=== PATIENT | male | born 1935 | race Caucasian/White ===

== ENCOUNTER 2016-04-18 15:12 | Inpatient (IN) | payer MEDICARE ==
[~2016-04-18] VITALS: Ht 162.6 cm; Wt 84.2 kg
[~2016-04-18 15:12] MED LIST: /ISOS5TA OR; ACET-654 PO; ACET65TA OR; ADV500INH INH; ALBU17IN INH; ALLO300T PO; AMBI10TA OR; AMBI10TA PO; AMLO10TAB OR; ASPI81TA83 OR; ASPI81TA85 PO; ATIV0.5T OR; CALC600T3 PO; CALCITRIOL PO; CAND16TA OR; CLON0.3T OR; CLOP75TA2 PO; COMBAER6 INH; COZA100T OR; COZA50TA18 OR; DOCU10CA PO; DULCOLAX SUPPOSITORY PR; FEBU40TA PO; FLUC10TA PO; GABA-279 PO; GLIP5TAB2 OR; HEPA50VL SQ; INSUDET SC; ISOS1TAB13 PO; LASI40TA OR; LASI40TA PO; LATA5OPD OU; LEVE1INJ5 SC; LIPI20TA OR; LIPI20TA PO; LOPR1TAB6 PO; LOPR50TA OR; LOSA50TA20 PO; MAALSUS OR; MECL12.5 OR; METO25TAB PO; METO50TA2 PO; MILKSUS OR; NORC5TAB PO; NORV5TAB PO; OMEP20CA3 PO; OMEP20TA7 OR; OMEP40CA2 PO; PEG1POW PO; PLAV75TA2 OR; PRED5PAK PO; PROT1TAB2 PO; SPIR1CAP INH; STARLIX PO; TIMO5OPD OU; TIMOLOL MALEATE OU; TOPR50TA OR; TYLE325T5 PO; ULORIC PO; VITA50003 PO; VITAMIN D50000 UNT OR; VITMTA PO; VYTO10TA5 PO; [UNRECOGNIZED DRUG - CODE] OR; sodium bicarbonate PO; xalatan OU
[2016-04-18] MEDS ORDERED: MORPHINE 2 MG/ML 1ML SYRINGE As Ordered ONE (16:13)
[2016-04-18] MEDS ORDERED: IPRATROPIUM 0.5MG/ALBUTEROL 2.5MG INH SOL UD 3ML (DUONEB)(J7620) As Ordered ONE ×2 (16:26→18:06)
[2016-04-18 16:27] LABS: BASO % 0.1 % (0.0-1.0); EOS # 0.2 K/mm3 (0.0-0.50); EOS % 1.6 % (0.0-3.0); LARGE UNSTAINED CELL # 0.2 K/mm3 (0.0-0.4); LARGE UNSTAINED CELL % 1.5 % (0.0-4.0); LYMPH # 0.7 K/mm3 (1.5-4.5); LYMPH % 5.7 % (24.0-44.0); MEAN CORPUSCULAR HEMOGLOBIN 32.2 pg (27.0-33.0); MEAN CORPUSCULAR HGB CONC 30.6 g/dl (32.0-36.5); MEAN CORPUSCULAR VOLUME 105.3 fl (80.0-96.0); MONO # 0.7 K/mm3 (0.0-0.8); MONO % 5.4 % (0.0-5.0); NEUTROPHILS % 85.7 % (36.0-66.0); PLATELET COUNT, AUTOMATED 178 k/mm3 (150-450); RED CELL DISTRIBUTION WIDTH 15.4 % (11.5-14.5); WHITE BLOOD COUNT 12.8 K/mm3 (4.0-10.0)
--- NOTE | 2016-04-18 16:56 | REP ---
CT CHEST: HISTORY: Dyspnea. No contrast was utilized which decreases the sensitivity of the exam. Comparison chest CT 11/13/2004 from [facility]. The lack of intravenous contrast decreases the sensitivity of the examination. There is no gross mediastinal or hilar adenopathy or significant change from the prior exam. There are no pleural or pericardial effusions. The imaged upper abdomen shows cholelithiasis. Calcific atherosclerotic changes are seen in the thoracic aorta and aortic arch vessels. Bone window technique throughout the examination shows the osseous structures to be within normal limits for the patient's age of 80 years. Evaluation of the lung scott show respiratory motion artifact throughout the exam obscuring the fine detail. There is evidence of biapical pleural blebs, right greater than left, status quo. Asymmetric basilar densities are seen bilaterally and rather heavily and in conjunction with motion artifact; a significant nodule or abnormality opacity could be obscured. There is no evidence of a spiculated lesion. A small amount of soft tissue density is seen in the dependent portion of the trachea consistent with mucoid debris. IMPRESSION: 1. Chronic lung field findings and limitations as described above. 2. Cholelithiasis. 3. Other findings as described above. Signed by Fidel Pedroza DO 04/22/2016 10:19 A
--- NOTE | 2016-04-18 17:13 | REP ---
CT THORACIC SPINE WITHOUT CONTRAST: HISTORY: Trauma. There is no acute fracture or subluxation. There is no definite disc bulge or herniation. The spinal canal and the neural foramina are patent. Anterior osteophytes are present throughout the thoracic spine. IMPRESSION: There is no acute fracture or subluxation. Signed by Alin Luke MD 04/21/2016 08:13 A
[2016-04-18 17:25] LABS: CREATININE FOR GFR 3.99 MG/DL (0.70-1.30); GLOMERULAR FILTRATION RATE 15.5 (>35); POTASSIUM SERUM 4.2 MEQ/L (3.5-5.1)
--- NOTE | 2016-04-18 17:58 | REP ---
CT lumbosacral spine without contrast, 04/18/2016: Indication: Trauma. Comparison: CT abdomen and pelvis, 03/31/2016. Technique : 4 mm reconstructed contiguous spiral axial sections performed through the lumbosacral spine from mid body T12 through proximal to mid sacrum. Sagittal and coronal reconstructed images were also created. Findings: There is no fracture in the lumbosacral spine. Moderate to advanced degenerative disc changes noted at L4-5 with moderate disc space narrowing, vacuum disc phenomena, anterior and right lateral bridging marginal osteophytes. 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 There is a 3 mm anterolisthesis L4 on L5. There is no spondylolysis at this level. There is a fusiform distal abdominal aortic aneurysm, which measures 3.9 cm AP by 3.5 cm transverse dimension at the L4 level with tapering to the iliac bifurcation. Moderate diffuse atherosclerotic changes are noted in the aorta and in the mesenteric arteries, especially superior mesenteric artery, which may have a stent, and in the iliac arteries. There is no visualized retroperitoneal hematoma. There is a 3 cm cyst off the medial lower pole right kidney. Multiple layering calculi are present within the gallbladder lumen. Impression: 3.9 x 3.5 cm distal fusiform abdominal aortic aneurysm, with tapering to the iliac bifurcation. There is no retroperitoneal hematoma. No acute fracture in lumbosacral spine. Moderate to advanced degenerative disc changes at L4-5. There is 3 mm anterolisthesis L4 on L5. Cholelithiasis. Signed by Clementine Puente MD 04/19/2016 03:43 P
[2016-04-18] MEDS ORDERED: methylPREDNISolone INJ 125 MG/2 ML VIAL (J2930) As Ordered ONE (18:01)
[2016-04-18] MEDS ORDERED: FLUC200T2 PO (19:48)
[2016-04-18] MEDS ORDERED: CLOP75TA2 PO (19:48)
[2016-04-18] MEDS ORDERED: METO50TA2 PO (19:50)
[2016-04-18] MEDS ORDERED: GABA-279 PO (19:50)
[2016-04-18] MEDS ORDERED: VITMTA PO (19:50)
[2016-04-18] MEDS ORDERED: MIRA3350 PO (19:50)
[2016-04-18] MEDS ORDERED: PRED5TA PO (19:50)
[2016-04-18] MEDS ORDERED: METO5TAB2 PO (19:54)
[2016-04-18] MEDS ORDERED: zolPIDEM TARTRATE 10MG TAB PO PRN (20:30)
[2016-04-18] MEDS ORDERED: ACETAMINOPHEN TAB 650MG DOSE (2X325MG) PO PRN (20:30)
[2016-04-18] MEDS ORDERED: GLUCOSE 4 GM CHEW TABLET PO PRN (21:00)
[2016-04-18] MEDS: HumaLOG INSULIN (NovoLOG) PER UNIT SC SCH (21:00)
[2016-04-18] MEDS ORDERED: DEXTROSE 50% 50 ML SYRINGE IV PRN (21:00)
[2016-04-18] MEDS ORDERED: GLUCAGON FOR INJ 1 MG VIAL (J1610) SC PRN (21:00)
--- NOTE | 2016-04-18 21:28 | EDDOCDS ---
Nurse's Notes [facility] Name: Nnamdi Rodriguez Age: 80 yrs Sex: Male : 1935 Arrival Date: 04/18/2016 Time: 15:12 Bed 17 Private MD: Daisha Bass P Diagnosis: Chronic obstructive pulmonary disease with (acute) exacerbation;Contusion of back wall of thorax;Abdominal aortic aneurysm, without rupture Presentation: 04/18 15:14 Presenting complaint: Patient states: states hemodialysis patient and developed SOB jmk during treatment today. Adult Sepsis Screening: The patient does not have new or worsening altered mentation. Patient's respiratory rate is less than 22. Systolic blood pressure is greater than 100. Patient has a qSOFA score of 0- Negative Sepsis Screen. Suicide/Homicide risk assessment- the patient denies having any suicidal and/or homicidal ideations and does not present with any other emotional, behavioral or mental health complaints. Status: Patient is not a creative services specialist or dependent. Transition of care: patient was not received from another setting of care. 15:14 Acuity: SUJEY Level 3 [facility] 15:14 Method Of Arrival: Ambulance [facility] Triage Assessment: 15:22 General:. [facility] Historical: - Allergies: no known allergies; - Home Meds: 1. atorvastatin 20 mg oral tab 1 tab once daily (Last dose: 04/17/2016) 2. polyethylene glycol 3350 17 gram oral pwpk 1 packet once daily 3. prednisone 10 mg Oral tab once daily 4. fluconazole 100 mg Oral tab 1 tab once daily 5. gabapentin 100 mg Oral tab twice a day 6. clopidogrel 75 mg oral tab 7. hydrocodone-acetaminophen 5-325 mg Oral tab every 6 hours 8. zolpidem 10 mg Oral tab 1 tab once daily 9. atorvastatin 20 mg oral tab 1 tab once daily 10. Augmentin 875-125 mg Oral tab 1 tab every 12 hours 11. Uloric 40 mg oral tab 1 tab once daily 12. pantoprazole 40 mg oral TbEC 1 tab 2 times per day 13. metoprolol tartrate 50 mg Oral tab 1 tab 2 times per day 14. Doc-Q-Lace 100 mg oral cap 1 cap 2 times per day 15. doxycycline hyclate 100 mg Oral cap 1 cap every 12 hours 16. LEVEMIR twice a day 17. Spiriva with HandiHaler 18 mcg Inhl CpDv 1 cap once daily - PMHx: Chronic Renal Failure with dialysis; COPD; Diabetes - IDDM: uncontrolled; GERD; Hypercholesterolemia; Hypertension; [place]; - PSHx: cardiac stents.; Dialysis Graft Construction, Arm; - Social history: Smoking status: Patient states former smoker of tobacco. No barriers to communication noted, The patient speaks fluent Pashto. - Family history: Not pertinent. - : The pt / caregiver states he / she is not on anticoagulants. Home medication list is obtained from patients' pharmacy. - Exposure Risk Screening:: None identified. Screenin:26 Screening information is obtained from the patient. Fall risk: At risk due to age. jmk Assistance ADL's: Requires assistance with housework, assistance is provided by. Abuse/DV Screen: The patient / caregiver reports he/she is:. Nutritional screening: No deficits noted. Advance Directives: Currently, there is a health care proxy, marcos rodriguez, daughter. There is an active DNR order There is no living will. There is no Power of Field Education Coordinator. home support is adequate. Assessment: 15:26 General: Appears in no apparent distress, appears unkempt. responses gruffly spoken. jmk Did receive neb en route. reports sputum as dark batista in color. Speech is uninterrupted by resp effort. Decreased breath sounds bilaterally. No peripheral edema noted. Obese abdomen that is non distended with bowel sounds present x 4.Monitor is SR without ectopy.. Cardiovascular: Capillary refill < 3 seconds Clubbing of nail beds Heart tones S1 S2 present Edema is 1+ to left ankle and right ankle Chest pain is denied. Respiratory: Airway is patent Respiratory effort is even, unlabored, Respiratory pattern is regular, Breath sounds are diminished in left posterior lower lobe and right posterior lower lobe. 15:32 General: Appears Harsh congested cough noted that is presently non productive. dialysis jmk graft with + thrill to left upper arm. dressing intact over recent access.. 16:52 General: Appears Overall presentation unchanged. without work of breathing.. decreased jmk breath sounds bilaterally persist. Monitor is sr. Presently with sao2 95% 2lnc. denies pain. 18:07 General: Appears diet provided and is receptive. resistant to potential discharge.. jmk 18:55 General: Appears diet provided and taken fair. ambulated short distance. gait unsteady jmk with walker and fatigues with activity. Repeats that he does not feel comfortable with potential discharge. Maintained sat of 91% with 2 l nc during physical activity. provider aware.. 19:23 General: Appears in no apparent distress, comfortable, Behavior is appropriate for age, kmg1 Sitting in chair in room. Respiratory: Airway is patent Respiratory effort is even, unlabored, Respiratory pattern is regular, symmetrical. 19:36 General: Assisted patient back to stretcher per his request. kmg1 20:58 General: Appears in no apparent distress, unkempt, Behavior is appropriate for age, jo3 cooperative. General: Awaiting admission to [address] [place] [address] at this time. Aware of plan of care . Neurological: Level of Consciousness is awake, alert, Oriented to person, place, time. Cardiovascular: Chest pain is denied. Respiratory: Airway is patent Respiratory effort is even, unlabored, Respiratory pattern is regular, symmetrical. 21:21 Reassessment: Patient appears in no apparent distress at this time. Resting quietly on kmg1 stretcher. Ready for move to floor. Vital Signs: 15:23 BP 129 / 59 RA Sitting (auto/reg); Pulse 92; Resp 16; Temp 99.3(TE); Pulse Ox 99% on jrd R/A; Weight 86.18 kg (R); Height 5 ft. 4 in. (162.56 cm) (R); Pain 2/10; 15:36 Pulse 64 MON; jo3 18:50 BP 107 / 45 (auto/); jo3 18:50 Pulse 90 MON; Pulse Ox 79% ; jo3 19:56 Pulse Ox 95% ; jo3 20:47 Pulse 90 MON; jo3 20:57 BP 133 / 60; Pulse 88; Resp 18; Temp 99.2(TE); Pulse Ox 95% ; jo3 21:21 BP 115 / 64; Pulse 86; Resp 18; Pulse Ox 96% on 2 lpm NC; kmg1 15:23 Body Mass Index 32.61 (86.18 kg, 162.56 cm) jrd 15:23 Pain in the feet jrd Vitals: 21:01 Log In Time N/A - ambulance arrival. jo3 ED Course: 15:13 Patient visited by Angela Quintanilla, Animal Caregiver. lbd 15:13 Daisha Bass is Private Physician. lbd 15:13 Patient moved to Waiting lbd 15:14 Patient moved to 17 lbd 15:15 Triage Initiated jmk 15:21 Nando Rogers MD is Attending Physician. br1 15:24 Patient visited by Jonathan Murphy PCA. jrd 15:26 The patient / caregiver is instructed regarding the plan of care and ED course. Cardiac jmk monitor on. 15:49 Patient visited by Nando Rogers MD. br1 16:03 B-Type Natiuretic Peptide Sent. jmk 16:03 Basic Metabolic Profile Sent. jmk 16:03 CBC with Diff Sent. jmk 16:03 Cardiac Injury Profile Sent. jmk 16:03 Troponin Sent. jmk 16:44 -Influenza A&B Rapid Antigen - Nose Sent. jmk 16:54 Patient visited by Grady Tao,PARRIS. jmk 17:02 CT Chest Without Contrast Returned. EDMS 17:45 Patient visited by Nando Rogers MD. br1 17:50 CT Spine,Thoracic W/o Contrast Returned. EDMS 18:04 [facility] Payment Agreement was scanned into [employer] and attached to record. zo 18:20 Patient visited by Grady Tao,PARRIS. jmk 18:38 CT Spine, Lumbar W/o Contrast Returned. EDMS 19:07 Patient visited by Jaspal Floyd PCA. kb5 19:08 Carin Maradiaga, RN is Primary Nurse. kmg1 19:25 Patient visited by Carin Maradiaga, PARRIS. kmg1 19:33 Dottie Suggs is Hospitalizing Provider. br1 20:06 Patient visited by Jaspal Floyd PCA. kb5 20:58 Patient visited by Paola Hood RN. jo3 20:59 Inserted saline lock: 20 gauge in right antecubital area Inserted prior to this PARRIS reyes giving care. No procedures done that require assistance. 21:01 Patient visited by Paola Hood RN. jo3 21:02 Patient visited by Jaspal Floyd PCA. kb5 Administered Medications: 16:40 Drug: Albuterol-Ipratropium 3 ml [ipratropium-albuterol 0.5 mg-3 mg(2.5 mg base)/3 mL rs5 nebulization soln (3 mL)] Route: Inhalation; 16:44 Not Given (denies pain presently): morphine 2 mg IVP once; prn pain k 18:06 Drug: Solu-MEDROL 125 mg [Solu-Medrol 500 mg intravenous solution (125 mg)] Route: IVP; [facility] Site: right antecubital; 18:12 Drug: Albuterol-Ipratropium 3 ml [ipratropium-albuterol 0.5 mg-3 mg(2.5 mg base)/3 mL cs15 nebulization soln (3 mL)] Route: Inhalation; RT: 16:40 Initial Med Neb Given as ordered Patient was instructed and evaluated on procedure rs5 Patient tolerated procedure well without adverse effect. Respiratory: Respiratory effort is even, unlabored, Respiratory pattern is regular symmetrical, Breath sounds are diminished bilaterally. 18:12 Subsequent Med Neb Given as ordered. Respiratory: Breath sounds with rhonchi in left cs15 upper lobe and left lower lobe Breath sounds are diminished bilaterally. Order Results: Lab Order: B-Type Natiuretic Peptide; SPEC'M 04/18/16 16:01 Test: BRAIN NATRIURETIC PEPTIDE; Value: 398; Range: <100; Abnormal: Above high normal; Units: PG/ML; Status: F Lab Order: Basic Metabolic Profile; SPEC'M 04/18/16 16:42 Test: GLUCOSE, FASTING; Value: 147; Range: 83-110; Abnormal: Above high normal; Units: MG/DL; Status: F Test: BLOOD UREA NITROGEN; Value: 22; Range: 7-18; Abnormal: Above high normal; Units: MG/DL; Status: F Test: CREATININE FOR GFR; Value: 3.99; Range: 0.70-1.30; Abnormal: Above high normal; Units: MG/DL; Status: F Test: GLOMERULAR FILTRATION RATE; Value: 15.5; Range: >35; Abnormal: Below low normal; Status: F Test: SODIUM LEVEL; Value: 136; Range: 136-145; Units: MEQ/L; Status: F Test: POTASSIUM SERUM; Value: 4.2; Range: 3.5-5.1; Units: MEQ/L; Status: F Test: CHLORIDE LEVEL; Value: 100; Range: 98-107; Units: MEQ/L; Status: F Test: CARBON DIOXIDE LEVEL; Value: 22; Range: 21-32; Units: MEQ/L; Status: F Test: ANION GAP; Value: 14; Range: 8-16; Units: MEQ/L; Status: F Test: CALCIUM LEVEL; Value: 9.0; Range: 8.8-10.2; Units: MG/DL; Status: F Test Note: ; Units are mL/min/1.73 m2 Chronic Kidney Disease Staging per NKF: Stage I & II GFR >=60 Normal to Mildly Decreased Stage III GFR 30-59 Moderately Decreased Stage IV GFR 15-29 Severely Decreased Stage V GFR <15 Very Little GFR Left ESRD GFR <15 on CYBER SYSTEMS ENGINEER Lab Order: CBC with Diff; SPEC'M 04/18/16 16:01 Test: WHITE BLOOD COUNT; Value: 12.8; Range: 4.0-10.0; Abnormal: Above high normal; Units: K/mm3; Status: F Test: RED BLOOD COUNT; Value: 3.65; Range: 4.30-6.10; Abnormal: Below low normal; Units: M/mm3; Status: F Test: HEMOGLOBIN; Value: 11.8; Range: 14.0-18.0; Abnormal: Below low normal; Units: g/dl; Status: F Test: HEMATOCRIT; Value: 38.4; Range: 42.0-52.0; Abnormal: Below low normal; Units: %; Status: F Test: MEAN CORPUSCULAR VOLUME; Value: 105.3; Range: 80.0-96.0; Abnormal: Above high normal; Units: fl; Status: F Test: MEAN CORPUSCULAR HEMOGLOBIN; Value: 32.2; Range: 27.0-33.0; Units: pg; Status: F Test: MEAN CORPUSCULAR HGB CONC; Value: 30.6; Range: 32.0-36.5; Abnormal: Below low normal; Units: g/dl; Status: F Test: RED CELL DISTRIBUTION WIDTH; Value: 15.4; Range: 11.5-14.5; Abnormal: Above high normal; Units: %; Status: F Test: PLATELET COUNT, AUTOMATED; Value: 178; Range: 150-450; Units: k/mm3; Status: F Test: NEUTROPHILS %; Value: 85.7; Range: 36.0-66.0; Abnormal: Above high normal; Units: %; Status: F Test: LYMPH %; Value: 5.7; Range: 24.0-44.0; Abnormal: Below low normal; Units: %; Status: F Test: MONO %; Value: 5.4; Range: 0.0-5.0; Abnormal: Above high normal; Units: %; Status: F Test: EOS %; Value: 1.6; Range: 0.0-3.0; Units: %; Status: F Test: BASO %; Value: 0.1; Range: 0.0-1.0; Units: %; Status: F Test: LARGE UNSTAINED CELL %; Value: 1.5; Range: 0.0-4.0; Units: %; Status: F Test: NEUTROPHILS #; Value: 11.0; Range: 1.8-7.7; Abnormal: Above high normal; Units: K/mm3; Status: F Test: LYMPH #; Value: 0.7; Range: 1.5-4.5; Abnormal: Below low normal; Units: K/mm3; Status: F Test: MONO #; Value: 0.7; Range: 0.0-0.8; Units: K/mm3; Status: F Test: EOS #; Value: 0.2; Range: 0.0-0.50; Units: K/mm3; Status: F Test: BASO #; Value: 0.0; Range: 0.0-0.2; Units: K/mm3; Status: F Test: LARGE UNSTAINED CELL #; Value: 0.2; Range: 0.0-0.4; Units: K/mm3; Status: F Lab Order: Cardiac Injury Profile; SPEC'M 04/18/16 16:42 Test: CPK CREATINE PHOSPHOKINASE; Value: 45; Range: 39-308; Units: U/L; Status: F Test: CK-MB VALUE MASS; Value: 1.0; Range: 0.0-3.6; Units: NG/ML; Status: F Test: MB/CK RELATIVE INDEX; Value: 2.22; Range: < OR =4; Status: F Test Note: ; DIAGNOSIS CRITERIA MMB ng/ml Relative Index (RI) NON-AMI < or = 5 N/A WORKMAN ZONE > 5 < or = 4 AMI > 5 > 4 Lab Order: Troponin; SPEC'M 04/18/16 16:42 Test: TROPONIN I; Value: 0.02; Range: < 0.10; Units: NG/ML; Status: F Test Note: ; Troponin I Reference Interval for [employer] [place] LOCI: 99th Percentile= 0.00-0.045 ng/ml Risk Stratification: <= 0.10 ng/ml Decreased Risk for Adverse Clinical Events. 0.10-1.50 ng/ml Increased Risk for Adverse Clinical Events. Evaluation of additional criterion and/or repeat testing in 2-6 hours is suggested to rule out myocardial damage. >= 1.50 ng/ml Indicative of Myocardial Injury. Lab Order: -Influenza A&B Rapid Antigen - Nose; SPEC'M 04/18/16 16:40 Test: INFLUENZA A RAPID SCR by ICA; Value: INFLUENZA A RESULTS NEGATIVE; Status: F Test: INFLUENZA A RAPID SCR by ICA; Value: Comments:; Status: F Test: INFLUENZA B RAPID SCR by ICA; Value: INFLUENZA B RESULTS NEGATIVE; Status: F Test Note: ; The Influenza test is a direct rapid immunoassay for the qualitative detection of Influenza viral antigen. Cell culture (Viral Culture) testing should be considered to confirm NEGATIVE results and to assist in detecting other viruses that can provide similar clinical symptoms. Please contact the lab within 24 hours ([phone]) if confirmatory testing is desired. Radiology Order: CT Chest Without Contrast Test: CT Chest Without Contrast REASON FOR EXAMINATION: Shortness of Breath; ; CT CHEST:; ; HISTORY: Dyspnea.; ; No contrast was utilized which decreases the sensitivity of the exam.; ; Comparison chest CT 11/13/2004 from [facility].; ; The lack of intravenous contrast decreases the sensitivity of the examination.; There is no gross mediastinal or hilar adenopathy or significant change from the; prior exam. There are no pleural or pericardial effusions. The imaged upper; abdomen shows cholelithiasis. Calcific atherosclerotic changes are seen in the; thoracic aorta and aortic arch vessels. Bone window technique throughout the; examination shows the osseous structures to be within normal limits for the; patient's age of 80 years.; ; Evaluation of the lung scott show respiratory motion artifact throughout the; exam obscuring the fine detail. There is evidence of biapical pleural blebs,; right greater than left, status quo. Asymmetric basilar densities are seen; bilaterally and rather heavily and in conjunction with motion artifact; a; significant nodule or abnormality opacity could be obscured. There is no evidence; of a spiculated lesion. A small amount of soft tissue density is seen in the; dependent portion of the trachea consistent with mucoid debris.; ; IMPRESSION:; 1. Chronic lung field findings and limitations as described above.; 2. Cholelithiasis.; 3. Other findings as described above.; ; Unreviewed; Radiology Order: CT Spine,Thoracic W/o Contrast Test: CT Spine,Thoracic W/o Contrast REASON FOR EXAMINATION: Trauma; ; CT THORACIC SPINE WITHOUT CONTRAST:; ; HISTORY: Trauma.; ; There is no acute fracture or subluxation. There is no definite disc bulge or; herniation. The spinal canal and the neural foramina are patent. Anterior; osteophytes are present throughout the thoracic spine.; ; IMPRESSION:; There is no acute fracture or subluxation.; ; Unreviewed; Radiology Order: CT Spine, Lumbar W/o Contrast Test: CT Spine, Lumbar W/o Contrast REASON FOR EXAMINATION: Trauma; CT lumbosacral spine without contrast, 04/18/2016:; ; Indication: Trauma.; ; Comparison: CT abdomen and pelvis, 03/31/2016.; ; Technique : STIR reconstructed contiguous spiral axial sections performed; through the lumbosacral spine from mid body T12 through proximal to mid sacrum.; Sagittal and coronal reconstructed images were also created.; ; Findings: There is a fracture in the lumbosacral spine. Moderate to advanced; degenerative disc changes noted L4-5 with moderate disc space narrowing, vacuum; disc phenomena, anterior and right lateral bridging marginal osteophytes. There; is moderate to advanced bilateral facet osteoarthritis at this level. There is a; 3 mm anterolisthesis L4 on L5. There is no spondylolysis at this level.; ; There is a fusiform distal abdominal aortic aneurysm, which measures 3.9 cm AP by; 3.5 cm transverse dimension at the L4 level with tapering to the iliac; bifurcation. Moderate diffuse atherosclerotic changes are noted in the aorta and; in the mesenteric arteries, especially superior mesenteric artery and in the; iliac arteries. There is no visualized retroperitoneal hematoma.; ; There is a 3 cm cyst off the medial lower pole right kidney. Multiple layering; calculi are present within the gallbladder lumen.; ; Impression:; 3.9 x 3.5 cm distal fusiform abdominal aortic aneurysm, tapering to the iliac; bifurcation. There is no retroperitoneal hematoma. No acute fracture.; ; Moderate to advanced degenerative disc changes at L4-5. There is 3 mm; anterolisthesis L4 on L5.; ; Cholelithiasis.; ; ; ; ; Unreviewed; Outcome: 19:33 Decision to Hospitalize by Provider. br1 20:59 Discharge Assessment: Patient awake, alert and oriented x 3. No cognitive and/or jo3 functional deficits noted. Patient verbalized understanding of disposition instructions. patient administered narcotics - no. The following High Risk Discharge criteria are identified: None. Admitted to Med/Surg accompanied by tech, via stretcher, with chart. Condition: stable. 21:01 CT Study completed. Property :Personal belongings accompany Pt. jo3 21:27 Patient left the ED. kmg1 Signatures: Dispatcher [employer] EDMS Angela Quintanilla, Animal Caregiver Unit lbd Carin Maradiaga, RN RN km Grady Tao,PARRIS RN Paola Painting RN RN jo3 Chuy Saavedra Kristopher, CHILD CARE TEAM LEAD CHILD CARE TEAM LEAD kb5 Nando Rogers MD MD br1 Kory Lloyd,RT RT rs5 Jonathan Murphy, CHILD CARE TEAM LEAD CHILD CARE TEAM LEAD d Kei Jordan,RT RT cs15 Corrections: (The following items were deleted from the chart) 20:58 18:50 BP 133 / 60; Pulse 88bpm; Resp 18bpm; Pulse Ox 95%; Temp 99.2F Temporal; jo3 jo3 MTDD
--- NOTE | 2016-04-18 21:28 | EDDOCDS ---
Physician Documentation [facility] Name: Nnamdi Rodriguez Age: 80 yrs Sex: Male : 1935 Arrival Date: 04/18/2016 Time: 15:12 Bed 17 Private MD: Daisha Bass P Disposition: 04/18/16 19:33 Hospitalization ordered by Dottie Suggs for Inpatient Admission. Preliminary diagnosis are Chronic obstructive pulmonary disease with (acute) exacerbation, Contusion of back wall of thorax, Abdominal aortic aneurysm, without rupture. - Bed requested for 5 [place]. - Status is Inpatient Admission. kmg1 - Condition is Stable. - Problem is new. - Symptoms are unchanged. Historical: - Allergies: no known allergies; - Home Meds: 1. atorvastatin 20 mg oral tab 1 tab once daily (Last dose: 04/17/2016) 2. polyethylene glycol 3350 17 gram oral pwpk 1 packet once daily 3. prednisone 10 mg Oral tab once daily 4. fluconazole 100 mg Oral tab 1 tab once daily 5. gabapentin 100 mg Oral tab twice a day 6. clopidogrel 75 mg oral tab 7. hydrocodone-acetaminophen 5-325 mg Oral tab every 6 hours 8. zolpidem 10 mg Oral tab 1 tab once daily 9. atorvastatin 20 mg oral tab 1 tab once daily 10. Augmentin 875-125 mg Oral tab 1 tab every 12 hours 11. Uloric 40 mg oral tab 1 tab once daily 12. pantoprazole 40 mg oral TbEC 1 tab 2 times per day 13. metoprolol tartrate 50 mg Oral tab 1 tab 2 times per day 14. Doc-Q-Lace 100 mg oral cap 1 cap 2 times per day 15. doxycycline hyclate 100 mg Oral cap 1 cap every 12 hours 16. LEVEMIR twice a day 17. Spiriva with HandiHaler 18 mcg Inhl CpDv 1 cap once daily - PMHx: Chronic Renal Failure with dialysis; COPD; Diabetes - IDDM: uncontrolled; GERD; Hypercholesterolemia; Hypertension; RI; - PSHx: cardiac stents.; Dialysis Graft Construction, Arm; - Social history: Smoking status: Patient states former smoker of tobacco. No barriers to communication noted, The patient speaks fluent Andorran. - Family history: Not pertinent. - : The pt / caregiver states he / she is not on anticoagulants. Home medication list is obtained from patients' pharmacy. - Exposure Risk Screening:: None identified. Vital Signs: 04/18 15:23 BP 129 / 59 RA Sitting (auto/reg); Pulse 92; Resp 16; Temp 99.3(TE); Pulse Ox 99% on jrd R/A; Weight 86.18 kg / 189.99 lbs (R); Height 5 ft. 4 in. (162.56 cm) (R); Pain 2/10; 15:36 Pulse 64 MON; jo3 18:50 BP 107 / 45 (auto/); jo3 18:50 Pulse 90 MON; Pulse Ox 79% ; jo3 19:56 Pulse Ox 95% ; jo3 20:47 Pulse 90 MON; jo3 20:57 BP 133 / 60; Pulse 88; Resp 18; Temp 99.2(TE); Pulse Ox 95% ; jo3 21:21 BP 115 / 64; Pulse 86; Resp 18; Pulse Ox 96% on 2 lpm NC; kmg1 15:23 Body Mass Index 32.61 (86.18 kg, 162.56 cm) jrd 15:23 Pain in the feet jrd MDM: 15:50 Analytical Sciences Director/Pulse Ox/q 30 min VS ordered. br1 15:50 IV Saline Lock ordered. br1 15:50 Rhythm Strip to chart ordered. br1 15:50 Undress patient appropriately for examination ordered. br1 15:51 Albuterol-Ipratropium 3 ml Inhalation once ordered. br1 15:51 Call Respiratory ordered. br1 15:51 ECG WITH READING ER PHYS+CARDIAG ordered. EDMS 15:52 B-Type Natiuretic Peptide Ordered. EDMS 15:52 Basic Metabolic Profile Ordered. EDMS 15:52 CBC with Diff Ordered. EDMS 15:52 Cardiac Injury Profile Ordered. EDMS 15:52 Troponin Ordered. EDMS 15:52 morphine 2 mg IVP once; prn pain ordered. br1 15:52 CT Chest Without Contrast Ordered. EDMS 15:52 CT Spine,Thoracic W/o Contrast Ordered. EDMS 15:52 CT Spine, Lumbar W/o Contrast Ordered. EDMS 16:07 Call Respiratory complete. lbd 16:38 CBC with Diff Reviewed. br1 16:38 -Influenza A&B Rapid Antigen - Nose Ordered. EDMS 17:12 REGULAR+DIET ordered. EDMS 17:21 Financial registration complete. zo 17:36 B-Type Natiuretic Peptide Reviewed. br1 17:36 Basic Metabolic Profile Reviewed. br1 17:36 Cardiac Injury Profile Reviewed. br1 17:36 Troponin Reviewed. br1 17:36 -Influenza A&B Rapid Antigen - Nose Reviewed. br1 17:36 CT Chest Without Contrast Reviewed. br1 17:45 [facility] Pulse Oximetry ordered. br1 17:57 Albuterol-Ipratropium 3 ml Inhalation once ordered. br1 17:57 Solu-MEDROL 125 mg IVP once ordered. br1 18:04 [facility] Payment Agreement was scanned into [employer] and attached to record. zo 18:54 BED REQUEST+ADM ordered. EDMS 20:24 COMPLETE BLOOD COUNT Ordered. EDMS 20:24 BASIC METABOLIC PROFILE Ordered. EDMS 20:25 PHYSICAL THERAPY EVAL & TREAT ordered. EDMS 20:26 Admission / Observation Status ordered. EDMS 20:26 CONSISTENT CARBOHYDRATES ordered. EDMS 20:41 LACTIC ACID LEVEL, LACTATE Ordered. EDMS 20:41 C REACTIVE PROTEIN QUANTITATIV Ordered. EDMS 20:42 URINALYSIS Ordered. EDMS 20:42 BLOOD CULTURES Ordered. EDMS 20:42 BLOOD CULTURES Ordered. EDMS 20:42 SPUTUM CULTURE AND GRAM STAIN Ordered. EDMS 20:47 C REACTIVE PROTEIN QUANTITATIV Ordered. EDMS 20:47 FOLATE Ordered. EDMS Administered Medications: 16:40 Drug: Albuterol-Ipratropium 3 ml [ipratropium-albuterol 0.5 mg-3 mg(2.5 mg base)/3 mL rs5 nebulization soln (3 mL)] Route: Inhalation; 16:44 Not Given (denies pain presently): morphine 2 mg IVP once; prn pain jmk 18:06 Drug: Solu-MEDROL 125 mg [Solu-Medrol 500 mg intravenous solution (125 mg)] Route: IVP; k Site: right antecubital; 18:12 Drug: Albuterol-Ipratropium 3 ml [ipratropium-albuterol 0.5 mg-3 mg(2.5 mg base)/3 mL cs15 nebulization soln (3 mL)] Route: Inhalation; Signatures: Dispatcher [employer] EDMS Angela Quintanilla, Director And Professor Unit steward health care system Carin Maradiaga RN RN aurelia Grady Tao RN Lydia Elizabeth, RN Chuy eBnitez Brian, MD MD br1 Kory Lloyd RT rs5 Kei Jordan RT cs15 The chart was reviewed and I authenticate all verbal orders and agree with the evaluation and treatment provided.Corrections: (The following items were deleted from the chart) 20:44 20:42 FOLATE ordered. EDMS EDMS 20:45 20:45 C REACTIVE PROTEIN QUANTITATIV ordered. EDMS EDMS 20:45 20:45 C REACTIVE PROTEIN QUANTITATIV ordered. EDMS EDMS 20:45 20:45 FOLATE ordered. EDMS EDMS 20:45 20:45 FOLATE ordered. EDMS EDMS Attachments: 18:04 [facility] Payment Agreement zo MTDD
[2016-04-18 22:00] VITALS: BP 121/85
[2016-04-18] MEDS ORDERED: AZITHROMYCIN INJ 500 MG, VIAL MATE ADAPTER 1 EACH in D5W 250 ML IV SCH (22:00)
[2016-04-18] MEDS ORDERED: cefTRIAXone SOD 2 GM in D5W MINI-BAG PLUS 50 ML IV SCH (23:00)
--- NOTE | 2016-04-18 23:05 | HPE ---
DATE OF ADMISSION: 04/18/2016 PRIMARY CARE PROVIDER: Dr. Daisha Bass OUTPATIENT RADIO INSTALLER AUTOMOBILE: Dr. Bass CHIEF COMPLAINT: Worsening generalized weakness. HISTORY OF THE PRESENT ILLNESS: The patient is an 80-year-old male with a past medical history significant for end-stage renal disease, on hemodialysis, congestive heart failure with an ejection fraction (EF) 55%, chronic obstructive pulmonary disease (COPD), history of coronary artery disease, status post stent, chronic anemia, hypertension, insulin-dependent diabetes, gastroesophageal reflux disease (GERD), hyperlipidemia, gout, presented to [facility] after dialysis due to worsening of generalized weakness. The patient was recently hospitalized from 03/31/2016 to 04/11/2016 for acute respiratory distress, and the patient has been on antibiotic and antifungal for his respiratory symptoms. He stated his respiratory symptoms showed improvement throughout whole hospitalization. However, his physical activity level has not returned to his baseline due to generalized weakness. After the discharge, the patient stated his physical condition started to deteriorate, and he became less and less active. He also noted to have increased chest congestion. His dialysis was scheduled on Thursday, and Thursday. Due to the weather, he missed dialysis on ; therefore, he had to catch up dialysis on Thursday, which is today. During dialysis, he barely tolerated the session, and even fell on the ground when he tried to get out of the car and he could not get out by himself. Therefore, the patient was sent from dialysis center to the [facility] for further evaluation. Per patient, the patient stated after discharge, he denies increased cough severity or frequency, still having intermittent cough with yellowish sputum. However, the amount of sputum production is much less than before. He has an appointment with a vascular surgeon for his right gangrenous toe, and he had an appointment on 05/05/2016 in [place]. ALLERGIES: No known allergies. HOME MEDICATIONS: - Tylenol 325 mg by mouth every 4 hours as needed - [place] 5/325 one tablet by mouth every 6 hours as needed - Combivent one puff inhalation four times a day - aspirin 81 mg by mouth daily - Lipitor 20 mg by mouth daily - calcium carbonate 600 mg by mouth three times a day - Plavix 75 mg by mouth daily - vitamin D 50,000 units by mouth every month - Uloric 40 mg by mouth daily - fluconazole 200 mg by mouth daily for a 10-day supply starting on 04/11/2016. - insulin Levemir 20 units subcu twice a day - metoclopramide 5 mg by mouth three times a day as needed for nausea or vomiting - metoprolol tartrate 50 mg by mouth twice a day - multivitamin one tablet by mouth daily - Protonix 40 mg by mouth twice a day - MiraLAX 17 grams by mouth daily - prednisone on a tapering dose - Ambien 10 mg by mouth nightly as needed for insomnia PAST MEDICAL HISTORY: History of end-stage renal disease, on hemodialysis on Thursday, and Thursday. Systolic congestive heart failure. COPD on chronic 2 liters. History of coronary artery disease, status post stent. Recent history of non-ST elevation myocardial infarction (non-STEMI) and ventricular tachycardia. Chronic anemia. Hypertension. Type 2 insulin dependent diabetes. Gastroesophageal reflux disease. Hyperlipidemia. Gout. Glaucoma. Insomnia. PAST SURGICAL HISTORY: Cardiac stents times six near the end 2015. Dialysis graft placement construction. SOCIAL HISTORY: The patient quit smoking 15 years ago. He used to smoke for 60 years. Quit drinking 26 years ago, drank half a dozen per day previously. Denies any recreational drug use. The patient lives by himself. REVIEW OF SYSTEMS: GENERAL: Denies any fever or chills. Has recent hospitalization, just discharged on 04/11/2016. The patient complains about persistent and worsening generalized weakness. HEENT: No vision change. No auditory changes. CARDIOVASCULAR: No chest pain. No palpitations. History of coronary artery disease, status post stent near the end of 2015. History of ventricular tachycardia and non-STEMI. RESPIRATORY: Still has intermittent cough with yellowish sputum. The patient has been treated with IV antibiotics and antifungal during the last hospitalization. Currently still feels significant chest congestion. GASTROINTESTINAL: No nausea, no vomiting, no abdominal pain, no diarrhea. MUSCULOSKELETAL: Continues to have color changes of the tip of the toe. The patient has a vascular surgeon, 05/05/2016, in [place]. NEUROLOGICAL: No new neurological changes. PHYSICAL EXAMINATION: VITAL SIGNS: Blood pressure 129/59, pulse is 92, respirations 16, temperature is 99.3, pulse is 99, weight is 86 kg, body height is 162.56 cm. GENERAL: Fatigued, pale. Alert and oriented times three. HEENT: Normocephalic, atraumatic. Extraocular motor grossly intact. CARDIOVASCULAR: Distant heart sounds. Positive S1, S2, regular rate. LUNGS: Decreased breath sounds bilaterally. No significant crackles or wheezes could be appreciated. ABDOMEN: Multiple ecchymosis from the previous anticoagulation injection site. Abdomen is soft, nontender, nondistended. Bowel sounds present. LOWER EXTREMITIES: Positive edema bilaterally. Positive chronic venous stasis changes. Also gangrenous change of the bilateral toes. NEUROLOGICAL: Sensation to fine touch grossly intact. Muscle strength 5/5. LABORATORY DATA: WBC is 12.8, hemoglobin 11.8, hematocrit 38.4, platelet count is 178. Sodium 136, potassium 4.2, chloride is 100, carbon dioxide 22, BUN 22, creatinine is 3.9 and GFR is 15.5. Fasting glucose 147. Calcium is 9. Total CK is 45. Troponin I is 0.02. BNP is 398. Influenza is negative. IMAGING STUDIES: Chest x-ray without contrast showed chronic lung field findings. CT of the lumbar spine without contrast shows a 3.9 x 3.5 cm distal abdominal aortic aneurysm. No acute fractures. No retroperitoneal hematoma. Moderate advanced degenerative disc changes at L4-5. CT of the thoracic spine without contrast showed no acute fracture or subluxation. ASSESSMENT AND PLAN: 1. Generalized weakness. The patient will be admitted to medical-surgical floor under inpatient status. The patient was just recently discharged from the hospital on 04/11/2016, and the patient has worsening in his physical condition and today the patient actually had mildly elevated white blood cells (WBC) and mild elevated of his temperature. The patient has continued to have colored sputum. The patient was on prednisone in the past; however, his white count is within normal range with a combination of change in lab and the vital signs, we will culture the patient to rule out infectious causes. The patient does have chronic obstructive pulmonary disease (COPD), and there is a possibility the patient may have COPD exacerbation, and the patient also experienced physical deconditioning after discharge due to suboptimal care at home. We will consult physical therapy to evaluate and to treat the patient tomorrow. Last time sputum culture was obtained during the last hospitalization, the patient showed yeast-like organism and Serratia. We will continue to follow the repeated sputum cultures. 2. End-stage renal disease, on hemodialysis. The patient's original schedule is on Thursday, and Thursday; however, the patient missed hemodialysis on , therefore, he had to catch up dialysis today, which is Thursday. Will consult Dr. Bonilla, the field enumerator, for his dialysis management. 3. History of chronic systolic congestive heart failure. The patient has been managed by hemodialysis. Currently, the patient still shows no sign of fluid overload. There is elevated BNP. We appreciate nephrology's assistance. 4. Insulin dependent diabetes. On Levemir and sliding scale. Continue consistent carbohydrate diet. 5. Gastroesophageal reflux disease. Continue Protonix. 6. History of myocardial infarction (PR). The patient is status post cardiac stent in the end of 2015. The patient is on aspirin and Plavix. 7. Insomnia. On Ambien. 8. Peripheral arterial disease. Pt has appointment with vascular surgeon in [facility] on 05/05/16. 9. Bilateral dry gangrene of toes. Stable. Consider wound care consult 8. Deep vein thrombosis (DVT) prophylaxis. On heparin. MTDD
[2016-04-18] MEDS: PANTOPRAZOLE 40MG TAB (PROTONIX) PO SCH (23:15)
[2016-04-18] MEDS: GABAPENTIN 100 MG CAP PO SCH (23:15)
[2016-04-18] MEDS: HEPARIN SOD (PORCINE) 5000 UNITS/ML VIAL SC SCH (23:15)
[2016-04-18] MEDS: METOPROLOL TART 50 MG TAB PO SCH (23:17)
[2016-04-19 06:00] VITALS: BP 125/72
[2016-04-19] MEDS: HEPARIN SOD (PORCINE) 5000 UNITS/ML VIAL SC SCH ×3 (06:05→21:20)
[2016-04-19 06:59] LABS: MEAN CORPUSCULAR HEMOGLOBIN 32.2 pg (27.0-33.0); MEAN CORPUSCULAR HGB CONC 30.7 g/dl (32.0-36.5); MEAN CORPUSCULAR VOLUME 104.9 fl (80.0-96.0); RED CELL DISTRIBUTION WIDTH 15.4 % (11.5-14.5); WHITE BLOOD COUNT 12.2 K/mm3 (4.0-10.0)
[2016-04-19 07:14] LABS: CALCIUM LEVEL 8.8 MG/DL (8.8-10.2); CREATININE FOR GFR 5.61 MG/DL (0.70-1.30); GLOMERULAR FILTRATION RATE 10.5 (>35); POTASSIUM SERUM 4.7 MEQ/L (3.5-5.1)
[2016-04-19] MEDS: HumaLOG INSULIN (NovoLOG) PER UNIT SC SCH ×4 (07:30→21:00)
--- NOTE | 2016-04-19 08:36 | ECGEPIP ---
Stationary ECG Study [facility] - ED Test Date: 2016-04-18 Pat Name: EVE GANN Department: Room: - Gender: M Comber Operator: mathew : 1935 Requested By: EDI Olmedo Order Number: [id number] Reading MD: Lauren Vernon Measurements Intervals [place] Rate: 94 P: 16 OR: 198 QRS: 15 QRSD: 86 T: 35 QT: 317 QTc: 398 Interpretive Statements SINUS RHYTHM NONSPECIFIC ST & T-WAVE ABNORMALITY SIMILAR 04/01/16 Electronically Signed On 04-19-2016 8:36:30 EST by Lauren Vernon
[2016-04-19] MEDS ORDERED: VANCOMYCIN HCL 1,000 MG, VIAL MATE ADAPTER 1 EACH in D5W 250 ML IV ONE (09:00)
[2016-04-19] MEDS: METOPROLOL TART 50 MG TAB PO SCH ×2 (09:00→21:21)
[2016-04-19 09:36] LABS: ABG HCO3 25.3 MEQ/L (22.0-26.0); ABG PARTIAL PRESSURE CO2 43.8 mmHg (35.0-45.0); ABG PARTIAL PRESSURE O2 77.8 mmHg (75.0-100.0); ABG STANDARD HCO3 24.4 MEQ/L (22.0-26.0); ABG TOTAL CO2 26.6 MEQ/L (23.0-31.0); ABG pH (ARTERIAL) 7.379 UNITS (7.350-7.450)
[2016-04-19] MEDS: FLUCONAZOLE 100 MG TAB PO SCH (10:22)
[2016-04-19] MEDS: ATORVASTATIN 20 MG TAB PO SCH (10:23)
[2016-04-19] MEDS: ASPIRIN 81 MG ENTERIC TAB PO SCH (10:23)
[2016-04-19] MEDS: MULTIVITAMINS/MINERALS THERAP 1 TAB PO SCH (10:23)
[2016-04-19] MEDS: CLOPIDOGREL 75 MG TAB PO SCH (10:23)
[2016-04-19] MEDS: FEBUXOSTAT 40 MG TABLET (ULORIC) PO SCH (10:23)
[2016-04-19] MEDS: PANTOPRAZOLE 40MG TAB (PROTONIX) PO SCH ×2 (10:24→21:21)
[2016-04-19] MEDS: GABAPENTIN 100 MG CAP PO SCH ×2 (10:24→21:21)
[2016-04-19] MEDS ORDERED: LIDOCAINE 1% SDV 5 ML VIAL SC ONE (12:00)
[2016-04-19] MEDS ORDERED: HEPARIN 1,000 UNITS/ML 10ML VIAL (FOR RADIOLOGY& DIALYSIS ONLY) IV ONE (12:00)
[2016-04-19] MEDS ORDERED: DARBEPOETIN 100 MCG/0.5 ML *DIALYSIS* SYRINGE (J0882) IV SCH (12:15)
--- NOTE | 2016-04-19 13:37 | CR ---
DATE OF CONSULTATION: 04/19/2016 REQUESTING PHYSICIAN: Dr. Suzie Gardner CONSULTING PHYSICIAN: Dr. Bonilla REASON FOR CONSULTATION: Management of end stage renal disease and hemodialysis. CHIEF COMPLAINT: Patient presented to the emergency room yesterday after falling in the parking lot right after hemodialysis and he complained of generalized weakness. HISTORY OF PRESENT ILLNESS: Mr. Nnamdi Rodriguez is an 80-year-old male with past medical history of end stage renal disease on hemodialysis. His regular schedule is Thursday, and Thursday, but he missed 's dialysis so he was being dialyzed yesterday. After his dialysis session, the patient was walking to his car. While he was trying to get into his car, he felt very weak and he fell backwards. The patient was brought to the emergency room. Images were done. There was no evidence of fracture. The patient reported generalized worsening weakness so the patient was admitted yesterday for deterioration of physical condition. The patient was also complaining of intermittent cough with yellowish phlegm so pneumonia is being ruled out. Of note, the patient was recently discharged from the hospital one week ago and during that admission he was treated for respiratory distress, fluid overload and pneumonia. The patient was seen by me today in the morning at the bedside. He was eating his breakfast. He otherwise does not have any complaints at this time, but he reports that he is very weak and it is very difficult for him to walk. PAST MEDICAL HISTORY: 1. History of end stage of renal disease on hemodialysis every Thursday, and Thursday. 2. History of chronic obstructive pulmonary disease (COPD), on home oxygen at 2 liters. 3. Chronic systolic congestive heart failure. 4. History of coronary artery disease, status post stent. 5. 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 6. Hypertension. 7. Diabetes mellitus type 2. 8. History of gout secondary to end stage renal disease. 9. Gastroesophageal reflux disease. 10. Gangrene of the bilateral lower extremities toes after a recent cardiac catheterization. PAST SURGICAL HISTORY: 1. Status post cardiac stents times six, the latest one done in 2015. 2. Status post AV graft placement for dialysis. ALLERGIES: No known drug allergies. CURRENT INPATIENT MEDICATIONS: - Cefepime - vancomycin - Tylenol as needed - aspirin 81 mg - atorvastatin 20 mg - Plavix 75 mg - Uloric 40 mg - fluconazole 200 mg - gabapentin 100 mg twice a day - heparin subcutaneous - metoprolol 50 mg twice a day - Zofran as needed - Protonix 40 mg twice a day - MiraLAX as needed - Ambien as needed for insomnia HOME MEDICATIONS: Are all reviewed and apart from the above mentioned medications they also include: - Combivent inhaler - calcium carbonate 600 mg three times a day - vitamin D FAMILY HISTORY: No significant family history of end stage renal disease requiring hemodialysis. SOCIAL HISTORY: The patient is a former smoker. He is a former drinker as well , he quit about 26 years ago. He denies any recreational drug use. The patient lives alone. REVIEW OF SYSTEMS: CONSTITUTIONAL: Patient reports feeling very weak and fatigued with inability to walk. EYES: He denies any recent blurry vision or change in the vision recently. ENT: He denies any ear discharge, dysphagia, odynophagia, sore throat. CARDIOVASCULAR: He denies any chest pain, palpitations. He does have history of coronary artery disease. RESPIRATORY: Patient reports cough and yellowish phlegm. Recently treated with IV antibiotics and antifungal during admission two weeks ago. GASTROINTESTINAL (GI): He denies any nausea, vomiting, pain, or constipation. MUSCULOSKELETAL: He continues to have weakness of the lower extremities and inability to walk. He also has gangrene of the bilateral toes after a recent cardiac catheterization procedure. CENTRAL NERVOUS SYSTEM (TRAFFIC COURT MAGISTRATE): He denies any history of strokes or seizures, but he does report weakness. HEMATOLOGIC/ONCOLOGIC: He reports history of anemia secondary to end stage renal disease. ENDOCRINE: He reports history of diabetes type 2. SKIN: The patient has dry gangrene of the bilateral toes. PSYCHIATRIC: He denies history of anxiety or depression. All other review of systems was found to be negative. PHYSICAL EXAM: GENERAL: Patient is awake, alert, oriented times three, sitting in the bed having his breakfast. VITAL SIGNS: Temperature 98.3 degrees Fahrenheit, blood pressure 126/72, pulse 70, respiratory rate 18, saturating 95% on room air. INTAKE AND OUTPUT: Urine output is not recorded. Weight on the bed scale is 91 kg today. HEAD AND NECK EXAM: Extraocular muscles intact. Pupils equally round and reactive to light. Neck is supple. There is no jugular venous distention. CARDIOVASCULAR: S1, S2. Regular rate. No murmur, rub or gallop. RESPIRATORY: Decreased breath sounds at the bases. No rales or rhonchi. ABDOMEN: Soft. Positive bowel sounds. Multiple bruises on the abdomen because of previous heparin injections. No organomegaly. EXTREMITIES: Patient has dry gangrene of the multiple toes and bilateral lower extremities and he also has 1+ edema of the bilateral lower extremities. CENTRAL NERVOUS SYSTEM: Patient has resting tremor of the right hand, otherwise his strength is 5/5. No focal neurological deficit was found at this time. SKIN: No ulcerations, but he does have dry skin and chronic venous stasis changes at the bilateral lower extremities and gangrene of the tip of the toes as mentioned above. PSYCHIATRIC: Normal mood and affect. LYMPH NODES: No significant cervical, axillary or inguinal lymphadenopathy. LAB REVIEW: CBC showed a WBC of 12.2, hemoglobin 10.8, and platelets of 174. ABG showed pH 7.37, PCO2 43, pO2 77.8, bicarbonate 25.3, oxygen saturation 95.6. BMP showed sodium 135, potassium 4.7, chloride 99, bicarbonate 22, BUN 41, creatinine 5.6, glucose 322, calcium 8.8. C-reactive protein was 9.8. MICROBIOLOGY: Blood cultures are pending. Influenza is negative. IMAGING: CAT scan of the chest was done today which showed chronic lung field findings, cholelithiasis. CAT scan of the lumbosacral spine showed fusiform abdominal aortic aneurysm which measured 3.9 x 3.5 cm. There was no acute fracture. CAT scan of the thoracic spine showed no acute fracture or subluxation. ASSESSMENT: 80-year-old male with past medical history of end stage renal disease on hemodialysis every Thursday, and Thursday, COPD, coronary artery disease, hypertension, diabetes mellitus type 2, gangrene of the bilateral lower extremity toes after recent cardiac catheterization. He was recently discharged from the hospital one week ago and now he is readmitted after a fall and weakness and inability to walk. PLAN: 1. Generalized weakness and recent fall. The patient has gangrene of the toes and he has been deconditioned. He was getting physical therapy inpatient and he was cleared by physical therapy and discharged, but now he fell again. He needs extensive physical therapy. Unfortunately, because of the gangrene of his toes, he does not maintain good balance and he needs a walker to walk around. The rest of the management is as per primary team and physical therapy. 2. Cough and phlegm. Patient was already treated with IV antibiotics and antifungal during recent hospitalization. His CAT scan is negative. He is being empirically treated at this time. If his cultures come back negative, I would recommend to stop the IV antibiotics. 3. End stage renal disease on hemodialysis. Patient's regular days are Thursday , , and Thursday. I would switch him back to his regular days and he will be dialyzed today. I will try to do ultrafiltration of about 2 liters as tolerated. 4. History of chronic systolic congestive heart failure. His volume status will be managed with hemodialysis, 2 liters of ultrafiltration with hemodialysis today. 5. Bilateral dry gangrene of the toes, stable at this time. He was already seen by podiatry and surgery before. No intervention is needed at this time. 6. Anemia and end stage renal disease. His hemoglobin is 10.8 today. I would give him a dose of Aranesp with hemodialysis today. 7. Hypertension. Continue current dose of metoprolol 50 mg by mouth twice a day. 8. Chronic gout secondary to end stage renal disease. Continue current dose of Uloric 40 mg by mouth daily. Thank you for involving us in the care of this patient. We shall be happy to follow the patient along with you tomorrow morning. LINDYD
[2016-04-19] MEDS: CHECK TO SEE IF PATIENT IS RECEIVING DIALYSIS TODAY AND REFER TO THE VANCOMYCIN ORDER XX SCH (16:00)
[2016-04-19] MEDS: NORCO, ANEXSIA 5/325MG TABLET (HYDROcodone/ACETAMINOPHEN) PO PRN (18:04)
[2016-04-19] MEDS: CEFEPIME HCL 1 GM in D5W MINI-BAG PLUS 50 ML IV SCH (19:15)
[2016-04-19 22:00] VITALS: BP 129/61
[2016-04-20] MEDS: HEPARIN SOD (PORCINE) 5000 UNITS/ML VIAL SC SCH ×3 (05:37→20:33)
[2016-04-20 06:00] VITALS: BP 154/74
[2016-04-20 06:53] LABS: MEAN CORPUSCULAR HEMOGLOBIN 31.9 pg (27.0-33.0); MEAN CORPUSCULAR HGB CONC 30.7 g/dl (32.0-36.5); RED CELL DISTRIBUTION WIDTH 15.7 % (11.5-14.5); WHITE BLOOD COUNT 15.6 K/mm3 (4.0-10.0)
[2016-04-20 07:12] LABS: CALCIUM LEVEL 8.6 MG/DL (8.8-10.2); CREATININE FOR GFR 4.42 MG/DL (0.70-1.30); GLOMERULAR FILTRATION RATE 13.8 (>35)
[2016-04-20] MEDS: ATORVASTATIN 20 MG TAB PO SCH (08:42)
[2016-04-20] MEDS: FLUCONAZOLE 100 MG TAB PO SCH (08:42)
[2016-04-20] MEDS: METOPROLOL TART 50 MG TAB PO SCH ×2 (08:42→20:32)
[2016-04-20] MEDS: PANTOPRAZOLE 40MG TAB (PROTONIX) PO SCH ×2 (08:42→20:33)
[2016-04-20] MEDS: ASPIRIN 81 MG ENTERIC TAB PO SCH (08:42)
[2016-04-20] MEDS: GABAPENTIN 100 MG CAP PO SCH ×2 (08:42→20:32)
[2016-04-20] MEDS: CLOPIDOGREL 75 MG TAB PO SCH (08:42)
[2016-04-20] MEDS: MULTIVITAMINS/MINERALS THERAP 1 TAB PO SCH (08:42)
[2016-04-20] MEDS: FEBUXOSTAT 40 MG TABLET (ULORIC) PO SCH (08:42)
[2016-04-20] MEDS: NORCO, ANEXSIA 5/325MG TABLET (HYDROcodone/ACETAMINOPHEN) PO PRN (08:43)
[2016-04-20] MEDS: HumaLOG INSULIN (NovoLOG) PER UNIT SC SCH ×4 (08:44→21:00)
[2016-04-20] MEDS ORDERED: VANCOMYCIN HCL 1,000 MG, VIAL MATE ADAPTER 1 EACH in D5W 250 ML IV SCH (09:15)
--- NOTE | 2016-04-20 11:15 | IPN ---
DATE: 04/19/2016 Time patient was seen was at 10:30. The patient seen and examined at the bedside. No acute events overnight. The patient looked somewhat drowsy this morning. However, he was easily arousable and the patient had a good meal in the morning. He ate everything for breakfast. However, he said he is very weak and drowsy and denies any fever or chills, any chest pain, trouble breathing, abdominal pain, nausea, vomiting, diarrhea or constipation. PHYSICAL EXAM: VITAL SIGNS: Temperature 98.3, pulse 70, respirations 20, blood pressure 175/72 , and oxygen was satting at 95% on room air. GENERAL: The patient is an obese, elderly male who was alert, awake, oriented times three and does not appear to be in distress, resting comfortably in bed with the head elevated at 30 degrees. HEENT: Normocephalic, atraumatic. Extraocular motor intact. Mucosa moist. Neck supple. No neck lymphadenopathy. CARDIOVASCULAR: Regular rate and rhythm. S1, S2. No murmurs, rubs or gallops. LUNGS: Clear to auscultate bilaterally. No rales, wheezes or rhonchi. ABDOMEN: Positive bowel sounds. Soft. Nontender. Nondistended. No peritoneal signs. No ecchymosis. EXTREMITIES: Shows healing eschar on bilateral toes. SKIN: Warm and dry. NEUROLOGIC: Cranial nerves II-XII intact. No focal neurological deficit. LABS: Labs were drawn on 04/19/2016 and showed WBC of 12.2, hemoglobin 10.8, hematocrit 35.1, with platelet count of 174, MCV 104.9. Sodium 135, potassium 4.7, chloride 99, bicarbonate 22, BUN 41, creatinine 5.61, GFR was 10.5, glucose 322. The patient had an ABG done that shows a pH of 7.37, pCO2 43, pO2 77, oxygen saturation 95% on room air. Accu-Chek glucose shows 211, 279. Blood culture times two shows no growth after two days. No new imaging. ASSESSMENT AND PLAN: 80-year-old male with past medical history of end stage renal disease on hemodialysis Thursday, , and Thursday, systolic heart failure, chronic obstructive pulmonary disease (COPD) on 2 liters of oxygen at home, coronary artery disease status post stents, non- ST elevation myocardial infarction and tachycardia recently, ventricular tachycardia, chronic anemia, hypertension, insulin dependent type 2 diabetes, gastroesophageal reflux disease (GERD), hyperlipidemia, gout, glaucoma, and insomnia who presented with: 1. Generalized weakness. The patient could not tolerate physical therapy. The patient did still have coughing and sputum production. Considering possibility for COPD exacerbation and will continue to monitor patient and continue physical therapy (PT). 2. End stage renal disease on hemodialysis on Thursday, and Thursday. Nephrology has been consulted. Will follow his recommendation. 3. Chronic systolic heart failure. Continue hemodialysis. 4. Insulin dependent type 2 diabetes. Continue Levemir sliding scale and carbohydrate consistent diet and finger sticks. 5. GERD. Continue Protonix. 6. History of myocardial infarction, non-STEMI, and ventricular tachycardia. Continue aspirin and Plavix. 7. Eschars of bilateral toes. Continue to monitor. Currently stable. 8. Insomnia. Continue Ambien. 9. Peripheral artery disease with eschars. Patient does have an appointment with vascular surgery in [place] on 05/05/2016. 10. Deep vein thrombosis prophylaxis, on subcutaneous heparin. DISPOSITION: Patient does have weakness and will continue physical therapy while patient is in the hospital and continue to monitor him. He did appear to be weaker today; however, he had a really good meal in the morning. The patient has been discussed with attending doctor, Dr. Gardner. My preceptor for this patient encounter was Dr. Suzie Gardner. The preceptor was physically present in the building during the encounter and was fully available. As needed, all aspects of the patient interview, examination, medical decision making process, and medical care plan development were reviewed and approved by the preceptor. The preceptor is aware and concurs with the plan as stated in the body of this note and will attest to such by his/her cosignature. I have both independently examined this patient as well as reviewed the note. I have discussed in detail with the resident the findings and plan of treatment as documented in the residents note. I will continue to follow the patient and offer further guidance to the patients care as necessary during this hospital stay. Suzie MONGE
[2016-04-20 14:00] VITALS: BP 135/64
[2016-04-20] MEDS: IPRATROPIUM 0.5MG/ALBUTEROL 2.5MG INH SOL UD 3ML (DUONEB)(J7620) NEB SCH ×2 (14:00→19:29)
[2016-04-20] MEDS ORDERED: ALBUTEROL SULFATE 2.5 MG/0.5 ML INH NEB SOLN NEB PRN (14:30)
[2016-04-20] MEDS: guaiFENesin ER 600 MG TAB PO SCH ×2 (15:26→20:32)
[2016-04-20] MEDS: PERCOCET 5MG/325MG TAB PO PRN ×2 (15:27→20:34)
[2016-04-20] MEDS: CHECK TO SEE IF PATIENT IS RECEIVING DIALYSIS TODAY AND REFER TO THE VANCOMYCIN ORDER XX SCH (15:27)
[2016-04-20] MEDS: CEFEPIME HCL 1 GM in D5W MINI-BAG PLUS 50 ML IV SCH (18:03)
[2016-04-20 19:30] VITALS: O2SAT 96
[2016-04-20 22:00] VITALS: BP 143/67
[2016-04-21] MEDS: IPRATROPIUM 0.5MG/ALBUTEROL 2.5MG INH SOL UD 3ML (DUONEB)(J7620) NEB SCH ×4 (02:00→20:32)
[2016-04-21] MEDS: HEPARIN SOD (PORCINE) 5000 UNITS/ML VIAL SC SCH ×3 (05:06→21:12)
[2016-04-21 06:00] VITALS: BP 156/62
[2016-04-21 07:23] LABS: MEAN CORPUSCULAR HEMOGLOBIN 32.8 pg (27.0-33.0); RED CELL DISTRIBUTION WIDTH 15.2 % (11.5-14.5); WHITE BLOOD COUNT 12.1 K/mm3 (4.0-10.0)
[2016-04-21 07:48] LABS: CALCIUM LEVEL 8.3 MG/DL (8.8-10.2); CREATININE FOR GFR 6.46 MG/DL (0.70-1.30); GLOMERULAR FILTRATION RATE 8.9 (>35); POTASSIUM SERUM 4.5 MEQ/L (3.5-5.1)
[2016-04-21] MEDS: GABAPENTIN 100 MG CAP PO SCH ×2 (09:05→21:14)
[2016-04-21] MEDS: FEBUXOSTAT 40 MG TABLET (ULORIC) PO SCH (09:05)
[2016-04-21] MEDS: guaiFENesin ER 600 MG TAB PO SCH ×2 (09:05→21:15)
[2016-04-21] MEDS: CLOPIDOGREL 75 MG TAB PO SCH (09:06)
[2016-04-21] MEDS: METOPROLOL TART 50 MG TAB PO SCH ×2 (09:06→21:14)
[2016-04-21] MEDS: MULTIVITAMINS/MINERALS THERAP 1 TAB PO SCH (09:06)
[2016-04-21] MEDS: ATORVASTATIN 20 MG TAB PO SCH (09:07)
[2016-04-21] MEDS: ASPIRIN 81 MG ENTERIC TAB PO SCH (09:07)
[2016-04-21] MEDS: PANTOPRAZOLE 40MG TAB (PROTONIX) PO SCH ×2 (09:07→21:14)
[2016-04-21] MEDS: HumaLOG INSULIN (NovoLOG) PER UNIT SC SCH ×4 (09:08→21:00)
[2016-04-21] MEDS: PERCOCET 5MG/325MG TAB PO PRN ×2 (09:14→21:13)
--- NOTE | 2016-04-21 10:08 | IPN ---
DATE: 04/20/2016 SUBJECTIVE: Patient complains of bilateral leg pain, later reports foot pain on the left worse than right. Complains of chronic cough; however, is unable to bring out any phlegm. Still feels extremely weak and tired. Denies any fever or chills. Denies any nausea, vomiting, diarrhea. Denies any abdominal pain, any chest pain. PHYSICAL EXAMINATION: VITAL SIGNS: Temperature 97.6, pulse 78, respiratory rate 18, blood pressure 154/74, pulse oximetry 96% on 2 liters nasal cannula. GENERAL: Patient is awake, alert, oriented times three. Sitting up in bed in no acute distress. HEENT: Normocephalic, atraumatic. Moist mucous membranes. Anicteric eyes. CHEST: Bilateral basilar crackles. Good air entry. No wheezes. CARDIOVASCULAR: S1, S2. Irregular. No rub, murmur, or gallop. ABDOMEN: Obese, soft, nontender. Bowel sounds present. EXTREMITIES: Bilateral necrotic toes with dry gangrene. Also, there is chronic venous stasis changes on both the legs with left greater than right. LABORATORY DATA: WBC 15.6, hemoglobin 11.3, platelets 193. Sodium 140, potassium 4.0, chloride 101, bicarbonate 27, BUN 25, creatinine 4.4, glucose 215, calcium 8.6, C-reactive protein 13.2. Blood cultures are negative after 24 hours. Influenza is negative. ASSESSMENT AND PLAN: This is an 80-year-old male admitted for extreme generalized weakness and fall in the background of end-stage renal disease and recent hospitalization for pneumonia. 1. Extreme generalized weakness, most probably due to physical deconditioning. The patient is being evaluated and followed by physical therapy (PT). Unlikely any source of infection to be the cause of weakness. 2. End stage renal disease on hemodialysis Thursday, and Thursday. We will continue as per routine dialysis schedule. 3. Chronic systolic congestive heart failure (CHF). Fluid status is being adjusted in dialysis. At present does not seem to be in any exacerbation. 4. Infectious disease, no source of infection found yet. At this time, the patient is empirically on cefepime and vancomycin in view of his elevated white count and elevated C-reactive protein. The patient is being empirically treated for possible cellulitis versus pneumonia. We are awaiting blood cultures. If blood cultures come back negative, we will discontinue antibiotics. CT scan did not show any new features of pneumonia. The patient does have some atelectatic and chronic obstructive pulmonary disease (COPD) changes from before. Elevated C-reactive protein and white count could also be explained by the dry gangrene present on the toes. 4. Peripheral vascular disease with dry gangrene of the toes. The patient has been seen by vascular surgery in [place]. No intervention at this point. 5. Coronary artery disease, status post stenting 1-1/2 months ago. No acute issues at this point. 6. Diabetes. We will continue with insulin. 7. Bilateral dry gangrene of the toes. Does not need intervention at this point. Was discussed with podiatry. 8. Gastroesophageal reflux disease (GERD). We will continue with Protonix. 9. Deep vein thrombosis (DVT) prophylaxis has been ordered. 10. Hypertension. We will continue with metoprolol. 11. Gout. We will continue with Uloric. 12. 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 Stable at this point. 13. COPD. We will continue with home oxygen. The patient is at baseline oxygen requirement. 14. Chronic respiratory failure with hypoxia. We will continue with home oxygen. MTDD
[2016-04-21 10:43] LABS: FOLATE 6.9 NG/ML (>5.4)
--- NOTE | 2016-04-21 11:36 | IPN ---
DATE: 04/20/2016 SUBJECTIVE: The patient was seen and examined at the bedside today in the morning. He tolerated the hemodialysis procedure well yesterday. He feels much better. He was sitting in the sofa when I examined the patient today morning. REVIEW OF SYSTEMS: The patient denies any fever, chills, rigors, headache, nausea, vomiting, chest pain, shortness of breath, pain in the abdomen, constipation, or diarrhea. He still reports some weakness and difficulty with ambulation. The rest of the review of systems is negative. OBJECTIVE: VITAL SIGNS: Temperature is 96.6 degrees Fahrenheit, blood pressure 135/64, pulse is 67, respiratory rate of 18, saturating 95% on nasal cannula. INTAKE AND OUTPUT: The patient got hemodialysis done yesterday. Ultrafiltration was 2.3 liters. Weight on the bed scale is 92.2 kg. GENERAL: The patient is awake, alert, oriented times three, sitting on the sofa. No apparent distress. HEAD AND NECK EXAM: Extraocular muscles intact. Pupils equally round and reactive to light. Neck is supple. There is no jugular venous distention. CARDIOVASCULAR: S1, S2. Regular rate. No murmur, rub or gallop. RESPIRATORY: Decreased breath sounds at the bases, otherwise no rales or rhonchi. ABDOMEN: Soft. Positive bowel sounds. No ascites. No organomegaly. EXTREMITIES: Patient has dry gangrene of multiple toes and bilateral lower extremities and he also has 1+ pitting edema of the bilateral extremities as well. CENTRAL NERVOUS SYSTEM: No focal neurological deficit. The patient has resting tremor of the right hand. Otherwise, power is 5/5 in all extremities. SKIN: The patient has dry skin and chronic venous stasis changes at the bilateral lower extremities and dry gangrene of the bilateral toes as well. LAB REVIEW: CBC showed a WBC of 15.6, hemoglobin 11.3, platelets of 193. BMP showed sodium 140, potassium 4, chloride 101, bicarbonate 27, BUN 25, creatinine 4.4, calcium 8.6. MICROBIOLOGY: Blood cultures are negative. IMAGING: CAT scan of the chest was done yesterday, which showed chronic lung field findings, and there was no acute pathology. CURRENT MEDICATIONS: The patient's medications were all reviewed by me and he is currently on cefepime and vancomycin. There is no other change in the medications at this time. ASSESSMENT: 80-year-old male with past medical history of end stage renal disease on hemodialysis every Thursday, and Thursday, chronic obstructive pulmonary disease (COPD), hypertension, diabetes mellitus type 2, dry gangrene of the bilateral toes after recent cardiac catheterization. The patient was admitted after a fall and weakness causing inability to walk. PLAN: 1. Generalized weakness and recent fall. The patient is physically deconditioned and he has gangrene of multiple toes as well, causing inability to walk. He continues to get physical therapy (PT), but he reports weakness. The rest of the management is as per physical therapy (PT) service and primary team. 2. Cough and phlegm. He continues to be on intravenous antibiotics. Cultures are still pending. CAT scan did not show any acute pathology. 3. End stage renal disease on hemodialysis. Patient got his hemodialysis yesterday according to his schedule. Next hemodialysis session will be on Thursday. 4. History of chronic systolic congestive heart failure. Volume status is optimized. Next hemodialysis session will be done on Thursday, and we shall try to remove about 2.5 to 3 liters of fluid as tolerated by his blood pressure. 5. Anemia and end stage renal disease. His hemoglobin is in acceptable limits at this time.
[2016-04-21 14:00] VITALS: BP 161/79
--- NOTE | 2016-04-21 14:02 | IPN ---
DATE: 04/21/2016 SUBJECTIVE: Patient was seen this morning at bedside. No acute overnight issues. The patient states that he is feeling well and was currently working with physical therapy in the room. He denied any acute complaints. Afebrile. No chest pain or shortness of breath. No gastrointestinal (GI) complaints. Has generalized weakness and difficulty with ambulation, thus receiving physical therapy. OBJECTIVE: VITAL SIGNS: Temperature 96.0, pulse 61, respiratory rate 16, blood pressure 153/68, pulse oximetry 98% on 2 liters nasal cannula. GENERAL: Patient is alert and oriented, in no acute distress. HEENT: Normocephalic, atraumatic. Extraocular muscles are intact. Moist mucosa. NECK: Supple. Jugular venous pulsations are not significantly elevated. HEART: Positive S1 and S2, irregular. No murmurs appreciated. LUNGS: Clear to auscultation bilaterally. No rales, rhonchi or wheezing. ABDOMEN: Soft, nontender, nondistended. EXTREMITIES: She has minimal lower extremity edema. No cyanosis. He does have left lower extremity with vascular changes as well as gangrene of his toes. BACK: Has ecchymoses of the left back area status post fall. NEUROLOGIC: No focal deficits. LABORATORY DATA: WBC 12.1, hemoglobin 12.2, hematocrit 39.4, platelet count 182 , sodium 141, potassium 4.5, chloride 101, carbon dioxide 27, anion gap 13, BUN 45 , creatinine 6.46, GFR 8.9, fasting glucose 213, calcium 8.3, C-reactive protein 7.58. Microbiology: Blood cultures have shown no growth thus far. ASSESSMENT/PLAN Mr. Rodriguez is an 80-year-old male with past medical history significant for end-stage renal disease on hemodialysis every Thursday, , Thursday, coronary artery disease, hypertension, diabetes, gangrene of bilateral lower extremity toes after recent cardiac catheterization, COPD who was recently discharged from the hospital about one week ago and now has been readmitted after a fall with weakness and inability to ambulate. 1. End-stage renal disease on hemodialysis. Continue with regular schedule of Tuesdays, and Saturdays. Electrolytes are stable. 2. Generalized weakness and recent fall. The patient has gangrene of his toes, which affects as ambulation. He is currently receiving physical therapy. Social service is involved for possible discussion of assisted placement. 3. History of chronic systolic congestive heart failure. Volume status is currently stable at this time. Continue with regularly scheduled hemodialysis. 4. Leukocytosis and elevated CRP. Source of infection is not clear. However, the patient's numbers are improving on cefepime and vancomycin. 5. Bilateral dry gangrene of the toes. The patient was previously assessed and no intervention is being done at this time. 6. Hypertension. Continue to monitor blood pressure. Continue metoprolol 50 mg twice daily. 7. Anemia and renal disease. Hemoglobin is currently stable. He received a dose of Aranesp on April 19. 8. Chronic gout. The patient continues to be on Uloric daily. Thank you for allowing us to participate in the care of Mr. Rodriguez. My preceptor for this patient encounter was Dr. Daisha Bass. The preceptor was physically present in the building during the encounter and was fully available. As needed, all aspects of the patient interview, examination, medical decision making process, and medical care plan development were reviewed and approved by the preceptor. The preceptor is aware and concurs with the plan as stated in the body of this note and will attest to such by his/her cosignature. MARIPOSA
[2016-04-21] MEDS: CHECK TO SEE IF PATIENT IS RECEIVING DIALYSIS TODAY AND REFER TO THE VANCOMYCIN ORDER XX SCH (16:00)
[2016-04-21] MEDS: ONDANSETRON 4MG/2ML VIAL (J2405) IV PRN (17:23)
[2016-04-21] MEDS: CEFEPIME HCL 1 GM in D5W MINI-BAG PLUS 50 ML IV SCH (17:23)
--- NOTE | 2016-04-21 20:01 | IPNPDOC ---
Assessment/Plan Date Seen The patient was seen on 04/21/16. Problems Problems: (1) Leucocytosis Status: Acute Problem Text: with elevated crp, no source of infection identified could be due to secondary infection of the dry gangrenous toes vs incompletely treated pneumonia from the prior admission . He did have have some persistent yellowish sputum production on admission. pateint completed a course of fluconazole for fungus in sputum from prior admission improving with cefepime and vanco so will continue. (2) Generalized weakness Status: Acute Problem Text: due to recent hospitalization and severe muscle deconditioning. needs PT reccomendation (3) ESRD (end stage renal disease) Status: Chronic Problem Text: on HD tues , thurs sat (4) Peripheral vascular disease Status: Chronic Problem Text: not intervension planned at resent has dry gagrene of the toes (5) Gangrene Status: Chronic Problem Text: dry gangrene of the toes. (6) COPD (chronic obstructive pulmonary disease) Status: Chronic Problem Text: continue nebulizations (7) CAD (coronary artery disease) Status: Chronic Problem Text: status post stenting about 1 month ago continue asa , plavix, betablocker , statin (8) Gout Status: Chronic (9) Diastolic CHF Status: Chronic Response to Treatment: Stable (10) Hyperlipidemia Status: Chronic (11) Chronic respiratory failure with hypoxia Status: Chronic Problem Text: continue oxyzen by nasal canula (12) Pulmonary hypertension Status: Chronic (13) Hypertension Status: Chronic (14) Diabetes Status: Chronic Problem Text: with neuropathy continue insulin , gabapentin. percocet Plan / VTE VTE Prophylaxis Ordered?: Yes Subjective Review of Systems CC/HPI The patient is a 80-year-old male admitted with a reason for visit of Esrd; Generalized Weakness. Events since last encounter no complaints this morning , pain better controlled no fever or chills, no chest pain or sob , no cough or phlegm, no abdominal pain nausea or vomiting. Objective Physical Examination General Exam: Positive: Alert, Cooperative, No Acute Distress Eye Exam: Positive: Conjunctiva & lids normal, EOMI, PERRLA, Negative: Sclera icteric ENT Exam: Positive: Atraumatic, Mucous membr. moist/pink, Pharynx Normal Neck Exam: Positive: Supple, Negative: JVD, thyromegaly Chest Exam: Positive: Clear to auscultation, Normal air movement Heart Exam: Positive: Normal S1, Normal S2, Rate Normal Abdomen Exam: Positive: Normal bowel sounds, Soft Extremity Exam: Positive: Other (dry gangrene on bilateral toes.), Tenderness Vital Signs/I&O Vital Signs Date Time Temp Pulse Resp B/P Pulse Ox O2 Delivery O2 Flow Rate FiO2 04/21/16 14:00 97.2 63 20 161/79 97 Nasal Cannula 2.0 I&O- Last 24 Hours up to 6 AM 04/21/16 06:00 Intake Total 1620 ml Output Total 0 ml Balance 1620 ml Laboratory Data Labs 24H Laboratory Tests 2 04/20/16 20:23: Bedside Glucose (Misc Panel) 231H 04/21/16 07:00: Anion Gap 13, C-Reactive Protein, Quantitative 7.58H, Blood Urea Nitrogen 45#H, Creatinine 6.46H, Sodium Level 141, Potassium Level 4.5, Chloride Level 101, Carbon Dioxide Level 27, Calcium Level 8.3L, Glomerular Filtration Rate 8.9L 04/21/16 11:52: Bedside Glucose (Misc Panel) 175H 04/21/16 16:41: Bedside Glucose (Misc Panel) 169H CBC/BMP Laboratory Tests 04/21/16 07:00 Calcium Level 8.3 L 04/21/16 07:04 Red Blood Count 3.71 L, Mean Corpuscular Volume 106.0 H, Mean Corpuscular Hemoglobin 32.8, Mean Corpuscular Hemoglobin Concent 31.0 L, Red Cell Distribution Width 15.2 H FSBS Laboratory Tests Test 04/20/16 20:23 04/21/16 11:52 04/21/16 16:41 Range/Units Bedside Glucose (Misc Panel) 231 175 169 83-110 MG/DL Microbiology Microbiology 04/18/16 Blood Culture - Preliminary, Resulted No Growth after 48 hours. All Specime... 04/18/16 Blood Culture - Preliminary, Resulted No Growth after 48 hours. All Specime... 04/18/16 Influenza Virus Type A Antigen - Final, Complete 04/18/16 Influenza Virus Type B Antigen - Final, Complete KIMMY FIGUEREDO MD Apr 21, 2016 20:01
[2016-04-21 22:00] VITALS: BP 181/79
[2016-04-22] MEDS: IPRATROPIUM 0.5MG/ALBUTEROL 2.5MG INH SOL UD 3ML (DUONEB)(J7620) NEB SCH ×4 (01:39→20:24)
[2016-04-22] MEDS: HEPARIN SOD (PORCINE) 5000 UNITS/ML VIAL SC SCH ×3 (05:11→20:51)
[2016-04-22 06:00] VITALS: BP 148/65
[2016-04-22] MEDS: MIRALAX *UNIT DOSE* 17GM PACKET PO PRN (06:33)
[2016-04-22] MEDS: ATORVASTATIN 20 MG TAB PO SCH (06:34)
[2016-04-22] MEDS: PANTOPRAZOLE 40MG TAB (PROTONIX) PO SCH ×2 (06:34→20:51)
[2016-04-22] MEDS: CLOPIDOGREL 75 MG TAB PO SCH (06:34)
[2016-04-22] MEDS: PERCOCET 5MG/325MG TAB PO PRN ×2 (06:34→14:21)
[2016-04-22] MEDS: FEBUXOSTAT 40 MG TABLET (ULORIC) PO SCH (06:35)
[2016-04-22] MEDS: ASPIRIN 81 MG ENTERIC TAB PO SCH (06:35)
[2016-04-22] MEDS: METOPROLOL TART 50 MG TAB PO SCH ×2 (06:35→20:54)
[2016-04-22] MEDS: guaiFENesin ER 600 MG TAB PO SCH ×2 (06:36→20:50)
[2016-04-22] MEDS: MULTIVITAMINS/MINERALS THERAP 1 TAB PO SCH (06:36)
[2016-04-22] MEDS: GABAPENTIN 100 MG CAP PO SCH ×2 (06:36→20:50)
[2016-04-22] MEDS: HumaLOG INSULIN (NovoLOG) PER UNIT SC SCH ×4 (08:23→20:52)
--- NOTE | 2016-04-22 08:55 | ECGEPIP ---
Stationary ECG Study [facility] Test Date: 2016-04-20 Pat Name: EVE GANN Department: Room: [place] [address] Gender: M Administrative Director: ROBBI : 1935 Requested By: KIMMY FIGUEREDO Order Number: [id number] Reading MD: Nils Daniel Measurements Intervals [place] Rate: 73 P: 34 LA: 154 QRS: 7 QRSD: 89 T: 45 QT: 374 QTc: 413 Interpretive Statements SINUS RHYTHM WITH ventricular trigeminy Electronically Signed On 04-22-2016 8:54:50 EST by Nils Daniel
--- NOTE | 2016-04-22 09:00 | ECGEPIP ---
Stationary ECG Study [facility] Test Date: 2016-04-20 Pat Name: EVE GANN Department: Room: [place] [address] Gender: M Medical Secretary: ROBBI : 1935 Requested By: KIMMY FIGUEREDO Order Number: [id number] Reading MD: Nils Daniel Measurements Intervals [place] Rate: 62 P: 17 VT: 155 QRS: -3 QRSD: 93 T: 29 QT: 416 QTc: 425 Interpretive Statements SINUS RHYTHM no ventricular ectopy as previously seen on tracing earlier on same day Electronically Signed On 04-22-2016 8:59:51 EST by Nils Daniel
--- NOTE | 2016-04-22 09:59 | EDDOCDS ---
Physician Documentation [facility] Name: Nnamdi Rodriguez Age: 80 yrs Sex: Male : 1935 Arrival Date: 04/18/2016 Time: 15:12 Bed 17 Private MD: Dasiha Bass P Disposition: 04/18/16 19:33 Hospitalization ordered by Dottie Suggs for Inpatient Admission. Preliminary diagnosis are Chronic obstructive pulmonary disease with (acute) exacerbation, Contusion of back wall of thorax, Abdominal aortic aneurysm, without rupture. - Bed requested for 5 [place]. - Status is Inpatient Admission. kmg1 - Condition is Stable. - Problem is new. - Symptoms are unchanged. Historical: - Allergies: no known allergies; - Home Meds: 1. atorvastatin 20 mg oral tab 1 tab once daily (Last dose: 04/17/2016) 2. polyethylene glycol 3350 17 gram oral pwpk 1 packet once daily 3. prednisone 10 mg Oral tab once daily 4. fluconazole 100 mg Oral tab 1 tab once daily 5. gabapentin 100 mg Oral tab twice a day 6. clopidogrel 75 mg oral tab 7. hydrocodone-acetaminophen 5-325 mg Oral tab every 6 hours 8. zolpidem 10 mg Oral tab 1 tab once daily 9. atorvastatin 20 mg oral tab 1 tab once daily 10. Augmentin 875-125 mg Oral tab 1 tab every 12 hours 11. Uloric 40 mg oral tab 1 tab once daily 12. pantoprazole 40 mg oral TbEC 1 tab 2 times per day 13. metoprolol tartrate 50 mg Oral tab 1 tab 2 times per day 14. Doc-Q-Lace 100 mg oral cap 1 cap 2 times per day 15. doxycycline hyclate 100 mg Oral cap 1 cap every 12 hours 16. LEVEMIR twice a day 17. Spiriva with HandiHaler 18 mcg Inhl CpDv 1 cap once daily - PMHx: Chronic Renal Failure with dialysis; COPD; Diabetes - IDDM: uncontrolled; GERD; Hypercholesterolemia; Hypertension; AR; - PSHx: cardiac stents.; Dialysis Graft Construction, Arm; - Social history: Smoking status: Patient states former smoker of tobacco. No barriers to communication noted, The patient speaks fluent Ghanaian. - Family history: Not pertinent. - : The pt / caregiver states he / she is not on anticoagulants. Home medication list is obtained from patients' pharmacy. - Exposure Risk Screening:: None identified. Vital Signs: 04/18 15:23 BP 129 / 59 RA Sitting (auto/reg); Pulse 92; Resp 16; Temp 99.3(TE); Pulse Ox 99% on jrd R/A; Weight 86.18 kg / 189.99 lbs (R); Height 5 ft. 4 in. 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 br1 15:50 IV Saline Lock ordered. br1 15:50 Rhythm Strip to chart ordered. br1 15:50 Undress patient appropriately for examination ordered. br1 15:51 Albuterol-Ipratropium 3 ml Inhalation once ordered. br1 15:51 Call Respiratory ordered. br1 15:51 ECG WITH READING ER PHYS+CARDIAG ordered. EDMS 15:52 B-Type Natiuretic Peptide Ordered. EDMS 15:52 Basic Metabolic Profile Ordered. EDMS 15:52 CBC with Diff Ordered. EDMS 15:52 Cardiac Injury Profile Ordered. EDMS 15:52 Troponin Ordered. EDMS 15:52 morphine 2 mg IVP once; prn pain ordered. br1 15:52 CT Chest Without Contrast Ordered. EDMS 15:52 CT Spine,Thoracic W/o Contrast Ordered. EDMS 15:52 CT Spine, Lumbar W/o Contrast Ordered. EDMS 16:07 Call Respiratory complete. lbd 16:38 CBC with Diff Reviewed. br1 16:38 -Influenza A&B Rapid Antigen - Nose Ordered. EDMS 17:12 REGULAR+DIET ordered. EDMS 17:21 Financial registration complete. zo 17:36 B-Type Natiuretic Peptide Reviewed. br1 17:36 Basic Metabolic Profile Reviewed. br1 17:36 Cardiac Injury Profile Reviewed. br1 17:36 Troponin Reviewed. br1 17:36 -Influenza A&B Rapid Antigen - Nose Reviewed. br1 17:36 CT Chest Without Contrast Reviewed. br1 17:45 Ambulate Patient [facility] Pulse Oximetry ordered. br1 17:57 Albuterol-Ipratropium 3 ml Inhalation once ordered. br1 17:57 Solu-MEDROL 125 mg IVP once ordered. br1 18:04 [facility] Payment Agreement was scanned into [employer] and attached to record. zo 18:54 BED REQUEST+ADM ordered. EDMS 20:24 COMPLETE BLOOD COUNT Ordered. EDMS 20:24 BASIC METABOLIC PROFILE Ordered. EDMS 20:25 PHYSICAL THERAPY EVAL & TREAT ordered. EDMS 20:26 Admission / Observation Status ordered. EDMS 20:26 CONSISTENT CARBOHYDRATES ordered. EDMS 20:41 LACTIC ACID LEVEL, LACTATE Ordered. EDMS 20:41 C REACTIVE PROTEIN QUANTITATIV Ordered. EDMS 20:42 URINALYSIS Ordered. EDMS 20:42 BLOOD CULTURES Ordered. EDMS 20:42 BLOOD CULTURES Ordered. EDMS 20:42 SPUTUM CULTURE AND GRAM STAIN Ordered. EDMS 20:47 C REACTIVE PROTEIN QUANTITATIV Ordered. EDMS 20:47 FOLATE Ordered. EDMS 04/19 09:07 T-Sheet-- Draft Copy was scanned into [employer] and attached to record. gb Administered Medications: 04/18 16:40 Drug: Albuterol-Ipratropium 3 ml [ipratropium-albuterol 0.5 mg-3 mg(2.5 mg base)/3 mL rs5 nebulization soln (3 mL)] Route: Inhalation; 16:44 Not Given (denies pain presently): morphine 2 mg IVP once; prn pain jmk 18:06 Drug: Solu-MEDROL 125 mg [Solu-Medrol 500 mg intravenous solution (125 mg)] Route: IVP; k Site: right antecubital; 18:12 Drug: Albuterol-Ipratropium 3 ml [ipratropium-albuterol 0.5 mg-3 mg(2.5 mg base)/3 mL cs15 nebulization soln (3 mL)] Route: Inhalation; Signatures: Dispatcher [employer] EDMS Quintanilla, Angela, Business Integration Manager Unit lbd Carin Maradiaga, RN RN kmg1 Grady Tao,RN PARRIS Tim, Lydia Escobar, RN Yokasta Jones, Saji Reg Chuy Herrera Brian, MD MD br1 Kory Lloyd RT rs5 Kei Jordan RT cs15 The chart was reviewed and I authenticate all verbal orders and agree with the evaluation and treatment provided.Corrections: (The following items were deleted from the chart) 20:44 20:42 FOLATE ordered. EDMS EDMS 20:45 20:45 C REACTIVE PROTEIN QUANTITATIV ordered. EDMS EDMS 20:45 20:45 C REACTIVE PROTEIN QUANTITATIV ordered. EDMS EDMS 20:45 20:45 FOLATE ordered. EDMS EDMS 20:45 20:45 FOLATE ordered. EDMS EDMS Attachments: 18:04 [facility] Payment Agreement zo 04/19 09:07 T-Sheet-- Draft Copy gb Chart Complete MTDD
--- NOTE | 2016-04-22 09:59 | EDDOCDS ---
Physician Documentation [facility] Name: Nnamdi Rodriguez Age: 80 yrs Sex: Male : 1935 Arrival Date: 04/18/2016 Time: 15:12 Bed 17 Private MD: Daisha Bass P Disposition: 04/18/16 19:33 Hospitalization ordered by Dottie Suggs for Inpatient Admission. Preliminary diagnosis are Chronic obstructive pulmonary disease with (acute) exacerbation, Contusion of back wall of thorax, Abdominal aortic aneurysm, without rupture. - Bed requested for 5 [place]. - Status is Inpatient Admission. kmg1 - Condition is Stable. - Problem is new. - Symptoms are unchanged. Historical: - Allergies: no known allergies; - Home Meds: 1. atorvastatin 20 mg oral tab 1 tab once daily (Last dose: 04/17/2016) 2. polyethylene glycol 3350 17 gram oral pwpk 1 packet once daily 3. prednisone 10 mg Oral tab once daily 4. fluconazole 100 mg Oral tab 1 tab once daily 5. gabapentin 100 mg Oral tab twice a day 6. clopidogrel 75 mg oral tab 7. hydrocodone-acetaminophen 5-325 mg Oral tab every 6 hours 8. zolpidem 10 mg Oral tab 1 tab once daily 9. atorvastatin 20 mg oral tab 1 tab once daily 10. Augmentin 875-125 mg Oral tab 1 tab every 12 hours 11. Uloric 40 mg oral tab 1 tab once daily 12. pantoprazole 40 mg oral TbEC 1 tab 2 times per day 13. metoprolol tartrate 50 mg Oral tab 1 tab 2 times per day 14. Doc-Q-Lace 100 mg oral cap 1 cap 2 times per day 15. doxycycline hyclate 100 mg Oral cap 1 cap every 12 hours 16. LEVEMIR twice a day 17. Spiriva with HandiHaler 18 mcg Inhl CpDv 1 cap once daily - PMHx: Chronic Renal Failure with dialysis; COPD; Diabetes - IDDM: uncontrolled; GERD; Hypercholesterolemia; Hypertension; [place]; - PSHx: cardiac stents.; Dialysis Graft Construction, Arm; - Social history: Smoking status: Patient states former smoker of tobacco. No barriers to communication noted, The patient speaks fluent Rwandan. - Family history: Not pertinent. - : The pt / caregiver states he / she is not on anticoagulants. Home medication list is obtained from patients' pharmacy. - Exposure Risk Screening:: None identified. Vital Signs: 04/18 15:23 BP 129 / 59 RA Sitting (auto/reg); Pulse 92; Resp 16; Temp 99.3(TE); Pulse Ox 99% on jrd R/A; Weight 86.18 kg / 189.99 lbs (R); Height 5 ft. 4 in. 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 br1 15:50 IV Saline Lock ordered. br1 15:50 Rhythm Strip to chart ordered. br1 15:50 Undress patient appropriately for examination ordered. br1 15:51 Albuterol-Ipratropium 3 ml Inhalation once ordered. br1 15:51 Call Respiratory ordered. br1 15:51 ECG WITH READING ER PHYS+CARDIAG ordered. EDMS 15:52 B-Type Natiuretic Peptide Ordered. EDMS 15:52 Basic Metabolic Profile Ordered. EDMS 15:52 CBC with Diff Ordered. EDMS 15:52 Cardiac Injury Profile Ordered. EDMS 15:52 Troponin Ordered. EDMS 15:52 morphine 2 mg IVP once; prn pain ordered. br1 15:52 CT Chest Without Contrast Ordered. EDMS 15:52 CT Spine,Thoracic W/o Contrast Ordered. EDMS 15:52 CT Spine, Lumbar W/o Contrast Ordered. EDMS 16:07 Call Respiratory complete. lbd 16:38 CBC with Diff Reviewed. br1 16:38 -Influenza A&B Rapid Antigen - Nose Ordered. EDMS 17:12 REGULAR+DIET ordered. EDMS 17:21 Financial registration complete. zo 17:36 B-Type Natiuretic Peptide Reviewed. br1 17:36 Basic Metabolic Profile Reviewed. br1 17:36 Cardiac Injury Profile Reviewed. br1 17:36 Troponin Reviewed. br1 17:36 -Influenza A&B Rapid Antigen - Nose Reviewed. br1 17:36 CT Chest Without Contrast Reviewed. br1 17:45 Ambulate Patient [facility] Pulse Oximetry ordered. br1 17:57 Albuterol-Ipratropium 3 ml Inhalation once ordered. br1 17:57 Solu-MEDROL 125 mg IVP once ordered. br1 18:04 [facility] Payment Agreement was scanned into [employer] and attached to record. zo 18:54 BED REQUEST+ADM ordered. EDMS 20:24 COMPLETE BLOOD COUNT Ordered. EDMS 20:24 BASIC METABOLIC PROFILE Ordered. EDMS 20:25 PHYSICAL THERAPY EVAL & TREAT ordered. EDMS 20:26 Admission / Observation Status ordered. EDMS 20:26 CONSISTENT CARBOHYDRATES ordered. EDMS 20:41 LACTIC ACID LEVEL, LACTATE Ordered. EDMS 20:41 C REACTIVE PROTEIN QUANTITATIV Ordered. EDMS 20:42 URINALYSIS Ordered. EDMS 20:42 BLOOD CULTURES Ordered. EDMS 20:42 BLOOD CULTURES Ordered. EDMS 20:42 SPUTUM CULTURE AND GRAM STAIN Ordered. EDMS 20:47 C REACTIVE PROTEIN QUANTITATIV Ordered. EDMS 20:47 FOLATE Ordered. EDMS 04/19 09:07 T-Sheet-- Draft Copy was scanned into [employer] and attached to record. gb Administered Medications: 04/18 16:40 Drug: Albuterol-Ipratropium 3 ml [ipratropium-albuterol 0.5 mg-3 mg(2.5 mg base)/3 mL rs5 nebulization soln (3 mL)] Route: Inhalation; 16:44 Not Given (denies pain presently): morphine 2 mg IVP once; prn pain jmk 18:06 Drug: Solu-MEDROL 125 mg [Solu-Medrol 500 mg intravenous solution (125 mg)] Route: IVP; k Site: right antecubital; 18:12 Drug: Albuterol-Ipratropium 3 ml [ipratropium-albuterol 0.5 mg-3 mg(2.5 mg base)/3 mL cs15 nebulization soln (3 mL)] Route: Inhalation; Signatures: Dispatcher [employer] EDMS Quintanilla, Angela, Citizenship Instructor Unit lbd Carin Maradiaga, RN RN kmg1 Grady Tao,RN PARRIS Tim, Lydia Escobar, RN Yokasta Jones, Saji Reg Chuy Herrera Brian, MD MD br1 Kory Lloyd RT rs5 Kei Jordan RT cs15 The chart was reviewed and I authenticate all verbal orders and agree with the evaluation and treatment provided.Corrections: (The following items were deleted from the chart) 20:44 20:42 FOLATE ordered. EDMS EDMS 20:45 20:45 C REACTIVE PROTEIN QUANTITATIV ordered. EDMS EDMS 20:45 20:45 C REACTIVE PROTEIN QUANTITATIV ordered. EDMS EDMS 20:45 20:45 FOLATE ordered. EDMS EDMS 20:45 20:45 FOLATE ordered. EDMS EDMS Attachments: 18:04 [facility] Payment Agreement zo 04/19 09:07 T-Sheet-- Draft Copy gb Chart Complete MTDD
--- NOTE | 2016-04-22 10:00 | EDDOCDS ---
Nurse's Notes [facility] Name: Nnamdi Rodriguez Age: 80 yrs Sex: Male : 1935 Arrival Date: 04/18/2016 Time: 15:12 Bed 17 Private MD: Daisha Bass P Diagnosis: Chronic obstructive pulmonary disease with (acute) exacerbation;Contusion of back wall of thorax;Abdominal aortic aneurysm, without rupture Presentation: 04/18 15:14 Presenting complaint: Patient states: states hemodialysis patient and developed SOB jmk during treatment today. Adult Sepsis Screening: The patient does not have new or worsening altered mentation. Patient's respiratory rate is less than 22. Systolic blood pressure is greater than 100. Patient has a qSOFA score of 0- Negative Sepsis Screen. Suicide/Homicide risk assessment- the patient denies having any suicidal and/or homicidal ideations and does not present with any other emotional, behavioral or mental health complaints. Status: Patient is not a employee service officer or dependent. Transition of care: patient was not received from another setting of care. 15:14 Acuity: SUJEY Level 3 [facility] 15:14 Method Of Arrival: Ambulance [facility] Triage Assessment: 15:22 General:. [facility] Historical: - Allergies: no known allergies; - Home Meds: 1. atorvastatin 20 mg oral tab 1 tab once daily (Last dose: 04/17/2016) 2. polyethylene glycol 3350 17 gram oral pwpk 1 packet once daily 3. prednisone 10 mg Oral tab once daily 4. fluconazole 100 mg Oral tab 1 tab once daily 5. gabapentin 100 mg Oral tab twice a day 6. clopidogrel 75 mg oral tab 7. hydrocodone-acetaminophen 5-325 mg Oral tab every 6 hours 8. zolpidem 10 mg Oral tab 1 tab once daily 9. atorvastatin 20 mg oral tab 1 tab once daily 10. Augmentin 875-125 mg Oral tab 1 tab every 12 hours 11. Uloric 40 mg oral tab 1 tab once daily 12. pantoprazole 40 mg oral TbEC 1 tab 2 times per day 13. metoprolol tartrate 50 mg Oral tab 1 tab 2 times per day 14. Doc-Q-Lace 100 mg oral cap 1 cap 2 times per day 15. doxycycline hyclate 100 mg Oral cap 1 cap every 12 hours 16. LEVEMIR twice a day 17. Spiriva with HandiHaler 18 mcg Inhl CpDv 1 cap once daily - PMHx: Chronic Renal Failure with dialysis; COPD; Diabetes - IDDM: uncontrolled; GERD; Hypercholesterolemia; Hypertension; ND; - PSHx: cardiac stents.; Dialysis Graft Construction, Arm; - Social history: Smoking status: Patient states former smoker of tobacco. No barriers to communication noted, The patient speaks fluent Latvian. - Family history: Not pertinent. - : The pt / caregiver states he / she is not on anticoagulants. Home medication list is obtained from patients' pharmacy. - Exposure Risk Screening:: None identified. Screenin:26 Screening information is obtained from the patient. Fall risk: At risk due to age. jmk Assistance ADL's: Requires assistance with housework, assistance is provided by. Abuse/DV Screen: The patient / caregiver reports he/she is:. Nutritional screening: No deficits noted. Advance Directives: Currently, there is a health care proxy, marcos rodriguez, daughter. There is an active DNR order There is no living will. There is no Power of Drug Abuse Program Coordinator. home support is adequate. Assessment: 15:26 General: Appears in no apparent distress, appears unkempt. responses gruffly spoken. jmk Did receive neb en route. reports sputum as dark batista in color. Speech is uninterrupted by resp effort. Decreased breath sounds bilaterally. No peripheral edema noted. Obese abdomen that is non distended with bowel sounds present x 4.Monitor is SR without ectopy.. Cardiovascular: Capillary refill < 3 seconds Clubbing of nail beds Heart tones S1 S2 present Edema is 1+ to left ankle and right ankle Chest pain is denied. Respiratory: Airway is patent Respiratory effort is even, unlabored, Respiratory pattern is regular, Breath sounds are diminished in left posterior lower lobe and right posterior lower lobe. 15:32 General: Appears Harsh congested cough noted that is presently non productive. dialysis jmk graft with + thrill to left upper arm. dressing intact over recent access.. 16:52 General: Appears Overall presentation unchanged. without work of breathing.. decreased jmk breath sounds bilaterally persist. Monitor is sr. Presently with sao2 95% 2lnc. denies pain. 18:07 General: Appears diet provided and is receptive. resistant to potential discharge.. jmk 18:55 General: Appears diet provided and taken fair. ambulated short distance. gait unsteady jmk with walker and fatigues with activity. Repeats that he does not feel comfortable with potential discharge. Maintained sat of 91% with 2 l nc during physical activity. provider aware.. 19:23 General: Appears in no apparent distress, comfortable, Behavior is appropriate for age, kmg1 Sitting in chair in room. Respiratory: Airway is patent Respiratory effort is even, unlabored, Respiratory pattern is regular, symmetrical. 19:36 General: Assisted patient back to stretcher per his request. kmg1 20:58 General: Appears in no apparent distress, unkempt, Behavior is appropriate for age, jo3 cooperative. General: Awaiting admission to [address] [place] [address] at this time. Aware of plan of care . Neurological: Level of Consciousness is awake, alert, Oriented to person, place, time. Cardiovascular: Chest pain is denied. Respiratory: Airway is patent Respiratory effort is even, unlabored, Respiratory pattern is regular, symmetrical. 21:21 Reassessment: Patient appears in no apparent distress at this time. Resting quietly on kmg1 stretcher. Ready for move to floor. Vital Signs: 15:23 BP 129 / 59 RA Sitting (auto/reg); Pulse 92; Resp 16; Temp 99.3(TE); Pulse Ox 99% on jrd R/A; Weight 86.18 kg (R); Height 5 ft. 4 in. (162.56 cm) (R); Pain 2/10; 15:36 Pulse 64 MON; jo3 18:50 BP 107 / 45 (auto/); jo3 18:50 Pulse 90 MON; Pulse Ox 79% ; jo3 19:56 Pulse Ox 95% ; jo3 20:47 Pulse 90 MON; jo3 20:57 BP 133 / 60; Pulse 88; Resp 18; Temp 99.2(TE); Pulse Ox 95% ; jo3 21:21 BP 115 / 64; Pulse 86; Resp 18; Pulse Ox 96% on 2 lpm NC; kmg1 15:23 Body Mass Index 32.61 (86.18 kg, 162.56 cm) jrd 15:23 Pain in the feet jrd Vitals: 21:01 Log In Time N/A - ambulance arrival. jo3 ED Course: 15:13 Patient visited by Angela Quintanilla, Chainstitch Hemmer. lbd 15:13 Daisha Bass is Private Physician. lbd 15:13 Patient moved to Waiting lbd 15:14 Patient moved to 17 lbd 15:15 Triage Initiated jmk 15:21 Nando Rogers MD is Attending Physician. br1 15:24 Patient visited by Jonathan Murphy PCA. jrd 15:26 The patient / caregiver is instructed regarding the plan of care and ED course. Cardiac jmk monitor on. 15:49 Patient visited by Nando Rogers MD. br1 16:03 B-Type Natiuretic Peptide Sent. jmk 16:03 Basic Metabolic Profile Sent. jmk 16:03 CBC with Diff Sent. jmk 16:03 Cardiac Injury Profile Sent. jmk 16:03 Troponin Sent. jmk 16:44 -Influenza A&B Rapid Antigen - Nose Sent. jmk 16:54 Patient visited by Grady Tao,PARRIS. jmk 17:02 CT Chest Without Contrast Returned. EDMS 17:45 Patient visited by Nando Rogers MD. br1 17:50 CT Spine,Thoracic W/o Contrast Returned. EDMS 18:04 [facility] Payment Agreement was scanned into [employer] and attached to record. zo 18:20 Patient visited by Grady Tao,PARRIS. jmk 18:38 CT Spine, Lumbar W/o Contrast Returned. EDMS 19:07 Patient visited by Jaspal Floyd PCA. kb5 19:08 Carin Maradiaga, RN is Primary Nurse. kmg1 19:25 Patient visited by Carin Maradiaga, PARRIS. kmg1 19:33 RavenaristeoDottie is Hospitalizing Provider. br1 20:06 Patient visited by Jaspal Floyd PCA. kb5 20:58 Patient visited by Paola Hood RN. jo3 20:59 Inserted saline lock: 20 gauge in right antecubital area Inserted prior to this PARRIS reyes giving care. No procedures done that require assistance. 21:01 Patient visited by Paola Hood RN. jo3 21:02 Patient visited by Jaspal Floyd PCA. kb5 04/19 09:07 T-Sheet-- Draft Copy was scanned into [employer] and attached to record. gb Administered Medications: 04/18 16:40 Drug: Albuterol-Ipratropium 3 ml [ipratropium-albuterol 0.5 mg-3 mg(2.5 mg base)/3 mL rs5 nebulization soln (3 mL)] Route: Inhalation; 16:44 Not Given (denies pain presently): morphine 2 mg IVP once; prn pain jmk 18:06 Drug: Solu-MEDROL 125 mg [Solu-Medrol 500 mg intravenous solution (125 mg)] Route: IVP; k Site: right antecubital; 18:12 Drug: Albuterol-Ipratropium 3 ml [ipratropium-albuterol 0.5 mg-3 mg(2.5 mg base)/3 mL cs15 nebulization soln (3 mL)] Route: Inhalation; RT: 16:40 Initial Med Neb Given as ordered Patient was instructed and evaluated on procedure rs5 Patient tolerated procedure well without adverse effect. Respiratory: Respiratory effort is even, unlabored, Respiratory pattern is regular symmetrical, Breath sounds are diminished bilaterally. 18:12 Subsequent Med Neb Given as ordered. Respiratory: Breath sounds with rhonchi in left cs15 upper lobe and left lower lobe Breath sounds are diminished bilaterally. Order Results: Lab Order: B-Type Natiuretic Peptide; SPEC'M 04/18/16 16:01 Test: BRAIN NATRIURETIC PEPTIDE; Value: 398; Range: <100; Abnormal: Above high normal; Units: PG/ML; Status: F Lab Order: Basic Metabolic Profile; SPEC'M 04/18/16 16:42 Test: GLUCOSE, FASTING; Value: 147; Range: 83-110; Abnormal: Above high normal; Units: MG/DL; Status: F Test: BLOOD UREA NITROGEN; Value: 22; Range: 7-18; Abnormal: Above high normal; Units: MG/DL; Status: F Test: CREATININE FOR GFR; Value: 3.99; Range: 0.70-1.30; Abnormal: Above high normal; Units: MG/DL; Status: F Test: GLOMERULAR FILTRATION RATE; Value: 15.5; Range: >35; Abnormal: Below low normal; Status: F Test: SODIUM LEVEL; Value: 136; Range: 136-145; Units: MEQ/L; Status: F Test: POTASSIUM SERUM; Value: 4.2; Range: 3.5-5.1; Units: MEQ/L; Status: F Test: CHLORIDE LEVEL; Value: 100; Range: 98-107; Units: MEQ/L; Status: F Test: CARBON DIOXIDE LEVEL; Value: 22; Range: 21-32; Units: MEQ/L; Status: F Test: ANION GAP; Value: 14; Range: 8-16; Units: MEQ/L; Status: F Test: CALCIUM LEVEL; Value: 9.0; Range: 8.8-10.2; Units: MG/DL; Status: F Test Note: ; Units are mL/min/1.73 m2 Chronic Kidney Disease Staging per NKF: Stage I & II GFR >=60 Normal to Mildly Decreased Stage III GFR 30-59 Moderately Decreased Stage IV GFR 15-29 Severely Decreased Stage V GFR <15 Very Little GFR Left ESRD GFR <15 on SUPPORT TECHNICIAN Lab Order: CBC with Diff; SPEC'M 04/18/16 16:01 Test: WHITE BLOOD COUNT; Value: 12.8; Range: 4.0-10.0; Abnormal: Above high normal; Units: K/mm3; Status: F Test: RED BLOOD COUNT; Value: 3.65; Range: 4.30-6.10; Abnormal: Below low normal; Units: M/mm3; Status: F Test: HEMOGLOBIN; Value: 11.8; Range: 14.0-18.0; Abnormal: Below low normal; Units: g/dl; Status: F Test: HEMATOCRIT; Value: 38.4; Range: 42.0-52.0; Abnormal: Below low normal; Units: %; Status: F Test: MEAN CORPUSCULAR VOLUME; Value: 105.3; Range: 80.0-96.0; Abnormal: Above high normal; Units: fl; Status: F Test: MEAN CORPUSCULAR HEMOGLOBIN; Value: 32.2; Range: 27.0-33.0; Units: pg; Status: F Test: MEAN CORPUSCULAR HGB CONC; Value: 30.6; Range: 32.0-36.5; Abnormal: Below low normal; Units: g/dl; Status: F Test: RED CELL DISTRIBUTION WIDTH; Value: 15.4; Range: 11.5-14.5; Abnormal: Above high normal; Units: %; Status: F Test: PLATELET COUNT, AUTOMATED; Value: 178; Range: 150-450; Units: k/mm3; Status: F Test: NEUTROPHILS %; Value: 85.7; Range: 36.0-66.0; Abnormal: Above high normal; Units: %; Status: F Test: LYMPH %; Value: 5.7; Range: 24.0-44.0; Abnormal: Below low normal; Units: %; Status: F Test: MONO %; Value: 5.4; Range: 0.0-5.0; Abnormal: Above high normal; Units: %; Status: F Test: EOS %; Value: 1.6; Range: 0.0-3.0; Units: %; Status: F Test: BASO %; Value: 0.1; Range: 0.0-1.0; Units: %; Status: F Test: LARGE UNSTAINED CELL %; Value: 1.5; Range: 0.0-4.0; Units: %; Status: F Test: NEUTROPHILS #; Value: 11.0; Range: 1.8-7.7; Abnormal: Above high normal; Units: K/mm3; Status: F Test: LYMPH #; Value: 0.7; Range: 1.5-4.5; Abnormal: Below low normal; Units: K/mm3; Status: F Test: MONO #; Value: 0.7; Range: 0.0-0.8; Units: K/mm3; Status: F Test: EOS #; Value: 0.2; Range: 0.0-0.50; Units: K/mm3; Status: F Test: BASO #; Value: 0.0; Range: 0.0-0.2; Units: K/mm3; Status: F Test: LARGE UNSTAINED CELL #; Value: 0.2; Range: 0.0-0.4; Units: K/mm3; Status: F Lab Order: Cardiac Injury Profile; SPEC'M 04/18/16 16:42 Test: CPK CREATINE PHOSPHOKINASE; Value: 45; Range: 39-308; Units: U/L; Status: F Test: CK-MB VALUE MASS; Value: 1.0; Range: 0.0-3.6; Units: NG/ML; Status: F Test: MB/CK RELATIVE INDEX; Value: 2.22; Range: < OR =4; Status: F Test Note: ; DIAGNOSIS CRITERIA MMB ng/ml Relative Index (RI) NON-AMI < or = 5 N/A WORKMAN ZONE > 5 < or = 4 AMI > 5 > 4 Lab Order: Troponin; SPEC'M 04/18/16 16:42 Test: TROPONIN I; Value: 0.02; Range: < 0.10; Units: NG/ML; Status: F Test Note: ; Troponin I Reference Interval for Siemens Stout LOCI: 99th Percentile= 0.00-0.045 ng/ml Risk Stratification: <= 0.10 ng/ml Decreased Risk for Adverse Clinical Events. 0.10-1.50 ng/ml Increased Risk for Adverse Clinical Events. Evaluation of additional criterion and/or repeat testing in 2-6 hours is suggested to rule out myocardial damage. >= 1.50 ng/ml Indicative of Myocardial Injury. Lab Order: -Influenza A&B Rapid Antigen - Nose; SPEC'M 04/18/16 16:40 Test: INFLUENZA A RAPID SCR by ICA; Value: INFLUENZA A RESULTS NEGATIVE; Status: F Test: INFLUENZA A RAPID SCR by ICA; Value: Comments:; Status: F Test: INFLUENZA B RAPID SCR by ICA; Value: INFLUENZA B RESULTS NEGATIVE; Status: F Test Note: ; The Influenza test is a direct rapid immunoassay for the qualitative detection of Influenza viral antigen. Cell culture (Viral Culture) testing should be considered to confirm NEGATIVE results and to assist in detecting other viruses that can provide similar clinical symptoms. Please contact the lab within 24 hours [phone]) if confirmatory testing is desired. Radiology Order: CT Chest Without Contrast Test: CT Chest Without Contrast REASON FOR EXAMINATION: Shortness of Breath; ; CT CHEST:; ; HISTORY: Dyspnea.; ; No contrast was utilized which decreases the sensitivity of the exam.; ; Comparison chest CT 11/13/2004 from [facility].; ; The lack of intravenous contrast decreases the sensitivity of the examination.; There is no gross mediastinal or hilar adenopathy or significant change from the; prior exam. There are no pleural or pericardial effusions. The imaged upper; abdomen shows cholelithiasis. Calcific atherosclerotic changes are seen in the; thoracic aorta and aortic arch vessels. Bone window technique throughout the; examination shows the osseous structures to be within normal limits for the; patient's age of 80 years.; ; Evaluation of the lung scott show respiratory motion artifact throughout the; exam obscuring the fine detail. There is evidence of biapical pleural blebs,; right greater than left, status quo. Asymmetric basilar densities are seen; bilaterally and rather heavily and in conjunction with motion artifact; a; significant nodule or abnormality opacity could be obscured. There is no evidence; of a spiculated lesion. A small amount of soft tissue density is seen in the; dependent portion of the trachea consistent with mucoid debris.; ; IMPRESSION:; 1. Chronic lung field findings and limitations as described above.; 2. Cholelithiasis.; 3. Other findings as described above.; ; Unreviewed; Radiology Order: CT Spine,Thoracic W/o Contrast Test: CT Spine,Thoracic W/o Contrast REASON FOR EXAMINATION: Trauma; ; CT THORACIC SPINE WITHOUT CONTRAST:; ; HISTORY: Trauma.; ; There is no acute fracture or subluxation. There is no definite disc bulge or; herniation. The spinal canal and the neural foramina are patent. Anterior; osteophytes are present throughout the thoracic spine.; ; IMPRESSION:; There is no acute fracture or subluxation.; ; Unreviewed; Radiology Order: CT Spine, Lumbar W/o Contrast Test: CT Spine, Lumbar W/o Contrast REASON FOR EXAMINATION: Trauma; CT lumbosacral spine without contrast, 04/18/2016:; ; Indication: Trauma.; ; Comparison: CT abdomen and pelvis, 03/31/2016.; ; Technique : STIR reconstructed contiguous spiral axial sections performed; through the lumbosacral spine from mid body T12 through proximal to mid sacrum.; Sagittal and coronal reconstructed images were also created.; ; Findings: There is a fracture in the lumbosacral spine. Moderate to advanced; degenerative disc changes noted L4-5 with moderate disc space narrowing, vacuum; disc phenomena, anterior and right lateral bridging marginal osteophytes. There; is moderate to advanced bilateral facet osteoarthritis at this level. There is a; 3 mm anterolisthesis L4 on L5. There is no spondylolysis at this level.; ; There is a fusiform distal abdominal aortic aneurysm, which measures 3.9 cm AP by; 3.5 cm transverse dimension at the L4 level with tapering to the iliac; bifurcation. Moderate diffuse atherosclerotic changes are noted in the aorta and; in the mesenteric arteries, especially superior mesenteric artery and in the; iliac arteries. There is no visualized retroperitoneal hematoma.; ; There is a 3 cm cyst off the medial lower pole right kidney. Multiple layering; calculi are present within the gallbladder lumen.; ; Impression:; 3.9 x 3.5 cm distal fusiform abdominal aortic aneurysm, tapering to the iliac; bifurcation. There is no retroperitoneal hematoma. No acute fracture.; ; Moderate to advanced degenerative disc changes at L4-5. There is 3 mm; anterolisthesis L4 on L5.; ; Cholelithiasis.; ; ; ; ; Unreviewed; Outcome: 19:33 Decision to Hospitalize by Provider. br1 20:59 Discharge Assessment: Patient awake, alert and oriented x 3. No cognitive and/or jo3 functional deficits noted. Patient verbalized understanding of disposition instructions. patient administered narcotics - no. The following High Risk Discharge criteria are identified: None. Admitted to Med/Surg accompanied by tech, via stretcher, with chart. Condition: stable. 21:01 CT Study completed. Property :Personal belongings accompany Pt. jo3 21:27 Patient left the ED. [facility] Signatures: Dispatcher [employer] EDMS Angela Quintanilla, Chainstitch Hemmer Unit lbd Carin Maradiaga, RN RN kmg1 Grady Tao,RN RN jmk Yokasta Elias, Reg Reg Paola Muñoz,RN RN jo3 Chuy Saavedra Kristopher, ENERGY OPERATIONS VICE PRESIDENT ENERGY OPERATIONS VICE PRESIDENT kb5 Nando Rogers MD MD br1 Kory Lloyd,RT RT rs5 Jonathan Murphy, ENERGY OPERATIONS VICE PRESIDENT ENERGY OPERATIONS VICE PRESIDENT jrd Kei Jordan,RT RT cs15 Corrections: (The following items were deleted from the chart) 20:58 18:50 BP 133 / 60; Pulse 88bpm; Resp 18bpm; Pulse Ox 95%; Temp 99.2F Temporal; jo3 jo3 Chart Complete MTDD
[2016-04-22 10:16] LABS: MEAN CORPUSCULAR HEMOGLOBIN 31.7 pg (27.0-33.0); MEAN CORPUSCULAR HGB CONC 31.1 g/dl (32.0-36.5); MEAN CORPUSCULAR VOLUME 101.8 fl (80.0-96.0); RED CELL DISTRIBUTION WIDTH 16.6 % (11.5-14.5)
[2016-04-22 10:45] LABS: POTASSIUM SERUM 3.4 MEQ/L (3.5-5.1)
[2016-04-22 10:59] LABS: CALCIUM LEVEL 7.9 MG/DL (8.8-10.2); CREATININE FOR GFR 4.89 MG/DL (0.70-1.30); GLOMERULAR FILTRATION RATE 12.3 (>35)
--- NOTE | 2016-04-22 12:01 | IPN ---
DATE: 04/22/2016 Mr. Rodriguez is seen this morning during dialysis. He is feeling well and denies any dyspnea, chest pain, nausea or vomiting. On physical exam, temperature is 95.8 degrees Fahrenheit, heart rate 73 per minute and respiratory rate 16 per minute. Blood pressure is 148/65 mmHg and oxygen saturation 95% on 2 liters oxygen. His head is atraumatic. Ears, nose and throat are unremarkable. Neck veins are not abnormally distended. His neck is supple and without any thyroid enlargement. Pupils are equal and reactive to light and sclera is anicteric. Heart sounds are regular with a systolic murmur grade 2/6. Lungs are clear to auscultation. Abdomen is soft, nontender and nondistended. Bowel sounds are normal and there is no palpable organomegaly. Extremities have chronic stasis with minimal leg edema. He has no cyanosis or clubbing. AV fistula in his left arm is working well. Today's labs show WBC count 10.0, hemoglobin 11.9 and hematocrit 38.1. Sodium is 139 and potassium 3.4. BUN 30 and creatinine 4.89. This chemistry was drawn during his hemodialysis. Yesterday, his potassium level was 4.5. PROBLEMS: 1. End-stage renal disease. The patient is currently being dialyzed. We are removing about 2 liters of fluid which he is tolerating very well. His potassium level is slightly low which is due to the labs being drawn during hemodialysis session. 2. Anemia. His anemia is stable and no intervention is indicated. 3. History of congestive heart failure. His volume status is reasonably well-compensated and we will continue to monitor him and try to keep his volume corrected with hemodialysis. 4. Generalized weakness. The patient is getting physical therapy. The patient and his family have decided for mcc placement, which is appropriate. 5. Peripheral vascular disease. The patient is not felt to be in need for any surgical intervention at this point. He has been seen by vascular surgery and podiatry.
[2016-04-22] MEDS ORDERED: LIDOCAINE 1% SDV 5 ML VIAL SQ ONE (12:15)
[2016-04-22] MEDS ORDERED: HEPARIN 1,000 UNITS/ML 10ML VIAL (FOR RADIOLOGY& DIALYSIS ONLY) IV ONE (12:15)
[2016-04-22] MEDS: CHECK TO SEE IF PATIENT IS RECEIVING DIALYSIS TODAY AND REFER TO THE VANCOMYCIN ORDER XX SCH (16:00)
--- NOTE | 2016-04-22 16:32 | IPNPDOC ---
Date of Service/Time 04/22/16 Progress Note SUBJECTIVE: The patient tells me that he feels about the same as though he did yesterday he denies any deterioration denies chest pain shortness of breath fevers chills lightheadedness or dizziness nausea or vomiting he has no complaints OBJECTIVE: PHYSICAL EXAMINATION: VITAL SIGNS: Please see below. GENERAL: Frail elderly man sitting up in bed he is in no acute distress HEENT: Pupils are equally round and reactive to light he has moist mucous membranes there is mild elevation in the central venous pressure CARDIOVASCULAR: Is 1 S2 regular. RESPIRATORY: Diminished breath sounds at the bases and scattered rales otherwise good movement air. ABDOMINAL: Bowel sounds present abdomen soft and nontender EXTREMITIES: 1+ edema bilaterally dry gangrene of numerous toes bilaterally distally LABORATORY DATA: Resolved leukocytosis mild hypokalemia labs drawn and hemodialysis Please see below. MICROBIOLOGY: Flu swab from the sixth is negative blood cultures from the sixth are also negative after 72 hours Please see below. IMAGING: CT of the chest revealed chronic lung findings cholelithiasis Lumbar spine CT revealed 3.9 x 3.5 she is former abdominal aortic aneurysm Thoracic spine CT revealed no acute fracture or subluxation DVT prophylaxis ordered?: Heparin every 8 ASSESSMENT AND PLAN: This is a 80-year-old man with possible pneumonia versus cellulitis in the setting of deconditioning from recent hospitalization. Problem #1 pneumonia versus cellulitis: The patient was admitted with potential diagnosis healthcare associated pneumonia however his cultures were negative at this time I will narrow his antibiotic spectrum Levaquin to continue for 4 additional days to complete 10 day course of antibiotics that should cover him quite well for healthcare associated pneumonia in addition to cellulitis associated with gangrene of his lower extremity. He does not appear to be septic at this time he is had no significant fevers and his leukocytosis has resolved Problem #2 end-stage renal disease on hemodialysis: Dr. Bass his help is greatly appreciated the patient continued on his regular Thursday hemodialysis with fluid removal for volume optimization Problem #3 Coronary artery disease: The patient is on aspirin Plavix statin and beta sacha Problem #4 insomnia: The patient is on Ambien Problem #5 gout: The patient on caloric Problem #6 diabetes: The patient is on insulin sliding scale as well as Neurontin and Percocet for neuropathic pain Problem #7 gastroesophageal reflux disease patient is on Protonix Problem #8 COPD: Chronic hypoxic respiratory failure the patient on chronic home O2 he is on nebulizer treatments he appears to be at his baseline respiratory status 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 The patient has abdominal aortic aneurysm that require follow-up with his outpatient vascular surgeon as well. The patient's deconditioned status and poor ability with mobility I think is related to pain associated with his peripheral vascular disease and dry gangrene he continues to work with physical therapy and will likely require some placement DISPOSITION: Pending PT. VS, I&O, 24H, Fishbone VS, I&O, 24H, Fishbone Vital Signs Date Time Temp Pulse Resp B/P Pulse Ox O2 Delivery O2 Flow Rate FiO2 04/22/16 14:21 16 04/22/16 07:30 Nasal Cannula 2.0 04/22/16 06:00 95.8 73 148/65 95 I&O- Last 24 Hours up to 6 AM 04/22/16 06:00 Intake Total 1400 ml Output Total 0 ml Balance 1400 ml Laboratory Tests 2 04/21/16 16:41: Bedside Glucose (Misc Panel) 169H 04/21/16 20:11: Bedside Glucose (Misc Panel) 229H 04/22/16 08:17: Bedside Glucose (Misc Panel) 183H 04/22/16 09:55: Anion Gap 12, Blood Urea Nitrogen 30H, Creatinine 4.89H, Sodium Level 139, Potassium Level 3.4#L, Chloride Level 100, Carbon Dioxide Level 27, Calcium Level 7.9L, Glomerular Filtration Rate 12.3L 04/22/16 14:04: Bedside Glucose (Misc Panel) 116H Laboratory Tests 04/22/16 09:55 Calcium Level 7.9 L, Red Blood Count 3.74 L, Mean Corpuscular Volume 101.8 H, Mean Corpuscular Hemoglobin 31.7, Mean Corpuscular Hemoglobin Concent 31.1 L, Red Cell Distribution Width 16.6 H Microbiology 04/18/16 Blood Culture - Preliminary, Resulted No Growth after 72 hours. All specime... 04/18/16 Blood Culture - Preliminary, Resulted No Growth after 72 hours. All specime... 04/18/16 Influenza Virus Type A Antigen - Final, Complete 04/18/16 Influenza Virus Type B Antigen - Final, Complete SHARRON MONIQUE MD Apr 22, 2016 16:32
[2016-04-22] MEDS ORDERED: LevoFLOXacin 500 MG TABLET PO SCH (18:00)
[2016-04-22] MEDS: ONDANSETRON 4MG/2ML VIAL (J2405) IV PRN (20:51)
[2016-04-22 22:00] VITALS: BP 133/57
[2016-04-23] MEDS: IPRATROPIUM 0.5MG/ALBUTEROL 2.5MG INH SOL UD 3ML (DUONEB)(J7620) NEB SCH ×4 (02:20→20:43)
[2016-04-23 06:00] VITALS: BP 123/58
[2016-04-23] MEDS: HEPARIN SOD (PORCINE) 5000 UNITS/ML VIAL SC SCH ×3 (06:51→21:23)
[2016-04-23 07:01] LABS: MEAN CORPUSCULAR HEMOGLOBIN 31.5 pg (27.0-33.0); MEAN CORPUSCULAR HGB CONC 29.9 g/dl (32.0-36.5); MEAN CORPUSCULAR VOLUME 105.4 fl (80.0-96.0); RED CELL DISTRIBUTION WIDTH 16.6 % (11.5-14.5); WHITE BLOOD COUNT 11.4 K/mm3 (4.0-10.0)
[2016-04-23 07:22] LABS: CALCIUM LEVEL 8.3 MG/DL (8.8-10.2); CREATININE FOR GFR 5.39 MG/DL (0.70-1.30); POTASSIUM SERUM 4.2 MEQ/L (3.5-5.1)
[2016-04-23] MEDS: PANTOPRAZOLE 40MG TAB (PROTONIX) PO SCH ×2 (09:06→21:23)
[2016-04-23] MEDS: METOPROLOL TART 50 MG TAB PO SCH ×2 (09:06→21:30)
[2016-04-23] MEDS: HumaLOG INSULIN (NovoLOG) PER UNIT SC SCH ×4 (09:06→21:00)
[2016-04-23] MEDS: ATORVASTATIN 20 MG TAB PO SCH (09:07)
[2016-04-23] MEDS: ASPIRIN 81 MG ENTERIC TAB PO SCH (09:07)
[2016-04-23] MEDS: GABAPENTIN 100 MG CAP PO SCH ×2 (09:07→21:23)
[2016-04-23] MEDS: CLOPIDOGREL 75 MG TAB PO SCH (09:07)
[2016-04-23] MEDS: guaiFENesin ER 600 MG TAB PO SCH ×2 (09:07→21:23)
[2016-04-23] MEDS: FEBUXOSTAT 40 MG TABLET (ULORIC) PO SCH (09:07)
[2016-04-23] MEDS: MULTIVITAMINS/MINERALS THERAP 1 TAB PO SCH (09:07)
--- NOTE | 2016-04-23 12:20 | IPNPDOC ---
Date of Service/Time Apr 18, 2016 at 15:12 Progress Note DATE OF ENCOUNTER: 04/23/2016 SUBJECTIVE: Patient was seen this morning at bedside. No acute overnight issues. He denies any acute complaints. He continues to work with physical therapy. No chest pain or shortness of breath. No nausea, vomiting, abdominal pain or diarrhea. No fevers or chills. He denies any pain. OBJECTIVE: Vital Signs Date Time Temp Pulse Resp B/P Pulse Ox O2 Delivery O2 Flow Rate FiO2 04/23/16 09:06 75 123/58 04/23/16 06:00 98.3 18 97 Room Air 04/22/16 21:00 2.0 I&O- Last 24 Hours up to 6 AM 04/23/16 06:00 Intake Total 300 ml Output Total 2000 ml Balance -1700 ml GENERAL: Patient is alert and oriented, in no acute distress. HEENT: Normocephalic, atraumatic. Extraocular muscles are intact. Moist mucosa. NECK: Supple. Jugular venous pulsations are not significantly elevated. HEART: Regular rate and rhythm. No murmur appreciated. LUNGS: Clear to auscultation bilaterally. No rales, rhonchi or wheezing. ABDOMEN: Soft, nontender, nondistended. Bowel sounds are present EXTREMITIES: No cyanosis or lower extremity edema. He does have left lower extremity with vascular changes as well as gangrene of his toes. NEUROLOGIC: No focal deficits. LABORATORY DATA: 04/23/16 06:44 Calcium Level 8.3 L, Red Blood Count 3.86 L, Mean Corpuscular Volume 105.4 H, Mean Corpuscular Hemoglobin 31.5, Mean Corpuscular Hemoglobin Concent 29.9 L, Red Cell Distribution Width 16.6 H, Anion Gap 11 Microbiology: Blood cultures have shown no growth thus far. ASSESSMENT/PLAN Mr. Rodriguez is an 80-year-old male with past medical history significant for end- stage renal disease on hemodialysis every Thursday, , Thursday, coronary artery disease, hypertension, diabetes, gangrene of bilateral lower extremity toes after recent cardiac catheterization, COPD who was recently discharged from the hospital about one week ago and now has been readmitted after a fall with weakness and inability to ambulate. 1. End-stage renal disease on hemodialysis. Patient had hemodialysis yesterday which she tolerated. Total of 2000 mL of fluid was removed. Continue with regular schedule of Tuesdays, and Saturdays. Electrolytes are stable. 2. Generalized weakness and recent fall. The patient has gangrene of his toes and peripheral vascular disease, which affects his ambulation. He is currently receiving physical therapy. instructor ground services is involved in discharge planning, either rehabilitation versus home with services is being discussed at this time. 3. History of chronic systolic congestive heart failure. Volume status is stable at this time. Continue to correct volume status with hemodialysis. 4. Leukocytosis and elevated CRP. Source of infection is not clear. Per primary team, pneumonia versus cellulitis. He is currently receiving Levaquin. 5. Bilateral dry gangrene of the toes and peripheral vascular disease. She was evaluated by vascular surgery and podiatry and no intervention is being done at this time. 6. Hypertension. Blood pressure stable. Continue metoprolol 50 mg twice daily. 7. Anemia in end-stage renal disease. Hemoglobin is currently stable. He received a dose of Aranesp on April 19. 8. Chronic gout. The patient continues to be on Uloric daily. VS, I&O, 24H, Fishbone VS, I&O, 24H, Fishbone GME ATTESTATION GME ATTESTATION My preceptor for this patient encounter was physically present in the building during the encounter and was fully available. As needed, all aspects of the patient interview, examination, medical decision making process, and medical care plan development were reviewed and approved by the preceptor. Preceptor is aware and concurs with the plan as stated in the body of this note and will attest to such by his/her cosignature. ADIN OATES, Apr 23, 2016 12:20
[2016-04-23 14:00] VITALS: BP 131/64
--- NOTE | 2016-04-23 14:06 | IPNPDOC ---
Date of Service/Time 04/23/16 Progress Note SUBJECTIVE: The patient tells me that he feels tired and weak, he does not report any confusion to me he is oriented to person year month situation at this time as per nursing staff he was more disoriented early this a.m. OBJECTIVE: PHYSICAL EXAMINATION: VITAL SIGNS: Please see below. GENERAL: Frail elderly man sitting up in bed he is in no acute distress he does appear tired HEENT: Pupils are equally round and reactive to light he has moist mucous membranes there is mild elevation in the central venous pressure CARDIOVASCULAR: s1 S2 regular. RESPIRATORY: Diminished breath sounds at the bases and scattered rales otherwise good movement air. ABDOMINAL: Bowel sounds present abdomen soft and nontender EXTREMITIES: 1+ edema bilaterally dry gangrene of numerous toes bilaterally distally LABORATORY DATA: Resolved leukocytosis Please see below. MICROBIOLOGY: Flu swab from the sixth is negative, blood cultures from the sixth are also negative after 72 hours Please see below. IMAGING: CT of the chest revealed chronic lung findings cholelithiasis Lumbar spine CT revealed 3.9 x 3.5 she is former abdominal aortic aneurysm Thoracic spine CT revealed no acute fracture or subluxation DVT prophylaxis ordered?: Heparin every 8 ASSESSMENT AND PLAN: This is a 80-year-old man with possible likely cellulitis in the setting of deconditioning from recent hospitalization. Problem #1 pneumonia versus cellulitis: The patient was admitted with potential diagnosis healthcare associated pneumonia however his cultures were negative at this time CT chest has also been unrevealing as such I feel pneumonia is much less likely. Yesterday he was narrowed his antibiotic spectrum Levaquin for 1 dose however he is more lethargic today and I'm concerned he may have had an adverse reaction of this given he is rales patient that one dose and cover him with complete a seven-day course of antibiotics for cellulitis. At this time I' ll discontinue antibiotics. He does not appear to be septic at this time he is had no significant fevers and his leukocytosis has resolved Problem #2 end-stage renal disease on hemodialysis: Dr. Bass his help is greatly appreciated the patient continued on his regular Thursday hemodialysis with fluid removal for volume optimization he did at 2 L removed yesterday Problem #3 Coronary artery disease: The patient is on aspirin Plavix statin and beta sacha Problem #4 insomnia: The patient is on Ambien Problem #5 gout: The patient on uloric Problem #6 diabetes: The patient is on insulin sliding scale as well as Neurontin and Percocet for neuropathic pain Problem #7 gastroesophageal reflux disease patient is on Protonix Problem #8 COPD: Chronic hypoxic respiratory failure the patient on chronic home O2 he is on nebulizer treatments he appears to be at his baseline respiratory status 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 The patient has abdominal aortic aneurysm that require follow-up with his outpatient vascular surgeon as well. The patient's deconditioned status and poor ability with mobility I think is related to pain associated with his peripheral vascular disease and dry gangrene he continues to work with physical therapy and will likely require some placement DISPOSITION: Pending PT. VS, I&O, 24H, Fishbone VS, I&O, 24H, Fishbone Vital Signs Date Time Temp Pulse Resp B/P Pulse Ox O2 Delivery O2 Flow Rate FiO2 04/23/16 09:06 75 123/58 04/23/16 06:00 98.3 18 97 Room Air 04/22/16 21:00 2.0 I&O- Last 24 Hours up to 6 AM 04/23/16 05:59 Intake Total 300 ml Output Total 2000 ml Balance -1700 ml Laboratory Tests 2 04/22/16 14:04: Bedside Glucose (Misc Panel) 116H 04/22/16 16:45: Bedside Glucose (Misc Panel) 140H 04/22/16 20:52: Bedside Glucose (Misc Panel) 119H 04/23/16 06:44: Anion Gap 11, Blood Urea Nitrogen 24H, Creatinine 5.39H, Sodium Level 142, Potassium Level 4.2#, Chloride Level 102, Carbon Dioxide Level 29, Calcium Level 8.3L, Glomerular Filtration Rate 11.0L 04/23/16 11:46: Bedside Glucose (Misc Panel) 152H Laboratory Tests 04/23/16 06:44 Calcium Level 8.3 L, Red Blood Count 3.86 L, Mean Corpuscular Volume 105.4 H, Mean Corpuscular Hemoglobin 31.5, Mean Corpuscular Hemoglobin Concent 29.9 L, Red Cell Distribution Width 16.6 H Microbiology 04/18/16 Blood Culture - Preliminary, Resulted No Growth after 72 hours. All specime... 04/18/16 Blood Culture - Preliminary, Resulted No Growth after 72 hours. All specime... 04/18/16 Influenza Virus Type A Antigen - Final, Complete 04/18/16 Influenza Virus Type B Antigen - Final, Complete SHARRON MONIQUE MD Apr 23, 2016 14:06
[2016-04-23 14:28] LABS: ABG PARTIAL PRESSURE CO2 43.9 mmHg (35.0-45.0); ABG PARTIAL PRESSURE O2 88.1 mmHg (75.0-100.0); ABG TOTAL CO2 24.2 MEQ/L (23.0-31.0); ABG pH (ARTERIAL) 7.334 UNITS (7.350-7.450)
[2016-04-23 14:29] LABS: ABG HCO3 22.8 MEQ/L (22.0-26.0)
--- NOTE | 2016-04-23 15:57 | REP ---
CT brain without contrast: History: Lethargy, question acute intracranial pathology. Comparison study: June 14, 2010. Findings: Digital lateral roving department supervisor view of the calvarium is unremarkable. Bone window settings show no bony destructive lesion or skull fracture. Vascular calcification is visible in the distal vertebral and distal carotid arteries. On soft tissue window settings, there is diffuse mild to moderate cerebral atrophy and concordant ventricular enlargement, unchanged. There is no evidence of intracranial hemorrhage. No acute infarction is seen. No mass, extra-axial fluid collection or midline shift is seen. Impression: Vascular calcification and diffuse atrophy. No acute intracranial abnormality. Signed by Brad Posada MD 04/23/2016 04:50 P
[2016-04-23 22:00] VITALS: BP 139/64
[2016-04-24] MEDS: IPRATROPIUM 0.5MG/ALBUTEROL 2.5MG INH SOL UD 3ML (DUONEB)(J7620) NEB SCH ×4 (01:28→20:52)
[2016-04-24 06:00] VITALS: BP 146/68
[2016-04-24] MEDS: HEPARIN SOD (PORCINE) 5000 UNITS/ML VIAL SC SCH ×3 (06:50→21:25)
[2016-04-24] MEDS: ASPIRIN 81 MG ENTERIC TAB PO SCH (06:50)
[2016-04-24] MEDS: FEBUXOSTAT 40 MG TABLET (ULORIC) PO SCH (06:50)
[2016-04-24] MEDS: MULTIVITAMINS/MINERALS THERAP 1 TAB PO SCH (06:50)
[2016-04-24] MEDS: GABAPENTIN 100 MG CAP PO SCH ×2 (06:50→21:26)
[2016-04-24] MEDS: guaiFENesin ER 600 MG TAB PO SCH ×2 (06:51→21:26)
[2016-04-24] MEDS: ATORVASTATIN 20 MG TAB PO SCH (06:51)
[2016-04-24] MEDS: PANTOPRAZOLE 40MG TAB (PROTONIX) PO SCH ×2 (06:51→21:26)
[2016-04-24] MEDS: CLOPIDOGREL 75 MG TAB PO SCH (06:51)
[2016-04-24 07:08] LABS: CALCIUM LEVEL 8.2 MG/DL (8.8-10.2); CREATININE FOR GFR 7.24 MG/DL (0.70-1.30); GLOMERULAR FILTRATION RATE 7.8 (>35); POTASSIUM SERUM 4.8 MEQ/L (3.5-5.1)
[2016-04-24] MEDS: HumaLOG INSULIN (NovoLOG) PER UNIT SC SCH ×4 (08:07→21:00)
[2016-04-24] MEDS: METOPROLOL TART 50 MG TAB PO SCH ×2 (08:08→21:26)
[2016-04-24] MEDS ORDERED: LIDOCAINE 1% SDV 5 ML VIAL SQ ONE (10:45)
[2016-04-24] MEDS ORDERED: HEPARIN 1,000 UNITS/ML 10ML VIAL (FOR RADIOLOGY& DIALYSIS ONLY) IV ONE (10:45)
--- NOTE | 2016-04-24 10:53 | IPN ---
DATE: 04/24/2016 Mr. Rodriguez is seen this morning during dialysis on his bedside. He has complained of difficulty breathing and worsening cough. He was on Levaquin and vancomycin which had been stopped just recently. The patient denies any hemoptysis or pleuritic type of chest pain. He denies any nausea or vomiting. PHYSICAL EXAMINATION: Temperature 97.8 degrees Fahrenheit, heart rate 75 per minute and respiratory rate 18 per minute. Blood pressure 146/68 mmHg and oxygen saturation 98% on 2 liters oxygen. His head is atraumatic. Ears, nose and throat are unremarkable. Neck is supple and neck veins are mildly distended. There is no thyroid enlargement and trachea is midline. Heart sounds are regular and lungs have bilateral scattered rhonchi. Abdomen soft, nontender and without any palpable organomegaly. Bowel sounds are normal. Extremities have no cyanosis or clubbing. His left arm AV fistula is functioning and currently being used for dialysis. Bilateral toe gangrenous changes are unchanged and without any signs of infection. The patient did not have any labs today. Yesterday his white cell count was 11.4, hemoglobin 12.2 and hematocrit 40.7. Sodium was 141 today and potassium was 4.8. BUN 35 and creatinine 7.24. PROBLEMS: 1. End-stage renal disease. The patient is currently being dialyzed. He is tolerating his dialysis treatment very well. His electrolytes are all within normal range. 2. Cough and difficulty breathing. The patient initially had pneumonia and has been treated with Levaquin and intravenous vancomycin. I am concerned about possibility of aspiration or a combination of fluid overload and pneumonia. We will repeat a chest x-ray after dialysis today. We are trying to remove 3 liters of fluid with dialysis today. Depending upon his chest x-ray results, further plans will be made. I will defer any antibiotic plans to hospitalist service. 3. Anemia. This has not been an issue. His CBC will be checked again tomorrow. 4. Peripheral vascular disease. The patient has no change in his toes and there is no active infection in the toes. His gangrene is dry and does not need any acute intervention, DISPOSITION: The patient is not stable for discharge at this point. I feel that he will require subacute rehabilitation.
[2016-04-24 14:00] VITALS: BP 137/62
--- NOTE | 2016-04-24 16:57 | IPNPDOC ---
Date of Service/Time 04/24/16 Progress Note SUBJECTIVE: The patient tells me that he feels tired and weak OBJECTIVE: PHYSICAL EXAMINATION: VITAL SIGNS: Please see below. GENERAL: Frail elderly man sitting up in bed he is in no acute distress he does appear tired he does cough during exam HEENT: Pupils are equally round and reactive to light he has moist mucous membranes there is mild elevation in the central venous pressure CARDIOVASCULAR: s1 S2 regular. RESPIRATORY: Diminished breath sounds at the bases and scattered rales otherwise good movement air. ABDOMINAL: Bowel sounds present abdomen soft and nontender EXTREMITIES: 1+ edema bilaterally dry gangrene of numerous toes bilaterally distally, significantly improved volume status on exam LABORATORY DATA: Resolved leukocytosis Please see below. MICROBIOLOGY: Flu swab from the sixth is negative, blood cultures from the sixth are also negative after 72 hours Please see below. IMAGING: CT of the chest revealed chronic lung findings cholelithiasis Lumbar spine CT revealed 3.9 x 3.5 she is former abdominal aortic aneurysm Thoracic spine CT revealed no acute fracture or subluxation DVT prophylaxis ordered?: Heparin every 8 ASSESSMENT AND PLAN: This is a 80-year-old man with possible likely cellulitis in the setting of deconditioning from recent hospitalization. Problem #1 pneumonia versus cellulitis: The patient was admitted with potential diagnosis healthcare associated pneumonia however his cultures were negative at this time CT chest has also been unrevealing as such I feel pneumonia is much less likely over the last 24 hours is developed a worsening cough and appears more lethargic and gives consent for possible aspiration and will place a swallow eval Dr. Bass was ordered the patient for chest x-ray. After 7 days of fairly broad-spectrum antibiotics he's been discontinued from all antibiotics this time. Problem #2 end-stage renal disease on hemodialysis: Dr. Bass his help is greatly appreciated the patient continued on his regular Thursday hemodialysis with fluid removal for volume optimization he did at 2 L removed yesterday Problem #3 Coronary artery disease: The patient is on aspirin Plavix statin and beta sacha Problem #4 insomnia: The patient is on Ambien Problem #5 gout: The patient on uloric Problem #6 diabetes: The patient is on insulin sliding scale as well as Neurontin and Percocet for neuropathic pain Problem #7 gastroesophageal reflux disease patient is on Protonix Problem #8 COPD: Chronic hypoxic respiratory failure the patient on chronic home O2 he is on nebulizer treatments he appears to be at his baseline respiratory status 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 The patient has abdominal aortic aneurysm that require follow-up with his outpatient vascular surgeon as well. The patient's deconditioned status and poor ability with mobility I think is related to pain associated with his peripheral vascular disease and dry gangrene he continues to work with physical therapy and will likely require some placement Problem #11 abdominal pain: This did occur during hemodialysis of resolved with returning blood to him due to concern for intestinal angina Dr. Bass inform me that the patient recently went angioplasty of his SMA we will recheck CT angiogram of the abdomen to assess for any obstruction or clot tomorrow and continue with regular dialysis on Thursday DISPOSITION: Ultimately he will likely require placement VS, I&O, 24H, Fishbone VS, I&O, 24H, Fishbone Vital Signs Date Time Temp Pulse Resp B/P Pulse Ox O2 Delivery O2 Flow Rate FiO2 04/24/16 09:00 Nasal Cannula 2.0 04/24/16 08:08 75 146/68 04/24/16 06:00 97.8 18 98 I&O- Last 24 Hours up to 6 AM 04/24/16 06:00 Intake Total 600 ml Output Total 0 ml Balance 600 ml Laboratory Tests 2 04/23/16 17:14: Bedside Glucose (Misc Panel) 51L 04/23/16 18:20: Bedside Glucose (Misc Panel) 92 04/23/16 20:00: Bedside Glucose (Misc Panel) 116H 04/24/16 06:27: Anion Gap 11, Blood Urea Nitrogen 35H, Creatinine 7.24H, Sodium Level 141, Potassium Level 4.8, Chloride Level 102, Carbon Dioxide Level 28, Calcium Level 8.2L, Glomerular Filtration Rate 7.8L 04/24/16 07:14: Bedside Glucose (Misc Panel) 145H 04/24/16 13:39: Bedside Glucose (Misc Panel) 132H Laboratory Tests 04/24/16 06:27 Calcium Level 8.2 L Microbiology 04/18/16 Blood Culture - Final, Complete NO GROWTH AFTER 5 DAYS 04/18/16 Blood Culture - Final, Complete NO GROWTH AFTER 5 DAYS 04/18/16 Influenza Virus Type A Antigen - Final, Complete 04/18/16 Influenza Virus Type B Antigen - Final, Complete SHARRON MONIQUE MD Apr 24, 2016 16:57
--- NOTE | 2016-04-24 17:29 | REP ---
CHEST, TWO VIEWS: HISTORY: Cough. COMPARISON: 04/01/2016 Increased density is present in the lower lobes consistent with bibasilar atelectasis or infiltrates. The cardiac silhouette is enlarged. The pulmonary vasculature is normal in appearance. The bony structure is intact. IMPRESSION: 1. Bibasilar atelectasis or infiltrates. 2. Cardiomegaly. Signed by Alin Luke MD 04/25/2016 08:20 A
[2016-04-24 22:00] VITALS: BP 127/61
[2016-04-25] MEDS: IPRATROPIUM 0.5MG/ALBUTEROL 2.5MG INH SOL UD 3ML (DUONEB)(J7620) NEB SCH ×4 (02:00→20:07)
[2016-04-25] MEDS: HEPARIN SOD (PORCINE) 5000 UNITS/ML VIAL SC SCH ×3 (05:30→20:23)
[2016-04-25 06:00] VITALS: BP 142/70
[2016-04-25 06:47] LABS: MEAN CORPUSCULAR HEMOGLOBIN 32.1 pg (27.0-33.0); MEAN CORPUSCULAR HGB CONC 30.6 g/dl (32.0-36.5); MEAN CORPUSCULAR VOLUME 104.7 fl (80.0-96.0); RED CELL DISTRIBUTION WIDTH 17.4 % (11.5-14.5); WHITE BLOOD COUNT 13.4 K/mm3 (4.0-10.0)
[2016-04-25 07:00] LABS: CALCIUM LEVEL 9.1 MG/DL (8.8-10.2); CREATININE FOR GFR 5.71 MG/DL (0.70-1.30); GLOMERULAR FILTRATION RATE 10.3 (>35); POTASSIUM SERUM 4.9 MEQ/L (3.5-5.1)
[2016-04-25] MEDS: HumaLOG INSULIN (NovoLOG) PER UNIT SC SCH ×4 (07:30→20:12)
[2016-04-25] MEDS ORDERED: ISOVUE-370 76% 100ML VIAL (Q9967) As Ordered ONE (10:01)
[2016-04-25] MEDS: FEBUXOSTAT 40 MG TABLET (ULORIC) PO SCH (11:18)
[2016-04-25] MEDS: ASPIRIN 81 MG ENTERIC TAB PO SCH (11:19)
[2016-04-25] MEDS: MULTIVITAMINS/MINERALS THERAP 1 TAB PO SCH (11:19)
[2016-04-25] MEDS: GABAPENTIN 100 MG CAP PO SCH ×3 (11:19→20:22)
[2016-04-25] MEDS: guaiFENesin ER 600 MG TAB PO SCH ×2 (11:19→20:23)
[2016-04-25] MEDS: CLOPIDOGREL 75 MG TAB PO SCH (11:20)
[2016-04-25] MEDS: PANTOPRAZOLE 40MG TAB (PROTONIX) PO SCH ×2 (11:20→20:22)
[2016-04-25] MEDS: ATORVASTATIN 20 MG TAB PO SCH (11:20)
--- NOTE | 2016-04-25 11:25 | IPNPDOC ---
Date of Service/Time Apr 18, 2016 at 15:12 Progress Note DATE OF ENCOUNTER: 04/25/2016 SUBJECTIVE: Patient was seen this morning at bedside. Patient reports that he was having some abdominal pain yesterday. This morning he also reports some abdominal pain mainly on the left side. He has history of intestinal angina and a CT angiogram was ordered for this morning. He reports that he had some nausea after hemodialysis yesterday. No emesis. He denies any nausea this morning. No diarrhea. No fevers or chills. No chest pain or shortness of breath. He remains on 2 L of nasal cannula. OBJECTIVE: Vital Signs Date Time Temp Pulse Resp B/P Pulse Ox O2 Delivery O2 Flow Rate FiO2 04/25/16 06:00 96.9 69 18 142/70 97 Nasal Cannula 2.0 I&O- Last 24 Hours up to 6 AM 04/25/16 06:00 Intake Total 460 ml Output Total 2500 ml Balance -2040 ml GENERAL: Patient is alert and oriented, in no acute distress. HEENT: Normocephalic, atraumatic. Extraocular muscles are intact. Moist mucosa. NECK: Supple. Jugular venous pulsations are not significantly elevated. HEART: Regular rate and rhythm. No murmur appreciated. LUNGS: Clear to auscultation bilaterally. No rales, rhonchi or wheezing. ABDOMEN: Soft, nondistended. Although patient reports abdominal pain, he denies any tenderness to palpation. Bowel sounds are present. No rebound, guarding or rigidity. BACK: He has ecchymoses on the left side secondary to fall. EXTREMITIES: No cyanosis or lower extremity edema. He does have left lower extremity with vascular changes as well as dry gangrene of his toes. NEUROLOGIC: No focal deficits. LABORATORY DATA: 04/25/16 06:28 Red Blood Count 3.87 L, Mean Corpuscular Volume 104.7 H, Mean Corpuscular Hemoglobin 32.1, Mean Corpuscular Hemoglobin Concentration 30.6 L, Red Cell Distribution Width 17.4 H, Anion Gap 7L, Calcium Level 9.1, Glomerular Filtration Rate 10.3L ASSESSMENT/PLAN Mr. Rodriguez is an 80-year-old male with past medical history significant for end- stage renal disease on hemodialysis every Thursday, , Thursday, coronary artery disease, hypertension, diabetes, gangrene of bilateral lower extremity toes after recent cardiac catheterization, COPD who was recently discharged from the hospital and now has been readmitted after a fall with weakness and inability to ambulate. 1. End-stage renal disease on hemodialysis. Patient had hemodialysis yesterday where 2500ml of fluid was removed. Continue with regular schedule of Tuesdays, and Saturdays. Electrolytes are stable. 2. Abdominal pain. 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 He had an episode of this yesterday during hemodialysis. He has history of previous angioplasty of his mesenteric artery. 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 Interventional radiology consult has been placed for angiogram which patient will likely have done next week. 3. Generalized weakness and recent fall. The patient has gangrene of his toes and peripheral vascular disease, which affects his ambulation. Patient will require physical therapy and possibly rehabilitation. 3. History of chronic systolic congestive heart failure. Volume status is stable at this time. Continue to correct volume status with hemodialysis. 4. Leukocytosis in the setting of possibly pneumonia versus cellulitis. He has received a week of antibiotics. Repeat chest x-ray done yesterday shows cardiomegaly, atelectasis or infiltrate. We'll defer to primary team for any further management. 5. Bilateral dry gangrene of the toes and peripheral vascular disease. He was evaluated by vascular surgery and podiatry and no intervention is being done at this time. 6. Hypertension. Blood pressure stable on metoprolol 50 mg twice daily. 7. Anemia in end-stage renal disease. Hemoglobin is currently stable. He receives Aranesp as needed during hemodialysis. 8. Chronic gout. The patient continues to be on Uloric daily. GME ATTESTATION GME ATTESTATION My preceptor for this patient encounter was physically present in the building during the encounter and was fully available. As needed, all aspects of the patient interview, examination, medical decision making process, and medical care plan development were reviewed and approved by the preceptor. Preceptor is aware and concurs with the plan as stated in the body of this note and will attest to such by his/her cosignature. ADIN OATES DO Apr 25, 2016 11:24
[2016-04-25] MEDS: METOPROLOL TART 50 MG TAB PO SCH ×2 (11:28→20:22)
[2016-04-25] MEDS: PERCOCET 5MG/325MG TAB PO PRN (12:16)
--- NOTE | 2016-04-25 12:21 | IPNPDOC ---
Date of Service/Time 04/25/16 Progress Note SUBJECTIVE: The patient tells me that he feels tired he does have some persistent abdominal pain but is not as bad as during hemodialysis yesterday OBJECTIVE: PHYSICAL EXAMINATION: VITAL SIGNS: Please see below. GENERAL: Frail elderly man sitting up in bed he is in no acute distress HEENT: Pupils are equally round and reactive to light he has moist mucous membranes there is mild elevation in the central venous pressure CARDIOVASCULAR: s1 S2 regular. RESPIRATORY: Diminished breath sounds at the bases and scattered rales otherwise good movement air. ABDOMINAL: Bowel sounds present abdomen soft and nontender EXTREMITIES: no edema bilaterally dry gangrene of numerous toes bilaterally distally, significantly improved volume status on exam LABORATORY DATA: leukocytosis Please see below. MICROBIOLOGY: Flu swab from the sixth is negative, blood cultures from the sixth are also negative after 72 hours Please see below. IMAGING: CT of the chest revealed chronic lung findings cholelithiasis, CT angiogram the abdomen is currently pending Lumbar spine CT revealed 3.9 x 3.5 she is former abdominal aortic aneurysm Thoracic spine CT revealed no acute fracture or subluxation DVT prophylaxis ordered?: Heparin every 8 ASSESSMENT AND PLAN: This is a 80-year-old man with possible likely cellulitis in the setting of deconditioning from recent hospitalization. Problem #1 pneumonia versus cellulitis: The patient was admitted with potential diagnosis healthcare associated pneumonia however his cultures were negative at this time CT chest has also been unrevealing as such I feel pneumonia is much less likely. Swallow evaluation was checked this morning and he did pass so that I have less concern for aspiration pneumonia. The patient has completed 7 days of fairly broad-spectrum antibiotics Problem #2 end-stage renal disease on hemodialysis: Dr. Bass his help is greatly appreciated the patient continued on his regular Thursday hemodialysis with fluid removal for volume optimization he did at 2 L removed yesterday Problem #3 Coronary artery disease: The patient is on aspirin Plavix statin and beta sacha Problem #4 insomnia: The patient is on Ambien Problem #5 gout: The patient on uloric Problem #6 diabetes: The patient is on insulin sliding scale as well as Neurontin and Percocet for neuropathic pain Problem #7 gastroesophageal reflux disease patient is on Protonix Problem #8 COPD: Chronic hypoxic respiratory failure the patient on chronic home O2 he is on nebulizer treatments he appears to be at his baseline respiratory status Problem #9 anemia: Secondary to renal disease, [facility] Problem #10 peripheral vascular disease: The patient does have dry gangrene of both lower extremities and reportedly is not a candidate for aggressive surgical intervention as per documentation we'll continue to provide supportive care. The patient has abdominal aortic aneurysm that require follow-up with his outpatient vascular surgeon as well. The patient's deconditioned status and poor ability with mobility I think is related to pain associated with his peripheral vascular disease and dry gangrene he continues to work with physical therapy and will likely require some placement Problem #11 abdominal pain: This did occur during hemodialysis of resolved with returning blood to him due to concern for intestinal angina Dr. Bass did inform me that the patient recently went for angioplasty of his SMA we will recheck CT angiogram of the abdomen today and undergo hemodialysis tomorrow to assess for any obstruction or clot tomorrow DISPOSITION: Ultimately he will likely require placement pending results of CT abdomen VS, I&O, 24H, Fishbone VS, I&O, 24H, Fishbone Vital Signs Date Time Temp Pulse Resp B/P Pulse Ox O2 Delivery O2 Flow Rate FiO2 04/25/16 12:16 20 04/25/16 11:28 126/60 04/25/16 08:15 Nasal Cannula 2.0 04/25/16 06:00 96.9 69 97 I&O- Last 24 Hours up to 6 AM 04/25/16 06:00 Intake Total 460 ml Output Total 2500 ml Balance -2040 ml Laboratory Tests 2 04/24/16 13:39: Bedside Glucose (Misc Panel) 132H 04/24/16 17:19: Bedside Glucose (Misc Panel) 199H 04/24/16 20:49: Bedside Glucose (Misc Panel) 163H 04/25/16 06:28: Anion Gap 7L, Blood Urea Nitrogen 25H, Creatinine 5.71H, Sodium Level 140, Potassium Level 4.9, Chloride Level 100, Carbon Dioxide Level 33H, Calcium Level 9.1, Glomerular Filtration Rate 10.3L Laboratory Tests 04/25/16 06:28 Calcium Level 9.1, Red Blood Count 3.87 L, Mean Corpuscular Volume 104.7 H, Mean Corpuscular Hemoglobin 32.1, Mean Corpuscular Hemoglobin Concent 30.6 L, Red Cell Distribution Width 17.4 H Microbiology 04/18/16 Blood Culture - Final, Complete NO GROWTH AFTER 5 DAYS 04/18/16 Blood Culture - Final, Complete NO GROWTH AFTER 5 DAYS 04/18/16 Influenza Virus Type A Antigen - Final, Complete 04/18/16 Influenza Virus Type B Antigen - Final, Complete SHARRON MONIQUE MD Apr 25, 2016 12:21
[2016-04-25 14:00] VITALS: BP 125/58
[2016-04-25 22:00] VITALS: BP 108/53
[2016-04-26] MEDS: IPRATROPIUM 0.5MG/ALBUTEROL 2.5MG INH SOL UD 3ML (DUONEB)(J7620) NEB SCH ×4 (02:00→19:29)
[2016-04-26] MEDS: ATORVASTATIN 20 MG TAB PO SCH (05:30)
[2016-04-26] MEDS: ASPIRIN 81 MG ENTERIC TAB PO SCH (05:30)
[2016-04-26] MEDS: guaiFENesin ER 600 MG TAB PO SCH ×2 (05:31→20:33)
[2016-04-26] MEDS: CLOPIDOGREL 75 MG TAB PO SCH (05:31)
[2016-04-26] MEDS: FEBUXOSTAT 40 MG TABLET (ULORIC) PO SCH (05:31)
[2016-04-26] MEDS: GABAPENTIN 100 MG CAP PO SCH ×2 (05:31→20:50)
[2016-04-26] MEDS: HEPARIN SOD (PORCINE) 5000 UNITS/ML VIAL SC SCH ×3 (05:32→20:33)
[2016-04-26] MEDS: METOPROLOL TART 50 MG TAB PO SCH ×2 (05:40→20:39)
[2016-04-26] MEDS: PANTOPRAZOLE 40MG TAB (PROTONIX) PO SCH ×2 (05:43→20:34)
[2016-04-26] MEDS: MIRALAX *UNIT DOSE* 17GM PACKET PO PRN (05:43)
[2016-04-26] MEDS: MULTIVITAMINS/MINERALS THERAP 1 TAB PO SCH (05:49)
[2016-04-26 06:00] VITALS: BP 143/65
[2016-04-26 06:21] LABS: MEAN CORPUSCULAR HEMOGLOBIN 33.2 pg (27.0-33.0); MEAN CORPUSCULAR HGB CONC 31.5 g/dl (32.0-36.5); MEAN CORPUSCULAR VOLUME 105.5 fl (80.0-96.0); WHITE BLOOD COUNT 10.2 K/mm3 (4.0-10.0)
[2016-04-26 06:39] LABS: CALCIUM LEVEL 8.7 MG/DL (8.8-10.2); CREATININE FOR GFR 7.46 MG/DL (0.70-1.30); GLOMERULAR FILTRATION RATE 7.5 (>35); POTASSIUM SERUM 4.7 MEQ/L (3.5-5.1)
[2016-04-26] MEDS: PERCOCET 5MG/325MG TAB PO PRN ×2 (06:54→16:30)
[2016-04-26] MEDS: HumaLOG INSULIN (NovoLOG) PER UNIT SC SCH ×4 (07:30→20:24)
[2016-04-26 14:00] VITALS: BP 116/56
--- NOTE | 2016-04-26 14:17 | IPNPDOC ---
Date/Time Seen The patient was seen on 04/26/16 at 14:13. Progress Note SUBJECTIVE: The patient tells me that he feels well today and has no complaints. He tells me that his abdominal pain is better today OBJECTIVE: PHYSICAL EXAMINATION: VITAL SIGNS: Please see below. GENERAL: Frail elderly man sitting up in bed he is examined during hemodialysis he is in no acute distress HEENT: Pupils are equally round and reactive to light he has moist mucous membranes there is mild elevation in the central venous pressure CARDIOVASCULAR: s1 S2 regular. RESPIRATORY: Diminished breath sounds at the bases and scattered rales otherwise good movement air. ABDOMINAL: Bowel sounds present abdomen soft and nontender EXTREMITIES: no edema bilaterally dry gangrene of numerous toes bilaterally distally, significantly improved volume status on exam LABORATORY DATA: leukocytosis downtrending otherwise Please see below. MICROBIOLOGY: Flu swab from the sixth is negative, blood cultures from the sixth are also negative after 72 hours Please see below. IMAGING: CT of the chest revealed chronic lung findings cholelithiasis, CT angiogram the abdomen is currently pending Lumbar spine CT revealed 3.9 x 3.5 she is former abdominal aortic aneurysm Thoracic spine CT revealed no acute fracture or subluxation CT angiogram of the abdomen: I am unable to locate the report at this time however abdomen: Dr. Bass that did reveal quite severe celiac artery stenosis DVT prophylaxis ordered?: Heparin every 8 ASSESSMENT AND PLAN: This is a 80-year-old man with possible likely cellulitis in the setting of deconditioning from recent hospitalization. Problem #1 pneumonia versus cellulitis: The patient was admitted with potential diagnosis healthcare associated pneumonia however his cultures were negative at this time CT chest has also been unrevealing as such I feel pneumonia is much less likely. Swallow evaluation was checked this morning and he did pass so that I have less concern for aspiration pneumonia. The patient has completed 7 days of fairly broad-spectrum antibiotics essentially resolved at this point Problem #2 end-stage renal disease on hemodialysis: Dr. Bass his help is greatly appreciated the patient continued on his regular Thursday hemodialysis with fluid removal for volume optimization Problem #3 Coronary artery disease: The patient is on aspirin Plavix statin and beta sacha Problem #4 insomnia: The patient is on Ambien Problem #5 gout: The patient on uloric Problem #6 diabetes: The patient is on insulin sliding scale as well as Neurontin and Percocet for neuropathic pain Problem #7 gastroesophageal reflux disease patient is on Protonix Problem #8 COPD: Chronic hypoxic respiratory failure the patient on chronic home O2 he is on nebulizer treatments he appears to be at his baseline respiratory status 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 The patient has abdominal aortic aneurysm that require follow-up with his outpatient vascular surgeon as well. The patient's deconditioned status and poor ability with mobility I think is related to pain associated with his peripheral vascular disease and dry gangrene he continues to work with physical therapy and will likely require some placement Problem #11 abdominal pain: I suspect the patient has an element of intestinal angina secondary to vascular disease he is quite vasculopath Dr. Bass spoke with Dr. Heredia will attempt potential stenting to alleviate the patient's symptoms in the coming days DISPOSITION: Ultimately he will likely require placement VS, I&O, 24H, Fishbone VS, I&O, 24H, Fishbone Vital Signs Date Time Temp Pulse Resp B/P Pulse Ox O2 Delivery O2 Flow Rate FiO2 04/26/16 11:38 Nasal Cannula 2.0 04/26/16 07:24 18 04/26/16 06:00 97.0 70 143/65 94 I&O- Last 24 Hours up to 6 AM 04/26/16 06:00 Intake Total 372 ml Output Total 0 ml Balance 372 ml Laboratory Tests 2 04/25/16 17:21: Bedside Glucose (Misc Panel) 185H 04/25/16 20:11: Bedside Glucose (Misc Panel) 167H 04/26/16 06:07: Anion Gap 11, Blood Urea Nitrogen 35H, Creatinine 7.46H, Sodium Level 138, Potassium Level 4.7, Chloride Level 98, Carbon Dioxide Level 29, Calcium Level 8.7L, Glomerular Filtration Rate 7.5L 04/26/16 13:23: Bedside Glucose (Misc Panel) 186H Laboratory Tests 04/26/16 06:07 Calcium Level 8.7 L, Red Blood Count 3.87 L, Mean Corpuscular Volume 105.5 H, Mean Corpuscular Hemoglobin 33.2 H, Mean Corpuscular Hemoglobin Concent 31.5 L, Red Cell Distribution Width 16.0 H Microbiology 04/18/16 Blood Culture - Final, Complete NO GROWTH AFTER 5 DAYS 04/18/16 Blood Culture - Final, Complete NO GROWTH AFTER 5 DAYS 04/18/16 Influenza Virus Type A Antigen - Final, Complete 04/18/16 Influenza Virus Type B Antigen - Final, Complete SHARRON MONIQUE MD Apr 26, 2016 14:16
--- NOTE | 2016-04-26 14:18 | IPN ---
DATE: 04/26/2016 Mr. Rodriguez is seen this morning during hemodialysis. He has recurrent hypotension and abdominal pain. He also has loose stools and has asked for a bed lund twice. The patient does not have any dyspnea or chest pain. He underwent CT angiogram of abdominal aorta and branches yesterday and was found to have significant blockage in his celiac artery. He has been afebrile. PHYSICAL EXAMINATION: Temperature 97 degrees Fahrenheit, heart rate 76 per minute and respiratory rate 18 per minute. Blood pressure at the start was 143/65 mmHg; however, it has been as low as 43/34 mmHg during dialysis. Most recent one is 106/54 mmHg. His head is atraumatic. Ears, nose and throat are unremarkable. Neck veins are not abnormally distended. His neck is supple and without any thyroid enlargement. Trachea is midline. Heart sounds are regular and lungs clear to auscultation. Abdomen is soft and bowel sounds are hypoactive. There is no palpable organomegaly. Extremities have no cyanosis or clubbing. His left arm AV fistula is functioning. Neurologically, he is awake and alert and at his baseline mentation. Today's labs show WBC count 10.2, hemoglobin 12.9 and hematocrit 40.8. Sodium 138 and potassium 4.7. BUN 35 and creatinine 7.46. Calcium level is 8.7. PROBLEMS: 1. End-stage renal disease. The patient is currently being dialyzed. We will plan to dialyze him for 3-1/2 hours which is his usual time. His volume status is reasonable and electrolytes are within normal range. We will try to remove only as much fluid as he could tolerate. We had to back off on the goal due to recurrent hypotension. 2. Recurrent hypotension and abdominal pain. Most likely this is related to mesenteric ischemia. Patient is going to have an attempted angioplasty next week. I discussed with interventional radiology yesterday and consult has been requested. 3. Cough and difficulty breathing. His volume status is well compensated and cough has improved. Most recent chest x-ray done on 04/24/2016 was consistent with bibasilar atelectasis and cardiomegaly. 4. Disposition: At present, the patient is not stable and remains quite weak. He is not ready for discharge to home. He is likely to require subacute rehabilitation or possibly long-term intermediate placement.
[2016-04-26 22:00] VITALS: BP 102/55
[2016-04-27] MEDS: IPRATROPIUM 0.5MG/ALBUTEROL 2.5MG INH SOL UD 3ML (DUONEB)(J7620) NEB SCH ×4 (02:00→19:54)
[2016-04-27] MEDS: HEPARIN SOD (PORCINE) 5000 UNITS/ML VIAL SC SCH ×3 (05:56→21:58)
[2016-04-27 06:00] VITALS: BP 133/60
[2016-04-27 06:27] LABS: MEAN CORPUSCULAR HEMOGLOBIN 33.5 pg (27.0-33.0); MEAN CORPUSCULAR VOLUME 104.8 fl (80.0-96.0); RED CELL DISTRIBUTION WIDTH 16.1 % (11.5-14.5); WHITE BLOOD COUNT 7.8 K/mm3 (4.0-10.0)
[2016-04-27 06:38] LABS: CALCIUM LEVEL 8.4 MG/DL (8.8-10.2); CREATININE FOR GFR 6.55 MG/DL (0.70-1.30); GLOMERULAR FILTRATION RATE 8.7 (>35); POTASSIUM SERUM 4.7 MEQ/L (3.5-5.1)
[2016-04-27] MEDS: PERCOCET 5MG/325MG TAB PO PRN ×3 (08:23→22:18)
[2016-04-27] MEDS: MULTIVITAMINS/MINERALS THERAP 1 TAB PO SCH (09:02)
[2016-04-27] MEDS: ATORVASTATIN 20 MG TAB PO SCH (09:02)
[2016-04-27] MEDS: METOPROLOL TART 50 MG TAB PO SCH ×2 (09:02→21:59)
[2016-04-27] MEDS: PANTOPRAZOLE 40MG TAB (PROTONIX) PO SCH ×2 (09:02→21:58)
[2016-04-27] MEDS: guaiFENesin ER 600 MG TAB PO SCH ×2 (09:02→21:58)
[2016-04-27] MEDS: HumaLOG INSULIN (NovoLOG) PER UNIT SC SCH ×4 (09:02→21:00)
[2016-04-27] MEDS: CLOPIDOGREL 75 MG TAB PO SCH (09:02)
[2016-04-27] MEDS: ASPIRIN 81 MG ENTERIC TAB PO SCH (09:03)
[2016-04-27] MEDS: GABAPENTIN 100 MG CAP PO SCH ×2 (09:03→21:58)
[2016-04-27] MEDS: FEBUXOSTAT 40 MG TABLET (ULORIC) PO SCH (09:03)
--- NOTE | 2016-04-27 10:08 | IPNPDOC ---
Date/Time Seen The patient was seen on 04/27/16 at 10:00. Progress Note SUBJECTIVE: The patient tells me that he feels well today and has no complaints. He tells me his constipation is resolved OBJECTIVE: PHYSICAL EXAMINATION: VITAL SIGNS: Please see below. GENERAL: Frail elderly man sitting up in bed he is in no acute distress HEENT: Pupils are equally round and reactive to light he has moist mucous membranes there is mild elevation in the central venous pressure CARDIOVASCULAR: s1 S2 regular. RESPIRATORY: Diminished breath sounds at the bases and scattered rales otherwise good movement air. ABDOMINAL: Bowel sounds present abdomen soft and nontender EXTREMITIES: no edema bilaterally dry gangrene of numerous toes bilaterally distally, significantly improved volume status on exam LABORATORY DATA: Please see below. MICROBIOLOGY: Flu swab from the sixth is negative, blood cultures from the sixth are also negative after 72 hours Please see below. IMAGING: CT of the chest revealed chronic lung findings cholelithiasis, CT angiogram the abdomen is currently pending Lumbar spine CT revealed 3.9 x 3.5 she is former abdominal aortic aneurysm Thoracic spine CT revealed no acute fracture or subluxation CT angiogram of the abdomen: I am unable to locate the report at this time however abdomen: Dr. Bass that did reveal quite severe celiac artery stenosis DVT prophylaxis ordered?: Heparin every 8 ASSESSMENT AND PLAN: This is a 80-year-old man with possible likely cellulitis in the setting of deconditioning from recent hospitalization. Problem #1 pneumonia versus cellulitis: Patient completed 7 days of broad- spectrum antibiotics resolved Problem #2 end-stage renal disease on hemodialysis: Dr. Bass his help is greatly appreciated the patient continued on his regular Thursday hemodialysis with fluid removal for volume optimization Problem #3 Coronary artery disease: The patient is on aspirin Plavix statin and beta sacha Problem #4 insomnia: The patient is on Ambien at home but he is not requiring it here and as such it is been discontinued Problem #5 gout: The patient on uloric Problem #6 diabetes: The patient is on insulin sliding scale as well as Neurontin and Percocet for neuropathic pain Problem #7 gastroesophageal reflux disease patient is on Protonix Problem #8 COPD: Chronic hypoxic respiratory failure the patient on chronic home O2 he is on nebulizer treatments he appears to be at his baseline respiratory status 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 The patient has abdominal aortic aneurysm that require follow-up with his outpatient vascular surgeon as well. 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 Bass spoke with Dr. Heredia who will attempt potential stenting to alleviate the patient's symptoms in the coming days DISPOSITION: Ultimately he will likely require placement VS, I&O, 24H, Fishbone VS, I&O, 24H, Fishbone Vital Signs Date Time Temp Pulse Resp B/P Pulse Ox O2 Delivery O2 Flow Rate FiO2 04/27/16 09:02 70 133/60 04/27/16 08:53 20 04/27/16 06:00 97.1 95 Nasal Cannula 2.0 I&O- Last 24 Hours up to 6 AM 04/27/16 06:00 Intake Total 1680 ml Output Total 145 ml Balance 1535 ml Laboratory Tests 2 04/26/16 13:23: Bedside Glucose (Misc Panel) 186H 04/26/16 16:56: Bedside Glucose (Misc Panel) 274H 04/26/16 19:52: Bedside Glucose (Misc Panel) 166H 04/27/16 05:57: Anion Gap 11, Blood Urea Nitrogen 24H, Creatinine 6.55H, Sodium Level 139, Potassium Level 4.7, Chloride Level 99, Carbon Dioxide Level 29, Calcium Level 8.4L, Glomerular Filtration Rate 8.7L Laboratory Tests 04/27/16 05:57 Calcium Level 8.4 L, Red Blood Count 3.54 L, Mean Corpuscular Volume 104.8 H, Mean Corpuscular Hemoglobin 33.5 H, Mean Corpuscular Hemoglobin Concent 32.0, Red Cell Distribution Width 16.1 H Microbiology 04/18/16 Blood Culture - Final, Complete NO GROWTH AFTER 5 DAYS 04/18/16 Blood Culture - Final, Complete NO GROWTH AFTER 5 DAYS 04/18/16 Influenza Virus Type A Antigen - Final, Complete 1/6/17 Influenza Virus Type B Antigen - Final, Complete SHARRON MONIQUE MD Apr 27, 2016 10:08
--- NOTE | 2016-04-27 12:30 | IPN ---
DATE: 04/27/2016 Mr. Rodriguez is seen this morning on his bedside. He had multiple loose stools during dialysis yesterday and also had abdominal pain due to recurrent hypotension due to which his dialysis was terminated prematurely. Today, he is feeling better and denies any abdominal pain or diarrhea. His dyspnea is chronic and unchanged. There is no chest pain. The patient denies any nausea or vomiting. PHYSICAL EXAMINATION: VITAL SIGNS: On physical examination, temperature 97.1 degrees Fahrenheit, heart rate 70 per minute and respiratory rate 20 per minute. Blood pressure 133/60 mmHg and oxygen saturation 95% on two liters oxygen. HEENT: Head is atraumatic. Ears, nose and throat are unremarkable. Pupils are equal and reactive to light and sclera is anicteric. NECK: Supple and without any jugular venous distention (JVD) or thyroid enlargement. Trachea is midline. HEART: Sounds are regular. LUNGS: Sound clear to auscultation. ABDOMEN: Soft and nontender without any palpable organomegaly. Bowel sounds are normal. EXTREMITIES: No cyanosis or clubbing. SKIN: No rash or ulcers. NEUROLOGICALLY: He is awake, alert and oriented times three. He has no focal neurological deficit. LABORATORY DATA: Today's laboratories show WBC count 7.8, hemoglobin 11.9 and hematocrit 37.2. Platelets 161. Sodium 139 and potassium 4.7. BUN 24 and creatinine 6.55. Glucose 205 and calcium 8.4. PROBLEMS: 1. End-stage renal disease. The patient had partial hemodialysis yesterday. At present, his volume status is well-compensated and electrolytes are normal. We will schedule his next hemodialysis for 04/29/2016, at his regular scheduled day. 2. Recurrent abdominal pain and hypotension. The patient is known to have mesenteric ischemia. 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 The patient is likely to have angioplasty by interventional radiology next week. 3. Congestive heart failure and chronic obstructive pulmonary disease (COPD). The patient is stable at about baseline. He is likely to require long-term oxygen supplementation. At present, his volume status is well-compensated with hemodialysis. The patient will continue with bronchodilator therapy as usual. 4. Anemia. His anemia is stable and he does not need any transfusion. He will continue with Aranesp and we will adjust the dose as needed. At present, his hemoglobin is about 12 and we will hold his Aranesp until his hemoglobin is below 11.0. 5. Coronary artery disease. The patient is currently asymptomatic since his angioplasty. 6. Generalized weakness and difficulty with ambulation. The patient is quite weak and has problems with balance. He is receiving physical therapy and is likely to require at least short-term rehabilitation.
[2016-04-27 14:00] VITALS: BP 117/56
[2016-04-27] MEDS: MIRALAX *UNIT DOSE* 17GM PACKET PO PRN (14:59)
[2016-04-27 22:00] VITALS: BP 127/62
[2016-04-28] MEDS: IPRATROPIUM 0.5MG/ALBUTEROL 2.5MG INH SOL UD 3ML (DUONEB)(J7620) NEB SCH ×4 (01:20→19:34)
[2016-04-28 06:00] VITALS: BP 138/61
[2016-04-28 06:36] LABS: MEAN CORPUSCULAR HGB CONC 31.3 g/dl (32.0-36.5); MEAN CORPUSCULAR VOLUME 105.2 fl (80.0-96.0); RED CELL DISTRIBUTION WIDTH 15.9 % (11.5-14.5)
[2016-04-28] MEDS: HEPARIN SOD (PORCINE) 5000 UNITS/ML VIAL SC SCH ×3 (06:40→21:11)
[2016-04-28] MEDS: PERCOCET 5MG/325MG TAB PO PRN ×2 (06:45→19:21)
[2016-04-28 06:50] LABS: CALCIUM LEVEL 8.1 MG/DL (8.8-10.2); CREATININE FOR GFR 8.2 MG/DL (0.70-1.30); GLOMERULAR FILTRATION RATE 6.8 (>35); POTASSIUM SERUM 4.3 MEQ/L (3.5-5.1)
[2016-04-28] MEDS: ATORVASTATIN 20 MG TAB PO SCH (08:50)
[2016-04-28] MEDS: GABAPENTIN 100 MG CAP PO SCH ×2 (08:50→21:11)
[2016-04-28] MEDS: HumaLOG INSULIN (NovoLOG) PER UNIT SC SCH ×4 (08:50→21:00)
[2016-04-28] MEDS: MULTIVITAMINS/MINERALS THERAP 1 TAB PO SCH (08:50)
[2016-04-28] MEDS: ASPIRIN 81 MG ENTERIC TAB PO SCH (08:50)
[2016-04-28] MEDS: PANTOPRAZOLE 40MG TAB (PROTONIX) PO SCH ×2 (08:51→21:11)
[2016-04-28] MEDS: guaiFENesin ER 600 MG TAB PO SCH ×2 (08:51→21:11)
[2016-04-28] MEDS: CLOPIDOGREL 75 MG TAB PO SCH (08:52)
[2016-04-28] MEDS: METOPROLOL TART 50 MG TAB PO SCH ×2 (08:52→21:11)
[2016-04-28] MEDS: FEBUXOSTAT 40 MG TABLET (ULORIC) PO SCH (10:24)
[2016-04-28 14:00] VITALS: BP 145/65
--- NOTE | 2016-04-28 16:02 | IPNPDOC ---
Date/Time Seen The patient was seen on 04/28/16 at 16:00. Progress Note SUBJECTIVE: The patient tells me that he feels well today and has no complaints. OBJECTIVE: PHYSICAL EXAMINATION: VITAL SIGNS: Please see below. GENERAL: Frail elderly man sitting up in bed he is in no acute distress HEENT: Pupils are equally round and reactive to light he has moist mucous membranes there is mild elevation in the central venous pressure CARDIOVASCULAR: s1 S2 regular. RESPIRATORY: Diminished breath sounds at the bases and scattered rales otherwise good movement air. ABDOMINAL: Bowel sounds present abdomen soft and nontender EXTREMITIES: no edema bilaterally dry gangrene of numerous toes bilaterally distally, significantly improved volume status on exam LABORATORY DATA: Please see below. MICROBIOLOGY: Flu swab from the sixth is negative, blood cultures from the sixth are also negative after 72 hours Please see below. IMAGING: CT of the chest revealed chronic lung findings cholelithiasis, CT angiogram the abdomen reportedly showed severe stenosis of the celiac artery Lumbar spine CT revealed 3.9 x 3.5 she is former abdominal aortic aneurysm Thoracic spine CT revealed no acute fracture or subluxation DVT prophylaxis ordered?: Heparin every 8 ASSESSMENT AND PLAN: This is a 80-year-old man with possible likely cellulitis in the setting of deconditioning from recent hospitalization. Problem #1 pneumonia versus cellulitis: Patient completed 7 days of broad- spectrum antibiotics resolved Problem #2 end-stage renal disease on hemodialysis: Dr. Bass his help is greatly appreciated the patient continued on his regular Thursday hemodialysis with fluid removal for volume optimization Problem #3 Coronary artery disease: The patient is on aspirin Plavix statin and beta sacha Problem #4 insomnia: The patient is on Ambien at home but he is not requiring it here and as such it is been discontinued Problem #5 gout: The patient on uloric Problem #6 diabetes: The patient is on insulin sliding scale as well as Neurontin and Percocet for neuropathic pain Problem #7 gastroesophageal reflux disease patient is on Protonix Problem #8 COPD: Chronic hypoxic respiratory failure the patient on chronic home O2 he is on nebulizer treatments he appears to be at his baseline respiratory status 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 The patient has abdominal aortic aneurysm that require follow-up with his outpatient vascular surgeon as well. 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 Bass spoke with Dr. Heredia who will attempt potential stenting to alleviate the patient's symptoms in the coming days DISPOSITION: Ultimately he will likely require placement VS, I&O, 24H, Fishbone VS, I&O, 24H, Fishbone Vital Signs Date Time Temp Pulse Resp B/P Pulse Ox O2 Delivery O2 Flow Rate FiO2 04/28/16 14:00 96.8 69 20 145/65 97 Nasal Cannula 2.0 I&O- Last 24 Hours up to 6 AM 04/28/16 06:00 Intake Total 1320 ml Output Total 3 ml Balance 1317 ml Laboratory Tests 2 04/27/16 16:49: Bedside Glucose (Misc Panel) 162H 04/27/16 19:57: Bedside Glucose (Misc Panel) 160H 04/28/16 06:22: Anion Gap 13, Blood Urea Nitrogen 32H, Creatinine 8.20H, Sodium Level 139, Potassium Level 4.3, Chloride Level 98, Carbon Dioxide Level 28, Calcium Level 8.1L, Glomerular Filtration Rate 6.8L, Lactic Acid Level 1.4 04/28/16 08:07: Bedside Glucose (Misc Panel) 197H 04/28/16 11:42: Bedside Glucose (Misc Panel) 175H Laboratory Tests 04/28/16 06:22 Calcium Level 8.1 L, Red Blood Count 3.58 L, Mean Corpuscular Volume 105.2 H, Mean Corpuscular Hemoglobin 33.0, Mean Corpuscular Hemoglobin Concent 31.3 L, Red Cell Distribution Width 15.9 H Microbiology 04/18/16 Blood Culture - Final, Complete NO GROWTH AFTER 5 DAYS 04/18/16 Blood Culture - Final, Complete NO GROWTH AFTER 5 DAYS 04/18/16 Influenza Virus Type A Antigen - Final, Complete 04/18/16 Influenza Virus Type B Antigen - Final, Complete SHARRON MONIQUE MD Apr 28, 2016 16:02
[2016-04-28 19:35] VITALS: O2SAT 95
--- NOTE | 2016-04-28 21:26 | IPN ---
DATE: 04/28/2016 SUBJECTIVE: Patient was seen and examined at the bedside today in the morning. He was sitting on the sofa. Patient does not have any active complaints today. Last time when patient was being dialyzed he had severe pain in the abdomen, so his dialysis had to be cut short. Patient is still complaining of pain in the abdomen at this time. REVIEW OF SYSTEMS: Patient denies any fevers, chills, rigors, headache, nausea, vomiting, chest pain, shortness of breath. He does report pain in the abdomen, but he denies any nausea, vomiting, constipation, or diarrhea, and he does report persistent lower extremity dry gangrene of the bilateral toes. Rest of the review of systems is negative. OBJECTIVE: Vital signs: Temperature is 96.8 degrees Fahrenheit, blood pressure is 144/65, pulse is 69, respiratory rate of 18, saturating 97% on nasal cannula at 2 liters. Intake and output: There is no urine output recorded. Last hemodialysis was on 04/26/2016. Weight in the bed scale is 91.2 kg. PHYSICAL EXAMINATION: GENERAL: Patient is awake, alert, oriented times three, sitting in the sofa. No apparent distress. HEAD AND NECK: Extraocular muscles intact. Pupils equally round and reactive to light. Neck is supple. There is no jugular venous distention (JVD). CARDIOVASCULAR: S1, S2, regular rate. No murmur, rub, or gallop. RESPIRATORY: Chest is clear to auscultation bilaterally. Bilateral equal air entry. No rales or rhonchi. ABDOMEN: Soft. Positive bowel sounds. Nontender. No ascites. No organomegaly. EXTREMITIES: Patient has dry gangrene of multiple toes in the bilateral lower extremities. SKIN: Dry and warm. CENTRAL NERVOUS SYSTEM; No focal neurological deficit. Power is 5/5 in all extremities. LABORATORY REVIEW: CBC showed a WBC of 10, hemoglobin 11.8, platelets of 156. BMP showed sodium 139, potassium 4.3, chloride 98, bicarbonate 28, BUN 32, creatinine 8.2, calcium 8.1 . IMAGING: CT angiogram of the abdomen was done on 04/25/2016. Official report is still pending. CURRENT MEDICATIONS: Patient's current medications were all reviewed by me. There is no change in the medications at this time as compared with yesterday. ASSESSMENT: An 80-year-old male with past medical history of end-stage renal disease, on hemodialysis, admitted this time with weakness, inability to walk. Nephrology service following the patient for management of end-stage renal disease. PROBLEMS: 1. End-stage renal disease. Patient gets hemodialysis every Thursday, , Thursday. Next hemodialysis session will be tomorrow. No urgent need for hemodialysis today. 2. Recurrent abdominal pain and hypotension. Patient has history of mesenteric ischemia. He has critical stenosis of the celiac artery. Patient needs angioplasty done by interventional radiology. 3. Anemia and end-stage renal disease. Patient's hemoglobin is acceptable at this time. His Aranesp is on hold. If patient's hemoglobin drops below 11, then Aranesp will be restarted. 4. Congestive heart failure. Patient's volume status is compensated at this time. Next hemodialysis session is tomorrow. We shall try to do further ultrafiltration with hemodialysis tomorrow as tolerated by his blood pressure. 5. Generalized weakness and inability to walk. Patient did not get physical therapy over the weekend. Continue the physical therapy. Patient would likely need rehabilitation placement.
[2016-04-28 22:00] VITALS: BP 144/66
[2016-04-29] MEDS: IPRATROPIUM 0.5MG/ALBUTEROL 2.5MG INH SOL UD 3ML (DUONEB)(J7620) NEB SCH ×4 (01:14→19:25)
[2016-04-29 06:00] VITALS: BP 140/65
[2016-04-29] MEDS: FEBUXOSTAT 40 MG TABLET (ULORIC) PO SCH (06:12)
[2016-04-29] MEDS: guaiFENesin ER 600 MG TAB PO SCH ×2 (06:13→21:21)
[2016-04-29] MEDS: HEPARIN SOD (PORCINE) 5000 UNITS/ML VIAL SC SCH ×3 (06:13→21:21)
[2016-04-29] MEDS: GABAPENTIN 100 MG CAP PO SCH ×2 (06:13→21:21)
[2016-04-29] MEDS: MULTIVITAMINS/MINERALS THERAP 1 TAB PO SCH (06:13)
[2016-04-29] MEDS: PANTOPRAZOLE 40MG TAB (PROTONIX) PO SCH ×2 (06:13→21:21)
[2016-04-29] MEDS: ATORVASTATIN 20 MG TAB PO SCH (06:13)
[2016-04-29] MEDS: ASPIRIN 81 MG ENTERIC TAB PO SCH (06:13)
[2016-04-29] MEDS: CLOPIDOGREL 75 MG TAB PO SCH (06:13)
[2016-04-29 06:56] LABS: MEAN CORPUSCULAR HEMOGLOBIN 32.5 pg (27.0-33.0); MEAN CORPUSCULAR HGB CONC 30.5 g/dl (32.0-36.5); MEAN CORPUSCULAR VOLUME 106.7 fl (80.0-96.0); RED CELL DISTRIBUTION WIDTH 16.4 % (11.5-14.5); WHITE BLOOD COUNT 13.2 K/mm3 (4.0-10.0)
[2016-04-29 07:11] LABS: CALCIUM LEVEL 8.5 MG/DL (8.8-10.2); CREATININE FOR GFR 9.66 MG/DL (0.70-1.30); GLOMERULAR FILTRATION RATE 5.6 (>35); POTASSIUM SERUM 4.9 MEQ/L (3.5-5.1)
[2016-04-29] MEDS: HumaLOG INSULIN (NovoLOG) PER UNIT SC SCH ×4 (08:14→21:00)
[2016-04-29] MEDS: PERCOCET 5MG/325MG TAB PO PRN ×3 (08:14→21:22)
[2016-04-29] MEDS: METOPROLOL TART 50 MG TAB PO SCH ×2 (08:15→21:22)
--- NOTE | 2016-04-29 09:23 | REP ---
REPEAT DICTATION: CT ANGIOGRAPHY OF THE ABDOMEN WITH IV CONTRAST: HISTORY: Evaluate SMA and vessels for obstruction. Abdominal pain. CT contrast dose: 100 mL of Isovue 370 is administered intravenously by auto injector. Patient on dialysis. CT TECHNIQUE: Helical scanning is acquired and axial 3 mm images are reformatted. In addition, 3D work station is deployed to generate maximum intensity projection images and curved oblique MPR vascular images. Surface rendered 3D color images are generated reviewed rotationally. Coronal and sagittal multiplanar reformation images are generated. NONVASCULAR CT FINDINGS: Preliminary digital quality process auditor radiograph demonstrates an unremarkable bowel gas pattern. There is extensive vascular calcification. Some interstitial fibrosis is seen in the lung bases bilaterally. Opaque gallstones are visible in the gallbladder. Diffuse cortical atrophy is seen in both kidneys. There is a right renal cyst measuring 3.1 cm. Several areas of soft tissue edema are seen in the subcutaneous fat of the anterior abdominal wall consistent with results of subcutaneous injections. There are degenerative changes in the lumbar spine. VASCULAR FINDINGS: There is diffuse ectasia and irregular atherosclerotic vascular calcification and plaquing in the suprarenal abdominal aorta. The abdominal aorta measures 2.8 cm in AP dimension at the diaphragmatic hiatus. There is a previously placed and patent stent at the origin of the superior mesenteric artery. Mild calcific plaquing is seen in the mid superior mesenteric artery. There is considerable plaquing and stenosis at the origin of the celiac axis, 80 to 85% with post stenotic dilation. Vascular calcification is seen in the branches of the celiac axis. There is high-grade origin stenoses of both renal arteries, 85 to 90% bilaterally. Renal arteries do appear patent with some vascular calcification extending into each renal sinus. There is an infrarenal abdominal aortic aneurysm of the distal aorta measuring 4.1 cm in AP dimension x 3.7 cm right to left. There is no significant mural thrombus associated with this aneurysm. Indeed, the inferior mesenteric artery takeoff is from the aneurysmal segment and is preserved. The PAUL is patent. The common iliac arteries are ectatic bilaterally and symmetrically measuring 1.4 cm on the right and 1.5 cm in AP dimension on the left. Vascular calcification is seen. There is heavy vascular calcification at the bifurcation of the common iliac arteries right more so than left. There is a high-grade 89% stenosis at the origin of the external iliac artery on the right. The proximal internal iliac arteries appear patent bilaterally. This is at the bottom of the imaging field of view. IMPRESSION: 1. Infrarenal abdominal aortic aneurysm. 2. High-grade stenoses at the origin of the celiac axis and at the origin of both the right and the left main renal arteries. High-grade origin stenosis also seen in the right external iliac artery. 3. There appears to be a patent stent in the proximal superior mesenteric artery. The inferior mesenteric artery origin is patent with its takeoff from the infrarenal abdominal aortic aneurysm. 4. Gallstones, right renal cyst, and diffuse renal cortical atrophy are seen. Signed by Brad Posada MD 04/29/2016 09:28 A
--- NOTE | 2016-04-29 10:16 | IPN ---
DATE: 04/29/2016 This is an 80-year-old gentleman seen at bedside. No overnight issues reported. Denies any chest pain, shortness breath, productive sputum, cough or hemoptysis. He does continue to have some leg pain when he tries to ambulate. OBJECTIVE: Temperature is 96.3, pulse 72, respiratory rate is 14, blood pressure (BP) is 140/65, and SPO2 is 95% on 2 liters. General: The patient appears to be in no acute distress. He is alert and oriented, pleasant talk to. HEENT: Unremarkable. Lungs: Clear to auscultation. Heart: Regular rate and rhythm. Abdomen is obese, protuberant, soft, nontender, nondistended. Bowel sounds are normoactive. Extremities: No edema. No calf tenderness. However, he does have some areas of petechiae and some discoloration of the toes distally. LABORATORY DATA: White count is 13.2, hemoglobin is 11.9 and platelets are 169,000. Sodium is 139, potassium 4.9, chloride 99, bicarb 27, anion gap 13, BUN 44, creatinine is 9.66, glucose 157, lactic acid 1.4, and calcium is 8.5. Blood cultures were negative for 5 days times two. Influenza A and B were negative. ASSESSMENT/PLAN: 1. Pneumonia versus cellulitis. He did complete 7 days of broad-spectrum antibiotics. No signs of infection. No fevers or chills at this time. Will continue to follow. 2. End-stage renal disease requiring hemodialysis. Appreciate nephrology's input. 3. Coronary artery disease. Continue aspirin, Plavix, statin and beta sacha. 4. Peripheral vascular disease with dry gangrene involving the lower extremities. Reportedly not a candidate for aggressive surgical intervention per documentation. Will continue to provide supportive care. He does have history of abdominal aortic aneurysm and will need to followup outpatient with his vascular surgeon. The CT angio of the abdomen did demonstrate some stenosis of celiac artery. Dr. Heerdia has been gracious enough to see the patient for interventional radiology. 5. Chronic anemia secondary to renal disease. He receives periodic Aranesp. 6. Gastroesophageal reflux disease (GERD). Stable on Protonix. 7. Diabetes. Continue with fingersticks and sliding scale insulin. Continue p.r.n. Percocet and scheduled Neurontin for neuropathic pain. 8. Gout. Continue Uloric. 9. Insomnia. Continue on Ambien. DISPOSITION: I did have a discussion during PCT rounds this morning. The patient most likely will need to be placed rather than able to return home.
[2016-04-29] MEDS ORDERED: LIDOCAINE 1% SDV 5 ML VIAL SQ ONE (12:00)
[2016-04-29] MEDS ORDERED: HEPARIN 1,000 UNITS/ML 10ML VIAL (FOR RADIOLOGY& DIALYSIS ONLY) IV ONE (12:00)
[2016-04-29 14:00] VITALS: BP 112/53
--- NOTE | 2016-04-29 14:55 | IPNPDOC ---
Date/Time Seen The patient was seen on 04/29/16 at 14:41. Progress Note DATE OF ENCOUNTER: 04/29/2016 SUBJECTIVE: Patient was seen this morning in the dialysis unit while he was receiving hemodialysis. No acute overnight issues. Patient reports that he feels shaky. He states that the shaking is not new, however it appears to be slightly worse this morning. No fevers or chills. He denies any abdominal pain and tolerating dialysis thus far. He does have history of abdominal pain when he becomes hypotensive. Review of systems is negative for nausea, vomiting, abdominal pain, diarrhea, fever, chills, chest pain, chest pressure, shortness of breath, headache, lightheadedness, dizziness, bleeding. He denies any abdominal pain with eating. White count appears elevated. Afebrile. OBJECTIVE: Vital Signs Date Time Temp Pulse Resp B/P Pulse Ox O2 Delivery O2 Flow Rate FiO2 04/29/16 14:04 16 Nasal Cannula 04/29/16 08:16 2.0 04/29/16 08:15 72 140/65 04/29/16 06:00 96.3 94 I&O- Last 24 Hours up to 6 AM 04/29/16 06:00 Intake Total 1260 ml Output Total 0 ml Balance 1260 ml GENERAL: Patient is alert and oriented, resting comfortably in bed, no acute distress. HEENT: Normocephalic, atraumatic. Extraocular muscles are intact. Moist mucosa. NECK: Supple. Jugular venous pulsations are not elevated. HEART: Regular rate and rhythm. No murmur appreciated. LUNGS: Clear to auscultation bilaterally. No rales, rhonchi or wheezing. ABDOMEN: Soft, nontender, nondistended. Bowel sounds are present. No rebound, guarding or rigidity. BACK: He has ecchymoses on the left side secondary to fall. EXTREMITIES: No cyanosis or lower extremity edema. He does have left lower extremity with vascular changes as well as dry gangrene of his toes. SKIN: Warm and dry. Good skin turgor. NEUROLOGIC: No focal deficits. LABORATORY DATA: 04/29/16 06:43 Calcium Level 8.5 L, Red Blood Count 3.67 L, Mean Corpuscular Volume 106.7 H, Mean Corpuscular Hemoglobin 32.5, Mean Corpuscular Hemoglobin Concent 30.5 L, Red Cell Distribution Width 16.4 H , Anion Gap 13, Calcium Level 8.5L, Glomerular Filtration Rate 5.6L ASSESSMENT/PLAN Mr. Rodriguez is an 80-year-old male with past medical history significant for end- stage renal disease on hemodialysis every Thursday, , Thursday, coronary artery disease, hypertension, diabetes, gangrene of bilateral lower extremity toes after recent cardiac catheterization, COPD who was recently discharged from the hospital and now has been readmitted after a fall with weakness and inability to ambulate. 1. End-stage renal disease on hemodialysis. Patient receives dialysis on Tuesdays, and Saturdays. He is being dialyzed today. Electrolytes are stable. 2. Recurrent abdominal pain. 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 He will taken to interventional radiology for angioplasty tomorrow. 3. History of chronic systolic congestive heart failure. Volume status is stable at this time. Continue to correct volume status with hemodialysis. 4. Leukocytosis. He has previously completed a week of antibiotics for possible pneumonia versus cellulitis. White count needs to be monitored. He is afebrile at this time. Defer to primary team for management. 5. Hypertension. Blood pressure stable on metoprolol 50 mg twice daily. 6. Anemia in end-stage renal disease. Hemoglobin is currently stable. He receives Aranesp as needed during hemodialysis. 7. Chronic gout. The patient continues to be on Uloric daily. 8. Generalized weakness and recent fall. The patient has gangrene of his toes and peripheral vascular disease, which affects his ambulation. Patient will benefit from short-term rehabilitation. Continue aspirin, Plavix, beta sacha and statin therapy for peripheral vascular disease. GME ATTESTATION GME ATTESTATION My preceptor for this patient encounter was physically present in the building during the encounter and was fully available. As needed, all aspects of the patient interview, examination, medical decision making process, and medical care plan development were reviewed and approved by the preceptor. Preceptor is aware and concurs with the plan as stated in the body of this note and will attest to such by his/her cosignature. ATTENDING NOTE Pt was seen and examined during Hemodialysis this AM. He tolerated the procedure well. Rest of assessment and recommendations as per resident's note. ADIN OATES DO Apr 29, 2016 14:55 NICOLA CHAPMAN MD Apr 29, 2016 21:21
[2016-04-29 22:00] VITALS: BP 143/60
[2016-04-30] MEDS: IPRATROPIUM 0.5MG/ALBUTEROL 2.5MG INH SOL UD 3ML (DUONEB)(J7620) NEB SCH ×5 (01:13→23:01)
[2016-04-30 06:00] VITALS: BP 174/80
[2016-04-30 06:54] LABS: MEAN CORPUSCULAR HEMOGLOBIN 32.3 pg (27.0-33.0); MEAN CORPUSCULAR HGB CONC 29.5 g/dl (32.0-36.5); MEAN CORPUSCULAR VOLUME 109.6 fl (80.0-96.0); RED CELL DISTRIBUTION WIDTH 18.1 % (11.5-14.5)
[2016-04-30 07:00] LABS: CALCIUM LEVEL 8.6 MG/DL (8.8-10.2); CREATININE FOR GFR 6.23 MG/DL (0.70-1.30); GLOMERULAR FILTRATION RATE 9.3 (>35); POTASSIUM SERUM 4.2 MEQ/L (3.5-5.1)
[2016-04-30] MEDS ORDERED: CEPACOL LOZENGE PO PRN (07:15)
[2016-04-30] MEDS: HumaLOG INSULIN (NovoLOG) PER UNIT SC SCH ×4 (07:30→21:00)
[2016-04-30] MEDS: guaiFENesin ER 600 MG TAB PO SCH ×2 (08:06→21:07)
[2016-04-30] MEDS: FEBUXOSTAT 40 MG TABLET (ULORIC) PO SCH (08:06)
[2016-04-30] MEDS: ATORVASTATIN 20 MG TAB PO SCH (08:06)
[2016-04-30] MEDS: PANTOPRAZOLE 40MG TAB (PROTONIX) PO SCH ×2 (08:06→21:07)
[2016-04-30] MEDS: METOPROLOL TART 50 MG TAB PO SCH ×2 (08:07→21:08)
[2016-04-30] MEDS: PERCOCET 5MG/325MG TAB PO PRN ×2 (08:07→19:41)
[2016-04-30] MEDS: MULTIVITAMINS/MINERALS THERAP 1 TAB PO SCH (08:07)
[2016-04-30] MEDS: GABAPENTIN 100 MG CAP PO SCH ×2 (08:07→21:07)
--- NOTE | 2016-04-30 08:20 | IPN ---
DATE: 04/30/2016 80-year-old gentleman seen at bedside. No overnight issues reported. He is resting comfortably. Denies chest pain, shortness breath, productive sputum, cough or hemoptysis. He is anticipating going to the interventional radiology suite today for angioplasty with Dr. Heredia later today. OBJECTIVE: Temperature is 97.3, pulse 72, respiratory rate 16, blood pressure 174/80, SpO2 is 94% on 3 liters. GENERAL: The patient appears to be in no acute distress. He is alert and oriented, pleasant talk to. HEENT: Unremarkable. LUNGS: Clear. HEART: Regular rhythm. ABDOMEN: Soft. EXTREMITIES: No edema. No calf tenderness. LABORATORY DATA: White count is 10.0, hemoglobin is 12.4, platelets 183,000. Sodium 138, potassium 4.2, chloride 96, bicarb 33, anion gap 9, BUN is 23, creatinine is 6.23, glucose is 143. ASSESSMENT/PLAN: 1. Pneumonia versus cellulitis. Continue monitoring him. He did complete seven days of broad-spectrum antibiotics. He seems to be doing well at this time with no signs infection. No fevers, chills and normal white count. 2. Peripheral vascular disease with dry gangrene involving the lower extremities. CT angio of the abdomen did demonstrate some stenosis of the celiac artery and is planning interventional radiology procedure later today. Reportedly, he is not a candidate for aggressive surgical intervention per his documentation. He does have a history of aortic abdominal aneurysm and will need to followup outpatient for this. 3. End-stage renal disease requiring hemodialysis. Appreciate nephrology's input and I believe is hemodialysis day is tomorrow. 4. Chronic anemia secondary to renal disease. He receives periodic Aranesp. 5. Gastroesophageal reflux disease (GERD). Stable on Protonix. 6. Diabetes. Continue fingersticks, sliding scale for coverage and a consistent carbohydrate diet. 7. Peripheral neuropathy with neuropathic pain. Continue on Neurontin. 8. Gout. Continue Uloric. 9. Insomnia. Continue on the Ambien. DISPOSITION: He will undergo interventional radiology procedure today and likely will need hemodialysis tomorrow. Long-term planning and disposition has been discussed at the patient care coordinating rounds this morning, most likely he will need placement.
[2016-04-30] MEDS: CLOPIDOGREL 75 MG TAB PO SCH (09:10)
[2016-04-30] MEDS: ASPIRIN 81 MG ENTERIC TAB PO SCH (09:11)
[2016-04-30] MEDS ORDERED: ISOVUE-300 61% 50ML VIAL (Q9967) As Ordered ONE ×4 (12:01→13:44)
[2016-04-30] MEDS ORDERED: SODIUM BICARBONATE 8.4% INJ 50MEQ 50 ML VIAL As Ordered ONE (12:04)
[2016-04-30] MEDS ORDERED: HEPARIN 1,000 UNITS/ML 10ML VIAL (FOR RADIOLOGY& DIALYSIS ONLY) As Ordered ONE (12:04)
[2016-04-30] MEDS: HEPARIN SOD (PORCINE) 5000 UNITS/ML VIAL SC SCH ×2 (14:00→21:08)
[2016-04-30 15:45] VITALS: BP 134/71
--- NOTE | 2016-04-30 16:04 | REPKIM ---
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 The patient was referred for mesenteric arteriogram possible intervention including PVD. PROCEDURE PERFORMED: 1. Right Iliac Arteriogram and Stent Placement 2. Lateral Abdominal Aortogram 3. Selective Celiac and Superior Mesenteric Arteriograms 4. Celiac Artery Stent Placement 5. Completion Arteriogram INTERVENTIONALIST: Katelyn Heredia MD CONSENT: The risks, benefits and alternatives to the procedure were explained to the patient and informed written consent was obtained. MEDICATIONS: Local Lidocaine, Heparin 5000 units IV CONTRAST: 209 mL Isovue 300 EBL: 20 mL FLUORO TIME: 18.7 minutes DEVICES USED: 7 mm x 19 mm Balloon mounted Express Stent Lot#[id number], Luminexx Vasclar Stent 10 mm x 4 cm Lot#[id number], [place] 10 mm x 4 cm Lot#[id number] PROCEDURE/FINDINGS: ABDOMINAL AORTOGRAM, RIGHT ILIAC ARTERIOGRAM AND RIGHT EXTERNAL ILIAC ARTERY STENT PLACEMENT: The patient was brought to the interventional radiology suite and placed in the supine position. Time out procedure was performed. The right groin was prepped and draped in the usual sterile fashion. The right common femoral artery was accessed using a 25-gague micropuncture needle under ultrasound guidance, after infiltration of the skin and deep tissues with local anesthetic. A 5-Fijian vascular sheath was then introduced into the right common femoral artery using the Seldinger technique. Over a guidewire, a 5 -Fijian selective catheter was advanced and under fluoroscopy positioned in the abdominal aorta at the level of the bifurcation. Contrast was injected and a selective right iliac arteriogram was performed in the frontal and oblique projections. This showed severe stenosis involving the external iliac artery at the distal margin of the pre-exisitng iliac stent. Sheath exchange was performed and a 6-Fijian vascular sheath was introduced over a guidewire. A total of 5000 units of heparin was intravenously administered. A 10 mm x 4 cm Luminexx stent was then threaded over the wire into external iliac artery and deployed. Roadmapping/arteriogram was used to position the stent positioning. The stent was brought to the desired profile using 10 mm angioplasty balloon. Post stent arteriogram showed excellent common iliac/external iliac artery antegrade flow with no significant residual iliac artery stenosis, flow limiting intimal flap or extravasation of contrast. Following this, a 5-Fijian Omniflush catheter was advanced and under fluoroscopy positioned in the abdominal aorta above the level of the celiac artery. Contrast was injected and abdominal aortogram was performed in the lateral projection. SELECTIVE SUPERIOR MESENTERIC ANGIOGRAM: A 5-Fijian selective catheter was introduced. Selective catheterization of the superior mesenteric artery was performed. Contrast was injected and mesenteric angiogram was performed. SELECTIVE CELIAC ARTERIOGRAM AND CELIAC ARTERY STENT PLACEMENT: Selective catheterization of the celiac artery was performed. Contrast was injected and selective celiac angiogram was performed. This showed severe stenosis greater than 90% involving the celiac artery at its origin. A guidewire was then advanced into the celiac artery. A 7 mm x 19 mm Express stent was then threaded over the wire into celiac artery at its origin and deployed. Roadmapping/arteriogram was used to position the stent positioning. The stent was brought to the desired profile using 7mm angioplasty balloon. Post stent arteriogram showed excellent celiac artery antegrade flow with no significant residual celiac artery stenosis, flow limiting intimal flap or extravasation of contrast. The catheter and vascular sheath were removed. Hemostasis was achieved by manual compression and hemostatic pad over the puncture site. The patient tolerated the procedure well with no immediate complications. This procedure was performed with ultrasound and fluoroscopic guidance. Dr. Heredia was present. IMPRESSION: 1. There is diffuse ectasia and atherosclerotic disease, vascular calcification and plaguing. There is an infrarenal abdominal aortic aneurysm of the distal aorta measuring approximately 4 cm. 2. 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 Both common iliac arteries are diseased but patent. Successful right external iliac artery stenting using a 10 mm x 4 cm stent as discussed above. 3. 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 Successful celiac artery stenting using a 7 mm x 19 mm Express stent as discussed above. 4. There is a previously placed and patent stent at the origin of the superior mesenteric artery. PLAN: Continue ASA and Plavix 75 mg daily. Please see the report above for all other findings and details. cc: DO Disha eRal DO Khalid P Sindhu, MD MTDD
[2016-04-30 16:15] VITALS: BP 133/60
[2016-04-30 17:15] VITALS: BP 141/65
[2016-04-30 18:15] VITALS: BP 144/64
--- NOTE | 2016-04-30 18:19 | IPNPDOC ---
Date/Time Seen The patient was seen on 04/30/16 at 18:11. Progress Note DATE OF ENCOUNTER: 04/30/2016 SUBJECTIVE: Patient was seen this morning at bedside. He received hemodialysis yesterday where 2000ml of fluid was removed. He tolerated it well and did not need to come off early due to abdominal pain. He denies any abdominal pain this morning. Review of systems is negative for nausea, vomiting, abdominal pain, diarrhea, fever, chills, chest pain, chest pressure, shortness of breath, headache, lightheadedness, dizziness, bleeding. He denies any abdominal pain after eating. He does have an intention tremor. Afebrile. White count has normalized. OBJECTIVE: Vital Signs Date Time Temp Pulse Resp B/P Pulse Ox O2 Delivery O2 Flow Rate FiO2 04/30/16 17:15 96.9 68 18 141/65 94 Nasal Cannula 2.0 I&O- Last 24 Hours up to 6 AM 04/30/16 06:00 Intake Total 720 ml Output Total 2000 ml Balance -1280 ml GENERAL: Patient is alert and oriented, resting comfortably in bed, no acute distress. HEENT: Normocephalic, atraumatic. Extraocular muscles are intact. Moist mucosa. NECK: Supple. Jugular venous pulsations are not elevated. HEART: Regular rate and rhythm. No murmur appreciated. LUNGS: Clear to auscultation bilaterally. No rales, rhonchi or wheezing. ABDOMEN: Soft, nontender, nondistended. Bowel sounds are present. No rebound, guarding or rigidity. EXTREMITIES: No cyanosis or lower extremity edema. He does have left lower extremity with vascular changes as well as dry gangrene of his toes. SKIN: Warm and dry. No rashes noted. NEUROLOGIC: No focal deficits. Moving all extremities. LABORATORY DATA: 04/30/16 06:34 Calcium Level 8.6 L, Red Blood Count 3.83 L, Mean Corpuscular Volume 109.6 H, Mean Corpuscular Hemoglobin 32.3, Mean Corpuscular Hemoglobin Concent 29.5 L, Red Cell Distribution Width 18.1H, Anion Gap 9, Calcium Level 8.6L, Glomerular Filtration Rate 9.3L ASSESSMENT/PLAN Mr. Rodriguez is an 80-year-old male with past medical history significant for end- stage renal disease on hemodialysis every Thursday, , Thursday, coronary artery disease, hypertension, diabetes, gangrene of bilateral lower extremity toes after recent cardiac catheterization, COPD who was recently discharged from the hospital and now has been readmitted after a fall with weakness and inability to ambulate. 1. End-stage renal disease on hemodialysis. Patient receives dialysis on Tuesdays, and Saturdays. Electrolytes are stable. Analysis session is tomorrow 05/01. 2. Recurrent abdominal pain. 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 He was taken to interventional radiology today for angioplasty, report pending. 3. History of chronic systolic congestive heart failure. Volume status is stable at this time. Continue to correct volume status with hemodialysis. 4. Leukocytosis, resolved. He has completed a week of antibiotics for possible pneumonia versus cellulitis. He is afebrile at this time. Defer to primary team for management. 5. Hypertension. Blood pressure stable on metoprolol 50 mg twice daily. 6. Anemia in end-stage renal disease. Hemoglobin is currently stable. He receives Aranesp as needed during hemodialysis. 7. Chronic gout. The patient continues to be on Uloric daily. 8. Generalized weakness and recent fall. The patient has gangrene of his toes and peripheral vascular disease, which affects his ambulation. Patient will benefit from short-term rehabilitation. Continue aspirin, Plavix, beta sacha and statin therapy for peripheral vascular disease. GME ATTESTATION GME ATTESTATION My preceptor for this patient encounter was physically present in the building during the encounter and was fully available. As needed, all aspects of the patient interview, examination, medical decision making process, and medical care plan development were reviewed and approved by the preceptor. Preceptor is aware and concurs with the plan as stated in the body of this note and will attest to such by his/her cosignature. ATTENDING NOTE Nephrology: Pt examined today AM. Abdominal angiogram pending today. No urgent need for HD after the procedure. Next HD tomorrow. ADIN OATES DO Apr 30, 2016 18:19 NICOLA CHAPMAN MD Apr 30, 2016 18:26
[2016-04-30 22:00] VITALS: BP 144/75
[2016-05-01] MEDS: MULTIVITAMINS/MINERALS THERAP 1 TAB PO SCH (05:45)
[2016-05-01] MEDS: CLOPIDOGREL 75 MG TAB PO SCH (05:45)
[2016-05-01] MEDS: FEBUXOSTAT 40 MG TABLET (ULORIC) PO SCH (05:45)
[2016-05-01] MEDS: HEPARIN SOD (PORCINE) 5000 UNITS/ML VIAL SC SCH ×3 (05:45→21:28)
[2016-05-01] MEDS: GABAPENTIN 100 MG CAP PO SCH ×2 (05:45→21:28)
[2016-05-01] MEDS: guaiFENesin ER 600 MG TAB PO SCH ×2 (05:45→21:28)
[2016-05-01] MEDS: ASPIRIN 81 MG ENTERIC TAB PO SCH (05:46)
[2016-05-01] MEDS: PANTOPRAZOLE 40MG TAB (PROTONIX) PO SCH ×2 (05:46→21:29)
[2016-05-01] MEDS: ATORVASTATIN 20 MG TAB PO SCH (05:46)
[2016-05-01] MEDS: METOPROLOL TART 50 MG TAB PO SCH ×2 (05:48→21:29)
[2016-05-01 06:00] VITALS: BP 143/67
[2016-05-01 06:50] LABS: MEAN CORPUSCULAR HEMOGLOBIN 32.9 pg (27.0-33.0); MEAN CORPUSCULAR HGB CONC 30.9 g/dl (32.0-36.5); MEAN CORPUSCULAR VOLUME 106.5 fl (80.0-96.0); RED CELL DISTRIBUTION WIDTH 16.4 % (11.5-14.5); WHITE BLOOD COUNT 9.2 K/mm3 (4.0-10.0)
[2016-05-01 07:29] LABS: CALCIUM LEVEL 8.2 MG/DL (8.8-10.2); CREATININE FOR GFR 7.9 MG/DL (0.70-1.30); POTASSIUM SERUM 5.1 MEQ/L (3.5-5.1)
[2016-05-01] MEDS: IPRATROPIUM 0.5MG/ALBUTEROL 2.5MG INH SOL UD 3ML (DUONEB)(J7620) NEB SCH ×3 (07:29→20:08)
[2016-05-01] MEDS: HumaLOG INSULIN (NovoLOG) PER UNIT SC SCH ×4 (07:45→20:52)
[2016-05-01] MEDS: PERCOCET 5MG/325MG TAB PO PRN ×2 (10:30→16:28)
[2016-05-01] MEDS ORDERED: HEPARIN 1,000 UNITS/ML 10ML VIAL (FOR RADIOLOGY& DIALYSIS ONLY) IV ONE (10:45)
--- NOTE | 2016-05-01 11:12 | IPN ---
DATE: 05/01/2016 SUBJECTIVE: The patient was seen and examined today in the morning during hemodialysis procedure. He was tolerating the hemodialysis procedure well. He is status post angiogram of the mesenteric vessels and stent placement. He does not have any active complaints at this time. Right groin angiogram site is dressed at this time. REVIEW OF SYSTEMS: The patient denies any fevers, chills, rigors, headache, nausea, vomiting, chest pain, shortness of breath, pain in abdomen, constipation or diarrhea. Rest of the review of systems is negative. OBJECTIVE: VITAL SIGNS: Temperature is 98.1 degrees Fahrenheit, blood pressure is 143/67, pulse is 80, respiratory rate of 18, saturating 98% on nasal cannula. INTAKE AND OUTPUT: There is no urine output recorded. Weight in the bed scale is 91 kg. PHYSICAL EXAMINATION: GENERAL: Patient is awake, alert, oriented times three, laying in bed getting hemodialysis down. No apparent distress. HEAD AND NECK: Extraocular muscles intact. Pupils equally round and reactive to light. Neck is supple. There is no jugular venous distention (JVD). CARDIOVASCULAR: S1, S2, regular rate. No murmur, rub, or gallop. RESPIRATORY: Chest is clear to auscultation bilaterally. Bilateral equal air entry. No rales or rhonchi. ABDOMEN: Soft. Positive bowel sounds. Nontender. No ascites. No organomegaly. EXTREMITIES: Patient has a dressing in the right groin at the angiogram site. No bleeding or hematoma observed. The patient has dry gangrene of multiple toes in the bilateral lower extremities. He has a trace edema of the bilateral lower extremities as well. CENTRAL NERVOUS SYSTEM: No focal neurological deficit. Power is 5/5 in all extremities. SKIN: No rashes or ulcers, except the dry gangrene noted in the bilateral lower extremities. PSYCHIATRIC: Normal mood and affect. LABORATORY REVIEW: CBC showed a WBC of 9.2, hemoglobin 11.6, platelets of 210. BMP showed sodium 137, potassium 5.1, chloride 97, bicarbonate 31, BUN 31, creatinine 7.9, calcium 8.2. IMAGING: The patient is status post fluoroscopic stent placement in the celiac trunk. The official report is still pending. CURRENT MEDICATIONS: The patient's medications were all reviewed by me. There is no change in the medications today as compared with yesterday. ASSESSMENT: 80-year-old male with past medical history of end-stage renal disease, on hemodialysis every Thursday, and Thursday, coronary artery disease, hypertension, diabetes, dry gangrene of the bilateral lower extremity toes, after a recent left heart catheterization. Patient admitted at this time because of weakness, inability to walk and multiple falls. Nephrology service is following the patient for management of end stage renal disease. PLAN: 1. End-stage renal disease on hemodialysis. The patient is being dialyzed according to his regular schedule today. We shall try to dialyze him and remove about 2 to 2.5 liters of fluid as tolerated by his blood pressure. He is being dialyzed against a 2 K bath. 2. Mesenteric ischemia. The patient is status post abdominal angiogram and stent placement. He reports that he is no longer having any pain in the abdomen and his usual complaint of pain in the abdomen during hemodialysis is also improved at this time. 3. Hypertension. The patient's blood pressure is acceptable at this time. Continue current dose of metoprolol 50 mg twice a day. 4. Coronary artery disease and systolic congestive heart failure. Patient's volume status is optimized at this time. Ultrafiltration goal today is about 2 liters as tolerated by his blood pressure. 5. Generalized weakness and inability to walk. Patient has difficulty with ambulation because of gangrene of his toes. He is getting physical therapy. He will probably need rehabilitation placement because of his history of weakness and multiple falls.
--- NOTE | 2016-05-01 12:26 | IPN ---
DATE: 05/01/2016 This is an 80-year-old gentleman seen at bedside. No overnight issues reported. Resting comfortably. He did undergo procedure with interventional radiology in regards to the celiac artery stenosis. I did speak to Dr. Heredia yesterday who felt that he had tolerated the procedure well. He is also to undergo hemodialysis today for his end-stage renal disease. OBJECTIVE: Temperature is 98.1, pulse 80, respiratory rate 18, blood pressure 143/67, respiratory rate is 98% on 2 liters. GENERAL: The patient appears to be in no acute distress. He is alert, oriented, pleasant talk to. HEENT: Unremarkable. LUNGS: Clear. HEART: Regular rate and rhythm. ABDOMEN: Soft. EXTREMITIES: No edema or calf tenderness. LABORATORY DATA: White count 9.2, hemoglobin 11.6, platelets 210,000. Sodium 137, potassium 5.1, chloride 97, bicarbonate 31, anion gap 9, BUN 31, creatinine 7.90, glucose is 157. Blood cultures remain negative for 5 days. ASSESSMENT AND PLAN: 1. Previous pneumonia. He has completed broad-spectrum antibiotics with no signs of infection. He remains afebrile. No chills. No elevated white count. 2. Peripheral vascular disease with dry gangrene involving the lower extremities. He did have interventional procedure done with interventional radiology yesterday. Concerning the stenosis of the celiac artery, please refer to Dr. Heredia's procedure note. He seems to be doing well today. 3. End-stage renal disease requiring hemodialysis. Appreciate nephrology input and he goes for dialysis later this morning. 4. Chronic anemia secondary to renal disease. Receiving periodic Aranesp. I will defer this to nephrology. 5. Gastroesophageal reflux disease (GERD). Stable on Protonix. 6. Diabetes. Continue fingersticks with sliding scale coverage and consistent carbohydrate diet. 7. Peripheral neuropathy with neuropathic pain. Continue on Neurontin. 8. Gout, stable on Uloric. 9. Insomnia. Continue on Ambien. 10. Deep vein thrombosis (DVT) prophylaxis. Subcutaneous heparin. DISPOSITION: The patient tolerated the procedure done yesterday. He has not participated with physical therapy, which is concerning. I would like for him to have at least a home safety evaluation. Long-term disposition has been discussed at patient care coordination rounds to determine whether he is safe to return home or if we need to seek alternate placement.
[2016-05-01 14:00] VITALS: BP 127/70
[2016-05-01] MEDS ORDERED: MUCI600T34 PO (16:13)
[2016-05-01] MEDS ORDERED: GLUC1VL SC (16:13)
[2016-05-01] MEDS ORDERED: INSUHUMDS SC ×2 (16:13)
[2016-05-01] MEDS ORDERED: GLUC4CHW PO (16:13)
[2016-05-01] MEDS ORDERED: CEPA1LOZ2 PO (16:14)
[2016-05-01 22:00] VITALS: BP 130/60
[2016-05-02] MEDS: IPRATROPIUM 0.5MG/ALBUTEROL 2.5MG INH SOL UD 3ML (DUONEB)(J7620) NEB SCH ×5 (00:36→22:23)
[2016-05-02] MEDS: PERCOCET 5MG/325MG TAB PO PRN ×2 (01:40→09:53)
[2016-05-02] MEDS: HEPARIN SOD (PORCINE) 5000 UNITS/ML VIAL SC SCH (05:39)
[2016-05-02 07:00] LABS: MEAN CORPUSCULAR HEMOGLOBIN 32.7 pg (27.0-33.0); MEAN CORPUSCULAR HGB CONC 30.7 g/dl (32.0-36.5); MEAN CORPUSCULAR VOLUME 106.5 fl (80.0-96.0); RED CELL DISTRIBUTION WIDTH 16.7 % (11.5-14.5); WHITE BLOOD COUNT 7.8 K/mm3 (4.0-10.0)
[2016-05-02 07:08] LABS: CALCIUM LEVEL 8.6 MG/DL (8.8-10.2); CREATININE FOR GFR 5.1 MG/DL (0.70-1.30); GLOMERULAR FILTRATION RATE 11.7 (>35); POTASSIUM SERUM 3.9 MEQ/L (3.5-5.1)
[2016-05-02] MEDS: ASPIRIN 81 MG ENTERIC TAB PO SCH (08:18)
[2016-05-02] MEDS: CLOPIDOGREL 75 MG TAB PO SCH (08:18)
[2016-05-02] MEDS: FEBUXOSTAT 40 MG TABLET (ULORIC) PO SCH (08:18)
[2016-05-02] MEDS: PANTOPRAZOLE 40MG TAB (PROTONIX) PO SCH ×2 (08:19→20:41)
[2016-05-02] MEDS: GABAPENTIN 100 MG CAP PO SCH ×2 (08:19→20:41)
[2016-05-02] MEDS: MULTIVITAMINS/MINERALS THERAP 1 TAB PO SCH (08:19)
[2016-05-02] MEDS: guaiFENesin ER 600 MG TAB PO SCH ×2 (08:19→20:41)
[2016-05-02] MEDS: ATORVASTATIN 20 MG TAB PO SCH (08:19)
[2016-05-02] MEDS: METOPROLOL TART 50 MG TAB PO SCH ×2 (08:19→20:41)
[2016-05-02] MEDS: HumaLOG INSULIN (NovoLOG) PER UNIT SC SCH ×4 (08:20→20:46)
[2016-05-02 14:00] VITALS: BP 132/61
--- NOTE | 2016-05-02 15:05 | IPNPDOC ---
Date/Time Seen The patient was seen on 05/02/16 at 14:55. Progress Note DATE OF ENCOUNTER: 05/02/2016 SUBJECTIVE: Patient was seen this morning at bedside. He received hemodialysis yesterday where 2000ml of fluid was removed. Patient reports that during the very end of dialysis he got sick with abdominal cramping. He states that once he had a bowel movement, this discomfort resolved. He reports that this morning he is feeling well. No acute overnight issues. Review of systems is positive for mild nausea. Negative for vomiting, abdominal pain, diarrhea, fever, chills, chest pain, chest pressure, shortness of breath, headache, lightheadedness, dizziness. He had breakfast this morning and denies any abdominal pain after eating. OBJECTIVE: Vital Signs Date Time Temp Pulse Resp B/P Pulse Ox O2 Delivery O2 Flow Rate FiO2 05/02/16 14:00 97.6 67 16 132/61 95 Nasal Cannula 2.0 I&O- Last 24 Hours up to 6 AM 05/02/16 06:00 Intake Total 720 ml Output Total 2000 ml Balance -1280 ml GENERAL: Patient is alert and oriented, sitting up in the chair comfortably, in no acute distress. HEENT: Normocephalic, atraumatic. Extraocular muscles are intact. Moist mucosa. NECK: Supple. Jugular venous pulsations are not elevated. HEART: Regular rate and rhythm. No murmur appreciated. LUNGS: Clear to auscultation bilaterally. No rales, rhonchi or wheezing. ABDOMEN: Soft, nontender, nondistended. Bowel sounds are present. No rebound, guarding or rigidity. EXTREMITIES: No cyanosis. No significant lower extremity edema. His left lower extremity has vascular changes and he has dry gangrene of his toes. SKIN: Warm and dry. No rashes noted. NEUROLOGIC: No focal deficits. Moving all extremities. LABORATORY DATA: 05/02/16 06:39 Calcium Level 8.6 L, Red Blood Count 3.53 L, Mean Corpuscular Volume 106.5 H, Mean Corpuscular Hemoglobin 32.7, Mean Corpuscular Hemoglobin Concent 30.7 L, Red Cell Distribution Width 16.7, Glomerular Filtration Rate 11.7L ASSESSMENT/PLAN Mr. Rodriguez is an 80-year-old male with past medical history significant for end- stage renal disease on hemodialysis every Thursday, , Thursday, coronary artery disease, hypertension, diabetes, gangrene of bilateral lower extremity toes after recent cardiac catheterization, COPD who was recently discharged from the hospital and now has been readmitted after a fall with weakness and inability to ambulate. 1. End-stage renal disease on hemodialysis. Patient receives dialysis on Tuesdays, and Saturdays. Electrolytes are stable. Next dialysis session is tomorrow 05/03. 2. Recurrent abdominal pain. 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 He was seen by interventional radiology and underwent angioplasty on 04/30 where stenting was performed of his celiac artery. 3. History of chronic systolic congestive heart failure. Volume status is stable at this time. Continue to correct volume status with hemodialysis. 4. Hypertension. Blood pressure stable on metoprolol 50 mg twice daily. 5. Anemia in end-stage renal disease. Hemoglobin is currently stable. He receives Aranesp as needed during hemodialysis. 6. Chronic gout. The patient continues to be on Uloric daily. 7. Generalized weakness and recent fall. The patient has gangrene of his toes and peripheral vascular disease, which affects his ambulation. Patient will benefit from physical therapy and hopefully he could continue with this if he goes home. DISPOSITION: On a renal standpoint, patient is stable and we will continue with his regularly scheduled hemodialysis. GME ATTESTATION GME ATTESTATION My preceptor for this patient encounter was physically present in the building during the encounter and was fully available. As needed, all aspects of the patient interview, examination, medical decision making process, and medical care plan development were reviewed and approved by the preceptor. Preceptor is aware and concurs with the plan as stated in the body of this note and will attest to such by his/her cosignature. ATTENDING NOTE Nephrology: Pt was examined this AM during work rounds. I agree with above assessment and recommendations. OK to discharge from nephrology stand point. ADIN OATES DO May 02, 2016 15:05 NICOLA CHAPMAN MD May 02, 2016 20:15
--- NOTE | 2016-05-02 15:32 | IPN ---
DATE: 05/02/2016 80-year-old gentleman seen at bedside. No overnight issues reported. This morning, however, he is having some nausea, vomiting, will try some Zofran ODT. Denies chest pain. OBJECTIVE: Temperature is 97.3, pulse 70, respiratory rate is 18, blood pressure 130/60, SpO2 is 96% on 2 liters. GENERAL: The patient appears to be in no acute distress, he is alert. HEENT: Unremarkable. LUNGS: Diminished bibasilar breath sounds, otherwise clear. HEART: Regular rate and rhythm. ABDOMEN: Obese, soft, nontender. EXTREMITIES: No edema or calf tenderness. LABORATORY DATA: White count 7.8, hemoglobin 11.5, platelets 190,000. Sodium 140, potassium 3.9, chloride 99, bicarbonate 30, anion gap 11, BUN 17, creatinine 5.10, glucose 126. ASSESSMENT/PLAN: 1. Pneumonia. He has completed broad-spectrum antibiotics. He remains afebrile. Normal white count. Will continue to follow clinically. 2. Peripheral vascular disease with dry gangrene lower extremities. Appreciate Dr. Heredia's intervention with interventional radiology and catheterization of stenotic celiac artery. 3. End-stage renal disease requiring hemodialysis. Appreciate nephrology's input. 4. Chronic anemia secondary to renal disease. Receiving periodic Aranesp per nephrology. 5. Gastroesophageal reflux disease (GERD). Stable on Protonix. 6. Diabetes. Continue with sliding scale insulin, fingersticks and consistent carbohydrate diet. 7. Peripheral neuropathy with neuropathic pain. Continue on Neurontin. 8. Gout, stable on Uloric. 9. Insomnia. Continue with Ambien as needed. 10. Deep venous thrombosis (DVT) prophylaxis. Subcutaneous heparin. DISPOSITION: He did have some nausea this morning and we will go ahead and start him on some Zofran ODT as needed. Occupational and physical therapy felt that he did need a few more sessions and will see how he is doing over the next 24-48 hours, he may need to seek rehabilitative services versus alternative placement. I did discuss this with patient and family services (PFS) and patient adult live in caregiver.
[2016-05-02 20:49] VITALS: BP 152/91
[2016-05-03] MEDS: ATORVASTATIN 20 MG TAB PO SCH (05:02)
[2016-05-03] MEDS: ASPIRIN 81 MG ENTERIC TAB PO SCH (05:02)
[2016-05-03] MEDS: FEBUXOSTAT 40 MG TABLET (ULORIC) PO SCH (05:02)
[2016-05-03] MEDS: GABAPENTIN 100 MG CAP PO SCH ×2 (05:03→20:00)
[2016-05-03] MEDS: guaiFENesin ER 600 MG TAB PO SCH ×2 (05:03→20:00)
[2016-05-03] MEDS: CLOPIDOGREL 75 MG TAB PO SCH (05:03)
[2016-05-03] MEDS: MULTIVITAMINS/MINERALS THERAP 1 TAB PO SCH (05:07)
[2016-05-03] MEDS: PANTOPRAZOLE 40MG TAB (PROTONIX) PO SCH ×2 (05:07→20:00)
[2016-05-03] MEDS: METOPROLOL TART 50 MG TAB PO SCH ×2 (05:09→20:11)
[2016-05-03 06:00] VITALS: BP 128/68
[2016-05-03] MEDS: IPRATROPIUM 0.5MG/ALBUTEROL 2.5MG INH SOL UD 3ML (DUONEB)(J7620) NEB SCH ×3 (07:49→20:08)
[2016-05-03] MEDS: ONDANSETRON 4 MG ORAL DISINTEGRATING TAB (S0181) PO PRN (08:28)
[2016-05-03] MEDS: PERCOCET 5MG/325MG TAB PO PRN ×2 (08:28→17:56)
[2016-05-03] MEDS: HumaLOG INSULIN (NovoLOG) PER UNIT SC SCH ×4 (08:29→20:11)
[2016-05-03 09:35] LABS: MEAN CORPUSCULAR HEMOGLOBIN 32.1 pg (27.0-33.0); MEAN CORPUSCULAR HGB CONC 29.8 g/dl (32.0-36.5); MEAN CORPUSCULAR VOLUME 107.9 fl (80.0-96.0); WHITE BLOOD COUNT 10.6 K/mm3 (4.0-10.0)
[2016-05-03 09:44] LABS: CALCIUM LEVEL 8.6 MG/DL (8.8-10.2); CREATININE FOR GFR 7.36 MG/DL (0.70-1.30); GLOMERULAR FILTRATION RATE 7.6 (>35); POTASSIUM SERUM 4.6 MEQ/L (3.5-5.1)
[2016-05-03] MEDS ORDERED: LIDOCAINE 1% SDV 5 ML VIAL SQ ONE (10:45)
[2016-05-03] MEDS ORDERED: HEPARIN 1,000 UNITS/ML 10ML VIAL (FOR RADIOLOGY& DIALYSIS ONLY) IV ONE (10:45)
[2016-05-03 14:00] VITALS: BP 115/53
--- NOTE | 2016-05-03 14:09 | IPN ---
DATE: 05/03/2016 80-year-old gentleman seen at bedside. No overnight issues reported. He had dialysis this morning and he is nauseated afterwards, which appears to be a recurrent thing for him. He denies vomiting. OBJECTIVE: Temperature is 97.2, pulse 63, respiratory rate 18, blood pressure 128/68, SpO2 is 96% on 2 liters. INTAKE AND OUTPUT: There is no recorded amount taken off during dialysis; however, the patient believes that he did have close to 2 liters taken off during dialysis. HEENT: Unremarkable. LUNGS: Clear to auscultation. HEART: Regular rate and rhythm. ABDOMEN: Soft. EXTREMITIES: No edema. No calf tenderness. LABORATORIES: White count 10.6, hemoglobin 11.5, platelets 218,000, sodium 141, potassium 4.6, chloride 101, bicarb 25, anion gap 15, BUN is 28, creatinine 7.36 prior to hemodialysis, calcium 8.6. ASSESSMENT/PLAN: 1. Pneumonia. Completed broad spectrum antibiotics. Remains afebrile. Will keep an eye on his white count. Continue to follow clinically. 2. Peripheral vascular disease with dry gangrene lower extremities. Dr. Heredia did intervene with interventional radiology catheterization of the stenotic celiac artery. 3. End-stage renal disease requiring hemodialysis. Appreciate nephrology's input. Regarding the nausea, I will leave it to nephrology regarding his hemodialysis. He does have Zofran ODT in place. 4. Chronic anemia secondary to renal disease. Receives periodic Aranesp per nephrology. 5. Gastroesophageal reflux disease (GERD). On Protonix. 6. Diabetes. Continue sliding scale insulin based on fingersticks and continue consistent carbohydrate diet. 7. Peripheral neuropathy with neuropathic pain. Continue Neurontin. 8. Gout, stable on Uloric. 9. Insomnia. Continue Ambien as needed. 10. Deep vein thrombosis (DVT) prophylaxis with subcu heparin. DISPOSITION: The patient appears to be stable. Will continue with occupational and physical therapy who did feel that he needs a few more sessions. He may need to follow up with rehabilitative services versus [facility] and placement. Patient and family services (PFS) is aware. I will continue to follow and check with patient client care coordinator on Thursday.
--- NOTE | 2016-05-03 19:47 | IPN ---
DATE: 05/03/2016 SUBJECTIVE: Patient was seen and examined at the bedside today in the morning during hemodialysis. He is tolerating the hemodialysis procedure well. Patient is still complaining of persistent lower abdominal pain. Otherwise, he denies any nausea or vomiting. REVIEW OF SYSTEMS: Patient denies any fever, chills, rigors, headache, nausea, vomiting, chest pain, shortness of breath. He does report pain in lower abdomen but he denies any nausea, vomiting, constipation, or diarrhea. Rest of review of systems is negative. OBJECTIVE: VITAL SIGNS: Temperature 97.2 degrees Fahrenheit, blood pressure 128/68, pulse 62, respiratory rate 18, saturating 96% on nasal cannula. INTAKE/OUTPUT: Urine output is not recorded. Weight in the bed scale is 96 kg. PHYSICAL EXAMINATION: GENERAL: Patient is awake, alert, oriented times three, laying in bed, in no apparent distress. HEAD and NECK: Extraocular muscles intact. Pupils equally round and reactive to light. Neck is supple, there is no jugular venous distention (JVD). CARDIOVASCULAR: S1, S2, regular rate. No murmur, rub, or gallop. RESPIRATORY: Chest is clear to auscultation bilaterally. Bilateral equal air entry. No rales or rhonchi. ABDOMEN: Soft. Positive bowel sounds. Patient has multiple bruises and ecchymosis in the lower abdomen on bilateral sides, which is tender and these sites have bruises and ecchymosis secondary to the subcutaneous heparin injections that patient is receiving. EXTREMITIES: Patient has dry gangrene of multiple toes bilaterally in the lower extremities and there is trace bilateral lower extremity edema. 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 Power is 5/5 in all extremities. SKIN: Skin is dry, otherwise no rashes or ulcers. PSYCHIATRIC: Normal mood and affect. LABORATORY REVIEW: CBC showed WBC 10.6, hemoglobin 11.5, platelets 218. BMP showed sodium 141, potassium 4.6, chloride 101, bicarbonate 25, BUN 28, creatinine 7.3, calcium 8.6. CURRENT MEDICATIONS: Patient's current medications were all reviewed by me and his subcutaneous heparin has been stopped. ASSESSMENT: 80-year-old male with past medical history of end-stage renal disease on hemodialysis Thursday, , Thursday, multiple other comorbidities, admitted at this time because of weakness and inability to walk. Nephrology service following the patient for management of end-stage renal disease. PLAN: 1. End-stage renal disease. Patient is getting dialyzed according to his regular schedule. He is being dialyzed against a 3 potassium (K) bath. We shall try to do an ultrafiltration of around 2 kg as tolerated by his blood pressure. 2. Mesenteric ischemia. Patient is status post abdominal angiogram and stent placement. He has pain in abdomen during dialysis and after food is significantly better. 3. Abdominal pain secondary to abdominal hematomas. Patient has multiple small hematomas at the heparin injection sites. Subcutaneous heparin has been stopped. 4. Hypertension. Blood pressure is well controlled at this time. Continue current dose of metoprolol. 5. Discharge planning. It is okay to discharge the patient from nephrology standpoint whenever he is cleared by physical therapy, but looking at his weakness and inability to walk without help, he would most likely need to be placed in rehabilitation.
[2016-05-03 19:58] VITALS: BP 90/50
[2016-05-03 22:00] VITALS: BP 107/54
[2016-05-03 22:30] VITALS: BP 114/58
[2016-05-04] MEDS: IPRATROPIUM 0.5MG/ALBUTEROL 2.5MG INH SOL UD 3ML (DUONEB)(J7620) NEB SCH ×4 (01:40→19:45)
[2016-05-04 06:00] VITALS: BP 134/64
[2016-05-04 06:54] LABS: MEAN CORPUSCULAR HEMOGLOBIN 32.3 pg (27.0-33.0); MEAN CORPUSCULAR HGB CONC 28.6 g/dl (32.0-36.5); MEAN CORPUSCULAR VOLUME 112.8 fl (80.0-96.0); WHITE BLOOD COUNT 7.4 K/mm3 (4.0-10.0)
[2016-05-04 06:58] LABS: CALCIUM LEVEL 8.7 MG/DL (8.8-10.2); CREATININE FOR GFR 5.3 MG/DL (0.70-1.30); GLOMERULAR FILTRATION RATE 11.2 (>35); POTASSIUM SERUM 3.8 MEQ/L (3.5-5.1)
--- NOTE | 2016-05-04 08:40 | IPNPDOC ---
Assessment/Plan Date Seen The patient was seen on 05/04/16. Problems Problems: (1) Pneumonia Status: Resolved Problem Text: s/p treatment; now off antibiotics (2) Erythema of lower limb Status: Chronic Problem Text: has history of cellulitis in this left soliz; per nursing, the erythema is no worse than it has been; WBC WNL and patient is afebrile; continue to monitor (3) Hypertension Status: Chronic Problem Text: had some hypotension after dialysis yesterday; decrease metoprolol to 25mg BID (4) Generalized weakness Status: Acute Problem Text: due to recent hospitalization and severe muscle deconditioning; PT following; might need rehab (5) ESRD (end stage renal disease) Status: Chronic Problem Text: HD per nephro (6) Peripheral vascular disease Status: Chronic Problem Text: s/p right external iliac stent and celiac stent on 04/30/[address] Heredia; continue ASA and plavix, as well as statin (7) Gangrene Status: Chronic Problem Text: dry gangrene of the toes (8) COPD (chronic obstructive pulmonary disease) Status: Chronic Problem Text: continue home nebs (9) CAD (coronary artery disease) Status: Chronic Problem Text: status post stenting about 1 month ago; continue asa , plavix, betablocker, statin (10) Gout Status: Chronic Problem Text: continue home uloric (11) Diastolic CHF Status: Chronic Response to Treatment: Stable (12) Hyperlipidemia Status: Chronic Problem Text: continue home statin (13) Chronic respiratory failure with hypoxia Status: Chronic Problem Text: continue oxyzen by nasal canula (14) Diabetes Status: Chronic Problem Text: continue SSI; continue neurontin for neuropathy Plan / VTE VTE Prophylaxis Ordered?: Yes (heparin) Subjective Review of Systems CC/HPI The patient is a 80-year-old male admitted with a reason for visit of Esrd; Generalized Weakness. Pulmonary: Reports: Dyspnea, Denies: Cough Cardiovascular: Denies: Chest Pain Objective Physical Examination General Exam: Positive: Alert, Cooperative, No Acute Distress Eye Exam: Positive: EOMI, Negative: Sclera icteric ENT Exam: Positive: Atraumatic, Mucous membr. moist/pink Neck Exam: Positive: Supple Chest Exam: Positive: Normal air movement, Wheezing Heart Exam: Positive: Normal S1, Normal S2, Rate Normal, Regular Rhythm Abdomen Exam: Positive: Normal bowel sounds, Soft Extremity Exam: Positive: Other (erythema of left distal leg) Neuro Exam: Positive: Normal Speech Psych Exam: Positive: Mental status NL Vital Signs/I&O Vital Signs Date Time Temp Pulse Resp B/P Pulse Ox O2 Delivery O2 Flow Rate FiO2 05/04/16 07:25 Nasal Cannula 2.0 05/04/16 06:00 97.5 85 18 134/64 95 I&O- Last 24 Hours up to 6 AM 05/04/16 06:00 Intake Total 1200 ml Output Total 2000 ml Balance -800 ml Laboratory Data Labs 24H Laboratory Tests 2 05/03/16 08:45: Anion Gap 15, Blood Urea Nitrogen 28#H, Creatinine 7.36H, Sodium Level 141, Potassium Level 4.6, Chloride Level 101, Carbon Dioxide Level 25, Calcium Level 8.6L, Glomerular Filtration Rate 7.6L 05/03/16 13:41: Bedside Glucose (Misc Panel) 153H 05/03/16 17:16: Bedside Glucose (Misc Panel) 174H 05/03/16 19:19: Bedside Glucose (Misc Panel) 150H 05/04/16 06:30: Anion Gap 8, Blood Urea Nitrogen 18, Creatinine 5.30H, Sodium Level 138, Potassium Level 3.8, Chloride Level 98, Carbon Dioxide Level 32, Calcium Level 8.7L, Glomerular Filtration Rate 11.2L CBC/BMP Laboratory Tests 05/03/16 08:45 Calcium Level 8.6 L, Red Blood Count 3.58 L, Mean Corpuscular Volume 107.9 H, Mean Corpuscular Hemoglobin 32.1, Mean Corpuscular Hemoglobin Concent 29.8 L, Red Cell Distribution Width 18.0 H 05/04/16 06:30 Calcium Level 8.7 L, Red Blood Count 3.69 L, Mean Corpuscular Volume 112.8 H, Mean Corpuscular Hemoglobin 32.3, Mean Corpuscular Hemoglobin Concent 28.6 L, Red Cell Distribution Width 18.0 H FSBS Laboratory Tests Test 05/03/16 13:41 05/03/16 17:16 05/03/16 19:19 Range/Units Bedside Glucose (Misc Panel) 153 174 150 83-110 MG/DL KRISTA ANGEL May 04, 2016 08:40
[2016-05-04] MEDS ORDERED: HEPARIN SOD (PORCINE) 5000 UNITS/ML VIAL SQ SCH (09:00)
[2016-05-04] MEDS: GABAPENTIN 100 MG CAP PO SCH ×2 (09:06→20:27)
[2016-05-04] MEDS: METOPROLOL TART 25 MG TABLET PO SCH ×2 (09:06→20:27)
[2016-05-04] MEDS: guaiFENesin ER 600 MG TAB PO SCH ×2 (09:06→20:26)
[2016-05-04] MEDS: HumaLOG INSULIN (NovoLOG) PER UNIT SC SCH ×4 (09:06→21:00)
[2016-05-04] MEDS: ASPIRIN 81 MG ENTERIC TAB PO SCH (09:06)
[2016-05-04] MEDS: CLOPIDOGREL 75 MG TAB PO SCH (09:06)
[2016-05-04] MEDS: ATORVASTATIN 20 MG TAB PO SCH (09:06)
[2016-05-04] MEDS: MULTIVITAMINS/MINERALS THERAP 1 TAB PO SCH (09:06)
[2016-05-04] MEDS: PANTOPRAZOLE 40MG TAB (PROTONIX) PO SCH ×2 (09:06→20:27)
[2016-05-04] MEDS: FEBUXOSTAT 40 MG TABLET (ULORIC) PO SCH (09:06)
[2016-05-04] MEDS: PERCOCET 5MG/325MG TAB PO PRN ×2 (09:08→17:23)
--- NOTE | 2016-05-04 13:58 | IPN ---
DATE OF SERVICE: 05/04/2016 SUBJECTIVE: The patient was seen and examined at the bedside today in the morning. He tolerated the hemodialysis procedure well yesterday. He does report that he was also given a dose of heparin this morning, even though it was stopped yesterday by us, and he continues to report lower abdominal pain at this time. REVIEW OF SYSTEMS: The patient denies any fever, chills, rigors, headache, nausea, vomiting, chest pain, shortness of breath. He denies any constipation or diarrhea. He does report the lower abdominal pain at this time. Rest of review of systems is negative. OBJECTIVE: VITAL SIGNS: Temperature is 97.5 degrees Fahrenheit, blood pressure is 134/64, pulse is 85, respiratory rate of 18, saturating 95% on nasal cannula. INTAKE AND OUTPUT: He got hemodialysis done yesterday. Ultrafiltration was 2 liters. Bed scale weight is not available at this time. PHYSICAL EXAMINATION: GENERAL: The patient is awake, alert, oriented times three, lying in bed, in no apparent distress. HEAD AND NECK EXAMINATION: Extraocular muscles intact. Pupils equally round and reactive to light. Neck is supple. There is no jugular venous distention (JVD). CARDIOVASCULAR: S1, S2, regular rate. No murmur, rub, and gallop. RESPIRATORY: Chest is clear to auscultation bilaterally. Bilateral equal air entry. No rales or rhonchi. ABDOMEN: Soft. Positive bowel sounds. He has multiple bruises and ecchymosis in the lower abdomen at the bilateral injection sites. EXTREMITIES: The patient has dry gangrene of multiple toes in the bilateral lower extremities. 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 Power is 5/5 in all extremities. PSYCHIATRIC: Normal mood and affect. LABORATORY REVIEW: CBC showed WBC 7.8, hemoglobin 11.9, platelets of 192. BMP showed sodium 138, potassium 3.8, chloride 98, bicarbonate 32, BUN is 18, creatinine is 5.3. CURRENT MEDICATIONS: The patient's current medications were all reviewed by me. His subcutaneous heparin has been stopped again. His metoprolol dose has been changed to 25 mg by mouth twice a day. ASSESSMENT: An 80-year-old male with past medical history of end-stage renal disease on hemodialysis every Thursday, , Thursday. He was admitted this time because of weakness and inability to walk. 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 Nephrology service following the patient for management of end-stage renal disease. PLAN: 1. End-stage renal disease. The patient got hemodialysis yesterday according to his regular schedule. No need of dialysis at this time. The next hemodialysis session will be on Thursday. Volume status is well optimized at this time. 2. Mesenteric ischemia. The patient got the stenting done by interventional radiology. I do not believe his abdominal pain is coming from his mesenteric ischemia at this time, and beta sacha dose has been decreased. 3. Abdominal pain secondary to abdominal hematomas. I have stopped his subcutaneous heparin at this time. He has multiple ecchymoses and small hematomas in the abdominal wall. Primary team was also informed. 4. Hypertension. I see the primary team has decreased the metoprolol dose to 25 mg by mouth twice a day, which is okay for now. DISCHARGE PLANNING: It is okay to discharge the patient from nephrology standpoint whenever he is cleared by physical therapy.
[2016-05-04 14:00] VITALS: BP 118/56
[2016-05-04 22:00] VITALS: BP 150/70
[2016-05-05] MEDS: IPRATROPIUM 0.5MG/ALBUTEROL 2.5MG INH SOL UD 3ML (DUONEB)(J7620) NEB SCH ×4 (02:00→19:28)
[2016-05-05 06:00] VITALS: BP 145/62
[2016-05-05 06:45] LABS: BASO % 0.4 % (0.0-1.0); EOS # 0.6 K/mm3 (0.0-0.50); EOS % 8.4 % (0.0-3.0); LARGE UNSTAINED CELL # 0.3 K/mm3 (0.0-0.4); LARGE UNSTAINED CELL % 4.9 % (0.0-4.0); LYMPH # 1.3 K/mm3 (1.5-4.5); LYMPH % 19.6 % (24.0-44.0); MEAN CORPUSCULAR HEMOGLOBIN 32.4 pg (27.0-33.0); MEAN CORPUSCULAR HGB CONC 30.2 g/dl (32.0-36.5); MONO # 0.6 K/mm3 (0.0-0.8); NEUTROPHILS # 3.8 K/mm3 (1.8-7.7); NEUTROPHILS % 57.7 % (36.0-66.0); PLATELET COUNT, AUTOMATED 208 k/mm3 (150-450); RED CELL DISTRIBUTION WIDTH 16.3 % (11.5-14.5); WHITE BLOOD COUNT 6.7 K/mm3 (4.0-10.0)
[2016-05-05 07:01] LABS: MEAN CORPUSCULAR VOLUME 107.5 fl (80.0-96.0)
[2016-05-05 07:21] LABS: CALCIUM LEVEL 8.5 MG/DL (8.8-10.2); CREATININE FOR GFR 7.04 MG/DL (0.70-1.30); MAGNESIUM LEVEL 2.2 MG/DL (1.8-2.4); POTASSIUM SERUM 4.1 MEQ/L (3.5-5.1)
[2016-05-05] MEDS: HumaLOG INSULIN (NovoLOG) PER UNIT SC SCH ×4 (07:47→21:00)
[2016-05-05] MEDS: PANTOPRAZOLE 40MG TAB (PROTONIX) PO SCH ×2 (09:02→19:56)
[2016-05-05] MEDS: GABAPENTIN 100 MG CAP PO SCH ×2 (09:02→19:56)
[2016-05-05] MEDS: ASPIRIN 81 MG ENTERIC TAB PO SCH (09:02)
[2016-05-05] MEDS: FEBUXOSTAT 40 MG TABLET (ULORIC) PO SCH (09:02)
[2016-05-05] MEDS: ATORVASTATIN 20 MG TAB PO SCH (09:02)
[2016-05-05] MEDS: MULTIVITAMINS/MINERALS THERAP 1 TAB PO SCH (09:03)
[2016-05-05] MEDS: guaiFENesin ER 600 MG TAB PO SCH ×2 (09:03→19:56)
[2016-05-05] MEDS: CLOPIDOGREL 75 MG TAB PO SCH (09:03)
[2016-05-05] MEDS: METOPROLOL TART 25 MG TABLET PO SCH ×2 (09:03→19:55)
[2016-05-05] MEDS: PERCOCET 5MG/325MG TAB PO PRN (09:42)
--- NOTE | 2016-05-05 13:27 | IPNPDOC ---
Date/Time Seen The patient was seen on 05/05/16 at 13:18. Progress Note DATE OF ENCOUNTER: 05/05/2016 SUBJECTIVE: Patient was seen this morning at bedside. Patient reports that he is doing well this morning. No acute overnight events. Review of systems is negative for nausea, vomiting, abdominal pain, diarrhea, fever, chills, chest pain, chest pressure, shortness of breath, headache, dizziness. He had breakfast this morning and denies any abdominal pain with eating. OBJECTIVE: Vital Signs Date Time Temp Pulse Resp B/P Pulse Ox O2 Delivery O2 Flow Rate FiO2 05/05/16 12:28 Nasal Cannula 2.0 05/05/16 10:20 18 05/05/16 09:03 72 133/60 05/05/16 06:00 98.0 99 I&O- Last 24 Hours up to 6 AM 05/05/16 06:00 Intake Total 1020 ml Output Total 0 ml Balance 1020 ml GENERAL: Patient is alert and oriented, sitting up in the chair comfortably, in no acute distress. HEENT: Normocephalic, atraumatic. Extraocular muscles are intact. Moist mucosa. NECK: Supple. Jugular venous pulsations are not elevated. HEART: Regular rate and rhythm. No murmur appreciated. LUNGS: Good air movement bilaterally. No rhonchi or wheezing appreciated. ABDOMEN: Soft, nontender, nondistended. Bowel sounds are present. No rebound, guarding or rigidity. EXTREMITIES: No cyanosis. No significant lower extremity edema. His left lower extremity has vascular changes and he has chronic dry gangrene of his toes. SKIN: Warm and dry. No rashes noted. NEUROLOGIC: No focal deficits. Moving all extremities. LABORATORY DATA: 05/05/16 06:13 ASSESSMENT/PLAN Mr. Rodriguez is an 80-year-old male with past medical history significant for end- stage renal disease on hemodialysis every Thursday, , Thursday, coronary artery disease, hypertension, diabetes, gangrene of bilateral lower extremity toes after recent cardiac catheterization, COPD who was recently discharged from the hospital and now has been readmitted after a fall. 1. End-stage renal disease on hemodialysis. Patient receives dialysis on Tuesdays, and Saturdays. Electrolytes are stable. Next dialysis session is tomorrow 05/06. 2. Recurrent abdominal pain. Patient has history of mesenteric ischemia when he becomes hypotensive. 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 He was seen by interventional radiology and underwent angioplasty on 04/30 where stenting was performed. We will continue to monitor his abdominal pain during hemodialysis. Blood pressure will also be monitored to avoid these episodes, and less fluid may be taken off if necessary. 3. History of chronic systolic congestive heart failure. Volume status is stable at this time. Continue to correct volume status with hemodialysis. 4. Hypertension. Blood pressure stable on metoprolol 25mg twice daily. 5. Anemia in end-stage renal disease. Hemoglobin is currently stable. He receives Aranesp as needed during hemodialysis. 6. Chronic gout. The patient continues to be on Uloric daily. 7. Deconditioning. The patient also has gangrene of his toes and peripheral vascular disease, which affects his ambulation. Patient will benefit from physical therapy. Discharge planning per primary team. GME ATTESTATION GME ATTESTATION My preceptor for this patient encounter was physically present in the building during the encounter and was fully available. As needed, all aspects of the patient interview, examination, medical decision making process, and medical care plan development were reviewed and approved by the preceptor. Preceptor is aware and concurs with the plan as stated in the body of this note and will attest to such by his/her cosignature. ADNI OATES DO May 05, 2016 13:27
[2016-05-05 14:00] VITALS: BP 158/70
--- NOTE | 2016-05-05 15:37 | IPNPDOC ---
Assessment/Plan Date Seen The patient was seen on 05/05/16. Problems Problems: (1) Pneumonia Status: Resolved Problem Text: s/p treatment; now off antibiotics (2) Erythema of lower limb Status: Chronic Problem Text: has history of cellulitis in this left soliz; per nursing, the erythema is no worse than it has been; appears to be some chronic venous stasis ; WBC WNL and patient is afebrile; continue to monitor (3) Hypertension Status: Chronic Problem Text: had some hypotension after dialysis on Thursday so decreased metoprolol to 25mg BID; adequately controlled (4) Generalized weakness Status: Acute Problem Text: due to recent hospitalization and severe muscle deconditioning; PT and OT following; might need rehab but patient does not want rehab (5) ESRD (end stage renal disease) Status: Chronic Problem Text: HD per nephro (6) Peripheral vascular disease Status: Chronic Problem Text: s/p right external iliac stent and celiac stent on 04/30/[address] Heredia; continue ASA and plavix, as well as statin (7) Gangrene Status: Chronic Problem Text: dry gangrene of the toes (8) COPD (chronic obstructive pulmonary disease) Status: Chronic Problem Text: continue home nebs (9) CAD (coronary artery disease) Status: Chronic Problem Text: status post stenting about 1 month ago; continue asa , plavix, betablocker, statin (10) Gout Status: Chronic Problem Text: continue home uloric (11) Diastolic CHF Status: Chronic Response to Treatment: Stable (12) Hyperlipidemia Status: Chronic Problem Text: continue home statin (13) Chronic respiratory failure with hypoxia Status: Chronic Problem Text: continue oxygen by nasal canula (14) Diabetes Status: Chronic Problem Text: continue SSI; continue neurontin for neuropathy Plan / VTE VTE Prophylaxis Ordered?: Yes (TEDs and SCDs) Subjective Review of Systems CC/HPI The patient is a 80-year-old male admitted with a reason for visit of Esrd; Generalized Weakness. Events since last encounter states he feels a little "blah" but no distinct complaint Pulmonary: Denies: Cough Cardiovascular: Denies: Chest Pain Gastrointestinal: Denies: Vomiting Objective Physical Examination General Exam: Positive: Alert, Cooperative, No Acute Distress Eye Exam: Positive: EOMI, Negative: Sclera icteric ENT Exam: Positive: Atraumatic, Mucous membr. moist/pink Neck Exam: Positive: Supple Chest Exam: Positive: Normal air movement, Wheezing Heart Exam: Positive: Normal S1, Normal S2, Rate Normal, Regular Rhythm Abdomen Exam: Positive: Normal bowel sounds, Other (superficial brusing), Soft Extremity Exam: Positive: Other (erythema of left distal leg) Neuro Exam: Positive: Normal Speech Psych Exam: Positive: Mental status NL Vital Signs/I&O Vital Signs Date Time Temp Pulse Resp B/P Pulse Ox O2 Delivery O2 Flow Rate FiO2 05/05/16 12:28 Nasal Cannula 2.0 05/05/16 10:20 18 05/05/16 09:03 72 133/60 05/05/16 06:00 98.0 99 I&O- Last 24 Hours up to 6 AM 05/05/16 06:00 Intake Total 1020 ml Output Total 0 ml Balance 1020 ml Laboratory Data Labs 24H Laboratory Tests 2 05/04/16 16:52: Bedside Glucose (Misc Panel) 119H 05/04/16 21:02: Bedside Glucose (Misc Panel) 102 05/05/16 06:13: Anion Gap 13, White Blood Count 6.7, Red Blood Count 3.58L, Hemoglobin 11.6L, Hematocrit 38.5L, Mean Corpuscular Volume 107.5#H, Mean Corpuscular Hemoglobin 32.4, Mean Corpuscular Hemoglobin Concent 30.2L, Red Cell Distribution Width 16.3H, Platelet Count 208, Neutrophils (%) (Auto) 57.7, Lymphocytes (%) (Auto) 19.6L, Monocytes (%) (Auto) 9.0H, Eosinophils (%) (Auto) 8.4H, Basophils (%) ( Auto) 0.4, Neutrophils # (Auto) 3.8, Lymphocytes # (Auto) 1.3L, Monocytes # ( Auto) 0.6, Eosinophils # (Auto) 0.6H, Basophils # (Auto) 0.0, Blood Urea Nitrogen 27H, Creatinine 7.04H, Sodium Level 139, Potassium Level 4.1, Chloride Level 98, Carbon Dioxide Level 28, Calcium Level 8.5L, Glomerular Filtration Rate 8.0L, Large Unclassified Cells # 0.3, Large Unclassified Cells % 4.9H, Magnesium Level 2.2 05/05/16 11:30: Bedside Glucose (Misc Panel) 188H CBC/BMP Laboratory Tests 05/05/16 06:13 Calcium Level 8.5 L, Red Blood Count 3.58 L, Mean Corpuscular Volume 107.5 #H, Mean Corpuscular Hemoglobin 32.4, Mean Corpuscular Hemoglobin Concent 30.2 L, Red Cell Distribution Width 16.3 H, Neutrophils (%) (Auto) 57.7, Lymphocytes (% ) (Auto) 19.6 L, Monocytes (%) (Auto) 9.0 H, Eosinophils (%) (Auto) 8.4 H, Basophils (%) (Auto) 0.4, Neutrophils # (Auto) 3.8, Lymphocytes # (Auto) 1.3 L, Monocytes # (Auto) 0.6, Eosinophils # (Auto) 0.6 H, Basophils # (Auto) 0.0 FSBS Laboratory Tests Test 05/04/16 16:52 05/04/16 21:02 05/05/16 11:30 Range/Units Bedside Glucose (Misc Panel) 119 102 188 83-110 MG/DL KRISTA ANGEL May 05, 2016 15:37
[2016-05-05] MEDS: NORCO, ANEXSIA 5/325MG TABLET (HYDROcodone/ACETAMINOPHEN) PO PRN (19:55)
[2016-05-05 22:00] VITALS: BP 142/65
[2016-05-06] MEDS: IPRATROPIUM 0.5MG/ALBUTEROL 2.5MG INH SOL UD 3ML (DUONEB)(J7620) NEB SCH ×4 (01:13→19:49)
[2016-05-06 06:00] VITALS: BP 146/62
[2016-05-06] MEDS: PANTOPRAZOLE 40MG TAB (PROTONIX) PO SCH ×2 (06:46→20:49)
[2016-05-06] MEDS: ASPIRIN 81 MG ENTERIC TAB PO SCH (06:46)
[2016-05-06] MEDS: MIRALAX *UNIT DOSE* 17GM PACKET PO PRN (06:46)
[2016-05-06] MEDS: FEBUXOSTAT 40 MG TABLET (ULORIC) PO SCH (06:46)
[2016-05-06] MEDS: ATORVASTATIN 20 MG TAB PO SCH (06:46)
[2016-05-06] MEDS: METOPROLOL TART 25 MG TABLET PO SCH ×2 (06:46→20:50)
[2016-05-06] MEDS: GABAPENTIN 100 MG CAP PO SCH ×2 (06:46→20:49)
[2016-05-06] MEDS: CLOPIDOGREL 75 MG TAB PO SCH (06:47)
[2016-05-06] MEDS: MULTIVITAMINS/MINERALS THERAP 1 TAB PO SCH (06:47)
[2016-05-06] MEDS: guaiFENesin ER 600 MG TAB PO SCH ×2 (06:47→20:49)
[2016-05-06] MEDS: HumaLOG INSULIN (NovoLOG) PER UNIT SC SCH ×4 (07:40→20:52)
[2016-05-06 10:14] LABS: CALCIUM LEVEL 8.1 MG/DL (8.8-10.2); CREATININE FOR GFR 8.59 MG/DL (0.70-1.30); GLOMERULAR FILTRATION RATE 6.4 (>35); MAGNESIUM LEVEL 2.2 MG/DL (1.8-2.4)
[2016-05-06 10:22] LABS: BASO % 0.7 % (0.0-1.0); EOS # 0.5 K/mm3 (0.0-0.50); EOS % 7.9 % (0.0-3.0); LARGE UNSTAINED CELL # 0.3 K/mm3 (0.0-0.4); LARGE UNSTAINED CELL % 3.8 % (0.0-4.0); MEAN CORPUSCULAR HEMOGLOBIN 32.7 pg (27.0-33.0); MEAN CORPUSCULAR HGB CONC 30.9 g/dl (32.0-36.5); MEAN CORPUSCULAR VOLUME 105.9 fl (80.0-96.0); MONO # 0.6 K/mm3 (0.0-0.8); MONO % 8.5 % (0.0-5.0); NEUTROPHILS # 4.1 K/mm3 (1.8-7.7); NEUTROPHILS % 63.2 % (36.0-66.0); PLATELET COUNT, AUTOMATED 250 k/mm3 (150-450); WHITE BLOOD COUNT 6.5 K/mm3 (4.0-10.0)
--- NOTE | 2016-05-06 11:43 | IPNPDOC ---
Date/Time Seen The patient was seen on 05/06/16 at 11:27. Progress Note DATE OF ENCOUNTER: 05/06/2016 SUBJECTIVE: Mr. Rodriguez was seen this morning during hemodialysis. He feels well and tolerating dialysis. He is not currently experiencing any abdominal pain. Review of systems is negative for nausea, vomiting, diarrhea, fever, chills, chest pain, chest pressure, shortness of breath, headache, dizziness. OBJECTIVE: Vital Signs Date Time Temp Pulse Resp B/P Pulse Ox O2 Delivery O2 Flow Rate FiO2 05/06/16 09:45 Nasal Cannula 2.0 05/06/16 06:00 98.0 62 16 146/62 93 I&O- Last 24 Hours up to 6 AM 05/06/16 06:00 Intake Total 900 ml Output Total 0 ml Balance 900 ml GENERAL: Patient is alert and oriented, laying in bed comfortably, in no acute distress. HEENT: Normocephalic, atraumatic. Extraocular muscles are intact. Moist mucosa. NECK: Supple. Jugular venous pulsations are not elevated. HEART: Regular rate and rhythm. No murmur appreciated. LUNGS: Good air movement bilaterally. No rhonchi or wheezing appreciated. ABDOMEN: Soft, nontender, nondistended. Bowel sounds are present. No rebound, guarding or rigidity. EXTREMITIES: No cyanosis or significant lower extremity edema. 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 SKIN: Warm and dry. No rashes noted. NEUROLOGIC: No focal deficits. Moving all extremities. LABORATORY DATA: 05/06/16 09:36 Red Blood Count 3.46 L, Mean Corpuscular Volume 105.9 H, Mean Corpuscular Hemoglobin 32.7, Mean Corpuscular Hemoglobin Concentration 30.9 L, Red Cell Distribution Width 16.0 H, Anion Gap 14, Calcium Level 8.1L, Glomerular Filtration Rate 6.4L, Magnesium Level 2.2 ASSESSMENT/PLAN Mr. Rodriguez is an 80-year-old male with past medical history significant for end- stage renal disease on hemodialysis every Thursday, , Thursday, coronary artery disease, hypertension, diabetes, gangrene of bilateral lower extremity toes after recent cardiac catheterization, COPD who was recently discharged from the hospital and now has been readmitted after a fall. 1. End-stage renal disease on hemodialysis. He will be dialyzed today as per his normal schedule of Tuesdays, and Saturdays. He has requested that he be dialyzed for 3-1/2 hours instead of 4 hours as he has abdominal cramps during the last half hour of his session. We will try to remove 1.5 L. Potassium is on the high normal side and he will be dialyzed with a lower potassium bath. His hemoglobin is at target and Aranesp has been discontinued, will be given as needed. 2. Recurrent abdominal pain. Patient has history of mesenteric ischemia when he becomes hypotensive. 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 He underwent angioplasty on 04/30 where he had right external iliac artery and celiac artery stenting was performed. Hemodialysis time has been decreased by half an hour to prevent further episodes of abdominal cramping. 3. Chronic systolic congestive heart failure. Volume status will continue to be corrected with hemodialysis. 4. Hypertension. Blood pressure stable. He remains metoprolol 25mg twice daily. 5. Anemia in end-stage renal disease. Hemoglobin is at goal. No intervention needed at this time. 6. Chronic gout. The patient continues to be on Uloric daily. 7. Coronary artery disease and peripheral vascular disease. Patient does not have any cardiac symptoms. He was previously evaluated for peripheral vascular disease and no intervention was deemed necessary. Continue with current medications of aspirin, Plavix, beta sacha and statin. 8. Deconditioning and difficulty with ambulation. He would benefit from further physical therapy. GME ATTESTATION GME ATTESTATION My preceptor for this patient encounter was physically present in the building during the encounter and was fully available. As needed, all aspects of the patient interview, examination, medical decision making process, and medical care plan development were reviewed and approved by the preceptor. Preceptor is aware and concurs with the plan as stated in the body of this note and will attest to such by his/her cosignature. ADIN OATES DO May 06, 2016 11:43
[2016-05-06] MEDS ORDERED: LIDOCAINE 1% SDV 5 ML VIAL SC ONE (12:30)
[2016-05-06] MEDS ORDERED: HEPARIN 1,000 UNITS/ML 10ML VIAL (FOR RADIOLOGY& DIALYSIS ONLY) IV ONE (12:30)
[2016-05-06 14:00] VITALS: BP 95/55
[2016-05-06] MEDS: NORCO, ANEXSIA 5/325MG TABLET (HYDROcodone/ACETAMINOPHEN) PO PRN ×2 (15:24→20:52)
[2016-05-06 22:00] VITALS: BP 108/52
[2016-05-07] MEDS: IPRATROPIUM 0.5MG/ALBUTEROL 2.5MG INH SOL UD 3ML (DUONEB)(J7620) NEB SCH ×4 (02:00→21:26)
[2016-05-07] MEDS: NORCO, ANEXSIA 5/325MG TABLET (HYDROcodone/ACETAMINOPHEN) PO PRN ×2 (04:58→21:02)
[2016-05-07 06:00] VITALS: BP 137/64
[2016-05-07 07:22] LABS: BASO % 0.7 % (0.0-1.0); EOS # 0.7 K/mm3 (0.0-0.50); EOS % 10.1 % (0.0-3.0); LARGE UNSTAINED CELL # 0.3 K/mm3 (0.0-0.4); LARGE UNSTAINED CELL % 4.7 % (0.0-4.0); LYMPH # 1.4 K/mm3 (1.5-4.5); LYMPH % 20.9 % (24.0-44.0); MEAN CORPUSCULAR HEMOGLOBIN 32.3 pg (27.0-33.0); MEAN CORPUSCULAR HGB CONC 30.7 g/dl (32.0-36.5); MEAN CORPUSCULAR VOLUME 105.1 fl (80.0-96.0); MONO # 0.6 K/mm3 (0.0-0.8); NEUTROPHILS # 3.8 K/mm3 (1.8-7.7); NEUTROPHILS % 55.6 % (36.0-66.0); PLATELET COUNT, AUTOMATED 281 k/mm3 (150-450); RED CELL DISTRIBUTION WIDTH 15.8 % (11.5-14.5); WHITE BLOOD COUNT 6.9 K/mm3 (4.0-10.0)
[2016-05-07 07:55] LABS: CALCIUM LEVEL 8.7 MG/DL (8.8-10.2); CREATININE FOR GFR 5.59 MG/DL (0.70-1.30); GLOMERULAR FILTRATION RATE 10.5 (>35); MAGNESIUM LEVEL 2.1 MG/DL (1.8-2.4)
[2016-05-07] MEDS: HumaLOG INSULIN (NovoLOG) PER UNIT SC SCH ×4 (08:06→21:00)
--- NOTE | 2016-05-07 08:58 | IPNPDOC ---
Date/Time Seen The patient was seen on 05/07/16 at 08:51. Progress Note DATE OF ENCOUNTER: 05/07/2016 SUBJECTIVE: Mr. Rodriguez was seen this morning at bedside. He had dialysis for 3- 1/2 hours yesterday and he reports that it was much better tolerated as he did not have significant abdominal cramping. He states that he feels well this morning. No acute overnight events. Review of systems is negative for nausea, vomiting, diarrhea, fever, chills, chest pain, chest pressure, shortness of breath, headache, dizziness. OBJECTIVE: Vital Signs Date Time Temp Pulse Resp B/P Pulse Ox O2 Delivery O2 Flow Rate FiO2 05/07/16 06:00 98.2 68 16 137/64 94 Nasal Cannula 1.0 I&O- Last 24 Hours up to 6 AM 05/07/16 06:00 Intake Total 1320 ml Output Total 1500 ml Balance -180 ml GENERAL: Patient is alert and oriented, sitting in chair comfortably, in no acute distress. HEENT: Normocephalic, atraumatic. Extraocular muscles are intact. Moist mucosa. NECK: Supple. Jugular venous pulsations are not elevated. HEART: Regular rate and rhythm. No murmur appreciated. LUNGS: Good air movement bilaterally. No rhonchi or wheezing appreciated. ABDOMEN: Soft, nontender, nondistended. Bowel sounds are present. No rebound, guarding or rigidity. EXTREMITIES: No cyanosis or significant lower extremity edema. 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 SKIN: Warm and dry. No rashes noted. NEUROLOGIC: No focal deficits. Moving all extremities. LABORATORY DATA: 05/07/16 07:00 ASSESSMENT/PLAN Mr. Rodriguez is an 80-year-old male with past medical history significant for end- stage renal disease on hemodialysis every Thursday, , Thursday, coronary artery disease, hypertension, diabetes, gangrene of bilateral lower extremity toes after recent cardiac catheterization, COPD who was recently discharged from the hospital and now has been readmitted after a fall. 1. End-stage renal disease on hemodialysis. He had hemodialysis yesterday where 1500ml was removed, it was well tolerated at 3-1/2 hours. Continue with normal schedule of Tuesdays, and Saturdays. Electrolytes and hemoglobin are stable. Continue with 1500ml fluid restriction. 2. Recurrent abdominal pain. Patient has history of mesenteric ischemia when he becomes hypotensive. 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 He underwent angioplasty on 04/30 where he had right external iliac artery and celiac artery stenting performed. Hemodialysis was well tolerated yesterday with reducing the time to 3-1/2 hours. 3. Chronic systolic congestive heart failure. Volume status will continue to be corrected with hemodialysis. Appears compensated at this time. 4. Hypertension. Blood pressure stable. He is on metoprolol 25mg twice daily. 5. Anemia in end-stage renal disease. Hemoglobin is at goal. No intervention needed at this time. 6. Chronic gout. He remains on Uloric daily. 7. Coronary artery disease and peripheral vascular disease. Patient does not have any cardiac symptoms. He was previously evaluated for peripheral vascular disease and no intervention was deemed necessary. Continue with current medications of aspirin, Plavix, beta sacha and statin. 8. Deconditioning and difficulty with ambulation. Patient has been noncompliant with physical therapy in the hospital, but would certainly benefit from it. Hopefully, he can receive PT at home as well. DISPOSITION: Mr. Rodriguez will likely be discharged on Thursday. We have stressed the importance of following his 1500ml fluid restriction and he will continue with maintenance hemodialysis. GME ATTESTATION GME ATTESTATION My preceptor for this patient encounter was physically present in the building during the encounter and was fully available. As needed, all aspects of the patient interview, examination, medical decision making process, and medical care plan development were reviewed and approved by the preceptor. Preceptor is aware and concurs with the plan as stated in the body of this note and will attest to such by his/her cosignature. ADIN OATES DO May 07, 2016 08:58
[2016-05-07] MEDS: FEBUXOSTAT 40 MG TABLET (ULORIC) PO SCH (09:02)
[2016-05-07] MEDS: GABAPENTIN 100 MG CAP PO SCH ×2 (09:03→20:59)
[2016-05-07] MEDS: ATORVASTATIN 20 MG TAB PO SCH (09:03)
[2016-05-07] MEDS: guaiFENesin ER 600 MG TAB PO SCH ×2 (09:03→21:00)
[2016-05-07] MEDS: CLOPIDOGREL 75 MG TAB PO SCH (09:03)
[2016-05-07] MEDS: PANTOPRAZOLE 40MG TAB (PROTONIX) PO SCH ×2 (09:03→21:00)
[2016-05-07] MEDS: MULTIVITAMINS/MINERALS THERAP 1 TAB PO SCH (09:03)
[2016-05-07] MEDS: ASPIRIN 81 MG ENTERIC TAB PO SCH (09:03)
[2016-05-07] MEDS: METOPROLOL TART 25 MG TABLET PO SCH ×2 (09:05→21:01)
--- NOTE | 2016-05-07 11:06 | IPNPDOC ---
Assessment/Plan Date Seen The patient was seen on 05/06/16. Problems Problems: (1) Pneumonia Status: Resolved Problem Text: s/p treatment; now off antibiotics (2) Erythema of lower limb Status: Chronic Problem Text: has history of cellulitis in this left soliz; per nursing, the erythema is no worse than it has been; appears to be some chronic venous stasis ; WBC WNL and patient is afebrile; continue to monitor (3) Hypertension Status: Chronic Problem Text: had some hypotension after dialysis on Thursday so decreased metoprolol to 25mg BID; adequately controlled (4) Generalized weakness Status: Acute Problem Text: due to recent hospitalization and severe muscle deconditioning; PT and OT following; might need rehab but patient does not want rehab (5) ESRD (end stage renal disease) Status: Chronic Problem Text: HD per nephro (6) Peripheral vascular disease Status: Chronic Problem Text: s/p right external iliac stent and celiac stent on 04/30/[address] Heredia; continue ASA and plavix, as well as statin (7) Gangrene Status: Chronic Problem Text: dry gangrene of the toes (8) COPD (chronic obstructive pulmonary disease) Status: Chronic Problem Text: continue home nebs (9) CAD (coronary artery disease) Status: Chronic Problem Text: status post stenting about 1 month ago; continue asa , plavix, betablocker, statin (10) Gout Status: Chronic Problem Text: continue home uloric (11) Diastolic CHF Status: Chronic Response to Treatment: Stable (12) Hyperlipidemia Status: Chronic Problem Text: continue home statin (13) Chronic respiratory failure with hypoxia Status: Chronic Problem Text: continue oxygen by nasal canula (14) Diabetes Status: Chronic Problem Text: continue SSI; continue neurontin for neuropathy Plan / VTE VTE Prophylaxis Ordered?: Yes (TEDs and SCDs) Subjective Review of Systems CC/HPI The patient is a 80-year-old male admitted with a reason for visit of Esrd; Generalized Weakness. Events since last encounter no new issues overnight. worked with pt yesterday, has some chronic cough, denies any sob Objective Physical Examination General Exam: Positive: Alert, Cooperative, No Acute Distress Eye Exam: Positive: EOMI, Negative: Sclera icteric ENT Exam: Positive: Atraumatic, Mucous membr. moist/pink Neck Exam: Positive: Supple Chest Exam: Positive: Normal air movement, Wheezing Heart Exam: Positive: Normal S1, Normal S2, Rate Normal, Regular Rhythm Abdomen Exam: Positive: Normal bowel sounds, Other (superficial brusing), Soft Extremity Exam: Positive: Other (erythema of left distal leg) Neuro Exam: Positive: Normal Speech Psych Exam: Positive: Mental status NL Vital Signs/I&O Vital Signs Date Time Temp Pulse Resp B/P Pulse Ox O2 Delivery O2 Flow Rate FiO2 05/06/16 06:00 98.0 62 16 146/62 93 Nasal Cannula 1.0 I&O- Last 24 Hours up to 6 AM 05/06/16 06:00 Intake Total 900 ml Output Total 0 ml Balance 900 ml Laboratory Data Labs 24H Laboratory Tests 2 05/05/16 11:30: Bedside Glucose (Misc Panel) 188H 05/05/16 16:56: Bedside Glucose (Misc Panel) 128H 05/05/16 20:20: Bedside Glucose (Misc Panel) 138H FSBS Laboratory Tests Test 05/05/16 11:30 05/05/16 16:56 05/05/16 20:20 Range/Units Bedside Glucose (Misc Panel) 188 128 138 83-110 MG/DL KIMMY FIGUEREDO MD May 06, 2016 07:09
--- NOTE | 2016-05-07 11:18 | IPNPDOC ---
Assessment/Plan Date Seen The patient was seen on 05/07/16. Problems Problems: (1) Pneumonia Status: Resolved Problem Text: s/p treatment; now off antibiotics (2) Erythema of lower limb Status: Chronic Problem Text: has history of cellulitis in this left soliz; per nursing, the erythema is no worse than it has been; appears to be some chronic venous stasis ; WBC WNL and patient is afebrile; continue to monitor (3) Hypertension Status: Chronic Problem Text: had some hypotension after dialysis on Thursday so decreased metoprolol to 25mg BID; adequately controlled (4) Generalized weakness Status: Acute Problem Text: due to recent hospitalization and severe muscle deconditioning; PT and OT following; might need rehab but patient does not want rehab (5) ESRD (end stage renal disease) Status: Chronic Problem Text: HD per nephro (6) Peripheral vascular disease Status: Chronic Problem Text: s/p right external iliac stent and celiac stent on 04/30/[address] Herdeia; continue ASA and plavix, as well as statin (7) Gangrene Status: Chronic Problem Text: dry gangrene of the toes (8) COPD (chronic obstructive pulmonary disease) Status: Chronic Problem Text: continue home nebs (9) CAD (coronary artery disease) Status: Chronic Problem Text: status post stenting about 1 month ago; continue asa , plavix, betablocker, statin (10) Gout Status: Chronic Problem Text: continue home uloric (11) Diastolic CHF Status: Chronic Response to Treatment: Stable (12) Hyperlipidemia Status: Chronic Problem Text: continue home statin (13) Chronic respiratory failure with hypoxia Status: Chronic Problem Text: continue oxygen by nasal canula (14) Diabetes Status: Chronic Problem Text: continue SSI; continue neurontin for neuropathy (15) Dysphagia Status: Chronic Problem Text: had egd in [facility] about 3 months ago and may have had a dilatation procedure. tolerating soft diet difficulty with dry solid food . will try to get records from [facility] speech and swallow to see him tomorrow Plan / VTE VTE Prophylaxis Ordered?: Yes (TEDs and SCDs) Subjective Review of Systems CC/HPI The patient is a 80-year-old male admitted with a reason for visit of Esrd; Generalized Weakness. Events since last encounter patient complaining of difficulty swallowing and throat pain , no fever or chills, no pain during swallowing says chokes of toast and meat. no fever or chills, no chest pain or sob , no abdominal pain ansea or vomiting or diarrhea. Objective Physical Examination General Exam: Positive: Alert, Cooperative, No Acute Distress Eye Exam: Positive: EOMI, Negative: Sclera icteric ENT Exam: Positive: Atraumatic, Mucous membr. moist/pink Neck Exam: Positive: Supple Chest Exam: Positive: Normal air movement, Wheezing Heart Exam: Positive: Normal S1, Normal S2, Rate Normal, Regular Rhythm Abdomen Exam: Positive: Normal bowel sounds, Other (superficial brusing), Soft Extremity Exam: Positive: Other (erythema of left distal leg) Neuro Exam: Positive: Normal Speech Psych Exam: Positive: Mental status NL Vital Signs/I&O Vital Signs Date Time Temp Pulse Resp B/P Pulse Ox O2 Delivery O2 Flow Rate FiO2 05/07/16 09:45 Nasal Cannula 2.0 05/07/16 09:05 85 137/64 05/07/16 06:00 98.2 16 94 I&O- Last 24 Hours up to 6 AM 05/07/16 06:00 Intake Total 1320 ml Output Total 1500 ml Balance -180 ml Laboratory Data Labs 24H Laboratory Tests 2 05/06/16 13:39: Bedside Glucose (Misc Panel) 142H 05/06/16 16:53: Bedside Glucose (Misc Panel) 195H 05/06/16 20:09: Bedside Glucose (Misc Panel) 97 05/07/16 07:00: Anion Gap 9, White Blood Count 6.9, Red Blood Count 3.66L, Hemoglobin 11.8L, Hematocrit 38.5L, Mean Corpuscular Volume 105.1H, Mean Corpuscular Hemoglobin 32.3, Mean Corpuscular Hemoglobin Concent 30.7L, Red Cell Distribution Width 15.8H, Platelet Count 281, Neutrophils (%) (Auto) 55.6, Lymphocytes (%) (Auto) 20.9L, Monocytes (%) (Auto) 8.0H, Eosinophils (%) (Auto) 10.1H, Basophils (%) ( Auto) 0.7, Neutrophils # (Auto) 3.8, Lymphocytes # (Auto) 1.4L, Monocytes # ( Auto) 0.6, Eosinophils # (Auto) 0.7H, Basophils # (Auto) 0.0, Blood Urea Nitrogen 23H, Creatinine 5.59H, Sodium Level 137, Potassium Level 5.0, Chloride Level 100, Carbon Dioxide Level 28, Calcium Level 8.7L, Glomerular Filtration Rate 10.5L, Large Unclassified Cells # 0.3, Large Unclassified Cells % 4.7H, Magnesium Level 2.1 CBC/BMP Laboratory Tests 05/07/16 07:00 Calcium Level 8.7 L, Red Blood Count 3.66 L, Mean Corpuscular Volume 105.1 H, Mean Corpuscular Hemoglobin 32.3, Mean Corpuscular Hemoglobin Concent 30.7 L, Red Cell Distribution Width 15.8 H, Neutrophils (%) (Auto) 55.6, Lymphocytes (% ) (Auto) 20.9 L, Monocytes (%) (Auto) 8.0 H, Eosinophils (%) (Auto) 10.1 H, Basophils (%) (Auto) 0.7, Neutrophils # (Auto) 3.8, Lymphocytes # (Auto) 1.4 L, Monocytes # (Auto) 0.6, Eosinophils # (Auto) 0.7 H, Basophils # (Auto) 0.0 FSBS Laboratory Tests Test 05/06/16 13:39 05/06/16 16:53 05/06/16 20:09 Range/Units Bedside Glucose (Misc Panel) 142 195 97 83-110 MG/DL KIMMY FIGUEREDO MD May 07, 2016 11:18
[2016-05-07 14:00] VITALS: BP 138/68
[2016-05-07 22:00] VITALS: BP 130/60
[2016-05-08] MEDS: IPRATROPIUM 0.5MG/ALBUTEROL 2.5MG INH SOL UD 3ML (DUONEB)(J7620) NEB SCH ×5 (00:31→22:56)
[2016-05-08] MEDS: ATORVASTATIN 20 MG TAB PO SCH (05:43)
[2016-05-08] MEDS: MULTIVITAMINS/MINERALS THERAP 1 TAB PO SCH (05:43)
[2016-05-08] MEDS: PANTOPRAZOLE 40MG TAB (PROTONIX) PO SCH ×2 (05:44→20:15)
[2016-05-08] MEDS: CLOPIDOGREL 75 MG TAB PO SCH (05:44)
[2016-05-08] MEDS: guaiFENesin ER 600 MG TAB PO SCH ×2 (05:44→20:15)
[2016-05-08] MEDS: FEBUXOSTAT 40 MG TABLET (ULORIC) PO SCH (05:44)
[2016-05-08] MEDS: ASPIRIN 81 MG ENTERIC TAB PO SCH (05:45)
[2016-05-08] MEDS: GABAPENTIN 100 MG CAP PO SCH ×2 (05:45→20:14)
[2016-05-08 06:00] VITALS: BP 145/70
[2016-05-08] MEDS: METOPROLOL TART 25 MG TABLET PO SCH ×2 (07:29→20:15)
[2016-05-08] MEDS: HumaLOG INSULIN (NovoLOG) PER UNIT SC SCH ×5 (07:45→20:15)
[2016-05-08] MEDS ORDERED: VARIBAR PUDDING 40% w/v 230ML TUBE As Ordered ONE (08:37)
[2016-05-08] MEDS ORDERED: E-Z-PAQUE 96% w/w SUSP 176GM BTL As Ordered ONE (08:38)
[2016-05-08] MEDS ORDERED: VARIBAR NECTAR 40% w/v 240ML SUSP BTL As Ordered ONE (08:38)
--- NOTE | 2016-05-08 09:19 | REP ---
Chest x-ray: Sitting AP and lateral views. History: Increased cough. Comparison study April 24, 2016. Findings: Heart is mildly prominent. Vascular markings are somewhat congested. No focal infiltrate is appreciated however. Pleural angles are sharp. The aorta is calcific and tortuous as before. Oxygen tubing is seen. Impression: Mildly prominent heart and some pulmonary vascular congestion. No focal infiltrate. No pleural effusion or pulmonary edema seen. Signed by Brad Posada MD 05/08/2016 09:26 A
--- NOTE | 2016-05-08 09:21 | REP ---
Modified barium swallow: Video pharyngogram: Fluoroscopy time 45 seconds. Findings: Lateral video fluoroscopy is provided to the swallowing therapist. When the patient was observed to ingest a thin liquid barium, laryngeal reflux and tracheal aspiration productive of cough was observed. With thicker consistencies of barium ingestion, laryngeal penetration was observed but no further aspiration was seen. There is some discogenic spurring at C4-5 in the cervical spine. Impression: Aspiration observed with thin liquids. Signed by Brad Posada MD 05/08/2016 09:27 A
[2016-05-08 10:35] LABS: BASO # 0.1 K/mm3 (0.0-0.2); EOS # 0.8 K/mm3 (0.0-0.50); EOS % 8.5 % (0.0-3.0); LARGE UNSTAINED CELL # 0.3 K/mm3 (0.0-0.4); LARGE UNSTAINED CELL % 3.6 % (0.0-4.0); LYMPH # 1.5 K/mm3 (1.5-4.5); MEAN CORPUSCULAR HEMOGLOBIN 31.5 pg (27.0-33.0); MEAN CORPUSCULAR HGB CONC 29.7 g/dl (32.0-36.5); MEAN CORPUSCULAR VOLUME 106.1 fl (80.0-96.0); MONO # 0.9 K/mm3 (0.0-0.8); MONO % 9.3 % (0.0-5.0); NEUTROPHILS % 64.6 % (36.0-66.0); PLATELET COUNT, AUTOMATED 308 k/mm3 (150-450); RED CELL DISTRIBUTION WIDTH 16.9 % (11.5-14.5); WHITE BLOOD COUNT 9.2 K/mm3 (4.0-10.0)
[2016-05-08] MEDS ORDERED: LIDOCAINE 1% SDV 5 ML VIAL SC ONE (10:45)
[2016-05-08 10:54] LABS: CALCIUM LEVEL 8.4 MG/DL (8.8-10.2); CREATININE FOR GFR 7.69 MG/DL (0.70-1.30); GLOMERULAR FILTRATION RATE 7.3 (>35); MAGNESIUM LEVEL 2.2 MG/DL (1.8-2.4)
--- NOTE | 2016-05-08 10:59 | IPNPDOC ---
Assessment/Plan Date Seen The patient was seen on 05/08/16. Problems Problems: (1) Dysphagia Status: Chronic Problem Text: had egd in [facility] about 3 months ago and may have had a dilatation procedure. tolerating soft diet difficulty with dry solid food . will try to get records from [facility] swallow evaluation shows aspiration of thin liquids, diet modified to honey thick liquids . (2) Pneumonia Status: Resolved Problem Text: s/p treatment; now off antibiotics (3) Erythema of lower limb Status: Chronic Problem Text: has history of cellulitis in this left soliz; per nursing, the erythema is no worse than it has been; appears to be some chronic venous stasis ; WBC WNL and patient is afebrile; continue to monitor (4) Hypertension Status: Chronic Problem Text: had some hypotension after dialysis on Thursday so decreased metoprolol to 25mg BID; adequately controlled (5) Generalized weakness Status: Acute Problem Text: due to recent hospitalization and severe muscle deconditioning; PT and OT following; might need rehab but patient does not want rehab (6) ESRD (end stage renal disease) Status: Chronic Problem Text: HD per nephro (7) Peripheral vascular disease Status: Chronic Problem Text: s/p right external iliac stent and celiac stent on 04/30/[address] Heredia; continue ASA and plavix, as well as statin (8) Gangrene Status: Chronic Problem Text: dry gangrene of the toes (9) COPD (chronic obstructive pulmonary disease) Status: Chronic Problem Text: continue home nebs (10) CAD (coronary artery disease) Status: Chronic Problem Text: status post stenting about 1 month ago; continue asa , plavix, betablocker, statin (11) Gout Status: Chronic Problem Text: continue home uloric (12) Diastolic CHF Status: Chronic Response to Treatment: Stable (13) Hyperlipidemia Status: Chronic Problem Text: continue home statin (14) Chronic respiratory failure with hypoxia Status: Chronic Problem Text: continue oxygen by nasal canula (15) Diabetes Status: Chronic Problem Text: continue SSI; continue neurontin for neuropathy Plan / VTE VTE Prophylaxis Ordered?: Yes (TEDs and SCDs) Subjective Review of Systems CC/HPI The patient is a 80-year-old male admitted with a reason for visit of Esrd; Generalized Weakness. Events since last encounter no complaints this morning , has some static tremor and perioral tremor , no fever or chills, no chest pain or sob , no abdominal pain nausea or vomiting. Objective Physical Examination General Exam: Positive: Alert, Cooperative, No Acute Distress Eye Exam: Positive: EOMI, Negative: Sclera icteric ENT Exam: Positive: Atraumatic, Mucous membr. moist/pink Neck Exam: Positive: Supple Chest Exam: Positive: Normal air movement, Wheezing Heart Exam: Positive: Normal S1, Normal S2, Rate Normal, Regular Rhythm Abdomen Exam: Positive: Normal bowel sounds, Other (superficial brusing), Soft Extremity Exam: Positive: Other (erythema of left distal leg) Neuro Exam: Positive: Normal Speech Psych Exam: Positive: Mental status NL Vital Signs/I&O Vital Signs Date Time Temp Pulse Resp B/P Pulse Ox O2 Delivery O2 Flow Rate FiO2 05/08/16 07:51 Nasal Cannula 2.0 05/08/16 06:00 99.0 77 18 145/70 96 I&O- Last 24 Hours up to 6 AM 05/08/16 06:00 Intake Total 1680 ml Output Total 0 ml Balance 1680 ml Laboratory Data Labs 24H Laboratory Tests 2 05/07/16 11:39: Bedside Glucose (Misc Panel) 147H 05/07/16 20:54: Bedside Glucose (Misc Panel) 157H 05/08/16 07:36: Bedside Glucose (Misc Panel) 150H 05/08/16 09:45: White Blood Count 9.2, Red Blood Count 3.56L, Hemoglobin 11.2L, Hematocrit 37.8L , Mean Corpuscular Volume 106.1H, Mean Corpuscular Hemoglobin 31.5, Mean Corpuscular Hemoglobin Concent 29.7L, Red Cell Distribution Width 16.9H, Platelet Count 308, Neutrophils (%) (Auto) 64.6, Lymphocytes (%) (Auto) 13.0L, Monocytes (%) (Auto) 9.3H, Eosinophils (%) (Auto) 8.5H, Basophils (%) (Auto) 1.0 , Neutrophils # (Auto) 6.0, Lymphocytes # (Auto) 1.5, Monocytes # (Auto) 0.9H, Eosinophils # (Auto) 0.8H, Basophils # (Auto) 0.1, Large Unclassified Cells # 0.3, Large Unclassified Cells % 3.6 CBC/BMP Laboratory Tests 05/08/16 09:45 Red Blood Count 3.56 L, Mean Corpuscular Volume 106.1 H, Mean Corpuscular Hemoglobin 31.5, Mean Corpuscular Hemoglobin Concent 29.7 L, Red Cell Distribution Width 16.9 H, Neutrophils (%) (Auto) 64.6, Lymphocytes (%) (Auto) 13.0 L, Monocytes (%) (Auto) 9.3 H, Eosinophils (%) (Auto) 8.5 H, Basophils (%) (Auto) 1.0, Neutrophils # (Auto) 6.0, Lymphocytes # (Auto) 1.5, Monocytes # ( Auto) 0.9 H, Eosinophils # (Auto) 0.8 H, Basophils # (Auto) 0.1 FSBS Laboratory Tests Test 05/07/16 11:39 05/07/16 20:54 05/08/16 07:36 Range/Units Bedside Glucose (Misc Panel) 147 157 150 83-110 MG/DL KIMMY FIGUEREDO MD May 08, 2016 10:59
[2016-05-08] MEDS ORDERED: HEPARIN 1,000 UNITS/ML 10ML VIAL (FOR RADIOLOGY& DIALYSIS ONLY) IV ONE (11:00)
[2016-05-08 11:03] LABS: POTASSIUM SERUM 5.5 MEQ/L (3.5-5.1)
--- NOTE | 2016-05-08 11:52 | IPNPDOC ---
Date/Time Seen The patient was seen on 05/08/16 at 11:42. Progress Note DATE OF ENCOUNTER: 05/08/2016 SUBJECTIVE: Mr. Rodriguez was seen this morning during hemodialysis. He does report increased cough and sputum production. He was having difficulty swallowing and a swallow evaluation revealed aspiration with thin liquids. Chest x-ray done this morning did not show any acute findings. He denies any shortness of breath or chest pain. He is not requiring more oxygen. No nausea, vomiting, diarrhea, abdominal pain, headache, dizziness. OBJECTIVE: Vital Signs Date Time Temp Pulse Resp B/P Pulse Ox O2 Delivery O2 Flow Rate FiO2 05/08/16 07:51 Nasal Cannula 2.0 05/08/16 06:00 99.0 77 18 145/70 96 I&O- Last 24 Hours up to 6 AM 05/08/16 06:00 Intake Total 1680 ml Output Total 0 ml Balance 1680 ml GENERAL: Patient is alert and oriented, laying in bed comfortably, in no acute distress. HEENT: Normocephalic, atraumatic. Extraocular muscles are intact. Moist mucosa. NECK: Supple. Jugular venous pulsations are not elevated. HEART: Regular rate and rhythm. No murmur appreciated. LUNGS: Good air movement bilaterally. No rhonchi or wheezing appreciated. ABDOMEN: Soft, nontender, nondistended. Bowel sounds are present. No rebound, guarding or rigidity. EXTREMITIES: No cyanosis or significant lower extremity edema. 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 SKIN: Warm and dry. No rashes noted. NEUROLOGIC: No focal deficits. Moving all extremities. LABORATORY DATA: 05/08/16 09:45 ASSESSMENT/PLAN Mr. Rodriguez is an 80-year-old male with past medical history significant for end- stage renal disease on hemodialysis every Thursday, , Thursday, coronary artery disease, hypertension, diabetes, gangrene of bilateral lower extremity toes after recent cardiac catheterization, COPD who was recently discharged from the hospital and now has been readmitted after a fall. 1. End-stage renal disease on hemodialysis. He is being dialyzed today. We will dialyze him for 3-1/2 hours. We will obtain a pre-dialysis and postdialysis BUN to assess the effectiveness of dialysis with reduced time. Continue with normal schedule of Tuesdays, and Saturdays. Electrolytes and hemoglobin are stable. Continue with 1500ml fluid restriction. 2. Hyperkalemia. Patient is currently receiving hemodialysis which showed correct his potassium. 3. Dysphagia. He had a swallow evaluation which showed aspiration with thin liquids. His diet will likely be changed to thickened liquid. This is probably the cause of his increased cough with drinking. 4. Recurrent abdominal pain. Patient has history of mesenteric ischemia when he becomes hypotensive. 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 He underwent angioplasty on 04/30 where he had right external iliac artery and celiac artery stenting performed. Hemodialysis is better tolerated at 3-1/2 hours. 5. Chronic systolic congestive heart failure. Volume status will continue to be corrected with hemodialysis. Appears compensated at this time. 6. Hypertension. Blood pressure stable. He is on metoprolol 25mg twice daily. 7. Anemia in end-stage renal disease. Hemoglobin is at goal. No intervention needed at this time. 8. Chronic gout. He remains on Uloric daily. 9. Coronary artery disease and peripheral vascular disease. Patient does not have any cardiac symptoms. He was previously evaluated for peripheral vascular disease and no intervention was deemed necessary. Continue with current medications of aspirin, Plavix, beta sacha and statin. 10. Deconditioning. Encouraged increased physical activity and continue working with physical therapy. DISPOSITION: Mr. Rodriguez will likely be discharged tomorrow. We have stressed the importance of following his 1500ml fluid restriction and he will continue with maintenance hemodialysis. GME ATTESTATION GME ATTESTATION My preceptor for this patient encounter was physically present in the building during the encounter and was fully available. As needed, all aspects of the patient interview, examination, medical decision making process, and medical care plan development were reviewed and approved by the preceptor. Preceptor is aware and concurs with the plan as stated in the body of this note and will attest to such by his/her cosignature. ADIN OATES DO May 08, 2016 11:52
[2016-05-08] MEDS: NORCO, ANEXSIA 5/325MG TABLET (HYDROcodone/ACETAMINOPHEN) PO PRN (13:52)
[2016-05-08 14:30] VITALS: BP 111/55
[2016-05-08 22:00] VITALS: BP 132/63
[2016-05-09 06:00] VITALS: BP 139/64
[2016-05-09 07:16] LABS: MEAN CORPUSCULAR HEMOGLOBIN 31.4 pg (27.0-33.0); MEAN CORPUSCULAR HGB CONC 29.7 g/dl (32.0-36.5); MEAN CORPUSCULAR VOLUME 105.7 fl (80.0-96.0); PLATELET COUNT, AUTOMATED 342 k/mm3 (150-450); RED CELL DISTRIBUTION WIDTH 15.5 % (11.5-14.5); WHITE BLOOD COUNT 7.1 K/mm3 (4.0-10.0)
[2016-05-09] MEDS: IPRATROPIUM 0.5MG/ALBUTEROL 2.5MG INH SOL UD 3ML (DUONEB)(J7620) NEB SCH ×3 (07:25→20:11)
[2016-05-09 07:32] LABS: CALCIUM LEVEL 8.7 MG/DL (8.8-10.2); CREATININE FOR GFR 5.02 MG/DL (0.70-1.30); GLOMERULAR FILTRATION RATE 11.9 (>35); MAGNESIUM LEVEL 2.1 MG/DL (1.8-2.4); POTASSIUM SERUM 4.7 MEQ/L (3.5-5.1)
[2016-05-09] MEDS: CLOPIDOGREL 75 MG TAB PO SCH (08:48)
[2016-05-09] MEDS: PANTOPRAZOLE 40MG TAB (PROTONIX) PO SCH ×2 (08:48→20:32)
[2016-05-09] MEDS: MULTIVITAMINS/MINERALS THERAP 1 TAB PO SCH (08:48)
[2016-05-09] MEDS: HumaLOG INSULIN (NovoLOG) PER UNIT SC SCH ×4 (08:48→20:31)
[2016-05-09] MEDS: ATORVASTATIN 20 MG TAB PO SCH (08:48)
[2016-05-09 08:49] LABS: BASOPHILS 1 % (0-4); EOSINOPHILS 12 % (0-5)
[2016-05-09] MEDS: METOPROLOL TART 25 MG TABLET PO SCH ×2 (08:49→20:33)
[2016-05-09 08:50] LABS: ANISOCYTOSIS 1+; HYPOCHROMASIA 2+
[2016-05-09] MEDS: guaiFENesin ER 600 MG TAB PO SCH ×2 (08:50→20:31)
[2016-05-09] MEDS: FEBUXOSTAT 40 MG TABLET (ULORIC) PO SCH (08:50)
[2016-05-09] MEDS: NORCO, ANEXSIA 5/325MG TABLET (HYDROcodone/ACETAMINOPHEN) PO PRN ×3 (08:50→23:28)
[2016-05-09] MEDS: GABAPENTIN 100 MG CAP PO SCH ×2 (08:51→20:31)
[2016-05-09] MEDS: ASPIRIN 81 MG ENTERIC TAB PO SCH (08:51)
--- NOTE | 2016-05-09 09:12 | IPNPDOC ---
Date/Time Seen The patient was seen on 05/09/16 at 09:04. Progress Note DATE OF ENCOUNTER: 05/09/2016 SUBJECTIVE: Mr. Rodriguez was seen this morning at bedside. He had hemodialysis yesterday where 2000ml was removed. He reports that he had some abdominal pain towards the very end of HD. He states that he still has a little pain this morning and feels nauseous. No vomiting, diarrhea, headache, dizziness. No chest pain or shortness of breath. He has worked with occupational therapy this morning but now he is laying in bed. OBJECTIVE: Vital Signs Date Time Temp Pulse Resp B/P Pulse Ox O2 Delivery O2 Flow Rate FiO2 05/09/16 09:00 Nasal Cannula 2.0 05/09/16 08:50 18 05/09/16 08:49 86 139/64 05/09/16 06:00 99.1 94 I&O- Last 24 Hours up to 6 AM 05/09/16 06:00 Intake Total 390 ml Output Total 2000 ml Balance -1610 ml GENERAL: Patient is alert and oriented, sitting in chair comfortably, in no acute distress. HEENT: Normocephalic, atraumatic. Extraocular muscles are intact. Moist mucosa. NECK: Supple. Jugular venous pulsations are not elevated. HEART: Regular rate and rhythm. No murmur appreciated. LUNGS: Good air movement bilaterally. No rhonchi or wheezing appreciated. ABDOMEN: Soft, nontender, nondistended. Bowel sounds are present. No rebound, guarding or rigidity. EXTREMITIES: No cyanosis or significant lower extremity edema. 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 SKIN: Warm and dry. No rashes noted. NEUROLOGIC: No focal deficits. Moving all extremities. LABORATORY DATA: 05/09/16 06:27 ASSESSMENT/PLAN Mr. Rodriguez is an 80-year-old male with past medical history significant for end- stage renal disease on hemodialysis every Thursday, , Thursday, coronary artery disease, hypertension, diabetes, gangrene of bilateral lower extremity toes after recent cardiac catheterization, COPD who was recently discharged from the hospital and now has been readmitted after a fall. 1. End-stage renal disease on hemodialysis. He was dialyzed yesterday for 3-1/ 2 hours. His post-dialysis BUN shows adequate dialysis. Continue with normal schedule of Tuesdays, and Saturdays. Electrolytes and hemoglobin are stable. Continue with 1500ml fluid restriction. He is having some GI upset and may be a bit hypovolemic after receiving dialysis yesterday, therefore, we will give him a 500ml bolus of normal saline. 2. Hyperkalemia, resolved after hemodialysis. Electrolytes will continue to be monitored 3. Dysphagia. He had a swallow evaluation which showed aspiration with thin liquids. His diet has been changed to mechanical soft with thickened liquids, being managed by primary team. 4. Recurrent abdominal pain. Patient has history of mesenteric ischemia when he becomes hypotensive. 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 He underwent angioplasty on 04/30 where he had right external iliac artery and celiac artery stenting performed. 5. Chronic systolic congestive heart failure. Volume status will continue to be corrected with hemodialysis. Appears compensated at this time. 6. Hypertension. Blood pressure stable. He is on metoprolol 25mg twice daily. 7. Anemia in end-stage renal disease. Hemoglobin is at goal. No intervention needed at this time. 8. Chronic gout. He remains on Uloric daily. 9. Coronary artery disease and peripheral vascular disease. Patient does not have any cardiac symptoms. He was previously evaluated for peripheral vascular disease and no intervention was deemed necessary. Continue with current medications of aspirin, Plavix, beta sacha and statin. 10. Deconditioning. Encouraged increased physical activity and continue working with physical therapy. DISPOSITION: Mr. Rodriguez will continue to receive maintenance hemodialysis. Discharge is pending medical and occupational therapy clearance. He should remain on a 1500ml fluid restriction. GME ATTESTATION GME ATTESTATION My preceptor for this patient encounter was physically present in the building during the encounter and was fully available. As needed, all aspects of the patient interview, examination, medical decision making process, and medical care plan development were reviewed and approved by the preceptor. Preceptor is aware and concurs with the plan as stated in the body of this note and will attest to such by his/her cosignature. ADIN OATES DO May 09, 2016 09:12
[2016-05-09] MEDS ORDERED: SODIUM CHLORIDE 0.9% 1000 ML IV ONE (10:45)
--- NOTE | 2016-05-09 11:36 | IPNPDOC ---
Assessment/Plan Date Seen The patient was seen on 05/09/16. Problems Problems: (1) Dysphagia Status: Chronic Problem Text: had egd in [facility] about 3 months ago and may have had a dilatation procedure. tolerating soft diet difficulty with dry solid food . will try to get records from [facility] swallow evaluation shows aspiration of thin liquids, diet modified to honey thick liquids . (2) Pneumonia Status: Resolved Problem Text: s/p treatment; now off antibiotics (3) Erythema of lower limb Status: Chronic Problem Text: has history of cellulitis in this left soliz; per nursing, the erythema is no worse than it has been; appears to be some chronic venous stasis ; WBC WNL and patient is afebrile; continue to monitor (4) Hypertension Status: Chronic Problem Text: had some hypotension after dialysis on Thursday so decreased metoprolol to 25mg BID; adequately controlled (5) Generalized weakness Status: Acute Problem Text: due to recent hospitalization and severe muscle deconditioning; PT and OT following; might need rehab but patient does not want rehab (6) ESRD (end stage renal disease) Status: Chronic Problem Text: HD per nephro (7) Peripheral vascular disease Status: Chronic Problem Text: s/p right external iliac stent and celiac stent on 04/30/[address] Heredia; continue ASA and plavix, as well as statin (8) Gangrene Status: Chronic Problem Text: dry gangrene of the toes (9) COPD (chronic obstructive pulmonary disease) Status: Chronic Problem Text: continue home nebs (10) CAD (coronary artery disease) Status: Chronic Problem Text: status post stenting about 1 month ago; continue asa , plavix, betablocker, statin (11) Gout Status: Chronic Problem Text: continue home uloric (12) Diastolic CHF Status: Chronic Response to Treatment: Stable (13) Hyperlipidemia Status: Chronic Problem Text: continue home statin (14) Chronic respiratory failure with hypoxia Status: Chronic Problem Text: continue oxygen by nasal canula (15) Diabetes Status: Chronic Problem Text: continue SSI; continue neurontin for neuropathy Plan / VTE VTE Prophylaxis Ordered?: Yes (TEDs and SCDs) Subjective Review of Systems CC/HPI The patient is a 80-year-old male admitted with a reason for visit of Esrd; Generalized Weakness. Events since last encounter feeling extremely weak and tired today, unable to work with occupational therapy , no fever or chills, no chest pain or sob , no abdominal pain , nausea or vomiting or diarrhea. Objective Physical Examination General Exam: Positive: Alert, Cooperative, No Acute Distress Eye Exam: Positive: EOMI, Negative: Sclera icteric ENT Exam: Positive: Atraumatic, Mucous membr. moist/pink Neck Exam: Positive: Supple Chest Exam: Positive: Normal air movement, Wheezing Heart Exam: Positive: Normal S1, Normal S2, Rate Normal, Regular Rhythm Abdomen Exam: Positive: Normal bowel sounds, Other (superficial brusing), Soft Extremity Exam: Positive: Other (erythema of left distal leg) Neuro Exam: Positive: Normal Speech Psych Exam: Positive: Mental status NL Vital Signs/I&O Vital Signs Date Time Temp Pulse Resp B/P Pulse Ox O2 Delivery O2 Flow Rate FiO2 05/09/16 09:30 18 05/09/16 09:00 Nasal Cannula 2.0 05/09/16 08:49 86 139/64 05/09/16 06:00 99.1 94 I&O- Last 24 Hours up to 6 AM 05/09/16 06:00 Intake Total 390 ml Output Total 2000 ml Balance -1610 ml Laboratory Data Labs 24H Laboratory Tests 2 05/08/16 14:11: Bedside Glucose (Misc Panel) 128H 05/08/16 16:59: Bedside Glucose (Misc Panel) 158H 05/08/16 20:12: Bedside Glucose (Misc Panel) 117H 05/09/16 06:27: Anion Gap 11, Anisocytosis 1+, Atypical Lymphocytes 4, White Blood Count 7.1, Red Blood Count 3.80L, Hemoglobin 11.9L, Hematocrit 40.2L, Mean Corpuscular Volume 105.7H, Mean Corpuscular Hemoglobin 31.4, Mean Corpuscular Hemoglobin Concent 29.7L, Red Cell Distribution Width 15.5H, Platelet Count 342, Neutrophils (%) (Auto) , Lymphocytes (%) (Auto) , Monocytes (%) (Auto) , Eosinophils (%) (Auto) , Basophils (%) (Auto) , Neutrophils # (Auto) , Lymphocytes # (Auto) , Monocytes # (Auto) , Eosinophils # (Auto) , Basophils # ( Auto) , Basophils (Manual) 1, Blood Urea Nitrogen 23#H, Creatinine 5.02H, Sodium Level 138, Potassium Level 4.7, Chloride Level 97L, Carbon Dioxide Level 30, Calcium Level 8.7L, Eosinophils (Manual) 12H, Glomerular Filtration Rate 11.9L, Hypochromasia 2+, Large Unclassified Cells # , Large Unclassified Cells % , Lymphocytes (Manual) 8L, Macrocytosis 2+, Magnesium Level 2.1, Metamyelocytes 3H, Monocytes (Manual) 16H, Myelocytes 1H, Neutrophils 55, Platelet Estimate NORMAL CBC/BMP Laboratory Tests 05/08/16 13:13 05/09/16 06:27 Calcium Level 8.7 L, Red Blood Count 3.80 L, Mean Corpuscular Volume 105.7 H, Mean Corpuscular Hemoglobin 31.4, Mean Corpuscular Hemoglobin Concent 29.7 L, Red Cell Distribution Width 15.5 H, Neutrophils (%) (Auto) , Lymphocytes (%) ( Auto) , Monocytes (%) (Auto) , Eosinophils (%) (Auto) , Basophils (%) (Auto) , Neutrophils # (Auto) , Lymphocytes # (Auto) , Monocytes # (Auto) , Eosinophils # (Auto) , Basophils # (Auto) FSBS Laboratory Tests Test 05/08/16 14:11 05/08/16 16:59 05/08/16 20:12 Range/Units Bedside Glucose (Misc Panel) 128 158 117 83-110 MG/DL KIMMY FIGUEREDO MD May 09, 2016 11:36
[2016-05-09 22:00] VITALS: BP 139/63
[2016-05-10] MEDS: IPRATROPIUM 0.5MG/ALBUTEROL 2.5MG INH SOL UD 3ML (DUONEB)(J7620) NEB SCH ×4 (01:23→19:51)
[2016-05-10 05:33] LABS: BASO # 0.1 K/mm3 (0.0-0.2); BASO % 0.8 % (0.0-1.0); EOS # 0.7 K/mm3 (0.0-0.50); EOS % 8.9 % (0.0-3.0); LARGE UNSTAINED CELL # 0.5 K/mm3 (0.0-0.4); LARGE UNSTAINED CELL % 6.3 % (0.0-4.0); LYMPH # 1.5 K/mm3 (1.5-4.5); LYMPH % 19.6 % (24.0-44.0); MEAN CORPUSCULAR HEMOGLOBIN 31.4 pg (27.0-33.0); MEAN CORPUSCULAR HGB CONC 29.6 g/dl (32.0-36.5); MEAN CORPUSCULAR VOLUME 105.9 fl (80.0-96.0); MONO # 0.8 K/mm3 (0.0-0.8); MONO % 10.6 % (0.0-5.0); NEUTROPHILS % 53.7 % (36.0-66.0); PLATELET COUNT, AUTOMATED 342 k/mm3 (150-450); RED CELL DISTRIBUTION WIDTH 15.3 % (11.5-14.5); WHITE BLOOD COUNT 7.5 K/mm3 (4.0-10.0)
[2016-05-10 05:45] LABS: CALCIUM LEVEL 8.9 MG/DL (8.8-10.2); CREATININE FOR GFR 6.96 MG/DL (0.70-1.30); GLOMERULAR FILTRATION RATE 8.2 (>35); MAGNESIUM LEVEL 2.3 MG/DL (1.8-2.4); POTASSIUM SERUM 4.1 MEQ/L (3.5-5.1)
[2016-05-10 06:00] VITALS: BP 117/99
[2016-05-10] MEDS: ASPIRIN 81 MG ENTERIC TAB PO SCH (06:23)
[2016-05-10] MEDS: CLOPIDOGREL 75 MG TAB PO SCH (06:23)
[2016-05-10] MEDS: MIRALAX *UNIT DOSE* 17GM PACKET PO PRN (06:23)
[2016-05-10] MEDS: guaiFENesin ER 600 MG TAB PO SCH ×2 (06:23→21:11)
[2016-05-10] MEDS: ATORVASTATIN 20 MG TAB PO SCH (06:25)
[2016-05-10] MEDS: MULTIVITAMINS/MINERALS THERAP 1 TAB PO SCH (06:25)
[2016-05-10] MEDS: PANTOPRAZOLE 40MG TAB (PROTONIX) PO SCH ×2 (06:25→21:11)
[2016-05-10] MEDS: GABAPENTIN 100 MG CAP PO SCH ×2 (06:25→21:11)
[2016-05-10] MEDS: HumaLOG INSULIN (NovoLOG) PER UNIT SC SCH ×4 (06:26→20:59)
[2016-05-10] MEDS: FEBUXOSTAT 40 MG TABLET (ULORIC) PO SCH (06:27)
[2016-05-10] MEDS: NORCO, ANEXSIA 5/325MG TABLET (HYDROcodone/ACETAMINOPHEN) PO PRN ×2 (07:43→18:35)
[2016-05-10 07:54] VITALS: O2SAT 95
[2016-05-10] MEDS ORDERED: HEPARIN 1,000 UNITS/ML 10ML VIAL (FOR RADIOLOGY& DIALYSIS ONLY) XX ONE (09:00)
[2016-05-10] MEDS: METOPROLOL TART 25 MG TABLET PO SCH ×2 (09:12→21:11)
[2016-05-10 10:30] VITALS: BP 139/65
--- NOTE | 2016-05-10 11:39 | IPNPDOC ---
Date/Time Seen The patient was seen on 05/10/16 at 11:28. Progress Note DATE OF ENCOUNTER: 05/10/2016 SUBJECTIVE: Mr. Rodriguez was seen this morning at bedside. He is due for dialysis today. He reports that he feels better. No nausea, vomiting or abdominal pain. He does report that he didn't eat much this morning because his tremors cause his food to fly off of the spoon. He has chronic tremor and states that at home he usually gets assistance from the nurse to feed him. He also reports that he has a neighbor who sometimes helps feed him. He denies headache, dizziness, chest pain, shortness of breath and diarrhea. No fever or chills. OBJECTIVE: Vital Signs Date Time Temp Pulse Resp B/P Pulse Ox O2 Delivery O2 Flow Rate FiO2 05/10/16 09:12 80 116/55 05/10/16 08:13 18 Nasal Cannula 2.0 05/10/16 07:54 95 05/10/16 06:00 96.8 I&O- Last 24 Hours up to 6 AM 05/10/16 06:00 Intake Total 240 ml Output Total 0 ml Balance 240 ml GENERAL: Patient is alert and oriented, laying in bed comfortably, in no acute distress. HEENT: Normocephalic, atraumatic. Extraocular muscles are intact. Moist mucosa. NECK: Supple. Jugular venous pulsations are not elevated. HEART: Regular rate and rhythm. No murmur appreciated. LUNGS: Good air movement bilaterally. No rhonchi or wheezing appreciated. ABDOMEN: Soft, nontender, nondistended. Bowel sounds are present. No rebound, guarding or rigidity. EXTREMITIES: No cyanosis or significant lower extremity edema. 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 SKIN: Warm and dry. No rashes noted. NEUROLOGIC: No focal deficits. Moving all extremities. LABORATORY DATA: 05/10/16 05:18 ASSESSMENT/PLAN Mr. Rodriguez is an 80-year-old male with past medical history significant for end- stage renal disease on hemodialysis every Thursday, , Thursday, coronary artery disease, hypertension, diabetes, gangrene of bilateral lower extremity toes after recent cardiac catheterization, COPD who was recently discharged from the hospital and now has been readmitted after a fall. 1. End-stage renal disease on hemodialysis Tuesdays, and Saturdays. He will be dialyzed today with a goal of removing about 1.5-2 liters. Electrolytes and hemoglobin are stable. Continue with 1500ml fluid restriction. 2. Tremor. Patient is not able to eat because of his tremors. We will initiate primidone 25 mg at bedtime and see how this helps. This can be titrated up as needed. 3. Dysphagia. He had a swallow evaluation which showed aspiration with thin liquids. His diet has been changed to mechanical soft with thickened liquids, being managed by primary team. 4. Recurrent abdominal pain. Patient has history of mesenteric ischemia when he becomes hypotensive. 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 He underwent angioplasty on 04/30 where he had right external iliac artery and celiac artery stenting performed. Dialysis time has been reduced to 3-1/2 hours to avoid these episodes. 5. Chronic systolic congestive heart failure. Volume status will continue to be corrected with hemodialysis. Appears compensated at this time. 6. Hypertension. Blood pressure stable. He is on metoprolol 25mg twice daily. 7. Anemia in end-stage renal disease. Hemoglobin is at goal. No intervention needed at this time. 8. Chronic gout. He remains on Uloric daily. 9. Coronary artery disease and peripheral vascular disease. Patient does not have any cardiac symptoms. He was previously evaluated for peripheral vascular disease and no intervention was deemed necessary. Continue with current medications of aspirin, Plavix, beta sacha and statin. 10. Deconditioning. Encouraged increased physical activity and continue working with physical/occupational therapy. GME ATTESTATION GME ATTESTATION My preceptor for this patient encounter was physically present in the building during the encounter and was fully available. As needed, all aspects of the patient interview, examination, medical decision making process, and medical care plan development were reviewed and approved by the preceptor. Preceptor is aware and concurs with the plan as stated in the body of this note and will attest to such by his/her cosignature. ADIN OATES DO May 10, 2016 11:39
[2016-05-10] MEDS: ONDANSETRON 4 MG ORAL DISINTEGRATING TAB (S0181) PO PRN (18:34)
[2016-05-10 19:52] VITALS: O2SAT 92
[2016-05-10] MEDS: PRIMIDONE 25MG PER 1/2 TABLET PO SCH (21:10)
[2016-05-10 22:00] VITALS: BP 149/57
[2016-05-11] MEDS: IPRATROPIUM 0.5MG/ALBUTEROL 2.5MG INH SOL UD 3ML (DUONEB)(J7620) NEB SCH ×4 (02:35→19:21)
[2016-05-11 06:00] VITALS: BP 146/67
[2016-05-11] MEDS: NORCO, ANEXSIA 5/325MG TABLET (HYDROcodone/ACETAMINOPHEN) PO PRN ×2 (06:02→16:24)
[2016-05-11] MEDS: PANTOPRAZOLE 40MG TAB (PROTONIX) PO SCH ×2 (08:12→21:36)
[2016-05-11] MEDS: GABAPENTIN 100 MG CAP PO SCH ×2 (08:12→21:34)
[2016-05-11] MEDS: ASPIRIN 81 MG ENTERIC TAB PO SCH (08:12)
[2016-05-11] MEDS: ATORVASTATIN 20 MG TAB PO SCH (08:12)
[2016-05-11] MEDS: guaiFENesin ER 600 MG TAB PO SCH ×2 (08:12→21:34)
[2016-05-11] MEDS: MULTIVITAMINS/MINERALS THERAP 1 TAB PO SCH (08:12)
[2016-05-11] MEDS: CLOPIDOGREL 75 MG TAB PO SCH (08:12)
[2016-05-11] MEDS: METOPROLOL TART 25 MG TABLET PO SCH ×2 (08:12→21:35)
[2016-05-11] MEDS: FEBUXOSTAT 40 MG TABLET (ULORIC) PO SCH (08:12)
[2016-05-11] MEDS: HumaLOG INSULIN (NovoLOG) PER UNIT SC SCH ×4 (08:13→21:00)
[2016-05-11 14:00] VITALS: BP 117/56
[2016-05-11 19:21] VITALS: O2SAT 97
[2016-05-11] MEDS: PRIMIDONE 25MG PER 1/2 TABLET PO SCH (21:34)
[2016-05-12] MEDS: IPRATROPIUM 0.5MG/ALBUTEROL 2.5MG INH SOL UD 3ML (DUONEB)(J7620) NEB SCH ×4 (02:47→19:30)
[2016-05-12 06:00] VITALS: BP 140/78
[2016-05-12] MEDS: HumaLOG INSULIN (NovoLOG) PER UNIT SC SCH ×4 (08:05→21:00)
[2016-05-12] MEDS: ATORVASTATIN 20 MG TAB PO SCH (08:06)
[2016-05-12] MEDS: FEBUXOSTAT 40 MG TABLET (ULORIC) PO SCH (08:06)
[2016-05-12] MEDS: CLOPIDOGREL 75 MG TAB PO SCH (08:06)
[2016-05-12] MEDS: GABAPENTIN 100 MG CAP PO SCH ×2 (08:06→20:31)
[2016-05-12] MEDS: ASPIRIN 81 MG ENTERIC TAB PO SCH (08:06)
[2016-05-12] MEDS: MULTIVITAMINS/MINERALS THERAP 1 TAB PO SCH (08:06)
[2016-05-12] MEDS: PANTOPRAZOLE 40MG TAB (PROTONIX) PO SCH ×2 (08:06→21:16)
[2016-05-12] MEDS: guaiFENesin ER 600 MG TAB PO SCH ×2 (08:06→20:31)
[2016-05-12] MEDS: METOPROLOL TART 25 MG TABLET PO SCH ×2 (08:09→20:31)
[2016-05-12 10:16] LABS: MEAN CORPUSCULAR HEMOGLOBIN 31.4 pg (27.0-33.0); MEAN CORPUSCULAR HGB CONC 29.6 g/dl (32.0-36.5); MEAN CORPUSCULAR VOLUME 106.1 fl (80.0-96.0); RED CELL DISTRIBUTION WIDTH 16.5 % (11.5-14.5); WHITE BLOOD COUNT 9.3 K/mm3 (4.0-10.0)
[2016-05-12 10:34] LABS: CALCIUM LEVEL 8.7 MG/DL (8.8-10.2); CREATININE FOR GFR 7.02 MG/DL (0.70-1.30); GLOMERULAR FILTRATION RATE 8.1 (>35); POTASSIUM SERUM 5.1 MEQ/L (3.5-5.1)
[2016-05-12] MEDS: NORCO, ANEXSIA 5/325MG TABLET (HYDROcodone/ACETAMINOPHEN) PO PRN ×2 (10:35→20:32)
--- NOTE | 2016-05-12 11:03 | IPNPDOC ---
Date/Time Seen The patient was seen on 05/12/16 at 10:52. Progress Note DATE OF ENCOUNTER: 05/12/2016 SUBJECTIVE: Mr. Rodriguez was seen this morning at bedside. He was sitting up in the chair working with physical therapy. He reported that he was little dizzy from his therapy session. Otherwise, he reports feeling okay. He has increased erythema of the left lower extremity. No nausea, vomiting or abdominal pain. No chest pain, shortness of breath. No fever or chills. OBJECTIVE: Vital Signs Date Time Temp Pulse Resp B/P Pulse Ox O2 Delivery O2 Flow Rate FiO2 05/12/16 10:35 16 Nasal Cannula 2.0 05/12/16 08:09 93 155/72 05/12/16 06:00 96.8 99 I&O- Last 24 Hours up to 6 AM 05/12/16 06:00 Intake Total 720 ml Output Total 0 ml Balance 720 ml GENERAL: Patient is alert and oriented, sitting in chair comfortably, in no acute distress. HEENT: Normocephalic, atraumatic. Extraocular muscles are intact. Moist mucosa. NECK: Supple. Jugular venous pulsations are not elevated. HEART: Regular rate and rhythm. No murmur appreciated. LUNGS: Diminished breath sounds bilaterally. No rhonchi or wheezing appreciated. ABDOMEN: Soft, nontender, nondistended. Bowel sounds are present. No rebound, guarding or rigidity. EXTREMITIES: No significant lower extremity edema. His left lower extremity has vascular changes with increased erythema up the lateral leg. Medial thigh also has erythema. 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 SKIN: Warm and dry. Good skin turgor. NEUROLOGIC: No focal deficits. Moving all extremities. LABORATORY DATA: 05/12/16 10:04 ASSESSMENT/PLAN Mr. Rodriguez is an 80-year-old male with past medical history significant for end- stage renal disease on hemodialysis every Thursday, , Thursday, coronary artery disease, hypertension, diabetes, gangrene of bilateral lower extremity toes after recent cardiac catheterization, COPD who was recently discharged from the hospital and now has been readmitted after a fall. 1. End-stage renal disease on hemodialysis Tuesdays, and Saturdays. Next hemodialysis session will be tomorrow 05/13. Electrolytes and hemoglobin are stable. Continue with 1500ml fluid restriction. 2. Increased erythema of lower extremity. He also has some small scabs like he has been picking at his lateral leg. He is being initiated on Keflex. 3. Tremor. Patient is on primidone 25 mg at bedtime. This can be titrated up as needed. 4. Recurrent abdominal pain. Patient has history of mesenteric ischemia when he becomes hypotensive. 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 He underwent angioplasty on 04/30 where he had right external iliac artery and celiac artery stenting performed. Dialysis time has been reduced to 3-1/2 hours to avoid these episodes. 5. Chronic systolic congestive heart failure. Volume status will continue to be corrected with hemodialysis. Appears compensated at this time. 6. Hypertension. Blood pressure stable. He is on metoprolol 25mg twice daily. 7. Anemia in end-stage renal disease. Hemoglobin is at goal. No intervention needed at this time. 8. Chronic gout. He remains on Uloric daily. 9. Deconditioning. Encouraged increased physical activity and continue working with physical/occupational therapy. GME ATTESTATION GME ATTESTATION My preceptor for this patient encounter was physically present in the building during the encounter and was fully available. As needed, all aspects of the patient interview, examination, medical decision making process, and medical care plan development were reviewed and approved by the preceptor. Preceptor is aware and concurs with the plan as stated in the body of this note and will attest to such by his/her cosignature. ADIN OATES DO May 12, 2016 11:03
[2016-05-12] MEDS: CEPHALEXIN 500 MG CAP PO SCH ×2 (13:44→21:16)
[2016-05-12] MEDS: PRIMIDONE 25MG PER 1/2 TABLET PO SCH (21:16)
[2016-05-12 22:00] VITALS: BP 133/66
[2016-05-13] MEDS: IPRATROPIUM 0.5MG/ALBUTEROL 2.5MG INH SOL UD 3ML (DUONEB)(J7620) NEB SCH ×4 (02:00→19:50)
[2016-05-13 06:00] VITALS: BP 136/63
[2016-05-13] MEDS: MULTIVITAMINS/MINERALS THERAP 1 TAB PO SCH (06:14)
[2016-05-13] MEDS: MIRALAX *UNIT DOSE* 17GM PACKET PO PRN (06:14)
[2016-05-13] MEDS: FEBUXOSTAT 40 MG TABLET (ULORIC) PO SCH (06:14)
[2016-05-13] MEDS: ASPIRIN 81 MG ENTERIC TAB PO SCH (06:15)
[2016-05-13] MEDS: guaiFENesin ER 600 MG TAB PO SCH ×2 (06:15→21:30)
[2016-05-13] MEDS: CLOPIDOGREL 75 MG TAB PO SCH (06:15)
[2016-05-13] MEDS: ATORVASTATIN 20 MG TAB PO SCH (06:15)
[2016-05-13] MEDS: CEPHALEXIN 500 MG CAP PO SCH ×3 (06:15→21:30)
[2016-05-13] MEDS: GABAPENTIN 100 MG CAP PO SCH ×2 (06:15→21:31)
[2016-05-13] MEDS: METOPROLOL TART 25 MG TABLET PO SCH ×2 (06:16→21:29)
[2016-05-13] MEDS: PANTOPRAZOLE 40MG TAB (PROTONIX) PO SCH ×2 (06:16→21:30)
[2016-05-13] MEDS: HumaLOG INSULIN (NovoLOG) PER UNIT SC SCH ×4 (07:45→21:00)
[2016-05-13] MEDS ORDERED: LIDOCAINE 1% SDV 5 ML VIAL SQ ONE (12:45)
[2016-05-13] MEDS ORDERED: HEPARIN 1,000 UNITS/ML 10ML VIAL (FOR RADIOLOGY& DIALYSIS ONLY) IV ONE (12:45)
[2016-05-13 14:00] VITALS: BP 101/62
[2016-05-13 14:15] VITALS: BP 90/52
[2016-05-13 16:26] VITALS: BP 107/51
[2016-05-13] MEDS: NORCO, ANEXSIA 5/325MG TABLET (HYDROcodone/ACETAMINOPHEN) PO PRN (19:43)
--- NOTE | 2016-05-13 21:07 | IPNPDOC ---
Date/Time Seen The patient was seen on 05/13/16 at 20:59. Progress Note DATE OF ENCOUNTER: 05/13/2016 SUBJECTIVE: Mr. Rodriguez was seen this morning during hemodialysis. No overnight issues and no acute complaints. Breathing is stable. No chest pain, increased shortness of breath, nausea, vomiting, abdominal pain or diarrhea. No fever or chills. No increased leg pain. Still has erythema in left lower extremity. OBJECTIVE: Vital Signs Date Time Temp Pulse Resp B/P Pulse Ox O2 Delivery O2 Flow Rate FiO2 05/13/16 19:51 Nasal Cannula 2.0 05/13/16 19:43 18 05/13/16 16:26 94 107/51 93 05/13/16 14:15 98.5 I&O- Last 24 Hours up to 6 AM 05/13/16 06:00 Intake Total 360 ml Output Total 0 ml Balance 360 ml GENERAL: Patient is alert and oriented, in no acute distress. HEENT: Normocephalic, atraumatic. Extraocular muscles are intact. Moist mucosa. NECK: Supple. Jugular venous pulsations are not elevated. HEART: Regular rate and rhythm. No murmur appreciated. LUNGS: Diminished breath sounds bilaterally. No rhonchi or wheezing appreciated. ABDOMEN: Soft, nontender, nondistended. Bowel sounds are present. No rebound, guarding or rigidity. EXTREMITIES: No significant lower extremity edema. His left lower extremity has vascular changes with increased erythema up the lateral leg. Medial thigh also has erythema. 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 SKIN: Warm and dry. Good skin turgor. NEUROLOGIC: No focal deficits. Moving all extremities. LABORATORY DATA: 05/12/16 10:04 ASSESSMENT/PLAN Mr. Rodriguez is an 80-year-old male with past medical history significant for end- stage renal disease on hemodialysis every Thursday, , Thursday, coronary artery disease, hypertension, diabetes, gangrene of bilateral lower extremity toes after recent cardiac catheterization, COPD who was recently discharged from the hospital and now has been readmitted after a fall. 1. End-stage renal disease on hemodialysis Tuesdays, and Saturdays. He is being dialyzed, goal is to remove 1.5-2 liters. Electrolytes and hemoglobin are stable. Continue with 1500ml fluid restriction. 2. Increased erythema of lower extremity. Afebrile and white count normal. He is on Keflex. 3. Tremor. Patient is on primidone 25 mg at bedtime. This can be titrated up as needed. 4. Recurrent abdominal pain. Patient has history of mesenteric ischemia when he becomes hypotensive. 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 He underwent angioplasty on 04/30 where he had right external iliac artery and celiac artery stenting performed. Dialysis time has been reduced to 3-1/2 hours to avoid these episodes. 5. Chronic systolic congestive heart failure. Volume status will continue to be corrected with hemodialysis. Appears compensated at this time. 6. Hypertension. Blood pressure stable. He is on metoprolol 25mg twice daily. 7. Anemia in end-stage renal disease. Hemoglobin is at goal. No intervention needed at this time. 8. Chronic gout. He remains on Uloric daily. 9. Deconditioning. Encouraged increased physical activity and continue working with physical/occupational therapy. GME ATTESTATION GME ATTESTATION My preceptor for this patient encounter was physically present in the building during the encounter and was fully available. As needed, all aspects of the patient interview, examination, medical decision making process, and medical care plan development were reviewed and approved by the preceptor. Preceptor is aware and concurs with the plan as stated in the body of this note and will attest to such by his/her cosignature. ADIN OATES DO May 13, 2016 21:07
[2016-05-13] MEDS: PRIMIDONE 25MG PER 1/2 TABLET PO SCH (21:30)
[2016-05-14] VITALS (7 sets, daily range): BP systolic 123–178; BP diastolic 53–79
[2016-05-14] MEDS: IPRATROPIUM 0.5MG/ALBUTEROL 2.5MG INH SOL UD 3ML (DUONEB)(J7620) NEB SCH ×4 (01:50→19:55)
[2016-05-14] MEDS: CEPHALEXIN 500 MG CAP PO SCH ×3 (05:10→21:21)
[2016-05-14] MEDS: ASPIRIN 81 MG ENTERIC TAB PO SCH (08:26)
[2016-05-14] MEDS: CLOPIDOGREL 75 MG TAB PO SCH (08:26)
[2016-05-14] MEDS: GABAPENTIN 100 MG CAP PO SCH ×2 (08:26→21:21)
[2016-05-14] MEDS: MULTIVITAMINS/MINERALS THERAP 1 TAB PO SCH (08:26)
[2016-05-14] MEDS: ATORVASTATIN 20 MG TAB PO SCH (08:26)
[2016-05-14] MEDS: guaiFENesin ER 600 MG TAB PO SCH ×2 (08:26→21:20)
[2016-05-14] MEDS: HumaLOG INSULIN (NovoLOG) PER UNIT SC SCH ×4 (08:26→21:00)
[2016-05-14] MEDS: PANTOPRAZOLE 40MG TAB (PROTONIX) PO SCH ×2 (08:26→21:19)
[2016-05-14] MEDS: METOPROLOL TART 25 MG TABLET PO SCH ×2 (08:27→21:20)
[2016-05-14] MEDS: FEBUXOSTAT 40 MG TABLET (ULORIC) PO SCH (08:30)
[2016-05-14] MEDS: NORCO, ANEXSIA 5/325MG TABLET (HYDROcodone/ACETAMINOPHEN) PO PRN ×2 (11:30→21:20)
--- NOTE | 2016-05-14 12:25 | IPNPDOC ---
Date/Time Seen The patient was seen on 05/14/16 at 12:16. Progress Note DATE OF ENCOUNTER: 05/14/2016 SUBJECTIVE: Mr. Rodriguez was seen this morning at bedside. He had hemodialysis yesterday where 1500ml was removed. He reported feeling a little run down afterwards, but no lightheadedness or dizziness. His blood pressure was a little soft after dialysis, but it remained stable. He did not experience any abdominal pain during HD. He denies any chest pain, increased shortness of breath, nausea, vomiting, abdominal pain or diarrhea. No fever or chills. His left upper extremity is more swollen, but he denies pain. OBJECTIVE: Vital Signs Date Time Temp Pulse Resp B/P Pulse Ox O2 Delivery O2 Flow Rate FiO2 05/14/16 11:30 18 Nasal Cannula 2.0 05/14/16 08:27 76 05/14/16 06:00 97.1 123/53 97 I&O- Last 24 Hours up to 6 AM 05/14/16 06:00 Intake Total 1080 ml Output Total 1500 ml Balance -420 ml GENERAL: Patient is alert and oriented, in no acute distress. HEENT: Normocephalic, atraumatic. Extraocular muscles are intact. Moist mucosa. NECK: Supple. Jugular venous pulsations are not elevated. HEART: Regular rate and rhythm. No murmur appreciated. LUNGS: Diminished breath sounds bilaterally. No rhonchi or wheezing appreciated. ABDOMEN: Soft, nontender, nondistended. Bowel sounds are present. No rebound, guarding or rigidity. EXTREMITIES: No significant lower extremity edema. His left upper extremity is swollen. His left lower extremity has vascular changes with increased erythema up the lateral leg. He has chronic dry gangrene of his toes. SKIN: Warm and dry. Good skin turgor. NEUROLOGIC: No focal deficits. Moving all extremities. LABORATORY DATA: No new labs, he will have labs drawn tomorrow. ASSESSMENT/PLAN Mr. Rodriguez is an 80-year-old male with past medical history significant for end- stage renal disease on hemodialysis every Thursday, , Thursday, coronary artery disease, hypertension, diabetes, gangrene of bilateral lower extremity toes after recent cardiac catheterization, COPD who was recently discharged from the hospital and now has been readmitted after a fall. 1. End-stage renal disease on hemodialysis Tuesdays, and Saturdays. We will continue with his normal schedule, next dialysis will be tomorrow 2/2. Continue with 1500ml fluid restriction. 2. Left upper extremity swelling. He denies any pain. No erythema present. Patient has his IV fistula in the left arm. Interventional radiology has been consulted for left upper extremity fistulogram and angioplasty. 3. Increased erythema of lower extremity, possible cellulitis. He remains on Keflex. 4. Tremor. Patient is on primidone 25 mg at bedtime. This can be titrated up as needed. 5. Recurrent abdominal pain. Patient has history of mesenteric ischemia when he becomes hypotensive. 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 He underwent angioplasty on 04/30 where he had right external iliac artery and celiac artery stenting performed. Dialysis time has been reduced to 3-1/2 hours to avoid these episodes. He has been tolerating dialysis well thus far. 6. Chronic systolic congestive heart failure. Volume status will continue to be corrected with hemodialysis. Appears stable at this time. 7. Hypertension. Blood pressure stable. He is on metoprolol 25mg twice daily. 8. Anemia in end-stage renal disease. Hemoglobin has been stable. No intervention needed at this time. 9. Chronic gout. He remains on Uloric daily. 10. Deconditioning. Encouraged increased physical activity and continue working with physical/occupational therapy. GME ATTESTATION GME ATTESTATION My preceptor for this patient encounter was physically present in the building during the encounter and was fully available. As needed, all aspects of the patient interview, examination, medical decision making process, and medical care plan development were reviewed and approved by the preceptor. Preceptor is aware and concurs with the plan as stated in the body of this note and will attest to such by his/her cosignature. ADIN OATES DO May 14, 2016 12:24
[2016-05-14] MEDS ORDERED: LIDOCAINE 2% MDV 20 ML VIAL As Ordered ONE (14:26)
[2016-05-14] MEDS ORDERED: SODIUM BICARBONATE 8.4% INJ 50MEQ 50 ML VIAL As Ordered ONE (14:26)
[2016-05-14] MEDS ORDERED: ISOVUE-300 61% 50ML VIAL (Q9967) As Ordered ONE ×3 (14:27→15:37)
[2016-05-14] MEDS ORDERED: HEPARIN SOD (PORCINE) 5000 UNITS/ML VIAL As Ordered ONE (15:29)
[2016-05-14] MEDS ORDERED: HEPARIN 1,000 UNITS/ML 10ML VIAL (FOR RADIOLOGY& DIALYSIS ONLY) As Ordered ONE (15:34)
[2016-05-14] MEDS ORDERED: HEPARIN SOD (PORCINE) 5000 UNITS/ML VIAL IV ONE (16:15)
--- NOTE | 2016-05-14 17:43 | REPKIM ---
CLINICAL HISTORY: Patient with end stage renal disease on hemodialysis via left upper arm AV graft presents with severe left arm swelling. PROCEDURES PERFORMED: 1. Hemodialysis Fistulagram 2. Venous anastomosis stenosis stent placement and angioplasty 3. Completion Venogram INTERVENTIONALIST: Katelyn Heredia MD CONSENT: The risks, benefits and alternatives to the procedure were explained to the patient and informed written consent was obtained. MEDICATIONS: Local Lidocaine and Heparin 3000 units IV EBL: 10 mL FLUORO TIME: 5.8 minutes CONTRAST: 34 mL Isovue 300 DEVICES USED: Fluency Plus Stent Graft 8mm x 6cm Lot#[id number], Barton 8mm x 4cm [employer] balloon Lot #[id number] PROCEDURE/FINDINGS: HEMODIALYSIS FISTULOGRAM: The patient was brought to the interventional radiology suite and placed in supine position. Time out procedure was performed. The patient was confirmed to have severe left arm swelling. The left upper arm was prepped and draped in a usual sterile fashion. The arterial limb of the left upper arm AV graft was accessed with a micropuncture needle after local anesthetic. Using this access a 5-Gibraltarian catheter was introduced with its tip directed towards the venous outflow. Contrast was injected and fistulogram and central venogram were performed. This showed near occlusive severe stenosis involving the venous anastomosis associated with multiple retrograde venous collaterals. The axillary vein, subclavian vein, left brachiocephalic vein and superior vena cava are patent with no significant stenosis. ANGIOPLASTY AND STENT PLACEMENT: A total of 3000 units of Heparin was intravenously administered. The venous anastomosis stenosis was traversed with a hydrophilic guidewire. The 5 Gibraltarian catheter was exchanged over the guidewire for a 9-Gibraltarian vascular sheath. Wire exchange was performed. The venous anastomosis severe stenosis was pre-dilated with angioplasty balloon. A 6-cm length, 8-mm diameter Fluency stent graft was then deployed across the venous anastomosis stenosis. The stent was brought to the desired profile using an 8-mm diameter angioplasty balloon. Post stent venogram showed excellent results with no significant residual stenosis or flow limiting intimal flap. The vascular sheath, catheter and guidewire were removed and hemostasis achieved by manual compression, Chitogen patch and purse string suture. The patient tolerated the procedure well with no immediate complications. This procedure was performed using fluoroscopy. IMPRESSION: 1. Patent left upper arm AV graft. 2. Severe near occlusive stenosis involving the venous anastomosis associated with multiple venous collaterals. 3. The severe venous anastomosis stenosis successfully treated with 8 mm in diameter Fluency stent graft as discussed above. 4. The central veins are continuous and patent with no significant stenosis. Excellent thrill was palpable. Dr. Heredia was present for this procedure as documented in the progress notes. cc: MD Disha Lieberman, DO [facility]
[2016-05-14] MEDS: PRIMIDONE 25MG PER 1/2 TABLET PO SCH (21:20)
[2016-05-15 02:00] VITALS: BP 144/68
[2016-05-15] MEDS: IPRATROPIUM 0.5MG/ALBUTEROL 2.5MG INH SOL UD 3ML (DUONEB)(J7620) NEB SCH ×4 (02:00→20:01)
[2016-05-15] MEDS: GABAPENTIN 100 MG CAP PO SCH ×2 (05:36→21:30)
[2016-05-15] MEDS: PANTOPRAZOLE 40MG TAB (PROTONIX) PO SCH ×2 (05:36→21:30)
[2016-05-15] MEDS: MULTIVITAMINS/MINERALS THERAP 1 TAB PO SCH (05:36)
[2016-05-15] MEDS: CLOPIDOGREL 75 MG TAB PO SCH (05:36)
[2016-05-15] MEDS: CEPHALEXIN 500 MG CAP PO SCH ×3 (05:36→21:30)
[2016-05-15] MEDS: ASPIRIN 81 MG ENTERIC TAB PO SCH (05:36)
[2016-05-15] MEDS: METOPROLOL TART 25 MG TABLET PO SCH ×2 (05:36→21:30)
[2016-05-15] MEDS: FEBUXOSTAT 40 MG TABLET (ULORIC) PO SCH (05:36)
[2016-05-15] MEDS: ATORVASTATIN 20 MG TAB PO SCH (05:37)
[2016-05-15] MEDS: guaiFENesin ER 600 MG TAB PO SCH ×2 (05:37→21:30)
[2016-05-15 06:00] VITALS: BP 151/68
[2016-05-15] MEDS: HumaLOG INSULIN (NovoLOG) PER UNIT SC SCH ×4 (07:52→20:58)
[2016-05-15] MEDS: NORCO, ANEXSIA 5/325MG TABLET (HYDROcodone/ACETAMINOPHEN) PO PRN ×3 (10:43→23:12)
[2016-05-15 10:54] LABS: MEAN CORPUSCULAR HGB CONC 30.7 g/dl (32.0-36.5); MEAN CORPUSCULAR VOLUME 104.3 fl (80.0-96.0); WHITE BLOOD COUNT 8.4 K/mm3 (4.0-10.0)
[2016-05-15] MEDS ORDERED: HEPARIN 1,000 UNITS/ML 10ML VIAL (FOR RADIOLOGY& DIALYSIS ONLY) IV ONE (11:15)
[2016-05-15 11:24] LABS: CALCIUM LEVEL 8.4 MG/DL (8.8-10.2); CREATININE FOR GFR 7.2 MG/DL (0.70-1.30); GLOMERULAR FILTRATION RATE 7.8 (>35)
[2016-05-15 11:25] LABS: POTASSIUM SERUM 5.4 MEQ/L (3.5-5.1)
[2016-05-15] MEDS ORDERED: LIDOCAINE 1% SDV 5 ML VIAL SC ONE (12:00)
--- NOTE | 2016-05-15 17:03 | IPNPDOC ---
Date Seen The patient was seen on 05/15/16. Progress Note DATE OF ENCOUNTER: 05/15/2016 SUBJECTIVE: Mr. Rodriguez was seen this morning during hemodialysis. He reports feeling well. Left upper extremity swelling has improved, no pain. He denies any chest pain, increased shortness of breath, nausea, vomiting, abdominal pain or diarrhea. No fever or chills. No headache or dizziness. OBJECTIVE: Vital Signs Date Time Temp Pulse Resp B/P Pulse Ox O2 Delivery O2 Flow Rate FiO2 05/15/16 10:43 18 Nasal Cannula 2.0 05/15/16 06:00 97.6 77 151/68 100 I&O- Last 24 Hours up to 6 AM 05/15/16 06:00 Intake Total 530 ml Output Total 0 ml Balance 530 ml GENERAL: Patient is alert and oriented, in no acute distress. HEENT: Normocephalic, atraumatic. Extraocular muscles are intact. Moist mucosa. NECK: Supple. Jugular venous pulsations are not elevated. HEART: Regular rate and rhythm. No murmur appreciated. LUNGS: Diminished breath sounds bilaterally. No rhonchi or wheezing appreciated. ABDOMEN: Soft, nontender, nondistended. Bowel sounds are present. No rebound, guarding or rigidity. EXTREMITIES: No significant lower extremity edema. Swelling in left upper extremity is improved. His left lower extremity has vascular changes with improved erythema up the lateral leg. He has chronic dry gangrene of his toes, which are unchanged. SKIN: Warm and dry. Good skin turgor. NEUROLOGIC: No focal deficits. Moving all extremities. LABORATORY DATA: No new labs, he will have labs drawn tomorrow. 05/15/16 09:25 ASSESSMENT/PLAN Mr. Rodriguez is an 80-year-old male with past medical history significant for end- stage renal disease on hemodialysis every Thursday, , Thursday, coronary artery disease, hypertension, diabetes, gangrene of bilateral lower extremity toes after recent cardiac catheterization, COPD who was recently discharged from the hospital and now has been readmitted after a fall. 1. End-stage renal disease on hemodialysis Tuesdays, and Saturdays. He is being dialyzed today, goal of removing 1.5 liters. Volume status is stable. We will continue with his normal schedule. 2. Hyperkalemia. Potassium is 5.4. This should improve after dialysis. 3. Left upper extremity swelling. Patient has his fistula in that arm. He was taken to interventional radiology for fistulogram. He was found to have stenosis and angioplasty was done and a stent was placed. Swelling has already improved. 4. Increased erythema of lower extremity, possible cellulitis. He remains on Keflex, initiated on 05/12. 5. Recurrent abdominal pain. Patient has history of mesenteric ischemia when he becomes hypotensive. 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 He underwent angioplasty on 04/30 where he had right external iliac artery and celiac artery stenting performed. Dialysis time has been reduced to 3-1/2 hours to avoid these episodes. He has been tolerating dialysis well thus far. 6. Chronic systolic congestive heart failure. Volume status will continue to be corrected with hemodialysis. Appears stable at this time. 7. Hypertension. Blood pressure is stable. He is on metoprolol 25mg twice daily. 8. Anemia in end-stage renal disease. Hemoglobin has been stable. No intervention needed at this time. 9. Chronic gout. He remains on Uloric daily. 10. Deconditioning. Encouraged increased physical activity and continue working with physical/occupational therapy. GME ATTESTATION GME ATTESTATION My preceptor for this patient encounter was physically present in the building during the encounter and was fully available. As needed, all aspects of the patient interview, examination, medical decision making process, and medical care plan development were reviewed and approved by the preceptor. Preceptor is aware and concurs with the plan as stated in the body of this note and will attest to such by his/her cosignature. ATTENDING NOTE Nephrology: Pt seen and examined during HD today. tolerating the procedure well. Lt Upper arm AVF working well after angioplasty. Rest of plan as per resident's note. ADIN OATES DO May 15, 2016 17:03 NICOLA CHAPMAN MD May 15, 2016 22:10
[2016-05-15] MEDS: MIRALAX *UNIT DOSE* 17GM PACKET PO PRN (18:07)
[2016-05-15] MEDS: ONDANSETRON 4 MG ORAL DISINTEGRATING TAB (S0181) PO PRN (18:07)
[2016-05-15] MEDS: PRIMIDONE 25MG PER 1/2 TABLET PO SCH (21:30)
[2016-05-16] MEDS: IPRATROPIUM 0.5MG/ALBUTEROL 2.5MG INH SOL UD 3ML (DUONEB)(J7620) NEB SCH ×4 (02:00→19:58)
[2016-05-16] MEDS: CEPHALEXIN 500 MG CAP PO SCH ×3 (05:16→21:11)
[2016-05-16 06:00] VITALS: BP 122/58
[2016-05-16 06:24] LABS: ALBUMIN 2.7 GM/DL (3.2-5.2); CALCIUM LEVEL 8.3 MG/DL (8.8-10.2); CREATININE FOR GFR 4.87 MG/DL (0.70-1.30); GLOMERULAR FILTRATION RATE 12.3 (>35); PHOSPHORUS LEVEL 3.9 MG/DL (2.5-4.9); POTASSIUM SERUM 4.5 MEQ/L (3.5-5.1)
[2016-05-16] MEDS: HumaLOG INSULIN (NovoLOG) PER UNIT SC SCH ×4 (09:15→20:53)
[2016-05-16] MEDS: guaiFENesin ER 600 MG TAB PO SCH ×2 (09:15→21:10)
[2016-05-16] MEDS: GABAPENTIN 100 MG CAP PO SCH ×2 (09:16→21:10)
[2016-05-16] MEDS: PANTOPRAZOLE 40MG TAB (PROTONIX) PO SCH ×2 (09:16→21:10)
[2016-05-16] MEDS: MULTIVITAMINS/MINERALS THERAP 1 TAB PO SCH (09:16)
[2016-05-16] MEDS: CLOPIDOGREL 75 MG TAB PO SCH (09:16)
[2016-05-16] MEDS: ATORVASTATIN 20 MG TAB PO SCH (09:16)
[2016-05-16] MEDS: FEBUXOSTAT 40 MG TABLET (ULORIC) PO SCH (09:16)
[2016-05-16] MEDS: ASPIRIN 81 MG ENTERIC TAB PO SCH (09:16)
[2016-05-16] MEDS: METOPROLOL TART 25 MG TABLET PO SCH ×2 (09:16→21:11)
[2016-05-16] MEDS: MIRALAX *UNIT DOSE* 17GM PACKET PO PRN (10:01)
[2016-05-16] MEDS: NORCO, ANEXSIA 5/325MG TABLET (HYDROcodone/ACETAMINOPHEN) PO PRN ×2 (13:13→19:41)
[2016-05-16] MEDS: MOM 30ML SUSPENSION UDC PO SCH (14:36)
[2016-05-16] MEDS: PRIMIDONE 25MG PER 1/2 TABLET PO SCH (21:11)
[2016-05-17] MEDS: IPRATROPIUM 0.5MG/ALBUTEROL 2.5MG INH SOL UD 3ML (DUONEB)(J7620) NEB SCH ×4 (01:18→20:06)
[2016-05-17 06:00] VITALS: BP 143/64
[2016-05-17 06:02] LABS: MEAN CORPUSCULAR HEMOGLOBIN 31.6 pg (27.0-33.0); MEAN CORPUSCULAR HGB CONC 29.9 g/dl (32.0-36.5); MEAN CORPUSCULAR VOLUME 105.7 fl (80.0-96.0); WHITE BLOOD COUNT 9.9 K/mm3 (4.0-10.0)
[2016-05-17] MEDS: CEPHALEXIN 500 MG CAP PO SCH ×3 (06:13→21:25)
[2016-05-17] MEDS: GABAPENTIN 100 MG CAP PO SCH ×2 (06:13→21:25)
[2016-05-17] MEDS: ASPIRIN 81 MG ENTERIC TAB PO SCH (06:13)
[2016-05-17] MEDS: CLOPIDOGREL 75 MG TAB PO SCH (06:13)
[2016-05-17] MEDS: MOM 30ML SUSPENSION UDC PO SCH (06:13)
[2016-05-17] MEDS: ATORVASTATIN 20 MG TAB PO SCH (06:13)
[2016-05-17] MEDS: MULTIVITAMINS/MINERALS THERAP 1 TAB PO SCH (06:13)
[2016-05-17] MEDS: PANTOPRAZOLE 40MG TAB (PROTONIX) PO SCH ×2 (06:14→21:25)
[2016-05-17] MEDS: METOPROLOL TART 25 MG TABLET PO SCH ×2 (06:14→21:26)
[2016-05-17] MEDS: guaiFENesin ER 600 MG TAB PO SCH ×2 (06:14→21:26)
[2016-05-17] MEDS: MIRALAX *UNIT DOSE* 17GM PACKET PO PRN (06:14)
[2016-05-17] MEDS: FEBUXOSTAT 40 MG TABLET (ULORIC) PO SCH (06:15)
[2016-05-17 06:18] LABS: ALBUMIN 2.8 GM/DL (3.2-5.2); CALCIUM LEVEL 8.8 MG/DL (8.8-10.2); CREATININE FOR GFR 6.58 MG/DL (0.70-1.30); GLOMERULAR FILTRATION RATE 8.7 (>35)
[2016-05-17] MEDS: HumaLOG INSULIN (NovoLOG) PER UNIT SC SCH ×4 (08:15→21:00)
[2016-05-17] MEDS: NORCO, ANEXSIA 5/325MG TABLET (HYDROcodone/ACETAMINOPHEN) PO PRN ×2 (12:32→21:26)
[2016-05-17] MEDS ORDERED: LIDOCAINE 1% SDV 5 ML VIAL SC ONE (13:45)
[2016-05-17] MEDS ORDERED: HEPARIN 1,000 UNITS/ML 10ML VIAL (FOR RADIOLOGY& DIALYSIS ONLY) IV ONE (13:45)
--- NOTE | 2016-05-17 14:26 | IPNPDOC ---
Date Seen The patient was seen on 05/17/16. Progress Note DATE OF ENCOUNTER: 05/17/2016 SUBJECTIVE: Mr. Rodriguez was seen this afternoon during hemodialysis. He reports feeling well. He reports moving his bowels prior to HD. Appetite is good. No pain in his extremities. He denies any chest pain, increased shortness of breath , nausea, vomiting, abdominal pain or diarrhea. No fever or chills. No headache or dizziness. He is tolerating hemodialysis thus far. Blood pressure is stable. OBJECTIVE: Vital Signs Date Time Temp Pulse Resp B/P Pulse Ox O2 Delivery O2 Flow Rate FiO2 05/17/16 13:14 16 Nasal Cannula 2.0 05/17/16 06:14 89 143/64 05/17/16 06:00 97.4 90 I&O- Last 24 Hours up to 6 AM 05/17/16 06:00 Intake Total 700 ml Output Total 0 ml Balance 700 ml GENERAL: Patient is alert and oriented, in no acute distress. HEENT: Normocephalic, atraumatic. Extraocular muscles are intact. Dry mucosa. NECK: Supple. Jugular venous pulsations are not elevated. HEART: Regular rate and rhythm. No murmur appreciated. LUNGS: Diminished breath sounds bilaterally. No rhonchi or wheezing appreciated. ABDOMEN: Soft, nontender, nondistended. Bowel sounds are present. No rebound, guarding or rigidity. EXTREMITIES: No significant lower extremity edema. Swelling in left upper extremity is improved. His left lower extremity has vascular changes with erythema. He has chronic dry gangrene of his toes, which are unchanged. SKIN: Warm and dry. Good skin turgor. NEUROLOGIC: No focal deficits. Moving all extremities. LABORATORY DATA: 05/17/16 05:46 ASSESSMENT/PLAN: 1. End-stage renal disease on hemodialysis Tuesdays, and Saturdays. He is being dialyzed today, goal of removing 1.5 liters. Volume status is stable. We will continue with his normal schedule. 2. Left upper extremity swelling, now improved. This is the same arm where he has his fistula. He was taken to interventional radiology for fistulogram. He was found to have severe near occlusive stenosis involving the venous anastomosis associated with multiple venous collaterals and it was successfully treated with a stent on 05/14. 3. Increased erythema of left lower extremity, possible cellulitis. He remains on Keflex, initiated on 1/30. 4. History of mesenteric ischemia. 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 He underwent angioplasty on 04/30 where he had right external iliac artery and celiac artery stenting performed. He has been tolerating dialysis well thereafter. 5. Chronic systolic congestive heart failure. Volume status will continue to be corrected with hemodialysis. Appears stable at this time. 6. Hypertension. Blood pressure is stable. He is on metoprolol 25mg twice daily. 7. Anemia in end-stage renal disease. Hemoglobin has been stable. No intervention needed at this time. 8. Chronic gout. He remains on Uloric daily. 9. Deconditioning. He has been working with physical and occupational therapy and deemed safe for discharge with home services. GME ATTESTATION GME ATTESTATION My preceptor for this patient encounter was physically present in the building during the encounter and was fully available. As needed, all aspects of the patient interview, examination, medical decision making process, and medical care plan development were reviewed and approved by the preceptor. Preceptor is aware and concurs with the plan as stated in the body of this note and will attest to such by his/her cosignature. ADIN OATES DO May 17, 2016 14:26
[2016-05-17] MEDS: PRIMIDONE 25MG PER 1/2 TABLET PO SCH (21:25)
[2016-05-17 22:00] VITALS: BP 128/60
[2016-05-18] MEDS: IPRATROPIUM 0.5MG/ALBUTEROL 2.5MG INH SOL UD 3ML (DUONEB)(J7620) NEB SCH ×4 (02:32→19:47)
[2016-05-18] MEDS: CEPHALEXIN 500 MG CAP PO SCH (05:32)
[2016-05-18 06:00] VITALS: BP 127/59
[2016-05-18] MEDS: CLOPIDOGREL 75 MG TAB PO SCH (08:46)
[2016-05-18] MEDS: HumaLOG INSULIN (NovoLOG) PER UNIT SC SCH ×4 (08:46→20:41)
[2016-05-18] MEDS: METOPROLOL TART 25 MG TABLET PO SCH ×2 (08:46→21:55)
[2016-05-18] MEDS: GABAPENTIN 100 MG CAP PO SCH ×2 (08:46→21:55)
[2016-05-18] MEDS: ASPIRIN 81 MG ENTERIC TAB PO SCH (08:46)
[2016-05-18] MEDS: guaiFENesin ER 600 MG TAB PO SCH ×2 (08:46→21:55)
[2016-05-18] MEDS: ATORVASTATIN 20 MG TAB PO SCH (08:46)
[2016-05-18] MEDS: MOM 30ML SUSPENSION UDC PO SCH (08:46)
[2016-05-18] MEDS: MULTIVITAMINS/MINERALS THERAP 1 TAB PO SCH (08:46)
[2016-05-18] MEDS: PANTOPRAZOLE 40MG TAB (PROTONIX) PO SCH ×2 (08:46→21:55)
[2016-05-18] MEDS: FEBUXOSTAT 40 MG TABLET (ULORIC) PO SCH (08:52)
--- NOTE | 2016-05-18 12:46 | IPN ---
DATE: 05/18/2016 Mr. Rodriguez is seen this morning on his bedside. He is resting comfortably in his bed. He underwent hemodialysis yesterday, which he tolerated well. No nausea, vomiting, dyspnea or chest pain reported. Bilateral toe ischemic and gangrenous changes have been unchanged. PHYSICAL EXAMINATION: Temperature 96.9 degrees Fahrenheit, heart rate 80 per minute and respiratory rate 20 per minute. Blood pressure 122/60 mmHg and oxygen saturation 98% on 2 liters oxygen. Head is atraumatic. Ears, nose and throat are unremarkable. Pupils equal and reactive to light. Sclera is anicteric. Heart sounds regular and lungs with slightly diminished breath sounds at bases. Abdomen soft and nontender and without palpable organomegaly. Bowel sounds are normal. Extremities have no cyanosis or clubbing. Chronic gangrenous changes in his toes are unchanged. PROBLEMS: 1. End-stage renal disease. The patient was dialyzed yesterday and next dialysis will be scheduled for May 20. Volume status is well-compensated and electrolytes have been normal range. 2. Anemia. His anemia has been optimally corrected and no intervention is indicated at this point. 3. Generalized vascular disease. The patient has chronic issues and has had angioplasties done to his mesenteric arteries. He last week had angioplasty of his left arm AV fistula. Ischemic changes in his toes are unchanged and are related to cholesterol embolization. No intervention is indicated at this point. 4. Generalized deconditioning and weakness. This a chronic issue and the patient is likely to require subacute rehab. However, he has been refusing to go to [facility]. Discharge plans are being deferred to the hospitalist service.
[2016-05-18] MEDS: NORCO, ANEXSIA 5/325MG TABLET (HYDROcodone/ACETAMINOPHEN) PO PRN ×2 (16:10→22:05)
--- NOTE | 2016-05-18 20:38 | IPNPDOC ---
Assessment/Plan Date Seen The patient was seen on 05/18/16. Problems Problems: (1) Dysphagia Status: Chronic Problem Text: diet modified to honey thick liquids . (2) Pneumonia Status: Resolved Problem Text: s/p treatment; now off antibiotics (3) Erythema of lower limb Status: Chronic Problem Text: has history of cellulitis in this left soliz; per nursing, the erythema is no worse than it has been; appears to be some chronic venous stasis ; WBC WNL and patient is afebrile; continue to monitor (4) Hypertension Status: Chronic Problem Text: had some hypotension after dialysis on Thursday so decreased metoprolol to 25mg BID; adequately controlled (5) Generalized weakness Status: Acute Problem Text: due to recent hospitalization and severe muscle deconditioning; PT and OT following; might need rehab but patient does not want rehab (6) ESRD (end stage renal disease) Status: Chronic Problem Text: HD per nephro (7) Peripheral vascular disease Status: Chronic Problem Text: s/p right external iliac stent and celiac stent on 04/30/[address] Heredia; continue ASA and plavix, as well as statin (8) Gangrene Status: Chronic Problem Text: dry gangrene of the toes (9) COPD (chronic obstructive pulmonary disease) Status: Chronic Problem Text: continue home nebs (10) CAD (coronary artery disease) Status: Chronic Problem Text: status post stenting about 1 month ago; continue asa , plavix, betablocker, statin (11) Gout Status: Chronic Problem Text: continue home uloric (12) Diastolic CHF Status: Chronic Response to Treatment: Stable (13) Hyperlipidemia Status: Chronic Problem Text: continue home statin (14) Chronic respiratory failure with hypoxia Status: Chronic Problem Text: continue oxygen by nasal canula (15) Diabetes Status: Chronic Problem Text: continue SSI; continue neurontin for neuropathy Plan / VTE VTE Prophylaxis Ordered?: Yes (TEDs and SCDs) Subjective Review of Systems CC/HPI The patient is a 80-year-old male admitted with a reason for visit of Esrd; Generalized Weakness. General: Reports: ROS Unobtainable Objective Physical Examination General Exam: Positive: Alert, Cooperative, No Acute Distress Eye Exam: Positive: EOMI, Negative: Sclera icteric ENT Exam: Positive: Atraumatic, Mucous membr. moist/pink Neck Exam: Positive: Supple Chest Exam: Positive: Normal air movement, Wheezing Heart Exam: Positive: Normal S1, Normal S2, Rate Normal, Regular Rhythm Abdomen Exam: Positive: Normal bowel sounds, Other (superficial brusing), Soft Extremity Exam: Positive: Other (erythema of left distal leg) Neuro Exam: Positive: Normal Speech Psych Exam: Positive: Mental status NL Vital Signs/I&O Vital Signs Date Time Temp Pulse Resp B/P Pulse Ox O2 Delivery O2 Flow Rate FiO2 05/18/16 16:53 18 Nasal Cannula 2.0 05/18/16 08:46 94 123/59 05/18/16 06:00 96.9 98 I&O- Last 24 Hours up to 6 AM 05/18/16 06:00 Intake Total 170 ml Output Total 1500 ml Balance -1330 ml Laboratory Data Labs 24H Laboratory Tests 2 05/17/16 20:53: Bedside Glucose (Misc Panel) 213H 05/18/16 05:54: Bedside Glucose (Misc Panel) 119H 05/18/16 11:41: Bedside Glucose (Misc Panel) 156H 05/18/16 17:13: Bedside Glucose (Misc Panel) 178H FSBS Laboratory Tests Test 05/17/16 20:53 05/18/16 05:54 05/18/16 11:41 05/18/16 17:13 Range/Units Bedside Glucose (Misc Panel) 213 119 156 178 83-110 MG/DL RAAD CAPPS DO May 18, 2016 20:38
[2016-05-18 21:55] VITALS: BP 158/70
[2016-05-18] MEDS: PRIMIDONE 25MG PER 1/2 TABLET PO SCH (22:03)
[2016-05-19] MEDS: IPRATROPIUM 0.5MG/ALBUTEROL 2.5MG INH SOL UD 3ML (DUONEB)(J7620) NEB SCH ×3 (01:56→13:48)
[2016-05-19 06:00] VITALS: BP 163/70
[2016-05-19 07:58] LABS: MEAN CORPUSCULAR HEMOGLOBIN 31.3 pg (27.0-33.0); MEAN CORPUSCULAR HGB CONC 30.1 g/dl (32.0-36.5); MEAN CORPUSCULAR VOLUME 104.1 fl (80.0-96.0); RED CELL DISTRIBUTION WIDTH 15.4 % (11.5-14.5); WHITE BLOOD COUNT 9.5 K/mm3 (4.0-10.0)
[2016-05-19 08:23] LABS: CALCIUM LEVEL 9.1 MG/DL (8.8-10.2); CREATININE FOR GFR 6.76 MG/DL (0.70-1.30); GLOMERULAR FILTRATION RATE 8.4 (>35); POTASSIUM SERUM 4.4 MEQ/L (3.5-5.1)
[2016-05-19] MEDS: HumaLOG INSULIN (NovoLOG) PER UNIT SC SCH ×2 (08:52→12:37)
[2016-05-19] MEDS: ASPIRIN 81 MG ENTERIC TAB PO SCH (08:52)
[2016-05-19] MEDS: ATORVASTATIN 20 MG TAB PO SCH (08:52)
[2016-05-19] MEDS: PANTOPRAZOLE 40MG TAB (PROTONIX) PO SCH (08:52)
[2016-05-19] MEDS: guaiFENesin ER 600 MG TAB PO SCH (08:53)
[2016-05-19] MEDS: CLOPIDOGREL 75 MG TAB PO SCH (08:53)
[2016-05-19] MEDS: MOM 30ML SUSPENSION UDC PO SCH (08:53)
[2016-05-19] MEDS: MULTIVITAMINS/MINERALS THERAP 1 TAB PO SCH (08:53)
[2016-05-19] MEDS: FEBUXOSTAT 40 MG TABLET (ULORIC) PO SCH (08:53)
[2016-05-19] MEDS: GABAPENTIN 100 MG CAP PO SCH (08:53)
[2016-05-19] MEDS: METOPROLOL TART 25 MG TABLET PO SCH (08:53)
[2016-05-19] MEDS: NORCO, ANEXSIA 5/325MG TABLET (HYDROcodone/ACETAMINOPHEN) PO PRN (09:52)
--- NOTE | 2016-05-20 06:57 | DSES ---
DATE OF ADMISSION: 04/18/2016 DATE OF DISCHARGE: 05/19/2016 REASON FOR ADMISSION: Worsening generalized weakness. PRIMARY CARE PROVIDER: Dr. Bass CONSULTATION DURING ADMISSION: Dr. Bass REASON FOR CONSULTATION: Hemodialysis FINAL DIAGNOSES: 1. Acute dysphasia. 2. Pneumonia. 3. Erythema of the lower limb. 4. Hypertension. 5. Generalized weakness. 6. End-stage renal disease on hemodialysis. 7. Peripheral vascular disease status post external iliac stent and celiac stent. 8. Gangrene 9. Chronic obstructive pulmonary disease (COPD). 10. Coronary artery disease (CAD). 11. Gout. 12. Diastolic congestive heart failure. 13. Hyperlipidemia. 14. Chronic respiratory failure with hypoxia. 15. Diabetes. HISTORY OF PRESENT ILLNESS: Patient is an 80-year-old male with multiple comorbidities presented to the emergency room after dialysis due to worsening generalized weakness. Patient was recently hospitalized in March for 11 days for acute respiratory distress. He has been on antibiotics, antifungals for respiratory symptoms. He stated his respiratory symptoms showed improvement throughout the whole hospitalization. However, his physical activity has not returned to baseline due to generalized weakness. He stated his physical condition after discharge continued to deteriorate, became less and less active. He missed dialysis on , had dialysis on Thursday and afterwards he fell on the ground, was unable to get to the car. He was sent to the hospital for further evaluation. The patient was admitted. During the hospital course, patient was evaluated by physical therapy. Patient and family services (PFS) was involved. Initially, there was a discussion about [facility] placement, which the patient had adamantly refused, stating that he would like to go back home after he is cleared. Patient had a mild leukocytosis on admission, which resolved by the third day. Blood cultures were obtained. They were negative times five days. Flu screen was negative for influenza A and B. Patient started to developed dysphasia and he underwent a cookie swallow and they appreciated aspiration for some liquids. Patient was placed on a modified diet. During the hospitalization, also patient was noted to have low blood sugars. He is normally on Levemir 20 units twice a day. That was held and he was only started on sliding scale insulin, which he would be unable to continue at home. However, he only required anywhere from 2-4 units. Patient was also evaluated by Dr. Heredia for his peripheral vascular disease with dry gangrene involving the lower extremity. He was found to have diffuse arthrosclerotic disease and vascular calcification. He was also found to have abdominal aortic aneurysm measuring 4 cm. He had severe stenosis involving the external iliac artery just distal to the preexisting iliac stent on the right. Successful stents were placed. He had severe stenosis in this celiac artery at its origin. Successful stent was also placed there. He was continued on aspirin and Plavix and returned to the floor. Patient continued to work with physical therapy having good days and bad days. He remained in the hospital for about a month, most of which he was in alternate level of care (ALC) status trying to get him ready for placement. However, patient continued to refuse stating he would like to go home. Home health care was set up for patient and he was discharged once he was cleared by physical therapy and occupational therapy. DISCHARGE INSTRUCTIONS: Patient is to followup with Dr. Bass the following day for dialysis. He was instructed to not take any of his Levemir and he is unable to do a sliding scale. He was instructed to keep a blood sugar diary in the meantime, and he might benefit from oral diabetes medication in the future if his blood sugar continues to be high. In the hospitalization, his blood sugars were anywhere from 91-160 and he was not using any long-acting insulin while hospitalized. Once the patient was cleared, he was discharged home. Diet: Modified thickened liquid diet. Activities as tolerated. Discharge condition guarded. Discharge medications include: - Tylenol 650 by mouth every 4 hours as needed for pain - [place] one tablet every 6 hours as needed for pain - Combivent one puff inhaled four times a day - aspirin 81 mg by mouth daily - atorvastatin 20 mg by mouth daily - calcium carbonate 600 mg by mouth three times a day - Plavix 75 mg by mouth daily - vitamin D 50,000 units by mouth every month - Uloric 40 mg by mouth daily - gabapentin 1000 mg by mouth twice a day - metoclopramide 5 mg as needed, nausea and vomiting - metoprolol 50 mg by mouth twice a day - multivitamin one tablet by mouth daily - pantoprazole 40 mg by mouth twice a day - MiraLAX 17 grams by mouth daily - prednisone 10 mg as directed - zolpidem 10 mg at bedtime
== END 2016-05-19 16:14 | disposition home health service (06) | DRG 252 ==
LOC: M ED 15:12 → M ED INP 20:19 → M MS5PR 21:38 → M MSPAV 05-09 23:20
PROVIDERS: ADMIT Internal Medicine; ATTEND Internal Medicine
PROC: 5A1D60Z (ICD-10-PCS; 2016-04-22)
PROC: 04713DZ Dilation of Celiac Artery with Intraluminal Device, Percutaneous Approach (ICD-10-PCS; principal; 2016-04-30)
PROC: 047H3DZ Dilation of Right External Iliac Artery with Intraluminal Device, Percutaneous Approach (ICD-10-PCS; 2016-04-30)
PROC: 057Y3DZ Dilation of Upper Vein with Intraluminal Device, Percutaneous Approach (ICD-10-PCS; 2016-05-14)
DX: E11.52 Type 2 diabetes mellitus with diabetic peripheral angiopathy with gangrene (principal); N18.6 End stage renal disease; J18.9 Pneumonia, unspecified organism; K55.059 Acute (reversible) ischemia of intestine, part and extent unspecified; I13.2 Hypertensive heart and chronic kidney disease with heart failure and with stage 5 chronic kidney disease, or end stage renal disease; I50.32 Chronic diastolic (congestive) heart failure; J44.1 Chronic obstructive pulmonary disease with (acute) exacerbation; J96.11 Chronic respiratory failure with hypoxia; L03.115 Cellulitis of right lower limb; L03.116 Cellulitis of left lower limb; I77.4 Celiac artery compression syndrome; T82.49XA Other complication of vascular dialysis catheter, initial encounter; R53.1 Weakness; K21.9 Gastro-esophageal reflux disease without esophagitis; E78.5 Hyperlipidemia, unspecified; M10.30 Gout due to renal impairment, unspecified site; D63.1 Anemia in chronic kidney disease; I25.2 Old myocardial infarction; H40.9 Unspecified glaucoma; G47.00 Insomnia, unspecified; Z99.81 Dependence on supplemental oxygen; Z87.891 Personal history of nicotine dependence; Z79.4 Long term (current) use of insulin; Z79.82 Long term (current) use of aspirin; Z79.899 Other long term (current) drug therapy; Y83.1 Surgical operation with implant of artificial internal device as the cause of abnormal reaction of the patient, or of later complication, without mention of misadventure at the time of the procedure; I87.2 Venous insufficiency (chronic) (peripheral); E87.6 Hypokalemia; I71.4 Abdominal aortic aneurysm, without rupture; K59.00 Constipation, unspecified; R13.10 Dysphagia, unspecified; E87.5 Hyperkalemia; R25.1 Tremor, unspecified; Z99.2 Dependence on renal dialysis

== ENCOUNTER 2016-05-24 07:49 | Inpatient (IN) | payer MEDICARE ==
[~2016-05-24] VITALS: Ht 162.6 cm; Wt 98.1 kg
[~2016-05-24 07:49] MED LIST changes: +CEPA1LOZ2 PO; +FLUC200T2 PO; +GLUC1VL SC; +GLUC4CHW PO; +INSUHUMDS SC; +METO5TAB2 PO; +MIRA3350 PO; +MUCI600T34 PO; +PRED5TA PO
[2016-05-24 08:51] LABS: BASO # 0.1 K/mm3 (0.0-0.2); BASO % 0.7 % (0.0-1.0); EOS # 0.6 K/mm3 (0.0-0.50); LARGE UNSTAINED CELL # 0.2 K/mm3 (0.0-0.4); LYMPH # 1.5 K/mm3 (1.5-4.5); LYMPH % 11.1 % (24.0-44.0); MEAN CORPUSCULAR HEMOGLOBIN 30.5 pg (27.0-33.0); MEAN CORPUSCULAR HGB CONC 29.3 g/dl (32.0-36.5); MEAN CORPUSCULAR VOLUME 104.1 fl (80.0-96.0); MONO # 0.7 K/mm3 (0.0-0.8); MONO % 6.7 % (0.0-5.0); NEUTROPHILS # 8.3 K/mm3 (1.8-7.7); NEUTROPHILS % 74.5 % (36.0-66.0); PLATELET COUNT, AUTOMATED 219 k/mm3 (150-450); RED CELL DISTRIBUTION WIDTH 15.2 % (11.5-14.5); WHITE BLOOD COUNT 11.1 K/mm3 (4.0-10.0)
[2016-05-24] MEDS: GABAPENTIN 100 MG CAP PO SCH ×2 (09:00→21:31)
[2016-05-24] MEDS: METOPROLOL TART 50 MG TAB PO SCH ×2 (09:00→21:31)
[2016-05-24] MEDS ORDERED: FLUCONAZOLE 100 MG TAB PO SCH (09:00)
[2016-05-24] MEDS: DOCUSATE SODIUM 100 MG CAP PO SCH ×2 (09:00→21:31)
[2016-05-24 09:13] LABS: ALBUMIN 3.2 GM/DL (3.2-5.2); ALBUMIN/GLOBULIN RATIO 0.97 (1.00-1.93); ALKALINE PHOSPHATASE 78 U/L (45-117); ALT/SGPT 13 U/L (12-78); AMYLASE 86 U/L (25-115); ANION GAP 9 MEQ/L (8-16); AST/SGOT 15 U/L (15-37); BILIRUBIN,DIRECT < 0.1 MG/DL (0.0-0.2); BILIRUBIN,TOTAL 0.4 MG/DL (0.2-1.0); BLOOD UREA NITROGEN 63 MG/DL (7-18); CALCIUM LEVEL 8.8 MG/DL (8.8-10.2); CARBON DIOXIDE LEVEL 28 MEQ/L (21-32); CHLORIDE LEVEL 103 MEQ/L (98-107); CREATININE FOR GFR 9.77 MG/DL (0.70-1.30); GLOMERULAR FILTRATION RATE 5.5 (>35); GLUCOSE, FASTING 138 MG/DL (83-110); SODIUM LEVEL 140 MEQ/L (136-145); TOTAL PROTEIN 6.5 GM/DL (6.4-8.2)
[2016-05-24 09:24] LABS: POTASSIUM SERUM 6.6 MEQ/L (3.5-5.1)
--- NOTE | 2016-05-24 10:09 | REP ---
AP PORTABLE CHEST: 05/24/2016 at 08:22 AM. Comparison: Chest x-ray 05/08/2016, 04/24/2016. History: Weakness. Findings: Lungs are better inflated. There is some cardiomegaly with left atrial enlargement and ventricular enlargement. Less vascular congestion than on the previous study with only mild venous hypertension. Basilar fibrotic and/or atelectatic change without dense consolidation or definite effusion. The aorta is tortuous and calcified at the arch but unchanged. Airway midline. Pulmonary arteries are prominent centrally. Impression: 1. Cardiomegaly with some mild venous hypertension but much improved vascular congestion compared to the previous study. 2. Bibasilar fibroatelectatic change without dense consolidation. No gross effusion. Signed by Brandon Tomas MD 05/24/2016 07:29 P
[2016-05-24] MEDS ORDERED: DOCU100C PO (10:21)
[2016-05-24] MEDS ORDERED: DIFL200T PO (10:21)
[2016-05-24] MEDS ORDERED: HEPARIN 1,000 UNITS/ML 10ML VIAL (FOR RADIOLOGY& DIALYSIS ONLY) IV ONE (11:45)
--- NOTE | 2016-05-24 11:49 | HPEPDOC ---
General Date of Admission May 24, 2016 at 09:35 Primary Care Physician: Daisha Bass MD Chief Complaint The patient is a 80-year-old male admitted with a reason for visit of Generalized Weakness; Hyperkalemia. Source: Patient, Old records Exam Limitations: Mild cognitive slowing Severity: Moderate Associated Symptoms: Weakness History of Present Illness 80 year old gentleman with extensive medical history, recently discharged returns for generalized weakness for several days. Patient non-compliant, missed his last dialysis session. Found to be hyperkalemic, admitted for dialysis and likely will require placement. Home Medications Scheduled Albuterol/Ipratropium (Combivent Respimat 20-100 Mcg/Act) 1 Aer Aer 1 PUFF INH QID (Reported) Aspirin (Aspir-81) 81 Mg Tab 81 MG PO DAILY (Reported) Atorvastatin Calcium (Lipitor) 20 Mg Tab 20 MG PO DAILY (Reported) Calcium Carbonate (Calcium Carbonate) 600 Mg Tab 600 MG PO TID (Reported) Clopidogrel Bisulfate (Clopidogrel) 75 Mg Tab 75 MG PO DAILY (Reported) Docusate Sodium (Docusate Sodium) 100 Mg Cap 100 MG PO BID (Reported) Ergocalciferol (Vitamin D) 50,000 Unit Cap 50,000 UNIT PO QMONTH (Reported) 1ST OF EVERY MONTH Febuxostat (Uloric) 40 Mg Tab 40 MG PO DAILY (Reported) Gabapentin (Gabapentin) 100 Mg Cap 100 MG PO BID (Reported) Insulin Human Lispro (Humalog) 1 Units/0.01 Ml Inj 0 UNITS SC AC Insulin Human Lispro (Humalog) 1 Units/0.01 Ml Inj 0 UNITS SC QHS Metoprolol Tartrate (Metoprolol Tartrate) 50 Mg Tab 50 MG PO BID (Reported) Multivitamins *[facility] STOCKED* (Thera M Plus *[facility] STOCKED*) 1 Tab Tab 1 TAB PO DAILY (Reported) Pantoprazole Sodium Sesquihydr (Protonix) 40 Mg Tab 40 MG PO DAILY (Reported) Polyethylene Glycol (Miralax) 1 Pow Pow 17 GM PO DAILY (Reported) Prednisone (Prednisone) 5 Mg Tab 5 MG PO DAILY (Reported) Scheduled PRN Acetaminophen (Acetaminophen) 325 Mg Tab 325 MG PO Q4H PRN PRN PAIN (Reported) Acetaminophen/Hydrocodone ([place] 5-325 mg) 1 Tab Tab 1 TAB PO Q6H PRN PRN PAIN ( Reported) Metoclopramide HCl (Metoclopramide HCl) 5 Mg Tab 5 MG PO TID PRN PRN NAUSEA OR VOMITING (Reported) Zolpidem Tartrate (Ambien) 10 Mg Tab 10 MG PO QHS PRN PRN INSOMNIA (Reported) Allergies Coded Allergies: No Known Drug Allergy (Verified Allergy, Unknown, 07/19/12) Past Medical History Medical History 1. HTN 2. ESRD/HD 3. Non-compliance 4. PVD s/p external iliac stent and celiac stent 5. Dry gangrene multiple bilateral toes 6. COPD 7. CAD 8. Gout 9. CHF - Diastolic 10. Hyperlipidemia 11. Chronic hypoxic respiratory failure 12. Diabetes Social History * Smoker: non-smoker Review of Symptoms Constitutional: Reports: Weakness, Denies: Chills, Fatigue, Fever, Lethargy, Malaise, Night Sweats, Other, Weight Loss Eyes: Denies: Conjunctivae inflammation, Eyelid inflammation, Other, Pain, Redness, Vision change ENT: Denies: Dysphagia, Ear Pain, Epistaxis, Head Aches, Other Symptoms, Post Nasal Drip, Sinus Congestion, Sore Throat Skin: Denies: Breakdown, Bruising, Dry, Itching, Jaundice, Lesions, Nail Changes, Other, Rash Pulmonary: Denies: Cough, Dyspnea, Other Symptoms, Pleuritic Chest Pain Cardiovascular: Denies: Chest Pain, Edema, Lt Headedness, Orthopnea, Other Symptoms, Palpitations, Paroxysmal Noc. Dyspnea Gastrointestinal: Denies: Abdominal Pain, Constipation, Diarrhea, Hematochezia , Melena, Nausea, Other Symptoms, Vomiting Genitourinary: Denies: Dysuria, Frequency, Hematuria, Incontinence, Other Symptoms, Retention Physical Examination General Exam: Positive: Alert, Cooperative, No Acute Distress, Other ( dissheveled appearance) Eye Exam: Positive: Conjunctiva & lids normal, PERRLA ENT Exam: Positive: Atraumatic Neck Exam: Positive: Supple Chest Exam: Positive: Clear to auscultation, Normal air movement Heart Exam: Positive: Rate Normal, Regular Rhythm Telemetry: Positive: No significant arrhythmia Abdomen Exam: Positive: Normal bowel sounds, Soft, Negative: Tenderness Extremity Exam: Positive: Cyanosis, Other (Signfiicant bilateral LE circumferential erythema L>>R, multiple dry gangrenous toes B/L) Skin Exam: Positive: Breakdown Psych Exam: Positive: Oriented x 3 Vital Signs Refer to ER documentation Laboratory Data Labs 24H Laboratory Tests 2 05/24/16 08:23: Lactic Acid (Sepsis) 0.7 05/24/16 08:26: Aspartate Amino Transf (AST/SGOT) 15, Alanine Aminotransferase (ALT/SGPT) 13, Alkaline Phosphatase 78, Total Bilirubin 0.4, Direct Bilirubin < 0.1, Albumin 3.2, Albumin/Globulin Ratio 0.97L, Amylase Level 86, Anion Gap 9, White Blood Count 11.1H, Red Blood Count 3.61L, Hemoglobin 11.0L, Hematocrit 37.5L, Mean Corpuscular Volume 104.1H, Mean Corpuscular Hemoglobin 30.5, Mean Corpuscular Hemoglobin Concent 29.3L, Red Cell Distribution Width 15.2H, Platelet Count 219 , Neutrophils (%) (Auto) 74.5H, Lymphocytes (%) (Auto) 11.1L, Monocytes (%) ( Auto) 6.7H, Eosinophils (%) (Auto) 5.0H, Basophils (%) (Auto) 0.7, Neutrophils # (Auto) 8.3H, Lymphocytes # (Auto) 1.5, Monocytes # (Auto) 0.7, Eosinophils # ( Auto) 0.6H, Basophils # (Auto) 0.1, Calcium Level 8.8, Creatine Kinase MB 2.3, Creatine Kinase MB Relative Index 4.50H, Glomerular Filtration Rate 5.5L, Large Unclassified Cells # 0.2, Large Unclassified Cells % 2.0, Lipase 45L, Total Creatine Kinase 51, Total Protein 6.5, Troponin I < 0.02 CBC/BMP Laboratory Tests 05/24/16 08:26 Red Blood Count 3.61 L, Mean Corpuscular Volume 104.1 H, Mean Corpuscular Hemoglobin 30.5, Mean Corpuscular Hemoglobin Concent 29.3 L, Red Cell Distribution Width 15.2 H, Neutrophils (%) (Auto) 74.5 H, Lymphocytes (%) (Auto ) 11.1 L, Monocytes (%) (Auto) 6.7 H, Eosinophils (%) (Auto) 5.0 H, Basophils (% ) (Auto) 0.7, Neutrophils # (Auto) 8.3 H, Lymphocytes # (Auto) 1.5, Monocytes # (Auto) 0.7, Eosinophils # (Auto) 0.6 H, Basophils # (Auto) 0.1 Microbiology Microbiology 05/24/16 Blood Culture, Received Pending 05/24/16 Blood Culture, Received Pending 05/24/16 Influenza Virus Type A Antigen - Final, Complete 05/24/16 Influenza Virus Type B Antigen - Final, Complete Problems (1) Generalized weakness Status: Acute Response to Treatment: Progressing Discussed With: Patient Problem Specific Plan: Consult Specialist, Monitor Clinically, Repeat Labs, Repeat Tests Problem Text: Likely secondary to his uremia from non-compliance with hemodialysis. further complicated with extensive medical co-morbidities. Plan for dialysis today. Missed his session. (2) Hyperkalemia Status: Acute Discussed With: Patient Problem Specific Plan: Consult Specialist, Monitor Clinically, Repeat Labs Problem Text: Dialysis today. (3) Peripheral vascular disease Status: Chronic Problem Specific Plan: Monitor Clinically (4) Hypertension Status: Chronic Problem Specific Plan: Monitor Clinically (5) Hyperlipidemia Status: Chronic (6) Chronic respiratory failure with hypoxia Status: Chronic Problem Specific Plan: Monitor Clinically (7) Diabetes Status: Chronic Problem Specific Plan: Monitor Clinically, Repeat Labs (8) COPD (chronic obstructive pulmonary disease) Status: Chronic Problem Specific Plan: Monitor Clinically 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 Problem Specific Plan: Monitor Clinically (13) ESRD (end stage renal disease) Status: Chronic Problem Specific Plan: Consult Specialist, Monitor Clinically Plan / VTE VTE Prophylaxis Ordered?: Yes MARGA COCHRAN MD May 24, 2016 11:49
--- NOTE | 2016-05-24 12:30 | CR ---
DATE OF CONSULTATION: 05/24/2016 REQUESTING PHYSICIAN: Dr. Alin Hernandez CONSULTING PHYSICIAN: Dr. Bonilla REASON FOR CONSULTATION: Management of end-stage renal disease, missed hemodialysis, and hyperkalemia. CHIEF COMPLAINT: Patient presented to emergency room today after missing two sessions of hemodialysis, feeling very weak, tired and inability to walk at home. HISTORY OF PRESENT ILLNESS: Mr. Nnamdi Rodriguez is an 80-year-old male with past medical history of end-stage renal disease on hemodialysis Thursday, , Thursday, well know to nephrology service from outpatient dialysis center and from multiple previous admissions. He missed his hemodialysis session on and today. He was feeling very weak and tired. When he presented to the emergency room, on initial triage labs, he was also found to have a potassium of 6.6. Nephrology service was called for the management of missed hemodialysis session and hyperkalemia. Patient has been admitted to the hospital previously as well, because of weakness and inability to walk, but apparently patient doest not want to go to snf and he is not cleared for admission to rehabilitation. So it has been an ongoing social issue for the past 2-3 months. Patient denies any fevers, chills, rigors, chest pain, shortness of breath, constipation, or diarrhea. PAST MEDICAL HISTORY: 1. Patient has history of end-stage of renal disease on hemodialysis every Thursday, , and Thursday. 2. History of chronic obstructive pulmonary disease on home oxygen at 2 liters. 3. Chronic systolic congestive heart failure. 4. History of coronary artery disease, status post stents. 5. Anemia secondary to end-stage renal disease. 6. Hypertension. 7. Diabetes mellitus type 2. 8. History of gout secondary to end-stage renal disease. 9. Gastroesophageal reflux disease. 10. History of gangrene of the bilateral lower extremity toes after a recent cardiac catheterization and difficulty with ambulation. PAST SURGICAL HISTORY: Status post cardiac stents, almost six times in the past. Latest one was done in 2016. Status post left upper arm atriovenous (AV) graft placement. ALLERGIES: Patient has NO KNOWN DRUG ALLERGIES. FAMILY HISTORY: No significant family history of end-stage renal disease requiring hemodialysis. SOCIAL HISTORY: Patient is a former smoker. He is a former drinker, but he quit almost 27 years ago. He denies any recreational drug abuse. Patient lives alone at home and he is not able to perform activities of daily life at this time because of severe debilitation and weakness. REVIEW OF SYSTEMS: CONSTITUTIONAL: Patient reported feeling very tired and fatigued, and inability to walk and perform activities of daily life. EYES: He denies any change in vision, blurry vision ENT: Patient denies any dysphagia, odynophagia, sore throat, any ear discharge or any recent hearing problem. CARDIOVASCULAR: Patient reports history of coronary artery disease, but he denies any chest pain or palpitations at this time. RESPIRATORY: Patient denies any cough or phlegm at this time. He denies any shortness of breath at this time. GASTROINTESTINAL: Patient denies any nausea, vomiting, pain in abdomen, constipation, or diarrhea. MUSCULOSKELETAL: Patient reports muscle weakness, inability to walk, and gangrene of the multiple toes in the lower extremities. CENTRAL NERVOUS SYSTEM: Patient denies any history of strokes or seizures, but he does report weakness and gait instability. HEMATOLOGIC/ONCOLOGIC: Patient reports history of anemia secondary to end-stage renal disease. ENDOCRINE: Patient reports history of diabetes type 2 and secondary hyperparathyroidism. SKIN: Patient reports dry skin and gangrene of toes. PSYCHIATRIC: He denies any history of anxiety or depression. All other review of system is negative. PHYSICAL EXAMINATION: GENERAL: Patient is awake, alert, oriented times three, but he very weak and tired at this time. VITAL SIGNS: Temperature is 98 degrees Fahrenheit, blood pressure is 108/59, pulse is 69, respiratory rate of 14, saturating 98% on room air. HEAD AND NECK EXAM: Extraocular muscles intact. Pupils equally round and reactive to light. Mucous membranes are slightly dry. Neck is supple. There is no jugular venous distention (JVD). CARDIOVASCULAR: S1, S2. Regular rate. No murmur, rub, or gallop. RESPIRATORY: Positive crepitations on deep inspiration at the bases and decreased breath sounds at the bases. ABDOMEN: Soft. Mild tenderness to deep palpation in the abdomen. No ascites. No organomegaly at this time. EXTREMITIES: Patient has erythema of the left leg. He has dry skin and he has dry gangrene of multiple toes in both feet. CENTRAL NERVOUS SYSTEM: Patient has a resting tremor of the hands. Otherwise, he moves all four extremities and power is 5/5 in all extremities. ARTERIOVENOUS ACCESS: Patient has a left upper AV graft with positive thrill and bruit. PSYCHIATRIC: Normal mood and affect. LABORATORY REVIEW: CBC showed a WBC of 11.1. Hemoglobin is 11. Platelets are 219. BMP showed sodium 140, potassium is 6.6, which was slightly hemolyze. Chloride is 103, bicarbonate 28, BUN 63, creatinine is 9.7. Troponin is less than 0.02. Lipase is 45. MICROBIOLOGY: Influenza is negative. Blood cultures are pending. IMAGING: A chest x-ray done today showed cardiomegaly with mild venous hypertension. Bibasilar atelectasis without consolidations. There were no effusions. HOME MEDICATIONS: Patient's home medications include: - Tylenol as needed - [place] one tablet every 6 hours as needed for pain - Combivent one puff four times a day - aspirin 81 mg daily - Lipitor 20 mg by mouth nightly - calcium carbonate 600 mg by mouth three times a day - Plavix 75 mg daily - [place] 100 mg twice a day - vitamin D 50,000 units once a month - Uloric 40 mg by mouth daily - fluconazole 200 mg by mouth daily - gabapentin 100 mg by mouth twice a day - Reglan as needed for nausea - metoprolol 50 mg twice a day - Nephro-Raymundo one tablet daily - Protonix 40 mg by mouth daily - MiraLAX 17 grams by mouth daily - prednisone 5 mg daily - Ambien 10 mg by mouth nightly as needed, insomnia ASSESSMENT: 80-year-old male with past medical history of end-stage renal disease on hemodialysis every Thursday, and Thursday, multiple comorbidities as mentioned above, admitted this time because of weakness, inability to walk, missed hemodialysis, hyperkalemia. Nephrology service following the patient for management of end-stage renal disease and electrolyte abnormalities. PLAN: 1. End-stage renal disease, missed hemodialysis. Patient will be urgently hemodialyzed today. I have already called the on-call nurse. We shall dialyze him for 3-1/2 hours and removal for about 3 liters of fluid as tolerated by his blood pressure. 2. Hyperkalemia. Hyperkalemia is secondary to missed hemodialysis and basic metabolic panel (BMP) sample is slightly hemolyzed as well. However, patient is going to get urgent hemodialysis with 1 K dialysate for 1 hour and 2 K dialysate for rest of the time. Potassium will hopefully improve with hemodialysis. No need of Kayexalate,Insulin,D50 or calcium at this time because machine is ready for him at this time for hemodialysis. 3. Generalized weakness and inability to walk. Patient has been admitted almost twice in the past because of this problem. He has gangrene of the toes with difficulty with ambulation. Patient does not want to go to snf. Patient will probably need to go rehabilitation to get his strength back. Rest of the management is as per primary team and physical therapy. 4. Bilateral dry gangrene of the toes. It is stable at this time. No need of any antibiotics. He has been seen by podiatry and surgery during the previous admissions. 5. History of chronic systolic congestive heart failure and slight volume overload. Patient missed two sessions of dialysis. I am going to try to do an ultrafiltration of 3 liters during hemodialysis today. 6. Anemia in end-stage renal disease. Patient's hemoglobin is acceptable at this time. No need of Aranesp today. 7. Hypertension. Continue current antihypertensive medications at this time. 8. 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 Continue current dose of Uloric 40 mg by mouth daily. 9. Chronic kidney disease, mineral bone disease. Continue current dose of calcium 600 mg by mouth three times a day with meals for hyperphosphatemia. Thank you for involving us in the care of this patient. We shall be happy to follow the patient along with you tomorrow morning. Plan of care was discussed with the emergency room (ER) physician and with the primary medical team. Urgent hemodialysis was arranged and orders for dialysis were already written. LINDYD
--- NOTE | 2016-05-24 12:56 | ECGEPIP ---
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
--- NOTE | 2016-05-24 16:04 | EDDOCDS ---
Physician Documentation [facility] Name: Nnamdi Rodriguez Age: 80 yrs Sex: Male : 1935 Arrival Date: 05/24/2016 Time: 07:49 Bed 15 Private MD: Disposition: 05/24/16 09:39 Hospitalization ordered by Alin Hernandez for Inpatient Admission. Preliminary diagnosis are Weakness, Hyperkalemia, Gangrene, not elsewhere classified - left toes. - Bed requested for PCU. - Status is Inpatient Admission. kc3 - Condition is Stable. - Problem is new. - Symptoms are unchanged. Historical: - Allergies: no known allergies; - Home Meds: 1. hydrocodone-acetaminophen 5-325 mg Oral tab every 6 hours 2. Combivent Respimat 20-100 mcg/actuation inhalation mist 1 puff 4 times per day 3. aspirin 81 mg Oral tab 1 tab once daily 4. Lipitor 20 mg Oral tab 1 tab once daily 5. calcium carbonate 600 mg (1,500 mg) Oral tab 600 mg daily 6. clopidogrel 75 mg oral tab once daily 7. Vitamin D Oral 50,000 unit monthly 8. Uloric 40 mg oral tab 1 tab once daily 9. gabapentin 100 mg Oral tab twice a day 10. metoclopramide HCl 5 mg Oral tab three times a day as needed 11. metoprolol tartrate 50 mg Oral tab 1 tab 2 times per day 12. multivitamin Oral tab 1 tablet daily 13. pantoprazole 40 mg oral TbEC 1 tab 2 times per day 14. polyethylene glycol 3350 17 gram oral pwpk 1 packet once daily 15. prednisone 5 mg oral tab once daily 16. zolpidem 10 mg Oral tab 1 tab once daily 17. 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 No barriers to communication noted, The patient speaks fluent Ukrainian, Speaks appropriately for age. - Family history: Not pertinent. - : The pt / caregiver states he / she is on anticoagulants: Plavix. Home medication list is obtained from [employer] import data. - Exposure Risk Screening:: None identified. Vital Signs: 05/24 08:06 BP 156 / 65 RA Sitting (auto/reg); Pulse 73; Resp 18; Temp 99.0(TE); Pulse Ox 99% on 2 jrd lpm NC; Weight 94.8 kg / 209 lbs (M); Height 5 ft. 4 in. (162.56 cm) (R); Pain 0/10; 08:12 Pulse 74 MON; Pulse Ox 99% ; kc3 08:13 BP 181 / 74 (auto/); kc3 08:42 Pulse 70 MON; Pulse Ox 99% ; kc3 08:43 BP 110 / 53 (auto/); kc3 08:57 Pulse 68 MON; Pulse Ox 98% ; kc3 08:58 BP 125 / 57 (auto/); kc3 09:12 Pulse 68 MON; Pulse Ox 98% ; kc3 09:13 BP 108 / 54 (auto/); kc3 09:43 BP 117 / 55 (auto/); kc3 09:43 Pulse 68 MON; Pulse Ox 99% ; kc3 09:58 BP 111 / 54 (auto/); kc3 09:58 Pulse 68 MON; Pulse Ox 98% ; kc3 10:13 BP 120 / 55 (auto/); kc3 10:13 Pulse 68 MON; Pulse Ox 98% ; kc3 10:27 Pulse 68 MON; Pulse Ox 99% 2 lpm ; kc3 10:28 BP 113 / 53 (auto/); kc3 15:53 BP 107 / 53; Pulse 78; Resp 20; Temp 99.1; Pulse Ox 97% on 3 lpm NC; Pain 0/10; jrd 08:06 Body Mass Index 35.87 (94.80 kg, 162.56 cm) jr MDM: 08:12 IV Saline Lock ordered. ml 08:12 Bat Person/Pulse Ox/q 15 min VS ordered. ml 08:12 Rhythm Strip to chart ordered. ml 08:12 -Blood Culture (Adults Only), peripheral from different site, or from device/port/PICC ml etc. if present ordered. 08:12 CBC with Diff Ordered. EDMS 08:12 MED Profile Ordered. EDMS 08:12 CIP Ordered. EDMS 08:12 Troponin Ordered. EDMS 08:12 Liver Profile Ordered. EDMS 08:12 Lipase Ordered. EDMS 08:12 Amylase Ordered. EDMS 08:12 Lactic Acid (Stone tube on ice) Ordered. EDMS 08:12 -Blood Culture Ordered. EDMS 08:12 UA Ordered. EDMS 08:12 Urine Culture Ordered. EDMS 08:14 -Blood Culture (Adults Only), peripheral from different site, or from device/port/PICC deg etc. if present complete. 08:14 Misc. Nursing Order ordered. ml 08:14 Chest, 1 View Ordered. EDMS 08:15 Obtain sample by nasopharyngeal swab ordered. ml 08:15 ECG WITH READING ER PHYS+CARDIAG ordered. EDMS 08:15 BLOOD CULTURES Ordered. EDMS 08:15 -Influenza A&B Rapid Antigen - Nose Ordered. EDMS 09:09 Financial registration complete. mm15 09:09 [facility] [place] Payment Agreement was scanned into [employer] and attached to record. mm15 09:23 CBC with Diff Reviewed. ml 09:23 Lactic Acid (Stone tube on ice) Reviewed. ml 09:23 -Influenza A&B Rapid Antigen - Nose Reviewed. ml 09:30 MED Profile Reviewed. ml 09:30 CIP Reviewed. ml 09:30 Liver Profile Reviewed. ml 09:30 Lipase Reviewed. ml 09:30 Troponin Reviewed. ml 09:30 Amylase Reviewed. ml 09:32 BED REQUEST+ADM ordered. EDMS 09:37 Admission / Observation Status ordered. EDMS 09:58 PHYSICAL THERAPY EVAL & TREAT ordered. EDMS 10:00 CONSISTENT CARBOHYDRATES ordered. EDMS Signatures: Dispatcher [employer] EDMS Dawna Fernández MD MD ml Renetta Holden, Manager Nursing Home Unit deg Norbert Rogers RN RN mlb1 Fiordaliza Sam mm15 Naomi Suarez,PARRIS RN kc3 The chart was reviewed and I authenticate all verbal orders and agree with the evaluation and treatment provided.Attachments: 09:09 [facility] [place] Payment Agreement mm15 MTDD
--- NOTE | 2016-05-24 16:05 | EDDOCDS ---
Nurse's Notes [facility] Name: Nnamdi Gann Age: 80 yrs Sex: Male : 1935 Arrival Date: 05/24/2016 Time: 07:49 Bed 15 Private MD: Diagnosis: Weakness;Hyperkalemia;Gangrene, not elsewhere classified-left toes Presentation: 05/24 07:52 Presenting complaint: EMS states: Generalized weakness, missed dialysis on due mlb1 to weakness. The last date and time the patient was known to be well was was at an unknown time on an unknown date. No acute neurological deficit is noted. The patients blood glucose was checked before arriving to the hospital and was found to be normal. Adult Sepsis Screening: The patient does not have new or worsening altered mentation. Patient's respiratory rate is less than 22. Systolic blood pressure is greater than 100. Patient has a qSOFA score of 0- Negative Sepsis Screen. Suicide/Homicide risk assessment- the patient denies having any suicidal and/or homicidal ideations and does not present with any other emotional, behavioral or mental health complaints. Status: Patient is not a electrical sign servicer or dependent. Transition of care: patient was not received from another setting of care. Care prior to arrival: Glucose check. 145. 07:52 Acuity: SUJEY Level 3 mlb1 07:52 Method Of Arrival: Ambulance mlb1 Triage Assessment: 08:03 The onset of the patients symptoms was more than three hours ago. General: Appears mlb1 unkempt, Behavior is appropriate for age, cooperative. Pain: Denies pain. The patient is triaged at the bedside. See Assessment in Nurses Notes section of ED record. Neurological: Level of Consciousness is awake, alert, Oriented to person, place, time, Moves all extremities. Weakness Speech is normal, Facial symmetry appears normal. Cardiovascular: Edema pitting to left foot and right foot. Respiratory: Airway is patent Respiratory effort is even, unlabored. 11:22 Neurological: Reports weakness. kc3 Historical: - Allergies: no known allergies; - Home Meds: 1. hydrocodone-acetaminophen 5-325 mg Oral tab every 6 hours 2. Combivent Respimat 20-100 mcg/actuation inhalation mist 1 puff 4 times per day 3. aspirin 81 mg Oral tab 1 tab once daily 4. Lipitor 20 mg Oral tab 1 tab once daily 5. calcium carbonate 600 mg (1,500 mg) Oral tab 600 mg daily 6. clopidogrel 75 mg oral tab once daily 7. Vitamin D Oral 50,000 unit monthly 8. Uloric 40 mg oral tab 1 tab once daily 9. gabapentin 100 mg Oral tab twice a day 10. metoclopramide HCl 5 mg Oral tab three times a day as needed 11. metoprolol tartrate 50 mg Oral tab 1 tab 2 times per day 12. multivitamin Oral tab 1 tablet daily 13. pantoprazole 40 mg oral TbEC 1 tab 2 times per day 14. polyethylene glycol 3350 17 gram oral pwpk 1 packet once daily 15. prednisone 5 mg oral tab once daily 16. zolpidem 10 mg Oral tab 1 tab once daily 17. atorvastatin 20 mg oral tab 1 tab once daily - PMHx: Chronic Renal Failure with dialysis; COPD; Diabetes - IDDM: uncontrolled; GERD; Hypercholesterolemia; Hypertension; OR; AAA; - PSHx: cardiac stents.; Dialysis Graft Construction, Arm; - Social history: Smoking status: unknown if patient ever smoked tobacco. No barriers to communication noted, The patient speaks fluent Vietnamese, Speaks appropriately for age. - Family history: Not pertinent. - : The pt / caregiver states he / she is on anticoagulants: Plavix. Home medication list is obtained from [employer] import data. - Exposure Risk Screening:: None identified. Screenin:13 Fall risk: At risk due to age, weakness. The following interventions are performed due mlb1 to a positive Fall Risk Screen: Fall Risk is added to Special Handling on the patient Summary Screen. A Fall Risk Bracelet was applied to the patient. Side Rails are placed in the up position. A Call [place] is given with instruction to call for help when getting out of bed. Fall Alert bracelet is placed on the patient. Assistance ADL's: Requires assistance with. Abuse/DV Screen: The patient / caregiver reports he/she is: not in a situation that causes fear, pain or injury. Nutritional screening: On. Advance Directives: There is an active DNR order and the pt has a copy here at this time. home support is adequate. 09:17 Screening information is obtained from the patient. kc3 Assessment: 08:41 General: Appears in no apparent distress, Behavior is cooperative. Pain: Denies pain. mlb1 Neurological: Level of Consciousness is awake, alert, Oriented to person, place, time, Moves all extremities. Weakness Full function Facial symmetry appears normal. Cardiovascular: Edema pitting to left foot and right foot Pulses pedal pulses present with Doppler. Respiratory: Airway is patent Respiratory effort is even, unlabored, Breath sounds are clear bilaterally. Derm: Skin is intact, Skin is dry, Skin is normal, Skin temperature is warm. 09:11 General: Appears in no apparent distress, comfortable, Behavior is appropriate for age, kc3 cooperative. Pain: Denies pain. Neurological: Level of Consciousness is awake, alert, obeys commands, Oriented to person, place, time. Neurological: Moves all extremities. Weakness Full function Facial symmetry appears normal. Cardiovascular: Rhythm is irregular. Respiratory: Respiratory effort is even, unlabored. Derm: Edema pitting to left and right foot. Pedal pulses present with doppler. Skin is black to tips of 1st toe on left foot, 1st, 2nd, 3rd toes on right foot. Skin is dry. Pt reports has not made urine in "last 3-4 days.". 10:26 General: Appears in no apparent distress, comfortable, to be sleeping. Behavior is kc3 appropriate for age, cooperative. Pain: Denies pain. Neurological: No deficits noted. Cardiovascular: Rhythm is sinus rhythm. Respiratory: Respiratory effort is even, unlabored. Derm: see previous note for documentation. 11:00 General: Pt transported to dialysis. . kc3 12:00 General: Pt remains in dialysis at this time. . kc3 13:00 General: Pt remains in dialysis at this time. . kc3 14:12 General: Pt remains in dialysis at this time. . kc3 15:00 General: Pt remains in dialysis at this time. . kc3 15:58 General: Appears in no apparent distress, comfortable, Behavior is appropriate for age, kc3 cooperative. Pain: Denies pain. Neurological: Level of Consciousness is awake, alert, obeys commands, Oriented to person, place, time. Respiratory: Respiratory effort is even, unlabored. Derm: See previous note for documentation. 16:01 General: Ramesh in dialysis reports took 2.1 kilos off of pt. . kc3 Vital Signs: 08:06 BP 156 / 65 RA Sitting (auto/reg); Pulse 73; Resp 18; Temp 99.0(TE); Pulse Ox 99% on 2 jrd lpm NC; Weight 94.8 kg (M); Height 5 ft. 4 in. (162.56 cm) (R); Pain 0/10; 08:12 Pulse 74 MON; Pulse Ox 99% ; kc3 08:13 BP 181 / 74 (auto/); kc3 08:42 Pulse 70 MON; Pulse Ox 99% ; kc3 08:43 BP 110 / 53 (auto/); kc3 08:57 Pulse 68 MON; Pulse Ox 98% ; kc3 08:58 BP 125 / 57 (auto/); kc3 09:12 Pulse 68 MON; Pulse Ox 98% ; kc3 09:13 BP 108 / 54 (auto/); kc3 09:43 BP 117 / 55 (auto/); kc3 09:43 Pulse 68 MON; Pulse Ox 99% ; kc3 09:58 BP 111 / 54 (auto/); kc3 09:58 Pulse 68 MON; Pulse Ox 98% ; kc3 10:13 BP 120 / 55 (auto/); kc3 10:13 Pulse 68 MON; Pulse Ox 98% ; kc3 10:27 Pulse 68 MON; Pulse Ox 99% 2 lpm ; kc3 10:28 BP 113 / 53 (auto/); kc3 15:53 BP 107 / 53; Pulse 78; Resp 20; Temp 99.1; Pulse Ox 97% on 3 lpm NC; Pain 0/10; jrd 08:06 Body Mass Index 35.87 (94.80 kg, 162.56 cm) jrd Vitals: 08:13 Glucose Measurement D-stick done by EMS. Log In Time N/A - ambulance arrival. mlb1 ED Course: 07:49 Patient visited by Renetta Holden, Knot Tier. deg 07:49 Patient moved to Waiting deg 07:50 Patient moved to 15 deg 07:52 Patient visited by Norbert Rogers, PARRIS. mlb1 07:57 Triage Initiated mlb1 08:02 Dawna Fernández MD is Attending Physician. ml 08:02 Patient visited by Dawna Fernández MD. ml 08:06 Patient visited by Jonathan Murphy PCA. jrd 08:14 Patient visited by Norbert Rogers, RN. mlb1 08:17 Patient visited by Jonathan Murphy PCA. jrd 08:17 EKG done. (by ED staff). Reviewed by Dawna Fernández MD. jrd 08:39 BLOOD CULTURES Sent. mlb1 08:39 -Influenza A&B Rapid Antigen - Nose Sent. mlb1 08:39 -Blood Culture Sent. mlb1 08:39 Lactic Acid (Stone tube on ice) Sent. mlb1 08:39 Amylase Sent. mlb1 08:39 Lipase Sent. mlb1 08:39 Liver Profile Sent. mlb1 08:39 Troponin Sent. mlb1 08:39 CIP Sent. mlb1 08:39 MED Profile Sent. mlb1 08:39 CBC with Diff Sent. mlb1 08:39 Inserted saline lock: 20 gauge in right antecubital area and blood collected. The mlb1 patient tolerated the procedure well. Labs drawn. (by ED staff). Sent per order to lab. Labs/Blood culture drawn. 08:42 The patient / caregiver is instructed regarding the plan of care and ED course. Patient roberto has correct armband on for positive identification. Placed in gown. Bed in low position. Call light in reach. Side rails up X2. box storage worker on. Pulse ox on. NIBP on. 08:43 Patient visited by Norbert Rogers RN. mlb1 08:43 No procedures done that require assistance. mlb1 09:02 Naomi Suarez,RN is Primary Nurse. kc3 09:09 [facility] Payment Agreement was scanned into [employer] and attached to record. mm15 09:18 Patient visited by Naomi Suarez,PARRIS. kc3 09:39 Alin Hernandez is Hospitalizing Provider. ml 10:42 Chest, 1 View Returned. EDMS 13:27 EKG-ADULT Returned. EDMS 13:56 Patient moved to Admit Hold dy 15:30 Patient moved to 15 dy 15:55 Patient visited by Jonathan Murphy PCA. jrd Order Results: Lab Order: CBC with Diff; SPEC'M 05/24/16 08:26 Test: WHITE BLOOD COUNT; Value: 11.1; Range: 4.0-10.0; Abnormal: Above high normal; Units: K/mm3; Status: F Test: RED BLOOD COUNT; Value: 3.61; Range: 4.30-6.10; Abnormal: Below low normal; Units: M/mm3; Status: F Test: HEMOGLOBIN; Value: 11.0; Range: 14.0-18.0; Abnormal: Below low normal; Units: g/dl; Status: F Test: HEMATOCRIT; Value: 37.5; Range: 42.0-52.0; Abnormal: Below low normal; Units: %; Status: F Test: MEAN CORPUSCULAR VOLUME; Value: 104.1; Range: 80.0-96.0; Abnormal: Above high normal; Units: fl; Status: F Test: MEAN CORPUSCULAR HEMOGLOBIN; Value: 30.5; Range: 27.0-33.0; Units: pg; Status: F Test: MEAN CORPUSCULAR HGB CONC; Value: 29.3; Range: 32.0-36.5; Abnormal: Below low normal; Units: g/dl; Status: F Test: RED CELL DISTRIBUTION WIDTH; Value: 15.2; Range: 11.5-14.5; Abnormal: Above high normal; Units: %; Status: F Test: PLATELET COUNT, AUTOMATED; Value: 219; Range: 150-450; Units: k/mm3; Status: F Test: NEUTROPHILS %; Value: 74.5; Range: 36.0-66.0; Abnormal: Above high normal; Units: %; Status: F Test: LYMPH %; Value: 11.1; Range: 24.0-44.0; Abnormal: Below low normal; Units: %; Status: F Test: MONO %; Value: 6.7; Range: 0.0-5.0; Abnormal: Above high normal; Units: %; Status: F Test: EOS %; Value: 5.0; Range: 0.0-3.0; Abnormal: Above high normal; Units: %; Status: F Test: BASO %; Value: 0.7; Range: 0.0-1.0; Units: %; Status: F Test: LARGE UNSTAINED CELL %; Value: 2.0; Range: 0.0-4.0; Units: %; Status: F Test: NEUTROPHILS #; Value: 8.3; Range: 1.8-7.7; Abnormal: Above high normal; Units: K/mm3; Status: F Test: LYMPH #; Value: 1.5; Range: 1.5-4.5; Units: K/mm3; Status: F Test: MONO #; Value: 0.7; Range: 0.0-0.8; Units: K/mm3; Status: F Test: EOS #; Value: 0.6; Range: 0.0-0.50; Abnormal: Above high normal; Units: K/mm3; Status: F Test: BASO #; Value: 0.1; Range: 0.0-0.2; Units: K/mm3; Status: F Test: LARGE UNSTAINED CELL #; Value: 0.2; Range: 0.0-0.4; Units: K/mm3; Status: F Lab Order: MED Profile; SPEC'M 05/24/16 08:26 Test: GLUCOSE, FASTING; Value: 138; Range: 83-110; Abnormal: Above high normal; Units: MG/DL; Status: F Test: BLOOD UREA NITROGEN; Value: 63; Range: 7-18; Abnormal: Above high normal; Units: MG/DL; Status: F Test: CREATININE FOR GFR; Value: 9.77; Range: 0.70-1.30; Abnormal: Above high normal; Units: MG/DL; Status: F Test: GLOMERULAR FILTRATION RATE; Value: 5.5; Range: >35; Abnormal: Below low normal; Status: F Test: SODIUM LEVEL; Value: 140; Range: 136-145; Units: MEQ/L; Status: F Test: POTASSIUM SERUM; Value: 6.6; Range: 3.5-5.1; Abnormal: Above upper panic limits; Units: MEQ/L; Status: F Test: CHLORIDE LEVEL; Value: 103; Range: 98-107; Units: MEQ/L; Status: F Test: CARBON DIOXIDE LEVEL; Value: 28; Range: 21-32; Units: MEQ/L; Status: F Test: ANION GAP; Value: 9; Range: 8-16; Units: MEQ/L; Status: F Test: CALCIUM LEVEL; Value: 8.8; Range: 8.8-10.2; Units: MG/DL; Status: F Test Note: ; Units are mL/min/1.73 m2 Chronic Kidney Disease Staging per NKF: Stage I & II GFR >=60 Normal to Mildly Decreased Stage III GFR 30-59 Moderately Decreased Stage IV GFR 15-29 Severely Decreased Stage V GFR <15 Very Little GFR Left ESRD GFR <15 on MEDICAL ASSOCIATE Lab Order: CIP; SPEC'M 05/24/16 08:26 Test: CPK CREATINE PHOSPHOKINASE; Value: 51; Range: 39-308; Units: U/L; Status: F Test: CK-MB VALUE MASS; Value: 2.3; Range: 0.0-3.6; Units: NG/ML; Status: F Test: MB/CK RELATIVE INDEX; Value: 4.50; Range: < OR =4; Abnormal: Above high normal; Status: F Test Note: ; DIAGNOSIS CRITERIA MMB ng/ml Relative Index (RI) NON-AMI < or = 5 N/A STONE ZONE > 5 < or = 4 AMI > 5 > 4 Lab Order: Troponin; SPEC'M 05/24/16 08:26 Test: TROPONIN I; Value: < 0.02; Range: < 0.10; Units: NG/ML; Status: F Test Note: ; Troponin I Reference Interval for Deep Driver LOCI: 99th Percentile= 0.00-0.045 ng/ml Risk Stratification: <= 0.10 ng/ml Decreased Risk for Adverse Clinical Events. 0.10-1.50 ng/ml Increased Risk for Adverse Clinical Events. Evaluation of additional criterion and/or repeat testing in 2-6 hours is suggested to rule out myocardial damage. >= 1.50 ng/ml Indicative of Myocardial Injury. Lab Order: Liver Profile; SPEC'M 05/24/16 08:26 Test: AST/SGOT; Value: 15; Range: 15-37; Units: U/L; Status: F Test: ALT/SGPT; Value: 13; Range: 12-78; Units: U/L; Status: F Test: ALKALINE PHOSPHATASE; Value: 78; Range: 45-117; Units: U/L; Status: F Test: BILIRUBIN,TOTAL; Value: 0.4; Range: 0.2-1.0; Units: MG/DL; Status: F Test: BILIRUBIN,DIRECT; Value: < 0.1; Range: 0.0-0.2; Units: MG/DL; Status: F Test: TOTAL PROTEIN; Value: 6.5; Range: 6.4-8.2; Units: GM/DL; Status: F Test: ALBUMIN; Value: 3.2; Range: 3.2-5.2; Units: GM/DL; Status: F Test: ALBUMIN/GLOBULIN RATIO; Value: 0.97; Range: 1.00-1.93; Abnormal: Below low normal; Status: F Lab Order: Lipase; SPEC'M 05/24/16 08:26 Test: LIPASE; Value: 45; Range: 73-393; Abnormal: Below low normal; Units: U/L; Status: F Lab Order: Amylase; SPEC'M 05/24/16 08:26 Test: AMYLASE; Value: 86; Range: 25-115; Units: U/L; Status: F Lab Order: Lactic Acid (Stone tube on ice); SPEC'M 05/24/16 08:23 Test: LACTIC ACID SEPSIS PROTOCOL; Value: 0.7; Range: 0.4-2.0; Units: MMOL/L; Status: F Lab Order: -Influenza A&B Rapid Antigen - Nose; SPEC'M 05/24/16 08:26 Test: INFLUENZA A RAPID SCR by ICA; Value: INFLUENZA A RESULTS NEGATIVE; Status: F Test: INFLUENZA A RAPID SCR by ICA; Value: Comments:; Status: F Test: INFLUENZA B RAPID SCR by ICA; Value: INFLUENZA B RESULTS NEGATIVE; Status: F Test Note: ; The Influenza test is a direct rapid immunoassay for the qualitative detection of Influenza viral antigen. Cell culture (Viral Culture) testing should be considered to confirm NEGATIVE results and to assist in detecting other viruses that can provide similar clinical symptoms. Please contact the lab within 24 [phone] if confirmatory testing is desired. Radiology Order: Chest, 1 View Test: Chest, 1 View REASON FOR EXAMINATION: wkness; AP PORTABLE CHEST: 05/24/2016 at 08:22 AM.; ; Comparison: Chest x-ray 05/08/2016, 04/24/2016.; ; History: Weakness.; ; Findings: Lungs are better inflated. There is some cardiomegaly with left atrial; enlargement and ventricular enlargement. Less vascular congestion than on the; previous study with only mild venous hypertension. Basilar fibrotic and/or; atelectatic change without dense consolidation or definite effusion. The aorta; is tortuous and calcified at the arch but unchanged. Airway midline. Pulmonary; arteries are prominent centrally.; ; Impression:; 1. Cardiomegaly with some mild venous hypertension but much improved vascular; congestion compared to the previous study.; ; 2. Bibasilar fibroatelectatic change without dense consolidation. 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 14:45 Admission hand-off: Report Faxed. 3 15:59 Discharge Assessment: patient administered narcotics - no. The following High Risk kc3 Discharge criteria are identified: None. Admitted to PCU accompanied by nurse, with oxygen, on monitor, with chart. Condition: stable. No special radiology studies were completed. Property :Personal belongings accompany Pt. 16:02 Patient left the ED. kc3 Signatures: Dispatcher [employer] EDAL Dawna Fernández MD MD ml Murray, Denise, Knot Tier Unit deg Nils Lowery, RN RN Norbert Coker RN RN mlb1 Fiordaliza Sam mm15 Jonathan Murphy, ROBERT THREAD CHECKER d Naomi Suarez,RN RN kc3 [facility]
[2016-05-24 16:20] VITALS: BP 131/61
[2016-05-24] MEDS ORDERED: GLUCOSE 4 GM CHEW TABLET PO PRN (16:45)
[2016-05-24] MEDS ORDERED: GLUCAGON FOR INJ 1 MG VIAL (J1610) SC PRN (16:45)
[2016-05-24] MEDS ORDERED: DEXTROSE 50% 50 ML SYRINGE IV PRN (16:45)
[2016-05-24 17:18] LABS: MAGNESIUM LEVEL 3.6 MG/DL (1.8-2.4)
[2016-05-24] MEDS: HumaLOG INSULIN (NovoLOG) PER UNIT SC SCH ×2 (17:30→20:26)
[2016-05-24] MEDS: PANTOPRAZOLE 40MG TAB (PROTONIX) PO SCH (17:45)
[2016-05-24] MEDS: MULTIVITAMINS/MINERALS THERAP 1 TAB PO SCH (17:45)
[2016-05-24] MEDS: predniSONE 5 MG TAB PO SCH (17:45)
[2016-05-24] MEDS: CLOPIDOGREL 75 MG TAB PO SCH (17:46)
[2016-05-24] MEDS: ASPIRIN 81 MG ENTERIC TAB PO SCH (17:46)
[2016-05-24] MEDS: MIRALAX *UNIT DOSE* 17GM PACKET PO SCH (17:46)
[2016-05-24] MEDS: ATORVASTATIN 20 MG TAB PO SCH (17:46)
[2016-05-24] MEDS: FEBUXOSTAT 40 MG TABLET (ULORIC) PO SCH (17:46)
[2016-05-24] MEDS: FLUCONAZOLE 100 MG TAB PO SCH (17:46)
[2016-05-24 20:00] VITALS: BP 120/48
[2016-05-24 21:21] LABS: CALCIUM LEVEL 8.2 MG/DL (8.8-10.2); CREATININE FOR GFR 5.62 MG/DL (0.70-1.30); GLOMERULAR FILTRATION RATE 10.4 (>35); MAGNESIUM LEVEL 2.6 MG/DL (1.8-2.4)
[2016-05-24 21:32] LABS: POTASSIUM SERUM 4.9 MEQ/L (3.5-5.1)
[2016-05-24 23:59] VITALS: BP 138/63
[2016-05-25 04:00] VITALS: BP 144/67
[2016-05-25 05:30] LABS: BASO % 0.5 % (0.0-1.0); EOS # 0.1 K/mm3 (0.0-0.50); EOS % 1.6 % (0.0-3.0); LARGE UNSTAINED CELL # 0.3 K/mm3 (0.0-0.4); LYMPH # 1.3 K/mm3 (1.5-4.5); LYMPH % 16.1 % (24.0-44.0); MEAN CORPUSCULAR HEMOGLOBIN 31.7 pg (27.0-33.0); MEAN CORPUSCULAR HGB CONC 31.2 g/dl (32.0-36.5); MEAN CORPUSCULAR VOLUME 101.7 fl (80.0-96.0); MONO # 0.5 K/mm3 (0.0-0.8); MONO % 6.1 % (0.0-5.0); NEUTROPHILS # 5.8 K/mm3 (1.8-7.7); NEUTROPHILS % 71.7 % (36.0-66.0); PLATELET COUNT, AUTOMATED 195 k/mm3 (150-450); RED CELL DISTRIBUTION WIDTH 14.8 % (11.5-14.5); WHITE BLOOD COUNT 8.1 K/mm3 (4.0-10.0)
[2016-05-25 05:35] LABS: ALBUMIN 2.8 GM/DL (3.2-5.2); CALCIUM LEVEL 8.7 MG/DL (8.8-10.2); CREATININE FOR GFR 6.11 MG/DL (0.70-1.30); GLOMERULAR FILTRATION RATE 9.5 (>35); PHOSPHORUS LEVEL 3.1 MG/DL (2.5-4.9); POTASSIUM SERUM 5.1 MEQ/L (3.5-5.1)
[2016-05-25 07:40] VITALS: BP 162/68
[2016-05-25] MEDS: ATORVASTATIN 20 MG TAB PO SCH (08:43)
[2016-05-25] MEDS: ASPIRIN 81 MG ENTERIC TAB PO SCH (08:43)
[2016-05-25] MEDS: GABAPENTIN 100 MG CAP PO SCH ×2 (08:43→20:25)
[2016-05-25] MEDS: DOCUSATE SODIUM 100 MG CAP PO SCH ×2 (08:43→20:25)
[2016-05-25] MEDS: CLOPIDOGREL 75 MG TAB PO SCH (08:43)
[2016-05-25] MEDS: MULTIVITAMINS/MINERALS THERAP 1 TAB PO SCH (08:43)
[2016-05-25] MEDS: PANTOPRAZOLE 40MG TAB (PROTONIX) PO SCH (08:43)
[2016-05-25] MEDS: predniSONE 5 MG TAB PO SCH (08:44)
[2016-05-25] MEDS: FEBUXOSTAT 40 MG TABLET (ULORIC) PO SCH (08:44)
[2016-05-25] MEDS: HumaLOG INSULIN (NovoLOG) PER UNIT SC SCH ×4 (08:44→20:21)
[2016-05-25] MEDS: METOPROLOL TART 50 MG TAB PO SCH ×2 (08:45→20:27)
[2016-05-25] MEDS: MIRALAX *UNIT DOSE* 17GM PACKET PO SCH (09:00)
--- NOTE | 2016-05-25 09:13 | IPNPDOC ---
Subjective General Date Seen The patient was seen on 05/25/16. Subjective Chief Complaint/HPI The patient is a 80-year-old male admitted with a reason for visit of Generalized Weakness; Hyperkalemia. General: Denies: Chills, Fatigue, Malaise, Night Sweats, Normal Appetite, Other Symptoms, ROS Unobtainable Constitutional: Denies: Chills, Fatigue, Fever, Lethargy, Malaise, Night Sweats , Other, Weakness, Weight Loss Eyes: Denies: Conjunctivae inflammation, Eyelid inflammation, Other, Pain, Redness, Vision change ENT: Denies: Dysphagia, Ear Pain, Epistaxis, Head Aches, Other Symptoms, Post Nasal Drip, Sinus Congestion, Sore Throat Skin: Denies: Breakdown, Bruising, Dry, Itching, Jaundice, Lesions, Nail Changes, Other, Rash Pulmonary: Denies: Cough, Dyspnea, Other Symptoms, Pleuritic Chest Pain Cardiovascular: Denies: Chest Pain, Edema, Lt Headedness, Orthopnea, Other Symptoms, Palpitations, Paroxysmal Noc. Dyspnea Gastrointestinal: Denies: Abdominal Pain, Constipation, Diarrhea, Hematochezia , Melena, Nausea, Other Symptoms, Vomiting Objective Physical Examination General Exam: Positive: Alert, Cooperative, No Acute Distress, Other Eye Exam: Positive: Conjunctiva & lids normal, PERRLA ENT Exam: Positive: Atraumatic Neck Exam: Positive: Supple Chest Exam: Positive: Clear to auscultation, Normal air movement Heart Exam: Positive: Rate Normal, Regular Rhythm Telemetry: Positive: No significant arrhythmia Abdomen Exam: Positive: Normal bowel sounds, Soft Extremity Exam: Positive: Cyanosis, Other (bilateral dry gangrenous metatarsals ) Skin Exam: Positive: Breakdown Psych Exam: Positive: Oriented x 3 Assessment /Plan Problems Problems: (1) Hyperkalemia Status: Acute Discussed With: Patient Problem Specific Plan: Consult Specialist, Monitor Clinically, Repeat Labs Problem Text: Dialysis yesterday. (2) Generalized weakness Status: Acute Response to Treatment: Progressing Discussed With: Patient Problem Specific Plan: Consult Specialist, Monitor Clinically, Repeat Labs, Repeat Tests Problem Text: Likely secondary to his uremia from non-compliance with hemodialysis. further complicated with extensive medical co-morbidities. Dialysed yesterday. States he missed his session. (3) Peripheral vascular disease Status: Chronic Problem Specific Plan: Monitor Clinically (4) Hypertension Status: Chronic Problem Specific Plan: Monitor Clinically (5) Hyperlipidemia Status: Chronic (6) Chronic respiratory failure with hypoxia Status: Chronic Response to Treatment: Stable Problem Specific Plan: Monitor Clinically (7) Diabetes Status: Chronic Problem Specific Plan: Monitor Clinically, Repeat Labs (8) COPD (chronic obstructive pulmonary disease) Status: Chronic Response to Treatment: Stable Problem Specific Plan: Monitor Clinically Problem Text: Requires 2L supplemental O2 at baseline. 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 Problem Specific Plan: Monitor Clinically (13) ESRD (end stage renal disease) Status: Chronic Problem Specific Plan: Consult Specialist, Monitor Clinically Plan/VTE VTE Prophylaxis Ordered?: Yes Plan Diet: Continue Current Activity: Continue Current Therapy: PT, OT Pt and Family Services: Other PFS Diagnostics: Repeat Labs in AM Anticipated Discharge: Sub Acute Rehab, Long Term Advance Directives: DNR VS, I&O, 24H, Rosario Vital Signs/I&O Vital Signs Date Time Temp Pulse Resp B/P Pulse Ox O2 Delivery O2 Flow Rate FiO2 05/25/16 08:45 65 162/68 05/25/16 04:00 96.5 18 99 Nasal Cannula 2.0 I&O- Last 24 Hours up to 6 AM 05/25/16 05:59 Intake Total 480 ml Output Total 2200 ml Balance -1720 ml Laboratory Data 24H LABS Laboratory Tests 2 05/24/16 16:35: Bedside Glucose (Misc Panel) 97 05/24/16 20:20: Bedside Glucose (Misc Panel) 168H 05/24/16 20:53: Anion Gap 10, Blood Urea Nitrogen 28#H, Creatinine 5.62H, Sodium Level 139, Potassium Level 4.9#, Chloride Level 99, Carbon Dioxide Level 30, Calcium Level 8.2L, Glomerular Filtration Rate 10.4L, Magnesium Level 2.6H 05/25/16 04:56: Anion Gap 11, Blood Urea Nitrogen 35H, Creatinine 6.11H, Sodium Level 141, Potassium Level 5.1, Chloride Level 102, Carbon Dioxide Level 28, Calcium Level 8.7L, Glomerular Filtration Rate 9.5L, Albumin 2.8L, White Blood Count 8.1, Red Blood Count 3.26L, Hemoglobin 10.4L, Hematocrit 33.2L, Mean Corpuscular Volume 101.7H, Mean Corpuscular Hemoglobin 31.7, Mean Corpuscular Hemoglobin Concent 31.2L, Red Cell Distribution Width 14.8H, Platelet Count 195, Neutrophils (%) ( Auto) 71.7H, Lymphocytes (%) (Auto) 16.1L, Monocytes (%) (Auto) 6.1H, Eosinophils (%) (Auto) 1.6, Basophils (%) (Auto) 0.5, Neutrophils # (Auto) 5.8, Lymphocytes # (Auto) 1.3L, Monocytes # (Auto) 0.5, Eosinophils # (Auto) 0.1, Basophils # (Auto) 0.0, Large Unclassified Cells # 0.3, Large Unclassified Cells % 4.0, Phosphorus Level 3.1 CBC/BMP Laboratory Tests 05/24/16 20:53 Calcium Level 8.2 L 05/25/16 04:56 Anion Gap 11, Red Blood Count 3.26 L, Mean Corpuscular Volume 101.7 H, Mean Corpuscular Hemoglobin 31.7, Mean Corpuscular Hemoglobin Concent 31.2 L, Red Cell Distribution Width 14.8 H, Neutrophils (%) (Auto) 71.7 H, Lymphocytes (%) ( Auto) 16.1 L, Monocytes (%) (Auto) 6.1 H, Eosinophils (%) (Auto) 1.6, Basophils (%) (Auto) 0.5, Neutrophils # (Auto) 5.8, Lymphocytes # (Auto) 1.3 L, Monocytes # (Auto) 0.5, Eosinophils # (Auto) 0.1, Basophils # (Auto) 0.0 Microbiology Microbiology 05/24/16 Blood Culture - Preliminary, Resulted No growth after 24 hours . All specim... 05/24/16 Blood Culture - Preliminary, Resulted No growth after 24 hours . All specim... 05/24/16 Influenza Virus Type A Antigen - Final, Complete 05/24/16 Influenza Virus Type B Antigen - Final, Complete MARGA COCHRAN MD May 25, 2016 09:13
[2016-05-25 12:00] VITALS: BP 124/58
[2016-05-25 16:00] VITALS: BP 124/60
[2016-05-25] MEDS: FLUCONAZOLE 100 MG TAB PO SCH (17:03)
[2016-05-25 23:59] VITALS: BP 124/62
[2016-05-26] MEDS: HumaLOG INSULIN (NovoLOG) PER UNIT SC SCH ×4 (01:10→21:08)
--- NOTE | 2016-05-26 01:29 | IPN ---
DATE: 05/25/2016 SUBJECTIVE: The patient was seen and examined at the bedside today in the morning. He does not have any active complaints. He was dialyzed yesterday. He had to be taken off early because of hypotension, but ultrafiltration was 2.2 liters. REVIEW OF SYSTEMS: Patient denies any fevers, chills, rigors, headache, nausea, vomiting, chest pain, shortness of breath, pain in the abdomen, constipation, or diarrhea. Patient does report weakness and inability to walk. All other review of systems are negative. OBJECTIVE: VITAL SIGNS: Temperature is 95.7degrees Fahrenheit, blood pressure is 162/68, pulse is 65, respiratory rate of 20, saturating 98% on nasal cannula at two liters per minute. Intake and output: Patient's fluid removal on hemodialysis was 2.2 liters yesterday. Weight in the bed scale is 92 kg. GENERAL: Patient is awake, alert, and oriented times three, lying in the bed watching TV in no apparent distress. HEAD AND NECK EXAM: Extraocular muscles are intact. Pupils equally round and reactive to light. Mucous membranes are moist. Neck is supple. There is no jugular venous distention (JVD). CARDIOVASCULAR: S1, S2 regular rate. No murmur, rub, or gallop. RESPIRATORY: Mild crepitations on deep respiration at the bases otherwise no rales or rhonchi. Bilaterally equal air entry. ABDOMEN: Soft. Positive bowel sounds. Nontender. No ascites. No organomegaly. EXTREMITIES: Patient has erythema of the left leg. He has dry skin, and he has 2+ edema of the bilateral lower extremities. Patient has dry gangrene of multiple toes on both feet. CENTRAL NERVOUS SYSTEM: Patient has resting tremors, otherwise he has no asterixis. He moves all four extremities. Power is 5/5. AV ACCESS: Patient has left upper arm AV graft with positive thrill and bruit. LAB REVIEW: CBC showed WBC 8.1, hemoglobin 10.4, platelets are 195. BMP showed sodium of 141, potassium 5.1, chloride 102, bicarbonate 28, BUN 35, creatinine 6.1, calcium is 8.7, albumin is 2.8. IMAGING: Chest x-ray done yesterday showed cardiomegaly with mild venous hypertension, but improved vascular congestion. CURRENT MEDICATIONS: Patient's medications were all reviewed by me. There is no significant change in the medications today. ASSESSMENT: 80-year-old male with past medical history of end-stage renal disease on hemodialysis every Thursday, and Thursday, multiple other comorbidities. He was admitted this time because of weakness, inability to walk, he missed two sessions of hemodialysis. He was hyperkalemic on admission. Patient was emergently dialyzed yesterday. PLAN: 1. End-stage renal disease. Patient missed two sessions of hemodialysis. He was emergently hemodialyzed yesterday, but he had to be taken off early because of low blood pressures. Patient will be dialyzed again tomorrow for more ultrafiltration if needed. 2. Hyperkalemia. Patient's potassium improved to 5.1 today. Continue low-potassium diet. 3. Generalized weakness and inability to walk. Patient has been admitted multiple times because of generalized weakness. He refuses to go to alf. Patient will probably benefit from an admission at a rehabilitation facility. 4. History of congestive heart failure and volume overload. Patient got hemodialysis done yesterday, two liters of ultrafiltration was done. If needed, patient will get another session of hemodialysis with ultrafiltration tomorrow morning. 5. Anemia and end-stage renal disease. Hemoglobin is 10.4. Patient will get a dose of Aranesp tomorrow with hemodialysis.
[2016-05-26 04:45] VITALS: BP 128/52
[2016-05-26 05:37] LABS: BASO # 0.1 K/mm3 (0.0-0.2); BASO % 0.7 % (0.0-1.0); EOS # 0.4 K/mm3 (0.0-0.50); EOS % 5.2 % (0.0-3.0); LARGE UNSTAINED CELL # 0.3 K/mm3 (0.0-0.4); LARGE UNSTAINED CELL % 3.7 % (0.0-4.0); LYMPH # 2.2 K/mm3 (1.5-4.5); LYMPH % 25.9 % (24.0-44.0); MEAN CORPUSCULAR HEMOGLOBIN 30.1 pg (27.0-33.0); MEAN CORPUSCULAR HGB CONC 29.4 g/dl (32.0-36.5); MEAN CORPUSCULAR VOLUME 102.4 fl (80.0-96.0); MONO # 0.6 K/mm3 (0.0-0.8); MONO % 7.5 % (0.0-5.0); NEUTROPHILS # 4.9 K/mm3 (1.8-7.7); PLATELET COUNT, AUTOMATED 232 k/mm3 (150-450); RED CELL DISTRIBUTION WIDTH 14.8 % (11.5-14.5); WHITE BLOOD COUNT 8.6 K/mm3 (4.0-10.0)
[2016-05-26 05:54] LABS: ALBUMIN 2.8 GM/DL (3.2-5.2); CALCIUM LEVEL 8.5 MG/DL (8.8-10.2); CREATININE FOR GFR 8.08 MG/DL (0.70-1.30); GLOMERULAR FILTRATION RATE 6.9 (>35); PHOSPHORUS LEVEL 4.5 MG/DL (2.5-4.9)
[2016-05-26 06:11] LABS: POTASSIUM SERUM 5.4 MEQ/L (3.5-5.1)
[2016-05-26] MEDS: FEBUXOSTAT 40 MG TABLET (ULORIC) PO SCH (06:36)
[2016-05-26] MEDS: ASPIRIN 81 MG ENTERIC TAB PO SCH (06:36)
[2016-05-26] MEDS: DOCUSATE SODIUM 100 MG CAP PO SCH ×2 (06:36→21:23)
[2016-05-26] MEDS: CLOPIDOGREL 75 MG TAB PO SCH (06:37)
[2016-05-26] MEDS: GABAPENTIN 100 MG CAP PO SCH ×2 (06:37→21:23)
[2016-05-26] MEDS: ATORVASTATIN 20 MG TAB PO SCH (06:37)
[2016-05-26] MEDS: PANTOPRAZOLE 40MG TAB (PROTONIX) PO SCH (06:37)
[2016-05-26] MEDS: MULTIVITAMINS/MINERALS THERAP 1 TAB PO SCH (06:37)
[2016-05-26] MEDS: predniSONE 5 MG TAB PO SCH (06:37)
[2016-05-26] MEDS: METOPROLOL TART 50 MG TAB PO SCH ×2 (07:53→21:23)
[2016-05-26] MEDS: MIRALAX *UNIT DOSE* 17GM PACKET PO SCH (07:54)
[2016-05-26 08:00] VITALS: BP 140/63
[2016-05-26] MEDS ORDERED: DARBEPOETIN 100 MCG/0.5 ML *DIALYSIS* SYRINGE (J0882) IV SCH (08:00)
--- NOTE | 2016-05-26 08:08 | IPNPDOC ---
Subjective General Date Seen The patient was seen on 05/26/16. Subjective Chief Complaint/HPI The patient is a 80-year-old male admitted with a reason for visit of Generalized Weakness; Hyperkalemia. General: Denies: Chills, Fatigue, Malaise, Night Sweats, Normal Appetite, Other Symptoms, ROS Unobtainable Constitutional: Denies: Chills, Fatigue, Fever, Lethargy, Malaise, Night Sweats , Other, Weakness, Weight Loss Eyes: Denies: Conjunctivae inflammation, Eyelid inflammation, Other, Pain, Redness, Vision change ENT: Denies: Dysphagia, Ear Pain, Epistaxis, Head Aches, Other Symptoms, Post Nasal Drip, Sinus Congestion, Sore Throat Pulmonary: Denies: Cough, Dyspnea, Other Symptoms, Pleuritic Chest Pain Cardiovascular: Denies: Chest Pain, Edema, Lt Headedness, Orthopnea, Other Symptoms, Palpitations, Paroxysmal Noc. Dyspnea Gastrointestinal: Denies: Abdominal Pain, Constipation, Diarrhea, Hematochezia , Melena, Nausea, Other Symptoms, Vomiting Objective Physical Examination General Exam: Positive: Alert, Cooperative, No Acute Distress, Other ( dissheveled, chronically ill appearing) Eye Exam: Positive: Conjunctiva & lids normal, PERRLA ENT Exam: Positive: Atraumatic Neck Exam: Positive: Supple Chest Exam: Positive: Clear to auscultation, Diminished Heart Exam: Positive: Rate Normal, Regular Rhythm Telemetry: Positive: No significant arrhythmia Abdomen Exam: Positive: Normal bowel sounds, Soft, Negative: Tenderness Extremity Exam: Positive: Cyanosis, Other (bilateral dry gangrenous metatarsals ) Skin Exam: Positive: Breakdown (LLE erythema) Psych Exam: Positive: Oriented x 3 Assessment /Plan Problems Problems: (1) Hyperkalemia Status: Acute Response to Treatment: Improving Discussed With: Patient Problem Specific Plan: Consult Specialist, Monitor Clinically, Repeat Labs Problem Text: No ECG changes; secondary to missed dialysis sessions. Dialysis today. (2) Generalized weakness Status: Acute Response to Treatment: Progressing Discussed With: Patient Problem Specific Plan: Consult Specialist, Monitor Clinically, Repeat Labs, Repeat Tests Problem Text: Acute on chronic, likely exacerbated from missing dialysis. Chronic secondary to his extensive medical co-morbidities. PT and OT. Generalized deconditioning would benefit from intermediate placement. Patient adamantly refusing. (3) Peripheral vascular disease Status: Chronic Problem Specific Plan: Monitor Clinically Problem Text: Chronic issues, stable at this time. (4) Hypertension Status: Chronic Problem Specific Plan: Monitor Clinically Problem Text: Beta blockade (5) Hyperlipidemia Status: Chronic Problem Text: Lipitor (6) Chronic respiratory failure with hypoxia Status: Chronic Response to Treatment: Stable Problem Specific Plan: Monitor Clinically (7) Diabetes Status: Chronic Problem Specific Plan: Monitor Clinically, Repeat Labs Problem Text: Insulin sliding scale (8) COPD (chronic obstructive pulmonary disease) Status: Chronic Response to Treatment: Stable Problem Specific Plan: Monitor Clinically Problem Text: Requires 2L supplemental O2 at baseline. (9) Pulmonary hypertension Status: Chronic Problem Specific Plan: Monitor Clinically (10) Gout Status: Chronic Problem Specific Plan: Monitor Clinically Problem Text: Continue Uloric, prednisone. (11) CAD (coronary artery disease) Status: Chronic Problem Specific Plan: Monitor Clinically Problem Text: Continue statin, beta sacha, ASA/Plavix. 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 Regular schedule T/R/S. Follow as per nephrology, assistance appreciated. (14) Anemia Status: Chronic Discussed With: Patient Problem Specific Plan: Monitor Clinically, Repeat Labs Problem Text: Received aranesp with dialysis yesterday. Plan/VTE VTE Prophylaxis Ordered?: Yes Plan Diet: Continue Current Activity: Continue Current Therapy: PT, OT Pt and Family Services: Home Care, Other PFS Diagnostics: Repeat Labs in AM Anticipated Discharge: Sub Acute Rehab, Prison Advance Directives: DNR Disposition Continue with renal replacement therapy. Plan to resume regular T/R/S schedule. Patient would greatly benefit from placement, but is not interested. Follow up with nephrology, PFS, PT and OT. Could likely transfer to med surg in 24-48 hours. VS, I&O, 24H, Fishbone Vital Signs/I&O Vital Signs Date Time Temp Pulse Resp B/P Pulse Ox O2 Delivery O2 Flow Rate FiO2 05/26/16 07:53 82 100/58 05/26/16 04:45 95.5 18 97 Nasal Cannula 2.0 I&O- Last 24 Hours up to 6 AM 05/26/16 06:00 Intake Total 600 ml Output Total 0 ml Balance 600 ml Laboratory Data 24H LABS Laboratory Tests 2 05/25/16 11:15: Bedside Glucose (Misc Panel) 85 05/25/16 16:19: Bedside Glucose (Misc Panel) 142H 05/25/16 20:18: Bedside Glucose (Misc Panel) 114H 05/26/16 05:00: Albumin 2.8L, Blood Urea Nitrogen 47H, Creatinine 8.08H, Sodium Level 142, Potassium Level 5.4H, Chloride Level 102, Carbon Dioxide Level 31, Anion Gap 9, White Blood Count 8.6, Red Blood Count 3.55L, Hemoglobin 10.7L, Hematocrit 36.3L , Mean Corpuscular Volume 102.4H, Mean Corpuscular Hemoglobin 30.1, Mean Corpuscular Hemoglobin Concent 29.4L, Red Cell Distribution Width 14.8H, Platelet Count 232, Neutrophils (%) (Auto) 57.0, Lymphocytes (%) (Auto) 25.9, Monocytes (%) (Auto) 7.5H, Eosinophils (%) (Auto) 5.2H, Basophils (%) (Auto) 0.7 , Neutrophils # (Auto) 4.9, Lymphocytes # (Auto) 2.2, Monocytes # (Auto) 0.6, Eosinophils # (Auto) 0.4, Basophils # (Auto) 0.1, Calcium Level 8.5L, Glomerular Filtration Rate 6.9L, Large Unclassified Cells # 0.3, Large Unclassified Cells % 3.7, Phosphorus Level 4.5# CBC/BMP Laboratory Tests 05/26/16 05:00 Anion Gap 9, Red Blood Count 3.55 L, Mean Corpuscular Volume 102.4 H, Mean Corpuscular Hemoglobin 30.1, Mean Corpuscular Hemoglobin Concent 29.4 L, Red Cell Distribution Width 14.8 H, Neutrophils (%) (Auto) 57.0, Lymphocytes (%) ( Auto) 25.9, Monocytes (%) (Auto) 7.5 H, Eosinophils (%) (Auto) 5.2 H, Basophils (%) (Auto) 0.7, Neutrophils # (Auto) 4.9, Lymphocytes # (Auto) 2.2, Monocytes # (Auto) 0.6, Eosinophils # (Auto) 0.4, Basophils # (Auto) 0.1 Microbiology Microbiology 05/24/16 Blood Culture - Preliminary, Resulted No growth after 24 hours . All specim... 05/24/16 Blood Culture - Preliminary, Resulted No growth after 24 hours . All specim... 05/24/16 Influenza Virus Type A Antigen - Final, Complete 05/24/16 Influenza Virus Type B Antigen - Final, Complete MARGA COCHRAN MD May 26, 2016 08:07
[2016-05-26] MEDS ORDERED: HEPARIN 1,000 UNITS/ML 10ML VIAL (FOR RADIOLOGY& DIALYSIS ONLY) IV ONE (11:00)
[2016-05-26] MEDS ORDERED: LIDOCAINE 1% SDV 5 ML VIAL SQ ONE (11:00)
[2016-05-26 16:00] VITALS: BP 142/78
--- NOTE | 2016-05-26 17:03 | EDDOCDS ---
Nurse's Notes [facility] Name: Nnamdi Gann Age: 80 yrs Sex: Male : 1935 Arrival Date: 05/24/2016 Time: 07:49 Bed 15 Private MD: Diagnosis: Weakness;Hyperkalemia;Gangrene, not elsewhere classified-left toes Presentation: 05/24 07:52 Presenting complaint: EMS states: Generalized weakness, missed dialysis on due mlb1 to weakness. The last date and time the patient was known to be well was was at an unknown time on an unknown date. No acute neurological deficit is noted. The patients blood glucose was checked before arriving to the hospital and was found to be normal. Adult Sepsis Screening: The patient does not have new or worsening altered mentation. Patient's respiratory rate is less than 22. Systolic blood pressure is greater than 100. Patient has a qSOFA score of 0- Negative Sepsis Screen. Suicide/Homicide risk assessment- the patient denies having any suicidal and/or homicidal ideations and does not present with any other emotional, behavioral or mental health complaints. Status: Patient is not a member service representative or dependent. Transition of care: patient was not received from another setting of care. Care prior to arrival: Glucose check. 145. 07:52 Acuity: SUJEY Level 3 mlb1 07:52 Method Of Arrival: Ambulance mlb1 Triage Assessment: 08:03 The onset of the patients symptoms was more than three hours ago. General: Appears mlb1 unkempt, Behavior is appropriate for age, cooperative. Pain: Denies pain. The patient is triaged at the bedside. See Assessment in Nurses Notes section of ED record. Neurological: Level of Consciousness is awake, alert, Oriented to person, place, time, Moves all extremities. Weakness Speech is normal, Facial symmetry appears normal. Cardiovascular: Edema pitting to left foot and right foot. Respiratory: Airway is patent Respiratory effort is even, unlabored. 11:22 Neurological: Reports weakness. kc3 Historical: - Allergies: no known allergies; - Home Meds: 1. hydrocodone-acetaminophen 5-325 mg Oral tab every 6 hours 2. Combivent Respimat 20-100 mcg/actuation inhalation mist 1 puff 4 times per day 3. aspirin 81 mg Oral tab 1 tab once daily 4. Lipitor 20 mg Oral tab 1 tab once daily 5. calcium carbonate 600 mg (1,500 mg) Oral tab 600 mg daily 6. clopidogrel 75 mg oral tab once daily 7. Vitamin D Oral 50,000 unit monthly 8. Uloric 40 mg oral tab 1 tab once daily 9. gabapentin 100 mg Oral tab twice a day 10. metoclopramide HCl 5 mg Oral tab three times a day as needed 11. metoprolol tartrate 50 mg Oral tab 1 tab 2 times per day 12. multivitamin Oral tab 1 tablet daily 13. pantoprazole 40 mg oral TbEC 1 tab 2 times per day 14. polyethylene glycol 3350 17 gram oral pwpk 1 packet once daily 15. prednisone 5 mg oral tab once daily 16. zolpidem 10 mg Oral tab 1 tab once daily 17. 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 No barriers to communication noted, The patient speaks fluent Swedish, Speaks appropriately for age. - Family history: Not pertinent. - : The pt / caregiver states he / she is on anticoagulants: Plavix. Home medication list is obtained from [employer] import data. - Exposure Risk Screening:: None identified. Screenin:13 Fall risk: At risk due to age, weakness. The following interventions are performed due mlb1 to a positive Fall Risk Screen: Fall Risk is added to Special Handling on the patient Summary Screen. A Fall Risk Bracelet was applied to the patient. Side Rails are placed in the up position. A Call [place] is given with instruction to call for help when getting out of bed. Fall Alert bracelet is placed on the patient. Assistance ADL's: Requires assistance with. Abuse/DV Screen: The patient / caregiver reports he/she is: not in a situation that causes fear, pain or injury. Nutritional screening: On. Advance Directives: There is an active DNR order and the pt has a copy here at this time. home support is adequate. 09:17 Screening information is obtained from the patient. kc3 Assessment: 08:41 General: Appears in no apparent distress, Behavior is cooperative. Pain: Denies pain. mlb1 Neurological: Level of Consciousness is awake, alert, Oriented to person, place, time, Moves all extremities. Weakness Full function Facial symmetry appears normal. Cardiovascular: Edema pitting to left foot and right foot Pulses pedal pulses present with Doppler. Respiratory: Airway is patent Respiratory effort is even, unlabored, Breath sounds are clear bilaterally. Derm: Skin is intact, Skin is dry, Skin is normal, Skin temperature is warm. 09:11 General: Appears in no apparent distress, comfortable, Behavior is appropriate for age, kc3 cooperative. Pain: Denies pain. Neurological: Level of Consciousness is awake, alert, obeys commands, Oriented to person, place, time. Neurological: Moves all extremities. Weakness Full function Facial symmetry appears normal. Cardiovascular: Rhythm is irregular. Respiratory: Respiratory effort is even, unlabored. Derm: Edema pitting to left and right foot. Pedal pulses present with doppler. Skin is black to tips of 1st toe on left foot, 1st, 2nd, 3rd toes on right foot. Skin is dry. Pt reports has not made urine in "last 3-4 days.". 10:26 General: Appears in no apparent distress, comfortable, to be sleeping. Behavior is kc3 appropriate for age, cooperative. Pain: Denies pain. Neurological: No deficits noted. Cardiovascular: Rhythm is sinus rhythm. Respiratory: Respiratory effort is even, unlabored. Derm: see previous note for documentation. 11:00 General: Pt transported to dialysis. . kc3 12:00 General: Pt remains in dialysis at this time. . kc3 13:00 General: Pt remains in dialysis at this time. . kc3 14:12 General: Pt remains in dialysis at this time. . kc3 15:00 General: Pt remains in dialysis at this time. . kc3 15:58 General: Appears in no apparent distress, comfortable, Behavior is appropriate for age, kc3 cooperative. Pain: Denies pain. Neurological: Level of Consciousness is awake, alert, obeys commands, Oriented to person, place, time. Respiratory: Respiratory effort is even, unlabored. Derm: See previous note for documentation. 16:01 General: Ramesh in dialysis reports took 2.1 kilos off of pt. . kc3 Vital Signs: 08:06 BP 156 / 65 RA Sitting (auto/reg); Pulse 73; Resp 18; Temp 99.0(TE); Pulse Ox 99% on 2 jrd lpm NC; Weight 94.8 kg (M); Height 5 ft. 4 in. (162.56 cm) (R); Pain 0/10; 08:12 Pulse 74 MON; Pulse Ox 99% ; kc3 08:13 BP 181 / 74 (auto/); kc3 08:42 Pulse 70 MON; Pulse Ox 99% ; kc3 08:43 BP 110 / 53 (auto/); kc3 08:57 Pulse 68 MON; Pulse Ox 98% ; kc3 08:58 BP 125 / 57 (auto/); kc3 09:12 Pulse 68 MON; Pulse Ox 98% ; kc3 09:13 BP 108 / 54 (auto/); kc3 09:43 BP 117 / 55 (auto/); kc3 09:43 Pulse 68 MON; Pulse Ox 99% ; kc3 09:58 BP 111 / 54 (auto/); kc3 09:58 Pulse 68 MON; Pulse Ox 98% ; kc3 10:13 BP 120 / 55 (auto/); kc3 10:13 Pulse 68 MON; Pulse Ox 98% ; kc3 10:27 Pulse 68 MON; Pulse Ox 99% 2 lpm ; kc3 10:28 BP 113 / 53 (auto/); kc3 15:53 BP 107 / 53; Pulse 78; Resp 20; Temp 99.1; Pulse Ox 97% on 3 lpm NC; Pain 0/10; jrd 08:06 Body Mass Index 35.87 (94.80 kg, 162.56 cm) jrd Vitals: 08:13 Glucose Measurement D-stick done by EMS. Log In Time N/A - ambulance arrival. mlb1 ED Course: 07:49 Patient visited by Renetta Holden, Water/Wastewater Project Manager. deg 07:49 Patient moved to Waiting deg 07:50 Patient moved to 15 deg 07:52 Patient visited by Norbert Rogers, PARRIS. mlb1 07:57 Triage Initiated mlb1 08:02 Dawna Fernández MD is Attending Physician. ml 08:02 Patient visited by Dawna Fernández MD. ml 08:06 Patient visited by Jonathan Murphy PCA. jrd 08:14 Patient visited by Norbert Rogers, RN. mlb1 08:17 Patient visited by Jonathan Murphy PCA. jrd 08:17 EKG done. (by ED staff). Reviewed by Dawna Fernández MD. jrd 08:39 BLOOD CULTURES Sent. mlb1 08:39 -Influenza A&B Rapid Antigen - Nose Sent. mlb1 08:39 -Blood Culture Sent. mlb1 08:39 Lactic Acid (Stone tube on ice) Sent. mlb1 08:39 Amylase Sent. mlb1 08:39 Lipase Sent. mlb1 08:39 Liver Profile Sent. mlb1 08:39 Troponin Sent. mlb1 08:39 CIP Sent. mlb1 08:39 MED Profile Sent. mlb1 08:39 CBC with Diff Sent. mlb1 08:39 Inserted saline lock: 20 gauge in right antecubital area and blood collected. The mlb1 patient tolerated the procedure well. Labs drawn. (by ED staff). Sent per order to lab. Labs/Blood culture drawn. 08:42 The patient / caregiver is instructed regarding the plan of care and ED course. Patient roberto has correct armband on for positive identification. Placed in gown. Bed in low position. Call light in reach. Side rails up X2. surveillance monitor on. Pulse ox on. NIBP on. 08:43 Patient visited by Norbert Rogers RN. mlb1 08:43 No procedures done that require assistance. mlb1 09:02 Naomi Suarez,RN is Primary Nurse. kc3 09:09 [facility] Payment Agreement was scanned into [employer] and attached to record. mm15 09:18 Patient visited by Naomi Suarez,PARRIS. kc3 09:39 Alin Hernandez is Hospitalizing Provider. ml 10:42 Chest, 1 View Returned. EDMS 13:27 EKG-ADULT Returned. EDMS 13:56 Patient moved to Admit Hold dy 15:30 Patient moved to 15 dy 15:55 Patient visited by Jonathan Murphy PCA. jrd 16:58 T-Sheet-- Draft Copy was scanned into [employer] and attached to record. klr 02 18:07 ECG/EKG was scanned into [employer] and attached to record. kf3 Order Results: Lab Order: CBC with Diff; SPEC'M 05/24/16 08:26 Test: WHITE BLOOD COUNT; Value: 11.1; Range: 4.0-10.0; Abnormal: Above high normal; Units: K/mm3; Status: F Test: RED BLOOD COUNT; Value: 3.61; Range: 4.30-6.10; Abnormal: Below low normal; Units: M/mm3; Status: F Test: HEMOGLOBIN; Value: 11.0; Range: 14.0-18.0; Abnormal: Below low normal; Units: g/dl; Status: F Test: HEMATOCRIT; Value: 37.5; Range: 42.0-52.0; Abnormal: Below low normal; Units: %; Status: F Test: MEAN CORPUSCULAR VOLUME; Value: 104.1; Range: 80.0-96.0; Abnormal: Above high normal; Units: fl; Status: F Test: MEAN CORPUSCULAR HEMOGLOBIN; Value: 30.5; Range: 27.0-33.0; Units: pg; Status: F Test: MEAN CORPUSCULAR HGB CONC; Value: 29.3; Range: 32.0-36.5; Abnormal: Below low normal; Units: g/dl; Status: F Test: RED CELL DISTRIBUTION WIDTH; Value: 15.2; Range: 11.5-14.5; Abnormal: Above high normal; Units: %; Status: F Test: PLATELET COUNT, AUTOMATED; Value: 219; Range: 150-450; Units: k/mm3; Status: F Test: NEUTROPHILS %; Value: 74.5; Range: 36.0-66.0; Abnormal: Above high normal; Units: %; Status: F Test: LYMPH %; Value: 11.1; Range: 24.0-44.0; Abnormal: Below low normal; Units: %; Status: F Test: MONO %; Value: 6.7; Range: 0.0-5.0; Abnormal: Above high normal; Units: %; Status: F Test: EOS %; Value: 5.0; Range: 0.0-3.0; Abnormal: Above high normal; Units: %; Status: F Test: BASO %; Value: 0.7; Range: 0.0-1.0; Units: %; Status: F Test: LARGE UNSTAINED CELL %; Value: 2.0; Range: 0.0-4.0; Units: %; Status: F Test: NEUTROPHILS #; Value: 8.3; Range: 1.8-7.7; Abnormal: Above high normal; Units: K/mm3; Status: F Test: LYMPH #; Value: 1.5; Range: 1.5-4.5; Units: K/mm3; Status: F Test: MONO #; Value: 0.7; Range: 0.0-0.8; Units: K/mm3; Status: F Test: EOS #; Value: 0.6; Range: 0.0-0.50; Abnormal: Above high normal; Units: K/mm3; Status: F Test: BASO #; Value: 0.1; Range: 0.0-0.2; Units: K/mm3; Status: F Test: LARGE UNSTAINED CELL #; Value: 0.2; Range: 0.0-0.4; Units: K/mm3; Status: F Lab Order: MED Profile; SPEC'M 05/24/16 08:26 Test: GLUCOSE, FASTING; Value: 138; Range: 83-110; Abnormal: Above high normal; Units: MG/DL; Status: F Test: BLOOD UREA NITROGEN; Value: 63; Range: 7-18; Abnormal: Above high normal; Units: MG/DL; Status: F Test: CREATININE FOR GFR; Value: 9.77; Range: 0.70-1.30; Abnormal: Above high normal; Units: MG/DL; Status: F Test: GLOMERULAR FILTRATION RATE; Value: 5.5; Range: >35; Abnormal: Below low normal; Status: F Test: SODIUM LEVEL; Value: 140; Range: 136-145; Units: MEQ/L; Status: F Test: POTASSIUM SERUM; Value: 6.6; Range: 3.5-5.1; Abnormal: Above upper panic limits; Units: MEQ/L; Status: F Test: CHLORIDE LEVEL; Value: 103; Range: 98-107; Units: MEQ/L; Status: F Test: CARBON DIOXIDE LEVEL; Value: 28; Range: 21-32; Units: MEQ/L; Status: F Test: ANION GAP; Value: 9; Range: 8-16; Units: MEQ/L; Status: F Test: CALCIUM LEVEL; Value: 8.8; Range: 8.8-10.2; Units: MG/DL; Status: F Test Note: ; Units are mL/min/1.73 m2 Chronic Kidney Disease Staging per NKF: Stage I & II GFR >=60 Normal to Mildly Decreased Stage III GFR 30-59 Moderately Decreased Stage IV GFR 15-29 Severely Decreased Stage V GFR <15 Very Little GFR Left ESRD GFR <15 on GAMBLING CASHIER Lab Order: CIP; SPEC'05/24/16 08:26 Test: CPK CREATINE PHOSPHOKINASE; Value: 51; Range: 39-308; Units: U/L; Status: F Test: CK-MB VALUE MASS; Value: 2.3; Range: 0.0-3.6; Units: NG/ML; Status: F Test: MB/CK RELATIVE INDEX; Value: 4.50; Range: < OR =4; Abnormal: Above high normal; Status: F Test Note: ; DIAGNOSIS CRITERIA MMB ng/ml Relative Index (RI) NON-AMI < or = 5 N/A STONE ZONE > 5 < or = 4 AMI > 5 > 4 Lab Order: Troponin; SPEC05/24/16 08:26 Test: TROPONIN I; Value: < 0.02; Range: < 0.10; Units: NG/ML; Status: F Test Note: ; Troponin I Reference Interval for [employer] LOCI: 99th Percentile= 0.00-0.045 ng/ml Risk Stratification: <= 0.10 ng/ml Decreased Risk for Adverse Clinical Events. 0.10-1.50 ng/ml Increased Risk for Adverse Clinical Events. Evaluation of additional criterion and/or repeat testing in 2-6 hours is suggested to rule out myocardial damage. >= 1.50 ng/ml Indicative of Myocardial Injury. Lab Order: Liver Profile; SPEC'05/24/16 08:26 Test: AST/SGOT; Value: 15; Range: 15-37; Units: U/L; Status: F Test: ALT/SGPT; Value: 13; Range: 12-78; Units: U/L; Status: F Test: ALKALINE PHOSPHATASE; Value: 78; Range: 45-117; Units: U/L; Status: F Test: BILIRUBIN,TOTAL; Value: 0.4; Range: 0.2-1.0; Units: MG/DL; Status: F Test: BILIRUBIN,DIRECT; Value: < 0.1; Range: 0.0-0.2; Units: MG/DL; Status: F Test: TOTAL PROTEIN; Value: 6.5; Range: 6.4-8.2; Units: GM/DL; Status: F Test: ALBUMIN; Value: 3.2; Range: 3.2-5.2; Units: GM/DL; Status: F Test: ALBUMIN/GLOBULIN RATIO; Value: 0.97; Range: 1.00-1.93; Abnormal: Below low normal; Status: F Lab Order: Lipase; SPEC'M 05/24/16 08:26 Test: LIPASE; Value: 45; Range: 73-393; Abnormal: Below low normal; Units: U/L; Status: F Lab Order: Amylase; SPEC'M 05/24/16 08:26 Test: AMYLASE; Value: 86; Range: 25-115; Units: U/L; Status: F Lab Order: Lactic Acid (Stone tube on ice); SPEC'M 05/24/16 08:23 Test: LACTIC ACID SEPSIS PROTOCOL; Value: 0.7; Range: 0.4-2.0; Units: MMOL/L; Status: F Lab Order: -Influenza A&B Rapid Antigen - Nose; SPEC'M 05/24/16 08:26 Test: INFLUENZA A RAPID SCR by ICA; Value: INFLUENZA A RESULTS NEGATIVE; Status: F Test: INFLUENZA A RAPID SCR by ICA; Value: Comments:; Status: F Test: INFLUENZA B RAPID SCR by ICA; Value: INFLUENZA B RESULTS NEGATIVE; Status: F Test Note: ; The Influenza test is a direct rapid immunoassay for the qualitative detection of Influenza viral antigen. Cell culture (Viral Culture) testing should be considered to confirm NEGATIVE results and to assist in detecting other viruses that can provide similar clinical symptoms. Please contact the lab within 24 hours ([phone]) if confirmatory testing is desired. Radiology Order: Chest, 1 View Test: Chest, 1 View REASON FOR EXAMINATION: wkness; AP PORTABLE CHEST: 05/24/2016 at 08:22 AM.; ; Comparison: Chest x-ray 05/08/2016, 04/24/2016.; ; History: Weakness.; ; Findings: Lungs are better inflated. There is some cardiomegaly with left atrial; enlargement and ventricular enlargement. Less vascular congestion than on the; previous study with only mild venous hypertension. Basilar fibrotic and/or; atelectatic change without dense consolidation or definite effusion. The aorta; is tortuous and calcified at the arch but unchanged. Airway midline. Pulmonary; arteries are prominent centrally.; ; Impression:; 1. Cardiomegaly with some mild venous hypertension but much improved vascular; congestion compared to the previous study.; ; 2. Bibasilar fibroatelectatic change without dense consolidation. No gross; effusion.; ; Unreviewed; Radiology Order: EKG-ADULT Test: EKG-ADULT REASON FOR EXAMINATION: wkness; Stationary ECG Study; 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 14:45 Admission hand-off: Report Faxed. [facility] 15:59 Discharge Assessment: patient administered narcotics - no. The following High Risk [facility] Discharge criteria are identified: None. Admitted to PCU accompanied by nurse, with oxygen, on monitor, with chart. Condition: stable. No special radiology studies were completed. Property :Personal belongings accompany Pt. 16:02 Patient left the ED. [facility] Signatures: Dispatcher [employer] EDTX Dawna Fernández MD MD ml Murray, Denise, Water/Wastewater Project Manager Unit deg Nils Lowery RN RN dy Barney, Michael B, RN RN mlb1 Emil Wheat, Reg Reg kf3 Fiordaliza Sam mm15 Jonathan Murphy, ROTARY SWAGING MACHINE OPERATOR ROTARY SWAGING MACHINE OPERATOR jrd Naomi Suarez RN RN kc3 Indy Poe Chart Complete MTDD
--- NOTE | 2016-05-26 17:03 | EDDOCDS ---
Physician Documentation [facility] Name: Nnamdi Rodriguez Age: 80 yrs Sex: Male : 1935 Arrival Date: 05/24/2016 Time: 07:49 Bed 15 Private MD: Disposition: 05/24/16 09:39 Hospitalization ordered by Alin Hernandez for Inpatient Admission. Preliminary diagnosis are Weakness, Hyperkalemia, Gangrene, not elsewhere classified - left toes. - Bed requested for PCU. - Status is Inpatient Admission. kc3 - Condition is Stable. - Problem is new. - Symptoms are unchanged. Historical: - Allergies: no known allergies; - Home Meds: 1. hydrocodone-acetaminophen 5-325 mg Oral tab every 6 hours 2. Combivent Respimat 20-100 mcg/actuation inhalation mist 1 puff 4 times per day 3. aspirin 81 mg Oral tab 1 tab once daily 4. Lipitor 20 mg Oral tab 1 tab once daily 5. calcium carbonate 600 mg (1,500 mg) Oral tab 600 mg daily 6. clopidogrel 75 mg oral tab once daily 7. Vitamin D Oral 50,000 unit monthly 8. Uloric 40 mg oral tab 1 tab once daily 9. gabapentin 100 mg Oral tab twice a day 10. metoclopramide HCl 5 mg Oral tab three times a day as needed 11. metoprolol tartrate 50 mg Oral tab 1 tab 2 times per day 12. multivitamin Oral tab 1 tablet daily 13. pantoprazole 40 mg oral TbEC 1 tab 2 times per day 14. polyethylene glycol 3350 17 gram oral pwpk 1 packet once daily 15. prednisone 5 mg oral tab once daily 16. zolpidem 10 mg Oral tab 1 tab once daily 17. atorvastatin 20 mg oral tab 1 tab once daily - PMHx: Chronic Renal Failure with dialysis; COPD; Diabetes - IDDM: uncontrolled; GERD; Hypercholesterolemia; Hypertension; NV; AAA; - PSHx: cardiac stents.; Dialysis Graft Construction, Arm; - Social history: Smoking status: unknown if patient ever smoked tobacco. No barriers to communication noted, The patient speaks fluent Faroese, Speaks appropriately for age. - Family history: Not pertinent. - : The pt / caregiver states he / she is on anticoagulants: Plavix. Home medication list is obtained from [facility] import data. - Exposure Risk Screening:: None identified. Vital Signs: 05/24 08:06 BP 156 / 65 RA Sitting (auto/reg); Pulse 73; Resp 18; Temp 99.0(TE); Pulse Ox 99% on 2 jrd lpm NC; Weight 94.8 kg / 209 lbs (M); Height 5 ft. 4 in. (162.56 cm) (R); Pain 0/10; 08:12 Pulse 74 MON; Pulse Ox 99% ; kc3 08:13 BP 181 / 74 (auto/); kc3 08:42 Pulse 70 MON; Pulse Ox 99% ; kc3 08:43 BP 110 / 53 (auto/); kc3 08:57 Pulse 68 MON; Pulse Ox 98% ; kc3 08:58 BP 125 / 57 (auto/); kc3 09:12 Pulse 68 MON; Pulse Ox 98% ; kc3 09:13 BP 108 / 54 (auto/); kc3 09:43 BP 117 / 55 (auto/); kc3 09:43 Pulse 68 MON; Pulse Ox 99% ; kc3 09:58 BP 111 / 54 (auto/); kc3 09:58 Pulse 68 MON; Pulse Ox 98% ; kc3 10:13 BP 120 / 55 (auto/); kc3 10:13 Pulse 68 MON; Pulse Ox 98% ; kc3 10:27 Pulse 68 MON; Pulse Ox 99% 2 lpm ; kc3 10:28 BP 113 / 53 (auto/); kc3 15:53 BP 107 / 53; Pulse 78; Resp 20; Temp 99.1; Pulse Ox 97% on 3 lpm NC; Pain 0/10; jrd 08:06 Body Mass Index 35.87 (94.80 kg, 162.56 cm) jr MDM: 08:12 IV Saline Lock ordered. ml 08:12 Night Auditor/Pulse Ox/q 15 min VS ordered. ml 08:12 Rhythm Strip to chart ordered. ml 08:12 -Blood Culture (Adults Only), peripheral from different site, or from device/port/PICC ml etc. if present ordered. 08:12 CBC with Diff Ordered. EDMS 08:12 MED Profile Ordered. EDMS 08:12 CIP Ordered. EDMS 08:12 Troponin Ordered. EDMS 08:12 Liver Profile Ordered. EDMS 08:12 Lipase Ordered. EDMS 08:12 Amylase Ordered. EDMS 08:12 Lactic Acid (Stone tube on ice) Ordered. EDMS 08:12 -Blood Culture Ordered. EDMS 08:12 UA Ordered. EDMS 08:12 Urine Culture Ordered. EDMS 08:14 -Blood Culture (Adults Only), peripheral from different site, or from device/port/PICC deg etc. if present complete. 08:14 Misc. Nursing Order ordered. ml 08:14 Chest, 1 View Ordered. EDMS 08:15 Obtain sample by nasopharyngeal swab ordered. ml 08:15 ECG WITH READING ER PHYS+CARDIAG ordered. EDMS 08:15 BLOOD CULTURES Ordered. EDMS 08:15 -Influenza A&B Rapid Antigen - Nose Ordered. EDMS 09:09 Financial registration complete. mm15 09:09 [facility] Payment Agreement was scanned into [employer] and attached to record. mm15 09:23 CBC with Diff Reviewed. ml 09:23 Lactic Acid (Stone tube on ice) Reviewed. ml 09:23 -Influenza A&B Rapid Antigen - Nose Reviewed. ml 09:30 MED Profile Reviewed. ml 09:30 CIP Reviewed. ml 09:30 Liver Profile Reviewed. ml 09:30 Lipase Reviewed. ml 09:30 Troponin Reviewed. ml 09:30 Amylase Reviewed. ml 09:32 BED REQUEST+ADM ordered. EDMS 09:37 Admission / Observation Status ordered. EDMS 09:58 PHYSICAL THERAPY EVAL & TREAT ordered. EDMS 10:00 CONSISTENT CARBOHYDRATES ordered. EDMS 16:58 T-Sheet-- Draft Copy was scanned into [employer] and attached to record. r 02 18:07 ECG/EKG was scanned into [employer] and attached to record. kf3 Signatures: Dispatcher [employer] [facility] MD MD ml Murray, Denise, Kidney Puller Unit deg Norbert Rogers RN RN mlb1 Emil Wheat, Reg Reg kf3 Fiordaliza Sam mm15 Naomi Suarez,RN RN kc3 Indy Poe The chart was reviewed and I authenticate all verbal orders and agree with the evaluation and treatment provided.Attachments: 05/24 09:09 [facility] Payment Agreement mm15 16:58 T-Sheet-- Draft Copy r 05/25 18:07 ECG/EKG kf3 Chart Complete MTDD
--- NOTE | 2016-05-26 17:03 | EDDOCDS ---
Physician Documentation [facility] Name: Nnamdi Rodriguez Age: 80 yrs Sex: Male : 1935 Arrival Date: 05/24/2016 Time: 07:49 Bed 15 Private MD: Disposition: 05/24/16 09:39 Hospitalization ordered by Alin Hernandez for Inpatient Admission. Preliminary diagnosis are Weakness, Hyperkalemia, Gangrene, not elsewhere classified - left toes. - Bed requested for PCU. - Status is Inpatient Admission. kc3 - Condition is Stable. - Problem is new. - Symptoms are unchanged. Historical: - Allergies: no known allergies; - Home Meds: 1. hydrocodone-acetaminophen 5-325 mg Oral tab every 6 hours 2. Combivent Respimat 20-100 mcg/actuation inhalation mist 1 puff 4 times per day 3. aspirin 81 mg Oral tab 1 tab once daily 4. Lipitor 20 mg Oral tab 1 tab once daily 5. calcium carbonate 600 mg (1,500 mg) Oral tab 600 mg daily 6. clopidogrel 75 mg oral tab once daily 7. Vitamin D Oral 50,000 unit monthly 8. Uloric 40 mg oral tab 1 tab once daily 9. gabapentin 100 mg Oral tab twice a day 10. metoclopramide HCl 5 mg Oral tab three times a day as needed 11. metoprolol tartrate 50 mg Oral tab 1 tab 2 times per day 12. multivitamin Oral tab 1 tablet daily 13. pantoprazole 40 mg oral TbEC 1 tab 2 times per day 14. polyethylene glycol 3350 17 gram oral pwpk 1 packet once daily 15. prednisone 5 mg oral tab once daily 16. zolpidem 10 mg Oral tab 1 tab once daily 17. atorvastatin 20 mg oral tab 1 tab once daily - PMHx: Chronic Renal Failure with dialysis; COPD; Diabetes - IDDM: uncontrolled; GERD; Hypercholesterolemia; Hypertension; AK; AAA; - PSHx: cardiac stents.; Dialysis Graft Construction, Arm; - Social history: Smoking status: unknown if patient ever smoked tobacco. No barriers to communication noted, The patient speaks fluent Romansh, Speaks appropriately for age. - Family history: Not pertinent. - : The pt / caregiver states he / she is on anticoagulants: Plavix. Home medication list is obtained from [employer] import data. - Exposure Risk Screening:: None identified. Vital Signs: 05/24 08:06 BP 156 / 65 RA Sitting (auto/reg); Pulse 73; Resp 18; Temp 99.0(TE); Pulse Ox 99% on 2 jrd lpm NC; Weight 94.8 kg / 209 lbs (M); Height 5 ft. 4 in. (162.56 cm) (R); Pain 0/10; 08:12 Pulse 74 MON; Pulse Ox 99% ; kc3 08:13 BP 181 / 74 (auto/); kc3 08:42 Pulse 70 MON; Pulse Ox 99% ; kc3 08:43 BP 110 / 53 (auto/); kc3 08:57 Pulse 68 MON; Pulse Ox 98% ; kc3 08:58 BP 125 / 57 (auto/); kc3 09:12 Pulse 68 MON; Pulse Ox 98% ; kc3 09:13 BP 108 / 54 (auto/); kc3 09:43 BP 117 / 55 (auto/); kc3 09:43 Pulse 68 MON; Pulse Ox 99% ; kc3 09:58 BP 111 / 54 (auto/); kc3 09:58 Pulse 68 MON; Pulse Ox 98% ; kc3 10:13 BP 120 / 55 (auto/); kc3 10:13 Pulse 68 MON; Pulse Ox 98% ; kc3 10:27 Pulse 68 MON; Pulse Ox 99% 2 lpm ; kc3 10:28 BP 113 / 53 (auto/); kc3 15:53 BP 107 / 53; Pulse 78; Resp 20; Temp 99.1; Pulse Ox 97% on 3 lpm NC; Pain 0/10; jrd 08:06 Body Mass Index 35.87 (94.80 kg, 162.56 cm) jr MDM: 08:12 IV Saline Lock ordered. ml 08:12 Emblem Cutter/Pulse Ox/q 15 min VS ordered. ml 08:12 Rhythm Strip to chart ordered. ml 08:12 -Blood Culture (Adults Only), peripheral from different site, or from device/port/PICC ml etc. if present ordered. 08:12 CBC with Diff Ordered. EDMS 08:12 MED Profile Ordered. EDMS 08:12 CIP Ordered. EDMS 08:12 Troponin Ordered. EDMS 08:12 Liver Profile Ordered. EDMS 08:12 Lipase Ordered. EDMS 08:12 Amylase Ordered. EDMS 08:12 Lactic Acid (Stone tube on ice) Ordered. EDMS 08:12 -Blood Culture Ordered. EDMS 08:12 UA Ordered. EDMS 08:12 Urine Culture Ordered. EDMS 08:14 -Blood Culture (Adults Only), peripheral from different site, or from device/port/PICC deg etc. if present complete. 08:14 Misc. Nursing Order ordered. ml 08:14 Chest, 1 View Ordered. EDMS 08:15 Obtain sample by nasopharyngeal swab ordered. ml 08:15 ECG WITH READING ER PHYS+CARDIAG ordered. EDMS 08:15 BLOOD CULTURES Ordered. EDMS 08:15 -Influenza A&B Rapid Antigen - Nose Ordered. EDMS 09:09 Financial registration complete. mm15 09:09 [facility] Payment Agreement was scanned into [employer] and attached to record. mm15 09:23 CBC with Diff Reviewed. ml 09:23 Lactic Acid (Stone tube on ice) Reviewed. ml 09:23 -Influenza A&B Rapid Antigen - Nose Reviewed. ml 09:30 MED Profile Reviewed. ml 09:30 CIP Reviewed. ml 09:30 Liver Profile Reviewed. ml 09:30 Lipase Reviewed. ml 09:30 Troponin Reviewed. ml 09:30 Amylase Reviewed. ml 09:32 BED REQUEST+ADM ordered. EDMS 09:37 Admission / Observation Status ordered. EDMS 09:58 PHYSICAL THERAPY EVAL & TREAT ordered. EDMS 10:00 CONSISTENT CARBOHYDRATES ordered. EDMS 16:58 T-Sheet-- Draft Copy was scanned into [employer] and attached to record. r 02 18:07 ECG/EKG was scanned into [employer] and attached to record. kf3 Signatures: Dispatcher [employer] [facility] MD MD ml Murray, Denise, Abrasive Coating Machine Operator Unit deg Norbert Rogers RN RN mlb1 Emil Wheat, Reg Reg kf3 Fiordaliza Sam mm15 Naomi Suarez,RN RN kc3 Indy Poe The chart was reviewed and I authenticate all verbal orders and agree with the evaluation and treatment provided.Attachments: 05/24 09:09 [facility] Payment Agreement mm15 16:58 T-Sheet-- Draft Copy r 05/25 18:07 ECG/EKG kf3 Chart Complete MTDD
--- NOTE | 2016-05-26 17:13 | IPN ---
DATE: 05/26/2016 Mr. Rodriguez is seen this morning during hemodialysis. He was admitted with generalized weakness and missed dialysis treatment. He also had hyperkalemia. His last dialysis was performed on Thursday. At this time, the patient denies any dyspnea, chest pain, nausea or vomiting. He is still quite weak and unable to get up and ambulate on his own. PHYSICAL EXAMINATION: Temperature 95.4 degrees Fahrenheit, heart rate 64 per minute and respiratory rate 18 per minute. Blood pressure 140/63 mmHg and oxygen saturation 98% on 2 liters of oxygen. Head is atraumatic. Ears, nose and throat are unremarkable. Neck is supple and without any thyroid enlargement. His neck veins are mildly distended. Heart sounds are irregular in rhythm. Lungs have diminished breath sounds at bases and bibasilar crepitations are present. Abdomen is soft and nontender. Bowel sounds are normal. Extremities have no cyanosis or clubbing. Skin has chronic gangrenous changes on his toes and both feet. There is no evidence of cellulitis. Neurologically, he is awake, alert and oriented times three. Today's labs show hemoglobin 10.7, hematocrit 36.3. WBC count 8.6. Sodium 142 and potassium 5.4. Chloride is 102, CO2 31, BUN 47 and creatinine 8.08. Glucose 137, calcium 8.5 and phosphorus 4.5. PROBLEMS: 1. End-stage renal disease. The patient is being dialyzed again today due to his missed dialysis treatments last week. He had only a 2-hour treatment on Thursday. We will dialyze him for 3 hours today and then get him back on his regular schedule of Thursday, and Thursday. 2. Hyperkalemia. This is mild and related to end-stage renal disease and missed dialysis treatments. The patient is being dialyzed for 3 hours today with a low potassium bath. His hyperkalemia is likely to be completely corrected. 3. Anemia. His anemia is stable at this point and does not need any intervention. 4. Generalized weakness and deconditioning. I have discussed with the patient about need for subacute rehabilitation, and he seems to be accepting now, while previously he has been declining any conversation about the longterm. I do not feel that the patient will be safe to go home. 5. Generalized vascular disease. This is a chronic and stable issue. At this point, we will continue with all his chronic medications. He remains on aspirin and Plavix in addition to Lipitor which will be continued.
[2016-05-26] MEDS: FLUCONAZOLE 100 MG TAB PO SCH (17:18)
[2016-05-26] MEDS: NORCO, ANEXSIA 5/325MG TABLET (HYDROcodone/ACETAMINOPHEN) PO PRN (17:50)
[2016-05-26 19:54] VITALS: BP 118/58
[2016-05-26 21:22] VITALS: BP 143/66
[2016-05-26] MEDS: HEPARIN SOD (PORCINE) 5000 UNITS/ML VIAL SQ SCH (21:24)
[2016-05-26 23:59] VITALS: BP 148/60
[2016-05-27 04:13] VITALS: BP 139/64
[2016-05-27] MEDS: METOCLOPRAMIDE 5 MG TAB PO PRN (04:41)
[2016-05-27 05:59] LABS: BASO # 0.1 K/mm3 (0.0-0.2); BASO % 0.8 % (0.0-1.0); EOS # 0.6 K/mm3 (0.0-0.50); EOS % 6.6 % (0.0-3.0); LARGE UNSTAINED CELL # 0.2 K/mm3 (0.0-0.4); LARGE UNSTAINED CELL % 2.5 % (0.0-4.0); LYMPH # 2.7 K/mm3 (1.5-4.5); LYMPH % 28.3 % (24.0-44.0); MEAN CORPUSCULAR HEMOGLOBIN 31.1 pg (27.0-33.0); MEAN CORPUSCULAR HGB CONC 30.2 g/dl (32.0-36.5); MEAN CORPUSCULAR VOLUME 103.2 fl (80.0-96.0); MONO # 0.9 K/mm3 (0.0-0.8); MONO % 10.3 % (0.0-5.0); NEUTROPHILS # 4.4 K/mm3 (1.8-7.7); NEUTROPHILS % 51.4 % (36.0-66.0); PLATELET COUNT, AUTOMATED 203 k/mm3 (150-450); RED CELL DISTRIBUTION WIDTH 15.2 % (11.5-14.5); WHITE BLOOD COUNT 8.6 K/mm3 (4.0-10.0)
[2016-05-27 06:20] VITALS: BP 141/63
[2016-05-27] MEDS: ATORVASTATIN 20 MG TAB PO SCH (06:24)
[2016-05-27] MEDS: FEBUXOSTAT 40 MG TABLET (ULORIC) PO SCH (06:24)
[2016-05-27] MEDS: MIRALAX *UNIT DOSE* 17GM PACKET PO SCH (06:24)
[2016-05-27] MEDS: PANTOPRAZOLE 40MG TAB (PROTONIX) PO SCH (06:24)
[2016-05-27] MEDS: GABAPENTIN 100 MG CAP PO SCH ×2 (06:24→21:31)
[2016-05-27] MEDS: MULTIVITAMINS/MINERALS THERAP 1 TAB PO SCH (06:25)
[2016-05-27] MEDS: ASPIRIN 81 MG ENTERIC TAB PO SCH (06:25)
[2016-05-27] MEDS: predniSONE 5 MG TAB PO SCH (06:25)
[2016-05-27] MEDS: CLOPIDOGREL 75 MG TAB PO SCH (06:25)
[2016-05-27] MEDS: DOCUSATE SODIUM 100 MG CAP PO SCH ×2 (06:25→21:31)
[2016-05-27 06:26] LABS: ALBUMIN 2.8 GM/DL (3.2-5.2); CALCIUM LEVEL 8.2 MG/DL (8.8-10.2); CREATININE FOR GFR 5.43 MG/DL (0.70-1.30); GLOMERULAR FILTRATION RATE 10.9 (>35); POTASSIUM SERUM 4.3 MEQ/L (3.5-5.1)
[2016-05-27] MEDS: HEPARIN SOD (PORCINE) 5000 UNITS/ML VIAL SQ SCH ×2 (06:26→21:31)
[2016-05-27] MEDS: NORCO, ANEXSIA 5/325MG TABLET (HYDROcodone/ACETAMINOPHEN) PO PRN ×2 (07:41→14:19)
[2016-05-27] MEDS: HumaLOG INSULIN (NovoLOG) PER UNIT SC SCH ×4 (07:41→20:30)
[2016-05-27 07:50] VITALS: BP 131/59
[2016-05-27] MEDS: METOPROLOL TART 50 MG TAB PO SCH ×2 (10:32→21:31)
[2016-05-27 12:10] VITALS: BP 135/61
[2016-05-27] MEDS: FLUCONAZOLE 100 MG TAB PO SCH (17:10)
[2016-05-27 18:30] VITALS: BP 148/76
--- NOTE | 2016-05-27 19:17 | IPN ---
DATE: 05/27/2016 Mr. Rodriguez is feeling well today. He has no chest pain. Is not short of breath. Has tolerated a diet. Is considering subacute rehabilitation. Temperature is 95.5, pulse 68, respiratory rate 20, blood pressure 135/61, 99% on 2 liters. Intake and output notable for a negative fluid balance of -1040. Weight is 90.8 kg, body mass index 34.4. He is awake, appropriately interactive. Pleasant and conversant. Remembers me from previous encounters. Breathing is symmetrical and rested. Heart is distant sounding. Normal S1, S2. Abdomen soft, doughy, nontender. White cell count 8.6, hemoglobin 10.9. Creatinine is 5.43. ASSESSMENT: This is an 80-year-old with end-stage renal disease, on hemodialysis. PLAN: 1. Patient has had dialysis. Creatinine is improved. Hyperkalemia has improved. At this point, he could benefit from subacute rehabilitation or placement in order to make his outpatient dialysis appointments. 2. Patient has peripheral vascular disease. 3. 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 Did discuss this in person with Dr. Bass, as it looks similar to his past.
[2016-05-27 22:00] VITALS: BP 140/82
[2016-05-28 06:00] VITALS: BP 139/78
[2016-05-28 06:15] LABS: BASO # 0.1 K/mm3 (0.0-0.2); EOS # 0.6 K/mm3 (0.0-0.50); EOS % 6.8 % (0.0-3.0); LARGE UNSTAINED CELL # 0.4 K/mm3 (0.0-0.4); LARGE UNSTAINED CELL % 4.8 % (0.0-4.0); LYMPH # 2.4 K/mm3 (1.5-4.5); LYMPH % 27.3 % (24.0-44.0); MEAN CORPUSCULAR HEMOGLOBIN 31.5 pg (27.0-33.0); MEAN CORPUSCULAR HGB CONC 31.1 g/dl (32.0-36.5); MEAN CORPUSCULAR VOLUME 101.5 fl (80.0-96.0); MONO # 0.8 K/mm3 (0.0-0.8); MONO % 9.5 % (0.0-5.0); NEUTROPHILS # 4.5 K/mm3 (1.8-7.7); NEUTROPHILS % 50.5 % (36.0-66.0); PLATELET COUNT, AUTOMATED 220 k/mm3 (150-450); RED CELL DISTRIBUTION WIDTH 14.8 % (11.5-14.5); WHITE BLOOD COUNT 8.8 K/mm3 (4.0-10.0)
[2016-05-28 06:23] LABS: ALBUMIN 2.8 GM/DL (3.2-5.2); CALCIUM LEVEL 8.6 MG/DL (8.8-10.2); CREATININE FOR GFR 7.1 MG/DL (0.70-1.30); PHOSPHORUS LEVEL 3.8 MG/DL (2.5-4.9); POTASSIUM SERUM 4.7 MEQ/L (3.5-5.1)
--- NOTE | 2016-05-28 06:58 | IPN ---
DATE: 05/27/2016 Mr. Rodriguez is seen this morning on his bedside. He is sitting in the recliner chair at the time of my visit. The patient underwent hemodialysis yesterday which he tolerated very well. He reports no particular complaints today. He does get short of breath when he ambulates. There is no nausea or vomiting reported and no fever or chills. PHYSICAL EXAMINATION: Temperature 96.1 degrees Fahrenheit, heart rate 68 per minute and respiratory rate 20 per minute. Blood pressure 131/59 mmHg and oxygen saturation 98% on 2 liters oxygen. His head is atraumatic. Pupils are equal and reactive to light and sclera is anicteric. Ears, nose and throat are unremarkable. Neck is supple and without any jugular venous distention (JVD) or thyroid enlargement. Heart: Sounds are regular and lungs with few basilar crackles. Abdomen: Soft and nontender and without palpable organomegaly. Bowel sounds are normal. Extremities have no cyanosis or clubbing. Skin has chronic ischemic changes on his toes. Neurologically he is awake, alert and oriented times three. Today's labs show WBC count 8.6, hemoglobin 10.9, hematocrit 36.0 and platelets 203. Sodium 140 and potassium 4.3. BUN 27 and creatinine 5.43. PROBLEMS: 1. Generalized weakness. Weakness has improved to a certain extent. However, he is chronically deconditioned. I have discussed with the patient at length about need for subacute rehab and he seems to be accepting it now. I will have social media campaign manager talk to patient further. 2. Hyperkalemia. His potassium level has improved and it is normal now. Most likely hyperkalemia was also contributing to his generalized weakness. 3. End-stage renal disease. The patient was dialyzed yesterday and we will plan to dialyze him again on . At this point, volume status is well-compensated and electrolytes are within normal range. There is no need for urgent hemodialysis today. 4. Anemia. His anemia is chronic and stable. No intervention is indicated. DISPOSITION: From renal standpoint, the patient can be transferred to regular medical floor.
[2016-05-28] MEDS: MIRALAX *UNIT DOSE* 17GM PACKET PO SCH (08:31)
[2016-05-28] MEDS: HumaLOG INSULIN (NovoLOG) PER UNIT SC SCH ×4 (08:32→20:18)
[2016-05-28] MEDS: METOPROLOL TART 50 MG TAB PO SCH ×2 (08:33→20:30)
[2016-05-28] MEDS: ASPIRIN 81 MG ENTERIC TAB PO SCH (08:33)
[2016-05-28] MEDS: predniSONE 5 MG TAB PO SCH (08:33)
[2016-05-28] MEDS: MULTIVITAMINS/MINERALS THERAP 1 TAB PO SCH (08:33)
[2016-05-28] MEDS: CLOPIDOGREL 75 MG TAB PO SCH (08:33)
[2016-05-28] MEDS: ATORVASTATIN 20 MG TAB PO SCH (08:33)
[2016-05-28] MEDS: PANTOPRAZOLE 40MG TAB (PROTONIX) PO SCH (08:33)
[2016-05-28] MEDS: FEBUXOSTAT 40 MG TABLET (ULORIC) PO SCH (08:33)
[2016-05-28] MEDS: GABAPENTIN 100 MG CAP PO SCH ×2 (08:34→20:30)
[2016-05-28] MEDS: HEPARIN SOD (PORCINE) 5000 UNITS/ML VIAL SQ SCH ×2 (08:34→20:29)
[2016-05-28] MEDS: DOCUSATE SODIUM 100 MG CAP PO SCH ×2 (08:34→20:29)
[2016-05-28] MEDS: NORCO, ANEXSIA 5/325MG TABLET (HYDROcodone/ACETAMINOPHEN) PO PRN ×2 (08:37→15:11)
[2016-05-28 14:00] VITALS: BP 160/72
[2016-05-28] MEDS: FLUCONAZOLE 100 MG TAB PO SCH (17:03)
--- NOTE | 2016-05-28 17:30 | IPN ---
DATE: 05/28/2016 SUBJECTIVE: Mr. Rodriguez is feeling well today. He has no complaints of pain, chest pain, shortness of breath. Is willing to consider subacute rehabilitation to get stronger. OBJECTIVE: VITAL SIGNS: Temperature is 96.3, pulse 68, respiratory rate 17, blood pressure 139/78, 98% on two liters. Intake and output notable for positive fluid balance of 600. Weight 100.7 kg. No bowel movements noted yesterday. GENERAL: He is awake, appropriately interactive. Pleasantly conversant. LUNGS: Breathing is symmetrical and rested. HEART: Is in a regular rate and rhythm. Distant sounding normal S1, S2. ABDOMEN: Soft, doughy, nontender. LABORATORY DATA: White cell count 8.8, hemoglobin 11, and platelets of 220. BUN 39, creatinine 7.1. MICROBIOLOGY: Blood culture negative at 72 hours. Influenza swab is negative. ASSESSMENT: An 80-year-old with end-stage renal disease on hemodialysis. PLAN: 1. End-stage renal disease on hemodialysis. The patient has been unable to make it to outpatient dialysis based on debility. At this point, he is considering subacute rehabilitation. Hyperkalemia has resolved with dialysis. I have discussed this case in person with Dr. Bass today. 2. The patient has peripheral vascular disease. 3. The patient has dry gangrene bilateral lower extremities, which is stable.
[2016-05-28 22:00] VITALS: BP 157/69
[2016-05-29] MEDS: MIRALAX *UNIT DOSE* 17GM PACKET PO SCH (05:50)
[2016-05-29] MEDS: HEPARIN SOD (PORCINE) 5000 UNITS/ML VIAL SQ SCH ×2 (05:50→20:19)
[2016-05-29] MEDS: DOCUSATE SODIUM 100 MG CAP PO SCH (05:51)
[2016-05-29] MEDS: ATORVASTATIN 20 MG TAB PO SCH (05:51)
[2016-05-29] MEDS: predniSONE 5 MG TAB PO SCH (05:51)
[2016-05-29] MEDS: ASPIRIN 81 MG ENTERIC TAB PO SCH (05:51)
[2016-05-29] MEDS: CLOPIDOGREL 75 MG TAB PO SCH (05:51)
[2016-05-29] MEDS: MULTIVITAMINS/MINERALS THERAP 1 TAB PO SCH (05:51)
[2016-05-29] MEDS: PANTOPRAZOLE 40MG TAB (PROTONIX) PO SCH (05:51)
[2016-05-29] MEDS: FEBUXOSTAT 40 MG TABLET (ULORIC) PO SCH (05:51)
[2016-05-29] MEDS: GABAPENTIN 100 MG CAP PO SCH ×2 (05:51→20:19)
[2016-05-29] MEDS: METOPROLOL TART 50 MG TAB PO SCH ×2 (05:52→20:20)
[2016-05-29 06:00] VITALS: BP 144/67
--- NOTE | 2016-05-29 06:39 | IPN ---
DATE: 05/28/2016 Mr. Rodriguez is seen this morning on his bedside. He has a complaint of pain in his right big toe, but otherwise feels well. He denies any dyspnea, chest pain, nausea, vomiting, fever or chills. He is not able to ambulate due to weakness and pain in his toes. At times, he has been declining to participate in physical therapy. PHYSICAL EXAMINATION: Temperature 96.4 degrees Fahrenheit, heart rate 62 per minute and respiratory rate 18 per minute. Blood pressure 160/72 mmHg and oxygen saturation 96%. Head is atraumatic. Pupils are equal and reactive to light and sclera is anicteric. Neck is supple and without any jugular venous distention (JVD) or thyroid enlargement. Oral mucosa is moist and without any thrush or ulcers. Heart: Sounds are regular and lungs with few basilar crackles. Abdomen is soft and nontender and without a palpable organomegaly. Bowel sounds are normal. Extremities have no cyanosis or clubbing. His skin has no rash or ulcers. On his toes, he has gangrenous changes which are unchanged. Neurologically he is awake, alert and oriented times three. Today's labs show WBC count 8.8, hemoglobin 11.0 and hematocrit 35.4. Platelets 220. Sodium 141, potassium 4.7. BUN is 39 and creatinine 7.10. Calcium 8.6 and phosphorus 3.8. PROBLEMS: 1. End-stage renal disease. The patient was last dialyzed on Thursday. His regular dialysis days are Thursday, and Thursday and we will plan to dialyze him tomorrow. Today his electrolytes are stable and volume status is still reasonable. There is no emergent need for dialysis today. 2. Hyperkalemia. His potassium level has corrected with last hemodialysis treatment and so far he has normal potassium level. He will remain on 2 grams potassium diet. 3. Anemia. His anemia has been only mild and stable. No intervention is indicated at this point. 4. Generalized weakness and inability to ambulate. This is a chronic issue which has worsened over last few weeks. I have discussed with the patient at length about possibility for subacute rehab in [facility]. He seems to be agreeable now. I do not feel that he has many choices as he was unable to even get in the vehicle for transportation to dialysis clinic. 5. Shortness of breath and hypoxemia. This a chronic issue related to chronic obstructive pulmonary disease (COPD) and congestive heart failure. At present, his volume status is reasonable and we will try to remove about 3 liters fluid with next hemodialysis tomorrow.
[2016-05-29 07:01] LABS: ALBUMIN 2.8 GM/DL (3.2-5.2); CALCIUM LEVEL 8.9 MG/DL (8.8-10.2); CREATININE FOR GFR 8.39 MG/DL (0.70-1.30); GLOMERULAR FILTRATION RATE 6.6 (>35); PHOSPHORUS LEVEL 4.2 MG/DL (2.5-4.9)
[2016-05-29 07:02] LABS: POTASSIUM SERUM 5.3 MEQ/L (3.5-5.1)
[2016-05-29 07:15] LABS: BASO # 0.1 K/mm3 (0.0-0.2); BASO % 0.9 % (0.0-1.0); EOS # 0.5 K/mm3 (0.0-0.50); EOS % 4.6 % (0.0-3.0); LARGE UNSTAINED CELL # 0.5 K/mm3 (0.0-0.4); LARGE UNSTAINED CELL % 4.9 % (0.0-4.0); LYMPH # 2.7 K/mm3 (1.5-4.5); LYMPH % 26.5 % (24.0-44.0); MEAN CORPUSCULAR HEMOGLOBIN 31.6 pg (27.0-33.0); MEAN CORPUSCULAR HGB CONC 30.6 g/dl (32.0-36.5); MEAN CORPUSCULAR VOLUME 103.4 fl (80.0-96.0); MONO % 9.5 % (0.0-5.0); NEUTROPHILS # 5.4 K/mm3 (1.8-7.7); NEUTROPHILS % 53.6 % (36.0-66.0); PLATELET COUNT, AUTOMATED 241 k/mm3 (150-450); WHITE BLOOD COUNT 10.1 K/mm3 (4.0-10.0)
[2016-05-29] MEDS: HumaLOG INSULIN (NovoLOG) PER UNIT SC SCH ×4 (08:01→20:20)
[2016-05-29] MEDS ORDERED: HEPARIN 1,000 UNITS/ML 10ML VIAL (FOR RADIOLOGY& DIALYSIS ONLY) IV ONE (10:30)
[2016-05-29] MEDS ORDERED: LIDOCAINE 1% SDV 5 ML VIAL SC ONE (10:45)
[2016-05-29 14:00] VITALS: BP 144/64
--- NOTE | 2016-05-29 14:52 | IPN ---
DATE: 05/29/2016 Mr. Rodriguez is seen this morning during hemodialysis. He has been feeling well. He denies any nausea, vomiting, dyspnea or chest pain. He continues to have tremors of his hands and has difficulty in feeding himself. PHYSICAL EXAMINATION: On physical examination, temperature 96.4 degrees Fahrenheit, heart rate 60 per minute and respiratory rate 16 per minute. Blood pressure 144/67 mmHg and oxygen saturation 100% on two liters oxygen. Head is atraumatic. Ears, nose and throat are unremarkable. Neck is supple and without any jugular venous distention (JVD) or thyroid enlargement. Trachea is midline. Heart sounds are regular. Lungs clear to auscultation. Abdomen is soft and nontender and without a palpable organomegaly. Bowel sounds are normal. Extremities have no cyanosis or clubbing. His left arm arteriovenous (AV) fistula is patent. Neurologically, he is awake, alert and oriented times three. There is no focal deficit. LABORATORY DATA: Today's laboratories show WBC count 10.1, hemoglobin 11.0 and hematocrit 36.0. Platelets 241. Sodium 141 and potassium 5.3. BUN 51 and creatinine 8.39. Calcium level is 8.9 and phosphorus 4.2. PROBLEMS: 1. End-stage renal disease. The patient is being dialyzed today. He will receive his full dialysis treatment for 3-1/2 hours. We will try to remove about three liters of fluid as tolerated. 2. Hyperkalemia. This is mild and related to end-stage renal disease. The patient did not have dialysis since Thursday. We are dialyzing him with 2.0 mEq potassium bath and his potassium level will be corrected. 3. Congestive heart failure. At present, his volume status is very well compensated and he seems to be at his baseline. 4. Anemia. This has not been an issue and anemia is stable. No intervention is indicated at this point. 5. Generalized weakness and deconditioning. The patient did agree with subacute rehabilitation. Patient and family services are aware. He is very weak and has been unable to even get in the car to come for dialysis. I do not feel that he has any other options other than subacute rehabilitation and possible halfway placement.
[2016-05-29 15:15] VITALS: BP 136/60
[2016-05-29] MEDS: METOCLOPRAMIDE 5 MG TAB PO PRN ×2 (15:35→19:47)
[2016-05-29] MEDS: NORCO, ANEXSIA 5/325MG TABLET (HYDROcodone/ACETAMINOPHEN) PO PRN (15:39)
[2016-05-29] MEDS: FLUCONAZOLE 100 MG TAB PO SCH (17:28)
--- NOTE | 2016-05-29 18:55 | IPN ---
DATE: 05/29/2016 No issues noted overnight by staff. The patient has no complaints, did tolerate dialysis . Temperature is 96.9, pulse 67, respiratory rate 20, blood pressure 136/60 96% on 2 liters. Intake and output notable for a positive fluid balance yesterday of 1320 mL. No bowel movements today or yesterday. He is awake, appropriately interactive, pleasantly conversant. No acute distress. Breathing is symmetrical, diminished, speaking in complete sentences. No accessory muscle use. Heart is distant sounding. Normal S1, S2. Abdomen is soft, doughy, nontender. White cell count is 10.1, hemoglobin 11 and platelets of 241. BUN this morning was 51 over 8.3 with potassium of 5.3. ASSESSMENT: This is an 80-year-old with end-stage renal disease - on hemodialysis. PLAN: 1. The patient has end-stage renal disease - on hemodialysis. The patient has recurrent hyperkalemia, which will be resolved with dialysis today. 2. The patient has peripheral vascular disease. 3. The patient has dry gangrene bilateral lower extremities, which is stable. 4. The patient has constipation, which will be addressed with a bowel regimen. 5. The patient has a history of congestive heart failure, diastolic dysfunction, which is compensated. 6. The patient has chronic hypoxic respiratory failure, on home oxygen. 7. The patient has diabetes. 8. The patient has gout. MTDD
[2016-05-29] MEDS: SENOKOT S TAB PO SCH (20:19)
[2016-05-29 22:00] VITALS: BP 148/61
[2016-05-30 06:00] VITALS: BP 143/60
[2016-05-30 06:11] LABS: BASO # 0.1 K/mm3 (0.0-0.2); BASO % 0.9 % (0.0-1.0); EOS # 0.6 K/mm3 (0.0-0.50); LARGE UNSTAINED CELL # 0.6 K/mm3 (0.0-0.4); LARGE UNSTAINED CELL % 5.7 % (0.0-4.0); LYMPH # 2.9 K/mm3 (1.5-4.5); LYMPH % 28.2 % (24.0-44.0); MEAN CORPUSCULAR HEMOGLOBIN 31.9 pg (27.0-33.0); MEAN CORPUSCULAR HGB CONC 31.2 g/dl (32.0-36.5); MEAN CORPUSCULAR VOLUME 102.2 fl (80.0-96.0); MONO # 0.7 K/mm3 (0.0-0.8); MONO % 7.3 % (0.0-5.0); NEUTROPHILS # 5.2 K/mm3 (1.8-7.7); NEUTROPHILS % 51.9 % (36.0-66.0); PLATELET COUNT, AUTOMATED 254 k/mm3 (150-450); RED CELL DISTRIBUTION WIDTH 15.5 % (11.5-14.5); WHITE BLOOD COUNT 10.1 K/mm3 (4.0-10.0)
[2016-05-30 06:24] LABS: ALBUMIN 2.9 GM/DL (3.2-5.2); CALCIUM LEVEL 8.9 MG/DL (8.8-10.2); CREATININE FOR GFR 6.16 MG/DL (0.70-1.30); GLOMERULAR FILTRATION RATE 9.4 (>35); PHOSPHORUS LEVEL 3.1 MG/DL (2.5-4.9); POTASSIUM SERUM 4.4 MEQ/L (3.5-5.1)
[2016-05-30] MEDS: HEPARIN SOD (PORCINE) 5000 UNITS/ML VIAL SQ SCH ×2 (08:44→20:13)
[2016-05-30] MEDS: HumaLOG INSULIN (NovoLOG) PER UNIT SC SCH ×4 (08:44→20:06)
[2016-05-30] MEDS: MIRALAX *UNIT DOSE* 17GM PACKET PO SCH (08:44)
[2016-05-30] MEDS: PANTOPRAZOLE 40MG TAB (PROTONIX) PO SCH (08:45)
[2016-05-30] MEDS: CLOPIDOGREL 75 MG TAB PO SCH (08:45)
[2016-05-30] MEDS: predniSONE 5 MG TAB PO SCH (08:45)
[2016-05-30] MEDS: GABAPENTIN 100 MG CAP PO SCH ×2 (08:45→20:12)
[2016-05-30] MEDS: ASPIRIN 81 MG ENTERIC TAB PO SCH (08:45)
[2016-05-30] MEDS: ATORVASTATIN 20 MG TAB PO SCH (08:45)
[2016-05-30] MEDS: METOPROLOL TART 50 MG TAB PO SCH ×2 (08:45→20:13)
[2016-05-30] MEDS: MULTIVITAMINS/MINERALS THERAP 1 TAB PO SCH (08:45)
[2016-05-30] MEDS: SENOKOT S TAB PO SCH ×2 (08:45→20:12)
[2016-05-30] MEDS: FEBUXOSTAT 40 MG TABLET (ULORIC) PO SCH (08:46)
[2016-05-30] MEDS ORDERED: INSUHUMDS SC ×2 (09:48)
[2016-05-30] MEDS ORDERED: VARIBAR PUDDING 40% w/v 230ML TUBE As Ordered ONE (09:56)
[2016-05-30] MEDS ORDERED: E-Z PAQUE 60% w/v SUSP 355ML BOTTLE As Ordered ONE (09:57)
[2016-05-30] MEDS ORDERED: VARIBAR NECTAR 40% w/v 240ML SUSP BTL As Ordered ONE (09:57)
--- NOTE | 2016-05-30 12:45 | REP ---
Clinical: Rule out aspiration. Technique: Real time fluoroscopic evaluation in conjunction with speech pathology. Findings: Real time fluoroscopic examination demonstrates silent aspiration with nectar-thick barium substrate. Total fluoroscopic time 51 seconds. Impression: Silent aspiration. Signed by Ramesh Mc MD 05/30/2016 12:37 P
[2016-05-30 14:00] VITALS: BP 132/60
[2016-05-30] MEDS: NORCO, ANEXSIA 5/325MG TABLET (HYDROcodone/ACETAMINOPHEN) PO PRN ×2 (15:35→21:49)
--- NOTE | 2016-05-30 16:03 | IPN ---
DATE: 05/30/2016 Mr. Rodriguez was noted to have some difficulty swallowing yesterday. He had been on a modified diet previously, which he had discontinued at home. Was seen by speech therapy today and had a swallow evaluation and was found to need a modified diet. Unfortunately today, we thought the patient had a bed available to him at [facility] ([facility]) which for unclear reasons the bed offer was rescinded and for now the patient will stay in the hospital. He will be made ALC. Temperature is 97, pulse 60, respiratory rate 16, blood pressure 142/60, 98% on 2 liters. Intake and output (I and O) notable for negative fluid balance of -2520. Weight is 99.9 kg with body mass index 37.8. He is awake and appropriately interactive. Pleasantly conversant. Breathing is symmetrical and rested. Heart is distant sounding, normal S1, S2. Abdomen is soft, doughy, nontender. He has normal mood and affect. White cell count 10.1, hemoglobin 11, and platelets of 254. BUN 27, creatinine 6.16. ASSESSMENT: This is an 80-year-old with end-stage renal disease on hemodialysis. PLAN: 1. The patient has end-stage renal disease, better when he receives dialysis. At home he has been unable to make his dialysis appointments. He has had recurrent hyperkalemia and volume overload. He seems to be relatively stable today. 2. The patient has impaired swallow and diet has been adjusted to reflect that. I have discussed this case by phone with speech therapy. 3. The patient has dry gangrene bilateral lower extremities which is stable. 4. The patient has constipation, which appears to be improving. 5. The patient has congestive heart failure, diastolic dysfunction which is compensated. 6. Chronic hypoxic respiratory failure, on home oxygen. 7. The patient has diabetes. 8. The patient has gout. 9. I did discuss this case in person with Dr. Bass. 10. This patient was discussed at length at multidisciplinary rounds.
[2016-05-30] MEDS: FLUCONAZOLE 100 MG TAB PO SCH (18:25)
[2016-05-30 22:00] VITALS: BP 145/65
[2016-05-31 06:00] VITALS: BP 150/64
[2016-05-31 06:05] LABS: CALCIUM LEVEL 9.2 MG/DL (8.8-10.2); CREATININE FOR GFR 7.82 MG/DL (0.70-1.30); GLOMERULAR FILTRATION RATE 7.1 (>35); PHOSPHORUS LEVEL 4.2 MG/DL (2.5-4.9)
[2016-05-31 06:26] LABS: MEAN CORPUSCULAR HEMOGLOBIN 32.5 pg (27.0-33.0); MEAN CORPUSCULAR HGB CONC 31.2 g/dl (32.0-36.5); MEAN CORPUSCULAR VOLUME 104.2 fl (80.0-96.0); PLATELET COUNT, AUTOMATED 248 k/mm3 (150-450); WHITE BLOOD COUNT 11.4 K/mm3 (4.0-10.0)
[2016-05-31 06:29] LABS: EOSINOPHILS 7 % (0-5)
[2016-05-31 06:30] LABS: ANISOCYTOSIS 1+; HYPOCHROMASIA 2+; PLATELET CLUMPS SMALL AMT
[2016-05-31] MEDS: predniSONE 5 MG TAB PO SCH (06:34)
[2016-05-31] MEDS: CLOPIDOGREL 75 MG TAB PO SCH (06:35)
[2016-05-31] MEDS: GABAPENTIN 100 MG CAP PO SCH ×2 (06:35→21:14)
[2016-05-31] MEDS: MIRALAX *UNIT DOSE* 17GM PACKET PO SCH (06:35)
[2016-05-31] MEDS: MULTIVITAMINS/MINERALS THERAP 1 TAB PO SCH (06:35)
[2016-05-31] MEDS: ATORVASTATIN 20 MG TAB PO SCH (06:35)
[2016-05-31] MEDS: ASPIRIN 81 MG ENTERIC TAB PO SCH (06:35)
[2016-05-31] MEDS: HEPARIN SOD (PORCINE) 5000 UNITS/ML VIAL SQ SCH ×2 (06:35→21:14)
[2016-05-31] MEDS: SENOKOT S TAB PO SCH ×2 (06:35→21:14)
[2016-05-31] MEDS: FEBUXOSTAT 40 MG TABLET (ULORIC) PO SCH (06:35)
[2016-05-31] MEDS: PANTOPRAZOLE 40MG TAB (PROTONIX) PO SCH (06:35)
[2016-05-31] MEDS: HumaLOG INSULIN (NovoLOG) PER UNIT SC SCH ×4 (07:31→21:00)
[2016-05-31] MEDS: NORCO, ANEXSIA 5/325MG TABLET (HYDROcodone/ACETAMINOPHEN) PO PRN ×2 (07:32→22:00)
[2016-05-31] MEDS: METOPROLOL TART 50 MG TAB PO SCH ×2 (07:32→21:15)
[2016-05-31] MEDS: ACETAMINOPHEN 325 MG TAB PO PRN (09:31)
[2016-05-31] MEDS ORDERED: LIDOCAINE 1% SDV 5 ML VIAL SQ ONE (11:15)
[2016-05-31] MEDS ORDERED: HEPARIN 1,000 UNITS/ML 10ML VIAL (FOR RADIOLOGY& DIALYSIS ONLY) IV ONE (11:15)
[2016-05-31] MEDS: FLUCONAZOLE 100 MG TAB PO SCH (18:09)
[2016-06-01 06:00] VITALS: BP 137/65
[2016-06-01] MEDS: HumaLOG INSULIN (NovoLOG) PER UNIT SC SCH ×4 (07:30→21:00)
[2016-06-01] MEDS: MIRALAX *UNIT DOSE* 17GM PACKET PO SCH (09:00)
[2016-06-01] MEDS: FEBUXOSTAT 40 MG TABLET (ULORIC) PO SCH (10:09)
[2016-06-01] MEDS: GABAPENTIN 100 MG CAP PO SCH ×2 (10:09→22:13)
[2016-06-01] MEDS: ATORVASTATIN 20 MG TAB PO SCH (10:09)
[2016-06-01] MEDS: MULTIVITAMINS/MINERALS THERAP 1 TAB PO SCH (10:09)
[2016-06-01] MEDS: CLOPIDOGREL 75 MG TAB PO SCH (10:09)
[2016-06-01] MEDS: predniSONE 5 MG TAB PO SCH (10:10)
[2016-06-01] MEDS: METOPROLOL TART 50 MG TAB PO SCH ×2 (10:10→22:16)
[2016-06-01] MEDS: SENOKOT S TAB PO SCH ×2 (10:10→22:13)
[2016-06-01] MEDS: PANTOPRAZOLE 40MG TAB (PROTONIX) PO SCH (10:10)
[2016-06-01] MEDS: ASPIRIN 81 MG ENTERIC TAB PO SCH (10:10)
[2016-06-01] MEDS: HEPARIN SOD (PORCINE) 5000 UNITS/ML VIAL SQ SCH ×2 (10:11→22:13)
[2016-06-01] MEDS: NORCO, ANEXSIA 5/325MG TABLET (HYDROcodone/ACETAMINOPHEN) PO PRN ×2 (10:11→19:30)
[2016-06-01] MEDS: FLUCONAZOLE 100 MG TAB PO SCH (17:56)
[2016-06-02 06:00] VITALS: BP 135/72
[2016-06-02] MEDS: HumaLOG INSULIN (NovoLOG) PER UNIT SC SCH ×4 (07:12→20:39)
[2016-06-02] MEDS: MIRALAX *UNIT DOSE* 17GM PACKET PO SCH (09:28)
[2016-06-02] MEDS: CLOPIDOGREL 75 MG TAB PO SCH (09:29)
[2016-06-02] MEDS: METOPROLOL TART 50 MG TAB PO SCH ×2 (09:29→20:53)
[2016-06-02] MEDS: GABAPENTIN 100 MG CAP PO SCH ×2 (09:29→20:46)
[2016-06-02] MEDS: SENOKOT S TAB PO SCH ×2 (09:29→20:48)
[2016-06-02] MEDS: ATORVASTATIN 20 MG TAB PO SCH (09:29)
[2016-06-02] MEDS: predniSONE 5 MG TAB PO SCH (09:29)
[2016-06-02] MEDS: PANTOPRAZOLE 40MG TAB (PROTONIX) PO SCH (09:29)
[2016-06-02] MEDS: MULTIVITAMINS/MINERALS THERAP 1 TAB PO SCH (09:29)
[2016-06-02] MEDS: HEPARIN SOD (PORCINE) 5000 UNITS/ML VIAL SQ SCH ×2 (09:29→20:47)
[2016-06-02] MEDS: ASPIRIN 81 MG ENTERIC TAB PO SCH (09:29)
[2016-06-02] MEDS: FEBUXOSTAT 40 MG TABLET (ULORIC) PO SCH (09:30)
--- NOTE | 2016-06-02 11:33 | IPN ---
DATE: 05/24/2016 SUBJECTIVE: Patient was seen and examined at the bedside today in the morning due to hemodialysis procedure. He was tolerating the hemodialysis procedure well. There were no active complaints. REVIEW OF SYSTEMS: Patient denies any fever, chills, rigors, headache, nausea, vomiting, chest pain, shortness of breath, pain in abdomen, constipation, or diarrhea. Rest of review of systems is negative. OBJECTIVE: VITAL SIGNS: Temperature is 96.5 degrees Fahrenheit. Blood pressure is 145/65, pulse is 65, respiratory rate of 18, saturating 99% on nasal cannula. INTAKE AND OUTPUT: There is no urine output recorded. Weight on the bed scale was 99.9 kg. PHYSICAL EXAMINATION: GENERAL: Patient is awake, alert, oriented times three, lying in the bed, getting hemodialysis done, no apparent distress. HEAD AND NECK EXAM: Extraocular muscles are intact. Pupils equally round and reactive to light. Mucous membranes are moist. Neck is supple. There is no jugular venous distention (JVD). CARDIOVASCULAR: S1, S2, regular rate. No murmur, rub or gallop. RESPIRATORY: Chest is clear to auscultation bilaterally. Bilaterally equal air entry. No rales or rhonchi. ABDOMEN: Soft. Positive bowel sounds. Nontender. No ascites. No organomegaly. EXTREMITIES: Patient has multiple dry gangrene lesions on the toes bilaterally, which are healing now. There is trace edema of the bilateral lower extremities. CENTRAL NERVOUS SYSTEM (CLEANER ASSISTANT): No focal neurologic deficit. Power is 5/5 in all extremities. AV ACCESS: Patient has left upper arm AV graft, which is being used for hemodialysis at this time. LABORATORY REVIEW: CBC showed WBC 11.4, hemoglobin is 11.4, platelets are 248. BMP showed sodium 141, potassium 5, chloride 98, bicarbonate 33, BUN 38, creatinine 7.8. Calcium is 9.2. Phosphorus is 4.2. Albumin is 3. CURRENT MEDICATIONS: Patient's medications were all reviewed by me. There is no change in the medications today as compared with yesterday. ASSESSMENT: 80-year-old male with past medical history of end-stage renal disease on hemodialysis admitted this time because of generalized weakness, deconditioning and missing hemodialysis. PROBLEMS: 1. End-stage renal disease on hemodialysis Patient is being dialyzed according to his regular schedule today. We shall try to do an ultrafiltration of 2-3 liters as tolerated by his blood pressure. 2. Congestive heart failure. His volume status is well optimized at this time. Shortness of breath is improved, ultrafiltration of 2-3 liters. 3. Hyperkalemia. Patient gets hemodialyzed with a 2K bath. Potassium is 5 today. Potassium will normalize with hemodialysis. 4. Anemia in end-stage renal disease. Patient's hemoglobin is 11.4, which is acceptable for end-stage renal disease. Continue current dose of Aranesp 200 mcg intravenously (IV) with hemodialysis once a week. 5. Generalized weakness and decoditioning. Patient is getting physical therapy and we are working on placement at subacute rehabilitation at this time.
--- NOTE | 2016-06-02 15:35 | IPN ---
DATE: 06/01/2016 Mr. Rodriguez is feeling today with no complaints of pain, chest pain, shortness of breath. Says that he tolerated dialysis yesterday, although it made him tired. He is getting a little better now. Temperature is 97.6, pulse 58, respirations 18, blood pressure 137/65, 97% on 3 liters. Intake and output notable for negative fluid balance of -490. One bowel movement yesterday. Weight is 98.2 kg. He is awake, appropriately interactive, pleasantly conversant. Breathing is symmetrically diminished. Inspiratory to expiratory (I-to-E) ratio is 1:3. No accessory muscle use. Speaking in complete sentences. Heart is distant sounding. Normal S1, S2. Abdomen soft, doughy, nontender. White cell count 11.4, hemoglobin 11.4. Creatinine 7.8. ASSESSMENT: This is an 80-year-old with end-stage renal disease, on hemodialysis. PLAN: 1. End-stage renal disease, on hemodialysis. Patient is better when he receives dialysis. At home he has been unable to reliably make his dialysis appointments. Plan is now for placement. 2. Patient has impaired swallow. His diet has been adjusted. He appears to be tolerating that. 3. 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 4. Patient had constipation, although he appears to be having bowel movements with his current bowel regimen, as his last stool was described as copious. 5. Patient has congestive heart failure with diastolic dysfunction, which appears to be compensated. 6. Patient has chronic hypoxic respiratory failure, on home oxygen. 7. Patient has diabetes. 8. Patient has gout. 9. Next scheduled dialysis would be on June 03.
[2016-06-02] MEDS: NORCO, ANEXSIA 5/325MG TABLET (HYDROcodone/ACETAMINOPHEN) PO PRN (16:22)
[2016-06-02] MEDS: FLUCONAZOLE 100 MG TAB PO SCH (17:56)
--- NOTE | 2016-06-02 19:46 | IPN ---
DATE: 06/01/2016 SUBJECTIVE: Patient was seen and examined at the bedside today in the morning. He does not have active complaints. He tolerated the hemodialysis procedure well yesterday. He is otherwise afebrile and hemodynamically stable. REVIEW OF SYSTEMS: Patient denies any fever, chills, rigors, headache, nausea, vomiting, chest pain, shortness of breath, pain in abdomen, constipation, or diarrhea. He continues to complain of some weakness. Otherwise rest of review of systems is negative. OBJECTIVE: VITAL SIGNS: Temperature is 97.6 degrees Fahrenheit. Blood pressure is 137/65, pulse is 58, respiratory rate of 18, saturating 97% on 2 liters nasal cannula. INTAKE AND OUTPUT: There is no urine output recorded. Patient got hemodialysis done yesterday. Ultrafiltration was 1500 mL. Weight on the bed scale was 98.2 kg. PHYSICAL EXAMINATION: GENERAL: Patient is awake, alert, oriented times three, lying in the bed, no apparent distress. HEAD AND NECK EXAM: Extraocular muscles are intact. Pupils equally round and reactive to light. Mucous membranes are moist. Neck is supple. There is no jugular venous distention (JVD). CARDIOVASCULAR: S1, S2, regular rate. No murmur, rub or gallop. RESPIRATORY: Chest is clear to auscultation bilaterally. Bilaterally equal air entry. ABDOMEN: Soft. Positive bowel sounds. Nontender. No ascites. No organomegaly. EXTREMITIES: No clubbing or cyanosis. CENTRAL NERVOUS SYSTEM (VETERINARY BACTERIOLOGIST): No focal neurologic deficit. Power is 5/5 in all extremities. AV ACCESS: Patient has left upper arm arteriovenous (AV) graft, with positive thrill and bruit. SKIN: Patient has multiple dry gangrene lesions on bilateral toes which are healing at this point. LABORATORY REVIEW: CBC showed WBC 11.4, hemoglobin is 11.4, platelets are 248. BMP, there is no fresh BMP available. All of the labs are from yesterday. CURRENT MEDICATIONS: Patient's medications were all reviewed by me. There is no change in the medications at this time. ASSESSMENT: 80-year-old male with past medical history of end-stage renal disease on hemodialysis admitted this time because of generalized weakness, deconditioning and missing two sessions of hemodialysis, fluid overload, and hyperkalemia. PROBLEMS: 1. End-stage renal disease on hemodialysis Patient was dialyzed according to his Thursday, , Thursday schedule yesterday. Next hemodialysis will be on 06/03/2016. 2. Congestive heart failure. Patient volume status is well optimized at this time. Continue to maintain current weight. 3. Anemia in end-stage renal disease. Patient's hemoglobin is more than 11. Currently new dose of Aranesp 200 mcg intravenously (IV) with hemodialysis. 4. Hypertension. Continue current dose of Lopressor 50 mg by mouth twice a day. 5. Generalized weakness and inability to walk. Patient is getting physical therapy done. Plan is for a possible rehabilitation placement. The rest of the management is per primary team.
[2016-06-03 06:00] VITALS: BP 162/90
[2016-06-03] MEDS: predniSONE 5 MG TAB PO SCH (06:33)
[2016-06-03] MEDS: PANTOPRAZOLE 40MG TAB (PROTONIX) PO SCH (06:34)
[2016-06-03] MEDS: FEBUXOSTAT 40 MG TABLET (ULORIC) PO SCH (06:34)
[2016-06-03] MEDS: ATORVASTATIN 20 MG TAB PO SCH (06:34)
[2016-06-03] MEDS: CLOPIDOGREL 75 MG TAB PO SCH (06:35)
[2016-06-03] MEDS: SENOKOT S TAB PO SCH ×2 (06:35→20:46)
[2016-06-03] MEDS: MULTIVITAMINS/MINERALS THERAP 1 TAB PO SCH (06:35)
[2016-06-03] MEDS: ASPIRIN 81 MG ENTERIC TAB PO SCH (06:35)
[2016-06-03] MEDS: GABAPENTIN 100 MG CAP PO SCH ×2 (06:36→20:46)
[2016-06-03] MEDS: HEPARIN SOD (PORCINE) 5000 UNITS/ML VIAL SQ SCH ×2 (06:36→20:46)
[2016-06-03] MEDS: MIRALAX *UNIT DOSE* 17GM PACKET PO SCH (06:36)
[2016-06-03] MEDS: HumaLOG INSULIN (NovoLOG) PER UNIT SC SCH ×4 (08:08→20:49)
[2016-06-03] MEDS: METOPROLOL TART 50 MG TAB PO SCH ×2 (08:09→20:47)
[2016-06-03 09:24] LABS: BASO % 0.4 % (0.0-1.0); EOS # 0.3 K/mm3 (0.0-0.50); EOS % 3.6 % (0.0-3.0); LARGE UNSTAINED CELL # 0.2 K/mm3 (0.0-0.4); LARGE UNSTAINED CELL % 2.4 % (0.0-4.0); LYMPH # 1.4 K/mm3 (1.5-4.5); LYMPH % 14.8 % (24.0-44.0); MEAN CORPUSCULAR HEMOGLOBIN 31.3 pg (27.0-33.0); MEAN CORPUSCULAR HGB CONC 30.3 g/dl (32.0-36.5); MEAN CORPUSCULAR VOLUME 103.4 fl (80.0-96.0); MONO # 0.5 K/mm3 (0.0-0.8); NEUTROPHILS # 6.9 K/mm3 (1.8-7.7); NEUTROPHILS % 73.8 % (36.0-66.0); PLATELET COUNT, AUTOMATED 208 k/mm3 (150-450); RED CELL DISTRIBUTION WIDTH 16.5 % (11.5-14.5); WHITE BLOOD COUNT 9.3 K/mm3 (4.0-10.0)
[2016-06-03 09:40] LABS: ALBUMIN 3.2 GM/DL (3.2-5.2); CREATININE FOR GFR 9.37 MG/DL (0.70-1.30); GLOMERULAR FILTRATION RATE 5.8 (>35); PHOSPHORUS LEVEL 6.4 MG/DL (2.5-4.9)
[2016-06-03 09:42] LABS: POTASSIUM SERUM 5.3 MEQ/L (3.5-5.1)
--- NOTE | 2016-06-03 10:47 | IPN ---
DATE OF VISIT: 06/02/2016 SUBJECTIVE: The patient was seen and examined at the bedside today. He is laying in the bed. He does not have any active complaints apart from the food that he is getting. He does not like the puree food that he was put on. He does not like the taste and he wants to take the regular diet. REVIEW OF SYSTEMS: The patient denies any fever, chills, rigors, headache, nausea or vomiting, chest pain, shortness of breath, pain of abdomen, constipation or diarrhea. The rest of the review of systems is negative. OBJECTIVE: VITAL SIGNS: Temperature 96.7 degrees Fahrenheit, blood pressure 135/72, pulse 62, respiratory rate 18, saturating 96% on nasal cannula. Intake and output: Urine output is not recorded well. The patient's weight on the bed scale was 98.2 kg yesterday. GENERAL: The patient is awake, alert and oriented times three, laying in bed in no apparent distress. HEAD/NECK: Extraocular muscles intact, pupils equal, round, reactive to light. Neck is supple. There is no jugular venous distention (JVD). CARDIOVASCULAR: S1, S2, regular rate. No murmurs, rubs, gallops. RESPIRATORY: Chest is clear to auscultation bilaterally. Bilateral equal air entry. No rales or rhonchi. ABDOMEN: Soft, positive bowel sounds, nontender, no ascites, no organomegaly. EXTREMITIES: No clubbing or cyanosis. CENTRAL NERVOUS SYSTEM (METAL RECLAMATION KETTLE TENDER): No focal neurologic deficits. Power is 5/5 in all extremities. Arteriovenous (AV) access: The patient has a left upper arm AV graft with positive thrill and bruit. SKIN: The patient has multiple dry, gangrenous lesions on bilateral toes which are healing. LAB REVIEW: CBC shows WBC 11.4, hemoglobin 11.4. There is no BMP available today. The above mentioned CBC is also from May 31. CURRENT MEDICATIONS: The patient's medications were all reviewed by me. There is no change in the medications at this time. ASSESSMENT: 80-year-old male with past medical history of endstage renal disease on hemodialysis, admitted this time because of generalized weakness, deconditioning and missing hemodialysis. PLAN: 1. End-stage renal disease on hemodialysis. The patient's regular days are Thursday, and Thursday. He will be dialyzed tomorrow as per his regular schedule. 2. Dysphagia. The patient was evaluation by the speech and swallow team and he was aspirating so he was put on a puree diet. He does not like the diet but I am unable to change the diet at this time because of the risk of aspiration. Continue the current diet regimen as recommended by the swallow evaluation. 3. Generalized weakness and inability to walk. The patient would likely be transferred to [facility] tomorrow.
[2016-06-03] MEDS: NORCO, ANEXSIA 5/325MG TABLET (HYDROcodone/ACETAMINOPHEN) PO PRN (10:54)
[2016-06-03] MEDS ORDERED: HEPARIN 1,000 UNITS/ML 10ML VIAL (FOR RADIOLOGY& DIALYSIS ONLY) IV ONE (11:00)
[2016-06-03] MEDS ORDERED: LIDOCAINE 1% SDV 5 ML VIAL SQ ONE (11:00)
--- NOTE | 2016-06-03 17:38 | IPN ---
DATE: 06/03/2016 SUBJECTIVE: The patient was seen and examined at the bedside today in the morning during hemodialysis. He was tolerating the hemodialysis procedure well. No active complaints at this time. REVIEW OF SYSTEMS: The patient denies any fever, chills, rigors, headache, nausea, vomiting, chest pain, shortness of breath, pain in abdomen, constipation or diarrhea. The rest of the review of the system is negative. OBJECTIVE: VITAL SIGNS: Temperature is 97 degrees Fahrenheit. Blood pressure is 162/90, pulse 66, respiratory rate of 18, saturating 99% on nasal cannula. Intake and output: There is no urine output recorded today. Weight in the bed scale is 99.1 kg. PHYSICAL EXAMINATION: GENERAL: The patient is awake, alert and oriented times three. Laying in bed, getting hemodialysis done. No apparent distress. HEAD/NECK: Extraocular muscles intact. Pupils equally round and reactive to light. Neck is supple. There is no jugular venous distention (JVD). CARDIOVASCULAR: S1, S2, irregular rate. No murmur, rub or gallop. RESPIRATORY: Chest is clear to auscultation bilaterally. Bilateral equal air entry. No rales or rhonchi. ABDOMEN: Soft. Positive bowel sounds. Nontender. No ascites. No organomegaly. EXTREMITIES: No clubbing or cyanosis. CENTRAL NERVOUS SYSTEM: No focal neurological deficit. Power is 5/5 in all extremities. ARTERIOVENOUS (AV) ACCESS: The patient has a left upper arm AV graft which is being used for dialysis at this time. SKIN: The patient has multiple dry gangrenous lesions on bilateral toes. LAB REVIEW: Hemoglobin is 11.7 today. BMP showed sodium 140, potassium 5.3, chloride 101, bicarbonate 26, BUN 39, creatinine 9.3, phosphorous is 6.4. CURRENT MEDICATIONS: The patient's medications are all reviewed by me. There is no change in the medications at this time. ASSESSMENT: 80-year-old male with past medical history of end-stage renal disease, on hemodialysis admitted this time because of generalized weakness, deconditioning and missing hemodialysis. PLAN: 1. End-stage renal disease, on hemodialysis. The patient is being dialyzed according to his Thursday, schedule today. Ultrafiltration goal will be around 3 liters as tolerated by his blood pressure. 2. Generalized weakness and inability to walk. visitor services specialist actively working to have the patient placed in a short term rehabilitation. If the patient is discharged he can be dialyzed as outpatient. 3. Dysphagia. The patient wants to eat regular diet, but speech and follow evaluation recommended pureed diet. Continue pureed diet at this time. 4. Discharge planning. Once a bed is available in short term rehabilitation it is okay to discharge the patient from nephrology standpoint. I shall inform the outpatient dialysis center.
[2016-06-03] MEDS: FLUCONAZOLE 100 MG TAB PO SCH (17:51)
[2016-06-04] MEDS: NORCO, ANEXSIA 5/325MG TABLET (HYDROcodone/ACETAMINOPHEN) PO PRN ×3 (02:05→16:29)
[2016-06-04 06:00] VITALS: BP 151/72
[2016-06-04] MEDS: HumaLOG INSULIN (NovoLOG) PER UNIT SC SCH ×4 (07:45→21:00)
[2016-06-04] MEDS: GABAPENTIN 100 MG CAP PO SCH ×2 (09:05→20:27)
[2016-06-04] MEDS: FEBUXOSTAT 40 MG TABLET (ULORIC) PO SCH (09:05)
[2016-06-04] MEDS: PANTOPRAZOLE 40MG TAB (PROTONIX) PO SCH (09:05)
[2016-06-04] MEDS: HEPARIN SOD (PORCINE) 5000 UNITS/ML VIAL SQ SCH ×2 (09:05→20:27)
[2016-06-04] MEDS: MULTIVITAMINS/MINERALS THERAP 1 TAB PO SCH (09:05)
[2016-06-04] MEDS: ATORVASTATIN 20 MG TAB PO SCH (09:05)
[2016-06-04] MEDS: predniSONE 5 MG TAB PO SCH (09:05)
[2016-06-04] MEDS: CLOPIDOGREL 75 MG TAB PO SCH (09:06)
[2016-06-04] MEDS: ASPIRIN 81 MG ENTERIC TAB PO SCH (09:06)
[2016-06-04] MEDS: SENOKOT S TAB PO SCH ×2 (09:06→20:27)
[2016-06-04] MEDS: METOPROLOL TART 50 MG TAB PO SCH ×2 (09:07→20:28)
[2016-06-04] MEDS: MIRALAX *UNIT DOSE* 17GM PACKET PO SCH (09:08)
[2016-06-04] MEDS: FLUCONAZOLE 100 MG TAB PO SCH (17:52)
[2016-06-04 22:00] VITALS: BP 153/69
[2016-06-05 06:00] VITALS: BP 156/72
[2016-06-05] MEDS: ASPIRIN 81 MG ENTERIC TAB PO SCH (06:22)
[2016-06-05] MEDS: predniSONE 5 MG TAB PO SCH (06:22)
[2016-06-05] MEDS: HEPARIN SOD (PORCINE) 5000 UNITS/ML VIAL SQ SCH ×2 (06:22→21:08)
[2016-06-05] MEDS: MULTIVITAMINS/MINERALS THERAP 1 TAB PO SCH (06:23)
[2016-06-05] MEDS: PANTOPRAZOLE 40MG TAB (PROTONIX) PO SCH (06:23)
[2016-06-05] MEDS: FEBUXOSTAT 40 MG TABLET (ULORIC) PO SCH (06:23)
[2016-06-05] MEDS: GABAPENTIN 100 MG CAP PO SCH ×2 (06:23→21:09)
[2016-06-05] MEDS: CLOPIDOGREL 75 MG TAB PO SCH (06:23)
[2016-06-05] MEDS: ATORVASTATIN 20 MG TAB PO SCH (06:23)
[2016-06-05] MEDS: SENOKOT S TAB PO SCH ×2 (06:23→21:09)
[2016-06-05] MEDS: MIRALAX *UNIT DOSE* 17GM PACKET PO SCH (06:23)
[2016-06-05] MEDS: HumaLOG INSULIN (NovoLOG) PER UNIT SC SCH ×4 (07:56→20:57)
[2016-06-05] MEDS: METOPROLOL TART 50 MG TAB PO SCH ×2 (07:57→21:08)
[2016-06-05] MEDS ORDERED: LIDOCAINE 1% SDV 5 ML VIAL SC ONE (10:00)
[2016-06-05] MEDS ORDERED: HEPARIN 1,000 UNITS/ML 10ML VIAL (FOR RADIOLOGY& DIALYSIS ONLY) IV ONE (10:00)
[2016-06-05] MEDS: METOCLOPRAMIDE 5 MG TAB PO PRN ×2 (10:34→19:47)
[2016-06-05 10:59] LABS: BASO # 0.1 K/mm3 (0.0-0.2); BASO % 0.7 % (0.0-1.0); EOS # 0.4 K/mm3 (0.0-0.50); EOS % 5.2 % (0.0-3.0); LARGE UNSTAINED CELL # 0.3 K/mm3 (0.0-0.4); LARGE UNSTAINED CELL % 3.5 % (0.0-4.0); LYMPH # 1.9 K/mm3 (1.5-4.5); LYMPH % 22.5 % (24.0-44.0); MEAN CORPUSCULAR HEMOGLOBIN 30.9 pg (27.0-33.0); MEAN CORPUSCULAR HGB CONC 30.1 g/dl (32.0-36.5); MEAN CORPUSCULAR VOLUME 102.5 fl (80.0-96.0); MONO # 0.9 K/mm3 (0.0-0.8); MONO % 10.5 % (0.0-5.0); NEUTROPHILS # 4.8 K/mm3 (1.8-7.7); NEUTROPHILS % 57.5 % (36.0-66.0); PLATELET COUNT, AUTOMATED 167 k/mm3 (150-450); RED CELL DISTRIBUTION WIDTH 16.6 % (11.5-14.5); WHITE BLOOD COUNT 8.3 K/mm3 (4.0-10.0)
[2016-06-05 11:27] LABS: ALBUMIN 3.2 GM/DL (3.2-5.2); CALCIUM LEVEL 8.8 MG/DL (8.8-10.2); CREATININE FOR GFR 8.28 MG/DL (0.70-1.30); GLOMERULAR FILTRATION RATE 6.7 (>35); PHOSPHORUS LEVEL 6.1 MG/DL (2.5-4.9); POTASSIUM SERUM 4.6 MEQ/L (3.5-5.1)
[2016-06-05] MEDS ORDERED: ONDANSETRON 4 MG TAB (S0181) PO ONE (11:45)
--- NOTE | 2016-06-05 13:37 | IPN ---
DATE: 06/05/2016 SUBJECTIVE: Patient was seen and examined at the bedside today in the morning during hemodialysis. He was tolerating the hemodialysis procedure well, however his blood pressure was dropping with more ultrafiltration goals so ultrafiltration (UF) goal was decreased to 1 liter. REVIEW OF SYSTEMS: Patient denies any fever, chills, rigors, headache, nausea, vomiting, chest pain, shortness of breath. Rest of review of systems is negative. OBJECTIVE: VITAL SIGNS: Temperature 97.2 degrees Fahrenheit, blood pressure 160/70, pulse 64, respiratory rate 20, saturating at 98% on nasal cannula. Intake and output: Urine output is not recorded. His weight in the bed scale was 98.7 kg yesterday. PHYSICAL EXAMINATION: GENERAL: Patient is awake, alert, oriented times three, laying in bed getting hemodialysis done, no apparent distress. HEAD and NECK EXAM: Extraocular muscles intact, pupils equally round and reactive to light. Mucous membranes are moist. Neck is supple, there is no jugular venous distention (JVD). CARDIOVASCULAR: S1, S2, irregular heart rate, no murmur, rub, or gallop. RESPIRATORY: Chest is clear to auscultation bilaterally, bilateral equal air entry, no rales or rhonchi. ABDOMEN: Soft, positive bowel sounds, nontender, no ascites, no organomegaly. EXTREMITIES: No clubbing or cyanosis, positive dry gangrene of the bilateral toes. CENTRAL NERVOUS SYSTEM (SALES AND MARKETING SPECIALIST): No focal neurological deficit, power is 5/5 in all extremities. ARTERIOVENOUS (AV) ACCESS: Patient has a left upper arm AV graft which is being used for dialysis at this time. LABORATORY REVIEW: CBC showed WBC 8.3, hemoglobin 11.7, platelets 167. BMP showed sodium 141, potassium 4.6, chloride 100, bicarbonate 28, BUN 29, creatinine 8.28, calcium 8.8, phosphorous 6.1, albumin 3.2. CURRENT MEDICATIONS: Patient's medications were all reviewed by me. His Aranesp has been stopped because his hemoglobin is persistently above 11 at this time. There is no other change in the medications. ASSESSMENT: 80-year-old male with past medical history of end-stage renal disease on hemodialysis, admitted at this time because of generalized weakness, deconditioning, and missing hemodialysis. PLAN: 1. End-stage renal disease. Patient is getting dialyzed according to his Thursday, schedule today. Ultrafiltration goal was three liters, however patient is not tolerating the ultrafiltration (UF) and his blood pressure is dropping, so ultrafiltration (UF) goal has been decreased to one liter only. 2. Anemia secondary to end-stage renal disease. Patient's hemoglobin is persistently above 11. I am going to stop the Aranesp and, if needed, if his hemoglobin drops below 11, then we will restart the erythropoietin stimulating agent (LAURENCE). 3. Generalized weakness and inability to walk. Social work is actively working to have the patient placed in a short-term rehabilitation or a senior care. 4. Discharge planning. It is okay to discharge the patient from nephrology standpoint once the bed is available. Patient already has his dialysis support at [facility] in [place] whenever patient is discharged from the hospital.
[2016-06-05] MEDS: NORCO, ANEXSIA 5/325MG TABLET (HYDROcodone/ACETAMINOPHEN) PO PRN (13:40)
[2016-06-05] MEDS: FLUCONAZOLE 100 MG TAB PO SCH (17:09)
[2016-06-06 06:00] VITALS: BP 141/67
[2016-06-06] MEDS: HumaLOG INSULIN (NovoLOG) PER UNIT SC SCH ×4 (07:30→21:00)
[2016-06-06] MEDS: MIRALAX *UNIT DOSE* 17GM PACKET PO SCH (09:00)
[2016-06-06] MEDS: ATORVASTATIN 20 MG TAB PO SCH (09:52)
[2016-06-06] MEDS: ASPIRIN 81 MG ENTERIC TAB PO SCH (09:52)
[2016-06-06] MEDS: GABAPENTIN 100 MG CAP PO SCH ×2 (09:52→20:31)
[2016-06-06] MEDS: SENOKOT S TAB PO SCH ×2 (09:52→20:30)
[2016-06-06] MEDS: FEBUXOSTAT 40 MG TABLET (ULORIC) PO SCH (09:52)
[2016-06-06] MEDS: MULTIVITAMINS/MINERALS THERAP 1 TAB PO SCH (09:52)
[2016-06-06] MEDS: predniSONE 5 MG TAB PO SCH (09:52)
[2016-06-06] MEDS: CLOPIDOGREL 75 MG TAB PO SCH (09:52)
[2016-06-06] MEDS: PANTOPRAZOLE 40MG TAB (PROTONIX) PO SCH (09:52)
[2016-06-06] MEDS: METOPROLOL TART 50 MG TAB PO SCH ×2 (09:53→20:31)
[2016-06-06] MEDS: HEPARIN SOD (PORCINE) 5000 UNITS/ML VIAL SQ SCH ×2 (09:54→20:30)
[2016-06-06] MEDS: NORCO, ANEXSIA 5/325MG TABLET (HYDROcodone/ACETAMINOPHEN) PO PRN ×3 (10:05→23:21)
[2016-06-06 14:00] VITALS: BP 139/85
[2016-06-06] MEDS: FLUCONAZOLE 100 MG TAB PO SCH (17:47)
[2016-06-06 22:00] VITALS: BP 147/67
[2016-06-07 06:00] VITALS: BP 154/74
[2016-06-07] MEDS: ASPIRIN 81 MG ENTERIC TAB PO SCH (06:19)
[2016-06-07] MEDS: MULTIVITAMINS/MINERALS THERAP 1 TAB PO SCH (06:19)
[2016-06-07] MEDS: PANTOPRAZOLE 40MG TAB (PROTONIX) PO SCH (06:19)
[2016-06-07] MEDS: CLOPIDOGREL 75 MG TAB PO SCH (06:19)
[2016-06-07] MEDS: predniSONE 5 MG TAB PO SCH (06:19)
[2016-06-07] MEDS: ATORVASTATIN 20 MG TAB PO SCH (06:19)
[2016-06-07] MEDS: FEBUXOSTAT 40 MG TABLET (ULORIC) PO SCH (06:20)
[2016-06-07] MEDS: GABAPENTIN 100 MG CAP PO SCH ×2 (06:20→20:25)
[2016-06-07] MEDS: HEPARIN SOD (PORCINE) 5000 UNITS/ML VIAL SQ SCH ×2 (06:20→20:25)
[2016-06-07] MEDS: SENOKOT S TAB PO SCH ×2 (06:20→20:25)
[2016-06-07] MEDS: METOPROLOL TART 50 MG TAB PO SCH ×2 (06:21→20:25)
[2016-06-07] MEDS: MIRALAX *UNIT DOSE* 17GM PACKET PO SCH (06:21)
[2016-06-07] MEDS: HumaLOG INSULIN (NovoLOG) PER UNIT SC SCH ×4 (07:03→20:20)
--- NOTE | 2016-06-07 07:55 | IPNPDOC ---
Subjective Date Seen The patient was seen on 06/07/16. Subjective Chief Complaint/HPI The patient is a 80-year-old male admitted with a reason for visit of Generalized Weakness; Hyperkalemia. Events since last encounter In good spirits eating breakfast, watching TV. No medical complaints. General: Denies: Chills, Fatigue, Malaise, Night Sweats, Normal Appetite, Other Symptoms, ROS Unobtainable Constitutional: Denies: Chills, Fatigue, Fever, Lethargy, Malaise, Night Sweats , Other, Weakness, Weight Loss Eyes: Denies: Conjunctivae inflammation, Eyelid inflammation, Other, Pain, Redness, Vision change ENT: Denies: Dysphagia, Ear Pain, Epistaxis, Head Aches, Other Symptoms, Post Nasal Drip, Sinus Congestion, Sore Throat Skin: Denies: Breakdown, Bruising, Dry, Itching, Jaundice, Lesions, Nail Changes, Other, Rash Pulmonary: Denies: Cough, Dyspnea, Other Symptoms, Pleuritic Chest Pain Cardiovascular: Denies: Chest Pain, Edema, Lt Headedness, Orthopnea, Other Symptoms, Palpitations, Paroxysmal Noc. Dyspnea Gastrointestinal: Denies: Abdominal Pain, Constipation, Diarrhea, Hematochezia , Melena, Nausea, Other Symptoms, Vomiting Genitourinary: Denies: Dysuria, Frequency, Hematuria, Incontinence, Other Symptoms, Retention Hematologic: Denies: Bleeding Excessively, Bruising, Enlarged Lymph Nodes, Other Hematologic, Petecchia, Purpura Objective Physical Examination General Exam: Positive: Alert, Cooperative, No Acute Distress, Other Eye Exam: Positive: Conjunctiva & lids normal, PERRLA ENT Exam: Positive: Atraumatic, Mucous membr. moist/pink Neck Exam: Positive: Supple Chest Exam: Positive: Clear to auscultation, Normal air movement Heart Exam: Positive: Murmurs (very soft systolic murmur), Rate Normal, Regular Rhythm Abdomen Exam: Positive: Normal bowel sounds, Soft, Negative: Tenderness Extremity Exam: Positive: Cyanosis, Other (bilateral dry gangrenous metatarsals ) Skin Exam: Positive: Breakdown Psych Exam: Positive: Oriented x 3 Assessment /Plan Problems (1) Generalized weakness Status: Chronic Response to Treatment: Progressing Discussed With: Patient Problem Specific Plan: Consult Specialist, Monitor Clinically Problem Text: Pending placement at this time. Continue with PT/OT. (2) Peripheral vascular disease Status: Chronic Problem Specific Plan: Monitor Clinically Problem Text: Chronic issues, stable at this time. (3) Hypertension Status: Chronic Problem Specific Plan: Monitor Clinically Problem Text: Beta blockade (4) Hyperlipidemia Status: Chronic Problem Text: Lipitor (5) Chronic respiratory failure with hypoxia Status: Chronic Response to Treatment: Stable Problem Specific Plan: Monitor Clinically (6) Diabetes Status: Chronic Problem Specific Plan: Monitor Clinically, Repeat Labs Problem Text: Insulin sliding scale (7) COPD (chronic obstructive pulmonary disease) Status: Chronic Response to Treatment: Stable Problem Specific Plan: Monitor Clinically Problem Text: Saturating well with 2L supplemental O2, at baseline. (8) Pulmonary hypertension Status: Chronic Problem Specific Plan: Monitor Clinically (9) Gout Status: Chronic Problem Specific Plan: Monitor Clinically Problem Text: Continue Uloric, prednisone. (10) CAD (coronary artery disease) Status: Chronic Problem Specific Plan: Monitor Clinically Problem Text: Continue statin, beta sacha, ASA/Plavix. 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 Regular schedule T/R/S. Follow as per nephrology, assistance appreciated. (13) Anemia Status: Chronic Discussed With: Patient Problem Specific Plan: Monitor Clinically, Repeat Labs Problem Text: Secondary to ESRD. Aranesp discontinued. LAURENCE as needed. (14) Hyperkalemia Status: Resolved Plan/VTE VTE Prophylaxis Ordered?: Yes (Heparin SC) Plan Diet: Continue Current Activity: Continue Current Therapy: PT, OT Pt and Family Services: Home Care, Other PFS Diagnostics: Repeat Labs in AM Anticipated Discharge: Sub Acute Rehab, [facility] Advance Directives: DNR VS, I&O, 24H, Fishbone Vital Signs/I&O Vital Signs Date Time Temp Pulse Resp B/P Pulse Ox O2 Delivery O2 Flow Rate FiO2 06/07/16 06:21 60 154/74 06/07/16 06:00 96.5 21 99 Nasal Cannula 2.0 I&O- Last 24 Hours up to 6 AM 06/07/16 06:00 Intake Total 120 ml Output Total 0 ml Balance 120 ml Laboratory Data 24H LABS Laboratory Tests 2 06/06/16 11:42: Bedside Glucose (Misc Panel) 121H 06/06/16 17:14: Bedside Glucose (Misc Panel) 133H 06/06/16 20:22: Bedside Glucose (Misc Panel) 184H 06/07/16 05:26: Bedside Glucose (Misc Panel) 115H MARGA COCHRAN MD Jun 07, 2016 06:45
[2016-06-07] MEDS ORDERED: HEPARIN 1,000 UNITS/ML 10ML VIAL (FOR RADIOLOGY& DIALYSIS ONLY) IV ONE (11:30)
[2016-06-07] MEDS ORDERED: LIDOCAINE 1% SDV 5 ML VIAL SC ONE (11:30)
[2016-06-07 14:02] VITALS: BP 143/68
--- NOTE | 2016-06-07 15:06 | IPN ---
DATE: 06/07/2016 Mr. Rodriguez is seen this morning on his bedside during hemodialysis. He does not like his pureed food and thickened liquids, but does not have any other complaints. He denies any nausea or vomiting. He has no dyspnea or chest pain. He has no fever or chills. He has a known history of recurrent aspiration due to which he has been placed on thickened liquids and pureed diet. PHYSICAL EXAMINATION: Temperature 96.5 degrees Fahrenheit, heart rate 60 per minute and respiratory rate 20 per minute. Blood pressure 154/74 mmHg and oxygen saturation 99% on 2 liters oxygen. Head is atraumatic. Ears, nose and throat are unremarkable. Pupils equal and reactive to light and sclerae is anicteric. Heart: Sounds are regular and distant. Lungs: Have slightly diminished breath sounds at bases. There is no wheezing or rales. Abdomen: Soft and nontender and bowel sounds are normal. Extremities have no cyanosis or clubbing. Skin has chronic ischemic gangrenous changes on his toes, which is unchanged. No other rash or ulcers noted. Neurologically, he is awake, alert and oriented times three. There is no focal neurological deficit. Most recent labs are from 06/05/2016, which showed a BUN of 29 and creatinine 8.28. Calcium level was 8.8 and phosphorus 6.1. Electrolytes all within normal range. Hemoglobin was 11.7 and hematocrit 38.9. PROBLEMS: 1. End-stage renal disease. The patient is being dialyzed this morning. He is tolerating dialysis treatment very well. We are aiming to remove about 2 liters of fluid which he is tolerating well so far. 2. Anemia. Anemia has been stable, and we will continue to monitor it and treat it as needed with Aranesp. 3. Generalized deconditioning and weakness. This is a chronic issue, and the patient is likely a suitable candidate for subacute rehab. 4. Recurrent aspiration pneumonia. The patient has been placed on thickened liquids and pureed diet. He seems to be tolerating it well.
[2016-06-07] MEDS: FLUCONAZOLE 100 MG TAB PO SCH (18:14)
[2016-06-07] MEDS: NORCO, ANEXSIA 5/325MG TABLET (HYDROcodone/ACETAMINOPHEN) PO PRN (18:42)
[2016-06-08 06:00] VITALS: BP 148/65
[2016-06-08] MEDS: HumaLOG INSULIN (NovoLOG) PER UNIT SC SCH ×4 (07:59→20:43)
[2016-06-08] MEDS: CLOPIDOGREL 75 MG TAB PO SCH (08:00)
[2016-06-08] MEDS: FEBUXOSTAT 40 MG TABLET (ULORIC) PO SCH (08:00)
[2016-06-08] MEDS: HEPARIN SOD (PORCINE) 5000 UNITS/ML VIAL SQ SCH ×2 (08:00→21:12)
[2016-06-08] MEDS: GABAPENTIN 100 MG CAP PO SCH ×2 (08:00→21:12)
[2016-06-08] MEDS: MULTIVITAMINS/MINERALS THERAP 1 TAB PO SCH (08:00)
[2016-06-08] MEDS: SENOKOT S TAB PO SCH ×2 (08:01→21:12)
[2016-06-08] MEDS: METOPROLOL TART 50 MG TAB PO SCH ×2 (08:01→21:00)
[2016-06-08] MEDS: ATORVASTATIN 20 MG TAB PO SCH (08:01)
[2016-06-08] MEDS: predniSONE 5 MG TAB PO SCH (08:01)
[2016-06-08] MEDS: PANTOPRAZOLE 40MG TAB (PROTONIX) PO SCH (08:01)
[2016-06-08] MEDS: ASPIRIN 81 MG ENTERIC TAB PO SCH (08:01)
[2016-06-08] MEDS: MIRALAX *UNIT DOSE* 17GM PACKET PO SCH (08:02)
[2016-06-08] MEDS: FLUCONAZOLE 100 MG TAB PO SCH (18:11)
[2016-06-08 22:00] VITALS: BP 113/55
[2016-06-09 06:00] VITALS: BP 157/73
[2016-06-09] MEDS: HumaLOG INSULIN (NovoLOG) PER UNIT SC SCH ×4 (07:12→21:00)
[2016-06-09] MEDS: HEPARIN SOD (PORCINE) 5000 UNITS/ML VIAL SQ SCH ×2 (09:03→21:48)
[2016-06-09] MEDS: FEBUXOSTAT 40 MG TABLET (ULORIC) PO SCH (09:04)
[2016-06-09] MEDS: predniSONE 5 MG TAB PO SCH (09:04)
[2016-06-09] MEDS: CLOPIDOGREL 75 MG TAB PO SCH (09:04)
[2016-06-09] MEDS: MIRALAX *UNIT DOSE* 17GM PACKET PO SCH (09:04)
[2016-06-09] MEDS: MULTIVITAMINS/MINERALS THERAP 1 TAB PO SCH (09:04)
[2016-06-09] MEDS: ATORVASTATIN 20 MG TAB PO SCH (09:04)
[2016-06-09] MEDS: METOPROLOL TART 50 MG TAB PO SCH ×2 (09:04→21:48)
[2016-06-09] MEDS: PANTOPRAZOLE 40MG TAB (PROTONIX) PO SCH (09:04)
[2016-06-09] MEDS: ASPIRIN 81 MG ENTERIC TAB PO SCH (09:04)
[2016-06-09] MEDS: GABAPENTIN 100 MG CAP PO SCH ×2 (09:04→21:48)
[2016-06-09] MEDS: SENOKOT S TAB PO SCH ×2 (09:04→21:48)
[2016-06-09] MEDS: NORCO, ANEXSIA 5/325MG TABLET (HYDROcodone/ACETAMINOPHEN) PO PRN (11:50)
[2016-06-09] MEDS: FLUCONAZOLE 100 MG TAB PO SCH (17:45)
[2016-06-10] MEDS: NORCO, ANEXSIA 5/325MG TABLET (HYDROcodone/ACETAMINOPHEN) PO PRN ×3 (00:43→22:31)
[2016-06-10] MEDS: zolPIDEM TARTRATE 10MG TAB PO PRN ×2 (01:26→22:30)
[2016-06-10] MEDS: ACETAMINOPHEN 325 MG TAB PO PRN ×2 (01:26→22:57)
[2016-06-10 06:00] VITALS: BP 165/77
[2016-06-10] MEDS: GABAPENTIN 100 MG CAP PO SCH ×2 (06:20→22:29)
[2016-06-10] MEDS: SENOKOT S TAB PO SCH ×2 (06:20→22:29)
[2016-06-10] MEDS: MULTIVITAMINS/MINERALS THERAP 1 TAB PO SCH (06:20)
[2016-06-10] MEDS: ASPIRIN 81 MG ENTERIC TAB PO SCH (06:20)
[2016-06-10] MEDS: FEBUXOSTAT 40 MG TABLET (ULORIC) PO SCH (06:20)
[2016-06-10] MEDS: ATORVASTATIN 20 MG TAB PO SCH (06:20)
[2016-06-10] MEDS: MIRALAX *UNIT DOSE* 17GM PACKET PO SCH (06:20)
[2016-06-10] MEDS: METOPROLOL TART 50 MG TAB PO SCH ×2 (06:21→22:29)
[2016-06-10] MEDS: predniSONE 5 MG TAB PO SCH (06:21)
[2016-06-10] MEDS: PANTOPRAZOLE 40MG TAB (PROTONIX) PO SCH (06:21)
[2016-06-10] MEDS: CLOPIDOGREL 75 MG TAB PO SCH (06:21)
[2016-06-10] MEDS: HEPARIN SOD (PORCINE) 5000 UNITS/ML VIAL SQ SCH ×2 (06:22→22:29)
[2016-06-10 07:24] LABS: MEAN CORPUSCULAR HEMOGLOBIN 31.4 pg (27.0-33.0); MEAN CORPUSCULAR HGB CONC 30.1 g/dl (32.0-36.5); MEAN CORPUSCULAR VOLUME 104.3 fl (80.0-96.0); RED CELL DISTRIBUTION WIDTH 15.8 % (11.5-14.5); WHITE BLOOD COUNT 8.1 K/mm3 (4.0-10.0)
[2016-06-10] MEDS: HumaLOG INSULIN (NovoLOG) PER UNIT SC SCH ×5 (07:34→21:42)
[2016-06-10 07:37] LABS: ALBUMIN 3.2 GM/DL (3.2-5.2); CREATININE FOR GFR 9.06 MG/DL (0.70-1.30); PHOSPHORUS LEVEL 4.9 MG/DL (2.5-4.9)
[2016-06-10 07:39] LABS: POTASSIUM SERUM 5.6 MEQ/L (3.5-5.1)
--- NOTE | 2016-06-10 12:30 | IPN ---
DATE: 06/10/2016 Mr. Rodriguez is seen this morning on his bedside. We had started dialysis; however, it has to be stopped due to emergent need for ICU dialysis. The patient will be dialyzed again this afternoon. He has been feeling well and denies any new issues. He has history of recurrent aspiration and has been on thickened liquids and pureed diet. His chronic dyspnea is unchanged. He has no nausea, vomiting, fever or chills. Review of systems is otherwise unremarkable. On physical exam, temperature 97.6 degrees Fahrenheit, heart rate 74 per minute and respiratory rate 18 per minute. Blood pressure 162/80 mmHg and oxygen saturation 97% on 2 liters oxygen. Head is atraumatic. Ears, nose and throat are unremarkable. Pupils are equal and reactive to light and sclera is anicteric. Heart sounds are regular and lungs with a few basilar crepitations. Abdomen soft and nontender. Bowel sounds are normal. Extremities have no cyanosis or clubbing. Left arm AV fistula is patent. His toes are gangrenous and that is a chronic issue which is unchanged. Today's labs show WBC count 8.1, hemoglobin 12.3 and hematocrit 41.0. Platelets 171. Sodium 140 and potassium 5.6. BUN 38 and creatinine 9.0. Glucose is 109, calcium 9.0 and phosphorus 4.9. PROBLEMS: 1. End-stage renal disease. The patient is going to be dialyzed today for 3-1/2 hours. His AV fistula is working well. He has some mild ecchymosis around the fistula site which is going to be monitored and observed without intervention. 2. Hyperkalemia. This is related to end-stage renal disease. The patient will be dialyzed with 2.0 mEq potassium bath which will correct his hyperkalemia. 3. Hypertension. Blood pressure is slightly high today. We will try to remove about 2.5 liters of fluid with dialysis which is likely to help with blood pressure control. 4. Anemia. His anemia has corrected. His Aranesp has already been stopped. 5. Gangrenous changes in the toes. No intervention is indicated at this point. Will continue to monitor as this is related to cholesterol embolization to his lower extremities from cardiac catheterization. DISPOSITION: [facility] status waiting for a penitentiary bed.
[2016-06-10] MEDS ORDERED: LIDOCAINE 1% SDV 5 ML VIAL SQ ONE (14:00)
[2016-06-10] MEDS ORDERED: HEPARIN 1,000 UNITS/ML 10ML VIAL (FOR RADIOLOGY& DIALYSIS ONLY) IV ONE (14:00)
[2016-06-10] MEDS: FLUCONAZOLE 100 MG TAB PO SCH (18:13)
[2016-06-11 06:00] VITALS: BP 146/69
[2016-06-11 07:03] LABS: MEAN CORPUSCULAR HEMOGLOBIN 31.6 pg (27.0-33.0); MEAN CORPUSCULAR HGB CONC 30.8 g/dl (32.0-36.5); MEAN CORPUSCULAR VOLUME 102.7 fl (80.0-96.0); RED CELL DISTRIBUTION WIDTH 15.8 % (11.5-14.5); WHITE BLOOD COUNT 7.6 K/mm3 (4.0-10.0)
[2016-06-11 07:22] LABS: CALCIUM LEVEL 8.6 MG/DL (8.8-10.2); CREATININE FOR GFR 5.79 MG/DL (0.70-1.30); GLOMERULAR FILTRATION RATE 10.1 (>35); MAGNESIUM LEVEL 2.2 MG/DL (1.8-2.4)
[2016-06-11] MEDS: HumaLOG INSULIN (NovoLOG) PER UNIT SC SCH ×4 (07:26→21:00)
[2016-06-11] MEDS: FEBUXOSTAT 40 MG TABLET (ULORIC) PO SCH (08:56)
[2016-06-11] MEDS: GABAPENTIN 100 MG CAP PO SCH ×2 (08:57→21:27)
[2016-06-11] MEDS: PANTOPRAZOLE 40MG TAB (PROTONIX) PO SCH (08:57)
[2016-06-11] MEDS: ATORVASTATIN 20 MG TAB PO SCH (08:57)
[2016-06-11] MEDS: SENOKOT S TAB PO SCH ×2 (08:57→21:27)
[2016-06-11] MEDS: HEPARIN SOD (PORCINE) 5000 UNITS/ML VIAL SQ SCH ×2 (08:57→21:28)
[2016-06-11] MEDS: ASPIRIN 81 MG ENTERIC TAB PO SCH (08:58)
[2016-06-11] MEDS: METOPROLOL TART 50 MG TAB PO SCH ×2 (08:58→21:28)
[2016-06-11] MEDS: CLOPIDOGREL 75 MG TAB PO SCH (08:58)
[2016-06-11] MEDS: predniSONE 5 MG TAB PO SCH (08:58)
[2016-06-11] MEDS: MULTIVITAMINS/MINERALS THERAP 1 TAB PO SCH (08:58)
[2016-06-11] MEDS: MIRALAX *UNIT DOSE* 17GM PACKET PO SCH (08:59)
[2016-06-11] MEDS ORDERED: E-Z PAQUE 60% w/v SUSP 355ML BOTTLE As Ordered ONE (13:03)
[2016-06-11] MEDS ORDERED: VARIBAR PUDDING 40% w/v 230ML TUBE As Ordered ONE (13:03)
[2016-06-11] MEDS ORDERED: VARIBAR NECTAR 40% w/v 240ML SUSP BTL As Ordered ONE (13:03)
[2016-06-11] MEDS: FLUCONAZOLE 100 MG TAB PO SCH (17:42)
[2016-06-11 22:00] VITALS: BP 146/67
[2016-06-12] MEDS: FEBUXOSTAT 40 MG TABLET (ULORIC) PO SCH (05:55)
[2016-06-12] MEDS: SENOKOT S TAB PO SCH ×2 (05:56→20:21)
[2016-06-12] MEDS: ATORVASTATIN 20 MG TAB PO SCH (05:56)
[2016-06-12] MEDS: HEPARIN SOD (PORCINE) 5000 UNITS/ML VIAL SQ SCH ×2 (05:56→20:21)
[2016-06-12] MEDS: PANTOPRAZOLE 40MG TAB (PROTONIX) PO SCH (05:56)
[2016-06-12] MEDS: predniSONE 5 MG TAB PO SCH (05:57)
[2016-06-12] MEDS: MULTIVITAMINS/MINERALS THERAP 1 TAB PO SCH (05:57)
[2016-06-12] MEDS: GABAPENTIN 100 MG CAP PO SCH ×2 (05:57→20:21)
[2016-06-12] MEDS: CLOPIDOGREL 75 MG TAB PO SCH (05:57)
[2016-06-12] MEDS: ASPIRIN 81 MG ENTERIC TAB PO SCH (05:57)
[2016-06-12] MEDS: MIRALAX *UNIT DOSE* 17GM PACKET PO SCH (05:58)
[2016-06-12] MEDS: NORCO, ANEXSIA 5/325MG TABLET (HYDROcodone/ACETAMINOPHEN) PO PRN (05:58)
[2016-06-12 06:00] VITALS: BP 166/72
[2016-06-12] MEDS: METOPROLOL TART 50 MG TAB PO SCH ×3 (06:00→20:22)
[2016-06-12] MEDS: HumaLOG INSULIN (NovoLOG) PER UNIT SC SCH ×4 (06:16→21:00)
--- NOTE | 2016-06-12 09:16 | REP ---
MODIFIED BARIUM SWALLOW: Patient swallowed barium materials of varying consistencies under fluoroscopic observation. There is intermittent pooling of material in the vallecula. I did not visualize gisel aspiration. Please refer to the speech pathologists report for more details. Fluoroscopy time 1 minute 6 seconds. Signed by Kris Stone MD 06/12/2016 03:52 P
[2016-06-12] MEDS: ACETAMINOPHEN 325 MG TAB PO PRN (11:12)
[2016-06-12] MEDS ORDERED: LIDOCAINE 1% SDV 5 ML VIAL SQ ONE (11:15)
[2016-06-12] MEDS ORDERED: HEPARIN 1,000 UNITS/ML 10ML VIAL (FOR RADIOLOGY& DIALYSIS ONLY) IV ONE (11:15)
--- NOTE | 2016-06-12 12:17 | IPN ---
DATE: 06/12/2016 Mr. Rodriguez is seen during hemodialysis. He is feeling well and denies any fever or chills. He was reevaluated by speech therapy for recurrent aspiration. On physical exam, temperature 96.8 degrees Fahrenheit, heart rate 56 per minute and respiratory rate 18 per minute. Blood pressure 166/72 mmHg and oxygen saturation is 98% on 2 liters oxygen. His head is atraumatic. Neck veins are not abnormally distended. Pupils are equal and reactive to light and sclera is anicteric. Ears, nose and throat are unremarkable. Neck is supple and without any thyroid enlargement. Heart sounds are regular and lungs clear to auscultation. Abdomen soft and nontender. Bowel sounds are normal. There is no palpable organomegaly. Extremities have no cyanosis or clubbing. Chronic gangrenous changes of his toes are unchanged. The patient did not have any labs today. Yesterday, his hemoglobin was 12.2 and hematocrit 39.7. Sodium 139 and potassium 5.0. BUN was 20 and creatinine 5.79. PROBLEMS: 1. End-stage renal disease. The patient is currently being dialyzed and he is tolerating his dialysis treatment well. His AV fistula is working very well. 2. Hyperkalemia. His potassium level did improve with hemodialysis the last time. Today, he is being dialyzed with 2.0 mEq potassium bath which is likely to correct his potassium further. 3. Generalized weakness and deconditioning. The patient remains very weak. He has fdc facility (SNF) status at this time and will be going to a fdc for subacute rehab once his medical condition is optimized. 4. Anemia. His anemia has corrected and we will continue to monitor. His Aranesp has been stopped. 5. Coronary artery disease and peripheral vascular disease. The patient remains asymptomatic and will continue to monitor closely. Ischemic changes in the toes are chronic and unchanged. 6. Gout. The patient is asymptomatic on Uloric 40 mg daily.
[2016-06-12] MEDS: METOCLOPRAMIDE 5 MG TAB PO PRN (14:49)
[2016-06-12] MEDS: FLUCONAZOLE 100 MG TAB PO SCH (17:21)
[2016-06-12 22:00] VITALS: BP 169/72
[2016-06-13 06:00] VITALS: BP 160/69
[2016-06-13 06:47] LABS: CALCIUM LEVEL 8.9 MG/DL (8.8-10.2); CREATININE FOR GFR 5.69 MG/DL (0.70-1.30); GLOMERULAR FILTRATION RATE 10.3 (>35); MAGNESIUM LEVEL 2.1 MG/DL (1.8-2.4); POTASSIUM SERUM 4.3 MEQ/L (3.5-5.1)
[2016-06-13 07:16] LABS: MEAN CORPUSCULAR HEMOGLOBIN 31.5 pg (27.0-33.0); MEAN CORPUSCULAR HGB CONC 30.4 g/dl (32.0-36.5); MEAN CORPUSCULAR VOLUME 103.6 fl (80.0-96.0); RED CELL DISTRIBUTION WIDTH 15.5 % (11.5-14.5); WHITE BLOOD COUNT 7.7 K/mm3 (4.0-10.0)
[2016-06-13] MEDS: HEPARIN SOD (PORCINE) 5000 UNITS/ML VIAL SQ SCH ×2 (08:13→20:44)
[2016-06-13] MEDS: predniSONE 5 MG TAB PO SCH (08:13)
[2016-06-13] MEDS: FEBUXOSTAT 40 MG TABLET (ULORIC) PO SCH (08:13)
[2016-06-13] MEDS: ASPIRIN 81 MG ENTERIC TAB PO SCH (08:14)
[2016-06-13] MEDS: MULTIVITAMINS/MINERALS THERAP 1 TAB PO SCH (08:14)
[2016-06-13] MEDS: CLOPIDOGREL 75 MG TAB PO SCH (08:14)
[2016-06-13] MEDS: ATORVASTATIN 20 MG TAB PO SCH (08:14)
[2016-06-13] MEDS: SENOKOT S TAB PO SCH ×2 (08:14→20:43)
[2016-06-13] MEDS: METOPROLOL TART 50 MG TAB PO SCH ×2 (08:14→20:44)
[2016-06-13] MEDS: GABAPENTIN 100 MG CAP PO SCH ×2 (08:14→20:43)
[2016-06-13] MEDS: HumaLOG INSULIN (NovoLOG) PER UNIT SC SCH ×4 (08:15→20:44)
[2016-06-13] MEDS: MIRALAX *UNIT DOSE* 17GM PACKET PO SCH (08:15)
[2016-06-13] MEDS: PANTOPRAZOLE 40MG TAB (PROTONIX) PO SCH (08:15)
[2016-06-13] MEDS: NORCO, ANEXSIA 5/325MG TABLET (HYDROcodone/ACETAMINOPHEN) PO PRN ×2 (12:11→20:56)
--- NOTE | 2016-06-13 16:53 | IPNPDOC ---
Subjective Date Seen The patient was seen on 06/13/16. Subjective Chief Complaint/HPI The patient is a 80-year-old male admitted with a reason for visit of Generalized Weakness; Hyperkalemia. Events since last encounter No acute events, poor historian, Patient ALC pending placement, Denied F/C abd pain, cp Objective Physical Examination General Exam: Positive: Alert, Cooperative, No Acute Distress, Other Eye Exam: Positive: Conjunctiva & lids normal, PERRLA ENT Exam: Positive: Atraumatic, Mucous membr. moist/pink Neck Exam: Positive: Supple Chest Exam: Positive: Clear to auscultation, Normal air movement Heart Exam: Positive: Murmurs (very soft systolic murmur), Rate Normal, Regular Rhythm Telemetry: Positive: No significant arrhythmia Abdomen Exam: Positive: Normal bowel sounds, Soft, Negative: Tenderness Extremity Exam: Positive: Cyanosis, Other (bilateral dry gangrenous metatarsals ) Skin Exam: Positive: Breakdown Psych Exam: Positive: Oriented x 3 Assessment /Plan Problems (1) Generalized weakness Status: Chronic Response to Treatment: Progressing Discussed With: Patient Problem Specific Plan: Consult Specialist, Monitor Clinically Problem Text: Pending placement at this time. Continue with PT/OT. (2) Peripheral vascular disease Status: Chronic Problem Specific Plan: Monitor Clinically Problem Text: Chronic issues, stable at this time. asa, plavix (3) Hypertension Status: Chronic Problem Specific Plan: Monitor Clinically Problem Text: Beta blockade (4) Hyperlipidemia Status: Chronic Problem Text: Lipitor (5) Chronic respiratory failure with hypoxia Status: Chronic Response to Treatment: Stable Problem Specific Plan: Monitor Clinically (6) Diabetes Status: Chronic Problem Specific Plan: Monitor Clinically, Repeat Labs Problem Text: Insulin sliding scale (7) COPD (chronic obstructive pulmonary disease) Status: Chronic Response to Treatment: Stable Problem Specific Plan: Monitor Clinically Problem Text: Saturating well with 2L supplemental O2, at baseline. (8) Pulmonary hypertension Status: Chronic Problem Specific Plan: Monitor Clinically (9) Gout Status: Chronic Problem Specific Plan: Monitor Clinically Problem Text: Continue Uloric, prednisone. (10) CAD (coronary artery disease) Status: Chronic Problem Specific Plan: Monitor Clinically Problem Text: Continue statin, beta sacha, ASA/Plavix. 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 Regular schedule T/R/S. Follow as per nephrology, assistance appreciated. (13) Anemia Status: Chronic Discussed With: Patient Problem Specific Plan: Monitor Clinically, Repeat Labs Problem Text: Secondary to ESRD. Aranesp discontinued. LAURENCE as needed. (14) Hyperkalemia Status: Resolved Plan/VTE VTE Prophylaxis Ordered?: Yes (Heparin SC) Plan Diet: Continue Current Activity: Continue Current Therapy: PT, OT Pt and Family Services: Home Care, Other PFS Diagnostics: Repeat Labs in AM Anticipated Discharge: Sub Acute Rehab, Skilled Nursing Advance Directives: DNR Disposition Pending placement VS, I&O, 24H, Fishbone Vital Signs/I&O Vital Signs Date Time Temp Pulse Resp B/P Pulse Ox O2 Delivery O2 Flow Rate FiO2 06/13/16 12:41 17 06/13/16 09:00 Nasal Cannula 2.0 06/13/16 08:14 67 160/69 06/13/16 06:00 97.2 98 I&O- Last 24 Hours up to 6 AM 06/13/16 06:00 Intake Total 0 ml Output Total 2000 ml Balance -2000 ml Laboratory Data 24H LABS Laboratory Tests 2 06/12/16 16:52: Bedside Glucose (Misc Panel) 133H 06/12/16 21:03: Bedside Glucose (Misc Panel) 122H 06/13/16 06:07: Anion Gap 7L, Blood Urea Nitrogen 17, Creatinine 5.69H, Sodium Level 141, Potassium Level 4.3, Chloride Level 101, Carbon Dioxide Level 33H, Calcium Level 8.9, Glomerular Filtration Rate 10.3L, Magnesium Level 2.1 06/13/16 11:46: Bedside Glucose (Misc Panel) 106 06/13/16 16:42: Bedside Glucose (Misc Panel) 149H CBC/BMP Laboratory Tests 06/13/16 06:07 Calcium Level 8.9, Red Blood Count 3.94 L, Mean Corpuscular Volume 103.6 H, Mean Corpuscular Hemoglobin 31.5, Mean Corpuscular Hemoglobin Concent 30.4 L, Red Cell Distribution Width 15.5 H ENRIQUE INFANTE MD Jun 13, 2016 16:53
[2016-06-13] MEDS: FLUCONAZOLE 100 MG TAB PO SCH (17:41)
[2016-06-13 22:00] VITALS: BP 128/58
[2016-06-13] MEDS: ACETAMINOPHEN 325 MG TAB PO PRN (23:47)
[2016-06-14] VITALS (8 sets, daily range): BP systolic 107–140; BP diastolic 51–70
[2016-06-14] MEDS: SENOKOT S TAB PO SCH ×2 (05:33→21:01)
[2016-06-14] MEDS: FEBUXOSTAT 40 MG TABLET (ULORIC) PO SCH (05:33)
[2016-06-14] MEDS: PANTOPRAZOLE 40MG TAB (PROTONIX) PO SCH (05:34)
[2016-06-14] MEDS: HEPARIN SOD (PORCINE) 5000 UNITS/ML VIAL SQ SCH ×2 (05:34→21:00)
[2016-06-14] MEDS: CLOPIDOGREL 75 MG TAB PO SCH (05:34)
[2016-06-14] MEDS: MULTIVITAMINS/MINERALS THERAP 1 TAB PO SCH (05:34)
[2016-06-14] MEDS: ATORVASTATIN 20 MG TAB PO SCH (05:34)
[2016-06-14] MEDS: predniSONE 5 MG TAB PO SCH (05:34)
[2016-06-14] MEDS: ASPIRIN 81 MG ENTERIC TAB PO SCH (05:34)
[2016-06-14] MEDS: MIRALAX *UNIT DOSE* 17GM PACKET PO SCH (05:35)
[2016-06-14] MEDS: GABAPENTIN 100 MG CAP PO SCH ×2 (05:35→21:00)
[2016-06-14] MEDS: HumaLOG INSULIN (NovoLOG) PER UNIT SC SCH ×4 (07:30→19:47)
[2016-06-14] MEDS: TIOTROPIUM INHALER/CAPSULE (SPIRIVA) INH SCH (08:00)
[2016-06-14] MEDS: METOPROLOL TART 50 MG TAB PO SCH ×2 (08:01→21:00)
[2016-06-14] MEDS: ADVAIR DISKUS 500/50 INH PWD INH SCH ×2 (09:00→20:03)
[2016-06-14 11:27] LABS: ABG BASE EXCESS 2.5 (-2.0-2.0); ABG HCO3 28.3 MEQ/L (22.0-26.0); ABG PARTIAL PRESSURE CO2 48.4 mmHg (35.0-45.0); ABG PARTIAL PRESSURE O2 120.4 mmHg (75.0-100.0); ABG STANDARD HCO3 26.7 MEQ/L (22.0-26.0); ABG TOTAL CO2 29.8 MEQ/L (23.0-31.0); ABG pH (ARTERIAL) 7.385 UNITS (7.350-7.450)
[2016-06-14 11:30] LABS: BASO % 0.2 % (0.0-1.0); EOS # 0.1 K/mm3 (0.0-0.50); EOS % 1.3 % (0.0-3.0); LARGE UNSTAINED CELL # 0.2 K/mm3 (0.0-0.4); LARGE UNSTAINED CELL % 2.3 % (0.0-4.0); LYMPH # 1.3 K/mm3 (1.5-4.5); LYMPH % 12.5 % (24.0-44.0); MEAN CORPUSCULAR HGB CONC 31.1 g/dl (32.0-36.5); MEAN CORPUSCULAR VOLUME 102.8 fl (80.0-96.0); MONO # 0.3 K/mm3 (0.0-0.8); MONO % 2.8 % (0.0-5.0); NEUTROPHILS # 8.4 K/mm3 (1.8-7.7); NEUTROPHILS % 80.9 % (36.0-66.0); PLATELET COUNT, AUTOMATED 132 k/mm3 (150-450); RED CELL DISTRIBUTION WIDTH 15.5 % (11.5-14.5); WHITE BLOOD COUNT 10.4 K/mm3 (4.0-10.0)
[2016-06-14] MEDS ORDERED: IPRATROPIUM 0.5MG/ALBUTEROL 2.5MG INH SOL UD 3ML (DUONEB)(J7620) NEB PRN (11:30)
[2016-06-14 12:00] LABS: ALBUMIN 3.3 GM/DL (3.2-5.2); ALBUMIN/GLOBULIN RATIO 0.87 (1.00-1.93); ALKALINE PHOSPHATASE 80 U/L (45-117); ALT/SGPT 16 U/L (12-78); ANION GAP 8 MEQ/L (8-16); AST/SGOT 15 U/L (15-37); BILIRUBIN,TOTAL 0.4 MG/DL (0.2-1.0); BLOOD UREA NITROGEN 13 MG/DL (7-18); CALCIUM LEVEL 8.8 MG/DL (8.8-10.2); CARBON DIOXIDE LEVEL 31 MEQ/L (21-32); CHLORIDE LEVEL 99 MEQ/L (98-107); GLOMERULAR FILTRATION RATE 13.5 (>35); GLUCOSE, FASTING 157 MG/DL (83-110); POTASSIUM SERUM 4.4 MEQ/L (3.5-5.1); SODIUM LEVEL 138 MEQ/L (136-145); TOTAL PROTEIN 7.1 GM/DL (6.4-8.2)
--- NOTE | 2016-06-14 12:04 | ECGEPIP ---
Stationary ECG Study [facility] Test Date: 2016-06-14 Pat Name: EVE GANN Department: Room: I5863-70 Gender: M [employer]: ROBBI : 1935 Requested By: NICOLA Grace Order Number: [id number] Reading MD: Nils Daniel Measurements Intervals [place] Rate: 69 P: 18 RI: 165 QRS: 5 QRSD: 83 T: 60 QT: 396 QTc: 425 Interpretive Statements SINUS RHYTHM NONSPECIFIC ST & T-WAVE ABNORMALITY Motion artifact Electronically Signed On 06-14-2016 12:04:46 EST by Nils Daniel
--- NOTE | 2016-06-14 12:08 | REP ---
PORTABLE CHEST: AP portable view of the chest was performed and compared to prior study of 05/24/2016. Bibasilar interstitial fibrosis appears stable with no definite superimposed acute infiltrate. Cardiomediastinal silhouette is unchanged. Heart is mildly enlarged. IMPRESSION: Mild cardiomegaly. Chronic fibrotic changes without definite superimposed acute infiltrate. Signed by Kris Stone MD 06/14/2016 07:59 P
[2016-06-14] MEDS ORDERED: LIDOCAINE 1% SDV 5 ML VIAL SC ONE (12:15)
[2016-06-14] MEDS ORDERED: HEPARIN 1,000 UNITS/ML 10ML VIAL (FOR RADIOLOGY& DIALYSIS ONLY) IV ONE (12:15)
[2016-06-14] MEDS: methylPREDNISolone INJ 125 MG/2 ML VIAL (J2930) IV SCH ×2 (12:36→21:00)
[2016-06-14] MEDS: AZITHROMYCIN INJ 500 MG, VIAL MATE ADAPTER 1 EACH in D5W 250 ML IV SCH (12:37)
--- NOTE | 2016-06-14 14:19 | REP ---
PORTABLE CHEST: AP portable view of the chest is performed. There is placement of the left internal jugular central venous catheter and the tip is at the junction of the left brachiocephalic vein and superior vena cava. There is no pneumothorax. Cardiomediastinal silhouette is unchanged. Bibasilar interstitial opacities are unchanged. IMPRESSION: Placement of left central venous catheter with no pneumothorax. Signed by Kris Stone MD 06/14/2016 08:00 P
[2016-06-14] MEDS: NORCO, ANEXSIA 5/325MG TABLET (HYDROcodone/ACETAMINOPHEN) PO PRN ×2 (14:39→21:23)
[2016-06-14] MEDS: IPRATROPIUM 0.5MG/ALBUTEROL 2.5MG INH SOL UD 3ML (DUONEB)(J7620) NEB SCH ×3 (15:08→20:14)
[2016-06-14] MEDS ORDERED: SODIUM CHLORIDE 0.9% INJ 10 ML SYR IV PRN (15:15)
[2016-06-14] MEDS: FLUCONAZOLE 100 MG TAB PO SCH (18:29)
--- NOTE | 2016-06-14 20:16 | IPN ---
DATE: 06/14/2016 SUBJECTIVE: The patient was seen and examined at the bedside today in the morning during hemodialysis. The patient was tolerating the hemodialysis well today. However, midway during hemodialysis, the patient started complaining of shortness of breath. He became acutely tachypneic, diaphoretic with cold, clammy skin and respiratory distress. By that time, he had received almost half of his dialysis and 1300 mL of fluid had been removed. Rapid response was called. STAT complete blood count (CBC), comprehensive metabolic panel (CMP), troponin, lactate, electrocardiogram (EKG) and chest x-ray were ordered, and rapid response team transferred the patient to intensive care unit (ICU). REVIEW OF SYSTEMS: Initially, when I saw the patient this morning, he did not have any active complaints. He denied any fevers, chills, rigors, headache, nausea, vomiting or chest pain, pain abdomen, constipation or diarrhea. However, during the rapid response, the patient was tachypneic and in respiratory distress. OBJECTIVE: VITAL SIGNS: Temperature is 95.6 degrees Fahrenheit, blood pressure is 126/60, pulse is 70, respiratory rate of 24, saturating 100% on nasal cannula at four liters. INTAKE AND OUTPUT: There is no urine output recorded. Ultrafiltration with hemodialysis today was one liter. Weight in the bed scale is 96.7 kg. PHYSICAL EXAMINATION: GENERAL: The patient is awake, alert, oriented times three, lying in the bed in moderate respiratory distress. HEAD/NECK: Extraocular muscles intact. Pupils equal, round, and reactive to light. Mucous membranes are moist. Neck is supple. There is no jugular venous distention (JVD). CARDIOVASCULAR: S1, S2, regular rate. No murmur, rub, or gallop. RESPIRATORY: Decreased breath sounds at bases and mild expiratory rhonchi bilaterally at the bases. ABDOMEN: Soft. Positive bowel sounds. Nontender. No ascites. No organomegaly. EXTREMITIES: No clubbing or cyanosis. The patient actually has dry gangrenous lesions on the bilateral lower extremities. CENTRAL NERVOUS SYSTEM (CVICU NURSE): No focal neurological deficit. Power is 5/5 in all extremities. SKIN: No rashes or ulcers apart from the gangrenous lesions on bilateral toes. LABORATORY DATA: CBC shows a WBC of 10.4, hemoglobin 12.4, platelets are 132. ABG done today showed a pH of 7.38, pCO2 48.4, pO2 is 120, bicarbonate 28.3, oxygen saturation is 98.7. BMP showed sodium 138, potassium 4.4, chloride 99, bicarbonate 31, BUN 13, creatinine 4.5. Lactic acid was 1.4. Calcium is 8.8. BNP was 388. Albumin is 3.3. IMAGING: A chest x-ray done today showed mild cardiomegaly, chronic fibrotic changes without definite superimposed acute infiltrate. CURRENT MEDICATIONS: The patient's current medications were all reviewed by me. He has been started on azithromycin 500 mg intravenous (IV) every 24 hours. He has been started on nebulizations around the clock every six hours, and he is on Advair and Spiriva as well. There is no other change in the medications at this time. ASSESSMENT: An 80-year-old male with past medical history of end-stage renal disease on hemodialysis, admitted this time because of generalized weakness and deconditioning, missing hemodialysis. He is awaiting [facility], but patient became acutely short of breath during hemodialysis today. PLAN: 1. Acute respiratory distress. The patient has been transferred to ICU. Echocardiogram is pending. I appreciate pulmonary critical care service input. They have the patient on nebulizations and long-term bronchodilators. Initial set of troponins is negative. The patient has extensive cardiac history and history of stenting, and history of peripheral vascular disease in the past as well. It is possible that during hemodialysis, he might have had cardiac stunning causing acute respiratory distress and shortness of breath. The patient's symptoms significantly improved a few hours after hemodialysis procedure. 2. End-stage renal disease on hemodialysis. The patient was dialyzed for almost 1-1/2 hours before he got short of breath. He could not finish his treatment. No urgent need to do another treatment today. We shall evaluate the patient tomorrow for any need to do hemodialysis. His regular dialysis days are Thursday, , Thursday. 3. Anemia in end-stage renal disease. The patient's hemoglobin is 12.4. No need of Aranesp at this time. 4. Chronic obstructive pulmonary disease (COPD). The patient has already been started on steroids, nebulizations. Rest of the management is as per pulmonary disease recommendations. The plan of care was discussed with the rapid response team, with the hospitalist team, and with pulmonary critical care team at the bedside.
--- NOTE | 2016-06-14 20:17 | IPN ---
DATE: 06/14/2016 Rapid response called at 11 a.m. to 11:40 a.m. REASON FOR RAPID RESPONSE: Dyspnea. LOCATION: Hemodialysis unit. The patient was an 80-year-old male patient with underlying medical history of end-stage renal disease, on hemodialysis Thursday, , Thursday, chronic obstructive pulmonary disease (COPD) on 2 liters oxygen at home, chronic systolic congestive heart failure, history of coronary artery disease with stents, history of anemia of chronic disease, hypertension, type 2 diabetes, gout, gastroesophageal reflux disease (GERD), history of peripheral vascular disease with gangrene of bilateral lower extremity toes, and difficulty ambulating. Patient initially presented after missing dialysis sessions. Reported weak and tired. Presented to the emergency room. Found to have a potassium of 6.6. Nephrology was consulted. Patient previously also admitted to the hospital for weakness and generalized inability to ambulate. Has refused nursing facility previously. With prolonged hospital stay. Denies any fevers, rigors, chest pain. During this hospital stay, physical therapy (PT), occupational therapy (OT) was done. Patient's home medication was continued. Nephrology was consulted for dialysis. Hypertension medication was continued. Sugar was controlled, and hyperkalemia has resolved after dialysis. Subsequently, patient was made alternative level of care (ALC) pending placement at correction facility, but earlier today, rapid response was called during dialysis with dyspnea. Patient was seen and examined at dialysis unit. As per dialysis nurse, patient had fluid removal of 1.3 liters. Has not completed dialysis. Blood pressure 173/63, heart rate of 80, respirations tachypneic into 30s and 40s, pulse oximetry saturating 94% on 4 liters nasal cannula. Oxygen supplementation was given. Patient was transferred to intensive care unit. Chest x-ray and labs were gotten. EKG shows sinus rhythm at [address] segment changes at V1/V2, which were also present previously. Cardiac enzymes were sent and were negative. C-reactive protein was also sent. Chest x-ray showed no significant infiltrates or consolidation. Patient's condition progressively improved with oxygen supplementation. Subsequently, nebulizer treatment was also given. Patient was placed on Advair, DuoNeb, azithromycin for anti inflammatory effect, Solu-Medrol for intravenous (IV) steroids, Spiriva, and currently patient's respirations slowly are returning to baseline saturation at heart rate of 74, respiration rate of 20, speaking in full sentences. Blood pressure 140/67, pulse oximetry 99% on 2 liters nasal cannula. Likely etiology acute bronchospasm, likely due to acute COPD exacerbation, possible aspiration. Will continue to monitor patient in intensive care unit (ICU) overnight to see how patient does. Patient's family was called. Faby, patient's daughter, was informed, and update was given. Triple-lumen central line was placed at bedside. Please refer to full note. Triple-lumen central line was placed for venous access given multiple attempts with IV were unsuccessful. Rapid response terminated at 11:40 a.m. Estimated critical time exclusive of procedure 40 minutes.
[2016-06-14] MEDS: ACETAMINOPHEN 325 MG TAB PO PRN (21:00)
[2016-06-14] MEDS: SODIUM CHLORIDE 0.9% INJ 10 ML SYR IV SCH (21:01)
[2016-06-14] MEDS: zolPIDEM TARTRATE 10MG TAB PO PRN (23:52)
[2016-06-15] MEDS: IPRATROPIUM 0.5MG/ALBUTEROL 2.5MG INH SOL UD 3ML (DUONEB)(J7620) NEB SCH ×4 (01:35→20:03)
[2016-06-15] MEDS: methylPREDNISolone INJ 125 MG/2 ML VIAL (J2930) IV SCH (04:05)
[2016-06-15] MEDS: SODIUM CHLORIDE 0.9% INJ 10 ML SYR IV SCH ×3 (04:05→21:21)
[2016-06-15 04:06] VITALS: BP 129/63
[2016-06-15 04:42] LABS: MEAN CORPUSCULAR HEMOGLOBIN 32.1 pg (27.0-33.0); MEAN CORPUSCULAR HGB CONC 31.2 g/dl (32.0-36.5); MEAN CORPUSCULAR VOLUME 102.9 fl (80.0-96.0); RED CELL DISTRIBUTION WIDTH 15.5 % (11.5-14.5); WHITE BLOOD COUNT 5.9 K/mm3 (4.0-10.0)
[2016-06-15 04:50] LABS: CALCIUM LEVEL 8.4 MG/DL (8.8-10.2); CREATININE FOR GFR 6.31 MG/DL (0.70-1.30); GLOMERULAR FILTRATION RATE 9.1 (>35); POTASSIUM SERUM 5.1 MEQ/L (3.5-5.1)
[2016-06-15 08:00] VITALS: BP 139/65
[2016-06-15] MEDS: TIOTROPIUM INHALER/CAPSULE (SPIRIVA) INH SCH (08:00)
[2016-06-15] MEDS: MULTIVITAMINS/MINERALS THERAP 1 TAB PO SCH (08:18)
[2016-06-15] MEDS: FEBUXOSTAT 40 MG TABLET (ULORIC) PO SCH (08:18)
[2016-06-15] MEDS: HumaLOG INSULIN (NovoLOG) PER UNIT SC SCH ×4 (08:18→21:00)
[2016-06-15] MEDS: ATORVASTATIN 20 MG TAB PO SCH (08:18)
[2016-06-15] MEDS: METOPROLOL TART 50 MG TAB PO SCH ×2 (08:19→21:21)
[2016-06-15] MEDS: ASPIRIN 81 MG ENTERIC TAB PO SCH (08:19)
[2016-06-15] MEDS: PANTOPRAZOLE 40MG TAB (PROTONIX) PO SCH (08:19)
[2016-06-15] MEDS: SENOKOT S TAB PO SCH ×2 (08:19→21:21)
[2016-06-15] MEDS: CLOPIDOGREL 75 MG TAB PO SCH (08:20)
[2016-06-15] MEDS: MIRALAX *UNIT DOSE* 17GM PACKET PO SCH (08:20)
[2016-06-15] MEDS: HEPARIN SOD (PORCINE) 5000 UNITS/ML VIAL SQ SCH ×2 (08:20→21:20)
[2016-06-15] MEDS: GABAPENTIN 100 MG CAP PO SCH ×2 (08:20→21:21)
[2016-06-15] MEDS: ADVAIR DISKUS 500/50 INH PWD INH SCH ×2 (08:46→20:01)
[2016-06-15] MEDS: AZITHROMYCIN INJ 500 MG, VIAL MATE ADAPTER 1 EACH in D5W 250 ML IV SCH (12:13)
[2016-06-15 14:00] VITALS: BP 159/81
--- NOTE | 2016-06-15 14:05 | IPNPDOC ---
Subjective Date Seen The patient was seen on 06/15/16. Subjective Chief Complaint/HPI The patient is a 80-year-old male admitted with a reason for visit of Generalized Weakness; Hyperkalemia. Events since last encounter No acute events overnight, Respiration back to baseline. Denied cp/abd pain/sob/ f/c. tolerating oral Objective Physical Examination General Exam: Positive: Alert, Cooperative, No Acute Distress, Other Eye Exam: Positive: Conjunctiva & lids normal, PERRLA ENT Exam: Positive: Atraumatic, Mucous membr. moist/pink Neck Exam: Positive: Supple Chest Exam: Positive: Clear to auscultation, Normal air movement, Wheezing Heart Exam: Positive: Murmurs (very soft systolic murmur), Rate Normal, Regular Rhythm Telemetry: Positive: No significant arrhythmia Abdomen Exam: Positive: Normal bowel sounds, Soft, Negative: Tenderness Extremity Exam: Positive: Cyanosis, Other (bilateral dry gangrenous metatarsals ) Skin Exam: Positive: Breakdown Psych Exam: Positive: Oriented x 3 Assessment /Plan Problems (1) Generalized weakness Status: Chronic Response to Treatment: Progressing Discussed With: Patient Problem Specific Plan: Consult Specialist, Monitor Clinically Problem Text: Pending placement at this time. Continue with PT/OT. (2) Peripheral vascular disease Status: Chronic Problem Specific Plan: Monitor Clinically Problem Text: Chronic issues, stable at this time. asa, plavix (3) Hypertension Status: Chronic Problem Specific Plan: Monitor Clinically Problem Text: Beta blockade (4) Hyperlipidemia Status: Chronic Problem Text: Lipitor (5) Chronic respiratory failure with hypoxia Status: Chronic Response to Treatment: Stable Problem Specific Plan: Monitor Clinically (6) Diabetes Status: Chronic Problem Specific Plan: Monitor Clinically, Repeat Labs Problem Text: Insulin sliding scale (7) COPD (chronic obstructive pulmonary disease) Status: Acute Response to Treatment: Stable Problem Specific Plan: Monitor Clinically Problem Text: Patient as acutely bronchospastic during HD 3/4 advair, Spiriva, neb, steroid taper. Saturating well with 2L supplemental O2, at baseline. (8) Pulmonary hypertension Status: Chronic Problem Specific Plan: Monitor Clinically (9) Gout Status: Chronic Problem Specific Plan: Monitor Clinically Problem Text: Continue Uloric, prednisone. (10) CAD (coronary artery disease) Status: Chronic Problem Specific Plan: Monitor Clinically Problem Text: Continue statin, beta sacha, ASA/Plavix. 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 Regular schedule T/R/S. Follow as per nephrology, assistance appreciated. (13) Anemia Status: Chronic Discussed With: Patient Problem Specific Plan: Monitor Clinically, Repeat Labs Problem Text: Secondary to ESRD. Aranesp discontinued. LAURENCE as needed. (14) Hyperkalemia Status: Resolved Plan/VTE VTE Prophylaxis Ordered?: Yes (Heparin SC) Plan Diet: Continue Current Activity: Continue Current Therapy: PT, OT Pt and Family Services: Home Care, Other PFS Diagnostics: Repeat Labs in AM Anticipated Discharge: Sub Acute Rehab, Custodial Advance Directives: DNR Disposition placement, VS, I&O, 24H, Fishbone Vital Signs/I&O Vital Signs Date Time Temp Pulse Resp B/P Pulse Ox O2 Delivery O2 Flow Rate FiO2 06/15/16 11:05 Nasal Cannula 2.0 06/15/16 08:19 82 139/65 06/15/16 08:00 96.8 18 98 I&O- Last 24 Hours up to 6 AM 06/15/16 06:00 Intake Total 730 ml Output Total 1000 ml Balance -270 ml Laboratory Data 24H LABS Laboratory Tests 2 06/14/16 16:40: Bedside Glucose (Misc Panel) 197H 06/14/16 18:11: Creatine Kinase MB 1.0, Creatine Kinase MB Relative Index 5.00H, Total Creatine Kinase 20L, Troponin I < 0.02 06/14/16 19:39: Bedside Glucose (Misc Panel) 234H 06/15/16 04:04: Anion Gap 8, Blood Urea Nitrogen 29#H, Creatinine 6.31H, Sodium Level 137, Potassium Level 5.1, Chloride Level 101, Carbon Dioxide Level 28, Calcium Level 8.4L, Glomerular Filtration Rate 9.1L, Magnesium Level 2.0 06/15/16 11:31: Bedside Glucose (Misc Panel) 211H CBC/BMP Laboratory Tests 06/15/16 04:04 Calcium Level 8.4 L, Red Blood Count 3.62 L, Mean Corpuscular Volume 102.9 H, Mean Corpuscular Hemoglobin 32.1, Mean Corpuscular Hemoglobin Concent 31.2 L, Red Cell Distribution Width 15.5 H ENRIQUE INFANTE MD Jun 15, 2016 14:05
[2016-06-15] MEDS: methylPREDNISolone INJ 40 MG/1 ML VIAL (J2920) IV SCH (15:39)
[2016-06-15] MEDS ORDERED: methylPREDNISolone INJ 125 MG/2 ML VIAL (J2930) IV SCH (16:00)
[2016-06-15] MEDS: FLUCONAZOLE 100 MG TAB PO SCH (17:16)
[2016-06-15 22:00] VITALS: BP 141/63
[2016-06-16] MEDS: zolPIDEM TARTRATE 10MG TAB PO PRN (01:03)
[2016-06-16] MEDS: IPRATROPIUM 0.5MG/ALBUTEROL 2.5MG INH SOL UD 3ML (DUONEB)(J7620) NEB SCH ×4 (01:24→20:48)
[2016-06-16] MEDS: methylPREDNISolone INJ 40 MG/1 ML VIAL (J2920) IV SCH (05:09)
[2016-06-16] MEDS: SODIUM CHLORIDE 0.9% INJ 10 ML SYR IV SCH ×3 (05:09→20:57)
[2016-06-16 06:00] VITALS: BP 157/73
[2016-06-16] MEDS: TIOTROPIUM INHALER/CAPSULE (SPIRIVA) INH SCH (08:00)
[2016-06-16] MEDS: ADVAIR DISKUS 500/50 INH PWD INH SCH ×2 (08:35→20:45)
[2016-06-16] MEDS: HEPARIN SOD (PORCINE) 5000 UNITS/ML VIAL SQ SCH ×2 (09:03→20:57)
[2016-06-16] MEDS: MIRALAX *UNIT DOSE* 17GM PACKET PO SCH (09:03)
[2016-06-16] MEDS: GABAPENTIN 100 MG CAP PO SCH ×2 (09:03→20:57)
[2016-06-16] MEDS: SENOKOT S TAB PO SCH ×2 (09:03→20:57)
[2016-06-16] MEDS: FEBUXOSTAT 40 MG TABLET (ULORIC) PO SCH (09:04)
[2016-06-16] MEDS: ATORVASTATIN 20 MG TAB PO SCH (09:04)
[2016-06-16] MEDS: METOPROLOL TART 50 MG TAB PO SCH ×2 (09:04→20:40)
[2016-06-16] MEDS: CLOPIDOGREL 75 MG TAB PO SCH (09:04)
[2016-06-16] MEDS: PANTOPRAZOLE 40MG TAB (PROTONIX) PO SCH (09:04)
[2016-06-16] MEDS: MULTIVITAMINS/MINERALS THERAP 1 TAB PO SCH (09:04)
[2016-06-16] MEDS: predniSONE 10 MG TAB PO SCH (09:04)
[2016-06-16] MEDS: ASPIRIN 81 MG ENTERIC TAB PO SCH (09:04)
[2016-06-16] MEDS: HumaLOG INSULIN (NovoLOG) PER UNIT SC SCH ×4 (09:05→20:38)
[2016-06-16] MEDS: AZITHROMYCIN INJ 500 MG, VIAL MATE ADAPTER 1 EACH in D5W 250 ML IV SCH (12:12)
[2016-06-16 13:10] VITALS: BP 130/67
[2016-06-16] MEDS: NORCO, ANEXSIA 5/325MG TABLET (HYDROcodone/ACETAMINOPHEN) PO PRN (13:38)
--- NOTE | 2016-06-16 14:07 | IPNPDOC ---
Subjective Date Seen The patient was seen on 06/16/16. Subjective Chief Complaint/HPI The patient is a 80-year-old male admitted with a reason for visit of Generalized Weakness; Hyperkalemia. Events since last encounter No acute events overnight, Reported improved respiration. Denied CP/SOB/f/c/abd pain/n/v Objective Physical Examination General Exam: Positive: Alert, Cooperative, No Acute Distress, Other Eye Exam: Positive: Conjunctiva & lids normal, PERRLA ENT Exam: Positive: Atraumatic, Mucous membr. moist/pink Neck Exam: Positive: Supple Chest Exam: Positive: Clear to auscultation, Normal air movement, Wheezing Heart Exam: Positive: Murmurs (very soft systolic murmur), Rate Normal, Regular Rhythm Telemetry: Positive: No significant arrhythmia Abdomen Exam: Positive: Normal bowel sounds, Soft, Negative: Tenderness Extremity Exam: Positive: Cyanosis, Other (bilateral dry gangrenous metatarsals ) Skin Exam: Positive: Breakdown Psych Exam: Positive: Oriented x 3 Assessment /Plan Problems (1) CAD (coronary artery disease) Status: Chronic Problem Specific Plan: Monitor Clinically Problem Text: D/w Dr Bonilla, episode of dyspnea and diaphoresis possibly secondary to cardiac genic (myocardiac stun), vs COPD exacerbation, Dr Bonilla would prefer cardiac evaluation given this is the second episode tele, EKG, Ce neg x2, Continue statin, beta sacha, ASA/Plavix. d/w cardiology in [place] Dr Heller, will request a formal evaluation from Dr Pineda prior to considering transfer for cardiac cath (2) COPD (chronic obstructive pulmonary disease) Status: Acute Response to Treatment: Stable Problem Specific Plan: Monitor Clinically Problem Text: Patient as acutely bronchospastic during HD 3/4 advair, Spiriva, neb, steroid taper. Saturating well with 2L supplemental O2, at baseline. (3) Generalized weakness Status: Chronic Response to Treatment: Progressing Discussed With: Patient Problem Specific Plan: Consult Specialist, Monitor Clinically Problem Text: Pending placement at this time. Continue with PT/OT. (4) Peripheral vascular disease Status: Chronic Problem Specific Plan: Monitor Clinically Problem Text: Chronic issues, stable at this time. asa, plavix (5) Hypertension Status: Chronic Problem Specific Plan: Monitor Clinically Problem Text: Beta blockade (6) Hyperlipidemia Status: Chronic Problem Text: Lipitor (7) Chronic respiratory failure with hypoxia Status: Chronic Response to Treatment: Stable Problem Specific Plan: Monitor Clinically (8) Diabetes Status: Chronic Problem Specific Plan: Monitor Clinically, Repeat Labs Problem Text: Insulin sliding scale (9) Pulmonary hypertension Status: Chronic Problem Specific Plan: Monitor Clinically (10) Gout Status: Chronic Problem Specific Plan: Monitor Clinically Problem Text: Continue Uloric, prednisone. 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 Regular schedule T/R/S. Follow as per nephrology, assistance appreciated. (13) Anemia Status: Chronic Discussed With: Patient Problem Specific Plan: Monitor Clinically, Repeat Labs Problem Text: Secondary to ESRD. Aranesp discontinued. LAURENCE as needed. (14) Hyperkalemia Status: Resolved (15) Hematoma Status: Acute Problem Text: small hematoma on the patient's neck due to TLC, size unchanged, patient was on asa, plavix and heparin SQ, will monitor, dc TLC if able to get peripheral IV, TLC placed because unable to get IV access despite multiple attempts during rapid response Plan/VTE VTE Prophylaxis Ordered?: Yes (Heparin SC) Plan Diet: Continue Current Activity: Continue Current Therapy: PT, OT Pt and Family Services: Home Care, Other PFS Diagnostics: Repeat Labs in AM Anticipated Discharge: Sub Acute Rehab, [facility] Advance Directives: DNR Disposition potential transfer to [place] for cath vs placement VS, I&O, [facility] Vital Signs/I&O Vital Signs Date Time Temp Pulse Resp B/P Pulse Ox O2 Delivery O2 Flow Rate FiO2 06/16/16 13:39 Nasal Cannula 2.0 06/16/16 13:38 18 06/16/16 09:04 79 130/70 06/16/16 06:00 98.3 95 I&O- Last 24 Hours up to 6 AM 06/16/16 06:00 Intake Total 695 ml Output Total 0 ml Balance 695 ml Laboratory Data 24H LABS Laboratory Tests 2 06/15/16 16:34: Bedside Glucose (Misc Panel) 130H 06/15/16 20:22: Bedside Glucose (Misc Panel) 196H 06/16/16 06:23: Bedside Glucose (Misc Panel) 201H 06/16/16 11:47: Bedside Glucose (Misc Panel) 243H ENRIQUE INFANTE MD Jun 16, 2016 14:07
--- NOTE | 2016-06-16 14:26 | RO ---
DATE OF PROCEDURE: 06/14/2016 PREOPERATIVE DIAGNOSES: Poor venous access. Acute chronic obstructive pulmonary disease (COPD) exacerbation. End stage renal disease. POSTOPERATIVE DIAGNOSES: Poor venous access. Acute chronic obstructive pulmonary disease (COPD) exacerbation. End stage renal disease. PROCEDURE PERFORMED: Triple lumen central line. SURGEON: Dr. Suzie Gardner OB SCRUB TECH: ANESTHESIA: 1% local lidocaine. ESTIMATED BLOOD LOSS: 20 mL. SEDATION: None. VENTILATION: 4 liters nasal cannula oxygen. The patient was initially prepped in the usual fashion. ChloraPrep was used to clean the site. Initially, attempt was done on the right side of the patient's neck, targeting the right internal jugular. Ultrasound was used. 1% lidocaine was injected. Needle was inserted. Flash of blood was obtained. Subsequently, attempt was made to pass the wire, except it was unsuccessful, feeling resistance. Subsequently, needle with a plastic catheter was also used and catheter was advancing to the vessel with good blood return and also attempt was made to pass the wire, but feeling resistance. Subsequently, needle and catheter were all removed. Pressure was pressed for hemostasis. The patient's left neck was prepped with ChloraPrep. Sterile field was reestablished on the left side of patient's neck. Ultrasound was used. 1% lidocaine was used for local anesthetic injection with ultrasound guidance. Subsequently, needle was inserted. Flash of blood was obtained. Site was dilated with a dilator. Triple lumen central line was placed with Seldinger technique. All three ports were flushed. Good blood return was flushed. Also, prior to dilation, wire placement was confirmed with ultrasound and the wire seemed to be inside the internal jugular. Subsequently, the triple lumen central line was secured with [place] stitches. The site was cleaned and sterile dressing was placed over the site. X-ray was ordered for confirmation of the central line. The patient tolerated the procedure with no complications.
[2016-06-16 15:30] VITALS: BP 126/55
[2016-06-16] MEDS: FLUCONAZOLE 100 MG TAB PO SCH (17:23)
[2016-06-16 20:00] VITALS: BP 107/53
[2016-06-17] VITALS: BP 140/74
--- NOTE | 2016-06-17 00:40 | DSES ---
DATE OF ADMISSION: 05/24/2016 DATE OF DISCHARGE: Date of discharge 06/17/2016 pending transfer to [facility] for cardiac catheterization. FINAL DIAGNOSES: Unstable angina, possible stent stenosis. Acute chronic obstructive pulmonary disease (COPD) exacerbation. Generalized weakness. Peripheral vascular disease. Hypertension. Dyslipidemia. Chronic hypoxic respiratory failure. Diabetes type 2. End-stage renal disease. Pulmonary hypertension. Gout. Dry gangrene of bilateral foot. Anemia of chronic disease. Hyperkalemia. Hematoma on the neck, small. PRIMARY CARE PROVIDER AND ROUTE CDL DRIVER: Dr. Bass RUBBER GRINDER: Dr. Benito. Case was discussed with Dr. Bruno. HISTORY OF PRESENT ILLNESS: This is an 80-year-old gentleman with extensive past medical history, including end-stage renal disease, coronary arterial disease, poor compliance, peripheral vascular disease with external iliac stent and celiac stent, dry gangrene of bilateral toes, COPD, gout, chronic congestive heart failure (CHF) with diastolic dysfunction, dyslipidemia, chronic hypoxic respiratory failure, type 2 diabetes. Patient was recently discharged from the hospital on 05/19/2016, returned to the hospital for several days of generalized weakness. On 05/24/2016, found to be hyperkalemic, admitted for dialysis and, as per patient, wanted to be placed at a care home facility given patient was not able to take care of himself at home. Patient's home medication was continued. Patient was monitored with potassium, and home medication was continued. Nephrology was consulted for continuation of dialysis. Patient was ultimately made alternate level of care pending placement. During the hospital stay, physical therapy was done. During the hospital stay, while undergoing dialysis, a rapid response was called because patient was acutely dyspneic and diaphoretic. Subsequently, patient was transferred to intensive care unit (ICU), requiring a triple-lumen central line given poor venous access. Left internal jugular (IJ) triple-lumen central line was placed. EKG was done. Cardiac enzymes were negative times two. It was thought patient had acute COPD exacerbation. Subsequently, steroid, nebulizer, and inhaler treatment was started. Case was discussed with patient's customer contact specialist, Dr. Bonilla, who was also covering for Dr. Bass. As per Dr. Bonilla, this is the second episode this has happened. Dr. Bonilla was concerned about possible myocardiac stunning due to narrowing of the cardiac stent and was wondering if additional cardiac intervention is needed. Patient had been undergoing cardiac catheterization about 6 months ago. Subsequently, case was discussed with patient's primary mother helper and also the patient's mother helper at [facility] given patient's extensive cardiac and vascular history, low threshold for catheterization; therefore, arrangements were made for patient to be transferred to [facility] for possible cardiac catheterization. Patient currently is comfortable. Reported no shortness of breath, no chest pain. Denies any fevers, chills, nausea, vomiting, abdominal pain. VITAL SIGNS: Temperature 98.6, pulse 76, respirations 18, blood pressure 126/55, pulse oximetry 96% on 1 liter nasal cannula. LABORATORY: WBC 5.9, hemoglobin and hematocrit 11.6/37.2, platelets 159. Chemistry: Sodium 137, potassium 5.1, chloride 101, bicarbonate 28, BUN 29, creatinine 6.3. Dialysis day Thursday, , Thursday. Cardiac enzymes negative times two. INPATIENT MEDICATIONS: Patient is on: - azithromycin 500 mg IV daily for anti-inflammatory effect and COPD exacerbation - acetaminophen 325 mg by mouth every 4 hours as needed - [place] 5/325 every 6 hours as needed - DuoNeb inhalation every 2 hours as needed - nebulizer treatment every 6 hours standing - aspirin 81 mg - Lipitor 20 mg by mouth daily - Plavix 75 mg by mouth daily - Senokot S two tablets by mouth twice a day - Uloric 40 mg by mouth daily - Diflucan (patient has completed) - gabapentin 100 mg by mouth twice a day - heparin 5000 units subcutaneously twice a day - insulin via scale before food and nightly - Reglan 5 mg by mouth three times a day as needed - metoprolol 50 mg by mouth twice a day - multivitamin one tablet by mouth daily - Protonix 40 mg by mouth daily - MiraLAX one pack by mouth daily - prednisone taper to 30 mg by mouth daily - Advair 500/50 mcg inhalation twice a day - Spiriva inhalation daily - Ambien 10 mg by mouth nightly as needed DISCHARGE INSTRUCTIONS: Patient instructed to followup with cardiology at [facility] for further care. Return to the hospital if symptoms worsen. Continue hemodialysis Thursday, , Thursday. Patient will eventually need placement in a care home facility after hospitalization.
[2016-06-17] MEDS: IPRATROPIUM 0.5MG/ALBUTEROL 2.5MG INH SOL UD 3ML (DUONEB)(J7620) NEB SCH ×3 (02:00→13:56)
[2016-06-17 04:00] VITALS: BP 138/74
[2016-06-17 05:47] VITALS: BP 142/82
[2016-06-17] MEDS: CLOPIDOGREL 75 MG TAB PO SCH (05:47)
[2016-06-17] MEDS: METOPROLOL TART 50 MG TAB PO SCH (05:47)
[2016-06-17] MEDS: SODIUM CHLORIDE 0.9% INJ 10 ML SYR IV SCH ×2 (05:47→13:13)
[2016-06-17] MEDS: FEBUXOSTAT 40 MG TABLET (ULORIC) PO SCH (05:47)
[2016-06-17] MEDS: GABAPENTIN 100 MG CAP PO SCH (05:47)
[2016-06-17] MEDS: SENOKOT S TAB PO SCH (05:47)
[2016-06-17] MEDS: MULTIVITAMINS/MINERALS THERAP 1 TAB PO SCH (05:48)
[2016-06-17] MEDS: PANTOPRAZOLE 40MG TAB (PROTONIX) PO SCH (05:48)
[2016-06-17] MEDS: ATORVASTATIN 20 MG TAB PO SCH (05:48)
[2016-06-17] MEDS: predniSONE 10 MG TAB PO SCH (05:48)
[2016-06-17] MEDS: ASPIRIN 81 MG ENTERIC TAB PO SCH (05:48)
--- NOTE | 2016-06-17 05:48 | IPN ---
DATE OF VISIT: 06/15/2016 SUBJECTIVE: The patient was seen and examined at the bedside today in the intensive care unit (ICU). He is totally asymptomatic at this time. He denies any active chest pain or shortness of breath. He is hemodynamically stable. REVIEW OF SYSTEMS: The patient denies any fever, chills, rigors, headache, nausea, vomiting, chest pain, shortness of breath, pain in the abdomen, constipation or diarrhea. The rest of the review of systems is negative. OBJECTIVE: VITAL SIGNS: Temperature 96.8 degrees Fahrenheit, blood pressure 139/65, pulse 86, respiratory rate 18, saturating 98% on nasal cannula. Intake and output: The patient got hemodialysis done yesterday, 1 liter of ultrafiltration was done. Weight on the bed scale is 97 kg today. PHYSICAL EXAMINATION: GENERAL: The patient is awake, alert, oriented time three, laying in bed in no apparent distress. HEAD/NECK: Extraocular muscles intact. Pupils equal, round, reactive to light. Moist mucous membranes. Neck is supple. The patient has a small hematoma on the left side and he has a triple lumen catheter in the left internal jugular (IJ). CARDIOVASCULAR: S1, S2, regular rate, no murmurs, rubs, gallops. RESPIRATORY: Chest is clear to auscultation bilaterally. Bilateral equal air entry. No rales or rhonchi. ABDOMEN: Soft, positive bowel sounds. Nontender, no ascites, no organomegaly. EXTREMITIES: No clubbing or cyanosis. The patient has dry gangrenous lesions on the bilateral toes. CENTRAL NERVOUS SYSTEM (SCHOOL GUARD): No focal neurologic deficits. Power is 5/5 in all extremities. SKIN: Warm and dry. There is no other lesions or ulcers apart from the gangrene in the toes. LAB REVIEW: CBC showed WBC 5.9, hemoglobin 11.6, platelets 159. BMP shows sodium 137, potassium 5.1, chloride 101, bicarbonate 28, BUN 29, creatinine 6.3. Calcium is 8.4, magnesium is 2. CURRENT MEDICATIONS: The patient's medications were all reviewed by me. His Solu-Medrol dose has been decreased to 40 mg every 12 hours and there is no other change in the medications today as compared with yesterday. ASSESSMENT: 80-year-old male with past medical history of end-stage renal disease on hemodialysis admitted this time because of generalized weakness and deconditioning, missing hemodialysis. Nephrology service is following the patient for management of end-stage renal disease. The patient was actually alternate level of care and waiting for [facility] placement but he had sudden shortness of breath during hemodialysis yesterday so he was transferred to the intensive care unit. PLAN: 1. Acute respiratory distress. I looked at the patient's cardiac catheterization from a previous admission at [facility]. The patient has extensive coronary artery disease. Initially coronary artery bypass grafting was recommended but later on the patient only got the catheterization. I strongly believe that the patient's acute respiratory distress, diaphoresis, old clammy skin was because of cardiovascular etiology although the EKG did not show any ST elevation myocardial infarction (STEMI) and troponins were negative. I strongly believe that we need to discuss with his oliver filter operator at [facility] for any further options including a cardiac catheterization or surgery if indicated at this point. The plan will be discussed with the hospitalist team as well. 2. End-stage renal disease on hemodialysis. The patient did not complete his hemodialysis session yesterday; however, there are no signs of fluid overload, electrolytes are acceptable. No urgent need of hemodialysis today. I shall evaluate the patient tomorrow morning for any urgent need to do hemodialysis in the morning. His regular dialysis days are Thursday, , Thursday. 3. chronic pulmonary obstructive disease (COPD). The patient has been started on intravenous (IV) azithromycin, IV Solu-Medrol and nebulizations. The Solu-Medrol dose is being tapered down. Antibiotic duration is as per the primary team. The patient's shortness of breath is significantly better at this time. 4. Hypertension. The patient's blood pressure is optimized at this time. Continue the current dose of metoprolol 50 mg by mouth twice a day. The plan of care was discussed with the patient's registered nurse (RN) this morning at the bedside and with the hospitalist team, Dr. Suzie MONGE
[2016-06-17 06:01] LABS: MEAN CORPUSCULAR HEMOGLOBIN 32.1 pg (27.0-33.0); MEAN CORPUSCULAR HGB CONC 30.7 g/dl (32.0-36.5); MEAN CORPUSCULAR VOLUME 104.4 fl (80.0-96.0); RED CELL DISTRIBUTION WIDTH 15.7 % (11.5-14.5); WHITE BLOOD COUNT 14.3 K/mm3 (4.0-10.0)
[2016-06-17 06:30] LABS: CALCIUM LEVEL 8.8 MG/DL (8.8-10.2); CREATININE FOR GFR 9.39 MG/DL (0.70-1.30); GLOMERULAR FILTRATION RATE 5.8 (>35); MAGNESIUM LEVEL 2.4 MG/DL (1.8-2.4)
[2016-06-17] MEDS: HumaLOG INSULIN (NovoLOG) PER UNIT SC SCH ×2 (07:22→13:13)
[2016-06-17] MEDS: MIRALAX *UNIT DOSE* 17GM PACKET PO SCH (07:22)
[2016-06-17] MEDS: HEPARIN SOD (PORCINE) 5000 UNITS/ML VIAL SQ SCH (07:22)
[2016-06-17] MEDS: ADVAIR DISKUS 500/50 INH PWD INH SCH (07:26)
[2016-06-17] MEDS: TIOTROPIUM INHALER/CAPSULE (SPIRIVA) INH SCH (07:26)
[2016-06-17 07:45] VITALS: BP 149/65
--- NOTE | 2016-06-17 09:03 | IPN ---
DATE: 06/16/2016 SUBJECTIVE: This is an 80-year-old male who is seen and examined at bedside. This morning, denied any chest pain, shortness of breath, nausea, vomiting. States that he has had multiple stents, at least six or seven stents, sometime within the last year. CABG was not able to be performed due to concern for complications and high risk at that time. This morning, he requests to have diet advanced, though was evaluated by speech and swallow therapist and was recommended only for thickened liquids as he has high risk for aspiration. No episodes of cough after his diet was changed. REVIEW OF SYSTEMS: No chest pain, shortness of breath, palpitations, nausea, vomiting, diarrhea, fevers, chills, cough. Wants to know if he needs to go to [place] for surgery. VITAL SIGNS: Blood pressure 130/70. Heart rate 79. Temperature 98.3. Respiration rate 18. Pulse oximetry 95% on 2 liters nasal cannula. Intake and output the last 24 hours 690, no output documented. Weight is 98.1 kg. General: Patient was lying in bed comfortable in no acute distress. He is alert, awake, oriented times three, pleasant, cooperative, chronically ill appearing. [id number] at bedside. HEENT: Normocephalic, atraumatic. Moist oral mucosa. Neck supple. His left IJ is in place. Hematoma persists. Trachea midline. Could not appreciate jugular venous distention (JVD) due to large neck size. Chest: Symmetric chest rise. No accessory muscle use. Breath sounds diminished bilateral lung bases with crepitations. Cardiovascular: Regular sounding, distant. S1, S2 present. Could not appreciate murmurs, rubs or gallops. Abdomen is soft, nontender, nondistended. Bowel sounds present. No guarding. Extremities: He continues to have dry gangrenous black eschar on the tips of his metatarsals. There is drying of his skin. Difficult to appreciate pulses. LABORATORY DATA: WBC 5.9, hemoglobin 11.6, hematocrit 37.2, platelets 159. Sodium 137, potassium 5.1, chloride 101, carbon dioxide 28, BUN 29 and creatinine 6.31 and yesterday was 13 and 4.5, calcium 8.4, magnesium 2. Blood cultures negative after five days. Influenza screen negative. Chest x-ray on 06/14/2016 showed no pneumothorax. CURRENT MEDICATIONS: - Tylenol 325 mg every 4 hours - [place] every 6 hours as needed - aspirin 81 - Lipitor 20 - Plavix 75 - Uloric 40 mg daily - Neurontin 100 mg twice a day - Reglan as needed - metoprolol tartrate 50 mg twice a day - Protonix 40 mg daily - MiraLAX one packet daily - Ambien 10 mg at bedtime - Diflucan 200 daily - insulin sliding scale - heparin 5000 units twice a day - Senokot two tabs twice a day - DuoNeb - Advair - Spiriva - azithromycin - prednisone 30 mg daily IMPRESSION: Mr. Rodriguez is an 80-year-old male with end stage renal disease on hemodialysis previously admitted for generalized weakness and deconditioning and missed multiple hemodialysis who unfortunately was a rapid response two days ago due to acute episodes of shortness of breath during dialysis. This morning, there is fairly significant improvement with his respiration and has since been transferred out of monitored floor. PLAN: 1. Acute respiratory distress, resolved. Previously was monitored in the intensive care unit (ICU). At this time, it remains concerning that he developed acute respiratory distress secondary to cardiac stunning from the impact of hemodialysis. He actually had to stop hemodialysis early two days previously. He has a rather extensive cardiac history including at least six to seven stents within the last year. Primary team has discussed the case with Dr. Bruno for further assistance regarding need for transfer to tertiary care center for further investigation of his coronary vessels. 2. End stage renal disease. Unfortunately, his dialysis had to be stopped early due to acute respiratory failure two days ago. Awaiting cardiology's assistance to see whether his respiratory distress was secondary to cardiac stunning from the hemodialysis. In the meantime, the patient will be continued with fluid restriction to prevent fluid overload because he could not tolerate hemodialysis due to reason mentioned above. 3. Anemia of chronic disease. Hemoglobin showed mild drop today. However, he remains stable. No need for transfusion at this time. 4. Chronic obstructive pulmonary disease (COPD). Currently is on steroid, nebulizer and azithromycin by primary team. 5. Hematoma of neck. Case discussed with Dr. Gardner and recommend consideration of IJ access removal. My preceptor for this patient encounter was Dr. Bonilla. The preceptor was physically present in the building during the encounter and was fully available. As needed, all aspects of the patient interview, examination, medical decision making process, and medical care plan development were reviewed and approved by the preceptor. The preceptor is aware and concurs with the plan as stated in the body of this note and will attest to such by his/her cosignature. MARIPOSA
[2016-06-17] MEDS ORDERED: LIDOCAINE 1% SDV 5 ML VIAL SC ONE (10:45)
[2016-06-17] MEDS ORDERED: HEPARIN 1,000 UNITS/ML 10ML VIAL (FOR RADIOLOGY& DIALYSIS ONLY) IV ONE (10:45)
[2016-06-17 13:10] VITALS: BP 132/60
[2016-06-17] MEDS: AZITHROMYCIN INJ 500 MG, VIAL MATE ADAPTER 1 EACH in D5W 250 ML IV SCH (13:13)
--- NOTE | 2016-06-17 14:06 | IPNPDOC ---
Text Note Date of Service The patient was seen on 06/17/16. NOTE Patient has been evaluated on 06/17/16, with no acute changes overnight. I have spoken to Dr. Bruno who has arranged transfer with the accepting physician, Dr. Griffith at [facility]. Please see dictation summary completed by Dr. Suzie Gardner on 06/16/16. VS,Fishbone, I+O VS, Fishbone, I+O Laboratory Tests 06/17/16 05:45 Calcium Level 8.8, Red Blood Count 3.57 L, Mean Corpuscular Volume 104.4 H, Mean Corpuscular Hemoglobin 32.1, Mean Corpuscular Hemoglobin Concent 30.7 L, Red Cell Distribution Width 15.7 H Vital Signs Date Time Temp Pulse Resp B/P Pulse Ox O2 Delivery O2 Flow Rate FiO2 06/17/16 08:00 Nasal Cannula 2.0 06/17/16 07:45 94.9 71 22 149/65 94 I&O- Last 24 Hours up to 6 AM 06/17/16 06:00 Intake Total 840 ml Output Total 0 ml Balance 840 ml ROBERTA VIEYRA MD Jun 17, 2016 14:06
[2016-06-17] MEDS: METOCLOPRAMIDE 5 MG TAB PO PRN (14:19)
--- NOTE | 2016-06-17 19:42 | IPN ---
DATE: 06/17/2016 SUBJECTIVE: This is an 80-year-old male who is seen and examined in dialysis room. Is tolerating dialysis well without any complaint of chest pain, shortness of breath. REVIEW OF SYSTEMS: Denies any fevers, chills, nausea, vomiting, chest pain, shortness of breath, palpitations, diarrhea or constipation. Other review of systems is otherwise negative. OBJECTIVE: VITAL SIGNS: Blood pressure 149/65, heart rate 71, temperature 94.9, respirations 22, pulse oximetry 94% on two liters nasal cannula. INTAKE AND OUTPUT YESTERDAY: 840 and no output documented. His last dialysis was on 06/14/2016. Weight is 98.1 kg. PHYSICAL EXAMINATION: GENERAL: The patient is alert, awake, oriented times three. Pleasant, cooperative, chronically ill-appearing, lying in dialysis bed without any acute distress. HEENT: Extraocular movement intact. NECK: Supple. Still has hematoma on his left neck and triple-lumen catheter is in place. Area appears dry. HEART: Normal S1, S2. Regular sounding systolic murmur in second intercostal border without radiation to carotid, 2/6. PULMONARY: Breath sounds diminished with occasional crepitation in the lung bases. ABDOMEN: Soft, nontender, nondistended. Bowel sounds present. Could not appreciate organomegaly secondary to body habitus. EXTREMITIES: Trace edema with dry gangrenous lesions bilateral lower extremities. Has dry skin. SKIN: Appears dry and well perfused. LABORATORY DATA: WBC 14.3 increased from yesterday 5.9, hemoglobin 11.5, hematocrit 37.3, platelets 168. Sodium 137, potassium 5, chloride 99, carbon dioxide 25, BUN 76, creatinine 9.39 , glucose 256, calcium 8.8, magnesium 2.4. CURRENT MEDICATIONS: - [place] - aspirin 81 mg daily - Lopressor 50 mg twice a day - heparin 5000 daily - azithromycin - prednisone 30 mg by mouth daily All the medications have been reviewed. No adjustments have been made to his medication list overnight. IMPRESSION AND PLAN: Mr. Rodriguez is an 80-year-old male with end stage renal disease on hemodialysis previously admitted for generalized weakness and deconditioning and missed multiple hemodialysis who unfortunately was a rapid response two days ago due to acute episodes of shortness of breath during dialysis. PLAN: 1. End-stage renal disease on hemodialysis. Is tolerating hemodialysis well so far very well. We hope to have 2.5 to three kg removed today if he continues to be tolerating dialysis. His regular dialysis days are Thursday, , and Thursday. Will monitor closely due to prior episode of respiratory distress during dialysis. 2. Acute respiratory failure, resolved. This episode occurred while he was receiving hemodialysis which we believe was secondary to cardiac cause. He has had multiple catheterizations in the past with multiple stent placements. Could not have coronary artery bypass graft (CABG) performed due to high-risk surgery. Currently, the patient is planned to be transferred to [facility] by primary team for further evaluation of his cardiac condition once completion of dialysis. 3. Chronic obstructive pulmonary disease (COPD). He is currently on azithromycin , previously on Solu-Medrol. Currently is on prednisone. 4. Anemia of chronic disease. Hemoglobin did not show any significant change compared to yesterday. No need for transfusion at this time. The patient is currently in the process of being transferred to [facility] for further cardiac evaluation later today. My preceptor for this patient encounter was Dr. Jayesh Bonilla. The preceptor was physically present in the building during the encounter and was fully available as needed. All aspects of the patient interview, examination, medical decision making process, and medical care plan development were reviewed and approved by the preceptor. The preceptor is aware and concurs with the plan as stated in the body of this note and will attest to such by his/her co-signature. MARIPOSA
== END 2016-06-17 14:55 | disposition short-term general hospital (02) | DRG 640 ==
LOC: M ED 07:49 → M MSPAV 09:34 → M ED INP 09:35 → M PCU 16:09 → M MSPAV 05-27 18:31 → M ICU 06-14 11:16 → M MSPAV 06-15 10:16 → M PCU 06-16 13:33
PROVIDERS: ADMIT Internal Medicine; ATTEND Hospitalist
PROC: 5A1D60Z (ICD-10-PCS; principal; 2016-05-24)
PROC: 05HM33Z Insertion of Infusion Device into Right Internal Jugular Vein, Percutaneous Approach (ICD-10-PCS; 2016-06-14)
DX: E87.5 Hyperkalemia (principal); N18.6 End stage renal disease; J96.11 Chronic respiratory failure with hypoxia; I13.2 Hypertensive heart and chronic kidney disease with heart failure and with stage 5 chronic kidney disease, or end stage renal disease; I50.22 Chronic systolic (congestive) heart failure; E11.52 Type 2 diabetes mellitus with diabetic peripheral angiopathy with gangrene; J44.1 Chronic obstructive pulmonary disease with (acute) exacerbation; I25.700 Atherosclerosis of coronary artery bypass graft(s), unspecified, with unstable angina pectoris; M96.840 Postprocedural hematoma of a musculoskeletal structure following a musculoskeletal system procedure; D63.1 Anemia in chronic kidney disease; Z66 Do not resuscitate; R13.10 Dysphagia, unspecified; M10.30 Gout due to renal impairment, unspecified site; K59.00 Constipation, unspecified; R53.1 Weakness; G25.2 Other specified forms of tremor; I27.2 Other secondary pulmonary hypertension; E78.5 Hyperlipidemia, unspecified; Z79.82 Long term (current) use of aspirin; Z79.4 Long term (current) use of insulin; Z79.52 Long term (current) use of systemic steroids; Z99.2 Dependence on renal dialysis; Z99.81 Dependence on supplemental oxygen; Z95.5 Presence of coronary angioplasty implant and graft; Z87.891 Personal history of nicotine dependence; Z79.891 Long term (current) use of opiate analgesic; Z91.15 Patient's noncompliance with renal dialysis; Y83.1 Surgical operation with implant of artificial internal device as the cause of abnormal reaction of the patient, or of later complication, without mention of misadventure at the time of the procedure

== ENCOUNTER → 2016-08-29 | Outpatient (CLI) | payer MEDICARE ==
[~2016-08-29] MED LIST changes: +DIFL200T PO; +DOCU100C PO; +NORC1TAB4 PO; -NORC5TAB PO
--- NOTE | 2016-08-29 13:59 | REP ---
Clinical: Left lower extremity erythema and swelling . Technique: Stone scale and color Doppler evaluation using linear high frequency transducer. Findings: Ultrasound examination of the left lower extremity deep venous structures from the common femoral vein to the popliteal vein demonstrates normal compressibility flow and wave patterns in response to respiration and augmentation. There is no evidence for deep venous thrombosis. Impression: No evidence for deep venous thrombosis. Signed by Ramesh Mc MD 08/29/2016 01:51 P
== END ==
LOC: M RAD 13:15
PROVIDERS: ATTEND Family Medicine
DX: M79.662 Pain in left lower leg (principal)

== ENCOUNTER → 2016-09-03 | Emergency (ER) | payer MEDICARE ==
[~2016-09-03] VITALS: Ht 172.7 cm; Wt 90.7 kg
[~2016-09-03] MED LIST changes: -ACET-654 PO; +ACET-654 PR; +ALBU83IN INH; +CALC1CAP PO; +CEFA1INJ5 IV; +DULC10SU2 PR; +ENEMENE6 PR; +GABA-282 PO; +INSUH10VL SC; +IPRASOL4 INH; +IPRATROPIUM 0.5MG/ALBUTEROL 2.5MG INH SOL UD 3ML (DUONEB)(J7620) NEB ONE; +MILKSUS PO; +MULT1TAB18 PO; +NITR0.4S14 SL; +ZOLP5TAB PO
[2016-09-03 20:00] LABS: BASO % 0.4 % (0.0-1.0); EOS # 0.1 K/mm3 (0.0-0.50); EOS % 0.7 % (0.0-3.0); LARGE UNSTAINED CELL # 0.2 K/mm3 (0.0-0.4); LARGE UNSTAINED CELL % 2.5 % (0.0-4.0); LYMPH # 0.9 K/mm3 (1.5-4.5); LYMPH % 9.8 % (24.0-44.0); MEAN CORPUSCULAR HEMOGLOBIN 33.6 pg (27.0-33.0); MEAN CORPUSCULAR HGB CONC 31.8 g/dl (32.0-36.5); MEAN CORPUSCULAR VOLUME 105.8 fl (80.0-96.0); MONO # 0.6 K/mm3 (0.0-0.8); MONO % 6.5 % (0.0-5.0); NEUTROPHILS # 7.8 K/mm3 (1.8-7.7); NEUTROPHILS % 80.2 % (36.0-66.0); PLATELET COUNT, AUTOMATED 173 k/mm3 (150-450); RED CELL DISTRIBUTION WIDTH 14.8 % (11.5-14.5); WHITE BLOOD COUNT 9.7 K/mm3 (4.0-10.0)
[2016-09-03 20:09] LABS: CREATININE FOR GFR 5.36 MG/DL (0.70-1.30); POTASSIUM SERUM 4.5 MEQ/L (3.5-5.1)
[2016-09-03 20:13] LABS: VENOUS BASE EXCESS -4.9 (-2.0-2.0); VENOUS O2 SATURATION 71.6 % (60.0-80.0); VENOUS PARTIAL PRESSURE CO2 40.7 mmHg (38.0-50.0); VENOUS PARTIAL PRESSURE O2 43.4 mmHg (30.0-50.0); VENOUS STANDARD HCO3 19.9 MEQ/L
[2016-09-03 22:11] VITALS: BP 182/85
--- NOTE | 2016-09-04 07:03 | REP ---
Clinical: Dyspnea and cough . Comparison: 09/03/2016 at 02:28 p.m. . Technique: AP and lateral. Findings: The mediastinum and cardiac silhouette are stable. The lung scott demonstrate chronic-appearing changes and basilar atelectasis cannot be excluded. The skeletal structures are intact and normal. Impression: Chronic stable changes similar to prior examination. Basilar atelectasis cannot be excluded. Signed by Ramesh Mc MD 09/04/2016 06:55 A
--- NOTE | 2016-09-04 08:11 | ECGEPIP ---
Stationary ECG Study [facility] - ED Test Date: 2016-09-03 Pat Name: EVE GANN Department: Room: - Gender: [facility] Administrative Assistant: tj : [id number] Requested By: ROSARIO Byers Order Number: [id number] Reading MD: Lauren Vernon Measurements Intervals [place] Rate: 70 P: 21 IA: 169 QRS: 7 QRSD: 74 T: 30 QT: 388 QTc: 420 Interpretive Statements SINUS RHYTHM POSSIBLE LEFT ATRIAL ENLARGEMENT LOW QRS VOLTAGE IN PRECORDIAL LEADS NSTTW ABNORMALITY SIMILAR 06/14/16 Electronically Signed On 09-04-2016 8:10:57 EDT by Lauren Vernon
== END | disposition home or self-care (01) ==
LOC: M ED 20:37
DX: R05 Cough (principal); R50.9 Fever, unspecified; I12.0 Hypertensive chronic kidney disease with stage 5 chronic kidney disease or end stage renal disease; E78.00 Pure hypercholesterolemia, unspecified; I25.2 Old myocardial infarction; I50.9 Heart failure, unspecified; E10.9 Type 1 diabetes mellitus without complications; F32.9 Major depressive disorder, single episode, unspecified; N18.6 End stage renal disease; Z99.2 Dependence on renal dialysis; Z99.81 Dependence on supplemental oxygen; R41.82 Altered mental status, unspecified; R91.8 Other nonspecific abnormal finding of lung field; Z79.899 Other long term (current) drug therapy; Z79.82 Long term (current) use of aspirin; Z79.52 Long term (current) use of systemic steroids

== ENCOUNTER → 2016-09-03 | Outpatient (REF) | payer MEDICARE ==
[~2016-09-03] MED LIST changes: -CEFA1INJ5 IV; -IPRATROPIUM 0.5MG/ALBUTEROL 2.5MG INH SOL UD 3ML (DUONEB)(J7620) NEB ONE
[2016-09-03 13:51] LABS: BASO % 0.6 % (0.0-1.0); EOS # 0.2 K/mm3 (0.0-0.50); EOS % 2.3 % (0.0-3.0); LARGE UNSTAINED CELL # 0.2 K/mm3 (0.0-0.4); LARGE UNSTAINED CELL % 1.9 % (0.0-4.0); LYMPH # 1.3 K/mm3 (1.5-4.5); LYMPH % 14.3 % (24.0-44.0); MEAN CORPUSCULAR HGB CONC 31.9 g/dl (32.0-36.5); MEAN CORPUSCULAR VOLUME 106.7 fl (80.0-96.0); MONO # 0.6 K/mm3 (0.0-0.8); MONO % 6.9 % (0.0-5.0); PLATELET COUNT, AUTOMATED 184 k/mm3 (150-450); RED CELL DISTRIBUTION WIDTH 15.2 % (11.5-14.5)
[2016-09-03 14:12] LABS: CALCIUM LEVEL 8.6 MG/DL (8.8-10.2); CREATININE FOR GFR 7.18 MG/DL (0.70-1.30); GLOMERULAR FILTRATION RATE 7.8 (>35); POTASSIUM SERUM 4.7 MEQ/L (3.5-5.1)
--- NOTE | 2016-09-03 15:00 | REP ---
Clinical: Fever . Comparison: 06/14/2016 . Findings: The mediastinum and cardiac silhouette are stable. The lung scott demonstrate chronic changes. Superimposed vascular congestion and basilar atelectasis cannot be excluded. No acute focal consolidation, effusion, or pneumothorax. Skeletal structures are intact. Impression: Chronic stable changes. Cannot exclude pulmonary vascular congestion or basilar atelectasis. Signed by Ramesh Mc MD 09/03/2016 02:52 P
== END ==
LOC: SKLAB3 12:40
PROVIDERS: ATTEND Family Medicine
DX: R50.9 Fever, unspecified (principal); R41.82 Altered mental status, unspecified; R91.8 Other nonspecific abnormal finding of lung field

== ENCOUNTER 2016-09-08 01:44 | Inpatient (IN) | payer MEDICARE, MEDICAID ==
[2016-09-08] VITALS (8 sets, daily range): BP systolic 98–153; BP diastolic 48–69
[~2016-09-08] VITALS: Ht 165.1 cm; Wt 88.5 kg
[~2016-09-08 01:44] MED LIST changes: -ALBU83IN INH; -CALC1CAP PO; -DULC10SU2 PR; -ENEMENE6 PR; -GABA-282 PO; -INSUH10VL SC; -IPRASOL4 INH; -MILKSUS PO; -MULT1TAB18 PO; -NITR0.4S14 SL; -ZOLP5TAB PO
[2016-09-08] MEDS ORDERED: NS 500 ML IV ONE (02:00)
[2016-09-08] MEDS ORDERED: ACETAMINOPHEN 650 MG SUPP PR ONE (02:00)
[2016-09-08] MEDS ORDERED: ACETAMINOPHEN 325 MG SUPP PR ONE (02:00)
[2016-09-08 02:25] LABS: MEAN CORPUSCULAR HEMOGLOBIN 33.6 pg (27.0-33.0); MEAN CORPUSCULAR HGB CONC 31.4 g/dl (32.0-36.5); PLATELET COUNT, AUTOMATED 167 k/mm3 (150-450); RED CELL DISTRIBUTION WIDTH 14.8 % (11.5-14.5); WHITE BLOOD COUNT 14.2 K/mm3 (4.0-10.0)
[2016-09-08 02:26] LABS: INR 1.21
[2016-09-08] MEDS ORDERED: VANCOMYCIN HCL 750 MG, VIAL MATE ADAPTER 1 EACH in D5W 250 ML IV ONE ×2 (02:30→06:00)
[2016-09-08] MEDS ORDERED: IMIPENEM/CILASTATIN 500 MG in D5W MINI-BAG PLUS 100 ML IV ONE (02:30)
[2016-09-08 02:40] LABS: ALBUMIN/GLOBULIN RATIO 0.81 (1.00-1.93); BILIRUBIN,DIRECT 0.3 MG/DL (0.0-0.2); BILIRUBIN,TOTAL 0.6 MG/DL (0.2-1.0); CALCIUM LEVEL 8.9 MG/DL (8.8-10.2); CREATININE FOR GFR 9.05 MG/DL (0.70-1.30); TOTAL PROTEIN 6.7 GM/DL (6.4-8.2)
[2016-09-08 02:47] LABS: POTASSIUM SERUM 5.5 MEQ/L (3.5-5.1)
[2016-09-08 02:48] LABS: MICROSCOPIC INDICATED? MAN YES (NO)
[2016-09-08 02:49] LABS: MICROSCOPIC EXAM UNSPUN
[2016-09-08 02:50] LABS: HYALINE CAST, URINE NONE SEEN /lpf (0-1); SQUAMOUS EPITHELIAL CELL URINE SMALL AMOUNT /hpf (SMALL AMT)
[2016-09-08 02:51] LABS: BACTERIA, URINE NONE SEEN
[2016-09-08] MEDS ORDERED: MULT1TAB18 PO (03:11)
[2016-09-08] MEDS ORDERED: TYLE325T5 PO (03:11)
[2016-09-08] MEDS ORDERED: CALC1CAP PO (03:11)
[2016-09-08] MEDS ORDERED: NORV5TAB PO (03:11)
[2016-09-08] MEDS ORDERED: ALBU83IN INH (03:11)
[2016-09-08] MEDS ORDERED: NITR0.4S14 SL (03:11)
[2016-09-08 03:27] LABS: BANDS 1 % (< 11)
[2016-09-08] MEDS ORDERED: METAL LOCK LOOP XX ONE (04:07)
[2016-09-08] MEDS ORDERED: ENEMENE6 PR (04:52)
[2016-09-08] MEDS ORDERED: INSUH10VL SC (04:52)
[2016-09-08] MEDS ORDERED: IPRASOL4 INH (04:52)
[2016-09-08] MEDS ORDERED: ZOLP5TAB PO (04:52)
[2016-09-08] MEDS ORDERED: DULC10SU2 PR (04:52)
[2016-09-08] MEDS ORDERED: MILKSUS PO (04:52)
[2016-09-08] MEDS ORDERED: GABA-282 PO (04:56)
[2016-09-08] MEDS ORDERED: NS 1,000 ML IV SCH (05:09)
[2016-09-08] MEDS ORDERED: ACETAMINOPHEN 650 MG SUPP PR PRN (05:15)
--- NOTE | 2016-09-08 05:27 | PHACANCOPD ---
PHARMACY VANCOMYCIN DOSING Pt Demographics Demographics Patient Age:81 , Weight:97.070 , Gender: male Adjusted Body Weight Date: 09/08/16, Adjusted Body Weight: [75] Kg Events Past 24 Hours Events Past 24 Hours: NO: Dialysis, Diuretic Therapy, Change in CrCl, Fever, Elevation in WBC, Pending Diagnostics, Pending Procedures, Other Vancomycin Vancomycin Target Ranges: 15-20 mcg/ml Vancomycin Load Y/N: Yes Load Dose Date Time Vancomycin Load Dose: 1500MG Date: 09-08 Time: 0600 Vancomycin Dose Date: 09/08/16. Current Vancomycin Dose: Intermittent Dosing?: Yes Labs Labs Item Value Date Time White Blood Count 14.2 K/mm3 H 09/08/16 0202 Creatinine 9.05 MG/DL H 09/08/16 0202 Blood Urea Nitrogen 70 MG/DL H 09/08/16 0202 Vital Signs Label Value Date Time Patient Temperature 100.3 degrees F 09/08/16 035 Temperature Source Temporal 09/08/16 035 Micro Microbiology 09/08/16 Blood Culture, Received Pending 09/08/16 Urine Culture, Received Pending Creatinine Clearance Date:09/08/16. Creatinine Clearance: [5.5]. Pending Labs Random 05-30 @ am Assessment and Plan Maintaining Current Dose?: Yes Reason for dose change: No Dose Change Pharmacist Note Pharmacist Note Date: 09/08/16. Pharmacist note:Dosing intermittent per levels with first random ordered for 05-30 @am. Will continue to monitor and make adjustments as needed. JAVIER MARTINS PHARMACY September 08, 2016 05:27
[2016-09-08] MEDS ORDERED: ALBUTEROL SULFATE 2.5 MG/0.5 ML INH NEB SOLN INH PRN (06:30)
[2016-09-08] MEDS ORDERED: BISACODYL 10 MG SUPP PR PRN (06:30)
[2016-09-08] MEDS ORDERED: MOM 30ML SUSPENSION UDC PO PRN (06:30)
[2016-09-08] MEDS ORDERED: GLUCOSE 4 GM CHEW TABLET PO PRN (06:45)
[2016-09-08] MEDS ORDERED: DEXTROSE 50% 50 ML SYRINGE IV PRN (06:45)
[2016-09-08] MEDS ORDERED: GLUCAGON FOR INJ 1 MG VIAL (J1610) SC PRN (06:45)
--- NOTE | 2016-09-08 07:02 | HPE ---
DATE OF ADMISSION: 09/08/2016 PRIMARY CARE PROVIDER: Dr. Clark The patient is from [facility] who was brought in today via ambulance due to a temperature as high as 107. The patient was found unresponsive by staff. Most of the history was obtained from the emergency room records and old records. The patient was recently hospitalized in May 2016 for generalized weakness and hyperkalemia. The patient has an extensive medical history including hemodialysis. Last admission was for hyperkalemia due to noncompliance and missing hemodialysis. Since then, the patient was discharged on June 16, 2016. He was first transferred to [facility] for cardiac catheterization and then he came back to [facility]. Today, the patient was sent for a reported temperature of 107 and pulse oximetry 60% on room air. Staff reported that the patient was "okay" an hour ago when they were rounding. Upon my exam, the patient was not responsive and not able to follow any commands or answer any questions. REVIEW OF SYSTEMS: Unable to obtain due to the patient's current mental status. PAST MEDICAL HISTORY: 1. Hemodialysis. 2. Hypertension. 3. Peripheral vascular disease with external iliac stenting and celiac stenting. 4. 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 5. Chronic obstructive pulmonary disease (COPD). 6. Coronary artery disease. 7. Gout. 8. Diastolic congestive heart failure. 9. Hyperlipidemia. 10. Chronic hypoxic respiratory failure. 11. Diabetes. PAST SURGICAL HISTORY: Unknown surgical history. ALLERGIES: No known drug allergies. SOCIAL HISTORY: The patient is a nonsmoker and lives at [facility]. HOME MEDICATIONS: - Tylenol 650 every 4 hours as needed for pain or fever - [place] 1 tablet every 4 hours as needed for pain - albuterol sulfate 2.5 mg inhaled at bedtime as needed dyspnea - Norvasc 5 mg daily - aspirin 81 mg daily - Lipitor 20 mg at bedtime - Dulcolax 10 mg per rectum daily as needed constipation - calcium by mouth three times a day - Plavix 75 mg daily - docusate sodium 200 mg by mouth daily - enema as needed bowel care for constipation - vitamin D once a month - Uloric 40 mg daily - gabapentin 300 mg by mouth twice a day - insulin sliding scale - metoprolol 50 mg by mouth twice a day - milk of magnesia as needed constipation - multivitamin 1 tablet daily - nitro as needed chest pain - Protonix 40 mg daily - MiraLax 17 grams by mouth daily - prednisone 5 mg by mouth daily - Ambien as needed as needed insomnia PHYSICAL EXAMINATION: Vitals: On admission, temperature was 104.8 initially, after Tylenol it went down to 98.5. Pulse is 98. Respiratory rate 22. Blood pressure initially was 139/61. Pulse oximetry 95% on non-rebreather, that was taken down to 6 liters and satting 98% now. HEENT: Pupils equal round and reactive. Neck: Supple. No jugular venous distention (JVD). Abdomen: Obese. Distended. Positive bowel sounds. Soft. Cardiac: Tachycardiac. Extremities: The patient has multiple bruising on the lower extremities as well as edema. Neurologic: Unable to obtain right now due to the patient's mental status. LABORATORY FINDINGS: WBC 14.2, hemoglobin 10.4, hematocrit 33.1, platelet count 167. Sodium 137, potassium 5.5, chloride 97, BUN 70, creatinine 9.05, AST 29, ALT 24. Urine hazy in appearance. IMAGING STUDIES: The patient only underwent a chest x-ray which is currently pending. ASSESSMENT/PLAN: 1. Unresponsiveness, unknown etiology at this time. Blood and urine cultures are pending. This may be secondary to sepsis plus or minus uremia plus or minus respiratory failure. We will check an ABG. We will check a CT of the head to rule out any acute etiology. We will admit the patient to the progressive care unit (PCU) and monitor on telemetry. We will continue neuro checks every 4 hours. 2. Fever. The patient received antibiotics in the emergency room, vancomycin and impenem. Blood and urine cultures are currently pending. 3. History of end-stage renal disease on hemodialysis. We will consult nephrology. 4. Hyperkalemia, likely secondary to kidney disease. 5. Leukocytosis of 14.2. 6. Diabetes. Since patient is currently not eating we will hold insulin. We will continue Accu-Cheks before meals and at bedtime. 7. History of peripheral vascular disease. We will continue the patient's home medications of aspirin and Plavix. 8. History of gout. 9. History of respiratory failure. We will order ABG and await chest x-ray. 10. Deep vein thrombosis (DVT) prophylaxis. Lovenox renal dose. Will sign out the patient to the [facility] group in the morning.
[2016-09-08 07:09] LABS: ABG BASE EXCESS -7.7 (-2.0-2.0); ABG PARTIAL PRESSURE CO2 43.5 mmHg (35.0-45.0); ABG PARTIAL PRESSURE O2 55.7 mmHg (75.0-100.0); ABG TOTAL CO2 20.3 MEQ/L (23.0-31.0); ABG pH (ARTERIAL) 7.258 UNITS (7.350-7.450)
--- NOTE | 2016-09-08 07:46 | REP ---
Clinical: Fever. Comparison: 09/03/2016. Findings: Mediastinum and cardiac silhouette are stable with mild cardiomegaly again suggested. Diffuse chronic interstitial changes are noted and superimposed atelectasis cannot be excluded. No obvious effusion. No pneumothorax. Skeletal structures intact. Impression: Chronic changes with possible superimposed atelectasis. Signed by Ramesh Mc MD 09/08/2016 07:37 A
[2016-09-08] MEDS: HumaLOG INSULIN (NovoLOG) PER UNIT SC SCH ×4 (07:54→21:00)
[2016-09-08] MEDS: IPRATROPIUM 0.5MG/ALBUTEROL 2.5MG INH SOL UD 3ML (DUONEB)(J7620) NEB SCH ×3 (08:00→19:07)
--- NOTE | 2016-09-08 08:46 | REP ---
Clinical: Unresponsive patient. Comparison: 04/23/2016. Findings: Age-related atrophy and microvascular ischemic changes are appreciated. The ventricles and sulci are symmetric. Stone-white differentiation is maintained. There is no evidence for acute intracranial hemorrhage, mass/mass effect, pathology or infarction. No extra-axial fluid collection. Calvarium is intact. Paranasal sinuses and mastoid air cells are clear. Impression: Age related atrophy and microvascular ischemic changes. No acute intracranial hemorrhage, infarction, or mass/mass effect. Signed by Ramesh Mc MD 09/08/2016 08:38 A
--- NOTE | 2016-09-08 08:49 | IPNPDOC ---
Subjective Date Seen The patient was seen on 09/08/16. Subjective Chief Complaint/HPI The patient is a 81-year-old male admitted with a reason for visit of Sepsis. Events since last encounter Patient remains unresponsive - moans with tactile stimulation but does not speak or open his eyes. Constitutional: Reports: Fever (Fever 104 on admission) Pulmonary: Reports: Dyspnea Gastrointestinal: Denies: Diarrhea, Constipation Objective Physical Examination General Exam: Positive: Other (Moans to tactile stimuli but meehan no open eyes. Looks dyspneic. Looks uncomfortabel at times.) Chest Exam: Positive: Diminished, Negative: Rales, Rhonchi, Wheezing Heart Exam: Positive: Rate Normal, Regular Rhythm Abdomen Exam: Positive: Normal bowel sounds, Soft, Tenderness (seems uncomfrotable to palaption) Extremity Exam: Positive: Other (BL feet with dry gangrene on all toes - chronic and stable. Leg leg with erythema to proximal soliz), Negative: Edema Assessment /Plan Problems (1) Sepsis Status: Acute Problem Text: Etiology remains uncertain. B/C, U/C pending. Left leg appears somewhat cellulitic therefore may be source of sepsis. Also h/o aspiration in past -acute resp. failure may reflect aspiration which could be source of sepsis. No reports of diarrhea to suggest C. Diff, but will monitor for this and send GI panel if diarrhea occurs (2) Acute and chronic respiratory failure with hypoxia Status: Acute Problem Text: Patient is DNR/DNI. ABG with hypoxemia despite 100% NRB. Continue nebs. Patient is on prednisone which I believe was tapered to 5 mg for previous COPD exacerbation. I will switch to IV Solumedrol He has h/o aspiration in past and possibly may have aspirated again Continue Zosyn/Vanco. (3) Cellulitis Status: Acute (4) Unresponsiveness Status: Acute Problem Text: Possibly from Uremia or sepsis. CT head ordered, but not stable enough for this currently. (5) ESRD (end stage renal disease) Status: Chronic Problem Text: Dr. Egan consulted. He plans to take patient to dialysis which will help his uremia and hyperkalemia. (6) Gangrene Status: Chronic Response to Treatment: Stable (7) CAD (coronary artery disease) Status: Chronic Response to Treatment: Stable Problem Text: unable to take pos currently therefor unable to take Stain/ASA/ Plavix (8) Diabetes Status: Chronic Response to Treatment: Stable Problem Text: Continue SSI (9) COPD (chronic obstructive pulmonary disease) Status: Chronic Response to Treatment: Stable (10) Diastolic CHF Status: Chronic Problem Text: Patient currently appears clinically dry. Was receiving IVF but held. Defer to renal further IVF replacement. (11) Gout Status: Chronic Response to Treatment: Stable (12) Peripheral vascular disease Status: Chronic Response to Treatment: Stable Plan/VTE VTE Prophylaxis Ordered?: Yes (Lovenox) Plan/Urinary Catheter Reason for insertion/continuin: Critical Pt monitoring VS, I&O, 24H, Fishbone Vital Signs/I&O Vital Signs Date Time Temp Pulse Resp B/P (MAP) Pulse Ox O2 Delivery O2 Flow Rate FiO2 09/08/16 06:00 98.5 92 22 119/64 (82) 98 Nasal Cannula 6.0 Laboratory Data 24H LABS Laboratory Tests 2 09/08/16 02:02: Neutrophils 86H, Band Neutrophils 1, Lymphocytes (Manual) 12L, Monocytes (Manual ) 1, Platelet Estimate NORMAL, Macrocytosis 2+, Prothrombin Time 15.4H, Prothromb Time International Ratio 1.21, Activated Partial Thromboplast Time 37.1, Anion Gap 17H, Glomerular Filtration Rate 6.0L, Lactic Acid Level 2.0, Calcium Level 8.9, Aspartate Amino Transf (AST/SGOT) 29, Alanine Aminotransferase (ALT/SGPT) 24, Alkaline Phosphatase 62, Total Bilirubin 0.6, Direct Bilirubin 0.3H, Total Protein 6.7, Albumin 3.0L, Albumin/Globulin Ratio 0.81L 09/08/16 02:36: Bedside Urine Color (LAB) YELLOW, Bedside Urine Appearance (LAB) HAZYH, Bedside Urine pH (LAB) 5.0, Bedside Urine Specific [place] (LAB 1.020, Bedside Urine Protein (LAB) 2+H, Bedside Urine Glucose (UA) 1+(100 MG/DL)H, Bedside Urine Ketones (LAB) 1+H, Bedside Urine Blood POSITIVEH, Bedside Urine Nitrite (LAB) NEGATIVE, Bedside Urine Bilirubin (LAB) NEGATIVE, Bedside Urine Urobilinogen ( LAB) NORMAL, Bedside Urine Leukocyte Esterase (L POSITIVEH, Urine WBC 3-5H, Urine RBC 10-15H, Urine Squamous Epithelial Cells SMALL AMOUNT, Urine Bacteria NONE SEEN, Urine Hyaline Casts NONE SEEN, Urine Mucus MOD AMOUNTH, Urine Amorphous Sediment SMALL AMOUNTH, Urine Sediment Examination UNSPUN 09/08/16 06:59: Blood Gas Bicarbonate Standard 18.0L, Arterial Blood pH 7.258L, Arterial Blood Partial Pressure CO2 43.5, Arterial Blood Partial Pressure O2 55.7L, Arterial Blood Total CO2 20.3L, Arterial Blood HCO3 19.0L, Arterial Blood Base Excess - 7.7L, Arterial Blood Oxygen Saturation 83.9L CBC/BMP Laboratory Tests 09/08/16 02:02 Red Blood Count 3.09 L, Mean Corpuscular Volume 107.0 H, Mean Corpuscular Hemoglobin 33.6 H, Mean Corpuscular Hemoglobin Concent 31.4 L, Red Cell Distribution Width 14.8 H 09/08/16 05:25 Microbiology Microbiology 09/08/16 Blood Culture, Received Pending 09/08/16 Blood Culture, Received Pending 09/08/16 Urine Culture, Received Pending MYRNA PERRY PA-C September 08, 2016 08:49
[2016-09-08] MEDS ORDERED: methylPREDNISolone INJ 125 MG/2 ML VIAL (J2930) IV SCH ×2 (09:00→12:00)
[2016-09-08] MEDS: CLOPIDOGREL 75 MG TAB PO SCH (09:00)
[2016-09-08] MEDS ORDERED: FEBUXOSTAT 40 MG TABLET (ULORIC) PO SCH (09:00)
[2016-09-08] MEDS ORDERED: CALCIUM ACETATE 667 MG GELCAP PO SCH (09:00)
[2016-09-08] MEDS ORDERED: DOCUSATE SODIUM 100 MG CAP PO SCH (09:00)
[2016-09-08] MEDS ORDERED: GABAPENTIN 300 MG CAP PO SCH (09:00)
[2016-09-08] MEDS: ASPIRIN 81 MG ENTERIC TAB PO SCH (09:00)
[2016-09-08] MEDS ORDERED: MULTIVITAMINS/MINERALS THERAP 1 TAB PO SCH (09:00)
[2016-09-08] MEDS ORDERED: predniSONE 5 MG TAB PO SCH (09:00)
[2016-09-08] MEDS ORDERED: amLODIPine 5 MG TAB PO SCH (09:00)
[2016-09-08] MEDS ORDERED: HEPARIN 1,000 UNITS/ML 10ML VIAL (FOR RADIOLOGY& DIALYSIS ONLY) IV ONE (11:15)
[2016-09-08] MEDS ORDERED: LIDOCAINE 1% SDV 5 ML VIAL SQ ONE (11:15)
[2016-09-08] MEDS: methylPREDNISolone INJ 40 MG/1 ML VIAL (J2920) IV SCH ×2 (13:14→23:43)
[2016-09-08] MEDS: PIPERACILLIN/TAZOBACTAM SOD 2.25 GM in D5W MINI-BAG PLUS 50 ML IV SCH ×2 (13:14→19:41)
[2016-09-08] MEDS: MORPHINE 2 MG/ML 1ML SYRINGE IV PRN ×3 (13:15→21:39)
[2016-09-08] MEDS: ENOXAPARIN 30 MG/0.3 ML SYR (J1650) SC SCH (13:25)
[2016-09-08] MEDS ORDERED: IPRATROPIUM 0.5MG/ALBUTEROL 2.5MG INH SOL UD 3ML (DUONEB)(J7620) NEB SCH (14:00)
[2016-09-08] MEDS: D5W/0.9% SODIUM CHLORIDE 1,000 ML IV SCH (14:45)
--- NOTE | 2016-09-08 14:51 | REP ---
Fever. Possible aspiration pneumonia. Comparison: 04/18/2016. Findings: Diffuse chronic interstitial changes are appreciated along with moderate emphysematous disease and bibasilar fibroatelectatic changes. Small posterior lower lobe consolidations (left greater than right) noted. No pleural effusion. No pneumothorax. Cardiomegaly with chronic pulmonary vascular congestion is appreciated as well as atherosclerotic changes to the thoracic aorta, coronary arteries and valvular annulus. No pericardial effusion. No obvious, significant adenopathy. Surrounding musculoskeletal structures demonstrate age-related degenerative changes. Impression: 1. Bibasilar fibroatelectatic changes and small consolidations (left greater than right). 2. Chronic changes include moderate emphysematous disease, diffuse interstitial changes, and cardiomegaly with atherosclerotic disease and chronic pulmonary vascular congestion. Signed by Ramesh Mc MD 09/08/2016 02:42 P
[2016-09-08] MEDS ORDERED: VANCOMYCIN HCL 1,000 MG, VIAL MATE ADAPTER 1 EACH in D5W 250 ML IV ONE (16:15)
--- NOTE | 2016-09-08 16:36 | CR ---
DATE OF CONSULTATION: 09/08/2016 CONSULTATION REPORT FOR: Dr. Jonathan Friend CONSULTING PHYSICIAN: Dr. Bonilla REASON FOR CONSULTATION: Management of end-stage renal disease, hemodialysis and hyperkalemia. CHIEF COMPLAINT: The patient presented to the emergency room last night because of fever, confusion, unresponsiveness. Note: history was obtained from the patient's chart and from the medical team. The patient was unable to provide any reliable history. HISTORY OF PRESENT ILLNESS: Mr. Nnamdi Rodriguez is an 81-year-old male with past medical history of end-stage renal disease on hemodialysis. He is a resident of [facility]. He is well-known to nephrology service from outpatient dialysis center and from previous admissions. He was brought to the emergency room yesterday because of fever with a maximum temperature (T-max) of 107. He was unresponsive and tachypneic. The patient was weak. The patient had a T-max of 104 in the emergency room. He was given imipenem and vancomycin overnight. Cultures were sent. The patient was found to have a leukocytosis with a white blood cell (WBC) count of 14.2. His potassium was 5.5 initially and on repeat laboratory it went up to 5.9. The patient was also found to have cellulitis of the left leg. He is admitted to the intensive care unit (ICU) at this time. Nephrology service was called for further help in the management of end-stage renal disease, hemodialysis, uremia, and hyperkalemia. I arranged the urgent hemodialysis for this patient this morning and I saw and examined the patient during hemodialysis. The patient was obtunded, confused. He followed few commands. He is tachypneic, in moderate respiratory distress when I saw the patient. PAST MEDICAL HISTORY: 1. End-stage renal disease on hemodialysis. 2. Hypertension. 3. Peripheral vascular disease with a history of stenting of external iliac and history of stenting of the celiac as well. 4. 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 5. Chronic obstructive pulmonary disease (COPD). 6. Coronary artery disease status post multiple stents in the past. 7. Gout. 8. Chronic diastolic congestive heart failure. 9. Hyperlipidemia. 10. History of aspiration with regular diet in the past. 11. Diabetes mellitus, type 2. PAST SURGICAL HISTORY: 1. Status post arteriovenous (AV) fistula placement in the left upper arm. 2. Status post multiple cardiac stents in the past. ALLERGIES: No known drug allergies. FAMILY HISTORY: No significant family history of end-stage renal disease requiring hemodialysis. SOCIAL HISTORY: The patient is a resident of [facility] at this time. He is a former smoker and there is no history of illicit drug abuse. REVIEW OF SYSTEMS: I was unable to do any reliable review of systems in this patient who is very confused, obtunded, tachypneic, in moderate respiratory distress, and septic. PHYSICAL EXAMINATION: GENERAL: The patient is awake, does not follow commands, unable to communicate, laying in bed, getting hemodialysis done. HEAD AND NECK EXAMINATION: Pupils are equally round and reactive to light. Mucous membranes are dry. Neck is supple. There is no jugular venous distention (JVD). CARDIOVASCULAR: S1, S2, regular rate. No murmur, rub or gallop. RESPIRATORY: Decreased breath sounds at the bases and positive crepitations on the bases on inspiration. ABDOMEN: Soft, positive bowel sounds, nontender. No ascites. No organomegaly. EXTREMITIES: The patient has erythema of the left leg. He has dry gangrene of multiple toes on bilateral lower extremities. The patient has a large ecchymosis on the right calf as well. CENTRAL NERVOUS SYSTEM: The patient moves extremities on pain. Otherwise, he does not follow commands and he is obtunded. SKIN: No rashes or ulcers apart from left lower extremity erythema and warmth. LYMPH NODES: No significant cervical, axillary or inguinal lymphadenopathy. ARTERIOVENOUS (AV) ACCESS: The patient has a left upper arm AV graft with positive thrill and bruit and there is an area of erythema and warmth on the distal aspect of the AV graft. LABORATORY REVIEW: CBC showed a WBC of 14.2, hemoglobin is 10.4, platelets are 167. INR is 1.21. Urinalysis showed positive blood, negative nitrite, positive leukocyte esterase. ABG shows pH of 7.25, pCO2 of 43.5, pO2 of 55.7, bicarbonate 19, oxygen saturation 83.9%. BMP shows a sodium of 137, potassium 5.5, chloride 97, bicarbonate 23, BUN is 70 , creatinine is 9.05. MICROBIOLOGY: Blood cultures preliminary sent from the emergency room are positive for Gram-positive cocci in clusters. IMAGING STUDIES: CAT scan of the head was done overnight which showed no acute pathology. A CT chest was done today which showed bibasilar atelectasis and small consolidations, left greater than right, moderate emphysematous changes which are chronic, and chronic pulmonary vascular congestion. CURRENT INPATIENT MEDICATIONS: Include IV fluid which I changed to D5 normal saline at 60 mL an hour. The patient got one dose of Primaxin 500 mg IV. He was given a normal saline bolus 500 mL. He is on Zosyn 2.25 grams IV every eight hours. He got a dose of vancomycin 750 mg IV. He is on Tylenol as needed, Proventil nebulizations. Amlodipine was stopped. He is on aspirin 81 mg by mouth daily. Lipitor is on hold. PhosLo is on hold. Plavix 75 mg daily. Colace is on hold. He is Lovenox 30 mg subcutaneous daily. Uloric was stopped. Gabapentin was stopped. He is on insulin sliding scale. He is on Solu-Medrol 40 mg IV every 12 hours and he is on morphine as needed. ASSESSMENT: An 81-year-old male with a past medical history of end-stage renal disease on hemodialysis, diabetes mellitus type 2, peripheral vascular disease, admitted this time with severe sepsis along with Gram-positive cocci bacteremia, left lower extremity and left upper arm cellulitis. Nephrology service following the patient for management of end-stage renal disease, hemodialysis and hyperkalemia. PLAN: 1. End-stage renal disease. The patient is being emergently dialyzed because of uremia and hyperkalemia. The patient will be dialyzed for three hours today. If needed, he will get another session of hemodialysis tomorrow. 2. Hyperkalemia. Hyperkalemia is secondary to sepsis, acidosis and renal failure. He is being dialyzed emergently with a 1K bath. Potassium is expected to improve. 3. Severe sepsis secondary to Gram-positive cocci bacteremia. The patient is already on vancomycin. Continue the empiric coverage with Zosyn as well. Vancomycin dosing is being done by pharmacy. The patient to receive another dose of IV vancomycin after hemodialysis today. 4. Anemia and end-stage renal disease. The patient's hemoglobin is 10.4 which is acceptable at this time. No need of Aranesp administration at this time. 5. Left upper arm arteriovenous (AV) graft site cellulitis. The patient has a boil close to the AV graft needle site that might be a source of infection. The patient is already on vancomycin. We will shall get vascular surgery on board to evaluate the AV graft site and the possibility of infection. 6. Left lower extremity cellulitis. The patient has erythema and tenderness in the left lower extremity as well. Vancomycin would cover the cellulitis in the leg as well. 7. Chronic kidney disease, mineral bone disease. The patient is nothing by mouth at this time. I am going to hold PhosLo. Phosphorus binders will be started when the patient will start eating. 8. Dysphagia and risk of aspiration pneumonitis. The patient has some consolidations on the CAT scan done. He was on pureed diet on previous admissions. The patient is nothing by mouth at this time because of severe sepsis. When sepsis improves, the patient should be started on pureed diet. 9. Diabetes mellitus, type 2. The patient is nothing by mouth at this time. I have started the patient on D5 normal saline at 60 mL an hour. His glucose will be covered with insulin sliding scale. 10. Chronic gout. Because of end-stage renal disease, I am holding the patient's Uloric because of sepsis and inability to take medications by mouth. 11. Hypertension. We are treating the patient's sepsis at this time with IV fluids and antibiotics. Amlodipine will be on hold. It will be restarted when the patient starts taking medications by mouth. 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 The patient is likely on steroids because of his lung disease. He was on prednisone 5 mg by mouth daily. He is currently on Solu-Medrol 40 mg IV every 12 hours. Steroids will be tapered down once his acute sickness is over. Thank you for involving us in the care of this patient. We shall be happy to follow the patient along with you tomorrow morning. Plan of care was discussed with the primary medical team, Meme Friend. Emergent hemodialysis was arranged and the patient is being dialyzed at this time. I spent more than 45 minutes in taking care of this patient. MARIPOSA
[2016-09-08] MEDS ORDERED: ATORVASTATIN 20 MG TAB PO SCH (21:00)
[2016-09-09] VITALS (19 sets, daily range): BP systolic 91–143; BP diastolic 50–66
[2016-09-09] MEDS: MORPHINE 2 MG/ML 1ML SYRINGE IV PRN ×2 (01:45→04:43)
[2016-09-09] MEDS: IPRATROPIUM 0.5MG/ALBUTEROL 2.5MG INH SOL UD 3ML (DUONEB)(J7620) NEB SCH ×4 (01:50→19:25)
[2016-09-09] MEDS: PIPERACILLIN/TAZOBACTAM SOD 2.25 GM in D5W MINI-BAG PLUS 50 ML IV SCH ×3 (03:44→20:44)
[2016-09-09 04:58] LABS: MEAN CORPUSCULAR HEMOGLOBIN 33.7 pg (27.0-33.0); MEAN CORPUSCULAR VOLUME 108.8 fl (80.0-96.0); RED CELL DISTRIBUTION WIDTH 14.8 % (11.5-14.5)
[2016-09-09 05:14] LABS: ALBUMIN 2.5 GM/DL (3.2-5.2); CALCIUM LEVEL 8.3 MG/DL (8.8-10.2); GLOMERULAR FILTRATION RATE 9.7 (>35); PHOSPHORUS LEVEL 5.5 MG/DL (2.5-4.9); POTASSIUM SERUM 4.5 MEQ/L (3.5-5.1); VANCOMYCIN RANDOM 23.8 UG/ML
[2016-09-09] MEDS ORDERED: VANCOMYCIN HCL 1,000 MG, VIAL MATE ADAPTER 1 EACH in D5W 250 ML IV SCH (07:30)
[2016-09-09] MEDS: HumaLOG INSULIN (NovoLOG) PER UNIT SC SCH ×4 (08:23→21:00)
[2016-09-09] MEDS: ENOXAPARIN 30 MG/0.3 ML SYR (J1650) SC SCH (09:00)
[2016-09-09] MEDS: CLOPIDOGREL 75 MG TAB PO SCH (09:00)
[2016-09-09] MEDS: ASPIRIN 81 MG ENTERIC TAB PO SCH (09:00)
--- NOTE | 2016-09-09 09:02 | IPNPDOC ---
Subjective Date Seen The patient was seen on 09/09/16. Subjective Chief Complaint/HPI The patient is a 81-year-old male admitted with a reason for visit of Sepsis. Events since last encounter Pt this morning reports that he is feeling better. He states that his breathing is better. He denies pain. His nurse is at bedside and without new concerns. He has swelling of his LUE which he reports has been present since admission. Constitutional: Denies: Chills, Fever Pulmonary: Reports: Dyspnea (imrpoved.), Denies: Cough Cardiovascular: Denies: Chest Pain Gastrointestinal: Denies: Nausea, Vomiting, Diarrhea Neurological: Reports: Weakness Psych: Reports: Mood Normal Objective Physical Examination General Exam: Positive: Alert, No Acute Distress ENT Exam: Positive: Mucous membr. moist/pink Chest Exam: Positive: Diminished, Negative: Rales, Rhonchi, Wheezing Heart Exam: Positive: Rate Normal, Regular Rhythm Abdomen Exam: Positive: Normal bowel sounds, Soft, Negative: Tenderness Extremity Exam: Positive: Other (BL feet with dry gangrene on all toes - chronic and stable. Leg leg with erythema to proximal soliz, slight warmth, LUE edematous, slightly more than the RUE, fistula wrapped), Negative: Edema (BLE) Psych Exam: Positive: Oriented x 3 Assessment /Plan Problems (1) Sepsis Status: Acute Problem Text: D2 Zosyn/vanco-09/09 random level 24 favor source boil near fistula, foot wounds with LLE erythema, less likely asp pneumonia. BCX 1/2 S. aureus 09/09 Tmax last 24 h 100.6, more recently afebrile. WBC improved from 14 to 10 , continue empiric vanco for MSSA s MRSA and Zosyn for aspiration-plan dc Zosyn 09/10 if continues to improve (2) Acute and chronic respiratory failure with hypoxia Status: Acute Problem Text: Resp status improved, sats stable on 3-[address] done on admission with chr changes as well as possible L > R consolidations. (3) Cellulitis Status: Acute Problem Specific Plan: Monitor Clinically Problem Text: rx as per sepsis (4) Unresponsiveness Status: Acute Problem Text: 08/30 - Improved, CT head negative. 09/08 Possibly from Uremia or sepsis. CT head ordered, but not stable enough for this currently. (5) ESRD (end stage renal disease) Status: Chronic Problem Text: 09/[address] Bonilla has seen the pt, dialysis done 09/08, plans to reasses potential need for dialysis again today, hyperkalemia resolved. (6) CAD (coronary artery disease) Status: Chronic Response to Treatment: Stable Problem Text: No active sx Meds ordered, but pt NPO until swallow eval completed. (7) Diabetes Status: Chronic Response to Treatment: Stable Problem Text: Continue SSI (8) COPD (chronic obstructive pulmonary disease) Status: Chronic Response to Treatment: Stable (9) Diastolic CHF Status: Chronic Problem Text: Patient currently appears clinically dry. Was receiving IVF but held. Defer to renal further IVF replacement. (10) Peripheral vascular disease Status: Chronic Response to Treatment: Stable Plan/VTE VTE Prophylaxis Ordered?: Yes (Lovenox) Plan/Urinary Catheter Reason for insertion/continuin: Critical Pt monitoring VS, I&O, 24H, Fishbone Vital Signs/I&O Vital Signs Date Time Temp Pulse Resp B/P (MAP) Pulse Ox O2 Delivery O2 Flow Rate FiO2 09/09/16 08:00 98.0 86 18 143/65 (91) 97 Nasal Cannula 3.0 09/08/16 12:45 95 I&O- Last 24 Hours up to 6 AM 09/09/16 06:00 Intake Total 724 ml Output Total 800 ml Balance -76 ml Laboratory Data 24H LABS Laboratory Tests 2 09/08/16 13:09: Bedside Glucose (Misc Panel) 116H 09/08/16 16:54: Bedside Glucose (Misc Panel) 153H 09/08/16 21:04: Bedside Glucose (Misc Panel) 162H 09/09/16 04:44: Blood Urea Nitrogen 43H, Creatinine 6.00H, Sodium Level 135L, Potassium Level 4.5#, Chloride Level 97L, Carbon Dioxide Level 26, Anion Gap 12, Glomerular Filtration Rate 9.7L, Calcium Level 8.3L, Phosphorus Level 5.5H, Albumin 2.5L, Random Vancomycin Level 23.8 CBC/BMP Laboratory Tests 09/09/16 04:44 Red Blood Count 3.18 L, Mean Corpuscular Volume 108.8 H, Mean Corpuscular Hemoglobin 33.7 H, Mean Corpuscular Hemoglobin Concent 31.0 L, Red Cell Distribution Width 14.8 H, Anion Gap 12 Microbiology Microbiology 09/08/16 Blood Culture - Preliminary, Resulted No growth after 24 hours . All specim... 09/08/16 Blood Culture - Preliminary, Resulted 09/08/16 Urine Culture, Received Pending ARLENE SANCHEZ PA-C September 09, 2016 09:02 Hari Nolan M.D. September 09, 2016 14:16
[2016-09-09] MEDS: D5W/0.9% SODIUM CHLORIDE 1,000 ML IV SCH ×2 (10:14→20:48)
--- NOTE | 2016-09-09 11:30 | IPN ---
DATE OF SERVICE: 09/09/2016 SUBJECTIVE: The patient was seen and examined at the bedside today morning in the intensive care unit (ICU). The patient was dialyzed yesterday. Last 24 hour events were noted. The patient's blood culture is showing Staphylococcus aureus at this time. The patient is currently hemodynamically stable. He is slightly more awake today, as compared with yesterday, and he is able to communicate and answer a few questions. Overnight the patient's left upper arm AV graft started bleeding. Now, he has a compression dressing on the left upper arm, as well. REVIEW OF SYSTEMS: The patient is slightly confused and obtunded but able to provide some review of systems. He denies any fevers, chills, rigors. He denies any chest pain. He does report some shortness of breath. He denies any nausea, vomiting, or pain abdomen. He does report pain in the left upper arm and in the lower extremities. The rest of review of systems is negative. OBJECTIVE: VITAL SIGNS: Temperature is 98 degrees Fahrenheit, blood pressure is 143/65, pulse is 86, respiratory rate of 20, saturating 97% on nasal cannula at 3 liters. INTAKE AND OUTPUT: Urine output is not recorded. Ultrafiltration with hemodialysis was 800 mL yesterday. Weight on the bed scale is 93.9 kg. PHYSICAL EXAMINATION: GENERAL: The patient is awake, alert and oriented times one, laying in the bed, able to answer a few questions. No apparent distress at this time. HEAD AND NECK EXAMINATION: Pupils equally round and reactive to light. Mucous membranes are dry. Neck is supple. There is no jugular venous distention (JVD). CARDIOVASCULAR: S1, S2, regular rate. No murmur, rub, and gallop. RESPIRATORY: Decreased breath sounds at the bases and mild inspiratory crackles at the bases on deep inspiration. ABDOMEN: Soft, positive bowel sounds, nontender. No ascites. No organomegaly. EXTREMITIES: The patient has erythema of the left leg with tenderness or warmth, and he has multiple dry gangrenous areas in the toes. The patient has ecchymosis on the right calf, as well. AV ACCESS: The patient has a left upper arm AV graft, which is covered with a compression dressing at this time because his AV graft started bleeding last night. CENTRAL NERVOUS SYSTEM (SEED COLLECTOR): The patient is oriented times one. He is able to follow commands, and he moves all four extremities. SKIN: No rashes at this time. Erythema of the left leg. Ecchymosis on the right leg and a boil near the left upper arm AV graft that started bleeding last night, and it is covered with a compression dressing. LABORATORY REVIEW: CBC showed a WBC of 10, hemoglobin is 10.7, platelets are 144. BMP showed sodium of 135, potassium 4.5, chloride 97, bicarbonate 26, BUN 43, creatinine is 6, and glucose is 276, calcium 8.3, phosphorus 5.5, albumin 2.5, random vancomycin level is 23.8 today. MICROBIOLOGY: Blood culture one out of two is growing Staphylococcus aureus. CURRENT MEDICATIONS: The patient's medications are all reviewed by me. He continues to be on D5 normal saline at 60 mL an hour. He continues to be on intravenous (IV) vancomycin and Zosyn. Antihypertensive medications are on hold, and the patient continues to be nothing by mouth at this time. ASSESSMENT: An 81-year-old male with past medical history of end-stage renal disease on hemodialysis, diabetes mellitus type 2, peripheral vascular disease, admitted this time with severe sepsis secondary to Staphylococcus aureus bacteremia, left upper arm AV graft site cellulitis. Nephrology service following the patient for management of end-stage renal disease and electrolyte abnormalities. PLAN: 1. End-stage renal disease. The patient was emergently dialyzed yesterday because of uremia and hyperkalemia. No urgent need of hemodialysis today. Next hemodialysis will be done tomorrow. 2. Sepsis secondary to Staphylococcus aureus bacteremia. The patient continues to be on IV Zosyn and IV vancomycin. Vancomycin level is acceptable at this time. The patient clinically looks better as compared with yesterday. Continue to monitor in the intensive care unit (ICU) at this time. 3. Left upper arm AV graft site cellulitis. The patient's AV graft site started bleeding last night. He has a compression dressing. I got in touch with the vascular surgeon, Dr. oCrral, and he plans to take the patient to operating room (OR) in the afternoon today for revision and repair of AV graft. 4. Hyperkalemia. Potassium level improved with hemodialysis yesterday. 5. Diabetes mellitus type 2. Continue the patient on insulin sliding scale. 6. Hypertension. Blood pressure is acceptable at this time. The patient has sepsis. Antihypertensive medications are on hold. 7. Dysphagia and risk of aspiration pneumonitis. The patient is nothing by mouth at this time because of severe sepsis. Continue the IV Zosyn at this time for possible aspiration. When the patient starts eating, he should be placed on pureed diet. The plan of care was discussed with the patient's registered nurse (RN) at the bedside.
[2016-09-09] MEDS ORDERED: ALBUTEROL SULFATE 2.5 MG/0.5 ML INH NEB SOLN INH PRN (12:30)
[2016-09-09] MEDS: methylPREDNISolone INJ 40 MG/1 ML VIAL (J2920) IV SCH ×2 (12:35→23:53)
[2016-09-09] MEDS ORDERED: MIDAZOLAM INJ 2 MG/2 ML VIAL (J2250) As Ordered ONE ×2 (13:59→16:18)
[2016-09-09] MEDS ORDERED: fentaNYL 100 MCG/2 ML INJECTION (J3010) As Ordered ONE ×2 (13:59→16:18)
[2016-09-09] MEDS ORDERED: CONRAY-60 60% 50ML VIAL (Q9961) As Ordered ONE (14:06)
[2016-09-09] MEDS ORDERED: CLINDAMYCIN 600 MG/50 ML PREMIX BAG As Ordered ONE (14:06)
[2016-09-09] MEDS ORDERED: HEPARIN SOD (PORCINE) 5000 UNITS/ML VIAL As Ordered ONE (14:06)
--- NOTE | 2016-09-09 15:48 | PHACANCOPD ---
PHARMACY VANCOMYCIN DOSING Pt Demographics Demographics Patient Age:81 , Weight:93.900 , Gender: male Adjusted Body Weight Date: 09/08/16, Adjusted Body Weight: [75] Kg Vancomycin Vancomycin Target Ranges: 15-20 mcg/ml Vancomycin Load Y/N: Yes Load Dose Date Time Vancomycin Load Dose: 1500MG Date: 09-08 Time: 0600 Vancomycin Dose Date: 09/08/16. Current Vancomycin Dose: Intermittent Dosing?: Yes Labs Micro Microbiology 09/08/16 Blood Culture - Preliminary, Resulted No growth after 24 hours . All specim... 09/08/16 Blood Culture - Preliminary, Resulted Staphylococcus Aureus 09/08/16 Urine Culture, Received Pending Creatinine Clearance Date:09/08/16. Creatinine Clearance: [5.5]. Pending Labs Random 05-30 @ am Assessment and Plan Maintaining Current Dose?: Yes Reason for dose change: No Dose Change Pharmacist Note Pharmacist Note 09/09/16: Random level today resulted at 23.8mcg/ml. We will resume with vancomycin 1g IV HD dosing. Dialysis days are Thursday, , and Thursday. We will continue to monitor and make further dose adjustments/schedule troughs as needed. Date: 09/08/16. Pharmacist note:Dosing intermittent per levels with first random ordered for 05-30 @am. Will continue to monitor and make adjustments as needed. ERICKA UP PHARMACY September 09, 2016 15:48
[2016-09-09] MEDS: CHECK TO SEE IF PATIENT IS RECEIVING DIALYSIS TODAY AND REFER TO THE VANCOMYCIN ORDER XX SCH (16:00)
[2016-09-09] MEDS ORDERED: BUPIVACAINE HCL 0.5% 30 ML VIAL As Ordered ONE (16:20)
[2016-09-09] MEDS ORDERED: LIDOCAINE 1% SDV INJ 30 ML VIAL As Ordered ONE (16:20)
[2016-09-09] MEDS ORDERED: LR 1,000 ML IV SCH (17:15)
[2016-09-09] MEDS ORDERED: ONDANSETRON 4MG/2ML VIAL (J2405) IV PRN (17:15)
[2016-09-09] MEDS ORDERED: fentaNYL 100 MCG/2 ML INJECTION (J3010) IV PRN (17:15)
[2016-09-09] MEDS ORDERED: PERCOCET 5MG/325MG TAB PO PRN (17:15)
[2016-09-10] VITALS: BP 106/55
--- NOTE | 2016-09-10 00:35 | ECHO ---
DATE OF PROCEDURE: 09/09/2016 REFERRING PHYSICIAN: Dr. Hari Nolan INDICATION: Staphylococcus aureus bacteremia. HEIGHT: 55 inches WEIGHT: 207 pounds. 2D MEASUREMENTS: Aortic root: 3.3 cm Proximal ascending aorta: 3.5 cm Left atrium: 4.0 cm Left ventricle diastole: 4.3 cm Left ventricle systole: 2.9 cm Ventricular septum: 1.29 cm Posterior wall: 1.37 cm LVOT: 2.2 cm Right ventricle: 4.8 cm Inferior vena cava: 2.6 cm DOPPLER MEASUREMENTS: Aortic valve velocity: 161 cm/s LVOT velocity: 131 cm/s LVOT VTI: 29.5 cm Mild mitral regurgitation Mitral E velocity: 116 cm/s Mitral A velocity: 100 cm/s Mitral deceleration time: 271 ms Moderate tricuspid regurgitation Estimated right ventricle systolic pressure: 55 mmHg, assuming a right atrial pressure of 10 mmHg MITRAL ANNULAR TISSUE DOPPLER: E prime lateral: 6.8 cm/s E prime septal: 4.8 cm/s DESCRIPTION: Rhythm was sinus. This is a moderately technically difficult echocardiogram. CONCLUSIONS: 1. Mild concentric left ventricle hypertrophy. No LV regional wall motion abnormalities. Normal LV systolic function. LVEF 60% by visual estimate. Grade 1 LV diastolic dysfunction (impaired relaxation filling pattern). 2. Severe focal thickening and focal calcific deposits of 3-cuspid aortic valve. No aortic stenosis or aortic regurgitation. 3. Severe mitral annular calcification. No mitral stenosis. Mild mitral regurgitation. Appearance of a loose chordae (less likely to be a vegetation attached to chordae). 4. No vegetations identified; however, this was technically insufficient for exclusion of vegetations. 5. Suggestive of moderately severe elevation of estimated right ventricle systolic pressure (55 mmHg). Moderate tricuspid regurgitation. Mild right ventricle dilatation with normal RV systolic function. Mild right atrial dilatation by visual assessment. Inferior vena cava plethora suggestive of elevated central venous pressure. ADDITIONAL COMMENTS AND RECOMMENDATIONS: If clinically important and thought to be likely to [employer] exchange administrator, consider transesophageal echocardiography, which is more specific and more sensitive for detection of infective endocarditis. MTDD
[2016-09-10] MEDS: IPRATROPIUM 0.5MG/ALBUTEROL 2.5MG INH SOL UD 3ML (DUONEB)(J7620) NEB SCH ×4 (01:42→20:00)
[2016-09-10] MEDS: MORPHINE 2 MG/ML 1ML SYRINGE IV PRN ×2 (01:49→12:46)
[2016-09-10] MEDS: PIPERACILLIN/TAZOBACTAM SOD 2.25 GM in D5W MINI-BAG PLUS 50 ML IV SCH ×3 (03:53→20:38)
[2016-09-10 04:00] VITALS: BP 133/60
[2016-09-10 05:03] LABS: MEAN CORPUSCULAR HEMOGLOBIN 33.1 pg (27.0-33.0); MEAN CORPUSCULAR VOLUME 106.9 fl (80.0-96.0); WHITE BLOOD COUNT 11.4 K/mm3 (4.0-10.0)
[2016-09-10 05:15] LABS: ALBUMIN 2.2 GM/DL (3.2-5.2); CALCIUM LEVEL 8.3 MG/DL (8.8-10.2); CREATININE FOR GFR 7.13 MG/DL (0.70-1.30); GLOMERULAR FILTRATION RATE 7.9 (>35); PHOSPHORUS LEVEL 5.8 MG/DL (2.5-4.9); POTASSIUM SERUM 3.8 MEQ/L (3.5-5.1)
[2016-09-10] MEDS: HumaLOG INSULIN (NovoLOG) PER UNIT SC SCH ×4 (07:49→20:38)
[2016-09-10 08:00] VITALS: BP 130/57
[2016-09-10] MEDS: ENOXAPARIN 30 MG/0.3 ML SYR (J1650) SC SCH (09:00)
[2016-09-10] MEDS: ASPIRIN 81 MG ENTERIC TAB PO SCH (09:55)
[2016-09-10] MEDS: CLOPIDOGREL 75 MG TAB PO SCH (09:55)
--- NOTE | 2016-09-10 10:00 | RO ---
DATE OF PROCEDURE: 09/09/2016 PREPROCEDURE DIAGNOSES: End stage renal disease, bacteremia, infected left brachial artery to axillary vein arteriovenous graft, bleeding left brachial artery to axillary vein arteriovenous graft. POSTPROCEDURE DIAGNOSES: End stage renal disease, bacteremia, infected left brachial artery to axillary vein arteriovenous graft, bleeding left brachial artery to axillary vein arteriovenous graft. PROCEDURE: Debridement of left infected brachial artery to axillary vein arteriovenous graft, ligation of proximal and distal limbs of the left brachial artery to axillary vein arteriovenous graft, removal of infection portion of left brachial artery to axillary vein arteriovenous graft. SURGEON: Juan A Corral MD BUTTERMILK DRIER OPERATOR: None. ANESTHESIA: Local MAC. ESTIMATED BLOOD LOSS: 200 mL. IV FLUID: 100 mL of Crystalloid. SPECIMENS: Culture and sensitivity of the left upper arm wound times two. COMPLICATIONS: None. DRAINS: None. IMPLANTS: None. INDICATION: The patient is an 81-year-old male with end stage renal disease who dialyzes through a left brachial artery to axillary vein arteriovenous graft. The patient presented to the emergency room with purulent drainage from the mid portion of the graft in the left upper extremity, as well as elevated temperatures and bacteremia secondary to the infected graft. The patient was evaluated and felt to be a candidate for debridement and removal with possible interposition grafting of the left arm AV graft. Risks, benefits and alternative treatment options were discussed with the patient. Alternative treatment options included, but were not limited to, no intervention. Risks included, but were not limited to infection, bleeding, loss of arteriovenous access, possible need for further surgical intervention, cerebrovascular accident, myocardial infarction, pulmonary embolus, deep vein thrombosis (DVT), loss of limb, loss of life, and poor outcome. The patient understands and accepts these risks and consents to proceed. The patient was slightly confused at the time of the surgery and consent was obtained from the patient's sister after attempts were made to contact the patient's daughter, who did not answer her phone and did not have any way to leave a message due to her mailbox on her phone being full. The above risks, benefits, and alternative treatment options were discussed with the patient's sister, and the condition of the patient was semi-urgent, and the sister agreed to proceed. DESCRIPTION OF PROCEDURE: The patient was taken to the operating room and placed supine on the operating room table. The left upper extremity was prepped and draped in a standard surgical fashion. Two incisions were made overlying the graft proximal and distal to the wound. The graft was encircled and clamped, after which the wound was opened along the length of the graft with purulent discharge and old clot material noted within the wound. This was debrided sharply using Metzenbaum scissors to remove nonviable tissue and old graft. The graft was transected at the proximal and distal incisions and the old graft was removed. The proximal and distal limbs were then ligated doubly with #0 silk suture. The wounds over the ligation sites were closed using afsaneh. The infected portion of the wound remained open and was packed with wet to dry dressing. Dressings were then applied. The patient tolerated the procedure well. All instrument, sponge, and needle counts were correct at the end of the case. There were no complications. Dr. Corral was present for and directed the entire case. The patient was transferred to the recovery room and subsequently back to the intensive care unit (ICU) in stable condition. Dr. Corral was present for and directed the entire case.
--- NOTE | 2016-09-10 11:50 | IPNPDOC ---
Subjective Date Seen The patient was seen on 09/10/16. Subjective Chief Complaint/HPI The patient is a 81-year-old male admitted with a reason for visit of Sepsis. Events since last encounter Patient remains confused, yet pleasant and cooperative. Poor IV Access per nursing staff. Infected AVF in LEFT arm limits IV access. S/p debridement of AVF with Dr. Corral, vascular surgery yesterday. Planning on Permacath placement and HD tomorrow. Constitutional: Denies: Chills, Fever, Night Sweats ENT: Denies: Head Aches, Ear Pain, Dysphagia Skin: Reports: Other (ecchymotic areas to BLE with necrotic toes. ) Pulmonary: Denies: Dyspnea, Cough Gastrointestinal: Denies: Nausea, Vomiting, Abdominal Pain, Diarrhea, Constipation Psych: Reports: Memory Issues, Other Psych (confusion. ) Objective Physical Examination General Exam: Positive: Alert, No Acute Distress ENT Exam: Positive: Mucous membr. 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 Leg leg with erythema to proximal soliz, slight warmth, LUE edematous, slightly more than the RUE, fistula wrapped), Negative: Edema (BLE) Skin Exam: Positive: Rash (Erythema on left lower extremity is mildly warm to touch; no erythema on right lower extermity though bruising present on both legs ; tips of multiple toes of both feet are black and tender to palpation.) Psych Exam: Positive: Oriented x 3 Assessment /Plan Problems (1) Sepsis Status: Acute Problem Text: D2 Zosyn/vanco. Favor source boil near fistula; other possibilities include foot wounds, ? cellulitis with LLE erythema, less likely asp pneumonia. BCX 1/2 S. aureus LUE AVF wound debrided by Dr. Corral on 09/09/16 - we appreciate his assistance. 09/10/2016: repeat Bl. CX negative. However continues with cellulitis to LLE, LUE AVF infection. Wound cx pending. (2) Acute and chronic respiratory failure with hypoxia Status: Acute Problem Text: Resp status improved, sats stable on 3-[address] done on admission with chr changes as well as possible L > R consolidations. (3) Cellulitis Status: Acute Problem Specific Plan: Monitor Clinically Problem Text: Rx as per sepsis 09/10/2016: Located to LLE. Also with AVF infection. Cx pending. (4) Unresponsiveness Status: Acute Problem Text: 09/10: remains confused, cooperative. alert to self. Responds to family members. 08/30 - Improved, CT head negative. 09/08 Possibly from Uremia or sepsis. CT head ordered, but not stable enough for this currently. (5) ESRD (end stage renal disease) Status: Chronic Problem Text: 09/10/2016: planned permacath placement and HD tomorrow. Managed by Nephrology 09/09 graft replaced (6) CAD (coronary artery disease) Status: Chronic Response to Treatment: Stable Problem Text: No active sx; continue chronic medications (7) Diabetes Status: Chronic Response to Treatment: Stable Problem Text: Continue SSI (8) COPD (chronic obstructive pulmonary disease) Status: Chronic Response to Treatment: Stable (9) Diastolic CHF Status: Chronic Problem Text: Patient currently appears clinically dry. Was receiving IVF but held. Defer to renal further IVF replacement. (10) Peripheral vascular disease Status: Chronic Response to Treatment: Stable (11) Gangrene of foot Problem Specific Plan: Consult Specialist Problem Text: wound consult placed. Plan/VTE VTE Prophylaxis Ordered?: Yes (Lovenox) Plan/Urinary Catheter Reason for insertion/continuin: Critical Pt monitoring Plan Family medicine attending note: Patient seen and examined; I d/w Ira Hma NP and I agree with her note as above. Patient is pleasantly confused but in NAD, and is breathing comfortably. Patient is to have PICC line and permacath placed tomorrow, and then will receive HD. He was seen by wound care shortly before I examined him - per nursing, wound care thinks his wound have improved significantly since his last admission - we will await their recommendations. (KES) VS, I&O, 24H, Fishbone Vital Signs/I&O Vital Signs Date Time Temp Pulse Resp B/P (MAP) Pulse Ox O2 Delivery O2 Flow Rate FiO2 09/10/16 08:53 84 16 09/10/16 08:00 Nasal Cannula 2.0 09/10/16 08:00 97.5 130/57 (81) 95 09/08/16 12:45 95 I&O- Last 24 Hours up to 6 AM 09/10/16 06:00 Intake Total 1240 ml Output Total 200 ml Balance 1040 ml Laboratory Data 24H LABS Laboratory Tests 2 09/09/16 17:06: Bedside Glucose (Misc Panel) 216H 09/09/16 18:03: Bedside Glucose (Misc Panel) 249H 09/09/16 21:02: Bedside Glucose (Misc Panel) 233H 09/10/16 04:42: Blood Urea Nitrogen 59H, Creatinine 7.13H, Sodium Level 137, Potassium Level 3.8 , Chloride Level 99, Carbon Dioxide Level 25, Anion Gap 13, Glomerular Filtration Rate 7.9L, Calcium Level 8.3L, Phosphorus Level 5.8H, Albumin 2.2L 09/10/16 07:27: Bedside Glucose (Misc Panel) 327H CBC/BMP Laboratory Tests 09/10/16 04:42 Red Blood Count 2.72 L, Mean Corpuscular Volume 106.9 H, Mean Corpuscular Hemoglobin 33.1 H, Mean Corpuscular Hemoglobin Concent 31.0 L, Red Cell Distribution Width 15.0 H, Anion Gap 13 Microbiology Microbiology 09/08/16 Blood Culture - Preliminary, Resulted No Growth after 48 hours. All Specime... 09/08/16 Blood Culture - Final, Complete Staphylococcus Aureus 09/08/16 Urine Culture - Final, Complete 09/09/16 Wound Culture, Received Pending 09/09/16 Anaerobic Culture, Received Pending Ira Ham September 10, 2016 11:50 MELCHOR SPENCE MD September 10, 2016 15:28
[2016-09-10 12:00] VITALS: BP 113/58
--- NOTE | 2016-09-10 13:39 | IPN ---
DATE: 09/10/2016 SUBJECTIVE: The patient was seen and examined at the bedside today in the morning in the intensive care unit (ICU). The patient remains a little bit confused and obtunded but he is hemodynamically stable. Last 24 hour events were noted. The patient got debridement of the infected left upper arm arteriovenous graft done by Dr. Corral, vascular surgery. We appreciate your help. REVIEW OF SYSTEMS: The patient is still slightly confused and obtunded, but otherwise he denies any fevers, chills, or rigors. He reports feeling very thirsty and he is very hungry. He denies any chest pain or shortness of breath. He denies any nausea, vomiting, or diarrhea. He denies any pain in the lower extremities but he does report some mild amount of pain in the left upper arm wound debridement site. The rest of review of systems is negative. OBJECTIVE: VITAL SIGNS: Temperature is 97.5 degrees Fahrenheit, blood pressure is 130/57, pulse is 86, respiratory rate of 18, saturating 95% on nasal cannula at two liters. INTAKE AND OUTPUT: There is no urine output recorded. Weight on the bed scale is 94.7 kg. PHYSICAL EXAMINATION: GENERAL: The patient is awake, alert and oriented times two, laying in the bed, in no apparent distress. HEAD AND NECK EXAMINATION: Extraocular muscles intact. Pupils are equally round and reactive to light. Mucous membranes are very dry. Neck is supple. There is no jugular venous distention (JVD). CARDIOVASCULAR: S1, S2, regular rate. No murmur, rub, and gallop. RESPIRATORY: Decreased breath sounds at the bases and mild inspiratory crackles at the bases on deep inspiration. ABDOMEN: Soft, positive bowel sounds, nontender. No ascites. No organomegaly. EXTREMITIES: The patient has mild erythema of the left leg with no tenderness or warmth, and he has dry gangrenous areas on the toes bilaterally. ARTERIOVENOUS (AV) ACCESS: The patient has a left upper arm AV graft which was debrided yesterday and it is covered with a compression dressing at this time. CENTRAL NERVOUS SYSTEM (HONING JOB SETTER): The patient is oriented times two. He is able to follow commands and there is no focal deficit at this time. SKIN: No rashes at this time, but he has erythema of the left leg, ecchymosis of the right leg, surgical dressing on the left upper arm because of recent infection, and he has dry gangrene of multiple toes. LABORATORY REVIEW: CBC showed a WBC of 11.1, hemoglobin is 9, platelets are 152. BMP showed sodium of 137, potassium 3.8, chloride 99, bicarbonate 25, BUN 59, creatinine is 7.1, calcium is 8.3, phosphorus is 5.8, albumin 2.2. MICROBIOLOGY: Wound cultures are pending. CURRENT MEDICATIONS: The patient's inpatient medications were all reviewed by me. His IV fluids have been stopped. He continues to be on IV Zosyn. He got one dose of vancomycin after dialysis and his levels are therapeutic. Fentanyl has been stopped. Solu-Medrol has been decreased to 40 mg IV daily and oxycodone has also been stopped as well. ASSESSMENT: An 81-year-old male with past medical history of end-stage renal disease on hemodialysis, diabetes mellitus type 2, peripheral vascular disease, admitted this time with severe sepsis secondary to Staphylococcus aureus bacteremia and infected left upper arm arteriovenous (AV) graft along with cellulitis. Nephrology service following the patient for management of end-stage renal disease. PLAN: 1. End-stage renal disease. Today is the patient's regular day of dialysis. However, his graft has been ligated and debrided because of infection. We do not have any access available at this time. The patient will get PermaCath placement tomorrow morning by vascular surgery and he will be dialyzed tomorrow morning. 2. Sepsis secondary to Staphylococcus aureus bacteremia. Most likely source was infected left upper arm AV graft which has been debrided and ligated. Later on, it will be repaired when the infection improves. Continue vancomycin at this time. If the patient's symptoms improve, Zosyn will be stoppped. 3. Infection of the left upper arm AV graft, status post debridement done on 09/09/2016. Continue antibiotics. Dressing change as per Dr. Corral's recommendation. 4. Hyperkalemia. Potassium level improved with hemodialysis yesterday. 5. Dysphagia. The patient got a swallow evaluation. He can take a pureed diet and nectar-thick liquid. I am going to start the feeding on this patient. The patient will be made nothing by mouth past midnight tonight for PermaCath placement tomorrow morning in the operating room (OR). 6. Hypertension. Blood pressure is acceptable at this time. Antihypertensive medications are on hold. 7. Diabetes mellitus, type 2. Continue insulin sliding scale. I have decreased the Solu-Medrol to 40 mg IV daily. It will be slowly tapered down. If the patient starts taking orally then steroids will be changed to oral.
[2016-09-10 15:00] VITALS: BP 131/75
[2016-09-10] MEDS: CHECK TO SEE IF PATIENT IS RECEIVING DIALYSIS TODAY AND REFER TO THE VANCOMYCIN ORDER XX SCH (16:00)
[2016-09-10 20:00] VITALS: BP 129/62
[2016-09-10] MEDS: methylPREDNISolone INJ 40 MG/1 ML VIAL (J2920) IV SCH (23:45)
[2016-09-11] VITALS: BP 140/65
[2016-09-11] MEDS: IPRATROPIUM 0.5MG/ALBUTEROL 2.5MG INH SOL UD 3ML (DUONEB)(J7620) NEB SCH ×4 (01:39→20:35)
[2016-09-11 04:00] VITALS: BP 139/62
[2016-09-11] MEDS: PIPERACILLIN/TAZOBACTAM SOD 2.25 GM in D5W MINI-BAG PLUS 50 ML IV SCH (04:00)
[2016-09-11 07:30] VITALS: BP 160/71
[2016-09-11] MEDS: HumaLOG INSULIN (NovoLOG) PER UNIT SC SCH ×4 (07:30→21:37)
[2016-09-11] MEDS ORDERED: HEPARIN 1,000 UNITS/ML 10ML VIAL (FOR RADIOLOGY& DIALYSIS ONLY) As Ordered ONE (08:42)
[2016-09-11] MEDS ORDERED: LIDOCAINE W/EPINEPHRINE 1% 20ML VIAL As Ordered ONE (08:42)
[2016-09-11 11:21] LABS: BASO % 0.1 % (0.0-1.0); EOS % 0.1 % (0.0-3.0); LARGE UNSTAINED CELL # 0.1 K/mm3 (0.0-0.4); LARGE UNSTAINED CELL % 0.9 % (0.0-4.0); LYMPH # 0.5 K/mm3 (1.5-4.5); MEAN CORPUSCULAR HEMOGLOBIN 32.9 pg (27.0-33.0); MEAN CORPUSCULAR HGB CONC 30.7 g/dl (32.0-36.5); MEAN CORPUSCULAR VOLUME 107.1 fl (80.0-96.0); MONO # 0.3 K/mm3 (0.0-0.8); MONO % 2.5 % (0.0-5.0); NEUTROPHILS # 10.4 K/mm3 (1.8-7.7); NEUTROPHILS % 92.3 % (36.0-66.0); PLATELET COUNT, AUTOMATED 162 k/mm3 (150-450); RED CELL DISTRIBUTION WIDTH 14.8 % (11.5-14.5); WHITE BLOOD COUNT 11.2 K/mm3 (4.0-10.0)
[2016-09-11 11:40] LABS: ALBUMIN 2.3 GM/DL (3.2-5.2); CALCIUM LEVEL 8.4 MG/DL (8.8-10.2); CREATININE FOR GFR 8.93 MG/DL (0.70-1.30); GLOMERULAR FILTRATION RATE 6.1 (>35); PHOSPHORUS LEVEL 5.6 MG/DL (2.5-4.9); POTASSIUM SERUM 4.3 MEQ/L (3.5-5.1)
[2016-09-11] MEDS ORDERED: HEPARIN 1,000 UNITS/ML 10ML VIAL (FOR RADIOLOGY& DIALYSIS ONLY) IV ONE (11:45)
[2016-09-11] MEDS ORDERED: DARBEPOETIN 100 MCG/0.5 ML *DIALYSIS* SYRINGE (J0882) IV SCH (12:15)
[2016-09-11] MEDS: CHECK TO SEE IF PATIENT IS RECEIVING DIALYSIS TODAY AND REFER TO THE VANCOMYCIN ORDER XX SCH ×2 (15:20→17:55)
[2016-09-11 16:00] VITALS: BP 183/84
[2016-09-11] MEDS: ASPIRIN 81 MG ENTERIC TAB PO SCH (16:04)
[2016-09-11] MEDS: CLOPIDOGREL 75 MG TAB PO SCH (16:06)
[2016-09-11] MEDS: ENOXAPARIN 30 MG/0.3 ML SYR (J1650) SC SCH (16:09)
--- NOTE | 2016-09-11 16:33 | IPNPDOC ---
Subjective Date Seen The patient was seen on 09/11/16. Subjective Chief Complaint/HPI The patient is a 81-year-old male admitted with a reason for visit of Sepsis. Events since last encounter Patient seen after dialysis this afternoon; he remains pleasantly confused and offers no complaints today. ENT: Denies: Head Aches Pulmonary: Denies: Dyspnea, Cough Cardiovascular: Denies: Chest Pain Gastrointestinal: Denies: Nausea Genitourinary: Denies: Dysuria Musculoskeletal: Denies: Neck Pain, Back Pain Neurological: Reports: Confusion Objective Physical Examination General Exam: Positive: Alert, No Acute Distress ENT Exam: Positive: Mucous membr. 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 Leg leg with erythema to proximal soliz, slight warmth, LUE edematous, slightly more than the RUE, fistula wrapped), Negative: Edema (BLE) Skin Exam: Positive: Rash (Erythema on left lower extremity is mildly warm to touch; no erythema on right lower extermity though bruising present on both legs ; tips of multiple toes of both feet are black and tender to palpation.) Neuro Exam: Positive: Cranial Nerves 3-12 NL Psych Exam: Negative: Oriented x 3 Assessment /Plan Problems (1) Sepsis Status: Acute Problem Text: D3 Zosyn/vanco. Favor source boil near AV fistula on LUE; other possibilities include foot wounds, questionable cellulitis with LLE erythema, less likely asp pneumonia. Initial BCX 1/2 S. aureus; repeat blood cultures negative. LUE AVF wound debrided by Dr. Corral on 09/09/16 - wound culture grew Staph aureus. Will d/c zosyn. (2) Acute and chronic respiratory failure with hypoxia Status: Acute Problem Text: Resp status improved, O2 has been successfully weaned to 2 L/min. Chest CT done on admission with chr changes as well as possible L > R consolidations. (3) Cellulitis Status: Acute Problem Specific Plan: Monitor Clinically Problem Text: Mild erythema of left lower extremity; less red and warm today. See Sepsis above. (4) Unresponsiveness Status: Acute Problem Text: Remains pleasantly confused, cooperative. Alert to self. Responds to family members. 08/30 - Improved, CT head negative. 09/08 Possibly from Uremia or sepsis. CT head ordered, but not stable enough for this currently. (5) ESRD (end stage renal disease) Status: Chronic Problem Text: Permacath placed on 09/11/16 Last received dialysis on 09/11/16. Management per Nephrology (6) CAD (coronary artery disease) Status: Chronic Response to Treatment: Stable Problem Text: No active sx; continue chronic medications (7) Diabetes Status: Chronic Response to Treatment: Stable Problem Text: Continue SSI (8) COPD (chronic obstructive pulmonary disease) Status: Chronic Response to Treatment: Stable (9) Diastolic CHF Status: Chronic Problem Text: Patient currently appears clinically dry. Was receiving IVF but held. Defer to renal further IVF replacement. (10) Peripheral vascular disease Status: Chronic Response to Treatment: Stable (11) Gangrene of foot Problem Specific Plan: Consult Specialist Problem Text: wound consult placed. Plan/VTE VTE Prophylaxis Ordered?: Yes (Lovenox) Plan/Urinary Catheter Reason for insertion/continuin: Critical Pt monitoring VS, I&O, 24H, Fishbone Vital Signs/I&O Vital Signs Date Time Temp Pulse Resp B/P (MAP) Pulse Ox O2 Delivery O2 Flow Rate FiO2 09/11/16 07:30 98.6 94 22 160/71 (100) 91 Nasal Cannula 2.0 09/08/16 12:45 95 I&O- Last 24 Hours up to 6 AM 09/11/16 06:00 Intake Total 1060 ml Output Total 0 ml Balance 1060 ml Laboratory Data 24H LABS Laboratory Tests 2 09/10/16 17:28: Bedside Glucose (Misc Panel) 190H 09/10/16 20:35: Bedside Glucose (Misc Panel) 246H 09/11/16 08:18: Bedside Glucose (Misc Panel) 316H 09/11/16 11:00: White Blood Count 11.2H, Red Blood Count 2.52L, Hemoglobin 8.3L, Hematocrit 27.0L, Mean Corpuscular Volume 107.1H, Mean Corpuscular Hemoglobin 32.9, Mean Corpuscular Hemoglobin Concent 30.7L, Red Cell Distribution Width 14.8H, Platelet Count 162, Neutrophils (%) (Auto) 92.3H, Lymphocytes (%) (Auto) 4.0L, Monocytes (%) (Auto) 2.5, Eosinophils (%) (Auto) 0.1, Basophils (%) (Auto) 0.1, Neutrophils # (Auto) 10.4H, Lymphocytes # (Auto) 0.5L, Monocytes # (Auto) 0.3, Eosinophils # (Auto) 0.0, Basophils # (Auto) 0.0, Large Unclassified Cells % 0.9 , Large Unclassified Cells # 0.1, Blood Urea Nitrogen 85H, Creatinine 8.93H, Sodium Level 139, Potassium Level 4.3, Chloride Level 101, Carbon Dioxide Level 27, Anion Gap 11, Glomerular Filtration Rate 6.1L, Calcium Level 8.4L, Phosphorus Level 5.6H, Albumin 2.3L CBC/BMP Laboratory Tests 09/11/16 11:00 Red Blood Count 2.52 L, Mean Corpuscular Volume 107.1 H, Mean Corpuscular Hemoglobin 32.9, Mean Corpuscular Hemoglobin Concent 30.7 L, Red Cell Distribution Width 14.8 H, Neutrophils (%) (Auto) 92.3 H, Lymphocytes (%) (Auto ) 4.0 L, Monocytes (%) (Auto) 2.5, Eosinophils (%) (Auto) 0.1, Basophils (%) ( Auto) 0.1, Neutrophils # (Auto) 10.4 H, Lymphocytes # (Auto) 0.5 L, Monocytes # (Auto) 0.3, Eosinophils # (Auto) 0.0, Basophils # (Auto) 0.0, Anion Gap 11 Microbiology Microbiology 09/08/16 Blood Culture - Preliminary, Resulted No Growth after 72 hours. All specime... 09/08/16 Blood Culture - Final, Complete Staphylococcus Aureus 09/08/16 Urine Culture - Final, Complete 09/09/16 Wound Culture - Final, Complete Staphylococcus Aureus 09/09/16 Anaerobic Culture - Final, Complete MELCHOR SPENCE MD Sep 11, 2016 16:33
--- NOTE | 2016-09-11 17:01 | IPN ---
DATE: 09/11/2016 SUBJECTIVE: The patient was seen and examined at the bedside today (morning). During hemodialysis procedure, the patient was tolerating the hemodialysis procedure well. The patient just came up from the wastewater analyst lab analyst after getting the right internal jugular (IJ) tunneled hemodialysis catheter inserted. There is no apparent distress at this time. REVIEW OF SYSTEMS: The patient is slightly obtunded at this time right after the procedure and because of his acute sickness; otherwise he denies any fever, chills, rigors, headache, nausea, vomiting, chest pain, shortness of breath, pain in abdomen, constipation or diarrhea. The rest of the review of systems is negative. OBJECTIVE: VITAL SIGNS: Temperature is 98.2 degrees Fahrenheit. Blood pressure is 140/65, pulse is 89, respiratory rate of 18, saturating 95% on nasal cannula at 2 liters. INTAKE/OUTPUT: Urine output is not recorded. Weight on the bed scale is 91.7 kg. PHYSICAL EXAMINATION: GENERAL: The patient is awake, alert, oriented times two, laying in bed, getting hemodialysis, in no apparent distress. HEAD AND NECK EXAM: Extraocular muscles intact. Pupils equally round and reactive to light. Mucous membranes are moist. Neck is supple. There is no jugular venous distention (JVD). The patient has a tunneled right IJ hemodialysis catheter. CARDIOVASCULAR: S1, S2, regular rate. No murmur, rub or gallop. RESPIRATORY: Decreased breath sounds at the bases and mild inspiratory crackles on the bases. ABDOMEN: Abdomen is soft. Positive bowel sounds. Nontender. No ascites. No organomegaly. EXTREMITIES: The patient has multiple dry gangrenous areas on the toes bilaterally, and he has erythema on the left leg, which is improving. AV ACCESS: The patient has a left upper arm AV graft, which is covered with a dressing because it has been recently debrided. CENTRAL NERVOUS SYSTEM ([employer]): No focal neurological deficit. The patient is oriented times two; otherwise he follows commands. SKIN: No rashes at this time apart from the erythema of the left leg. Healing ecchymosis of the right leg and a surgical dressing on the left upper arm infected AV graft site and dry gangrene of multiple toes bilaterally. LAB REVIEW: CBC showed a WBC of 11.2, hemoglobin 8.3, platelets are 162. BMP showed sodium 139, potassium 4.3, chloride 101, bicarbonate 27, BUN 85, creatinine is 8.9, calcium 8.4, phosphorus 5.6, albumin is 2.3. Microbiology: Culture of the graft site sent on 09/09/2016 is growing Staphylococcus aureus. CURRENT INPATIENT MEDICATIONS: The patient's medications were all reviewed by me. His Zosyn has been stopped. The patient continues to be on intravenous (IV) vancomycin 1 gram IV with hemodialysis. The patient continues to be on Solu-Medrol 40 mg IV daily. There is no other change in the medications today as compared with yesterday. ASSESSMENT: 81-year-old male with past medical history of end-stage renal disease, on hemodialysis, diabetes mellitus type 2, peripheral vascular disease, admitted at this time with severe sepsis secondary to Staphylococcus aureus bacteremia. He was found to have infection of the left upper arm AV graft, which was debrided during this admission. The patient has a right IJ tunneled hemodialysis catheter for hemodialysis now. PLAN: 1. End-stage renal disease. The patient missed dialysis yesterday because he did not have any access. Left upper arm AV graft is debrided and ligated. The patient is being dialyzed today via the right IJ tunneled hemodialysis catheter. We shall try to do an ultrafiltration of about 2.5 liters as tolerated by his blood pressure. 2. Sepsis secondary to Staphylococcus aureus bacteremia. The patient's white cell count is still high. He will get another dose of vancomycin after hemodialysis today. The patient's graft is also growing Staphylococcus aureus. 3. Acute blood loss anemia. The patient has end-stage renal disease, and he had some blood loss during the surgery as well. I would give him one unit of packed red blood cells transfusion during hemodialysis today. 4. Hypertension. Blood pressure is acceptable at this time. 5. Dysphagia to regular food. The patient is currently tolerating nectar-thick liquids and puree diet.
--- NOTE | 2016-09-11 18:50 | REP ---
IMAGE CHEST FOR CATHETER PLACEMENT: An image of the chest was performed during placement of a central venous catheter and the tip is seen in the superior vena cava. 0.5 minutes fluoroscopy time was utilized for this procedure. Signed by Kris Stone MD 09/11/2016 07:18 P
[2016-09-11] MEDS ORDERED: BISOPROLOL FUMARATE 5 MG TAB PO ONE (19:00)
[2016-09-11 19:43] VITALS: BP 162/75
[2016-09-11 20:00] VITALS: PULSE 105
[2016-09-11] MEDS: methylPREDNISolone INJ 40 MG/1 ML VIAL (J2920) IV SCH (23:57)
[2016-09-12] VITALS (9 sets, daily range): BP systolic 122–149; BP diastolic 58–80; PULSE 73–78; O2SAT 93
[2016-09-12] MEDS: IPRATROPIUM 0.5MG/ALBUTEROL 2.5MG INH SOL UD 3ML (DUONEB)(J7620) NEB SCH ×4 (01:25→20:41)
[2016-09-12 06:01] LABS: MEAN CORPUSCULAR HGB CONC 33.1 g/dl (32.0-36.5); MEAN CORPUSCULAR VOLUME 102.8 fl (80.0-96.0); RED CELL DISTRIBUTION WIDTH 15.6 % (11.5-14.5)
[2016-09-12 06:11] LABS: ALBUMIN 2.4 GM/DL (3.2-5.2); CALCIUM LEVEL 8.1 MG/DL (8.8-10.2); CREATININE FOR GFR 5.31 MG/DL (0.70-1.30); GLOMERULAR FILTRATION RATE 11.1 (>35); POTASSIUM SERUM 4.1 MEQ/L (3.5-5.1)
[2016-09-12 06:28] LABS: PHOSPHORUS LEVEL 3.5 MG/DL (2.5-4.9)
[2016-09-12] MEDS: HumaLOG INSULIN (NovoLOG) PER UNIT SC SCH ×4 (07:24→21:00)
[2016-09-12] MEDS: ASPIRIN 81 MG ENTERIC TAB PO SCH (08:44)
[2016-09-12] MEDS: CLOPIDOGREL 75 MG TAB PO SCH (08:44)
[2016-09-12] MEDS ORDERED: SLF 3 ML SYR IV PRN (08:45)
[2016-09-12] MEDS: BISOPROLOL FUMARATE 5 MG TAB PO SCH ×2 (08:45→21:13)
[2016-09-12] MEDS: ENOXAPARIN 30 MG/0.3 ML SYR (J1650) SC SCH (08:49)
[2016-09-12] MEDS ORDERED: predniSONE 5 MG TAB PO SCH (09:00)
[2016-09-12] MEDS: predniSONE 20 MG TAB PO SCH (09:46)
--- NOTE | 2016-09-12 10:19 | IPNPDOC ---
Subjective Date Seen The patient was seen on 09/12/16. Subjective Chief Complaint/HPI The patient is a 81-year-old male admitted with a reason for visit of Sepsis. Events since last encounter Nursing at bedside. She reports that the pt has been bleeding thru the bandages on his L upper arm, they are being changes every 6 h or so as a result. She is concerned bc he is on ASA, Lovenox and Plavix. He also is quite confused today, slightly more so than he has been, but he also hasn't slept at least the last 2 nights. General: Reports: ROS Unobtainable Objective Physical Examination General Exam: Positive: Alert, No Acute Distress, Negative: Cooperative ENT Exam: Positive: Mucous membr. moist/pink Chest Exam: Positive: Diminished, Negative: Rales, Rhonchi, Wheezing Heart Exam: Positive: Rate Normal, Regular Rhythm Telemetry: Positive: No significant arrhythmia Abdomen Exam: Positive: Normal bowel sounds, Soft, Negative: Tenderness Extremity Exam: Positive: Edema (BLE), Other (BL feet with dry gangrene on all toes - chronic and stable. LL leg erythema improved, LUE edematous, slightly more than the RUE, wound/debrided area wrapped, bandage is bloody) Skin Exam: Positive: Rash (Erythema on left lower extremity is mildly warm to touch; no erythema on right lower extermity though bruising present on both legs ; tips of multiple toes of both feet are black and tender to palpation.) Neuro Exam: Positive: Cranial Nerves 3-12 NL Psych Exam: Negative: Mental status NL, Mood NL, Memory Intact, Oriented x 3 Assessment /Plan Problems (1) Sepsis Status: Acute Problem Text: 09/12 - on Vanco at this time only, with dialysis. BC x1 + SA, wound cx + SA. debridement of AVF done by Dr Corral, culture obtained at that time. Dr May reviewed charts today, she is concerned that the pt is on Vanco, her recommendation is Cefazolin, currently the pt is without IV access. Recommended repeat BC x 1 today. 09/11 Zosyn discontinued after 3 days. Favor source boil near AV fistula on LUE; other possibilities include foot wounds, questionable cellulitis with LLE erythema. Initial BCX / S. aureus; repeat blood cultures negative. LUE AVF wound debrided by Dr. Corral on 09/09/16 - wound culture grew Staph aureus. (2) Acute and chronic respiratory failure with hypoxia Status: Acute Problem Text: Cont with Vanco, sats remain stable. Resp status improved, O2 has been successfully weaned to 2 L/min. Chest CT done on admission with chr changes as well as possible L > R consolidations. (3) Cellulitis Status: Acute Problem Specific Plan: Monitor Clinically Problem Text: Erythema has improved. See Sepsis above. (4) ESRD (end stage renal disease) Status: Chronic Problem Text: Permacath placed on 09/11/16 Last received dialysis on 09/11/16. Management per Nephrology (5) Insomnia Status: Acute Problem Specific Plan: Monitor Clinically Problem Text: Will start Seroquel 12.5 mg tonight and see how he does with this , may need to have the dose increased (6) Unresponsiveness Status: Resolved Problem Text: Remains pleasantly confused, not always cooperative. 08/30 - Improved, CT head negative. 09/08 Possibly from Uremia or sepsis. CT head ordered, but not stable enough for this currently. (7) CAD (coronary artery disease) Status: Chronic Response to Treatment: Stable Problem Text: No active sx; continue chronic medications (8) Diabetes Status: Chronic Response to Treatment: Stable Problem Text: Continue SSI (9) COPD (chronic obstructive pulmonary disease) Status: Chronic Response to Treatment: Stable (10) Diastolic CHF Status: Chronic Problem Text: Patient currently appears clinically dry. Was receiving IVF but held. Defer to renal further IVF replacement. (11) Peripheral vascular disease Status: Chronic Response to Treatment: Stable (12) Gangrene of foot Problem Specific Plan: Consult Specialist Problem Text: KES: Seen by PT for wound care; per wound care notes, feet are improved as compared to hospitalization in 03/2016 - patient was referred to a vascular surgeon at that time. Wound care did not recommend any further intervention at this time. Plan/VTE VTE Prophylaxis Ordered?: Yes (Lovenox) Plan/Urinary Catheter Reason for insertion/continuin: Critical Pt monitoring Plan Family Medicine Attending Note: I examined Mr. Rodriguez this afternoon; I d/w GALI Vernon and I agree with her note above. I stopped his vancomycin today and started cefazolin 1 g three times a week after hemodialysis (dosing was discussed with pharmacist). Per his nurse, he is schedule to receive dialysis tomorrow. Dr. Corral saw patient today and applied a bandage to his upper arm; lovenox was also stopped today. His nurse states he has been restless and agitated today - hopefully seroquel will help with this as well as with insomnia. (KES) VS, I&O, 24H, Fishbone Vital Signs/I&O Vital Signs Date Time Temp Pulse Resp B/P (MAP) Pulse Ox O2 Delivery O2 Flow Rate FiO2 09/12/16 08:45 79 145/67 09/12/16 07:50 99.6 22 96 Nasal Cannula 2.0 09/08/16 12:45 95 I&O- Last 24 Hours up to 6 AM 09/12/16 06:00 Intake Total 330 ml Output Total 2500 ml Balance -2170 ml Laboratory Data 24H LABS Laboratory Tests 2 09/11/16 11:00: White Blood Count 11.2H, Red Blood Count 2.52L, Hemoglobin 8.3L, Hematocrit 27.0L, Mean Corpuscular Volume 107.1H, Mean Corpuscular Hemoglobin 32.9, Mean Corpuscular Hemoglobin Concent 30.7L, Red Cell Distribution Width 14.8H, Platelet Count 162, Neutrophils (%) (Auto) 92.3H, Lymphocytes (%) (Auto) 4.0L, Monocytes (%) (Auto) 2.5, Eosinophils (%) (Auto) 0.1, Basophils (%) (Auto) 0.1, Neutrophils # (Auto) 10.4H, Lymphocytes # (Auto) 0.5L, Monocytes # (Auto) 0.3, Eosinophils # (Auto) 0.0, Basophils # (Auto) 0.0, Large Unclassified Cells % 0.9 , Large Unclassified Cells # 0.1, Blood Urea Nitrogen 85H, Creatinine 8.93H, Sodium Level 139, Potassium Level 4.3, Chloride Level 101, Carbon Dioxide Level 27, Anion Gap 11, Glomerular Filtration Rate 6.1L, Calcium Level 8.4L, Phosphorus Level 5.6H, Albumin 2.3L 09/11/16 16:57: Bedside Glucose (Misc Panel) 251H 09/11/16 21:31: Bedside Glucose (Misc Panel) 309H 09/12/16 05:15: Blood Urea Nitrogen 47H, Creatinine 5.31H, Sodium Level 139, Potassium Level 4.1 , Chloride Level 103, Carbon Dioxide Level 23, Anion Gap 13, Glomerular Filtration Rate 11.1L, Calcium Level 8.1L, Phosphorus Level 3.5#, Albumin 2.4L CBC/BMP Laboratory Tests 09/11/16 11:00 Red Blood Count 2.52 L, Mean Corpuscular Volume 107.1 H, Mean Corpuscular Hemoglobin 32.9, Mean Corpuscular Hemoglobin Concent 30.7 L, Red Cell Distribution Width 14.8 H, Neutrophils (%) (Auto) 92.3 H, Lymphocytes (%) (Auto ) 4.0 L, Monocytes (%) (Auto) 2.5, Eosinophils (%) (Auto) 0.1, Basophils (%) ( Auto) 0.1, Neutrophils # (Auto) 10.4 H, Lymphocytes # (Auto) 0.5 L, Monocytes # (Auto) 0.3, Eosinophils # (Auto) 0.0, Basophils # (Auto) 0.0, Anion Gap 11 09/12/16 05:15 Red Blood Count 2.63 L, Mean Corpuscular Volume 102.8 H, Mean Corpuscular Hemoglobin 34.0 H, Mean Corpuscular Hemoglobin Concent 33.1, Red Cell Distribution Width 15.6 H, Anion Gap 13 Microbiology Microbiology 09/08/16 Blood Culture - Preliminary, Resulted No Growth after 72 hours. All specime... 09/08/16 Blood Culture - Final, Complete Staphylococcus Aureus 09/08/16 Urine Culture - Final, Complete 09/09/16 Wound Culture - Final, Complete Staphylococcus Aureus 09/09/16 Anaerobic Culture - Final, Complete ARLENE SANCHEZ PA-C Sep 12, 2016 10:19 MELCHOR SPENCE MD Sep 12, 2016 16:19
[2016-09-12] MEDS: SLF 3 ML SYR IV SCH ×2 (12:47→21:14)
[2016-09-12] MEDS: CHECK TO SEE IF PATIENT IS RECEIVING DIALYSIS TODAY AND REFER TO THE VANCOMYCIN ORDER XX SCH (15:44)
--- NOTE | 2016-09-12 17:40 | IPN ---
DATE: 09/12/2016 SUBJECTIVE: Patient was seen and examined at the bedside today in the morning. Patient still is slightly confused and obtunded. Otherwise he is not in any apparent distress. Patient got hemodialysis done yesterday via the right internal jugular (IJ) tunneled hemodialysis catheter. He tolerated the procedure well. Patient is afebrile and hemodynamically stable at this time. I was told by the nurses that patient is still having some oozing from the left arm arteriovenous (AV) graft site debridement wound. REVIEW OF SYSTEMS: Patient is unable to provide any reliable review of systems. He is oriented times two at this time. He denies any chest pain, shortness of breath, pain in abdomen, constipation. OBJECTIVE: Vital signs: Temperature is 99.6 degrees Fahrenheit, blood pressure is 145/67, pulse is 79, respiratory rate of 22, saturating 96% on nasal cannula at 2 liters. Intake and output: Urine output is not recorded. Patient was dialyzed yesterday. Ultrafiltration with hemodialysis was 2.5 liters. Weight in the bed scale is 93.3 kg. PHYSICAL EXAMINATION: GENERAL: Patient is awake, alert, oriented times two, lying in bed. No apparent distress. HEAD AND NECK: Extraocular muscles intact. Pupils equally round and reactive to light. Mucous membranes are noise. Neck is supple. There is no jugular venous distention (JVD). Patient has a tunneled right IJ hemodialysis catheter. CARDIOVASCULAR: S1, S2, regular rate. No murmur, rub, or gallop. RESPIRATORY: Mildly decreased breath sounds at the bases. Patient is lying down. Otherwise, no inspiratory crackles at this time. ABDOMEN: Soft. Positive bowel sounds. Nontender. No ascites. No organomegaly. EXTREMITIES: Patient has multiple dry, gangrenous areas on the toes, and he has improving erythema in the left leg AV access. Patient had a graft in the left upper arm, which has been ligated now and is covered with dressing, which is slightly soaked with blood. CENTRAL NERVOUS SYSTEM: Patient is oriented to himself and time. Otherwise, no focal neurological deficit. LABORATORY REVIEW: CBC showed a WBC of 12, hemoglobin is 9, platelets of 137. BMP showed sodium 139, potassium 4.1, chloride 103, bicarbonate 23, BUN 47, creatinine is 5.3, calcium 8.1, phosphorus 3.5, albumin is 2.4. Microbiology: Wound culture is growing Staphylococcus aureus. Repeat blood culture sent today morning is pending. CURRENT INPATIENT MEDICATIONS: Patient's Zosyn has been stopped. He continues to be on IV vancomycin 1 gram with hemodialysis. Last dose was given yesterday. Lovenox has been stopped. IV Solu-Medrol has been stopped, and he is getting a tapering dose of prednisone now. ASSESSMENT: An 81-year-old male with past medical history of end-stage renal disease, on hemodialysis, diabetes mellitus, type 2, peripheral vascular disease, admitted at this time with severe sepsis secondary to Staphylococcus aureus bacteremia. He was found to have infection of the left upper arm AV graft, which was debrided and ligated. Patient has a right IJ tunneled hemodialysis catheter at this time. PLAN: 1. End-stage renal disease. Patient was dialyzed yesterday via the tunneled right IJ hemodialysis catheter. Next hemodialysis session will be tomorrow. 2. Sepsis secondary to Staphylococcus aureus bacteremia. Patient is clinically improving. He is hemodynamically stable. Otherwise, he is still slightly obtunded. He continues to be on IV vancomycin. Wound is also growing Staphylococcus aureus. Repeat blood culture was sent again today. Continue the vancomycin for now. 3. Acute blood loss anemia. Patient is still oozing slight amount of blood from the wound. Wound care is as per vascular surgery. Patient was given 1 unit of PRBC transfusion yesterday with hemodialysis. If needed, patient will be given another unit of PRBC transfusion tomorrow during hemodialysis. Continue the Aranesp at this time as well. 4. Hypertension. Blood pressure is acceptable at this time. Patient is recovering from sepsis. I will hold off on any antihypertensive medications at this time apart from bisoprolol 5 mg by mouth twice a day, which he is receiving. 5. Chronic steroid dependence. Patient is hemodynamically stable now. I have stopped patient's IV Solu-Medrol, and I have started a tapering dose of prednisone starting from today.
[2016-09-12] MEDS: QUEtiapine FUMARATE 12.5 MG HALF-TAB PO SCH (21:12)
[2016-09-13] VITALS: BP 133/63; PULSE 70
[2016-09-13] MEDS: IPRATROPIUM 0.5MG/ALBUTEROL 2.5MG INH SOL UD 3ML (DUONEB)(J7620) NEB SCH ×4 (01:37→19:30)
[2016-09-13 04:00] VITALS: BP 135/71; PULSE 70
[2016-09-13 05:44] LABS: MEAN CORPUSCULAR HEMOGLOBIN 33.5 pg (27.0-33.0); MEAN CORPUSCULAR HGB CONC 32.1 g/dl (32.0-36.5); MEAN CORPUSCULAR VOLUME 104.3 fl (80.0-96.0); RED CELL DISTRIBUTION WIDTH 14.9 % (11.5-14.5); WHITE BLOOD COUNT 14.2 K/mm3 (4.0-10.0)
[2016-09-13] MEDS: SLF 3 ML SYR IV SCH ×3 (06:00→20:02)
[2016-09-13 06:06] LABS: ALBUMIN 2.4 GM/DL (3.2-5.2); CALCIUM LEVEL 7.8 MG/DL (8.8-10.2); CREATININE FOR GFR 6.95 MG/DL (0.70-1.30); GLOMERULAR FILTRATION RATE 8.2 (>35); PHOSPHORUS LEVEL 5.4 MG/DL (2.5-4.9); POTASSIUM SERUM 4.8 MEQ/L (3.5-5.1)
[2016-09-13] MEDS: BISOPROLOL FUMARATE 5 MG TAB PO SCH ×2 (07:03→20:02)
[2016-09-13] MEDS: ASPIRIN 81 MG ENTERIC TAB PO SCH (07:03)
[2016-09-13] MEDS: predniSONE 20 MG TAB PO SCH (07:04)
[2016-09-13] MEDS: CLOPIDOGREL 75 MG TAB PO SCH (07:04)
[2016-09-13] MEDS: HumaLOG INSULIN (NovoLOG) PER UNIT SC SCH ×4 (07:35→21:00)
[2016-09-13 08:00] VITALS: BP 178/79
[2016-09-13] MEDS ORDERED: HEPARIN 1,000 UNITS/ML 10ML VIAL (FOR RADIOLOGY& DIALYSIS ONLY) IV ONE (12:00)
[2016-09-13 12:30] VITALS: BP 163/74
[2016-09-13] MEDS: ceFAZolin SOD 1 GM in D5W MINI-BAG PLUS 50 ML IV SCH (15:29)
[2016-09-13] MEDS: [UNRECOGNIZED DRUG - REMARK] XX SCH (15:29)
[2016-09-13 16:00] VITALS: BP 166/71
--- NOTE | 2016-09-13 19:33 | IPN ---
DATE: 09/13/2016 Mr. Rodriguez is seen this morning on his bedside during hemodialysis. He was admitted with sepsis and altered mentation. He was found to have infected left arm arteriovenous (AV) graft, which has already been removed. He currently has a right internal jugular vein [id number], which is being used for dialysis. Nursing staff reports that the patient was awake earlier; however, he is currently sleeping. He is being treated with cephazolin for sepsis and infected left arm AV graft. He did have some bleeding from the left arm wound, which is now covered with dressing. PHYSICAL EXAMINATION: Temperature 97.2 degrees Fahrenheit, heart rate 78 per minute, respiratory rate 20 per minute, blood pressure 135/70 mm of mercury, and oxygen 100% on 2 liters oxygen. Head is atraumatic. The patient is currently sleeping and difficult to arouse. Neck veins are not abnormally distended. Right-sided internal jugular vein hemodialysis catheter is intact without any bleeding. Heart sounds are regular. Lungs have bilateral rhonchi. Abdomen: Obese and nontender. Extremities have no cyanosis or clubbing. Left arm wound is covered with dressing. He has chronic stasis changes in lower extremities. Today's labs show WBC count 14.2, hemoglobin 9.2, and hematocrit 28.5. Sodium 137, potassium 4.8, BUN 68, and creatinine 6.95. Calcium level 7.8 and phosphorus 5.4. PROBLEMS: 1. End-stage renal disease. The patient is currently being dialyzed. He is tolerating his dialysis treatment very well. 2. Staphylococcus aureus bacteremia with infected left arm AV graft. The patient is currently being treated with cephazolin. He is afebrile, and we will continue with the same. Infected AV graft from left arm has already been removed. Most recent blood cultures drawn on September 12 are negative so far. 3. Anemia. This is related to end-stage renal disease and acute infection. Anemia is stable and does not need any acute intervention at this point. 4. Congestive heart failure. His volume status is reasonably well compensated. We are removing about 2 liters fluid today. 5. Chronic obstructive pulmonary disease (COPD). The patient has been on tapering dose of steroids and seems to be stable at present. 6. Coronary artery disease. At present he is stable and asymptomatic. He remains on chronic medications, including Plavix, beta sacha, and aspirin.
[2016-09-13] MEDS: QUEtiapine FUMARATE 12.5 MG HALF-TAB PO SCH (20:02)
[2016-09-13 22:00] VITALS: BP 122/86
--- NOTE | 2016-09-13 23:42 | IPNPDOC ---
Subjective Date Seen The patient was seen on 09/13/16. Subjective Chief Complaint/HPI The patient is a 81-year-old male admitted with a reason for visit of Sepsis. Events since last encounter Per nursing he's been doing well. He had dialysis today and seemed to tolerate it just fine. General: Reports: ROS Unobtainable (patient was sleeping at the time of my visit. I chose not to wake him as he needs the rest.) Objective Physical Examination General Exam: Positive: No Acute Distress (sleeping comfortably when I entered the room) ENT Exam: Positive: Mucous membr. moist/pink Chest Exam: Positive: Diminished, Negative: Rales, Rhonchi, Wheezing Heart Exam: Positive: Rate Normal, Regular Rhythm Abdomen Exam: Positive: Normal bowel sounds, Soft Extremity Exam: Positive: Edema (trace only), Other (BL feet with dry gangrene on all toes - chronic and stable.) Assessment /Plan Problems (1) Sepsis Status: Acute Problem Text: LUE AVF wound debrided by Dr. Corral on 09/09/16 - wound culture grew Staph aureus. Dr. May recommended changing his antibiotic to cefazolin which started on 09/12. (2) Acute and chronic respiratory failure with hypoxia Status: Acute Response to Treatment: Improving Problem Text: Sats remain stable. O2 has been successfully weaned to 1-2 L/min. (3) Cellulitis Status: Acute Problem Specific Plan: Monitor Clinically Problem Text: Erythema has improved. See Sepsis above. (4) ESRD (end stage renal disease) Status: Chronic Problem Text: Permacath placed on 09/11/16. Last received dialysis today (09/13/16) . Management per Nephrology (5) Insomnia Status: Acute Problem Specific Plan: Monitor Clinically Problem Text: Seroquel seems to be helping him. The nurses reported he was getting agitated in the late afternoon, and he was sleeping comfortable at the time of my exam in the evening. (6) CAD (coronary artery disease) Status: Chronic Response to Treatment: Stable Problem Text: No active sx; continue chronic medications (7) Diabetes Status: Chronic Response to Treatment: Stable Problem Text: Continue SSI (8) COPD (chronic obstructive pulmonary disease) Status: Chronic Response to Treatment: Stable (9) Diastolic CHF Status: Chronic Problem Text: Patient currently appears clinically dry. Defer to renal further IVF replacement. 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 Wound care did not recommend any further intervention at this time. Plan/VTE VTE Prophylaxis Ordered?: Yes (Lovenox) Plan/Urinary Catheter Reason for insertion/continuin: Critical Pt monitoring VS, I&O, 24H, Fishbone Vital Signs/I&O Vital Signs Date Time Temp Pulse Resp B/P (MAP) Pulse Ox O2 Delivery O2 Flow Rate FiO2 09/13/16 22:00 98.2 71 18 122/86 (98) 96 Nasal Cannula 2.0 09/08/16 12:45 95 I&O- Last 24 Hours up to 6 AM 09/13/16 06:00 Intake Total 690 ml Output Total 0 ml Balance 690 ml Laboratory Data 24H LABS Laboratory Tests 2 09/13/16 05:14: Blood Urea Nitrogen 68H, Creatinine 6.95H, Sodium Level 137, Potassium Level 4.8 , Chloride Level 103, Carbon Dioxide Level 21, Anion Gap 13, Glomerular Filtration Rate 8.2L, Calcium Level 7.8L, Phosphorus Level 5.4#H, Albumin 2.4L 09/13/16 12:41: Bedside Glucose (Misc Panel) 65L 09/13/16 20:10: Bedside Glucose (Misc Panel) 192H CBC/BMP Laboratory Tests 09/13/16 05:14 Red Blood Count 2.74 L, Mean Corpuscular Volume 104.3 H, Mean Corpuscular Hemoglobin 33.5 H, Mean Corpuscular Hemoglobin Concent 32.1, Red Cell Distribution Width 14.9 H, Anion Gap 13 Microbiology Microbiology 09/12/16 Blood Culture - Preliminary, Resulted No growth after 24 hours . All specim... 09/08/16 Blood Culture - Final, Complete NO GROWTH AFTER 5 DAYS 09/08/16 Blood Culture - Final, Complete Staphylococcus Aureus 09/08/16 Urine Culture - Final, Complete 09/09/16 Wound Culture - Final, Complete Staphylococcus Aureus 09/09/16 Anaerobic Culture - Final, Complete Madhav Ingram MD Sep 13, 2016 23:42
[2016-09-14] MEDS: IPRATROPIUM 0.5MG/ALBUTEROL 2.5MG INH SOL UD 3ML (DUONEB)(J7620) NEB SCH ×4 (01:43→20:01)
[2016-09-14] MEDS: SLF 3 ML SYR IV SCH ×3 (05:31→23:27)
[2016-09-14 06:00] VITALS: BP 131/84
[2016-09-14] MEDS: predniSONE 20 MG TAB PO SCH (09:58)
[2016-09-14] MEDS: CLOPIDOGREL 75 MG TAB PO SCH (09:58)
[2016-09-14] MEDS: ASPIRIN 81 MG ENTERIC TAB PO SCH (09:58)
[2016-09-14] MEDS: BISOPROLOL FUMARATE 5 MG TAB PO SCH ×2 (09:59→23:27)
[2016-09-14] MEDS: HumaLOG INSULIN (NovoLOG) PER UNIT SC SCH ×4 (09:59→21:00)
[2016-09-14 10:00] VITALS: BP 122/87
[2016-09-14 14:00] VITALS: BP 148/76
[2016-09-14] MEDS: [UNRECOGNIZED DRUG - REMARK] XX SCH (14:23)
--- NOTE | 2016-09-14 19:56 | IPN ---
DATE: 09/14/2016 Mr. Rodriguez is seen this morning on his bedside. His daughter is present in the room today. The patient has YOLANDA bandage wrapped on his left arm and it is elevated on a pillow. He is much more alert and awake today. He was able to answer simple questions. His daughter reports that he has not been eating well at all. On physical examination, temperature 97.6 degrees Fahrenheit, heart rate 76 per minute and respiratory rate 20 per minute. Blood pressure 131/84 mmHg and oxygen saturation between 91% and 96% on 2 liters oxygen. Head is atraumatic. Neck veins are difficult to be assessed. Oral mucosa is somewhat dry but without any thrush or ulcers. Pupils are equal and reactive to light and sclera is anicteric. He has a right internal jugular vein hemodialysis catheter in place without any infection or bleeding. Heart sounds are regular and distant. Lungs have bilateral rhonchi. Abdomen obese, soft and nontender. Extremities without any cyanosis or clubbing. His left upper extremity is elevated on a pillow and wrapped in YOLANDA bandage. His hand is swollen, but he is able to move his fingers. On the right leg, he has a soft tissue swelling in front of soliz without any tenderness, redness or fluctuation. He has gangrenous skin changes on both feet. The patient does not have any new laboratories today. PROBLEMS: 1. End-stage renal disease. Patient underwent hemodialysis yesterday, which he tolerated very well. We will reevaluate him tomorrow morning for further dialysis treatment. I will also repeat his labs, including renal profile and complete blood count (CBC) tomorrow morning. 2. Congestive heart failure and shortness of breath. The patient has a combination of chronic obstructive pulmonary disease (COPD) and congestive heart failure. His volume status improved with hemodialysis yesterday. We will try to remove further fluid as tolerated with the next hemodialysis. 3. Sepsis with infected graft, left arm. Patient already had his graft removed. He is being treated with antibiotics and has been afebrile. 4. Anemia. He has anemia of blood loss and end-stage renal disease. CBC will be checked tomorrow morning. We will treat him with Aranesp during dialysis. 5. Malnutrition. Patient has not been eating very well for several days. He would like to get a soft diet and I have changed his diet to diabetic soft diet. 6. Diabetes. His diabetes seems to be reasonably well-controlled.
[2016-09-14 22:00] VITALS: BP 151/74
[2016-09-14] MEDS: QUEtiapine FUMARATE 12.5 MG HALF-TAB PO SCH (23:22)
[2016-09-14] MEDS: MORPHINE 2 MG/ML 1ML SYRINGE IV PRN (23:28)
--- NOTE | 2016-09-15 00:51 | IPNPDOC ---
Subjective Date Seen The patient was seen on 09/14/16. Subjective Chief Complaint/HPI The patient is a 81-year-old male admitted with a reason for visit of Sepsis. Events since last encounter He reports that the nurses are sometimes making him do things he doesn't want to do. Other than that he has no complaints. The nurses reported it took them 20 minutes to get him to allow them to clean him up after he defecated. General: Reports: ROS Unobtainable (confused/sometimes tangential speech) Objective Physical Examination General Exam: Positive: No Acute Distress Eye Exam: Positive: Conjunctiva & lids normal, Negative: Sclera icteric ENT Exam: Positive: Mucous membr. 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 Corral on 09/09/16 - wound culture grew Staph aureus. Dr. May recommended changing his antibiotic to cefazolin which started on 09/12. (2) Acute and chronic respiratory failure with hypoxia Status: Acute Response to Treatment: Improving Problem Text: Sats remain stable. O2 has been successfully weaned to 1-2 L/min. (3) Cellulitis Status: Acute Problem Specific Plan: Monitor Clinically Problem Text: Erythema has improved. See Sepsis above. (4) ESRD (end stage renal disease) Status: Chronic Problem Text: Permacath placed on 09/11/16. Last received dialysis on (09/13/16). Management per Nephrology (5) Insomnia Status: Acute Problem Specific Plan: Monitor Clinically Problem Text: Seroquel seems to be helping him. The nurses reported he was getting agitated in the late afternoon, and he was sleeping comfortable at the time of my exam in the evening. (6) CAD (coronary artery disease) Status: Chronic Response to Treatment: Stable Problem Text: No active sx; continue chronic medications (7) Diabetes Status: Chronic Response to Treatment: Stable Problem Text: Continue SSI (8) COPD (chronic obstructive pulmonary disease) Status: Chronic Response to Treatment: Stable (9) Diastolic CHF Status: Chronic Problem Text: Patient currently appears clinically dry. Defer to renal further IVF replacement. 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 Wound care did not recommend any further intervention at this time. Plan/VTE VTE Prophylaxis Ordered?: Yes (Lovenox) Plan/Urinary Catheter Reason for insertion/continuin: Critical Pt monitoring VS, I&O, 24H, Fishbone Vital Signs/I&O Vital Signs Date Time Temp Pulse Resp B/P (MAP) Pulse Ox O2 Delivery O2 Flow Rate FiO2 09/14/16 23:38 18 Room Air 09/14/16 23:28 94 09/14/16 23:27 76 151/74 09/14/16 22:00 98.7 2.0 I&O- Last 24 Hours up to 6 AM 09/15/16 06:00 Intake Total 420 ml Output Total 0 ml Balance 420 ml Laboratory Data 24H LABS Laboratory Tests 2 09/14/16 06:41: Bedside Glucose (Misc Panel) 176H 09/14/16 11:44: Bedside Glucose (Misc Panel) 205H 09/14/16 16:48: Bedside Glucose (Misc Panel) 238H 09/14/16 21:07: Bedside Glucose (Misc Panel) 230H Microbiology Microbiology 09/12/16 Blood Culture - Preliminary, Resulted No Growth after 48 hours. All Specime... 09/08/16 Blood Culture - Final, Complete NO GROWTH AFTER 5 DAYS 09/08/16 Blood Culture - Final, Complete Staphylococcus Aureus 09/08/16 Urine Culture - Final, Complete 09/09/16 Wound Culture - Final, Complete Staphylococcus Aureus 09/09/16 Anaerobic Culture - Final, Complete Madhav Ingram MD Sep 15, 2016 12:51 am
[2016-09-15] MEDS: IPRATROPIUM 0.5MG/ALBUTEROL 2.5MG INH SOL UD 3ML (DUONEB)(J7620) NEB SCH ×4 (01:44→21:25)
[2016-09-15 02:00] VITALS: BP 144/78
[2016-09-15 06:00] VITALS: BP 146/71
[2016-09-15] MEDS: SLF 3 ML SYR IV SCH ×3 (06:47→20:08)
[2016-09-15 07:00] LABS: ALBUMIN 2.2 GM/DL (3.2-5.2); CALCIUM LEVEL 7.9 MG/DL (8.8-10.2); CREATININE FOR GFR 7.13 MG/DL (0.70-1.30); GLOMERULAR FILTRATION RATE 7.9 (>35); PHOSPHORUS LEVEL 4.2 MG/DL (2.5-4.9); POTASSIUM SERUM 4.2 MEQ/L (3.5-5.1)
[2016-09-15 07:01] LABS: MEAN CORPUSCULAR HEMOGLOBIN 32.6 pg (27.0-33.0); MEAN CORPUSCULAR HGB CONC 31.9 g/dl (32.0-36.5); MEAN CORPUSCULAR VOLUME 102.2 fl (80.0-96.0); RED CELL DISTRIBUTION WIDTH 15.2 % (11.5-14.5); WHITE BLOOD COUNT 14.5 K/mm3 (4.0-10.0)
[2016-09-15] MEDS: HumaLOG INSULIN (NovoLOG) PER UNIT SC SCH ×4 (08:14→20:08)
[2016-09-15] MEDS: CLOPIDOGREL 75 MG TAB PO SCH (08:15)
[2016-09-15] MEDS: predniSONE 10 MG TAB PO SCH (08:15)
[2016-09-15] MEDS: BISOPROLOL FUMARATE 5 MG TAB PO SCH ×3 (08:15→20:13)
[2016-09-15] MEDS: ASPIRIN 81 MG ENTERIC TAB PO SCH (08:15)
--- NOTE | 2016-09-15 08:40 | IPNPDOC ---
Subjective Date Seen The patient was seen on 09/15/16. Subjective Chief Complaint/HPI The patient is a 81-year-old male admitted with a reason for visit of Sepsis. Events since last encounter Pt denies new issues. Denies CP, SOB, Abd pain. Constitutional: Denies: Chills, Fever Pulmonary: Denies: Dyspnea Cardiovascular: Denies: Chest Pain Gastrointestinal: Denies: Nausea, Vomiting, Abdominal Pain Objective Physical Examination General Exam: Positive: No Acute Distress Eye Exam: Positive: Conjunctiva & lids normal, Negative: Sclera icteric ENT Exam: Positive: Mucous membr. 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 Corral on 09/09/16 - wound culture grew Staph aureus. Dr. May recommended changing his antibiotic to cefazolin which started on 09/12. (2) Acute and chronic respiratory failure with hypoxia Status: Acute Response to Treatment: Improving Problem Text: Sats remain stable. O2 has been successfully weaned to 1-2 L/min. (3) Cellulitis Status: Acute Problem Specific Plan: Monitor Clinically Problem Text: Erythema has improved. See Sepsis above. (4) ESRD (end stage renal disease) Status: Chronic Problem Text: Permacath placed on 09/11/16. Last received dialysis on (09/13/16). Management per Nephrology (5) Insomnia Status: Acute Problem Specific Plan: Monitor Clinically Problem Text: 09/15 - On Seroquel qhs. 09/14 - Seroquel seems to be helping him. The nurses reported he was getting agitated in the late afternoon, and he was sleeping comfortable at the time of my exam in the evening. (6) CAD (coronary artery disease) Status: Chronic Response to Treatment: Stable Problem Text: No active sx; continue chronic medications (7) Diabetes Status: Chronic Response to Treatment: Stable Problem Text: Continue SSI (8) COPD (chronic obstructive pulmonary disease) Status: Chronic Response to Treatment: Stable (9) Diastolic CHF Status: Chronic Problem Text: Patient currently appears clinically dry. Defer to renal further IVF replacement. 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 Wound care did not recommend any further intervention at this time. Plan/VTE VTE Prophylaxis Ordered?: Yes (Lovenox) Plan/Urinary Catheter Reason for insertion/continuin: Critical Pt monitoring VS, I&O, 24H, Fishbone Vital Signs/I&O Vital Signs Date Time Temp Pulse Resp B/P (MAP) Pulse Ox O2 Delivery O2 Flow Rate FiO2 09/15/16 08:15 79 146/71 09/15/16 07:57 Room Air 09/15/16 06:00 98.5 20 95 2.0 I&O- Last 24 Hours up to 6 AM 09/15/16 06:00 Intake Total 480 ml Output Total 0 ml Balance 480 ml Laboratory Data 24H LABS Laboratory Tests 2 09/14/16 11:44: Bedside Glucose (Misc Panel) 205H 09/14/16 16:48: Bedside Glucose (Misc Panel) 238H 09/14/16 21:07: Bedside Glucose (Misc Panel) 230H 09/15/16 06:20: Blood Urea Nitrogen 72H, Creatinine 7.13H, Sodium Level 141, Potassium Level 4.2 , Chloride Level 106, Carbon Dioxide Level 25, Anion Gap 10, Glomerular Filtration Rate 7.9L, Calcium Level 7.9L, Phosphorus Level 4.2#, Albumin 2.2L CBC/BMP Laboratory Tests 09/15/16 06:20 Red Blood Count 2.69 L, Mean Corpuscular Volume 102.2 H, Mean Corpuscular Hemoglobin 32.6, Mean Corpuscular Hemoglobin Concent 31.9 L, Red Cell Distribution Width 15.2 H, Anion Gap 10 Microbiology Microbiology 09/12/16 Blood Culture - Preliminary, Resulted No Growth after 48 hours. All Specime... 09/08/16 Blood Culture - Final, Complete NO GROWTH AFTER 5 DAYS 09/08/16 Blood Culture - Final, Complete Staphylococcus Aureus 09/08/16 Urine Culture - Final, Complete 09/09/16 Wound Culture - Final, Complete Staphylococcus Aureus 09/09/16 Anaerobic Culture - Final, Complete Mango Tao [facility] Sep 15, 2016 08:40
[2016-09-15 10:00] VITALS: BP 149/71
[2016-09-15] MEDS: [UNRECOGNIZED DRUG - REMARK] XX SCH (15:20)
--- NOTE | 2016-09-15 20:42 | IPN ---
DATE: 09/15/2016 Mr. Rodriguez is seen this morning on his bedside. He is feeling better today; however, his left arm is still wrapped in YOLANDA bandage with significant edema of his hand. He denies any nausea, vomiting, any worsening of dyspnea or chest pain. On physical examination, temperature 98.5 degrees Fahrenheit, heart rate 80 per minute and respiratory rate 20 per minute. Blood pressure 146/70 mmHg and oxygen saturation 95% on 2 liters oxygen. His head is atraumatic. Neck veins are mildly distended. Pupils are equal and reactive to light and sclera is anicteric. Ears, nose and throat are unremarkable. Dialysis catheter in right internal jugular vein is intact without any bleeding or infection. Heart sounds are regular, distant. Lungs with bilateral rhonchi and moderate bilateral air entry. Abdomen obese, soft and nontender. Extremities without any cyanosis or clubbing. Left hand is markedly swollen and YOLANDA bandage is wrapped on his left arm starting from shoulder to his wrist. Neurologically, he is awake, alert and oriented times three. Today's laboratories show WBC count 14.5, hemoglobin 8.8 and hematocrit 27.5. Platelets 247. Sodium 141 and potassium 4.2. BUN 72 and creatinine 7.13. PROBLEMS: 1. End-stage renal disease. The patient was dialyzed on Thursday and his next dialysis will be scheduled for tomorrow. There is no emergent indication for dialysis today. 2. Anemia. This is most likely related to acute blood loss and end-stage renal disease. He did have some bleeding from his left arm wound where his infected graft was removed. At present there is no active bleeding and will continue to monitor. 3. Left hand swelling. This is most likely related to YOLANDA bandage. I talked to his nurse and advised to loosen the YOLANDA bandage. I was advised to notify the surgeon about his hand swelling. 4. Congestive heart failure and chronic obstructive pulmonary disease (COPD). At present, he seems to be at his chronic baseline. We will try to remove at least 2 liters of fluid with the next hemodialysis tomorrow. 5. Malnutrition. The patient has not been eating very well. His diet was changed yesterday to soft diet. The patient will need assistance with feeding due to chronic tremors and inability to use his left arm at all.
[2016-09-15 22:00] VITALS: BP 129/59
[2016-09-16] MEDS: IPRATROPIUM 0.5MG/ALBUTEROL 2.5MG INH SOL UD 3ML (DUONEB)(J7620) NEB SCH ×4 (01:23→19:52)
[2016-09-16 02:00] VITALS: BP 140/63
[2016-09-16] MEDS: MORPHINE 2 MG/ML 1ML SYRINGE IV PRN (02:43)
[2016-09-16 06:00] VITALS: BP 131/66
[2016-09-16] MEDS: predniSONE 10 MG TAB PO SCH (06:23)
[2016-09-16] MEDS: SLF 3 ML SYR IV SCH ×3 (06:23→20:48)
[2016-09-16] MEDS: BISOPROLOL FUMARATE 5 MG TAB PO SCH ×2 (06:24→20:47)
[2016-09-16] MEDS: ASPIRIN 81 MG ENTERIC TAB PO SCH (06:24)
[2016-09-16] MEDS: CLOPIDOGREL 75 MG TAB PO SCH (06:24)
[2016-09-16 07:09] LABS: MEAN CORPUSCULAR HEMOGLOBIN 33.3 pg (27.0-33.0); MEAN CORPUSCULAR HGB CONC 31.5 g/dl (32.0-36.5); MEAN CORPUSCULAR VOLUME 105.6 fl (80.0-96.0); PLATELET COUNT, AUTOMATED 253 k/mm3 (150-450); RED CELL DISTRIBUTION WIDTH 15.8 % (11.5-14.5); WHITE BLOOD COUNT 16.6 K/mm3 (4.0-10.0)
[2016-09-16 07:16] LABS: ALBUMIN 2.4 GM/DL (3.2-5.2); CALCIUM LEVEL 7.8 MG/DL (8.8-10.2); CREATININE FOR GFR 8.89 MG/DL (0.70-1.30); GLOMERULAR FILTRATION RATE 6.1 (>35); PHOSPHORUS LEVEL 6.7 MG/DL (2.5-4.9); POTASSIUM SERUM 4.8 MEQ/L (3.5-5.1)
[2016-09-16] MEDS: HumaLOG INSULIN (NovoLOG) PER UNIT SC SCH ×4 (08:08→20:47)
[2016-09-16] MEDS ORDERED: HEPARIN 1,000 UNITS/ML 10ML VIAL (FOR RADIOLOGY& DIALYSIS ONLY) IV ONE (12:45)
[2016-09-16] MEDS ORDERED: HEPARIN 1,000 UNITS/ML 10ML VIAL (FOR RADIOLOGY& DIALYSIS ONLY) XX ONE (12:45)
[2016-09-16] MEDS: [UNRECOGNIZED DRUG - REMARK] XX SCH (13:12)
[2016-09-16] MEDS: ceFAZolin SOD 1 GM in D5W MINI-BAG PLUS 50 ML IV SCH (13:12)
[2016-09-16 14:00] VITALS: BP 131/64
--- NOTE | 2016-09-16 16:41 | IPNPDOC ---
Subjective Date Seen The patient was seen on 09/16/16. Subjective Chief Complaint/HPI The patient is a 81-year-old male admitted with a reason for visit of Sepsis. Events since last encounter Patient is doing well today. His only complaint is with "a stomach ache." Eating and drinking. Urinating without difficulty. He denies any constipation, diarrhea, nausea, fevers, or chills. Constitutional: Denies: Chills, Fever, Malaise Skin: Denies: Rash Pulmonary: Denies: Dyspnea, Cough Cardiovascular: Denies: Chest Pain, Palpitations, Orthopnea Gastrointestinal: Reports: Abdominal Pain, Denies: Nausea, Vomiting, Diarrhea, Constipation Genitourinary: Denies: Dysuria Hematologic: Denies: Bruising Other systems 10 point review systems otherwise negative Objective Physical Examination General Exam: Positive: No Acute Distress Eye Exam: Positive: Conjunctiva & lids normal, Negative: Sclera icteric ENT Exam: Positive: Mucous membr. 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 Corral on 09/09/16 - wound culture grew Staph aureus. Dr. May recommended changing his antibiotic to cefazolin which started on 09/12. (2) Acute and chronic respiratory failure with hypoxia Status: Acute Response to Treatment: Improving Problem Text: Sats remain stable. O2 has been successfully weaned to 1-2 L/min. (3) Cellulitis Status: Acute Problem Specific Plan: Monitor Clinically Problem Text: Erythema has improved. See Sepsis above. (4) ESRD (end stage renal disease) Status: Chronic Problem Text: Permacath placed on 09/11/16. Last received dialysis on (09/16/16). Management per Nephrology (5) Insomnia Status: Acute Problem Specific Plan: Monitor Clinically Problem Text: Insomnia is currently managed with Seroquel (6) CAD (coronary artery disease) Status: Chronic Response to Treatment: Stable Problem Text: No active sx; continue chronic medications (7) Diabetes Status: Chronic Response to Treatment: Stable Problem Text: Continue SSI (8) COPD (chronic obstructive pulmonary disease) Status: Chronic Response to Treatment: Stable (9) Diastolic CHF Status: Chronic Problem Text: Patient currently appears clinically dry. Defer to renal further IVF replacement. 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 Wound care did not recommend any further intervention at this time. (12) Abdominal pain Status: Acute Problem Text: Patient is hyperresonant on exam, and I suspect that he has gas pains. No guarding or rebound. Eating and drinking, no nausea. -Simethicone Plan/VTE VTE Prophylaxis Ordered?: Yes (Lovenox) Plan/Urinary Catheter Reason for insertion/continuin: Critical Pt monitoring VS, [facility]O Vital Signs Date Time Temp Pulse Resp B/P (MAP) Pulse Ox O2 Delivery O2 Flow Rate FiO2 09/16/16 14:00 97.7 70 20 131/64 (86) 95 Nasal Cannula 2.0 I&O- Last 24 Hours up to 6 AM 09/16/16 06:00 Intake Total 120 ml Balance 120 ml Laboratory Data 24H LABS Laboratory Tests 2 09/15/16 19:45: Bedside Glucose (Misc Panel) 209H 09/16/16 06:42: Neutrophils 76H, Lymphocytes (Manual) 24, Platelet Estimate NORMAL, Macrocytosis 2+, Blood Urea Nitrogen 88H, Creatinine 8.89H, Sodium Level 139, Potassium Level 4.8, Chloride Level 105, Carbon Dioxide Level 22, Anion Gap 12, Glomerular Filtration Rate 6.1L, Calcium Level 7.8L, Phosphorus Level 6.7#H, Albumin 2.4L 09/16/16 13:04: Bedside Glucose (Misc Panel) 160H 09/16/16 16:18: Bedside Glucose (Misc Panel) 211H CBC/BMP Laboratory Tests 09/16/16 06:42 Red Blood Count 2.74 L, Mean Corpuscular Volume 105.6 H, Mean Corpuscular Hemoglobin 33.3 H, Mean Corpuscular Hemoglobin Concent 31.5 L, Red Cell Distribution Width 15.8 H, Anion Gap 12 Microbiology Microbiology 09/12/16 Blood Culture - Preliminary, Resulted No Growth after 72 hours. All specime... 09/08/16 Blood Culture - Final, Complete NO GROWTH AFTER 5 DAYS 09/08/16 Blood Culture - Final, Complete Staphylococcus Aureus 09/08/16 Urine Culture - Final, Complete 09/09/16 Wound Culture - Final, Complete Staphylococcus Aureus 09/09/16 Anaerobic Culture - Final, Complete RYA FIGUEREDO MD Sep 16, 2016 16:41
--- NOTE | 2016-09-16 17:35 | IPN ---
DATE: 09/16/2016 Mr. Rodriguez is seen this morning during hemodialysis. He is awake and alert today. His left hand edema has improved. His dyspnea is chronic and unchanged. He denies any fever, chills, nausea or vomiting. PHYSICAL EXAMINATION: Temperature 99.7 degrees Fahrenheit, heart rate 60 per minute and respiratory rate 18 per minute. Blood pressure 131/66 mmHg and oxygen saturation 99% on 2 liters oxygen. Head is atraumatic. Neck is supple and without any jugular venous distention (JVD) or thyroid enlargement. Ears, nose and throat are unremarkable. Pupils equal and reactive to light and sclerae is anicteric. Internal jugular vein dialysis catheter on right side is intact without any bleeding. Heart sounds are irregular and distant. Lungs have bilateral rhonchi. Abdomen soft and nontender and without any palpable organomegaly. Bowel sounds are normal. Extremities have no cyanosis or clubbing. Left arm is wrapped in the Socrates dressing. Left hand edema has improved. Bilateral lower extremity ischemic skin changes are unchanged. Today's labs show WBC count 16.6, hemoglobin 9.1 and hematocrit 28.9. Sodium 139 and potassium 4.8. BUN 88 and creatinine 8.89. Calcium 7.8 and phosphorus 6.7. PROBLEMS: 1. End-stage renal disease. The patient is currently being dialyzed. He will complete his 3-1/2-hour dialysis treatment today. He is tolerating dialysis very well. 2. Congestive heart failure and shortness of breath. This is a chronic issue and related to chronic lung disease and volume overload. We are removing about 2 liters of fluid which he is tolerating very well. 3. Blood loss anemia. The patient did have some bleeding from his left arm AV graft site. Anemia is stable and we are treating it with intravenous Aranesp during hemodialysis once a week. No IV iron is being given at this point due to recent bacteremia. 4. Infected AV graft left arm with sepsis. The patient remains on cephazolin and has been afebrile. Infected graft has already been removed. 5. Diabetes. His blood sugars are reasonably well-controlled on current medications.
[2016-09-16 22:00] VITALS: BP 146/67
[2016-09-17] MEDS: IPRATROPIUM 0.5MG/ALBUTEROL 2.5MG INH SOL UD 3ML (DUONEB)(J7620) NEB SCH ×4 (00:23→20:04)
[2016-09-17 02:00] VITALS: BP 151/77
[2016-09-17] MEDS: SLF 3 ML SYR IV SCH ×3 (05:00→20:17)
[2016-09-17 06:00] VITALS: BP 164/79
[2016-09-17 07:27] LABS: MEAN CORPUSCULAR HGB CONC 31.5 g/dl (32.0-36.5); MEAN CORPUSCULAR VOLUME 104.9 fl (80.0-96.0); PLATELET COUNT, AUTOMATED 238 k/mm3 (150-450); RED CELL DISTRIBUTION WIDTH 16.7 % (11.5-14.5); WHITE BLOOD COUNT 14.3 K/mm3 (4.0-10.0)
[2016-09-17 07:40] LABS: EOSINOPHILS 1 % (0-5); NUCLEATED RED BLOOD CELL 1 % (0-0)
[2016-09-17 07:42] LABS: ANISOCYTOSIS 1+; POLYCHROMASIA 2+
[2016-09-17 07:43] LABS: HYPOCHROMASIA 1+
[2016-09-17 07:48] LABS: ALBUMIN 2.2 GM/DL (3.2-5.2); CALCIUM LEVEL 7.3 MG/DL (8.8-10.2); CREATININE FOR GFR 6.28 MG/DL (0.70-1.30); GLOMERULAR FILTRATION RATE 9.2 (>35); PHOSPHORUS LEVEL 3.9 MG/DL (2.5-4.9); POTASSIUM SERUM 3.6 MEQ/L (3.5-5.1)
[2016-09-17] MEDS: HumaLOG INSULIN (NovoLOG) PER UNIT SC SCH ×5 (08:33→20:17)
[2016-09-17] MEDS: ASPIRIN 81 MG ENTERIC TAB PO SCH (08:34)
[2016-09-17] MEDS: BISOPROLOL FUMARATE 5 MG TAB PO SCH ×2 (08:34→20:17)
[2016-09-17] MEDS: CLOPIDOGREL 75 MG TAB PO SCH (08:34)
--- NOTE | 2016-09-17 10:19 | IPNPDOC ---
Subjective Date Seen The patient was seen on 09/17/16. Subjective Chief Complaint/HPI The patient is a 81-year-old male admitted with a reason for visit of Sepsis. Events since last encounter Pt denies any new issues. Denies CP, SOB, Abd pain. Constitutional: Denies: Chills, Fever Pulmonary: Denies: Dyspnea Cardiovascular: Denies: Chest Pain Gastrointestinal: Denies: Nausea, Vomiting, Abdominal Pain Objective Physical Examination General Exam: Positive: No Acute Distress Eye Exam: Positive: Conjunctiva & lids normal, Negative: Sclera icteric ENT Exam: Positive: Mucous membr. moist/pink Chest Exam: Positive: Diminished (secondary to the extrinsic weight of his chest wall), Negative: Rales, Rhonchi, Wheezing Heart Exam: Positive: Rate Normal, Regular Rhythm, Normal S1, Normal S2, Murmurs (1/6 systolic ejection murmur) Abdomen Exam: Positive: Normal bowel sounds, Soft, Other (hyperresonant to percussion without appreciable distention; no guarding or rebound), Negative: Tenderness Extremity Exam: Positive: Edema (edema of the left arm with compression dressing on upper bicep; no erythema at surgical site), Other (BL feet with dry gangrene on all toes - chronic and stable.) Psych Exam: Negative: Memory Intact Assessment /Plan Problems (1) Sepsis Status: Acute Problem Text: LUE AVF wound debrided by Dr. Corral on 09/09/16 - wound culture grew Staph aureus. Dr. May recommended changing his antibiotic to cefazolin which started on 09/12. (2) Acute and chronic respiratory failure with hypoxia Status: Acute Response to Treatment: Improving Problem Text: Sats remain stable. O2 has been successfully weaned to 1-2 L/min. (3) Cellulitis Status: Acute Problem Specific Plan: Monitor Clinically Problem Text: Erythema has improved. See Sepsis above. (4) ESRD (end stage renal disease) Status: Chronic Problem Text: Permacath placed on 09/11/16. Last received dialysis on (09/16/16). Management per Nephrology (5) Insomnia Status: Acute Problem Specific Plan: Monitor Clinically Problem Text: Insomnia is currently managed with Seroquel (6) CAD (coronary artery disease) Status: Chronic Response to Treatment: Stable Problem Text: No active sx; continue chronic medications (7) Diabetes Status: Chronic Response to Treatment: Stable Problem Text: Continue SSI (8) COPD (chronic obstructive pulmonary disease) Status: Chronic Response to Treatment: Stable (9) Diastolic CHF Status: Chronic Problem Text: Patient currently appears clinically dry. Defer to renal further IVF replacement. 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 Wound care did not recommend any further intervention at this time. (12) Abdominal pain Status: Acute Problem Text: Patient is hyperresonant on exam, and I suspect that he has gas pains. No guarding or rebound. Eating and drinking, no nausea. -Simethicone Plan/VTE VTE Prophylaxis Ordered?: Yes (Lovenox) Plan/Urinary Catheter Reason for insertion/continuin: Critical Pt monitoring VS, I&O, 24H, Fishbone Vital Signs/I&O Vital Signs Date Time Temp Pulse Resp B/P (MAP) Pulse Ox O2 Delivery O2 Flow Rate FiO2 09/17/16 08:52 Nasal Cannula 2.0 09/17/16 08:34 69 164/79 09/17/16 06:00 98.0 18 100 I&O- Last 24 Hours up to 6 AM 09/17/16 05:59 Intake Total 840 ml Output Total 2000 ml Balance -1160 ml Laboratory Data 24H LABS Laboratory Tests 2 09/16/16 13:04: Bedside Glucose (Misc Panel) 160H 09/16/16 16:18: Bedside Glucose (Misc Panel) 211H 09/16/16 20:23: Bedside Glucose (Misc Panel) 238H 09/17/16 07:05: Neutrophils 79H, Lymphocytes (Manual) 13L, Monocytes (Manual) 3, Eosinophils ( Manual) 1, Metamyelocytes 3H, Myelocytes 1H, Nucleated Red Blood Cells 1H, Platelet Estimate NORMAL, Polychromasia 2+, Hypochromasia 1+, Anisocytosis 1+, Macrocytosis 1+, Blood Urea Nitrogen 53H, Creatinine 6.28H, Sodium Level 141, Potassium Level 3.6#, Chloride Level 105, Carbon Dioxide Level 25, Anion Gap 11 , Glomerular Filtration Rate 9.2L, Calcium Level 7.3L, Phosphorus Level 3.9#, Albumin 2.2L CBC/BMP Laboratory Tests 09/17/16 07:05 Red Blood Count 2.64 L, Mean Corpuscular Volume 104.9 H, Mean Corpuscular Hemoglobin 33.0, Mean Corpuscular Hemoglobin Concent 31.5 L, Red Cell Distribution Width 16.7 H, Anion Gap 11 Microbiology Microbiology 09/12/16 Blood Culture - Preliminary, Resulted No Growth after 72 hours. All specime... 09/08/16 Blood Culture - Final, Complete NO GROWTH AFTER 5 DAYS 09/08/16 Blood Culture - Final, Complete Staphylococcus Aureus 09/08/16 Urine Culture - Final, Complete 09/09/16 Wound Culture - Final, Complete Staphylococcus Aureus 09/09/16 Anaerobic Culture - Final, Complete Mango Tao Sep 17, 2016 10:19
[2016-09-17 14:00] VITALS: BP 136/61
[2016-09-17] MEDS: [UNRECOGNIZED DRUG - REMARK] XX SCH (15:09)
[2016-09-17] MEDS: ACETAMINOPHEN TAB 650MG DOSE (2X325MG) PO PRN (20:16)
[2016-09-17 22:00] VITALS: BP 125/60
[2016-09-18] MEDS: IPRATROPIUM 0.5MG/ALBUTEROL 2.5MG INH SOL UD 3ML (DUONEB)(J7620) NEB SCH ×4 (01:00→19:50)
[2016-09-18 06:00] VITALS: BP 135/65
[2016-09-18] MEDS: ACETAMINOPHEN TAB 650MG DOSE (2X325MG) PO PRN ×2 (06:27→21:19)
[2016-09-18] MEDS: SLF 3 ML SYR IV SCH ×3 (06:28→21:18)
[2016-09-18] MEDS: CLOPIDOGREL 75 MG TAB PO SCH (06:28)
[2016-09-18] MEDS: ASPIRIN 81 MG ENTERIC TAB PO SCH (06:28)
[2016-09-18] MEDS: HumaLOG INSULIN (NovoLOG) PER UNIT SC SCH ×4 (07:30→21:18)
[2016-09-18 07:53] LABS: ALBUMIN 2.2 GM/DL (3.2-5.2); CALCIUM LEVEL 7.2 MG/DL (8.8-10.2); CREATININE FOR GFR 8.03 MG/DL (0.70-1.30); GLOMERULAR FILTRATION RATE 6.9 (>35); PHOSPHORUS LEVEL 5.7 MG/DL (2.5-4.9); POTASSIUM SERUM 3.6 MEQ/L (3.5-5.1)
[2016-09-18 08:16] LABS: MEAN CORPUSCULAR HEMOGLOBIN 33.2 pg (27.0-33.0); MEAN CORPUSCULAR HGB CONC 31.4 g/dl (32.0-36.5); MEAN CORPUSCULAR VOLUME 105.7 fl (80.0-96.0); PLATELET COUNT, AUTOMATED 206 k/mm3 (150-450); RED CELL DISTRIBUTION WIDTH 17.7 % (11.5-14.5)
[2016-09-18] MEDS: predniSONE 20 MG TAB PO SCH (08:25)
[2016-09-18 08:50] LABS: BANDS 1 % (< 11); POLYCHROMASIA 1+
[2016-09-18 08:51] LABS: ANISOCYTOSIS 2+
[2016-09-18] MEDS: BISOPROLOL FUMARATE 5 MG TAB PO SCH ×2 (09:00→21:17)
[2016-09-18] MEDS ORDERED: HEPARIN 1,000 UNITS/ML 10ML VIAL (FOR RADIOLOGY& DIALYSIS ONLY) IV ONE (10:15)
--- NOTE | 2016-09-18 10:51 | IPN ---
DATE: 09/18/2016 Mr. Rodriguez is seen this morning during hemodialysis. He is feeling better and denies any nausea, vomiting, dyspnea or chest pain. His left arm swelling has improved significantly and there is no active bleeding from the AV graft removal site. He has a tunneled right internal jugular vein catheter which is currently being used for dialysis. PHYSICAL EXAMINATION: Temperature 97 degrees Fahrenheit, heart rate 68 per minute and respiratory rate 20 per minute. Blood pressure 135/65 mmHg and oxygen saturation 94% on 2 liters oxygen. His head is atraumatic. Neck is supple and without JVD or thyroid enlargement. Dialysis catheter in right internal jugular vein is intact without any bleeding. Ears, nose and throat are unremarkable. Pupils equal and reactive to light and sclera is anicteric. His heart sounds are regular and lungs with diminished breath sounds and bibasilar crackles. Abdomen soft and nontender and without a hepatosplenomegaly. Extremities have no cyanosis or clubbing. Left arm wound is covered with dressing. His left hand swelling has improved. Neurologically he is awake, alert and oriented times three. Lower extremities have gangrenous changes due to necrotic skin on his feet. Today's labs show WBC count 13.0, hemoglobin 8.9 and hematocrit 28.5. Sodium 142 and potassium 3.6. BUN 61 and creatinine 8.0. Calcium 7.2 and phosphorus 5.7. PROBLEMS: 1. End-stage renal disease. The patient is being dialyzed today which is his regular day. He will be dialyzed for 3-1/2 hours. We are removing about 2 liters of fluid. His electrolytes are within normal range and volume status is well-compensated. We are using 4.0 mEq potassium bath due to low serum potassium of 3.6. 2. Congestive heart failure and chronic obstructive pulmonary disease (COPD). His volume status is very well maintained with hemodialysis. His COPD is also stable at present. We are removing 2 liters of fluid today. 3. Anemia. His anemia is stable and he receives Aranesp 200 mcg once a week which will be continued. 4. 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 The patient is doing well and remains on cephazolin. His infected AV graft has already been removed. 5. Hypertension. Blood pressure is very well controlled on current medications. No changes are being made. 6. Coronary artery disease. The patient remains asymptomatic and continues with aspirin, Plavix and beta sacha. MTDD
[2016-09-18 14:00] VITALS: BP 128/70
--- NOTE | 2016-09-18 15:16 | REP ---
CHEST, TWO VIEWS: HISTORY: Fever. COMPARISON: 09/08/2016 An increase in interstitial markings is present in the lungs consistent with chronic interstitial fibrosis. The cardiac silhouette is enlarged. The pulmonary vasculature is normal in appearance. A catheter is present in the superior vena cava. IMPRESSION: 1. Chronic interstitial fibrosis. 2. Cardiomegaly. Signed by Alin Luke MD 09/18/2016 03:24 P
[2016-09-18] MEDS: [UNRECOGNIZED DRUG - REMARK] XX SCH (16:00)
[2016-09-18] MEDS: ceFAZolin SOD 1 GM in D5W MINI-BAG PLUS 50 ML IV SCH (16:03)
[2016-09-18 22:00] VITALS: BP 135/61
--- NOTE | 2016-09-19 01:01 | IPNPDOC ---
Subjective Date Seen The patient was seen on 09/18/16. Subjective Chief Complaint/HPI The patient is a 81-year-old male admitted with a reason for visit of Sepsis. Events since last encounter Patient denies any complaints. Nursing reports that his wound is improving slowly. He and nursing staff feel that his L hand looks better. He states recent bowel movement. Constitutional: Denies: Fever Pulmonary: Denies: Dyspnea, Cough Cardiovascular: Denies: Chest Pain Gastrointestinal: Denies: Nausea, Vomiting, Diarrhea, Constipation Objective Physical Examination General Exam: Positive: No Acute Distress Eye Exam: Positive: Conjunctiva & lids normal, Negative: Sclera icteric ENT Exam: Positive: Mucous membr. moist/pink Chest Exam: Positive: Diminished (secondary to the extrinsic weight of his chest wall), Negative: Rales, Rhonchi, Wheezing Heart Exam: Positive: Rate Normal, Regular Rhythm, Normal S1, Normal S2, Murmurs (1/6 systolic ejection murmur) Abdomen Exam: Positive: Normal bowel sounds, Soft, Other (hyperresonant to percussion without appreciable distention; no guarding or rebound), Negative: Tenderness Extremity Exam: Positive: Edema (edema of the left arm with compression dressing on upper bicep), Other (BL feet with dry gangrene on all toes - chronic and stable.) Psych Exam: Negative: Mood NL (relatively noncooperative, por eye contact, appears depressed), Memory Intact Assessment /Plan Problems (1) Sepsis Status: Acute Problem Text: LUE AVF wound debrided by Dr. Corral on 09/09/16 - wound culture grew Staph aureus. Dr. May recommended changing his antibiotic to cefazolin which started on 09/12. (2) Acute and chronic respiratory failure with hypoxia Status: Acute Response to Treatment: Improving Problem Text: 09/18 -- On 08/19, Dr. Clark noted that the patient had been refusing his Breo, so it was discontinued. He also was noted to be satting well on room air. He has had episodes of dyspnea in the past, attributed to COPD and CH, and has been on prednisone chronically. Will obtain a CXR to further evaluate his lingering hypoxia. Sats remain stable. O2 has been successfully weaned to 1-2 L/min. (3) Cellulitis Status: Acute Problem Specific Plan: Monitor Clinically Problem Text: Erythema has improved. See Sepsis above. (4) ESRD (end stage renal disease) Status: Chronic Problem Text: Permacath placed on 09/11/16. Last received dialysis on (09/16/16). Management per Nephrology (5) Insomnia Status: Acute Problem Specific Plan: Monitor Clinically Problem Text: Insomnia is currently managed with Seroquel (6) CAD (coronary artery disease) Status: Chronic Response to Treatment: Stable Problem Text: No active sx; continue chronic medications (7) Diabetes Status: Chronic Response to Treatment: Stable Problem Text: Continue SSI (8) COPD (chronic obstructive pulmonary disease) Status: Chronic Response to Treatment: Stable Problem Text: chronically on prednisone, which we are slowly tapering back to baseline (9) Diastolic CHF Status: Chronic Problem Text: Patient currently appears clinically dry. Defer to renal further IVF replacement. 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 Wound care did not recommend any further intervention at this time. (12) Abdominal pain Status: Acute Problem Text: Patient is hyperresonant on exam, and I suspect that he has gas pains. No guarding or rebound. Eating and drinking, no nausea. -Simethicone Plan/VTE VTE Prophylaxis Ordered?: Yes (Lovenox) Plan/Urinary Catheter Reason for insertion/continuin: Critical Pt monitoring VS, [facility]O Vital Signs Date Time Temp Pulse Resp B/P (MAP) Pulse Ox O2 Delivery O2 Flow Rate FiO2 09/18/16 21:44 Nasal Cannula 2.0 09/18/16 21:17 95 135/61 09/18/16 14:00 98.1 16 92 I&O- Last 24 Hours up to 6 AM 09/19/16 06:00 Intake Total 185 ml Output Total 1500 ml Balance -1315 ml Laboratory Data 24H LABS Laboratory Tests 2 09/18/16 06:11: Bedside Glucose (Misc Panel) 126H 09/18/16 07:15: Neutrophils 85H, Band Neutrophils 1, Lymphocytes (Manual) 14L, Platelet Estimate NORMAL, Polychromasia 1+, Anisocytosis 2+, Macrocytosis 2+, Blood Urea Nitrogen 61H, Creatinine 8.03H, Sodium Level 142, Potassium Level 3.6, Chloride Level 105, Carbon Dioxide Level 25, Anion Gap 12, Glomerular Filtration Rate 6.9L, Calcium Level 7.2L, Phosphorus Level 5.7#H, Albumin 2.2L 09/18/16 12:41: Bedside Glucose (Misc Panel) 148H 09/18/16 16:41: Bedside Glucose (Misc Panel) 235H 09/18/16 21:04: Bedside Glucose (Misc Panel) 361H CBC/BMP Laboratory Tests 09/18/16 07:15 Red Blood Count 2.70 L, Mean Corpuscular Volume 105.7 H, Mean Corpuscular Hemoglobin 33.2 H, Mean Corpuscular Hemoglobin Concent 31.4 L, Red Cell Distribution Width 17.7 H, Anion Gap 12 Microbiology Microbiology 09/12/16 Blood Culture - Final, Complete NO GROWTH AFTER 5 DAYS 09/09/16 Wound Culture - Final, Complete Staphylococcus Aureus 09/09/16 Anaerobic Culture - Final, Complete JASWINDER MIRANDA DO Sep 19, 2016 01:00
[2016-09-19] MEDS: IPRATROPIUM 0.5MG/ALBUTEROL 2.5MG INH SOL UD 3ML (DUONEB)(J7620) NEB SCH ×4 (01:20→19:56)
[2016-09-19 06:00] VITALS: BP 163/58
[2016-09-19] MEDS: SLF 3 ML SYR IV SCH ×3 (06:23→21:00)
[2016-09-19] MEDS: CLOPIDOGREL 75 MG TAB PO SCH (08:05)
[2016-09-19] MEDS: ASPIRIN 81 MG ENTERIC TAB PO SCH (08:05)
[2016-09-19] MEDS: BISOPROLOL FUMARATE 5 MG TAB PO SCH ×2 (08:05→20:59)
[2016-09-19] MEDS: predniSONE 20 MG TAB PO SCH (08:05)
[2016-09-19] MEDS: HumaLOG INSULIN (NovoLOG) PER UNIT SC SCH ×4 (08:06→21:00)
[2016-09-19 08:29] LABS: ADD MORPHOLOGY? YES; BASO % 0.3 % (0.0-1.0); EOS # 0.1 K/mm3 (0.0-0.50); EOS % 0.6 % (0.0-3.0); LARGE UNSTAINED CELL # 0.2 K/mm3 (0.0-0.4); LARGE UNSTAINED CELL % 1.2 % (0.0-4.0); LYMPH # 1.8 K/mm3 (1.5-4.5); MEAN CORPUSCULAR HEMOGLOBIN 33.6 pg (27.0-33.0); MEAN CORPUSCULAR VOLUME 108.3 fl (80.0-96.0); MONO # 0.6 K/mm3 (0.0-0.8); MONO % 4.6 % (0.0-5.0); NEUTROPHILS % 80.4 % (36.0-66.0); PLATELET COUNT, AUTOMATED 182 k/mm3 (150-450); RED CELL DISTRIBUTION WIDTH 17.5 % (11.5-14.5); WHITE BLOOD COUNT 12.4 K/mm3 (4.0-10.0)
[2016-09-19 09:43] LABS: ALBUMIN 2.3 GM/DL (3.2-5.2); CALCIUM LEVEL 7.9 MG/DL (8.8-10.2); CREATININE FOR GFR 5.76 MG/DL (0.70-1.30); GLOMERULAR FILTRATION RATE 10.1 (>35); PHOSPHORUS LEVEL 3.9 MG/DL (2.5-4.9); POTASSIUM SERUM 4.3 MEQ/L (3.5-5.1)
[2016-09-19 10:12] LABS: ANISOCYTOSIS 2+; POLYCHROMASIA 1+
--- NOTE | 2016-09-19 11:55 | IPNPDOC ---
Subjective Date Seen The patient was seen on 09/19/16. Subjective Chief Complaint/HPI The patient is a 81-year-old male admitted with a reason for visit of Sepsis. Events since last encounter Patient unwilling to respond to questions this morning. Constitutional: Denies: Chills, Fever, Night Sweats Pulmonary: Denies: Dyspnea, Cough Cardiovascular: Denies: Chest Pain, Palpitations, Orthopnea, Paroxysmal Noc. Dyspnea, Lt Headedness Gastrointestinal: Denies: Nausea, Vomiting, Abdominal Pain, Diarrhea, Constipation Genitourinary: Denies: Dysuria, Frequency, Incontinence, Retention Psych: Reports: Mood Normal, Denies: Depression, Memory Issues Objective Physical Examination General Exam: Positive: No Acute Distress Eye Exam: Positive: Conjunctiva & lids normal ENT Exam: Positive: Mucous membr. moist/pink Chest Exam: Positive: Diminished Heart Exam: Positive: Rate Normal, Regular Rhythm, Normal S1, Normal S2, Murmurs Abdomen Exam: Positive: Normal bowel sounds, Soft, Other Extremity Exam: Positive: Edema, Other Psych Exam: Negative: Mood NL (relatively noncooperative, poor eye contact), Memory Intact Assessment /Plan Problems (1) Sepsis Status: Acute Problem Text: 09/19/2016: 3 doses of Cefazolin received. LUE AVF wound debrided by Dr. Corral on 09/09/16 - wound culture grew Staph aureus. Dr. May recommended changing his antibiotic to cefazolin which started on 09/12. (2) Acute and chronic respiratory failure with hypoxia Status: Acute Response to Treatment: Improving Problem Text: 09/18 -- On 08/19, Dr. Clark noted that the patient had been refusing his Breo, so it was discontinued. He also was noted to be satting well on room air. He has had episodes of dyspnea in the past, attributed to COPD and CH, and has been on prednisone chronically. Will obtain a CXR to further evaluate his lingering hypoxia. Sats remain stable. O2 has been successfully weaned to 1-2 L/min. (3) Cellulitis Status: Acute Problem Specific Plan: Monitor Clinically Problem Text: Erythema has improved. See Sepsis above. (4) ESRD (end stage renal disease) Status: Chronic Problem Text: Permacath placed on 09/11/16. Last received dialysis on (09/16/16). Management per Nephrology (5) Insomnia Status: Acute Problem Specific Plan: Monitor Clinically Problem Text: Insomnia is currently managed with Seroquel (6) CAD (coronary artery disease) Status: Chronic Response to Treatment: Stable Problem Text: No active sx; continue chronic medications (7) Diabetes Status: Chronic Response to Treatment: Stable Problem Text: Continue SSI (8) COPD (chronic obstructive pulmonary disease) Status: Chronic Response to Treatment: Stable Problem Text: chronically on prednisone, which we are slowly tapering back to baseline (9) Diastolic CHF Status: Chronic Problem Text: Patient currently appears clinically dry. Defer to renal further IVF replacement. 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 Wound care did not recommend any further intervention at this time. (12) Abdominal pain Status: Acute Problem Text: Patient is hyperresonant on exam, and I suspect that he has gas pains. No guarding or rebound. Eating and drinking, no nausea. -Simethicone Plan/VTE VTE Prophylaxis Ordered?: Yes (Lovenox) Plan/Urinary Catheter Reason for insertion/continuin: Critical Pt monitoring VS, I&O, 24H, Fishbone Vital Signs/I&O Vital Signs Date Time Temp Pulse Resp B/P (MAP) Pulse Ox O2 Delivery O2 Flow Rate FiO2 09/19/16 09:00 Nasal Cannula 2.0 09/19/16 08:05 65 163/58 09/19/16 06:00 97.2 14 98 I&O- Last 24 Hours up to 6 AM 09/19/16 06:00 Intake Total 285 ml Output Total 1500 ml Balance -1215 ml Laboratory Data 24H LABS Laboratory Tests 2 09/18/16 12:41: Bedside Glucose (Misc Panel) 148H 09/18/16 16:41: Bedside Glucose (Misc Panel) 235H 09/18/16 21:04: Bedside Glucose (Misc Panel) 361H 09/19/16 05:36: Bedside Glucose (Misc Panel) 263H 09/19/16 08:15: White Blood Count 12.4H, Red Blood Count 2.78L, Hemoglobin 9.3L, Hematocrit 30.1L, Mean Corpuscular Volume 108.3H, Mean Corpuscular Hemoglobin 33.6H, Mean Corpuscular Hemoglobin Concent 31.0L, Red Cell Distribution Width 17.5H, Platelet Count 182, Neutrophils (%) (Auto) 80.4H, Lymphocytes (%) (Auto) 13.0L, Monocytes (%) (Auto) 4.6, Eosinophils (%) (Auto) 0.6, Basophils (%) (Auto) 0.3, Neutrophils # (Auto) 10.0H, Lymphocytes # (Auto) 1.8, Monocytes # (Auto) 0.6, Eosinophils # (Auto) 0.1, Basophils # (Auto) 0.0, Large Unclassified Cells % 1.2 , Large Unclassified Cells # 0.2, Platelet Estimate NORMAL, Polychromasia 1+, Anisocytosis 2+, Macrocytosis 2+, Blood Urea Nitrogen 39H, Creatinine 5.76H, Sodium Level 138, Potassium Level 4.3, Chloride Level 103, Carbon Dioxide Level 26, Anion Gap 9, Glomerular Filtration Rate 10.1L, Calcium Level 7.9L, Phosphorus Level 3.9#, Albumin 2.3L CBC/BMP Laboratory Tests 09/19/16 08:15 Red Blood Count 2.78 L, Mean Corpuscular Volume 108.3 H, Mean Corpuscular Hemoglobin 33.6 H, Mean Corpuscular Hemoglobin Concent 31.0 L, Red Cell Distribution Width 17.5 H, Neutrophils (%) (Auto) 80.4 H, Lymphocytes (%) (Auto ) 13.0 L, Monocytes (%) (Auto) 4.6, Eosinophils (%) (Auto) 0.6, Basophils (%) ( Auto) 0.3, Neutrophils # (Auto) 10.0 H, Lymphocytes # (Auto) 1.8, Monocytes # ( Auto) 0.6, Eosinophils # (Auto) 0.1, Basophils # (Auto) 0.0, Anion Gap 9 Microbiology Microbiology 09/12/16 Blood Culture - Final, Complete NO GROWTH AFTER 5 DAYS 09/09/16 Wound Culture - Final, Complete Staphylococcus Aureus 09/09/16 Anaerobic Culture - Final, Complete Ira Ham [employer] Sep 19, 2016 11:55
[2016-09-19] MEDS: ACETAMINOPHEN TAB 650MG DOSE (2X325MG) PO PRN ×2 (13:30→20:59)
[2016-09-19 14:00] VITALS: BP 129/62
[2016-09-19] MEDS: [UNRECOGNIZED DRUG - REMARK] XX SCH (15:08)
--- NOTE | 2016-09-19 17:32 | IPN ---
DATE: 09/19/2016 SUBJECTIVE: Mr. oRdriguez is seen this morning on his bedside. He is feeling well and denies any nausea, vomiting, unusual dyspnea or chest pain. He remains on oxygen chronically. He did not eat this morning as yet. He has been afebrile and remains on intravenous (IV) cephazolin. PHYSICAL EXAMINATION VITAL SIGNS: Temperature 97.2 degrees Fahrenheit, heart rate 65 per minute and respiratory rate 14 per minute. Blood pressure 163/58 mmHg and oxygen saturation 98% on two liters oxygen. HEAD/NECK: His head is atraumatic. Neck is supple and without jugular venous distention (JVD) or thyroid enlargement. Ears, nose and throat are unremarkable. CHEST: Dialysis catheter is intact on right upper chest without any signs of infection or bleeding. HEART/LUNGS: Sounds are regular and lungs with bilateral basilar crepitations. ABDOMEN: Soft and nontender. Bowel sounds are normal. EXTREMITIES: Have no cyanosis or clubbing. Left arm wound is covered with dressing. Skin necrosis on his feet is unchanged. LABORATORY DATA: Today's labs show WBC count 12.4, hemoglobin 9.3 and hematocrit 20.1. Sodium 138 and potassium 4.3. BUN 39 and creatinine 5.76. PROBLEMS: 1. End-stage renal disease. The patient is regularly dialyzed on Thursday, and Thursday schedule. He was dialyzed yesterday and next dialysis will be scheduled for tomorrow. At present, there is no indication for emergent dialysis today. 2. Anemia. His anemia is gradually improving. He remains on Aranesp which will be continued, and complete blood count (CBC) will be checked again next week. 3. Chronic hypoxemia, chronic obstructive pulmonary disease (COPD) and congestive heart failure (CHF). His volume status is well-compensated. His chronic lung disease is unchanged. The patient remains on two liters oxygen which will be continued. 4. Bacteremia with infected hemodialysis graft in left arm. The patient remains on cephazolin and graft has already been removed from his left arm. I would defer to vascular surgery for a decision about length of antibiotic therapy.
[2016-09-19 22:00] VITALS: BP 139/63
[2016-09-20] MEDS: IPRATROPIUM 0.5MG/ALBUTEROL 2.5MG INH SOL UD 3ML (DUONEB)(J7620) NEB SCH ×4 (02:00→20:40)
[2016-09-20 06:00] VITALS: BP 134/67
[2016-09-20] MEDS: CLOPIDOGREL 75 MG TAB PO SCH (06:31)
[2016-09-20] MEDS: predniSONE 20 MG TAB PO SCH (06:31)
[2016-09-20] MEDS: ASPIRIN 81 MG ENTERIC TAB PO SCH (06:31)
[2016-09-20] MEDS: SLF 3 ML SYR IV SCH ×3 (06:32→21:14)
[2016-09-20 06:52] LABS: MEAN CORPUSCULAR HEMOGLOBIN 32.7 pg (27.0-33.0); MEAN CORPUSCULAR HGB CONC 30.5 g/dl (32.0-36.5); MEAN CORPUSCULAR VOLUME 107.3 fl (80.0-96.0); PLATELET COUNT, AUTOMATED 195 k/mm3 (150-450); RED CELL DISTRIBUTION WIDTH 17.6 % (11.5-14.5); WHITE BLOOD COUNT 11.4 K/mm3 (4.0-10.0)
[2016-09-20 07:01] LABS: ALBUMIN 2.4 GM/DL (3.2-5.2); ALBUMIN/GLOBULIN RATIO 0.73 (1.00-1.93); BILIRUBIN,TOTAL 0.4 MG/DL (0.2-1.0); CALCIUM LEVEL 7.1 MG/DL (8.8-10.2); CREATININE FOR GFR 7.28 MG/DL (0.70-1.30); GLOMERULAR FILTRATION RATE 7.7 (>35); POTASSIUM SERUM 5.1 MEQ/L (3.5-5.1); TOTAL PROTEIN 5.7 GM/DL (6.4-8.2)
[2016-09-20 07:44] LABS: ANISOCYTOSIS 1+; HYPOCHROMASIA 1+
[2016-09-20] MEDS: HumaLOG INSULIN (NovoLOG) PER UNIT SC SCH ×4 (08:10→21:00)
[2016-09-20] MEDS: BISOPROLOL FUMARATE 5 MG TAB PO SCH ×2 (08:11→21:14)
--- NOTE | 2016-09-20 10:44 | IPNPDOC ---
Subjective Date Seen The patient was seen on 09/20/16. Subjective Chief Complaint/HPI The patient is a 81-year-old male admitted with a reason for visit of Sepsis. Events since last encounter Patient denies complaints this morning. Per Dialysis nurse, Nephro ordered 1 U pRBCs after dialysis. Constitutional: Denies: Chills, Fever Pulmonary: Denies: Dyspnea Cardiovascular: Denies: Chest Pain Gastrointestinal: Denies: Nausea, Abdominal Pain Musculoskeletal: Denies: Neck Pain, Back Pain Objective Physical Examination General Exam: Positive: No Acute Distress Eye Exam: Positive: Conjunctiva & lids normal ENT Exam: Positive: Mucous membr. moist/pink Chest Exam: Positive: Clear to auscultation, Diminished (poor cooperation with exam), Negative: Rales, Rhonchi, Wheezing Heart Exam: Positive: Rate Normal, Regular Rhythm, Normal S1, Normal S2, Murmurs Abdomen Exam: Positive: Normal bowel sounds, Soft, Other Extremity Exam: Positive: Edema, Other (bandage in place on left upper arm; permacath on right upper chest is c/d/i) Psych Exam: Negative: Mood NL (relatively noncooperative, poor eye contact), Memory Intact, Oriented x 3 (oriented to person but not place, date, or situation) Assessment /Plan Problems (1) Sepsis Status: Acute Problem Text: Patient is receiving cefazolin three times weekly after dialysis. Antibiotics were initiated on 09/09/16; he was initially on vancomycin and was transitioned to IV cefazolin on 09/12/16; I will d/w Dr. Corral whether antibiotics need to be continued. LUE AVF wound debrided by Dr. Corral on 09/09/16 - wound culture grew Staph aureus. (2) Acute and chronic respiratory failure with hypoxia Status: Acute Response to Treatment: Improving Problem Text: On 08/19, Dr. Clark noted that the patient had been refusing his Breo, so it was discontinued. He also was noted to be satting well on room air. He has had episodes of dyspnea in the past, attributed to COPD and CHF, and has been on prednisone chronically. CXR on 09/18 showed chronic interstitial fibrosis. Sats have been >90% on 2L of O2 in the last 24 hours; I asked his nurse to attempt to wean O2 today with a goal O2 sat of 88 - 92%. (3) Cellulitis Status: Acute Problem Specific Plan: Monitor Clinically Problem Text: Erythema has improved. See Sepsis above. (4) ESRD (end stage renal disease) Status: Chronic Problem Text: Permacath placed on 09/11/16. Receiving dialysis today (09/20/16). Management per Nephrology (5) Insomnia Status: Acute Problem Specific Plan: Monitor Clinically Problem Text: Insomnia is currently managed with Seroquel (6) CAD (coronary artery disease) Status: Chronic Response to Treatment: Stable Problem Text: No active sx; continue chronic medications (7) Diabetes Status: Chronic Response to Treatment: Stable Problem Text: Continue SSI (8) COPD (chronic obstructive pulmonary disease) Status: Chronic Response to Treatment: Stable Problem Text: Chronically on prednisone 10 mg daily, which we have been slowly tapering back to baseline of 5 mg daily. (9) Diastolic CHF Status: Chronic Problem Text: Patient currently appears clinically dry. Defer to renal further IVF replacement. 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 Wound care did not recommend any further intervention at this time. (12) Abdominal pain Status: Resolved Problem Text: Patient denies pain today. Continue simethicone as needed. (13) Anemia in chronic kidney disease Status: Chronic Response to Treatment: Stable Problem Text: Dr. Bonilla ordered 1U pRBCs on 09/20/16. Continue Aranesp. Plan/VTE VTE Prophylaxis Ordered?: Yes (Lovenox) Plan/Urinary Catheter Reason for insertion/continuin: Critical Pt monitoring VS, I&O, 24H, Fishbone Vital Signs/I&O Vital Signs Date Time Temp Pulse Resp B/P (MAP) Pulse Ox O2 Delivery O2 Flow Rate FiO2 09/20/16 08:49 Nasal Cannula 2.0 09/20/16 08:11 79 134/67 09/20/16 06:00 98.1 20 94 I&O- Last 24 Hours up to 6 AM 09/20/16 06:00 Intake Total 960 ml Output Total 0 ml Balance 960 ml Laboratory Data 24H LABS Laboratory Tests 2 09/19/16 11:55: Bedside Glucose (Misc Panel) 251H 09/19/16 18:00: Bedside Glucose (Misc Panel) 169H 09/19/16 20:55: Bedside Glucose (Misc Panel) 277H 09/20/16 06:29: Neutrophils 85H, Lymphocytes (Manual) 11L, Monocytes (Manual) 2, Myelocytes 1H, Atypical Lymphocytes 1, Platelet Estimate NORMAL, Hypochromasia 1+, Anisocytosis 1+, Macrocytosis 2+, Anion Gap 10, Glomerular Filtration Rate 7.7L , Blood Urea Nitrogen 50H, Creatinine 7.28H, Sodium Level 139, Potassium Level 5.1, Chloride Level 103, Carbon Dioxide Level 26, Calcium Level 7.1L, Aspartate Amino Transf (AST/SGOT) 23, Alanine Aminotransferase (ALT/SGPT) 11L, Alkaline Phosphatase 56, Total Bilirubin 0.4, Total Protein 5.7L, Albumin 2.4L, Albumin/ Globulin Ratio 0.73L CBC/BMP Laboratory Tests 09/20/16 06:29 Red Blood Count 2.71 L, Mean Corpuscular Volume 107.3 H, Mean Corpuscular Hemoglobin 32.7, Mean Corpuscular Hemoglobin Concent 30.5 L, Red Cell Distribution Width 17.6 H, Calcium Level 7.1 L, Aspartate Amino Transf (AST/SGOT ) 23, Alanine Aminotransferase (ALT/SGPT) 11 L, Alkaline Phosphatase 56, Total Bilirubin 0.4, Total Protein 5.7 L, Albumin 2.4 L Microbiology Microbiology 09/12/16 Blood Culture - Final, Complete NO GROWTH AFTER 5 DAYS MELCHOR SPENCE MD Sep 20, 2016 10:44
[2016-09-20] MEDS ORDERED: HEPARIN 1,000 UNITS/ML 10ML VIAL (FOR RADIOLOGY& DIALYSIS ONLY) IV ONE (11:00)
[2016-09-20] MEDS ORDERED: ceFAZolin SOD 1 GM in D5W MINI-BAG PLUS 50 ML IV SCH (11:30)
--- NOTE | 2016-09-20 13:24 | IPN ---
DATE: 09/20/2016 SUBJECTIVE: The patient was seen and examined at the bedside today morning getting hemodialysis. The patient was tolerating the hemodialysis procedure well. REVIEW OF SYSTEMS: The patient denies any fever or chills, rigors, headache, nausea, vomiting, chest pain, shortness of breath. He does report decreased appetite. The rest of the review of systems is negative. OBJECTIVE: Vital signs: Temperature is 98.1 degrees Fahrenheit, blood pressure is 134/67, pulse is 79, respiratory rate of 18, saturating 94% on nasal cannula. Intake and Output: Urine output is not recorded. Bed scale weight done today is 88.7 kg. PHYSICAL EXAMINATION: GENERAL: The patient is awake, alert, oriented times two, laying in bed. No apparent distress. HEAD AND NECK: Extraocular muscles intact. Pupils equally round and reactive to light. Mucous membranes are moist. Neck is supple. There is no jugular venous distention (JVD). CARDIOVASCULAR: S1, S2, regular rate. No murmur, rub, or gallop. RESPIRATORY: Chest is clear to auscultation bilaterally. Bilateral equal air entry. No rales or rhonchi. ABDOMEN: Soft. Positive bowel sounds. Nontender. No ascites. No organomegaly. EXTREMITIES: No clubbing or cyanosis. The patient has 1+ edema of the bilateral lower extremities. He has dry gangrene of multiple toes. The patient has a dressing on the left upper arm surgical site. AV ACCESS: The patient has a right IJ tunneled hemodialysis catheter which is being used for dialysis at this time. LABORATORY REVIEW: CBC showed a WBC of 11.4, hemoglobin 8.9, platelets of 195. BMP showed sodium 139, potassium 5.1, chloride 103, bicarbonate 26, BUN 50, creatinine 7.2, calcium 7.1, albumin 2.4. CURRENT MEDICATIONS: Current inpatient medications are all reviewed by me. He continues to get tapering dose of prednisone. Cefazolin has been stopped now. A new dose of 1 gram IV with hemodialysis has been ordered for 7 more days. There is no other change in the medications today as compared with yesterday. ASSESSMENT: 81-year-old male with past medical history of end-stage renal disease on hemodialysis, diabetes mellitus type 2, peripheral vascular disease, admitted at this time because of sepsis secondary to Staphylococcus aureus bacteremia and the source was left upper arm AV graft status post debridement of the left upper arm AV graft. The patient gets dialysis through the right IJ tunneled catheter right now. PLAN: 1. End-stage renal disease on hemodialysis. The patient's dialysis regimen during inpatient stay is Thursday, , Thursday. He is being dialyzed according to his regular schedule. We shall try to do an ultra filtration of about 2 as tolerated by his pressure. 2. Recent Staphylococcus aureus bacteremia and left upper arm AV graft infection. The patient was initially on vancomyin. Infectious disease (ID) recommended cefazolin for methicillin sensitive Staphylococcus aureus. Continue cefazolin 1 gram IV with hemodialysis. 3. Acute blood loss anemia. The patient's hemoglobin was staying around 9 for the last many days. He continues to be on IV Aranesp. I am going to give the patient another unit of packed red blood cells (PRBC) transfusion today. 4. Chronic steroid dependence. The patient is getting a tapering dose of prednisone. Blood pressure is stable. Currently he is on prednisone 10 mg by mouth daily. 5. Peripheral edema. The patient has edema of the bilateral upper and lower extremities. We shall try to do an extra ultrafiltration. The patient is very sensitive to ultra filtration as he starts dropping his blood pressure and becomes symptomatic. Continue the fluid restriction. We shall continue to challenge the dry weight at this time.
[2016-09-20] MEDS: ceFAZolin SOD 1 GM in D5W MINI-BAG PLUS 50 ML IV SCH (13:30)
[2016-09-20] MEDS: [UNRECOGNIZED DRUG - REMARK] XX SCH (13:42)
[2016-09-20 14:00] VITALS: BP 149/66
[2016-09-20] MEDS: SIMETHICONE 80 MG CHEW TAB PO PRN (15:37)
[2016-09-20 22:00] VITALS: BP 166/77
[2016-09-21] MEDS: IPRATROPIUM 0.5MG/ALBUTEROL 2.5MG INH SOL UD 3ML (DUONEB)(J7620) NEB SCH ×4 (01:39→22:19)
[2016-09-21 06:00] VITALS: BP 163/77
[2016-09-21] MEDS: SLF 3 ML SYR IV SCH ×3 (06:00→21:52)
[2016-09-21 07:32] LABS: ALBUMIN 2.4 GM/DL (3.2-5.2); ALBUMIN/GLOBULIN RATIO 0.62 (1.00-1.93); BILIRUBIN,TOTAL 0.5 MG/DL (0.2-1.0); CALCIUM LEVEL 7.1 MG/DL (8.8-10.2); CREATININE FOR GFR 5.12 MG/DL (0.70-1.30); GLOMERULAR FILTRATION RATE 11.6 (>35); POTASSIUM SERUM 4.3 MEQ/L (3.5-5.1); TOTAL PROTEIN 6.3 GM/DL (6.4-8.2)
[2016-09-21 08:22] LABS: BASO % 0.1 % (0.0-1.0); EOS # 0.1 K/mm3 (0.0-0.50); LARGE UNSTAINED CELL # 0.1 K/mm3 (0.0-0.4); LARGE UNSTAINED CELL % 1.2 % (0.0-4.0); LYMPH # 1.6 K/mm3 (1.5-4.5); LYMPH % 13.6 % (24.0-44.0); MEAN CORPUSCULAR HEMOGLOBIN 33.2 pg (27.0-33.0); MEAN CORPUSCULAR HGB CONC 32.2 g/dl (32.0-36.5); MEAN CORPUSCULAR VOLUME 102.9 fl (80.0-96.0); MONO # 0.5 K/mm3 (0.0-0.8); MONO % 4.7 % (0.0-5.0); NEUTROPHILS # 8.4 K/mm3 (1.8-7.7); NEUTROPHILS % 79.4 % (36.0-66.0); PLATELET COUNT, AUTOMATED 163 k/mm3 (150-450); RED CELL DISTRIBUTION WIDTH 18.3 % (11.5-14.5); WHITE BLOOD COUNT 10.5 K/mm3 (4.0-10.0)
[2016-09-21] MEDS: HumaLOG INSULIN (NovoLOG) PER UNIT SC SCH ×4 (08:55→21:52)
[2016-09-21] MEDS: BISOPROLOL FUMARATE 5 MG TAB PO SCH ×2 (08:55→21:52)
[2016-09-21] MEDS: predniSONE 10 MG TAB PO SCH (08:55)
[2016-09-21] MEDS: CLOPIDOGREL 75 MG TAB PO SCH (08:55)
[2016-09-21] MEDS: ASPIRIN 81 MG ENTERIC TAB PO SCH (08:55)
--- NOTE | 2016-09-21 10:04 | IPNPDOC ---
Subjective Date Seen The patient was seen on 09/21/16. Subjective Chief Complaint/HPI The patient is a 81-year-old male admitted with a reason for visit of Sepsis. Events since last encounter Patient denies any complaints this morning. Per his nurse, O2 was weaned yesterday and then his O2 sat decreased to 85 %, so he was maintained on 1 L/ min overnight. Constitutional: Denies: Chills, Fever ENT: Denies: Head Aches Pulmonary: Denies: Dyspnea Cardiovascular: Denies: Chest Pain Gastrointestinal: Denies: Nausea, Vomiting, Abdominal Pain Objective Physical Examination General Exam: Positive: No Acute Distress Eye Exam: Positive: Conjunctiva & lids normal ENT Exam: Positive: Mucous membr. moist/pink Chest Exam: Positive: Clear to auscultation, Diminished (poor cooperation with exam), Negative: Rales, Rhonchi, Wheezing Heart Exam: Positive: Rate Normal, Regular Rhythm, Normal S1, Normal S2, Murmurs Abdomen Exam: Positive: Normal bowel sounds, Soft Extremity Exam: Positive: Edema, Other (bandage in place on left upper arm; permacath on right upper chest is c/d/i) Skin Exam: Positive: Rash (mild purplish discoloration on left lower leg that is not warm or tender; chronic black eschars on bilateral toes) Psych Exam: Negative: Memory Intact, Oriented x 3 (oriented to person but not place, date, or situation) Assessment /Plan Problems (1) Sepsis Status: Acute Problem Text: Patient is receiving cefazolin three times weekly after dialysis. Antibiotics were initiated on 09/09/16; he was initially on vancomycin and was transitioned to IV cefazolin on 09/12/16; we will need to d/w Dr. Corral and/or Dr. May to determine appropriate length of treatment. Next dose of cefazolin is due after dialysis on 09/23/16. LUE AVF wound debrided by Dr. Corral on 09/09/16 - wound culture grew Staph aureus. (2) Acute and chronic respiratory failure with hypoxia Status: Acute Response to Treatment: Improving Problem Text: On 08/19, Dr. Clark noted that the patient had been refusing his Breo, so it was discontinued. He also was noted to be satting well on room air at that time. He has had episodes of dyspnea in the past, attributed to COPD and CHF, and has been on prednisone chronically. CXR on 09/18 showed chronic interstitial fibrosis. O2 sats >90% on 1 L/min overnight; will attempt to wean again today. V/Q scan was ordered this past Thursday but was not done prior to the weekend; if he is able to be successfully maintained on room air today and tonight, we may want to cancel this scan. (3) Cellulitis Status: Acute Problem Specific Plan: Monitor Clinically Problem Text: Erythema has improved. See Sepsis above. (4) ESRD (end stage renal disease) Status: Chronic Problem Text: Permacath placed on 09/11/16. Receiving dialysis , , Thu. Management per Nephrology (5) Insomnia Status: Acute Problem Specific Plan: Monitor Clinically Problem Text: Insomnia is currently managed with Seroquel (6) CAD (coronary artery disease) Status: Chronic Response to Treatment: Stable Problem Text: No active sx; continue chronic medications (7) Diabetes Status: Chronic Response to Treatment: Stable Problem Text: Continue SSI (8) COPD (chronic obstructive pulmonary disease) Status: Chronic Response to Treatment: Stable Problem Text: Chronically on prednisone 10 mg daily, which we have been slowly tapering back to baseline of 5 mg daily. (9) Diastolic CHF Status: Chronic Problem Text: Patient currently appears clinically dry. Defer to renal further IVF replacement. 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 Wound care did not recommend any further intervention at this time. (12) Abdominal pain Status: Resolved Problem Text: Patient denies pain today. Continue simethicone as needed. (13) Anemia in chronic kidney disease Status: Chronic Response to Treatment: Stable Problem Text: H/H improved today. Received 1U pRBCs on 09/20/16 per nephrology. Continue Aranesp. Plan/VTE VTE Prophylaxis Ordered?: Yes (Lovenox) Plan/Urinary Catheter Reason for insertion/continuin: Critical Pt monitoring VS, I&O, 24H, Fishbone Vital Signs/I&O Vital Signs Date Time Temp Pulse Resp B/P (MAP) Pulse Ox O2 Delivery O2 Flow Rate FiO2 09/21/16 09:49 93 Room Air 09/21/16 08:55 74 163/77 09/21/16 06:00 98.4 20 1.0 I&O- Last 24 Hours up to 6 AM 09/21/16 06:00 Intake Total 890 ml Output Total 2500 ml Balance -1610 ml Laboratory Data 24H LABS Laboratory Tests 2 09/20/16 13:15: Bedside Glucose (Misc Panel) 187H 09/20/16 16:29: Bedside Glucose (Misc Panel) 220H 09/20/16 20:23: Bedside Glucose (Misc Panel) 197H 09/21/16 06:40: Anion Gap 13, Glomerular Filtration Rate 11.6L, Blood Urea Nitrogen 27H, Creatinine 5.12H, Sodium Level 136, Potassium Level 4.3, Chloride Level 102, Carbon Dioxide Level 21, Calcium Level 7.1L, Aspartate Amino Transf (AST/SGOT) 26, Alanine Aminotransferase (ALT/SGPT) 7L, Alkaline Phosphatase 61, Total Bilirubin 0.5, Total Protein 6.3L, Albumin 2.4L, Albumin/Globulin Ratio 0.62L 09/21/16 08:13: White Blood Count 10.5H, Red Blood Count 3.27L, Hemoglobin 10.8L, Hematocrit 33.6L, Mean Corpuscular Volume 102.9H, Mean Corpuscular Hemoglobin 33.2H, Mean Corpuscular Hemoglobin Concent 32.2, Red Cell Distribution Width 18.3H, Platelet Count 163, Neutrophils (%) (Auto) 79.4H, Lymphocytes (%) (Auto) 13.6L, Monocytes (%) (Auto) 4.7, Eosinophils (%) (Auto) 1.0, Basophils (%) (Auto) 0.1, Neutrophils # (Auto) 8.4H, Lymphocytes # (Auto) 1.6, Monocytes # (Auto) 0.5, Eosinophils # (Auto) 0.1, Basophils # (Auto) 0.0, Large Unclassified Cells % 1.2 , Large Unclassified Cells # 0.1 CBC/BMP Laboratory Tests 09/21/16 06:40 Calcium Level 7.1 L, Aspartate Amino Transf (AST/SGOT) 26, Alanine Aminotransferase (ALT/SGPT) 7 L, Alkaline Phosphatase 61, Total Bilirubin 0.5, Total Protein 6.3 L, Albumin 2.4 L 09/21/16 08:13 Red Blood Count 3.27 L, Mean Corpuscular Volume 102.9 H, Mean Corpuscular Hemoglobin 33.2 H, Mean Corpuscular Hemoglobin Concent 32.2, Red Cell Distribution Width 18.3 H, Neutrophils (%) (Auto) 79.4 H, Lymphocytes (%) (Auto ) 13.6 L, Monocytes (%) (Auto) 4.7, Eosinophils (%) (Auto) 1.0, Basophils (%) ( Auto) 0.1, Neutrophils # (Auto) 8.4 H, Lymphocytes # (Auto) 1.6, Monocytes # ( Auto) 0.5, Eosinophils # (Auto) 0.1, Basophils # (Auto) 0.0 Microbiology Microbiology 09/12/16 Blood Culture - Final, Complete NO GROWTH AFTER 5 DAYS MELCHOR SPENCE MD Sep 21, 2016 10:04
[2016-09-21] MEDS: amLODIPine 5 MG TAB PO SCH (12:22)
--- NOTE | 2016-09-21 13:26 | IPN ---
DATE: 09/21/2016 SUBJECTIVE: The patient was seen and examined at the bedside today in the morning. He was sitting on the sofa. He feels much better. The patient tolerated the hemodialysis procedure well yesterday. He was given a unit of packed red blood cells (PRBC) transfusion as well. Hemoglobin is improved to 10.8 today. REVIEW OF SYSTEMS: The patient denies any fever or chills, rigors, headache, nausea, vomiting, chest pain, shortness of breath. He denies any pain in abdomen, constipation, or diarrhea. The rest of the review of systems is negative. OBJECTIVE: Vital Signs: Temperature is 98.4 degrees Fahrenheit, blood pressure is 163/77, pulse is 74, respiratory rate of 18, saturating 93% on room air. Intake and Output: Urine output is not recorded. Ultra filtration with hemodialysis was 2.5 liters yesterday. Weight on the bed scale is 88.5 kg. PHYSICAL EXAMINATION: GENERAL: The patient is awake, alert, oriented times three, sitting on the sofa in no apparent distress. HEAD AND NECK: Extraocular muscles intact. Pupils equally round and reactive to light. Mucous membranes are moist. Neck is supple. There is no jugular venous distention (JVD). CARDIOVASCULAR: S1, S2, regular rate. No murmur, rub, or gallop. RESPIRATORY: Chest is clear to auscultation bilaterally. Bilateral equal air entry. No rales or rhonchi. ABDOMEN: Soft. Positive bowel sounds. Nontender. No ascites. No organomegaly. EXTREMITIES: No clubbing or cyanosis. The patient has 1+ pitting edema of the bilateral lower extremities. He has dry gangrene of multiple toes. He has a dressing on the left upper arm surgical site. AV ACCESS: The patient has a right IJ tunneled hemodialysis catheter which is used for dialysis now. Left upper arm AV graft has been debrided and ligated at this time. CENTRAL NERVOUS SYSTEM: No focal neurological deficit. Power is 5/5 in bilateral upper extremities. LABORATORY REVIEW: CBC showed a WBC of 10.5, hemoglobin 10.8, platelets of 163. BMP showed sodium 136, potassium 4.3, chloride 102, bicarbonate 21, BUN 27, creatinine 5.1, calcium 7.1, albumin 2.4. CURRENT MEDICATIONS: Patient's medications are all reviewed by me. I have started the patient on amlodipine 5 mg by mouth daily starting from today. There is no other change in the medications today as compared with yesterday. ASSESSMENT: 81-year-old male with past medical history of end-stage renal disease on hemodialysis, diabetes mellitus type 2, peripheral vascular disease, admitted at this time because of sepsis secondary to Staphylococcus aureus bacteremia because of left upper arm AV graft infection status post debridement of the AV graft. The patient is currently on IV antibiotics. He is dialysis dependent, he gets dialyzed through the right IJ tunneled hemodialysis catheter. PLAN: 1. End stage renal disease on hemodialysis. The patient's regular outpatient schedule is Thursday, Thursday and Thursday, but his schedule during this hospitalization is Thursday, and Thursday. He was dialyzed yesterday. He tolerated the procedure well. Next hemodialysis will be on Thursday if the patient stays here. 2. Left upper arm AV graft infection and Staphylococcus aureus bacteremia. The patient is currently on IV cefazolin every hemodialysis as recommended by infectious disease. Patient will need at least two weeks of IV antibiotics. 3. Acute blood loss anemia. The patient has end stage renal disease and he recently got surgery. His hemoglobin was staying low. Continue IV Aranesp once a week with hemodialysis. Patient was given one unit of PRBC transfusion. Hemoglobin has nicely increased to 10.8 now. Continue to monitor for now. 4. Hypertension. The patient's blood pressure is elevated. His home dose of amlodipine was stopped on admission because of sepsis. I have restarted the patient on amlodipine 5 mg by mouth daily. 5. Peripheral edema. The patient was aggressively hydrated on admission because of sepsis. I am doing extra hemodialysis ultra filtration to improve the fluid status. The patient is otherwise asymptomatic and he is not short of breath at this time. 6. Discharge planning. It is okay to discharge the patient from nephrology standpoint back to the long term. His left upper arm AV graft can be managed as outpatient by vascular surgery.
[2016-09-21] MEDS: [UNRECOGNIZED DRUG - REMARK] XX SCH (13:44)
[2016-09-21 14:00] VITALS: BP 142/63
[2016-09-21] MEDS: SIMETHICONE 80 MG CHEW TAB PO PRN (17:38)
[2016-09-21 22:00] VITALS: BP 159/76
[2016-09-22] MEDS: SLF 3 ML SYR IV SCH (00:01)
[2016-09-22] MEDS: IPRATROPIUM 0.5MG/ALBUTEROL 2.5MG INH SOL UD 3ML (DUONEB)(J7620) NEB SCH ×2 (02:00→07:14)
[2016-09-22] MEDS ORDERED: CEFA1INJ5 IV (07:23)
[2016-09-22] MEDS: HumaLOG INSULIN (NovoLOG) PER UNIT SC SCH (07:30)
[2016-09-22] MEDS: ASPIRIN 81 MG ENTERIC TAB PO SCH (08:32)
[2016-09-22] MEDS: predniSONE 10 MG TAB PO SCH (08:32)
[2016-09-22] MEDS: BISOPROLOL FUMARATE 5 MG TAB PO SCH (08:33)
[2016-09-22] MEDS: CLOPIDOGREL 75 MG TAB PO SCH (08:33)
[2016-09-22 08:34] VITALS: BP 169/79
[2016-09-22] MEDS: amLODIPine 5 MG TAB PO SCH (08:34)
--- NOTE | 2016-09-22 10:19 | DSES ---
DATE OF ADMISSION: 09/08/2016 DATE OF DISCHARGE: ATTENDING PHYSICIAN: Hari Nolan MD PRIMARY CARE PROVIDER: Volodymyr Clark MD VASCULAR SURGEON: Jorje Corral MD NUT TIGHTENER: Jayesh Bonilla MD CONSULTATIONS: 1. Nephrology 2. Dr. Corral, vascular surgery PROCEDURES: The patient did undergo debridement of left infected brachial artery to axillary vein arterial venous graft, ligation of proximal and distal limbs at the left brachial artery to axillary vein arterial venous graft, removal of infection portion of left brachial artery to axillary vein arterial venous graft. HISTORY OF PRESENT ILLNESS: This is an 81-year-old male resident of [facility] who was brought in to the emergency room via ambulance due to a significantly elevated temperature as high as 107 and being found unresponsive by staff. Workup in the emergency room proved findings concerning for sepsis with leukocytosis, a white blood cell count of 14,000. The patient also had some significant hyperkalemia and fevers. He was subsequently admitted. HOSPITAL COURSE: The patient's blood cultures did come back negative. His wound culture for his AV fistula graft site did show positive for heavy growth of Staphylococcus aureus, for which the patient was placed on cefazolin 1 gram intravenous (IV) every dialysis day. The patient was aggressively hydrated secondary to his sepsis diagnosis. In return, the patient developed a significant amount of fluid, both in his bilateral lower extremities, as well as his upper extremity, including his left arm and hand. Nephrology continue to follow the patient and managed fluid volume status, including fluid restriction of 1500 mL and dialyzing the patient routinely. The patient was dialyzed while in the hospital on Thursday, , Thursday and seemed to tolerate that well. The patient did require oxygen for a significant amount of his hospitalization. However, was weaned off approximately 3 days ago and has done well on room air. The patient has continued to improve and is deemed appropriate to return to [facility] today. The patient will resume his Thursday, Thursday, Thursday hemodialysis dosing as of today. IMAGING: Completed includes chest x-ray on day of admission, which showed chronic changes with possible superimposed atelectasis. Head CT was obtained and showed no changes. Chest CT obtained showed bibasilar fibroatelectatic changes and small consolidations, left greater than right, and chronic changes, including moderate emphysematous disease. Repeat chest x-ray on 09/18/2016 showed chronic interstitial fibrosis and cardiomegaly. No infiltrates appreciated at that time. On physical examination today, blood pressure 159/76, heart rate 67 and regular, respiratory rate 20, oxygen saturation 95% room air. General: The patient is resting comfortably in bed. Respirations are easy and unlabored. He is cooperative with examination this morning. HEENT: Neck is supple without lymphadenopathy. Cardiovascular: Heart rate and rhythm are regular. Pulmonary: Lungs are clear with some diminishing bibasilar. Abdomen: Is soft and nontender with positive bowel sounds times all four quadrants. Bilateral lower extremities are with trace edema. Left upper extremity continued to show some swelling of the left hand. There is a dressing over the left AV fistula. Neurologic: The patient is alert and oriented. Psychiatric: Affect is significantly flat and constricted. However, the patient is cooperative with examination today. DISCHARGE DIAGNOSES: 1. Sepsis secondary to infected AV fistula graft. 2. End-stage renal disease, on hemodialysis. 3. Acute on chronic respiratory failure with hypoxia. 4. Cellulitis, left upper extremity. SECONDARY DIAGNOSES: Include: 1. Coronary artery disease. 2. Diabetes. 3. Chronic obstructive pulmonary disease (COPD). 4. Diastolic heart failure. 5. Peripheral vascular disease. 6. Gangrene of the feet. 7. Anemia on chronic kidney disease. PLAN: The patient will be discharged back to [facility]. Diet is consistent-carbohydrate renal diet. Activity is may return to previous activity at [facility]. Followups include with his primary, Dr. Clark, at [facility], as well as Dr. Bonilla and Dr. Bass at nephrology, and Dr. Corral, vascular surgeon. MEDICATIONS: Are as follows: The patient is to receive: - cefazolin 1 gram IV times one today at hemodialysis - acetaminophen 325 mg tablets, two by mouth every 4 hours as needed for pain - acetaminophen 325 mg tablets, two per rectum every 4 hours as needed for pain or fever - hydrocodone 5/325 one tablet by mouth every 4 hours as needed for pain - albuterol sulfate 2.5 mg per 3 mL nebulizer, 2.5 mg inhalation every 6 hours as needed for dyspnea - DuoNeb every 6 hours as needed for shortness of breath - amlodipine 5 mg tablet by mouth daily - aspirin 81 mg by mouth daily - atorvastatin 20 mg by mouth nightly - bisacodyl 10 mg suppository per rectum daily as needed constipation - calcium acetate 667 mg by mouth three times a day - Plavix 75 mg by mouth daily - Colace 100 mg capsules, two by mouth twice a day - enema daily as needed bowel care or constipation - vitamin D 50,000 international units one by mouth monthly - Uloric 40 mg by mouth daily - gabapentin 300 mg by mouth twice a day - insulin 100 units per mL sliding scale as previous sliding scale as [facility] - milk of magnesia 1200 mg per 15 mL - the patient may take 30 mL by mouth daily as needed constipation - multivitamin one daily - nitroglycerin 0.4 mg tablet sublingual every 5 minutes as needed chest pain - Protonix 40 mg tablet by mouth daily - MiraLAX 17 grams by mouth daily - prednisone 5 mg by mouth daily - Ambien 5 mg by mouth nightly as needed insomnia Held medications include: - metoprolol 50 mg by mouth twice a day (and this is secondary to the patient's significant bradycardia and hypotension on admission - may be resumed per primary care provider) The patient is discharged in stable satisfactory condition with no further questions at time of discharge.
--- NOTE | 2016-09-22 13:09 | IPN ---
DATE OF SERVICE: 09/22/2016 SUBJECTIVE: The patient was seen and examined at the bedside today in the morning. He was laying in the bed. In no apparent distress. The patient feels much better. He is getting ready to go to the detention today. Today is the patient's regular day of dialysis. REVIEW OF SYSTEMS: The patient denies any fever, chills, rigors, headache, nausea, vomiting, chest pain, shortness of breath. He reports that his appetite is low. The rest of the review of systems is negative. OBJECTIVE: VITAL SIGNS: Temperature is 98.3 degrees Fahrenheit, blood pressure is 169/74, pulse is 50, respiratory rate of 18, saturating 96% on room air. INTAKE AND OUTPUT: Urine output is not recorded. Weight on the bed scale is not available today. PHYSICAL EXAMINATION: GENERAL: The patient is awake, alert, oriented times three, laying in bed, in no apparent distress. HEAD AND NECK EXAMINATION: Extraocular muscles intact. Pupils equally round and reactive to light. Mucous membranes are moist. Neck is supple. There is no jugular venous distention (JVD). CARDIOVASCULAR: S1, S2, regular rate. No murmur, rub, and gallop. RESPIRATORY: Chest is clear to auscultation bilaterally. Bilateral equal air entry. No rales or rhonchi. ABDOMEN: Soft. Positive bowel sounds. Nontender. No ascites. No organomegaly. EXTREMITIES: No clubbing or cyanosis. The patient has trace edema of the bilateral lower extremities, and lower extremities are slightly tender to palpation. He has dry gangrene at the multiple toes. The patient has a dressing on the left upper arm, previous AV graft site. AV ACCESS: The patient has a right internal jugular (vein) (IJ) tunneled hemodialysis catheter, which is used for dialysis, and left upper arm AV fistula was debrided and ligated, and currently has a dressing on. CENTRAL NERVOUS SYSTEM: No focal neurological deficit. LABORATORY REVIEW: CBC showed a WBC of 10.5, hemoglobin is 10.8, and these laboratories are from yesterday. Today's BMP is not available. CURRENT MEDICATIONS: The patient's current medications were all reviewed by me. There is no change in the medications today as compared with yesterday, and the patient is currently on cefazolin 1 gram intravenous (IV) with hemodialysis. ASSESSMENT: An 81-year-old male with past medical history of end-stage renal disease on hemodialysis, diabetes mellitus type 2, peripheral vascular disease, admitted this time because of sepsis secondary to Staphylococcus aureus bacteremia, and the source was left upper arm AV graft, which was debrided and ligated. PLAN: 1. End-stage renal disease, on hemodialysis. The patient's regular dialysis days are Thursday, Thursday, and Thursday. The patient is being discharged to detention today. He will be dialyzed according to his outpatient schedule today in the afternoon. 2. Left upper arm AV graft infection and Staphylococcus aureus bacteremia. The patient's repeat cultures are negative. He is currently on IV cefazolin. The patient will get IV cefazolin 1 gram with hemodialysis up until 09/26/2016. I have already called the dialysis center and informed them to arrange for antibiotics after each dialysis session. 3. Blood loss anemia. The patient's hemoglobin has improved to 10.8. Continue the outpatient anemia protocol. 4. Hypertension. The patient was restarted on home dose of amlodipine 5 mg by mouth daily. Continue current dose. If needed, the dose will be adjusted as outpatient. DISCHARGE PLANNING: It is okay to discharge the patient from nephrology standpoint. He is being discharged back to the detention. He will be dialyzed as outpatient according to his Thursday, Thursday, Thursday schedule. The plan of care was discussed with the medical team.
[2016-09-24] MEDS ORDERED: predniSONE 5 MG TAB PO SCH (09:00)
--- NOTE | 2016-10-02 11:30 | RO ---
DATE OF PROCEDURE: 09/11/2016 PREPROCEDURE DIAGNOSES: End stage renal disease, infected arteriovenous access. POSTPROCEDURE DIAGNOSES: End stage renal disease, infected arteriovenous access. SURGEON: Juan A Corral MD GOLF COURSE LABORER: ANESTHESIA: PROCEDURE: Ultrasound and fluoroscopic guided right internal jugular vein PermaCath placement with a 19 cm tipped cuff PermaCath. INDICATION: The patient is an 81-year-old male who presented with an infected arteriovenous access that required ligation and removal of the infected portion of the graft in the left arm. The patient now requires access for hemodialysis and will undergo placement of a PermaCath. Risks, benefits and alternative treatment options were discussed with the patient. Alternative treatment options included, but were not limited to, no intervention. Risks included, but were not limited to infection, bleeding, pneumothorax, hemothorax, possible need for open surgical intervention, cerebrovascular accident, myocardial infarction, pulmonary embolus, deep vein thrombosis (DVT), loss of limb, loss of life, and poor outcome. The patient understands and accepts these risks and consents to proceed. ANESTHESIA: Local. ESTIMATED BLOOD LOSS: Minimal. IV FLUIDS: 100 mL. COMPLICATIONS: None. DRAINS: None. SPECIMENS: None. IMPLANTS: Right internal jugular vein 19 cm tipped cuff PermaCath. DESCRIPTION OF PROCEDURE: The patient was taken to the angiography suite and placed supine on the angiography room table and prepped and draped in a standard surgical fashion. After a time-out was completed confirming the correct patient and procedure. The right internal jugular vein was evaluated with ultrasound and noted to be easily compressed but widely patent and free of thrombus. Right internal jugular vein was then cannulated using ultrasound guidance with a micropuncture needle, after anesthetizing the overlying skin with 1% lidocaine. The micropuncture wire was advanced through the micropuncture needle, which was upsized to a micropuncture sheath. An Amplatz wire was advanced through the micropuncture sheath, which was then used to sequentially dilate the right internal jugular vein. A 19 cm tipped cuff catheter had been brought through the right chest and brought out at the puncture wound at its right internal jugular vein entry site. The catheter was advanced through the introducer sheath, which was then removed. The catheter was positioned with the tip in the superior vena cava right atrial junction. Both ports were aspirated and noted to aspirate easily and then flushed with heparinized saline. The catheter was secured to the anterior chest wall using #2-0 Prolene suture after anesthetizing the overlying skin with 1% lidocaine. The puncture wound in the right neck was closed using a #4-0 Vicryl suture. Dressings were applied. The patient tolerated the procedure well. All instrument, sponge, and needle counts were correct at the end of the case. There were no complications. Dr. Corral was present for and directed the entire case. The patient was transferred to the holding area and subsequently to the floor in stable condition. The right internal jugular vein PermaCath is stable for use for hemodialysis access. RADIOLOGIC SUPERVISION AND INTERPRETATION: The ultrasound showed the right internal jugular vein to be widely patent, easily compressed, and free of thrombus. The cannulation of the right internal jugular vein was performed under ultrasound guidance and fluoroscopic guidance was used to sequentially dilate and place the catheter. Final fluoroscopic image showed the catheter to be in good position and good alignment with no pneumothorax or hemothorax noted. The catheter was stable for use for hemodialysis access.
== END 2016-09-22 09:50 | DRG 252 ==
LOC: EDBD 01:44 → M ED 03:22 → M ED INP 05:09 → M ICU 06:01 → M PCU 09-10 14:58 → M MS5PR 09-13 18:13
PROVIDERS: ADMIT Internal Medicine; ATTEND Family Medicine
PROC: 5A1D60Z (ICD-10-PCS; 2016-09-08)
PROC: 03B80ZZ Excision of Left Brachial Artery, Open Approach (ICD-10-PCS; 2016-09-09)
PROC: 03P Upper Arteries, Removal (ICD-10-PCS; principal; 2016-09-09 10:47)
PROC: 30253N1 (ICD-10-PCS; 2016-09-11)
PROC: 05HM33Z Insertion of Infusion Device into Right Internal Jugular Vein, Percutaneous Approach (ICD-10-PCS; 2016-09-11)
DX: T82.7XXA Infection and inflammatory reaction due to other cardiac and vascular devices, implants and grafts, initial encounter (principal); N18.6 End stage renal disease; J96.21 Acute and chronic respiratory failure with hypoxia; A41.01 Sepsis due to Methicillin susceptible Staphylococcus aureus; R65.20 Severe sepsis without septic shock; E43 Unspecified severe protein-calorie malnutrition; I50.32 Chronic diastolic (congestive) heart failure; E11.52 Type 2 diabetes mellitus with diabetic peripheral angiopathy with gangrene; I13.2 Hypertensive heart and chronic kidney disease with heart failure and with stage 5 chronic kidney disease, or end stage renal disease; L03.116 Cellulitis of left lower limb; D62 Acute posthemorrhagic anemia; Z66 Do not resuscitate; R50.9 Fever, unspecified; J44.9 Chronic obstructive pulmonary disease, unspecified; I25.10 Atherosclerotic heart disease of native coronary artery without angina pectoris; R13.10 Dysphagia, unspecified; M1A.30X0 Chronic gout due to renal impairment, unspecified site, without tophus (tophi); D63.1 Anemia in chronic kidney disease; E78.5 Hyperlipidemia, unspecified; E66.9 Obesity, unspecified; G47.00 Insomnia, unspecified; J84.10 Pulmonary fibrosis, unspecified; Z79.891 Long term (current) use of opiate analgesic; Z79.82 Long term (current) use of aspirin; Z79.02 Long term (current) use of antithrombotics/antiplatelets; Z79.4 Long term (current) use of insulin; Z79.84 Long term (current) use of oral hypoglycemic drugs; Z79.52 Long term (current) use of systemic steroids; Z79.899 Other long term (current) drug therapy; Z99.2 Dependence on renal dialysis; Z98.62 Peripheral vascular angioplasty status; Y83.1 Surgical operation with implant of artificial internal device as the cause of abnormal reaction of the patient, or of later complication, without mention of misadventure at the time of the procedure; Z68.34 Body mass index [BMI] 34.0-34.9, adult

== ENCOUNTER 2016-10-08 10:20 | Inpatient (IN) | payer MEDICARE, MEDICAID ==
[~2016-10-08] VITALS: Ht 157.5 cm; Wt 88.0 kg
[~2016-10-08 10:20] MED LIST changes: -ACET-654 PR; +ACET1TAB17 PR; +ALBU83IN INH; +CALC1CAP PO; +CEFA1INJ5 IV; -DOCU100C PO; +DOCU100C16 PO; +DULC10SU2 PR; +ENEMENE6 PR; +GABA-282 PO; +INSUH10VL SC; +IPRASOL4 INH; +METO25TA4 PO; -METO25TAB PO; -METO50TA2 PO; +METO50TA7 PO; +MILKSUS PO; -MUCI600T34 PO; +MUCI600T37 PO; +MULT1TAB18 PO; +NITR0.4S14 SL; +TIMO0.5S29 OU; -TIMO5OPD OU; +VITA1CAP40 PO; -VITA50003 PO; +ZOLP5TAB PO
[2016-10-08] MEDS ORDERED: INSULADS SQ (10:47)
--- NOTE | 2016-10-08 11:12 | REP ---
Clinical: Sepsis. Shock. Comparison: 09/18/2016 . Findings: The mediastinum and cardiac silhouette are stable and within normal limits for portable technique. Double-lumen central venous catheter in SVC. Lung scott demonstrate chronic-appearing changes. Subtle left upper lobe opacity cannot be excluded and requires correlation/follow-up. No obvious effusion. No pneumothorax. Impression: Cannot exclude early left upper lobe infiltrate. Signed by Ramesh Mc MD 10/08/2016 11:04 A
[2016-10-08 11:14] LABS: ABG BASE EXCESS 3.3 (-2.0-2.0); ABG HCO3 28.8 MEQ/L (22.0-26.0); ABG PARTIAL PRESSURE CO2 48.3 mmHg (35.0-45.0); ABG PARTIAL PRESSURE O2 72.9 mmHg (75.0-100.0); ABG STANDARD HCO3 27.3 MEQ/L (22.0-26.0); ABG TOTAL CO2 30.3 MEQ/L (23.0-31.0); ABG pH (ARTERIAL) 7.393 UNITS (7.350-7.450)
[2016-10-08 11:18] LABS: INR 1.11
[2016-10-08 11:24] LABS: ALBUMIN 2.2 GM/DL (3.2-5.2); ALBUMIN/GLOBULIN RATIO 0.47 (1.00-1.93); BILIRUBIN,DIRECT 0.1 MG/DL (0.0-0.2); BILIRUBIN,TOTAL 0.3 MG/DL (0.2-1.0); CALCIUM LEVEL 8.6 MG/DL (8.8-10.2); CREATININE FOR GFR 6.05 MG/DL (0.70-1.30); GLOMERULAR FILTRATION RATE 9.6 (>35); TOTAL PROTEIN 6.9 GM/DL (6.4-8.2)
[2016-10-08 11:27] LABS: BASO # 0.1 K/mm3 (0.0-0.2); BASO % 1.6 % (0.0-1.0); EOS # 0.1 K/mm3 (0.0-0.50); EOS % 2.2 % (0.0-3.0); LARGE UNSTAINED CELL # 0.3 K/mm3 (0.0-0.4); LARGE UNSTAINED CELL % 3.8 % (0.0-4.0); LYMPH # 0.6 K/mm3 (1.5-4.5); LYMPH % 8.9 % (24.0-44.0); MEAN CORPUSCULAR HGB CONC 30.9 g/dl (32.0-36.5); MEAN CORPUSCULAR VOLUME 103.9 fl (80.0-96.0); MONO # 0.5 K/mm3 (0.0-0.8); MONO % 7.4 % (0.0-5.0); NEUTROPHILS % 76.1 % (36.0-66.0); PLATELET COUNT, AUTOMATED 321 k/mm3 (150-450); RED CELL DISTRIBUTION WIDTH 14.5 % (11.5-14.5); WHITE BLOOD COUNT 6.6 K/mm3 (4.0-10.0)
--- NOTE | 2016-10-08 11:40 | REP ---
Clinical: Left lower extremity swelling . Technique: Stone scale and color Doppler evaluation using linear high frequency transducer. Findings: Ultrasound examination of the left lower extremity deep venous structures from the common femoral vein to the popliteal vein demonstrates normal compressibility flow and wave patterns in response to respiration and augmentation. There is no evidence for deep venous thrombosis. Impression: No evidence for deep venous thrombosis. Signed by Ramesh Mc MD 10/08/2016 11:31 A
[2016-10-08 11:43] LABS: POTASSIUM SERUM 5.2 MEQ/L (3.5-5.1)
[2016-10-08] MEDS ORDERED: AMBI5TAB PO (13:23)
[2016-10-08] MEDS ORDERED: ACEP650S PR (13:23)
[2016-10-08] MEDS ORDERED: AMLO5TAB2 PO (13:23)
[2016-10-08] MEDS ORDERED: DEXTROSE 50% 50 ML SYRINGE IV PRN (14:00)
[2016-10-08] MEDS ORDERED: IPRATROPIUM 0.5MG/ALBUTEROL 2.5MG INH SOL UD 3ML (DUONEB)(J7620) NEB PRN (14:00)
[2016-10-08] MEDS ORDERED: ALBUTEROL SULFATE 2.5 MG/0.5 ML INH NEB SOLN INH PRN (16:15)
[2016-10-08] MEDS ORDERED: BISACODYL 10 MG SUPP PR PRN (16:15)
[2016-10-08] MEDS ORDERED: NITROGLYCERIN 0.4 MG SUBL TABLET SL PRN (16:15)
[2016-10-08] MEDS ORDERED: IPRATROPIUM 0.5MG/ALBUTEROL 2.5MG INH SOL UD 3ML (DUONEB)(J7620) INH PRN (16:15)
[2016-10-08] MEDS ORDERED: FLEET ENEMA PR PRN (16:15)
[2016-10-08] MEDS ORDERED: zolPIDEM TARTRATE 5 MG TAB PO PRN (16:15)
[2016-10-08] MEDS ORDERED: ACETAMINOPHEN TAB 650MG DOSE (2X325MG) PO PRN (16:15)
[2016-10-08] MEDS ORDERED: MOM 30ML SUSPENSION UDC PO PRN (16:15)
[2016-10-08] MEDS ORDERED: ASPI81CH PO (16:43)
[2016-10-08] MEDS ORDERED: NORC1TAB4 PO (16:43)
[2016-10-08 16:50] VITALS: BP 158/86
[2016-10-08] MEDS: ASPIRIN 81 MG ENTERIC TAB PO SCH (18:35)
[2016-10-08] MEDS: HumaLOG INSULIN (NovoLOG) PER UNIT SC SCH ×2 (18:35→20:28)
[2016-10-08] MEDS: CALCIUM ACETATE 667 MG GELCAP PO SCH (18:35)
[2016-10-08] MEDS: IPRATROPIUM 0.5MG/ALBUTEROL 2.5MG INH SOL UD 3ML (DUONEB)(J7620) NEB SCH (19:31)
[2016-10-08] MEDS ORDERED: ceFAZolin SOD 1 GM in D5W MINI-BAG PLUS 50 ML IV SCH (20:00)
[2016-10-08 20:15] VITALS: BP 162/88
[2016-10-08] MEDS: GABAPENTIN 300 MG CAP PO SCH (20:28)
[2016-10-08] MEDS: DOCUSATE SODIUM 100 MG CAP PO SCH (20:28)
[2016-10-08] MEDS: ATORVASTATIN 20 MG TAB PO SCH (20:28)
[2016-10-08] MEDS: HEPARIN SOD (PORCINE) 5000 UNITS/ML VIAL SC SCH (20:28)
[2016-10-08] MEDS: ACETAMINOPHEN TAB 650MG DOSE (2X325MG) PO PRN (21:01)
[2016-10-08] MEDS ORDERED: LABETALOL HCL 100 MG/20 ML VIAL IV STA (21:06)
[2016-10-08] MEDS ORDERED: IPRATROPIUM 0.02% SOLN 0.5MG/2.5 ML NEB NEB ONE (21:15)
[2016-10-08 21:20] VITALS: BP 148/82
[2016-10-08] MEDS ORDERED: VANCOMYCIN 1000 MG/20 ML VIAL (J3370) IP ONE (22:00)
[2016-10-08] MEDS ORDERED: VANCOMYCIN HCL 1,000 MG, VIAL MATE ADAPTER 1 EACH in D5W 250 ML IV ONE (23:15)
[2016-10-08] MEDS ORDERED: VANCOMYCIN INTERMITTENT/PULSE DOSING BY CLINICAL PHARMACIST PER DOSING PROTOCOL XX SCH (23:45)
[2016-10-09] VITALS (8 sets, daily range): BP systolic 129–145; BP diastolic 63–77; O2SAT 95
[2016-10-09] MEDS: IPRATROPIUM 0.5MG/ALBUTEROL 2.5MG INH SOL UD 3ML (DUONEB)(J7620) NEB SCH ×4 (01:17→20:26)
[2016-10-09 02:08] LABS: CALCIUM LEVEL 8.2 MG/DL (8.8-10.2); CREATININE FOR GFR 6.92 MG/DL (0.70-1.30); GLOMERULAR FILTRATION RATE 8.2 (>35)
[2016-10-09 02:12] LABS: POTASSIUM SERUM 5.9 MEQ/L (3.5-5.1)
[2016-10-09] MEDS: CEFTAROLINE FOSAMIL 200 MG in D5W 50 ML IV SCH ×2 (02:54→13:52)
[2016-10-09 05:14] LABS: BASO # 0.1 K/mm3 (0.0-0.2); BASO % 0.9 % (0.0-1.0); EOS # 0.2 K/mm3 (0.0-0.50); EOS % 2.1 % (0.0-3.0); LARGE UNSTAINED CELL # 0.2 K/mm3 (0.0-0.4); LARGE UNSTAINED CELL % 2.6 % (0.0-4.0); LYMPH # 1.1 K/mm3 (1.5-4.5); LYMPH % 11.6 % (24.0-44.0); MEAN CORPUSCULAR HEMOGLOBIN 31.4 pg (27.0-33.0); MEAN CORPUSCULAR HGB CONC 30.2 g/dl (32.0-36.5); MEAN CORPUSCULAR VOLUME 103.9 fl (80.0-96.0); MONO # 0.5 K/mm3 (0.0-0.8); MONO % 7.2 % (0.0-5.0); NEUTROPHILS # 5.6 K/mm3 (1.8-7.7); NEUTROPHILS % 75.6 % (36.0-66.0); PLATELET COUNT, AUTOMATED 294 k/mm3 (150-450); RED CELL DISTRIBUTION WIDTH 14.8 % (11.5-14.5); WHITE BLOOD COUNT 7.4 K/mm3 (4.0-10.0)
[2016-10-09] MEDS: HEPARIN SOD (PORCINE) 5000 UNITS/ML VIAL SC SCH ×3 (06:28→21:58)
--- NOTE | 2016-10-09 06:39 | HPE ---
DATE OF ADMISSION: 10/08/2016 CHIEF COMPLAINT: Fever. PRIMARY CARE PROVIDER: Unknown. HISTORY OF PRESENT ILLNESS: 81-year-old male who [facility] who was sent to be evaluated for fever episode. The patient has had multiple recent admissions and has many medical problems with comorbidities. He is on hemodialysis. He had a new right sided chest catheter insertion placed earlier in the month. He does have history of bilateral venous stasis and some diabetic foot ulcer. Also, multiple infected toes with eschars on both big toes. The third toe on the right has a dry gangrene. The patient is lethargic, easily arousable and currently unable to give much history to aid in his care. He however reported some fatigue. REVIEW OF SYSTEMS: Unable to obtain at this time. PAST MEDICAL HISTORY (Includes): 1. End stage renal disease on hemodialysis. Last dialysis was yesterday as outpatient. 2. History of hypertension. 3. Peripheral vascular disease. 4. 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 5. Dry gangrene at multiple toes. 6. Chronic obstructive pulmonary disease (COPD). 7. Coronary artery disease (CAD). 8. Diastolic chronic congestive heart failure. 9. Hyperlipidemia. 10. Insulin dependent diabetes mellitus. 11. Gout. 12. Neuropathy. PAST SURGICAL HISTORY: As mentioned above. The patient also does have a fistula in the left arm. FAMILY HISTORY: Unable to obtain. SOCIAL HISTORY: He is a nonsmoker. He does not drink alcohol or abuse drugs. He is a resident of [facility]. ALLERGIES TO MEDICATIONS: None listed. MEDICATIONS: - Tylenol 650 mg every 4 hours for fever - Linwood 1 tablet every 4 hours as needed for pain - albuterol sulfate 2.5 mg inhaled at bedtime for dyspnea - Norvasc 5 mg once a day - aspirin 81 mg once daily - Lipitor 20 mg at bedtime - Dulcolax 10 mg per rectum as needed for constipation - Plavix 75 mg once a day - docusate sodium 200 mg by mouth daily - vitamin D 50,000 units once a month - enema as needed for constipation - Uloric 40 mg once a day - gabapentin 300 mg twice daily - sliding scale insulin - metoprolol 50 mg twice daily - milk of magnesia as needed - multivitamin 1 tablet daily - sublingual nitroglycerin as needed for chest pain - Protonix 40 mg once a day - prednisone 5 mg by mouth daily - MiraLAX 17 grams by mouth daily - Ambien as needed for insomnia PHYSICAL EXAMINATION: VITALS: Blood pressure 167/84. Pulse 102. Respiratory rate 18. Oxygen saturation 92%. Temperature 97.7 degrees. GENERAL: The patient is awake, lethargic, but arousable. Somewhat follows commands with persistence. Appears comfortable, but generally weak. HEENT: Pupils equal, round and reactive to light. Extraocular muscles intact. Anicteric sclerae. Mucous membranes dry. CARDIOVASCULAR SYSTEM: S1, S2 present with regular rate. RESPIRATORY SYSTEM: Decreased breath sounds at the bases. GI: Abdomen soft, nontender, nondistended. Bowel sounds are normal. MUSCULOSKELETAL SYSTEM: Trace pedal edema left leg from ankle to the mid soliz is red and swollen. Both legs and feet are tender to palpation. Both calves are also tender to palpation. SKIN: The patient has multiple lesions. On the left toe, he has an eschar on the big toe. The third toe has the beginning of some gangrenous process. The right toe has similar findings, the big toe also has eschar. The third toe is gangrenous. On the left hand, the patient has a blister that is dark in color and big. He also has multiple ecchymoses and bruises on both arms. He has a fistula in the left arm with bruit. The skin is mostly dry. NEUROLOGIC: He does have decreased sensation in both legs and feet. LABS: Hematology: White blood cell count 6.6, hemoglobin 10, hematocrit 32, MCV 104, platelets 321. Coagulopathy unremarkable. Chemistry: Sodium 137, potassium 5.2, chloride 100, bicarbonate 32, BUN 27, creatinine 6.05, glucose 146, GFR 9.6, lactic acid 0.9, calcium 8.6. Liver function tests (LFTs) within normal limits. Troponin I 0.04. CRP 17.10. Albumin 2.2. Amylase 67. IMAGING STUDIES: Chest x-ray: Cannot exclude early left upper lobe infiltrate. Venous ultrasound duplex of both legs ruled out deep vein thrombosis (DVT). Electrocardiogram (EKG) sinus tachycardia, rate at 109 beats per minute with frequent ventricular premature complexes. ASSESSMENT: 81[facility] with multiple recent admissions and multiple chronic medical problems presenting with fever, tachycardia, swelling and redness of the left leg. Labs revealed elevation in creatinine and mild elevation in the potassium. IMPRESSION: 1. Fever likely secondary to cellulitis. 2. Toxic infectious encephalopathy. 3. Possible osteomyelitis. 4. Hyperkalemia. 5. End stage renal disease on hemodialysis. 6. History of insulin dependent diabetes mellitus, uncontrolled. 7. History of hypertension, uncontrolled. 8. History of chronic obstructive pulmonary disease, which is stable. 9. History of coronary artery disease/diastolic congestive heart failure, also stable. 10. History of chronic pain syndrome. 11. History of gout. PLAN: The patient will be admitted to the progressive care unit (PCU). He is a full code. Antibiotic cefazolin started. Infectious disease doctor will be consulted and so will the surgeon for possible debridement of the toes and nephrology for hemodialysis. MRI of the foot to rule out osteomyelitis ordered. His home medications were resumed and will be following up culture results. DVT prophylaxis with subcutaneous heparin.
[2016-10-09 08:39] LABS: ALBUMIN 2.2 GM/DL (3.2-5.2); ALBUMIN/GLOBULIN RATIO 0.61 (1.00-1.93); BILIRUBIN,TOTAL 0.3 MG/DL (0.2-1.0); CALCIUM LEVEL 8.4 MG/DL (8.8-10.2); CREATININE FOR GFR 7.41 MG/DL (0.70-1.30); GLOMERULAR FILTRATION RATE 7.6 (>35); TOTAL PROTEIN 5.8 GM/DL (6.4-8.2)
[2016-10-09] MEDS: HumaLOG INSULIN (NovoLOG) PER UNIT SC SCH ×4 (08:41→21:00)
[2016-10-09] MEDS: CALCIUM ACETATE 667 MG GELCAP PO SCH ×3 (08:42→17:46)
[2016-10-09 08:45] LABS: POTASSIUM SERUM 5.7 MEQ/L (3.5-5.1)
[2016-10-09] MEDS ORDERED: amLODIPine 5 MG TAB PO SCH (09:00)
[2016-10-09] MEDS: DOCUSATE SODIUM 100 MG CAP PO SCH ×2 (09:00→21:00)
[2016-10-09] MEDS ORDERED: HEPARIN 1,000 UNITS/ML 10ML VIAL (FOR RADIOLOGY& DIALYSIS ONLY) IV ONE (11:00)
[2016-10-09] MEDS: CLOPIDOGREL 75 MG TAB PO SCH (13:52)
[2016-10-09] MEDS: FEBUXOSTAT 40 MG TABLET (ULORIC) PO SCH (13:52)
[2016-10-09] MEDS: predniSONE 5 MG TAB PO SCH (13:52)
[2016-10-09] MEDS: GABAPENTIN 300 MG CAP PO SCH ×2 (13:52→21:56)
[2016-10-09] MEDS: MULTIVITAMINS/MINERALS THERAP 1 TAB PO SCH (13:52)
[2016-10-09] MEDS: PANTOPRAZOLE 40MG TAB (PROTONIX) PO SCH (13:52)
[2016-10-09] MEDS: ASPIRIN 81 MG ENTERIC TAB PO SCH (13:53)
[2016-10-09] MEDS: ACETAMINOPHEN TAB 650MG DOSE (2X325MG) PO PRN (14:08)
--- NOTE | 2016-10-09 18:22 | IPNPDOC ---
Subjective Date Seen The patient was seen on 10/09/16. Subjective Chief Complaint/HPI The patient is a 81-year-old male admitted with a reason for visit of Cellulitis , Fever, Gangrene Of Foot. Objective Physical Examination General Exam: Positive: Alert Neck Exam: Positive: Supple, Negative: JVD Chest Exam: Positive: Normal air movement Heart Exam: Positive: Regular Rhythm Telemetry: Positive: No significant arrhythmia Abdomen Exam: Positive: Normal bowel sounds, Soft, Negative: Tenderness Extremity Exam: Positive: Edema (L lower leg circumferential induration, tenderness, warmth/multiple toes c dry gangrene-most pronounced L first//L dorsal hand 2 cm grade 2/3 ulcer c circumferential induration/warmth) Assessment /Plan Problems (1) Cellulitis Status: Acute Response to Treatment: Improving Problem Text: recurrent, c probable source L first toe D2 ceftaroline/vanco 10/09 improved L lower leg cellulitis, afebrile since admission, unable to do MRI given inability to lay flat-check xrays 10/09/16 BCX P 10/08/16 BCX x NG (2) Chronic kidney disease, stage V (very severe) Status: Acute Problem Text: on chronic HD-received 10/09 2W prior R ACW CVC placed 2 removal of infected dialysis graft (3) Peripheral vascular disease Status: Chronic Problem Text: follows with Vascular in [place]-plan was to attempt repeat stenting but then developed PN-favor at least L 1st toe amputation (4) Gangrene of foot Status: Chronic (5) Sepsis Status: Acute Problem Text: favor source of L leg cellulitis (6) Hypertension Status: Chronic Response to Treatment: Stable Plan/VTE VTE Prophylaxis Ordered?: Yes VS, I&O, 24H, Fishbone Vital Signs/I&O Vital Signs Date Time Temp Pulse Resp B/P (MAP) Pulse Ox O2 Delivery O2 Flow Rate FiO2 10/09/16 16:00 98.0 115 20 143/63 (89) 97 Nasal Cannula 4.0 I&O- Last 24 Hours up to 6 AM 10/09/16 06:00 Intake Total 500 ml Output Total 200 ml Balance 300 ml Laboratory Data 24H LABS Laboratory Tests 2 10/08/16 20:17: Bedside Glucose (Misc Panel) 89 10/08/16 23:57: Urine Appearance CLEAR, Urine Color YELLOW, Urine pH 6.0, Urine Specific [place] 1.014, Urine Protein 2+H, Urine Glucose (UA) 1+H, Urine Ketones NEGATIVE , Urine Urobilinogen 0.2, Urine Bilirubin NEGATIVE, Urine Leukocyte Esterase 1+H , Urine Blood 1+H, Urine Nitrite NEGATIVE, Urine WBC (Auto) 33H, Urine RBC (Auto ) 12H, Urine Hyaline Casts (Auto) 0, Urine Bacteria (Auto) NEGATIVE, Urine Squamous Epithelial Cells 0, Urine Sperm (Auto) 10/09/16 01:37: White Blood Count 7.4, Red Blood Count 2.96L, Hemoglobin 9.3L, Hematocrit 30.8L , Mean Corpuscular Volume 103.9H, Mean Corpuscular Hemoglobin 31.4, Mean Corpuscular Hemoglobin Concent 30.2L, Red Cell Distribution Width 14.8H, Platelet Count 294, Neutrophils (%) (Auto) 75.6H, Lymphocytes (%) (Auto) 11.6L, Monocytes (%) (Auto) 7.2H, Eosinophils (%) (Auto) 2.1, Basophils (%) (Auto) 0.9 , Neutrophils # (Auto) 5.6, Lymphocytes # (Auto) 1.1L, Monocytes # (Auto) 0.5, Eosinophils # (Auto) 0.2, Basophils # (Auto) 0.1, Large Unclassified Cells % 2.6 , Large Unclassified Cells # 0.2, Anion Gap 13, Glomerular Filtration Rate 8.2L , Lactic Acid Level 0.7, Blood Urea Nitrogen 34H, Creatinine 6.92H, Sodium Level 138, Potassium Level 5.9H, Chloride Level 103, Carbon Dioxide Level 22, Calcium Level 8.2L, Ammonia 12 10/09/16 06:33: Bedside Glucose (Misc Panel) 108 10/09/16 07:51: Erythrocyte Sedimentation Rate 126H, Anion Gap 10, Glomerular Filtration Rate 7.6L, Blood Urea Nitrogen 37H, Creatinine 7.41H, Sodium Level 139, Potassium Level 5.7H, Chloride Level 102, Carbon Dioxide Level 27, Calcium Level 8.4L, Aspartate Amino Transf (AST/SGOT) 14L, Alanine Aminotransferase (ALT/SGPT) 8L, Alkaline Phosphatase 70, Total Bilirubin 0.3, Total Protein 5.8L, Albumin 2.2L, Albumin/Globulin Ratio 0.61L 10/09/16 13:55: Bedside Glucose (Misc Panel) 96 10/09/16 16:47: Bedside Glucose (Misc Panel) 310H 10/09/16 17:28: Bedside Glucose (Misc Panel) 339H CBC/BMP Laboratory Tests 10/09/16 01:37 Red Blood Count 2.96 L, Mean Corpuscular Volume 103.9 H, Mean Corpuscular Hemoglobin 31.4, Mean Corpuscular Hemoglobin Concent 30.2 L, Red Cell Distribution Width 14.8 H, Neutrophils (%) (Auto) 75.6 H, Lymphocytes (%) (Auto ) 11.6 L, Monocytes (%) (Auto) 7.2 H, Eosinophils (%) (Auto) 2.1, Basophils (%) (Auto) 0.9, Neutrophils # (Auto) 5.6, Lymphocytes # (Auto) 1.1 L, Monocytes # ( Auto) 0.5, Eosinophils # (Auto) 0.2, Basophils # (Auto) 0.1, Calcium Level 8.2 L 10/09/16 07:51 Calcium Level 8.4 L, Aspartate Amino Transf (AST/SGOT) 14 L, Alanine Aminotransferase (ALT/SGPT) 8 L, Alkaline Phosphatase 70, Total Bilirubin 0.3, Total Protein 5.8 L, Albumin 2.2 L Microbiology Microbiology 10/09/16 Blood Culture, Received Pending 10/08/16 Blood Culture - Preliminary, Resulted No growth after 24 hours . All specim... 10/08/16 Blood Culture - Preliminary, Resulted No growth after 24 hours . All specim... 10/08/16 Urine Culture, Received Pending Hari Nolan M.D. Oct 09, 2016 18:22
--- NOTE | 2016-10-09 18:44 | CR ---
DATE OF CONSULTATION: 10/09/2016 REQUESTING PHYSICIAN: Dr. Hari Nolan CONSULTING PHYSICIAN: Dr. Bonilla REASON FOR CONSULTATION: Management of end-stage renal disease and hemodialysis. CHIEF COMPLAINT: Patient was admitted overnight because of fever and cellulitis of left leg. HISTORY OF PRESENT ILLNESS: Mr. Nnamdi Rodriguez is an 81-year-old male with past medical history of end-stage renal disease, on hemodialysis, well known to nephrology service from outpatient hemodialysis and from recent multiple admissions. Multiple comorbidities as mentioned below. Patient was dialyzed 2 days ago. He presented to the emergency room last night because he was lethargic, had fevers at the care home along with chills and rigors. He also complains of left leg swelling with redness and tenderness. Patient was found to have cellulitis of the leg. He was started on ceftaroline intravenous (IV), and nephrology service was called for further help in the management of end-stage renal disease and dialysis. When I examined the patient today morning, I had already arranged his dialysis. He was dialyzed during hemodialysis procedure. Patient was in mild distress. He was having shakes and chills. I also ordered blood cultures to be done through his right internal jugular (IJ) tunneled hemodialysis catheter that was recently placed during a previous hospitalization for left upper arm arteriovenous (AV) graft infection. Currently his AV graft infection site is clean with no warmth, no tenderness, and surgical site has healed. PAST MEDICAL HISTORY: 1. Past medical history of end-stage renal disease, on hemodialysis. Last hemodialysis session was 2 days ago. 2. Hypertension. 3. Peripheral vascular disease. History of gangrene of multiple toes. 4. Chronic obstructive pulmonary disease (COPD). 5. Coronary artery disease. 6. Diastolic congestive heart failure. 7. Hyperlipidemia. 8. Insulin-dependent diabetes mellitus. 9. 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 10. Peripheral neuropathy. PAST SURGICAL HISTORY: 1. Patient recently got is left upper arm AV graft infection site debrided, and graft was ligated. 2. Status post a right IJ tunneled hemodialysis catheter. 3. Status post external iliac and celiac artery stenting. 4. Status post cardiac catheterization, which was complicated by thromboembolism and gangrene of the toes. ALLERGIES: No known drug allergies. FAMILY HISTORY: No significant family history of end-stage renal disease requiring hemodialysis. SOCIAL HISTORY: There is no history of illicit drug abuse, smoking, or alcohol abuse. Patient is a resident of [facility]. REVIEW OF SYSTEMS: CONSTITUTIONAL: Patient reports fevers, chills, and rigors. EYES: He denies any blurry vision or double vision. ENT: Patient denies any ear discharge. He does report some dysphagia. Patient was on pureed diet in the past. CARDIOVASCULAR: Patient reports history of coronary artery disease, but he denies any chest pain or palpitations. RESPIRATORY: Patient denies any shortness of breath or wheezing. GASTROINTESTINAL: Patient denies any constipation, nausea, vomiting. GENITOURINARY: Patient denies any dysuria or hematuria. MUSCULOSKELETAL: Patient reports left leg pain and swelling and reports history of gangrene of the toes in the past. PSYCHIATRIC: He denies any depression or anxiety. SKIN: Patient reports a big rash on the left leg. CENTRAL NERVOUS SYSTEM: Patient denies any strokes or seizures. All other review of systems is negative. PHYSICAL EXAMINATION: GENERAL: Patient is awake, alert, oriented times two, lying in bed in mild distress, having active chills and rigors. VITAL SIGNS: When I examined the patient his temperature was 100.4 degrees Fahrenheit. Blood pressure was 129/73, pulse 103, respiratory rate of 18, saturating 99% on nasal cannula at 5 liters per minute. Intake and output: Urine output recorded so far is 200 mL overnight. Weight in the bed scale is 96.2 kg. HEAD AND NECK: Extraocular muscles intact. Pupils equally round and reactive to light. Mucous membranes are moist. Neck is supple. There is no jugular venous distention (JVD). Patient has a right IJ tunneled hemodialysis catheter. CARDIOVASCULAR: S1, S2, regular rate. No murmur, rub, or gallop. RESPIRATORY: Chest is clear to auscultation bilaterally. There are decreased breath sounds at the bases. GASTROINTESTINAL: Abdomen is soft. Positive bowel sounds. Nontender. No ascites. No organomegaly. GENITOURINARY: No Bell catheter at this time. MUSCULOSKELETAL: Patient has large erythema and tenderness on the left leg and along the medial aspect of the left thigh as well. Patient has dry, gangrenous lesions on multiple toes. Pulses are 1+. CENTRAL NERVOUS SYSTEM: Patient is slightly obtunded. He is oriented times two. Otherwise he follows commands. LYMPH NODES: No significant cervical, axillary, or inguinal lymphadenopathy. SKIN: Multiple dry, gangrenous lesions on multiple toes and erythema of the left leg, as mentioned above. Otherwise no rashes or ulcers. AV ACCESS: Patient has a right IJ tunneled hemodialysis catheter. LABORATORY REVIEW: CBC showed a WBC 7.4, hemoglobin 9.3, platelets are 294. INR is 1.1. Urinalysis showed 2+ protein, negative nitrite, 1+ leukocyte esterase. BMP showed sodium 139, potassium 5.7, chloride 102, bicarbonate 27, BUN 37, creatinine 7.4. Lactic acid 0.7, calcium 8.4, albumin 2.2. Microbiology: Blood cultures is negative for the initial 24 hours. Urine culture is pending. Blood culture sent from the right IJ tunneled dialysis catheter is pending. IMAGING: Left lower extremity Doppler is negative for deep vein thrombosis (DVT). Chest x-ray done yesterday showed subtle left upper lobe opacity. CURRENT INPATIENT MEDICATIONS: Patient's medications were all reviewed by me. That includes: - ceftaroline 200 mg IV every 12 hours - vancomycin 1 gram IV times one dose - Tylenol as needed - [place] as needed - albuterol as needed - aspirin 81 mg daily - Lipitor 20 mg at bedtime - PhosLo one tablet by mouth three times a day with meals - Plavix 75 mg by mouth daily - Colace 100 mg by mouth twice a day - Uloric 40 mg by mouth daily - Neurontin 300 mg by mouth twice a day - heparin 5000 units subcutaneous every 8 hours - insulin sliding scale - multivitamin - Protonix 40 mg by mouth daily - prednisone 5 mg by mouth daily ASSESSMENT: An 81-year-old male with past medical history of end-stage renal disease, on hemodialysis, insulin-dependent diabetes mellitus, hypertension, coronary artery disease, admitted at this time with fever, chills, rigors, and cellulitis of the left lower extremity. PLAN: 1. End-stage renal disease, on hemodialysis. Patient was dialyzed 2 days ago. He is being dialyzed today. We shall try to do an ultrafiltration of 2 kg as tolerated by his blood pressure. 2. Hyperkalemia. Potassium is 5.7. Patient is being dialyzed against a 2K bath. Potassium is expected to improve after dialysis. 3. Cellulitis of the left leg. Patient was already given ceftaroline. He will also be given a dose of vancomycin 1 gram IV. Moreover, patient recently got his left upper arm AV graft excised, and he got a tunneled dialysis catheter placed. I have ordered the cultures to be drawn from the dialysis catheter as well. We shall followup the culture. 4. Hypertension. Blood pressure is acceptable at this time. Patient needed a dose of labetalol IV overnight. I would not start any hypertensive at this time. Blood pressure is expected to drop with hemodialysis and ultrafiltration as well. 5. 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 Continue current dose of Uloric 40 mg by mouth daily. 6. Coronary artery disease and peripheral vascular disease. Continue current dose of Plavix 75 mg daily, aspirin 81 mg by mouth daily, and Lipitor 20 mg at bedtime. 7. End-stage renal disease, mineral bone disease. Continue current dose of PhosLo one tablet by mouth three times a day with meals. 8. Diabetes mellitus, type 2. Continue insulin sliding scale as per primary team recommendations. Thank you for involving us in the care of this patient. We shall be happy to follow the patient along with you tomorrow morning.
--- NOTE | 2016-10-09 20:14 | REP ---
Clinical: Sepsis. Gangrene. Technique: AP, lateral, bilateral oblique views of the right and left foot. Findings: Diffuse heterogeneity and degenerative changes are appreciated bilaterally along with atherosclerotic changes to the vasculature and mild/moderate bilateral soft tissue swelling (left greater than right). No focal osseous abnormality. No periosteal reaction. No acute fracture or dislocation. Impression: Diffuse heterogeneity and degenerative changes. No acute fracture dislocation. No focal osseous abnormality identified and no obvious periosteal reaction. Signed by Ramesh Mc MD 10/09/2016 08:06 P
[2016-10-09] MEDS: ATORVASTATIN 20 MG TAB PO SCH (21:55)
[2016-10-10] VITALS (7 sets, daily range): BP systolic 129–158; BP diastolic 67–80; O2SAT 96
[2016-10-10] MEDS: IPRATROPIUM 0.5MG/ALBUTEROL 2.5MG INH SOL UD 3ML (DUONEB)(J7620) NEB SCH ×4 (01:08→20:20)
[2016-10-10] MEDS: ACETAMINOPHEN TAB 650MG DOSE (2X325MG) PO PRN (01:14)
[2016-10-10] MEDS: CEFTAROLINE FOSAMIL 200 MG in D5W 50 ML IV SCH ×2 (01:14→13:25)
[2016-10-10] MEDS: NORCO, ANEXSIA 5/325MG TABLET (HYDROcodone/ACETAMINOPHEN) PO PRN (03:29)
[2016-10-10 05:50] LABS: BASO # 0.1 K/mm3 (0.0-0.2); BASO % 1.1 % (0.0-1.0); EOS # 0.1 K/mm3 (0.0-0.50); EOS % 1.8 % (0.0-3.0); LARGE UNSTAINED CELL # 0.2 K/mm3 (0.0-0.4); LARGE UNSTAINED CELL % 3.8 % (0.0-4.0); LYMPH # 0.8 K/mm3 (1.5-4.5); LYMPH % 12.2 % (24.0-44.0); MEAN CORPUSCULAR HEMOGLOBIN 32.2 pg (27.0-33.0); MEAN CORPUSCULAR HGB CONC 30.6 g/dl (32.0-36.5); MEAN CORPUSCULAR VOLUME 105.2 fl (80.0-96.0); MONO # 0.5 K/mm3 (0.0-0.8); NEUTROPHILS # 4.8 K/mm3 (1.8-7.7); NEUTROPHILS % 74.1 % (36.0-66.0); PLATELET COUNT, AUTOMATED 295 k/mm3 (150-450); RED CELL DISTRIBUTION WIDTH 14.8 % (11.5-14.5); WHITE BLOOD COUNT 6.4 K/mm3 (4.0-10.0)
[2016-10-10] MEDS: HEPARIN SOD (PORCINE) 5000 UNITS/ML VIAL SC SCH ×3 (06:40→22:12)
[2016-10-10 07:09] LABS: ERYTHROCYTE SEDIMENTATION RATE 126 mm/hr (0-20)
--- NOTE | 2016-10-10 07:14 | ECGEPIP ---
Stationary ECG Study [facility] - ED Test Date: 2016-10-08 Pat Name: EVE GANN Department: Room: - Gender: M International Marketing Coordinator: maria elena : 1935 Requested By: Lauren Vernon Order Number: [id number] Reading MD: Lauren Vernon Measurements Intervals [place] Rate: 109 P: -9 WI: 140 QRS: 3 QRSD: 73 T: 51 QT: 293 QTc: 396 Interpretive Statements SINUS TACHYCARDIA WITH FREQUENT VENTRICULAR PREMATURE COMPLEXES MINIMAL ST DEPRESSION ABNORMAL RHYTHM ECG INCREASED RATE 09/03/16 Electronically Signed On 10-10-2016 7:14:07 EDT by Lauren Vernon
[2016-10-10 07:22] LABS: ALBUMIN 1.9 GM/DL (3.2-5.2); ALBUMIN/GLOBULIN RATIO 0.42 (1.00-1.93); BILIRUBIN,TOTAL 0.3 MG/DL (0.2-1.0); CALCIUM LEVEL 8.7 MG/DL (8.8-10.2); CREATININE FOR GFR 5.1 MG/DL (0.70-1.30); GLOMERULAR FILTRATION RATE 11.6 (>35); POTASSIUM SERUM 4.7 MEQ/L (3.5-5.1); TOTAL PROTEIN 6.4 GM/DL (6.4-8.2)
[2016-10-10] MEDS: HumaLOG INSULIN (NovoLOG) PER UNIT SC SCH ×4 (07:53→21:00)
[2016-10-10] MEDS: CALCIUM ACETATE 667 MG GELCAP PO SCH ×3 (08:45→17:38)
[2016-10-10] MEDS: ASPIRIN 81 MG ENTERIC TAB PO SCH (08:45)
[2016-10-10] MEDS: FEBUXOSTAT 40 MG TABLET (ULORIC) PO SCH (08:45)
[2016-10-10] MEDS: MULTIVITAMINS/MINERALS THERAP 1 TAB PO SCH (08:46)
[2016-10-10] MEDS: CLOPIDOGREL 75 MG TAB PO SCH (08:46)
[2016-10-10] MEDS: PANTOPRAZOLE 40MG TAB (PROTONIX) PO SCH (08:46)
[2016-10-10] MEDS: DOCUSATE SODIUM 100 MG CAP PO SCH ×2 (08:46→22:12)
[2016-10-10] MEDS: predniSONE 5 MG TAB PO SCH (08:46)
--- NOTE | 2016-10-10 11:11 | IPNPDOC ---
Subjective Date Seen The patient was seen on 10/10/16. Subjective Chief Complaint/HPI The patient is a 81-year-old male admitted with a reason for visit of Cellulitis , Fever, Gangrene Of Foot. Events since last encounter Pt this morning does report feeling better. Nursing without new concerns. Constitutional: Denies: Chills, Fever Pulmonary: Reports: Dyspnea, Denies: Cough Cardiovascular: Denies: Chest Pain, Palpitations Gastrointestinal: Denies: Nausea, Vomiting, Diarrhea Neurological: Reports: Weakness Psych: Reports: Mood Normal Objective Physical Examination General Exam: Positive: Alert ENT Exam: Positive: Mucous membr. moist/pink Neck Exam: Positive: Supple, Negative: JVD Chest Exam: Positive: Normal air movement Heart Exam: Positive: Regular Rhythm Telemetry: Positive: No significant arrhythmia Abdomen Exam: Positive: Normal bowel sounds, Soft, Negative: Tenderness Extremity Exam: Positive: Edema (L lower leg circumferential induration, tenderness, warmth/multiple toes c dry gangrene-most pronounced L first//L dorsal hand 2 cm grade 2/3 ulcer c circumferential induration/warmth), Other ( edema of BUE as well) Assessment /Plan Problems (1) Sepsis Status: Acute Problem Text: appreciate ID input favor source of L leg cellulitis, BUT also L hand abscess/cellulitis AND 09/11/16 removal/ligation of infected L arm AV graft (09/09/16 WCX MSSA) and placement of R IJ PermaCath-Ellis AND 09/09/16 TTE mild MR c appearance of loose chordae ("less likely to be a vegetation"); repeat TTE ordered. (2) Cellulitis Status: Acute Response to Treatment: Improving Problem Text: recurrent, c probable source L foot D3 ceftaroline/vanco 10/09 improved L lower leg cellulitis, afebrile since admission, unable to do MRI given inability to lay flat-check xrays 10/09/16 BCX P 10/08/16 BCX x NG 10/10 28!/126 10/09 CRP 17/ESR 126 (3) Chronic kidney disease, stage V (very severe) Status: Acute Problem Text: on chronic HD-received 10/0909/11/16 removal/ligation of infected L arm AV graft and placement of R IJ PermaCath-Ellis (4) Peripheral vascular disease Status: Chronic Problem Text: follows with [facility] 10/10/16 case d/w [facility] who will see this admission re ? need of L toe amputation (? source of recurrent cellulitis) 04/30/2016 celiac artery, R external iliac stent placed-[facility] (5) Gangrene of foot Status: Chronic (6) Hypertension Status: Chronic Response to Treatment: Stable Plan/VTE VTE Prophylaxis Ordered?: Yes VS, I&O, 24H, Fishbone Vital Signs/I&O Vital Signs Date Time Temp Pulse Resp B/P (MAP) Pulse Ox O2 Delivery O2 Flow Rate FiO2 10/10/16 08:06 98.0 103 18 134/68 (90) 95 Nasal Cannula 3.0 I&O- Last 24 Hours up to 6 AM 10/10/16 05:59 Intake Total 590 ml Output Total 2200 ml Balance -1610 ml Laboratory Data 24H LABS Laboratory Tests 2 10/09/16 13:55: Bedside Glucose (Misc Panel) 96 10/09/16 16:47: Bedside Glucose (Misc Panel) 310H 10/09/16 17:28: Bedside Glucose (Misc Panel) 339H 10/09/16 22:00: Bedside Glucose (Misc Panel) 116H 10/10/16 05:05: White Blood Count 6.4, Red Blood Count 2.77L, Hemoglobin 8.9L, Hematocrit 29.2L , Mean Corpuscular Volume 105.2H, Mean Corpuscular Hemoglobin 32.2, Mean Corpuscular Hemoglobin Concent 30.6L, Red Cell Distribution Width 14.8H, Platelet Count 295, Neutrophils (%) (Auto) 74.1H, Lymphocytes (%) (Auto) 12.2L, Monocytes (%) (Auto) 7.0H, Eosinophils (%) (Auto) 1.8, Basophils (%) (Auto) 1.1H , Neutrophils # (Auto) 4.8, Lymphocytes # (Auto) 0.8L, Monocytes # (Auto) 0.5, Eosinophils # (Auto) 0.1, Basophils # (Auto) 0.1, Large Unclassified Cells % 3.8 , Large Unclassified Cells # 0.2, Erythrocyte Sedimentation Rate 126H, Anion Gap 7L, Glomerular Filtration Rate 11.6L, Blood Urea Nitrogen 22H, Creatinine 5.10H, Sodium Level 138, Potassium Level 4.7, Chloride Level 106, Carbon Dioxide Level 25, Calcium Level 8.7L, Aspartate Amino Transf (AST/SGOT) 13L, Alanine Aminotransferase (ALT/SGPT) 7L, Alkaline Phosphatase 65, Total Bilirubin 0.3, Total Protein 6.4, Albumin 1.9L, C-Reactive Protein, Quantitative 28.20H, Albumin/Globulin Ratio 0.42L CBC/BMP Laboratory Tests 10/10/16 05:05 Red Blood Count 2.77 L, Mean Corpuscular Volume 105.2 H, Mean Corpuscular Hemoglobin 32.2, Mean Corpuscular Hemoglobin Concent 30.6 L, Red Cell Distribution Width 14.8 H, Neutrophils (%) (Auto) 74.1 H, Lymphocytes (%) (Auto ) 12.2 L, Monocytes (%) (Auto) 7.0 H, Eosinophils (%) (Auto) 1.8, Basophils (%) (Auto) 1.1 H, Neutrophils # (Auto) 4.8, Lymphocytes # (Auto) 0.8 L, Monocytes # (Auto) 0.5, Eosinophils # (Auto) 0.1, Basophils # (Auto) 0.1, Calcium Level 8.7 L, Aspartate Amino Transf (AST/SGOT) 13 L, Alanine Aminotransferase (ALT/SGPT) 7 L, Alkaline Phosphatase 65, Total Bilirubin 0.3, Total Protein 6.4, Albumin 1.9 L Microbiology Microbiology 10/09/16 Blood Culture - Preliminary, Resulted No growth after 24 hours . All specim... 10/08/16 Blood Culture - Preliminary, Resulted No Growth after 48 hours. All Specime... 10/08/16 Blood Culture - Preliminary, Resulted No Growth after 48 hours. All Specime... 10/08/16 Urine Culture, Received Pending ARLENE SANCHEZ PA-C Oct 10, 2016 11:11 Hari Nolan M.D. Oct 10, 2016 16:07
[2016-10-10] MEDS: GABAPENTIN 300 MG CAP PO SCH ×2 (12:24→22:12)
--- NOTE | 2016-10-10 16:46 | IPN ---
DATE: 10/10/2016 SUBJECTIVE: Mr. Rodriguez is sitting in a chair. He has no complaint. No nausea, vomiting or diarrhea. No shortness of breath. His oxygen was off and he was asleep sitting in the chair. When we woke him up, his oxygen saturation was 93% on room air. OBJECTIVE: VITAL SIGNS: Temperature is 97.4, pulse 113, respirations 18, blood pressure 156/88, HEART: Normal S1, S2. LUNGS: Few crackles at the bases bilaterally. ABDOMEN: Morbidly obese, soft, nontender. EXTREMITIES: Edema +1 pitting both extremities. He has multiple dry gangrene of the toes, first and third on both feet. He has an area of cellulitis of the left leg which has markedly decreased, Redness and warmth have diminished. There is no tenderness. He has been on ecchymotic area of the left hand with a blister that has improved as well. MICROBIOLOGY: Blood cultures are no growth after 48 hours, three sets. Urine culture is pending. LABORATORY DATA: White count is 6.4, hemoglobin 8.9, hematocrit 29.2, platelets 295. ESR 126. Sodium 138, potassium 4.7, chloride 106, bicarb 25, BUN 22, creatinine 5.1, glucose 168, calcium 8.7, bilirubin 0.3, AST 13, ALT 17, CRP 28.8. IMPRESSION: 1. 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 The patient's site is well healed. He has no recurrent bacteremia at this point. 2. Left leg cellulitis and left hand hemorrhagic blister could have been the source of infection. The patient is doing well with intravenous (IV) antibiotics. He is afebrile for the past 24 hours, normal white count. 3. Hemodialysis catheter right chest for end-stage renal disease. No evidence of bacteremia. 4. Severe peripheral vascular disease. The patient has a right external iliac stent, celiac artery stents. At this point there is no evidence of bacteremia or stent infection. PLAN: The patient can obtain echocardiogram as he has had bacteremia a month ago to make sure that there is no evidence of vegetation. An echocardiogram on 09/09 showed a possibly ruptured chorda of the mitral valve, less likely vegetation and would obtain followup echocardiogram. If blood cultures and echocardiogram are negative. I would suggest switching him to Keflex 500 mg by mouth twice a day to finish a 10-day course. Case has been discussed with Dr. Nolan.
[2016-10-10] MEDS: ATORVASTATIN 20 MG TAB PO SCH (22:12)
[2016-10-11] VITALS: BP 149/79
[2016-10-11] MEDS: ACETAMINOPHEN TAB 650MG DOSE (2X325MG) PO PRN (00:55)
[2016-10-11] MEDS: CEFTAROLINE FOSAMIL 200 MG in D5W 50 ML IV SCH ×2 (00:56→13:52)
[2016-10-11] MEDS: IPRATROPIUM 0.5MG/ALBUTEROL 2.5MG INH SOL UD 3ML (DUONEB)(J7620) NEB SCH ×4 (01:25→19:31)
[2016-10-11 04:00] VITALS: BP 152/71
[2016-10-11 05:42] LABS: MEAN CORPUSCULAR HEMOGLOBIN 32.1 pg (27.0-33.0); MEAN CORPUSCULAR HGB CONC 30.7 g/dl (32.0-36.5); MEAN CORPUSCULAR VOLUME 104.8 fl (80.0-96.0); WHITE BLOOD COUNT 6.6 K/mm3 (4.0-10.0)
[2016-10-11 05:52] LABS: ALBUMIN/GLOBULIN RATIO 0.45 (1.00-1.93); ALKALINE PHOSPHATASE 70 U/L (45-117); ALT/SGPT < 6 U/L (12-78); ANION GAP 9 MEQ/L (8-16); AST/SGOT 15 U/L (15-37); BILIRUBIN,TOTAL 0.2 MG/DL (0.2-1.0); BLOOD UREA NITROGEN 30 MG/DL (7-18); CALCIUM LEVEL 8.7 MG/DL (8.8-10.2); CARBON DIOXIDE LEVEL 27 MEQ/L (21-32); CHLORIDE LEVEL 105 MEQ/L (98-107); CREATININE FOR GFR 6.49 MG/DL (0.70-1.30); GLOMERULAR FILTRATION RATE 8.8 (>35); GLUCOSE, FASTING 103 MG/DL (83-110); POTASSIUM SERUM 4.7 MEQ/L (3.5-5.1); SODIUM LEVEL 141 MEQ/L (136-145); TOTAL PROTEIN 6.4 GM/DL (6.4-8.2)
--- NOTE | 2016-10-11 06:01 | IPN ---
DATE OF SERVICE: 10/10/2016 SUBJECTIVE: Patient was seen and examined at the bedside today in the morning. Patient denied any active complaints. He was dialyzed yesterday. He tolerated the hemodialysis procedure well. Patient is afebrile at this time and he is hemodynamically stable. REVIEW OF SYSTEMS: Patient denies any fever spikes today. He reports that his chills and rigors are a lot better. He denies any chest pain, shortness of breath, nausea and vomiting. He reports that his appetite is getting better too. He denies any pain abdomen, constipation or diarrhea. Rest of review of systems is negative. OBJECTIVE: Vital signs: Temperature is 97.4 degrees Fahrenheit. Blood pressure is 156/80. Pulse is 100. Respiratory rate of 18, saturating 94% on nasal cannula on 2 liters. Intake and output: Urine output is not recorded. Patient got hemodialysis done yesterday. Ultrafiltration was 2 liters. Weight on the bed scale is 90.5 kg. PHYSICAL EXAMINATION: General: Patient is awake, alert, oriented times two, lying in bed, no apparent distress. Head and neck exam: Extraocular muscles intact. Pupils equally round and reactive to light. Mucous membranes are moist. Neck is supple. There is no jugular venous distention (JVD). Patient has a right internal jugular (IJ) tunneled hemodialysis catheter. Cardiovascular: S1, S2, regular rate. No murmur, rub or gallop. Respiratory: Chest is clear to auscultation bilaterally. Bilateral equal air entry. No rales or rhonchi. Abdomen: Soft, positive bowel sounds, nontender. No ascites. No organomegaly. Musculoskeletal: Patient has erythema on the left leg, which is getting better. Tenderness is improving. Patient has dry gangrene of multiple toes on both sides. Central nervous system: Patient is much more awake and alert today. He is oriented times two. He is following commands. LABORATORY REVIEW: CBC showed a WBC of 6.4, hemoglobin 8.9, platelets are 295. BMP showed a sodium of 138, potassium 4.7, chloride 106, bicarbonate 25, BUN 22, creatinine 5.1, calcium 8.7. Microbiology: Blood cultures are negative so far. Urine cultures are pending. CURRENT INPATIENT MEDICATIONS: Patient's medications were all reviewed by me. He continues to be on intravenous (IV) ceftaroline. There is no other change in the medications today as compared with yesterday. ASSESSMENT: 81-year-old male with past medical history of end-stage renal disease on hemodialysis, insulin-dependent diabetes mellitus, hypertension, coronary artery disease, admitted this time with fever, chills, rigors, and cellulitis of the left lower extremity. PLAN: 1. Cellulitis of the left leg. Patient continues to be on ceftaroline. His fever spikes are better. Cultures are negative so far. The rest of the management is as per primary team. 2. End-stage renal disease on hemodialysis. Patient's regular dialysis days are Thursday, Thursday, Thursday; however, during this hospitalization he got his dialysis on . Next hemodialysis session will be done tomorrow on Thursday and after that patient will be switched back to his Thursday, Thursday, Thursday schedule starting next week. 3. Hyperkalemia. Potassium level improved with hemodialysis. Continue low potassium diet. 4. Hypertension. Blood pressure is acceptable at this time. Patient is not on any antihypertensive medications at this time because he came in with fever and sepsis. 5. Diabetes mellitus type 2. Continue insulin sliding scale.
[2016-10-11] MEDS: HEPARIN SOD (PORCINE) 5000 UNITS/ML VIAL SC SCH ×3 (06:43→21:47)
[2016-10-11] MEDS: MULTIVITAMINS/MINERALS THERAP 1 TAB PO SCH (06:43)
[2016-10-11] MEDS: PANTOPRAZOLE 40MG TAB (PROTONIX) PO SCH (06:43)
[2016-10-11] MEDS: DOCUSATE SODIUM 100 MG CAP PO SCH ×2 (06:43→21:47)
[2016-10-11] MEDS: predniSONE 5 MG TAB PO SCH (06:44)
[2016-10-11] MEDS: FEBUXOSTAT 40 MG TABLET (ULORIC) PO SCH (06:44)
[2016-10-11] MEDS: CALCIUM ACETATE 667 MG GELCAP PO SCH ×3 (06:44→17:28)
[2016-10-11] MEDS: ASPIRIN 81 MG ENTERIC TAB PO SCH (06:44)
[2016-10-11] MEDS: CLOPIDOGREL 75 MG TAB PO SCH (06:44)
[2016-10-11] MEDS: HumaLOG INSULIN (NovoLOG) PER UNIT SC SCH ×4 (07:30→21:00)
[2016-10-11 08:00] VITALS: BP 125/69
[2016-10-11] MEDS ORDERED: HEPARIN 1,000 UNITS/ML 10ML VIAL (FOR RADIOLOGY& DIALYSIS ONLY) IV ONE (10:45)
[2016-10-11] MEDS ORDERED: HEPARIN 1,000 UNITS/ML 10ML VIAL (FOR RADIOLOGY& DIALYSIS ONLY) XX ONE (10:45)
--- NOTE | 2016-10-11 11:38 | IPNPDOC ---
Subjective Date Seen The patient was seen on 10/11/16. Subjective Chief Complaint/HPI The patient is a 81-year-old male admitted with a reason for visit of Cellulitis , Fever, Gangrene Of Foot. Events since last encounter Cellulitis resolving. Patient denies any fevers or chills. Constitutional: Denies: Chills, Fever Pulmonary: Denies: Dyspnea, Cough Cardiovascular: Denies: Chest Pain Other systems 10 point review systems otherwise negative Objective Physical Examination General Exam: Positive: Alert ENT Exam: Positive: Mucous membr. moist/pink Neck Exam: Positive: Supple, Negative: JVD Chest Exam: Positive: Normal air movement Heart Exam: Positive: Regular Rhythm Telemetry: Positive: No significant arrhythmia Abdomen Exam: Positive: Normal bowel sounds, Soft, Negative: Tenderness Extremity Exam: Positive: Edema (L lower leg circumferential induration, tenderness, warmth/multiple toes c dry gangrene-most pronounced L first//L dorsal hand 2 cm grade 2/3 ulcer c circumferential induration/warmth) Assessment /Plan Problems (1) Sepsis Status: Acute Problem Text: Cellulitis resolving. ID recommended Keflex 500 twice a day if echo is negative, and blood cultures are negative. -Echo pending (2) Cellulitis Status: Acute Response to Treatment: Improving Problem Text: D4 ceftaroline/vanco. (3) Chronic kidney disease, stage V (very severe) Status: Acute Problem Text: 09/11/16 removal/ligation of infected L arm AV graft and placement of R IJ PermaCath-[facility]. On chronic HD-received 10/11 (4) Peripheral vascular disease Status: Chronic Response to Treatment: Stable Problem Text: follows with [facility]. 04/30/2016 celiac artery, R external iliac stent placed-[facility]. Case was discussed with Dr. Corral who will see this admission for poss need of L toe amputation (5) Gangrene of foot Status: Chronic Response to Treatment: Stable (6) Hypertension Status: Chronic Response to Treatment: Stable Plan/VTE VTE Prophylaxis Ordered?: Yes VS, I&O, 24H, Fishbone Vital Signs/I&O Vital Signs Date Time Temp Pulse Resp B/P (MAP) Pulse Ox O2 Delivery O2 Flow Rate FiO2 10/11/16 08:00 98.3 102 19 125/69 (87) 98 Room Air 10/11/16 07:46 2.0 I&O- Last 24 Hours up to 6 AM 10/11/16 06:00 Intake Total 650 ml Balance 650 ml Laboratory Data 24H LABS Laboratory Tests 2 10/10/16 17:30: Bedside Glucose (Misc Panel) 203H 10/10/16 20:27: Bedside Glucose (Misc Panel) 210H 10/11/16 05:22: Erythrocyte Sedimentation Rate 127H, Anion Gap 9, Glomerular Filtration Rate 8.8L, Blood Urea Nitrogen 30H, Creatinine 6.49H, Sodium Level 141, Potassium Level 4.7, Chloride Level 105, Carbon Dioxide Level 27, Calcium Level 8.7L, Aspartate Amino Transf (AST/SGOT) 15, Alanine Aminotransferase (ALT/SGPT) < 6L, Alkaline Phosphatase 70, Total Bilirubin 0.2, Total Protein 6.4, Albumin 2.0L, C -Reactive Protein, Quantitative 18.40H, Albumin/Globulin Ratio 0.45L CBC/BMP Laboratory Tests 10/11/16 05:22 Red Blood Count 2.74 L, Mean Corpuscular Volume 104.8 H, Mean Corpuscular Hemoglobin 32.1, Mean Corpuscular Hemoglobin Concent 30.7 L, Red Cell Distribution Width 15.0 H, Calcium Level 8.7 L, Aspartate Amino Transf (AST/SGOT ) 15, Alanine Aminotransferase (ALT/SGPT) < 6 L, Alkaline Phosphatase 70, Total Bilirubin 0.2, Total Protein 6.4, Albumin 2.0 L Microbiology Microbiology 10/09/16 Blood Culture - Preliminary, Resulted No Growth after 48 hours. All Specime... 10/08/16 Blood Culture - Preliminary, Resulted No Growth after 72 hours. All specime... 10/08/16 Blood Culture - Preliminary, Resulted No Growth after 72 hours. All specime... 10/08/16 Urine Culture - Final, Complete RAY FIGUEREDO MD Oct 11, 2016 11:38
[2016-10-11] MEDS: GABAPENTIN 300 MG CAP PO SCH ×2 (13:52→21:47)
--- NOTE | 2016-10-11 15:54 | IPN ---
DATE: 10/11/2016 SUBJECTIVE: Mr. Rodriguez is seen this morning on his bedside during hemodialysis. He has complained of feeling cold and shivering. He denies any nausea or vomiting. He continues to have chronic dyspnea and is using oxygen via nasal cannula. He was admitted with left leg cellulitis and has been on antibiotics. Cellulitis is already improving. PHYSICAL EXAMINATION Temperature 98.3 degrees Fahrenheit, heart rate 102 per minute and respiratory rate 20 per minute. Blood pressure 125/69 mmHg and oxygen saturation 98% on two liters oxygen. HEAD/NECK: Head is atraumatic. Neck veins are difficult to be assessed. He has a dialysis catheter in right internal jugular vein. Pupils are equal and reactive to light and sclerae are anicteric. HEART: Sounds are tachycardiac and irregular. LUNGS: Have moderate bilateral air entry. At present I do not hear any wheezing. ABDOMEN: Soft and nontender. Bowel sounds are normal and there is no palpable organomegaly. EXTREMITIES: Have no cyanosis or clubbing. His right arm is markedly swollen. Left leg cellulitis is improving. Gangrenous changes on his toes are chronic and without any signs of acute infection. NEUROLOGIC: He is seems to be awake and at his baseline mentation. LABORATORY DATA: Today's labs show WBC count 6.6, hemoglobin 8.8 and hematocrit 28.7. Sodium 141 and potassium 4.7. BUN 30 and creatinine 6.49. Calcium level is 8.7. Blood cultures are all negative so far. PROBLEMS: 1. Left leg cellulitis. Clinically improving and the patient remains on ceftaroline 200 mg every 12 hours. 2. Shivering and chills. So far his blood cultures have been negative. We will continue to monitor as the patient is already on broad-spectrum antibiotic. There is no other obvious source of infection. 3. End-stage renal disease. The patient is currently being dialyzed. We are trying to remove about 2.5 liters fluid today as tolerated. Electrolytes are within normal range. 4. 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 The patient will be treated with Aranesp once a week during hemodialysis. We will give him a dose of 300 mcg Aranesp on Thursday. 5. Diabetes. Blood sugars are reasonably well controlled. He remains on insulin coverage. [facility]
[2016-10-11 16:00] VITALS: BP 134/62
[2016-10-11 20:00] VITALS: BP 136/77
[2016-10-11] MEDS: ATORVASTATIN 20 MG TAB PO SCH (21:47)
--- NOTE | 2016-10-11 22:17 | CR ---
DATE OF CONSULTATION: 10/09/2016 I was asked to consult by Dr. Nolan for evaluation of fever in a patient who had a recent arteriovenous (AV) fistula infection with methicillin-susceptible Staphylococcus aureus (MSSA) sepsis. HISTORY OF PRESENT ILLNESS: Mr. Rodriguez is an 81-year-old resident of [facility] under the care of Dr. Clark. The patient was recently hospitalized on 09/08 with infection of his left arm AV fistula. He had erythema, purulent discharge at the site. He was taken to the operating room by Dr. Corral on 09/09, who removed a left brachial arteriovenous fistula and the patient had a hemodialysis catheter placed. The patient was treated initially with vancomycin and imipenem for 48 hours then he was switched to cefazolin 1 gram every other day with hemodialysis. He received a total of three doses on 09/13, 09/18 and 09/20. The patient then was transferred back to [facility] and had done fairly well. He was brought back for fevers and mental status changes with lethargy. The nurses were having a hard time arousing him. The patient feels better today. He slept most of the day, but this afternoon he seems to be more coherent. He does complain of some fatigue. PAST MEDICAL HISTORY: 1. End-stage renal disease on dialysis since 2010. 2. Hypertension. 3. Peripheral vascular disease status post external iliac stenting, celiac artery stenting. 4. 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 5. Chronic obstructive pulmonary disease (COPD). 6. Coronary artery disease. 7. Diastolic congestive heart failure. 8. Hyperlipidemia. 9. Insulin-dependent diabetes. 10. Peripheral vascular disease. PAST SURGICAL HISTORY 1. Stent to celiac artery and external iliac. 2. Removal of AV fistula left arm in August [address] Corral. 3. Hemodialysis catheter, multiple placements. FAMILY HISTORY: Nonrevealing. SOCIAL HISTORY: He is a nonsmoker. He does not drink or use alcohol. He is a resident of [facility]. ALLERGIES: No known drug allergies. MEDICATIONS: - Plavix 75 mg by mouth daily - Uloric 40 mg by mouth daily - multivitamin one tablet by mouth daily - Protonix 40 mg by mouth daily - prednisone 5 mg by mouth daily - ceftaroline 200 mg intravenous (IV) every 12 hours - vancomycin on 10/08, the patient received one dose - insulin sliding scale - Lipitor 20 mg by mouth nightly - Colace 100 mg by mouth daily - Neurontin 300 mg by mouth twice a day - albuterol/Atrovent nebulizers - cefazolin one dose was given on 10/08 - calcium with meals - Tylenol as needed - [place] one tablet by mouth every four as needed - Fleet enema as needed - aspirin 81 mg by mouth daily LABORATORY DATA: White count was 6.6 on admission, today was 7.4, hemoglobin 9.3, hematocrit 30.8, platelets 294, 75% neutrophils, 11% lymphocytes, 7% monocytes. ESR was 126. Sodium 139, potassium 5.7, chloride 102, bicarbonate 27, BUN 37, creatinine 7.4, glucose 103, calcium 8.4, total bilirubin 0.3, AST 14, ALT 8, alkaline phosphatase 70, total protein 5, albumin 2.2. PH 7.39, pCO2 48, pO2 73, oxygen saturation 93% on room air. PT 14.4, INR 1.11. Urinalysis had +1 leukocyte esterase, 33 white cells, 12 red cells. Microbiology: Blood cultures two sets are no growth after 24 hours. Urine culture is pending. Repeat blood culture on 10/09 from hemodialysis catheter is pending. PHYSICAL EXAMINATION: Vital signs: Temperature was 101.7 yesterday. Today he is afebrile with a maximum temperature (T-max) of 99.2, pulse 103, respirations 20, blood pressure 139/72, oxygen saturation 98% on 4 liters nasal cannula. Heart: Normal S1, S2 with no murmurs, rubs or gallops. Lungs: Clear. No wheezes, rales or rhonchi, but decreased at the lower base. Abdomen: Soft, nontender. No visceromegaly. Extremities: He has a large nodular area on the right soliz. He has multiple bruises on both feet. He has dry gangrene of the first and third toes on both feet. He has very poor peripheral pulses. His left leg has an area of erythema just below the knee to the ankle, which he states he always has that area of erythema which seems to get worse during hospitalizations. Neurologic exam: He is alert, oriented to place and time and moves extremities, follows commands. Skin: Multiple ecchymosis, dry gangrene of the toes, no rashes. The patient has a left AV fistula scar that is well-healed. He has a bleeding site on the left upper extremity. He has a right hemodialysis catheter IJ tunneled. IMPRESSION: This is an 81-year-old gentleman with end-stage renal disease on hemodialysis currently through a right internal jugular (IJ) hemodialysis catheter, who recently had an arteriovenous (AV) fistula infection with methicillin-susceptible Staphylococcus aureus (MSSA) status post removal and bacteremia. The patient is admitted with recurrent fever within 2 weeks of previous discharge. Makes it concerning for possible metastatic complications of MSSA sepsis versus just cellulitis of his left leg. The patient has an elevated erythrocyte sedimentation rate (ESR) and therefore should monitor that for possible endocarditis. He has an echocardiogram done on 09/09, which showed a loose leaflet or loose cordae on the valve. Will obtain followup echocardiogram. He is currently on appropriate antibiotic coverage with ceftaroline for possible cellulitis. He has already received a dose of cefazolin and vancomycin as well. PLAN: Continue for now ceftaroline. Blood cultures have been negative. Could probably switch him to vancomycin, which would be easier for him to receive with hemodialysis. Obtain echocardiogram. Will continue to monitor culture results. [facility]
--- NOTE | 2016-10-11 23:10 | REPUSA ---
Clinical statement: Pain, swelling. Findings: Venous Doppler imaging of the right upper extremity was performed. The internal jugular vei n compresses normally and demonstrates normal color Doppler flow. Normal venous wave forms are seen w ithin the subclavian vein. The axillary, brachial, and basilic veins compress normally and demonstrat e normal color Doppler flow. Normal augmentation is seen. Impression: No evidence of deep vein thrombosis in the right upper extremity.
[2016-10-11 23:59] VITALS: BP 133/68
[2016-10-12] MEDS: CEFTAROLINE FOSAMIL 200 MG in D5W 50 ML IV SCH ×2 (01:30→14:09)
[2016-10-12] MEDS: ACETAMINOPHEN TAB 650MG DOSE (2X325MG) PO PRN (01:41)
[2016-10-12] MEDS: IPRATROPIUM 0.5MG/ALBUTEROL 2.5MG INH SOL UD 3ML (DUONEB)(J7620) NEB SCH ×4 (02:00→19:56)
[2016-10-12 04:00] VITALS: BP 151/63
[2016-10-12] MEDS: HEPARIN SOD (PORCINE) 5000 UNITS/ML VIAL SC SCH ×3 (05:12→21:31)
[2016-10-12 06:24] LABS: CALCIUM LEVEL 8.6 MG/DL (8.8-10.2); CREATININE FOR GFR 4.83 MG/DL (0.70-1.30); GLOMERULAR FILTRATION RATE 12.4 (>35); POTASSIUM SERUM 4.3 MEQ/L (3.5-5.1)
--- NOTE | 2016-10-12 06:47 | ECHO ---
DATE OF STUDY: 10/11/2016 TWO-DIMENSIONAL ECHOCARDIOGRAM REFERRING PHYSICIAN: Dr. Hari Nolan INDICATION: Fever and positive blood cultures. Patient measures 62 inches and weighs 212 pounds. DIMENSIONS: IVS 1.2 LV 3.8 LVWP 1.2 LA 3.9 Aorta 3.3 RV 2.5 FINDINGS: The study is of rather limited technical quality. The patient is in sinus tachycardia with ventricular rate approximately 110-125 mmHg. Left ventricle is of normal size and overall normal contractility. Based on limitations of the study I cannot rule out small wall motion abnormalities but it seems unlikely. Overall estimated EF around 70%. Mild LVH is noted. Right ventricle appears grossly normal but it was poorly seen. Both atria are at least mildly enlarged. Aortic valve it was poorly seen, it has degenerative abnormalities with sclerotic changes. I do not appreciate any vegetations but it can be easily missed considering quality of images. Mitral valve also exhibits degenerative abnormalities with mitral annular calcifications, but leaflet mobility is preserved. Again no vegetations are seen. Tricuspid valve appears normal. Pulmonic valve was not seen. No pericardial effusion is noted. Inferior vena cava is of normal size and appropriately collapses with respiration indicative of likely normal central venous pressure. Aortic root is normal. Aortic arch was not well seen. Limited views of abdominal aorta appear normal. Doppler interrogation of aortic valve reveals no stenosis or insufficiency. There is mild mitral insufficiency and mild tricuspid insufficiency. Calculated pulmonary artery pressure is at least in low 60s corresponding to moderately severe pulmonary hypertension. Pulmonic valve was not well seen and consequently I cannot comment on its competence. Mitral inflow pattern and tissue Doppler imaging of mitral annulus reveal grade 1 diastolic dysfunction. CONCLUSIONS: 1. Study is of limited technical quality. 2. Normal LV size with mild LVH and hyperdynamic LV systolic function. Grade 1 diastolic dysfunction. Degenerative abnormalities of aortic valve with no stenosis or insufficiency. 3. Degenerative abnormalities of mitral valve with mild insufficiency. 4. Probably normal central venous pressure but at least moderately severe pulmonary hypertension. COMMENT: SBE prophylaxis is not recommended. Even though no distinct vegetation was seen in and if high clinical suspicion for bacterial endocarditis transesophageal echocardiogram will likely provide much better resolution. cc: Quentin Mya MD [facility]
[2016-10-12 07:02] LABS: MEAN CORPUSCULAR HEMOGLOBIN 32.3 pg (27.0-33.0); MEAN CORPUSCULAR HGB CONC 31.1 g/dl (32.0-36.5); MEAN CORPUSCULAR VOLUME 103.7 fl (80.0-96.0); RED CELL DISTRIBUTION WIDTH 15.1 % (11.5-14.5); WHITE BLOOD COUNT 6.7 K/mm3 (4.0-10.0)
[2016-10-12] MEDS: HumaLOG INSULIN (NovoLOG) PER UNIT SC SCH ×4 (07:30→21:00)
[2016-10-12 08:00] VITALS: BP 134/78
[2016-10-12] MEDS: NYSTATIN 100,000 UNITS/GM TOPICAL PWD 15 GM TOP SCH ×2 (10:16→21:33)
[2016-10-12] MEDS: PANTOPRAZOLE 40MG TAB (PROTONIX) PO SCH (10:16)
[2016-10-12] MEDS: ASPIRIN 81 MG ENTERIC TAB PO SCH (10:16)
[2016-10-12] MEDS: FEBUXOSTAT 40 MG TABLET (ULORIC) PO SCH (10:16)
[2016-10-12] MEDS: GABAPENTIN 300 MG CAP PO SCH (10:17)
[2016-10-12] MEDS: predniSONE 5 MG TAB PO SCH (10:17)
[2016-10-12] MEDS: CLOPIDOGREL 75 MG TAB PO SCH (10:17)
[2016-10-12] MEDS: MULTIVITAMINS/MINERALS THERAP 1 TAB PO SCH (10:17)
[2016-10-12] MEDS: DOCUSATE SODIUM 100 MG CAP PO SCH ×2 (10:17→20:57)
[2016-10-12] MEDS: CALCIUM ACETATE 667 MG GELCAP PO SCH ×3 (10:18→17:32)
[2016-10-12] MEDS ORDERED: DARBEPOETIN 100 MCG/0.5 ML *DIALYSIS* SYRINGE (J0882) IV SCH (11:15)
[2016-10-12 12:00] VITALS: BP 140/86
--- NOTE | 2016-10-12 13:09 | IPN ---
DATE OF VISIT: 10/12/2016 Mr. Rodriguez is seen this morning on his bedside. He is sitting in the chair and currently has fallen asleep. He has a difficult time waking up. Right arm is edematous and currently wrapped in Socrates bandage. He had an ultrasound and deep venous thrombosis (DVT) was ruled out. The patient underwent hemodialysis yesterday which he tolerated well. PHYSICAL EXAMINATION: Temperature 99.6 degrees Fahrenheit, heart rate 112 per minute and respiratory rate 20 per minute. Blood pressure 134/78 mmHg and oxygen saturation 97%. Head is atraumatic. Dialysis catheter in right internal jugular vein is present. Heart: Sounds are tachycardiac and distant. Lungs with diminished breath sounds bilaterally. Abdomen: Soft and nontender. Extremities: Without cyanosis or clubbing. Right hand is edematous and right arm is wrapped in Socrates bandage. Necrotic skin on his toes is unchanged. Today's labs show a WBC count of 6.7, hemoglobin 8.9 and hematocrit 28.6. Sodium 137, potassium 4.3, BUN 20 and creatinine 4.83. Blood cultures have been negative so far. PROBLEMS: 1. Cellulitis. The patient continues to improve and is afebrile. Yesterday he had shivering and chills during dialysis. However, feels well today. Blood cultures are negative so far and he remains on ceftaroline 200 mg every 12 hours. 2. End-stage renal disease. The patient was dialyzed yesterday and next dialysis will be scheduled for Thursday. 3. Right arm edema. Most likely this is related to venous obstruction. He has a Perma-Cath in his left internal jugular vein which may have contributed to the arm edema. I will discuss with Dr. Corral for consideration for removing the catheter and probably putting it on the other side if possible. 4. Anemia. His anemia is stable. I will continue to treat him with Aranesp during dialysis.
--- NOTE | 2016-10-12 15:31 | IPNPDOC ---
Subjective Date Seen The patient was seen on 10/12/16. Subjective Chief Complaint/HPI The patient is a 81-year-old male admitted with a reason for visit of Cellulitis , Fever, Gangrene Of Foot. Events since last encounter Patient doing well today. No complaints or concerns. Constitutional: Denies: Chills, Fever, Malaise Pulmonary: Denies: Dyspnea, Cough Cardiovascular: Denies: Chest Pain, Palpitations Gastrointestinal: Denies: Nausea, Vomiting, Abdominal Pain, Diarrhea, Constipation Genitourinary: Denies: Dysuria Neurological: Denies: Weakness, Numbness, Confusion Psych: Reports: Mood Normal Other systems 10 point review systems otherwise negative Objective Physical Examination General Exam: Positive: Alert ENT Exam: Positive: Mucous membr. moist/pink Neck Exam: Positive: Supple, Negative: JVD Chest Exam: Positive: Normal air movement Heart Exam: Positive: Regular Rhythm Telemetry: Positive: No significant arrhythmia Abdomen Exam: Positive: Normal bowel sounds, Soft, Negative: Tenderness Extremity Exam: Positive: Edema (L lower leg circumferential induration, tenderness, warmth/multiple toes c dry gangrene-most pronounced L first//L dorsal hand 2 cm grade 2/3 ulcer c circumferential induration/warmth) Assessment /Plan Problems (1) Sepsis Status: Acute Problem Text: Cellulitis resolving. ID recommended Keflex 500 twice a day if echo is negative, and blood cultures are negative. Echo showed no distinct vegetations, although VENUS was recommended if there is any significant concern. We will confer with ID on Thursday. -Continue vancomycin and ceftaroline (2) Cellulitis Status: Acute Response to Treatment: Improving Problem Text: D4 ceftaroline/vanco. (3) Chronic kidney disease, stage V (very severe) Status: Acute Problem Text: On chronic HD-received 10/11. Nephrology planning hemodialysis again on 10/13/2016. (4) Peripheral vascular disease Status: Chronic Response to Treatment: Stable Problem Text: follows with [facility]. 04/30/2016 celiac artery, R external iliac stent placed-[facility]. Case was discussed with Dr. Corral who will see this admission for poss need of L toe amputation (5) Gangrene of foot Status: Chronic Response to Treatment: Stable Problem Text: There was some indication that patient may receive debridement of the foot while inpatient. 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 Indicated as possible source of infection. -Confer with ID on Thursday whether or not patient should proceed with debridement if there is significant concern that this was a source or if this can be pursued at a later date (6) Hypertension Status: Chronic Response to Treatment: Stable Plan/VTE VTE Prophylaxis Ordered?: Yes VS, I&O, 24H, Fishbone Vital Signs/I&O Vital Signs Date Time Temp Pulse Resp B/P (MAP) Pulse Ox O2 Delivery O2 Flow Rate FiO2 10/12/16 12:00 98.6 110 19 140/86 (104) 96 Nasal Cannula 3.0 I&O- Last 24 Hours up to 6 AM 10/12/16 05:59 Intake Total 395 ml Output Total 2500 ml Balance -2105 ml Laboratory Data 24H LABS Laboratory Tests 2 10/11/16 17:03: Bedside Glucose (Misc Panel) 136H 10/11/16 20:26: Bedside Glucose (Misc Panel) 111H 10/12/16 05:19: Anion Gap 9, Glomerular Filtration Rate 12.4L, Blood Urea Nitrogen 20H, Creatinine 4.83H, Sodium Level 137, Potassium Level 4.3, Chloride Level 102, Carbon Dioxide Level 26, Calcium Level 8.6L 10/12/16 11:59: Bedside Glucose (Misc Panel) 164H CBC/BMP Laboratory Tests 10/12/16 05:19 Red Blood Count 2.76 L, Mean Corpuscular Volume 103.7 H, Mean Corpuscular Hemoglobin 32.3, Mean Corpuscular Hemoglobin Concent 31.1 L, Red Cell Distribution Width 15.1 H, Calcium Level 8.6 L Microbiology Microbiology 10/09/16 Blood Culture - Preliminary, Resulted No Growth after 72 hours. All specime... 10/08/16 Blood Culture - Preliminary, Resulted No Growth after 72 hours. All specime... 10/08/16 Blood Culture - Preliminary, Resulted No Growth after 72 hours. All specime... 10/08/16 Urine Culture - Final, Complete RAY FIGUEREDO MD Oct 12, 2016 15:31
[2016-10-12 16:00] VITALS: BP 140/82
[2016-10-12 20:00] VITALS: BP 137/75
[2016-10-12] MEDS: ATORVASTATIN 20 MG TAB PO SCH (20:57)
[2016-10-12] MEDS: ACETAMINOPHEN 650 MG SUPP PR PRN (23:33)
[2016-10-12 23:59] VITALS: BP 131/62
[2016-10-13] MEDS: CEFTAROLINE FOSAMIL 200 MG in D5W 50 ML IV SCH ×2 (01:05→13:35)
--- NOTE | 2016-10-13 01:30 | REPUSA ---
CLINICAL HISTORY: Not provided. COMMENTS: The cardiac silhouette is enlarged. There is evidence for pulmonary venous congestion compatible with CHF. Diffuse bilateral peribronchial interstitial thickening. Right internal jugular central cathete r is in good position with its tip in the superior vena cava. There is no definite radiographic evidence for a lung mass or consolidation. Bony structures appear normal. IMPRESSION: 1. Enlarged cardiac silhouette. 2. Pulmonary venous congestion compatible with CHF. 3. Bilateral peribronchial interstitial thickening. This can secondary to interstitial congestion shivam joan bronchitis. Thank you for your kind referral of this patient.
[2016-10-13] MEDS: IPRATROPIUM 0.5MG/ALBUTEROL 2.5MG INH SOL UD 3ML (DUONEB)(J7620) NEB SCH ×4 (01:47→19:38)
[2016-10-13] MEDS: ACETAMINOPHEN 650 MG SUPP PR PRN (04:27)
[2016-10-13] MEDS: HEPARIN SOD (PORCINE) 5000 UNITS/ML VIAL SC SCH ×3 (05:05→20:50)
[2016-10-13 05:10] LABS: MEAN CORPUSCULAR HEMOGLOBIN 31.3 pg (27.0-33.0); MEAN CORPUSCULAR HGB CONC 29.9 g/dl (32.0-36.5); MEAN CORPUSCULAR VOLUME 104.5 fl (80.0-96.0); RED CELL DISTRIBUTION WIDTH 15.1 % (11.5-14.5); WHITE BLOOD COUNT 7.3 K/mm3 (4.0-10.0)
[2016-10-13 05:27] LABS: CALCIUM LEVEL 8.5 MG/DL (8.8-10.2); CREATININE FOR GFR 6.73 MG/DL (0.70-1.30); GLOMERULAR FILTRATION RATE 8.5 (>35); POTASSIUM SERUM 4.7 MEQ/L (3.5-5.1)
[2016-10-13] MEDS: HumaLOG INSULIN (NovoLOG) PER UNIT SC SCH ×4 (07:30→20:10)
[2016-10-13 08:00] VITALS: BP 138/68
[2016-10-13] MEDS: CALCIUM ACETATE 667 MG GELCAP PO SCH ×3 (08:00→18:01)
--- NOTE | 2016-10-13 08:55 | IPNPDOC ---
Subjective Date Seen The patient was seen on 10/13/16. Subjective Chief Complaint/HPI The patient is a 81-year-old male admitted with a reason for visit of Cellulitis , Fever, Gangrene Of Foot. Events since last encounter Pt sleeping but wakes to voice. Pt states he does not feel well but feels he is about the same. He denies any pain, CP, SOB. Constitutional: Denies: Chills, Fever Pulmonary: Denies: Dyspnea Cardiovascular: Denies: Chest Pain Gastrointestinal: Denies: Abdominal Pain Objective Physical Examination General Exam: Positive: Alert ENT Exam: Positive: Mucous membr. moist/pink Neck Exam: Positive: Supple, Negative: JVD Chest Exam: Positive: Normal air movement Heart Exam: Positive: Regular Rhythm Telemetry: Positive: No significant arrhythmia Abdomen Exam: Positive: Normal bowel sounds, Soft, Negative: Tenderness Extremity Exam: Positive: Edema (L lower leg circumferential induration, tenderness, warmth/multiple toes c dry gangrene-most pronounced L first//L dorsal hand 2 cm grade 2/3 ulcer c circumferential induration/warmth) Assessment /Plan Assessment Family Medicine Attending Note: I saw and examined Mr. Rodriguez, discussed with SARA Dow. Agree with their note as documented. When I saw him several hours later, he was more somnolent. He would only wake to grumbly you and try to get you to leave to moderately painful stimuli. Dr. 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 He ordered an ABG which was within normal limits. I reordered an ammonia level, which had been normal several days ago, to see whether hepatic congestion dysfunction may have something to do with this issue. If not we'll leave him alone for the time being and see how he does after dialysis tomorrow. If this altered mental status persists, we may need to do further evaluation and/or get neurology involved. 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 ID recommended Keflex 500 twice a day if echo is negative, and blood cultures are negative. Echo showed no distinct vegetations, although VENUS was recommended if there is any significant concern. We will confer with ID on Thursday. -Continue vancomycin and ceftaroline (2) Cellulitis Status: Acute Response to Treatment: Improving Problem Text: D5 ceftaroline/vanco. (3) Chronic kidney disease, stage V (very severe) Status: Acute Problem Text: On chronic HD-received 10/11. Nephrology planning hemodialysis again on 10/13/2016. (4) Peripheral vascular disease Status: Chronic Response to Treatment: Stable Problem Text: follows with [facility]. 04/30/2016 celiac artery, R external iliac stent placed-[facility]. Case was discussed with Dr. Corral who will see this admission for poss need of L toe amputation (5) Gangrene of foot Status: Chronic Response to Treatment: Stable Problem Text: There was some indication that patient may receive debridement of the foot while inpatient. 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 Indicated as possible source of infection. -Confer with ID on Thursday whether or not patient should proceed with debridement if there is significant concern that this was a source or if this can be pursued at a later date (6) Hypertension Status: Chronic Response to Treatment: Stable Plan/VTE VTE Prophylaxis Ordered?: Yes VS, I&O, 24H, Fishbone Vital Signs/I&O Vital Signs Date Time Temp Pulse Resp B/P (MAP) Pulse Ox O2 Delivery O2 Flow Rate FiO2 10/13/16 08:05 Nasal Cannula 3.0 10/13/16 08:00 99.6 61 19 138/68 (91) 90 I&O- Last 24 Hours up to 6 AM 10/13/16 06:00 Intake Total 350 ml Output Total 0 ml Balance 350 ml Laboratory Data 24H LABS Laboratory Tests 2 10/12/16 11:59: Bedside Glucose (Misc Panel) 164H 10/12/16 17:30: Bedside Glucose (Misc Panel) 72L 10/12/16 21:31: Bedside Glucose (Misc Panel) 178H 10/13/16 04:58: Anion Gap 10, Glomerular Filtration Rate 8.5L, Blood Urea Nitrogen 31#H, Creatinine 6.73H, Sodium Level 136, Potassium Level 4.7, Chloride Level 103, Carbon Dioxide Level 23, Calcium Level 8.5L CBC/BMP Laboratory Tests 10/13/16 04:58 Red Blood Count 2.79 L, Mean Corpuscular Volume 104.5 H, Mean Corpuscular Hemoglobin 31.3, Mean Corpuscular Hemoglobin Concent 29.9 L, Red Cell Distribution Width 15.1 H, Calcium Level 8.5 L Microbiology Microbiology 10/09/16 Blood Culture - Preliminary, Resulted No Growth after 72 hours. All specime... 10/08/16 Blood Culture - Preliminary, Resulted No Growth after 72 hours. All specime... 10/08/16 Blood Culture - Preliminary, Resulted No Growth after 72 hours. All specime... 10/08/16 Urine Culture - Final, Complete Mango Tao Oct 13, 2016 08:55 Madhav Ingram MD Oct 13, 2016 20:40
[2016-10-13 10:47] LABS: ABG BASE EXCESS 0.2 (-2.0-2.0); ABG DEVICE NASAL CANN; ABG HCO3 25.5 MEQ/L (22.0-26.0); ABG PARTIAL PRESSURE CO2 44.9 mmHg (35.0-45.0); ABG PARTIAL PRESSURE O2 83.4 mmHg (75.0-100.0); ABG STANDARD HCO3 24.6 MEQ/L (22.0-26.0); ABG TOTAL CO2 26.9 MEQ/L (23.0-31.0); ABG pH (ARTERIAL) 7.373 UNITS (7.350-7.450)
[2016-10-13 12:00] VITALS: BP 141/75
[2016-10-13] MEDS: predniSONE 5 MG TAB PO SCH (13:58)
[2016-10-13] MEDS: FEBUXOSTAT 40 MG TABLET (ULORIC) PO SCH (13:58)
[2016-10-13] MEDS: MULTIVITAMINS/MINERALS THERAP 1 TAB PO SCH (13:58)
[2016-10-13] MEDS: CLOPIDOGREL 75 MG TAB PO SCH (13:58)
[2016-10-13] MEDS: PANTOPRAZOLE 40MG TAB (PROTONIX) PO SCH (13:58)
[2016-10-13] MEDS: ASPIRIN 81 MG ENTERIC TAB PO SCH (13:58)
[2016-10-13] MEDS: DOCUSATE SODIUM 100 MG CAP PO SCH ×2 (13:58→20:51)
[2016-10-13] MEDS: NYSTATIN 100,000 UNITS/GM TOPICAL PWD 15 GM TOP SCH ×2 (13:59→20:53)
[2016-10-13 16:00] VITALS: BP 125/67
[2016-10-13] MEDS: ACETAMINOPHEN TAB 650MG DOSE (2X325MG) PO PRN (18:16)
[2016-10-13 20:00] VITALS: BP 132/74
--- NOTE | 2016-10-13 20:17 | IPN ---
DATE: 10/13/2016 Mr. Rodriguez is seen this morning on his bedside. He is sleeping and difficult to awake. We tried and he could only open his eyes for only a second, but did not talk. Nursing staff reports that earlier during the report he was talking, but since then he has been sleeping. He did not eat at all. He had similar situation yesterday and did not take his medications. On physical exam temperature is 99.6 degrees Fahrenheit, heart rate 100 per minute and respiratory rate 20 per minute. Blood pressure 141/75 mmHg and oxygen saturation 97% on 3 liters oxygen. His head is atraumatic. Neck is supple and there is no visible jugular venous distention (JVD). Dialysis catheter is intact in right internal jugular vein. Heart: Sounds are tachycardiac. Lungs with moderate bilateral air entry and poor inspiratory effort. Abdomen: Soft and nontender and extremities without cyanosis or clubbing. Lower extremity cellulitis and edema has improved. Chronic necrotic skin on toes is unchanged. Today's labs show sodium level 136 and potassium 4.7. BUN 31 and creatinine 6.73. WBC count 7.3, hemoglobin 8.7 and hematocrit 29. We ordered a blood gas earlier and the results have now come back. This showed a pH of 7.37, pCO2 44.9 and pO2 83.4. Bicarb is 24.6. PROBLEMS: 1. Altered mentation. Etiology is uncertain. He certainly does not have any uremic encephalopathy or carbon dioxide retention. I will defer to hospitalist service for further investigations. 2. End-stage renal disease. The patient was last dialyzed on Thursday. We will plan to dialyze him again tomorrow. He has been well dialyzed so uremic encephalopathy is very unlikely. 3. Anemia. This is chronic related to end-stage renal disease and ongoing infective problems. The patient receives Aranesp during dialysis.
[2016-10-13] MEDS: ATORVASTATIN 20 MG TAB PO SCH (20:51)
[2016-10-13] MEDS: NORCO, ANEXSIA 5/325MG TABLET (HYDROcodone/ACETAMINOPHEN) PO PRN (20:51)
[2016-10-13 23:59] VITALS: BP 158/86
[2016-10-14] MEDS: CEFTAROLINE FOSAMIL 200 MG in D5W 50 ML IV SCH ×2 (00:31→17:21)
[2016-10-14] MEDS: IPRATROPIUM 0.5MG/ALBUTEROL 2.5MG INH SOL UD 3ML (DUONEB)(J7620) NEB SCH ×4 (02:00→19:45)
[2016-10-14 04:45] VITALS: BP 136/62
[2016-10-14 05:33] LABS: BASO % 0.7 % (0.0-1.0); EOS # 0.1 K/mm3 (0.0-0.50); EOS % 1.7 % (0.0-3.0); LARGE UNSTAINED CELL # 0.1 K/mm3 (0.0-0.4); LARGE UNSTAINED CELL % 1.8 % (0.0-4.0); LYMPH # 0.9 K/mm3 (1.5-4.5); LYMPH % 10.3 % (24.0-44.0); MEAN CORPUSCULAR HEMOGLOBIN 31.3 pg (27.0-33.0); MEAN CORPUSCULAR HGB CONC 29.8 g/dl (32.0-36.5); MONO # 0.4 K/mm3 (0.0-0.8); MONO % 5.6 % (0.0-5.0); NEUTROPHILS # 6.2 K/mm3 (1.8-7.7); PLATELET COUNT, AUTOMATED 298 k/mm3 (150-450); RED CELL DISTRIBUTION WIDTH 15.2 % (11.5-14.5); WHITE BLOOD COUNT 7.8 K/mm3 (4.0-10.0)
[2016-10-14 05:45] LABS: CALCIUM LEVEL 8.5 MG/DL (8.8-10.2); CREATININE FOR GFR 8.55 MG/DL (0.70-1.30); GLOMERULAR FILTRATION RATE 6.4 (>35)
[2016-10-14 05:49] LABS: POTASSIUM SERUM 5.2 MEQ/L (3.5-5.1)
[2016-10-14] MEDS: HEPARIN SOD (PORCINE) 5000 UNITS/ML VIAL SC SCH ×3 (06:11→21:37)
[2016-10-14] MEDS: ASPIRIN 81 MG ENTERIC TAB PO SCH (06:12)
[2016-10-14] MEDS: CLOPIDOGREL 75 MG TAB PO SCH (06:12)
[2016-10-14] MEDS: DOCUSATE SODIUM 100 MG CAP PO SCH ×2 (06:12→21:37)
[2016-10-14] MEDS: MULTIVITAMINS/MINERALS THERAP 1 TAB PO SCH (06:12)
[2016-10-14] MEDS: predniSONE 5 MG TAB PO SCH (06:12)
[2016-10-14] MEDS: FEBUXOSTAT 40 MG TABLET (ULORIC) PO SCH (06:12)
[2016-10-14] MEDS: PANTOPRAZOLE 40MG TAB (PROTONIX) PO SCH (06:12)
[2016-10-14] MEDS: NYSTATIN 100,000 UNITS/GM TOPICAL PWD 15 GM TOP SCH ×2 (06:12→21:37)
[2016-10-14] MEDS: CALCIUM ACETATE 667 MG GELCAP PO SCH ×3 (06:12→17:21)
[2016-10-14] MEDS: HumaLOG INSULIN (NovoLOG) PER UNIT SC SCH ×4 (07:30→21:00)
[2016-10-14 08:00] VITALS: BP 117/57
--- NOTE | 2016-10-14 09:12 | CR ---
DATE OF CONSULTATION: 10/13/2016 REASON FOR VASCULAR SURGICAL CONSULTATION: Left lower extremity gangrenous toes and cellulitis. HISTORY OF PRESENT ILLNESS: Patient is an 81-year-old male who is a resident of [facility] who was transferred to the hospital for evaluation of left lower extremity cellulitis and fever. The patient was most recently admitted with infection of his left arm arteriovenous graft which required resection of the infection portion of the graft. The patient was recently seen in the office with good healing of the graft site noted. The patient was admitted to the hospital and started on IV antibiotics and has been undergoing hemodialysis during his hospital stay. The patient also has swelling in the right upper extremity and an ultrasound showed no evidence of deep vein thrombosis (DVT) in the right upper extremity. PAST MEDICAL HISTORY: End stage renal disease requiring hemodialysis. Hypertension. Peripheral arterial disease status post external iliac stenting and celiac artery stenting. Chronic obstructive pulmonary disease (COPD). Coronary artery disease. Diastolic chronic congestive heart failure (CHF). Hyperlipidemia. Diabetes mellitus requiring insulin. Gout. Neuropathy. PAST SURGICAL HISTORY: Left arm AV graft removal and debridement of infected tissue with graft ligation. Right internal jugular vein PermaCath placement. External iliac and celiac artery stenting. Cardiac catheterization with thromboembolism and gangrene of the tips of the toes. MEDICATIONS: - Aranesp - Mycostatin - Plavix - Uloric - multivitamin - Protonix - Deltasone - ceftaroline fosamil - insulin - Lipitor - Colace - DuoNeb - PhosLo - Humalog insulin - Tylenol - Stella - Proventil - Dulcolax - fleets enema - Milk of Magnesia - Nitrostat - Ecotrin ALLERGIES: No known drug allergies. FAMILY HISTORY: Noncontributory. SOCIAL HISTORY: No history of IV or recreational drug use, smoking or alcohol abuse. Patient is a resident of [facility]. REVIEW OF SYSTEMS: CONSTITUTIONAL: Negative. EYES: Negative. EARS/NOSE/MOUTH/THROAT: Negative. CARDIOVASCULAR: Negative. RESPIRATORY: Negative. GASTROINTESTINAL (GI): Negative. GENITOURINARY (): Negative. MUSCULOSKELETAL: Swelling in the left leg with chronic bilateral lower extremity venous stasis disease. Tips of multiple toes on the left and right foot have been with dry eschar. INTEGUMENTARY: Negative. NEURO: Negative. PSYCH: Negative. ENDO: Patient has a history of diabetes requiring insulin. HEMATOLOGIC: Negative. LYMPHOPOIETIC: Negative. IMMUNOLOGIC/ALLERGIC: Negative. STUDIES: The patient underwent a right upper extremity venous duplex, which was negative for deep vein thrombosis (DVT). PHYSICAL EXAMINATION: VITALS: Afebrile with stable vital signs. GENERAL: Slightly lethargic, but arousable and answers questions appropriately. NEUROLOGIC: No focal deficits noted. EYES: No abnormalities noted. EARS/NOSE/THROAT/MOUTH: No abnormalities noted. NECK: Supple with no carotid bruits. HEART: Regular rate and rhythm. LUNGS: Clear to auscultation bilaterally with decreased breath sounds at the bases. ABDOMEN: Soft, nontender, nondistended with no palpable pulsatile masses. UPPER EXTREMITIES: Left upper extremity shows a well healed wound site where the left brachial artery to axillary vein arterial graft was removed and ligated. There is 2+ brachial, radial and ulnar pulses in the left upper extremity. Right upper extremity shows 3+ pitting edema in the hand and wrist region. Less edema in the forearm and upper arm. There is a right internal jugular vein PermaCath in place which is dressed and no signs of infection noted. The right upper extremity shows 2+ brachial, radial and ulnar pulses. Lower extremities 2+ femoral pulses with dopplerable popliteal, dorsalis pedis and posterior tibial pulses. The right lower extremity shows stigmata of chronic venous insufficiency and the tips of the toes show gangrene and dry eschar. The left lower extremity shows cellulitis in the above ankle region to the knee, which has been marked on admission and shows significant improvement. There is much less cellulitic changes. There are chronic stigmata of venous insufficiency. The left also shows toes with gangrene at the tips. There is no cellulitis in the toes or forefoot on either foot. The gangrene of the toes is unchanged since the patient's previous office visit approximately one week ago. LYMPHATICS: No lymphadenopathy noted in the neck, axillary or inguinal regions. SKIN: Warm and well perfused with no obvious masses or lesions noted. PSYCHIATRIC: Patient appears in a good mood, is slightly lethargic today, but does arouse with stimulation. ASSESSMENT: The patient is an 81-year-old male with fevers and left lower extremity recurrent cellulitis and has bilateral lower extremity venous stasis stigmata without ulceration. The patient has gangrene of the tips of the toes, which is unchanged from previous evaluation in the office. The patient has undergone revision, ligation and removal of an infected left upper arm graft with placement of a right internal jugular vein PermaCath and now has right upper extremity swelling. The toes on both feet do not look infected and do not believe this is the etiology of his fevers and the cellulitis in the left lower extremity is related to his venous insufficiency, not secondary to the gangrenous tips of the toes. There is no cellulitis in the left foot and the cellulitis is in the region of his venous stasis changes. With regards to the cellulitis, the antibiotic therapy appears to be working and he will require elevation of his left and right lower extremities with compressive therapy with compression stockings once he has stabilized. The patient does not require intervention for the toes at this point and does not require amputation of the toes or debridement and I would continue to allow the wounds to heal spontaneously with no intervention for the tips of the toes. 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 The patient will require an kimo wrap from the base of the fingers of the right upper extremity to the upper arm as well as right upper extremity elevation. If the right upper extremity elevation and compressive therapy do not improve the swelling, the patient may require removal of the PermaCath from the right side with placement either on the left side or in the femoral veins on either side. The patient has had ultrasounds of the lower extremities and upper extremities showing no evidence of DVT. I will continue to follow the patient while he is in the hospital as well as upon discharge. Thank you for allowing me to participate in the care of this patient.
--- NOTE | 2016-10-14 09:43 | IPNPDOC ---
Subjective Date Seen The patient was seen on 10/14/16. Subjective Chief Complaint/HPI The patient is a 81-year-old male admitted with a reason for visit of Cellulitis , Fever, Gangrene Of Foot. Events since last encounter pt this morning denies pain, he remains confused. His ROS is difficult to obtain as a result. General: Reports: ROS Unobtainable Objective Physical Examination General Exam: Positive: Alert, No Acute Distress ENT Exam: Positive: Mucous membr. moist/pink Neck Exam: Positive: Supple, Negative: JVD Chest Exam: Positive: Clear to auscultation, Diminished, Negative: Normal air movement Heart Exam: Positive: Rate Normal, Regular Rhythm Telemetry: Positive: No significant arrhythmia Abdomen Exam: Positive: Normal bowel sounds, Soft, Negative: Tenderness Extremity Exam: Positive: Edema (L lower leg circumferential induration, tenderness, warmth/multiple toes c dry gangrene-most pronounced L first//L dorsal hand 2 cm grade 2/3 ulcer c circumferential induration/warmth) Assessment /Plan Problems (1) Sepsis Status: Acute Problem Text: 10/14 - erythema, warmth of LE improved, blood cultures Neg x 3, ECHO without distinct vegetations, spoke with Dr Huff who would like ID suggestion on whether to proceed with VENUS, this will need to be addressed 10/15. For now he will be continued on IV Ceftaroline. Pt without leukocytosis, T max 100.2. Repeat CRP, ESR in AM. 10/12 Cellulitis resolving. ID recommended Keflex 500 twice a day if echo is negative, and blood cultures are negative. Echo showed no distinct vegetations, although VENUS was recommended if there is any significant concern. We will confer with ID on Thursday. -Continue vancomycin and ceftaroline (2) Cellulitis Status: Acute Response to Treatment: Improving Problem Text: D6 ceftaroline, see above. (3) Chronic kidney disease, stage V (very severe) Status: Acute Problem Text: On chronic HD-received 10/11. Nephrology planning hemodialysis on 10/14/2016. (4) Peripheral vascular disease Status: Chronic Response to Treatment: Stable Problem Text: 10/14 - Dr Corral saw the pt does not feel the toe wounds are actively infected or the source of his cellulitis. Does not recommend amputation at this time. 10/13 follows with [facility]. 04/30/2016 celiac artery, R external iliac stent placed-[facility]. Case was discussed with Dr. Corral who will see this admission for poss need of L toe amputation (5) Gangrene of foot Status: Chronic Response to Treatment: Stable Problem Text: There was some indication that patient may receive debridement of the foot while inpatient. 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 Indicated as possible source of infection. -Confer with ID on Thursday whether or not patient should proceed with debridement if there is significant concern that this was a source or if this can be pursued at a later date (6) Hypertension Status: Chronic Response to Treatment: Stable Plan/VTE VTE Prophylaxis Ordered?: Yes Plan Attending note: I saw and evaluated the patient, and agree with the plan of care as discussed and documented above. Due to the patient's change in neurologic status, a CT head was ordered to evaluate for CVA. I discussed with the patient's healthcare proxy, his daughter Faby, about the patient's CODE STATUS. They had considered making him full code with the exception of intubation, however after a lengthy discussion on his overall health and likely response to heroic measures, the daughter agrees that he should be DNR/DNI/no tube feeds/no IV fluids. Ray Huff MD VS, I&O, 24H, [facility] Vital Signs/I&O Vital Signs Date Time Temp Pulse Resp B/P (MAP) Pulse Ox O2 Delivery O2 Flow Rate FiO2 10/14/16 08:00 98.0 102 24 117/57 (77) 97 Nasal Cannula 3.0 I&O- Last 24 Hours up to 6 AM 10/14/16 06:00 Intake Total 260 ml Output Total 0 ml Balance 260 ml Laboratory Data 24H LABS Laboratory Tests 2 10/13/16 10:37: Blood Gas Bicarbonate Standard 24.6, Arterial Blood pH 7.373, Arterial Blood Partial Pressure CO2 44.9, Arterial Blood Partial Pressure O2 83.4, Arterial Blood Total CO2 26.9, Arterial Blood HCO3 25.5, Arterial Blood Base Excess 0.2, Arterial Blood Oxygen Saturation 95.4, Arterial Blood Gas Liter Flow 3L, Oxygen Delivery Device NASAL MARY 10/13/16 11:00: Bedside Glucose (Misc Panel) 128H 10/13/16 12:42: Ammonia 14 10/13/16 17:13: Bedside Glucose (Misc Panel) 177H 10/13/16 20:05: Bedside Glucose (Misc Panel) 174H 10/14/16 05:14: White Blood Count 7.8, Red Blood Count 2.72L, Hemoglobin 8.5L, Hematocrit 28.5L , Mean Corpuscular Volume 105.0H, Mean Corpuscular Hemoglobin 31.3, Mean Corpuscular Hemoglobin Concent 29.8L, Red Cell Distribution Width 15.2H, Platelet Count 298, Neutrophils (%) (Auto) 80.0H, Lymphocytes (%) (Auto) 10.3L, Monocytes (%) (Auto) 5.6H, Eosinophils (%) (Auto) 1.7, Basophils (%) (Auto) 0.7 , Neutrophils # (Auto) 6.2, Lymphocytes # (Auto) 0.9L, Monocytes # (Auto) 0.4, Eosinophils # (Auto) 0.1, Basophils # (Auto) 0.0, Large Unclassified Cells % 1.8 , Large Unclassified Cells # 0.1, Anion Gap 10, Glomerular Filtration Rate 6.4L , Blood Urea Nitrogen 44H, Creatinine 8.55H, Sodium Level 139, Potassium Level 5.2H, Chloride Level 103, Carbon Dioxide Level 26, Calcium Level 8.5L CBC/BMP Laboratory Tests 10/14/16 05:14 Red Blood Count 2.72 L, Mean Corpuscular Volume 105.0 H, Mean Corpuscular Hemoglobin 31.3, Mean Corpuscular Hemoglobin Concent 29.8 L, Red Cell Distribution Width 15.2 H, Neutrophils (%) (Auto) 80.0 H, Lymphocytes (%) (Auto ) 10.3 L, Monocytes (%) (Auto) 5.6 H, Eosinophils (%) (Auto) 1.7, Basophils (%) (Auto) 0.7, Neutrophils # (Auto) 6.2, Lymphocytes # (Auto) 0.9 L, Monocytes # ( Auto) 0.4, Eosinophils # (Auto) 0.1, Basophils # (Auto) 0.0, Calcium Level 8.5 L Microbiology Microbiology 10/09/16 Blood Culture - Preliminary, Resulted No Growth after 72 hours. All specime... 10/08/16 Blood Culture - Final, Complete NO GROWTH AFTER 5 DAYS 10/08/16 Blood Culture - Final, Complete NO GROWTH AFTER 5 DAYS 10/08/16 Urine Culture - Final, Complete ARLENE SANCHEZ PA-C Oct 14, 2016 09:43 RAY HUFF MD Oct 14, 2016 13:08
--- NOTE | 2016-10-14 11:53 | REP ---
Clinical: Altered mental status. Comparison: 09/08/2016 . Findings: Age-related atrophy and microvascular ischemic changes are appreciated. The ventricles and sulci are symmetric. Stone-white differentiation is maintained. There is no evidence for acute intracranial hemorrhage, mass/mass effect, pathology or infarction. No extra-axial fluid collection. Calvarium is intact. Paranasal sinuses and mastoid air cells are clear. Impression: Age related atrophy and microvascular ischemic changes. No acute intracranial hemorrhage, infarction, or mass/mass effect. Signed by Ramesh Mc MD 10/14/2016 11:44 A
[2016-10-14 12:00] VITALS: BP 99/56
[2016-10-14] MEDS ORDERED: HEPARIN 1,000 UNITS/ML 10ML VIAL (FOR RADIOLOGY& DIALYSIS ONLY) XX ONE (12:00)
[2016-10-14] MEDS ORDERED: HEPARIN 1,000 UNITS/ML 10ML VIAL (FOR RADIOLOGY& DIALYSIS ONLY) IV ONE (12:00)
[2016-10-14] MEDS: ACETAMINOPHEN TAB 650MG DOSE (2X325MG) PO PRN (12:29)
[2016-10-14] MEDS ORDERED: SLF 3 ML SYR IV PRN (15:15)
[2016-10-14] MEDS: NORCO, ANEXSIA 5/325MG TABLET (HYDROcodone/ACETAMINOPHEN) PO PRN (17:26)
[2016-10-14] MEDS ORDERED: ONDANSETRON 4MG/2ML VIAL (J2405) IV PRN (18:45)
[2016-10-14] MEDS ORDERED: SIMETHICONE 80 MG CHEW TAB PO PRN (18:45)
[2016-10-14 19:54] VITALS: BP 114/53
[2016-10-14] MEDS: ATORVASTATIN 20 MG TAB PO SCH (21:37)
[2016-10-14] MEDS: SLF 3 ML SYR IV SCH (21:37)
[2016-10-14 23:59] VITALS: BP 109/58
[2016-10-15] MEDS: CEFTAROLINE FOSAMIL 200 MG in D5W 50 ML IV SCH ×2 (01:31→13:10)
[2016-10-15] MEDS: IPRATROPIUM 0.5MG/ALBUTEROL 2.5MG INH SOL UD 3ML (DUONEB)(J7620) NEB SCH ×4 (01:53→20:17)
[2016-10-15] MEDS: ACETAMINOPHEN TAB 650MG DOSE (2X325MG) PO PRN (03:36)
[2016-10-15 03:37] VITALS: BP 107/58
[2016-10-15 04:21] LABS: ADD MANUAL DIFFER YES; MEAN CORPUSCULAR HEMOGLOBIN 31.9 pg (27.0-33.0); MEAN CORPUSCULAR HGB CONC 30.9 g/dl (32.0-36.5); MEAN CORPUSCULAR VOLUME 103.3 fl (80.0-96.0); PLATELET COUNT, AUTOMATED 320 k/mm3 (150-450); RED CELL DISTRIBUTION WIDTH 14.7 % (11.5-14.5); WHITE BLOOD COUNT 12.2 K/mm3 (4.0-10.0)
[2016-10-15 04:40] LABS: ERYTHROCYTE SEDIMENTATION RATE 126 mm/hr (0-20)
[2016-10-15] MEDS: HEPARIN SOD (PORCINE) 5000 UNITS/ML VIAL SC SCH ×3 (05:26→21:12)
[2016-10-15] MEDS: SLF 3 ML SYR IV SCH ×3 (05:26→21:12)
[2016-10-15 05:56] LABS: NUCLEATED RED BLOOD CELL 1 % (0-0)
--- NOTE | 2016-10-15 07:28 | IPNPDOC ---
Subjective Date Seen The patient was seen on 10/15/16. Subjective Chief Complaint/HPI The patient is a 81-year-old male admitted with a reason for visit of Cellulitis , Fever, Gangrene Of Foot. Events since last encounter Pt states he is feeling better. Denies any pain or SOB. Constitutional: Denies: Chills, Fever Pulmonary: Denies: Dyspnea Cardiovascular: Denies: Chest Pain Gastrointestinal: Denies: Abdominal Pain Objective Physical Examination General Exam: Positive: Alert, No Acute Distress ENT Exam: Positive: Mucous membr. moist/pink Neck Exam: Positive: Supple, Negative: JVD Chest Exam: Positive: Clear to auscultation, Diminished, Negative: Normal air movement Heart Exam: Positive: Rate Normal, Irregular Rhythm Telemetry: Positive: No significant arrhythmia Abdomen Exam: Positive: Normal bowel sounds, Soft, Negative: Tenderness Extremity Exam: Positive: Edema (L lower leg circumferential induration, tenderness, warmth/multiple toes c dry gangrene-most pronounced L first//L dorsal hand 2 cm grade 2/3 ulcer c circumferential induration/warmth) Assessment /Plan Problems (1) Sepsis Status: Acute Problem Text: 10/15 - WBC up today to 12.2 (7.8 yesterday). On IV Ceftaroline. Afebrile. Will ask ID for suggestion on whether to proceed with VENUS. 10/14 - erythema, warmth of LE improved, blood cultures Neg x 3, ECHO without distinct vegetations, spoke with Dr Huff who would like ID suggestion on whether to proceed with VENUS, this will need to be addressed 10/15. For now he will be continued on IV Ceftaroline. Pt without leukocytosis, T max 100.2. Repeat CRP , ESR in AM. 10/12 Cellulitis resolving. ID recommended Keflex 500 twice a day if echo is negative, and blood cultures are negative. Echo showed no distinct vegetations, although VENUS was recommended if there is any significant concern. We will confer with ID on Thursday. -Continue vancomycin and ceftaroline (2) Cellulitis Status: Acute Response to Treatment: Improving Problem Text: D7 ceftaroline, see above. (3) Chronic kidney disease, stage V (very severe) Status: Acute Problem Text: 10/15 - Receiving HD. Dr Bass following. 10/14 - On chronic HD-received 10/11. Nephrology planning hemodialysis on 2016. (4) Peripheral vascular disease Status: Chronic Response to Treatment: Stable Problem Text: 10/14 - Dr Corral saw the pt does not feel the toe wounds are actively infected or the source of his cellulitis. Does not recommend amputation at this time. 10/13 follows with [facility]. 04/30/2016 celiac artery, R external iliac stent placed-[facility]. Case was discussed with Dr. Corral who will see this admission for poss need of L toe amputation (5) Gangrene of foot Status: Chronic Response to Treatment: Stable Problem Text: There was some indication that patient may receive debridement of the foot while inpatient. 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 Indicated as possible source of infection. -Confer with ID on Thursday whether or not patient should proceed with debridement if there is significant concern that this was a source or if this can be pursued at a later date (6) Hypertension Status: Chronic Response to Treatment: Stable Plan/VTE VTE Prophylaxis Ordered?: Yes Plan Family Medicine Attending Note: I saw and examined Mr. Rodriguez, discussed with SARA Dow. Agree with their note as documented. Mr. Rodriguez continues to have some fluctuating mental status but I believe this is delirium likely from being in the hospital. I spoke to Dr. Bass today regarding his dialysis status. He does not have any reason to keep the patient here from his standpoint. The cellulitis is continuing to improve. Unfortunately I don't have any cultures to help guide transition to narrow spectrum antibiotics. We'll work on setting up his discharge and plan on continuing the Teflaro until that time. Once we discharge him back to [facility] he should finish out 10 days total therapy with vancomycin dosed after dialysis. We still need to finish coordinating with infectious disease as to whether he needs a transesophageal echocardiogram before he leaves the hospital. 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) VS, I&O, 24H, Fishbone Vital Signs/I&O Vital Signs Date Time Temp Pulse Resp B/P (MAP) Pulse Ox O2 Delivery O2 Flow Rate FiO2 10/15/16 03:37 98.5 103 20 107/58 (74) 92 Nasal Cannula 6.0 I&O- Last 24 Hours up to 6 AM 10/15/16 06:00 Intake Total 240 ml Output Total 2000 ml Balance -1760 ml Laboratory Data 24H LABS Laboratory Tests 2 10/14/16 11:20: Bedside Glucose (Misc Panel) 214H 10/14/16 17:11: Bedside Glucose (Misc Panel) 89 10/14/16 21:32: Bedside Glucose (Misc Panel) 132H 10/15/16 03:55: Neutrophils 84H, Lymphocytes (Manual) 11L, Monocytes (Manual) 3, Metamyelocytes 2H, Nucleated Red Blood Cells 1H, Platelet Estimate NORMAL, Macrocytosis 1+, Erythrocyte Sedimentation Rate 126H, C-Reactive Protein, Quantitative 24.60H CBC/BMP Laboratory Tests 10/15/16 03:55 Red Blood Count 2.90 L, Mean Corpuscular Volume 103.3 H, Mean Corpuscular Hemoglobin 31.9, Mean Corpuscular Hemoglobin Concent 30.9 L, Red Cell Distribution Width 14.7 H Microbiology Microbiology 10/09/16 Blood Culture - Final, Complete NO GROWTH AFTER 5 DAYS 10/08/16 Blood Culture - Final, Complete NO GROWTH AFTER 5 DAYS 10/08/16 Blood Culture - Final, Complete NO GROWTH AFTER 5 DAYS 10/08/16 Urine Culture - Final, Complete Mango Tao RPA-C Oct 15, 2016 07:28 Madhav Ingram MD Oct 15, 2016 12:06
[2016-10-15 08:00] VITALS: BP 106/58
--- NOTE | 2016-10-15 08:16 | IPN ---
DATE: 10/14/2016 Mr. Rodriguez is seen during hemodialysis this afternoon. I had seen him earlier this morning in his room. Apparently, he woke up at about 02:00 p.m. yesterday according to nursing staff. He did have lunch and then stayed well. This morning he was awake and talking. He did answer my questions somewhat appropriately. He has no fever or chills. He denies any nausea or vomiting. His temperature is 98 degrees Fahrenheit, heart rate 104 per minute and respiratory rate 24 per minute. Blood pressure 117/57 mmHg and oxygen saturation 97% on 3 liters oxygen. Head is atraumatic. Neck veins are difficult to be assessed. Dialysis catheter is present in right internal jugular vein. Heart sounds are tachycardiac and lungs with diminished breath sounds bilaterally. Abdomen is soft and nontender. Bowel sounds are normal and there is no palpable organomegaly. Extremities have no cyanosis or clubbing. His right arm is still wrapped in Socrates bandage. Necrotic skin on his toes is unchanged. Today's labs show WBC count 7.8, hemoglobin 8.5 and hematocrit 28.5. Sodium 139, potassium 5.2. BUN 44 and creatinine 8.55. PROBLEMS: 1. End-stage renal disease. The patient is being dialyzed today. He is tolerating his dialysis treatment very well. Dialysis catheter is working. 2. Hyperkalemia. This is mild and related to end-stage renal disease. This will be corrected with hemodialysis as he is being dialyzed with 2.0 mEq potassium bath. 3. Anemia. The patient has been started on Aranesp 300 mcg once a week, which will be continued. 4. Altered mentation. Yesterday the patient had significant lethargy and altered mentation. However, today he seems to be back towards his baseline mental function. This is most likely toxic and metabolic encephalopathy. 5. Cellulitis lower extremities. His cellulitis has almost completely resolved. The patient remains on antibiotics.
[2016-10-15] MEDS: NYSTATIN 100,000 UNITS/GM TOPICAL PWD 15 GM TOP SCH ×2 (08:35→21:11)
[2016-10-15] MEDS: FEBUXOSTAT 40 MG TABLET (ULORIC) PO SCH (08:35)
[2016-10-15] MEDS: DOCUSATE SODIUM 100 MG CAP PO SCH ×2 (08:35→21:11)
[2016-10-15] MEDS: HumaLOG INSULIN (NovoLOG) PER UNIT SC SCH ×4 (08:35→21:00)
[2016-10-15] MEDS: predniSONE 5 MG TAB PO SCH (08:35)
[2016-10-15] MEDS: PANTOPRAZOLE 40MG TAB (PROTONIX) PO SCH (08:36)
[2016-10-15] MEDS: ASPIRIN 81 MG ENTERIC TAB PO SCH (08:36)
[2016-10-15] MEDS: CALCIUM ACETATE 667 MG GELCAP PO SCH ×3 (08:36→17:59)
[2016-10-15] MEDS: MULTIVITAMINS/MINERALS THERAP 1 TAB PO SCH (08:36)
[2016-10-15] MEDS: CLOPIDOGREL 75 MG TAB PO SCH (08:36)
[2016-10-15 08:46] LABS: ALBUMIN 1.9 GM/DL (3.2-5.2); CALCIUM LEVEL 9.1 MG/DL (8.8-10.2); CREATININE FOR GFR 4.98 MG/DL (0.70-1.30); PHOSPHORUS LEVEL 5.2 MG/DL (2.5-4.9)
[2016-10-15 11:30] VITALS: BP 124/56
--- NOTE | 2016-10-15 12:39 | IPN ---
DATE: 10/15/2016 Mr. Rodriguez is seen this morning on his bedside. Nursing staff reports that he was awake earlier and talking. He did eat breakfast. At the time of my visit now he is sleeping and difficult to arouse. He did open his eyes but did not interact or communicate and went back to sleep. He did have hemodialysis yesterday. PHYSICAL EXAMINATION: Temperature 98.6 degrees Fahrenheit, heart rate 68 per minute and respiratory rate 18 per minute. Blood pressure 124/56 mmHg and oxygen saturation 95% on 6 liters oxygen. His head is atraumatic. Neck is supple and without jugular venous distention (JVD) or thyroid enlargement. Hemodialysis catheter is intact in right internal jugular vein. There is no infection or sign of bleeding at the catheter site. His heart sounds are regular. Lungs have moderate bilateral air entry with poor inspiratory effort. Abdomen is soft and nontender and bowel sounds are normal. Extremities have no cyanosis or clubbing. His right arm edema has improved significantly and now there is Socrates bandage only on his right forearm. His left leg cellulitis has improved. Necrotic skin on his toes is unchanged. Today's labs show WBC count 12.2, hemoglobin 9.3 and hematocrit 30. Sodium 137 and potassium 5.0. BUN 24 and creatinine 4.98. His C-reactive protein is elevated at 24.6. PROBLEMS: 1. End-stage renal disease. The patient was dialyzed yesterday. We will schedule his next hemodialysis for tomorrow. At present, his volume status seems well compensated and electrolytes are within normal range. 2. Hyperkalemia. His potassium level improved only slightly with hemodialysis yesterday. We will try to dialyze him with lower potassium bath tomorrow in order to prevent recurrent hyperkalemia. 3. Anemia. His anemia is stable and improving. We will continue with Aranesp 200 mcg once a week during dialysis. 4. Sepsis. Repeat blood cultures and urine culture has been negative. The patient remains on ceftaroline. 5. History of congestive heart failure. At present, his volume is reasonably well-compensated. He does not tolerate any excessive fluid removal with dialysis and gets frequently hypotensive and nauseated. We will continue to manage his volume status with hemodialysis.
[2016-10-15 15:30] VITALS: BP 120/50
[2016-10-15 20:00] VITALS: BP 130/58
[2016-10-15] MEDS: ATORVASTATIN 20 MG TAB PO SCH (21:11)
[2016-10-15 23:59] VITALS: BP 104/53
[2016-10-16 00:53] VITALS: O2SAT 90
[2016-10-16] MEDS: IPRATROPIUM 0.5MG/ALBUTEROL 2.5MG INH SOL UD 3ML (DUONEB)(J7620) NEB SCH ×3 (02:00→13:12)
[2016-10-16 04:00] VITALS: BP 119/57
[2016-10-16 05:33] LABS: BASO # 0.1 K/mm3 (0.0-0.2); BASO % 1.2 % (0.0-1.0); EOS # 0.3 K/mm3 (0.0-0.50); LARGE UNSTAINED CELL # 0.2 K/mm3 (0.0-0.4); LARGE UNSTAINED CELL % 1.8 % (0.0-4.0); LYMPH # 1.1 K/mm3 (1.5-4.5); LYMPH % 9.8 % (24.0-44.0); MEAN CORPUSCULAR HEMOGLOBIN 31.1 pg (27.0-33.0); MEAN CORPUSCULAR HGB CONC 30.1 g/dl (32.0-36.5); MEAN CORPUSCULAR VOLUME 103.3 fl (80.0-96.0); MONO # 0.6 K/mm3 (0.0-0.8); NEUTROPHILS # 7.5 K/mm3 (1.8-7.7); NEUTROPHILS % 78.1 % (36.0-66.0); PLATELET COUNT, AUTOMATED 348 k/mm3 (150-450); WHITE BLOOD COUNT 9.6 K/mm3 (4.0-10.0)
[2016-10-16 05:43] LABS: ALBUMIN 1.8 GM/DL (3.2-5.2); CREATININE FOR GFR 6.52 MG/DL (0.70-1.30); GLOMERULAR FILTRATION RATE 8.8 (>35); POTASSIUM SERUM 4.8 MEQ/L (3.5-5.1)
[2016-10-16 05:56] LABS: ERYTHROCYTE SEDIMENTATION RATE 128 mm/hr (0-20)
[2016-10-16] MEDS: PANTOPRAZOLE 40MG TAB (PROTONIX) PO SCH ×2 (06:04→06:14)
[2016-10-16] MEDS: MULTIVITAMINS/MINERALS THERAP 1 TAB PO SCH (06:04)
[2016-10-16] MEDS: DOCUSATE SODIUM 100 MG CAP PO SCH (06:04)
[2016-10-16] MEDS: CALCIUM ACETATE 667 MG GELCAP PO SCH ×3 (06:04→17:15)
[2016-10-16] MEDS: SLF 3 ML SYR IV SCH ×2 (06:14→15:50)
[2016-10-16] MEDS: predniSONE 5 MG TAB PO SCH (06:14)
[2016-10-16] MEDS: HEPARIN SOD (PORCINE) 5000 UNITS/ML VIAL SC SCH ×2 (06:14→12:56)
[2016-10-16] MEDS: ASPIRIN 81 MG ENTERIC TAB PO SCH (06:14)
[2016-10-16] MEDS: CLOPIDOGREL 75 MG TAB PO SCH (06:14)
[2016-10-16] MEDS: NYSTATIN 100,000 UNITS/GM TOPICAL PWD 15 GM TOP SCH (06:14)
[2016-10-16] MEDS: FEBUXOSTAT 40 MG TABLET (ULORIC) PO SCH (06:14)
[2016-10-16] MEDS: ACETAMINOPHEN TAB 650MG DOSE (2X325MG) PO PRN (06:18)
--- NOTE | 2016-10-16 07:27 | IPNPDOC ---
Subjective Date Seen The patient was seen on 10/16/16. Subjective Chief Complaint/HPI The patient is a 81-year-old male admitted with a reason for visit of Cellulitis , Fever, Gangrene Of Foot. Events since last encounter Pt states he is doing better. Denies any pain, CP, Abd pain, SOB. Constitutional: Denies: Chills, Fever Pulmonary: Denies: Dyspnea Cardiovascular: Denies: Chest Pain Gastrointestinal: Denies: Abdominal Pain Objective Physical Examination General Exam: Positive: Alert, No Acute Distress ENT Exam: Positive: Mucous membr. moist/pink Neck Exam: Positive: Supple, Negative: JVD Chest Exam: Positive: Clear to auscultation, Diminished, Negative: Normal air movement Heart Exam: Positive: Rate Normal, Irregular Rhythm Telemetry: Positive: No significant arrhythmia Abdomen Exam: Positive: Normal bowel sounds, Soft, Negative: Tenderness Extremity Exam: Positive: Edema (L lower leg circumferential induration, tenderness, warmth/multiple toes c dry gangrene-most pronounced L first//L dorsal hand 2 cm grade 2/3 ulcer c circumferential induration/warmth) Assessment /Plan Problems (1) Sepsis Status: Acute Problem Text: 10/16 - WBD down today to 9.6. On IV Ceftaroline. Afebrile. Will ask ID for suggestion on whether to proceed with VENUS. 10/15 - WBC up today to 12.2 (7.8 yesterday). On IV Ceftaroline. Afebrile. Will ask ID for suggestion on whether to proceed with VENUS. 10/14 - erythema, warmth of LE improved, blood cultures Neg x 3, ECHO without distinct vegetations, spoke with Dr Huff who would like ID suggestion on whether to proceed with VENUS, this will need to be addressed 10/15. For now he will be continued on IV Ceftaroline. Pt without leukocytosis, T max 100.2. Repeat CRP , ESR in AM. 10/12 Cellulitis resolving. ID recommended Keflex 500 twice a day if echo is negative, and blood cultures are negative. Echo showed no distinct vegetations, although VENUS was recommended if there is any significant concern. We will confer with ID on Thursday. -Continue vancomycin and ceftaroline (2) Cellulitis Status: Acute Response to Treatment: Improving Problem Text: D8 ceftaroline, see above. (3) Chronic kidney disease, stage V (very severe) Status: Acute Problem Text: 10/16 - Receiving HD. Dr Bass following. 10/15 - Receiving HD. Dr Bass following. 10/14 - On chronic HD-received 10/11. Nephrology planning hemodialysis on 2016. (4) Peripheral vascular disease Status: Chronic Response to Treatment: Stable Problem Text: 10/14 - Dr Corral saw the pt does not feel the toe wounds are actively infected or the source of his cellulitis. Does not recommend amputation at this time. 10/13 follows with [facility]. 04/30/2016 celiac artery, R external iliac stent placed-[facility]. Case was discussed with Dr. Corral who will see this admission for poss need of L toe amputation (5) Gangrene of foot Status: Chronic Response to Treatment: Stable Problem Text: There was some indication that patient may receive debridement of the foot while inpatient. 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 Indicated as possible source of infection. -Confer with ID on Thursday whether or not patient should proceed with debridement if there is significant concern that this was a source or if this can be pursued at a later date (6) Hypertension Status: Chronic Response to Treatment: Stable Plan/VTE VTE Prophylaxis Ordered?: Yes VS, I&O, 24H, Fishbone Vital Signs/I&O Vital Signs Date Time Temp Pulse Resp B/P (MAP) Pulse Ox O2 Delivery O2 Flow Rate FiO2 10/16/16 04:00 97.6 89 18 119/57 (77) 94 High Flow Cannula 8.0 I&O- Last 24 Hours up to 6 AM 10/16/16 06:00 Intake Total 650 ml Output Total 0 ml Balance 650 ml Laboratory Data 24H LABS Laboratory Tests 2 10/15/16 07:29: Bedside Glucose (Misc Panel) 103 10/15/16 11:47: Bedside Glucose (Misc Panel) 97 10/15/16 16:46: Bedside Glucose (Misc Panel) 137H 10/15/16 21:14: Bedside Glucose (Misc Panel) 117H 10/16/16 05:08: White Blood Count 9.6, Red Blood Count 2.81L, Hemoglobin 8.7L, Hematocrit 29.0L , Mean Corpuscular Volume 103.3H, Mean Corpuscular Hemoglobin 31.1, Mean Corpuscular Hemoglobin Concent 30.1L, Red Cell Distribution Width 15.0H, Platelet Count 348, Neutrophils (%) (Auto) 78.1H, Lymphocytes (%) (Auto) 9.8L, Monocytes (%) (Auto) 6.0H, Eosinophils (%) (Auto) 3.0, Basophils (%) (Auto) 1.2H , Neutrophils # (Auto) 7.5, Lymphocytes # (Auto) 1.1L, Monocytes # (Auto) 0.6, Eosinophils # (Auto) 0.3, Basophils # (Auto) 0.1, Large Unclassified Cells % 1.8 , Large Unclassified Cells # 0.2, Erythrocyte Sedimentation Rate 128H, Blood Urea Nitrogen 37#H, Creatinine 6.52H, Sodium Level 136, Potassium Level 4.8, Chloride Level 99, Carbon Dioxide Level 27, Anion Gap 10, Glomerular Filtration Rate 8.8L, Calcium Level 9.0, Phosphorus Level 6.0H, C-Reactive Protein, Quantitative 17.40H, Albumin 1.8L CBC/BMP Laboratory Tests 10/16/16 05:08 Red Blood Count 2.81 L, Mean Corpuscular Volume 103.3 H, Mean Corpuscular Hemoglobin 31.1, Mean Corpuscular Hemoglobin Concent 30.1 L, Red Cell Distribution Width 15.0 H, Neutrophils (%) (Auto) 78.1 H, Lymphocytes (%) (Auto ) 9.8 L, Monocytes (%) (Auto) 6.0 H, Eosinophils (%) (Auto) 3.0, Basophils (%) ( Auto) 1.2 H, Neutrophils # (Auto) 7.5, Lymphocytes # (Auto) 1.1 L, Monocytes # ( Auto) 0.6, Eosinophils # (Auto) 0.3, Basophils # (Auto) 0.1, Anion Gap 10 Microbiology Microbiology 10/09/16 Blood Culture - Final, Complete NO GROWTH AFTER 5 DAYS 10/08/16 Blood Culture - Final, Complete NO GROWTH AFTER 5 DAYS 10/08/16 Blood Culture - Final, Complete NO GROWTH AFTER 5 DAYS 10/08/16 Urine Culture - Final, Complete Mango Tao RPA-C Oct 16, 2016 07:27
[2016-10-16] MEDS: HumaLOG INSULIN (NovoLOG) PER UNIT SC SCH ×3 (07:30→17:15)
[2016-10-16 08:00] VITALS: BP 121/56
[2016-10-16 12:00] VITALS: BP 108/49
--- NOTE | 2016-10-16 12:11 | IPN ---
DATE: 10/16/2016 Mr. Rodriguez is seen this morning on his bedside. He is awake today and able to answer questions; however, seems to be confused. He denies any dyspnea, chest pain, nausea or vomiting. On physical examination, temperature 97.3 degrees Fahrenheit, heart rate 90 per minute and respiratory rate 22 per minute. Blood pressure 121/56 mmHg and oxygen saturation 97% on 6 liters of oxygen. His head is atraumatic. Neck supple and without jugular venous distention (JVD) or thyroid enlargement. Oral mucosa is without any thrush or ulcers. Heart sounds are irregular in rhythm. Lungs with diminished breath sounds and basilar rhonchi. Abdomen soft and nontender. Bowel sounds are present. Extremities without any cyanosis or clubbing. His right forearm swelling has improved significantly. Neurologically, he is awake, but confused and disoriented. Today's labs show WBC count 9.6, hemoglobin 8.7, and hematocrit 29.0. Platelets 348. Sodium 136 and potassium 4.8. BUN 37 and creatinine 6.52. Calcium 7.0 and phosphorus 6.0. C-reactive protein is still elevated at 17.4. PROBLEMS: 1. End stage renal disease. The patient will be dialyzed again tomorrow. Continue his dialysis three times a week. At present, his volume status is well compensated and electrolytes are within normal range. There is no need for dialysis today. 2. Cellulitis. The patient has been on Ceftaroline. He is afebrile at present. His white cell count has become normal again. 3. History of congestive heart failure. Volume status is well compensated at present. He continues to maintain his volume with hemodialysis. 4. Anemia. No significant change. He has mild fluctuations. He remains on Aranesp once a week which will be continued. 5. Generalized weakness and altered mentation. Patient remains very weak and bedridden. He does get some fluctuations in his mentation and at present seems to be confused today. Will continue to monitor. He is not suitable for any aggressive diagnostic workup.
[2016-10-16] MEDS ORDERED: CEFTAROLINE FOSAMIL 200 MG in D5W 50 ML IV SCH (14:00)
[2016-10-16 16:00] VITALS: BP 126/85
[2016-10-16] MEDS ORDERED: VANC10005 INJ ×2 (16:57→16:58)
--- NOTE | 2016-10-16 22:01 | IPN ---
DATE: 10/16/2016 Mr. Rodriguez seems to be doing better. He has not had a fever since October 13. Cellulitis of left lower extremity seems to have resolved. Temperature is 97.6. He has no nausea, vomiting or diarrhea. Temperature is 97.6, pulse 87, respirations 20, blood pressure 126/85, O2 sat 96% on 6 liters nasal cannula. LABORATORY DATA: White count is 9.6, hemoglobin 8.7, hematocrit 29, MCV 103, platelets 348. ESR 128. Sodium 136, potassium 4.8, chloride 99, bicarb 27, BUN 37, creatinine 6.5, glucose 98, calcium 9, phosphorus 6, CRP 17.4 down from 24.6, albumin 1.8. Blood cultures were no growth times three sets October 08 and October 09 and urine culture was negative. Chest x-ray done on October 13 showed pulmonary venous congestion compatible with congestive heart failure with peribronchial interstitial thickening. There was no acute infiltrate. PHYSICAL EXAMINATION: Heart: Normal S1-S2 with no significant murmurs. Lungs: Diminished breath sounds at the bases. Abdomen: Morbidly obese with multiple ecchymotic areas of heparin shots. Lower extremities: Multiple gangrenous dry gangrene of the toes, first and third of both feet. Multiple bruises on lower extremities as well and nodular mass on his right chin that has decreased in size. Cellulitis of left leg with receding erythematous margins and slight purplish discoloration. 1. Cellulitis of left lower extremity, improved with IV cefteriline. 2. 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 Status post removal of the graft and currently with hemodialysis catheter in the right chest. The patient has been on IV ceftaroline since October 09. Currently day #7 of IV antibiotics. End-stage renal disease on hemodialysis through a dialysis catheter in the right chest. PLAN: Would suggest continuing IV vancomycin for another week, a total of three dialysis doses, repeat CBC, CRP, sed rate as an outpatient in 1 week and if the patient has recurrent fever, persistent elevated sed rate and CRP after 1-2 weeks of treatment, I would suggest considering transesophageal echocardiogram to rule out endocarditis from previous episode of staph aureus bacteremia MSSA from a graft infection. Case has been discussed with Dr. Ingram who will discuss the case with Dr. Roth, his primary care provider at [facility].
[2016-10-17] MEDS ORDERED: VANC10005 INJ (14:31)
--- NOTE | 2016-10-20 13:45 | DSES ---
DATE OF ADMISSION: 10/08/2016 DATE OF DISCHARGE: 10/16/2016 PRIMARY CARE PROVIDER: Volodymyr Clark MD, at [facility] ATTENDING PHYSICIAN: Madhav Ingram MD CONSULTANTS: Daisha Bass MD, and Quentin May MD HISTORY OF PRESENT ILLNESS: Nnamdi Rodriguez is an 81-year-old male who resides at [facility] and is followed by Dr. Clark, who was sent to [facility] Emergency Department for evaluation of fevers. The patient has a history of bilateral venous stasis and diabetic foot ulcers, as well as history of multiple infected toes and gangrene on the 3rd right toe. The patient was admitted with a fever, tachycardia, and swelling and redness of the left leg. He has a history of end-stage renal disease and is on hemodialysis. Nephrology was consulted, and he did receive dialysis here in the hospital. He was started on intravenous (IV) ceftaroline and vancomycin for cellulitis of the left leg. 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 Dr. May noted that an echocardiogram on 09/09/2016 showed a possible ruptured cordae of the mitral valve, less likely vegetation. She also felt that if blood cultures and echocardiogram were negative, she was suggest switching him to Keflex to finish a 10-day course. An echocardiogram was done and read by Dr. Bruno, who noted a grade 1 diastolic dysfunction, degenerative abnormalities of aortic valve with no stenosis or insufficiency. Degenerative abnormalities of mitral valve with mild insufficiency. He noted that even though no distinct vegetation was seen, if high clinical suspicion for bacterial endocarditis, then a transesophageal echocardiogram would likely provide better resolution. The patient's blood cultures were negative. He was placed on Keflex and remained on Keflex throughout the remainder of the course of his hospitalization. He remained on ceftaroline during the course of his hospitalization and plan was to continue the vancomycin for three additional dialysis doses for a week after being discharged. He was seen again by Dr. May, who advised continuing IV vancomycin with dialysis and then repeat a complete blood count (CBC), C-reactive protein (CRP), sedimentation rate as an outpatient in a week; and if the patient had recurrent fever, persistent sedimentation rate, or CRP after 1-2 weeks, then she would suggest considering transesophageal echocardiogram (VENUS) to rule out endocarditis. Dr. May spoke to Dr. Ingram and Dr. Clark, and plans were made for the patient to be transferred back to [facility]. The patient will continue outpatient hemodialysis, as noted. PHYSICAL EXAMINATION Vital signs: Temperature 97.6, pulse 87, respiratory rate 20, blood pressure is 126/85, pulse oximetry 97% on 6 liters. General: The patient is alert, no acute distress. Chest: Clear. Heart: Irregular. Abdomen: Positive bowel sounds, soft, nontender. Extremity: Left lower extremity with some edema with multiple gangrenous dry gangrene of the toes of the 1st and 3rd, along with receding erythema. LABORATORIES: WBC 9.6, hemoglobin 8.7, hematocrit 29.0, platelets 348. Sodium 136, potassium 4.8, chloride 99, carbon dioxide 27, BUN 37, creatinine 6.52, glucose 98, calcium 9.0, phosphorus 6.0, CRP 17.4, albumin 1.8, sedimentation rate 128. MEDICATIONS: - acetaminophen 650 mg by mouth every 4 hours as needed pain or fever - [place] 5/325 mg one tablet every 4 hours as needed pain - albuterol nebulizers every 6 hours as needed dyspnea - DuoNebs every 6 hours as needed shortness of breath - aspirin 81 mg by mouth daily - Lipitor 20 mg by mouth nightly - Dulcolax 10 mg suppository [place] daily as needed constipation - calcium acetate 667 mg by mouth Wednesdays and Mondays - clopidogrel 75 mg by mouth daily - vitamin D 50,000 units by mouth every month - Uloric 40 mg by mouth daily - gabapentin 300 mg by mouth twice a day - NovoLog as directed per sliding scale - Lantus 10 units subcutaneous nightly - milk of magnesia 30 mL by mouth daily as needed constipation - multivitamin by mouth daily - nitroglycerin 0.4 mg sublingual as needed chest pain - Protonix 40 mg by mouth daily - MiraLAX 17 grams by mouth daily - prednisone 5 mg by mouth daily DISCHARGE INSTRUCTIONS: Followup with Dr. Clark at [facility] this week. Diet is 8-pldy-[id number], 2-gram potassium, nephro diet, fluid restriction is 1500 mL. Activity is out of bed to chair. Diet is also pureed. Dr. May recommends a sedimentation rate, CRP, blood cultures to be drawn on or around 10/23/2016 to followup on persistently elevated inflammatory markers. DISCHARGE DIAGNOSES: 1. Sepsis. 2. Cellulitis of left lower extremity. 3. History of methicillin-susceptible Staphylococcus aureus (MSSA) graft infection of the left arm. 4. End-stage renal disease. 5. History of congestive heart failure. 6. Anemia. 7. Generalized weakness. 8. Peripheral vascular disease. 9. Gangrene of the foot. 10. Hypertension.
== END 2016-10-16 18:32 | DRG 871 ==
LOC: M ED 10:20 → EDBD 10:20 → M ED INP 13:46 → M MSPAV 16:46 → M PCU 10-09 00:10
PROVIDERS: ADMIT Hospitalist; ATTEND Family Medicine
PROC: 5A1D60Z (ICD-10-PCS; principal; 2016-10-09)
DX: A41.9 Sepsis, unspecified organism (principal); N18.6 End stage renal disease; G92 Toxic encephalopathy; L03.116 Cellulitis of left lower limb; I13.2 Hypertensive heart and chronic kidney disease with heart failure and with stage 5 chronic kidney disease, or end stage renal disease; I50.32 Chronic diastolic (congestive) heart failure; E11.52 Type 2 diabetes mellitus with diabetic peripheral angiopathy with gangrene; L03.114 Cellulitis of left upper limb; T82.858A Stenosis of other vascular prosthetic devices, implants and grafts, initial encounter; L97.519 Non-pressure chronic ulcer of other part of right foot with unspecified severity; E11.621 Type 2 diabetes mellitus with foot ulcer; J44.9 Chronic obstructive pulmonary disease, unspecified; E87.5 Hyperkalemia; L97.529 Non-pressure chronic ulcer of other part of left foot with unspecified severity; G89.4 Chronic pain syndrome; E66.01 Morbid (severe) obesity due to excess calories; I08.0 Rheumatic disorders of both mitral and aortic valves; I87.2 Venous insufficiency (chronic) (peripheral); E78.5 Hyperlipidemia, unspecified; D63.1 Anemia in chronic kidney disease; M10.30 Gout due to renal impairment, unspecified site; E11.42 Type 2 diabetes mellitus with diabetic polyneuropathy; I25.10 Atherosclerotic heart disease of native coronary artery without angina pectoris; Z99.2 Dependence on renal dialysis; Z79.4 Long term (current) use of insulin; Z79.82 Long term (current) use of aspirin; Z79.02 Long term (current) use of antithrombotics/antiplatelets; Z79.52 Long term (current) use of systemic steroids; Z79.899 Other long term (current) drug therapy; Z95.820 Peripheral vascular angioplasty status with implants and grafts; Z68.38 Body mass index [BMI] 38.0-38.9, adult; Y83.1 Surgical operation with implant of artificial internal device as the cause of abnormal reaction of the patient, or of later complication, without mention of misadventure at the time of the procedure

== ENCOUNTER 2016-10-17 08:13 | Inpatient (IN) | payer MEDICARE, MEDICAID ==
[~2016-10-17] VITALS: Ht 157.5 cm; Wt 82.0 kg
[~2016-10-17 08:13] MED LIST changes: +ACEP650S PR; +AMBI5TAB PO; +AMLO5TAB2 PO; +ASPI81CH PO; +INSULADS SQ; +VANC10005 INJ
[2016-10-17 10:47] LABS: ADD MANUAL DIFFER YES; MEAN CORPUSCULAR HEMOGLOBIN 31.6 pg (27.0-33.0); MEAN CORPUSCULAR HGB CONC 30.2 g/dl (32.0-36.5); MEAN CORPUSCULAR VOLUME 104.4 fl (80.0-96.0); PLATELET COUNT, AUTOMATED 358 k/mm3 (150-450); RED CELL DISTRIBUTION WIDTH 15.1 % (11.5-14.5); WHITE BLOOD COUNT 11.1 K/mm3 (4.0-10.0)
[2016-10-17 10:59] LABS: ALBUMIN/GLOBULIN RATIO 0.42 (1.00-1.93); ALKALINE PHOSPHATASE 99 U/L (45-117); ALT/SGPT 24 U/L (12-78); ANION GAP 11 MEQ/L (8-16); AST/SGOT 34 U/L (15-37); BILIRUBIN,DIRECT < 0.1 MG/DL (0.0-0.2); BILIRUBIN,TOTAL 0.3 MG/DL (0.2-1.0); BLOOD UREA NITROGEN 50 MG/DL (7-18); CALCIUM LEVEL 8.7 MG/DL (8.8-10.2); CARBON DIOXIDE LEVEL 25 MEQ/L (21-32); CHLORIDE LEVEL 98 MEQ/L (98-107); CREATININE FOR GFR 8.43 MG/DL (0.70-1.30); GLOMERULAR FILTRATION RATE 6.5 (>35); GLUCOSE, FASTING 165 MG/DL (83-110); PHOSPHORUS LEVEL 6.2 MG/DL (2.5-4.9); SODIUM LEVEL 134 MEQ/L (136-145); TOTAL PROTEIN 6.8 GM/DL (6.4-8.2)
[2016-10-17 11:06] LABS: POTASSIUM SERUM 5.4 MEQ/L (3.5-5.1)
[2016-10-17 11:25] LABS: ANISOCYTOSIS 2+; BANDS 1 % (< 11); EOSINOPHILS 3 % (0-5); NUCLEATED RED BLOOD CELL 1 % (0-0)
[2016-10-17 11:49] LABS: ABG BASE EXCESS -2.1 (-2.0-2.0); ABG HCO3 25.7 MEQ/L (22.0-26.0); ABG PARTIAL PRESSURE O2 68.5 mmHg (75.0-100.0); ABG STANDARD HCO3 22.5 MEQ/L (22.0-26.0); ABG TOTAL CO2 27.6 MEQ/L (23.0-31.0)
--- NOTE | 2016-10-17 11:51 | REP ---
Clinical: Shortness of breath. Technique: AP semiupright. Comparison: 10/13/2016. Findings: Double-lumen central venous catheter in stable position within the SVC. Mediastinum and cardiac silhouette are stable. Lung scott demonstrate diffuse chronic interstitial changes. Superimposed interstitial edema cannot be excluded. No discrete focal consolidation, obvious effusion or pneumothorax. Skeletal structures intact. Impression: Chronic changes. Cannot exclude superimposed interstitial edema or atelectasis. Signed by Ramesh Mc MD 10/17/2016 11:43 A
--- NOTE | 2016-10-17 11:59 | REP ---
Clinical: Altered mental status. Comparison: 10/14/2016 . Findings: Age-related atrophy and microvascular ischemic changes are appreciated. The ventricles and sulci are symmetric. Stnoe-white differentiation is maintained. There is no evidence for acute intracranial hemorrhage, mass/mass effect, pathology or infarction. No extra-axial fluid collection. Calvarium is intact. Paranasal sinuses and mastoid air cells are clear. Impression: Age related atrophy and microvascular ischemic changes. No acute intracranial hemorrhage, infarction, or mass/mass effect. Signed by Ramesh Mc MD 10/17/2016 11:51 A
[2016-10-17] MEDS ORDERED: VANC10005 INJ (14:31)
[2016-10-17] MEDS ORDERED: GLUCAGON FOR INJ 1 MG VIAL (J1610) SC PRN (14:45)
[2016-10-17] MEDS ORDERED: NORCO, ANEXSIA 5/325MG TABLET (HYDROcodone/ACETAMINOPHEN) PO SCH (14:45)
[2016-10-17] MEDS ORDERED: ACETAMINOPHEN 650 MG SUPP PR PRN (14:45)
[2016-10-17] MEDS ORDERED: DEXTROSE 50% 50 ML SYRINGE IV PRN (14:45)
[2016-10-17] MEDS ORDERED: NORCO, ANEXSIA 5/325MG TABLET (HYDROcodone/ACETAMINOPHEN) PO PRN (14:45)
[2016-10-17] MEDS ORDERED: ALBUTEROL SULFATE 2.5 MG/0.5 ML INH NEB SOLN INH PRN (14:45)
[2016-10-17] MEDS ORDERED: VANCOMYCIN 1000 MG/20 ML VIAL (J3370) IV SCH (14:45)
[2016-10-17] MEDS ORDERED: NITROGLYCERIN 0.4 MG SUBL TABLET SL PRN (14:45)
[2016-10-17] MEDS ORDERED: MOM 30ML SUSPENSION UDC PO PRN (14:45)
[2016-10-17] MEDS ORDERED: FLEET ENEMA PR PRN (14:45)
[2016-10-17] MEDS ORDERED: GLUCOSE 4 GM CHEW TABLET PO PRN (14:45)
[2016-10-17] MEDS ORDERED: BISACODYL 10 MG SUPP PR PRN (14:45)
[2016-10-17] MEDS ORDERED: IPRATROPIUM 0.5MG/ALBUTEROL 2.5MG INH SOL UD 3ML (DUONEB)(J7620) INH PRN (14:45)
--- NOTE | 2016-10-17 16:38 | HPEPDOC ---
General Date of Admission 10/17/2016 Primary Care Physician: Volodymyr Clark M.D. Attending Physician: HILARY LOTT MD Chief Complaint The patient is a 81-year-old male admitted with a reason for visit of AMS. Source: Old records History of Present Illness Mr. Rodriguez is an 81-year-old male who was just discharged from the hospital yesterday. Apparently he was supposed to receive dialysis this afternoon, however it is reported that he was found to be obtunded this morning and therefore sent to the emergency department for further evaluation. Emergency department did speak with the respiratory care assistant, and he was shortly set up to inpatient dialysis. He was also found to have an acute respiratory acidosis upon arrival as well. I saw and evaluated him in the dialysis unit. Mr. Rodriguez is completely obtunded, and does not respond to stimulation. He is snoring. Home Medications Scheduled (Aspirin) 81 Mg Chw, 81 MG PO DAILY, (Reported) Acetaminophen/Hydrocodone (Hector 5-325 mg) 1 Tab Tab, 1 TAB PO 3XW, (Reported) MON WED THU BEFORE DIALYSIS AT 1430 Atorvastatin Calcium (Lipitor) 20 Mg Tab, 20 MG PO QHS, (Reported) Calcium Acetate (Calcium Acetate) 667 Mg Cap, 667 MG PO WM, (Reported) Clopidogrel Bisulfate (Clopidogrel) 75 Mg Tab, 75 MG PO DAILY, (Reported) Ergocalciferol (Vitamin D) 50,000 Unit Cap, 50,000 UNIT PO QMONTH, (Reported) 1ST OF EVERY MONTH Febuxostat (Uloric) 40 Mg Tab, 40 MG PO DAILY, (Reported) Gabapentin (Gabapentin) 300 Mg Cap, 300 MG PO BID, (Reported) Insulin Aspart (Novolog) 100 U/Ml Inj, 0 SC ASDIRECTED, (Reported) Per Sliding Scale Insulin Glargine (Lantus) 100 Unit/Ml Inj, 10 UNIT SQ QHS, (Reported) Multivitamins *[facility] STOCKED* (Thera M Plus *[facility] STOCKED*) 1 Tab Tab, 1 TAB PO DAILY, (Reported) Pantoprazole Sodium Sesquihydr (Protonix) 40 Mg Tab, 40 MG PO DAILY, (Reported) Polyethylene Glycol (Miralax) 1 Pow Pow, 17 GM PO DAILY, (Reported) Prednisone (Prednisone) 5 Mg Tab, 5 MG PO DAILY, (Reported) Vancomycin/Dextrose (Vancomycin HCl) 1,000 Mg Soln, 1,000 MG INJ 3XW, (Reported) AFTER DIALYSIS Scheduled PRN (Enema Disposable) 1 Tejinder Tejinder, 1 TEJINDER ME DAILY PRN for BOWEL CARE/CONSTIPATION, ( Reported) Acetaminophen (Tylenol) 325 Mg Tab, 650 MG PO Q4H PRN for PAIN OR FEVER, ( Reported) Acetaminophen (Acephen) 650 Mg Sup, 650 MG ME Q4H PRN for PAIN, (Reported) Acetaminophen/Hydrocodone (Hector 5-325 mg) 1 Tab Tab, 1 TAB PO Q4H PRN for PAIN, (Reported) Albuterol Sulfate (Albuterol Sulfate) 2.5 Mg/3 Ml Nebu, 2.5 MG INH Q6H PRN for DYSPNEA, (Reported) Albuterol/Ipratropium (Ipratropium [place]/Albut 0.5-2.5 (3) mg/3Ml) 1 Isac Isac, 1 ISAC INH Q6H PRN for SHORTNESS OF BREATH, (Reported) Bisacodyl (Dulcolax) 10 Mg Sup, 10 MG ME DAILY PRN for CONSTIPATION, (Reported) Milk Of Magnesia (Milk of Magnesia) 1,200 Mg/15 Ml Karen, 30 ML PO DAILY PRN for CONSTIPATION, (Reported) Nitroglycerin (Nitroglycerin) 0.4 Mg Sub, 0.4 MG SL Q5MP PRN for CHEST PAIN, ( Reported) Allergies Coded Allergies: No Known Drug Allergy (Verified Allergy, Unknown, 07/19/12) Past Medical History Medical History 1. End-stage renal disease on hemodialysis 2. Hypertension 3. Peripheral vascular disease 4. 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 Dry gangrene of multiple toes 6. COPD 7. Coronary artery disease 8. Chronic congestive heart failure, diastolic 9. Hyperlipidemia 10. Insulin-dependent diabetes mellitus 11. Gout 12. Diabetic neuropathy Surgical History Fistula in the left arm Family History Unable to obtain Social History Unable to obtain, but per medical record he is a nonsmoker, nor does he drink alcohol or use illicit drugs. He is a resident of the [facility] Review of Symptoms Other systems Unobtainable Physical Examination General Exam: Negative: Alert ENT Exam: Positive: Atraumatic, Mucous membr. moist/pink, Pharynx Normal, Other ENT (poor dentition) Neck Exam: Positive: Other (JVD is difficult to determine because of the patient's body habitus) Vital Signs Vital Signs Date Time Temp Pulse Resp B/P (MAP) Pulse Ox O2 Delivery O2 Flow Rate FiO2 10/17/16 13:41 22 Nasal Cannula 5.0 10/17/16 13:13 88 138/63 (88) 93 10/17/16 08:43 97.7 Laboratory Data Labs 24H Laboratory Tests 2 10/17/16 10:13: Anion Gap 11, Glomerular Filtration Rate 6.5L, Calcium Level 8.7L, Phosphorus Level 6.2H, Aspartate Amino Transf (AST/SGOT) 34, Alanine Aminotransferase (ALT/ SGPT) 24, Alkaline Phosphatase 99, Total Bilirubin 0.3, Direct Bilirubin < 0.1, Total Creatine Kinase 16L, Creatine Kinase MB 1.0, Creatine Kinase MB Relative Index 6.25H, Troponin I 0.07, C-Reactive Protein, Quantitative 12.80H, Total Protein 6.8, Albumin 2.0L, Albumin/Globulin Ratio 0.42L 10/17/16 10:22: Neutrophils 71, Band Neutrophils 1, Lymphocytes (Manual) 9L, Monocytes (Manual) 3, Eosinophils (Manual) 3, Metamyelocytes 4H, Myelocytes 8H, Nucleated Red Blood Cells 1H, Atypical Lymphocytes 1, Platelet Estimate NORMAL, Anisocytosis 2 +, Macrocytosis 2+ 10/17/16 11:28: Blood Gas Bicarbonate Standard 22.5, Arterial Blood pH 7.250L, Arterial Blood Partial Pressure CO2 60.0H, Arterial Blood Partial Pressure O2 68.5L, Arterial Blood Total CO2 27.6, Arterial Blood HCO3 25.7, Arterial Blood Base Excess -2.1L , Arterial Blood Oxygen Saturation 89.8L CBC/BMP Laboratory Tests 10/17/16 10:13 10/17/16 10:22 Red Blood Count 2.90 L, Mean Corpuscular Volume 104.4 H, Mean Corpuscular Hemoglobin 31.6, Mean Corpuscular Hemoglobin Concent 30.2 L, Red Cell Distribution Width 15.1 H Problems (1) Acute respiratory failure with hypercapnia Status: Acute (2) Unresponsiveness Status: Acute (3) Volume overload Status: Acute (4) Leucocytosis Status: Acute (5) Erythema of lower limb Status: Chronic (6) Pulmonary hypertension Status: Chronic (7) Hyperlipidemia Status: Chronic (8) Chronic respiratory failure with hypoxia Status: Chronic (9) Anemia Status: Chronic (10) Gout Status: Chronic (11) CAD (coronary artery disease) Status: Chronic (12) Diabetes Status: Chronic (13) Diastolic CHF Status: Chronic (14) COPD (chronic obstructive pulmonary disease) Status: Chronic (15) Anemia in chronic kidney disease Status: Chronic (16) Peripheral vascular disease Status: Chronic (17) Hypertension Status: Chronic (18) Gangrene of foot Status: Chronic (19) ESRD (end stage renal disease) on dialysis Status: Chronic Plan / VTE VTE Prophylaxis Ordered?: Yes (heparin) Plan Plan Most likely cause of Mr. Rodriguez's obtundation is acute fluid overload, for which nephrology has been consulted and he is already begun dialysis. He also does continue to have multiple gangrenous toes, with some erythema extending up the left leg. I did touch bases with Dr. May (Infectious Disease), she is familiar with the case and recommends to continue him on vancomycin for the next 7 days (3 doses with hemodialysis) per her recommendations from yesterday prior to discharge. He also does have an acute respiratory acidosis with hypercarbia, it is hoped that with the reduction of fluid during dialysis, and the correction of his electrolytes, his respiratory status will improve. Will obtain an ABG directly after the completion of dialysis, and if he persistently has a respiratory acidosis, we will start him on BiPAP at that time. He has been saturating well in the low 90s since he has arrived. His multiple electrolyte abnormalities including hyponatremia, hyperchloremia, hypocalcemia, and hyperphosphatemia will be corrected in dialysis. Otherwise, no changes were made to his long list of home medications, for his chronic medical conditions. JONNY ANGLIN DO Oct 17, 2016 14:52
[2016-10-17] MEDS ORDERED: HumaLOG INSULIN (NovoLOG) PER UNIT SC SCH ×2 (17:30→21:00)
[2016-10-17 17:56] LABS: ABG BASE EXCESS -3.6 (-2.0-2.0); ABG HCO3 22.9 MEQ/L (22.0-26.0); ABG PARTIAL PRESSURE CO2 47.6 mmHg (35.0-45.0); ABG PARTIAL PRESSURE O2 96.9 mmHg (75.0-100.0); ABG STANDARD HCO3 21.5 MEQ/L (22.0-26.0); ABG TOTAL CO2 24.4 MEQ/L (23.0-31.0)
[2016-10-17] MEDS: ASPIRIN 81 MG CHEW TABLET PO SCH (17:59)
[2016-10-17] MEDS: predniSONE 5 MG TAB PO SCH (17:59)
[2016-10-17] MEDS: MULTIVITAMINS/MINERALS THERAP 1 TAB PO SCH (18:00)
[2016-10-17] MEDS: FEBUXOSTAT 40 MG TABLET (ULORIC) PO SCH (18:00)
[2016-10-17] MEDS: CALCIUM ACETATE 667 MG GELCAP PO SCH (18:00)
[2016-10-17] MEDS: MIRALAX *UNIT DOSE* 17GM PACKET PO SCH (18:00)
[2016-10-17] MEDS: HumaLOG INSULIN (NovoLOG) PER UNIT SC SCH (18:00)
[2016-10-17] MEDS: PANTOPRAZOLE 40MG TAB (PROTONIX) PO SCH (18:00)
[2016-10-17] MEDS: CLOPIDOGREL 75 MG TAB PO SCH (18:00)
--- NOTE | 2016-10-17 19:49 | PHACANCOPD ---
PHARMACY VANCOMYCIN DOSING Pt Demographics Demographics Patient Age:81 , Weight:88.000 , Gender: male Adjusted Body Weight Date: 10/17/16, Adjusted Body Weight: [67.96] Kg Events Past 24 Hours Events Past 24 Hours: YES: Elevation in WBC, Other (Elevated CRP) Vancomycin Vancomycin indication: LLE cellulitis Vancomycin Target Ranges: 10-20 mcg/ml Vancomycin Load Y/N: Yes Load Dose Date Time Vancomycin Load Dose: 1500mg Date: 10/17/16 Time: 2000 Vancomycin Dose Date: 10/17/16. Current Vancomycin Dose: [1g IV HD] Intermittent Dosing?: Yes Labs Labs Item Value Date Time White Blood Count 11.1 K/mm3 H 10/17/16 1022 Creatinine 8.43 MG/DL H 10/17/16 1013 Blood Urea Nitrogen 50 MG/DL H 10/17/16 1013 C-Reactive Protein, Quantitative 12.80 MG/DL H 10/17/16 1013 Creatinine Clearance Date:10/17/16. Estimated Creatinine Clearance: [~5.3ml/min]. Assessment and Plan Maintaining Current Dose?: Yes Reason for dose change: No Dose Change Pharmacist Note Pharmacist Note Date: 10/17/16. Pharmacist note: Vancomycin therapy re-initiated after a one time dose given on 10/08/16 using a 1500mg loading dose, followed by 1g IV HD intermittent dosing for the treatment of a LLE cellulitis - aiming for a goal trough of 10-20mcg/ml. The patient has ESRD and undergoes dialysis every Thursday , Thursday, Thursday, and he was dialyzed today inpatient. He was recently discharged from [facility] yesterday, 10/16/16, after completing 8 days of IV ceftaroline. The patient's WBC and CRP are elevated today upon readmission, but the patient remains afebrile. No hx of MRSA, but the patient does have a hx of MSSA. We will continue to monitor and schedule random levels as needed. ERICKA [facility] Oct 17, 2016 19:49
[2016-10-17] MEDS ORDERED: VANCOMYCIN HCL 1,000 MG, VIAL MATE ADAPTER 1 EACH in D5W 250 ML IV ONE (20:00)
[2016-10-17 20:25] VITALS: BP 120/60
--- NOTE | 2016-10-17 20:34 | CR ---
DATE OF CONSULTATION: 10/17/2016 REQUESTING PHYSICIAN: Dr. Ingram CONSULTING PHYSICIAN: Dr. Bonilla REASON FOR CONSULTATION: Management of end-stage renal disease, hemodialysis and fluid overload. CHIEF COMPLAINT: The patient was sent to the emergency room because of confusion, altered mental status and respiratory distress. HISTORY OF THE PRESENT ILLNESS: Mr. Nnamdi Rodriguez is an 81-year-old male with a past medical history of end-stage renal disease, on hemodialysis every Thursday, Thursday, Thursday, well known to nephrology service from outpatient hemodialysis and from multiple recent admissions. He was recently admitted to the hospital after treatment of cellulitis. He was just discharged yesterday. Today is his regular day of dialysis. However, the patient could not go for hemodialysis because he was found to be obtunded, confused. I saw the patient in the emergency room. He is unable to provide any history. He is very confused and obtunded, in moderate respiratory distress. ABG done in the emergency room showed hypercapnia and hypoxemia with an arterial pH of 7.25. Nephrology service was actually called by emergency room. After evaluation of the patient in the emergency room, I arranged his urgent hemodialysis. PAST MEDICAL HISTORY: End-stage renal disease, on hemodialysis every Thursday, Thursday, Thursday. Hypertension. Peripheral vascular disease. History of multiple dry gangrenous lesions of multiple toes. Chronic obstructive pulmonary disease (COPD). Coronary artery disease. History of diastolic congestive heart failure. Insulin-dependent diabetes mellitus. Gout. Hyperlipidemia. Recent history of left leg cellulitis. PAST SURGICAL HISTORY: Status post left arm AV fistula. Status post left heart catheterization. Status post stent placement in the celiac trunk. ALLERGIES: The patient is not known to have any drug allergies. FAMILY HISTORY: The patient is unable to provide any significant family history because he is obtunded. SOCIAL HISTORY: The [facility] is a [facility] resident at this time. There is no history of illicit drug abuse or alcohol abuse or smoking. REVIEW OF SYSTEMS: The patient was unable to provide any reliable review of systems. He is obtunded and in moderate respiratory distress at this time. PHYSICAL EXAMINATION: GENERAL: The patient is awake, patient does not respond to vocal commands. He responds to painful stimuli. He is in moderate respiratory distress, intermittently opens his eyes. VITAL SIGNS: Temperature is 97.7 degrees Fahrenheit. Blood pressure is 123/67, pulse is 92, respiratory rate of 20, saturating 92% on nasal cannula at 6 liters. HEAD AND NECK EXAM: The patient is normocephalic, atraumatic, has dry mucous membranes at this time. Pupils are equally round and reactive to light. Neck is supple. There is no jugular venous distention (JVD). CARDIOVASCULAR: S1, S2. Slight tachycardia. No murmur, rub or gallop. RESPIRATORY: Mild crepitations at bases bilaterally. No rales or rhonchi at this time. ABDOMEN: Soft. Positive bowel sounds. Nontender. No ascites. No organomegaly. EXTREMITIES: The patient has dry gangrenous lesions of multiple toes bilaterally, and he has healing cellulitis of the left leg. CENTRAL NERVOUS SYSTEM: The patient is obtunded at this time. He does not follow any commands. He moves extremities to painful stimuli. There is no significant cervical, axillary or inguinal lymphadenopathy. SKIN: The patient has erythema of the left leg, and he has dry gangrenous lesions on multiple toes. LAB REVIEW: CBC showed a WBC of 11.1, hemoglobin 9.2, platelets are 358. ABG done this morning showed a pH of 7.25, pCO2 of 60, pO2 68.5, bicarbonate 25.7, oxygen saturation is 89.8%. BMP showed sodium 134, potassium 5.4, chloride 98, bicarbonate 25, BUN 50, creatinine is 8.4, calcium 8.7, phosphorus 6.2, albumin is 2. IMAGING: A chest x-ray done today in the morning showed interstitial edema. There was no focal consolidation, and a CT scan of the head done today in the morning showed no acute intracranial hemorrhage, infarction or mass effect. MEDICATIONS ON PRESENTATION TO THE HOSPITAL: The patient was on Tylenol as needed, [place] every 4 hours as needed for pain, albuterol as needed, aspirin 81 mg by mouth daily, Lipitor 20 mg nightly, Dulcolax 10 mg as needed, PhosLo one tablet by mouth three times a day with meals, Plavix 75 mg by mouth daily, Lantus 10 units nightly, insulin sliding scale, Milk of Magnesia as needed, nitroglycerin as needed, Protonix 40 mg daily, MiraLAX 17 grams by mouth daily, prednisone 5 mg daily and vancomycin 1 gram three times a week after dialysis. ASSESSMENT: An 81-year-old male with a past medical history of end-stage renal disease, on hemodialysis, diabetes mellitus type 2, coronary artery disease with diastolic congestive heart failure, chronic obstructive pulmonary disease (COPD), recently discharged from the hospital after treatment of cellulitis. The patient was readmitted because of altered mental status, hypoxic and hypercapnic respiratory failure. PLAN: 1. Acute respiratory distress with hypercapnia and hypoxemia. The patient is obtunded, and he is on opioids as well. With a history of end-stage renal disease, I would recommend stopping the opioid pain medications at this time. It might have exacerbated his CO2 retention. However, since today is patient's day of dialysis, I am going to dialyze the patient and do an ultrafiltration of at least 3 liters as tolerated by his blood pressure. 2. End-stage renal disease, on hemodialysis. The patient's regular days of dialysis are Thursday, Thursday, Thursday. The patient will be dialyzed today. 3. Hyperkalemia. The patient will be dialyzed against a 2K bath. Potassium is expected to improve after hemodialysis. 4. Hyponatremia. It is secondary to end-stage renal disease and hypovolemia. Sodium level is expected to improve after hemodialysis. 5. Hyperphosphatemia. It is secondary to end-stage renal disease. The patient will get dialysis. Continue PhosLo one tablet by mouth three times a day with meals. 6. Left lower extremity cellulitis. The patient was discussed by primary team with infectious disease. They have recommended vancomycin 1 gram IV with hemodialysis. Continue the antibiotics as per infectious disease (ID) recommendations. 7. Chronic gout because of end-stage renal disease. Continue current dose of Uloric 40 mg by mouth daily. 8. Diabetes mellitus type 2. The patient has insulin-dependent diabetes. Continue insulin sliding scale. Levemir can be started once the patient starts taking an oral diet. 9. Chronic steroid dependence. Continue current dose of prednisone 5 mg by mouth daily. Thank you for involving us in the care of this patient. We shall be happy to follow the patient along with you tomorrow morning. Plan of care was discussed with the patient's RN at the bedside in the emergency room. The patient was seen and examined again during hemodialysis procedure as well.
--- NOTE | 2016-10-17 20:56 | ECGEPIP ---
Stationary ECG Study [facility] - ED Test Date: 2016-10-17 Pat Name: EVE GANN Department: Room: - Gender: M Ad Taker: tk : [phone] Requested By: CAROLINE Montemayor Order Number: [id number] Reading MD: Lauren Vernon Measurements Intervals [place] Rate: 92 P: 15 HI: 152 QRS: -1 QRSD: 86 T: 83 QT: 354 QTc: 440 Interpretive Statements SINUS RHYTHM WITH FREQUENT VENTRICULAR PREMATURE COMPLEXES POSSIBLE LEFT ATRIAL ENLARGEMENT NONSPECIFIC T-WAVE ABNORMALITY ABNORMAL RHYTHM ECG INCREASED ECTOPY 10/08/16 Electronically Signed On 10-17-2016 20:56:20 EDT by Lauren Vernon
[2016-10-17] MEDS ORDERED: GABAPENTIN 300 MG CAP PO SCH (21:00)
[2016-10-17] MEDS ORDERED: VANCOMYCIN HCL 500 MG in D5W MINI-BAG PLUS 100 ML IV ONE (21:00)
[2016-10-17] MEDS ORDERED: LEVEMIR (INSULIN DETEMIR) 1 UNITS/0.01ML SC ONE (21:00)
[2016-10-17] MEDS: ATORVASTATIN 20 MG TAB PO SCH (21:00)
[2016-10-18] VITALS (7 sets, daily range): BP systolic 112–142; BP diastolic 52–69; PULSE 99
[2016-10-18] MEDS: HumaLOG INSULIN (NovoLOG) PER UNIT SC SCH ×5 (00:45→20:19)
[2016-10-18 03:24] LABS: ALBUMIN 2.1 GM/DL (3.2-5.2); CREATININE FOR GFR 5.16 MG/DL (0.70-1.30); GLOMERULAR FILTRATION RATE 11.5 (>35); PHOSPHORUS LEVEL 4.2 MG/DL (2.5-4.9); POTASSIUM SERUM 4.3 MEQ/L (3.5-5.1)
[2016-10-18 03:57] LABS: MEAN CORPUSCULAR HEMOGLOBIN 31.3 pg (27.0-33.0); MEAN CORPUSCULAR HGB CONC 29.8 g/dl (32.0-36.5); MEAN CORPUSCULAR VOLUME 105.2 fl (80.0-96.0); RED CELL DISTRIBUTION WIDTH 15.2 % (11.5-14.5); WHITE BLOOD COUNT 13.1 K/mm3 (4.0-10.0)
[2016-10-18 06:06] LABS: ABG BASE EXCESS 0.3 (-2.0-2.0); ABG HCO3 26.9 MEQ/L (22.0-26.0); ABG PARTIAL PRESSURE CO2 53.1 mmHg (35.0-45.0); ABG PARTIAL PRESSURE O2 88.3 mmHg (75.0-100.0); ABG STANDARD HCO3 24.8 MEQ/L (22.0-26.0); ABG TOTAL CO2 28.6 MEQ/L (23.0-31.0); ABG pH (ARTERIAL) 7.323 UNITS (7.350-7.450)
[2016-10-18] MEDS: FEBUXOSTAT 40 MG TABLET (ULORIC) PO SCH (08:56)
[2016-10-18] MEDS: CLOPIDOGREL 75 MG TAB PO SCH (08:56)
[2016-10-18] MEDS: predniSONE 5 MG TAB PO SCH (08:56)
[2016-10-18] MEDS: PANTOPRAZOLE 40MG TAB (PROTONIX) PO SCH (08:56)
[2016-10-18] MEDS: ASPIRIN 81 MG CHEW TABLET PO SCH (08:56)
[2016-10-18] MEDS: MIRALAX *UNIT DOSE* 17GM PACKET PO SCH (08:56)
[2016-10-18] MEDS: CALCIUM ACETATE 667 MG GELCAP PO SCH ×3 (08:56→17:29)
[2016-10-18] MEDS: MULTIVITAMINS/MINERALS THERAP 1 TAB PO SCH (08:56)
--- NOTE | 2016-10-18 09:18 | IPNPDOC ---
Subjective Date Seen The patient was seen on 10/18/16. Subjective Chief Complaint/HPI The patient is a 81-year-old male admitted with a reason for visit of Acute On Chronic Diastolic Chf,Confusion,Copd. General: Reports: ROS Unobtainable Objective Physical Examination General Exam: Positive: Other (eyes closed no response to verbal stimulus), Negative: Alert Eye Exam: Negative: Sclera icteric, Ptosis ENT Exam: Positive: Atraumatic, Mucous membr. moist/pink, Pharynx Normal, Other ENT (poor dentition) Neck Exam: Positive: Supple, Other (JVD is difficult to determine because of the patient's body habitus) Chest Exam: Positive: Rhonchi, Diminished, Negative: Rales (scattered rhonchi, clear with minimal intermittent cough), Wheezing Heart Exam: Positive: Regular Rhythm, Negative: Murmurs Abdomen Exam: Positive: Normal bowel sounds, Soft, Negative: Tenderness Extremity Exam: Positive: Other (pulses diminished/absent. black eschar over tips of several toes, bilaterlly) Skin Exam: Positive: Other skin issue (erythematous zone left lower leg, maybe slightly larger than demarcation line of 10/14/16) Neuro Exam: Positive: Other (unresponsive, observed to move extremities spontaneously, facies symmetric, occasional moaning.) Assessment /Plan Problems (1) Acute respiratory failure with hypercapnia Status: Acute Response to Treatment: Improving (2) Unresponsiveness Status: Acute Response to Treatment: Stable Problem Text: CT brain no change. Possibly related to toxic encephalopathy associated with skin infection and mixed metabolic and respiratory acidosis. (3) Volume overload Status: Acute Problem Specific Plan: Consult Specialist (hemodialysis per Dr. Bonilla) (4) Leucocytosis Status: Acute Problem Specific Plan: Monitor Clinically (5) Erythema of lower limb Status: Chronic (6) Pulmonary hypertension Status: Chronic (7) Hyperlipidemia Status: Chronic (8) Chronic respiratory failure with hypoxia Status: Chronic (9) Anemia Status: Chronic Problem Text: Anemia associated with Stage 5 CKD (10) Gout Status: Chronic Problem Specific Plan: Monitor Clinically (11) CAD (coronary artery disease) Status: Chronic Problem Specific Plan: Monitor Clinically (12) Diabetes Status: Chronic Problem Specific Plan: Monitor Clinically (13) Diastolic CHF Status: Chronic Problem Specific Plan: Monitor Clinically Problem Text: primary treatment is through dialysis to correct fluid overload (14) COPD (chronic obstructive pulmonary disease) Status: Chronic Response to Treatment: Improving Problem Text: Although CO2 is a little higher, pH is improved, likely due to metabolic improvement from dialysis. Respirations are observed to be easy with intermittent clearing of secretions. (15) Anemia in chronic kidney disease Status: Chronic Response to Treatment: Stable Problem Specific Plan: Monitor Clinically (16) Peripheral vascular disease Status: Chronic Problem Specific Plan: Monitor Clinically (17) Hypertension Status: Chronic Problem Specific Plan: Monitor Clinically (18) Gangrene of foot Status: Chronic Problem Text: necrotic demarcation lines of toes noted. monitor for any evidence of associated cellulitis. currently receiving vancomycin post dialysis (19) ESRD (end stage renal disease) on dialysis Status: Chronic Response to Treatment: Improving Problem Specific Plan: Consult Specialist Plan/VTE VTE Prophylaxis Ordered?: Yes (heparin) Plan Advance Directives: DNR VS, I&O, 24H, Fishbone Vital Signs/I&O Vital Signs Date Time Temp Pulse Resp B/P (MAP) Pulse Ox O2 Delivery O2 Flow Rate FiO2 10/18/16 08:00 97.0 91 24 131/63 (85) 94 Nasal Cannula 4.0 I&O- Last 24 Hours up to 6 AM 10/18/16 06:00 Intake Total 350 ml Output Total 3000 ml Balance -2650 ml Laboratory Data 24H LABS Laboratory Tests 2 10/17/16 10:13: Anion Gap 11, Glomerular Filtration Rate 6.5L, Calcium Level 8.7L, Phosphorus Level 6.2H, Aspartate Amino Transf (AST/SGOT) 34, Alanine Aminotransferase (ALT/ SGPT) 24, Alkaline Phosphatase 99, Total Bilirubin 0.3, Direct Bilirubin < 0.1, Total Creatine Kinase 16L, Creatine Kinase MB 1.0, Creatine Kinase MB Relative Index 6.25H, Troponin I 0.07, C-Reactive Protein, Quantitative 12.80H, Total Protein 6.8, Albumin 2.0L, Albumin/Globulin Ratio 0.42L 10/17/16 10:22: Neutrophils 71, Band Neutrophils 1, Lymphocytes (Manual) 9L, Monocytes (Manual) 3, Eosinophils (Manual) 3, Metamyelocytes 4H, Myelocytes 8H, Nucleated Red Blood Cells 1H, Atypical Lymphocytes 1, Platelet Estimate NORMAL, Anisocytosis 2 +, Macrocytosis 2+ 10/17/16 11:28: Blood Gas Bicarbonate Standard 22.5, Arterial Blood pH 7.250L, Arterial Blood Partial Pressure CO2 60.0H, Arterial Blood Partial Pressure O2 68.5L, Arterial Blood Total CO2 27.6, Arterial Blood HCO3 25.7, Arterial Blood Base Excess -2.1L , Arterial Blood Oxygen Saturation 89.8L 10/17/16 17:47: Blood Gas Bicarbonate Standard 21.5L, Arterial Blood pH 7.300L, Arterial Blood Partial Pressure CO2 47.6H, Arterial Blood Partial Pressure O2 96.9, Arterial Blood Total CO2 24.4, Arterial Blood HCO3 22.9, Arterial Blood Base Excess -3.6L , Arterial Blood Oxygen Saturation 97.1 10/17/16 18:12: Bedside Glucose (Misc Panel) 137H 10/17/16 20:53: Bedside Glucose (Misc Panel) 127H 10/18/16 00:17: Bedside Glucose (Misc Panel) 160H 10/18/16 02:45: Blood Urea Nitrogen 29H, Creatinine 5.16H, Sodium Level 135L, Potassium Level 4.3#, Chloride Level 97L, Carbon Dioxide Level 28, Anion Gap 10, Glomerular Filtration Rate 11.5L, Calcium Level 9.0, Phosphorus Level 4.2#, Magnesium Level 3.0H, Albumin 2.1L 10/18/16 05:58: Blood Gas Bicarbonate Standard 24.8, Arterial Blood pH 7.323L, Arterial Blood Partial Pressure CO2 53.1H, Arterial Blood Partial Pressure O2 88.3, Arterial Blood Total CO2 28.6, Arterial Blood HCO3 26.9H, Arterial Blood Base Excess 0.3 , Arterial Blood Oxygen Saturation 96.5 10/18/16 06:19: Bedside Glucose (Misc Panel) 89 CBC/BMP Laboratory Tests 10/17/16 10:13 10/17/16 10:22 Red Blood Count 2.90 L, Mean Corpuscular Volume 104.4 H, Mean Corpuscular Hemoglobin 31.6, Mean Corpuscular Hemoglobin Concent 30.2 L, Red Cell Distribution Width 15.1 H 10/18/16 02:45 Red Blood Count 3.07 L, Mean Corpuscular Volume 105.2 H, Mean Corpuscular Hemoglobin 31.3, Mean Corpuscular Hemoglobin Concent 29.8 L, Red Cell Distribution Width 15.2 H, Anion Gap 10 Darrian Bee MD Oct 18, 2016 09:18
[2016-10-18] MEDS ORDERED: D5W/0.45% SODIUM CHLORIDE 1,000 ML IV SCH (14:00)
[2016-10-18] MEDS: CHECK TO SEE IF PATIENT IS RECEIVING DIALYSIS TODAY AND REFER TO THE VANCOMYCIN ORDER XX SCH (14:45)
[2016-10-18] MEDS ORDERED: GLUCAGON FOR INJ 1 MG VIAL (J1610) SC PRN (15:15)
[2016-10-18] MEDS ORDERED: GLUCOSE 4 GM CHEW TABLET PO PRN (15:15)
[2016-10-18] MEDS ORDERED: DEXTROSE 50% 50 ML SYRINGE IV PRN (15:15)
[2016-10-18] MEDS ORDERED: VANCOMYCIN HCL 1,000 MG, VIAL MATE ADAPTER 1 EACH in D5W 250 ML IV SCH (16:00)
[2016-10-18] MEDS: ATORVASTATIN 20 MG TAB PO SCH (20:14)
--- NOTE | 2016-10-18 21:59 | IPN ---
DATE: 10/18/2016 SUBJECTIVE: The patient was seen and examined at the bedside today morning. The patient still is confused and obtunded. The patient was dialyzed yesterday. He tolerated the hemodialysis procedure well, along with three liters of ultrafiltration. However, he continues to be obtunded. REVIEW OF SYSTEMS: The patient is unable to provide any reliable review of systems. He is obtunded and drowsy. OBJECTIVE: VITAL SIGNS: Temperature is 97 degrees Fahrenheit, blood pressure is 131/63, pulse is 91, respiratory rate of 24, saturating 94% on nasal cannula at four liters. INTAKE AND OUTPUT: Urine output is not recorded. Ultrafiltration with hemodialysis was three liters. Weight in the bed scale was 81.3 kg yesterday. PHYSICAL EXAMINATION: GENERAL: The patient is obtunded, drowsy, unable to communicate. Follows very few commands. HEAD/NECK: Pupils equal, round, and reactive to light. Mucous membranes are dry. Neck is supple. There is no jugular venous distention (JVD). CARDIOVASCULAR: S1, S2. Tachycardia. Otherwise no murmur, rub, or gallop. RESPIRATORY: No rales or rhonchi. Bilateral equal air entry. ABDOMEN: Soft. Positive bowel sounds. Nontender. No ascites. No organomegaly. EXTREMITIES: The patient has dry gangrenous lesions on multiple toes bilaterally. Left lower extremity cellulitis is healing. The patient has edema of the right upper extremity. CENTRAL NERVOUS SYSTEM (ROLL DOUGH DIVIDER): The patient is obtunded. Follows very few commands. Unable to communicate. LABORATORY DATA: CBC showed a WBC of 13.1, hemoglobin 9.6, platelets of 366. ABG this morning showed pH of 7.32, pCO2 of 53, pO2 of 88, bicarbonate is 26.9, oxygen saturation 96.5. BMP this morning showed sodium 135, potassium 4.3, chloride 97, bicarbonate 28, BUN 29, creatinine 5.1. Magnesium is 3. Albumin 2.1. CURRENT INPATIENT MEDICATIONS: The patient's medications were all reviewed by me. Gabapentin was stopped. [place] pain medications were stopped yesterday. There is no other change in the medications today as compared with yesterday. ASSESSMENT: An 81-year-old male with past medical history of end-stage renal disease on hemodialysis, diabetes mellitus type 2, coronary artery disease and peripheral vascular disease, history of diastolic congestive heart failure, chronic obstructive pulmonary disease (COPD), and multiple other comorbidities. The patient was readmitted to the hospital yesterday with confusion, altered mental status, hypoxia and hypercapnia. PLAN: 1. Acute respiratory distress with hypercapnia and hypoxemia. The patient got dialysis yesterday. Three liters of ultrafiltration was done. Hypoxemia has improved. The patient is still slightly obtunded and has hypercapnia. Continue to hold the opioid pain medications at this time. 2. End-stage renal disease on hemodialysis. The patient's regular dialysis days are Thursday, Thursday, Thursday. Last hemodialysis was done yesterday according to his regular schedule. No urgent need of hemodialysis again today. 3. Hyperkalemia. Potassium level improved with hemodialysis. 4. Left lower extremity cellulitis. The patient continues to receive vancomycin 1 gram IV with hemodialysis. 5. Decreased oral intake and metabolic encephalopathy. The patient is nothing by mouth at this time. I have started the patient on dextrose 5% half normal saline (D5 half normal saline) at 40 mL an hour.
[2016-10-19] VITALS (9 sets, daily range): BP systolic 117–158; BP diastolic 52–73; PULSE 95–98
[2016-10-19] MEDS: ACETAMINOPHEN TAB 650MG DOSE (2X325MG) PO PRN (04:43)
[2016-10-19 05:13] LABS: MEAN CORPUSCULAR HEMOGLOBIN 32.4 pg (27.0-33.0); MEAN CORPUSCULAR HGB CONC 31.5 g/dl (32.0-36.5); MEAN CORPUSCULAR VOLUME 102.8 fl (80.0-96.0); WHITE BLOOD COUNT 10.8 K/mm3 (4.0-10.0)
[2016-10-19 05:28] LABS: ALBUMIN 2.2 GM/DL (3.2-5.2); CALCIUM LEVEL 9.2 MG/DL (8.8-10.2); CREATININE FOR GFR 7.33 MG/DL (0.70-1.30); GLOMERULAR FILTRATION RATE 7.7 (>35); PHOSPHORUS LEVEL 4.1 MG/DL (2.5-4.9); POTASSIUM SERUM 4.4 MEQ/L (3.5-5.1)
[2016-10-19] MEDS: ASPIRIN 81 MG CHEW TABLET PO SCH (08:33)
[2016-10-19] MEDS: PANTOPRAZOLE 40MG TAB (PROTONIX) PO SCH (08:33)
[2016-10-19] MEDS: CLOPIDOGREL 75 MG TAB PO SCH (08:33)
[2016-10-19] MEDS: predniSONE 5 MG TAB PO SCH (08:33)
[2016-10-19] MEDS: CALCIUM ACETATE 667 MG GELCAP PO SCH ×3 (08:33→17:09)
[2016-10-19] MEDS: FEBUXOSTAT 40 MG TABLET (ULORIC) PO SCH (08:33)
[2016-10-19] MEDS: MIRALAX *UNIT DOSE* 17GM PACKET PO SCH (08:34)
[2016-10-19] MEDS: HumaLOG INSULIN (NovoLOG) PER UNIT SC SCH ×4 (08:34→21:00)
[2016-10-19] MEDS: MULTIVITAMINS/MINERALS THERAP 1 TAB PO SCH (08:34)
[2016-10-19] MEDS ORDERED: ONDANSETRON 4 MG ORAL DISINTEGRATING TAB (S0181) PO PRN (12:30)
--- NOTE | 2016-10-19 13:58 | IPNPDOC ---
Subjective Date Seen The patient was seen on 10/19/16. Subjective Chief Complaint/HPI The patient is a 81-year-old male admitted with a reason for visit of Acute On Chronic Diastolic Chf,Confusion,Copd. Constitutional: Reports: Lethargy Pulmonary: Denies: Cough Gastrointestinal: Reports: Nausea, Denies: Vomiting Objective Physical Examination General Exam: Positive: Other (drowsy but eyes ope and responsive, reporting nausea ), Negative: Alert Eye Exam: Negative: Sclera icteric, Ptosis ENT Exam: Positive: Atraumatic, Mucous membr. moist/pink, Pharynx Normal, Other ENT (poor dentition) Neck Exam: Positive: Supple, Other (JVD is difficult to determine because of the patient's body habitus) Chest Exam: Positive: Rhonchi, Diminished, Negative: Rales (scattered rhonchi, clear with minimal intermittent cough), Wheezing Heart Exam: Positive: Regular Rhythm, Negative: Murmurs Abdomen Exam: Positive: Normal bowel sounds, Soft, Negative: Tenderness Extremity Exam: Positive: Other (pulses diminished/absent. black eschar over tips of several toes, bilaterlly) Skin Exam: Positive: Other skin issue (erythematous zone left lower leg looks stable; stable dry gangrene observed on toes.) Neuro Exam: Positive: Other (unresponsive, observed to move extremities spontaneously, facies symmetric, occasional moaning.) Assessment /Plan Problems (1) Acute respiratory failure with hypercapnia Status: Acute Response to Treatment: Improving (2) Unresponsiveness Status: Acute Response to Treatment: Stable, Improving Problem Text: CT brain no change. Possibly related to toxic encephalopathy associated with skin infection and mixed metabolic and respiratory acidosis. (3) Volume overload Status: Acute Problem Specific Plan: Consult Specialist (hemodialysis per Dr. Bonilla) (4) Leucocytosis Status: Acute Problem Specific Plan: Monitor Clinically (5) Erythema of lower limb Status: Chronic (6) Pulmonary hypertension Status: Chronic (7) Hyperlipidemia Status: Chronic (8) Chronic respiratory failure with hypoxia Status: Chronic (9) Anemia Status: Chronic Problem Text: Anemia associated with Stage 5 CKD (10) Gout Status: Chronic Problem Specific Plan: Monitor Clinically (11) CAD (coronary artery disease) Status: Chronic Problem Specific Plan: Monitor Clinically (12) Diabetes Status: Chronic Problem Specific Plan: Monitor Clinically (13) Diastolic CHF Status: Chronic Problem Specific Plan: Monitor Clinically Problem Text: 10/19/16 low potassium, being actively addressed by Dr. Bonilla with fluid administration with KCl 10/18/16primary treatment is through dialysis to correct fluid overload (14) COPD (chronic obstructive pulmonary disease) Status: Chronic Response to Treatment: Improving Problem Text: Although CO2 is a little higher, pH is improved, likely due to metabolic improvement from dialysis. Respirations are observed to be easy with intermittent clearing of secretions. (15) Anemia in chronic kidney disease Status: Chronic Response to Treatment: Stable Problem Specific Plan: Monitor Clinically (16) Peripheral vascular disease Status: Chronic Problem Specific Plan: Monitor Clinically (17) Hypertension Status: Chronic Problem Specific Plan: Monitor Clinically (18) Gangrene of foot Status: Chronic Problem Text: necrotic demarcation lines of toes noted. monitor for any evidence of associated cellulitis. currently receiving vancomycin post dialysis (19) ESRD (end stage renal disease) on dialysis Status: Chronic Response to Treatment: Improving Problem Specific Plan: Consult Specialist Problem Text: may be stable for transfer to Floor if Ok with Nephrology. Plan/VTE VTE Prophylaxis Ordered?: Yes (heparin) Plan Advance Directives: DNR VS, I&O, 24H, Fishbone Vital Signs/I&O Vital Signs Date Time Temp Pulse Resp B/P (MAP) Pulse Ox O2 Delivery O2 Flow Rate FiO2 10/19/16 11:30 97.4 90 20 126/52 (76) 91 Nasal Cannula 4.0 I&O- Last 24 Hours up to 6 AM 10/19/16 05:59 Intake Total 0 ml Output Total 0 ml Balance 0 ml Laboratory Data 24H LABS Laboratory Tests 2 10/18/16 16:45: Bedside Glucose (Misc Panel) 159H 10/18/16 20:18: Bedside Glucose (Misc Panel) 190H 10/19/16 04:47: Blood Urea Nitrogen 43H, Creatinine 7.33H, Sodium Level 135L, Potassium Level 4.4, Chloride Level 98, Carbon Dioxide Level 27, Anion Gap 10, Glomerular Filtration Rate 7.7L, Calcium Level 9.2, Phosphorus Level 4.1, Albumin 2.2L 10/19/16 11:40: Bedside Glucose (Misc Panel) 168H CBC/BMP Laboratory Tests 10/19/16 04:47 Red Blood Count 3.07 L, Mean Corpuscular Volume 102.8 H, Mean Corpuscular Hemoglobin 32.4, Mean Corpuscular Hemoglobin Concent 31.5 L, Red Cell Distribution Width 16.0 H, Anion Gap 10 Darrian Bee MD Oct 19, 2016 13:58
[2016-10-19] MEDS: CHECK TO SEE IF PATIENT IS RECEIVING DIALYSIS TODAY AND REFER TO THE VANCOMYCIN ORDER XX SCH (15:29)
[2016-10-19] MEDS: ATORVASTATIN 20 MG TAB PO SCH (21:00)
--- NOTE | 2016-10-19 22:16 | IPN ---
DATE: 10/19/2016 SUBJECTIVE: The patient was seen and examined at the bedside today in the morning. The patient is much more awake and alert today as compared with yesterday. He started eating yesterday as well. His intravenous (IV) fluids were held. He is hemodynamically stable. The patient is reporting that he is nauseated at this time. He ate about 75% of his breakfast today morning. REVIEW OF SYSTEMS: The patient denies any fevers, chills, rigors, headaches, chest pain, or shortness of breath. He reports that he is nauseated and feeling sick to his stomach, and he is feeling weak and reports inability to walk. Rest of review of systems is negative. OBJECTIVE: VITAL SIGNS: Temperature is 97.4 degrees Fahrenheit, blood pressure 126/52, pulse is 90, respiratory rate of 20, saturating 91% on nasal cannula at four liters. INTAKE AND OUTPUT: Urine output is not recorded. Weight in the bed scale is 81.4 kg. PHYSICAL EXAMINATION: GENERAL: The patient is awake, alert, oriented times two, sitting up in the bed, much more improved neurological status as compared with yesterday. HEAD/NECK: Pupils equal, round, and reactive to light. Mucous membranes are moist. Neck is supple. There is no jugular venous distention (JVD). CARDIOVASCULAR: S1, S2. Regular rate. No murmur, rub, or gallop. RESPIRATORY: No rales or rhonchi. Bilateral equal air entry. ABDOMEN: Soft. Positive bowel sounds. Nontender. No ascites. No organomegaly. EXTREMITIES: The patient has dry gangrenous lesion on multiple toes bilaterally which are healing. Left lower extremity cellulitis is healing. The patient has edema of the right upper extremity. CENTRAL NERVOUS SYSTEM (TIMBER SELECTOR): The patient is oriented times two. He is able to follow commands, and he is able to communicate today. LABORATORY DATA: CBC showed WBC 10.8, hemoglobin 9.9, platelets 373. BMP showed sodium 135, potassium 4.4, chloride 98, bicarbonate 27, BUN 43, creatinine 7.3, albumin 2.2. CURRENT INPATIENT MEDICATIONS: The patient's medications were all reviewed by me. There is no change in the medications today as compared with yesterday. ASSESSMENT: An 81-year-old male with past medical history of end-stage renal disease on hemodialysis, diabetes mellitus type 2, coronary artery disease, peripheral vascular disease, history of diastolic congestive heart failure, chronic obstructive pulmonary disease (COPD) and multiple other comorbidities. The patient was readmitted to the hospital with confusion, altered mental status, hypoxia, and hypercapnia, along with fluid overload. PLAN: 1. Acute respiratory distress with hypercapnia and hypoxemia: The patient's mental status is much more awake now. He is stable on nasal cannula at this time. He got ultrafiltration done on admission no urgent need of hemodialysis today. Next hemodialysis session will be done tomorrow. Avoid opioid pain medications at this time which make him more obtunded and confused. 2. End-stage renal disease on hemodialysis: Regular dialysis days are Thursday, Thursday, Thursday. Next hemodialysis session will be tomorrow as per regular schedule. 3. Left lower extremity cellulitis: Continue current dose of vancomycin with hemodialysis. 4. Nausea: The patient ate about 75% of his breakfast. I have given the patient Zofran oral dissolvable tablet as needed for nausea.
[2016-10-20] MEDS ORDERED: SLF 3 ML SYR IV PRN (02:00)
[2016-10-20 05:05] VITALS: BP 103/55
[2016-10-20 05:14] LABS: MEAN CORPUSCULAR HGB CONC 30.7 g/dl (32.0-36.5); MEAN CORPUSCULAR VOLUME 104.3 fl (80.0-96.0); RED CELL DISTRIBUTION WIDTH 16.4 % (11.5-14.5); WHITE BLOOD COUNT 10.2 K/mm3 (4.0-10.0)
[2016-10-20 05:32] LABS: ALBUMIN 2.2 GM/DL (3.2-5.2); CALCIUM LEVEL 9.4 MG/DL (8.8-10.2); CREATININE FOR GFR 9.03 MG/DL (0.70-1.30); PHOSPHORUS LEVEL 5.2 MG/DL (2.5-4.9); POTASSIUM SERUM 4.7 MEQ/L (3.5-5.1)
[2016-10-20] MEDS: SLF 3 ML SYR IV SCH ×3 (06:00→21:18)
[2016-10-20] MEDS: CALCIUM ACETATE 667 MG GELCAP PO SCH ×3 (06:38→18:01)
[2016-10-20] MEDS: PANTOPRAZOLE 40MG TAB (PROTONIX) PO SCH (06:39)
[2016-10-20] MEDS: predniSONE 5 MG TAB PO SCH (06:56)
[2016-10-20] MEDS: ASPIRIN 81 MG CHEW TABLET PO SCH (06:56)
[2016-10-20] MEDS: CLOPIDOGREL 75 MG TAB PO SCH (06:57)
[2016-10-20] MEDS: ACETAMINOPHEN TAB 650MG DOSE (2X325MG) PO PRN (06:58)
[2016-10-20] MEDS: FEBUXOSTAT 40 MG TABLET (ULORIC) PO SCH (06:58)
[2016-10-20] MEDS: MULTIVITAMINS/MINERALS THERAP 1 TAB PO SCH (06:58)
[2016-10-20] MEDS: HumaLOG INSULIN (NovoLOG) PER UNIT SC SCH ×4 (07:37→20:44)
[2016-10-20 07:40] VITALS: BP 162/84
--- NOTE | 2016-10-20 09:46 | IPNPDOC ---
Subjective Date Seen The patient was seen on 10/20/16. Subjective Chief Complaint/HPI The patient is a 81-year-old male admitted with a reason for visit of Acute On Chronic Diastolic Chf,Confusion,Copd. Events since last encounter Pt this morning c/o pain in his legs. He has no other concerns. Constitutional: Denies: Chills, Fever Pulmonary: Denies: Dyspnea, Cough Cardiovascular: Denies: Chest Pain, Palpitations Gastrointestinal: Denies: Nausea, Vomiting Neurological: Reports: Weakness Psych: Reports: Mood Normal Objective Physical Examination General Exam: Positive: Alert, No Acute Distress Eye Exam: Negative: Sclera icteric, Ptosis ENT Exam: Positive: Atraumatic, Mucous membr. moist/pink, Pharynx Normal Neck Exam: Positive: Supple, Other (JVD is difficult to determine because of the patient's body habitus) Chest Exam: Positive: Rhonchi (scattered rhonchi, clear with minimal intermittent cough), Diminished, Negative: Rales, Wheezing Heart Exam: Positive: Regular Rhythm, Negative: Murmurs Abdomen Exam: Positive: Normal bowel sounds, Soft, Negative: Tenderness Extremity Exam: Positive: Other (pulses diminished/absent. black eschar over tips of several toes, bilaterlly) Skin Exam: Positive: Other skin issue (erythematous zone left lower leg looks stable; stable dry gangrene observed on toes.) Neuro Exam: Positive: Other (unresponsive, observed to move extremities spontaneously, facies symmetric, occasional moaning.) Assessment /Plan Problems (1) Diastolic CHF Status: Chronic Problem Specific Plan: Monitor Clinically Problem Text: 10/20 - Dialysis today for fluid mgmt per Nephro. 10/19/16 low potassium, being actively addressed by Dr. Bonilla with fluid administration with KCl 10/18/16primary treatment is through dialysis to correct fluid overload (2) Acute respiratory failure with hypercapnia Status: Acute Response to Treatment: Improving (3) Unresponsiveness Status: Resolved Response to Treatment: Stable, Improving Problem Text: 10/20 - MS improved today, appears to be at baseline. 10/19 CT brain no change. Possibly related to toxic encephalopathy associated with skin infection and mixed metabolic and respiratory acidosis. (4) Volume overload Status: Acute Problem Specific Plan: Consult Specialist (hemodialysis per Dr. Bonilla) Problem Text: Mgmt per Nephro/dialysis, being dialyzed this morning. Plan for d /c back to [facility] in AM. (5) Leucocytosis Status: Acute Response to Treatment: Improving Problem Specific Plan: Monitor Clinically Problem Text: Slow, steady trend down, afebrile, receiving Vanco for cellulitis of the LLE with dialysis. (6) Erythema of lower limb Status: Chronic Problem Text: Currently being treated for LLE cellulitis with Vanco being administered after dialysis (7) CAD (coronary artery disease) Status: Chronic Problem Specific Plan: Monitor Clinically (8) Diabetes Status: Chronic Problem Specific Plan: Monitor Clinically (9) COPD (chronic obstructive pulmonary disease) Status: Chronic Response to Treatment: Improving Problem Text: Although CO2 is a little higher, pH is improved, likely due to metabolic improvement from dialysis. Respirations are observed to be easy with intermittent clearing of secretions. (10) Anemia in chronic kidney disease Status: Chronic Response to Treatment: Stable Problem Specific Plan: Monitor Clinically Problem Text: Assoc with end stage renal disease (11) Peripheral vascular disease Status: Chronic Problem Specific Plan: Monitor Clinically (12) Hypertension Status: Chronic Problem Specific Plan: Monitor Clinically (13) Gangrene of foot Status: Chronic Problem Text: necrotic demarcation lines of toes noted. monitor for any evidence of associated cellulitis. currently receiving vancomycin post dialysis (14) ESRD (end stage renal disease) on dialysis Status: Chronic Response to Treatment: Improving Problem Specific Plan: Consult Specialist Problem Text: may be stable for transfer to Floor if Ok with Nephrology. Plan/VTE VTE Prophylaxis Ordered?: Yes (heparin) Plan Advance Directives: DNR Family Medicine Attending Note: I saw and examined Mr. Rodriguez early this morning ; I agree with Arlene Sanchez's note above. Patient appears to be at baseline in terms of mental status, which waxes and wanes from sleepy to alert. He is receiving dialysis this morning, but otherwise I agree that he is stable for transfer to a medical bed and can hopefully be discharged to [facility] tomorrow. (KES ) VS, I&O, 24H, Fishbone Vital Signs/I&O Vital Signs Date Time Temp Pulse Resp B/P (MAP) Pulse Ox O2 Delivery O2 Flow Rate FiO2 10/20/16 07:41 Nasal Cannula 3.0 10/20/16 07:40 96.6 91 20 162/84 (110) 95 I&O- Last 24 Hours up to 6 AM 10/20/16 06:00 Intake Total 1560 ml Output Total 0 ml Balance 1560 ml Laboratory Data 24H LABS Laboratory Tests 2 10/19/16 11:40: Bedside Glucose (Misc Panel) 168H 10/19/16 16:17: Bedside Glucose (Misc Panel) 129H 10/19/16 21:55: Bedside Glucose (Misc Panel) 138H 10/20/16 04:32: Blood Urea Nitrogen 53H, Creatinine 9.03H, Sodium Level 137, Potassium Level 4.7 , Chloride Level 99, Carbon Dioxide Level 27, Anion Gap 11, Glomerular Filtration Rate 6.0L, Calcium Level 9.4, Phosphorus Level 5.2#H, Albumin 2.2L CBC/BMP Laboratory Tests 10/20/16 04:32 Red Blood Count 2.88 L, Mean Corpuscular Volume 104.3 H, Mean Corpuscular Hemoglobin 32.0, Mean Corpuscular Hemoglobin Concent 30.7 L, Red Cell Distribution Width 16.4 H, Anion Gap 11 ARLENE SANCHEZ PA-C Oct 20, 2016 09:46 MELCHOR SPENCE MD Oct 20, 2016 10:57
[2016-10-20] MEDS ORDERED: HEPARIN 1,000 UNITS/ML 10ML VIAL (FOR RADIOLOGY& DIALYSIS ONLY) IV ONE (11:45)
[2016-10-20] MEDS: MIRALAX *UNIT DOSE* 17GM PACKET PO SCH (12:46)
[2016-10-20 16:00] VITALS: BP 138/78
[2016-10-20] MEDS: CHECK TO SEE IF PATIENT IS RECEIVING DIALYSIS TODAY AND REFER TO THE VANCOMYCIN ORDER XX SCH (16:00)
[2016-10-20 19:59] VITALS: BP 114/57
[2016-10-20] MEDS: ATORVASTATIN 20 MG TAB PO SCH (21:18)
[2016-10-20 23:59] VITALS: BP 127/57
[2016-10-21 04:00] VITALS: BP 110/54
[2016-10-21] MEDS: SLF 3 ML SYR IV SCH (05:35)
[2016-10-21 05:45] LABS: MEAN CORPUSCULAR HEMOGLOBIN 31.9 pg (27.0-33.0); MEAN CORPUSCULAR HGB CONC 30.7 g/dl (32.0-36.5); WHITE BLOOD COUNT 9.2 K/mm3 (4.0-10.0)
[2016-10-21 06:04] LABS: ALBUMIN 2.2 GM/DL (3.2-5.2); CALCIUM LEVEL 9.1 MG/DL (8.8-10.2); CREATININE FOR GFR 5.79 MG/DL (0.70-1.30); GLOMERULAR FILTRATION RATE 10.1 (>35); PHOSPHORUS LEVEL 3.6 MG/DL (2.5-4.9)
--- NOTE | 2016-10-21 06:39 | IPN ---
DATE: 10/20/2016 SUBJECTIVE: The patient is seen and examined at the bedside today morning during hemodialysis procedure. He was tolerating the hemodialysis procedure well. No apparent distress at this time. REVIEW OF SYSTEMS: The patient is still slightly obtunded. He is unable to provide any reliable review of systems at this time. OBJECTIVE: VITAL SIGNS: Temperature is 96.6 degrees Fahrenheit, blood pressure is 138/78, pulse is 87, respiratory rate of 18, saturating 96% on nasal cannula at three liters. INTAKE AND OUTPUT: There is no urine output recorded. Bed scale weight is not available today. PHYSICAL EXAMINATION: GENERAL: The patient is awake, alert, oriented times two, lying in bed getting hemodialysis. No apparent distress. HEAD/NECK: Pupils equal, round, and reactive to light. Mucous membranes moist. Neck is supple. There is no jugular venous distention (JVD). CARDIOVASCULAR: S1, S2. Regular rate. No murmur, rub, or gallop. RESPIRATORY: No rales or rhonchi. Bilateral equal air entry. ABDOMEN: Soft. Positive bowel sounds. Nontender. No ascites. No organomegaly. EXTREMITIES: The patient has dry gangrenous lesions on multiple toes bilaterally. Left lower extremity cellulitis is healing, and the patient has 1+ edema of the bilateral upper extremities. 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 Following commands. LABORATORY DATA: CBC showed WBC 10.2, hematocrit 9.2, platelets are 366. BMP showed sodium 137, potassium 4.7, chloride 99, bicarbonate 27, BUN 53, creatinine 9, phosphorus 5.2, albumin 2.2. CURRENT INPATIENT MEDICATIONS: The patient's medications were all reviewed by me. There is no change in the medications today as compared with yesterday. ASSESSMENT: An 81-year-old male with past medical history of end-stage renal disease on hemodialysis, diabetes mellitus type 2, coronary artery disease, peripheral vascular disease, history of diastolic congestive heart failure, chronic obstructive pulmonary disease (COPD), and multiple other comorbidities. The patient was readmitted to the hospital with confusion, altered mental status, hypoxemia and hypercapnia, along with fluid overload. PLAN: 1. Acute respiratory distress with hypercapnia and hypoxemia: The patient's mental status is much more awake and alert. He is stable at this time on nasal cannula. Avoid opioid pain medications for this patient. We are doing more ultrafiltration which will help improve his hypoxemia further. 2. End-stage renal disease on hemodialysis: The patient is being dialyzed according to her Thursday, Thursday, Thursday schedule. He will be dialyzed against a 2K bath. Ultrafiltration goal will be 1.5 liters as tolerated by his blood pressure. 3. Left lower extremity cellulitis: The patient is on vancomycin 1 gram intravenous (IV) with hemodialysis. Last dose will be on 10/25/2016.
[2016-10-21 07:30] VITALS: BP 155/79
[2016-10-21] MEDS: HumaLOG INSULIN (NovoLOG) PER UNIT SC SCH (07:30)
[2016-10-21] MEDS: MIRALAX *UNIT DOSE* 17GM PACKET PO SCH (08:17)
[2016-10-21] MEDS: ASPIRIN 81 MG CHEW TABLET PO SCH (08:17)
[2016-10-21] MEDS: FEBUXOSTAT 40 MG TABLET (ULORIC) PO SCH (08:17)
[2016-10-21] MEDS: PANTOPRAZOLE 40MG TAB (PROTONIX) PO SCH (08:18)
[2016-10-21] MEDS: predniSONE 5 MG TAB PO SCH (08:18)
[2016-10-21] MEDS: CLOPIDOGREL 75 MG TAB PO SCH (08:18)
[2016-10-21] MEDS: MULTIVITAMINS/MINERALS THERAP 1 TAB PO SCH (08:18)
[2016-10-21] MEDS: CALCIUM ACETATE 667 MG GELCAP PO SCH (08:18)
--- NOTE | 2016-10-21 20:03 | DSES ---
DATE OF ADMISSION: 10/17/2016 DATE OF DISCHARGE: 10/21/2016 PRIMARY CARE PROVIDER: Dr. Volodymyr Clark ATTENDING TODAY: Dr. Luisa Cooper HISTORY: This is an 81-year-old male patient, resident at [facility], who has a history of end-stage renal disease, who presented from [facility] to [facility] just 24 hours after discharge after being found obtunded the morning of his presentation. He was found to be in acute respiratory acidosis upon arrival to the emergency room, likely secondary to fluid overload. Nephrology was consulted, and they immediately began dialysis. He has a history of multiple gangrenous toes with a recent history of cellulitis of the left lower extremity for which he was receiving intravenous (IV) vancomycin after dialysis. His last dose of this will be 10/25/2016 per recommendations from infectious disease. His acute respiratory acidosis with hypercarbia improved after dialysis. His respiratory status is well as is mental status also improved. He also had multiple electrolyte abnormalities, which improved, associated with his dialysis as well. During his hospitalization, he did remain medically stable. Nephrology has been active in managing his fluid status. He did undergo a CT of his brain secondary to his mental status changes, which was without any acute pathology. He did have mild leukocytosis, although as noted, he recently has been treated for cellulitis and has multiple gangrenous toes, had been on IV antibiotics at the time of admission. Otherwise, his routine at-home medications were continued during his hospitalization. DISCHARGE DIAGNOSES: Acute respiratory failure with hypercapnia. Acute on chronic diastolic congestive heart failure. Altered mental status. Cellulitis of left lower extremity. Diabetes mellitus, type 2. Chronic obstructive pulmonary disease (COPD). Anemia of chronic disease. Peripheral vascular disease. Hypertension. End-stage renal disease. DISCHARGE MEDICATIONS: Include: - acetaminophen 650 mg ever 4 hours as needed for pain or fever by mouth or per rectum - [place] 5/325 one tablet every 4 hours as needed for pain and three times weekly before dialysis. - albuterol sulfate nebulizer 2.5 mg inhaled every 6 hours as needed for dyspnea - DuoNeb inhaled every 6 hours as needed for dyspnea - aspirin 81 mg daily - atorvastatin 20 mg daily - Dulcolax 10 mg per rectum daily as needed for constipation - calcium acetate 667 mg with meals - Plavix 75 mg daily - Fleet enema daily per rectum as needed for constipation - vitamin D 50,000 units once monthly - Uloric 40 mg daily - gabapentin 30 mg twice daily - NovoLog sliding scale - Lantus 10 units before bed - Milk of Magnesia 30 mL by mouth daily as needed for constipation - multivitamin one tablet daily - nitroglycerin 0.4 mg sublingually every 5 minutes as needed for chest pain - Protonix 40 mg daily - MiraLAX 17 grams daily as needed for constipation - prednisone 5 mg daily - vancomycin 1000 mg before dialysis; he will receive a dose on 10/22/2016 as well as 10/24/2016. DISCHARGE PLAN: The patient will be discharged to [facility] where he resides. He will followup with Dr. Clark. He will followup with Nephrology for his end-stage renal disease. He is scheduled for dialysis on Thursday, Thursday and Thursday. His diet should be renal. His activity should be as tolerated. Edited 10/31/2016 david
[2016-11-11] MEDS ORDERED: VITAMIN D 50,000 UNITS CAPSULE (ERGOCALCIFEROL 1.25MG) PO SCH (09:00)
== END 2016-10-21 10:50 | DRG 291 ==
LOC: M ED 08:13 → EDBD 08:13 → M ED INP 16:15 → M PCU 20:12
PROVIDERS: ADMIT Internal Medicine; ATTEND Family Medicine
PROC: 5A1D60Z (ICD-10-PCS; principal; 2016-10-17)
DX: I13.2 Hypertensive heart and chronic kidney disease with heart failure and with stage 5 chronic kidney disease, or end stage renal disease (principal); N18.6 End stage renal disease; J96.02 Acute respiratory failure with hypercapnia; I50.33 Acute on chronic diastolic (congestive) heart failure; G93.41 Metabolic encephalopathy; J96.11 Chronic respiratory failure with hypoxia; E11.52 Type 2 diabetes mellitus with diabetic peripheral angiopathy with gangrene; E87.2 Acidosis; L03.116 Cellulitis of left lower limb; E87.1 Hypo-osmolality and hyponatremia; J44.9 Chronic obstructive pulmonary disease, unspecified; E87.8 Other disorders of electrolyte and fluid balance, not elsewhere classified; I25.10 Atherosclerotic heart disease of native coronary artery without angina pectoris; E83.51 Hypocalcemia; E11.40 Type 2 diabetes mellitus with diabetic neuropathy, unspecified; D63.1 Anemia in chronic kidney disease; D72.829 Elevated white blood cell count, unspecified; E83.39 Other disorders of phosphorus metabolism; I27.2 Other secondary pulmonary hypertension; E78.5 Hyperlipidemia, unspecified; M10.30 Gout due to renal impairment, unspecified site; E87.5 Hyperkalemia; Z99.2 Dependence on renal dialysis; Z98.62 Peripheral vascular angioplasty status; Z79.4 Long term (current) use of insulin; Z79.52 Long term (current) use of systemic steroids; Z79.899 Other long term (current) drug therapy; Z79.891 Long term (current) use of opiate analgesic

== ENCOUNTER 2016-11-19 09:33 | Inpatient (IN) | payer MEDICARE, MEDICAID ==
[~2016-11-19] VITALS: Ht 162.6 cm; Wt 88.8 kg
[2016-11-19] MEDS ORDERED: IPRATROPIUM 0.5MG/ALBUTEROL 2.5MG INH SOL UD 3ML (DUONEB)(J7620) As Ordered ONE (10:30)
[2016-11-19] MEDS ORDERED: IPRATROPIUM 0.5MG/ALBUTEROL 2.5MG INH SOL UD 3ML (DUONEB)(J7620) NEB ONE (10:30)
[2016-11-19 10:35] LABS: BASO # 0.1 K/mm3 (0.0-0.2); BASO % 0.6 % (0.0-1.0); EOS # 0.3 K/mm3 (0.0-0.50); EOS % 2.1 % (0.0-3.0); LARGE UNSTAINED CELL # 0.2 K/mm3 (0.0-0.4); LARGE UNSTAINED CELL % 1.4 % (0.0-4.0); LYMPH # 1.2 K/mm3 (1.5-4.5); LYMPH % 6.4 % (24.0-44.0); MEAN CORPUSCULAR HEMOGLOBIN 31.9 pg (27.0-33.0); MEAN CORPUSCULAR HGB CONC 30.7 g/dl (32.0-36.5); MEAN CORPUSCULAR VOLUME 103.9 fl (80.0-96.0); MONO # 0.8 K/mm3 (0.0-0.8); MONO % 5.4 % (0.0-5.0); NEUTROPHILS % 84.1 % (36.0-66.0); PLATELET COUNT, AUTOMATED 280 k/mm3 (150-450); RED CELL DISTRIBUTION WIDTH 16.9 % (11.5-14.5); WHITE BLOOD COUNT 15.5 K/mm3 (4.0-10.0)
[2016-11-19 10:43] LABS: ALBUMIN 2.8 GM/DL (3.2-5.2); ALBUMIN/GLOBULIN RATIO 0.64 (1.00-1.93); ALKALINE PHOSPHATASE 71 U/L (45-117); ALT/SGPT 13 U/L (12-78); ANION GAP 8 MEQ/L (8-16); AST/SGOT 18 U/L (15-37); BILIRUBIN,DIRECT < 0.1 MG/DL (0.0-0.2); BILIRUBIN,TOTAL 0.3 MG/DL (0.2-1.0); BLOOD UREA NITROGEN 40 MG/DL (7-18); CARBON DIOXIDE LEVEL 26 MEQ/L (21-32); CHLORIDE LEVEL 104 MEQ/L (98-107); CREATININE FOR GFR 6.74 MG/DL (0.70-1.30); GLOMERULAR FILTRATION RATE 8.4 (>35); GLUCOSE, FASTING 122 MG/DL (83-110); SODIUM LEVEL 138 MEQ/L (136-145); TOTAL PROTEIN 7.2 GM/DL (6.4-8.2)
[2016-11-19 10:45] LABS: POTASSIUM SERUM 5.9 MEQ/L (3.5-5.1)
--- NOTE | 2016-11-19 11:19 | REP ---
PORTABLE CHEST: AP portable view of the chest is performed and compared to multiple prior exams, the most recent of which is 10/17/2016. There is mild cardiomegaly and pulmonary venous hypertension. Chronic interstitial changes appear stable with no new infiltrate. Mediastinal silhouette is unchanged. Right central venous catheter is seen, which is a double-lumen catheter. The tip is in the superior vena cava. There is mild calcification and tortuosity of the thoracic aorta. IMPRESSION: Mild cardiomegaly and chronic interstitial findings without evidence of a new infiltrate. Signed by Kris Stone MD 11/19/2016 04:55 P
[2016-11-19] MEDS ORDERED: PIPERACILLIN/TAZOBACTAM SOD 4.5 GM in D5W MINI-BAG PLUS 50 ML IV ONE (11:45)
[2016-11-19] MEDS ORDERED: NS 250 ML IV ONE (11:45)
[2016-11-19] MEDS ORDERED: VANCOMYCIN HCL 1,000 MG, VIAL MATE ADAPTER 1 EACH in D5W 250 ML IV ONE (13:00)
--- NOTE | 2016-11-19 13:03 | REP ---
BILATERAL FEET: AP and lateral views of bilateral feet performed. No fracture or dislocation is seen. However, there appears to be cortical destruction of the distal aspect of the 1st distal phalanx both on the right and on the left, compatible with osteomyelitis. Diffuse vascular calcifications are present. IMPRESSION: Findings compatible with osteomyelitis involving the 1st distal phalanx both on the right and on the left. Signed by Kris Stone MD 11/19/2016 05:03 P
[2016-11-19 13:42] LABS: YEAST LIKE CELL URINE AUTO MODERATE
[2016-11-19] MEDS ORDERED: HEPARIN 1,000 UNITS/ML 10ML VIAL (FOR RADIOLOGY& DIALYSIS ONLY) IV ONE (14:00)
[2016-11-19] MEDS ORDERED: IPRATROPIUM 0.5MG/ALBUTEROL 2.5MG INH SOL UD 3ML (DUONEB)(J7620) INH PRN (14:15)
[2016-11-19] MEDS ORDERED: BISACODYL 10 MG SUPP PR PRN (14:15)
[2016-11-19] MEDS ORDERED: ACETAMINOPHEN 650 MG SUPP PR PRN (14:15)
[2016-11-19] MEDS ORDERED: MOM 30ML SUSPENSION UDC PO PRN (14:15)
[2016-11-19] MEDS ORDERED: FLEET ENEMA PR PRN (14:15)
[2016-11-19] MEDS ORDERED: ALBUTEROL SULFATE 2.5 MG/0.5 ML INH NEB SOLN INH PRN (14:15)
[2016-11-19] MEDS ORDERED: ACETAMINOPHEN 325 MG TAB PO PRN (14:15)
[2016-11-19] MEDS ORDERED: NITROGLYCERIN 0.4 MG SUBL TABLET SL PRN (14:15)
[2016-11-19] MEDS ORDERED: DEXTROSE 50% 50 ML SYRINGE IV PRN (14:30)
[2016-11-19] MEDS ORDERED: GLUCOSE 4 GM CHEW TABLET PO PRN (14:30)
[2016-11-19] MEDS ORDERED: GLUCAGON FOR INJ 1 MG VIAL (J1610) SC PRN (14:30)
[2016-11-19] MEDS: CALCIUM ACETATE 667 MG GELCAP PO SCH (16:00)
[2016-11-19] MEDS ORDERED: cefTAZidime 1 GM in D5W MINI-BAG PLUS 100 ML IV ONE (16:00)
[2016-11-19] MEDS: CHECK TO SEE IF PATIENT IS RECEIVING DIALYSIS TODAY AND REFER TO THE VANCOMYCIN ORDER XX SCH ×2 (16:00)
[2016-11-19] MEDS ORDERED: CHECK TO SEE IF PATIENT IS RECEIVING DIALYSIS TODAY AND REFER TO THE VANCOMYCIN ORDER XX SCH (16:00)
--- NOTE | 2016-11-19 19:14 | CR ---
DATE OF CONSULTATION: 11/19/2016 REQUESTING PHYSICIAN: Dr. Stone in the emergency room. CONSULTING PHYSICIAN: Dr. Bonilla REASON FOR CONSULTATION: Management of end-stage renal disease, on hemodialysis. CHIEF COMPLAINT: Patient presented to the emergency room today with fever spikes and feeling awful. HISTORY OF PRESENT ILLNESS: Mr. Nnamdi Rodriguez is an 81-year-old male with past medical history of end-stage renal disease, on hemodialysis every Thursday, Thursday, Thursday, well known to nephrology service from multiple previous admissions and from outpatient hemodialysis center. Patient has multiple comorbidities as mentioned below. Patient presented to the emergency room after he woke up this morning with fever spikes. He said that he had a fever of 102 degrees Fahrenheit at home. He was having chills and rigors. He felt very weak and tired and awful. He presented to the emergency room today. He was found to have leukocytosis with a white cell count of 15,000, and he got an x-ray of the lower extremities done, which showed possible osteomyelitis in the big toes in both lower extremities. Today is patient's regular day of dialysis, so nephrology service was called for further help in the management of this patient and for arrangement of hemodialysis. PAST MEDICAL HISTORY: 1. End-stage renal disease, on hemodialysis every Thursday, Thursday, Thursday. 2. Hypertension. 3. Peripheral vascular disease. 4. History of multiple dry gangrenous lesions in bilateral toes because of a previous left heart catheterization. 5. History of chronic obstructive pulmonary disease (COPD)., 6. Coronary artery disease. 7. Diastolic congestive heart failure. 8. Insulin-dependent diabetes. 9. Gout. 10. Hyperlipidemia. 11. History of an infected left upper arm arteriovenous (AV) fistula. 12. History of left leg cellulitis. PAST SURGICAL HISTORY: 1. Patient is status post excision of the infected left upper arm AV fistula. 2. Status post left heart catheterization in the past. 3. 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 ALLERGIES: No known drug allergies. FAMILY HISTORY: Patient is unable to provide any significant family history. SOCIAL HISTORY: Patient was a resident of [facility], but he is reporting that he is living at home at this time. There is no history of illicit drug abuse or alcohol abuse. REVIEW OF SYSTEMS: CONSTITUTIONAL: Patient reports very weak, tired, and having fever with chills. EYES: He denies any blurry vision or double vision. ENT: He denies any dysphagia, odynophagia, or ear discharge. CARDIOVASCULAR: He denies any chest pain or palpitations. RESPIRATORY: He denies any shortness of breath or wheezing. GASTROINTESTINAL: He denies any nausea, vomiting, or pain in abdomen. GENITOURINARY: He denies any dysuria, hematuria, or retention. MUSCULOSKELETAL: Patient reports gangrene in the bilateral lower extremity toes. He reports weakness. CENTRAL NERVOUS SYSTEM: He denies any seizure disorder or strokes. PSYCHIATRIC: He denies any depression or anxiety. SKIN: Patient reports erythema of the left leg. Otherwise he denies any new ulcerations. HEMATOLOGIC/ONCOLOGIC: He reports history of anemia secondary to end-stage renal disease. ENDOCRINE: Patient is a known diabetic, and he has history of secondary hyperparathyroidism. All other review of systems is negative. PHYSICAL EXAMINATION: GENERAL: Patient is awake, alert, oriented times three, lying in bed. No apparent distress at this time. VITAL SIGNS: Temperature is 97.4 degrees Fahrenheit, blood pressure is 150/82, pulse is 110, respiratory rate of 18, saturating 95% on room air. HEAD AND NECK: Extraocular muscles intact. Pupils equally round and reactive to light. Mucous membranes are moist. Neck is supple. There is no jugular venous distention (JVD). CARDIOVASCULAR: S1, S2, regular rate. No murmur, rub, or gallop. RESPIRATORY: Chest is clear to auscultation bilaterally. Bilateral equal air entry. No rales or rhonchi. AV ACCESS: Patient has a right internal jugular (IJ) tunneled hemodialysis catheter. ABDOMEN: Soft. Positive bowel sounds. Nontender. No ascites. No organomegaly. MUSCULOSKELETAL: Normal range of movement of bilateral lower extremities; however, he does have dry gangrenous lesions on multiple toes on both sides, and big toe on both feet are tender and slightly erythematous. CENTRAL NERVOUS SYSTEM: No focal neurological deficit. Power is 5/5 in bilateral upper extremities. PSYCHIATRIC: Normal mood and affect. SKIN: Patient has mild erythema of the left leg; otherwise no active ulcerations. LABORATORY REVIEW: CBC showed a WBC 15.5, hemoglobin 10.8, platelets are 280. BMP showed sodium 138, potassium 5.9, chloride 104, bicarbonate 26, BUN 40, creatinine is 6.7. Lactic acid 2.4, albumin 2.8. Microbiology: Blood cultures are pending. Urine culture is ending. Influenza is negative. IMAGING: Chest x-ray done today morning showed mild cardiomegaly with chronic interstitial findings. No acute infiltrate. X-ray of bilateral feet showed findings compatible with osteomyelitis involving the first digital phalanx on the right and left. CURRENT INPATIENT MEDICATIONS: - Patient was given a dose of ceftazidime 1 gram IV and vancomycin 1 gram IV. - He is on Tylenol as needed. - Proventil as needed - aspirin 81 mg daily - Lipitor 20 mg at bedtime - Dulcolax as needed - PhosLo one tablet three times a day with meals - Plavix 75 mg daily - Uloric 40 mg daily - gabapentin 300 mg twice a day - milk of magnesia as needed - multivitamin daily - Protonix 40 mg daily - MiraLax one packet daily - prednisone 5 mg daily - Fleet enema as needed ASSESSMENT: Mr. Nnamdi Rodriguez is an 81-year-old male with past medical history of end-stage renal disease, on hemodialysis, insulin-dependent diabetic, peripheral vascular disease, gout, admitted at this time with fever and sepsis. PLAN: 1. End-stage renal disease, on hemodialysis. Today is patient's regular day of dialysis. I have arranged for his hemodialysis to be done once patient is admitted. Patient will be dialyzed for 3 hours, and we shall try to remove some fluid as tolerated by his the patient, but given his lactic acidosis and fever, I shall not be aggressive with the fluid removal. 2. Hyperkalemia. Potassium is 5.9. He will be dialyzed against a 1K bath. Hyperkalemia is expected to improve after hemodialysis. 3. Sepsis and possible osteomyelitis in bilateral big toes. Patient was already given a dose of ceftazidime and vancomycin. He was also given a dose of Zosyn 4.5 gram IV. We need to get podiatry on board for further management of osteomyelitis in the big toes. 4. Anemia and end-stage renal disease. Hemoglobin is 10.8, which is acceptable at this time. Patient will be given a dose of Aranesp with next hemodialysis session. 5. Chronic steroid dependence. Continue current dose of prednisone 5 mg by mouth daily. 6. 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 Continue current dose of Uloric 40 mg by mouth daily. 7. Chronic kidney disease, mineral bone disease. Continue current dose of PhosLo one tablet by mouth three times a day with meals. Thank you for involving us in the care of this patient. Plan of care was discussed with the ER physician, Dr. Stone. Urgent hemodialysis was arranged today. Patient will be dialyzed as soon as he is admitted to the hospital.
--- NOTE | 2016-11-19 20:29 | ECGEPIP ---
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
[2016-11-19 20:35] VITALS: BP 138/90
--- NOTE | 2016-11-19 20:40 | REPUSA ---
HISTORY: CELLULITIS, FEVER,EVALUATE TOES FOR OSTEO. TECHNIQUE: Multisequence, multiplanar MRI imaging of right foot without contrast. FINDINGS: There is some technical limitation because of patient motion artifact. There is no detecta ble evidence of fracture, destructive bony lesion, or marrow abnormality seen in the right foot and t here is no diagnostic evidence of osteomyelitis in the toes. The flexor and celebrity manager tendons are intact. Medial and lateral collateral ligaments in the foot and toes appear to be intact. No soft tissue mass lesion is seen. There is suggestion of soft tissue ed rose in the foot, but no walled off abscess or hematoma is seen. IMPRESSION: 1. Examination is limited because of patient motion artifact with no diagnostic evidence of osteomyelitis, fracture, or joint space instability seen in the right foot. 2. The flexor and extensor tendons and ligamentous structures in the foot are intact without evidenc e of tear. 3. There is edema in the soft tissues at the plantar surface of the metatarsals but no walled off ab scess or hematoma is seen. Clinical correlation and followup imaging may be warranted as clinically indicated.
--- NOTE | 2016-11-19 21:50 | REPUSA ---
HISTORY: CELLULITIS, FEVER, R/O OSTEO IN TOES. TECHNIQUE: Multisequence, multiplanar MRI imaging of left foot without contrast. FINDINGS: The examination is technically limited because of patient motion artifact. There are multiple subtle abnormalities in the distal phalanges, suspicious for osteomyelitis, with b one destruction at the distal cortical margin of the first distal phalanx measuring approximately 6 mm seen on the coronal sequence, series 6, image 18 and on the STIR sequence, series 7 image 19 and o n the sagittal sequence, series 5, image 6, suspicious for osteomyelitis; at the second distal phalan x seen on series 6, image 19 and series 7 image 19; and at the fourth distal phalanx on series 6 imag e 17 and series 7 image 17 and sagittal sequence series 5, image 14. There also is suggestion of abn ormal marrow signal in the third distal phalanx seen on the sagittal STIR sequence series 5, image 12 suspicious for osteomyelitis. The proximal phalanges and metatarsals and tarsal bones are normal with no marrow abnormality or evid ence of osteomyelitis. The flexor and extensor tendons are intact and the ligamentous structures are intact without evidence of tear. No other soft tissue mass lesions are seen. IMPRESSION: The examination is limited because of patient motion artifact obscuring good spatial reso lution at the distal phalanges, and also limited without intravenous contrast, but there is suggestio n of abnormal signal in the distal first, second, third, and fourth phalanges as discussed above, whi ch should be clinically correlated for osteomyelitis. Clinical correlation and additional MRI imaging with intravenous contrast may be helpful if clinicall y indicated.
[2016-11-19] MEDS: HumaLOG INSULIN (NovoLOG) PER UNIT SC SCH (22:25)
[2016-11-19] MEDS: ASPIRIN 81 MG CHEW TABLET PO SCH (22:36)
[2016-11-19] MEDS: predniSONE 5 MG TAB PO SCH (22:37)
[2016-11-19] MEDS: MIRALAX *UNIT DOSE* 17GM PACKET PO SCH (22:37)
[2016-11-19] MEDS: CLOPIDOGREL 75 MG TAB PO SCH (22:37)
[2016-11-19] MEDS: FEBUXOSTAT 40 MG TABLET (ULORIC) PO SCH (22:38)
[2016-11-19] MEDS: PANTOPRAZOLE 40MG TAB (PROTONIX) PO SCH (22:38)
[2016-11-19] MEDS: MULTIVITAMINS/MINERALS THERAP 1 TAB PO SCH (22:38)
[2016-11-19] MEDS: GABAPENTIN 300 MG CAP PO SCH (22:44)
[2016-11-19] MEDS: ATORVASTATIN 20 MG TAB PO SCH (22:44)
[2016-11-20] MEDS ORDERED: cefTAZidime 1 GM in D5W MINI-BAG PLUS 100 ML IV SCH ×2
[2016-11-20 02:28] VITALS: BP 129/56
--- NOTE | 2016-11-20 02:43 | HPEPDOC ---
General Date of Admission Nov 19, 2016 at 14:01 Attending Physician: JASWINDER MIRANDA DO Chief Complaint The patient is a 81-year-old male admitted with a reason for visit of Cellulitis ,Fever,Osteomyelitis Ankle Or Foot,Toe G. History of Present Illness Patient is an 81 year old male who lives at [facility], who states that today he woke up feeling "blah," and with a poor appetite. He was found to have a temperature of 102.7, and was brought to the emergency department. The ED identified a left leg cellulitis (apparently improving from previously marked borders, though the patient could give little history) and multiple gangrenous toes as possible sources of infection. Plain film in the ED was suggestive of osteomyelitis at least in the bilateral great toes, and family medicine was called to admit the patient. Home Medications Scheduled (Aspirin) 81 Mg Chw, 81 MG PO DAILY, (Reported) Acetaminophen/Hydrocodone ([place] 5-325 mg) 1 Tab Tab, 1 TAB PO 3XW, (Reported) MON WED THU BEFORE DIALYSIS AT 1430 Atorvastatin Calcium (Lipitor) 20 Mg Tab, 20 MG PO QHS, (Reported) Calcium Acetate (Calcium Acetate) 667 Mg Cap, 667 MG PO TID, (Reported) WITH MEALS Clopidogrel Bisulfate (Clopidogrel) 75 Mg Tab, 75 MG PO DAILY, (Reported) Ergocalciferol (Vitamin D) 50,000 Unit Cap, 50,000 UNIT PO QMONTH, (Reported) 1ST OF EVERY MONTH Febuxostat (Uloric) 40 Mg Tab, 40 MG PO DAILY, (Reported) Gabapentin (Gabapentin) 300 Mg Cap, 300 MG PO BID, (Reported) Insulin Aspart (Novolog) 100 U/Ml Inj, 0 SC AC, (Reported) Per Sliding Scale Insulin Glargine (Lantus) 100 Unit/Ml Inj, 10 UNIT SQ QHS, (Reported) Multivitamins *[facility] STOCKED* (Thera M Plus *[facility] STOCKED*) 1 Tab Tab, 1 TAB PO DAILY, (Reported) Pantoprazole Sodium Sesquihydr (Protonix) 40 Mg Tab, 40 MG PO DAILY, (Reported) Polyethylene Glycol (Miralax) 1 Pow Pow, 17 GM PO DAILY, (Reported) Prednisone (Prednisone) 5 Mg Tab, 5 MG PO DAILY, (Reported) Scheduled PRN (Enema Disposable) 1 Tejinder Tejinder, 1 TEJINDER HI DAILY PRN for BOWEL CARE/CONSTIPATION, ( Reported) Acetaminophen (Tylenol) 325 Mg Tab, 650 MG PO Q4H PRN for PAIN OR FEVER, ( Reported) Acetaminophen (Acephen) 650 Mg Sup, 650 MG HI Q4H PRN for PAIN, (Reported) Acetaminophen/Hydrocodone ([place] 5-325 mg) 1 Tab Tab, 1 TAB PO Q4H PRN for PAIN, (Reported) Albuterol Sulfate (Albuterol Sulfate) 2.5 Mg/3 Ml Nebu, 2.5 MG INH Q6H PRN for DYSPNEA, (Reported) Albuterol/Ipratropium (Ipratropium [place]/Albut 0.5-2.5 (3) mg/3Ml) 1 Isac Isac, 1 ISAC INH Q6H PRN for SHORTNESS OF BREATH, (Reported) Bisacodyl (Dulcolax) 10 Mg Sup, 10 MG HI DAILY PRN for CONSTIPATION, (Reported) Milk Of Magnesia (Milk of Magnesia) 1,200 Mg/15 Ml Karen, 30 ML PO DAILY PRN for CONSTIPATION, (Reported) Nitroglycerin (Nitroglycerin) 0.4 Mg Sub, 0.4 MG SL Q5MP PRN for CHEST PAIN, ( Reported) Allergies Coded Allergies: No Known Drug Allergy (Verified Allergy, Unknown, 07/19/12) Past Medical History Medical History ESRD on dialysis peripheral vascular disease, s/p iliac and celiac artery stents coronary artery disease, s/p GA diastolic CHF COPD hyperlipidemia DM type 2, insulin dependent, with neuropathy gout Surgical History stents (as above) and placement of fistula for hemodialysis Family History Significant Family History: Heart disease Social History * Smoker: former Smoker Alcohol: other (former) Psychosocial History: Schizophrenia Lives at [facility]. States he used to drink and smoke (2 ppd from age 16 to age 67.) Review of Symptoms Constitutional: Reports: Fever, Malaise ENT: Reports: Head Aches Skin: Reports: Rash Pulmonary: Denies: Dyspnea, Cough Cardiovascular: Denies: Chest Pain Gastrointestinal: Denies: Nausea, Vomiting, Diarrhea, Constipation Genitourinary: Denies: Dysuria Hematologic: Denies: Bleeding Excessively Neurological: Reports: Weakness, Numbness Psych: Reports: Mood Normal, Memory Issues (admits poor memory but A&O x3) Physical Examination General Exam: Positive: Alert, Cooperative, Other (ill-appearing) Eye Exam: Positive: PERRLA, Conjunctiva & lids normal ENT Exam: Positive: Atraumatic, Mucous membr. moist/pink, Pharynx Normal Neck Exam: Positive: Supple Chest Exam: Positive: Clear to auscultation, Normal air movement Heart Exam: Positive: Rate Normal Abdomen Exam: Positive: Normal bowel sounds, Soft, Negative: Tenderness Extremity Exam: Positive: Tenderness, Other (dry gangrene with eschar ) Skin Exam: Positive: Nl turgor and temperature, Other skin issue (erythema L soliz (receded from previously marked borders)) Neuro Exam: Positive: Normal Speech, Normal Tone Psych Exam: Positive: Mental status NL, Mood NL, Oriented x 3, Negative: Memory Intact (but alert and oriented x 3) Vital Signs Vital Signs Date Time Temp Pulse Resp B/P (MAP) Pulse Ox O2 Delivery O2 Flow Rate FiO2 11/19/16 20:35 99.1 117 21 138/90 (106) 94 High Flow Cannula 2.0 Laboratory Data Labs 24H Laboratory Tests 2 11/19/16 09:52: White Blood Count 15.5H, Red Blood Count 3.40L, Hemoglobin 10.8L, Hematocrit 35.3L, Mean Corpuscular Volume 103.9H, Mean Corpuscular Hemoglobin 31.9, Mean Corpuscular Hemoglobin Concent 30.7L, Red Cell Distribution Width 16.9H, Platelet Count 280, Neutrophils (%) (Auto) 84.1H, Lymphocytes (%) (Auto) 6.4L, Monocytes (%) (Auto) 5.4H, Eosinophils (%) (Auto) 2.1, Basophils (%) (Auto) 0.6 , Neutrophils # (Auto) 13.0H, Lymphocytes # (Auto) 1.2L, Monocytes # (Auto) 0.8 , Eosinophils # (Auto) 0.3, Basophils # (Auto) 0.1, Large Unclassified Cells % 1.4, Large Unclassified Cells # 0.2, Anion Gap 8, Glomerular Filtration Rate 8.4L, Lactic Acid Level 2.4*H, Calcium Level 9.0, Aspartate Amino Transf (AST/ SGOT) 18, Alanine Aminotransferase (ALT/SGPT) 13, Alkaline Phosphatase 71, Total Bilirubin 0.3, Direct Bilirubin < 0.1, Total Creatine Kinase 46, Creatine Kinase MB 1.1, Creatine Kinase MB Relative Index 2.39, Troponin I 0.07, C- Reactive Protein, Quantitative 3.41H, Total Protein 7.2, Albumin 2.8L, Albumin/ Globulin Ratio 0.64L 11/19/16 13:22: Urine Appearance TURBIDH, Urine Color YELLOW, Urine pH 6.0, Urine Specific [place] 1.014, Urine Protein 2+H, Urine Glucose (UA) NEGATIVE, Urine Ketones NEGATIVE, Urine Urobilinogen 0.2, Urine Bilirubin NEGATIVE, Urine Leukocyte Esterase 3+H, Urine Blood 2+H, Urine Nitrite NEGATIVE, Urine WBC (Auto) TNTCH, Urine RBC (Auto) 106H, Urine Hyaline Casts (Auto) 37, Urine Bacteria (Auto) 3+H , Urine Squamous Epithelial Cells 0, Urine Yeast-Like Cells (Auto) MODERATEH, Urine Sperm (Auto) 11/19/16 14:37: Erythrocyte Sedimentation Rate 62H 11/19/16 14:38: Lactic Acid Followup at 4 Hours 2.5*H 11/19/16 20:54: Bedside Glucose (Misc Panel) 210H 11/19/16 23:25: Lactic Acid Level 0.9 CBC/BMP Laboratory Tests 11/19/16 09:52 Red Blood Count 3.40 L, Mean Corpuscular Volume 103.9 H, Mean Corpuscular Hemoglobin 31.9, Mean Corpuscular Hemoglobin Concent 30.7 L, Red Cell Distribution Width 16.9 H, Neutrophils (%) (Auto) 84.1 H, Lymphocytes (%) (Auto ) 6.4 L, Monocytes (%) (Auto) 5.4 H, Eosinophils (%) (Auto) 2.1, Basophils (%) ( Auto) 0.6, Neutrophils # (Auto) 13.0 H, Lymphocytes # (Auto) 1.2 L, Monocytes # (Auto) 0.8, Eosinophils # (Auto) 0.3, Basophils # (Auto) 0.1 Microbiology Microbiology 11/19/16 Blood Culture, Received Pending 11/19/16 Blood Culture, Received Pending 11/19/16 Influenza Virus Type A Antigen - Final, Complete 11/19/16 Influenza Virus Type B Antigen - Final, Complete 11/19/16 Urine Culture, Received Pending Problems (1) Osteomyelitis of ankle or foot Status: Acute Problem Text: Discussed with radiology, and ordered MRI of feet bilat. If consistent with osteo, will consult podiatry. Empiric antibiotics ordered. (2) Peripheral vascular disease Status: Chronic Problem Text: Contributes to dry gangrene of multiple toes. (3) ESRD (end stage renal disease) on dialysis Status: Chronic Problem Text: Nephro consulted. (4) COPD (chronic obstructive pulmonary disease) Status: Chronic Problem Text: continue home medications. (5) Toe gangrene Status: Acute Problem Text: with likely osteomyelitis. Will consult podiatry. (6) CAD (coronary artery disease) Status: Chronic Problem Text: asymptomatic, continue home medications (7) Diabetes Status: Chronic Problem Text: on sliding scale insulin Plan / VTE VTE Prophylaxis Ordered?: Yes JASWINDER MIRANDA DO Nov 20, 2016 02:43
[2016-11-20] MEDS: CALCIUM ACETATE 667 MG GELCAP PO SCH ×4 (03:00→21:04)
[2016-11-20] MEDS: HumaLOG INSULIN (NovoLOG) PER UNIT SC SCH ×5 (03:33→21:00)
[2016-11-20 06:00] VITALS: BP 101/65
[2016-11-20 06:38] LABS: BASO # 0.1 K/mm3 (0.0-0.2); BASO % 0.7 % (0.0-1.0); EOS # 0.6 K/mm3 (0.0-0.50); EOS % 6.6 % (0.0-3.0); LARGE UNSTAINED CELL # 0.2 K/mm3 (0.0-0.4); LARGE UNSTAINED CELL % 2.8 % (0.0-4.0); LYMPH # 1.8 K/mm3 (1.5-4.5); LYMPH % 18.3 % (24.0-44.0); MEAN CORPUSCULAR HGB CONC 30.8 g/dl (32.0-36.5); MEAN CORPUSCULAR VOLUME 104.1 fl (80.0-96.0); MONO # 0.7 K/mm3 (0.0-0.8); MONO % 7.9 % (0.0-5.0); NEUTROPHILS # 5.4 K/mm3 (1.8-7.7); NEUTROPHILS % 63.7 % (36.0-66.0); PLATELET COUNT, AUTOMATED 229 k/mm3 (150-450); RED CELL DISTRIBUTION WIDTH 17.1 % (11.5-14.5); WHITE BLOOD COUNT 8.5 K/mm3 (4.0-10.0)
[2016-11-20 07:04] LABS: ALBUMIN 2.2 GM/DL (3.2-5.2); ALBUMIN/GLOBULIN RATIO 0.48 (1.00-1.93); BILIRUBIN,TOTAL 0.5 MG/DL (0.2-1.0); CALCIUM LEVEL 8.6 MG/DL (8.8-10.2); CREATININE FOR GFR 4.24 MG/DL (0.70-1.30); GLOMERULAR FILTRATION RATE 14.4 (>35); TOTAL PROTEIN 6.8 GM/DL (6.4-8.2)
[2016-11-20 07:13] LABS: POTASSIUM SERUM 5.8 MEQ/L (3.5-5.1)
[2016-11-20] MEDS ORDERED: cefTAZidime 1 GM VIAL (J0713) IV SCH (09:00)
[2016-11-20] MEDS: HEPARIN SOD (PORCINE) 5000 UNITS/ML VIAL SQ SCH ×2 (09:16→21:04)
[2016-11-20] MEDS: CLOPIDOGREL 75 MG TAB PO SCH (09:16)
[2016-11-20] MEDS: ASPIRIN 81 MG CHEW TABLET PO SCH (09:16)
[2016-11-20] MEDS: PANTOPRAZOLE 40MG TAB (PROTONIX) PO SCH (09:16)
[2016-11-20] MEDS: predniSONE 5 MG TAB PO SCH (09:16)
[2016-11-20] MEDS: MULTIVITAMINS/MINERALS THERAP 1 TAB PO SCH (09:16)
[2016-11-20] MEDS: MIRALAX *UNIT DOSE* 17GM PACKET PO SCH (09:16)
[2016-11-20] MEDS: GABAPENTIN 300 MG CAP PO SCH ×2 (09:16→21:04)
[2016-11-20] MEDS: FEBUXOSTAT 40 MG TABLET (ULORIC) PO SCH (09:19)
[2016-11-20] MEDS ORDERED: HEPARIN 1,000 UNITS/ML 10ML VIAL (FOR RADIOLOGY& DIALYSIS ONLY) XX ONE (11:30)
[2016-11-20] MEDS ORDERED: HEPARIN 1,000 UNITS/ML 10ML VIAL (FOR RADIOLOGY& DIALYSIS ONLY) IV ONE (11:30)
[2016-11-20 14:00] VITALS: BP 113/67
[2016-11-20] MEDS: VANCOMYCIN HCL 1,000 MG, VIAL MATE ADAPTER 1 EACH in D5W 250 ML IV SCH (15:29)
[2016-11-20] MEDS: CHECK TO SEE IF PATIENT IS RECEIVING DIALYSIS TODAY AND REFER TO THE VANCOMYCIN ORDER XX SCH ×2 (15:45)
--- NOTE | 2016-11-20 16:56 | REP ---
Right upper extremity duplex Doppler venous ultrasound. Real time compression and duplex Doppler evaluation of the right upper extremity deep venous system is performed. The right jugular, axillary, brachial, basilic and cephalic veins are fully compressible where accessible with transducer pressure, and demonstrate no intraluminal thrombus and normal venous waveforms. There is no evidence of deep venous thrombosis. The right subclavian vein could not be imaged due to overlying dressing. Impression: No evidence of deep venous thrombosis of the right upper extremity deep vein system. Signed by Kris Stone MD 11/20/2016 04:48 P
--- NOTE | 2016-11-20 17:44 | IPN ---
DATE: 11/20/2016 SUBJECTIVE: Patient was seen and examined at the bedside today morning. Patient reports that he is fever free now. He was dialyzed yesterday. He tolerated the hemodialysis procedure well; however, patient continues to be hyperkalemia. Patient potassium is still 5.8 at this time. REVIEW OF SYSTEMS: Patient denies any more fevers, chills, and rigors. He denies any chest pain, shortness of breath, palpitations, pain in abdomen, or constipation. He does report pain in the lower extremities. Rest of review of systems is negative. OBJECTIVE: Vital signs: Temperature is 98.3 degrees Fahrenheit, blood pressure is 101/65, pulse is 71, respiratory rate of 19, saturating 98% on nasal cannula at 2 liters. Intake and output: Urine output is not recorded. Ultrafiltration with hemodialysis was 2.5 liters. Weight in the bed scale is 85.5 kg. PHYSICAL EXAMINATION: GENERAL: Patient is awake, alert, oriented times three, lying in bed. No apparent distress. HEAD AND NECK: Extraocular muscles intact. Pupils equally round and reactive to light. Mucous membranes are moist. Neck is supple. There is no jugular venous distention (JVD). CARDIOVASCULAR: S1, S2, regular rate. No murmur, rub, or gallop. RESPIRATORY: Chest is clear to auscultation bilaterally. Bilateral equal air entry. No rales or rhonchi. AV ACCESS: Patient has a right internal jugular (IJ) tunneled hemodialysis catheter. ABDOMEN: Soft, obese. Positive bowel sounds. Nontender. No ascites. No organomegaly. MUSCULOSKELETAL: Normal range of movement of bilateral lower extremities. Patient has 1+ edema of the right upper extremity. There is no edema in the left upper extremity. Patient has dry gangrenous lesions in multiple toes, and he has 1+ edema of the bilateral lower extremities as well. CENTRAL NERVOUS SYSTEM: No focal neurological deficit. Power is 5/5 in bilateral upper extremities. PSYCHIATRIC: Normal mood and affect. LABORATORY REVIEW: CBC showed a WBC 8.5, hemoglobin 11.2, platelets are 229. BMP showed sodium 133, potassium 5.8, chloride 104, bicarbonate 21, BUN 21, creatinine is 4.2, calcium 8.6, albumin is 2.2. Microbiology: Blood cultures are negative so far. Urine culture is pending. IMAGING: MRI of the foot on bilateral lower extremities showed no significant abnormality. CURRENT INPATIENT MEDICATIONS: Patient's medications were all reviewed by me. He is currently on ceftazidime 1 gram intravenous (IV) with hemodialysis. Vancomycin 1 gram IV with hemodialysis. There is no other change in the medications today as compared with yesterday. ASSESSMENT: Mr. Nnamdi Rodriguez is an 81-year-old male with past medical history of end-stage renal disease, on hemodialysis, insulin-dependent diabetic, peripheral vascular disease with multiple dry gangrenous lesions on the lower extremities, gout, admitted at this time with fever and sepsis along with hyperkalemia. PLAN: 1. End-stage renal disease, on hemodialysis. Yesterday was patient's regular day of dialysis. He was dialyzed for 3 hours; however, patient continues to be hyperkalemia. Patient will get another session of hemodialysis for 2 hours. 2. Hyperkalemia. Potassium is 5.8. Patient is going to be dialyzed again with 1K bath for 2 hours for his hyperkalemia. 3. Sepsis. No significant source is known. The patient has right upper extremity swelling as well. I am going to do a Doppler to rule out deep vein thrombosis (DVT). He is currently on IV vancomycin and ceftazidime for empiric coverage. Further workup of possible lower extremity osteomyelitis is as per primary team. 4. Anemia and end-stage renal disease. Patient's hemoglobin is 11.2, which is acceptable. No need of Aranesp administration at this time. Patient was seen and examined during the work rounds today morning and again during hemodialysis procedure. He was tolerating the hemodialysis procedure well.
[2016-11-20] MEDS: cefTAZidime 1 GM in D5W MINI-BAG PLUS 100 ML IV SCH (18:12)
[2016-11-20] MEDS: ATORVASTATIN 20 MG TAB PO SCH (21:04)
[2016-11-20] MEDS: NORCO, ANEXSIA 5/325MG TABLET (HYDROcodone/ACETAMINOPHEN) PO PRN (21:05)
[2016-11-20 22:00] VITALS: BP 123/71
--- NOTE | 2016-11-21 02:40 | IPNPDOC ---
Subjective Date Seen The patient was seen on 11/20/16. Subjective Chief Complaint/HPI The patient is a 81-year-old male admitted with a reason for visit of Cellulitis ,Fever,Osteomyelitis Ankle Or Foot,Toe G. Events since last encounter Consulted Dr. Wooten re: bilateral LE osteomyelitis. Patient states he is feeling much better. States he feels better after dialysis. Constitutional: Denies: Chills, Fever Skin: Reports: Rash Pulmonary: Denies: Dyspnea, Cough Cardiovascular: Denies: Chest Pain Gastrointestinal: Denies: Nausea, Vomiting, Diarrhea, Constipation Objective Physical Examination General Exam: Positive: Alert, Cooperative, Other (ill-appearing) Eye Exam: Positive: PERRLA, Conjunctiva & lids normal ENT Exam: Positive: Atraumatic, Mucous membr. moist/pink, Pharynx Normal Neck Exam: Positive: Supple Chest Exam: Positive: Clear to auscultation, Normal air movement Heart Exam: Positive: Rate Normal Abdomen Exam: Positive: Normal bowel sounds, Soft, Negative: Tenderness Extremity Exam: Positive: Tenderness, Other (dry gangrene with eschar ) Skin Exam: Positive: Nl turgor and temperature, Other skin issue (erythema L soliz (receded from previously marked borders)) Neuro Exam: Positive: Normal Speech, Normal Tone Psych Exam: Positive: Mental status NL, Mood NL, Oriented x 3, Negative: Memory Intact (but alert and oriented x 3) Assessment /Plan Problems (1) Osteomyelitis of ankle or foot Status: Acute Problem Text: 11/20 -- podiatry consulted Discussed with radiology, and ordered MRI of feet bilat. If consistent with osteo, will consult podiatry. Empiric antibiotics ordered. (2) Peripheral vascular disease Status: Chronic Problem Text: Contributes to dry gangrene of multiple toes. (3) ESRD (end stage renal disease) on dialysis Status: Chronic Problem Text: Nephro consulted. (4) COPD (chronic obstructive pulmonary disease) Status: Chronic Problem Text: continue home medications. (5) Toe gangrene Status: Acute Problem Text: 11/20 -- dry gangrene. Imaging support osteo. Podiatry consulted. Continue abx. with likely osteomyelitis. Will consult podiatry. (6) CAD (coronary artery disease) Status: Chronic Problem Text: asymptomatic, continue home medications (7) Diabetes Status: Chronic Problem Text: on sliding scale insulin Plan/VTE VTE Prophylaxis Ordered?: Yes VS, I&O, 24H, [facility] Vital Signs/I&O Vital Signs Date Time Temp Pulse Resp B/P (MAP) Pulse Ox O2 Delivery O2 Flow Rate FiO2 11/20/16 22:00 98.8 76 20 123/71 (88) 95 Nasal Cannula 2.0 I&O- Last 24 Hours up to 6 AM 11/21/16 05:59 Intake Total 1560 ml Output Total 1000 ml Balance 560 ml Laboratory Data 24H LABS Laboratory Tests 2 11/20/16 06:29: White Blood Count 8.5, Red Blood Count 3.51L, Hemoglobin 11.2L, Hematocrit 36.5L , Mean Corpuscular Volume 104.1H, Mean Corpuscular Hemoglobin 32.0, Mean Corpuscular Hemoglobin Concent 30.8L, Red Cell Distribution Width 17.1H, Platelet Count 229, Neutrophils (%) (Auto) 63.7, Lymphocytes (%) (Auto) 18.3L, Monocytes (%) (Auto) 7.9H, Eosinophils (%) (Auto) 6.6H, Basophils (%) (Auto) 0.7 , Neutrophils # (Auto) 5.4, Lymphocytes # (Auto) 1.8, Monocytes # (Auto) 0.7, Eosinophils # (Auto) 0.6H, Basophils # (Auto) 0.1, Large Unclassified Cells % 2.8, Large Unclassified Cells # 0.2, Anion Gap 8, Glomerular Filtration Rate 14.4L, Blood Urea Nitrogen 21H, Creatinine 4.24H, Sodium Level 133L, Potassium Level 5.8H, Chloride Level 104, Carbon Dioxide Level 21, Calcium Level 8.6L, Aspartate Amino Transf (AST/SGOT) 24, Alanine Aminotransferase (ALT/SGPT) 12, Alkaline Phosphatase 67, Total Bilirubin 0.5#, Total Protein 6.8, Albumin 2.2#L , Albumin/Globulin Ratio 0.48L 11/20/16 13:21: Bedside Glucose (Misc Panel) 192H 11/20/16 16:23: Bedside Glucose (Misc Panel) 230H 11/20/16 20:31: Bedside Glucose (Misc Panel) 110 CBC/BMP Laboratory Tests 11/20/16 06:29 Red Blood Count 3.51 L, Mean Corpuscular Volume 104.1 H, Mean Corpuscular Hemoglobin 32.0, Mean Corpuscular Hemoglobin Concent 30.8 L, Red Cell Distribution Width 17.1 H, Neutrophils (%) (Auto) 63.7, Lymphocytes (%) (Auto) 18.3 L, Monocytes (%) (Auto) 7.9 H, Eosinophils (%) (Auto) 6.6 H, Basophils (%) (Auto) 0.7, Neutrophils # (Auto) 5.4, Lymphocytes # (Auto) 1.8, Monocytes # ( Auto) 0.7, Eosinophils # (Auto) 0.6 H, Basophils # (Auto) 0.1, Calcium Level 8.6 L, Aspartate Amino Transf (AST/SGOT) 24, Alanine Aminotransferase (ALT/SGPT ) 12, Alkaline Phosphatase 67, Total Bilirubin 0.5 #, Total Protein 6.8, Albumin 2.2 #L Microbiology Microbiology 11/19/16 Blood Culture - Preliminary, Resulted No growth after 24 hours . All specim... 11/19/16 Blood Culture - Preliminary, Resulted No growth after 24 hours . All specim... 11/19/16 Influenza Virus Type A Antigen - Final, Complete 11/19/16 Influenza Virus Type B Antigen - Final, Complete 11/19/16 Urine Culture, Received Pending JASWINDER MIRANDA DO Nov 21, 2016 02:40
[2016-11-21 06:00] VITALS: BP 160/80
[2016-11-21] MEDS: MIRALAX *UNIT DOSE* 17GM PACKET PO SCH (06:29)
[2016-11-21] MEDS: HEPARIN SOD (PORCINE) 5000 UNITS/ML VIAL SQ SCH ×2 (06:29→21:34)
[2016-11-21] MEDS: FEBUXOSTAT 40 MG TABLET (ULORIC) PO SCH (06:30)
[2016-11-21] MEDS: CLOPIDOGREL 75 MG TAB PO SCH (06:30)
[2016-11-21] MEDS: PANTOPRAZOLE 40MG TAB (PROTONIX) PO SCH (06:30)
[2016-11-21] MEDS: predniSONE 5 MG TAB PO SCH (06:30)
[2016-11-21] MEDS: ASPIRIN 81 MG CHEW TABLET PO SCH (06:30)
[2016-11-21] MEDS: MULTIVITAMINS/MINERALS THERAP 1 TAB PO SCH (06:31)
[2016-11-21] MEDS: GABAPENTIN 300 MG CAP PO SCH ×2 (06:31→21:31)
[2016-11-21] MEDS: CALCIUM ACETATE 667 MG GELCAP PO SCH ×3 (06:31→21:31)
[2016-11-21] MEDS: HumaLOG INSULIN (NovoLOG) PER UNIT SC SCH ×4 (07:30→21:00)
--- NOTE | 2016-11-21 08:17 | IPNPDOC ---
Subjective Date Seen The patient was seen on 11/21/16. Subjective Chief Complaint/HPI The patient is a 81-year-old male admitted with a reason for visit of Cellulitis ,Fever,Osteomyelitis Ankle Or Foot,Toe G. Events since last encounter Dr. Hobbs plans on amputation of 1st toes bilateral and 3 rd toe on right foot. received Plavix this am. Patient denies c/o. Constitutional: Denies: Chills, Fever, Night Sweats Eyes: Denies: Pain, Vision change Skin: Denies: Rash, Lesions, Breakdown Pulmonary: Denies: Dyspnea, Cough Cardiovascular: Denies: Chest Pain, Palpitations, Orthopnea, Paroxysmal Noc. Dyspnea, Lt Headedness Psych: Reports: Mood Normal, Denies: Depression, Memory Issues Objective Physical Examination General Exam: Positive: Alert, Cooperative Eye Exam: Positive: PERRLA, Conjunctiva & lids normal ENT Exam: Positive: Atraumatic, Mucous membr. moist/pink, Pharynx Normal Neck Exam: Positive: Supple Chest Exam: Positive: Clear to auscultation, Normal air movement Heart Exam: Positive: Rate Normal Abdomen Exam: Positive: Normal bowel sounds, Soft, Negative: Tenderness Extremity Exam: Positive: Tenderness, Other (dry gangrene with eschar ) Skin Exam: Positive: Nl turgor and temperature, Other skin issue (erythema L soliz (receded from previously marked borders)) Neuro Exam: Positive: Normal Speech, Normal Tone Psych Exam: Positive: Mental status NL, Mood NL, Oriented x 3, Negative: Memory Intact (but alert and oriented x 3) Assessment /Plan Problems (1) Osteomyelitis of ankle or foot Status: Acute Problem Text: 11/21/2016: plan for amputation bilateral 1st toes and right foot 3 rd toe next week. Plavix on HOLD x 5 days. 11/20 -- podiatry consulted Discussed with radiology, and ordered MRI of feet bilat. If consistent with osteo, will consult podiatry. Empiric antibiotics ordered. (2) Toe gangrene Status: Acute Problem Text: 11/21/16: Se osteomyelitis section. 11/20 -- dry gangrene. Imaging support osteo. Podiatry consulted. Continue abx. with likely osteomyelitis. Will consult podiatry. (3) Peripheral vascular disease Status: Chronic Problem Text: Contributes to dry gangrene of multiple toes. (4) ESRD (end stage renal disease) on dialysis Status: Chronic Problem Text: Nephro consulted and following. Attempting to maintain routine HD days. (5) COPD (chronic obstructive pulmonary disease) Status: Chronic Problem Text: continue home medications. (6) CAD (coronary artery disease) Status: Chronic Problem Text: asymptomatic, continue home medications (7) Diabetes Status: Chronic Problem Text: on sliding scale insulin Plan/VTE VTE Prophylaxis Ordered?: No VTE Exclusion Mechanical Proph: Other (on hold in anticipation of surgery) VS, I&O, 24H, Fishbone Vital Signs/I&O Vital Signs Date Time Temp Pulse Resp B/P (MAP) Pulse Ox O2 Delivery O2 Flow Rate FiO2 11/21/16 06:00 98.9 54 20 160/80 (106) 96 Nasal Cannula 2.0 I&O- Last 24 Hours up to 6 AM 11/21/16 05:59 Intake Total 1560 ml Output Total 1000 ml Balance 560 ml Laboratory Data 24H LABS Laboratory Tests 2 11/20/16 13:21: Bedside Glucose (Misc Panel) 192H 11/20/16 16:23: Bedside Glucose (Misc Panel) 230H 11/20/16 20:31: Bedside Glucose (Misc Panel) 110 11/21/16 07:37: Bedside Glucose (Misc Panel) 136H 11/21/16 07:56: Microbiology Microbiology 11/19/16 Blood Culture - Preliminary, Resulted No growth after 24 hours . All specim... 11/19/16 Blood Culture - Preliminary, Resulted No growth after 24 hours . All specim... 11/19/16 Influenza Virus Type A Antigen - Final, Complete 11/19/16 Influenza Virus Type B Antigen - Final, Complete 11/19/16 Urine Culture - Final, Complete Proteus Mirabilis Ira Ham [employer] Nov 21, 2016 08:17
[2016-11-21 08:41] LABS: ALBUMIN 2.5 GM/DL (3.2-5.2); ALBUMIN/GLOBULIN RATIO 0.71 (1.00-1.93); BILIRUBIN,TOTAL 0.5 MG/DL (0.2-1.0); CALCIUM LEVEL 8.1 MG/DL (8.8-10.2); CREATININE FOR GFR 4.58 MG/DL (0.70-1.30); GLOMERULAR FILTRATION RATE 13.2 (>35); VANCOMYCIN RANDOM 21.2 UG/ML
[2016-11-21 08:57] LABS: BASO % 0.7 % (0.0-1.0); EOS # 0.5 K/mm3 (0.0-0.50); EOS % 7.1 % (0.0-3.0); LARGE UNSTAINED CELL # 0.2 K/mm3 (0.0-0.4); LYMPH # 1.2 K/mm3 (1.5-4.5); LYMPH % 14.4 % (24.0-44.0); MEAN CORPUSCULAR HEMOGLOBIN 31.9 pg (27.0-33.0); MEAN CORPUSCULAR HGB CONC 30.5 g/dl (32.0-36.5); MEAN CORPUSCULAR VOLUME 104.3 fl (80.0-96.0); MONO # 0.7 K/mm3 (0.0-0.8); MONO % 9.3 % (0.0-5.0); NEUTROPHILS # 4.6 K/mm3 (1.8-7.7); NEUTROPHILS % 65.6 % (36.0-66.0); PLATELET COUNT, AUTOMATED 219 k/mm3 (150-450)
--- NOTE | 2016-11-21 10:56 | PHACANCOPD ---
PHARMACY VANCOMYCIN DOSING Pt Demographics Demographics Patient Age:81 , Weight:85.500 , Gender: male Adjusted Body Weight Date: 11/21/16, Adjusted Body Weight: Kg Vancomycin Vancomycin indication: OSTEOMYELITIS Vancomycin Target Ranges: 15-20 mcg/ml Vancomycin Load Y/N: No Load Dose Date Time Vancomycin Load Dose: Date: Time: Vancomycin Dose Date: 11/21/16. Current Vancomycin Dose: [1G IV HD] Intermittent Dosing?: Yes Labs Labs Item Value Date Time White Blood Count 7.0 K/mm3 11/21/16 0755 White Blood Count 8.5 K/mm3 11/20/16 0629 White Blood Count 15.5 K/mm3 H 11/19/16 0952 Erythrocyte Sedimentation Rate 62 mm/hr H 11/19/16 1437 Lactic Acid Followup at 4 Hours 2.5 MMOL/L *H 11/19/16 1438 C-Reactive Protein, Quantitative 3.41 MG/DL H 11/19/16 0952 Creatinine 4.58 MG/DL H 11/21/16 0756 Creatinine 4.24 MG/DL H 11/20/16 0629 Micro Microbiology 11/19/16 Blood Culture - Preliminary, Resulted No growth after 24 hours . All specim... 11/19/16 Blood Culture - Preliminary, Resulted No Growth after 48 hours. All Specime... 11/19/16 Influenza Virus Type A Antigen - Final, Complete 11/19/16 Influenza Virus Type B Antigen - Final, Complete 11/19/16 Urine Culture - Final, Complete Proteus Mirabilis Creatinine Clearance Date:11/21/16. Estimated Creatinine Clearance: [~10ml/min]. Assessment and Plan Maintaining Current Dose?: Yes Reason for dose change: No Dose Change Pharmacist Note Pharmacist Note Date: 11/21/16. 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 The patient is to go for toe amputations next week. He undergoes hemodialysis Mondays, Wednesdays, and Fridays - but this week has received dialysis as well. No PMH of MRSA, but the patient has been on vancomycin back in September and October of this year. Blood cultures are still pending, but urine culture has grown proteus sensitive to ceftazidime. A random level was drawn this morning and resulted at 21.2mcg/ ml. We will continue the patient on his current regimen of 1g IV after HD, and draw further levels as needed. [facility] Nov 21, 2016 10:56
[2016-11-21] MEDS ORDERED: HEPARIN 1,000 UNITS/ML 10ML VIAL (FOR RADIOLOGY& DIALYSIS ONLY) IV ONE (11:00)
[2016-11-21] MEDS ORDERED: HEPARIN 1,000 UNITS/ML 10ML VIAL (FOR RADIOLOGY& DIALYSIS ONLY) XX ONE (11:00)
[2016-11-21 14:00] VITALS: BP 109/59
[2016-11-21] MEDS: cefTAZidime 1 GM in D5W MINI-BAG PLUS 100 ML IV SCH (16:07)
[2016-11-21] MEDS: VANCOMYCIN HCL 1,000 MG, VIAL MATE ADAPTER 1 EACH in D5W 250 ML IV SCH (16:07)
[2016-11-21] MEDS: CHECK TO SEE IF PATIENT IS RECEIVING DIALYSIS TODAY AND REFER TO THE VANCOMYCIN ORDER XX SCH ×2 (16:07→16:08)
--- NOTE | 2016-11-21 17:52 | IPN ---
DATE: 11/21/2016 SUBJECTIVE: The patient was seen and examined at the bedside today morning during hemodialysis procedure. The patient was tolerating the hemodialysis procedure well. He denies any active fevers or chills. I was informed by the primary team that the patient is schedule to have both big toes and the right third toe amputated because of osteomyelitis. The patient was also found to have Proteus urinary tract infection (UTI). REVIEW OF SYSTEMS: The patient denies any fevers, chills, rigors, headaches, nausea, vomiting, chest pain, shortness of breath, pain abdomen, constipation, or diarrhea. Rest of review of systems is negative. OBJECTIVE: VITAL SIGNS: Temperature is 98.9 degrees Fahrenheit, blood pressure is 160/80, pulse is 54, respiratory rate of 20, saturating 96% on nasal cannula at two liters. INTAKE AND OUTPUT: There is no urine output recorded. Ultrafiltration with hemodialysis was one liter yesterday. PHYSICAL EXAMINATION: GENERAL: The patient is awake, alert, oriented times two, lying in bed in no apparent distress, getting hemodialysis done. HEAD/NECK: Extraocular muscles intact. Pupils equal, round, and reactive to light. Mucous membranes are moist. Neck is supple. There is no jugular venous distention (JVD). CARDIOVASCULAR: S1, S2, regular rate. No murmur, rub, or gallop. RESPIRATORY: Chest is clear to auscultation bilaterally. Bilateral equal air entry. No rales or rhonchi. ARTERIOVENOUS (AV) ACCESS: The patient has a right internal jugular (IJ) tunneled hemodialysis catheter which is being used for dialysis at this time. ABDOMEN: Soft. Positive bowel sounds. Nontender. No ascites. No organomegaly. MUSCULOSKELETAL: Normal range of movement of bilateral lower extremities. The patient has 1+ edema of the right upper extremity and trace edema of the bilateral lower extremities. He has multiple dry gangrenous lesions on multiple toes. CENTRAL NERVOUS SYSTEM (CONFERENCE CONCIERGE): No focal neurological deficit. Power is 5/5 in all extremities. PSYCHIATRIC: Normal mood and affect. LABORATORY DATA: CBC showed a WBC if seven, hemoglobin 10.8, platelets of 219. BMP showed sodium 141, potassium five, chloride 104, bicarbonate 27, BUN 23, creatinine 4.5, calcium 8.1. MICROBIOLOGY: Urine culture is growing Proteus mirabilis. IMAGING: Right upper extremity Doppler was negative for deep venous thrombosis (DVT) of the right upper extremity. CURRENT INPATIENT MEDICATIONS: The patient's medications were all reviewed by me. There is no significant change in the medications today as compared with yesterday. ASSESSMENT: An 81-year-old male with past medical history of end-stage renal disease on hemodialysis, insulin dependent diabetes, peripheral vascular disease with multiple dry gangrenous lesions in bilateral lower extremities, gout, admitted this time with fever, sepsis, along with hyperkalemia. PLAN: 1. End-stage renal disease on hemodialysis: The patient's regular days of dialysis are Thursday, Thursday, Thursday. He is being dialyzed again for three hours according to his regular schedule. We shall try to remove about 1.5 to two KG of fluid as tolerated by his blood pressure. 2. Hyperkalemia: Potassium is improved now to five today. The patient will be dialyzed against a 2K bath. His potassium in the diet has also been decreased to 2 gram potassium in 24 hours. 3. Sepsis: The patient was seen by podiatry and he apparently has osteomyelitis. There is a plan to do bilateral big toe and right third toe amputation next week. 4. Urinary tract infection. The patient has Proteus in the urine culture. He is already on intravenous (IV) vancomycin and ceftazidime which should cover Proteus as well. 5. Anemia in end-stage renal disease. The patient's hemoglobin is 10.8 which is acceptable at this time. He will be given a dose of Aranesp with hemodialysis on next session. MTDD
[2016-11-21 20:20] VITALS: BP 102/62
[2016-11-21] MEDS ORDERED: HEPARIN SOD (PORCINE) 5000 UNITS/ML VIAL SQ SCH (21:00)
--- NOTE | 2016-11-21 21:11 | CR ---
DATE OF CONSULTATION: 11/21/2016 CHIEF COMPLAINT: An 81-year-old male seen on request for referral. Osteomyelitis of big toes and the third toe on the right foot. The patient has had necrotic toes for some time. However, recently they have become more painful and he is not feeling well. He was subsequently admitted to the hospital and is seen on consultation. HOME MEDICATIONS: - aspirin - acetaminophen with hydrocodone - atorvastatin 20 mg by mouth at bedtime - calcium 660 mg capsule - Plavix 75 mg daily - vitamin D 50,000 units a month - Uloric 40 mg daily - gabapentin 300 mg twice a day - insulin on sliding scale - Protonix 40 mg daily - MiraLAX daily - prednisone 5 mg daily ALLERGIES: No known allergies. MEDICAL HISTORY: 1. End-stage renal disease on dialysis. 2. Peripheral artery disease. 3. Iliac and celiac stents. 4. Coronary artery disease. 5. History of myocardial infarction. 6. Diastolic congestive heart failure. 7. Chronic obstructive pulmonary disease. 8. Hyperlipidemia. 9. Diabetes. 10. Gout. SURGERIES: Stents as describes, fistulas for hemodialysis. PHYSICAL EXAMINATION: Reveals an alert 81-year-old male in no acute distress. Evaluation of his lower extremities reveals a palpable dorsalis pedis pulse on the right foot; however the left dorsalis pedis pulse is not palpable and the posterior tibialis pulses are not palpable bilaterally. Evaluation of his toes reveals a dark eschar on the distal aspect of the hallux bilaterally. Eschar is also present on the third toe of the right foot; however, this extends down encompassing the majority of the toe. There is no discharge, but the ulceration is down to the distal phalanx on the hallux bilaterally as well as the distal phalanx of the third toe on the right foot. MRIs were reviewed, consistent with osteomyelitis of the distal phalanx of the hallux bilaterally and third toe right foot. There are no clinical signs of osteomyelitis in the remainder of the foot. ASSESSMENT: Osteomyelitis distal phalanx hallux bilaterally, third toe right foot. PLAN: Hold Plavix. Since the patient has renal disease, we will hold this for five days prior to surgery. He is tentatively scheduled for surgery Thursday night around 5 o'clock. He will be nothing by mouth after breakfast on Thursday. Informed consent was obtained and signed by the patient. We discussed the risks as well as the benefits of the surgery, and no guarantees were given to the patient.
[2016-11-21] MEDS: ATORVASTATIN 20 MG TAB PO SCH (21:31)
[2016-11-22] MEDS: NORCO, ANEXSIA 5/325MG TABLET (HYDROcodone/ACETAMINOPHEN) PO PRN (00:23)
[2016-11-22 05:51] LABS: BASO # 0.1 K/mm3 (0.0-0.2); BASO % 1.1 % (0.0-1.0); EOS # 0.5 K/mm3 (0.0-0.50); EOS % 7.1 % (0.0-3.0); LARGE UNSTAINED CELL # 0.2 K/mm3 (0.0-0.4); LARGE UNSTAINED CELL % 3.3 % (0.0-4.0); LYMPH # 1.3 K/mm3 (1.5-4.5); LYMPH % 16.9 % (24.0-44.0); MEAN CORPUSCULAR HEMOGLOBIN 31.9 pg (27.0-33.0); MEAN CORPUSCULAR HGB CONC 30.5 g/dl (32.0-36.5); MEAN CORPUSCULAR VOLUME 104.6 fl (80.0-96.0); MONO # 0.5 K/mm3 (0.0-0.8); MONO % 7.5 % (0.0-5.0); NEUTROPHILS # 4.3 K/mm3 (1.8-7.7); NEUTROPHILS % 64.1 % (36.0-66.0); PLATELET COUNT, AUTOMATED 245 k/mm3 (150-450); RED CELL DISTRIBUTION WIDTH 16.9 % (11.5-14.5); WHITE BLOOD COUNT 6.6 K/mm3 (4.0-10.0)
[2016-11-22 06:00] VITALS: BP 128/78
[2016-11-22 06:09] LABS: ALBUMIN 2.4 GM/DL (3.2-5.2); ALBUMIN/GLOBULIN RATIO 0.6 (1.00-1.93); BILIRUBIN,TOTAL 0.4 MG/DL (0.2-1.0); CALCIUM LEVEL 8.5 MG/DL (8.8-10.2); CREATININE FOR GFR 3.98 MG/DL (0.70-1.30); GLOMERULAR FILTRATION RATE 15.5 (>35); TOTAL PROTEIN 6.4 GM/DL (6.4-8.2)
[2016-11-22] MEDS: MIRALAX *UNIT DOSE* 17GM PACKET PO SCH (09:35)
[2016-11-22] MEDS: GABAPENTIN 300 MG CAP PO SCH ×2 (09:36→20:31)
[2016-11-22] MEDS: MULTIVITAMINS/MINERALS THERAP 1 TAB PO SCH (09:36)
[2016-11-22] MEDS: CALCIUM ACETATE 667 MG GELCAP PO SCH ×3 (09:36→20:31)
[2016-11-22] MEDS: HEPARIN SOD (PORCINE) 5000 UNITS/ML VIAL SQ SCH ×2 (09:36→20:31)
[2016-11-22] MEDS: predniSONE 5 MG TAB PO SCH (09:36)
[2016-11-22] MEDS: FEBUXOSTAT 40 MG TABLET (ULORIC) PO SCH (09:36)
[2016-11-22] MEDS: ASPIRIN 81 MG CHEW TABLET PO SCH (09:36)
[2016-11-22] MEDS: PANTOPRAZOLE 40MG TAB (PROTONIX) PO SCH (09:36)
[2016-11-22] MEDS: HumaLOG INSULIN (NovoLOG) PER UNIT SC SCH ×4 (09:37→20:32)
[2016-11-22 14:00] VITALS: BP 94/66
--- NOTE | 2016-11-22 15:56 | IPNPDOC ---
Subjective Date Seen The patient was seen on 11/22/16. Subjective Chief Complaint/HPI The patient is a 81-year-old male admitted with a reason for visit of Cellulitis ,Fever,Osteomyelitis Ankle Or Foot,Toe G. Events since last encounter Patient is awaiting surgery with Dr. Wooten this coming week. He denies any fevers, chills, or sweats. He occasionally gets "lightning bolts" in his foot, however pain is generally controlled. Constitutional: Denies: Chills, Fever Skin: Reports: Breakdown (foot wound) Pulmonary: Denies: Dyspnea, Cough Cardiovascular: Denies: Chest Pain, Palpitations Gastrointestinal: Denies: Nausea, Vomiting, Abdominal Pain, Diarrhea Other systems 10 point review systems otherwise negative Objective Physical Examination General Exam: Positive: Alert, Cooperative Eye Exam: Positive: PERRLA, Conjunctiva & lids normal ENT Exam: Positive: Atraumatic, Mucous membr. moist/pink, Pharynx Normal Neck Exam: Positive: Supple Chest Exam: Positive: Clear to auscultation, Normal air movement Heart Exam: Positive: Rate Normal Abdomen Exam: Positive: Normal bowel sounds, Soft, Negative: Tenderness Extremity Exam: Positive: Tenderness, Other (dry gangrene with eschar ) Skin Exam: Positive: Nl turgor and temperature, Other skin issue (erythema L soliz (receded from previously marked borders)) Neuro Exam: Positive: Normal Speech, Normal Tone Psych Exam: Positive: Mental status NL, Mood NL, Oriented x 3, Negative: Memory Intact (but alert and oriented x 3) Assessment /Plan Problems (1) Osteomyelitis of ankle or foot Status: Acute Problem Text: 11/22: Waiting amputations. Plavix on hold. Vancomycin day 3, ceftazidime day 2 11/21/2016: plan for amputation bilateral 1st toes and right foot 3 rd toe next week. Plavix on HOLD x 5 days. 11/20 -- podiatry consulted Discussed with radiology, and ordered MRI of feet bilat. If consistent with osteo, will consult podiatry. Empiric antibiotics ordered. (2) Toe gangrene Status: Acute Problem Text: 11/22: Awaiting surgical amputation 11/21/16: See osteomyelitis section. 11/20 -- dry gangrene. Imaging support osteo. Podiatry consulted. Continue abx. with likely osteomyelitis. Will consult podiatry. (3) Peripheral vascular disease Status: Chronic Problem Text: Contributes to dry gangrene of multiple toes. (4) ESRD (end stage renal disease) on dialysis Status: Chronic Problem Text: Nephro consulted and following. Attempting to maintain routine HD days. (5) COPD (chronic obstructive pulmonary disease) Status: Chronic Problem Text: continue home medications. (6) CAD (coronary artery disease) Status: Chronic Problem Text: asymptomatic, continue home medications (7) Diabetes Status: Chronic Problem Text: on sliding scale insulin Plan/VTE VTE Prophylaxis Ordered?: No VTE Exclusion Mechanical Proph: Other (on hold in anticipation of surgery) Disposition Awaiting surgery. VS, I&O, 24H, Fishbone Vital Signs/I&O Vital Signs Date Time Temp Pulse Resp B/P (MAP) Pulse Ox O2 Delivery O2 Flow Rate FiO2 11/22/16 14:00 97.7 97 18 94/66 (75) 99 Nasal Cannula 2.0 I&O- Last 24 Hours up to 6 AM 11/22/16 06:00 Intake Total 1320 ml Output Total 2500 ml Balance -1180 ml Laboratory Data 24H LABS Laboratory Tests 2 11/21/16 16:51: Bedside Glucose (Misc Panel) 205H 11/21/16 20:06: Bedside Glucose (Misc Panel) 104 11/22/16 05:27: White Blood Count 6.6, Red Blood Count 3.43L, Hemoglobin 10.9L, Hematocrit 35.8L , Mean Corpuscular Volume 104.6H, Mean Corpuscular Hemoglobin 31.9, Mean Corpuscular Hemoglobin Concent 30.5L, Red Cell Distribution Width 16.9H, Platelet Count 245, Neutrophils (%) (Auto) 64.1, Lymphocytes (%) (Auto) 16.9L, Monocytes (%) (Auto) 7.5H, Eosinophils (%) (Auto) 7.1H, Basophils (%) (Auto) 1.1H, Neutrophils # (Auto) 4.3, Lymphocytes # (Auto) 1.3L, Monocytes # (Auto) 0.5, Eosinophils # (Auto) 0.5, Basophils # (Auto) 0.1, Large Unclassified Cells % 3.3, Large Unclassified Cells # 0.2, Anion Gap 7L, Glomerular Filtration Rate 15.5L, Blood Urea Nitrogen 21H, Creatinine 3.98H, Sodium Level 140, Potassium Level 4.0, Chloride Level 103, Carbon Dioxide Level 30, Calcium Level 8.5L, Aspartate Amino Transf (AST/SGOT) 10L, Alanine Aminotransferase (ALT/SGPT) 14, Alkaline Phosphatase 60, Total Bilirubin 0.4, Total Protein 6.4, Albumin 2.4L, Albumin/Globulin Ratio 0.60L 11/22/16 11:44: Bedside Glucose (Misc Panel) 92 CBC/BMP Laboratory Tests 11/22/16 05:27 Red Blood Count 3.43 L, Mean Corpuscular Volume 104.6 H, Mean Corpuscular Hemoglobin 31.9, Mean Corpuscular Hemoglobin Concent 30.5 L, Red Cell Distribution Width 16.9 H, Neutrophils (%) (Auto) 64.1, Lymphocytes (%) (Auto) 16.9 L, Monocytes (%) (Auto) 7.5 H, Eosinophils (%) (Auto) 7.1 H, Basophils (%) (Auto) 1.1 H, Neutrophils # (Auto) 4.3, Lymphocytes # (Auto) 1.3 L, Monocytes # (Auto) 0.5, Eosinophils # (Auto) 0.5, Basophils # (Auto) 0.1, Calcium Level 8.5 L, Aspartate Amino Transf (AST/SGOT) 10 L, Alanine Aminotransferase (ALT/SGPT) 14, Alkaline Phosphatase 60, Total Bilirubin 0.4, Total Protein 6.4, Albumin 2.4 L Microbiology Microbiology 11/19/16 Blood Culture - Preliminary, Resulted No Growth after 72 hours. All specime... 11/19/16 Blood Culture - Preliminary, Resulted No Growth after 72 hours. All specime... 11/19/16 Influenza Virus Type A Antigen - Final, Complete 11/19/16 Influenza Virus Type B Antigen - Final, Complete 11/19/16 Urine Culture - Final, Complete Proteus Mirabilis RAY FIGUEREDO MD Nov 22, 2016 15:56
[2016-11-22] MEDS: CHECK TO SEE IF PATIENT IS RECEIVING DIALYSIS TODAY AND REFER TO THE VANCOMYCIN ORDER XX SCH ×2 (16:00)
[2016-11-22] MEDS: ATORVASTATIN 20 MG TAB PO SCH (20:31)
[2016-11-22 22:00] VITALS: BP 157/82
[2016-11-23 06:00] VITALS: BP 153/86
[2016-11-23 06:04] LABS: ADD MORPHOLOGY? YES; BASO # 0.1 K/mm3 (0.0-0.2); BASO % 0.9 % (0.0-1.0); EOS # 0.6 K/mm3 (0.0-0.50); LARGE UNSTAINED CELL # 0.3 K/mm3 (0.0-0.4); LARGE UNSTAINED CELL % 3.3 % (0.0-4.0); LYMPH # 1.4 K/mm3 (1.5-4.5); LYMPH % 14.8 % (24.0-44.0); MEAN CORPUSCULAR HEMOGLOBIN 31.5 pg (27.0-33.0); MEAN CORPUSCULAR VOLUME 104.9 fl (80.0-96.0); MONO # 0.6 K/mm3 (0.0-0.8); NEUTROPHILS # 5.2 K/mm3 (1.8-7.7); NEUTROPHILS % 65.9 % (36.0-66.0); PLATELET COUNT, AUTOMATED 237 k/mm3 (150-450); RED CELL DISTRIBUTION WIDTH 16.8 % (11.5-14.5); WHITE BLOOD COUNT 7.8 K/mm3 (4.0-10.0)
[2016-11-23 06:21] LABS: ALBUMIN 2.5 GM/DL (3.2-5.2); BILIRUBIN,TOTAL 0.3 MG/DL (0.2-1.0); POTASSIUM SERUM 4.3 MEQ/L (3.5-5.1); TOTAL PROTEIN 6.6 GM/DL (6.4-8.2)
[2016-11-23 06:34] LABS: CREATININE FOR GFR 5.77 MG/DL (0.70-1.30); GLOMERULAR FILTRATION RATE 10.1 (>35)
[2016-11-23 06:42] LABS: ANISOCYTOSIS 1+
[2016-11-23 07:52] LABS: ALBUMIN/GLOBULIN RATIO 0.62 (1.00-1.93)
[2016-11-23] MEDS: ASPIRIN 81 MG CHEW TABLET PO SCH (08:12)
[2016-11-23] MEDS: GABAPENTIN 300 MG CAP PO SCH ×2 (08:12→20:31)
[2016-11-23] MEDS: predniSONE 5 MG TAB PO SCH (08:12)
[2016-11-23] MEDS: CALCIUM ACETATE 667 MG GELCAP PO SCH ×3 (08:12→20:31)
[2016-11-23] MEDS: FEBUXOSTAT 40 MG TABLET (ULORIC) PO SCH (08:12)
[2016-11-23] MEDS: HEPARIN SOD (PORCINE) 5000 UNITS/ML VIAL SQ SCH ×2 (08:13→20:31)
[2016-11-23] MEDS: MIRALAX *UNIT DOSE* 17GM PACKET PO SCH (08:13)
[2016-11-23] MEDS: MULTIVITAMINS/MINERALS THERAP 1 TAB PO SCH (08:13)
[2016-11-23] MEDS: PANTOPRAZOLE 40MG TAB (PROTONIX) PO SCH (08:13)
[2016-11-23] MEDS: HumaLOG INSULIN (NovoLOG) PER UNIT SC SCH ×4 (08:15→21:00)
--- NOTE | 2016-11-23 10:04 | IPN ---
DATE: 11/22/2016 Mr. Rodriguez is seen this morning on his bedside. He is in good spirits. He reports that he was seen by Dr. Wooten and on Thursday he is going to have amputation of three toes. The patient denies any fever or chills at present. He has no dyspnea, chest pain, nausea or vomiting. He did have a hemodialysis yesterday, which he tolerated very well. PHYSICAL EXAMINATION: Temperature 98.7 degrees Fahrenheit, heart rate 100 per minute and respiratory rate 20 per minute. Blood pressure 128/78 mmHg and oxygen saturation 98% on 2 liters of oxygen. Head is atraumatic. Ears, nose and throat are unremarkable. Neck veins are only mildly distended. His heart sounds are tachycardiac and irregular. Lungs with diminished breath sounds bilaterally. Abdomen is soft and nontender and bowel sounds are present. Extremities have no cyanosis or clubbing. He has ischemic gangrenous changes in his toes of both feet. Neurologically, he is awake, alert and oriented times three. Today's labs show WBC count 6.6, hemoglobin 10.9 and hematocrit 35.8. Platelets 245. Sodium 140 and potassium 4.0. BUN 21 and creatinine 3.98. Glucose 224 and calcium 8.5. Total protein is 6.4 and albumin 2.4. PROBLEMS: 1. End-stage renal disease. The patient underwent hemodialysis yesterday. His next dialysis will be scheduled for Thursday or Thursday. His regular dialysis days are Thursday, and Thursday. He has surgery scheduled for Thursday, so we will try to dialyze him again on Thursday. 2. Congestive heart failure. His volume status seems reasonably well-compensated. At this point, there is no emergent indication for dialysis today or tomorrow. 3. Hyperkalemia. His potassium level has corrected with hemodialysis. We will continue to monitor his electrolytes as he does have risk of recurrence of hyperkalemia due to tissue necrosis with gangrene. We will consider dialysis either Thursday or Thursday depending upon his overall condition. 4. Anemia. His anemia has been stable and does not need any intervention at this point. 5. Ischemic toes. The patient is going to have amputation of bilateral big toes and another ischemic toe as per Dr. Wooten. He will have a right third toe and bilateral big toes amputated. 6. Chronic obstructive pulmonary disease (COPD). At this point, he is stable and asymptomatic. He remains on chronic oxygen due to chronic hypoxemia. 7. Cellulitis. The patient remains on ceftazidime and vancomycin. He is currently afebrile and will continue with the antibiotics until after his amputation.
[2016-11-23 14:00] VITALS: BP 129/67
[2016-11-23] MEDS: NORCO, ANEXSIA 5/325MG TABLET (HYDROcodone/ACETAMINOPHEN) PO PRN (14:04)
--- NOTE | 2016-11-23 14:22 | IPNPDOC ---
Subjective Date Seen The patient was seen on 11/23/16. Subjective Chief Complaint/HPI The patient is a 81-year-old male admitted with a reason for visit of Cellulitis ,Fever,Osteomyelitis Ankle Or Foot,Toe G. Events since last encounter Pt doing well today. Awaiting surgical amputation. Denies fevers, chills, or sweats. Constitutional: Denies: Chills, Fever Cardiovascular: Denies: Chest Pain, Palpitations Gastrointestinal: Denies: Abdominal Pain, Diarrhea, Constipation Musculoskeletal: Reports: Foot Pain (occ neuropathic pain) Objective Physical Examination General Exam: Positive: Alert, Cooperative Eye Exam: Positive: PERRLA, Conjunctiva & lids normal ENT Exam: Positive: Atraumatic, Mucous membr. moist/pink, Pharynx Normal Neck Exam: Positive: Supple Chest Exam: Positive: Clear to auscultation, Normal air movement Heart Exam: Positive: Rate Normal Abdomen Exam: Positive: Normal bowel sounds, Soft, Negative: Tenderness Extremity Exam: Positive: Tenderness, Other (dry gangrene with eschar ) Skin Exam: Positive: Nl turgor and temperature, Other skin issue (erythema L soliz (receded from previously marked borders)) Neuro Exam: Positive: Normal Speech, Normal Tone Psych Exam: Positive: Mental status NL, Mood NL, Oriented x 3, Negative: Memory Intact (but alert and oriented x 3) Assessment /Plan Problems (1) Osteomyelitis of ankle or foot Status: Acute Problem Text: 11/23: Waiting amputations. Plavix on hold. Vancomycin day 4, ceftazidime day 3 11/22: Waiting amputations. Plavix on hold. Vancomycin day 3, ceftazidime day 2 11/21/2016: plan for amputation bilateral 1st toes and right foot 3 rd toe next week. Plavix on HOLD x 5 days. 11/20 -- podiatry consulted Discussed with radiology, and ordered MRI of feet bilat. If consistent with osteo, will consult podiatry. Empiric antibiotics ordered. (2) Toe gangrene Status: Acute Problem Text: 11/23: Awaiting surgical amputation 11/22: Awaiting surgical amputation 11/21/16: See osteomyelitis section. 11/20 -- dry gangrene. Imaging support osteo. Podiatry consulted. Continue abx. with likely osteomyelitis. Will consult podiatry. (3) Peripheral vascular disease Status: Chronic Problem Text: Contributes to dry gangrene of multiple toes. (4) ESRD (end stage renal disease) on dialysis Status: Chronic Problem Text: Nephro consulted and following. Attempting to maintain routine HD days. (5) COPD (chronic obstructive pulmonary disease) Status: Chronic Problem Text: continue home medications. (6) CAD (coronary artery disease) Status: Chronic Problem Text: asymptomatic, continue home medications (7) Diabetes Status: Chronic Problem Text: on sliding scale insulin Plan/VTE VTE Prophylaxis Ordered?: No VTE Exclusion Mechanical Proph: Other (on hold in anticipation of surgery) VS, I&O, 24H, Fishbone Vital Signs/I&O Vital Signs Date Time Temp Pulse Resp B/P (MAP) Pulse Ox O2 Delivery O2 Flow Rate FiO2 11/23/16 14:04 20 11/23/16 08:30 Nasal Cannula 2.0 11/23/16 06:00 98.0 111 153/86 (108) 96 I&O- Last 24 Hours up to 6 AM 11/23/16 06:00 Intake Total 1140 ml Output Total 0 ml Balance 1140 ml Laboratory Data 24H LABS Laboratory Tests 2 11/22/16 16:39: Bedside Glucose (Misc Panel) 201H 11/22/16 20:25: Bedside Glucose (Misc Panel) 204H 11/23/16 05:42: White Blood Count 7.8, Red Blood Count 3.42L, Hemoglobin 10.8L, Hematocrit 35.9L , Mean Corpuscular Volume 104.9H, Mean Corpuscular Hemoglobin 31.5, Mean Corpuscular Hemoglobin Concent 30.0L, Red Cell Distribution Width 16.8H, Platelet Count 237, Neutrophils (%) (Auto) 65.9, Lymphocytes (%) (Auto) 14.8L, Monocytes (%) (Auto) 8.0H, Eosinophils (%) (Auto) 7.0H, Basophils (%) (Auto) 0.9 , Neutrophils # (Auto) 5.2, Lymphocytes # (Auto) 1.4L, Monocytes # (Auto) 0.6, Eosinophils # (Auto) 0.6H, Basophils # (Auto) 0.1, Large Unclassified Cells % 3.3, Large Unclassified Cells # 0.3, Platelet Estimate NORMAL, Anisocytosis 1+, Macrocytosis 2+, Anion Gap 10, Glomerular Filtration Rate 10.1L, Blood Urea Nitrogen 31H, Creatinine 5.77H, Sodium Level 142, Potassium Level 4.3, Chloride Level 104, Carbon Dioxide Level 28, Calcium Level 9.0, Aspartate Amino Transf ( AST/SGOT) 15, Alanine Aminotransferase (ALT/SGPT) 14, Alkaline Phosphatase 62, Total Bilirubin 0.3, Total Protein 6.6, Albumin 2.5L, Albumin/Globulin Ratio 0.62L 11/23/16 11:27: Bedside Glucose (Misc Panel) 169H CBC/BMP Laboratory Tests 11/23/16 05:42 Red Blood Count 3.42 L, Mean Corpuscular Volume 104.9 H, Mean Corpuscular Hemoglobin 31.5, Mean Corpuscular Hemoglobin Concent 30.0 L, Red Cell Distribution Width 16.8 H, Neutrophils (%) (Auto) 65.9, Lymphocytes (%) (Auto) 14.8 L, Monocytes (%) (Auto) 8.0 H, Eosinophils (%) (Auto) 7.0 H, Basophils (%) (Auto) 0.9, Neutrophils # (Auto) 5.2, Lymphocytes # (Auto) 1.4 L, Monocytes # ( Auto) 0.6, Eosinophils # (Auto) 0.6 H, Basophils # (Auto) 0.1, Calcium Level 9.0 , Aspartate Amino Transf (AST/SGOT) 15, Alanine Aminotransferase (ALT/SGPT) 14, Alkaline Phosphatase 62, Total Bilirubin 0.3, Total Protein 6.6, Albumin 2.5 L Microbiology Microbiology 11/19/16 Blood Culture - Preliminary, Resulted No Growth after 72 hours. All specime... 11/19/16 Blood Culture - Preliminary, Resulted No Growth after 72 hours. All specime... 11/19/16 Influenza Virus Type A Antigen - Final, Complete 11/19/16 Influenza Virus Type B Antigen - Final, Complete 11/19/16 Urine Culture - Final, Complete Proteus Mirabilis RAY FIGUEREDO MD Nov 23, 2016 14:22
[2016-11-23] MEDS: CHECK TO SEE IF PATIENT IS RECEIVING DIALYSIS TODAY AND REFER TO THE VANCOMYCIN ORDER XX SCH ×2 (16:00)
[2016-11-23] MEDS: ATORVASTATIN 20 MG TAB PO SCH (20:31)
[2016-11-23 22:00] VITALS: BP 140/88
[2016-11-24] MEDS: MIRALAX *UNIT DOSE* 17GM PACKET PO SCH (05:55)
[2016-11-24] MEDS: HEPARIN SOD (PORCINE) 5000 UNITS/ML VIAL SQ SCH ×2 (05:55→21:26)
[2016-11-24] MEDS: GABAPENTIN 300 MG CAP PO SCH ×2 (05:56→21:26)
[2016-11-24] MEDS: ASPIRIN 81 MG CHEW TABLET PO SCH (05:56)
[2016-11-24] MEDS: CALCIUM ACETATE 667 MG GELCAP PO SCH ×3 (05:56→21:26)
[2016-11-24] MEDS: PANTOPRAZOLE 40MG TAB (PROTONIX) PO SCH (05:56)
[2016-11-24] MEDS: MULTIVITAMINS/MINERALS THERAP 1 TAB PO SCH (05:56)
[2016-11-24] MEDS: predniSONE 5 MG TAB PO SCH (05:57)
[2016-11-24 06:00] VITALS: BP 142/86
[2016-11-24] MEDS: FEBUXOSTAT 40 MG TABLET (ULORIC) PO SCH (06:10)
--- NOTE | 2016-11-24 06:56 | IPN ---
DATE: 11/23/2016 Mr. Rodriguez is seen this morning on his bedside. He is feeling well and denies any new complaints. He has no nausea, vomiting, chest pain, fever, or chills. He does have chronic hypoxemia and remains on oxygen. On physical examination, temperature 98 degrees Fahrenheit, heart rate 110 per minute and respiratory rate 20 per minute. Blood pressure 153/86 mmHg and oxygen saturation 96% on 2 liters oxygen. Head is atraumatic. Neck is supple and without jugular venous distention (JVD) or thyroid enlargement. Heart sounds are irregular in rhythm. Lungs with diminished breath sounds at bases bilaterally. Abdomen is soft and nontender. Bowel sounds are present. There is no palpable organomegaly. Extremities: Have no cyanosis or clubbing. He does have chronic ischemic changes with gangrene on both feet toes and feet are covered with socks today, I did not remove them. Neurologically, he is awake, alert and oriented times three. Today's labs show WBC count 7.8, hemoglobin 10.8 and hematocrit 35.9. Platelets 237. Sodium 142 and potassium 4.3. BUN 31 and creatinine 5.77. Calcium level is 9.0. PROBLEMS: 1. End-stage renal disease. The patient was dialyzed on Thursday. We will plan to dialyze him again tomorrow. He is going to have surgery on Thursday and we may have to dialyze him on Thursday and Thursday this week. Electrolytes are within normal range. 2. Congestive heart failure and hypoxemia. This a chronic issue. His volume status seems to be reasonably well compensated. Will try to optimize his volume status prior to surgery. 3. Anemia. His anemia has been stable and does not need any intervention at this point. 4. Gout. The patient remains asymptomatic and will continue with Uloric 40 mg daily. 5. Chronic obstructive pulmonary disease (COPD). The patient is at baseline and comfortable today. He remains on chronic nebulizers and inhalers. 6. Gangrene of toes and cellulitis. The patient is going to have amputation of both big toes and third toe on the left side on Thursday. He remains on vancomycin and ceftriaxone. 7. Diabetes. Diabetes seems to be reasonably well-controlled. The patient remains on insulin coverage.
[2016-11-24 07:02] LABS: ADD MORPHOLOGY? YES; BASO # 0.1 K/mm3 (0.0-0.2); BASO % 0.9 % (0.0-1.0); EOS # 0.5 K/mm3 (0.0-0.50); EOS % 7.2 % (0.0-3.0); LARGE UNSTAINED CELL # 0.3 K/mm3 (0.0-0.4); LARGE UNSTAINED CELL % 4.7 % (0.0-4.0); LYMPH # 1.2 K/mm3 (1.5-4.5); MEAN CORPUSCULAR HEMOGLOBIN 31.6 pg (27.0-33.0); MEAN CORPUSCULAR HGB CONC 30.3 g/dl (32.0-36.5); MONO # 0.4 K/mm3 (0.0-0.8); MONO % 6.4 % (0.0-5.0); NEUTROPHILS % 62.7 % (36.0-66.0); PLATELET COUNT, AUTOMATED 241 k/mm3 (150-450); RED CELL DISTRIBUTION WIDTH 16.3 % (11.5-14.5); WHITE BLOOD COUNT 6.4 K/mm3 (4.0-10.0)
[2016-11-24 07:25] LABS: ALBUMIN 2.5 GM/DL (3.2-5.2); ALBUMIN/GLOBULIN RATIO 0.6 (1.00-1.93); BILIRUBIN,TOTAL 0.3 MG/DL (0.2-1.0); CALCIUM LEVEL 8.4 MG/DL (8.8-10.2); CREATININE FOR GFR 7.48 MG/DL (0.70-1.30); GLOMERULAR FILTRATION RATE 7.5 (>35); POTASSIUM SERUM 5.1 MEQ/L (3.5-5.1); TOTAL PROTEIN 6.7 GM/DL (6.4-8.2)
[2016-11-24] MEDS: NORCO, ANEXSIA 5/325MG TABLET (HYDROcodone/ACETAMINOPHEN) PO PRN ×3 (07:57→21:33)
[2016-11-24] MEDS: HumaLOG INSULIN (NovoLOG) PER UNIT SC SCH ×4 (07:59→21:00)
[2016-11-24] MEDS ORDERED: HEPARIN 1,000 UNITS/ML 10ML VIAL (FOR RADIOLOGY& DIALYSIS ONLY) XX ONE (11:00)
[2016-11-24] MEDS ORDERED: HEPARIN 1,000 UNITS/ML 10ML VIAL (FOR RADIOLOGY& DIALYSIS ONLY) IV ONE (11:00)
--- NOTE | 2016-11-24 12:49 | IPN ---
DATE: 11/24/2016 Mr. Rodriguez is seen during hemodialysis this morning. He reports not feeling well today. He has no specific complaints; however, just generally not feeling well. He has no fever or chills. His dyspnea is unchanged. He denies any vomiting or diarrhea. On physical examination, temperature is 97.7 degrees Fahrenheit, heart rate 90 per minute and respiratory rate 18 per minute. Blood pressure has been as low as 76/40 mmHg during dialysis. Right now, he is 109/60 mmHg. Head is atraumatic. Neck is supple and there is no abnormal jugular venous distention (JVD). Heart sounds are irregular in rhythm. Lungs with moderate bilateral air entry and occasional rhonchi. Abdomen: Soft and nontender. Without palpable organomegaly. Bowel sounds are normal. Extremities have no cyanosis or clubbing. Neurologically. he is awake, alert and at his baseline mentation. Today's labs show WBC count 6.4, hemoglobin 10.9 and hematocrit 36.0. Platelets 241. Sodium 138 and potassium 5.1. BUN is 45 and creatinine 7.48. PROBLEMS: 1. End-stage renal disease. The patient is being dialyzed today. His blood pressure was low and we have backed off on the fluid removal. At present, we will try to complete his dialysis treatment for 3 hours. 2. Hypotension, most likely related to fluid removal. He does not have any other symptoms to suggest sepsis. We will remove only 1 liter of fluid today as tolerated. 3. Peripheral vascular disease. The patient has been doing reasonably well and he is scheduled for amputation of three toes on Thursday due to ischemic gangrene. He remains on antibiotics. 4. Anemia. His anemia remains stable and does not need any intervention.
[2016-11-24 14:00] VITALS: BP 116/58
[2016-11-24] MEDS: CHECK TO SEE IF PATIENT IS RECEIVING DIALYSIS TODAY AND REFER TO THE VANCOMYCIN ORDER XX SCH ×2 (16:00→19:34)
--- NOTE | 2016-11-24 16:42 | IPNPDOC ---
Subjective Date Seen The patient was seen on 11/24/16. Subjective Chief Complaint/HPI The patient is a 81-year-old male admitted with a reason for visit of Cellulitis ,Fever,Osteomyelitis Ankle Or Foot,Toe G. Constitutional: Denies: Chills, Malaise ENT: Denies: Head Aches Skin: Denies: Rash, Bruising Pulmonary: Denies: Dyspnea, Cough, Pleuritic Chest Pain Cardiovascular: Denies: Chest Pain, Palpitations Gastrointestinal: Denies: Nausea, Vomiting, Abdominal Pain Genitourinary: Denies: Dysuria Hematologic: Denies: Bruising Psych: Reports: Mood Normal Objective Physical Examination General Exam: Positive: Alert, Cooperative Eye Exam: Positive: PERRLA, Conjunctiva & lids normal ENT Exam: Positive: Atraumatic, Mucous membr. moist/pink, Pharynx Normal Neck Exam: Positive: Supple Chest Exam: Positive: Clear to auscultation, Normal air movement Heart Exam: Positive: Rate Normal Abdomen Exam: Positive: Normal bowel sounds, Soft, Negative: Tenderness Extremity Exam: Positive: Tenderness, Other (dry gangrene with eschar ) Skin Exam: Positive: Nl turgor and temperature, Other skin issue (erythema L soliz (receded from previously marked borders)) Neuro Exam: Positive: Normal Speech, Normal Tone Psych Exam: Positive: Mental status NL, Mood NL, Oriented x 3, Negative: Memory Intact (but alert and oriented x 3) Assessment /Plan Problems (1) Osteomyelitis of ankle or foot Status: Acute Problem Text: 11/24/16: patient has no new problems. no fevers no chills.. seems unsure of which toes are to be amputated 11/23: Waiting amputations. Plavix on hold. Vancomycin day 4, ceftazidime day 3 11/22: Waiting amputations. Plavix on hold. Vancomycin day 3, ceftazidime day 2 11/21/2016: plan for amputation bilateral 1st toes and right foot 3 rd toe next week. Plavix on HOLD x 5 days. 11/20 -- podiatry consulted Discussed with radiology, and ordered MRI of feet bilat. If consistent with osteo, will consult podiatry. Empiric antibiotics ordered. (2) Toe gangrene Status: Acute Problem Text: 11/23: Awaiting surgical amputation 11/22: Awaiting surgical amputation 11/21/16: See osteomyelitis section. 11/20 -- dry gangrene. Imaging support osteo. Podiatry consulted. Continue abx. with likely osteomyelitis. Will consult podiatry. (3) Peripheral vascular disease Status: Chronic Response to Treatment: Stable Problem Text: Contributes to dry gangrene of multiple toes. (4) ESRD (end stage renal disease) on dialysis Status: Chronic Problem Specific Plan: Consult Specialist Problem Text: Nephro consulted and following. Attempting to maintain routine HD days. (5) COPD (chronic obstructive pulmonary disease) Status: Chronic Response to Treatment: Stable Problem Specific Plan: Monitor Clinically Problem Text: continue home medications. (6) CAD (coronary artery disease) Status: Chronic Response to Treatment: Stable Problem Specific Plan: Monitor Clinically Problem Text: asymptomatic, continue home medications (7) Diabetes Status: Chronic Response to Treatment: Stable Problem Text: on sliding scale insulin Plan/VTE VTE Prophylaxis Ordered?: No VTE Exclusion Mechanical Proph: Other (on hold in anticipation of surgery) VS, I&O, 24H, Fishbone Vital Signs/I&O Vital Signs Date Time Temp Pulse Resp B/P (MAP) Pulse Ox O2 Delivery O2 Flow Rate FiO2 11/24/16 14:00 97.9 94 16 116/58 (77) 95 Nasal Cannula 2.0 I&O- Last 24 Hours up to 6 AM 11/24/16 06:00 Intake Total 1920 ml Output Total 0 ml Balance 1920 ml Laboratory Data 24H LABS Laboratory Tests 2 11/23/16 16:52: Bedside Glucose (Misc Panel) 196H 11/23/16 20:51: Bedside Glucose (Misc Panel) 225H 11/24/16 06:37: White Blood Count 6.4, Red Blood Count 3.46L, Hemoglobin 10.9L, Hematocrit 36.0L , Mean Corpuscular Volume 104.0H, Mean Corpuscular Hemoglobin 31.6, Mean Corpuscular Hemoglobin Concent 30.3L, Red Cell Distribution Width 16.3H, Platelet Count 241, Neutrophils (%) (Auto) 62.7, Lymphocytes (%) (Auto) 18.0L, Monocytes (%) (Auto) 6.4H, Eosinophils (%) (Auto) 7.2H, Basophils (%) (Auto) 0.9 , Neutrophils # (Auto) 4.0, Lymphocytes # (Auto) 1.2L, Monocytes # (Auto) 0.4, Eosinophils # (Auto) 0.5, Basophils # (Auto) 0.1, Large Unclassified Cells % 4.7H, Large Unclassified Cells # 0.3, Platelet Estimate NORMAL, Macrocytosis 2+ , Anion Gap 8, Glomerular Filtration Rate 7.5L, Blood Urea Nitrogen 45H, Creatinine 7.48H, Sodium Level 138, Potassium Level 5.1, Chloride Level 102, Carbon Dioxide Level 28, Calcium Level 8.4L, Aspartate Amino Transf (AST/SGOT) 11L, Alanine Aminotransferase (ALT/SGPT) 13, Alkaline Phosphatase 61, Total Bilirubin 0.3, Total Protein 6.7, Albumin 2.5L, Albumin/Globulin Ratio 0.60L 11/24/16 13:11: Bedside Glucose (Misc Panel) 129H CBC/BMP Laboratory Tests 11/24/16 06:37 Red Blood Count 3.46 L, Mean Corpuscular Volume 104.0 H, Mean Corpuscular Hemoglobin 31.6, Mean Corpuscular Hemoglobin Concent 30.3 L, Red Cell Distribution Width 16.3 H, Neutrophils (%) (Auto) 62.7, Lymphocytes (%) (Auto) 18.0 L, Monocytes (%) (Auto) 6.4 H, Eosinophils (%) (Auto) 7.2 H, Basophils (%) (Auto) 0.9, Neutrophils # (Auto) 4.0, Lymphocytes # (Auto) 1.2 L, Monocytes # ( Auto) 0.4, Eosinophils # (Auto) 0.5, Basophils # (Auto) 0.1, Calcium Level 8.4 L , Aspartate Amino Transf (AST/SGOT) 11 L, Alanine Aminotransferase (ALT/SGPT) 13 , Alkaline Phosphatase 61, Total Bilirubin 0.3, Total Protein 6.7, Albumin 2.5 L Microbiology Microbiology 11/19/16 Blood Culture - Final, Complete NO GROWTH AFTER 5 DAYS 11/19/16 Blood Culture - Final, Complete NO GROWTH AFTER 5 DAYS 11/19/16 Influenza Virus Type A Antigen - Final, Complete 11/19/16 Influenza Virus Type B Antigen - Final, Complete 11/19/16 Urine Culture - Final, Complete Proteus Mirabilis Darrian Bee MD Nov 24, 2016 16:41
[2016-11-24] MEDS: cefTAZidime 1 GM in D5W MINI-BAG PLUS 100 ML IV SCH (17:16)
[2016-11-24] MEDS: VANCOMYCIN HCL 1,000 MG, VIAL MATE ADAPTER 1 EACH in D5W 250 ML IV SCH (19:39)
[2016-11-24] MEDS: ATORVASTATIN 20 MG TAB PO SCH (21:26)
[2016-11-24 22:00] VITALS: BP 130/65
[2016-11-25 06:00] VITALS: BP 129/88
[2016-11-25 08:31] LABS: ADD MORPHOLOGY? YES; BASO # 0.1 K/mm3 (0.0-0.2); BASO % 1.4 % (0.0-1.0); EOS # 0.5 K/mm3 (0.0-0.50); EOS % 7.7 % (0.0-3.0); LARGE UNSTAINED CELL # 0.2 K/mm3 (0.0-0.4); LARGE UNSTAINED CELL % 3.3 % (0.0-4.0); LYMPH # 1.6 K/mm3 (1.5-4.5); LYMPH % 20.4 % (24.0-44.0); MEAN CORPUSCULAR HEMOGLOBIN 30.9 pg (27.0-33.0); MEAN CORPUSCULAR HGB CONC 29.3 g/dl (32.0-36.5); MEAN CORPUSCULAR VOLUME 105.5 fl (80.0-96.0); MONO # 0.6 K/mm3 (0.0-0.8); MONO % 8.6 % (0.0-5.0); NEUTROPHILS % 58.6 % (36.0-66.0); PLATELET COUNT, AUTOMATED 248 k/mm3 (150-450); RED CELL DISTRIBUTION WIDTH 16.7 % (11.5-14.5); WHITE BLOOD COUNT 6.8 K/mm3 (4.0-10.0)
[2016-11-25 08:53] LABS: ALBUMIN 2.7 GM/DL (3.2-5.2); ALBUMIN/GLOBULIN RATIO 0.73 (1.00-1.93); BILIRUBIN,TOTAL 0.3 MG/DL (0.2-1.0); CALCIUM LEVEL 8.4 MG/DL (8.8-10.2); CREATININE FOR GFR 4.94 MG/DL (0.70-1.30); GLOMERULAR FILTRATION RATE 12.1 (>35); POTASSIUM SERUM 4.8 MEQ/L (3.5-5.1); TOTAL PROTEIN 6.4 GM/DL (6.4-8.2)
[2016-11-25] MEDS: MIRALAX *UNIT DOSE* 17GM PACKET PO SCH (09:00)
[2016-11-25] MEDS: PANTOPRAZOLE 40MG TAB (PROTONIX) PO SCH (09:13)
[2016-11-25] MEDS: GABAPENTIN 300 MG CAP PO SCH ×2 (09:13→20:40)
[2016-11-25] MEDS: CALCIUM ACETATE 667 MG GELCAP PO SCH ×3 (09:13→20:39)
[2016-11-25] MEDS: MULTIVITAMINS/MINERALS THERAP 1 TAB PO SCH (09:13)
[2016-11-25] MEDS: predniSONE 5 MG TAB PO SCH (09:13)
[2016-11-25] MEDS: HEPARIN SOD (PORCINE) 5000 UNITS/ML VIAL SQ SCH (09:13)
[2016-11-25] MEDS: ASPIRIN 81 MG CHEW TABLET PO SCH (09:13)
[2016-11-25] MEDS: FEBUXOSTAT 40 MG TABLET (ULORIC) PO SCH (09:13)
[2016-11-25] MEDS: HumaLOG INSULIN (NovoLOG) PER UNIT SC SCH ×4 (09:14→20:40)
--- NOTE | 2016-11-25 10:17 | IPNPDOC ---
Subjective Date Seen The patient was seen on 11/25/16. Subjective Chief Complaint/HPI The patient is a 81-year-old male admitted with a reason for visit of Cellulitis ,Fever,Osteomyelitis Ankle Or Foot,Toe G. Events since last encounter Plan is for toe amp with Dr. Wooten tomorrow. Constitutional: Denies: Chills, Fever, Night Sweats Pulmonary: Denies: Dyspnea, Cough Cardiovascular: Denies: Chest Pain, Palpitations, Orthopnea, Paroxysmal Noc. Dyspnea, Lt Headedness Objective Physical Examination General Exam: Positive: Alert, Cooperative Eye Exam: Positive: PERRLA, Conjunctiva & lids normal ENT Exam: Positive: Atraumatic, Mucous membr. moist/pink, Pharynx Normal Neck Exam: Positive: Supple Chest Exam: Positive: Clear to auscultation, Normal air movement Heart Exam: Positive: Rate Normal Abdomen Exam: Positive: Normal bowel sounds, Soft, Negative: Tenderness Extremity Exam: Positive: Tenderness, Other (dry gangrene with eschar ) Skin Exam: Positive: Nl turgor and temperature, Other skin issue (erythema L soliz (receded from previously marked borders)) Neuro Exam: Positive: Normal Speech, Normal Tone Psych Exam: Positive: Mental status NL, Mood NL, Oriented x 3, Negative: Memory Intact (but alert and oriented x 3) Assessment /Plan Problems (1) Osteomyelitis of ankle or foot Status: Acute Problem Text: 11/25/16: amputation planned for tomorrow. 11/24/16: patient has no new problems. no fevers no chills.. seems unsure of which toes are to be amputated 11/23: Waiting amputations. Plavix on hold. Vancomycin day 4, ceftazidime day 3 11/22: Waiting amputations. Plavix on hold. Vancomycin day 3, ceftazidime day 2 11/21/2016: plan for amputation bilateral 1st toes and right foot 3 rd toe next week. Plavix on HOLD x 5 days. 11/20 -- podiatry consulted Discussed with radiology, and ordered MRI of feet bilat. If consistent with osteo, will consult podiatry. Empiric antibiotics ordered. (2) Toe gangrene Status: Acute Problem Text: 11/23: Awaiting surgical amputation 11/22: Awaiting surgical amputation 11/21/16: See osteomyelitis section. 11/20 -- dry gangrene. Imaging support osteo. Podiatry consulted. Continue abx. with likely osteomyelitis. Will consult podiatry. (3) Peripheral vascular disease Status: Chronic Response to Treatment: Stable Problem Text: Contributes to dry gangrene of multiple toes. (4) ESRD (end stage renal disease) on dialysis Status: Chronic Problem Specific Plan: Consult Specialist Problem Text: Nephro consulted and following. Attempting to maintain routine HD days. (5) COPD (chronic obstructive pulmonary disease) Status: Chronic Response to Treatment: Stable Problem Specific Plan: Monitor Clinically Problem Text: continue home medications. (6) CAD (coronary artery disease) Status: Chronic Response to Treatment: Stable Problem Specific Plan: Monitor Clinically Problem Text: asymptomatic, continue home medications (7) Diabetes Status: Chronic Response to Treatment: Stable Problem Text: on sliding scale insulin Plan/VTE VTE Prophylaxis Ordered?: No VTE Exclusion Mechanical Proph: Other (on hold in anticipation of surgery) VS, I&O, 24H, Fishbone Vital Signs/I&O Vital Signs Date Time Temp Pulse Resp B/P (MAP) Pulse Ox O2 Delivery O2 Flow Rate FiO2 11/25/16 06:00 98.1 100 18 129/88 (102) 99 Nasal Cannula 2.0 I&O- Last 24 Hours up to 6 AM 11/25/16 05:59 Intake Total 1500 ml Output Total 1000 ml Balance 500 ml Laboratory Data 24H LABS Laboratory Tests 2 11/24/16 13:11: Bedside Glucose (Misc Panel) 129H 11/24/16 17:12: Bedside Glucose (Misc Panel) 226H 11/24/16 19:50: Bedside Glucose (Misc Panel) 186H 11/25/16 07:09: Bedside Glucose (Misc Panel) 160H 11/25/16 07:59: White Blood Count 6.8, Red Blood Count 3.56L, Hemoglobin 11.0L, Hematocrit 37.5L , Mean Corpuscular Volume 105.5H, Mean Corpuscular Hemoglobin 30.9, Mean Corpuscular Hemoglobin Concent 29.3L, Red Cell Distribution Width 16.7H, Platelet Count 248, Neutrophils (%) (Auto) 58.6, Lymphocytes (%) (Auto) 20.4L, Monocytes (%) (Auto) 8.6H, Eosinophils (%) (Auto) 7.7H, Basophils (%) (Auto) 1.4H, Neutrophils # (Auto) 4.0, Lymphocytes # (Auto) 1.6, Monocytes # (Auto) 0.6 , Eosinophils # (Auto) 0.5, Basophils # (Auto) 0.1, Large Unclassified Cells % 3.3, Large Unclassified Cells # 0.2, Platelet Estimate NORMAL, Macrocytosis 2+, Anion Gap 8, Glomerular Filtration Rate 12.1L, Blood Urea Nitrogen 24H, Creatinine 4.94H, Sodium Level 140, Potassium Level 4.8, Chloride Level 103, Carbon Dioxide Level 29, Calcium Level 8.4L, Aspartate Amino Transf (AST/SGOT) 16, Alanine Aminotransferase (ALT/SGPT) 17, Alkaline Phosphatase 68, Total Bilirubin 0.3, Total Protein 6.4, Albumin 2.7L, Albumin/Globulin Ratio 0.73L CBC/BMP Laboratory Tests 11/25/16 07:59 Red Blood Count 3.56 L, Mean Corpuscular Volume 105.5 H, Mean Corpuscular Hemoglobin 30.9, Mean Corpuscular Hemoglobin Concent 29.3 L, Red Cell Distribution Width 16.7 H, Neutrophils (%) (Auto) 58.6, Lymphocytes (%) (Auto) 20.4 L, Monocytes (%) (Auto) 8.6 H, Eosinophils (%) (Auto) 7.7 H, Basophils (%) (Auto) 1.4 H, Neutrophils # (Auto) 4.0, Lymphocytes # (Auto) 1.6, Monocytes # ( Auto) 0.6, Eosinophils # (Auto) 0.5, Basophils # (Auto) 0.1, Calcium Level 8.4 L , Aspartate Amino Transf (AST/SGOT) 16, Alanine Aminotransferase (ALT/SGPT) 17, Alkaline Phosphatase 68, Total Bilirubin 0.3, Total Protein 6.4, Albumin 2.7 L Microbiology Microbiology 11/19/16 Blood Culture - Final, Complete NO GROWTH AFTER 5 DAYS 11/19/16 Blood Culture - Final, Complete NO GROWTH AFTER 5 DAYS 11/19/16 Influenza Virus Type A Antigen - Final, Complete 11/19/16 Influenza Virus Type B Antigen - Final, Complete 11/19/16 Urine Culture - Final, Complete Proteus Mirabilis Attending Note Attending Note patient reports trouble with loose stool and control. will stop miralax for now. Ira Ham Nov 25, 2016 10:17 Darrian Bee MD Nov 25, 2016 13:41
[2016-11-25 14:00] VITALS: BP 136/81
[2016-11-25] MEDS: NORCO, ANEXSIA 5/325MG TABLET (HYDROcodone/ACETAMINOPHEN) PO PRN (15:44)
[2016-11-25] MEDS: CHECK TO SEE IF PATIENT IS RECEIVING DIALYSIS TODAY AND REFER TO THE VANCOMYCIN ORDER XX SCH ×2 (15:57)
[2016-11-25] MEDS: ATORVASTATIN 20 MG TAB PO SCH (20:40)
[2016-11-25 22:00] VITALS: BP 144/83
[2016-11-26] VITALS (10 sets, daily range): BP systolic 128–180; BP diastolic 60–88
[2016-11-26] MEDS: ASPIRIN 81 MG CHEW TABLET PO SCH (04:52)
[2016-11-26] MEDS: GABAPENTIN 300 MG CAP PO SCH ×2 (06:06→21:43)
[2016-11-26] MEDS: MULTIVITAMINS/MINERALS THERAP 1 TAB PO SCH (06:06)
[2016-11-26] MEDS: PANTOPRAZOLE 40MG TAB (PROTONIX) PO SCH (06:06)
[2016-11-26] MEDS: CALCIUM ACETATE 667 MG GELCAP PO SCH ×3 (06:06→21:43)
[2016-11-26] MEDS: predniSONE 5 MG TAB PO SCH (06:06)
[2016-11-26] MEDS: FEBUXOSTAT 40 MG TABLET (ULORIC) PO SCH (06:06)
[2016-11-26 06:38] LABS: BASO # 0.1 K/mm3 (0.0-0.2); EOS # 0.4 K/mm3 (0.0-0.50); EOS % 5.8 % (0.0-3.0); LARGE UNSTAINED CELL # 0.2 K/mm3 (0.0-0.4); LARGE UNSTAINED CELL % 2.9 % (0.0-4.0); LYMPH # 1.5 K/mm3 (1.5-4.5); LYMPH % 16.6 % (24.0-44.0); MEAN CORPUSCULAR HEMOGLOBIN 30.7 pg (27.0-33.0); MEAN CORPUSCULAR VOLUME 102.4 fl (80.0-96.0); MONO # 0.7 K/mm3 (0.0-0.8); MONO % 8.5 % (0.0-5.0); NEUTROPHILS # 5.1 K/mm3 (1.8-7.7); NEUTROPHILS % 65.3 % (36.0-66.0); PLATELET COUNT, AUTOMATED 234 k/mm3 (150-450); RED CELL DISTRIBUTION WIDTH 16.4 % (11.5-14.5); WHITE BLOOD COUNT 7.8 K/mm3 (4.0-10.0)
[2016-11-26 07:02] LABS: ALBUMIN 2.5 GM/DL (3.2-5.2); ALBUMIN/GLOBULIN RATIO 0.64 (1.00-1.93); BILIRUBIN,TOTAL 0.3 MG/DL (0.2-1.0); CALCIUM LEVEL 8.7 MG/DL (8.8-10.2); CREATININE FOR GFR 6.51 MG/DL (0.70-1.30); GLOMERULAR FILTRATION RATE 8.8 (>35); TOTAL PROTEIN 6.4 GM/DL (6.4-8.2)
[2016-11-26 07:04] LABS: POTASSIUM SERUM 5.3 MEQ/L (3.5-5.1)
[2016-11-26] MEDS: HumaLOG INSULIN (NovoLOG) PER UNIT SC SCH ×4 (07:30→21:44)
[2016-11-26] MEDS: HEPARIN SOD (PORCINE) 5000 UNITS/ML VIAL SQ SCH ×2 (08:00→21:43)
--- NOTE | 2016-11-26 08:42 | IPNPDOC ---
Subjective Date Seen The patient was seen on 11/26/16. Subjective Chief Complaint/HPI The patient is a 81-year-old male admitted with a reason for visit of Cellulitis ,Fever,Osteomyelitis Ankle Or Foot,Toe G. Events since last encounter Plan is for HD today. OR time is 1700 for amputation of 1st toes bilateral and 3rd right toe. Constitutional: Denies: Chills, Fever, Night Sweats Pulmonary: Denies: Dyspnea, Cough Cardiovascular: Denies: Chest Pain, Palpitations, Orthopnea, Paroxysmal Noc. Dyspnea, Lt Headedness Gastrointestinal: Denies: Nausea, Vomiting, Abdominal Pain, Diarrhea, Constipation Objective Physical Examination General Exam: Positive: Alert, Cooperative Eye Exam: Positive: PERRLA, Conjunctiva & lids normal ENT Exam: Positive: Atraumatic, Mucous membr. moist/pink, Pharynx Normal Neck Exam: Positive: Supple Chest Exam: Positive: Clear to auscultation, Normal air movement Heart Exam: Positive: Rate Normal Abdomen Exam: Positive: Normal bowel sounds, Soft, Negative: Tenderness Extremity Exam: Positive: Tenderness, Other (dry gangrene with eschar ) Skin Exam: Positive: Nl turgor and temperature, Other skin issue (erythema L soliz (receded from previously marked borders)) Neuro Exam: Positive: Normal Speech, Normal Tone Psych Exam: Positive: Mental status NL, Mood NL, Oriented x 3, Negative: Memory Intact (but alert and oriented x 3) Assessment /Plan Problems (1) Osteomyelitis of ankle or foot Status: Acute Problem Text: 11/26/16: amputation planned for today 11/25/16: amputation planned for tomorrow. 11/24/16: patient has no new problems. no fevers no chills.. seems unsure of which toes are to be amputated 11/23: Waiting amputations. Plavix on hold. Vancomycin day 4, ceftazidime day 3 11/22: Waiting amputations. Plavix on hold. Vancomycin day 3, ceftazidime day 2 11/21/2016: plan for amputation bilateral 1st toes and right foot 3 rd toe next week. Plavix on HOLD x 5 days. 11/20 -- podiatry consulted Discussed with radiology, and ordered MRI of feet bilat. If consistent with osteo, will consult podiatry. Empiric antibiotics ordered. (2) Toe gangrene Status: Acute Problem Text: 11/23: Awaiting surgical amputation 11/22: Awaiting surgical amputation 11/21/16: See osteomyelitis section. 11/20 -- dry gangrene. Imaging support osteo. Podiatry consulted. Continue abx. with likely osteomyelitis. Will consult podiatry. (3) Peripheral vascular disease Status: Chronic Response to Treatment: Stable Problem Text: Contributes to dry gangrene of multiple toes. (4) ESRD (end stage renal disease) on dialysis Status: Chronic Problem Specific Plan: Consult Specialist Problem Text: Nephro consulted and following. Attempting to maintain routine HD days. (5) COPD (chronic obstructive pulmonary disease) Status: Chronic Response to Treatment: Stable Problem Specific Plan: Monitor Clinically Problem Text: continue home medications. (6) CAD (coronary artery disease) Status: Chronic Response to Treatment: Stable Problem Specific Plan: Monitor Clinically Problem Text: asymptomatic, continue home medications (7) Diabetes Status: Chronic Response to Treatment: Stable Problem Text: on sliding scale insulin Plan/VTE VTE Prophylaxis Ordered?: No VTE Exclusion Mechanical Proph: Other (on hold in anticipation of surgery) VS, I&O, 24H, Fishbone Vital Signs/I&O Vital Signs Date Time Temp Pulse Resp B/P (MAP) Pulse Ox O2 Delivery O2 Flow Rate FiO2 11/26/16 06:00 97.8 94 18 167/79 (108) 99 Nasal Cannula 2.0 I&O- Last 24 Hours up to 6 AM 11/26/16 06:00 Intake Total 770 ml Output Total 0 ml Balance 770 ml Laboratory Data 24H LABS Laboratory Tests 2 11/25/16 11:18: Bedside Glucose (Misc Panel) 97 11/25/16 16:42: Bedside Glucose (Misc Panel) 301H 11/25/16 20:04: Bedside Glucose (Misc Panel) 174H 11/26/16 06:10: White Blood Count 7.8, Red Blood Count 3.29L, Hemoglobin 10.1L, Hematocrit 33.7L , Mean Corpuscular Volume 102.4H, Mean Corpuscular Hemoglobin 30.7, Mean Corpuscular Hemoglobin Concent 30.0L, Red Cell Distribution Width 16.4H, Platelet Count 234, Neutrophils (%) (Auto) 65.3, Lymphocytes (%) (Auto) 16.6L, Monocytes (%) (Auto) 8.5H, Eosinophils (%) (Auto) 5.8H, Basophils (%) (Auto) 1.0 , Neutrophils # (Auto) 5.1, Lymphocytes # (Auto) 1.5, Monocytes # (Auto) 0.7, Eosinophils # (Auto) 0.4, Basophils # (Auto) 0.1, Large Unclassified Cells % 2.9 , Large Unclassified Cells # 0.2, Anion Gap 8, Glomerular Filtration Rate 8.8L, Blood Urea Nitrogen 37#H, Creatinine 6.51H, Sodium Level 135L, Potassium Level 5.3H, Chloride Level 100, Carbon Dioxide Level 27, Calcium Level 8.7L, Aspartate Amino Transf (AST/SGOT) 11L, Alanine Aminotransferase (ALT/SGPT) 15, Alkaline Phosphatase 62, Total Bilirubin 0.3, Total Protein 6.4, Albumin 2.5L, Albumin/Globulin Ratio 0.64L CBC/BMP Laboratory Tests 11/26/16 06:10 Red Blood Count 3.29 L, Mean Corpuscular Volume 102.4 H, Mean Corpuscular Hemoglobin 30.7, Mean Corpuscular Hemoglobin Concent 30.0 L, Red Cell Distribution Width 16.4 H, Neutrophils (%) (Auto) 65.3, Lymphocytes (%) (Auto) 16.6 L, Monocytes (%) (Auto) 8.5 H, Eosinophils (%) (Auto) 5.8 H, Basophils (%) (Auto) 1.0, Neutrophils # (Auto) 5.1, Lymphocytes # (Auto) 1.5, Monocytes # ( Auto) 0.7, Eosinophils # (Auto) 0.4, Basophils # (Auto) 0.1, Calcium Level 8.7 L , Aspartate Amino Transf (AST/SGOT) 11 L, Alanine Aminotransferase (ALT/SGPT) 15 , Alkaline Phosphatase 62, Total Bilirubin 0.3, Total Protein 6.4, Albumin 2.5 L Microbiology Microbiology 11/19/16 Blood Culture - Final, Complete NO GROWTH AFTER 5 DAYS 11/19/16 Blood Culture - Final, Complete NO GROWTH AFTER 5 DAYS 11/19/16 Influenza Virus Type A Antigen - Final, Complete 11/19/16 Influenza Virus Type B Antigen - Final, Complete 11/19/16 Urine Culture - Final, Complete Proteus Mirabilis Ira Ham [facility] Nov 26, 2016 08:42 Darrian Bee MD Nov 26, 2016 16:29
[2016-11-26] MEDS ORDERED: HEPARIN 1,000 UNITS/ML 10ML VIAL (FOR RADIOLOGY& DIALYSIS ONLY) IV ONE (11:00)
[2016-11-26] MEDS ORDERED: HEPARIN 1,000 UNITS/ML 10ML VIAL (FOR RADIOLOGY& DIALYSIS ONLY) XX ONE (11:00)
--- NOTE | 2016-11-26 14:04 | IPN ---
DATE OF VISIT: 11/25/2016 Mr. Rodriguez is seen this morning on his bedside. He was not feeling well yesterday during dialysis. However, today, he is feeling much better. He denies any dizziness or lightheadedness, though he is mostly in the bed. He denies any fever, chills, nausea, vomiting, abdominal pain, or chest pain. He does have chronic hypoxemia and remains on oxygen. On physical examination, temperature 97.8 degrees Fahrenheit, heart rate 100 per minute, and respiratory rate 18 per minute. Blood pressure 128/80 mmHg and oxygen saturation 99% on 2-liter oxygen. His head is atraumatic. Neck is supple and without jugular venous distention (JVD) or thyroid enlargement. Dialysis catheter is intact in right upper chest and right internal jugular vein. His heart sounds are tachycardiac and irregular. Lungs with moderate bilateral air entry and few basilar crackles. Abdomen: Soft and nontender. Bowel sounds are normal. Extremities have no cyanosis or clubbing. He does have ischemic and gangrenous changes in his toes, which are covered with socks at present. Today's laboratories show WBC count 6.8, hemoglobin 11.0, and hematocrit 37.5. Sodium 140 and potassium 4.8. BUN 24 and creatinine 4.94. Glucose 152 and calcium 8.4. PROBLEMS: 1. End-stage renal disease. The patient was dialyzed yesterday. We will plan to dialyze him again tomorrow morning. At present, his volume status is well-compensated, and electrolytes are within normal range. There is no need for dialysis today. 2. Hypoxemia. This is a chronic issue and related to chronic lung disease. His volume status is well-compensated. He could not tolerate more than 1 liter fluid removal yesterday with dialysis. At present, will need to continue with oxygen supplementation. 3. Gangrenous toes with peripheral vascular disease. The patient is scheduled for amputation of three toes tomorrow. He remains on antibiotics and is currently afebrile. 4. Anemia. His anemia is stable and does not need any intervention at present.
[2016-11-26] MEDS ORDERED: TOBRAMYCIN SULF 1.2 GM VIAL As Ordered ONE (15:38)
[2016-11-26] MEDS ORDERED: ROPIvacaine 0.5% 30 ML INJECTION (J2795) As Ordered ONE (15:38)
[2016-11-26] MEDS ORDERED: fentaNYL 100 MCG/2 ML INJECTION (J3010) As Ordered ONE (15:46)
[2016-11-26] MEDS ORDERED: PROPOFOL 200 MG/20 ML VIAL As Ordered ONE ×2 (15:46→16:43)
[2016-11-26] MEDS ORDERED: LIDOCAINE 2% INJ 100 MG/5 ML SDV (FOR ANES.) As Ordered ONE (15:46)
[2016-11-26] MEDS ORDERED: LR 1,000 ML IV SCH (17:30)
[2016-11-26] MEDS ORDERED: fentaNYL 100 MCG/2 ML INJECTION (J3010) IV PRN (17:30)
[2016-11-26] MEDS ORDERED: ONDANSETRON 4MG/2ML VIAL (J2405) IV PRN (17:30)
[2016-11-26] MEDS ORDERED: NORCO, ANEXSIA 5/325MG TABLET (HYDROcodone/ACETAMINOPHEN) PO PRN (17:30)
[2016-11-26] MEDS: CHECK TO SEE IF PATIENT IS RECEIVING DIALYSIS TODAY AND REFER TO THE VANCOMYCIN ORDER XX SCH ×3 (18:58→22:08)
--- NOTE | 2016-11-26 19:11 | REP ---
BILATERAL FOOT SERIES COMPLETE: 11/26/2016. Comparison: 11/19/2016. Clinical history: Postoperative evaluation of both feet. Osteomyelitis. Right foot: Three views show amputation of the great toe at the mid aspect of the proximal phalanx. The third toe is amputated at the MTP joint. Soft tissue swelling as well as vascular calcifications in the foot. Degenerative changes are seen at multiple joints. No heel spurs. Some dorsal spurring at the first CMC joint. Impression: 1. Status post amputation at the mid-shaft proximal phalanx right great toe and at the MTP joint of the third toe since the previous study. Left foot: Three views are provided. There is been interval amputation of the first toe at the mid distal junction of the proximal phalanx of the first toe. Soft tissue swelling. Postoperative changes with vascular calcifications about the foot and ankle as previously. Minor degenerative changes elsewhere. No other new or acute finding. Impression: 1. Status post amputation left great toe at the mid - distal portion of the proximal phalanx. Signed by Brandon Tomas MD 11/27/2016 08:47 A
[2016-11-26] MEDS: VANCOMYCIN HCL 1,000 MG, VIAL MATE ADAPTER 1 EACH in D5W 250 ML IV SCH (19:20)
[2016-11-26] MEDS: ATORVASTATIN 20 MG TAB PO SCH (21:43)
[2016-11-26] MEDS: cefTAZidime 1 GM in D5W MINI-BAG PLUS 100 ML IV SCH (22:08)
[2016-11-27] MEDS: NORCO, ANEXSIA 5/325MG TABLET (HYDROcodone/ACETAMINOPHEN) PO PRN ×3 (02:31→12:44)
[2016-11-27 03:05] VITALS: BP 148/74
[2016-11-27] MEDS: CALCIUM ACETATE 667 MG GELCAP PO SCH ×3 (08:05→21:00)
[2016-11-27] MEDS: GABAPENTIN 300 MG CAP PO SCH ×2 (08:05→21:00)
[2016-11-27] MEDS: predniSONE 5 MG TAB PO SCH (08:05)
[2016-11-27] MEDS: ASPIRIN 81 MG CHEW TABLET PO SCH (08:06)
[2016-11-27] MEDS: PANTOPRAZOLE 40MG TAB (PROTONIX) PO SCH (08:06)
[2016-11-27] MEDS: MULTIVITAMINS/MINERALS THERAP 1 TAB PO SCH (08:06)
[2016-11-27] MEDS: HEPARIN SOD (PORCINE) 5000 UNITS/ML VIAL SQ SCH ×2 (08:07→20:59)
[2016-11-27] MEDS: HumaLOG INSULIN (NovoLOG) PER UNIT SC SCH ×4 (08:08→21:00)
--- NOTE | 2016-11-27 08:52 | IPNPDOC ---
Subjective Date Seen The patient was seen on 11/27/16. Subjective Chief Complaint/HPI The patient is a 81-year-old male admitted with a reason for visit of Cellulitis ,Fever,Osteomyelitis Ankle Or Foot,Toe G. Events since last encounter s/p amputation of toes with Dr. Wooten yesterday. Denies c/o. Constitutional: Denies: Chills, Fever, Night Sweats Pulmonary: Denies: Dyspnea, Cough Cardiovascular: Denies: Chest Pain, Palpitations, Orthopnea, Paroxysmal Noc. Dyspnea, Lt Headedness Gastrointestinal: Denies: Nausea, Vomiting, Abdominal Pain, Diarrhea, Constipation Objective Physical Examination General Exam: Positive: Alert, Cooperative Eye Exam: Positive: PERRLA, Conjunctiva & lids normal ENT Exam: Positive: Atraumatic, Mucous membr. moist/pink, Pharynx Normal Neck Exam: Positive: Supple Chest Exam: Positive: Clear to auscultation, Normal air movement Heart Exam: Positive: Rate Normal Abdomen Exam: Positive: Normal bowel sounds, Soft, Negative: Tenderness Extremity Exam: Positive: Tenderness, Other (dressings C/D/I) Skin Exam: Positive: Nl turgor and temperature, Other skin issue (erythema L soliz (receded from previously marked borders)) Neuro Exam: Positive: Normal Speech, Normal Tone Psych Exam: Positive: Mental status NL, Mood NL, Oriented x 3, Negative: Memory Intact (but alert and oriented x 3) Assessment /Plan Problems (1) Osteomyelitis of ankle or foot Status: Acute Problem Text: 11/27/16: podiatry managing 11/26/16: amputation planned for today 11/25/16: amputation planned for tomorrow. 11/24/16: patient has no new problems. no fevers no chills.. seems unsure of which toes are to be amputated 11/23: Waiting amputations. Plavix on hold. Vancomycin day 4, ceftazidime day 3 11/22: Waiting amputations. Plavix on hold. Vancomycin day 3, ceftazidime day 2 11/21/2016: plan for amputation bilateral 1st toes and right foot 3 rd toe next week. Plavix on HOLD x 5 days. 11/20 -- podiatry consulted Discussed with radiology, and ordered MRI of feet bilat. If consistent with osteo, will consult podiatry. Empiric antibiotics ordered. (2) Toe gangrene Status: Acute Problem Text: 11/27/16: s/p amputation. 11/23: Awaiting surgical amputation 11/22: Awaiting surgical amputation 11/21/16: See osteomyelitis section. 11/20 -- dry gangrene. Imaging support osteo. Podiatry consulted. Continue abx. with likely osteomyelitis. Will consult podiatry. (3) Peripheral vascular disease Status: Chronic Response to Treatment: Stable Problem Text: Contributes to dry gangrene of multiple toes. (4) ESRD (end stage renal disease) on dialysis Status: Chronic Problem Specific Plan: Consult Specialist Problem Text: Nephro consulted and following. Attempting to maintain routine HD days. (5) COPD (chronic obstructive pulmonary disease) Status: Chronic Response to Treatment: Stable Problem Specific Plan: Monitor Clinically Problem Text: continue home medications. (6) CAD (coronary artery disease) Status: Chronic Response to Treatment: Stable Problem Specific Plan: Monitor Clinically Problem Text: asymptomatic, continue home medications (7) Diabetes Status: Chronic Response to Treatment: Stable Problem Text: on sliding scale insulin Plan/VTE VTE Prophylaxis Ordered?: No VTE Exclusion Mechanical Proph: Other (on hold in anticipation of surgery) VS, I&O, 24H, Fishbone Vital Signs/I&O Vital Signs Date Time Temp Pulse Resp B/P (MAP) Pulse Ox O2 Delivery O2 Flow Rate FiO2 11/27/16 08:04 20 11/27/16 03:05 98.2 100 148/74 (98) 100 Nasal Cannula 2.0 I&O- Last 24 Hours up to 6 AM 11/27/16 05:59 Intake Total 565 ml Output Total 1500 ml Balance -935 ml Laboratory Data 24H LABS Laboratory Tests 2 11/26/16 13:57: Bedside Glucose (Misc Panel) 146H 11/26/16 17:15: Bedside Glucose (Misc Panel) 125H 11/26/16 18:41: Bedside Glucose (Misc Panel) 137H 11/26/16 20:30: Bedside Glucose (Misc Panel) 273H 11/27/16 06:57: Bedside Glucose (Misc Panel) 106 Microbiology Microbiology 11/19/16 Blood Culture - Final, Complete NO GROWTH AFTER 5 DAYS 11/19/16 Blood Culture - Final, Complete NO GROWTH AFTER 5 DAYS 11/19/16 Influenza Virus Type A Antigen - Final, Complete 11/19/16 Influenza Virus Type B Antigen - Final, Complete 11/19/16 Urine Culture - Final, Complete Proteus Mirabilis Ira Ham Nov 27, 2016 08:52 Darrian Bee MD Nov 27, 2016 14:34
[2016-11-27 10:00] VITALS: BP 135/62
[2016-11-27] MEDS: CLOPIDOGREL 75 MG TAB PO SCH (10:38)
[2016-11-27] MEDS: FEBUXOSTAT 40 MG TABLET (ULORIC) PO SCH (10:38)
[2016-11-27 14:00] VITALS: BP 129/68
[2016-11-27] MEDS: CHECK TO SEE IF PATIENT IS RECEIVING DIALYSIS TODAY AND REFER TO THE VANCOMYCIN ORDER XX SCH ×2 (16:00)
[2016-11-27 18:00] VITALS: BP 141/69
--- NOTE | 2016-11-27 20:54 | IPN ---
DATE: 11/26/2016 Mr. Rodriguez is seen this morning during hemodialysis on his bedside. He is feeling about the same. He denies any nausea or vomiting. He did have breakfast today and is now nothing by mouth (npo) as he is scheduled for toe amputation later this afternoon. The patient denies any fever, chills, chest pain or abdominal pain. On physical exam, temperature is 97.8 degrees Fahrenheit, heart rate 105 per minute and respiratory rate 18 per minute. Blood pressure 136/80 mmHg and oxygen saturation 96%. Head is atraumatic. Neck is supple and without jugular venous distention (JVD) or thyroid enlargement. Dialysis catheter in the right internal jugular vein is intact. Heart sounds are tachycardic and irregular. Lungs with few scattered rhonchi. Abdomen soft and nontender and without palpable organomegaly. Extremities without any cyanosis or clubbing. Skin has no new rash. He has chronic ischemic and gangrenous changes in almost all his toes. Neurologically he is awake, alert and oriented times three. Today's labs show WBC 7.8, hemoglobin 10.1 and hematocrit 33.7. Platelets 234. Sodium 135 and potassium 5.3. BUN 37 and creatinine 6.51. PROBLEMS: 1. End-stage renal disease. The patient is being dialyzed today. Today is his regular dialysis day. He is tolerating his dialysis treatment well. 2. Hyperkalemia. This is mild and will be corrected with hemodialysis. We are using 2.0 mEq of potassium bath today. 3. Anemia. His anemia has been stable and the patient will continue to receive Aranesp once a week during hemodialysis. 4. Gangrenous and infected toes. The patient remains on ceftazidime and vancomycin. He is scheduled for toe amputation later this afternoon. From a nephrology standpoint, the patient is going to be optimized after dialysis today. All other issues are being addressed by hospitalist service.
[2016-11-27] MEDS: ATORVASTATIN 20 MG TAB PO SCH (21:00)
[2016-11-27 22:00] VITALS: BP 163/78
[2016-11-28 06:00] VITALS: BP 146/90
[2016-11-28] MEDS: CALCIUM ACETATE 667 MG GELCAP PO SCH ×3 (06:10→21:05)
[2016-11-28] MEDS: PANTOPRAZOLE 40MG TAB (PROTONIX) PO SCH (06:10)
[2016-11-28] MEDS: ASPIRIN 81 MG CHEW TABLET PO SCH (06:11)
[2016-11-28] MEDS: MULTIVITAMINS/MINERALS THERAP 1 TAB PO SCH (06:11)
[2016-11-28] MEDS: predniSONE 5 MG TAB PO SCH (06:11)
[2016-11-28] MEDS: GABAPENTIN 300 MG CAP PO SCH ×2 (06:11→21:05)
[2016-11-28] MEDS: HEPARIN SOD (PORCINE) 5000 UNITS/ML VIAL SQ SCH ×2 (06:11→21:05)
[2016-11-28] MEDS: CLOPIDOGREL 75 MG TAB PO SCH (06:11)
[2016-11-28 06:30] LABS: BASO # 0.1 K/mm3 (0.0-0.2); BASO % 0.7 % (0.0-1.0); EOS # 0.4 K/mm3 (0.0-0.50); EOS % 3.7 % (0.0-3.0); LARGE UNSTAINED CELL # 0.2 K/mm3 (0.0-0.4); LARGE UNSTAINED CELL % 2.1 % (0.0-4.0); LYMPH # 1.4 K/mm3 (1.5-4.5); LYMPH % 11.1 % (24.0-44.0); MEAN CORPUSCULAR HEMOGLOBIN 31.2 pg (27.0-33.0); MEAN CORPUSCULAR HGB CONC 30.7 g/dl (32.0-36.5); MEAN CORPUSCULAR VOLUME 101.7 fl (80.0-96.0); MONO # 0.7 K/mm3 (0.0-0.8); MONO % 6.3 % (0.0-5.0); NEUTROPHILS # 8.1 K/mm3 (1.8-7.7); NEUTROPHILS % 76.1 % (36.0-66.0); PLATELET COUNT, AUTOMATED 271 k/mm3 (150-450); RED CELL DISTRIBUTION WIDTH 16.1 % (11.5-14.5); WHITE BLOOD COUNT 10.6 K/mm3 (4.0-10.0)
[2016-11-28 06:48] LABS: ALBUMIN 2.7 GM/DL (3.2-5.2); ALBUMIN/GLOBULIN RATIO 0.66 (1.00-1.93); BILIRUBIN,TOTAL 0.3 MG/DL (0.2-1.0); CALCIUM LEVEL 9.2 MG/DL (8.8-10.2); CREATININE FOR GFR 6.37 MG/DL (0.70-1.30); POTASSIUM SERUM 4.9 MEQ/L (3.5-5.1); TOTAL PROTEIN 6.8 GM/DL (6.4-8.2)
[2016-11-28] MEDS: FEBUXOSTAT 40 MG TABLET (ULORIC) PO SCH (08:11)
[2016-11-28] MEDS: NORCO, ANEXSIA 5/325MG TABLET (HYDROcodone/ACETAMINOPHEN) PO PRN ×3 (08:13→21:51)
[2016-11-28] MEDS: HumaLOG INSULIN (NovoLOG) PER UNIT SC SCH ×4 (08:14→21:00)
--- NOTE | 2016-11-28 08:14 | IPNPDOC ---
Subjective Date Seen The patient was seen on 11/28/16. Subjective Chief Complaint/HPI The patient is a 81-year-old male admitted with a reason for visit of Cellulitis ,Fever,Osteomyelitis Ankle Or Foot,Toe G. Events since last encounter Per podiatry ok to get OOB. Will start today. plans on HD today. Constitutional: Denies: Chills, Fever, Night Sweats ENT: Reports: Sinus Congestion, Denies: Head Aches, Ear Pain, Dysphagia, Sore Throat Skin: Denies: Rash, Lesions, Breakdown Pulmonary: Reports: Cough, Denies: Dyspnea Cardiovascular: Denies: Chest Pain, Palpitations, Orthopnea, Paroxysmal Noc. Dyspnea, Lt Headedness Gastrointestinal: Denies: Nausea, Vomiting, Abdominal Pain, Diarrhea, Constipation Psych: Reports: Mood Normal, Denies: Depression, Memory Issues Objective Physical Examination General Exam: Positive: Alert, Cooperative Eye Exam: Positive: PERRLA, Conjunctiva & lids normal ENT Exam: Positive: Atraumatic, Mucous membr. moist/pink, Pharynx Normal Neck Exam: Positive: Supple Chest Exam: Positive: Clear to auscultation, Normal air movement, Rhonchi (LLL) Heart Exam: Positive: Rate Normal Abdomen Exam: Positive: Normal bowel sounds, Soft, Negative: Tenderness Extremity Exam: Positive: Tenderness, Other (dressings C/D/I) Skin Exam: Positive: Nl turgor and temperature, Other skin issue (erythema L soliz (receded from previously marked borders)) Neuro Exam: Positive: Normal Speech, Normal Tone Psych Exam: Positive: Mental status NL, Mood NL, Oriented x 3, Negative: Memory Intact (but alert and oriented x 3) Assessment /Plan Problems (1) Osteomyelitis of ankle or foot Status: Acute Problem Text: 11/28/16: podiatry following. Vancomycin and Ceftazidime on HD days. 11/27/16: podiatry managing 11/26/16: amputation planned for today 11/25/16: amputation planned for tomorrow. 11/24/16: patient has no new problems. no fevers no chills.. seems unsure of which toes are to be amputated 11/23: Waiting amputations. Plavix on hold. Vancomycin day 4, ceftazidime day 3 11/22: Waiting amputations. Plavix on hold. Vancomycin day 3, ceftazidime day 2 11/21/2016: plan for amputation bilateral 1st toes and right foot 3 rd toe next week. Plavix on HOLD x 5 days. 11/20 -- podiatry consulted Discussed with radiology, and ordered MRI of feet bilat. If consistent with osteo, will consult podiatry. Empiric antibiotics ordered. (2) Peripheral vascular disease Status: Chronic Response to Treatment: Stable Problem Text: Contributes to dry gangrene of multiple toes. (3) ESRD (end stage renal disease) on dialysis Status: Chronic Problem Specific Plan: Consult Specialist Problem Text: Nephro consulted and following. Attempting to maintain routine HD days. (4) COPD (chronic obstructive pulmonary disease) Status: Chronic Response to Treatment: Stable Problem Specific Plan: Monitor Clinically Problem Text: robitussin ordered for cough symptoms continue home medications. (5) CAD (coronary artery disease) Status: Chronic Response to Treatment: Stable Problem Specific Plan: Monitor Clinically Problem Text: asymptomatic, continue home medications (6) Diabetes Status: Chronic Response to Treatment: Stable Problem Text: on sliding scale insulin (7) Toe gangrene Status: Acute Problem Text: 11/27/16: s/p amputation. 11/23: Awaiting surgical amputation 11/22: Awaiting surgical amputation 11/21/16: See osteomyelitis section. 11/20 -- dry gangrene. Imaging support osteo. Podiatry consulted. Continue abx. with likely osteomyelitis. Will consult podiatry. Plan/VTE VTE Prophylaxis Ordered?: Yes (Plavix) VTE Exclusion Mechanical Proph: Other (on hold in anticipation of surgery) VS, I&O, 24H, Fishbone Vital Signs/I&O Vital Signs Date Time Temp Pulse Resp B/P (MAP) Pulse Ox O2 Delivery O2 Flow Rate FiO2 11/28/16 06:00 97.8 100 21 146/90 (108) 94 Nasal Cannula 2.0 I&O- Last 24 Hours up to 6 AM 11/28/16 05:59 Intake Total 660 ml Output Total 0 ml Balance 660 ml Laboratory Data 24H LABS Laboratory Tests 2 11/27/16 11:39: Bedside Glucose (Misc Panel) 214H 11/27/16 16:44: Bedside Glucose (Misc Panel) 211H 11/28/16 05:51: White Blood Count 10.6H, Red Blood Count 3.36L, Hemoglobin 10.5L, Hematocrit 34.1L, Mean Corpuscular Volume 101.7H, Mean Corpuscular Hemoglobin 31.2, Mean Corpuscular Hemoglobin Concent 30.7L, Red Cell Distribution Width 16.1H, Platelet Count 271, Neutrophils (%) (Auto) 76.1H, Lymphocytes (%) (Auto) 11.1L, Monocytes (%) (Auto) 6.3H, Eosinophils (%) (Auto) 3.7H, Basophils (%) (Auto) 0.7 , Neutrophils # (Auto) 8.1H, Lymphocytes # (Auto) 1.4L, Monocytes # (Auto) 0.7, Eosinophils # (Auto) 0.4, Basophils # (Auto) 0.1, Large Unclassified Cells % 2.1 , Large Unclassified Cells # 0.2, Anion Gap 8, Glomerular Filtration Rate 9.0L, Blood Urea Nitrogen 34H, Creatinine 6.37H, Sodium Level 139, Potassium Level 4.9 , Chloride Level 103, Carbon Dioxide Level 28, Calcium Level 9.2, Aspartate Amino Transf (AST/SGOT) 11L, Alanine Aminotransferase (ALT/SGPT) 15, Alkaline Phosphatase 69, Total Bilirubin 0.3, Total Protein 6.8, Albumin 2.7L, Albumin/ Globulin Ratio 0.66L, Random Vancomycin Level 36.0 CBC/BMP Laboratory Tests 11/28/16 05:51 Red Blood Count 3.36 L, Mean Corpuscular Volume 101.7 H, Mean Corpuscular Hemoglobin 31.2, Mean Corpuscular Hemoglobin Concent 30.7 L, Red Cell Distribution Width 16.1 H, Neutrophils (%) (Auto) 76.1 H, Lymphocytes (%) (Auto ) 11.1 L, Monocytes (%) (Auto) 6.3 H, Eosinophils (%) (Auto) 3.7 H, Basophils (% ) (Auto) 0.7, Neutrophils # (Auto) 8.1 H, Lymphocytes # (Auto) 1.4 L, Monocytes # (Auto) 0.7, Eosinophils # (Auto) 0.4, Basophils # (Auto) 0.1, Calcium Level 9.2, Aspartate Amino Transf (AST/SGOT) 11 L, Alanine Aminotransferase (ALT/SGPT ) 15, Alkaline Phosphatase 69, Total Bilirubin 0.3, Total Protein 6.8, Albumin 2.7 L Microbiology Microbiology 8/9/17 Blood Culture - Final, Complete NO GROWTH AFTER 5 DAYS 11/19/16 Blood Culture - Final, Complete NO GROWTH AFTER 5 DAYS 11/19/16 Influenza Virus Type A Antigen - Final, Complete 11/19/16 Influenza Virus Type B Antigen - Final, Complete 11/19/16 Urine Culture - Final, Complete Proteus Mirabilis Ira Ham Nov 28, 2016 08:14 Darrian Bee MD Nov 28, 2016 13:52
[2016-11-28] MEDS ORDERED: ASPIRIN 81 MG ENTERIC TAB PO SCH (09:00)
[2016-11-28] MEDS ORDERED: HEPARIN 1,000 UNITS/ML 10ML VIAL (FOR RADIOLOGY& DIALYSIS ONLY) XX ONE (12:30)
[2016-11-28] MEDS ORDERED: HEPARIN 1,000 UNITS/ML 10ML VIAL (FOR RADIOLOGY& DIALYSIS ONLY) IV ONE (12:30)
[2016-11-28] MEDS ORDERED: DARBEPOETIN 100 MCG/0.5 ML *DIALYSIS* SYRINGE (J0882) IV SCH (13:00)
[2016-11-28 14:00] VITALS: BP 134/62
--- NOTE | 2016-11-28 14:01 | REP ---
A PA and lateral chest, patient sitting: Comparison is 11/19/2016. There is a remote comparison dated 07/22/2014. There is a right IJ dual lumen central venous catheter in the superior vena cava, unchanged from both prior studies. There is diffuse bilateral interstitial coarsening. However, this appears somewhat worsened from the prior studies. Part of this may merely be from radiographic technique. There are no focal infiltrates. No pleural effusions. No masses. Cardiac size is normal for positioning. The sandra, mediastinum, and bony thorax unremarkable. There is an endovascular graft in the left upper extremity. There are calcifications medial to the left humeral neck. Impression: Interstitial coarsening. This appears somewhat increased from prior studies. Part of this area is may be secondary to radiographic technique. There are no focal infiltrates or effusions. There are other chronic stable findings as described. Signed by Kris Hoffmann MD 11/28/2016 01:53 P
[2016-11-28] MEDS ORDERED: ACETAMINOPHEN TAB 650MG DOSE (2X325MG) PO PRN (15:49)
[2016-11-28] MEDS: guaiFENesin DM *SUGAR FREE* 5ML**DIABETIC TUSSIN DM PO PRN (15:54)
[2016-11-28] MEDS: cefTAZidime 1 GM in D5W MINI-BAG PLUS 100 ML IV SCH (16:43)
[2016-11-28] MEDS: CHECK TO SEE IF PATIENT IS RECEIVING DIALYSIS TODAY AND REFER TO THE VANCOMYCIN ORDER XX SCH (16:43)
[2016-11-28] MEDS: ATORVASTATIN 20 MG TAB PO SCH (21:05)
[2016-11-28 21:10] VITALS: BP 141/68
--- NOTE | 2016-11-29 02:39 | IPN ---
DATE OF SERVICE: 11/27/2016 Mr. Rodriguez is seen this morning on his bedside. He underwent hemodialysis yesterday morning and later in the afternoon he had amputation of his bilateral big toes and right third toe. He is feeling well and reports that his surgery was uneventful. He denies any nausea or vomiting. There is no chest pain, palpitations or unusual dyspnea. He remains on chronic oxygen 2 liters via nasal cannula. PHYSICAL EXAMINATION: Temperature 98.2 degrees Fahrenheit, heart rate 100 per minute and respiratory rate 20 per minute. Blood pressure 148/74 mmHg and oxygen saturation 100% on 2 liters of oxygen. Head is atraumatic. Neck is supple and without jugular venous distention (JVD) or thyroid enlargement. Mucous membranes are moist and healthy. Heart sounds are tachycardiac and irregular in rhythm. Lungs with scattered rhonchi and diminished breath sounds. Abdomen: Soft, obese and nontender. Bowel sounds are normal. Extremities have no cyanosis or clubbing. Both feet are wrapped in dressing. He did not have any new labs done today. PROBLEMS: 1. End-stage renal disease. The patient is regularly dialyzed on Thursday, Thursday and Thursday schedule. He was dialyzed yesterday and next dialysis will be scheduled for tomorrow. 2. Anemia. His anemia has been stable. He receives Aranesp once a week during dialysis which will be continued. We will check his complete blood count (CBC) again tomorrow morning. 3. Infected and gangrenous toes with peripheral vascular disease. The patient underwent amputation of his three toes. He remains on ceftazidime and vancomycin. His vancomycin level will be checked tomorrow morning.
[2016-11-29 06:00] VITALS: BP 158/88
[2016-11-29 06:50] LABS: CALCIUM LEVEL 8.5 MG/DL (8.8-10.2); CREATININE FOR GFR 4.7 MG/DL (0.70-1.30); GLOMERULAR FILTRATION RATE 12.8 (>35); POTASSIUM SERUM 4.3 MEQ/L (3.5-5.1)
[2016-11-29 06:51] LABS: ALBUMIN 2.4 GM/DL (3.2-5.2); ALBUMIN/GLOBULIN RATIO 0.62 (1.00-1.93); BILIRUBIN,TOTAL 0.3 MG/DL (0.2-1.0); TOTAL PROTEIN 6.3 GM/DL (6.4-8.2)
[2016-11-29 07:13] LABS: MEAN CORPUSCULAR HEMOGLOBIN 31.7 pg (27.0-33.0); MEAN CORPUSCULAR HGB CONC 31.3 g/dl (32.0-36.5); MEAN CORPUSCULAR VOLUME 101.4 fl (80.0-96.0); PLATELET COUNT, AUTOMATED 219 k/mm3 (150-450); RED CELL DISTRIBUTION WIDTH 16.1 % (11.5-14.5)
[2016-11-29 07:44] LABS: BASO % 1.2 % (0.0-1.0); EOS % 5.6 % (0.0-3.0); MONO % 9.8 % (0.0-5.0); NEUTROPHILS # 4.3 K/mm3 (1.8-7.7); NEUTROPHILS % 61.5 % (36.0-66.0)
[2016-11-29 07:45] LABS: BASO # 0.1 K/mm3 (0.0-0.2); EOS # 0.4 K/mm3 (0.0-0.50); LARGE UNSTAINED CELL # 0.2 K/mm3 (0.0-0.4); LYMPH # 1.3 K/mm3 (1.5-4.5); MONO # 0.7 K/mm3 (0.0-0.8)
--- NOTE | 2016-11-29 09:46 | RO ---
DATE OF SURGERY: 11/26/2016 PREOPERATIVE DIAGNOSIS: Distal dry gangrene of the hallux bilateral and the 3rd toe of the right foot. POSTOPERATIVE DIAGNOSIS: Distal dry gangrene of the hallux bilateral and the 3rd toe of the right foot. PROCEDURES PERFORMED: Partial right hallux amputation right foot. Partial hallux amputation of the left foot. 3rd toe amputation right foot. SURGEON: Juan A Wooten DPM OCCUPATIONAL MEDICINE OFFICER: None. ANESTHESIA: Local monitored anesthesia care (MAC). IRRIGATION: Dilute tobramycin with a low-pressure pulse lavage system. ESTIMATED BLOOD LOSS: 30 mL. HEMOSTASIS: None. DESCRIPTION OF OPERATION: Attention was directed to the patient's right foot, where there was noted to be dry gangrene. Sterile draping was completed of the right and left foot. Attention was directed to the right hallux, where a modified fishmouth incision was placed over the interphalangeal joint of the hallux. Dissection was carried down, and the hallux was disarticulated at the interphalangeal joint. The skin was retracted in a proximal direction, and an osteotomy was performed at the anatomical neck of the proximal phalanx from dorsal to plantar though and through, and the bone was removed. All bleeders were electrocoagulated. The wound was then irrigated with copious amounts of dilute tobramycin solution with a low-pressure pulse lavage system. The skin was closed with 3-0 nylon in a simple interrupted and horizontal mattress type fashion. Attention was then directed to the 3rd toe of the right foot, where the following procedure was performed. 3RD TOE AMPUTATION RIGHT FOOT: Attention was directed to the patient's 3rd toe of the right foot, where a racket-shaped incision was placed over the 3rd metatarsophalangeal joint extending out to the base of the toe. The toe was then disarticulated. The tendons dorsally and plantarly were cut to allow them to retract, and the toe was extirpated from the wound. All bleeders were electrocoagulated as encountered. The skin was closed with 3-0 nylon in a simple interrupted type fashion. Attention was directed towards bandaging, where Adaptic, 4 x 4's, 4 x 4 splints, and Coban was applied. Attention was then directed to the patient's left hallux, where the following procedure was performed: PARTIAL HALLUX AMPUTATION LEFT FOOT: The procedure performed on the right hallux was now performed on the left hallux without variation or deletion other than that in anatomical location. Attention was directed towards bandaging, where a sterile compressive bandage was applied to the patient's left foot. The patient, having apparently tolerating the surgical procedure well, was then taken from the operating room (OR) to the recovery room, vital signs stable, furthering monitoring by the anesthesia department. Postoperative instructions will be given upon discharge. The patient is an inpatient and will be followed by the hospitalist service.
[2016-11-29] MEDS: guaiFENesin DM *SUGAR FREE* 5ML**DIABETIC TUSSIN DM PO PRN ×2 (10:00→17:15)
[2016-11-29] MEDS: NORCO, ANEXSIA 5/325MG TABLET (HYDROcodone/ACETAMINOPHEN) PO PRN ×2 (10:01→20:32)
[2016-11-29] MEDS: HEPARIN SOD (PORCINE) 5000 UNITS/ML VIAL SQ SCH ×2 (10:02→20:31)
[2016-11-29] MEDS: CLOPIDOGREL 75 MG TAB PO SCH (10:04)
[2016-11-29] MEDS: FEBUXOSTAT 40 MG TABLET (ULORIC) PO SCH (10:04)
[2016-11-29] MEDS: CALCIUM ACETATE 667 MG GELCAP PO SCH ×4 (10:04→20:30)
[2016-11-29] MEDS: HumaLOG INSULIN (NovoLOG) PER UNIT SC SCH ×4 (10:04→20:31)
[2016-11-29] MEDS: MULTIVITAMINS/MINERALS THERAP 1 TAB PO SCH (10:04)
[2016-11-29] MEDS: PANTOPRAZOLE 40MG TAB (PROTONIX) PO SCH (10:05)
[2016-11-29] MEDS: predniSONE 5 MG TAB PO SCH (10:05)
[2016-11-29] MEDS: GABAPENTIN 300 MG CAP PO SCH ×2 (10:05→20:30)
[2016-11-29] MEDS: ASPIRIN 81 MG CHEW TABLET PO SCH (10:05)
[2016-11-29] MEDS ORDERED: IPRATROPIUM 0.5MG/ALBUTEROL 2.5MG INH SOL UD 3ML (DUONEB)(J7620) NEB ONE (11:15)
[2016-11-29] MEDS: predniSONE 20 MG TAB PO SCH (12:13)
[2016-11-29 14:00] VITALS: BP 135/85
[2016-11-29] MEDS: IPRATROPIUM 0.5MG/ALBUTEROL 2.5MG INH SOL UD 3ML (DUONEB)(J7620) NEB SCH ×2 (14:00→20:46)
[2016-11-29] MEDS: CHECK TO SEE IF PATIENT IS RECEIVING DIALYSIS TODAY AND REFER TO THE VANCOMYCIN ORDER XX SCH (16:00)
[2016-11-29] MEDS: ATORVASTATIN 20 MG TAB PO SCH (20:30)
[2016-11-29 21:50] VITALS: BP 131/66
[2016-11-30] MEDS: IPRATROPIUM 0.5MG/ALBUTEROL 2.5MG INH SOL UD 3ML (DUONEB)(J7620) NEB SCH ×4 (01:31→20:12)
[2016-11-30 06:00] VITALS: BP 139/67
[2016-11-30 06:24] LABS: BASO % 0.2 % (0.0-1.0); EOS % 0.1 % (0.0-3.0); LARGE UNSTAINED CELL % 0.8 % (0.0-4.0); LYMPH # 0.6 K/mm3 (1.5-4.5); LYMPH % 10.2 % (24.0-44.0); MEAN CORPUSCULAR HEMOGLOBIN 31.7 pg (27.0-33.0); MEAN CORPUSCULAR HGB CONC 31.2 g/dl (32.0-36.5); MEAN CORPUSCULAR VOLUME 101.6 fl (80.0-96.0); MONO # 0.2 K/mm3 (0.0-0.8); MONO % 3.7 % (0.0-5.0); NEUTROPHILS # 4.6 K/mm3 (1.8-7.7); NEUTROPHILS % 84.9 % (36.0-66.0); PLATELET COUNT, AUTOMATED 240 k/mm3 (150-450); WHITE BLOOD COUNT 5.4 K/mm3 (4.0-10.0)
[2016-11-30 06:33] LABS: ALBUMIN 2.4 GM/DL (3.2-5.2); ALBUMIN/GLOBULIN RATIO 0.59 (1.00-1.93); BILIRUBIN,TOTAL 0.2 MG/DL (0.2-1.0); CALCIUM LEVEL 8.5 MG/DL (8.8-10.2); CREATININE FOR GFR 6.48 MG/DL (0.70-1.30); GLOMERULAR FILTRATION RATE 8.8 (>35); TOTAL PROTEIN 6.5 GM/DL (6.4-8.2)
[2016-11-30 06:35] LABS: POTASSIUM SERUM 5.7 MEQ/L (3.5-5.1)
[2016-11-30] MEDS: predniSONE 20 MG TAB PO SCH (08:56)
[2016-11-30] MEDS: HumaLOG INSULIN (NovoLOG) PER UNIT SC SCH ×4 (08:56→21:44)
[2016-11-30] MEDS: CLOPIDOGREL 75 MG TAB PO SCH (08:56)
[2016-11-30] MEDS: HEPARIN SOD (PORCINE) 5000 UNITS/ML VIAL SQ SCH ×2 (08:56→20:30)
[2016-11-30] MEDS: FEBUXOSTAT 40 MG TABLET (ULORIC) PO SCH (08:56)
[2016-11-30] MEDS: ASPIRIN 81 MG CHEW TABLET PO SCH (08:57)
[2016-11-30] MEDS: CALCIUM ACETATE 667 MG GELCAP PO SCH ×3 (08:57→20:29)
[2016-11-30] MEDS: PANTOPRAZOLE 40MG TAB (PROTONIX) PO SCH (08:57)
[2016-11-30] MEDS: MULTIVITAMINS/MINERALS THERAP 1 TAB PO SCH (08:57)
[2016-11-30] MEDS: GABAPENTIN 300 MG CAP PO SCH ×2 (08:57→20:29)
--- NOTE | 2016-11-30 10:03 | IPN ---
DATE: 11/28/2016 CHIEF COMPLAINT: The patient seen for evaluation at bedside status post bilateral foot surgery. The patient states he is having minimal discomfort of his feet. The bandages were removed today. The incisions are healing well. There is no surrounding erythema around the surgical sites. There is erythema of the left lower extremity above the ankle. This area is not contiguous with the foot. X-rays were reviewed revealing resection of the distal and the distal half of the proximal phalanx of the hallux bilaterally and the entire third toe. No remaining osteomyelitis is visible. Laboratory studies were reviewed. White count of 10.6. ASSESSMENT: Status post resection of dry gangrene of the hallux bilateral and third toe of the right foot. PLAN: A dry sterile dressing was applied. The patient can leave this dressing on for one week. He will be seen for followup exam for bandage change. This can be performed at the hospital or the [facility]. His questions are answered. The patient can ambulate on his feet in a surgical shoe.
[2016-11-30] MEDS ORDERED: SOD POLYSTYRENE SULFONATE SUSP 15 GM/60 ML UD PO ONE (10:45)
[2016-11-30] MEDS: NORCO, ANEXSIA 5/325MG TABLET (HYDROcodone/ACETAMINOPHEN) PO PRN (13:38)
[2016-11-30 14:00] VITALS: BP_SYST 152; BP_SYST 154; BP_DIAS 67; BP_DIAS 68
[2016-11-30] MEDS: guaiFENesin DM *SUGAR FREE* 5ML**DIABETIC TUSSIN DM PO PRN (17:39)
[2016-11-30] MEDS: ATORVASTATIN 20 MG TAB PO SCH (20:29)
--- NOTE | 2016-11-30 20:41 | IPN ---
DATE: 11/28/2016 Mr. Rodriguez is seen during hemodialysis this morning. He has complained of cough today. He underwent bilateral toe amputations couple of days ago. He does not have any fever or chills. The patient denies any nausea or vomiting. He is just not feeling good today due to cough. PHYSICAL EXAMINATION: Temperature is 97.8 degrees Fahrenheit, heart rate 100 per minute and respiratory rate 20 per minute. Blood pressure 146/90 mmHg and oxygen saturation 94% on 2 liters oxygen. His head is atraumatic. Neck veins are not abnormally distended. Dialysis catheter in right internal jugular vein is intact. Heart: Sounds are tachycardiac and irregular. Lungs have bilateral scattered rhonchi. Abdomen: Soft and nontender. Bowel sounds are normal. There is no palpable organomegaly. Extremities: Have no cyanosis or clubbing. Today's labs show WBC count 10.6, hemoglobin 10.5 and hematocrit 34.1. Platelets 271. His chemistry today showed sodium level 139 and potassium 4.9. BUN is 34 and creatinine 6.37. PROBLEMS: 1. End-stage renal disease. The patient is currently being dialyzed and he is tolerating dialysis treatment well. We will complete his 3-1/2-hour dialysis run today. 2. Cough. This is most likely related to bronchitis. We will get a chest x-ray in order to rule out any possibility of infiltrates. He is afebrile and does not have any leukocytosis. He has been on ceftazidime and vancomycin for his foot infection. I do not feel that at this point any other antibiotic is indicated. 3. Bilateral toe gangrene, peripheral vascular disease and osteomyelitis. The patient has been on vancomycin and ceftazidime. His vancomycin level this morning is up to 36.0. I am stopping his vancomycin for now and after the next hemodialysis on Thursday, we can reconsider to give him vancomycin if needed. 4. Anemia. His anemia has been stable and will continue to monitor. He has received Aranesp previously. Will give him only 100 mcg of Aranesp per week. 5. COPD. The patient seems to be at baseline breathing. He does have new onset of cough. Chest x-ray is being ordered. We will continue with nebulizers.
[2016-11-30 22:00] VITALS: BP 138/65
[2016-12-01] MEDS: IPRATROPIUM 0.5MG/ALBUTEROL 2.5MG INH SOL UD 3ML (DUONEB)(J7620) NEB SCH ×3 (02:00→09:37)
[2016-12-01 05:40] VITALS: BP 138/82
[2016-12-01 06:28] LABS: BASO % 0.2 % (0.0-1.0); EOS % 0.1 % (0.0-3.0); LARGE UNSTAINED CELL # 0.1 K/mm3 (0.0-0.4); LARGE UNSTAINED CELL % 0.9 % (0.0-4.0); LYMPH # 0.9 K/mm3 (1.5-4.5); LYMPH % 6.6 % (24.0-44.0); MEAN CORPUSCULAR HEMOGLOBIN 31.6 pg (27.0-33.0); MEAN CORPUSCULAR HGB CONC 30.9 g/dl (32.0-36.5); MEAN CORPUSCULAR VOLUME 102.1 fl (80.0-96.0); MONO # 0.6 K/mm3 (0.0-0.8); NEUTROPHILS % 87.3 % (36.0-66.0); PLATELET COUNT, AUTOMATED 276 k/mm3 (150-450); RED CELL DISTRIBUTION WIDTH 16.1 % (11.5-14.5); WHITE BLOOD COUNT 11.4 K/mm3 (4.0-10.0)
[2016-12-01 06:50] LABS: ALBUMIN 2.7 GM/DL (3.2-5.2); ALBUMIN/GLOBULIN RATIO 0.64 (1.00-1.93); BILIRUBIN,TOTAL 0.2 MG/DL (0.2-1.0); CALCIUM LEVEL 8.7 MG/DL (8.8-10.2); CREATININE FOR GFR 7.75 MG/DL (0.70-1.30); GLOMERULAR FILTRATION RATE 7.2 (>35); POTASSIUM SERUM 5.1 MEQ/L (3.5-5.1); TOTAL PROTEIN 6.9 GM/DL (6.4-8.2)
--- NOTE | 2016-12-01 07:01 | IPN ---
DATE: 11/29/2016 SUBJECTIVE: The patient was seen and examined at the bedside today morning. The patient was dialyzed yesterday. He tolerated the hemodialysis procedure well; however, the patient is complaining of persistent cough. The patient is otherwise hemodynamically stable. REVIEW OF SYSTEMS: The patient denies any fevers, chills, rigors, headaches, nausea, vomiting or chest pain. He reports persistent couth. He denies any pain abdomen, constipation, or diarrhea, and patient is reporting mild pain at the amputation site and pain is optimized with the medication at this time. Rest of review of systems is negative. OBJECTIVE: VITAL SIGNS: Temperature is 99.3 degrees Fahrenheit, blood pressure is 158/88, pulse is 105, respiratory rate of 18, saturating 95% on nasal cannula at two liters. INTAKE AND OUTPUT: Urine output recorded as 50 mL yesterday. Ultrafiltration with hemodialysis was 1.5 liters yesterday. Weight in the bed scale is 86.3 kg. PHYSICAL EXAMINATION: GENERAL: The patient is awake, alert, and oriented times two, lying in bed in no apparent distress. HEAD/NECK: Extraocular muscles intact. Pupils equal, round, and reactive to light. Mucous membranes are moist. Neck is supple. There is no jugular venous distention (JVD). CARDIOVASCULAR: S1, S2 tachycardia, irregularly irregular heart rate. RESPIRATORY: The patient as diminished breath sounds at the bases and rhonchi all over the lungs. ABDOMEN: Soft, obese. Positive bowel sounds. Nontender. No ascites. No organomegaly. MUSCULOSKELETAL: The patient has trace edema on the bilateral lower extremities. He has dressing on bilateral feet because of recent amputations, and he has 1+ edema on the bilateral upper extremities. CENTRAL NERVOUS SYSTEM (NURSE PRACTITIONER): No focal deficit at this time. The patient is calm, cooperative, and moves both extremities on command. PSYCHIATRIC: Normal mood and affect. LABORATORY DATA: CBC showed a WBC seven, hemoglobin is 10, platelets are 219. BMP showed sodium 141, potassium 4.3, chloride 106, bicarbonate 26, BUN 23, creatinine 4.7, calcium 8.5. IMAGING: Chest x-ray was done yesterday. It showed interstitial coarsening; otherwise, no focal infiltrates. CURRENT INPATIENT MEDICATIONS: The patient's medications were all reviewed by me. I have started the patient on prednisone 40 mg by mouth daily. The patient has been started on DuoNeb nebulizations every six hours. He continues to be on ceftazidime which was started on 11/19, and today is day 10 of antibiotic. ASSESSMENT: Nnamdi Rodriguez is an 81-year-old male with past medical history of end-stage renal disease on hemodialysis, insulin-dependent diabetes, peripheral vascular disease, gout, admitted this time with fever and sepsis. The patient got diagnosed with gangrene in the toes. He is status post right big toe and third toe amputation and left big toe amputation. PLAN: 1. End-stage renal disease: The patient's regular dialysis days are Thursday, Thursday, Thursday. He was dialyzed yesterday. Labs are acceptable. Next hemodialysis session will be on 12/01/2016. 2. Cough and wheezing: I have started the patient on prednisone 40 mg daily and I have started him on nebulizations with DuoNeb every six hours for the next two days. The patient is already on antibiotics at this time. 3. Osteomyelitis of the toes: The patient is status post amputation of two toes on the right foot and one toe on the left foot. He continues to be on intravenous (IV) ceftazidime. Vancomycin was held because of high levels. Today is day 10 of antibiotics. I recommend if the source of infection is gone, we can stop the antibiotics. 4. Anemia in end-stage renal disease: Hemoglobin is 10 which is acceptable. Continue current dose of Aranesp 100 mcg IV with hemodialysis once a week. 5. Protein calorie malnutrition: The patient's albumin is 2.4. Continue to encourage the oral intake. I am going to start him on protein shakes.
[2016-12-01] MEDS ORDERED: PRED20TA PO (08:37)
[2016-12-01] MEDS ORDERED: IPRASOL4 NEB (08:37)
[2016-12-01] MEDS: HEPARIN SOD (PORCINE) 5000 UNITS/ML VIAL SQ SCH (09:02)
[2016-12-01] MEDS: HumaLOG INSULIN (NovoLOG) PER UNIT SC SCH (09:02)
[2016-12-01] MEDS: CLOPIDOGREL 75 MG TAB PO SCH (09:02)
[2016-12-01] MEDS: GABAPENTIN 300 MG CAP PO SCH (09:03)
[2016-12-01] MEDS: predniSONE 20 MG TAB PO SCH (09:03)
[2016-12-01] MEDS: MULTIVITAMINS/MINERALS THERAP 1 TAB PO SCH (09:03)
[2016-12-01] MEDS: ASPIRIN 81 MG CHEW TABLET PO SCH (09:03)
[2016-12-01] MEDS: PANTOPRAZOLE 40MG TAB (PROTONIX) PO SCH (09:03)
[2016-12-01] MEDS: FEBUXOSTAT 40 MG TABLET (ULORIC) PO SCH (09:03)
[2016-12-01] MEDS: CALCIUM ACETATE 667 MG GELCAP PO SCH (09:03)
--- NOTE | 2016-12-02 05:56 | IPN ---
DATE: 11/30/2016 SUBJECTIVE: The patient was seen and examined at the bedside today morning. The patient reported that his cough and wheezing are getting better. Otherwise, he is asymptomatic, he is afebrile, and hemodynamically stable. REVIEW OF SYSTEMS: The patient denies any fevers, chills, rigors, headaches, nausea, vomiting or chest pain. He reports that is cough is improving. He denies any pain abdomen, constipation, or diarrhea. Rest of review of systems is negative. OBJECTIVE: VITAL SIGNS: Temperature is 98 degrees Fahrenheit, blood pressure 139/67, pulse is 93, respiratory rate of 18, saturating 98% on nasal cannula at two liters. INTAKE AND OUTPUT: There is no urine output recorded overnight. Weight in the bed scale is 86.9 kg. PHYSICAL EXAMINATION: GENERAL: The patient is awake, alert, and oriented times two, sitting in the bed, no apparent distress. HEAD/NECK: Extraocular muscles intact. Pupils equal, round, and reactive to light. Mucous membranes are moist. Neck is supple. There is no jugular venous distention (JVD). CARDIOVASCULAR: S1, S2. Regular rate. No murmur, rub, or gallop. RESPIRATORY: Mild expiratory rhonchi bilaterally, which are better as compared with yesterday. No crepitations at this time. ABDOMEN: Soft. Positive bowel sounds. Nontender, no ascites, no organomegaly. MUSCULOSKELETAL: The patient has dressing on bilateral feet. Otherwise no cyanosis. There is trace edema on the bilateral lower extremities. There is 1+ edema of the bilateral upper extremities. CENTRAL NERVOUS SYSTEM (DANCE MASTER): No focal neurological deficit. Power is 5/5 in bilateral upper extremities. He is oriented times two. PSYCHIATRIC: Normal mood and affect. LABORATORY DATA: CBC showed WBC of 5.4, hemoglobin 9.8, platelets 240. BMP showed sodium 139, potassium 5.7, chloride 104, bicarbonate 25, BUN 43, creatinine is 6.4. CURRENT INPATIENT MEDICATIONS: The patient's medications were all reviewed by me. Ceftazidime was stopped today morning because he has received more than 11 days of ceftazidime at this time. He is getting DuoNeb nebulizations around the clock every six hours. The patient was started on prednisone 40 mg by mouth daily and he was given a dose of Kayexalate 15 grams by mouth times one dose today morning because of hyperkalemia. ASSESSMENT: An 81-year-old male with past medical history of end-stage renal disease on hemodialysis, admitted this time because of sepsis. He is status post amputation of three toes during this admission. PLAN: 1. End-stage renal disease on hemodialysis: The patient's regular dialysis days are Thursday, Thursday, Thursday. He will be dialyzed tomorrow morning. The patient is reporting that he might get discharged tomorrow. If there is a plan to discharge the patient tomorrow morning, then he can be dialyzed as outpatient. 2. Hyperkalemia. The patient's potassium is 5.7 today. He was given a dose of Kayexalate 15 grams by mouth times one dose today. 3. Anemia in end-stage renal disease: Hemoglobin is 9.8. No urgent need of blood transfusion. Continue current dose of Aranesp 100 mcg intravenous (IV) with hemodialysis once a week. 4. 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 His vancomycin was stopped because of a high vancomycin level on 11/28/2016. The patient was also on ceftazidime with hemodialysis, which was stopped today morning. 5. Discharge planning: It is okay to discharge the patient from nephrology standpoint whenever he is cleared by podiatry and physical therapy.
--- NOTE | 2016-12-02 10:59 | IPN ---
DATE OF SERVICE: 12/01/2016 SUBJECTIVE: The patient is seen at the bedside today. He is pending discharge. He feels well and has no complaints. His outpatient dialysis has been arranged for later this afternoon. He states his cough has improved with prednisone. REVIEW OF SYSTEMS: Negative for headache, chest pain, palpitations. Positive for dry cough and improved shortness of breath. Negative for nausea, vomiting, diarrhea. The remainder of review of systems is negative. PHYSICAL EXAMINATION: VITAL SIGNS: Temperature 98.1, pulse 100, respiratory rate 20, blood pressure 138/82, pulse oximetry 94% on 2 liters nasal cannula. The patient is on home oxygen. INTAKE AND OUTPUT: Not recorded. Weight in the bed scale 88.8 kg. The patient is awake, alert, and oriented times two, lying in bed, in no apparent distress. Awaiting discharge. HEAD AND NECK: Extraocular muscles are intact. Pupils are equal, round, and reactive to light. Mucous membranes are moist. Neck is supple. There is no jugular venous distention. He has a right subclavian PermCath. CARDIOVASCULAR: S1, S2. Regular rate. Heart rate 100 beats per minute, irregularly irregular. RESPIRATORY: Scattered rhonchi bilaterally. Dry cough noted. Symmetric air entry on 2-liter nasal cannula. ABDOMEN: Soft. Obese. Positive bowel sounds. No appreciable organomegaly. MUSCULOSKELETAL: The patient has trace edema in the lower extremities. CENTRAL NERVOUS SYSTEM (FINANCIAL AID): The patient is calm, cooperative, and interacts appropriately. PSYCHIATRIC: Normal mood and affect. LABORATORIES: White count 11.4, which is increased from 5.4 yesterday. However, the patient is on 40 mg of prednisone. Hemoglobin 10, platelet 276. Sodium 140, potassium 5.1, bicarbonate 30, corrected calcium 9.7. IMAGING: Chest x-ray was reviewed from 11/28/2016 without any focal infiltrate. INPATIENT MEDICATIONS reviewed by myself. ASSESSMENT: This is an 81-year-old gentleman with past medical history of end-stage renal disease on hemodialysis, insulin-dependent diabetes, peripheral vascular disease, gout, admitted with fever and sepsis and found to have gangrene in the toes. He is status post right big toe and 3rd toe amputation and left big toe amputation. He is now discharge pending. PLAN: 1. End-stage renal disease, on hemodialysis. The patient's regular dialysis days are Thursday, Thursday, Thursday. He will be dialyzed as an outpatient today. This has been arranged with the unit. 2. Cough and wheezing. The patient continues on prednisone 40 mg daily and has completed a course of intravenous (IV) antibiotics, as well. He is stable on 2 liters nasal cannula and was previously also dependent on home oxygen. 3. Osteomyelitis of the toes, status post amputation of two toes of the right foot and one toe of the left foot. He has completed 10 days of IV ceftazidime. Continue with local wound care. 4. Anemia of end-stage renal disease. Hemoglobin is at goal, 10.0; and the patient continues on Aranesp postdialysis. 5. Leukocytosis. White count increased from 5 to 11.4, likely due to oral steroids, prednisone 40 mg. MTDD
--- NOTE | 2016-12-02 14:03 | DSES ---
DATE OF ADMISSION: 11/19/2016 DATE OF DISCHARGE: 12/01/2016 ATTENDING PHYSICIAN: Hari Nolan MD PRIMARY CARE PHYSICIAN: Volodymyr Clark MD, at [facility] HISTORY OF PRESENT ILLNESS: An 81-year-old gentleman who is a patient of [facility]. On day of admission, awoke feeling poorly and decreased appetite. The patient was noted to have a temperature of 102.7 and was subsequently transferred to the emergency department for further evaluation. The emergency department (ED) identified a left lower extremity cellulitis and multiple gangrenous toes. Initial imaging was concerning for osteomyelitis in the bilateral great toes. The patient was subsequently admitted to the family medicine service. HOSPITAL COURSE: Nephrology continued to follow the patient and manage his renal needs, as well as hemodialysis. Podiatry was consulted. MRI of the feet was obtained, which proved evidence of osteomyelitis in the distal 3rd phalanx of the right foot, as well as the 1st great toes. The patient and podiatry opted for amputation of bilateral 1st and the right foot 3rd toe secondary to osteomyelitis. The patient's Plavix was held for 5 days and subsequently underwent amputation on 11/26/2016. The patient was maintained on ceftazidime on vancomycin days. The patient subsequently resumed all regular routine medications. Started treatment with physical therapy. He was able to ambulate short distances and has been deemed appropriate for discharge back to [facility]. As of yesterday, the patient did have some slightly wheezing and a mild cough. Chest x-ray was negative. He was placed on prednisone 40 mg daily with improvement in his symptoms. On physical examination today, the patient is without cough, sore throat, chest pain, blurred vision, dizziness, or shortness of breath. Oxygen saturation 94% on 2 liters nasal cannula. Blood pressure 138/82. Respiratory rate 20. Temperature 98.1. Heart rate is in the 80-100 range. HEENT: Neck is supple without lymphadenopathy or jugular venous distention (JVD). Cardiovascular: Heart rate and rhythm are regular. Pulmonary: Lungs are clear to auscultation bilaterally. Abdomen: Is soft and nontender with positive bowel sounds throughout. Bilateral lower extremities: Are without any edema. Bilateral feet have clean, dry, and intact dressings. IMAGING: Completed includes multiple x-rays of the foot, as well as MRI, as already stated. The patient had a vascular ultrasound on 11/20/2016, which showed no deep venous thrombosis (DVT). He is also status post chest x-ray on 11/28/2016, which proved interstitial coarsening, which is mildly increased from prior studies. No acute disease appreciated. CONSULTATIONS: 1. Nephrology, Dr. Bass, and Dr. Bonilla. 2. Dr. Wooten, podiatry. ASSESSMENT: DISCHARGE DIAGNOSES: 1. Osteomyelitis of bilateral feet, 1st toes, and the right 3rd toe with gangrene, status post amputation. 2. End-stage renal disease, on hemodialysis. SECONDARY DIAGNOSES: Include: 1. Diabetes. 2. Hypertension. 3. Peripheral vascular disease. 4. Coronary artery disease. 5. Diastolic heart failure. 6. Chronic obstructive pulmonary disease. 7. Hyperlipidemia. 8. Gout. PLAN: The patient will be discharged back to [facility]. Diet is [id number]. Activity is per physical therapy recommendations. The patient will continue physical therapy at [facility]. Wound care is per Dr. Wooten's recommendations. MEDICATIONS: Are as follows: - acetaminophen 650 mg per rectum every 4 hours as needed - Tylenol 325 mg two by mouth every 4 hours as needed for pain - hydrocodone 5/325 one tablet by mouth three times weekly, Thursday, Thursday, Thursday prior to dialysis at 1430 - hydrocodone 5/325 one tablet every 4 hours as needed - albuterol sulfate nebulizers every 6 hours as needed - DuoNebs every 6 hours as needed - aspirin 81 mg one daily - atorvastatin 20 mg by mouth nightly - Dulcolax 10 mg per rectum daily - calcium acetate 667 mg by mouth three times a day - Plavix 75 mg by mouth daily - enema as needed bowel care constipation daily - vitamin D 50,000 international units by mouth the first of every month - Uloric 40 mg daily - gabapentin 300 mg by mouth twice a day - NovoLog regular insulin sliding scale before meals - Lantus 10 units subcutaneous at bedtime - milk of magnesia 30 mL by mouth daily as needed constipation - multivitamin one tablet daily - nitroglycerin 0.4 mg sublingual every 5 minutes as needed chest pain - pantoprazole 40 mg by mouth daily - MiraLAX 17 grams by mouth daily as needed - prednisone 5 mg by mouth daily - prednisone 40 mg by mouth daily for the next 5 days The patient is discharged in stable and satisfactory condition with no further questions at time of discharge. MTDD
[2016-12-04] MEDS ORDERED: predniSONE 5 MG TAB PO SCH (09:00)
== END 2016-12-01 11:00 | DRG 503 ==
LOC: M ED 09:33 → M ED INP 14:01 → M MSPAV 20:35
PROVIDERS: ADMIT Family Medicine; ATTEND Family Medicine
PROC: 5A1D60Z (ICD-10-PCS; 2016-11-19)
PROC: 0Y6Q0Z1 Detachment at Left 1st Toe, High, Open Approach (ICD-10-PCS; 2016-11-26)
PROC: 0Y6P0Z1 Detachment at Right 1st Toe, High, Open Approach (ICD-10-PCS; 2016-11-26)
PROC: 0Y6T0Z3 Detachment at Right 3rd Toe, Low, Open Approach (ICD-10-PCS; principal; 2016-11-26 14:30)
DX: M86.171 Other acute osteomyelitis, right ankle and foot (principal); N18.6 End stage renal disease; M86.172 Other acute osteomyelitis, left ankle and foot; I50.32 Chronic diastolic (congestive) heart failure; E11.52 Type 2 diabetes mellitus with diabetic peripheral angiopathy with gangrene; N25.81 Secondary hyperparathyroidism of renal origin; E87.2 Acidosis; N39.0 Urinary tract infection, site not specified; J44.0 Chronic obstructive pulmonary disease with (acute) lower respiratory infection; E46 Unspecified protein-calorie malnutrition; E66.9 Obesity, unspecified; I25.10 Atherosclerotic heart disease of native coronary artery without angina pectoris; J40 Bronchitis, not specified as acute or chronic; I25.2 Old myocardial infarction; I95.3 Hypotension of hemodialysis; E78.5 Hyperlipidemia, unspecified; B96.4 Proteus (mirabilis) (morganii) as the cause of diseases classified elsewhere; E11.40 Type 2 diabetes mellitus with diabetic neuropathy, unspecified; D63.1 Anemia in chronic kidney disease; M10.30 Gout due to renal impairment, unspecified site; Z79.4 Long term (current) use of insulin; E87.5 Hyperkalemia; Z95.820 Peripheral vascular angioplasty status with implants and grafts; Z87.891 Personal history of nicotine dependence; Z79.82 Long term (current) use of aspirin; Z79.52 Long term (current) use of systemic steroids; Z99.2 Dependence on renal dialysis; Z68.32 Body mass index [BMI] 32.0-32.9, adult

== ENCOUNTER → 2016-12-09 | Outpatient (REF) | payer MEDICARE, MEDICAID ==
[~2016-12-09] MED LIST changes: +CEFT1INJ3 INJ; +DOXY100T PO; +GUAI100S7 PO; +IPRASOL4 NEB; +PRED20TA PO
== END ==
LOC: M RAD 06:00
PROVIDERS: ATTEND Family Medicine
DX: R05 Cough (principal); Z53.9 Procedure and treatment not carried out, unspecified reason

== ENCOUNTER → 2016-12-09 | Outpatient (REF) | payer MEDICARE, MEDICAID ==
[2016-12-09 07:19] LABS: MEAN CORPUSCULAR HEMOGLOBIN 31.5 pg (27.0-33.0); MEAN CORPUSCULAR HGB CONC 31.1 g/dl (32.0-36.5); MEAN CORPUSCULAR VOLUME 101.4 fl (80.0-96.0); RED CELL DISTRIBUTION WIDTH 16.3 % (11.5-14.5); WHITE BLOOD COUNT 12.9 K/mm3 (4.0-10.0)
--- NOTE | 2016-12-09 09:13 | REP ---
Portable chest x-ray: Single view. History: Chest congestion, fever, coughing. Comparison study: November 28, 2016. Findings: Oxygen delivery tubing is seen. A right internal jugular tunneled catheter is noted in place as before. Mild cardiomegaly is seen. Interstitial markings are increased diffusely. No focal infiltrate is appreciated. No pleural effusion seen. Impression: No focal infiltrate. Cardiomegaly. Right-sided tunnel catheter. Signed by Brad Posada MD 12/09/2016 09:13 A
== END ==
LOC: SKLAB3 06:40
PROVIDERS: ATTEND Family Medicine
DX: R09.89 Other specified symptoms and signs involving the circulatory and respiratory systems (principal); R50.9 Fever, unspecified; R05 Cough; I51.7 Cardiomegaly; Z96.9 Presence of functional implant, unspecified

== ENCOUNTER 2016-12-10 20:03 | Inpatient (IN) | payer MEDICARE, MEDICAID ==
[~2016-12-10] VITALS: Ht 162.6 cm; Wt 79.6 kg
[2016-12-10] MEDS: HEPARIN SOD (PORCINE) 5000 UNITS/ML VIAL SC SCH (01:10)
[~2016-12-10 20:03] MED LIST changes: -CEFT1INJ3 INJ; -DOXY100T PO; -GUAI100S7 PO
[2016-12-10] MEDS ORDERED: IPRATROPIUM 0.5MG/ALBUTEROL 2.5MG INH SOL UD 3ML (DUONEB)(J7620) NEB ONE (20:30)
[2016-12-10 20:46] LABS: VENOUS O2 SATURATION 66.6 % (60.0-80.0); VENOUS PARTIAL PRESSURE CO2 51.8 mmHg (38.0-50.0); VENOUS STANDARD HCO3 28.4 MEQ/L; VENOUS TOTAL CO2 32.4 MEQ/L (24.0-28.0)
[2016-12-10 20:47] VITALS: O2SAT 93
[2016-12-10 20:48] LABS: BASO % 0.4 % (0.0-1.0); EOS # 0.4 K/mm3 (0.0-0.50); EOS % 3.6 % (0.0-3.0); LARGE UNSTAINED CELL # 0.1 K/mm3 (0.0-0.4); LARGE UNSTAINED CELL % 0.7 % (0.0-4.0); LYMPH # 0.8 K/mm3 (1.5-4.5); LYMPH % 7.1 % (24.0-44.0); MEAN CORPUSCULAR HEMOGLOBIN 31.5 pg (27.0-33.0); MEAN CORPUSCULAR HGB CONC 31.1 g/dl (32.0-36.5); MEAN CORPUSCULAR VOLUME 101.4 fl (80.0-96.0); MONO # 0.4 K/mm3 (0.0-0.8); NEUTROPHILS % 84.2 % (36.0-66.0); PLATELET COUNT, AUTOMATED 228 k/mm3 (150-450); RED CELL DISTRIBUTION WIDTH 15.7 % (11.5-14.5); WHITE BLOOD COUNT 10.6 K/mm3 (4.0-10.0)
[2016-12-10 21:25] LABS: ALBUMIN 2.6 GM/DL (3.2-5.2); ALKALINE PHOSPHATASE 72 U/L (45-117); ALT/SGPT 18 U/L (12-78); AST/SGOT 22 U/L (15-37); BILIRUBIN,DIRECT < 0.1 MG/DL (0.0-0.2); BILIRUBIN,TOTAL 0.3 MG/DL (0.2-1.0); TOTAL PROTEIN 6.9 GM/DL (6.4-8.2)
[2016-12-10 21:36] LABS: CALCIUM LEVEL 7.8 MG/DL (8.8-10.2); CREATININE FOR GFR 3.42 MG/DL (0.70-1.30); GLOMERULAR FILTRATION RATE 18.5 (>35); POTASSIUM SERUM 4.4 MEQ/L (3.5-5.1)
--- NOTE | 2016-12-10 22:11 | REP ---
Clinical: Dyspnea. Comparison: 12/09/2016. Findings: Stable cardiomegaly. Double-lumen central venous catheter with tip in the SVC. Chronic interstitial changes are appreciated and improved superimposed interstitial edema cannot be excluded. No obvious effusion, consolidation or pneumothorax. Impression: Chronic interstitial changes. Suspected improved interstitial edema. Signed by Ramesh Mc MD 12/10/2016 10:02 P
--- NOTE | 2016-12-10 23:01 | REP ---
Clinical: Cough and shortness of breath. Comparison: 09/08/2016. Findings: Moderate interstitial edema and pulmonary vascular congestion is appreciated including cephalization and prominent vasculature, increased interstitial markings, and mild bibasilar atelectasis. Underlying chronic interstitial changes including elements of emphysematous disease and fibrosis/scarring are again identified and similar to prior examination. No significant pleural effusion. No pneumothorax. Tracheobronchial tree is patent. The mediastinum demonstrates extensive atherosclerotic changes to the coronary arteries, thoracic aorta, and major branch vessels. No evidence for aortic aneurysm. The cardiac silhouette is mildly enlarged without pericardial effusion. Surrounding musculoskeletal structures demonstrate age-related degenerative changes. Limited evaluation of the upper abdomen demonstrates cholelithiasis as well as atrophic appearance to the visualized kidneys. Impression: 1. Early / mild interstitial edema and pulmonary vascular congestion including prominent pulmonary vasculature and cephalization, increased interstitial markings and mild bibasilar atelectasis. No pleural effusion. 2. Mild chronic cardiomegaly without pericardial effusion. 3. Chronic pleuroparenchymal changes as described above. 4. Extensive atherosclerotic changes. 5. Cholelithiasis and atrophic appearance to the bilateral kidneys. Signed by Ramesh Mc MD 12/10/2016 10:53 P
[2016-12-11] VITALS (7 sets, daily range): BP systolic 126–151; BP diastolic 62–83
[2016-12-11] MEDS ORDERED: GLUCOSE 4 GM CHEW TABLET PO PRN
[2016-12-11] MEDS ORDERED: DEXTROSE 50% 50 ML SYRINGE IV PRN
[2016-12-11] MEDS ORDERED: GLUCAGON FOR INJ 1 MG VIAL (J1610) SC PRN
[2016-12-11] MEDS ORDERED: DOXY100T PO (00:17)
[2016-12-11] MEDS ORDERED: CEFT1INJ3 INJ (00:17)
[2016-12-11] MEDS ORDERED: GUAI100S7 PO (00:17)
[2016-12-11] MEDS ORDERED: NITROGLYCERIN 0.4 MG SUBL TABLET SL PRN (01:00)
[2016-12-11] MEDS ORDERED: MOM 30ML SUSPENSION UDC PO PRN (01:00)
[2016-12-11] MEDS ORDERED: FLEET ENEMA PR PRN (01:00)
[2016-12-11] MEDS ORDERED: BISACODYL 10 MG SUPP PR PRN (01:00)
[2016-12-11] MEDS ORDERED: cefTRIAXone SOD 1 GM in D5W MINI-BAG PLUS 50 ML IV SCH (01:00)
--- NOTE | 2016-12-11 01:06 | HPEPDOC ---
General Date of Admission Dec 10, 2016 at 23:58 Chief Complaint The patient is a 81-year-old male Presented to the ER from dialysis center after he was noted to be more weak, SOB and lethargic. History of Present Illness Patient is an 81 year old male with a PMHx of ESRD on HD (MWF), CAD / NE s/p stents, Diastolic CHF (ECHO 10/2016), COPD (on 2L O2), DLP, IDDM2, Peripheral vascular disease (s/p iliac and celiac artery stents), Neuropathy and Gout. Patient was recently being treated for community acquired pneumonia at the [facility]. He was on Ceftriaxone and Doxycycline. However during HD today, patient was noted to have some change in his mental status as the staff mentioned he was more lethargic. He was also experiencing worsening shortness of breath. Upon questioning the patient, he notes that he feels much weaker than usual. He notes that he is SOB and has a productive cough, but unable to expectorate much. He denies any fever or chills. He denies chest pain, palpitations, nausea / vomiting, abdominal pain, constipation, or diarrhea. Patient has noted that despite HD, he still makes urine, and has recently had complaints of burning and urgency. He denies any frequency. He denies any headache, loss of consciousness or any muscles weakness / sensory loss. Home Medications Scheduled (Aspirin) 81 Mg Chw, 81 MG PO DAILY, (Reported) Acetaminophen/Hydrocodone ([place] 5-325 mg) 1 Tab Tab, 1 TAB PO ASDIRECTED, ( Reported) MON Thu BEFORE DIALYSIS AT 1430 Atorvastatin Calcium (Lipitor) 20 Mg Tab, 20 MG PO QHS, (Reported) Calcium Acetate (Calcium Acetate) 667 Mg Cap, 667 MG PO AC, (Reported) Ceftriaxone Sodium (Ceftriaxone Sodium) 1 Gm Inj, 1 GM INJ DAILY, (Reported) TAKES AT 1100 FOR 7 DAYS Clopidogrel Bisulfate (Clopidogrel) 75 Mg Tab, 75 MG PO DAILY, (Reported) TAKES AT 1200 Doxycycline Hyclate (Doxycycline Hyclate) 100 Mg Tab, 100 MG PO BID, (Reported) Ergocalciferol (Vitamin D) 50,000 Unit Cap, 50,000 UNIT PO ASDIRECTED, (Reported ) 1ST OF EVERY MONTH AT 1200 Febuxostat (Uloric) 40 Mg Tab, 40 MG PO DAILY, (Reported) TAKES AT 1200 Gabapentin (Gabapentin) 300 Mg Cap, 300 MG PO BID, (Reported) TAKES AT 1200 AND QHS Insulin Aspart (Novolog) 100 U/Ml Inj, 1 DOSE SC AC, (Reported) PER SLIDING SCALE Insulin Glargine (Lantus) 100 Unit/Ml Inj, 10 UNIT SQ QHS, (Reported) Multivitamins *[facility] STOCKED* (Thera M Plus *[facility] STOCKED*) 1 Tab Tab, 1 TAB PO DAILY, (Reported) TAKES AT 1200 Pantoprazole Sodium Sesquihydr (Protonix) 40 Mg Tab, 40 MG PO DAILY, (Reported) TAKES AT 1200 Polyethylene Glycol (Miralax) 1 Pow Pow, 17 GM PO DAILY, (Reported) TAKES AT 1200 Scheduled PRN (Enema Disposable) 1 Tejinder Tejinder, 1 TEJINDER NC DAILY PRN for CONSTIPATION, (Reported) Acetaminophen (Tylenol) 325 Mg Tab, 650 MG PO Q4H PRN for PAIN OR FEVER, ( Reported) Acetaminophen (Acephen) 650 Mg Sup, 650 MG NC Q4H PRN for PAIN / FEVER, ( Reported) Acetaminophen/Hydrocodone ([place] 5-325 mg) 1 Tab Tab, 1 TAB PO Q4H PRN for PAIN, (Reported) Albuterol Sulfate (Albuterol Sulfate) 2.5 Mg/3 Ml Nebu, 2.5 MG INH Q6H PRN for DYSPNEA, (Reported) Albuterol/Ipratropium (Ipratropium [place]/Albut 0.5-2.5 (3) mg/3Ml) 1 Isac Isac, 1 ISAC INH Q6H PRN for SHORTNESS OF BREATH, (Reported) Bisacodyl (Dulcolax) 10 Mg Sup, 10 MG NC DAILY PRN for CONSTIPATION, (Reported) Guaifenesin (Guaifenesin) 100 Mg/5 Ml Syp, 10 ML PO Q6H PRN for COUGH, (Reported ) Milk Of Magnesia (Milk of Magnesia) 1,200 Mg/15 Ml Karen, 30 ML PO DAILY PRN for CONSTIPATION, (Reported) Nitroglycerin (Nitroglycerin) 0.4 Mg Sub, 0.4 MG SL NITRO PRN for CHEST PAIN, ( Reported) Allergies Coded Allergies: No Known Drug Allergy (Verified Allergy, Unknown, 07/19/12) Past Medical History Medical History ESRD on HD (MWF), CAD / NE s/p stents, Diastolic CHF (ECHO 10/2016), COPD (on 2L O2), DLP, IDDM2, Peripheral vascular disease (s/p iliac and celiac artery stents ), Neuropathy and Gout Surgical History Bilateral toe amputations Right 3rd digit toe amputation Fistula surgery at right upper extremity HD catheter placement on right chest Family History - Non-contributory Social History - Denies the use of illicit drugs; Quit drinking alcohol; Quit smoking 14 years ; noted to smoke for >40 years at 1ppd - Denies recent travel or sick contacts - Lives at [facility] - 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; 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 Review of Symptoms Other systems 10 point review of systems complete; all negative, otherwise stated in HPI Vital Signs - Vitals: BP 151/76, HR 106, RR 22, Sat 94%NC2L, Temp 97.9F - General: Lying in bed, No acute distress, Speaking in full sentences, AAOx3 - HEENT: NC, AT, PERRLA, EOMI - CVS: Tachycardic, regular rhythm, +S1S2, - Lungs: Fair air entry bilaterally, +Wheezing bilaterally - Abdomen: Soft, Non-distended, Non-tender, + Bowel sounds x 4 - Extremities: No lower extremity edema, No calf tenderness - Neuro: No focal motor or sensory deficit - Skin: No visible rashes Laboratory Data Labs 24H Laboratory Tests 2 12/10/16 20:35: White Blood Count 10.6H, Red Blood Count 3.12L, Hemoglobin 9.8L, Hematocrit 31.6L, Mean Corpuscular Volume 101.4H, Mean Corpuscular Hemoglobin 31.5, Mean Corpuscular Hemoglobin Concent 31.1L, Red Cell Distribution Width 15.7H, Platelet Count 228, Neutrophils (%) (Auto) 84.2H, Lymphocytes (%) (Auto) 7.1L, Monocytes (%) (Auto) 4.0, Eosinophils (%) (Auto) 3.6H, Basophils (%) (Auto) 0.4 , Neutrophils # (Auto) 9.0H, Lymphocytes # (Auto) 0.8L, Monocytes # (Auto) 0.4, Eosinophils # (Auto) 0.4, Basophils # (Auto) 0.0, Large Unclassified Cells % 0.7 , Large Unclassified Cells # 0.1, Blood Gas Bicarbonate Standard 28.4, Venous Blood pH 7.392, Venous Blood Partial Pressure CO2 51.8H, Venous Blood Partial Pressure O2 33.0, Venous Blood Total Carbon Dioxide 32.4H, Venous Blood HCO3 30.8H, Venous Blood Oxygen Saturation 66.6, Venous Blood Base Excess 5.0H, Anion Gap 9, Glomerular Filtration Rate 18.5L, Lactic Acid Level 1.7, Blood Urea Nitrogen 18, Creatinine 3.42H, Sodium Level 141, Potassium Level 4.4, Chloride Level 104, Carbon Dioxide Level 28, Calcium Level 7.8L, Total Creatine Kinase 64, Aspartate Amino Transf (AST/SGOT) 22, Alanine Aminotransferase (ALT/ SGPT) 18, Alkaline Phosphatase 72, Total Bilirubin 0.3, Direct Bilirubin < 0.1, Creatine Kinase MB 1.8, Creatine Kinase MB Relative Index 2.81, Troponin I 0.09 , Total Protein 6.9, Albumin 2.6L, Albumin/Globulin Ratio 0.60L CBC/BMP Laboratory Tests 12/10/16 20:35 Red Blood Count 3.12 L, Mean Corpuscular Volume 101.4 H, Mean Corpuscular Hemoglobin 31.5, Mean Corpuscular Hemoglobin Concent 31.1 L, Red Cell Distribution Width 15.7 H, Neutrophils (%) (Auto) 84.2 H, Lymphocytes (%) (Auto ) 7.1 L, Monocytes (%) (Auto) 4.0, Eosinophils (%) (Auto) 3.6 H, Basophils (%) ( Auto) 0.4, Neutrophils # (Auto) 9.0 H, Lymphocytes # (Auto) 0.8 L, Monocytes # ( Auto) 0.4, Eosinophils # (Auto) 0.4, Basophils # (Auto) 0.0, Calcium Level 7.8 L , Total Creatine Kinase 64 Microbiology Microbiology 12/10/16 Blood Culture, Received Pending 12/10/16 Blood Culture, Received Pending Plan / VTE VTE Prophylaxis Ordered?: Yes Plan Plan Shortness of breath possibly 2/2 community acquire pneumonia, possibly 2/2 fluid overload, less likely COPD exacerbation - Presented with worsening shortness of breath, productive cough - Recent treatment for pneumonia as an outpatient at [facility] - Physical with course lung sounds bilaterally - Leukocytosis of 10.6; however has been noted to have improved; No lactic acidosis - ABG without any significant pCO2 retention - CT chest: early / mild interstitial edema / pulmonary vascular congestion, no definitive infiltrate noted - Will c/w current antibiotic regimen - Will consult Nephrology; possibly may benefit from additional HD session to remove fluid Possible lethargy outpatient - Is oriented to person, place and time currently Macrocytic anemia - Hg appears to be at baseline ESRD on HD (MWF) - c/w Calcium acetate - Will consult Nephrology CAD / NE s/p stents - c/w ASA and Plavix - c/w Nitroglycerin PRN Diastolic CHF (ECHO 10/2016) COPD (on 2L O2) - Will start Duoneb breathing treatments - c/w Prednisone DLP - c/w Atorvastatin IDDM2 - c/w ISS - Will switch Glargine to Levemir 10 QHS Peripheral vascular disease (s/p iliac and celiac artery stents) Neuropathy - c/w Gabapentin Gout - c/w Febuxostat GERD - c/w Protonix DVT prophylaxis - Will start Heparin DAVID JETER MD Dec 11, 2016 01:06
[2016-12-11] MEDS: LEVEMIR (INSULIN DETEMIR) 1 UNITS/0.01ML SC SCH ×2 (02:14→21:16)
[2016-12-11] MEDS: ATORVASTATIN 20 MG TAB PO SCH ×2 (02:14→21:16)
[2016-12-11] MEDS: GABAPENTIN 300 MG CAP PO SCH ×3 (02:14→21:16)
[2016-12-11] MEDS: DOXYCYCLINE HYCLATE 100 MG in D5W MINI-BAG PLUS 100 ML IV SCH ×2 (02:15→13:42)
[2016-12-11] MEDS: NORCO, ANEXSIA 5/325MG TABLET (HYDROcodone/ACETAMINOPHEN) PO PRN ×2 (02:27→12:42)
[2016-12-11] MEDS: HEPARIN SOD (PORCINE) 5000 UNITS/ML VIAL SC SCH ×3 (05:59→21:16)
[2016-12-11 07:02] LABS: BASO % 0.3 % (0.0-1.0); EOS # 0.5 K/mm3 (0.0-0.50); EOS % 4.7 % (0.0-3.0); LARGE UNSTAINED CELL # 0.1 K/mm3 (0.0-0.4); LARGE UNSTAINED CELL % 0.7 % (0.0-4.0); LYMPH # 1.1 K/mm3 (1.5-4.5); MEAN CORPUSCULAR HEMOGLOBIN 30.6 pg (27.0-33.0); MEAN CORPUSCULAR HGB CONC 30.6 g/dl (32.0-36.5); MEAN CORPUSCULAR VOLUME 100.1 fl (80.0-96.0); MONO # 0.4 K/mm3 (0.0-0.8); MONO % 4.1 % (0.0-5.0); NEUTROPHILS % 80.1 % (36.0-66.0); PLATELET COUNT, AUTOMATED 197 k/mm3 (150-450); RED CELL DISTRIBUTION WIDTH 15.7 % (11.5-14.5)
[2016-12-11] MEDS: HumaLOG INSULIN (NovoLOG) PER UNIT SC SCH ×4 (07:30→21:00)
[2016-12-11] MEDS: CALCIUM ACETATE 667 MG GELCAP PO SCH ×3 (07:30→18:00)
[2016-12-11 07:36] LABS: ALBUMIN 2.7 GM/DL (3.2-5.2); ALBUMIN/GLOBULIN RATIO 0.79 (1.00-1.93); BILIRUBIN,TOTAL 0.4 MG/DL (0.2-1.0); CALCIUM LEVEL 8.1 MG/DL (8.8-10.2); CREATININE FOR GFR 4.06 MG/DL (0.70-1.30); GLOMERULAR FILTRATION RATE 15.2 (>35); MAGNESIUM LEVEL 2.6 MG/DL (1.8-2.4); POTASSIUM SERUM 4.2 MEQ/L (3.5-5.1); TOTAL PROTEIN 6.1 GM/DL (6.4-8.2)
[2016-12-11] MEDS: ASPIRIN 81 MG CHEW TABLET PO SCH (08:47)
[2016-12-11] MEDS: predniSONE 5 MG TAB PO SCH (08:47)
[2016-12-11] MEDS: ONDANSETRON 4MG/2ML VIAL (J2405) IV PRN (09:45)
[2016-12-11] MEDS ORDERED: HEPARIN 1,000 UNITS/ML 10ML VIAL (FOR RADIOLOGY& DIALYSIS ONLY) IV ONE (12:00)
[2016-12-11] MEDS: CLOPIDOGREL 75 MG TAB PO SCH (12:39)
[2016-12-11] MEDS: MIRALAX *UNIT DOSE* 17GM PACKET PO SCH (12:39)
[2016-12-11] MEDS: PANTOPRAZOLE 40MG TAB (PROTONIX) PO SCH (12:40)
[2016-12-11] MEDS: MULTIVITAMINS/MINERALS THERAP 1 TAB PO SCH (12:40)
[2016-12-11] MEDS: methylPREDNISolone INJ 125 MG/2 ML VIAL (J2930) IV SCH (12:41)
[2016-12-11] MEDS: IPRATROPIUM 0.5MG/ALBUTEROL 2.5MG INH SOL UD 3ML (DUONEB)(J7620) NEB SCH ×2 (14:02→19:30)
[2016-12-11] MEDS: FEBUXOSTAT 40 MG TABLET (ULORIC) PO SCH (14:23)
--- NOTE | 2016-12-11 14:27 | IPN ---
DATE: 12/11/2016 Nnamdi was seen in dialysis. His history and physical has been reviewed. Examination was limited by the dialysis session. He feels less short of breath. He denies any chills. On physical examination, vital signs per flow sheet. Lying flat in bed. No jugular venous distention. Lungs with decreased breath sounds. Bilateral wheezes. Heart regular rate and rhythm. Abdomen obese, nontender. Trace to 1+ peripheral edema. LABS: CBC is stable. Potassium 4.2. IMPRESSION: 1. Health care associated pneumonia. He is admitted from the care home. He currently has community acquired pneumonia coverage. I would like to broaden the spectrum as he came from the care home. Will continue the doxycycline, but will stop the Rocephin and change to ceftaroline, which will cover Methicillin-resistant Staphylococcus aureus (MRSA). 2. End stage renal disease, on dialysis. Per nephrology. 3. History of coronary artery disease. Continue aspirin and Plavix. 4. Systolic congestive heart failure. Volume status regulated by nephrology. 5. Diabetes. He is on basal insulin and sliding scale, which we will continue. 6. Hyperlipidemia. Continue atorvastatin. 7. Diabetic neuropathy. Continue with gabapentin. 8. History of gout. On prophylactic medication with Uloric. 9. Chronic obstructive pulmonary disease (COPD) exacerbation, on bronchodilator. He is on systemic steroids while here.
[2016-12-11] MEDS: CEFTAROLINE FOSAMIL 300 MG in D5W 50 ML IV SCH (16:04)
[2016-12-11] MEDS ORDERED: DARBEPOETIN 100 MCG/0.5 ML *DIALYSIS* SYRINGE (J0882) IV SCH (22:15)
[2016-12-12] MEDS: methylPREDNISolone INJ 125 MG/2 ML VIAL (J2930) IV SCH ×2 (01:01→14:13)
[2016-12-12] MEDS: DOXYCYCLINE HYCLATE 100 MG in D5W MINI-BAG PLUS 100 ML IV SCH ×2 (01:57→13:31)
[2016-12-12] MEDS: IPRATROPIUM 0.5MG/ALBUTEROL 2.5MG INH SOL UD 3ML (DUONEB)(J7620) NEB SCH ×4 (01:58→20:39)
[2016-12-12] MEDS: CEFTAROLINE FOSAMIL 300 MG in D5W 50 ML IV SCH ×2 (03:15→17:04)
[2016-12-12 04:00] VITALS: BP 136/77
--- NOTE | 2016-12-12 06:02 | ECGEPIP ---
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
[2016-12-12] MEDS: HEPARIN SOD (PORCINE) 5000 UNITS/ML VIAL SC SCH ×3 (06:17→22:34)
[2016-12-12 07:15] LABS: BASO % 0.2 % (0.0-1.0); EOS % 0.1 % (0.0-3.0); LARGE UNSTAINED CELL % 0.3 % (0.0-4.0); LYMPH # 0.4 K/mm3 (1.5-4.5); LYMPH % 4.5 % (24.0-44.0); MEAN CORPUSCULAR HGB CONC 30.8 g/dl (32.0-36.5); MEAN CORPUSCULAR VOLUME 100.8 fl (80.0-96.0); MONO # 0.2 K/mm3 (0.0-0.8); MONO % 2.1 % (0.0-5.0); NEUTROPHILS # 8.1 K/mm3 (1.8-7.7); NEUTROPHILS % 92.8 % (36.0-66.0); PLATELET COUNT, AUTOMATED 197 k/mm3 (150-450); RED CELL DISTRIBUTION WIDTH 15.6 % (11.5-14.5); WHITE BLOOD COUNT 8.7 K/mm3 (4.0-10.0)
[2016-12-12] MEDS: CALCIUM ACETATE 667 MG GELCAP PO SCH ×3 (07:30→17:05)
[2016-12-12 07:35] LABS: ALBUMIN 2.7 GM/DL (3.2-5.2); ALBUMIN/GLOBULIN RATIO 0.64 (1.00-1.93); BILIRUBIN,TOTAL 0.4 MG/DL (0.2-1.0); CALCIUM LEVEL 9.1 MG/DL (8.8-10.2); CREATININE FOR GFR 4.18 MG/DL (0.70-1.30); GLOMERULAR FILTRATION RATE 14.7 (>35); MAGNESIUM LEVEL 2.5 MG/DL (1.8-2.4); TOTAL PROTEIN 6.9 GM/DL (6.4-8.2)
[2016-12-12 08:00] VITALS: BP 134/90
[2016-12-12] MEDS: HumaLOG INSULIN (NovoLOG) PER UNIT SC SCH ×4 (08:14→21:00)
[2016-12-12] MEDS: predniSONE 5 MG TAB PO SCH (09:00)
[2016-12-12] MEDS ORDERED: HEPARIN 1,000 UNITS/ML 10ML VIAL (FOR RADIOLOGY& DIALYSIS ONLY) IV ONE (10:15)
[2016-12-12] MEDS ORDERED: HEPARIN 1,000 UNITS/ML 10ML VIAL (FOR RADIOLOGY& DIALYSIS ONLY) XX ONE (10:15)
[2016-12-12 12:00] VITALS: BP 120/58
[2016-12-12] MEDS ORDERED: VITAMIN D 50,000 UNITS CAPSULE (ERGOCALCIFEROL 1.25MG) PO SCH (12:00)
[2016-12-12] MEDS: ASPIRIN 81 MG CHEW TABLET PO SCH (13:29)
[2016-12-12] MEDS: PANTOPRAZOLE 40MG TAB (PROTONIX) PO SCH (13:29)
[2016-12-12] MEDS: CLOPIDOGREL 75 MG TAB PO SCH (13:29)
[2016-12-12] MEDS: GABAPENTIN 300 MG CAP PO SCH ×2 (13:30→22:33)
[2016-12-12] MEDS: MULTIVITAMINS/MINERALS THERAP 1 TAB PO SCH (13:30)
[2016-12-12] MEDS: MIRALAX *UNIT DOSE* 17GM PACKET PO SCH (13:30)
[2016-12-12] MEDS: FEBUXOSTAT 40 MG TABLET (ULORIC) PO SCH (13:31)
[2016-12-12 16:00] VITALS: BP 120/56
--- NOTE | 2016-12-12 18:01 | IPN ---
DATE: 12/12/2016 SUBJECTIVE: The patient was seen on [facility]. His roommate from [facility] was visiting, so our encounter was abbreviated. He is not coughing or short of breath, and feels better than he did yesterday. OBJECTIVE: VITAL SIGNS: 120/58, pulse 76, respiratory rate 18, temperature 98.6 degrees. NECK: No jugular venous distention (JVD). LUNGS: Scattered rhonchi. HEART: Regular rhythm. ABDOMEN: Obese, nontender. No masses. EXTREMITIES: Trace peripheral edema. LABORATORY DATA: White count is down to 8.9, hemoglobin is 9.5. Potassium is six. Blood sugar 280. IMPRESSION: 1. Healthcare-associated pneumonia. He is on ceftaroline 300 mg every 12 hours, and intravenous (IV) doxycycline, day two for the doxycycline. He has had one full day of ceftaroline. Seems to be responding to this. 2. Hyperkalemia per nephrology. He is followed by nephrology and gets hemodialysis. Staff was notified nephrology has the hyperkalemia. 3. Chronic kidney disease/end-stage renal disease per nephrology. He underwent dialysis today. 4. Systolic congestive heart failure. Volume status regulated by dialysis. The rest of the medical problems outlined yesterday are stable.
[2016-12-12 20:23] VITALS: BP 129/84
--- NOTE | 2016-12-12 22:07 | IPN ---
DATE: 12/12/2016 SUBJECTIVE: The patient was seen and examined at the bedside today, morning. The patient is feeling much better today as compared with yesterday. His shortness of breath and wheezing is also improving, and he is calm and comfortable. Today is the patient's regular day of dialysis. REVIEW OF SYSTEMS: The patient denies any fever, chills, rigors, headache. The patient reports feeling weak and tired. He reports his shortness of breath is better. He denies any pain in abdomen, constipation or diarrhea. The rest of the review of system is negative. OBJECTIVE: VITAL SIGNS: Temperature is 98.6 degrees Fahrenheit, blood pressure is 134/90, pulse is 95, respiratory rate of 22, saturating 96% on nasal cannula at 2 liters. INTAKE/OUTPUT: Urine output is not recorded. Ultrafiltration with hemodialysis was 2.5 liters yesterday. Weight on the bed scale is 86.3 kg. PHYSICAL EXAMINATION: GENERAL: The patient is awake, alert, oriented times two, laying in bed, in no apparent distress. HEAD AND NECK EXAM: Extraocular muscles intact. Pupils equally round and reactive to light. Mucous membranes are moist. Neck is supple. There is no jugular venous distention (JVD). CARDIOVASCULAR: S1, S2, regular rate. No murmur, rub or gallop. RESPIRATORY: There is significant improvement in the bilateral expiratory rhonchi and there is bilateral equal air entry. ABDOMEN: Abdomen is soft, obese, positive bowel sounds, nontender, no ascites, no organomegaly. MUSCULOSKELETAL: The patient has dressings on the bilateral feet, and he has 2+ edema in the bilateral lower extremities and 1+ edema in the bilateral upper extremities. CENTRAL NERVOUS SYSTEM: No focal deficit. Power is 5/5 in bilateral upper extremities. PSYCHIATRIC: Normal mood and affect. LAB REVIEW: CBC showed a WBC of 8.7, hemoglobin 9.5, platelets are 197. BMP showed sodium 132, potassium is 6, chloride 98, bicarbonate 28, BUN 31, creatinine is 4.1, magnesium 2.5. Albumin is 2.7. Microbiology: Blood cultures are pending so far. CURRENT INPATIENT MEDICATIONS: The patient's medications were all reviewed by me. There is no change in the medications today as compared to yesterday. ASSESSMENT: An 81-year-old male with a past medical history of end-stage renal disease, on hemodialysis Thursday, Thursday, Thursday, coronary artery disease, diastolic congestive heart failure, peripheral vascular disease, chronic obstructive pulmonary disease, insulin-dependent diabetic, admitted at this time because of healthcare-associated pneumonia, shortness of breath and COPD. PLAN: 1. End-stage renal disease. The patient is hemodialysis dependent. He was dialyzed yesterday emergently because of shortness of breath and fluid overload. Today is the patient's regular day of dialysis. The patient will get another session of hemodialysis done today. 2. Healthcare-associated pneumonia. Primary team has also changed the antibiotic to ceftaroline for broader coverage. He continues to be on intravenous (IV) doxycycline as well. The rest of the management is as per primary team. 3. COPD exacerbation. The patient is on IV antibiotics. He is also on IV Solu-Medrol for 3 days, and he is getting [id number] nebulizations as well. 4. Hyperkalemia. The patient will be dialyzed against a 2K bath for 2 hours and 1K bath for 1 hour. That will hopefully improve the hyperkalemia. The patient's diet has also been changed to 2-gram potassium diet. 5. Anemia in end-stage renal disease. The patient is currently on Aranesp 100 mcg IV daily.
[2016-12-12] MEDS: ATORVASTATIN 20 MG TAB PO SCH (22:33)
[2016-12-12] MEDS: LEVEMIR (INSULIN DETEMIR) 1 UNITS/0.01ML SC SCH (22:33)
[2016-12-13 00:39] VITALS: BP 121/61
[2016-12-13] MEDS: methylPREDNISolone INJ 125 MG/2 ML VIAL (J2930) IV SCH ×3 (01:40→23:22)
[2016-12-13] MEDS: DOXYCYCLINE HYCLATE 100 MG in D5W MINI-BAG PLUS 100 ML IV SCH ×2 (01:40→14:39)
[2016-12-13] MEDS: IPRATROPIUM 0.5MG/ALBUTEROL 2.5MG INH SOL UD 3ML (DUONEB)(J7620) NEB SCH ×2 (02:23→07:38)
[2016-12-13] MEDS: CEFTAROLINE FOSAMIL 300 MG in D5W 50 ML IV SCH ×2 (03:11→15:53)
[2016-12-13 05:45] LABS: BASO % 0.1 % (0.0-1.0); EOS % 0.1 % (0.0-3.0); LARGE UNSTAINED CELL # 0.1 K/mm3 (0.0-0.4); LARGE UNSTAINED CELL % 0.5 % (0.0-4.0); LYMPH # 0.3 K/mm3 (1.5-4.5); LYMPH % 2.4 % (24.0-44.0); MEAN CORPUSCULAR HEMOGLOBIN 31.6 pg (27.0-33.0); MEAN CORPUSCULAR HGB CONC 31.9 g/dl (32.0-36.5); MEAN CORPUSCULAR VOLUME 99.1 fl (80.0-96.0); MONO # 0.3 K/mm3 (0.0-0.8); MONO % 2.8 % (0.0-5.0); NEUTROPHILS # 11.5 K/mm3 (1.8-7.7); NEUTROPHILS % 94.1 % (36.0-66.0); PLATELET COUNT, AUTOMATED 216 k/mm3 (150-450); RED CELL DISTRIBUTION WIDTH 15.3 % (11.5-14.5); WHITE BLOOD COUNT 12.2 K/mm3 (4.0-10.0)
[2016-12-13 05:52] VITALS: BP 129/75
[2016-12-13 06:02] LABS: ALBUMIN 2.7 GM/DL (3.2-5.2); ALBUMIN/GLOBULIN RATIO 0.66 (1.00-1.93); BILIRUBIN,TOTAL 0.3 MG/DL (0.2-1.0); CALCIUM LEVEL 8.6 MG/DL (8.8-10.2); CREATININE FOR GFR 3.66 MG/DL (0.70-1.30); GLOMERULAR FILTRATION RATE 17.1 (>35); MAGNESIUM LEVEL 2.4 MG/DL (1.8-2.4); POTASSIUM SERUM 4.7 MEQ/L (3.5-5.1); TOTAL PROTEIN 6.8 GM/DL (6.4-8.2)
[2016-12-13] MEDS: HEPARIN SOD (PORCINE) 5000 UNITS/ML VIAL SC SCH ×3 (06:46→23:23)
[2016-12-13] MEDS: predniSONE 5 MG TAB PO SCH (07:14)
[2016-12-13 07:48] VITALS: BP 130/65
[2016-12-13] MEDS: ASPIRIN 81 MG CHEW TABLET PO SCH (08:07)
[2016-12-13] MEDS: HumaLOG INSULIN (NovoLOG) PER UNIT SC SCH ×4 (08:07→21:00)
[2016-12-13] MEDS: CALCIUM ACETATE 667 MG GELCAP PO SCH ×3 (08:07→17:22)
[2016-12-13 11:46] VITALS: BP 125/83
[2016-12-13] MEDS: FEBUXOSTAT 40 MG TABLET (ULORIC) PO SCH (13:52)
[2016-12-13] MEDS: MULTIVITAMINS/MINERALS THERAP 1 TAB PO SCH (13:52)
[2016-12-13] MEDS: GABAPENTIN 300 MG CAP PO SCH ×2 (13:52→23:23)
[2016-12-13] MEDS: PANTOPRAZOLE 40MG TAB (PROTONIX) PO SCH (13:53)
[2016-12-13] MEDS: MIRALAX *UNIT DOSE* 17GM PACKET PO SCH (13:53)
[2016-12-13] MEDS: CLOPIDOGREL 75 MG TAB PO SCH (13:53)
[2016-12-13 16:00] VITALS: BP 119/60
--- NOTE | 2016-12-13 19:57 | IPNPDOC ---
Subjective Date Seen The patient was seen on 12/13/16. Subjective Chief Complaint/HPI The patient is a 81-year-old male admitted with a reason for visit of Fluid Overload, Pneumonia. Events since last encounter Nursing reports that he has been resting comfortably for most of the day. He seems clinically stable. When I saw him he was resting. He was arousable, but didn't want to answer any questions. He was not in pain. General: Reports: ROS Unobtainable Objective Physical Examination General Exam: Positive: No Acute Distress, Negative: Alert (but arousable) ENT Exam: Positive: Mucous membr. moist/pink Neck Exam: Negative: Lymphadenopathy Chest Exam: Positive: Rhonchi (noted in the bilateral posterior lung scott), Diminished, Negative: Wheezing Heart Exam: Positive: Rate Normal Abdomen Exam: Positive: Normal bowel sounds, Negative: Tenderness Assessment /Plan Problems (1) Healthcare associated bacterial pneumonia Status: Acute Discussed With: Nurse Problem Specific Plan: Monitor Clinically Problem Text: He was started on ceftriaxone and doxycycline. I reviewed his micro reports and don't see that he has ever grown pseudomonas anywhere. Will continue his current regimen. (2) ESRD (end stage renal disease) on dialysis Status: Chronic Discussed With: Stage Set Up Worker Problem Text: His labs actually look pretty good today, but he had dialysis yesterday. Nephrology has him on a MWF dialysis schedule I believe. Appreciate their continued assistance. (3) Diabetes Status: Chronic Problem Specific Plan: Repeat Tests Problem Text: We will continue his home regimen of 10 units of basal insulin and use the corrective insulin sliding scale. Will monitor. (4) Anemia in chronic kidney disease Status: Chronic Problem Text: His Hb is stable at this time. He is receiving Aranesp with dialysis. Continue current plan. Monitor. Plan/VTE VTE Prophylaxis Ordered?: Yes (heparin) VS, I&O, 24H, Fishbone Vital Signs/I&O Vital Signs Date Time Temp Pulse Resp B/P (MAP) Pulse Ox O2 Delivery O2 Flow Rate FiO2 12/13/16 16:00 97.3 81 18 119/60 (79) 95 Nasal Cannula 2.0 I&O- Last 24 Hours up to 6 AM 12/13/16 06:00 Intake Total 1380 ml Output Total 1500 ml Balance -120 ml Laboratory Data 24H LABS Laboratory Tests 2 12/13/16 05:08: White Blood Count 12.2H, Red Blood Count 3.02L, Hemoglobin 9.5L, Hematocrit 29.9L, Mean Corpuscular Volume 99.1H, Mean Corpuscular Hemoglobin 31.6, Mean Corpuscular Hemoglobin Concent 31.9L, Red Cell Distribution Width 15.3H, Platelet Count 216, Neutrophils (%) (Auto) 94.1H, Lymphocytes (%) (Auto) 2.4L, Monocytes (%) (Auto) 2.8, Eosinophils (%) (Auto) 0.1, Basophils (%) (Auto) 0.1, Neutrophils # (Auto) 11.5H, Lymphocytes # (Auto) 0.3L, Monocytes # (Auto) 0.3, Eosinophils # (Auto) 0.0, Basophils # (Auto) 0.0, Large Unclassified Cells % 0.5 , Large Unclassified Cells # 0.1, Anion Gap 11, Glomerular Filtration Rate 17.1L , Blood Urea Nitrogen 31H, Creatinine 3.66H, Sodium Level 134L, Potassium Level 4.7#, Chloride Level 96L, Carbon Dioxide Level 27, Calcium Level 8.6L, Aspartate Amino Transf (AST/SGOT) 8L, Alanine Aminotransferase (ALT/SGPT) 17, Alkaline Phosphatase 62, Total Bilirubin 0.3, Total Protein 6.8, Albumin 2.7L, Magnesium Level 2.4, Albumin/Globulin Ratio 0.66L CBC/BMP Laboratory Tests 12/13/16 05:08 Red Blood Count 3.02 L, Mean Corpuscular Volume 99.1 H, Mean Corpuscular Hemoglobin 31.6, Mean Corpuscular Hemoglobin Concent 31.9 L, Red Cell Distribution Width 15.3 H, Neutrophils (%) (Auto) 94.1 H, Lymphocytes (%) (Auto ) 2.4 L, Monocytes (%) (Auto) 2.8, Eosinophils (%) (Auto) 0.1, Basophils (%) ( Auto) 0.1, Neutrophils # (Auto) 11.5 H, Lymphocytes # (Auto) 0.3 L, Monocytes # (Auto) 0.3, Eosinophils # (Auto) 0.0, Basophils # (Auto) 0.0, Calcium Level 8.6 L, Aspartate Amino Transf (AST/SGOT) 8 L, Alanine Aminotransferase (ALT/SGPT) 17 , Alkaline Phosphatase 62, Total Bilirubin 0.3, Total Protein 6.8, Albumin 2.7 L Microbiology Microbiology 12/10/16 Blood Culture, Received Pending 12/10/16 Blood Culture, Received Pending Madhav Ingram MD Dec 13, 2016 19:57
[2016-12-13 21:21] VITALS: BP 126/88
--- NOTE | 2016-12-13 22:07 | IPN ---
DATE: 12/13/2016 SUBJECTIVE: The patient was seen and examined at the bedside today morning. The patient is afebrile, hemodynamically stable. The patient was dialyzed yesterday according to schedule. He tolerated the hemodialysis procedure well. REVIEW OF SYSTEMS: The patient denies any fevers, chills, rigors, headaches, nausea, vomiting, chest pain, shortness of breath. He denies any pain abdomen. His main concern is that he is too weak to walk at this time. Rest of review of systems is negative. OBJECTIVE: VITAL SIGNS: Temperature is 97.3 degrees Fahrenheit, blood pressure is 119/60, pulse is 81, respiratory rate of 18, saturating 95% on nasal cannula at two liters. INTAKE AND OUTPUT: Urine output is not recorded. Ultrafiltration with hemodialysis was 1.5 liters. Weight in the bed scale is 84.5 kg. PHYSICAL EXAMINATION: GENERAL: The patient is awake, alert, and oriented times three, lying in bed, no apparent distress. HEAD/NECK: Extraocular muscles intact. Pupils equal, round, and reactive to light. Mucous membranes are moist. Neck is supple. There is no jugular venous distention (JVD). CARDIOVASCULAR: S1, S2. Regular rate. No murmur, rub, or gallop. RESPIRATORY: Chest is clear to auscultation bilaterally. Bilateral equal air entry. No rales or rhonchi at this time. ABDOMEN: Soft, obese. Positive bowel sounds. Nontender. No ascites. No organomegaly. MUSCULOSKELETAL: The patient has sutures on the right big toe and second toe amputation site, and left big toe amputation site. No drainage, and wounds are clean at this time. 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 Power is 5/5 in bilateral upper extremities. PSYCHIATRIC: Normal mood and affect. LABORATORY DATA: CBC showed a WBC 12.2, hemoglobin 9.5, platelets are 216. BMP showed sodium 134, potassium 4.7, chloride 96, bicarbonate 27, BUN 31, creatinine 3.6. Calcium 8.6, magnesium 2.4. Albumin is 2.7. CURRENT INPATIENT MEDICATIONS: The patient's medications are all reviewed by me. There is no change in the medications today as compared with yesterday. ASSESSMENT: An 81-year-old male with past medical history of end-stage renal disease on hemodialysis every Thursday, Thursday, Thursday, coronary artery disease, diastolic congestive heart failure, peripheral vascular disease, chronic obstructive pulmonary disease (condition on discharge), insulin-dependent diabetic, admitted this time because of healthcare-associated pneumonia and shortness of breath along with COPD. PLAN: 1. End-stage renal disease: The patient's regular dialysis days are Thursday, Thursday, and Thursday. He was dialyzed according to his regimen yesterday. No urgent need of hemodialysis today. 2. Healthcare-associated pneumonia: Continue ceftaroline and doxycycline. He is symptomatically significantly better. 3. COPD exacerbation: The patient is already on intravenous (IV) antibiotics. He is on Solu-Medrol for three days, and he is getting nebulizations as well. His wheezing and rhonchi are significantly better today. 4. Anemia in end-stage renal disease: Hemoglobin is 9.5. It is optimal. The patient is on Aranesp 100 mcg IV with hemodialysis.
[2016-12-13] MEDS: ATORVASTATIN 20 MG TAB PO SCH (23:23)
[2016-12-13] MEDS: LEVEMIR (INSULIN DETEMIR) 1 UNITS/0.01ML SC SCH (23:23)
[2016-12-14 00:37] VITALS: BP 119/56
[2016-12-14] MEDS: DOXYCYCLINE HYCLATE 100 MG in D5W MINI-BAG PLUS 100 ML IV SCH ×2 (02:26→13:15)
[2016-12-14] MEDS: CEFTAROLINE FOSAMIL 300 MG in D5W 50 ML IV SCH ×2 (03:54→17:14)
[2016-12-14 04:28] LABS: BASO % 0.2 % (0.0-1.0); EOS % 0.2 % (0.0-3.0); LARGE UNSTAINED CELL # 0.1 K/mm3 (0.0-0.4); LARGE UNSTAINED CELL % 0.6 % (0.0-4.0); LYMPH # 0.3 K/mm3 (1.5-4.5); MEAN CORPUSCULAR HEMOGLOBIN 31.3 pg (27.0-33.0); MEAN CORPUSCULAR HGB CONC 31.3 g/dl (32.0-36.5); MEAN CORPUSCULAR VOLUME 100.3 fl (80.0-96.0); MONO # 0.8 K/mm3 (0.0-0.8); MONO % 4.9 % (0.0-5.0); NEUTROPHILS # 14.1 K/mm3 (1.8-7.7); NEUTROPHILS % 92.2 % (36.0-66.0); PLATELET COUNT, AUTOMATED 234 k/mm3 (150-450); RED CELL DISTRIBUTION WIDTH 15.5 % (11.5-14.5); WHITE BLOOD COUNT 15.3 K/mm3 (4.0-10.0)
[2016-12-14 04:35] LABS: ALBUMIN 2.8 GM/DL (3.2-5.2); CREATININE FOR GFR 5.52 MG/DL (0.70-1.30); GLOMERULAR FILTRATION RATE 10.6 (>35); MAGNESIUM LEVEL 2.7 MG/DL (1.8-2.4); PHOSPHORUS LEVEL 3.5 MG/DL (2.5-4.9)
[2016-12-14 04:40] LABS: POTASSIUM SERUM 5.3 MEQ/L (3.5-5.1)
[2016-12-14] MEDS: HEPARIN SOD (PORCINE) 5000 UNITS/ML VIAL SC SCH ×3 (06:35→22:01)
[2016-12-14 07:56] VITALS: BP 148/70
[2016-12-14] MEDS: CALCIUM ACETATE 667 MG GELCAP PO SCH ×4 (08:43→17:15)
[2016-12-14] MEDS: predniSONE 5 MG TAB PO SCH (08:43)
[2016-12-14] MEDS: ASPIRIN 81 MG CHEW TABLET PO SCH (08:43)
[2016-12-14] MEDS: HumaLOG INSULIN (NovoLOG) PER UNIT SC SCH ×5 (08:44→22:02)
[2016-12-14 12:00] VITALS: BP 114/59
[2016-12-14] MEDS: MULTIVITAMINS/MINERALS THERAP 1 TAB PO SCH ×2 (12:00→13:13)
[2016-12-14] MEDS: PANTOPRAZOLE 40MG TAB (PROTONIX) PO SCH ×2 (12:00→13:13)
[2016-12-14] MEDS: FEBUXOSTAT 40 MG TABLET (ULORIC) PO SCH ×2 (12:00→13:12)
[2016-12-14] MEDS: CLOPIDOGREL 75 MG TAB PO SCH ×2 (12:00→13:13)
[2016-12-14] MEDS: MIRALAX *UNIT DOSE* 17GM PACKET PO SCH ×2 (12:00→13:14)
[2016-12-14] MEDS: GABAPENTIN 300 MG CAP PO SCH ×2 (13:14→22:01)
[2016-12-14 16:00] VITALS: BP 157/70
--- NOTE | 2016-12-14 16:45 | IPNPDOC ---
Subjective Date Seen The patient was seen on 12/14/16. Subjective Chief Complaint/HPI The patient is a 81-year-old male admitted with a reason for visit of Fluid Overload, Pneumonia. Events since last encounter Mr. Rodriguez is a little more alert today. The nurses have noticed and are pleased with the improvement as well. I confirmed his dialysis is a Thursday schedule and we believe he will receive it tomorrow even though it's a holiday. Constitutional: Reports: Lethargy (this is still present intermittently but improved), Denies: Fever Skin: Reports: Bruising Pulmonary: Reports: Cough (he's starting to cough up some sputum) Gastrointestinal: Reports: Nausea Objective Physical Examination General Exam: Positive: Alert, No Acute Distress Eye Exam: Negative: Sclera icteric ENT Exam: Positive: Atraumatic Neck Exam: Positive: Supple, Negative: Lymphadenopathy Chest Exam: Positive: Rales (noted at the bases bilaterally. This may be just from dependency.) Heart Exam: Positive: Rate Normal Abdomen Exam: Positive: Normal bowel sounds, Negative: Tenderness Assessment /Plan Problems (1) Healthcare associated bacterial pneumonia Status: Acute Discussed With: Nurse Problem Specific Plan: Monitor Clinically Problem Text: He is currently on ceftaroline and doxycycline. He seems to be making some slow but steady improvement. I am not 100% sure that he does have a true pneumonia, but I do believe we should treat it based on his recent history (2) ESRD (end stage renal disease) on dialysis Status: Chronic Discussed With: Behavioral Health Care Manager Problem Text: Continue dialysis (likely Thursday schedule) (3) Diabetes Status: Chronic Problem Specific Plan: Repeat Tests Problem Text: We will continue his home regimen of 10 units of basal insulin and use the corrective insulin sliding scale. Will monitor. (4) Anemia in chronic kidney disease Status: Chronic Problem Text: Hb is stable/slightly improved at this time. He is receiving Aranesp with dialysis. Continue current plan. Monitor. Plan/VTE VTE Prophylaxis Ordered?: Yes (heparin) VS, I&O, 24H, Fishbone Vital Signs/I&O Vital Signs Date Time Temp Pulse Resp B/P (MAP) Pulse Ox O2 Delivery O2 Flow Rate FiO2 12/14/16 16:00 96.7 85 20 157/70 (99) 95 Nasal Cannula 3.0 I&O- Last 24 Hours up to 6 AM 12/14/16 05:59 Intake Total 690 ml Balance 690 ml Laboratory Data 24H LABS Laboratory Tests 2 12/14/16 03:57: White Blood Count 15.3H, Red Blood Count 3.11L, Hemoglobin 9.7L, Hematocrit 31.2L, Mean Corpuscular Volume 100.3H, Mean Corpuscular Hemoglobin 31.3, Mean Corpuscular Hemoglobin Concent 31.3L, Red Cell Distribution Width 15.5H, Platelet Count 234, Neutrophils (%) (Auto) 92.2H, Lymphocytes (%) (Auto) 2.0L, Monocytes (%) (Auto) 4.9, Eosinophils (%) (Auto) 0.2, Basophils (%) (Auto) 0.2, Neutrophils # (Auto) 14.1H, Lymphocytes # (Auto) 0.3L, Monocytes # (Auto) 0.8, Eosinophils # (Auto) 0.0, Basophils # (Auto) 0.0, Large Unclassified Cells % 0.6 , Large Unclassified Cells # 0.1, Blood Urea Nitrogen 60#H, Creatinine 5.52#H, Sodium Level 132L, Potassium Level 5.3H, Chloride Level 94L, Carbon Dioxide Level 27, Anion Gap 11, Glomerular Filtration Rate 10.6L, Calcium Level 9.0, Phosphorus Level 3.5, Magnesium Level 2.7H, Albumin 2.8L CBC/BMP Laboratory Tests 12/14/16 03:57 Red Blood Count 3.11 L, Mean Corpuscular Volume 100.3 H, Mean Corpuscular Hemoglobin 31.3, Mean Corpuscular Hemoglobin Concent 31.3 L, Red Cell Distribution Width 15.5 H, Neutrophils (%) (Auto) 92.2 H, Lymphocytes (%) (Auto ) 2.0 L, Monocytes (%) (Auto) 4.9, Eosinophils (%) (Auto) 0.2, Basophils (%) ( Auto) 0.2, Neutrophils # (Auto) 14.1 H, Lymphocytes # (Auto) 0.3 L, Monocytes # (Auto) 0.8, Eosinophils # (Auto) 0.0, Basophils # (Auto) 0.0, Anion Gap 11 Microbiology Microbiology 12/10/16 Blood Culture - Preliminary, Resulted No Growth after 72 hours. All specime... 12/10/16 Blood Culture - Preliminary, Resulted No Growth after 72 hours. All specime... Madhav Ingram MD Dec 14, 2016 16:45
--- NOTE | 2016-12-14 18:53 | IPN ---
DATE: 12/14/2016 SUBJECTIVE: The patient was seen and examined at the bedside today morning. The patient reports that he is having cough; otherwise, patient is afebrile, hemodynamically stable. REVIEW OF SYSTEMS: The patient denies any fevers, chills, rigors, headaches, nausea, vomiting. He does report some cough and shortness of breath. He denies any pain abdomen or constipation. The patient also reports weakness and inability to walk. Rest of review of systems is negative. OBJECTIVE: VITAL SIGNS: Temperature is 97.6 degrees Fahrenheit, blood pressure is 157/70, pulse is 85, respiratory rate of 20, saturating 95% on room air. PHYSICAL EXAMINATION: GENERAL: Patient is awake, alert, and oriented times two, lying in bed in no apparent distress. HEAD/NECK: Extraocular muscles intact. Pupils equal, round, and reactive to light. Mucous membranes moist. Neck is supple. There is no jugular venous distention (JVD). CARDIOVASCULAR: S1, S2. Regular rate. No murmur, rub, or gallop. RESPIRATORY: Decreased breath sounds at the bases with positive crepitations at the bases on deep inspiration. ABDOMEN: Soft, obese. Positive bowel sounds. Nontender. No ascites. No organomegaly. MUSCULOSKELETAL: The patient has sutures on the right big toe and second toe amputation site. He also has sutures on the left big toe amputation site as well. 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 Power is 5/5 in bilateral upper extremities. PSYCHIATRIC: Normal mood and affect. LABORATORY DATA: CBC showed a WBC 15.3, hemoglobin 9.7, platelets are 234. BMP shows sodium 132, potassium 5.3, chloride 94, bicarbonate 27, BUN 60, creatinine 5.5, calcium nine, phosphorus 3.5, magnesium 2.7. Albumin is 2.8. CURRENT INPATIENT MEDICATIONS: The patient's medications are all reviewed by me. He continues to be on intravenous (IV) antibiotics ceftaroline as well as doxycycline. His IV steroids have been stopped, and he is currently on prednisone 5 mg by mouth daily. ASSESSMENT: An 81-year-old male with past medical history of end-stage renal disease on hemodialysis every Thursday, Thursday, Thursday, coronary artery disease, diastolic congestive heart failure, peripheral vascular disease, chronic obstructive pulmonary disease (COPD), insulin-dependent diabetic, admitted this time because of healthcare-associated pneumonia and shortness of breath, along with COPD exacerbation. PLAN: 1. End-stage renal disease: The patient's regular dialysis days are Thursday, Thursday, Thursday. No urgent need of hemodialysis today. Next hemodialysis session will be done tomorrow morning. 2. Healthcare-associated pneumonia: Continue ceftaroline and doxycycline as per primary team. The patient is fever free at this time. 3. Chronic obstructive pulmonary disease (COPD): The patient is already on antibiotics. The patient got three days of Solu-Medrol. Continue nebulizations at this time. 4. Anemia in end-stage renal disease: The patient's hemoglobin is 9.7. It is slightly suboptimal. Continue current dose of Aranesp 100 mcg IV with hemodialysis.
[2016-12-14 20:00] VITALS: BP 158/98
[2016-12-14] MEDS: ATORVASTATIN 20 MG TAB PO SCH (22:01)
[2016-12-14] MEDS: guaiFENesin ER 600 MG TAB PO SCH (22:01)
[2016-12-14] MEDS: LEVEMIR (INSULIN DETEMIR) 1 UNITS/0.01ML SC SCH (22:02)
[2016-12-14 23:59] VITALS: BP 95/54
[2016-12-15] VITALS (26 sets, daily range): BP systolic 68–126; BP diastolic 41–60
[2016-12-15] MEDS ORDERED: HYDROCORTISONE 100 MG/2 ML VIAL (J1720) IV SCH
[2016-12-15] MEDS: DOXYCYCLINE HYCLATE 100 MG in D5W MINI-BAG PLUS 100 ML IV SCH ×2 (03:00→15:41)
[2016-12-15] MEDS: CEFTAROLINE FOSAMIL 300 MG in D5W 50 ML IV SCH (04:01)
[2016-12-15] MEDS: HEPARIN SOD (PORCINE) 5000 UNITS/ML VIAL SC SCH ×3 (05:50→21:52)
[2016-12-15 06:11] LABS: ADD MANUAL DIFFER YES; DIFF SLIDE NUMBER 26; MEAN CORPUSCULAR HEMOGLOBIN 31.6 pg (27.0-33.0); MEAN CORPUSCULAR HGB CONC 31.4 g/dl (32.0-36.5); MEAN CORPUSCULAR VOLUME 100.7 fl (80.0-96.0); PLATELET COUNT, AUTOMATED 213 k/mm3 (150-450); RED CELL DISTRIBUTION WIDTH 15.8 % (11.5-14.5)
[2016-12-15 06:16] LABS: WHITE BLOOD COUNT 35.6 K/mm3 (4.0-10.0)
[2016-12-15 06:22] LABS: ALBUMIN 2.5 GM/DL (3.2-5.2); CALCIUM LEVEL 8.5 MG/DL (8.8-10.2); CREATININE FOR GFR 7.26 MG/DL (0.70-1.30); GLOMERULAR FILTRATION RATE 7.7 (>35); MAGNESIUM LEVEL 2.4 MG/DL (1.8-2.4); PHOSPHORUS LEVEL 3.6 MG/DL (2.5-4.9)
[2016-12-15 06:30] LABS: POTASSIUM SERUM 6.4 MEQ/L (3.5-5.1)
[2016-12-15 07:00] LABS: BANDS 14 % (< 11); NUCLEATED RED BLOOD CELL 2 % (0-0)
[2016-12-15 07:01] LABS: MICROCYTOSIS 1+; PLATELET CLUMPS SMALL AMT
[2016-12-15 07:02] LABS: DOHLE BODIES 1+; TOXIC GRANULATION 1+; TOXIC VACUOLATION 1+
[2016-12-15 07:03] LABS: HYPOCHROMASIA 1+
[2016-12-15] MEDS: CALCIUM ACETATE 667 MG GELCAP PO SCH ×3 (07:30→16:42)
[2016-12-15] MEDS: HumaLOG INSULIN (NovoLOG) PER UNIT SC SCH ×4 (07:30→21:00)
--- NOTE | 2016-12-15 08:38 | IPNPDOC ---
Subjective Date Seen The patient was seen on 12/15/16. Subjective Chief Complaint/HPI The patient is a 81-year-old male admitted with a reason for visit of Fluid Overload, Pneumonia. Events since last encounter Pt sleeping and not responsive. General: Reports: ROS Unobtainable Objective Physical Examination General Exam: Positive: No Acute Distress ENT Exam: Positive: Mucous membr. moist/pink Neck Exam: Negative: Lymphadenopathy Chest Exam: Positive: Rhonchi (noted in the bilateral posterior lung scott), Diminished, Negative: Wheezing Heart Exam: Positive: Rate Normal Abdomen Exam: Positive: Normal bowel sounds, Negative: Tenderness Extremity Exam: Negative: Edema Assessment /Plan Problems (1) Healthcare associated bacterial pneumonia Status: Acute Discussed With: Nurse Problem Specific Plan: Monitor Clinically Problem Text: 12/15 - On Ceftaroline and Doxy. WBC up today to 35.6 (from 15.3 yesterday). He is on prednisone and had been on Solumedrol that was d/c'ed a couple days ago. Blood cx pending. Afebrile. Discuss with attending. 12/14 - He was started on ceftriaxone and doxycycline. I reviewed his micro reports and don't see that he has ever grown pseudomonas anywhere. Will continue his current regimen. (2) ESRD (end stage renal disease) on dialysis Status: Chronic Discussed With: Rubber Stamp Assembler Problem Text: 12/15 - Creat 7.26 today. Nephrology following. He is scheduled for dialysis today (Dialysis schedule M/W/). 12/14 - His labs actually look pretty good today, but he had dialysis yesterday. Nephrology has him on a MWF dialysis schedule I believe. Appreciate their continued assistance. (3) Diabetes Status: Chronic Problem Specific Plan: Repeat Tests Problem Text: We will continue his home regimen of 10 units of basal insulin and use the corrective insulin sliding scale. Will monitor. (4) Anemia in chronic kidney disease Status: Chronic Problem Text: His Hb is stable at this time. He is receiving Aranesp with dialysis. Continue current plan. Monitor. Plan/VTE VTE Prophylaxis Ordered?: Yes (heparin) VS, I&O, 24H, Fishbone Vital Signs/I&O Vital Signs Date Time Temp Pulse Resp B/P (MAP) Pulse Ox O2 Delivery O2 Flow Rate FiO2 12/15/16 04:24 89 122/58 (79) Nasal Cannula 3.0 12/15/16 04:00 97.3 20 91 I&O- Last 24 Hours up to 6 AM 12/15/16 06:00 Intake Total 590 ml Output Total 0 ml Balance 590 ml Laboratory Data 24H LABS Laboratory Tests 2 12/15/16 05:22: Neutrophils 69, Band Neutrophils 14H, Lymphocytes (Manual) 9L, Monocytes (Manual ) 5, Metamyelocytes 3H, Nucleated Red Blood Cells 2H, Toxic Granulation 1+, Toxic Vacuolation 1+, Dohle Bodies 1+, Platelet Estimate NORMAL, Clumped Platelets SMALL AMT, Hypochromasia 1+, Microcytosis 1+, Blood Urea Nitrogen 92#H , Creatinine 7.26H, Sodium Level 132L, Potassium Level 6.4*H, Chloride Level 95L , Carbon Dioxide Level 26, Anion Gap 11, Glomerular Filtration Rate 7.7L, Calcium Level 8.5L, Phosphorus Level 3.6, Magnesium Level 2.4, Albumin 2.5L CBC/BMP Laboratory Tests 12/15/16 05:22 Red Blood Count 2.89 L, Mean Corpuscular Volume 100.7 H, Mean Corpuscular Hemoglobin 31.6, Mean Corpuscular Hemoglobin Concent 31.4 L, Red Cell Distribution Width 15.8 H, Anion Gap 11 Microbiology Microbiology 12/10/16 Blood Culture - Preliminary, Resulted No Growth after 72 hours. All specime... 12/10/16 Blood Culture - Preliminary, Resulted No Growth after 72 hours. All specime... Attending Note Attending Note patient returns from dialysis with hr of 150+ ECG suggests A flutter. Dr. Caitlyn Bass contacted and suggested 250 NS bolus with second to follow if he remains hypotensive and tachycardic. Will start loading dose of Dig. attempted to contact Proxy but only able to leave message on her phone asking her to call. He has significantly lower bp this am before dialysis and markedly elevated wbc. blood cultures x2 ordered but only one done due to access difficulties. In fact, need to use his dialysis cath to administer the fluid bolus. Prognosis is grave if HR and bp don't respond. He rescinded his DNR on admission and he is not able at this time to address this question due to decreased alertness. Mango Tao Dec 15, 2016 08:38 Darrian Bee MD Dec 15, 2016 13:46
[2016-12-15] MEDS: guaiFENesin ER 600 MG TAB PO SCH ×2 (09:00→20:55)
[2016-12-15] MEDS: ASPIRIN 81 MG CHEW TABLET PO SCH (09:00)
[2016-12-15] MEDS: predniSONE 5 MG TAB PO SCH (09:00)
[2016-12-15 10:37] LABS: ADD MANUAL DIFFER YES; MEAN CORPUSCULAR HEMOGLOBIN 31.7 pg (27.0-33.0); MEAN CORPUSCULAR HGB CONC 32.2 g/dl (32.0-36.5); MEAN CORPUSCULAR VOLUME 98.5 fl (80.0-96.0); PLATELET COUNT, AUTOMATED 218 k/mm3 (150-450); RED CELL DISTRIBUTION WIDTH 15.6 % (11.5-14.5); WHITE BLOOD COUNT 29.1 K/mm3 (4.0-10.0)
[2016-12-15 11:12] LABS: BANDS 7 % (< 11)
[2016-12-15 11:15] LABS: ANISOCYTOSIS 1+; DOHLE BODIES 1+
[2016-12-15 11:16] LABS: TOXIC GRANULATION 1+
[2016-12-15] MEDS: MIRALAX *UNIT DOSE* 17GM PACKET PO SCH (12:00)
[2016-12-15] MEDS: CLOPIDOGREL 75 MG TAB PO SCH (12:00)
[2016-12-15] MEDS: GABAPENTIN 300 MG CAP PO SCH ×2 (12:00→20:55)
[2016-12-15] MEDS: MULTIVITAMINS/MINERALS THERAP 1 TAB PO SCH (12:00)
[2016-12-15] MEDS: PANTOPRAZOLE 40MG TAB (PROTONIX) PO SCH (12:00)
[2016-12-15] MEDS: FEBUXOSTAT 40 MG TABLET (ULORIC) PO SCH (12:00)
[2016-12-15] MEDS ORDERED: SODIUM CHLORIDE 0.9% 1000 ML IV ONE ×2 (13:15→14:00)
[2016-12-15] MEDS ORDERED: DIGOXIN INJ 0.5 MG/2 ML AMP (J1160) IV STA ×2 (13:48→15:41)
--- NOTE | 2016-12-15 14:07 | REP ---
Clinical: Tachycardia, cough and leukocytosis. Comparison: 12/10/2016. Findings: Evaluation is limited by portable technique, underpenetration and poor inspiratory effort. Diffuse chronic changes are appreciated with suspected superimposed vascular congestion and a double-lumen central venous catheter is identified with tip in the SVC. A subtle new right upper lobe infiltrate is identified. No definite effusion. No obvious pneumothorax. Skeletal structures are stable. Impression: 1. Findings suggest pulmonary vascular congestion. 2. New moderate right upper lobe consolidation. Signed by Ramesh Mc MD 12/15/2016 01:59 P
[2016-12-15] MEDS ORDERED: NS 500 ML IV ONE (14:30)
[2016-12-15] MEDS ORDERED: NOREPINEPHRINE 4 MG/4 ML AMP As Ordered ONE (14:32)
[2016-12-15] MEDS ORDERED: HEPARIN 1,000 UNITS/ML 10ML VIAL (FOR RADIOLOGY& DIALYSIS ONLY) IV ONE (14:45)
[2016-12-15] MEDS ORDERED: AMIODARONE HCL 150 MG in APPROPRIATE DILUENT 1 EA IV STA (14:57)
[2016-12-15] MEDS ORDERED: NOREPINEPHRINE BITARTRATE 8 MG in D5W 500 ML IV SCH (15:00)
[2016-12-15 15:11] LABS: ABG BASE EXCESS -1.9 (-2.0-2.0); ABG HCO3 23.2 MEQ/L (22.0-26.0); ABG PARTIAL PRESSURE CO2 41.2 mmHg (35.0-45.0); ABG PARTIAL PRESSURE O2 60.1 mmHg (75.0-100.0); ABG STANDARD HCO3 22.7 MEQ/L (22.0-26.0); ABG TOTAL CO2 24.5 MEQ/L (23.0-31.0); ABG pH (ARTERIAL) 7.369 UNITS (7.350-7.450)
[2016-12-15 15:19] LABS: CALCIUM LEVEL 7.8 MG/DL (8.8-10.2); CREATININE FOR GFR 3.85 MG/DL (0.70-1.30); GLOMERULAR FILTRATION RATE 16.1 (>35); MAGNESIUM LEVEL 2.2 MG/DL (1.8-2.4); POTASSIUM SERUM 4.1 MEQ/L (3.5-5.1)
--- NOTE | 2016-12-15 15:42 | CCN ---
DATE OF SERVICE: 12/15/2016 I was called to the intensive care unit to evaluate this 81-year-old male with shock admitted from the extended care facility with complaints of shortness of breath and weakness. He was found to have an abnormal x-ray, treated with antibiotics, and continued to receive dialysis for his chronic renal failure. Today, postdialysis, his blood pressure was quite low, fluids did not help, and his heart rate increased substantially. The patient is moved to the intensive care unit at this time. There is a past medical history in the electronic health record of chronic renal failure on dialysis, coronary artery disease post stent placement, congestive heart failure, obstructive lung disease, diabetes mellitus, atherosclerotic peripheral vascular disease, and recent pneumonia. At bedside, this is hospital day #5. His temperature is 98.4, pulse rate 160, respirations 25, blood pressure of 64/40, oxygen saturation 93% on 3 liters of oxygen via nasal cannula. He is obtunded. Gregg coma scale is 6. Oral mucosa is pink. His pupils are midplane and reactive. Heart sounds are irregularly irregular. There is a right subclavian dialysis catheter in place. The site appears clean. Breath sounds are coarse rhonchi bilaterally. Abdomen is soft with ecchymoses from heparin injections. There are some bowel sounds in the right lower quadrant. Extremities are cool. Pulses are difficult to appreciate. They are obtainable with a Doppler. There are amputated toes. The site appears clean, mildly indurated. Diagnostic studies reviewed. His sodium is 132, potassium 6.4, chloride 95, CO2 26, BUN 92, creatinine 7.2, glucose 156. Repeat electrolytes are pending at this moment. His white cell count is up to 29.1, hemoglobin 9.7, hematocrit 30.1, platelet count 218,000. Differential white cell count shows 80% polymorphonuclear cells and toxic granulation. Blood cultures were negative times two. Chest x-ray shows a new right upper lobe infiltrate. Telemetry monitoring shows atrial fibrillation. The primary problem requiring critical attention is severe sepsis with shock. Will initiate Levophed for a mean arterial pressure of 60 and check a serum lactate. Right upper lobe infiltrate. Will change to a carbapenem and obtain a sputum culture. Chronic steroid use. The patient has been on chronic low-dose steroids in light of the hypotension. Will check a cortisol level and begin stress doses of hydrocortisone. Coronary artery disease. The patient is on aspirin and Plavix. 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 Will check an electrocardiogram. He has been given digoxin and obtaining good rate control with it. Deep venous thrombosis (DVT) prophylaxis being addressed with heparin every 8 hours. Ulcer prophylaxis being addressed with Protonix. Glycemic control is fair. He is having fingerstick blood sugars obtained and coverage. I have reviewed the case with the attending physician at bedside. The patient's condition is critical. Prognosis is guarded to poor. 77 minutes was spent in provision of bedside critical care and coordination, exclusive of procedure time. MARIPOSA
[2016-12-15] MEDS ORDERED: HYDROCORTISONE 100 MG/2 ML VIAL (J1720) IV ONE (16:00)
[2016-12-15] MEDS: IMIPENEM/CILASTATIN 250 MG in D5W MINI-BAG PLUS 100 ML IV SCH (16:57)
[2016-12-15] MEDS ORDERED: NS 1,000 ML IV SCH (17:15)
[2016-12-15] MEDS: MORPHINE 2 MG/ML 1ML SYRINGE IV PRN ×2 (17:31→22:52)
[2016-12-15] MEDS ORDERED: DIGOXIN INJ 0.5 MG/2 ML AMP (J1160) IV ONE (18:00)
[2016-12-15] MEDS: ATORVASTATIN 20 MG TAB PO SCH (20:54)
--- NOTE | 2016-12-15 20:59 | ECGEPIP ---
Stationary ECG Study [facility] Test Date: 2016-12-15 Pat Name: EVE GANN Department: Room: K4577-76 Gender: M Pay Clerk: : 1935 Requested By: Darrain Byers Order Number: [id number] Reading MD: Sean Ghotra Measurements Intervals [place] Rate: 150 P: GA: 0 QRS: 12 QRSD: 91 T: 62 QT: 246 QTc: 389 Interpretive Statements Atrial flutter with 2:1 A:V conduction Nonspecific ST-T wave abnormalities Compared to prior tracing of 12/10/2016, atrial flutter and repolarization abnormalities are new Electronically Signed On 12-15-2016 20:58:32 EDT by Sean Ghotra
--- NOTE | 2016-12-15 21:01 | ECGEPIP ---
Stationary ECG Study [facility] Test Date: 2016-12-15 Pat Name: EVE GANN Department: Room: I5384-48 Gender: M High Pressure Cleaner: : 1935 Requested By: Nils Peralta [facility] Order Number: [id number] Reading MD: Sean Ghotra Measurements Intervals [place] Rate: 141 P: MT: 0 QRS: 1 QRSD: 92 T: 120 QT: 266 QTc: 408 Interpretive Statements Atrial flutter/fibrillation with rapid ventricular response Nonspecific ST-T wave abnormalities Compared to prior tracing of earlier this date, heart rate is slightly slower and there is now evidence of atrial fibrillation as well as flutter Electronically Signed On 12-15-2016 21:01:10 EDT by Sean Ghotra
[2016-12-15] MEDS: LEVEMIR (INSULIN DETEMIR) 1 UNITS/0.01ML SC SCH (21:52)
[2016-12-15] MEDS: HYDROCORTISONE 100 MG/2 ML VIAL (J1720) IV SCH (23:54)
[2016-12-16] VITALS (10 sets, daily range): BP systolic 109–136; BP diastolic 55–66
[2016-12-16] MEDS: MORPHINE 2 MG/ML 1ML SYRINGE IV PRN ×2 (02:15→10:40)
[2016-12-16] MEDS: DOXYCYCLINE HYCLATE 100 MG in D5W MINI-BAG PLUS 100 ML IV SCH ×2 (02:16→14:25)
[2016-12-16] MEDS ORDERED: NOREPINEPHRINE BITARTRATE 8 MG in D5W 500 ML IV SCH (03:00)
[2016-12-16] MEDS: HEPARIN SOD (PORCINE) 5000 UNITS/ML VIAL SC SCH ×3 (05:25→21:11)
[2016-12-16] MEDS: IMIPENEM/CILASTATIN 250 MG in D5W MINI-BAG PLUS 100 ML IV SCH ×2 (05:25→17:22)
[2016-12-16 05:55] LABS: ADD MANUAL DIFFER YES; MEAN CORPUSCULAR HEMOGLOBIN 31.4 pg (27.0-33.0); MEAN CORPUSCULAR HGB CONC 31.6 g/dl (32.0-36.5); MEAN CORPUSCULAR VOLUME 99.3 fl (80.0-96.0); PLATELET COUNT, AUTOMATED 186 k/mm3 (150-450); RED CELL DISTRIBUTION WIDTH 16.1 % (11.5-14.5); WHITE BLOOD COUNT 26.9 K/mm3 (4.0-10.0)
[2016-12-16 06:35] LABS: ALBUMIN 2.1 GM/DL (3.2-5.2); ALBUMIN/GLOBULIN RATIO 0.66 (1.00-1.93); BILIRUBIN,TOTAL 0.3 MG/DL (0.2-1.0); CALCIUM LEVEL 7.7 MG/DL (8.8-10.2); CREATININE FOR GFR 5.04 MG/DL (0.70-1.30); GLOMERULAR FILTRATION RATE 11.8 (>35); MAGNESIUM LEVEL 2.5 MG/DL (1.8-2.4); PHOSPHORUS LEVEL 4.5 MG/DL (2.5-4.9); TOTAL PROTEIN 5.3 GM/DL (6.4-8.2)
[2016-12-16 06:41] LABS: BANDS 2 % (< 11)
[2016-12-16 06:42] LABS: ANISOCYTOSIS 1+; POTASSIUM SERUM 5.3 MEQ/L (3.5-5.1)
[2016-12-16] MEDS: CALCIUM ACETATE 667 MG GELCAP PO SCH ×3 (07:30→17:22)
--- NOTE | 2016-12-16 07:38 | IPNPDOC ---
Subjective Date Seen The patient was seen on 12/16/16. Subjective Chief Complaint/HPI The patient is a 81-year-old male admitted with a reason for visit of Fluid Overload, Pneumonia. Events since last encounter Pt more responsive today. He opens eyes to voice but otherwise does not answer questions. General: Reports: ROS Unobtainable Objective Physical Examination General Exam: Positive: No Acute Distress ENT Exam: Positive: Mucous membr. moist/pink Neck Exam: Negative: Lymphadenopathy Chest Exam: Positive: Rhonchi (noted in the bilateral posterior lung scott), Diminished, Negative: Wheezing Heart Exam: Positive: Rate Normal Abdomen Exam: Positive: Normal bowel sounds, Negative: Tenderness Extremity Exam: Negative: Edema Assessment /Plan Problems (1) Septic shock Status: Acute Problem Specific Plan: Consult Specialist, Monitor Clinically, Repeat Labs Problem Text: 12/16 - Pt was transferred to the ICU yesterday after found to be tachycardic and hypotensive after dialysis. Pt was found to be in A Fib. He was given IVF boluses and started on loading dose of Dig. Pt did convert to SR. Dr Peralta was consulted. Levophed was considered but not needed. Pt is being treated for pneumonia. He had been on ceftaroline and doxy. The ceftaroline was d/c'ed and he was changed to imipenem. Pt had been a DNR but rescinded this upon this admission. (2) Atrial fibrillation Status: Acute Problem Specific Plan: Monitor Clinically, Repeat Labs Problem Text: 12/16 - See above. Pt converted to SR. (3) Healthcare associated bacterial pneumonia Status: Acute Discussed With: Nurse Problem Specific Plan: Monitor Clinically Problem Text: 12/16 - See above. Now on Imipenem and doxy. WBC 26.9 today. 12/15 - On Ceftaroline and Doxy. WBC up today to 35.6 (from 15.3 yesterday). He is on prednisone and had been on Solumedrol that was d/c'ed a couple days ago. Blood cx pending. Afebrile. Discuss with attending. 12/14 - He was started on ceftriaxone and doxycycline. I reviewed his micro reports and don't see that he has ever grown pseudomonas anywhere. Will continue his current regimen. (4) ESRD (end stage renal disease) on dialysis Status: Chronic Discussed With: Skein Dyer Problem Text: 12/16 - Creat 5.04 today. Nephrology following. 12/15 - Creat 7.26 today. Nephrology following. He is scheduled for dialysis today (Dialysis schedule M/W/F). 12/14 - His labs actually look pretty good today, but he had dialysis yesterday. Nephrology has him on a MWF dialysis schedule I believe. Appreciate their continued assistance. (5) Diabetes Status: Chronic Problem Specific Plan: Repeat Tests Problem Text: We will continue his home regimen of 10 units of basal insulin and use the corrective insulin sliding scale. Will monitor. (6) Anemia in chronic kidney disease Status: Chronic Problem Text: 12/16 - Hgb is down today to 8.4. He had received IVF. Monitor. His Hb is stable at this time. He is receiving Aranesp with dialysis. Continue current plan. Monitor. Plan/VTE VTE Prophylaxis Ordered?: Yes (heparin) Plan Family Medicine Attending Note: I saw and examined Mr. Rodriguze, discussed with SARA Dow. Agree with their note as documented. Mr. Rodriguez behaved himself today, and by that I mean stayed in sinus rhythm. The real test of this may be tomorrow when he has dialysis again. 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) VS, I&O, 24H, Fishbone Vital Signs/I&O Vital Signs Date Time Temp Pulse Resp B/P (MAP) Pulse Ox O2 Delivery O2 Flow Rate FiO2 12/16/16 05:00 84 20 125/57 (79) 95 Nasal Cannula 3.0 12/16/16 04:00 97.1 I&O- Last 24 Hours up to 6 AM 12/16/16 06:00 Intake Total 850 ml Output Total 1000 ml Balance -150 ml Laboratory Data 24H LABS Laboratory Tests 2 12/15/16 09:15: Neutrophils 80H, Band Neutrophils 7, Lymphocytes (Manual) 3L, Monocytes (Manual ) 4, Metamyelocytes 5H, Myelocytes 1H, Toxic Granulation 1+, Dohle Bodies 1+, Platelet Estimate NORMAL, Anisocytosis 1+, Macrocytosis 1+ 12/15/16 14:40: Blood Gas Bicarbonate Standard 22.7, Arterial Blood pH 7.369, Arterial Blood Partial Pressure CO2 41.2, Arterial Blood Partial Pressure O2 60.1L, Arterial Blood Total CO2 24.5, Arterial Blood HCO3 23.2, Arterial Blood Base Excess -1.9 , Arterial Blood Oxygen Saturation 89.1L 12/15/16 14:51: Anion Gap 12, Glomerular Filtration Rate 16.1L, Blood Urea Nitrogen 40#H, Creatinine 3.85H, Sodium Level 138, Potassium Level 4.1#, Chloride Level 101, Carbon Dioxide Level 25, Calcium Level 7.8L, Magnesium Level 2.2, Cortisol Baseline 31.4H 12/15/16 16:50: Lactic Acid Level 1.0 12/16/16 05:25: Neutrophils 93H, Band Neutrophils 2, Lymphocytes (Manual) 2L, Monocytes (Manual ) 2, Myelocytes 1H, Platelet Estimate NORMAL, Basophilic Stippling 1+, Anisocytosis 1+, Macrocytosis 1+, Anion Gap 10, Glomerular Filtration Rate 11.8L , Blood Urea Nitrogen 61#H, Creatinine 5.04H, Sodium Level 136, Potassium Level 5.3H, Chloride Level 101, Carbon Dioxide Level 25, Calcium Level 7.7L, Phosphorus Level 4.5#, Aspartate Amino Transf (AST/SGOT) 13L, Alanine Aminotransferase (ALT/SGPT) 13, Lactate Dehydrogenase 221, Total Creatine Kinase 30L, Alkaline Phosphatase 73, Total Bilirubin 0.3, Triglycerides Level 258H, Cholesterol Level 129, Total Protein 5.3L, Albumin 2.1L, Magnesium Level 2.5H, Albumin/Globulin Ratio 0.66L CBC/BMP Laboratory Tests 12/15/16 09:15 Red Blood Count 3.06 L, Mean Corpuscular Volume 98.5 H, Mean Corpuscular Hemoglobin 31.7, Mean Corpuscular Hemoglobin Concent 32.2, Red Cell Distribution Width 15.6 H 12/15/16 14:51 Calcium Level 7.8 L 12/16/16 05:25 Red Blood Count 2.66 L, Mean Corpuscular Volume 99.3 H, Mean Corpuscular Hemoglobin 31.4, Mean Corpuscular Hemoglobin Concent 31.6 L, Red Cell Distribution Width 16.1 H, Calcium Level 7.7 L, Phosphorus Level 4.5 #, Aspartate Amino Transf (AST/SGOT) 13 L, Alanine Aminotransferase (ALT/SGPT) 13, Lactate Dehydrogenase 221, Total Creatine Kinase 30 L, Alkaline Phosphatase 73, Total Bilirubin 0.3, Triglycerides Level 258 H, Cholesterol Level 129, Total Protein 5.3 L, Albumin 2.1 L Microbiology Microbiology 12/15/16 Blood Culture, Received Pending 12/15/16 Blood Culture, Received Pending 12/10/16 Blood Culture - Final, Complete NO GROWTH AFTER 5 DAYS 12/10/16 Blood Culture - Final, Complete NO GROWTH AFTER 5 DAYS Mango Tao Dec 16, 2016 07:38 Madhav Ingram MD Dec 17, 2016 22:44
--- NOTE | 2016-12-16 07:41 | IPN ---
DATE: 12/15/2016 SUBJECTIVE: The patient is seen twice today. He was first seen on hemodialysis this morning. He was noted to be very lethargic, moaning, with cough. His blood pressure at the time was 90s over 40s without tachycardia. I instructed the dialysis nurse to ultrafiltrate him 1 kg or less despite it being 72 hours since his last hemodialysis session due to concern of borderline blood pressure. After his hemodialysis session, the patient went into atrial flutter with heart rate in the 140s to 150s and hypotension. He was given intravenous (IV) fluids and two doses of digoxin and subsequently transferred to the intensive care unit. He converted back to normal sinus rhythm with improvement in his hemodynamics. REVIEW OF SYSTEMS: Unable to obtain secondary to clinical condition. PHYSICAL EXAMINATION: VITAL SIGNS: Most recent vitals afebrile, temperature 97.6, pulse 95, respiratory rate 22, blood pressure 116/59, saturating 95% on two liters nasal cannula. Patient received a total of one liter normal saline today. He did have 1 kg ultrafiltrated with hemodialysis in the morning. His weight in the bed scale today is 86 kg. GENERAL: The patient is lethargic, obtunded, only opens eyes to verbal and tactile stimulus. HEAD/NECK: Pupils are reactive to light. He has a right internal jugular (IJ) PermaCath. Neck veins are not prominent, but patient is lying supine. CARDIOVASCULAR: Irregularly irregular rhythm and rate. Palpable radial pulse. Lower extremities are cool to touch. RESPIRATORY: Anterior auscultation only, scattered rhonchi. On nasal cannula. ABDOMEN: Soft, obese. 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 Extremities are cool with mottling. There is no edema. NEUROLOGIC: Obtunded, lethargic, opens eyes to verbal and tactile stimulus. LABORATORY DATA: White count 29, hemoglobin 9.7, platelets 218. 7% bands. Sodium 138, potassium post dialysis 4.1, pre-dialysis 6.4, bicarbonate 25, lactic acid negative 1.0. Cortisol 31. ABG: PH 7.36, pCO2 41, pO2 60. MICROBIOLOGY: Blood cultures drawn today and pending. IMAGING: Chest x-ray 12/15/2016, new moderate right upper lobe consolidation and pulmonary vascular congestion. INPATIENT MEDICATIONS: Reviewed by myself. Patient started on stress-dose steroids, hydrocortisone 50 mg intravenous (IV) every eight hours. He was started on imipenem 250 mg IV every 12 hours. He is ordered for Levophed drip. He received digoxin 0.25 mg times three doses. He also received a total of one liter normal saline. He has multiple oral medications that were held today due to his decreased level of consciousness. ASSESSMENT AND PLAN: 1. New onset afib/aflutter with RVR and hypotension. The patient was given three doses of digoxin 0.25 mg and he is now again in sinus rhythm with improved hemodynamics. He did not require levophed. He is transferred to the ICU. 2. New right upper lobe infiltrate with leukocytosis. His lactic is negative. He had repeat cultures drawn which are pending. His antibiotics were also adjusted. He continues on doxycycline 100 mg IV every 12. His ceftaroline was stopped and he is now on Primaxin. He is also receiving stress-dose steroids. His arterial blood gas (ABG) did not show carbon dioxide (CO2) retention. PO2 was 60 on two liters nasal cannula. He is requiring intensive care unit (ICU) monitoring at this time. 3. End-stage renal disease on hemodialysis. Patient received his regularly scheduled treatment this morning. His pre-dialysis potassium was high. He only had 1 kg ultrafiltration due to his borderline blood pressure. He did receive one liter of fluid back again today. His chest x-ray does show pulmonary vascular congestion, and his pO2 on nasal cannula was 60. We will evaluate him again tomorrow for dialysis needs. 4. Chronic steroid use. The patient has been on prednisone 5 mg daily. He is now on stress-dose steroids. His cortisol level was appropriately elevated at 31 today. Plan of care is discussed with Dr. Bee. MARIPOSA
[2016-12-16] MEDS: HYDROCORTISONE 100 MG/2 ML VIAL (J1720) IV SCH (08:20)
[2016-12-16] MEDS: ASPIRIN 81 MG CHEW TABLET PO SCH (08:20)
[2016-12-16] MEDS: HumaLOG INSULIN (NovoLOG) PER UNIT SC SCH ×4 (08:20→21:00)
--- NOTE | 2016-12-16 08:23 | REP ---
Clinical: Infiltrate. Comparison: 12/15/2016. Findings: Double-lumen central venous catheter with tip in the SVC. Mediastinum and cardiac silhouette are stable. Moderate right upper lobe infiltrate is appreciated. Underlying chronic interstitial changes are noted and interstitial edema cannot be excluded. No obvious effusion. No pneumothorax. Skeletal structures are stable. Impression: Moderate right upper lobe infiltrate. Suspected interstitial edema. Signed by Ramesh Mc MD 12/16/2016 08:12 A
[2016-12-16] MEDS: guaiFENesin ER 600 MG TAB PO SCH ×2 (08:51→21:10)
[2016-12-16] MEDS: predniSONE 5 MG TAB PO SCH (08:52)
[2016-12-16] MEDS: MULTIVITAMINS/MINERALS THERAP 1 TAB PO SCH (12:24)
[2016-12-16] MEDS: CLOPIDOGREL 75 MG TAB PO SCH (12:24)
[2016-12-16] MEDS: FEBUXOSTAT 40 MG TABLET (ULORIC) PO SCH (12:24)
[2016-12-16] MEDS: GABAPENTIN 300 MG CAP PO SCH ×2 (12:25→21:09)
[2016-12-16] MEDS: PANTOPRAZOLE 40MG TAB (PROTONIX) PO SCH (12:25)
[2016-12-16] MEDS: MIRALAX *UNIT DOSE* 17GM PACKET PO SCH (12:25)
[2016-12-16] MEDS: SODIUM CHLORIDE 0.9% INJ 10 ML SYR IV SCH (17:23)
[2016-12-16] MEDS: ATORVASTATIN 20 MG TAB PO SCH (21:09)
[2016-12-16] MEDS: LEVEMIR (INSULIN DETEMIR) 1 UNITS/0.01ML SC SCH (21:18)
[2016-12-17] VITALS: BP 128/61
[2016-12-17] MEDS: DOXYCYCLINE HYCLATE 100 MG in D5W MINI-BAG PLUS 100 ML IV SCH (01:33)
[2016-12-17 04:00] VITALS: BP 137/63
[2016-12-17] MEDS: IMIPENEM/CILASTATIN 250 MG in D5W MINI-BAG PLUS 100 ML IV SCH ×2 (04:14→16:54)
[2016-12-17] MEDS: SODIUM CHLORIDE 0.9% INJ 10 ML SYR IV SCH ×2 (05:41→18:03)
[2016-12-17] MEDS: HEPARIN SOD (PORCINE) 5000 UNITS/ML VIAL SC SCH ×3 (05:42→22:06)
[2016-12-17 06:22] LABS: BASO % 0.2 % (0.0-1.0); EOS # 0.1 K/mm3 (0.0-0.50); EOS % 0.6 % (0.0-3.0); LARGE UNSTAINED CELL # 0.2 K/mm3 (0.0-0.4); LARGE UNSTAINED CELL % 0.9 % (0.0-4.0); LYMPH % 5.6 % (24.0-44.0); MEAN CORPUSCULAR HEMOGLOBIN 31.6 pg (27.0-33.0); MEAN CORPUSCULAR HGB CONC 31.8 g/dl (32.0-36.5); MEAN CORPUSCULAR VOLUME 99.4 fl (80.0-96.0); MONO # 0.5 K/mm3 (0.0-0.8); MONO % 2.9 % (0.0-5.0); NEUTROPHILS # 15.5 K/mm3 (1.8-7.7); NEUTROPHILS % 89.9 % (36.0-66.0); PLATELET COUNT, AUTOMATED 186 k/mm3 (150-450); RED CELL DISTRIBUTION WIDTH 15.8 % (11.5-14.5); WHITE BLOOD COUNT 17.2 K/mm3 (4.0-10.0)
[2016-12-17 06:45] LABS: ALBUMIN 2.1 GM/DL (3.2-5.2); ALBUMIN/GLOBULIN RATIO 0.53 (1.00-1.93); BILIRUBIN,TOTAL 0.4 MG/DL (0.2-1.0); CALCIUM LEVEL 8.9 MG/DL (8.8-10.2); CREATININE FOR GFR 6.62 MG/DL (0.70-1.30); GLOMERULAR FILTRATION RATE 8.6 (>35); PHOSPHORUS LEVEL 4.6 MG/DL (2.5-4.9); POTASSIUM SERUM 4.8 MEQ/L (3.5-5.1); TOTAL PROTEIN 6.1 GM/DL (6.4-8.2)
[2016-12-17] MEDS: HumaLOG INSULIN (NovoLOG) PER UNIT SC SCH ×4 (07:30→21:00)
--- NOTE | 2016-12-17 07:30 | IPN ---
DATE: 12/16/2016 SUBJECTIVE: The patient is seen this morning in the intensive care unit. Per nurse at the bedside, the patient tolerated his oral medications and a light breakfast this morning; however, he has been speaking very little. The patient was unable to say his name for me nor follow simple commands to disease management nurse with hands. He is awake, but not alert nor oriented at the time of my visit. REVIEW OF SYSTEMS: Unable to obtain secondary to clinical condition. The patient has been afebrile overnight and overnight his heart rate was from the 70s to the 90s and he maintained his mean arterial pressure as well. VITAL SIGNS: Afebrile. 98.0. Pulse 84. Respiratory rate 18. Blood pressure 126/59. Saturating 98% on 2 liters nasal cannula. INTAKE: His intake yesterday is not completely recorded. His weight on the bed scale today is 86.4 kg, which is modestly increased from yesterday. PHYSICAL EXAMINATION: The patient is awake, not alert, not oriented, in the intensive care unit in no acute distress. RN is at bedside. HEAD AND NECK: The patient tracks with eyes. Mucous membranes are moist. Right internal jugular (IJ) PermaCath was present. CARDIOVASCULAR: Regular rate, 2+ radial pulse. No significant peripheral edema. RESPIRATORY: Anterior auscultation only. Scattered rhonchus on the right. No wheeze or rales. ABDOMEN: Soft. Obese. The patient does not grimace with palpation. EXTREMITIES: Toe amputations on bilateral foot with sutures and some discoloration of the wound beds. LABS: White count 26, hemoglobin 8.4, and platelets 186. Sodium 136, potassium 5.3, bicarbonate 25, magnesium 2.5, corrected calcium 9.3. Blood cultures drawn yesterday with no growth for 24 hours. Chest x-ray 12/16/2016 with moderate right upper lobe infiltrate, possible interstitial edema. INPATIENT MEDICATIONS: Reviewed by myself. The patient never needed to be started on the Levophed drip. He continues on Primaxin 250 mg IV every 12 and doxycycline. His stress dose steroids were discontinued. The remainder of his medications are unchanged from prior. PLAN: 1. Right upper lobe infiltrate. His antibiotics have been changed to imipenem. He also remains on doxycycline. Yesterday when the patient was hypotensive in the setting of new onset atrial fibrillation, he had been started on stress dose steroids, those are discontinued now. He remains on 2 liters nasal cannula and chest x-ray today showed right upper lobe infiltrate and some mild interstitial edema. 2. Episode of new onset atrial fibrillation with rapid ventricular response and hypotension. The patient converted to normal sinus rhythm after receiving three doses of digoxin and his hemodynamics improved. He did receive one liter normal saline yesterday while he was hypotensive. 3. End stage renal disease on hemodialysis on Thursday, Thursday, Thursday maintenance schedule. The patient will be dialyzed tomorrow per his maintenance schedule. His pre-dialysis potassium has been running high. Yesterday, he only had 1 kg ultrafiltration due to borderline blood pressures. Subsequently, yesterday he received 1 liter of normal saline back during the course of the day. We will do gentle hemodialysis treatment with close attention to his hemodynamics. 4. Anemia of end stage renal disease. The patient's hemoglobin has drifted down to 8.4 today. He remains on Aranesp with dialysis. He may have some erythropoietin resistance due to active infection and inflammation at this time. No chronic need for packed red blood cells (PRBC) transfusion. Will continue to monitor hemoglobin and hematocrit.
--- NOTE | 2016-12-17 07:48 | IPNPDOC ---
Subjective Date Seen The patient was seen on 12/17/16. Subjective Chief Complaint/HPI The patient is a 81-year-old male admitted with a reason for visit of Fluid Overload, Pneumonia. Events since last encounter Pt more interactive today. Denies pain. Objective Physical Examination General Exam: Positive: Alert, No Acute Distress Eye Exam: Negative: Sclera icteric ENT Exam: Positive: Atraumatic Neck Exam: Positive: Supple, Negative: Lymphadenopathy Chest Exam: Positive: Rales (noted at the bases bilaterally. This may be just from dependency.) Heart Exam: Positive: Rate Normal Abdomen Exam: Positive: Normal bowel sounds, Negative: Tenderness Extremity Exam: Negative: Edema Assessment /Plan Problems (1) Septic shock Status: Acute Problem Specific Plan: Consult Specialist, Monitor Clinically, Repeat Labs Problem Text: 12/17 - Now on Imipenem and doxy. WBC trending down at 17.2 today. 12/16 - Pt was transferred to the ICU yesterday after found to be tachycardic and hypotensive after dialysis. Pt was found to be in A Fib. He was given IVF boluses and started on loading dose of Dig. Pt did convert to SR. Dr Peralta was consulted. Levophed was considered but not needed. Pt is being treated for pneumonia. He had been on ceftaroline and doxy. The ceftaroline was d/c' ed and he was changed to imipenem. Pt had been a DNR but rescinded this upon this admission. (2) Atrial fibrillation Status: Acute Problem Specific Plan: Monitor Clinically, Repeat Labs Problem Text: 12/16 - See above. Pt converted to SR. (3) Healthcare associated bacterial pneumonia Status: Acute Discussed With: Nurse Problem Specific Plan: Monitor Clinically Problem Text: 12/17 - Now on Imipenem and doxy. WBC trending down at 17.2 today. (4) ESRD (end stage renal disease) on dialysis Status: Chronic Discussed With: Soil And Plant Scientist Problem Text: 12/17 - Nephrology following. Creat 6.62 today. Dialysis is scheduled for M//. (5) Diabetes Status: Chronic Problem Specific Plan: Repeat Tests Problem Text: We will continue his home regimen of 10 units of basal insulin and use the corrective insulin sliding scale. Will monitor. (6) Anemia in chronic kidney disease Status: Chronic Problem Text: 12/17 - Hgb 8.5. Hb is stable/slightly improved at this time. He is receiving Aranesp with dialysis. Continue current plan. Monitor. Plan/VTE VTE Prophylaxis Ordered?: Yes (heparin) Plan Family Medicine Attending Note: I saw and examined Mr. Rodriguez, discussed with SARA oDw. Agree with their note as documented. 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, I&O, 24H, Fishbone Vital Signs/I&O Vital Signs Date Time Temp Pulse Resp B/P (MAP) Pulse Ox O2 Delivery O2 Flow Rate FiO2 12/17/16 04:00 98.0 75 18 137/63 (87) 89 Nasal Cannula 2.0 I&O- Last 24 Hours up to 6 AM 12/17/16 06:00 Intake Total 790 ml Output Total 0 ml Balance 790 ml Laboratory Data 24H LABS Laboratory Tests 2 12/16/16 17:17: Bedside Glucose (Misc Panel) 135H 12/16/16 21:12: Bedside Glucose (Misc Panel) 178H 12/17/16 05:39: White Blood Count 17.2H, Red Blood Count 2.70L, Hemoglobin 8.5L, Hematocrit 26.8L, Mean Corpuscular Volume 99.4H, Mean Corpuscular Hemoglobin 31.6, Mean Corpuscular Hemoglobin Concent 31.8L, Red Cell Distribution Width 15.8H, Platelet Count 186, Neutrophils (%) (Auto) 89.9H, Lymphocytes (%) (Auto) 5.6L, Monocytes (%) (Auto) 2.9, Eosinophils (%) (Auto) 0.6, Basophils (%) (Auto) 0.2, Neutrophils # (Auto) 15.5H, Lymphocytes # (Auto) 1.0L, Monocytes # (Auto) 0.5, Eosinophils # (Auto) 0.1, Basophils # (Auto) 0.0, Large Unclassified Cells % 0.9 , Large Unclassified Cells # 0.2, Anion Gap 11, Glomerular Filtration Rate 8.6L , Blood Urea Nitrogen 79H, Creatinine 6.62H, Sodium Level 134L, Potassium Level 4.8, Chloride Level 98, Carbon Dioxide Level 25, Calcium Level 8.9#, Phosphorus Level 4.6, Aspartate Amino Transf (AST/SGOT) 11L, Alanine Aminotransferase (ALT/ SGPT) 14, Lactate Dehydrogenase 212, Total Creatine Kinase 16L, Alkaline Phosphatase 78, Total Bilirubin 0.4, Triglycerides Level 254H, Cholesterol Level 116, Total Protein 6.1L, Albumin 2.1L, Magnesium Level 3.0H, Albumin/ Globulin Ratio 0.53L CBC/BMP Laboratory Tests 12/17/16 05:39 Red Blood Count 2.70 L, Mean Corpuscular Volume 99.4 H, Mean Corpuscular Hemoglobin 31.6, Mean Corpuscular Hemoglobin Concent 31.8 L, Red Cell Distribution Width 15.8 H, Neutrophils (%) (Auto) 89.9 H, Lymphocytes (%) (Auto ) 5.6 L, Monocytes (%) (Auto) 2.9, Eosinophils (%) (Auto) 0.6, Basophils (%) ( Auto) 0.2, Neutrophils # (Auto) 15.5 H, Lymphocytes # (Auto) 1.0 L, Monocytes # (Auto) 0.5, Eosinophils # (Auto) 0.1, Basophils # (Auto) 0.0, Calcium Level 8.9 #, Phosphorus Level 4.6, Aspartate Amino Transf (AST/SGOT) 11 L, Alanine Aminotransferase (ALT/SGPT) 14, Lactate Dehydrogenase 212, Total Creatine Kinase 16 L, Alkaline Phosphatase 78, Total Bilirubin 0.4, Triglycerides Level 254 H, Cholesterol Level 116, Total Protein 6.1 L, Albumin 2.1 L Microbiology Microbiology 12/15/16 Blood Culture - Preliminary, Resulted No growth after 24 hours . All specim... 12/15/16 Blood Culture - Preliminary, Resulted No growth after 24 hours . All specim... 12/10/16 Blood Culture - Final, Complete NO GROWTH AFTER 5 DAYS 12/10/16 Blood Culture - Final, Complete NO GROWTH AFTER 5 DAYS Mango Tao Dec 17, 2016 07:48 Madhav Ingram MD Dec 19, 2016 22:21
[2016-12-17] MEDS: predniSONE 5 MG TAB PO SCH (07:59)
[2016-12-17] MEDS: CALCIUM ACETATE 667 MG GELCAP PO SCH ×2 (07:59→12:17)
[2016-12-17 08:00] VITALS: BP 131/57
--- NOTE | 2016-12-17 08:00 | REP ---
Clinical: Infiltrate. Comparison: 12/16/2016. Findings: Right upper lobe infiltrate unchanged from prior examination. Remainder of lung scott demonstrate age-related interstitial changes and mild interstitial edema cannot be excluded. No pneumothorax. No definite effusion. Mediastinum and cardiac silhouette stable. Double-lumen central venous catheter with tip in the SVC. Impression: No significant change from prior examination. Right upper lobe infiltrate. Cannot exclude mild interstitial edema. Signed by Ramesh Mc MD 12/17/2016 07:52 A
--- NOTE | 2016-12-17 08:05 | REP ---
Procedure: PICC line insertion with Yadira The procedure was performed under the direct supervision of Dr. Posada. The risks and benefits of the procedure were explained and informed consent was obtained by the health care proxy. The right basilic vein was localized using ultrasound guidance. The skin was prepped and draped in a sterile fashion. 2% lidocaine was used as a local anesthetic. Using ultrasound guidance the basilic vein was cannulated and a 0.018 guidewire was inserted and advanced using fluoroscopic guidance. The catheter was able to be advanced beyond the level of the proximal subclavian because of the existing central venous catheter. The needle was removed and a 5.5 [place]an dilator and peel-away sheath was inserted over the guide wire. A 5.5 [place] dual lumen catheter was cut to length of 32 cm. The dilator was removed and the catheter was inserted over the guide wire with the tip ending in proximal subclavian vein. The peel-away sheath was removed and the catheter was flushed with heparinized saline as per Hospital protocol. The catheter was affixed to the skin and a sterile dressing was applied. The the patient tolerated the procedure well and there were no immediate complications. 1.5 minutes of fluoro time was utilized for this procedure. Reviewed by TUNG Christensen 12/16/2016 04:46 PSigned by Brad Posada MD 12/17/2016 07:57 A
[2016-12-17] MEDS ORDERED: HEPARIN 1,000 UNITS/ML 10ML VIAL (FOR RADIOLOGY& DIALYSIS ONLY) IV ONE (11:00)
[2016-12-17] MEDS ORDERED: HEPARIN 1,000 UNITS/ML 10ML VIAL (FOR RADIOLOGY& DIALYSIS ONLY) XX ONE (11:00)
[2016-12-17] MEDS ORDERED: DARBEPOETIN 300 MCG/0.6 ML *DIALYSIS* SYRINGE (J0882) IV ONE (11:00)
[2016-12-17 12:00] VITALS: BP 135/63
[2016-12-17] MEDS: MIRALAX *UNIT DOSE* 17GM PACKET PO SCH (12:17)
[2016-12-17] MEDS: MULTIVITAMINS/MINERALS THERAP 1 TAB PO SCH (12:17)
[2016-12-17] MEDS: guaiFENesin SYRUP 200 MG/10 ML UDC PO SCH ×3 (12:17→22:05)
[2016-12-17] MEDS: PANTOPRAZOLE 40MG TAB (PROTONIX) PO SCH (12:17)
[2016-12-17] MEDS: CLOPIDOGREL 75 MG TAB PO SCH (12:17)
[2016-12-17] MEDS: ASPIRIN 81 MG CHEW TABLET PO SCH (12:22)
[2016-12-17] MEDS: GABAPENTIN 300 MG CAP PO SCH (12:22)
[2016-12-17] MEDS: FEBUXOSTAT 40 MG TABLET (ULORIC) PO SCH (12:37)
[2016-12-17] MEDS: NORCO, ANEXSIA 5/325MG TABLET (HYDROcodone/ACETAMINOPHEN) PO PRN (14:47)
[2016-12-17] MEDS ORDERED: DOXYCYCLINE HYCLATE 100 MG in D5W MINI-BAG PLUS 100 ML IV SCH (15:00)
[2016-12-17 16:00] VITALS: BP 145/65
--- NOTE | 2016-12-17 17:48 | IPN ---
DATE: 12/17/2016 SUBJECTIVE: The patient is seen this morning at hemodialysis. He is more awake and alert today than he was yesterday. He is able to tell me his full name and he is also able to identify who I am. He is hemodynamically stable, tolerating hemodialysis. REVIEW OF SYSTEMS: Limited due to clinical condition. VITAL SIGNS: Temperature 97.3, pulse 76, respiratory rate 18, blood pressure 131/57, saturating at 92% on one liter nasal cannula. Intake and output: Dialysis today removed 1 kg ultrafiltration. Weight in the bed scale 85.7 kg, decreased from yesterday at 86.4 kg. Oral intake is recorded at 300 mL in the past 24 hours, total intake recorded as 850 mL. PHYSICAL EXAMINATION: GENERAL: Patient is awake, alert, oriented to self only, seen in the hemodialysis unit receiving a dialysis treatment in no acute distress, nurse is present at bedside. HEAD and NECK: The patient makes eye contact. His mucous membranes are moist. He has a right internal jugular (IJ) Permacath. CARDIOVASCULAR: Regular rate, 2+ radial pulse. Extremities warm without significant peripheral edema. RESPIRATORY: Anterior auscultation only. Patient unable to take deep breaths. Cough noted. Occasional rhonchus. ABDOMEN: Soft, obese, nontender. EXTREMITIES: Hairless lower extremities without edema. Bilateral toe amputations with sutures and discoloration of wound beds. Left lower extremity with discoloration. NEUROLOGIC: Awake and alert, oriented to person. The patient is able to tell me his name and he identifies who I am. He follows simple commands. He is not at his baseline mentation. LABORATORY DATA: White count improved at 17.2, hemoglobin 8.5, platelet 186, sodium 134, potassium 4.8, bicarbonate 25, corrected calcium 10.5, magnesium 3.0. Microbiology: Blood cultures drawn 12/15/2016, no growth for 48 hours. IMAGING: Chest x-ray today: Right upper lobe infiltrate, possible mild interstitial edema, no definite effusion. INPATIENT MEDICATIONS: Reviewed by myself. Patient is hypermagnesemic. His milk of magnesia is discontinued. His Neurontin dose is decreased by myself. He remains on doxycycline and imipenem. He was given 300 mcg of Aranesp with dialysis today. His PhosLo is also held by myself today. The remainder of his medications are unchanged from prior. PLAN: 1. End-stage renal disease on hemodialysis Thursday, Thursday, Thursday maintenance schedule. The patient continues on his schedule. He was dialyzed today, he had 1 kg ultrafiltration which he tolerated. 2. Right upper lobe infiltrate. The patient remains on doxycycline and imipenem per the primary team. He remains on 1-2 liters nasal cannula at this time. 3. Anemia of end-stage renal disease. Patient's hemoglobins are in the 8s. He received 300 mcg of Aranesp with dialysis at this time. He may have some erythropoietin (EPO) resistance due to active infection and inflammation. 4. Hypermagnesemia. Patient's milk of magnesia is held. 5. Altered mental status. The patient is not yet back at his baseline mentation. He is more alert today than he was yesterday. I have reduced his dose of gabapentin. 6. Mild hypercalcemia. Corrected calcium 10.5. I will hold his calcium acetate at this time. His phosphorous levels have been acceptable. He continues on monthly vitamin D. MTDD
[2016-12-17 20:00] VITALS: BP 114/55
[2016-12-17] MEDS: ATORVASTATIN 20 MG TAB PO SCH (22:05)
[2016-12-17] MEDS: LEVEMIR (INSULIN DETEMIR) 1 UNITS/0.01ML SC SCH (22:06)
[2016-12-18] VITALS: BP 132/74
[2016-12-18 04:00] VITALS: BP 149/67
[2016-12-18] MEDS: IMIPENEM/CILASTATIN 250 MG in D5W MINI-BAG PLUS 100 ML IV SCH ×2 (04:10→16:26)
[2016-12-18 05:45] LABS: ADD MANUAL DIFFER YES; MEAN CORPUSCULAR HEMOGLOBIN 31.1 pg (27.0-33.0); MEAN CORPUSCULAR HGB CONC 32.3 g/dl (32.0-36.5); MEAN CORPUSCULAR VOLUME 96.4 fl (80.0-96.0); PLATELET COUNT, AUTOMATED 181 k/mm3 (150-450); RED CELL DISTRIBUTION WIDTH 16.1 % (11.5-14.5)
[2016-12-18 05:50] LABS: ALBUMIN/GLOBULIN RATIO 0.5 (1.00-1.93); BILIRUBIN,TOTAL 0.5 MG/DL (0.2-1.0); CALCIUM LEVEL 8.5 MG/DL (8.8-10.2); CREATININE FOR GFR 4.67 MG/DL (0.70-1.30); GLOMERULAR FILTRATION RATE 12.9 (>35)
[2016-12-18 06:05] LABS: PHOSPHORUS LEVEL 2.8 MG/DL (2.5-4.9)
[2016-12-18] MEDS: HEPARIN SOD (PORCINE) 5000 UNITS/ML VIAL SC SCH ×3 (06:08→20:43)
[2016-12-18] MEDS: SODIUM CHLORIDE 0.9% INJ 10 ML SYR IV SCH ×2 (06:09→17:08)
[2016-12-18 06:25] LABS: ANISOCYTOSIS 1+; BANDS 2 % (< 11); EOSINOPHILS 1 % (0-5)
[2016-12-18] MEDS: HumaLOG INSULIN (NovoLOG) PER UNIT SC SCH ×4 (07:30→21:00)
--- NOTE | 2016-12-18 07:45 | IPNPDOC ---
Subjective Date Seen The patient was seen on 12/18/16. Subjective Chief Complaint/HPI The patient is a 81-year-old male admitted with a reason for visit of Fluid Overload, Pneumonia. Events since last encounter Pt more interactive today. He denies CP, SOB, Abd pain. Pulmonary: Denies: Dyspnea Cardiovascular: Denies: Chest Pain Gastrointestinal: Denies: Abdominal Pain Objective Physical Examination General Exam: Positive: No Acute Distress Eye Exam: Negative: Sclera icteric ENT Exam: Positive: Mucous membr. moist/pink Neck Exam: Negative: Lymphadenopathy Chest Exam: Positive: Rhonchi (noted in the bilateral posterior lung scott), Diminished, Negative: Wheezing Heart Exam: Positive: Rate Normal Abdomen Exam: Positive: Normal bowel sounds, Negative: Tenderness Extremity Exam: Negative: Edema Assessment /Plan Problems (1) Septic shock Status: Acute Problem Specific Plan: Consult Specialist, Monitor Clinically, Repeat Labs Problem Text: 12/18 - WBC trending down. 11.0 today. On IV Imipenem and Doxy. 12/17 - Now on Imipenem and doxy. WBC trending down at 17.2 today. 12/16 - Pt was transferred to the ICU yesterday after found to be tachycardic and hypotensive after dialysis. Pt was found to be in A Fib. He was given IVF boluses and started on loading dose of Dig. Pt did convert to SR. Dr Peralta was consulted. Levophed was considered but not needed. Pt is being treated for pneumonia. He had been on ceftaroline and doxy. The ceftaroline was d/c' ed and he was changed to imipenem. Pt had been a DNR but rescinded this upon this admission. (2) Atrial fibrillation Status: Acute Problem Specific Plan: Monitor Clinically, Repeat Labs Problem Text: 12/16 - See above. Pt converted to SR. (3) Healthcare associated bacterial pneumonia Status: Acute Discussed With: Nurse Problem Specific Plan: Monitor Clinically Problem Text: 12/18 - WBC trending down. 11.0 today. On IV Imipenem and Doxy. 12/17 - Now on Imipenem and doxy. WBC trending down at 17.2 today. 12/16 - Pt was transferred to the ICU yesterday after found to be tachycardic and hypotensive after dialysis. Pt was found to be in A Fib. He was given IVF boluses and started on loading dose of Dig. Pt did convert to SR. Dr Peralta was consulted. Levophed was considered but not needed. Pt is being treated for pneumonia. He had been on ceftaroline and doxy. The ceftaroline was d/c' ed and he was changed to imipenem. Pt had been a DNR but rescinded this upon this admission. He is currently on ceftaroline and doxycycline. He seems to be making some slow but steady improvement. I am not 100% sure that he does have a true pneumonia, but I do believe we should treat it based on his recent history (4) ESRD (end stage renal disease) on dialysis Status: Chronic Discussed With: Transcriptionist Problem Text: 12/18 - Nephrology following and pt has been undergoing dialysis. Creatinine 4.67 today. Continue dialysis (likely Thursday schedule) (5) Diabetes Status: Chronic Problem Specific Plan: Repeat Tests Problem Text: 12/18 - BS low. PO intake has been somewhat poor per nursing. Will D/C Levemir and continue with SSI. Monitor closely. We will continue his home regimen of 10 units of basal insulin and use the corrective insulin sliding scale. Will monitor. (6) Anemia in chronic kidney disease Status: Chronic Problem Text: 12/18 - Hgb stable at 8.6. Continue to monitor. Hb is stable/slightly improved at this time. He is receiving Aranesp with dialysis. Continue current plan. Monitor. Plan/VTE VTE Prophylaxis Ordered?: Yes (heparin) Plan Family Medicine Attending Note: I saw and examined Mr. Rodriguez, discussed with SARA Dow. Agree with their note as documented. I noticed that he still had sutures in his feet bilaterally where he had amputations done. I checked the records and it looks like this was done in mid November by Dr. Wooten. I contacted Dr. Wooten to find out whether he wanted the sutures in still, or whether we should remove them. He stated he would come and see the patient tomorrow and make the decision himself. (family therapist) VS, I&O, 24H, Fishbone Vital Signs/I&O Vital Signs Date Time Temp Pulse Resp B/P (MAP) Pulse Ox O2 Delivery O2 Flow Rate FiO2 12/18/16 04:00 97.3 79 20 149/67 (94) 88 Nasal Cannula 2.0 I&O- Last 24 Hours up to 6 AM 9/7/17 05:59 Intake Total 595 ml Output Total 1000 ml Balance -405 ml Laboratory Data 24H LABS Laboratory Tests 2 12/17/16 08:02: Bedside Glucose (Misc Panel) 113H 12/17/16 12:01: Bedside Glucose (Misc Panel) 101 12/17/16 17:54: Bedside Glucose (Misc Panel) 167H 12/17/16 21:57: Bedside Glucose (Misc Panel) 168H 12/18/16 05:09: Neutrophils 81H, Band Neutrophils 2, Lymphocytes (Manual) 12L, Monocytes (Manual ) 3, Eosinophils (Manual) 1, Myelocytes 1H, Platelet Estimate NORMAL, Anisocytosis 1+, Macrocytosis 1+, Anion Gap 12, Glomerular Filtration Rate 12.9L , Blood Urea Nitrogen 43H, Creatinine 4.67H, Sodium Level 138, Potassium Level 4.0, Chloride Level 99, Carbon Dioxide Level 27, Calcium Level 8.5L, Phosphorus Level 2.8#, Aspartate Amino Transf (AST/SGOT) 14L, Alanine Aminotransferase (ALT /SGPT) 16, Lactate Dehydrogenase 213, Total Creatine Kinase 12L, Alkaline Phosphatase 79, Total Bilirubin 0.5, Triglycerides Level 197H, Cholesterol Level 123, Total Protein 6.0L, Albumin 2.0L, Albumin/Globulin Ratio 0.50L 12/18/16 06:10: Bedside Glucose (Misc Panel) 69L 12/18/16 06:39: Bedside Glucose (Misc Panel) 64L CBC/BMP Laboratory Tests 12/18/16 05:09 Red Blood Count 2.77 L, Mean Corpuscular Volume 96.4 H, Mean Corpuscular Hemoglobin 31.1, Mean Corpuscular Hemoglobin Concent 32.3, Red Cell Distribution Width 16.1 H, Calcium Level 8.5 L, Phosphorus Level 2.8 #, Aspartate Amino Transf (AST/SGOT) 14 L, Alanine Aminotransferase (ALT/SGPT) 16, Lactate Dehydrogenase 213, Total Creatine Kinase 12 L, Alkaline Phosphatase 79, Total Bilirubin 0.5, Triglycerides Level 197 H, Cholesterol Level 123, Total Protein 6.0 L, Albumin 2.0 L Microbiology Microbiology 12/15/16 Blood Culture - Preliminary, Resulted No Growth after 48 hours. All Specime... 12/15/16 Blood Culture - Preliminary, Resulted No Growth after 48 hours. All Specime... 12/10/16 Blood Culture - Final, Complete NO GROWTH AFTER 5 DAYS 12/10/16 Blood Culture - Final, Complete NO GROWTH AFTER 5 DAYS Mango Tao Dec 18, 2016 07:45 Madhav Ingram MD Dec 19, 2016 23:28
[2016-12-18 08:00] VITALS: BP 129/59
[2016-12-18] MEDS: DOXYCYCLINE HYCLATE 100 MG in D5W MINI-BAG PLUS 100 ML IV SCH ×2 (08:13→20:41)
[2016-12-18] MEDS: guaiFENesin SYRUP 200 MG/10 ML UDC PO SCH ×3 (08:14→20:42)
[2016-12-18] MEDS: predniSONE 5 MG TAB PO SCH (08:14)
[2016-12-18] MEDS: ASPIRIN 81 MG CHEW TABLET PO SCH (08:14)
[2016-12-18] MEDS: GABAPENTIN 300 MG CAP PO SCH (08:14)
--- NOTE | 2016-12-18 08:22 | REP ---
PORTABLE CHEST X-RAY: Single view. HISTORY: New right upper lobe infiltrate. COMPARISON STUDY: December 17, 2016. FINDINGS: EKG monitoring electrodes overlie the chest. There is a right sided tunneled central venous catheter with its tip in the expected location of the superior vena cava. An infiltrate is again noted in the right upper lobe a little less consolidated or dense than on yesterday's radiograph. There is an area of discoid atelectasis in the left base on today's radiograph which is new. Heart is enlarged unchanged. IMPRESSION: New discoid atelectasis left base. Right upper lobe infiltrate again seen. Signed by Brad Posada MD 12/18/2016 08:26 A
[2016-12-18] MEDS: FEBUXOSTAT 40 MG TABLET (ULORIC) PO SCH (11:07)
[2016-12-18] MEDS: PANTOPRAZOLE 40MG TAB (PROTONIX) PO SCH (11:07)
[2016-12-18] MEDS: CLOPIDOGREL 75 MG TAB PO SCH (11:07)
[2016-12-18] MEDS: MIRALAX *UNIT DOSE* 17GM PACKET PO SCH (11:07)
[2016-12-18] MEDS: MULTIVITAMINS/MINERALS THERAP 1 TAB PO SCH (11:08)
[2016-12-18] MEDS: ACETAMINOPHEN TAB 650MG DOSE (2X325MG) PO PRN (11:08)
[2016-12-18 12:00] VITALS: BP 153/76
[2016-12-18 16:22] VITALS: BP 173/79
[2016-12-18] MEDS: ONDANSETRON 4MG/2ML VIAL (J2405) IV PRN (17:58)
[2016-12-18] MEDS: ATORVASTATIN 20 MG TAB PO SCH (20:41)
[2016-12-18 22:00] VITALS: BP 142/60
[2016-12-19] VITALS: BP 161/65
[2016-12-19 04:05] VITALS: BP 121/79
[2016-12-19 05:28] LABS: ADD MANUAL DIFFER YES; MEAN CORPUSCULAR HEMOGLOBIN 30.8 pg (27.0-33.0); MEAN CORPUSCULAR HGB CONC 30.7 g/dl (32.0-36.5); MEAN CORPUSCULAR VOLUME 100.5 fl (80.0-96.0); PLATELET COUNT, AUTOMATED 189 k/mm3 (150-450); RED CELL DISTRIBUTION WIDTH 16.1 % (11.5-14.5); WHITE BLOOD COUNT 13.3 K/mm3 (4.0-10.0)
[2016-12-19 05:37] LABS: ALBUMIN 2.2 GM/DL (3.2-5.2); ALBUMIN/GLOBULIN RATIO 0.5 (1.00-1.93); BILIRUBIN,TOTAL 0.6 MG/DL (0.2-1.0); CALCIUM LEVEL 8.9 MG/DL (8.8-10.2); CREATININE FOR GFR 5.98 MG/DL (0.70-1.30); GLOMERULAR FILTRATION RATE 9.7 (>35); MAGNESIUM LEVEL 2.8 MG/DL (1.8-2.4); PHOSPHORUS LEVEL 4.5 MG/DL (2.5-4.9); POTASSIUM SERUM 4.7 MEQ/L (3.5-5.1); TOTAL PROTEIN 6.6 GM/DL (6.4-8.2)
[2016-12-19] MEDS: SODIUM CHLORIDE 0.9% INJ 10 ML SYR IV SCH ×2 (06:00→18:00)
[2016-12-19] MEDS: IMIPENEM/CILASTATIN 250 MG in D5W MINI-BAG PLUS 100 ML IV SCH ×2 (06:28→16:32)
[2016-12-19 07:02] LABS: NUCLEATED RED BLOOD CELL 1 % (0-0)
[2016-12-19 07:03] LABS: ANISOCYTOSIS 1+; HYPOCHROMASIA 1+; MICROCYTOSIS 1+
[2016-12-19 07:04] LABS: DOHLE BODIES 1+; TOXIC GRANULATION 1+
[2016-12-19] MEDS: HEPARIN SOD (PORCINE) 5000 UNITS/ML VIAL SC SCH ×3 (07:16→21:39)
[2016-12-19] MEDS: HumaLOG INSULIN (NovoLOG) PER UNIT SC SCH ×4 (07:30→20:25)
[2016-12-19 08:00] VITALS: BP 132/63
[2016-12-19] MEDS: DOXYCYCLINE HYCLATE 100 MG in D5W MINI-BAG PLUS 100 ML IV SCH ×2 (08:27→20:19)
[2016-12-19] MEDS: GABAPENTIN 300 MG CAP PO SCH ×2 (08:28→08:36)
[2016-12-19] MEDS: predniSONE 5 MG TAB PO SCH ×2 (08:28→08:36)
[2016-12-19] MEDS: ASPIRIN 81 MG CHEW TABLET PO SCH ×2 (08:28→08:36)
[2016-12-19] MEDS: guaiFENesin SYRUP 200 MG/10 ML UDC PO SCH ×3 (08:37→20:19)
[2016-12-19] MEDS: MIRALAX *UNIT DOSE* 17GM PACKET PO SCH ×2 (09:00→20:24)
--- NOTE | 2016-12-19 11:11 | IPN ---
DATE: 12/18/2016 SUBJECTIVE: The patient is seen this morning at the bedside in the intensive care unit (ICU). He is more awake, alert today and interactive than he was yesterday. He identifies myself. He answers simple questions appropriately. He is still not back at his baseline mentation at this time. REVIEW OF SYSTEMS: Limited due to clinical condition, but negative for chest pain, palpitations, shortness of breath at rest. VITAL SIGNS: Afebrile. Temperature 97.7. Heart rate 70 to 80. Respiratory rate 18. Blood pressure 129/59. Saturating 88-94% on 2 liters nasal cannula. INTAKE AND OUTPUT: Hemodialysis yesterday removed 1 kg ultrafiltration. Weight on the bed scale today 90.5, which is increased from prior. Total recorded oral intake yesterday was 440 mL. PHYSICAL EXAMINATION: GENERAL: Awake, in bed in the ICU, in no acute distress. Appears fatigued and chronically ill. HEENT: Extraocular muscles are intact. Mucous membranes are dry. Neck is supple. Right internal jugular (IJ) PermaCath is in place. RESPIRATORY: Anterior auscultation only. Decreased at bases. CARDIAC: S1, S2. Regular rate. 2+ radial pulse. No significant peripheral edema. ABDOMEN: Soft. Obese. Does not grimace with palpation. EXTREMITIES: Sites of bilateral toe amputations with discoloration of tissues. LABS: White count 11, hemoglobin 8.6, and platelets 181. Sodium 138, potassium 4.0, corrected calcium 10.1, phosphorus 2.8, glucose 76. Microbiology: Blood cultures on 12/15/2016 no growth for 72 hours. IMAGING: Chest x-ray done today, 12/18/2016, new discoid atelectasis left base, right upper lobe infiltrate again seen. INPATIENT MEDICATIONS: Reviewed by myself. Patient remains on doxycycline and imipenem and reduced dose gabapentin. His insulin was adjusted by the primary team. The remainder of his medications are unchanged from prior. PLAN: 1. End stage renal disease on hemodialysis Thursday, Thursday, Thursday maintenance schedule. The patient will be dialyzed tomorrow, 12/19/2016. On his last two sessions, we have only removed 1 kg per session. Tomorrow, we will try to ultrafiltrate him 2 to 3 kg, depending upon his hemodynamics and how well he tolerates it. 2. Right upper lobe infiltrate. The patient remains on doxycycline and imipenem. His white count is down trending. Chest x-ray today also showed new left base atelectasis. His oxygen saturations on 2 liters nasal cannula vary from 88% to 94%. 3. Anemia of end stage renal disease. The patient continues on Aranesp. 4. Altered mental status. The patient's mentation has improved over the prior 48 hours. However, he is not yet back at his baseline mentation. 5. Mild hypercalcemia. The patient's calcium acetate remains on hold. Phosphorus levels remain acceptable.
[2016-12-19] MEDS ORDERED: HEPARIN 1,000 UNITS/ML 10ML VIAL (FOR RADIOLOGY& DIALYSIS ONLY) IV ONE (11:15)
[2016-12-19] MEDS ORDERED: HEPARIN 1,000 UNITS/ML 10ML VIAL (FOR RADIOLOGY& DIALYSIS ONLY) XX ONE (11:15)
[2016-12-19] MEDS ORDERED: BISACODYL 5 MG TAB PO ONE (12:00)
[2016-12-19 14:00] VITALS: BP 129/59
[2016-12-19] MEDS: CLOPIDOGREL 75 MG TAB PO SCH (14:16)
[2016-12-19] MEDS: FEBUXOSTAT 40 MG TABLET (ULORIC) PO SCH (14:16)
--- NOTE | 2016-12-19 14:22 | REP ---
CT Head without contrast HISTORY: Altered mental status COMPARISON: 10/17/16 Areas of decreased attenuation are present in the periventricular and subcortical white matter. This represents small-vessel ischemic disease. There is no intraparenchymal hemorrhage, acute infarct, mass or midline shift. The ventricular system and cortical sulci are dilated consistent with mild volume loss. There is no extra cerebral collection. There is no fracture. Mucosal thickening is present in the ethmoid sphenoid and left maxillary sinuses and middle ear cavities. The mastoid air cells are underdeveloped. IMPRESSION: 1. Small vessel ischemic disease. 2. Mild volume loss. Signed by Alin Luke MD 12/19/2016 02:13 P
[2016-12-19] MEDS: MULTIVITAMINS/MINERALS THERAP 1 TAB PO SCH (14:24)
[2016-12-19] MEDS: PANTOPRAZOLE 40MG TAB (PROTONIX) PO SCH (14:25)
--- NOTE | 2016-12-19 14:25 | IPN ---
DATE: 12/19/2016 SUBJECTIVE: The patient is seen this morning on hemodialysis. He is receiving his maintenance treatment. His mentation continues to be below baseline; however, he answers simple questions with short one to two word appropriate answers. He is able to tell me his name, identify who I am and tell me his daughter's name. REVIEW OF SYSTEMS: Limited due to clinical condition. VITAL SIGNS: Afebrile, 96.9. Pulse 87. Respiratory rate 20. Blood pressure 132/63. 94% on 3 liters nasal cannula. INTAKE: 24 hour oral intake yesterday recorded as 435 mL. IV total intake recorded at 600 mL. PHYSICAL EXAMINATION: Awake, not alert. Receiving hemodialysis in no acute distress. Appears fatigued and chronically ill. HEAD AND NECK: Dry tongue. Right internal jugular (IJ) PermaCath in place. The patient makes eye contact. RESPIRATORY: Anterior auscultation only. Occasional rhonchus. Breath sounds diminished at base. The patient does cooperate with exam and takes deep breaths when instructed. ABDOMEN: Soft. Obese. The patient does not grimace with palpation. EXTREMITIES: Bilateral toe amputations with discoloration of tissues. No significant peripheral edema in the lower extremities. NEUROLOGIC: The patient is awake. He is oriented to self. He follows very simple commands appropriately. He gives short one to word answers to simple questions. He cooperates with physical exam. He is not at his baseline mentation. LABS: White count 11.3, hemoglobin 9.7 and platelets 189. Sodium 135, potassium 4.7, bicarbonate 22, predialysis. Phosphorus 4.5. Magnesium 2.8. Microbiology: Blood culture on 12/15/2016 with no growth. IMAGING: Chest x-ray on 12/18/2016 with no discoid atelectasis left base, right upper lobe infiltrate again seen. INPATIENT MEDICATIONS: Reviewed by myself. The patient remains on doxycycline and imipenem. His remainder of medications are unchanged from prior. PLAN: 1. End stage renal disease on hemodialysis Thursday, Thursday and Thursday. Maintenance schedule. The patient is tolerating 1-2 kg ultrafiltration with hemodialysis at this time. His oral intake has been poor and he is not seen to have significant interdialytic gains. Respiratory-kilgore, he is stable on 2-2 liters nasal cannula. 2. Altered mental status. The patient's mentation has slowly improved since his acute hypotensive event which required transfer to the intensive care unit. He is not back at his baseline mentation. We will check a CT of the head. 3. Anemia of end stage renal disease. The patient continues on Aranesp. 4. Hypermagnesemia. All magnesium compounds are on hold. Plan of care is discussed today with Dr. Ingram.
--- NOTE | 2016-12-19 15:31 | IPNPDOC ---
Subjective Date Seen The patient was seen on 12/19/16. Subjective Chief Complaint/HPI The patient is a 81-year-old male admitted with a reason for visit of Fluid Overload, Pneumonia. Events since last encounter He is talking and answering a bit more today. Dr. Olmedo looked at his feet and decided to leave the sutures in for a bit longer. ENT: Denies: Head Aches Pulmonary: Denies: Cough Cardiovascular: Denies: Chest Pain, Palpitations Objective Physical Examination General Exam: Positive: No Acute Distress Eye Exam: Negative: Sclera icteric ENT Exam: Positive: Mucous membr. moist/pink Neck Exam: Negative: Lymphadenopathy Chest Exam: Positive: Rhonchi (noted in the bilateral posterior lung scott), Diminished, Negative: Wheezing Heart Exam: Positive: Rate Normal Abdomen Exam: Positive: Normal bowel sounds, Negative: Tenderness Extremity Exam: Negative: Edema Assessment /Plan Problems (1) Septic shock Status: Resolved Problem Specific Plan: Consult Specialist, Monitor Clinically, Repeat Labs Problem Text: 12/19 - His WBC bumped a little today, but clinically he is not worse. Continue current abx and monitor. 12/18 - WBC trending down. 11.0 today. On IV Imipenem and Doxy. 12/17 - Now on Imipenem and doxy. WBC trending down at 17.2 today. 12/16 - Pt was transferred to the ICU yesterday after found to be tachycardic and hypotensive after dialysis. Pt was found to be in A Fib. He was given IVF boluses and started on loading dose of Dig. Pt did convert to SR. Dr Peralta was consulted. Levophed was considered but not needed. Pt is being treated for pneumonia. He had been on ceftaroline and doxy. The ceftaroline was d/c' ed and he was changed to imipenem. Pt had been a DNR but rescinded this upon this admission. (2) Atrial fibrillation Status: Acute Problem Specific Plan: Monitor Clinically, Repeat Labs Problem Text: 12/16 - See above. Pt converted to SR. (3) Healthcare associated bacterial pneumonia Status: Acute Discussed With: Nurse Problem Specific Plan: Monitor Clinically Problem Text: 12/19 - WBC up a bit today. He is clinically stable. Monitor. 12/18 - WBC trending down. 11.0 today. On IV Imipenem and Doxy. 12/17 - Now on Imipenem and doxy. WBC trending down at 17.2 today. 12/16 - Pt was transferred to the ICU yesterday after found to be tachycardic and hypotensive after dialysis. Pt was found to be in A Fib. He was given IVF boluses and started on loading dose of Dig. Pt did convert to SR. Dr Peralta was consulted. Levophed was considered but not needed. Pt is being treated for pneumonia. He had been on ceftaroline and doxy. The ceftaroline was d/c' ed and he was changed to imipenem. Pt had been a DNR but rescinded this upon this admission. He is currently on ceftaroline and doxycycline. He seems to be making some slow but steady improvement. I am not 100% sure that he does have a true pneumonia, but I do believe we should treat it based on his recent history (4) ESRD (end stage renal disease) on dialysis Status: Chronic Discussed With: Manager [employer] Problem Text: 12/19 - His creatinine is up in the 5s today. He should get dialysis on his regular schedule and Nephro is following. 12/18 - Nephrology following and pt has been undergoing dialysis. Creatinine 4.67 today. Continue dialysis (likely Thursday schedule) (5) Diabetes Status: Chronic Problem Specific Plan: Repeat Tests Problem Text: 12/19 - BGL have been in a good range. Continue with just the SSI for now. 12/18 - BS low. PO intake has been somewhat poor per nursing. Will D/C Levemir and continue with SSI. Monitor closely. We will continue his home regimen of 10 units of basal insulin and use the corrective insulin sliding scale. Will monitor. (6) Anemia in chronic kidney disease Status: Chronic Problem Text: 12/19 - Hb up today, probably this dramatically in part from fluid shifts related to dialysis. Continue to monitor. 12/18 - Hgb stable at 8.6. Continue to monitor. Hb is stable/slightly improved at this time. He is receiving Aranesp with dialysis. Continue current plan. Monitor. Plan/VTE VTE Prophylaxis Ordered?: Yes (heparin) Plan Family Medicine Attending Note: I saw and examined Mr. Rodriguez, discussed with SARA Florence. Agree with their note as documented. [] (geotechnical field technician) VS, I&O, 24H, Fishbone Vital Signs/I&O Vital Signs Date Time Temp Pulse Resp B/P (MAP) Pulse Ox O2 Delivery O2 Flow Rate FiO2 12/19/16 14:00 97.6 96 20 129/59 (82) 88 Nasal Cannula 2.0 I&O- Last 24 Hours up to 6 AM 12/19/16 05:59 Intake Total 980 ml Output Total 0 ml Balance 980 ml Laboratory Data 24H LABS Laboratory Tests 2 12/18/16 16:56: Bedside Glucose (Misc Panel) 131H 12/18/16 23:05: Bedside Glucose (Misc Panel) 128H 12/19/16 05:03: Neutrophils 77H, Lymphocytes (Manual) 12L, Monocytes (Manual) 5, Metamyelocytes 2H, Myelocytes 4H, Nucleated Red Blood Cells 1H, Toxic Granulation 1+, Dohle Bodies 1+, Platelet Estimate NORMAL, Hypochromasia 1+, Anisocytosis 1+, Microcytosis 1+, Anion Gap 17H, Glomerular Filtration Rate 9.7L, Blood Urea Nitrogen 60H, Creatinine 5.98H, Sodium Level 135L, Potassium Level 4.7, Chloride Level 96L, Carbon Dioxide Level 22, Calcium Level 8.9, Phosphorus Level 4.5#, Aspartate Amino Transf (AST/SGOT) 11L, Alanine Aminotransferase (ALT /SGPT) 13, Lactate Dehydrogenase 240, Total Creatine Kinase 12L, Alkaline Phosphatase 90, Total Bilirubin 0.6, Triglycerides Level 200H, Cholesterol Level 129, Total Protein 6.6, Albumin 2.2L, Magnesium Level 2.8H, Albumin/ Globulin Ratio 0.50L 12/19/16 14:20: Bedside Glucose (Misc Panel) 113H CBC/BMP Laboratory Tests 12/19/16 05:03 Red Blood Count 3.15 L, Mean Corpuscular Volume 100.5 H, Mean Corpuscular Hemoglobin 30.8, Mean Corpuscular Hemoglobin Concent 30.7 L, Red Cell Distribution Width 16.1 H, Calcium Level 8.9, Phosphorus Level 4.5 #, Aspartate Amino Transf (AST/SGOT) 11 L, Alanine Aminotransferase (ALT/SGPT) 13, Lactate Dehydrogenase 240, Total Creatine Kinase 12 L, Alkaline Phosphatase 90, Total Bilirubin 0.6, Triglycerides Level 200 H, Cholesterol Level 129, Total Protein 6.6, Albumin 2.2 L Microbiology Microbiology 12/15/16 Blood Culture - Preliminary, Resulted No Growth after 72 hours. All specime... 12/15/16 Blood Culture - Preliminary, Resulted No Growth after 72 hours. All specime... 12/10/16 Blood Culture - Final, Complete NO GROWTH AFTER 5 DAYS 12/10/16 Blood Culture - Final, Complete NO GROWTH AFTER 5 DAYS Madhav Ingram MD Dec 19, 2016 15:31
[2016-12-19 16:00] VITALS: BP 131/66
[2016-12-19] MEDS ORDERED: NYSTATIN 100,000 UNITS/GM TOPICAL PWD 15 GM TOP PRN (17:45)
--- NOTE | 2016-12-19 19:00 | REPUSA ---
Clinical statement: Pain, swelling. Findings: Venous Doppler imaging of the upper extremity was performed. The right-sided PICC line cath eter is within the superior vena cava, extending to the subclavian vein into the axillary and basilic veins. The internal jugular vein compresses normally and demonstrates normal color Doppler flow. The re is echogenic material narrowing the lumen of the right subclavian vein , around the venous cathete r. The axillary and brachial veins compress normally and demonstrate normal color Doppler flow. Gisell l augmentation is seen. 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
[2016-12-19 20:00] VITALS: BP 140/75
[2016-12-19] MEDS: ATORVASTATIN 20 MG TAB PO SCH (20:19)
[2016-12-20] VITALS: BP 130/57
[2016-12-20 04:00] VITALS: BP 135/68
[2016-12-20] MEDS ORDERED: CEPACOL LOZENGE PO PRN (04:30)
[2016-12-20] MEDS: HEPARIN SOD (PORCINE) 5000 UNITS/ML VIAL SC SCH ×3 (05:08→21:44)
[2016-12-20] MEDS: SODIUM CHLORIDE 0.9% INJ 10 ML SYR IV SCH ×2 (05:09→17:50)
[2016-12-20] MEDS: IMIPENEM/CILASTATIN 250 MG in D5W MINI-BAG PLUS 100 ML IV SCH ×2 (05:10→17:19)
[2016-12-20 05:14] LABS: ALBUMIN 2.1 GM/DL (3.2-5.2); CALCIUM LEVEL 8.8 MG/DL (8.8-10.2); CREATININE FOR GFR 4.12 MG/DL (0.70-1.30); GLOMERULAR FILTRATION RATE 14.9 (>35); PHOSPHORUS LEVEL 4.8 MG/DL (2.5-4.9)
[2016-12-20 05:34] LABS: ADD MANUAL DIFFER YES; MEAN CORPUSCULAR HEMOGLOBIN 31.5 pg (27.0-33.0); MEAN CORPUSCULAR HGB CONC 31.6 g/dl (32.0-36.5); MEAN CORPUSCULAR VOLUME 99.8 fl (80.0-96.0); PLATELET COUNT, AUTOMATED 212 k/mm3 (150-450); RED CELL DISTRIBUTION WIDTH 16.3 % (11.5-14.5); WHITE BLOOD COUNT 11.8 K/mm3 (4.0-10.0)
[2016-12-20 05:39] LABS: POTASSIUM SERUM 4.4 MEQ/L (3.5-5.1)
[2016-12-20 07:12] LABS: ANISOCYTOSIS 1+; EOSINOPHILS 2 % (0-5); HYPOCHROMASIA 1+; NUCLEATED RED BLOOD CELL 2 % (0-0)
[2016-12-20] MEDS: HumaLOG INSULIN (NovoLOG) PER UNIT SC SCH ×4 (07:30→21:42)
[2016-12-20 08:00] VITALS: BP 139/65
[2016-12-20] MEDS: DOXYCYCLINE HYCLATE 100 MG in D5W MINI-BAG PLUS 100 ML IV SCH (08:58)
[2016-12-20] MEDS: predniSONE 5 MG TAB PO SCH ×2 (08:58→16:00)
[2016-12-20] MEDS: ASPIRIN 81 MG CHEW TABLET PO SCH ×2 (08:58→15:59)
[2016-12-20] MEDS: guaiFENesin SYRUP 200 MG/10 ML UDC PO SCH ×4 (08:58→21:42)
[2016-12-20] MEDS: GABAPENTIN 300 MG CAP PO SCH (08:58)
[2016-12-20] MEDS: MIRALAX *UNIT DOSE* 17GM PACKET PO SCH ×3 (08:58→21:42)
--- NOTE | 2016-12-20 11:25 | IPN ---
DATE: 12/20/2016 Fausto is seen in the intensive care unit (ICU). He is lethargic, barely responsive. Apparently he was discussing advanced directives with staff, and I had a phone call transportation planner last night by his nurse in ICU indicating that he had wanted to be do not resuscitate (DNR) status. Plan to talk with him and have him sign this today, but he is too lethargic. Nurse I spoke with last night thought that he was coherent and had capacity to make that verbal assertation. PHYSICAL EXAMINATION: Blood pressure 139/65, pulse 93, respiratory rate 16, 94% oxygen saturation, 99.8 degrees. General Appearance: He is sleeping, is hard to arouse, answers yes or no to questions, did indicate that he wanted a "living will" but I could not get across the idea of DNR. No jugular venous distention (JVD). Lungs: Decreased breath sounds. Heart: Regular rhythm. Abdomen: Soft, nontender. Genitourinary area is swollen and erythematous. Ischemic lower legs. LABORATORY: CBC is about the same. White count is 11.8, potassium is 4.4. IMPRESSION: 1. Advanced directives: Discussed with the nursing staff his verbal assertation yesterday was for DNR status, but I would like him to sign this and then we can enter the DNR order. 2. Septic shock. He is on IV and doxycycline. I do not think he needs the doxycycline anymore. It is unlikely he has an atypical pneumonitis. Blood cultures have all been negative and his chest x-rays have not been convincing for pneumonia. 3. End-stage renal disease. Per nephrology. 4. Diabetes. He was on sliding scale this morning. 5. Anemia of chronic disease. Hemoglobin and hematocrit is stable. He gets Aranesp with dialysis. 6. Peripheral arterial disease. Continue Plavix and aspirin 81 mg daily. 7. History of gout. Continue Uloric 40 mg daily. 8. Hyperlipidemia. Continue atorvastatin 20 mg daily. 9. History of systolic congestive heart failure. Volume status regulated by dialysis.
[2016-12-20 12:00] VITALS: BP 155/65
[2016-12-20] MEDS: MULTIVITAMINS/MINERALS THERAP 1 TAB PO SCH (12:00)
[2016-12-20] MEDS: PANTOPRAZOLE 40MG TAB (PROTONIX) PO SCH (12:00)
[2016-12-20] MEDS: CLOPIDOGREL 75 MG TAB PO SCH (12:00)
[2016-12-20] MEDS: FEBUXOSTAT 40 MG TABLET (ULORIC) PO SCH (12:00)
[2016-12-20 16:00] VITALS: BP 125/60
[2016-12-20] MEDS: NYSTATIN 100,000 UNITS/GM TOPICAL PWD 15 GM TOP SCH ×2 (17:20→21:44)
[2016-12-20] MEDS: ACETAMINOPHEN TAB 650MG DOSE (2X325MG) PO PRN ×2 (17:20→21:42)
[2016-12-20 20:00] VITALS: BP 111/53
--- NOTE | 2016-12-20 20:26 | IPN ---
DATE: 12/20/2016 I re-evaluated Nnamdi today. His hands are becoming mottled and cold, as are his feet. His mental status has deteriorated. He is not responding to verbal stimulation now. I called his healthcare proxy, who is his daughter, Faby, at [phone]. We discussed the situation. She gave verbal consent for do not resuscitate/do not intubate. I spoke with Mr. Rodriguez's nurse, who will call Faby to confirm the verbal do not resuscitate order. She understands his poor prognosis. Plans to come visit him from [place] tomorrow.
[2016-12-20] MEDS: ATORVASTATIN 20 MG TAB PO SCH (21:42)
[2016-12-21] VITALS: BP 91/46
[2016-12-21 04:00] VITALS: BP 130/59
[2016-12-21] MEDS: HEPARIN SOD (PORCINE) 5000 UNITS/ML VIAL SC SCH ×3 (05:10→21:19)
[2016-12-21] MEDS: IMIPENEM/CILASTATIN 250 MG in D5W MINI-BAG PLUS 100 ML IV SCH ×2 (05:11→17:14)
[2016-12-21] MEDS: SODIUM CHLORIDE 0.9% INJ 10 ML SYR IV SCH ×2 (06:22→17:15)
[2016-12-21 08:00] VITALS: BP 126/57
[2016-12-21] MEDS: HumaLOG INSULIN (NovoLOG) PER UNIT SC SCH ×4 (08:31→21:00)
[2016-12-21] MEDS: guaiFENesin SYRUP 200 MG/10 ML UDC PO SCH (08:32)
[2016-12-21] MEDS: MIRALAX *UNIT DOSE* 17GM PACKET PO SCH ×2 (08:32→21:19)
[2016-12-21] MEDS: predniSONE 5 MG TAB PO SCH ×2 (08:36→08:42)
[2016-12-21] MEDS: ASPIRIN 81 MG CHEW TABLET PO SCH (08:36)
[2016-12-21] MEDS: NYSTATIN 100,000 UNITS/GM TOPICAL PWD 15 GM TOP SCH ×2 (08:37→21:18)
--- NOTE | 2016-12-21 11:19 | IPN ---
DATE: 12/21/2016 Fausto is seen in ICU. Yesterday I had a discussion with his daughter, Faby, at [phone]. She confirmed DNR status. His condition is not much different than yesterday. He is not mentating well. He is only moaning to stimulation. He is not answering questions. His hands are not cold or mottled as they were yesterday, but otherwise I do not see any change. EXAMINATION: 126/57, pulse of 84, 99.1 degrees, 94% 02 saturation on nasal cannula. General appearance: He moans to physical and verbal stimulation. Lungs: Decreased breath sounds. Heart: Regular rhythm. Abdomen: Soft, nontender. Trace peripheral edema. LABS: We did not have any labs for today. IMPRESSION: Patient looks unstaged to me and I think at this point his prognosis is poor. I spoke to the daughter at length yesterday. My involvement with Mr. Rodriguez's care has essentially been rounding this weekend, I would like to prevail upon the application systems architect, who have a long relationship with him, to discuss end of life care plans with the family if they could do that. In my opinion, consideration should be given towards comfort measure status. I have ordered labs for tomorrow, but do not expect any significant improvement in his current clinical condition.
[2016-12-21 12:00] VITALS: BP 119/58
[2016-12-21] MEDS: CLOPIDOGREL 75 MG TAB PO SCH (12:12)
[2016-12-21] MEDS: MULTIVITAMINS/MINERALS THERAP 1 TAB PO SCH (12:12)
[2016-12-21] MEDS: PANTOPRAZOLE 40MG TAB (PROTONIX) PO SCH (12:12)
[2016-12-21] MEDS: FEBUXOSTAT 40 MG TABLET (ULORIC) PO SCH (12:12)
[2016-12-21] MEDS: NORCO, ANEXSIA 5/325MG TABLET (HYDROcodone/ACETAMINOPHEN) PO PRN (14:06)
--- NOTE | 2016-12-21 15:50 | IPN ---
DATE: 12/20/2016 SUBJECTIVE: The patient is seen this morning in the intensive care unit (ICU). He remains lethargic, barely responsive. With repeated verbal and tactile stimulus and leaning in close to his ear, he does arouse and give one-word answers to simple questions, including stating his name. Per nursing staff, he has been able to tolerate oral intake. When I come and see him, he does not look like he would be capable of taking much oral intake due to his mentation and lethargy. He is now DO NOT RESUSCITATE (DNR), DO NOT INTUBATE (DNI) after discussion between Dr. Friend and the patient's daughter. REVIEW OF SYSTEMS: Unable to obtain secondary to clinical condition. OBJECTIVE: VITAL SIGNS: Afebrile, temperature 97.6, pulse 78, respiratory rate 13, blood pressure 155/65, saturating 97% on 1-2 liters nasal cannula. INTAKE AND OUTPUT: Oral recorded intake 340 mL in the previous 24 hours. Hemodialysis yesterday removed 1800 mL. Weight in the bed scale today 91 kg. PHYSICAL EXAMINATION: GENERAL: The patient is lethargic, drowsy. With verbal and tactile stimulus, he opens his eyes, makes eye contact. He appears in no acute distress, looks fatigued and chronically ill. HEAD/NECK: Dry tongue. Right internal jugular (IJ) PermCath. The patient opens his left eye a lot more than he opens his right eye. RESPIRATORY: Anterior auscultation only. The patient does not cooperate with exam to take deep breaths. Diminished breath sounds at base. No tachypnea. CHEST: S1, S2. Distal extremities are mottled. Right upper extremity is swollen. ABDOMEN: Soft, obese. The patient does not grimace with palpation. EXTREMITIES: Mottling of the lower extremities. Bilateral toe amputations. Right upper extremity with swelling. NEUROLOGIC: The patient is lethargic. With verbal and tactile stimulus, he opens his eyes and make eye contact. He is very hard of hearing. He gives short, one-word answers to simple questions. He does not cooperate with physical exam. He is not at his baseline mentation. LABORATORY DATA: White count 11.8, hemoglobin 9.5, platelets 212. Sodium 136, potassium 4.4, phosphorus 4.8, correct calcium 10, glucose 134. MICROBIOLOGY: Blood cultures December 15 with no growth for five days. IMAGING: Vascular ultrasound right upper extremity with nonocclusive deep venous thrombosis (DVT) surrounding the peripherally inserted central catheter (PICC). INPATIENT MEDICATIONS: Reviewed by myself. The patient remains on Primaxin. His gabapentin was discontinued by me. He was started on Nystatin powder to the genitourinary () area. There are no other changes in his medications. PLAN: 1. Altered mental status: I do not see that the patient has received any opioids in at least the past four days. His last dose of hydrocodone was on 12/17. Last dose of morphine was on 12/16. His gabapentin was discontinued. He had a CT head without any acute findings. His mentation has not significantly improved over the past few days. 2. End-stage renal disease on hemodialysis Thursday, Thursday, Thursday. The patient has not been having much oral intake. His intravenous (IV) intake is also minimal. We would not aggressively ultrafiltrate him on hemodialysis. His oxygen requirements remain stable at this time. 3. Advance Directives: Patient is again DNR, DNI. I will reach out to his daughter, Faby, to update her regarding his current clinical condition and discuss end-of-life care with the family.
[2016-12-21 16:00] VITALS: BP 119/55
[2016-12-21 20:00] VITALS: BP 145/60
[2016-12-21] MEDS: ATORVASTATIN 20 MG TAB PO SCH (21:19)
[2016-12-22] VITALS (7 sets, daily range): BP systolic 128–164; BP diastolic 59–67
[2016-12-22 05:11] LABS: MEAN CORPUSCULAR HGB CONC 30.2 g/dl (32.0-36.5); MEAN CORPUSCULAR VOLUME 102.5 fl (80.0-96.0); RED CELL DISTRIBUTION WIDTH 17.4 % (11.5-14.5)
[2016-12-22] MEDS: IMIPENEM/CILASTATIN 250 MG in D5W MINI-BAG PLUS 100 ML IV SCH ×2 (05:19→21:18)
[2016-12-22] MEDS: HEPARIN SOD (PORCINE) 5000 UNITS/ML VIAL SC SCH ×3 (05:20→21:05)
[2016-12-22] MEDS: SODIUM CHLORIDE 0.9% INJ 10 ML SYR IV SCH ×2 (05:20→18:00)
[2016-12-22 05:30] LABS: ALBUMIN 2.2 GM/DL (3.2-5.2); CALCIUM LEVEL 8.8 MG/DL (8.8-10.2); CREATININE FOR GFR 7.49 MG/DL (0.70-1.30); GLOMERULAR FILTRATION RATE 7.5 (>35); PHOSPHORUS LEVEL 5.9 MG/DL (2.5-4.9); POTASSIUM SERUM 4.5 MEQ/L (3.5-5.1)
[2016-12-22] MEDS: ASPIRIN 81 MG CHEW TABLET PO SCH (08:33)
[2016-12-22] MEDS: MIRALAX *UNIT DOSE* 17GM PACKET PO SCH ×2 (08:34→21:05)
[2016-12-22] MEDS: predniSONE 5 MG TAB PO SCH (08:34)
[2016-12-22] MEDS: HumaLOG INSULIN (NovoLOG) PER UNIT SC SCH ×4 (08:34→20:00)
[2016-12-22] MEDS: NYSTATIN 100,000 UNITS/GM TOPICAL PWD 15 GM TOP SCH ×2 (09:00→21:08)
--- NOTE | 2016-12-22 09:52 | IPNPDOC ---
Subjective Date Seen The patient was seen on 12/22/16. Subjective Chief Complaint/HPI The patient is a 81-year-old male admitted with a reason for visit of Fluid Overload, Pneumonia. Events since last encounter Awake and alert this morning. Eating breakfast. General: Reports: ROS Unobtainable Constitutional: Denies: Fever, Night Sweats Objective Physical Examination General Exam: Positive: No Acute Distress Eye Exam: Negative: Sclera icteric ENT Exam: Positive: Mucous membr. moist/pink Neck Exam: Negative: Lymphadenopathy Chest Exam: Positive: Diminished (bibasilar), Negative: Wheezing Heart Exam: Positive: Rate Normal Telemetry: Positive: No significant arrhythmia Abdomen Exam: Positive: Normal bowel sounds, Negative: Tenderness Extremity Exam: Negative: Edema Psych Exam: Positive: Other (alert to self. Recognized Deposition Reporter. ANswered questions in 1 word answers. ) Assessment /Plan Problems (1) Healthcare associated bacterial pneumonia Status: Acute Discussed With: Nurse Problem Specific Plan: Monitor Clinically Problem Text: D8 Primaxin 12/22/16: WBC 14K. Tm 98.6, Slow improvement noted in patient's mentation. 12/16 - Pt was transferred to the ICU yesterday after found to be tachycardic and hypotensive after dialysis. Pt was found to be in A Fib. He was given IVF boluses and started on loading dose of Dig. Pt did convert to SR. Dr Peralta was consulted. Levophed was considered but not needed. Pt is being treated for pneumonia. He had been on ceftaroline and doxy. The ceftaroline was d/c' ed and he was changed to imipenem. Pt had been a DNR but rescinded this upon this admission. 12/15 BX x 2 NG (2) Septic shock Status: Acute Problem Specific Plan: Consult Specialist, Monitor Clinically, Repeat Labs Problem Text: 12/22/16: Slowly inprovin on current regimen. 12/18 - WBC trending down. 11.0 today. On IV Imipenem and Doxy. 12/17 - Now on Imipenem and doxy. WBC trending down at 17.2 today. 12/16 - Pt was transferred to the ICU yesterday after found to be tachycardic and hypotensive after dialysis. Pt was found to be in A Fib. He was given IVF boluses and started on loading dose of Dig. Pt did convert to SR. Dr Peralta was consulted. Levophed was considered but not needed. Pt is being treated for pneumonia. He had been on ceftaroline and doxy. The ceftaroline was d/c' ed and he was changed to imipenem. Pt had been a DNR but rescinded this upon this admission. (3) Atrial fibrillation Status: Acute Problem Specific Plan: Monitor Clinically, Repeat Labs Problem Text: 12/22: sinus rhythm. Rate controlled. 12/16 - See above. Pt converted to SR. (4) ESRD (end stage renal disease) on dialysis Status: Chronic Discussed With: Dry Wall Nailer Problem Text: 12/22/16: see consult notes. lund is to dialyze today. Cr 7.49 12/18 - Nephrology following and pt has been undergoing dialysis. Creatinine 4.67 today. Continue dialysis (likely Thursday schedule) (5) Diabetes Status: Chronic Problem Specific Plan: Repeat Tests Problem Text: 12/18 - BS low. PO intake has been somewhat poor per nursing. Will D/C Levemir and continue with SSI. Monitor closely. We will continue his home regimen of 10 units of basal insulin and use the corrective insulin sliding scale. Will monitor. (6) Anemia in chronic kidney disease Status: Chronic Problem Text: 12/22/16: stable at 10/30 12/18 - Hgb stable at 8.6. Continue to monitor. Hb is stable/slightly improved at this time. He is receiving Aranesp with dialysis. Continue current plan. Monitor. Plan/VTE VTE Prophylaxis Ordered?: Yes (heparin) VS, I&O, 24H, Fishbone Vital Signs/I&O Vital Signs Date Time Temp Pulse Resp B/P (MAP) Pulse Ox O2 Delivery O2 Flow Rate FiO2 12/22/16 08:00 Nasal Cannula 3.0 12/22/16 08:00 97.4 81 18 164/67 (99) 90 I&O- Last 24 Hours up to 6 AM 12/22/16 06:00 Intake Total 220 ml Output Total 1 ml Balance 219 ml Laboratory Data 24H LABS Laboratory Tests 2 12/21/16 12:05: Bedside Glucose (Misc Panel) 149H 12/21/16 17:07: Bedside Glucose (Misc Panel) 150H 12/21/16 20:39: Bedside Glucose (Misc Panel) 129H 12/22/16 04:39: Blood Urea Nitrogen 54#H, Creatinine 7.49#H, Sodium Level 134L, Potassium Level 4.5, Chloride Level 95L, Carbon Dioxide Level 27, Anion Gap 12, Glomerular Filtration Rate 7.5L, Calcium Level 8.8, Phosphorus Level 5.9#H, Albumin 2.2L 12/22/16 08:23: Bedside Glucose (Misc Panel) 147H CBC/BMP Laboratory Tests 12/22/16 04:39 Red Blood Count 2.97 L, Mean Corpuscular Volume 102.5 H, Mean Corpuscular Hemoglobin 31.0, Mean Corpuscular Hemoglobin Concent 30.2 L, Red Cell Distribution Width 17.4 H, Anion Gap 12 Microbiology Microbiology 12/15/16 Blood Culture - Final, Complete NO GROWTH AFTER 5 DAYS 12/15/16 Blood Culture - Final, Complete NO GROWTH AFTER 5 DAYS Ira Ham Dec 22, 2016 09:52 Hari Nolan M.D. Dec 22, 2016 14:46
--- NOTE | 2016-12-22 10:38 | CR ---
REQUESTING PHYSICIAN: Dr. Peter Johnson CONSULTING PHYSICIAN: Dr. Jayesh Bonilla REASON FOR CONSULTATION: Management of end-stage renal disease on hemodialysis. CHIEF COMPLAINT: Patient presented to the emergency room yesterday after hemodialysis because of weakness, lethargy, and shortness of breath. HISTORY OF PRESENT ILLNESS: Mr. Nnamdi Rodriguez is an 81-year-old male with past medical history of end-stage renal disease on hemodialysis every Thursday, Thursday, Thursday and multiple other comorbidities as mentioned below. He is well known to the nephrology service from outpatient hemodialysis center and from multiple previous admissions to the hospital. He was dialyzed according to his regular schedule yesterday at the hemodialysis center; however, he complained of feeling very awful, weak, tired, lethargic, short of breath, and despite his regular dialysis and ultrafiltration, he kept on complaining of shortness of breath, so he was transferred to emergency room. Moreover, he is recently being treated for community-acquired pneumonia at [facility] with Rocephin and doxycycline. When patient was evaluated over here in the emergency room, his inial imaging showed that he was fluid overloaded, so nephrology service was called today morning for further help in the management of fluid overload. I saw the patient today morning during hemodialysis procedure. He was restless during the hemodialysis today morning, and he was still short of breath. Patient was also having some wheezing as well. MEDICAL HISTORY: 1. Patient has a past medical history of end-stage renal disease, on hemodialysis every Thursday, Thursday, Thursday. 2. History of coronary artery disease, status post stents. 3. History of diastolic congestive heart failure. 4. Chronic obstructive pulmonary disease (COPD), on 2 liters oxygen. 5. Insulin-dependent diabetes mellitus, type 2. 6. Peripheral vascular disease. 7. 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 8. Osteomyelitis of the toes, status post recent amputation of the right two toes and left one toe. 9. Gout and neuropathy. SURGICAL HISTORY: 1. Status post bilateral toe amputation. 2. History of resection of the left upper arm arteriovenous (AV) graft because of infection. 3. History of right internal jugular (IJ) tunneled hemodialysis catheter placement. ALLERGIES: No known drug allergies.. FAMILY HISTORY: No significant family history of end-stage renal disease requiring hemodialysis. SOCIAL HISTORY: Patient is a resident of [facility]. There is no history of illicit drug abuse or alcohol abuse. He is smoking more than 14 years ago. REVIEW OF SYSTEMS: CONSTITUTIONAL: Patient reports feeling weak and tired. EYES: He denies any blurry vision or double vision. ENT: He denies any dysphagia, odynophagia, ear discharge. CARDIOVASCULAR: He denies any chest pain. RESPIRATORY: Patient reports shortness of breath and wheezing. GASTROINTESTINAL: He denies any nausea, vomiting, constipation. GENITOURINARY: He denies any dysuria or hematuria. MUSCULOSKELETAL: Patient reports recent history of amputations for osteomyelitis. PSYCHIATRIC: He denies any depression or anxiety. ENDOCRINE: He reports history of secondary hypoparathyroidism and insulin- dependent diabetes mellitus. HEMATOLOGIC/ONCOLOGIC: He denies any history of easy bruising or bleeding. All other review of systems is negative. PHYSICAL EXAMINATION: GENERAL: Patient is awake, alert, oriented times two, lying in bed getting hemodialysis done. Slightly restless. VITAL SIGNS: Temperature is 98.6 degrees Fahrenheit, blood pressure is 126/72, pulse is 105, respiratory rate of 18, saturating 97% on nasal cannula. HEAD AND NECK: Extraocular muscles intact. Pupils equally round and reactive to light. Mucous membranes are moist. Neck is supple. There is no jugular venous distention (JVD). CARDIOVASCULAR: S1, S2, tachycardia. No murmur, rub, or gallop. RESPIRATORY: Patient has wheezing, diffuse expiratory rhonchi all over the lungs and crepitations on deep inspiration at the bases. ABDOMEN: Soft, obese. Positive bowel sounds. Nontender. No ascites. No organomegaly. MUSCULOSKELETAL: Patient has dressing on the bilateral feet from recent surgery. He has 2+ edema of the bilateral lower extremities and 1+ edema of the bilateral upper extremities. CENTRAL NERVOUS SYSTEM: No focal neurologic deficit. Power is 5/5 in bilateral upper extremities. PSYCHIATRIC: Patient is agitated at this time. LYMPH NODES: No significant cervical, axillary, or inguinal lymph nodes. LABORATORY REVIEW: CBC showed a WBC of 10, hemoglobin 9.4, platelets at 197. BMP showed sodium 143, potassium 4.2, chloride 104, bicarbonate 31, BUN 20, creatinine 4, calcium 8.1, magnesium 2.6. Albumin is 2.7. Microbiology: Blood cultures are negative so far. IMAGING: CT scan of the chest done yesterday, which showed mild interstitial edema and pulmonary vascular congestion, including prominent pulmonary vasculature and cephalization. Extensive atherosclerotic changes. CURRENT INPATIENT MEDICATIONS: Patient's medications were all reviewed by me. He is currently on: - ceftaroline 300 mg IV every 12 hours - doxycycline 100 mg IV every 12 - Tylenol as needed - DuoNeb were started around the clock every 6 hours - aspirin 81 mg daily - atorvastatin 20 mg at bedtime - bisacodyl - Phos-Lo one tablet with meals - Plavix 75 mg daily - Uloric 40 mg daily - gabapentin 300 mg by mouth twice a day - heparin subcutaneous - Levemir 10 units at bedtime - I started him on Solu-Medrol 60 mg IV every 12 hours - Zofran as needed - Protonix 40 mg by mouth daily - MiraLax as needed - vitamin D 50,000 units by mouth daily ASSESSMENT: An 81-year-old male with past medical history of end-stage renal disease, on hemodialysis every Thursday, Thursday, Thursday, admitted at this time because of respiratory distress. PLAN: 1. Shortness of breath secondary to recent community-acquired pneumonia, fluid overload, and possible COPD exacerbation as well, because patient is having diffuse wheezing and rhonchi. Patient is being dialyzed off his scheduled. His regular schedule was yesterday, and he got the ultrafiltration. I shall try to do another session of ultrafiltration of about 2-2.5 kg as tolerated by his blood pressure, but I think some of his problem is because of his COPD. I have started the patient on nebulizer and Solu-Medrol 60 mg IV every 12 hours. 2. End-stage renal disease, on hemodialysis. Regular dialysis days are Thursday , Thursday, Thursday. He is getting extra session of hemodialysis and ultrafiltration. Next hemodialysis session will be again according to his schedule if needed. Otherwise, he will be dialyzed on Thursday. 3. Insulin-dependent diabetes. Continue current dose of Levemir and glargine. Rest of the management is as per primary team. 4. Recent osteomyelitis, status post amputation of three toes. Patient's antibiotics were stopped; however, because of recent pneumonia, he has been started on ceftaroline. It should cover any possibility of cellulitis in the legs as well. 5. Anemia secondary to end-stage renal disease. Hemoglobin is 9.4. Patient will be given a dose of Aranesp with hemodialysis tomorrow. 6. Chronic kidney disease, mineral bone disease. Continue current dose of Phos- Lo one tablet by mouth twice a day with meals. 7. 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 Continue current dose of Uloric 40 mg by mouth daily. Thank you for involving us in the care of this patient. We shall be happy to follow the patient along with you tomorrow morning. Patient's emergent hemodialysis was arranged today morning for optimization of his fluid status. MTDD
[2016-12-22] MEDS ORDERED: HEPARIN 1,000 UNITS/ML 10ML VIAL (FOR RADIOLOGY& DIALYSIS ONLY) IV ONE (12:00)
[2016-12-22] MEDS ORDERED: HEPARIN 1,000 UNITS/ML 10ML VIAL (FOR RADIOLOGY& DIALYSIS ONLY) XX ONE (12:00)
--- NOTE | 2016-12-22 12:33 | IPN ---
DATE: 12/22/2016 Mr. Rodriguez is seen this morning on his bedside in the intensive care unit. He woke up on verbal command and was able to recognize me immediately by my name. He is significantly hard of hearing and was able to answer simple questions when I talked into his ear. Apparently, he has been mostly lethargic and poorly responsive for last few days. There has been requesting of consideration for comfort measures only. On physical exam, the patient is without any acute distress. His temperature is 97.4 degrees Fahrenheit, heart rate 81 per minute and respiratory rate 18 per minute. Blood pressure 164/67 mmHg and oxygen saturation 90% on 2 liters oxygen. His head is atraumatic. There is mild facial edema present. Neck veins are difficult to be assessed. Hemodialysis catheter in right internal jugular vein is intact. Oral mucosa is somewhat dry but without any thrush or ulcers. Heart sounds are regular. Lungs with diminished breath sounds and bibasilar crackles. Abdomen soft and nontender. Bowel sounds at present. Extremities without any cyanosis or clubbing. He has bilateral upper extremity edema. There is no edema on the lower extremities. He has a PICC line in his right upper arm. Today's labs show WBC count 14.0, hemoglobin 9.2 and hematocrit 30.5. Platelets 240. Sodium 134 and potassium 4.5. BUN is 54 and creatinine 7.49. Calcium 8.8 and phosphorus 5.9. PROBLEMS: 1. End-stage renal disease: The patient is dialysis dependent and is due for dialysis today. We are going to go ahead and schedule his dialysis this afternoon. His volume status is reasonably well-compensated and will try to remove only 1.0 liters of fluid as tolerated. 2. Encephalopathy: The patient seems to be reasonably awake, alert and able to answer simple questions this morning. He does have a prior history of similar episodes of prolonged sleepiness and poor responsiveness however, then he recovers. At this point he seems to be doing well and I would recommend to transfer him to regular medical floor out of ICU. 3. Hyponatremia: This is mild and likely to correct with hemodialysis. No other intervention is indicated. 4. Anemia: His anemia is mild and stable. We will continue to monitor and treat with Aranesp during dialysis. 5. Pneumonia: The patient has been treated with antibiotics and is currently on imipenem. He is afebrile at this point. DISPOSITION: From a renal standpoint, the patient can be transferred out of intensive care unit to regular medical floor. He has a DO NOT RESUSCITATE status.
[2016-12-22] MEDS: CLOPIDOGREL 75 MG TAB PO SCH (17:11)
[2016-12-22] MEDS: PANTOPRAZOLE 40MG TAB (PROTONIX) PO SCH (17:11)
[2016-12-22] MEDS: FEBUXOSTAT 40 MG TABLET (ULORIC) PO SCH (17:11)
[2016-12-22] MEDS: MULTIVITAMINS/MINERALS THERAP 1 TAB PO SCH (17:11)
[2016-12-22] MEDS: ATORVASTATIN 20 MG TAB PO SCH (21:05)
[2016-12-22] MEDS: SODIUM CHLORIDE 0.9% INJ 10 ML SYR IV PRN (21:06)
[2016-12-23 02:00] VITALS: BP 138/85
[2016-12-23] MEDS: HEPARIN SOD (PORCINE) 5000 UNITS/ML VIAL SC SCH ×3 (05:20→21:13)
[2016-12-23] MEDS: SODIUM CHLORIDE 0.9% INJ 10 ML SYR IV SCH ×2 (05:20→16:57)
[2016-12-23 06:00] VITALS: BP 137/63
[2016-12-23 06:48] LABS: BASO % 0.3 % (0.0-1.0); EOS # 0.2 K/mm3 (0.0-0.50); EOS % 1.8 % (0.0-3.0); LARGE UNSTAINED CELL # 0.4 K/mm3 (0.0-0.4); LARGE UNSTAINED CELL % 3.3 % (0.0-4.0); LYMPH # 1.1 K/mm3 (1.5-4.5); LYMPH % 9.2 % (24.0-44.0); MEAN CORPUSCULAR HEMOGLOBIN 31.6 pg (27.0-33.0); MEAN CORPUSCULAR HGB CONC 30.8 g/dl (32.0-36.5); MEAN CORPUSCULAR VOLUME 102.7 fl (80.0-96.0); MONO # 0.4 K/mm3 (0.0-0.8); MONO % 3.3 % (0.0-5.0); NEUTROPHILS # 9.6 K/mm3 (1.8-7.7); PLATELET COUNT, AUTOMATED 251 k/mm3 (150-450); RED CELL DISTRIBUTION WIDTH 17.9 % (11.5-14.5); WHITE BLOOD COUNT 11.7 K/mm3 (4.0-10.0)
[2016-12-23 06:56] LABS: ALBUMIN 2.2 GM/DL (3.2-5.2); CALCIUM LEVEL 9.1 MG/DL (8.8-10.2); CREATININE FOR GFR 4.81 MG/DL (0.70-1.30); GLOMERULAR FILTRATION RATE 12.5 (>35); PHOSPHORUS LEVEL 4.2 MG/DL (2.5-4.9); POTASSIUM SERUM 4.8 MEQ/L (3.5-5.1)
[2016-12-23] MEDS: IPRATROPIUM 0.5MG/ALBUTEROL 2.5MG INH SOL UD 3ML (DUONEB)(J7620) NEB SCH ×3 (08:00→19:25)
[2016-12-23] MEDS: MIRALAX *UNIT DOSE* 17GM PACKET PO SCH ×2 (08:17→21:13)
[2016-12-23] MEDS: ASPIRIN 81 MG CHEW TABLET PO SCH (08:18)
[2016-12-23] MEDS: predniSONE 5 MG TAB PO SCH (08:18)
[2016-12-23] MEDS: NYSTATIN 100,000 UNITS/GM TOPICAL PWD 15 GM TOP SCH ×2 (08:18→21:13)
[2016-12-23] MEDS: HumaLOG INSULIN (NovoLOG) PER UNIT SC SCH ×4 (08:18→21:00)
[2016-12-23] MEDS: IMIPENEM/CILASTATIN 250 MG in D5W MINI-BAG PLUS 100 ML IV SCH ×2 (08:22→21:12)
--- NOTE | 2016-12-23 08:41 | IPNPDOC ---
Subjective Date Seen The patient was seen on 12/23/16. Subjective Chief Complaint/HPI The patient is a 81-year-old male admitted with a reason for visit of Fluid Overload, Pneumonia. Events since last encounter Some intermittent periods of confusion. C/o cough disrupting sleep and daily function. Afebrile. Hard of hearing. Constitutional: Denies: Chills, Fever, Night Sweats Skin: Denies: Rash, Lesions, Breakdown Pulmonary: Reports: Dyspnea, Cough Cardiovascular: Denies: Chest Pain, Palpitations, Orthopnea, Paroxysmal Noc. Dyspnea, Lt Headedness Gastrointestinal: Denies: Nausea, Vomiting, Abdominal Pain, Diarrhea, Constipation Psych: Reports: Mood Normal, Denies: Depression, Memory Issues Objective Physical Examination General Exam: Positive: No Acute Distress Eye Exam: Negative: Sclera icteric ENT Exam: Positive: Mucous membr. moist/pink Neck Exam: Negative: Lymphadenopathy Chest Exam: Positive: Clear to auscultation, Diminished (bibasilar), Negative: Wheezing Heart Exam: Positive: Rate Normal Telemetry: Positive: No significant arrhythmia Abdomen Exam: Positive: Normal bowel sounds, Negative: Tenderness Extremity Exam: Negative: Edema Skin Exam: Positive: Other skin issue (Amp to Right foot: intact. ) Psych Exam: Positive: Other (alert to self. Recognized Beaver Trapper. ANswered questions in 1 word answers. ) Assessment /Plan Problems (1) Healthcare associated bacterial pneumonia Status: Acute Discussed With: Nurse Problem Specific Plan: Monitor Clinically Problem Text: D9 Primaxin 12/23/16: WBC 11.7. Afebrile. Added on Duonebs, guaifenesin prn cough. 12/22/16: WBC 14K. Tm 98.6, Slow improvement noted in patient's mentation. 12/16 - Pt was transferred to the ICU yesterday after found to be tachycardic and hypotensive after dialysis. Pt was found to be in A Fib. He was given IVF boluses and started on loading dose of Dig. Pt did convert to SR. Dr Peralta was consulted. Levophed was considered but not needed. Pt is being treated for pneumonia. He had been on ceftaroline and doxy. The ceftaroline was d/c' ed and he was changed to imipenem. Pt had been a DNR but rescinded this upon this admission. 12/15 BX x 2 NG (2) Septic shock Status: Acute Problem Specific Plan: Consult Specialist, Monitor Clinically, Repeat Labs Problem Text: 12/23/16: continues to show improvement. 12/22/16: Slowly improving on current regimen. 12/18 - WBC trending down. 11.0 today. On IV Imipenem and Doxy. 12/17 - Now on Imipenem and doxy. WBC trending down at 17.2 today. 12/16 - Pt was transferred to the ICU yesterday after found to be tachycardic and hypotensive after dialysis. Pt was found to be in A Fib. He was given IVF boluses and started on loading dose of Dig. Pt did convert to SR. Dr Peralta was consulted. Levophed was considered but not needed. Pt is being treated for pneumonia. He had been on ceftaroline and doxy. The ceftaroline was d/c' ed and he was changed to imipenem. Pt had been a DNR but rescinded this upon this admission. (3) Atrial fibrillation Status: Acute Problem Specific Plan: Monitor Clinically, Repeat Labs Problem Text: 12/23/16: rate controlled. On plavix and aspirin 12/22: sinus rhythm. Rate controlled. 12/16 - See above. Pt converted to SR. (4) ESRD (end stage renal disease) on dialysis Status: Chronic Discussed With: Aboriginal Education Worker Coordinator Problem Text: 12/23/16: Nephrology following. S/p HD yesterday. 12/22/16: see consult notes. lund is to dialyze today. Cr 7.49 12/18 - Nephrology following and pt has been undergoing dialysis. Creatinine 4.67 today. Continue dialysis (likely Thursday schedule) (5) Diabetes Status: Chronic Problem Specific Plan: Repeat Tests Problem Text: 12/23/16: stable. 12/18 - BS low. PO intake has been somewhat poor per nursing. Will D/C Levemir and continue with SSI. Monitor closely. We will continue his home regimen of 10 units of basal insulin and use the corrective insulin sliding scale. Will monitor. (6) Anemia in chronic kidney disease Status: Chronic Problem Text: 12/22/16: stable at 10/30 12/18 - Hgb stable at 8.6. Continue to monitor. Hb is stable/slightly improved at this time. He is receiving Aranesp with dialysis. Continue current plan. Monitor. Plan/VTE VTE Prophylaxis Ordered?: Yes (heparin) VS, I&O, 24H, Fishbone Vital Signs/I&O Vital Signs Date Time Temp Pulse Resp B/P (MAP) Pulse Ox O2 Delivery O2 Flow Rate FiO2 12/23/16 06:00 98.5 90 19 137/63 (87) 94 Nasal Cannula 2.0 I&O- Last 24 Hours up to 6 AM 12/23/16 05:59 Intake Total 220 ml Output Total 1000 ml Balance -780 ml Laboratory Data 24H LABS Laboratory Tests 2 12/22/16 17:24: Bedside Glucose (Misc Panel) 122H 12/22/16 19:52: Bedside Glucose (Misc Panel) 130H 12/23/16 06:22: White Blood Count 11.7H, Red Blood Count 2.93L, Hemoglobin 9.3L, Hematocrit 30.1L, Mean Corpuscular Volume 102.7H, Mean Corpuscular Hemoglobin 31.6, Mean Corpuscular Hemoglobin Concent 30.8L, Red Cell Distribution Width 17.9H, Platelet Count 251, Neutrophils (%) (Auto) 82.0H, Lymphocytes (%) (Auto) 9.2L, Monocytes (%) (Auto) 3.3, Eosinophils (%) (Auto) 1.8, Basophils (%) (Auto) 0.3, Neutrophils # (Auto) 9.6H, Lymphocytes # (Auto) 1.1L, Monocytes # (Auto) 0.4, Eosinophils # (Auto) 0.2, Basophils # (Auto) 0.0, Large Unclassified Cells % 3.3 , Large Unclassified Cells # 0.4, Blood Urea Nitrogen 27H, Creatinine 4.81H, Sodium Level 133L, Potassium Level 4.8, Chloride Level 97L, Carbon Dioxide Level 26, Anion Gap 10, Glomerular Filtration Rate 12.5L, Calcium Level 9.1, Phosphorus Level 4.2#, Albumin 2.2L 12/23/16 06:31: Bedside Glucose (Misc Panel) 118H CBC/BMP Laboratory Tests 12/23/16 06:22 Red Blood Count 2.93 L, Mean Corpuscular Volume 102.7 H, Mean Corpuscular Hemoglobin 31.6, Mean Corpuscular Hemoglobin Concent 30.8 L, Red Cell Distribution Width 17.9 H, Neutrophils (%) (Auto) 82.0 H, Lymphocytes (%) (Auto ) 9.2 L, Monocytes (%) (Auto) 3.3, Eosinophils (%) (Auto) 1.8, Basophils (%) ( Auto) 0.3, Neutrophils # (Auto) 9.6 H, Lymphocytes # (Auto) 1.1 L, Monocytes # ( Auto) 0.4, Eosinophils # (Auto) 0.2, Basophils # (Auto) 0.0, Anion Gap 10 Microbiology Microbiology 12/15/16 Blood Culture - Final, Complete NO GROWTH AFTER 5 DAYS 12/15/16 Blood Culture - Final, Complete NO GROWTH AFTER 5 DAYS Ira Ham DESKTOP ENGINEER Dec 23, 2016 08:41
[2016-12-23] MEDS ORDERED: guaiFENesin SYRUP 200 MG/10 ML UDC PO PRN (08:45)
[2016-12-23 10:00] VITALS: BP 171/75
--- NOTE | 2016-12-23 11:10 | IPN ---
DATE: 12/23/2016 Mr. Rodriguez is seen this morning on his bedside. He is awake and responds to questions appropriately. He is hard of hearing. However, when I talked into his ear, he was able to understand and answer my questions. He has a complaint of constipation but denies any abdominal pain or vomiting. He denies any chest pain. He remains bed-bound and does not have any physical activity. PHYSICAL EXAMINATION: Temperature 98.5 degrees Fahrenheit, heart rate 90 per minute and respiratory rate 19 per minute. Blood pressure 137/63 mmHg and oxygen saturation 94% on 2 liters oxygen. His head is atraumatic. There is mild facial edema present. Neck veins are difficult to be assessed. Hemodialysis catheter is intact in right internal jugular vein. Oral mucosa is without any thrush or ulcers. Heart sounds are irregular in rhythm. Lungs with diminished breath sounds at dependent parts and coarse scattered rhonchi. Abdomen is obese, soft and nontender. Extremities: Without any cyanosis or clubbing. He has edema on upper extremities but no edema on lower extremities. Today's labs show WBC count 11.7, hemoglobin 9.3 and hematocrit 30.1. Sodium 133 and potassium 4.8. BUN 27 and creatinine 4.81. Calcium 9.1 and phosphorus 4.2. PROBLEMS: 1. End-stage renal disease: The patient underwent hemodialysis yesterday which he tolerated very well. He will be scheduled for next hemodialysis tomorrow. 2. Anemia: His anemia is mild and stable. The patient receives Aranesp 100 mcg once a week during hemodialysis. I will change the dose of his Aranesp to 200 mcg. 3. Pneumonia: The patient remains on imipenem. He is currently afebrile and white cell count is slightly improved. 4. Diabetes: Diabetes has been reasonably well-controlled with blood sugars between 118 and 147 mg per deciliter. 5. Hyponatremia: This is mild and essentially unchanged. This will be corrected with hemodialysis. No other intervention is indicated. The patient will be dialyzed tomorrow.
[2016-12-23] MEDS ORDERED: DARBEPOETIN 100 MCG/0.5 ML *DIALYSIS* SYRINGE (J0882) IV SCH (11:15)
[2016-12-23] MEDS: PANTOPRAZOLE 40MG TAB (PROTONIX) PO SCH (11:55)
[2016-12-23] MEDS: CLOPIDOGREL 75 MG TAB PO SCH (11:55)
[2016-12-23] MEDS: MULTIVITAMINS/MINERALS THERAP 1 TAB PO SCH (11:55)
[2016-12-23] MEDS: FEBUXOSTAT 40 MG TABLET (ULORIC) PO SCH (11:55)
[2016-12-23 14:00] VITALS: BP 121/57
[2016-12-23] MEDS ORDERED: HEPARIN SOD (PORCINE) 5000 UNITS/ML VIAL As Ordered ONE (21:05)
[2016-12-23] MEDS: ATORVASTATIN 20 MG TAB PO SCH (21:13)
[2016-12-23 22:00] VITALS: BP 127/60
[2016-12-24] VITALS (7 sets, daily range): BP systolic 119–155; BP diastolic 58–73
[2016-12-24] MEDS: IPRATROPIUM 0.5MG/ALBUTEROL 2.5MG INH SOL UD 3ML (DUONEB)(J7620) NEB SCH ×4 (04:46→20:00)
[2016-12-24] MEDS ORDERED: MIRALAX *UNIT DOSE* 17GM PACKET As Ordered ONE (05:12)
[2016-12-24] MEDS: SODIUM CHLORIDE 0.9% INJ 10 ML SYR IV SCH ×2 (05:54→17:27)
[2016-12-24] MEDS: HEPARIN SOD (PORCINE) 5000 UNITS/ML VIAL SC SCH ×3 (05:55→21:00)
[2016-12-24] MEDS: ASPIRIN 81 MG CHEW TABLET PO SCH (05:56)
[2016-12-24] MEDS: MIRALAX *UNIT DOSE* 17GM PACKET PO SCH ×2 (05:56→20:57)
[2016-12-24] MEDS: predniSONE 5 MG TAB PO SCH (05:56)
[2016-12-24 06:39] LABS: BASO % 0.3 % (0.0-1.0); EOS # 0.2 K/mm3 (0.0-0.50); EOS % 2.1 % (0.0-3.0); LARGE UNSTAINED CELL # 0.3 K/mm3 (0.0-0.4); LARGE UNSTAINED CELL % 3.4 % (0.0-4.0); LYMPH % 10.4 % (24.0-44.0); MEAN CORPUSCULAR HGB CONC 31.1 g/dl (32.0-36.5); MEAN CORPUSCULAR VOLUME 99.7 fl (80.0-96.0); MONO # 0.4 K/mm3 (0.0-0.8); MONO % 4.6 % (0.0-5.0); NEUTROPHILS # 7.7 K/mm3 (1.8-7.7); NEUTROPHILS % 79.2 % (36.0-66.0); PLATELET COUNT, AUTOMATED 263 k/mm3 (150-450); RED CELL DISTRIBUTION WIDTH 17.8 % (11.5-14.5); WHITE BLOOD COUNT 9.7 K/mm3 (4.0-10.0)
[2016-12-24 06:54] LABS: ALBUMIN 2.1 GM/DL (3.2-5.2); CALCIUM LEVEL 8.6 MG/DL (8.8-10.2); CREATININE FOR GFR 6.23 MG/DL (0.70-1.30); GLOMERULAR FILTRATION RATE 9.2 (>35); POTASSIUM SERUM 4.6 MEQ/L (3.5-5.1)
[2016-12-24] MEDS: HumaLOG INSULIN (NovoLOG) PER UNIT SC SCH ×4 (07:30→20:48)
--- NOTE | 2016-12-24 08:18 | IPNPDOC ---
Subjective Date Seen The patient was seen on 12/24/16. Subjective Chief Complaint/HPI The patient is a 81-year-old male admitted with a reason for visit of Fluid Overload, Pneumonia. Events since last encounter Denies c/o. Planning on HD today. Continues on Imipenem. Constitutional: Denies: Chills, Fever, Night Sweats Cardiovascular: Denies: Chest Pain, Palpitations, Orthopnea, Paroxysmal Noc. Dyspnea, Lt Headedness Gastrointestinal: Denies: Nausea, Vomiting, Abdominal Pain, Diarrhea, Constipation Genitourinary: Denies: Dysuria, Frequency, Incontinence, Retention Psych: Reports: Mood Normal, Denies: Depression, Memory Issues Objective Physical Examination General Exam: Positive: No Acute Distress Eye Exam: Negative: Sclera icteric ENT Exam: Positive: Mucous membr. moist/pink Neck Exam: Negative: Lymphadenopathy Chest Exam: Positive: Clear to auscultation, Negative: Wheezing Heart Exam: Positive: Rate Normal Telemetry: Positive: No significant arrhythmia Abdomen Exam: Positive: Normal bowel sounds, Negative: Tenderness Extremity Exam: Negative: Edema Skin Exam: Positive: Other skin issue (Amp to Right foot: intact. ) Psych Exam: Positive: Other (alert to self. Recognized Automotive Service Consultant. ANswered questions in 1 word answers. ) Assessment /Plan Problems (1) Healthcare associated bacterial pneumonia Status: Acute Discussed With: Nurse Problem Specific Plan: Monitor Clinically Problem Text: D10 Primaxin 12/24/16: WBC 9.7. Repeat CXR today 12/23/16: WBC 11.7. Afebrile. Added on Duonebs, guaifenesin prn cough. 12/22/16: WBC 14K. Tm 98.6, Slow improvement noted in patient's mentation. 12/16 - Pt was transferred to the ICU yesterday after found to be tachycardic and hypotensive after dialysis. Pt was found to be in A Fib. He was given IVF boluses and started on loading dose of Dig. Pt did convert to SR. Dr Peralta was consulted. Levophed was considered but not needed. Pt is being treated for pneumonia. He had been on ceftaroline and doxy. The ceftaroline was d/c' ed and he was changed to imipenem. Pt had been a DNR but rescinded this upon this admission. 12/15 BX x 2 NG (2) Atrial fibrillation Status: Acute Problem Specific Plan: Monitor Clinically, Repeat Labs Problem Text: 12/24/16: rate controlled. On plavix and aspirn 12/23/16: rate controlled. On plavix and aspirin 12/22: sinus rhythm. Rate controlled. 12/16 - See above. Pt converted to SR. (3) ESRD (end stage renal disease) on dialysis Status: Chronic Discussed With: Airfield Operations Specialist Problem Text: 12/24/16: HD today. Nephrology following. See consult notes 12/23/16: Nephrology following. S/p HD yesterday. 12/22/16: see consult notes. lund is to dialyze today. Cr 7.49 12/18 - Nephrology following and pt has been undergoing dialysis. Creatinine 4.67 today. Continue dialysis (likely Thursday schedule) (4) Diabetes Status: Chronic Problem Specific Plan: Repeat Tests Problem Text: 12/23/16: stable. 12/18 - BS low. PO intake has been somewhat poor per nursing. Will D/C Levemir and continue with SSI. Monitor closely. We will continue his home regimen of 10 units of basal insulin and use the corrective insulin sliding scale. Will monitor. (5) Anemia in chronic kidney disease Status: Chronic Problem Text: 12/24/16: stable. 12/22/16: stable at 10/30 12/18 - Hgb stable at 8.6. Continue to monitor. Hb is stable/slightly improved at this time. He is receiving Aranesp with dialysis. Continue current plan. Monitor. (6) Septic shock Status: Resolved Problem Specific Plan: Consult Specialist, Monitor Clinically, Repeat Labs Problem Text: 12/23/16: continues to show improvement. 12/22/16: Slowly improving on current regimen. 12/18 - WBC trending down. 11.0 today. On IV Imipenem and Doxy. 12/17 - Now on Imipenem and doxy. WBC trending down at 17.2 today. 12/16 - Pt was transferred to the ICU yesterday after found to be tachycardic and hypotensive after dialysis. Pt was found to be in A Fib. He was given IVF boluses and started on loading dose of Dig. Pt did convert to SR. Dr Peralta was consulted. Levophed was considered but not needed. Pt is being treated for pneumonia. He had been on ceftaroline and doxy. The ceftaroline was d/c' ed and he was changed to imipenem. Pt had been a DNR but rescinded this upon this admission. Plan/VTE VTE Prophylaxis Ordered?: Yes (heparin) Plan Family Medicine Attending Note: I saw and examined Mr. Rodriguez this morning; I discussed his care with ORIN Reyes and I agree with her note as documented. Patient has improved clinically. He has received 10 days of Imipenem, which should be adequate treatment for his pneumonia. He is going to receive dialysis today, and and can likely be discharged back to [facility] tomorrow if he remains stable. (KES) VS, I&O, 24H, Fishbone Vital Signs/I&O Vital Signs Date Time Temp Pulse Resp B/P (MAP) Pulse Ox O2 Delivery O2 Flow Rate FiO2 12/24/16 06:00 97.6 86 18 119/58 (78) 93 Nasal Cannula 2.0 I&O- Last 24 Hours up to 6 AM 12/24/16 06:00 Intake Total 100 ml Output Total 0 ml Balance 100 ml Laboratory Data 24H LABS Laboratory Tests 2 12/23/16 11:35: Bedside Glucose (Misc Panel) 154H 12/23/16 16:37: Bedside Glucose (Misc Panel) 135H 12/23/16 19:54: Bedside Glucose (Misc Panel) 128H 12/24/16 06:08: White Blood Count 9.7, Red Blood Count 2.98L, Hemoglobin 9.2L, Hematocrit 29.7L , Mean Corpuscular Volume 99.7H, Mean Corpuscular Hemoglobin 31.0, Mean Corpuscular Hemoglobin Concent 31.1L, Red Cell Distribution Width 17.8H, Platelet Count 263, Neutrophils (%) (Auto) 79.2H, Lymphocytes (%) (Auto) 10.4L, Monocytes (%) (Auto) 4.6, Eosinophils (%) (Auto) 2.1, Basophils (%) (Auto) 0.3, Neutrophils # (Auto) 7.7, Lymphocytes # (Auto) 1.0L, Monocytes # (Auto) 0.4, Eosinophils # (Auto) 0.2, Basophils # (Auto) 0.0, Large Unclassified Cells % 3.4 , Large Unclassified Cells # 0.3, Blood Urea Nitrogen 37H, Creatinine 6.23H, Sodium Level 135L, Potassium Level 4.6, Chloride Level 101, Carbon Dioxide Level 22, Anion Gap 12, Glomerular Filtration Rate 9.2L, Calcium Level 8.6L, Phosphorus Level 5.0H, Albumin 2.1L CBC/BMP Laboratory Tests 12/24/16 06:08 Red Blood Count 2.98 L, Mean Corpuscular Volume 99.7 H, Mean Corpuscular Hemoglobin 31.0, Mean Corpuscular Hemoglobin Concent 31.1 L, Red Cell Distribution Width 17.8 H, Neutrophils (%) (Auto) 79.2 H, Lymphocytes (%) (Auto ) 10.4 L, Monocytes (%) (Auto) 4.6, Eosinophils (%) (Auto) 2.1, Basophils (%) ( Auto) 0.3, Neutrophils # (Auto) 7.7, Lymphocytes # (Auto) 1.0 L, Monocytes # ( Auto) 0.4, Eosinophils # (Auto) 0.2, Basophils # (Auto) 0.0, Anion Gap 12 Microbiology Microbiology 12/15/16 Blood Culture - Final, Complete NO GROWTH AFTER 5 DAYS 12/15/16 Blood Culture - Final, Complete NO GROWTH AFTER 5 DAYS Ira Ham Dec 24, 2016 08:18 MELCHOR SPENCE MD Dec 24, 2016 11:01
[2016-12-24] MEDS: IMIPENEM/CILASTATIN 250 MG in D5W MINI-BAG PLUS 100 ML IV SCH ×2 (08:25→20:58)
--- NOTE | 2016-12-24 10:23 | IPN ---
DATE OF VISIT: 12/24/2016 Mr. Rodriguez is seen this morning during hemodialysis on his bedside. He is without any acute issues and denies any complaints. He remains very weak and bed-bound. There is no vomiting or diarrhea reported. He has no fever or chills. He remains chronically short of breath and using oxygen via nasal cannula. On physical examination, temperature 97.6 degrees Fahrenheit, heart rate 86 per minute, respiratory rate 18 per minute. Blood pressure 119/58 mmHg and oxygen saturation 93% on 2 liters oxygen. The head is atraumatic. Some facial edema is unchanged. Neck veins are not abnormally distended. Dialysis catheter in right internal jugular vein is intact. Heart sounds are irregular in rhythm. Lungs with diminished breath sounds at dependent parts and bilateral coarse crepitations. Abdomen: Soft and nontender. Bowel sounds are normal, and there is no palpable organomegaly. Extremities: Have no cyanosis or clubbing. Today's laboratories show WBC count 9.7, hemoglobin 9.2, and hematocrit 29.7. Sodium 135 and potassium 4.6. BUN 37 and creatinine 6.23. PROBLEMS: 1. End-stage renal disease. The patient is being dialyzed today, and he is tolerating dialysis treatment well. We are removing only 1.0 liter of fluid today. 2. Pneumonia. The patient is currently afebrile and remains on antibiotics and nebulizers. 3. Anemia. His anemia is stable, and Aranesp dose has been changed to 200 mcg once a week. 4. Generalized weakness and deconditioning. This is a chronic issue, and the patient does not have any motivation for the physical therapy. He is likely to go back to long term for long-term care. 5. Protein-calorie malnutrition. The patient needs assistance with feeding. Nursing staff needs to continue with supportive care and provide support for nutrition.
[2016-12-24] MEDS ORDERED: HEPARIN 1,000 UNITS/ML 10ML VIAL (FOR RADIOLOGY& DIALYSIS ONLY) IV ONE (10:30)
[2016-12-24] MEDS: SODIUM CHLORIDE 0.9% INJ 10 ML SYR IV PRN ×2 (10:34→22:37)
[2016-12-24] MEDS: NORCO, ANEXSIA 5/325MG TABLET (HYDROcodone/ACETAMINOPHEN) PO PRN (11:55)
[2016-12-24] MEDS: PANTOPRAZOLE 40MG TAB (PROTONIX) PO SCH (13:37)
[2016-12-24] MEDS: MULTIVITAMINS/MINERALS THERAP 1 TAB PO SCH (13:37)
[2016-12-24] MEDS: FEBUXOSTAT 40 MG TABLET (ULORIC) PO SCH (13:37)
[2016-12-24] MEDS: CLOPIDOGREL 75 MG TAB PO SCH (13:37)
[2016-12-24] MEDS: NYSTATIN 100,000 UNITS/GM TOPICAL PWD 15 GM TOP SCH ×2 (13:38→20:58)
--- NOTE | 2016-12-24 14:46 | REP ---
Clinical: Follow up right upper lobe pneumonia/infiltrate. Technique: PA and lateral. Comparison: 12/16/2016, 12/18/2016. Findings: The recently identified right upper lobe infiltrate has improved and nearly resolved. Diffuse interstitial edema along with cardiomegaly and cephalization is appreciated and bibasilar atelectasis as well as possible small pleural effusions cannot be excluded. A double-lumen central venous catheter is identified with tip in the SVC. A PICC line terminates at the subclavian vein overlying the mid clavicle. Impression: 1. Recently identified right upper lobe infiltrate has essentially resolved with only minimal residual opacity seen. 2. Findings suggest diffuse pulmonary vascular congestion and interstitial edema with possible basilar atelectasis and layering effusion. Signed by Ramesh Mc MD 12/24/2016 02:37 P
[2016-12-24] MEDS ORDERED: DOCUSATE SODIUM 100 MG CAP PO PRN (15:45)
[2016-12-24] MEDS: ACETAMINOPHEN TAB 650MG DOSE (2X325MG) PO PRN ×2 (15:57→20:58)
[2016-12-24] MEDS: ATORVASTATIN 20 MG TAB PO SCH (20:57)
[2016-12-25 02:00] VITALS: BP 143/66
[2016-12-25] MEDS: IPRATROPIUM 0.5MG/ALBUTEROL 2.5MG INH SOL UD 3ML (DUONEB)(J7620) NEB SCH ×4 (02:00→20:24)
[2016-12-25] MEDS: SODIUM CHLORIDE 0.9% INJ 10 ML SYR IV SCH ×2 (05:12→17:55)
[2016-12-25] MEDS: HEPARIN SOD (PORCINE) 5000 UNITS/ML VIAL SC SCH ×3 (05:12→21:03)
[2016-12-25 06:00] VITALS: BP 136/69
[2016-12-25 06:55] LABS: BASO % 0.5 % (0.0-1.0); EOS # 0.2 K/mm3 (0.0-0.50); EOS % 2.3 % (0.0-3.0); LARGE UNSTAINED CELL # 0.3 K/mm3 (0.0-0.4); LARGE UNSTAINED CELL % 3.3 % (0.0-4.0); LYMPH # 0.9 K/mm3 (1.5-4.5); LYMPH % 9.7 % (24.0-44.0); MEAN CORPUSCULAR HEMOGLOBIN 31.5 pg (27.0-33.0); MEAN CORPUSCULAR HGB CONC 30.9 g/dl (32.0-36.5); MEAN CORPUSCULAR VOLUME 101.9 fl (80.0-96.0); MONO # 0.4 K/mm3 (0.0-0.8); MONO % 4.7 % (0.0-5.0); NEUTROPHILS # 7.4 K/mm3 (1.8-7.7); NEUTROPHILS % 79.4 % (36.0-66.0); PLATELET COUNT, AUTOMATED 233 k/mm3 (150-450); RED CELL DISTRIBUTION WIDTH 17.8 % (11.5-14.5); WHITE BLOOD COUNT 9.3 K/mm3 (4.0-10.0)
[2016-12-25 07:14] LABS: ALBUMIN 2.2 GM/DL (3.2-5.2); CALCIUM LEVEL 8.7 MG/DL (8.8-10.2); CREATININE FOR GFR 4.12 MG/DL (0.70-1.30); GLOMERULAR FILTRATION RATE 14.9 (>35); PHOSPHORUS LEVEL 3.2 MG/DL (2.5-4.9); POTASSIUM SERUM 3.7 MEQ/L (3.5-5.1)
--- NOTE | 2016-12-25 07:28 | IPNPDOC ---
Subjective Date Seen The patient was seen on 12/25/16. Subjective Chief Complaint/HPI The patient is a 81-year-old male admitted with a reason for visit of Fluid Overload, Pneumonia. Events since last encounter States not feeling well today. C/o fatigue and weakness. s/p HD yesterday. Nephrology following. Constitutional: Reports: Weakness, Fatigue, Denies: Chills, Fever, Night Sweats Pulmonary: Reports: Dyspnea, Denies: Cough Cardiovascular: Denies: Chest Pain, Palpitations, Orthopnea, Paroxysmal Noc. Dyspnea, Lt Headedness Gastrointestinal: Denies: Nausea, Vomiting, Abdominal Pain, Diarrhea, Constipation Objective Physical Examination General Exam: Positive: Alert, No Acute Distress Eye Exam: Negative: Sclera icteric ENT Exam: Positive: Mucous membr. moist/pink Neck Exam: Negative: Lymphadenopathy Chest Exam: Positive: Clear to auscultation, Rales (fine bibasilar), Negative: Wheezing Heart Exam: Positive: Rate Normal Telemetry: Positive: No significant arrhythmia Abdomen Exam: Positive: Normal bowel sounds, Negative: Tenderness Extremity Exam: Negative: Edema Skin Exam: Positive: Other skin issue (Amp to Right foot: intact. ) Psych Exam: Positive: Other (alert to self. Recognized Solutions Operator. ANswered questions in 1 word answers. ) Assessment /Plan Problems (1) Physical deconditioning Problem Text: 12/25 PT unable to evaluate today 2 fatigue s/p dialysis-plan back to SNF on dc (2) Healthcare associated bacterial pneumonia Status: Acute Discussed With: Nurse Problem Specific Plan: Monitor Clinically Problem Text: D10 Primaxin 12/25/16: patient received 10 days of IV antibiotic. Will DC. showing improvement. Repeat CXR to f/u pneumonia today. 12/16 - Pt was transferred to the ICU yesterday after found to be tachycardic and hypotensive after dialysis. Pt was found to be in A Fib. He was given IVF boluses and started on loading dose of Dig. Pt did convert to SR. Dr Peralta was consulted. Levophed was considered but not needed. Pt is being treated for pneumonia. He had been on ceftaroline and doxy. The ceftaroline was d/c' ed and he was changed to imipenem. Pt had been a DNR but rescinded this upon this admission. 12/15 BX x 2 NG (3) Atrial fibrillation Status: Acute Problem Specific Plan: Monitor Clinically, Repeat Labs Problem Text: 12/25/16: HR 90s. On Plavix and aspirin 12/24/16: rate controlled. On plavix and aspirn 12/23/16: rate controlled. On plavix and aspirin 12/22: sinus rhythm. Rate controlled. 12/16 - See above. Pt converted to SR. (4) ESRD (end stage renal disease) on dialysis Status: Chronic Discussed With: Store Shopper Problem Text: 12/25/16: Nephro following 12/24/16: HD today. Nephrology following. See consult notes 12/23/16: Nephrology following. S/p HD yesterday. 12/22/16: see consult notes. lund is to dialyze today. Cr 7.49 12/18 - Nephrology following and pt has been undergoing dialysis. Creatinine 4.67 today. Continue dialysis (likely Thursday schedule) (5) Diabetes Status: Chronic Problem Specific Plan: Repeat Tests Problem Text: 12/23/16: stable. 12/18 - BS low. PO intake has been somewhat poor per nursing. Will D/C Levemir and continue with SSI. Monitor closely. We will continue his home regimen of 10 units of basal insulin and use the corrective insulin sliding scale. Will monitor. (6) Anemia in chronic kidney disease Status: Chronic Problem Text: : Aranesp dosing adjusted by Nephrology. monitor. 12/24/16: stable. 12/22/16: stable at 10/30 12/18 - Hgb stable at 8.6. Continue to monitor. Hb is stable/slightly improved at this time. He is receiving Aranesp with dialysis. Continue current plan. Monitor. (7) Septic shock Status: Resolved Problem Specific Plan: Consult Specialist, Monitor Clinically, Repeat Labs Problem Text: 12/25/16: c/o weakness and fatigue today. F/u with CXR. Start PT 12/23/16: continues to show improvement. 12/22/16: Slowly improving on current regimen. 12/18 - WBC trending down. 11.0 today. On IV Imipenem and Doxy. 12/17 - Now on Imipenem and doxy. WBC trending down at 17.2 today. 12/16 - Pt was transferred to the ICU yesterday after found to be tachycardic and hypotensive after dialysis. Pt was found to be in A Fib. He was given IVF boluses and started on loading dose of Dig. Pt did convert to SR. Dr Peralta was consulted. Levophed was considered but not needed. Pt is being treated for pneumonia. He had been on ceftaroline and doxy. The ceftaroline was d/c' ed and he was changed to imipenem. Pt had been a DNR but rescinded this upon this admission. Plan/VTE VTE Prophylaxis Ordered?: Yes (heparin) VS, I&O, 24H, Fishbone Vital Signs/I&O Vital Signs Date Time Temp Pulse Resp B/P (MAP) Pulse Ox O2 Delivery O2 Flow Rate FiO2 12/25/16 02:00 97.3 93 19 143/66 (91) 92 Nasal Cannula 2.0 I&O- Last 24 Hours up to 6 AM 12/25/16 06:00 Intake Total 350 ml Output Total 1000 ml Balance -650 ml Laboratory Data 24H LABS Laboratory Tests 2 12/24/16 13:17: Bedside Glucose (Misc Panel) 166H 12/24/16 16:16: Bedside Glucose (Misc Panel) 106 12/24/16 20:35: Bedside Glucose (Misc Panel) 94 12/25/16 06:44: White Blood Count 9.3, Red Blood Count 3.23L, Hemoglobin 10.2L, Hematocrit 32.9L , Mean Corpuscular Volume 101.9H, Mean Corpuscular Hemoglobin 31.5, Mean Corpuscular Hemoglobin Concent 30.9L, Red Cell Distribution Width 17.8H, Platelet Count 233, Neutrophils (%) (Auto) 79.4H, Lymphocytes (%) (Auto) 9.7L, Monocytes (%) (Auto) 4.7, Eosinophils (%) (Auto) 2.3, Basophils (%) (Auto) 0.5, Neutrophils # (Auto) 7.4, Lymphocytes # (Auto) 0.9L, Monocytes # (Auto) 0.4, Eosinophils # (Auto) 0.2, Basophils # (Auto) 0.0, Large Unclassified Cells % 3.3 , Large Unclassified Cells # 0.3, Blood Urea Nitrogen 18#, Creatinine 4.12H, Sodium Level 136, Potassium Level 3.7, Chloride Level 100, Carbon Dioxide Level 23, Anion Gap 13, Glomerular Filtration Rate 14.9L, Calcium Level 8.7L, Phosphorus Level 3.2#, Albumin 2.2L CBC/BMP Laboratory Tests 12/25/16 06:44 Red Blood Count 3.23 L, Mean Corpuscular Volume 101.9 H, Mean Corpuscular Hemoglobin 31.5, Mean Corpuscular Hemoglobin Concent 30.9 L, Red Cell Distribution Width 17.8 H, Neutrophils (%) (Auto) 79.4 H, Lymphocytes (%) (Auto ) 9.7 L, Monocytes (%) (Auto) 4.7, Eosinophils (%) (Auto) 2.3, Basophils (%) ( Auto) 0.5, Neutrophils # (Auto) 7.4, Lymphocytes # (Auto) 0.9 L, Monocytes # ( Auto) 0.4, Eosinophils # (Auto) 0.2, Basophils # (Auto) 0.0, Anion Gap 13 Microbiology Microbiology 12/15/16 Blood Culture - Final, Complete NO GROWTH AFTER 5 DAYS 12/15/16 Blood Culture - Final, Complete NO GROWTH AFTER 5 DAYS Ira Ham Dec 25, 2016 07:28 Hari Nolan M.D. Dec 25, 2016 16:59
[2016-12-25] MEDS: HumaLOG INSULIN (NovoLOG) PER UNIT SC SCH ×5 (07:30→20:27)
[2016-12-25] MEDS: predniSONE 5 MG TAB PO SCH (08:42)
[2016-12-25] MEDS: ASPIRIN 81 MG CHEW TABLET PO SCH (08:42)
[2016-12-25] MEDS: MIRALAX *UNIT DOSE* 17GM PACKET PO SCH ×2 (08:42→21:02)
[2016-12-25] MEDS: NYSTATIN 100,000 UNITS/GM TOPICAL PWD 15 GM TOP SCH ×2 (08:43→21:03)
[2016-12-25] MEDS: NORCO, ANEXSIA 5/325MG TABLET (HYDROcodone/ACETAMINOPHEN) PO PRN ×2 (08:44→14:19)
--- NOTE | 2016-12-25 10:07 | IPN ---
DATE: 12/25/2016 Mr. Rodriguez is seen this morning on his bedside. He reports that he did not sleep last night due to some vague symptoms. He does feel short of breath. He denies any fever, chills, nausea or vomiting. He had a chest x-ray done yesterday which showed improved infiltrate in the right upper lobe, but continues to have some interstitial edema. On physical exam, temperature 97.1 degrees Fahrenheit, heart rate 92 per minute and respiratory rate 20 per minute. Blood pressure 136/69 mmHg and oxygen saturation 96% on 2 liters oxygen. Head is atraumatic. Neck veins are difficult to be assessed. There is mild facial edema present. Dialysis catheter in right internal jugular vein is intact. Heart sounds are irregular in rhythm. Lungs with diminished breath sounds at bases bilaterally and bibasilar rales. Abdomen soft and nontender and bowel sounds are normal. Extremities have no cyanosis or clubbing. Bilateral upper extremity edema is unchanged. Today's labs show WBC count 9.3, hemoglobin 10.2 and hematocrit 32.9. Sodium 136 and potassium 3.7. BUN 18 and creatinine 4.12. PROBLEMS: 1. Shortness of breath. Most likely he has mild pulmonary edema. Chest x-ray yesterday showed improved infiltrate. We will try to ultrafiltrate him today and remove about 1.5 liters of fluid with hemodialysis as tolerated. 2. End-stage renal disease. The patient underwent regular hemodialysis yesterday. His next dialysis will be scheduled for tomorrow. 3. Hyponatremia. Sodium level has corrected. At this point no intervention is indicated. We hope that improving his volume status will help to maintain his electrolytes in the normal range. 4. Pneumonia. Chest x-ray showed improved infiltrate. His antibiotic is being stopped by his primary team. 5. Anemia. His anemia has improved and we will continue to treat with Aranesp once a week. 6. Generalized weakness and deconditioning. The patient remains bed bound and is likely to require long-term longterm care as he was in longterm even prior to this admission.
[2016-12-25] MEDS ORDERED: HEPARIN 1,000 UNITS/ML 10ML VIAL (FOR RADIOLOGY& DIALYSIS ONLY) IV ONE (10:15)
[2016-12-25] MEDS: FEBUXOSTAT 40 MG TABLET (ULORIC) PO SCH (13:26)
[2016-12-25] MEDS: PANTOPRAZOLE 40MG TAB (PROTONIX) PO SCH (13:26)
[2016-12-25] MEDS: CLOPIDOGREL 75 MG TAB PO SCH (13:26)
[2016-12-25] MEDS: MULTIVITAMINS/MINERALS THERAP 1 TAB PO SCH (13:27)
[2016-12-25 14:00] VITALS: BP 123/58
[2016-12-25] MEDS: ONDANSETRON 4MG/2ML VIAL (J2405) IV PRN (15:44)
[2016-12-25] MEDS: SODIUM CHLORIDE 0.9% INJ 10 ML SYR IV PRN (15:44)
[2016-12-25] MEDS: ATORVASTATIN 20 MG TAB PO SCH (21:02)
[2016-12-25 22:00] VITALS: BP 124/58
[2016-12-26 02:00] VITALS: BP 139/68
[2016-12-26] MEDS: IPRATROPIUM 0.5MG/ALBUTEROL 2.5MG INH SOL UD 3ML (DUONEB)(J7620) NEB SCH ×2 (02:00→07:25)
[2016-12-26] MEDS: HEPARIN SOD (PORCINE) 5000 UNITS/ML VIAL SC SCH (05:41)
[2016-12-26] MEDS: SODIUM CHLORIDE 0.9% INJ 10 ML SYR IV SCH (05:41)
[2016-12-26] MEDS: ACETAMINOPHEN TAB 650MG DOSE (2X325MG) PO PRN (05:42)
[2016-12-26] MEDS: MIRALAX *UNIT DOSE* 17GM PACKET PO SCH (05:49)
[2016-12-26] MEDS: ASPIRIN 81 MG CHEW TABLET PO SCH (05:58)
[2016-12-26] MEDS: NYSTATIN 100,000 UNITS/GM TOPICAL PWD 15 GM TOP SCH (05:58)
[2016-12-26] MEDS: predniSONE 5 MG TAB PO SCH (05:58)
[2016-12-26 06:00] VITALS: BP 130/57
[2016-12-26 06:54] LABS: BASO # 0.1 K/mm3 (0.0-0.2); BASO % 0.7 % (0.0-1.0); EOS # 0.2 K/mm3 (0.0-0.50); EOS % 1.9 % (0.0-3.0); LARGE UNSTAINED CELL # 0.2 K/mm3 (0.0-0.4); LARGE UNSTAINED CELL % 2.1 % (0.0-4.0); LYMPH # 1.4 K/mm3 (1.5-4.5); LYMPH % 10.5 % (24.0-44.0); MEAN CORPUSCULAR HEMOGLOBIN 30.1 pg (27.0-33.0); MEAN CORPUSCULAR HGB CONC 28.8 g/dl (32.0-36.5); MEAN CORPUSCULAR VOLUME 104.6 fl (80.0-96.0); MONO # 0.6 K/mm3 (0.0-0.8); MONO % 4.9 % (0.0-5.0); NEUTROPHILS % 79.8 % (36.0-66.0); PLATELET COUNT, AUTOMATED 259 k/mm3 (150-450); RED CELL DISTRIBUTION WIDTH 18.5 % (11.5-14.5); WHITE BLOOD COUNT 11.2 K/mm3 (4.0-10.0)
[2016-12-26 07:09] LABS: ALBUMIN 2.4 GM/DL (3.2-5.2); CALCIUM LEVEL 8.4 MG/DL (8.8-10.2); CREATININE FOR GFR 6.11 MG/DL (0.70-1.30); GLOMERULAR FILTRATION RATE 9.5 (>35); PHOSPHORUS LEVEL 4.5 MG/DL (2.5-4.9); POTASSIUM SERUM 3.8 MEQ/L (3.5-5.1)
[2016-12-26] MEDS: HumaLOG INSULIN (NovoLOG) PER UNIT SC SCH (07:30)
[2016-12-26 10:00] VITALS: BP 154/78
--- NOTE | 2016-12-26 11:05 | DSES ---
DATE OF ADMISSION: 12/10/2016 DATE OF DISCHARGE: ATTENDING PHYSICIAN: Dr. Hari Nolan CONSULTATIONS: Include: Dr. Nils Peralta, clearing supervisor. Dr. Daisha Bass, Dr. Bonilla, and Dr. Jl Bass, nephrology. PRIMARY CARE PROVIDER: Dr. Volodymyr Clark at [facility] HISTORY OF PRESENT ILLNESS: This is an 81-year-old gentleman with a significant past medical history of end stage renal disease on hemodialysis managed by nephrology. Also a history of coronary artery disease with myocardial infarction and stents, diastolic congestive heart failure (CHF), chronic obstructive pulmonary disease (COPD) with chronic oxygen use at 2 liters nasal cannula, insulin-dependent diabetes, peripheral vascular disease, neuropathy, and gout. The patient had previously been treated prior to this presentation for community acquired pneumonia at [facility] with ceftriaxone and doxycycline. However, during dialysis, the patient developed significant change in mental status with lethargy and worsening shortness of breath. On presentation to the emergency room, the patient admitted to feeling weaker, having increased shortness of breath, productive cough, and difficulty with expectoration. Workup in the emergency department proved worsening community acquired pneumonia, fluid overload. The patient was subsequently admitted and seemed to be slowly improving. However, on 12/15/2016, the patient was status post dialysis and had significantly low blood pressure, which did not improve with IV fluids and an increased heart rate was noted. Dr. Peralta, clearing supervisor, was consulted and evaluated the patient with a diagnosis of sepsis with shock. The patient was placed on Levophed. IV antibiotics were changed to carbapenem. Sputum culture was ordered and never obtained. The patient continued to decompensate and decline over the next several days. Family had continued to have contact with primary care, as well as nephrology, who managed the patient's renal needs. 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 Laboratories continued to improve. Vital signs continued to improve, and the patient was moved out of the intensive care unit (ICU) on 12/22/2016. Over the next several days, the patient has continued to slowly improve. Mentation has returned to baseline. The patient has been dialyzed accordingly based on his fluid volume status needs, which included an extra dialysis day yesterday secondary to some pulmonary vascular congestion, interstitial edema with layering effusion on chest x-ray from 12/24/2016. The patient has now returned to baseline and is appropriate for transition back to [facility]. Most recent laboratories showed a hemoglobin and hematocrit of 9 and 34. Chemistries show BUN 28, creatinine 6.11, sodium of 142. Most recent vital signs: Blood pressure 130/57, oxygen saturation 94% on 2 liters nasal cannula, heart rate 92, temperature 97.9. HEENT: Neck is supple without lymphadenopathy or jugular venous distention (JVD). CARDIOVASCULAR: Heart rate and rhythm are regular. PULMONARY: Lungs are clear. ABDOMEN: Soft and nontender. ASSESSMENT/DISCHARGE DIAGNOSES: 1. Septic shock. 2. Right upper lobe infiltrate. 3. End stage renal disease on hemodialysis. SECONDARY DIAGNOSES: 1. Coronary artery disease. 2. Diastolic heart failure. 3. Chronic obstructive pulmonary disease (COPD) with chronic oxygen needs. 4. Diabetes. 5. Peripheral vascular disease with iliac and celiac artery stents. 6. Neuropathy. 7. Gout. PLAN: The patient will be discharged back to [facility]. Diet is renal, carbohydrate consistent, soft, 2-gram sodium diet. Activity is with walker. The patient will need physical therapy further strengthening and conditioning. MEDICATIONS: As follows: - acetaminophen 650 mg by mouth every 4 hours as needed for pain or fever - acetaminophen 650 mg via suppository per rectum every 4 hours as needed for pain or fever - hydrocodone 5/325 one to two by mouth every 4 hours as needed for pain - albuterol sulfate via nebulizer every 6 hours as needed for dyspnea - DuoNeb every 6 hours as needed for shortness of breath - aspirin 81 mg daily - Lipitor 20 mg by mouth at night - Bisacodyl 10 mg suppository per rectum daily as needed for constipation - calcium acetate 667 mg by mouth before meals - Plavix 75 mg by mouth daily - doxycycline hyclate 100 mg by mouth twice a day - enema daily as needed for constipation - vitamin D 50,000 International Units by mouth as directed - Uloric 40 mg by mouth daily - gabapentin 300 mg by mouth twice a day - guaifenesin 10 mL by mouth every 6 hours as needed for cough - insulin sliding scale subcutaneous before meals - Lantus 10 units subcutaneously at night - milk of magnesia 30 mL by mouth daily as needed for constipation - multivitamin one daily - nitroglycerin 0.4 mg as needed for chest pain - Protonix 40 mg daily - MiraLAX 17 grams by mouth daily - prednisone 5 mg by mouth daily The patient is discharged in stable and satisfactory condition.
== END 2016-12-26 11:15 | DRG 640 ==
LOC: M ED 20:03 → EDBD 20:03 → M ED INP 23:58 → M PCU 12-11 21:46 → M ICU 12-15 14:25 → M MSPAV 12-22 19:38
PROVIDERS: ADMIT Internal Medicine; ATTEND Family Medicine
PROC: 5A1D60Z (ICD-10-PCS; principal; 2016-12-11)
PROC: 02HV33Z Insertion of Infusion Device into Superior Vena Cava, Percutaneous Approach (ICD-10-PCS; 2016-12-16)
DX: E87.70 Fluid overload, unspecified (principal); N18.6 End stage renal disease; J18.9 Pneumonia, unspecified organism; A41.9 Sepsis, unspecified organism; R65.21 Severe sepsis with septic shock; G93.40 Encephalopathy, unspecified; I50.32 Chronic diastolic (congestive) heart failure; J44.1 Chronic obstructive pulmonary disease with (acute) exacerbation; J44.0 Chronic obstructive pulmonary disease with (acute) lower respiratory infection; E46 Unspecified protein-calorie malnutrition; Z66 Do not resuscitate; I25.10 Atherosclerotic heart disease of native coronary artery without angina pectoris; E78.5 Hyperlipidemia, unspecified; E11.22 Type 2 diabetes mellitus with diabetic chronic kidney disease; E87.5 Hyperkalemia; D63.1 Anemia in chronic kidney disease; E11.51 Type 2 diabetes mellitus with diabetic peripheral angiopathy without gangrene; E87.1 Hypo-osmolality and hyponatremia; K59.00 Constipation, unspecified; E11.40 Type 2 diabetes mellitus with diabetic neuropathy, unspecified; I48.91 Unspecified atrial fibrillation; K21.9 Gastro-esophageal reflux disease without esophagitis; E83.52 Hypercalcemia; E83.41 Hypermagnesemia; M10.30 Gout due to renal impairment, unspecified site; Z99.81 Dependence on supplemental oxygen; Z99.2 Dependence on renal dialysis; Z95.5 Presence of coronary angioplasty implant and graft; I25.2 Old myocardial infarction; Z79.4 Long term (current) use of insulin; Z79.82 Long term (current) use of aspirin; Z79.899 Other long term (current) drug therapy; Z89.421 Acquired absence of other right toe(s); Z89.422 Acquired absence of other left toe(s); Z87.891 Personal history of nicotine dependence; Z95.820 Peripheral vascular angioplasty status with implants and grafts; Y95 Nosocomial condition

== ENCOUNTER → 2016-12-10 | Outpatient (REF) ==
[2016-12-10 07:46] LABS: BASO % 0.3 % (0.0-1.0); EOS # 0.4 K/mm3 (0.0-0.50); EOS % 3.8 % (0.0-3.0); LARGE UNSTAINED CELL # 0.1 K/mm3 (0.0-0.4); LARGE UNSTAINED CELL % 0.9 % (0.0-4.0); LYMPH # 1.5 K/mm3 (1.5-4.5); LYMPH % 12.8 % (24.0-44.0); MEAN CORPUSCULAR HEMOGLOBIN 30.8 pg (27.0-33.0); MEAN CORPUSCULAR HGB CONC 30.6 g/dl (32.0-36.5); MEAN CORPUSCULAR VOLUME 100.7 fl (80.0-96.0); MONO # 0.4 K/mm3 (0.0-0.8); MONO % 3.8 % (0.0-5.0); NEUTROPHILS # 8.6 K/mm3 (1.8-7.7); NEUTROPHILS % 78.4 % (36.0-66.0); PLATELET COUNT, AUTOMATED 229 k/mm3 (150-450); RED CELL DISTRIBUTION WIDTH 15.7 % (11.5-14.5)
== END ==
LOC: SKLAB3 07:00
PROVIDERS: ATTEND Family Medicine
DX: D72.829 Elevated white blood cell count, unspecified (principal)

== ENCOUNTER → 2016-12-30 | Outpatient (REF) ==
[~2016-12-30] MED LIST changes: +CEFT1INJ3 INJ; +DOXY100T PO; +GUAI100S7 PO
== END ==
LOC: SKLAB3 07:00
PROVIDERS: ATTEND Family Medicine
DX: R50.9 Fever, unspecified (principal); D11.9 Benign neoplasm of major salivary gland, unspecified; I25.10 Atherosclerotic heart disease of native coronary artery without angina pectoris

== ENCOUNTER → 2017-01-06 | Outpatient (REF) ==
[2017-01-06 09:58] LABS: MEAN CORPUSCULAR HEMOGLOBIN 30.9 pg (27.0-33.0); MEAN CORPUSCULAR HGB CONC 29.1 g/dl (32.0-36.5); MEAN CORPUSCULAR VOLUME 106.1 fl (80.0-96.0); PLATELET COUNT, AUTOMATED 370 10^3/uL (150-450); RED CELL DISTRIBUTION WIDTH 18.4 % (11.5-14.5); WHITE BLOOD COUNT 10.2 10^3/uL (4.0-10.0)
[2017-01-06 10:09] LABS: ADD MANUAL DIFFER YES; DIFF SLIDE NUMBER 146
[2017-01-06 10:25] LABS: ANISOCYTOSIS 2+; BASOPHILS 1 % (0-4); EOSINOPHILS 7 % (0-5)
--- NOTE | 2017-01-06 16:41 | REP ---
CHEST, ONE VIEW: HISTORY: Fever. Comparison 12/24/2016. A diffuse increase in interstitial markings is present in the lungs, unchanged compared to the previous study. Increased density is present in the right lower lobe consistent with atelectasis or infiltrate. The heart is normal in size. The pulmonary vasculature is prominent. A catheter is present in the superior vena cava. IMPRESSION: 1. There is an increase in interstitial markings in the lungs that represents chronic interstitial change. The possibility of superimposed interstitial edema cannot be excluded. 2. Right lower lobe atelectasis or infiltrate. Signed by Alin Luke MD 01/06/2017 04:43 P
== END ==
LOC: SKLAB3 09:07
PROVIDERS: ATTEND Family Medicine
DX: R50.9 Fever, unspecified (principal)

== ENCOUNTER → 2017-03-28 | Outpatient (REF) | payer MEDICARE, MEDICAID ==
--- NOTE | 2017-03-28 16:48 | REP ---
Left knee five views: There is demineralization. There is no fracture or effusion. There are vascular atheromatous calcifications. Joint spaces are unremarkable. Impression: Demineralization. No fracture or effusion. Signed by Kris Hoffmann MD 03/28/2017 04:40 P
== END ==
LOC: M RAD 15:28
PROVIDERS: ATTEND Family Medicine
DX: M79.89 Other specified soft tissue disorders (principal)

== ENCOUNTER → 2017-04-01 | Outpatient (REF) | payer MEDICARE, MEDICAID | LOC: SKLAB3 13:46 | PROVIDERS: ATTEND Family Medicine | DX: E11.9 Type 2 diabetes mellitus without complications (principal) ==

== ENCOUNTER → 2017-04-14 | Outpatient (REF) | payer MEDICARE, MEDICAID ==
[2017-04-14 15:05] LABS: BASO % 0.3 % (0.0-1.0); EOS # 0.1 10^3/uL (0.0-0.50); EOS % 0.5 % (0.0-3.0); HEMATOCRIT 32.1 % (42.0-52.0); HEMOGLOBIN 9.7 g/dl (14.0-18.0); IMMATURE GRANULOCYTE # 0.1 10^3/uL (0-0); IMMATURE GRANULOCYTE % 0.8 % (0-0); LYMPH # 1.7 10^3/uL (1.5-4.5); LYMPH % 14.5 % (24.0-44.0); MEAN CORPUSCULAR HEMOGLOBIN 31.4 pg (27.0-33.0); MEAN CORPUSCULAR HGB CONC 30.2 g/dl (32.0-36.5); MEAN CORPUSCULAR VOLUME 103.9 fl (80.0-96.0); MONO # 1.4 10^3/uL (0.0-0.8); MONO % 11.7 % (0.0-5.0); NEUTROPHILS # 8.5 10^3/uL (1.8-7.7); NEUTROPHILS % 72.2 % (36.0-66.0); PLATELET COUNT, AUTOMATED 249 10^3/uL (150-450); RED BLOOD COUNT 3.09 10^6/uL (4.30-6.10); RED CELL DISTRIBUTION WIDTH 15.9 % (11.5-14.5); WHITE BLOOD COUNT 11.7 10^3/uL (4.0-10.0)
== END ==
LOC: SKLAB3 13:15
DX: R09.89 Other specified symptoms and signs involving the circulatory and respiratory systems (principal); R06.02 Shortness of breath; R53.83 Other fatigue

== ENCOUNTER 2017-04-15 00:29 | Inpatient (IN) | payer MEDICARE, MEDICAID ==
[2017-04-15 02:20] LABS: BASO # 0.1 10^3/uL (0.0-0.2); BASO % 0.3 % (0.0-1.0); EOS % 0.1 % (0.0-3.0); HEMATOCRIT 32.2 % (42.0-52.0); HEMOGLOBIN 9.7 g/dl (14.0-18.0); IMMATURE GRANULOCYTE # 0.1 10^3/uL (0-0); IMMATURE GRANULOCYTE % 0.7 % (0-0); MEAN CORPUSCULAR HEMOGLOBIN 31.4 pg (27.0-33.0); MEAN CORPUSCULAR HGB CONC 30.1 g/dl (32.0-36.5); MEAN CORPUSCULAR VOLUME 104.2 fl (80.0-96.0); MONO # 1.5 10^3/uL (0.0-0.8); MONO % 9.2 % (0.0-5.0); NEUTROPHILS # 13.4 10^3/uL (1.8-7.7); NEUTROPHILS % 83.7 % (36.0-66.0); PLATELET COUNT, AUTOMATED 261 10^3/uL (150-450); RED BLOOD COUNT 3.09 10^6/uL (4.30-6.10); RED CELL DISTRIBUTION WIDTH 16.1 % (11.5-14.5)
[2017-04-15 02:40] LABS: ANION GAP 11 MEQ/L (8-16); BLOOD UREA NITROGEN 54 MG/DL (7-18); CALCIUM LEVEL 9.7 MG/DL (8.8-10.2); CARBON DIOXIDE LEVEL 28 MEQ/L (21-32); CHLORIDE LEVEL 102 MEQ/L (98-107); CPK CREATINE PHOSPHOKINASE 64 U/L (39-308); CREATININE FOR GFR 8.06 MG/DL (0.70-1.30); GLOMERULAR FILTRATION RATE 6.9 (>35); GLUCOSE, FASTING 69 MG/DL (83-110); POTASSIUM SERUM 4.5 MEQ/L (3.5-5.1); SODIUM LEVEL 141 MEQ/L (136-145); TROPONIN I 0.05 NG/ML (< 0.10)
[2017-04-15 02:53] LABS: CK-MB VALUE MASS 1.4 NG/ML (0.0-3.6); MB/CK RELATIVE INDEX 2.18 (< OR =4); NT-PRO BNP 84774 PG/ML (<450)
[2017-04-15 02:55] LABS: LACTIC ACID SEPSIS PROTOCOL 2.7 MMOL/L (0.4-2.0)
[2017-04-15] MEDS: FUROSEMIDE 100 MG/10 ML VIAL (J1940) IV (03:00)
[2017-04-15] MEDS: NITROGLYCERIN 2% OINT 1 GM *U/D* PKT TOP (03:00)
[2017-04-15] MEDS: DEXTROSE 50% 50 ML SYRINGE IV (03:08)
[2017-04-15 03:39] LABS: VENOUS BASE EXCESS -1.8 (-2.0-2.0); VENOUS HCO3 27.9 MEQ/L (23.0-27.0); VENOUS O2 SATURATION 57.8 % (60.0-80.0); VENOUS PARTIAL PRESSURE CO2 77.2 mmHg (38.0-50.0); VENOUS PARTIAL PRESSURE O2 35.6 mmHg (30.0-50.0); VENOUS PH 7.176 UNITS (7.330-7.430); VENOUS STANDARD HCO3 22.3 MEQ/L; VENOUS TOTAL CO2 30.3 MEQ/L (24.0-28.0)
[2017-04-15 05:49] LABS: HEMATOCRIT 32.9 % (42.0-52.0); HEMOGLOBIN 10.1 g/dl (14.0-18.0); MEAN CORPUSCULAR HEMOGLOBIN 31.7 pg (27.0-33.0); MEAN CORPUSCULAR HGB CONC 30.7 g/dl (32.0-36.5); MEAN CORPUSCULAR VOLUME 103.1 fl (80.0-96.0); PLATELET COUNT, AUTOMATED 270 10^3/uL (150-450); RED BLOOD COUNT 3.19 10^6/uL (4.30-6.10); RED CELL DISTRIBUTION WIDTH 15.9 % (11.5-14.5)
[2017-04-15] MEDS: PIPERACILLIN/TAZOBACTAM SOD 2.25 GM in APPROPRIATE DILUENT 1 EA IV ×2 (05:53→18:00)
[2017-04-15] MEDS: HEPARIN SOD (PORCINE) 5000 UNITS/ML VIAL SC ×3 (05:54→21:49)
[2017-04-15] MEDS: methylPREDNISolone INJ 125 MG/2 ML VIAL (J2930) IV (05:54)
[2017-04-15 06:07] LABS: ALBUMIN 3.1 GM/DL (3.2-5.2); ANION GAP 11 MEQ/L (8-16); BLOOD UREA NITROGEN 58 MG/DL (7-18); CALCIUM LEVEL 9.5 MG/DL (8.8-10.2); CARBON DIOXIDE LEVEL 28 MEQ/L (21-32); CHLORIDE LEVEL 100 MEQ/L (98-107); CREATININE FOR GFR 8.56 MG/DL (0.70-1.30); GLOMERULAR FILTRATION RATE 6.4 (>35); GLUCOSE, FASTING 172 MG/DL (83-110); PHOSPHORUS LEVEL 6.2 MG/DL (2.5-4.9); SODIUM LEVEL 139 MEQ/L (136-145)
[2017-04-15 06:20] LABS: LACTIC ACID SEPSIS PROTOCOL 2.6 MMOL/L (0.4-2.0)
[2017-04-15 06:20] LABS: POTASSIUM SERUM 5.5 MEQ/L (3.5-5.1)
[2017-04-15 07:33] LABS: ABG BASE EXCESS -1.7 (-2.0-2.0); ABG HCO3 25.2 MEQ/L (22.0-26.0); ABG O2 SATURATION 97.2 % (95.0-99.0); ABG PARTIAL PRESSURE CO2 52.7 mmHg (35.0-45.0); ABG PARTIAL PRESSURE O2 100.5 mmHg (75.0-100.0); ABG STANDARD HCO3 23.1 MEQ/L (22.0-26.0); ABG TOTAL CO2 26.8 MEQ/L (23.0-31.0); ABG pH (ARTERIAL) 7.297 UNITS (7.350-7.450)
[2017-04-15] MEDS: CALCIUM ACETATE 667 MG GELCAP PO ×2 (08:00→12:08)
[2017-04-15] MEDS: CLOPIDOGREL 75 MG TAB PO (09:00)
[2017-04-15] MEDS ORDERED: GLUCOSE 4 GM CHEW TABLET PO (10:00)
[2017-04-15] MEDS ORDERED: DEXTROSE 50% 50 ML SYRINGE IV (10:00)
[2017-04-15] MEDS ORDERED: GLUCAGON FOR INJ 1 MG VIAL (J1610) SC (10:00)
[2017-04-15] MEDS: VANCOMYCIN HCL 1,000 MG, VIAL MATE ADAPTER 1 EACH in D5W 250 ML IV (10:30)
[2017-04-15] MEDS ORDERED: AMIODARONE HCL 150 MG/100 ML PREMIXED BAG (NEXTERONE) As Ordered (10:58)
[2017-04-15] MEDS: AMIODARONE HCL 150 MG in APPROPRIATE DILUENT 1 EA IV (10:59)
[2017-04-15] MEDS: PANTOPRAZOLE 40MG INJ (PROTONIX) (C9113) IV (11:45)
[2017-04-15] MEDS: methylPREDNISolone INJ 40 MG/1 ML VIAL (J2920) IV ×2 (12:00→17:30)
[2017-04-15] MEDS: HumaLOG INSULIN (NovoLOG) PER UNIT SC ×2 (12:08→17:30)
[2017-04-15 12:12] LABS: BEDSIDE GLUCOSE 170 MG/DL (83-110)
[2017-04-15 13:14] LABS: ABG BASE EXCESS -4.9 (-2.0-2.0); ABG O2 SATURATION 96.9 % (95.0-99.0); ABG PARTIAL PRESSURE CO2 49.2 mmHg (35.0-45.0); ABG PARTIAL PRESSURE O2 98.7 mmHg (75.0-100.0); ABG STANDARD HCO3 20.4 MEQ/L (22.0-26.0); ABG TOTAL CO2 23.5 MEQ/L (23.0-31.0); ABG pH (ARTERIAL) 7.269 UNITS (7.350-7.450)
[2017-04-15] MEDS: CHECK TO SEE IF PATIENT IS RECEIVING DIALYSIS TODAY AND REFER TO THE VANCOMYCIN ORDER XX (14:12)
[2017-04-15 17:24] LABS: BEDSIDE GLUCOSE 234 MG/DL (83-110)
[2017-04-15 23:44] LABS: BEDSIDE GLUCOSE 153 MG/DL (83-110)
[2017-04-16] MEDS: methylPREDNISolone INJ 40 MG/1 ML VIAL (J2920) IV ×4 (00:09→17:18)
[2017-04-16] MEDS: HumaLOG INSULIN (NovoLOG) PER UNIT SC ×4 (00:09→17:19)
[2017-04-16 05:31] LABS: ALBUMIN 2.7 GM/DL (3.2-5.2); ANION GAP 12 MEQ/L (8-16); BLOOD UREA NITROGEN 61 MG/DL (7-18); CALCIUM LEVEL 8.8 MG/DL (8.8-10.2); CARBON DIOXIDE LEVEL 24 MEQ/L (21-32); CHLORIDE LEVEL 100 MEQ/L (98-107); CREATININE FOR GFR 7.53 MG/DL (0.70-1.30); GLOMERULAR FILTRATION RATE 7.4 (>35); GLUCOSE, FASTING 173 MG/DL (83-110); PHOSPHORUS LEVEL 5.6 MG/DL (2.5-4.9); SODIUM LEVEL 136 MEQ/L (136-145)
[2017-04-16 05:35] LABS: POTASSIUM SERUM 6.4 MEQ/L (3.5-5.1)
[2017-04-16 05:45] LABS: HEMATOCRIT 30.8 % (42.0-52.0); HEMOGLOBIN 9.7 g/dl (14.0-18.0); MEAN CORPUSCULAR HGB CONC 31.5 g/dl (32.0-36.5); MEAN CORPUSCULAR VOLUME 101.7 fl (80.0-96.0); PLATELET COUNT, AUTOMATED 247 10^3/uL (150-450); RED BLOOD COUNT 3.03 10^6/uL (4.30-6.10); RED CELL DISTRIBUTION WIDTH 15.9 % (11.5-14.5)
[2017-04-16] MEDS: HEPARIN SOD (PORCINE) 5000 UNITS/ML VIAL SC ×3 (05:53→21:48)
[2017-04-16] MEDS: PIPERACILLIN/TAZOBACTAM SOD 2.25 GM in APPROPRIATE DILUENT 1 EA IV ×3 (06:08→21:49)
[2017-04-16] MEDS: PANTOPRAZOLE 40MG INJ (PROTONIX) (C9113) IV (11:36)
[2017-04-16 11:40] LABS: BEDSIDE GLUCOSE 97 MG/DL (83-110)
[2017-04-16] MEDS: HEPARIN 1,000 UNITS/ML 10ML VIAL (FOR RADIOLOGY& DIALYSIS ONLY) IV (11:45)
[2017-04-16] MEDS: HEPARIN 1,000 UNITS/ML 10ML VIAL (FOR RADIOLOGY& DIALYSIS ONLY) XX (11:45)
[2017-04-16 13:12] LABS: ABG BASE EXCESS -1.6 (-2.0-2.0); ABG HCO3 23.2 MEQ/L (22.0-26.0); ABG PARTIAL PRESSURE CO2 39.5 mmHg (35.0-45.0); ABG STANDARD HCO3 23.1 MEQ/L (22.0-26.0); ABG TOTAL CO2 24.4 MEQ/L (23.0-31.0); ABG pH (ARTERIAL) 7.387 UNITS (7.350-7.450)
[2017-04-16] MEDS: CHECK TO SEE IF PATIENT IS RECEIVING DIALYSIS TODAY AND REFER TO THE VANCOMYCIN ORDER XX (16:00)
[2017-04-16] MEDS: VANCOMYCIN HCL 1,000 MG, VIAL MATE ADAPTER 1 EACH in D5W 250 ML IV (16:29)
[2017-04-16 17:23] LABS: BEDSIDE GLUCOSE 157 MG/DL (83-110)
[2017-04-17 00:09] LABS: BEDSIDE GLUCOSE 132 MG/DL (83-110)
[2017-04-17] MEDS: methylPREDNISolone INJ 40 MG/1 ML VIAL (J2920) IV ×5 (01:01→23:58)
[2017-04-17 05:13] LABS: HEMATOCRIT 31.9 % (42.0-52.0); MEAN CORPUSCULAR HEMOGLOBIN 31.6 pg (27.0-33.0); MEAN CORPUSCULAR HGB CONC 31.3 g/dl (32.0-36.5); MEAN CORPUSCULAR VOLUME 100.9 fl (80.0-96.0); PLATELET COUNT, AUTOMATED 247 10^3/uL (150-450); RED BLOOD COUNT 3.16 10^6/uL (4.30-6.10); RED CELL DISTRIBUTION WIDTH 15.8 % (11.5-14.5); WHITE BLOOD COUNT 20.4 10^3/uL (4.0-10.0)
[2017-04-17 05:23] LABS: ALBUMIN 2.5 GM/DL (3.2-5.2); ANION GAP 15 MEQ/L (8-16); BLOOD UREA NITROGEN 45 MG/DL (7-18); CALCIUM LEVEL 8.6 MG/DL (8.8-10.2); CARBON DIOXIDE LEVEL 22 MEQ/L (21-32); CHLORIDE LEVEL 100 MEQ/L (98-107); CREATININE FOR GFR 4.72 MG/DL (0.70-1.30); GLOMERULAR FILTRATION RATE 12.7 (>35); GLUCOSE, FASTING 171 MG/DL (83-110); PHOSPHORUS LEVEL 5.7 MG/DL (2.5-4.9); SODIUM LEVEL 137 MEQ/L (136-145); VANCOMYCIN RANDOM 23.2 UG/ML
[2017-04-17 05:57] LABS: BEDSIDE GLUCOSE 170 MG/DL (83-110)
[2017-04-17 05:58] LABS: ABG BASE EXCESS -3.1 (-2.0-2.0); ABG HCO3 22.4 MEQ/L (22.0-26.0); ABG O2 SATURATION 96.8 % (95.0-99.0); ABG PARTIAL PRESSURE CO2 42.1 mmHg (35.0-45.0); ABG PARTIAL PRESSURE O2 96.3 mmHg (75.0-100.0); ABG STANDARD HCO3 21.9 MEQ/L (22.0-26.0); ABG TOTAL CO2 23.7 MEQ/L (23.0-31.0); ABG pH (ARTERIAL) 7.344 UNITS (7.350-7.450)
[2017-04-17] MEDS: HumaLOG INSULIN (NovoLOG) PER UNIT SC ×6 (06:00→21:00)
[2017-04-17] MEDS: PIPERACILLIN/TAZOBACTAM SOD 2.25 GM in APPROPRIATE DILUENT 1 EA IV ×3 (06:11→21:22)
[2017-04-17] MEDS: HEPARIN SOD (PORCINE) 5000 UNITS/ML VIAL SC ×3 (06:11→21:22)
[2017-04-17 11:23] LABS: BEDSIDE GLUCOSE 225 MG/DL (83-110)
[2017-04-17] MEDS: PANTOPRAZOLE 40MG INJ (PROTONIX) (C9113) IV (11:55)
[2017-04-17] MEDS: CARBAMIDE PEROXIDE 6.5% OTIC SOLN 15ML AU ×2 (11:56→21:22)
[2017-04-17] MEDS: CHECK TO SEE IF PATIENT IS RECEIVING DIALYSIS TODAY AND REFER TO THE VANCOMYCIN ORDER XX (16:00)
[2017-04-17 16:52] LABS: BEDSIDE GLUCOSE 185 MG/DL (83-110)
[2017-04-17] MEDS: guaiFENesin SYRUP 200 MG/10 ML UDC PO ×2 (20:09→23:59)
[2017-04-17 21:36] LABS: BEDSIDE GLUCOSE 153 MG/DL (83-110)
[2017-04-18] MEDS: ALBUTEROL SULFATE 2.5 MG/0.5 ML INH NEB SOLN INH (05:25)
[2017-04-18] MEDS: guaiFENesin SYRUP 200 MG/10 ML UDC PO ×4 (06:32→23:47)
[2017-04-18] MEDS: PIPERACILLIN/TAZOBACTAM SOD 2.25 GM in APPROPRIATE DILUENT 1 EA IV ×3 (06:33→21:08)
[2017-04-18] MEDS: methylPREDNISolone INJ 40 MG/1 ML VIAL (J2920) IV ×4 (06:33→23:47)
[2017-04-18] MEDS: HEPARIN SOD (PORCINE) 5000 UNITS/ML VIAL SC ×3 (06:33→21:09)
[2017-04-18] MEDS: HumaLOG INSULIN (NovoLOG) PER UNIT SC ×4 (07:35→21:00)
[2017-04-18 07:45] LABS: BEDSIDE GLUCOSE 206 MG/DL (83-110)
[2017-04-18] MEDS ORDERED: DARBEPOETIN 100 MCG/0.5 ML *DIALYSIS* SYRINGE (J0882) IV (08:00)
[2017-04-18 08:37] LABS: BASO % 0.1 % (0.0-1.0); HEMATOCRIT 29.4 % (42.0-52.0); HEMOGLOBIN 9.1 g/dl (14.0-18.0); IMMATURE GRANULOCYTE # 0.2 10^3/uL (0-0); IMMATURE GRANULOCYTE % 1.1 % (0-0); LYMPH # 0.5 10^3/uL (1.5-4.5); LYMPH % 3.6 % (24.0-44.0); MEAN CORPUSCULAR HEMOGLOBIN 31.4 pg (27.0-33.0); MEAN CORPUSCULAR VOLUME 101.4 fl (80.0-96.0); MONO # 0.2 10^3/uL (0.0-0.8); MONO % 1.6 % (0.0-5.0); NEUTROPHILS # 13.3 10^3/uL (1.8-7.7); NEUTROPHILS % 93.6 % (36.0-66.0); PLATELET COUNT, AUTOMATED 234 10^3/uL (150-450); RED CELL DISTRIBUTION WIDTH 15.6 % (11.5-14.5); WHITE BLOOD COUNT 14.2 10^3/uL (4.0-10.0)
[2017-04-18 09:02] LABS: ALBUMIN 2.6 GM/DL (3.2-5.2); ANION GAP 14 MEQ/L (8-16); BLOOD UREA NITROGEN 88 MG/DL (7-18); CALCIUM LEVEL 8.4 MG/DL (8.8-10.2); CARBON DIOXIDE LEVEL 25 MEQ/L (21-32); CHLORIDE LEVEL 96 MEQ/L (98-107); CREATININE FOR GFR 6.77 MG/DL (0.70-1.30); GLOMERULAR FILTRATION RATE 8.4 (>35); GLUCOSE, FASTING 236 MG/DL (83-110); PHOSPHORUS LEVEL 7.2 MG/DL (2.5-4.9); POTASSIUM SERUM 4.4 MEQ/L (3.5-5.1); SODIUM LEVEL 135 MEQ/L (136-145)
[2017-04-18] MEDS: CARBAMIDE PEROXIDE 6.5% OTIC SOLN 15ML AU ×2 (09:46→21:09)
[2017-04-18 12:10] LABS: BEDSIDE GLUCOSE 167 MG/DL (83-110)
[2017-04-18] MEDS: FLUCONAZOLE 100 MG TAB PO (12:11)
[2017-04-18] MEDS: PANTOPRAZOLE 40MG INJ (PROTONIX) (C9113) IV (12:14)
[2017-04-18] MEDS: CHECK TO SEE IF PATIENT IS RECEIVING DIALYSIS TODAY AND REFER TO THE VANCOMYCIN ORDER XX (16:00)
[2017-04-18] MEDS: VANCOMYCIN HCL 750 MG, VIAL MATE ADAPTER 1 EACH in D5W 250 ML IV (16:27)
[2017-04-18 16:58] LABS: BEDSIDE GLUCOSE 203 MG/DL (83-110)
[2017-04-18 21:22] LABS: BEDSIDE GLUCOSE 206 MG/DL (83-110)
[2017-04-19] MEDS: PIPERACILLIN/TAZOBACTAM SOD 2.25 GM in APPROPRIATE DILUENT 1 EA IV ×3 (05:08→21:16)
[2017-04-19] MEDS: guaiFENesin SYRUP 200 MG/10 ML UDC PO ×3 (05:08→17:44)
[2017-04-19] MEDS: HEPARIN SOD (PORCINE) 5000 UNITS/ML VIAL SC ×3 (05:08→21:15)
[2017-04-19] MEDS: methylPREDNISolone INJ 40 MG/1 ML VIAL (J2920) IV (05:08)
[2017-04-19 06:22] LABS: HEMATOCRIT 32.2 % (42.0-52.0); MEAN CORPUSCULAR HEMOGLOBIN 31.2 pg (27.0-33.0); MEAN CORPUSCULAR HGB CONC 31.1 g/dl (32.0-36.5); MEAN CORPUSCULAR VOLUME 100.3 fl (80.0-96.0); PLATELET COUNT, AUTOMATED 219 10^3/uL (150-450); RED BLOOD COUNT 3.21 10^6/uL (4.30-6.10); RED CELL DISTRIBUTION WIDTH 15.4 % (11.5-14.5)
[2017-04-19 06:44] LABS: ALBUMIN 2.5 GM/DL (3.2-5.2); ANION GAP 12 MEQ/L (8-16); BLOOD UREA NITROGEN 54 MG/DL (7-18); CALCIUM LEVEL 8.5 MG/DL (8.8-10.2); CARBON DIOXIDE LEVEL 24 MEQ/L (21-32); CHLORIDE LEVEL 98 MEQ/L (98-107); GLOMERULAR FILTRATION RATE 13.5 (>35); GLUCOSE, FASTING 317 MG/DL (83-110); PHOSPHORUS LEVEL 4.2 MG/DL (2.5-4.9); POTASSIUM SERUM 3.9 MEQ/L (3.5-5.1); SODIUM LEVEL 134 MEQ/L (136-145)
[2017-04-19] MEDS: HumaLOG INSULIN (NovoLOG) PER UNIT SC ×4 (07:45→21:00)
[2017-04-19] MEDS: FLUCONAZOLE 100 MG TAB PO (08:42)
[2017-04-19] MEDS: CARBAMIDE PEROXIDE 6.5% OTIC SOLN 15ML AU ×2 (08:42→21:15)
[2017-04-19] MEDS: PANTOPRAZOLE 40MG INJ (PROTONIX) (C9113) IV (11:11)
[2017-04-19 11:42] LABS: BEDSIDE GLUCOSE 234 MG/DL (83-110)
[2017-04-19] MEDS: predniSONE 20 MG TAB PO (12:22)
[2017-04-19] MEDS: CHECK TO SEE IF PATIENT IS RECEIVING DIALYSIS TODAY AND REFER TO THE VANCOMYCIN ORDER XX (16:00)
[2017-04-19 17:16] LABS: BEDSIDE GLUCOSE 145 MG/DL (83-110)
[2017-04-19 21:32] LABS: BEDSIDE GLUCOSE 197 MG/DL (83-110)
[2017-04-20] MEDS: guaiFENesin SYRUP 200 MG/10 ML UDC PO ×4 (00:12→17:23)
[2017-04-20] MEDS: HEPARIN SOD (PORCINE) 5000 UNITS/ML VIAL SC ×3 (05:19→20:44)
[2017-04-20] MEDS: PIPERACILLIN/TAZOBACTAM SOD 2.25 GM in APPROPRIATE DILUENT 1 EA IV (05:19)
[2017-04-20 05:59] LABS: HEMATOCRIT 32.4 % (42.0-52.0); HEMOGLOBIN 10.3 g/dl (14.0-18.0); MEAN CORPUSCULAR HEMOGLOBIN 31.3 pg (27.0-33.0); MEAN CORPUSCULAR HGB CONC 31.8 g/dl (32.0-36.5); MEAN CORPUSCULAR VOLUME 98.5 fl (80.0-96.0); PLATELET COUNT, AUTOMATED 239 10^3/uL (150-450); RED BLOOD COUNT 3.29 10^6/uL (4.30-6.10); RED CELL DISTRIBUTION WIDTH 15.2 % (11.5-14.5)
[2017-04-20] MEDS ORDERED: AUGMENTIN 500 MG TAB PO (06:00)
[2017-04-20 06:25] LABS: ALBUMIN 2.4 GM/DL (3.2-5.2); ANION GAP 15 MEQ/L (8-16); BLOOD UREA NITROGEN 85 MG/DL (7-18); CALCIUM LEVEL 8.2 MG/DL (8.8-10.2); CARBON DIOXIDE LEVEL 23 MEQ/L (21-32); CHLORIDE LEVEL 97 MEQ/L (98-107); CREATININE FOR GFR 6.37 MG/DL (0.70-1.30); GLUCOSE, FASTING 247 MG/DL (83-110); PHOSPHORUS LEVEL 5.8 MG/DL (2.5-4.9); POTASSIUM SERUM 4.5 MEQ/L (3.5-5.1); SODIUM LEVEL 135 MEQ/L (136-145); VANCOMYCIN RANDOM 22.8 UG/ML
[2017-04-20] MEDS: HumaLOG INSULIN (NovoLOG) PER UNIT SC ×4 (07:34→20:41)
[2017-04-20] MEDS: predniSONE 20 MG TAB PO (08:54)
[2017-04-20] MEDS: FLUCONAZOLE 100 MG TAB PO (08:54)
[2017-04-20] MEDS: CARBAMIDE PEROXIDE 6.5% OTIC SOLN 15ML AU ×2 (08:54→20:41)
[2017-04-20] MEDS: HEPARIN 1,000 UNITS/ML 10ML VIAL (FOR RADIOLOGY& DIALYSIS ONLY) XX (10:15)
[2017-04-20] MEDS: HEPARIN 1,000 UNITS/ML 10ML VIAL (FOR RADIOLOGY& DIALYSIS ONLY) IV (10:15)
[2017-04-20] MEDS: PANTOPRAZOLE 40MG TAB (PROTONIX) PO (13:18)
[2017-04-20 13:22] LABS: BEDSIDE GLUCOSE 199 MG/DL (83-110)
[2017-04-20] MEDS: ALBUTEROL SULFATE 2.5 MG/0.5 ML INH NEB SOLN INH ×2 (15:45→21:46)
[2017-04-20] MEDS: CHECK TO SEE IF PATIENT IS RECEIVING DIALYSIS TODAY AND REFER TO THE VANCOMYCIN ORDER XX (16:00)
[2017-04-20] MEDS: AUGMENTIN 500 MG TAB PO (17:23)
[2017-04-20 17:28] LABS: BEDSIDE GLUCOSE 384 MG/DL (83-110)
[2017-04-20 20:29] LABS: BEDSIDE GLUCOSE 268 MG/DL (83-110)
[2017-04-20] MEDS: ACETAMINOPHEN TAB 650MG DOSE (2X325MG) PO (22:12)
[2017-04-21] MEDS: guaiFENesin SYRUP 200 MG/10 ML UDC PO ×4 (05:48→18:43)
[2017-04-21] MEDS: HEPARIN SOD (PORCINE) 5000 UNITS/ML VIAL SC ×3 (05:49→22:00)
[2017-04-21] MEDS: ACETAMINOPHEN TAB 650MG DOSE (2X325MG) PO ×2 (05:49→12:41)
[2017-04-21 06:47] LABS: HEMATOCRIT 33.6 % (42.0-52.0); HEMOGLOBIN 11.1 g/dl (14.0-18.0); MEAN CORPUSCULAR HEMOGLOBIN 31.6 pg (27.0-33.0); MEAN CORPUSCULAR VOLUME 95.7 fl (80.0-96.0); PLATELET COUNT, AUTOMATED 276 10^3/uL (150-450); RED BLOOD COUNT 3.51 10^6/uL (4.30-6.10); RED CELL DISTRIBUTION WIDTH 15.3 % (11.5-14.5); WHITE BLOOD COUNT 17.8 10^3/uL (4.0-10.0)
[2017-04-21 07:09] LABS: ALBUMIN 2.5 GM/DL (3.2-5.2); ANION GAP 11 MEQ/L (8-16); BLOOD UREA NITROGEN 46 MG/DL (7-18); CALCIUM LEVEL 8.3 MG/DL (8.8-10.2); CARBON DIOXIDE LEVEL 26 MEQ/L (21-32); CHLORIDE LEVEL 99 MEQ/L (98-107); CREATININE FOR GFR 4.43 MG/DL (0.70-1.30); GLOMERULAR FILTRATION RATE 13.7 (>35); GLUCOSE, FASTING 214 MG/DL (83-110); PHOSPHORUS LEVEL 2.4 MG/DL (2.5-4.9); POTASSIUM SERUM 3.3 MEQ/L (3.5-5.1); SODIUM LEVEL 136 MEQ/L (136-145)
[2017-04-21] MEDS: predniSONE 20 MG TAB PO (08:12)
[2017-04-21] MEDS: HumaLOG INSULIN (NovoLOG) PER UNIT SC ×4 (08:12→21:00)
[2017-04-21] MEDS: PANTOPRAZOLE 40MG TAB (PROTONIX) PO (08:13)
[2017-04-21] MEDS: FLUCONAZOLE 100 MG TAB PO (08:13)
[2017-04-21 12:24] LABS: BEDSIDE GLUCOSE 182 MG/DL (83-110)
[2017-04-21] MEDS: AUGMENTIN 500 MG TAB PO (16:00)
[2017-04-21] MEDS: CHECK TO SEE IF PATIENT IS RECEIVING DIALYSIS TODAY AND REFER TO THE VANCOMYCIN ORDER XX (16:00)
[2017-04-21 17:25] LABS: BEDSIDE GLUCOSE 194 MG/DL (83-110)
[2017-04-21] MEDS ORDERED: POTASSIUM CHLORIDE 10 MEQ SR TABLET PO (21:00)
[2017-04-22] MEDS: guaiFENesin SYRUP 200 MG/10 ML UDC PO ×5 (00:46→23:09)
[2017-04-22] MEDS: HEPARIN SOD (PORCINE) 5000 UNITS/ML VIAL SC ×3 (05:28→22:44)
[2017-04-22 07:08] LABS: BEDSIDE GLUCOSE 219 MG/DL (83-110)
[2017-04-22] MEDS: HumaLOG INSULIN (NovoLOG) PER UNIT SC ×4 (07:46→22:45)
[2017-04-22] MEDS: PANTOPRAZOLE 40MG TAB (PROTONIX) PO (07:46)
[2017-04-22] MEDS: predniSONE 20 MG TAB PO (07:46)
[2017-04-22] MEDS: FLUCONAZOLE 100 MG TAB PO (07:46)
[2017-04-22 08:41] LABS: HEMATOCRIT 32.6 % (42.0-52.0); HEMOGLOBIN 10.5 g/dl (14.0-18.0); MEAN CORPUSCULAR HEMOGLOBIN 31.7 pg (27.0-33.0); MEAN CORPUSCULAR HGB CONC 32.2 g/dl (32.0-36.5); MEAN CORPUSCULAR VOLUME 98.5 fl (80.0-96.0); PLATELET COUNT, AUTOMATED 275 10^3/uL (150-450); RED BLOOD COUNT 3.31 10^6/uL (4.30-6.10); RED CELL DISTRIBUTION WIDTH 15.6 % (11.5-14.5); WHITE BLOOD COUNT 11.8 10^3/uL (4.0-10.0)
[2017-04-22 09:09] LABS: ALBUMIN 2.6 GM/DL (3.2-5.2); ANION GAP 13 MEQ/L (8-16); BLOOD UREA NITROGEN 69 MG/DL (7-18); CALCIUM LEVEL 7.9 MG/DL (8.8-10.2); CARBON DIOXIDE LEVEL 27 MEQ/L (21-32); CHLORIDE LEVEL 100 MEQ/L (98-107); CREATININE FOR GFR 6.35 MG/DL (0.70-1.30); GLUCOSE, FASTING 221 MG/DL (83-110); PHOSPHORUS LEVEL 3.2 MG/DL (2.5-4.9); POTASSIUM SERUM 3.3 MEQ/L (3.5-5.1); SODIUM LEVEL 140 MEQ/L (136-145)
[2017-04-22] MEDS: ONDANSETRON 4 MG TAB (S0181) PO (11:02)
[2017-04-22] MEDS: HEPARIN 1,000 UNITS/ML 10ML VIAL (FOR RADIOLOGY& DIALYSIS ONLY) IV (12:25)
[2017-04-22] MEDS: HEPARIN 1,000 UNITS/ML 10ML VIAL (FOR RADIOLOGY& DIALYSIS ONLY) XX (12:25)
[2017-04-22 12:30] LABS: BEDSIDE GLUCOSE 148 MG/DL (83-110)
[2017-04-22] MEDS: VANCOMYCIN HCL 750 MG, VIAL MATE ADAPTER 1 EACH in D5W 250 ML IV (12:35)
[2017-04-22] MEDS: CHECK TO SEE IF PATIENT IS RECEIVING DIALYSIS TODAY AND REFER TO THE VANCOMYCIN ORDER XX (14:47)
[2017-04-22] MEDS: AUGMENTIN 500 MG TAB PO (15:39)
[2017-04-22 18:01] LABS: BEDSIDE GLUCOSE 271 MG/DL (83-110)
[2017-04-22 21:37] LABS: BEDSIDE GLUCOSE 402 MG/DL (83-110)
[2017-04-23] MEDS: guaiFENesin SYRUP 200 MG/10 ML UDC PO ×2 (06:23→12:21)
[2017-04-23] MEDS: HEPARIN SOD (PORCINE) 5000 UNITS/ML VIAL SC (06:23)
[2017-04-23 06:30] LABS: HEMOGLOBIN 10.4 g/dl (14.0-18.0); MEAN CORPUSCULAR HEMOGLOBIN 31.4 pg (27.0-33.0); MEAN CORPUSCULAR HGB CONC 31.5 g/dl (32.0-36.5); MEAN CORPUSCULAR VOLUME 99.7 fl (80.0-96.0); PLATELET COUNT, AUTOMATED 276 10^3/uL (150-450); RED BLOOD COUNT 3.31 10^6/uL (4.30-6.10); RED CELL DISTRIBUTION WIDTH 15.9 % (11.5-14.5); WHITE BLOOD COUNT 11.3 10^3/uL (4.0-10.0)
[2017-04-23 06:43] LABS: ANION GAP 9 MEQ/L (8-16); BLOOD UREA NITROGEN 39 MG/DL (7-18); CALCIUM LEVEL 8.4 MG/DL (8.8-10.2); CARBON DIOXIDE LEVEL 24 MEQ/L (21-32); CHLORIDE LEVEL 104 MEQ/L (98-107); CREATININE FOR GFR 5.12 MG/DL (0.70-1.30); GLOMERULAR FILTRATION RATE 11.6 (>35); GLUCOSE, FASTING 358 MG/DL (83-110); POTASSIUM SERUM 4.1 MEQ/L (3.5-5.1); SODIUM LEVEL 137 MEQ/L (136-145)
[2017-04-23] MEDS: predniSONE 10 MG TAB PO (08:30)
[2017-04-23] MEDS: FLUCONAZOLE 100 MG TAB PO (08:30)
[2017-04-23] MEDS: HumaLOG INSULIN (NovoLOG) PER UNIT SC ×2 (08:30→12:21)
[2017-04-23] MEDS: PANTOPRAZOLE 40MG TAB (PROTONIX) PO (08:30)
[2017-04-23 11:57] LABS: BEDSIDE GLUCOSE 214 MG/DL (83-110)
== END 2017-04-23 13:35 | DRG 871 ==
LOC: M MS5PR 04-20 13:24 → M ED 00:29 → M ED INP 03:27 → M ICU 04:57
PROC: 5A1D70Z Performance of Urinary Filtration, Intermittent, Less than 6 Hours Per Day (ICD-10-PCS; principal; 2017-04-15)
PROC: 5A09457 Assistance with Respiratory Ventilation, 24-96 Consecutive Hours, Continuous Positive Airway Pressure (ICD-10-PCS; 2017-04-15)
DX: A41.9 Sepsis, unspecified organism (principal); N18.6 End stage renal disease; I50.33 Acute on chronic diastolic (congestive) heart failure; G93.41 Metabolic encephalopathy; J96.22 Acute and chronic respiratory failure with hypercapnia; J18.9 Pneumonia, unspecified organism; E87.2 Acidosis; B37.49 Other urogenital candidiasis; I13.2 Hypertensive heart and chronic kidney disease with heart failure and with stage 5 chronic kidney disease, or end stage renal disease; Z66 Do not resuscitate; I25.10 Atherosclerotic heart disease of native coronary artery without angina pectoris; E87.6 Hypokalemia; I25.2 Old myocardial infarction; J44.9 Chronic obstructive pulmonary disease, unspecified; E11.22 Type 2 diabetes mellitus with diabetic chronic kidney disease; D63.1 Anemia in chronic kidney disease; R65.20 Severe sepsis without septic shock; E11.51 Type 2 diabetes mellitus with diabetic peripheral angiopathy without gangrene; E11.65 Type 2 diabetes mellitus with hyperglycemia; E11.42 Type 2 diabetes mellitus with diabetic polyneuropathy; M10.30 Gout due to renal impairment, unspecified site; E87.5 Hyperkalemia; Z99.2 Dependence on renal dialysis; Z99.81 Dependence on supplemental oxygen; Z79.4 Long term (current) use of insulin; Z79.52 Long term (current) use of systemic steroids; Z79.899 Other long term (current) drug therapy; Z87.891 Personal history of nicotine dependence; Z95.5 Presence of coronary angioplasty implant and graft; Z89.411 Acquired absence of right great toe; Z89.412 Acquired absence of left great toe; Z89.421 Acquired absence of other right toe(s)

== ENCOUNTER 2017-04-27 18:40 | Inpatient (IN) | payer MEDICARE, MEDICAID ==
[2017-04-27 19:17] LABS: BASO % 0.1 % (0.0-1.0); EOS % 0.2 % (0.0-3.0); HEMATOCRIT 30.6 % (42.0-52.0); HEMOGLOBIN 9.5 g/dl (14.0-18.0); IMMATURE GRANULOCYTE # 0.2 10^3/uL (0-0); IMMATURE GRANULOCYTE % 1.1 % (0-0); LYMPH # 0.4 10^3/uL (1.5-4.5); LYMPH % 2.2 % (24.0-44.0); MONO % 5.4 % (0.0-5.0); NEUTROPHILS # 16.7 10^3/uL (1.8-7.7); PLATELET COUNT, AUTOMATED 191 10^3/uL (150-450); RED BLOOD COUNT 2.97 10^6/uL (4.30-6.10); WHITE BLOOD COUNT 18.3 10^3/uL (4.0-10.0)
[2017-04-27 19:44] LABS: LACTIC ACID SEPSIS PROTOCOL 1.7 MMOL/L (0.4-2.0)
[2017-04-27 19:46] LABS: ALBUMIN 2.5 GM/DL (3.2-5.2); ALBUMIN/GLOBULIN RATIO 0.63 (1.00-1.93); ALKALINE PHOSPHATASE 79 U/L (45-117); ALT/SGPT 15 U/L (12-78); ANION GAP 8 MEQ/L (8-16); AST/SGOT 21 U/L (7-37); BILIRUBIN,DIRECT < 0.1 MG/DL (0.0-0.2); BILIRUBIN,TOTAL 0.4 MG/DL (0.2-1.0); BLOOD UREA NITROGEN 31 MG/DL (7-18); CALCIUM LEVEL 8.2 MG/DL (8.8-10.2); CARBON DIOXIDE LEVEL 26 MEQ/L (21-32); CHLORIDE LEVEL 104 MEQ/L (98-107); CPK CREATINE PHOSPHOKINASE 51 U/L (39-308); CREATININE FOR GFR 4.21 MG/DL (0.70-1.30); GLOMERULAR FILTRATION RATE 14.5 (>35); GLUCOSE, FASTING 306 MG/DL (83-110); POTASSIUM SERUM 4.8 MEQ/L (3.5-5.1); SODIUM LEVEL 138 MEQ/L (136-145); TOTAL PROTEIN 6.5 GM/DL (6.4-8.2); TROPONIN I 0.09 NG/ML (< 0.10)
[2017-04-27 20:12] LABS: CK-MB VALUE MASS 2.5 NG/ML (0.0-3.6); MAGNESIUM LEVEL 1.9 MG/DL (1.8-2.4); NT-PRO BNP 87038 PG/ML (<450)
[2017-04-27] MEDS: PIPERACILLIN/TAZOBACTAM SOD 3.375 GM in APPROPRIATE DILUENT 1 EA IV (20:45)
[2017-04-27] MEDS: HumaLOG INSULIN (NovoLOG) PER UNIT SC (21:00)
[2017-04-27] MEDS: diltiaZEM 125 MG in NS 100 ML IV (22:16)
[2017-04-27] MEDS ORDERED: NITROGLYCERIN 0.4 MG SUBL TABLET SL (22:45)
[2017-04-27] MEDS ORDERED: MOM 30ML SUSPENSION UDC PO (22:45)
[2017-04-27] MEDS ORDERED: IPRATROPIUM 0.5MG/ALBUTEROL 2.5MG INH SOL UD 3ML (DUONEB)(J7620) INH (22:45)
[2017-04-27] MEDS ORDERED: FLEET ENEMA PR (22:45)
[2017-04-27] MEDS ORDERED: BISACODYL 10 MG SUPP PR (22:45)
[2017-04-27] MEDS ORDERED: guaiFENesin DM LIQ 10ML UD PO (22:45)
[2017-04-27] MEDS ORDERED: GLUCAGON FOR INJ 1 MG VIAL (J1610) SC (23:00)
[2017-04-27] MEDS: VANCOMYCIN HCL 1,000 MG, VIAL MATE ADAPTER 1 EACH in D5W 250 ML IV (23:00)
[2017-04-27] MEDS ORDERED: GLUCOSE 4 GM CHEW TABLET PO (23:00)
[2017-04-27] MEDS ORDERED: DEXTROSE 50% 50 ML SYRINGE IV (23:00)
[2017-04-27] MEDS: GABAPENTIN 300 MG CAP PO (23:20)
[2017-04-27] MEDS: ATORVASTATIN 20 MG TAB PO (23:20)
[2017-04-27] MEDS: LEVEMIR (INSULIN DETEMIR) 1 UNITS/0.01ML SC (23:29)
[2017-04-27 23:32] LABS: BEDSIDE GLUCOSE 350 MG/DL (83-110)
[2017-04-27] MEDS ORDERED: VANCOMYCIN INTERMITTENT/PULSE DOSING BY CLINICAL PHARMACIST PER DOSING PROTOCOL XX (23:45)
[2017-04-28] MEDS: ACETAMINOPHEN TAB 650MG DOSE (2X325MG) PO (00:15)
[2017-04-28] MEDS: METOPROLOL TART 25 MG TABLET PO ×3 (00:18→22:33)
[2017-04-28] MEDS: PIPERACILLIN/TAZOBACTAM SOD 2.25 GM in APPROPRIATE DILUENT 1 EA IV ×3 (05:00→23:03)
[2017-04-28] MEDS: HEPARIN SOD (PORCINE) 5000 UNITS/ML VIAL SQ ×3 (06:00→22:34)
[2017-04-28] MEDS: HumaLOG INSULIN (NovoLOG) PER UNIT SC ×4 (06:51→22:35)
[2017-04-28 07:01] LABS: BEDSIDE GLUCOSE 245 MG/DL (83-110)
[2017-04-28 08:08] LABS: BASO % 0.2 % (0.0-1.0); EOS # 0.1 10^3/uL (0.0-0.50); EOS % 0.9 % (0.0-3.0); HEMATOCRIT 29.1 % (42.0-52.0); IMMATURE GRANULOCYTE # 0.1 10^3/uL (0-0); IMMATURE GRANULOCYTE % 1.1 % (0-0); LYMPH % 7.6 % (24.0-44.0); MEAN CORPUSCULAR HEMOGLOBIN 31.9 pg (27.0-33.0); MEAN CORPUSCULAR HGB CONC 30.9 g/dl (32.0-36.5); MEAN CORPUSCULAR VOLUME 103.2 fl (80.0-96.0); MONO # 1.4 10^3/uL (0.0-0.8); MONO % 10.7 % (0.0-5.0); NEUTROPHILS # 10.5 10^3/uL (1.8-7.7); NEUTROPHILS % 79.5 % (36.0-66.0); PLATELET COUNT, AUTOMATED 159 10^3/uL (150-450); RED BLOOD COUNT 2.82 10^6/uL (4.30-6.10); RED CELL DISTRIBUTION WIDTH 16.9 % (11.5-14.5); WHITE BLOOD COUNT 13.2 10^3/uL (4.0-10.0)
[2017-04-28 08:30] LABS: ANION GAP 10 MEQ/L (8-16); BLOOD UREA NITROGEN 40 MG/DL (7-18); CALCIUM LEVEL 8.1 MG/DL (8.8-10.2); CARBON DIOXIDE LEVEL 24 MEQ/L (21-32); CHLORIDE LEVEL 104 MEQ/L (98-107); GLOMERULAR FILTRATION RATE 11.6 (>35); GLUCOSE, FASTING 246 MG/DL (83-110); POTASSIUM SERUM 4.8 MEQ/L (3.5-5.1); SODIUM LEVEL 138 MEQ/L (136-145); VANCOMYCIN RANDOM 24.1 UG/ML
[2017-04-28] MEDS: CALCIUM ACETATE 667 MG GELCAP PO ×3 (08:45→22:35)
[2017-04-28] MEDS: MIRALAX *UNIT DOSE* 17GM PACKET PO (08:45)
[2017-04-28] MEDS: predniSONE 5 MG TAB PO (08:45)
[2017-04-28] MEDS: PANTOPRAZOLE 40MG TAB (PROTONIX) PO (08:45)
[2017-04-28] MEDS ORDERED: FLUCONAZOLE 100 MG TAB PO (09:00)
[2017-04-28] MEDS: GABAPENTIN 300 MG CAP PO ×2 (11:55→22:33)
[2017-04-28] MEDS: FEBUXOSTAT 40 MG TABLET (ULORIC) PO (11:55)
[2017-04-28] MEDS: CLOPIDOGREL 75 MG TAB PO (11:56)
[2017-04-28] MEDS: METOPROLOL 5 MG/5 ML VIAL IV (11:56)
[2017-04-28 11:59] LABS: BEDSIDE GLUCOSE 187 MG/DL (83-110)
[2017-04-28] MEDS: CHECK TO SEE IF PATIENT IS RECEIVING DIALYSIS TODAY AND REFER TO THE VANCOMYCIN ORDER XX (16:02)
[2017-04-28 17:33] LABS: BEDSIDE GLUCOSE 87 MG/DL (83-110)
[2017-04-28] MEDS: ATORVASTATIN 20 MG TAB PO (22:33)
[2017-04-28] MEDS: LEVEMIR (INSULIN DETEMIR) 1 UNITS/0.01ML SC (22:34)
[2017-04-28 23:00] LABS: BEDSIDE GLUCOSE 143 MG/DL (83-110)
[2017-04-29] MEDS: PIPERACILLIN/TAZOBACTAM SOD 2.25 GM in APPROPRIATE DILUENT 1 EA IV ×3 (05:51→20:42)
[2017-04-29] MEDS: HEPARIN SOD (PORCINE) 5000 UNITS/ML VIAL SQ ×3 (05:53→21:59)
[2017-04-29 07:27] LABS: BASO % 0.2 % (0.0-1.0); EOS # 0.1 10^3/uL (0.0-0.50); EOS % 0.8 % (0.0-3.0); HEMATOCRIT 28.4 % (42.0-52.0); HEMOGLOBIN 8.9 g/dl (14.0-18.0); IMMATURE GRANULOCYTE # 0.1 10^3/uL (0-0); LYMPH # 1.5 10^3/uL (1.5-4.5); LYMPH % 15.2 % (24.0-44.0); MEAN CORPUSCULAR HEMOGLOBIN 32.2 pg (27.0-33.0); MEAN CORPUSCULAR HGB CONC 31.3 g/dl (32.0-36.5); MEAN CORPUSCULAR VOLUME 102.9 fl (80.0-96.0); MONO # 0.9 10^3/uL (0.0-0.8); NEUTROPHILS # 7.3 10^3/uL (1.8-7.7); NEUTROPHILS % 73.8 % (36.0-66.0); PLATELET COUNT, AUTOMATED 175 10^3/uL (150-450); RED BLOOD COUNT 2.76 10^6/uL (4.30-6.10); WHITE BLOOD COUNT 9.9 10^3/uL (4.0-10.0)
[2017-04-29] MEDS: HumaLOG INSULIN (NovoLOG) PER UNIT SC ×4 (07:30→20:45)
[2017-04-29 07:56] LABS: POS COUNT POS FLAG
[2017-04-29 07:57] LABS: ANION GAP 7 MEQ/L (8-16); BLOOD UREA NITROGEN 56 MG/DL (7-18); CALCIUM LEVEL 8.6 MG/DL (8.8-10.2); CARBON DIOXIDE LEVEL 26 MEQ/L (21-32); CHLORIDE LEVEL 105 MEQ/L (98-107); CREATININE FOR GFR 6.37 MG/DL (0.70-1.30); GLUCOSE, FASTING 74 MG/DL (83-110); SODIUM LEVEL 138 MEQ/L (136-145)
[2017-04-29 08:09] LABS: POTASSIUM SERUM 5.3 MEQ/L (3.5-5.1)
[2017-04-29] MEDS: CALCIUM ACETATE 667 MG GELCAP PO ×3 (08:18→18:26)
[2017-04-29] MEDS: MIRALAX *UNIT DOSE* 17GM PACKET PO (08:19)
[2017-04-29] MEDS: PANTOPRAZOLE 40MG TAB (PROTONIX) PO (08:19)
[2017-04-29] MEDS: predniSONE 5 MG TAB PO (08:19)
[2017-04-29] MEDS: METOPROLOL TART 25 MG TABLET PO ×2 (08:19→20:42)
[2017-04-29] MEDS: FEBUXOSTAT 40 MG TABLET (ULORIC) PO (12:23)
[2017-04-29] MEDS: GABAPENTIN 300 MG CAP PO ×2 (12:23→20:42)
[2017-04-29] MEDS: CLOPIDOGREL 75 MG TAB PO (12:23)
[2017-04-29 12:28] LABS: BEDSIDE GLUCOSE 90 MG/DL (83-110)
[2017-04-29 17:12] LABS: BEDSIDE GLUCOSE 105 MG/DL (83-110)
[2017-04-29] MEDS ORDERED: SLF 3 ML SYR IV (18:15)
[2017-04-29] MEDS: CHECK TO SEE IF PATIENT IS RECEIVING DIALYSIS TODAY AND REFER TO THE VANCOMYCIN ORDER XX (18:56)
[2017-04-29] MEDS: VANCOMYCIN HCL 750 MG, VIAL MATE ADAPTER 1 EACH in D5W 250 ML IV (18:59)
[2017-04-29 20:42] LABS: BEDSIDE GLUCOSE 181 MG/DL (83-110)
[2017-04-29] MEDS: ATORVASTATIN 20 MG TAB PO (20:42)
[2017-04-29] MEDS: LEVEMIR (INSULIN DETEMIR) 1 UNITS/0.01ML SC (20:43)
[2017-04-29] MEDS: SLF 3 ML SYR IV (21:59)
[2017-04-30] MEDS: ACETAMINOPHEN TAB 650MG DOSE (2X325MG) PO ×2 (01:37→21:19)
[2017-04-30] MEDS: ONDANSETRON 4MG/2ML VIAL (J2405) IV (01:37)
[2017-04-30] MEDS: HEPARIN SOD (PORCINE) 5000 UNITS/ML VIAL SQ ×3 (05:51→21:20)
[2017-04-30 05:52] LABS: BASO % 0.3 % (0.0-1.0); EOS # 0.1 10^3/uL (0.0-0.50); EOS % 1.2 % (0.0-3.0); HEMATOCRIT 28.7 % (42.0-52.0); HEMOGLOBIN 8.8 g/dl (14.0-18.0); IMMATURE GRANULOCYTE # 0.1 10^3/uL (0-0); IMMATURE GRANULOCYTE % 0.7 % (0-0); LYMPH # 1.5 10^3/uL (1.5-4.5); MEAN CORPUSCULAR HEMOGLOBIN 31.7 pg (27.0-33.0); MEAN CORPUSCULAR HGB CONC 30.7 g/dl (32.0-36.5); MEAN CORPUSCULAR VOLUME 103.2 fl (80.0-96.0); MONO # 0.8 10^3/uL (0.0-0.8); MONO % 11.2 % (0.0-5.0); NEUTROPHILS % 66.6 % (36.0-66.0); PLATELET COUNT, AUTOMATED 181 10^3/uL (150-450); RED BLOOD COUNT 2.78 10^6/uL (4.30-6.10); WHITE BLOOD COUNT 7.5 10^3/uL (4.0-10.0)
[2017-04-30] MEDS: PIPERACILLIN/TAZOBACTAM SOD 2.25 GM in APPROPRIATE DILUENT 1 EA IV ×3 (05:52→21:19)
[2017-04-30 05:59] LABS: BEDSIDE GLUCOSE 75 MG/DL (83-110)
[2017-04-30 06:11] LABS: ANION GAP 5 MEQ/L (8-16); BLOOD UREA NITROGEN 34 MG/DL (7-18); CALCIUM LEVEL 8.3 MG/DL (8.8-10.2); CARBON DIOXIDE LEVEL 33 MEQ/L (21-32); CHLORIDE LEVEL 101 MEQ/L (98-107); CREATININE FOR GFR 4.85 MG/DL (0.70-1.30); GLOMERULAR FILTRATION RATE 12.3 (>35); GLUCOSE, FASTING 71 MG/DL (83-110); POTASSIUM SERUM 4.4 MEQ/L (3.5-5.1); SODIUM LEVEL 139 MEQ/L (136-145)
[2017-04-30] MEDS: SLF 3 ML SYR IV ×3 (06:24→21:20)
[2017-04-30 07:27] LABS: BEDSIDE GLUCOSE 83 MG/DL (83-110)
[2017-04-30] MEDS: HumaLOG INSULIN (NovoLOG) PER UNIT SC ×4 (07:30→21:00)
[2017-04-30] MEDS: CALCIUM ACETATE 667 MG GELCAP PO ×3 (08:00→18:41)
[2017-04-30] MEDS: MIRALAX *UNIT DOSE* 17GM PACKET PO (09:00)
[2017-04-30 11:31] LABS: BEDSIDE GLUCOSE 94 MG/DL (83-110)
[2017-04-30] MEDS: predniSONE 5 MG TAB PO (12:02)
[2017-04-30] MEDS: GABAPENTIN 300 MG CAP PO (12:02)
[2017-04-30] MEDS: PANTOPRAZOLE 40MG TAB (PROTONIX) PO (12:02)
[2017-04-30] MEDS: CLOPIDOGREL 75 MG TAB PO (12:02)
[2017-04-30] MEDS: METOPROLOL TART 25 MG TABLET PO ×2 (12:03→21:19)
[2017-04-30] MEDS: FEBUXOSTAT 40 MG TABLET (ULORIC) PO (12:04)
[2017-04-30] MEDS: CHECK TO SEE IF PATIENT IS RECEIVING DIALYSIS TODAY AND REFER TO THE VANCOMYCIN ORDER XX (16:00)
[2017-04-30 17:20] LABS: BEDSIDE GLUCOSE 117 MG/DL (83-110)
[2017-04-30 21:15] LABS: BEDSIDE GLUCOSE 192 MG/DL (83-110)
[2017-04-30] MEDS: ATORVASTATIN 20 MG TAB PO (21:17)
[2017-05-01] MEDS: ONDANSETRON 4MG/2ML VIAL (J2405) IV (00:42)
[2017-05-01] MEDS: PIPERACILLIN/TAZOBACTAM SOD 2.25 GM in APPROPRIATE DILUENT 1 EA IV (05:52)
[2017-05-01] MEDS: MOXIFLOXACIN 400 MG TAB PO (06:00)
[2017-05-01 06:01] LABS: BASO % 0.1 % (0.0-1.0); EOS # 0.1 10^3/uL (0.0-0.50); EOS % 0.7 % (0.0-3.0); HEMATOCRIT 27.8 % (42.0-52.0); HEMOGLOBIN 8.5 g/dl (14.0-18.0); IMMATURE GRANULOCYTE % 0.5 % (0-0); LYMPH # 1.4 10^3/uL (1.5-4.5); LYMPH % 18.4 % (24.0-44.0); MEAN CORPUSCULAR HEMOGLOBIN 31.8 pg (27.0-33.0); MEAN CORPUSCULAR HGB CONC 30.6 g/dl (32.0-36.5); MEAN CORPUSCULAR VOLUME 104.1 fl (80.0-96.0); MONO # 0.7 10^3/uL (0.0-0.8); MONO % 9.6 % (0.0-5.0); NEUTROPHILS # 5.2 10^3/uL (1.8-7.7); NEUTROPHILS % 70.7 % (36.0-66.0); PLATELET COUNT, AUTOMATED 172 10^3/uL (150-450); RED BLOOD COUNT 2.67 10^6/uL (4.30-6.10); RED CELL DISTRIBUTION WIDTH 16.6 % (11.5-14.5); WHITE BLOOD COUNT 7.3 10^3/uL (4.0-10.0)
[2017-05-01] MEDS: predniSONE 5 MG TAB PO (06:50)
[2017-05-01] MEDS: CALCIUM ACETATE 667 MG GELCAP PO ×2 (06:50→12:30)
[2017-05-01] MEDS: PANTOPRAZOLE 40MG TAB (PROTONIX) PO (06:50)
[2017-05-01] MEDS: MIRALAX *UNIT DOSE* 17GM PACKET PO ×2 (06:50→08:26)
[2017-05-01] MEDS: SLF 3 ML SYR IV ×2 (06:51→14:00)
[2017-05-01] MEDS: HEPARIN SOD (PORCINE) 5000 UNITS/ML VIAL SQ ×2 (06:51→14:00)
[2017-05-01] MEDS: HumaLOG INSULIN (NovoLOG) PER UNIT SC ×2 (07:30→12:00)
[2017-05-01 08:00] LABS: BEDSIDE GLUCOSE 236 MG/DL (83-110)
[2017-05-01] MEDS: GABAPENTIN 300 MG CAP PO (08:39)
[2017-05-01] MEDS: METOPROLOL TART 25 MG TABLET PO (08:42)
[2017-05-01 09:01] LABS: ANION GAP 10 MEQ/L (8-16); BLOOD UREA NITROGEN 44 MG/DL (7-18); CALCIUM LEVEL 8.3 MG/DL (8.8-10.2); CARBON DIOXIDE LEVEL 27 MEQ/L (21-32); CHLORIDE LEVEL 100 MEQ/L (98-107); CREATININE FOR GFR 6.51 MG/DL (0.70-1.30); GLOMERULAR FILTRATION RATE 8.8 (>35); GLUCOSE, FASTING 222 MG/DL (83-110); SODIUM LEVEL 137 MEQ/L (136-145); VANCOMYCIN RANDOM 27.2 UG/ML
[2017-05-01] MEDS: ALTEPLASE 2 MG/2 ML VIAL (J2997 PER 1MG) XX (09:15)
[2017-05-01] MEDS: FEBUXOSTAT 40 MG TABLET (ULORIC) PO (12:00)
[2017-05-01] MEDS: CLOPIDOGREL 75 MG TAB PO (12:00)
[2017-05-01] MEDS ORDERED: HEPARIN 1,000 UNITS/ML 10ML VIAL (FOR RADIOLOGY& DIALYSIS ONLY) As Ordered (12:09)
[2017-05-01] MEDS ORDERED: LIDOCAINE 2% MDV 20 ML VIAL As Ordered (12:09)
[2017-05-01] MEDS ORDERED: ISOVUE-300 61% 50ML VIAL (Q9967) As Ordered (12:11)
[2017-05-01] MEDS: HEPARIN 1,000 UNITS/ML 10ML VIAL (FOR RADIOLOGY& DIALYSIS ONLY) IV (12:15)
[2017-05-01] MEDS: HEPARIN 1,000 UNITS/ML 10ML VIAL (FOR RADIOLOGY& DIALYSIS ONLY) XX (12:15)
== END 2017-05-01 16:24 | DRG 853 ==
LOC: M PCU 04-29 17:15 → M ED 18:40 → M ED INP 23:19
PROC: 5A1D70Z Performance of Urinary Filtration, Intermittent, Less than 6 Hours Per Day (ICD-10-PCS; 2017-04-29)
PROC: 05733DZ Dilation of Right Innominate Vein with Intraluminal Device, Percutaneous Approach (ICD-10-PCS; principal; 2017-05-01)
PROC: 057Y3DZ Dilation of Upper Vein with Intraluminal Device, Percutaneous Approach (ICD-10-PCS; 2017-05-01)
PROC: 05PY33Z Removal of Infusion Device from Upper Vein, Percutaneous Approach (ICD-10-PCS; 2017-05-01)
PROC: 02HV33Z Insertion of Infusion Device into Superior Vena Cava, Percutaneous Approach (ICD-10-PCS; 2017-05-01)
DX: A41.9 Sepsis, unspecified organism (principal); N18.6 End stage renal disease; G93.41 Metabolic encephalopathy; I13.2 Hypertensive heart and chronic kidney disease with heart failure and with stage 5 chronic kidney disease, or end stage renal disease; I50.22 Chronic systolic (congestive) heart failure; I48.92 Unspecified atrial flutter; J44.1 Chronic obstructive pulmonary disease with (acute) exacerbation; I87.1 Compression of vein; E11.22 Type 2 diabetes mellitus with diabetic chronic kidney disease; K21.9 Gastro-esophageal reflux disease without esophagitis; I25.10 Atherosclerotic heart disease of native coronary artery without angina pectoris; E78.5 Hyperlipidemia, unspecified; E11.40 Type 2 diabetes mellitus with diabetic neuropathy, unspecified; E11.51 Type 2 diabetes mellitus with diabetic peripheral angiopathy without gangrene; K59.00 Constipation, unspecified; D63.1 Anemia in chronic kidney disease; E87.5 Hyperkalemia; Z99.2 Dependence on renal dialysis; Z79.4 Long term (current) use of insulin; Z79.52 Long term (current) use of systemic steroids; Z79.899 Other long term (current) drug therapy; Z95.820 Peripheral vascular angioplasty status with implants and grafts; Z87.891 Personal history of nicotine dependence

== ENCOUNTER → 2017-06-22 | Outpatient (REF) | payer MEDICARE, MEDICAID ==
[2017-06-22 11:12] LABS: ESTIMATED AVERAGE GLUCOSE 166 MG/DL (60-110); HEMOGLOBIN A1c 7.4 %
== END ==
LOC: SKLAB3 12:50
DX: N18.6 End stage renal disease (principal); E11.9 Type 2 diabetes mellitus without complications
CPT/HCPCS: 83036

== ENCOUNTER → 2017-09-28 | Outpatient (REF) | payer MEDICARE, MEDICAID ==
[2017-09-28 11:05] LABS: ESTIMATED AVERAGE GLUCOSE 148 MG/DL (60-110); HEMOGLOBIN A1c 6.8 %
== END ==
LOC: SKLAB3 07:03
DX: E11.9 Type 2 diabetes mellitus without complications (principal)
CPT/HCPCS: 83036

== ENCOUNTER → 2017-11-29 | Outpatient (REF) | payer MEDICARE, MEDICAID | LOC: SKLAB3 00:20 | DX: M79.661 Pain in right lower leg (principal) | CPT/HCPCS: 73590 ==

== ENCOUNTER 2017-12-03 19:58 | Emergency (ER) | payer MEDICARE, MEDICAID ==
[2017-12-03 21:34] LABS: BASO % 0.3 % (0.0-1.0); EOS # 0.2 10^3/uL (0.0-0.50); EOS % 1.8 % (0.0-3.0); HEMATOCRIT 37.5 % (42.0-52.0); HEMOGLOBIN 11.6 g/dl (13.5-17.5); IMMATURE GRANULOCYTE % 0.8 % (0-3.0); LYMPH # 1.4 10^3/uL (1.5-4.5); LYMPH % 14.1 % (24.0-44.0); MEAN CORPUSCULAR HEMOGLOBIN 32.5 pg (27.0-33.0); MEAN CORPUSCULAR HGB CONC 30.9 g/dl (32.0-36.5); MONO # 1.2 10^3/uL (0.0-0.8); NEUTROPHILS # 7.3 10^3/uL (1.8-7.7); PLATELET COUNT, AUTOMATED 141 10^3/uL (150-450); RED BLOOD COUNT 3.57 10^6/uL (4.30-6.10); RED CELL DISTRIBUTION WIDTH 13.9 % (11.5-14.5); WHITE BLOOD COUNT 10.2 10^3/uL (4.0-10.0)
[2017-12-03 22:00] LABS: ALBUMIN 2.8 GM/DL (3.2-5.2); ALBUMIN/GLOBULIN RATIO 0.67 (1.00-1.93); ALKALINE PHOSPHATASE 52 U/L (45-117); ALT/SGPT 15 U/L (12-78); ANION GAP 8 MEQ/L (8-16); AST/SGOT 12 U/L (7-37); BILIRUBIN,DIRECT 0.1 MG/DL (0.0-0.2); BILIRUBIN,TOTAL 0.3 MG/DL (0.2-1.0); BLOOD UREA NITROGEN 11 MG/DL (7-18); CARBON DIOXIDE LEVEL 28 MEQ/L (21-32); CHLORIDE LEVEL 102 MEQ/L (98-107); CPK CREATINE PHOSPHOKINASE 59 U/L (39-308); CREATININE FOR GFR 3.26 MG/DL (0.70-1.30); GLOMERULAR FILTRATION RATE 19.5 (>35); GLUCOSE, FASTING 128 MG/DL (70-100); POTASSIUM SERUM 3.7 MEQ/L (3.5-5.1); SODIUM LEVEL 138 MEQ/L (136-145); TROPONIN I 0.02 NG/ML (< 0.10)
[2017-12-03 22:01] LABS: CK-MB VALUE MASS 1.9 NG/ML (<3.6); MB/CK RELATIVE INDEX 3.22 (< OR =4)
[2017-12-04] MEDS: LABETALOL HCL 100 MG/20 ML VIAL IV (00:58)
[2017-12-04 01:14] LABS: KETONE, URINE AUTO RFX NEGATIVE (NEGATIVE); LEUKOCYTE ESTERASE UR AUTO RFX 3+ (NEGATIVE); NITRITE, URINE AUTO RFX NEGATIVE (NEGATIVE); RBC, URINE AUTO RFX 90 /HPF (0-3); SPECIFIC GRAVITY UR AUTO RFX 1.011 (1.002-1.035); SQUAM EPITHELIAL CELL UR AURFX 0 /HPF (0-6); WBC, URINE AUTO RFX TNTC /HPF (0-3)
[2017-12-04] MEDS: LevoFLOXacin 750 MG TABLET PO (04:25)
== END 2017-12-04 04:40 | disposition home or self-care (01) ==
LOC: M ED 12-04 04:40
DX: N39.0 Urinary tract infection, site not specified (principal); J18.9 Pneumonia, unspecified organism; I50.9 Heart failure, unspecified; J06.9 Acute upper respiratory infection, unspecified; B97.89 Other viral agents as the cause of diseases classified elsewhere
CPT/HCPCS: 71046

== ENCOUNTER → 2017-12-17 | Outpatient (REF) | payer MEDICARE, MEDICAID | LOC: SKLAB3 06:53 | DX: J06.9 Acute upper respiratory infection, unspecified (principal); K08.89 Other specified disorders of teeth and supporting structures | CPT/HCPCS: 71046 ==

== ENCOUNTER → 2017-12-28 | Outpatient (REF) | payer MEDICARE, MEDICAID ==
[2017-12-28 10:56] LABS: ESTIMATED AVERAGE GLUCOSE 151 MG/DL (60-110); HEMOGLOBIN A1c 6.9 %
== END ==
LOC: SKLAB3 11:36
DX: N18.9 Chronic kidney disease, unspecified (principal); Z79.899 Other long term (current) drug therapy
CPT/HCPCS: 83036

== ENCOUNTER 2018-01-11 03:38 | Emergency (ER) | payer MEDICARE, MEDICAID ==
[2018-01-11 05:06] LABS: BASO # 0.1 10^3/uL (0.0-0.2); BASO % 0.6 % (0.0-1.0); EOS # 0.1 10^3/uL (0.0-0.50); HEMATOCRIT 36.1 % (42.0-52.0); HEMOGLOBIN 10.7 g/dl (13.5-17.5); IMMATURE GRANULOCYTE % 2.1 % (0-3.0); LYMPH % 21.9 % (24.0-44.0); MEAN CORPUSCULAR HEMOGLOBIN 31.6 pg (27.0-33.0); MEAN CORPUSCULAR HGB CONC 29.6 g/dl (32.0-36.5); MEAN CORPUSCULAR VOLUME 106.5 fl (80.0-96.0); MONO # 1.1 10^3/uL (0.0-0.8); MONO % 12.2 % (0.0-5.0); NEUTROPHILS # 5.6 10^3/uL (1.8-7.7); NEUTROPHILS % 62.2 % (36.0-66.0); PLATELET COUNT, AUTOMATED 171 10^3/uL (150-450); RED BLOOD COUNT 3.39 10^6/uL (4.30-6.10); RED CELL DISTRIBUTION WIDTH 14.5 % (11.5-14.5)
[2018-01-11 05:31] LABS: ANION GAP 7 MEQ/L (8-16); BLOOD UREA NITROGEN 27 MG/DL (7-18); CALCIUM LEVEL 8.7 MG/DL (8.8-10.2); CARBON DIOXIDE LEVEL 32 MEQ/L (21-32); CHLORIDE LEVEL 106 MEQ/L (98-107); CPK CREATINE PHOSPHOKINASE 48 U/L (39-308); CREATININE FOR GFR 7.48 MG/DL (0.70-1.30); GLOMERULAR FILTRATION RATE 7.5 (>35); GLUCOSE, FASTING 143 MG/DL (70-100); MB/CK RELATIVE INDEX 3.54 (< OR =4); POTASSIUM SERUM 4.1 MEQ/L (3.5-5.1); SODIUM LEVEL 145 MEQ/L (136-145); TROPONIN I 0.06 NG/ML (< 0.10)
== END 2018-01-11 06:47 | disposition home or self-care (01) ==
LOC: M ED 03:38
DX: R06.02 Shortness of breath (principal); R94.31 Abnormal electrocardiogram [ECG] [EKG]; N18.6 End stage renal disease; Z99.2 Dependence on renal dialysis; Z79.899 Other long term (current) drug therapy
CPT/HCPCS: 71045

== ENCOUNTER 2018-01-25 19:05 | Emergency (ER) | payer MEDICARE, MEDICAID ==
[2018-01-25 21:47] LABS: BASO % 0.3 % (0.0-1.0); EOS # 0.1 10^3/uL (0.0-0.50); EOS % 0.9 % (0.0-3.0); HEMATOCRIT 40.4 % (42.0-52.0); IMMATURE GRANULOCYTE % 0.7 % (0-3.0); LYMPH # 0.9 10^3/uL (1.5-4.5); LYMPH % 8.2 % (24.0-44.0); MEAN CORPUSCULAR HEMOGLOBIN 31.8 pg (27.0-33.0); MEAN CORPUSCULAR HGB CONC 29.7 g/dl (32.0-36.5); MEAN CORPUSCULAR VOLUME 107.2 fl (80.0-96.0); MONO # 0.5 10^3/uL (0.0-0.8); NEUTROPHILS % 84.9 % (36.0-66.0); PLATELET COUNT, AUTOMATED 180 10^3/uL (150-450); RED BLOOD COUNT 3.77 10^6/uL (4.30-6.10); RED CELL DISTRIBUTION WIDTH 15.1 % (11.5-14.5); WHITE BLOOD COUNT 10.6 10^3/uL (4.0-10.0)
[2018-01-25] MEDS: NITROGLYCERIN 2% OINT 1 GM *U/D* PKT TOP ×2 (21:50→23:09)
[2018-01-25 22:09] LABS: ANION GAP 8 MEQ/L (8-16); BLOOD UREA NITROGEN 21 MG/DL (7-18); CALCIUM LEVEL 8.4 MG/DL (8.8-10.2); CARBON DIOXIDE LEVEL 29 MEQ/L (21-32); CHLORIDE LEVEL 103 MEQ/L (98-107); CREATININE FOR GFR 5.13 MG/DL (0.70-1.30); GLOMERULAR FILTRATION RATE 11.5 (>35); GLUCOSE, FASTING 145 MG/DL (70-100); POTASSIUM SERUM 4.4 MEQ/L (3.5-5.1); SODIUM LEVEL 140 MEQ/L (136-145)
[2018-01-25] MEDS ORDERED: hydrALAZINE INJ 20 MG/ML VIAL IV (22:28)
[2018-01-26 00:26] LABS: ABG BASE EXCESS 0.8 (-2.0-2.0); ABG HCO3 27.9 MEQ/L (22.0-26.0); ABG O2 SATURATION 97.2 % (95.0-99.0); ABG PARTIAL PRESSURE O2 93.1 mmHg (75.0-100.0); ABG STANDARD HCO3 25.2 MEQ/L (22.0-26.0); ABG TOTAL CO2 29.7 MEQ/L (23.0-31.0); ABG pH (ARTERIAL) 7.308 UNITS (7.350-7.450)
[2018-01-26] MEDS: cloNIDine 0.2 MG TAB PO (04:25)
[2018-01-26] MEDS: ACETAMINOPH W/CODEINE #3 TAB UD PO (04:26)
== END 2018-01-26 04:54 | disposition home or self-care (01) ==
LOC: M ED 01-26 04:54
DX: I12.9 Hypertensive chronic kidney disease with stage 1 through stage 4 chronic kidney disease, or unspecified chronic kidney disease (principal); E11.9 Type 2 diabetes mellitus without complications; J44.9 Chronic obstructive pulmonary disease, unspecified; I50.9 Heart failure, unspecified; E78.5 Hyperlipidemia, unspecified; N19 Unspecified kidney failure; Z99.2 Dependence on renal dialysis; Z99.81 Dependence on supplemental oxygen; Z79.899 Other long term (current) drug therapy
CPT/HCPCS: 71045

== ENCOUNTER → 2018-01-29 | Outpatient (REF) | payer MEDICARE, MEDICAID ==
[2018-01-30 01:14] LABS: APPEARANCE, URINE TURBID (CLEAR); BACTERIA, URINE AUTO 1+ (NEGATIVE); BILIRUBIN, URINE AUTO NEGATIVE (NEGATIVE); BLOOD, URINE BLOOD 2+ (NEGATIVE); COLOR, URINE YELLOW (YELLOW); GLUCOSE, URINE (UA) AUTO 1+ mg/dL (NEGATIVE); KETONE, URINE AUTO NEGATIVE (NEGATIVE); LEUKOCYTE ESTERASE, URINE AUTO 2+ (NEGATIVE); NITRITE, URINE AUTO NEGATIVE (NEGATIVE); PROTEIN, URINE AUTO 2+ mg/dL (NEGATIVE); RBC, URINE AUTO 159 /HPF (0-3); SPECIFIC GRAVITY URINE AUTO 1.017 (1.002-1.035); SQUAMOUS EPITHELIAL CELL UR AU 0 /HPF (0-6); UROBILINOGEN, URINE AUTO 0.2 mg/dL (0.0-2.0); WBC, URINE AUTO TNTC /HPF (0-3)
== END ==
LOC: SKLAB3 20:00
DX: R30.0 Dysuria (principal)
CPT/HCPCS: 81001

== ENCOUNTER 2018-02-01 09:39 | Inpatient (IN) | payer MEDICARE, MEDICAID ==
[2018-02-01] MEDS: MIRALAX *UNIT DOSE* 17GM PACKET PO (09:00)
[2018-02-01] MEDS: DOCUSATE SODIUM 100 MG CAP PO ×2 (09:00→20:40)
[2018-02-01] MEDS: METOPROLOL TART 25 MG TABLET PO ×2 (09:00→20:37)
[2018-02-01 10:36] LABS: BASO % 0.4 % (0.0-1.0); EOS # 0.1 10^3/uL (0.0-0.50); EOS % 0.8 % (0.0-3.0); IMMATURE GRANULOCYTE % 1.1 % (0-3.0); LYMPH # 1.4 10^3/uL (1.5-4.5); LYMPH % 14.5 % (24.0-44.0); MEAN CORPUSCULAR HEMOGLOBIN 32.2 pg (27.0-33.0); MEAN CORPUSCULAR HGB CONC 28.9 g/dl (32.0-36.5); MEAN CORPUSCULAR VOLUME 111.1 fl (80.0-96.0); MONO # 1.4 10^3/uL (0.0-0.8); MONO % 14.7 % (0.0-5.0); NEUTROPHILS # 6.5 10^3/uL (1.8-7.7); NEUTROPHILS % 68.5 % (36.0-66.0); PLATELET COUNT, AUTOMATED 194 10^3/uL (150-450); RED BLOOD COUNT 3.42 10^6/uL (4.30-6.10); RED CELL DISTRIBUTION WIDTH 15.5 % (11.5-14.5); WHITE BLOOD COUNT 9.5 10^3/uL (4.0-10.0)
[2018-02-01 10:46] LABS: PROTHROMBIN TIME 14.4 SECONDS (12.1-14.4)
[2018-02-01 10:47] LABS: PARTIAL THROMBOPLASTIN TIME 35.7 SECONDS (25.4-37.6)
[2018-02-01 11:30] LABS: ALBUMIN 2.7 GM/DL (3.2-5.2); ALBUMIN/GLOBULIN RATIO 0.57 (1.00-1.93); ALKALINE PHOSPHATASE 78 U/L (45-117); ALT/SGPT 12 U/L (12-78); ANION GAP 8 MEQ/L (8-16); AST/SGOT 9 U/L (7-37); BILIRUBIN,DIRECT 0.1 MG/DL (0.0-0.2); BILIRUBIN,TOTAL 0.3 MG/DL (0.2-1.0); BLOOD UREA NITROGEN 46 MG/DL (7-18); CALCIUM LEVEL 8.8 MG/DL (8.8-10.2); CARBON DIOXIDE LEVEL 33 MEQ/L (21-32); CHLORIDE LEVEL 101 MEQ/L (98-107); CK-MB VALUE MASS < 1.0 NG/ML (<3.6); CPK CREATINE PHOSPHOKINASE 37 U/L (39-308); CREATININE FOR GFR 9.03 MG/DL (0.70-1.30); FREE T4 0.98 NG/DL (0.76-1.46); GLUCOSE, FASTING 181 MG/DL (70-100); NT-PRO BNP 136261 PG/ML (<450); POTASSIUM SERUM 4.7 MEQ/L (3.5-5.1); SODIUM LEVEL 142 MEQ/L (136-145); TOTAL PROTEIN 7.4 GM/DL (6.4-8.2); TROPONIN I 0.09 NG/ML (< 0.10)
[2018-02-01] MEDS ORDERED: FUROSEMIDE 40 MG/4 ML VIAL (J1940) IV (11:45)
[2018-02-01] MEDS: IPRATROPIUM 0.5MG/ALBUTEROL 2.5MG INH SOL UD 3ML (DUONEB)(J7620) NEB ×3 (11:45→19:46)
[2018-02-01 11:59] LABS: ABG BASE EXCESS 2.7 (-2.0-2.0); ABG HCO3 30.6 MEQ/L (22.0-26.0); ABG O2 SATURATION 90.3 % (95.0-99.0); ABG PARTIAL PRESSURE O2 59.1 mmHg (75.0-100.0); ABG STANDARD HCO3 26.7 MEQ/L (22.0-26.0); ABG TOTAL CO2 32.6 MEQ/L (23.0-31.0); ABG pH (ARTERIAL) 7.298 UNITS (7.350-7.450)
[2018-02-01 12:03] LABS: ABG PARTIAL PRESSURE CO2 63.9 mmHg (35.0-45.0)
[2018-02-01] MEDS: HEPARIN 1,000 UNITS/ML 10ML VIAL (FOR RADIOLOGY& DIALYSIS ONLY) IV (13:00)
[2018-02-01] MEDS: HEPARIN 1,000 UNITS/ML 10ML VIAL (FOR RADIOLOGY& DIALYSIS ONLY) XX (13:00)
[2018-02-01 13:52] LABS: ABG BASE EXCESS 2.6 (-2.0-2.0); ABG HCO3 29.8 MEQ/L (22.0-26.0); ABG O2 SATURATION 93.7 % (95.0-99.0); ABG PARTIAL PRESSURE CO2 58.7 mmHg (35.0-45.0); ABG PARTIAL PRESSURE O2 67.1 mmHg (75.0-100.0); ABG STANDARD HCO3 26.7 MEQ/L (22.0-26.0); ABG TOTAL CO2 31.6 MEQ/L (23.0-31.0); ABG pH (ARTERIAL) 7.323 UNITS (7.350-7.450)
[2018-02-01] MEDS ORDERED: GLUCAGON FOR INJ 1 MG VIAL (J1610) SC (14:15)
[2018-02-01] MEDS ORDERED: GLUCOSE 4 GM CHEW TABLET PO (14:15)
[2018-02-01] MEDS ORDERED: DEXTROSE 50% 50 ML SYRINGE IV (14:15)
[2018-02-01] MEDS ORDERED: NORCO, ANEXSIA 5/325MG TABLET (HYDROcodone/ACETAMINOPHEN) PO ×3 (14:15→22:15)
[2018-02-01] MEDS ORDERED: BISACODYL 10 MG SUPP PR (14:30)
[2018-02-01] MEDS ORDERED: MOM 30ML SUSPENSION UDC PO (14:30)
[2018-02-01 14:43] LABS: GOLD SPEC TUBE RECIEVED
[2018-02-01] MEDS: CALCIUM ACETATE 667 MG GELCAP PO ×2 (18:00→20:39)
[2018-02-01 18:25] LABS: BEDSIDE GLUCOSE 138 MG/DL (83-110)
[2018-02-01] MEDS: HumaLOG INSULIN (NovoLOG) PER UNIT SC ×2 (18:31→20:41)
[2018-02-01] MEDS: CLOPIDOGREL 75 MG TAB PO ×2 (18:32→20:36)
[2018-02-01] MEDS: predniSONE 5 MG TAB PO ×2 (18:32→20:35)
[2018-02-01] MEDS: PANTOPRAZOLE 40MG TAB (PROTONIX) PO ×2 (18:32→20:38)
[2018-02-01] MEDS: GABAPENTIN 300 MG CAP PO ×2 (18:32→20:39)
[2018-02-01] MEDS: MULTIVITAMINS/MINERALS THERAP 1 TAB PO ×2 (18:32→20:40)
[2018-02-01 20:28] LABS: BEDSIDE GLUCOSE 134 MG/DL (83-110)
[2018-02-01] MEDS: ATORVASTATIN 20 MG TAB PO (20:38)
[2018-02-01] MEDS: SENOKOT S TAB PO (20:40)
[2018-02-01] MEDS: ENOXAPARIN 30 MG/0.3 ML SYR (J1650) SC (20:41)
[2018-02-01] MEDS ORDERED: PILL CRUSHER/CUTTER 1 EACH XX (21:15)
[2018-02-02 05:21] LABS: BASO # 0.1 10^3/uL (0.0-0.2); BASO % 0.6 % (0.0-1.0); EOS % 0.1 % (0.0-3.0); HEMATOCRIT 36.8 % (42.0-52.0); HEMOGLOBIN 10.8 g/dl (13.5-17.5); IMMATURE GRANULOCYTE % 2.1 % (0-3.0); LYMPH # 1.1 10^3/uL (1.5-4.5); LYMPH % 10.5 % (24.0-44.0); MEAN CORPUSCULAR HEMOGLOBIN 31.6 pg (27.0-33.0); MEAN CORPUSCULAR HGB CONC 29.3 g/dl (32.0-36.5); MEAN CORPUSCULAR VOLUME 107.6 fl (80.0-96.0); MONO # 0.9 10^3/uL (0.0-0.8); MONO % 8.9 % (0.0-5.0); NEUTROPHILS # 7.9 10^3/uL (1.8-7.7); NEUTROPHILS % 77.8 % (36.0-66.0); PLATELET COUNT, AUTOMATED 192 10^3/uL (150-450); RED BLOOD COUNT 3.42 10^6/uL (4.30-6.10); RED CELL DISTRIBUTION WIDTH 15.1 % (11.5-14.5); WHITE BLOOD COUNT 10.2 10^3/uL (4.0-10.0)
[2018-02-02 05:45] LABS: ALBUMIN 2.6 GM/DL (3.2-5.2); ALBUMIN/GLOBULIN RATIO 0.55 (1.00-1.93); ALKALINE PHOSPHATASE 76 U/L (45-117); ALT/SGPT 13 U/L (12-78); ANION GAP 10 MEQ/L (8-16); AST/SGOT 15 U/L (7-37); BILIRUBIN,TOTAL 0.4 MG/DL (0.2-1.0); BLOOD UREA NITROGEN 27 MG/DL (7-18); CALCIUM LEVEL 8.6 MG/DL (8.8-10.2); CARBON DIOXIDE LEVEL 25 MEQ/L (21-32); CHLORIDE LEVEL 100 MEQ/L (98-107); CREATININE FOR GFR 5.77 MG/DL (0.70-1.30); GLOMERULAR FILTRATION RATE 10.1 (>35); GLUCOSE, FASTING 187 MG/DL (70-100); MAGNESIUM LEVEL 3.7 MG/DL (1.8-2.4); POTASSIUM SERUM 4.8 MEQ/L (3.5-5.1); SODIUM LEVEL 135 MEQ/L (136-145); TOTAL PROTEIN 7.3 GM/DL (6.4-8.2)
[2018-02-02] MEDS: MIRALAX *UNIT DOSE* 17GM PACKET PO (09:25)
[2018-02-02] MEDS: SENOKOT S TAB PO ×2 (09:26→20:46)
[2018-02-02] MEDS: CLOPIDOGREL 75 MG TAB PO (09:26)
[2018-02-02] MEDS: PANTOPRAZOLE 40MG TAB (PROTONIX) PO (09:26)
[2018-02-02] MEDS: predniSONE 5 MG TAB PO (09:26)
[2018-02-02] MEDS: MULTIVITAMINS/MINERALS THERAP 1 TAB PO (09:27)
[2018-02-02] MEDS: FEBUXOSTAT 40 MG TABLET (ULORIC) PO (09:27)
[2018-02-02] MEDS: GABAPENTIN 300 MG CAP PO (09:27)
[2018-02-02] MEDS: METOPROLOL TART 25 MG TABLET PO ×2 (09:27→20:46)
[2018-02-02] MEDS: HumaLOG INSULIN (NovoLOG) PER UNIT SC ×4 (09:28→20:11)
[2018-02-02] MEDS: IPRATROPIUM 0.5MG/ALBUTEROL 2.5MG INH SOL UD 3ML (DUONEB)(J7620) NEB ×3 (11:52→21:00)
[2018-02-02] MEDS: HEPARIN 1,000 UNITS/ML 10ML VIAL (FOR RADIOLOGY& DIALYSIS ONLY) IV (15:49)
[2018-02-02] MEDS: HEPARIN 1,000 UNITS/ML 10ML VIAL (FOR RADIOLOGY& DIALYSIS ONLY) XX (15:49)
[2018-02-02] MEDS: methylPREDNISolone INJ 125 MG/2 ML VIAL (J2930) IV ×2 (15:55→16:52)
[2018-02-02] MEDS ORDERED: CEFEPIME HCL 1 GM in D5W MINI-BAG PLUS 50 ML IV (16:00)
[2018-02-02] MEDS: [UNRECOGNIZED DRUG - OTHER] XX (16:52)
[2018-02-02] MEDS: CEFEPIME HCL 1 GM in D5W MINI-BAG PLUS 50 ML IV (16:56)
[2018-02-02 17:10] LABS: BEDSIDE GLUCOSE 226 MG/DL (83-110)
[2018-02-02] MEDS: LevoFLOXacin 500 MG TABLET PO (17:34)
[2018-02-02] MEDS: CALCIUM ACETATE 667 MG GELCAP PO (17:34)
[2018-02-02 19:56] LABS: BEDSIDE GLUCOSE 152 MG/DL (83-110)
[2018-02-02] MEDS: ATORVASTATIN 20 MG TAB PO (20:46)
[2018-02-02] MEDS: ENOXAPARIN 30 MG/0.3 ML SYR (J1650) SC (20:46)
[2018-02-02] MEDS: predniSONE 20 MG TAB PO (20:46)
[2018-02-03 00:58] LABS: BEDSIDE GLUCOSE 144 MG/DL (83-110)
[2018-02-03 06:28] LABS: BEDSIDE GLUCOSE 209 MG/DL (83-110)
[2018-02-03] MEDS: SENOKOT S TAB PO ×2 (06:40→21:29)
[2018-02-03] MEDS: MULTIVITAMINS/MINERALS THERAP 1 TAB PO (06:40)
[2018-02-03] MEDS: predniSONE 20 MG TAB PO ×3 (06:40→21:29)
[2018-02-03] MEDS: PANTOPRAZOLE 40MG TAB (PROTONIX) PO (06:40)
[2018-02-03] MEDS: DOCUSATE SODIUM 100 MG CAP PO (06:40)
[2018-02-03] MEDS: GABAPENTIN 300 MG CAP PO (06:40)
[2018-02-03] MEDS: CLOPIDOGREL 75 MG TAB PO (06:41)
[2018-02-03] MEDS: METOPROLOL TART 25 MG TABLET PO ×2 (06:41→21:32)
[2018-02-03] MEDS: MIRALAX *UNIT DOSE* 17GM PACKET PO (06:41)
[2018-02-03] MEDS: HumaLOG INSULIN (NovoLOG) PER UNIT SC ×4 (08:09→21:28)
[2018-02-03] MEDS: CALCIUM ACETATE 667 MG GELCAP PO ×2 (08:10→17:21)
[2018-02-03] MEDS: IPRATROPIUM 0.5MG/ALBUTEROL 2.5MG INH SOL UD 3ML (DUONEB)(J7620) NEB ×4 (08:11→21:09)
[2018-02-03] MEDS ORDERED: LevoFLOXacin 250 MG TABLET PO (11:00)
[2018-02-03 11:32] LABS: BEDSIDE GLUCOSE 241 MG/DL (83-110)
[2018-02-03] MEDS: NORCO, ANEXSIA 5/325MG TABLET (HYDROcodone/ACETAMINOPHEN) PO (12:19)
[2018-02-03] MEDS: LevoFLOXacin 250 MG TABLET PO (17:21)
[2018-02-03] MEDS ORDERED: DARBEPOETIN 100 MCG/0.5 ML *DIALYSIS* SYRINGE (J0882) IV (17:30)
[2018-02-03] MEDS: ENOXAPARIN 30 MG/0.3 ML SYR (J1650) SC (21:28)
[2018-02-03] MEDS: ATORVASTATIN 20 MG TAB PO (21:29)
[2018-02-04 03:04] LABS: BEDSIDE GLUCOSE 256 MG/DL (83-110)
[2018-02-04 03:04] LABS: BEDSIDE GLUCOSE 254 MG/DL (83-110)
[2018-02-04] MEDS: PANTOPRAZOLE 40MG TAB (PROTONIX) PO (06:19)
[2018-02-04] MEDS: MIRALAX *UNIT DOSE* 17GM PACKET PO (06:19)
[2018-02-04] MEDS: SENOKOT S TAB PO (06:20)
[2018-02-04] MEDS: MULTIVITAMINS/MINERALS THERAP 1 TAB PO (06:20)
[2018-02-04] MEDS: METOPROLOL TART 25 MG TABLET PO (06:20)
[2018-02-04] MEDS: FEBUXOSTAT 40 MG TABLET (ULORIC) PO (06:20)
[2018-02-04] MEDS: CLOPIDOGREL 75 MG TAB PO (06:20)
[2018-02-04] MEDS: CALCIUM ACETATE 667 MG GELCAP PO (06:20)
[2018-02-04] MEDS: GABAPENTIN 300 MG CAP PO (06:21)
[2018-02-04] MEDS: predniSONE 20 MG TAB PO (06:21)
[2018-02-04] MEDS: DOCUSATE SODIUM 100 MG CAP PO (06:21)
[2018-02-04] MEDS: IPRATROPIUM 0.5MG/ALBUTEROL 2.5MG INH SOL UD 3ML (DUONEB)(J7620) NEB (07:19)
[2018-02-04] MEDS: HumaLOG INSULIN (NovoLOG) PER UNIT SC ×2 (08:02→08:06)
[2018-02-04 09:49] LABS: HEMATOCRIT 37.2 % (42.0-52.0); HEMOGLOBIN 11.5 g/dl (13.5-17.5); MEAN CORPUSCULAR HGB CONC 30.9 g/dl (32.0-36.5); MEAN CORPUSCULAR VOLUME 103.6 fl (80.0-96.0); PLATELET COUNT, AUTOMATED 229 10^3/uL (150-450); RED BLOOD COUNT 3.59 10^6/uL (4.30-6.10); RED CELL DISTRIBUTION WIDTH 14.7 % (11.5-14.5); WHITE BLOOD COUNT 10.3 10^3/uL (4.0-10.0)
[2018-02-04 09:56] LABS: ALBUMIN 2.7 GM/DL (3.2-5.2); ANION GAP 10 MEQ/L (8-16); BLOOD UREA NITROGEN 54 MG/DL (7-18); CALCIUM LEVEL 9.1 MG/DL (8.8-10.2); CARBON DIOXIDE LEVEL 27 MEQ/L (21-32); CHLORIDE LEVEL 98 MEQ/L (98-107); CREATININE FOR GFR 7.24 MG/DL (0.70-1.30); GLOMERULAR FILTRATION RATE 7.8 (>35); GLUCOSE, FASTING 341 MG/DL (70-100); POTASSIUM SERUM 4.8 MEQ/L (3.5-5.1); SODIUM LEVEL 135 MEQ/L (136-145)
[2018-02-04] MEDS ORDERED: LevoFLOXacin 500 MG TABLET PO (18:00)
[2018-02-05 12:01] LABS: BEDSIDE GLUCOSE 238 MG/DL (83-110)
[2018-02-11] MEDS ORDERED: VITAMIN D 50,000 UNITS CAPSULE (ERGOCALCIFEROL 1.25MG) PO (09:00)
== END 2018-02-04 11:32 | DRG 291 ==
LOC: M MSPAV 02-02 14:36 → M ED 09:39 → M ED INP 14:13 → M ICU 17:37
PROC: 5A1D70Z Performance of Urinary Filtration, Intermittent, Less than 6 Hours Per Day (ICD-10-PCS; principal; 2018-02-01)
DX: I50.22 Chronic systolic (congestive) heart failure (principal); N18.6 End stage renal disease; J96.01 Acute respiratory failure with hypoxia; J96.02 Acute respiratory failure with hypercapnia; J44.1 Chronic obstructive pulmonary disease with (acute) exacerbation; E11.22 Type 2 diabetes mellitus with diabetic chronic kidney disease; K21.9 Gastro-esophageal reflux disease without esophagitis; E78.5 Hyperlipidemia, unspecified; I25.10 Atherosclerotic heart disease of native coronary artery without angina pectoris; D63.1 Anemia in chronic kidney disease; Z87.891 Personal history of nicotine dependence; Z99.81 Dependence on supplemental oxygen; Z79.52 Long term (current) use of systemic steroids; Z79.891 Long term (current) use of opiate analgesic; Z79.899 Other long term (current) drug therapy; Z99.2 Dependence on renal dialysis; E11.51 Type 2 diabetes mellitus with diabetic peripheral angiopathy without gangrene; M10.30 Gout due to renal impairment, unspecified site; Z89.421 Acquired absence of other right toe(s); Z89.412 Acquired absence of left great toe

== ENCOUNTER 2018-02-08 17:17 | Inpatient (IN) | payer MEDICARE, MEDICAID ==
[2018-02-08 19:43] LABS: HEMATOCRIT 43.2 % (42.0-52.0); MEAN CORPUSCULAR HEMOGLOBIN 32.2 pg (27.0-33.0); MEAN CORPUSCULAR HGB CONC 30.1 g/dl (32.0-36.5); MEAN CORPUSCULAR VOLUME 106.9 fl (80.0-96.0); PLATELET COUNT, AUTOMATED 261 10^3/uL (150-450); RED BLOOD COUNT 4.04 10^6/uL (4.30-6.10); RED CELL DISTRIBUTION WIDTH 15.1 % (11.5-14.5); WHITE BLOOD COUNT 23.6 10^3/uL (4.0-10.0)
[2018-02-08 19:51] LABS: ADD MANUAL DIFFER YES; DIFF SLIDE NUMBER 334; POS COUNT POS FLAG; POSITIVE MORPH POS FLAG
[2018-02-08 20:08] LABS: LACTIC ACID SEPSIS PROTOCOL 0.6 MMOL/L (0.4-2.0)
[2018-02-08] MEDS: PIPERACILLIN/TAZOBACTAM SOD 3.375 GM in D5W MINI-BAG PLUS 50 ML IV (20:15)
[2018-02-08 20:18] LABS: ALBUMIN 3.1 GM/DL (3.2-5.2); ALKALINE PHOSPHATASE 72 U/L (45-117); ALT/SGPT 18 U/L (12-78); ANION GAP 7 MEQ/L (8-16); AST/SGOT 13 U/L (7-37); BILIRUBIN,DIRECT < 0.1 MG/DL (0.0-0.2); BILIRUBIN,TOTAL 0.3 MG/DL (0.2-1.0); BLOOD UREA NITROGEN 119 MG/DL (7-18); CALCIUM LEVEL 8.7 MG/DL (8.8-10.2); CARBON DIOXIDE LEVEL 28 MEQ/L (21-32); CHLORIDE LEVEL 100 MEQ/L (98-107); CPK CREATINE PHOSPHOKINASE 35 U/L (39-308); GLOMERULAR FILTRATION RATE 5.1 (>35); GLUCOSE, FASTING 323 MG/DL (70-100); MB/CK RELATIVE INDEX 5.43 (< OR =4); POTASSIUM SERUM 6.8 MEQ/L (3.5-5.1); SODIUM LEVEL 135 MEQ/L (136-145); TOTAL PROTEIN 7.5 GM/DL (6.4-8.2); TROPONIN I 0.04 NG/ML (< 0.10)
[2018-02-08 20:53] LABS: LYMPHOCYTES 3 % (16-52); METAMYELOCYTES 1 % (0-0); MONOCYTES 3 % (0-8); MYELOCYTES 4 % (0-0); NEUTROPHILS 89 % (35-75); PLATELET ESTIMATE INVALID (NORMAL)
[2018-02-08 20:54] LABS: PLATELET CLUMPS SMALL AMT
[2018-02-08] MEDS: METOPROLOL TART 25 MG TABLET PO (21:00)
[2018-02-08] MEDS: predniSONE 10 MG TAB PO (21:00)
[2018-02-08] MEDS: ATORVASTATIN 20 MG TAB PO (21:00)
[2018-02-08] MEDS ORDERED: BISACODYL 10 MG SUPP PR (22:00)
[2018-02-08] MEDS ORDERED: ACETAMINOPHEN 650 MG SUPP PR (22:00)
[2018-02-08] MEDS ORDERED: ISOVUE-370 76% 100ML VIAL (Q9967) As Ordered (22:06)
[2018-02-08] MEDS ORDERED: CALCIUM GLUCONATE 1,000 MG in D5W MINI-BAG PLUS 100 ML IV (23:30)
[2018-02-09] MEDS ORDERED: PIPERACILLIN/TAZOBACTAM SOD 2.25 GM in D5W MINI-BAG PLUS 50 ML IV (05:00)
[2018-02-09 07:33] LABS: ANION GAP 10 MEQ/L (8-16); BLOOD UREA NITROGEN 132 MG/DL (7-18); CALCIUM LEVEL 8.5 MG/DL (8.8-10.2); CARBON DIOXIDE LEVEL 24 MEQ/L (21-32); CHLORIDE LEVEL 101 MEQ/L (98-107); GLOMERULAR FILTRATION RATE 4.8 (>35); GLUCOSE, FASTING 318 MG/DL (70-100); POTASSIUM SERUM 7.6 MEQ/L (3.5-5.1); SODIUM LEVEL 135 MEQ/L (136-145)
[2018-02-09 08:14] LABS: ADD MANUAL DIFFER YES; DIFF SLIDE NUMBER 104; HEMATOCRIT 41.6 % (42.0-52.0); HEMOGLOBIN 12.7 g/dl (13.5-17.5); MEAN CORPUSCULAR HEMOGLOBIN 32.1 pg (27.0-33.0); MEAN CORPUSCULAR HGB CONC 30.5 g/dl (32.0-36.5); MEAN CORPUSCULAR VOLUME 105.1 fl (80.0-96.0); PLATELET COUNT, AUTOMATED 265 10^3/uL (150-450); POS COUNT POS FLAG; POSITIVE MORPH POS FLAG; RED BLOOD COUNT 3.96 10^6/uL (4.30-6.10); RED CELL DISTRIBUTION WIDTH 15.1 % (11.5-14.5); WHITE BLOOD COUNT 22.4 10^3/uL (4.0-10.0)
[2018-02-09 08:44] LABS: LYMPHOCYTES 9 % (16-52); MONOCYTES 4 % (0-8); NEUTROPHILS 87 % (35-75)
[2018-02-09 08:45] LABS: PLATELET ESTIMATE NORMAL (NORMAL)
[2018-02-09] MEDS: METOPROLOL TART 25 MG TABLET PO ×2 (09:00→22:26)
[2018-02-09] MEDS: HEPARIN 1,000 UNITS/ML 10ML VIAL (FOR RADIOLOGY& DIALYSIS ONLY) IV (09:45)
[2018-02-09] MEDS: HEPARIN 1,000 UNITS/ML 10ML VIAL (FOR RADIOLOGY& DIALYSIS ONLY) XX (09:45)
[2018-02-09] MEDS ORDERED: VANCOMYCIN HCL 1,000 MG, VIAL MATE ADAPTER 1 EACH in D5W 250 ML IV (12:00)
[2018-02-09] MEDS: PIPERACILLIN/TAZOBACTAM SOD 2.25 GM in D5W MINI-BAG PLUS 50 ML IV ×2 (13:13→17:43)
[2018-02-09] MEDS: PANTOPRAZOLE 40MG TAB (PROTONIX) PO (13:14)
[2018-02-09] MEDS: MULTIVITAMINS/MINERALS THERAP 1 TAB PO (13:14)
[2018-02-09] MEDS: CLOPIDOGREL 75 MG TAB PO (13:14)
[2018-02-09] MEDS: CALCIUM ACETATE 667 MG GELCAP PO ×2 (13:14→17:44)
[2018-02-09] MEDS: predniSONE 10 MG TAB PO ×2 (13:14→22:25)
[2018-02-09] MEDS: GABAPENTIN 300 MG CAP PO (13:15)
[2018-02-09] MEDS: DOCUSATE SODIUM 100 MG CAP PO (13:15)
[2018-02-09 15:13] LABS: ANION GAP 10 MEQ/L (8-16); BLOOD UREA NITROGEN 66 MG/DL (7-18); CALCIUM LEVEL 8.8 MG/DL (8.8-10.2); CARBON DIOXIDE LEVEL 27 MEQ/L (21-32); CHLORIDE LEVEL 99 MEQ/L (98-107); CREATININE FOR GFR 6.94 MG/DL (0.70-1.30); GLOMERULAR FILTRATION RATE 8.1 (>35); GLUCOSE, FASTING 210 MG/DL (70-100); SODIUM LEVEL 136 MEQ/L (136-145)
[2018-02-09] MEDS: FEBUXOSTAT 40 MG TABLET (ULORIC) PO (17:44)
[2018-02-09] MEDS: VANCOMYCIN HCL 750 MG, VIAL MATE ADAPTER 1 EACH in D5W 250 ML IV (19:41)
[2018-02-09] MEDS: **VANCO AFTER HD** MISC XX (19:46)
[2018-02-09] MEDS: ATORVASTATIN 20 MG TAB PO (22:25)
[2018-02-09] MEDS: HEPARIN SOD (PORCINE) 5000 UNITS/ML VIAL SQ (22:26)
[2018-02-10] MEDS: PIPERACILLIN/TAZOBACTAM SOD 2.25 GM in D5W MINI-BAG PLUS 50 ML IV ×3 (02:53→17:40)
[2018-02-10 06:58] LABS: VANCOMYCIN RANDOM < 0.8 UG/ML
[2018-02-10] MEDS: predniSONE 10 MG TAB PO ×2 (08:05→21:02)
[2018-02-10] MEDS: CALCIUM ACETATE 667 MG GELCAP PO ×2 (08:06→17:39)
[2018-02-10] MEDS: MULTIVITAMINS/MINERALS THERAP 1 TAB PO (08:06)
[2018-02-10] MEDS: DOCUSATE SODIUM 100 MG CAP PO (08:06)
[2018-02-10] MEDS: GABAPENTIN 300 MG CAP PO (08:06)
[2018-02-10] MEDS: METOPROLOL TART 25 MG TABLET PO ×2 (08:06→21:03)
[2018-02-10] MEDS: VANCOMYCIN HCL 750 MG, VIAL MATE ADAPTER 1 EACH in D5W 250 ML IV (08:07)
[2018-02-10] MEDS: HEPARIN SOD (PORCINE) 5000 UNITS/ML VIAL SQ ×2 (08:07→21:02)
[2018-02-10 08:09] LABS: HEMATOCRIT 39.1 % (42.0-52.0); MEAN CORPUSCULAR HEMOGLOBIN 32.3 pg (27.0-33.0); MEAN CORPUSCULAR HGB CONC 30.7 g/dl (32.0-36.5); MEAN CORPUSCULAR VOLUME 105.1 fl (80.0-96.0); PLATELET COUNT, AUTOMATED 188 10^3/uL (150-450); RED BLOOD COUNT 3.72 10^6/uL (4.30-6.10); RED CELL DISTRIBUTION WIDTH 15.2 % (11.5-14.5); WHITE BLOOD COUNT 18.1 10^3/uL (4.0-10.0)
[2018-02-10 08:57] LABS: ANION GAP 19 MEQ/L (8-16); BLOOD UREA NITROGEN 70 MG/DL (7-18); CALCIUM LEVEL 8.2 MG/DL (8.8-10.2); CARBON DIOXIDE LEVEL 18 MEQ/L (21-32); CHLORIDE LEVEL 99 MEQ/L (98-107); CREATININE FOR GFR 7.16 MG/DL (0.70-1.30); GLOMERULAR FILTRATION RATE 7.9 (>35); GLUCOSE, FASTING 267 MG/DL (70-100); POTASSIUM SERUM 5.4 MEQ/L (3.5-5.1); SODIUM LEVEL 136 MEQ/L (136-145)
[2018-02-10] MEDS ORDERED: PATIROMER SORBITEX CALCIUM 8.4 GM POWDER PACKET (VELTASSA) PO (12:00)
[2018-02-10] MEDS: PANTOPRAZOLE 40MG TAB (PROTONIX) PO (12:01)
[2018-02-10] MEDS: CLOPIDOGREL 75 MG TAB PO (12:01)
[2018-02-10] MEDS: PATIROMER SORBITEX CALCIUM 8.4 GM POWDER PACKET (VELTASSA) PO (15:46)
[2018-02-10] MEDS: **VANCO AFTER HD** MISC XX (16:00)
[2018-02-10] MEDS: ATORVASTATIN 20 MG TAB PO (21:02)
[2018-02-11] MEDS: PIPERACILLIN/TAZOBACTAM SOD 2.25 GM in D5W MINI-BAG PLUS 50 ML IV ×3 (02:51→18:20)
[2018-02-11 05:47] LABS: HEMATOCRIT 38.7 % (42.0-52.0); MEAN CORPUSCULAR HEMOGLOBIN 32.3 pg (27.0-33.0); MEAN CORPUSCULAR VOLUME 104.3 fl (80.0-96.0); PLATELET COUNT, AUTOMATED 211 10^3/uL (150-450); RED BLOOD COUNT 3.71 10^6/uL (4.30-6.10); RED CELL DISTRIBUTION WIDTH 15.1 % (11.5-14.5); WHITE BLOOD COUNT 15.2 10^3/uL (4.0-10.0)
[2018-02-11 05:52] LABS: VANCOMYCIN RANDOM 9.3 UG/ML
[2018-02-11 06:08] LABS: ANION GAP 11 MEQ/L (8-16); BLOOD UREA NITROGEN 82 MG/DL (7-18); CALCIUM LEVEL 8.5 MG/DL (8.8-10.2); CARBON DIOXIDE LEVEL 25 MEQ/L (21-32); CHLORIDE LEVEL 96 MEQ/L (98-107); CREATININE FOR GFR 8.56 MG/DL (0.70-1.30); GLOMERULAR FILTRATION RATE 6.4 (>35); GLUCOSE, FASTING 254 MG/DL (70-100); POTASSIUM SERUM 5.3 MEQ/L (3.5-5.1); SODIUM LEVEL 132 MEQ/L (136-145)
[2018-02-11] MEDS: DOCUSATE SODIUM 100 MG CAP PO (06:30)
[2018-02-11] MEDS: GABAPENTIN 300 MG CAP PO (06:30)
[2018-02-11] MEDS: MULTIVITAMINS/MINERALS THERAP 1 TAB PO (06:30)
[2018-02-11] MEDS: predniSONE 10 MG TAB PO ×2 (06:31→21:15)
[2018-02-11] MEDS: HEPARIN SOD (PORCINE) 5000 UNITS/ML VIAL SQ ×2 (06:31→21:16)
[2018-02-11] MEDS: CALCIUM ACETATE 667 MG GELCAP PO ×2 (06:31→18:19)
[2018-02-11] MEDS ORDERED: VANCOMYCIN HCL 1,000 MG, VIAL MATE ADAPTER 1 EACH in D5W 250 ML IV (08:00)
[2018-02-11] MEDS: METOPROLOL TART 25 MG TABLET PO ×2 (08:11→21:19)
[2018-02-11] MEDS: VANCOMYCIN HCL 750 MG, VIAL MATE ADAPTER 1 EACH in D5W 250 ML IV ×2 (08:32→15:30)
[2018-02-11] MEDS: HEPARIN 1,000 UNITS/ML 10ML VIAL (FOR RADIOLOGY& DIALYSIS ONLY) IV (11:00)
[2018-02-11] MEDS: HEPARIN 1,000 UNITS/ML 10ML VIAL (FOR RADIOLOGY& DIALYSIS ONLY) XX (11:00)
[2018-02-11] MEDS: PANTOPRAZOLE 40MG TAB (PROTONIX) PO (14:45)
[2018-02-11] MEDS: FEBUXOSTAT 40 MG TABLET (ULORIC) PO (14:45)
[2018-02-11] MEDS: CLOPIDOGREL 75 MG TAB PO (14:45)
[2018-02-11] MEDS: **VANCO AFTER HD** MISC XX (16:00)
[2018-02-11] MEDS: ATORVASTATIN 20 MG TAB PO (21:16)
[2018-02-12] MEDS: PIPERACILLIN/TAZOBACTAM SOD 2.25 GM in D5W MINI-BAG PLUS 50 ML IV ×3 (02:08→17:10)
[2018-02-12 05:49] LABS: HEMATOCRIT 37.3 % (42.0-52.0); HEMOGLOBIN 11.8 g/dl (13.5-17.5); MEAN CORPUSCULAR HEMOGLOBIN 32.3 pg (27.0-33.0); MEAN CORPUSCULAR HGB CONC 31.6 g/dl (32.0-36.5); MEAN CORPUSCULAR VOLUME 102.2 fl (80.0-96.0); PLATELET COUNT, AUTOMATED 196 10^3/uL (150-450); RED BLOOD COUNT 3.65 10^6/uL (4.30-6.10); WHITE BLOOD COUNT 15.7 10^3/uL (4.0-10.0)
[2018-02-12 06:22] LABS: ANION GAP 11 MEQ/L (8-16); BLOOD UREA NITROGEN 39 MG/DL (7-18); CARBON DIOXIDE LEVEL 24 MEQ/L (21-32); CHLORIDE LEVEL 97 MEQ/L (98-107); CREATININE FOR GFR 5.66 MG/DL (0.70-1.30); GLOMERULAR FILTRATION RATE 10.3 (>35); GLUCOSE, FASTING 250 MG/DL (70-100); POTASSIUM SERUM 4.4 MEQ/L (3.5-5.1); SODIUM LEVEL 132 MEQ/L (136-145); VANCOMYCIN RANDOM 21.6 UG/ML
[2018-02-12] MEDS: HEPARIN SOD (PORCINE) 5000 UNITS/ML VIAL SQ ×2 (08:39→20:41)
[2018-02-12] MEDS: MULTIVITAMINS/MINERALS THERAP 1 TAB PO (08:40)
[2018-02-12] MEDS: METOPROLOL TART 25 MG TABLET PO ×2 (08:40→20:43)
[2018-02-12] MEDS: predniSONE 10 MG TAB PO ×2 (08:40→20:42)
[2018-02-12] MEDS: CALCIUM ACETATE 667 MG GELCAP PO ×2 (08:40→17:10)
[2018-02-12] MEDS: GABAPENTIN 300 MG CAP PO (08:40)
[2018-02-12] MEDS: DOCUSATE SODIUM 100 MG CAP PO (08:40)
[2018-02-12] MEDS: ALBUTEROL SULFATE 2.5 MG/0.5 ML INH NEB SOLN NEB ×3 (10:00→20:19)
[2018-02-12] MEDS: CLOPIDOGREL 75 MG TAB PO (11:28)
[2018-02-12] MEDS: PANTOPRAZOLE 40MG TAB (PROTONIX) PO (11:28)
[2018-02-12] MEDS ORDERED: SLF 3 ML SYR IV (15:45)
[2018-02-12] MEDS: **VANCO AFTER HD** MISC XX (16:00)
[2018-02-12] MEDS: ATORVASTATIN 20 MG TAB PO (20:41)
[2018-02-12] MEDS: SLF 3 ML SYR IV (20:42)
[2018-02-13] MEDS: PIPERACILLIN/TAZOBACTAM SOD 2.25 GM in D5W MINI-BAG PLUS 50 ML IV ×3 (02:04→18:17)
[2018-02-13 05:07] LABS: HEMATOCRIT 36.2 % (42.0-52.0); HEMOGLOBIN 11.5 g/dl (13.5-17.5); MEAN CORPUSCULAR HEMOGLOBIN 31.9 pg (27.0-33.0); MEAN CORPUSCULAR HGB CONC 31.8 g/dl (32.0-36.5); MEAN CORPUSCULAR VOLUME 100.6 fl (80.0-96.0); PLATELET COUNT, AUTOMATED 216 10^3/uL (150-450); RED CELL DISTRIBUTION WIDTH 15.1 % (11.5-14.5); WHITE BLOOD COUNT 11.9 10^3/uL (4.0-10.0)
[2018-02-13 05:34] LABS: ANION GAP 12 MEQ/L (8-16); BLOOD UREA NITROGEN 52 MG/DL (7-18); CALCIUM LEVEL 8.3 MG/DL (8.8-10.2); CARBON DIOXIDE LEVEL 26 MEQ/L (21-32); CHLORIDE LEVEL 94 MEQ/L (98-107); GLOMERULAR FILTRATION RATE 7.7 (>35); GLUCOSE, FASTING 287 MG/DL (70-100); POTASSIUM SERUM 4.4 MEQ/L (3.5-5.1); SODIUM LEVEL 132 MEQ/L (136-145)
[2018-02-13] MEDS: MULTIVITAMINS/MINERALS THERAP 1 TAB PO (05:34)
[2018-02-13] MEDS: DOCUSATE SODIUM 100 MG CAP PO (05:34)
[2018-02-13] MEDS: GABAPENTIN 300 MG CAP PO (05:34)
[2018-02-13] MEDS: predniSONE 10 MG TAB PO ×2 (05:34→20:37)
[2018-02-13] MEDS: CALCIUM ACETATE 667 MG GELCAP PO ×2 (05:34→18:16)
[2018-02-13] MEDS: SLF 3 ML SYR IV ×3 (05:35→20:36)
[2018-02-13] MEDS: ALBUTEROL SULFATE 2.5 MG/0.5 ML INH NEB SOLN NEB ×3 (07:29→20:19)
[2018-02-13] MEDS: HEPARIN SOD (PORCINE) 5000 UNITS/ML VIAL SQ ×2 (07:49→20:36)
[2018-02-13] MEDS: METOPROLOL TART 25 MG TABLET PO ×2 (07:52→20:37)
[2018-02-13] MEDS: HEPARIN 1,000 UNITS/ML 10ML VIAL (FOR RADIOLOGY& DIALYSIS ONLY) IV (12:28)
[2018-02-13] MEDS: PANTOPRAZOLE 40MG TAB (PROTONIX) PO (13:12)
[2018-02-13] MEDS: FEBUXOSTAT 40 MG TABLET (ULORIC) PO (13:12)
[2018-02-13] MEDS: CLOPIDOGREL 75 MG TAB PO (13:13)
[2018-02-13] MEDS: VANCOMYCIN HCL 750 MG, VIAL MATE ADAPTER 1 EACH in D5W 250 ML IV (16:49)
[2018-02-13] MEDS: **VANCO AFTER HD** MISC XX (16:49)
[2018-02-13] MEDS: NYSTATIN 100,000 UNITS/GM TOPICAL PWD 15 GM TOP (20:36)
[2018-02-13] MEDS: ATORVASTATIN 20 MG TAB PO (20:37)
[2018-02-14] MEDS: SLF 3 ML SYR IV ×3 (02:15→21:51)
[2018-02-14] MEDS: PIPERACILLIN/TAZOBACTAM SOD 2.25 GM in D5W MINI-BAG PLUS 50 ML IV (02:15)
[2018-02-14 04:47] LABS: HEMATOCRIT 35.3 % (42.0-52.0); MEAN CORPUSCULAR HEMOGLOBIN 31.7 pg (27.0-33.0); MEAN CORPUSCULAR HGB CONC 31.2 g/dl (32.0-36.5); MEAN CORPUSCULAR VOLUME 101.7 fl (80.0-96.0); PLATELET COUNT, AUTOMATED 229 10^3/uL (150-450); RED BLOOD COUNT 3.47 10^6/uL (4.30-6.10); RED CELL DISTRIBUTION WIDTH 15.7 % (11.5-14.5); WHITE BLOOD COUNT 10.7 10^3/uL (4.0-10.0)
[2018-02-14 05:09] LABS: ANION GAP 9 MEQ/L (8-16); BLOOD UREA NITROGEN 27 MG/DL (7-18); CALCIUM LEVEL 8.2 MG/DL (8.8-10.2); CARBON DIOXIDE LEVEL 27 MEQ/L (21-32); CHLORIDE LEVEL 100 MEQ/L (98-107); CREATININE FOR GFR 4.91 MG/DL (0.70-1.30); GLOMERULAR FILTRATION RATE 12.1 (>35); GLUCOSE, FASTING 302 MG/DL (70-100); POTASSIUM SERUM 4.4 MEQ/L (3.5-5.1); SODIUM LEVEL 136 MEQ/L (136-145)
[2018-02-14] MEDS: ALBUTEROL SULFATE 2.5 MG/0.5 ML INH NEB SOLN NEB ×3 (07:28→20:00)
[2018-02-14] MEDS: HEPARIN SOD (PORCINE) 5000 UNITS/ML VIAL SQ ×2 (08:52→21:51)
[2018-02-14] MEDS: GABAPENTIN 300 MG CAP PO (08:52)
[2018-02-14] MEDS: CALCIUM ACETATE 667 MG GELCAP PO ×2 (08:52→17:48)
[2018-02-14] MEDS: MULTIVITAMINS/MINERALS THERAP 1 TAB PO (08:53)
[2018-02-14] MEDS: predniSONE 10 MG TAB PO ×2 (08:53→21:49)
[2018-02-14] MEDS: DOCUSATE SODIUM 100 MG CAP PO (08:53)
[2018-02-14] MEDS: NYSTATIN 100,000 UNITS/GM TOPICAL PWD 15 GM TOP ×2 (08:53→21:51)
[2018-02-14] MEDS: METOPROLOL TART 25 MG TABLET PO ×2 (08:53→21:51)
[2018-02-14] MEDS: PANTOPRAZOLE 40MG TAB (PROTONIX) PO (12:16)
[2018-02-14] MEDS: CLOPIDOGREL 75 MG TAB PO (12:16)
[2018-02-14] MEDS: ATORVASTATIN 20 MG TAB PO (21:49)
[2018-02-15] MEDS: SLF 3 ML SYR IV (05:24)
[2018-02-15 06:11] LABS: HEMATOCRIT 35.8 % (42.0-52.0); HEMOGLOBIN 11.1 g/dl (13.5-17.5); MEAN CORPUSCULAR HEMOGLOBIN 31.7 pg (27.0-33.0); MEAN CORPUSCULAR VOLUME 102.3 fl (80.0-96.0); PLATELET COUNT, AUTOMATED 210 10^3/uL (150-450); RED CELL DISTRIBUTION WIDTH 15.7 % (11.5-14.5); WHITE BLOOD COUNT 10.6 10^3/uL (4.0-10.0)
[2018-02-15 06:19] LABS: ANION GAP 10 MEQ/L (8-16); BLOOD UREA NITROGEN 32 MG/DL (7-18); CALCIUM LEVEL 8.2 MG/DL (8.8-10.2); CARBON DIOXIDE LEVEL 25 MEQ/L (21-32); CHLORIDE LEVEL 99 MEQ/L (98-107); CREATININE FOR GFR 6.72 MG/DL (0.70-1.30); GLOMERULAR FILTRATION RATE 8.5 (>35); GLUCOSE, FASTING 342 MG/DL (70-100); POTASSIUM SERUM 4.7 MEQ/L (3.5-5.1); SODIUM LEVEL 134 MEQ/L (136-145)
[2018-02-15] MEDS: ALBUTEROL SULFATE 2.5 MG/0.5 ML INH NEB SOLN NEB (07:56)
[2018-02-15] MEDS: HEPARIN SOD (PORCINE) 5000 UNITS/ML VIAL SQ (08:53)
[2018-02-15] MEDS: DOCUSATE SODIUM 100 MG CAP PO (08:53)
[2018-02-15] MEDS: METOPROLOL TART 25 MG TABLET PO (08:53)
[2018-02-15] MEDS: CALCIUM ACETATE 667 MG GELCAP PO (08:53)
[2018-02-15] MEDS: MULTIVITAMINS/MINERALS THERAP 1 TAB PO (08:53)
[2018-02-15] MEDS: GABAPENTIN 300 MG CAP PO (08:53)
[2018-02-15] MEDS: predniSONE 10 MG TAB PO (08:53)
[2018-02-15] MEDS: NYSTATIN 100,000 UNITS/GM TOPICAL PWD 15 GM TOP (08:54)
[2018-02-15] MEDS ORDERED: HEPARIN 1,000 UNITS/ML 10ML VIAL (FOR RADIOLOGY& DIALYSIS ONLY) IV (10:15)
[2018-02-15] MEDS ORDERED: HEPARIN 1,000 UNITS/ML 10ML VIAL (FOR RADIOLOGY& DIALYSIS ONLY) XX (10:15)
[2018-02-15] MEDS: FEBUXOSTAT 40 MG TABLET (ULORIC) PO (11:55)
[2018-02-15] MEDS: CLOPIDOGREL 75 MG TAB PO (11:55)
[2018-02-15] MEDS: PANTOPRAZOLE 40MG TAB (PROTONIX) PO (11:55)
== END 2018-02-15 13:22 | DRG 871 ==
LOC: M PCU 02-09 20:37 → M ED 17:17 → M ED INP 21:52
PROC: 5A1D70Z Performance of Urinary Filtration, Intermittent, Less than 6 Hours Per Day (ICD-10-PCS; principal; 2018-02-11)
DX: A41.9 Sepsis, unspecified organism (principal); N18.6 End stage renal disease; J18.9 Pneumonia, unspecified organism; I50.22 Chronic systolic (congestive) heart failure; I13.2 Hypertensive heart and chronic kidney disease with heart failure and with stage 5 chronic kidney disease, or end stage renal disease; E87.2 Acidosis; E87.1 Hypo-osmolality and hyponatremia; E87.5 Hyperkalemia; J44.9 Chronic obstructive pulmonary disease, unspecified; E11.51 Type 2 diabetes mellitus with diabetic peripheral angiopathy without gangrene; D63.8 Anemia in other chronic diseases classified elsewhere; K21.9 Gastro-esophageal reflux disease without esophagitis; E78.5 Hyperlipidemia, unspecified; E11.22 Type 2 diabetes mellitus with diabetic chronic kidney disease; Z99.2 Dependence on renal dialysis; Z99.81 Dependence on supplemental oxygen; Z87.891 Personal history of nicotine dependence; Z79.52 Long term (current) use of systemic steroids; Z79.899 Other long term (current) drug therapy

== ENCOUNTER → 2018-03-03 | Outpatient (REF) | payer MEDICARE, MEDICAID ==
[2018-03-03 13:27] LABS: HEMATOCRIT 36.7 % (42.0-52.0); HEMOGLOBIN 10.8 g/dl (13.5-17.5); MEAN CORPUSCULAR HEMOGLOBIN 32.3 pg (27.0-33.0); MEAN CORPUSCULAR HGB CONC 29.4 g/dl (32.0-36.5); MEAN CORPUSCULAR VOLUME 109.9 fl (80.0-96.0); PLATELET COUNT, AUTOMATED 285 10^3/uL (150-450); RED BLOOD COUNT 3.34 10^6/uL (4.30-6.10); RED CELL DISTRIBUTION WIDTH 15.2 % (11.5-14.5); WHITE BLOOD COUNT 6.3 10^3/uL (4.0-10.0)
[2018-03-03 13:43] LABS: ANION GAP 4 MEQ/L (8-16); BLOOD UREA NITROGEN 13 MG/DL (7-18); CALCIUM LEVEL 8.6 MG/DL (8.8-10.2); CARBON DIOXIDE LEVEL 32 MEQ/L (21-32); CHLORIDE LEVEL 102 MEQ/L (98-107); CREATININE FOR GFR 5.03 MG/DL (0.70-1.30); GLOMERULAR FILTRATION RATE 11.8 (>35); GLUCOSE, FASTING 196 MG/DL (70-100); POTASSIUM SERUM 4.1 MEQ/L (3.5-5.1); SODIUM LEVEL 138 MEQ/L (136-145)
== END ==
LOC: SKLAB3 11:53
DX: R06.02 Shortness of breath (principal)
CPT/HCPCS: 71045

== ENCOUNTER 2018-03-10 17:06 | Inpatient (IN) | payer MEDICARE, MEDICAID ==
[2018-03-10 17:58] LABS: HEMATOCRIT 39.9 % (42.0-52.0); HEMOGLOBIN 11.6 g/dl (13.5-17.5); MEAN CORPUSCULAR HEMOGLOBIN 32.2 pg (27.0-33.0); MEAN CORPUSCULAR HGB CONC 29.1 g/dl (32.0-36.5); MEAN CORPUSCULAR VOLUME 110.8 fl (80.0-96.0); PLATELET COUNT, AUTOMATED 391 10^3/uL (150-450); RED CELL DISTRIBUTION WIDTH 14.8 % (11.5-14.5); WHITE BLOOD COUNT 6.8 10^3/uL (4.0-10.0)
[2018-03-10 18:04] LABS: POS COUNT POS FLAG; POSITIVE MORPH POS FLAG
[2018-03-10 18:05] LABS: ADD MANUAL DIFFER YES; DIFF SLIDE NUMBER 327
[2018-03-10 18:25] LABS: ATYPICAL LYMPH 3 % (0-5); BANDS 6 % (< 11); EOSINOPHILS 3 % (0-5); LYMPHOCYTES 15 % (16-52); METAMYELOCYTES 4 % (0-0); MONOCYTES 16 % (0-8); NEUTROPHILS 53 % (35-75); PLATELET ESTIMATE NORMAL (NORMAL)
[2018-03-10 18:26] LABS: POLYCHROMASIA 1+
[2018-03-10 18:36] LABS: ALBUMIN/GLOBULIN RATIO 0.51 (1.00-1.93); ALKALINE PHOSPHATASE 69 U/L (45-117); ALT/SGPT 9 U/L (12-78); ANION GAP 7 MEQ/L (8-16); AST/SGOT 13 U/L (7-37); BILIRUBIN,DIRECT 0.1 MG/DL (0.0-0.2); BILIRUBIN,TOTAL 0.3 MG/DL (0.2-1.0); BLOOD UREA NITROGEN 30 MG/DL (7-18); CALCIUM LEVEL 8.3 MG/DL (8.8-10.2); CARBON DIOXIDE LEVEL 30 MEQ/L (21-32); CHLORIDE LEVEL 104 MEQ/L (98-107); CPK CREATINE PHOSPHOKINASE 37 U/L (39-308); ETHYL ALCOHOL (ETHANOL) < 0.003 % (0.000-0.010); GLOMERULAR FILTRATION RATE 6.5 (>35); GLUCOSE, FASTING 154 MG/DL (70-100); MB/CK RELATIVE INDEX 3.51 (< OR =4); POTASSIUM SERUM 5.4 MEQ/L (3.5-5.1); SODIUM LEVEL 141 MEQ/L (136-145); TOTAL PROTEIN 5.9 GM/DL (6.4-8.2); TROPONIN I < 0.02 NG/ML (< 0.10)
[2018-03-10 19:31] LABS: ABG HCO3 28.3 MEQ/L (22.0-26.0); ABG O2 SATURATION 95.2 % (95.0-99.0); ABG STANDARD HCO3 24.5 MEQ/L (22.0-26.0); ABG TOTAL CO2 30.3 MEQ/L (23.0-31.0); ABG pH (ARTERIAL) 7.258 UNITS (7.350-7.450)
[2018-03-10 19:33] LABS: ABG PARTIAL PRESSURE CO2 64.9 mmHg (35.0-45.0)
[2018-03-10] MEDS: NALOXONE INJ 0.4 MG/1 ML VIAL (J2310) IV (19:43)
[2018-03-10] MEDS ORDERED: IPRATROPIUM 0.5MG/ALBUTEROL 2.5MG INH SOL UD 3ML (DUONEB)(J7620) NEB (20:15)
[2018-03-10 20:24] LABS: BILIRUBIN, URINE MANUAL NEGATIVE (NEGATIVE); BLOOD URINE MANUAL RFX POSITIVE (NEGATIVE); GLUCOSE, URINE (UA) MANUAL NEGATIVE (NEGATIVE); KETONE, URINE MANUAL NEGATIVE (NEGATIVE); NITRITE, URINE MANUAL RFX OBSCURED (NEGATIVE); PROTEIN, URINE MANUAL REFLEX 3+ mg/dL (NEGATIVE); URINE COMMENT YES; UROBILINOGEN, URINE MANUAL NORMAL (NORMAL)
[2018-03-10 20:25] LABS: WBC, URINE MAN RFX TNTC /hpf (0-3)
[2018-03-10] MEDS ORDERED: ISOVUE-370 76% 100ML VIAL (Q9967) As Ordered (20:25)
[2018-03-10 20:26] LABS: BACTERIA, URINE MOD AMOUNT; HYALINE CAST, URINE NONE SEEN /lpf (0-1); MICROSCOPIC EXAM UNSPUN; SQUAMOUS EPITHELIAL CELL URINE NONE SEEN /hpf (SMALL AMT); YEAST, URINE SMALL AMOUNT
[2018-03-10] MEDS ORDERED: ONDANSETRON 4MG/2ML VIAL (J2405) IV (20:30)
[2018-03-10 20:41] LABS: AMPHETAMINES LEVEL URINE NEGATIVE (NEGATIVE); BARBITURATES URINE NEGATIVE (NEGATIVE); BENZODIAZEPINES URINE NEGATIVE (NEGATIVE); CANNABINOIDS URINE NEGATIVE (NEGATIVE); COCAINE METABOLITE URINE NEGATIVE (NEGATIVE); METHADONE URINE NEGATIVE (NEGATIVE); OPIATES URINE NEGATIVE (NEGATIVE); PHENCYCLIDINE URINE NEGATIVE (NEGATIVE)
[2018-03-10] MEDS ORDERED: GLUCAGON FOR INJ 1 MG VIAL (J1610) SC (21:00)
[2018-03-10] MEDS ORDERED: DEXTROSE 50% 50 ML SYRINGE IV (21:00)
[2018-03-10] MEDS ORDERED: BISACODYL 10 MG SUPP PR (21:00)
[2018-03-10] MEDS ORDERED: GLUCOSE 4 GM CHEW TABLET PO (21:00)
[2018-03-10] MEDS ORDERED: guaiFENesin DM LIQ 10ML UD PO (21:00)
[2018-03-10] MEDS: ATORVASTATIN 20 MG TAB PO (21:46)
[2018-03-10] MEDS: METOPROLOL TART 25 MG TABLET PO (21:46)
[2018-03-10] MEDS: HEPARIN SOD (PORCINE) 5000 UNITS/ML VIAL SC (21:46)
[2018-03-10] MEDS: AZITHROMYCIN INJ 500 MG, VIAL MATE ADAPTER 1 EACH in D5W 250 ML IV (21:47)
[2018-03-10] MEDS: SENOKOT S TAB PO (21:47)
[2018-03-10 22:45] LABS: AMMONIA 19 uMOL/L (<32)
[2018-03-10 22:51] LABS: ABG HCO3 26.9 MEQ/L (22.0-26.0); ABG O2 SATURATION 88.1 % (95.0-99.0); ABG PARTIAL PRESSURE CO2 54.6 mmHg (35.0-45.0); ABG PARTIAL PRESSURE O2 55.2 mmHg (75.0-100.0); ABG STANDARD HCO3 24.3 MEQ/L (22.0-26.0); ABG TOTAL CO2 28.6 MEQ/L (23.0-31.0); ABG pH (ARTERIAL) 7.311 UNITS (7.350-7.450)
[2018-03-10 22:53] LABS: CPK CREATINE PHOSPHOKINASE 45 U/L (39-308); MB/CK RELATIVE INDEX 2.89 (< OR =4); TROPONIN I < 0.02 NG/ML (< 0.10)
[2018-03-10] MEDS ORDERED: CEFEPIME HCL 0.5 GM in D5W MINI-BAG PLUS 50 ML IV (23:00)
[2018-03-10 23:26] LABS: ANION GAP 11 MEQ/L (8-16); BLOOD UREA NITROGEN 31 MG/DL (7-18); CALCIUM LEVEL 8.4 MG/DL (8.8-10.2); CARBON DIOXIDE LEVEL 25 MEQ/L (21-32); CHLORIDE LEVEL 103 MEQ/L (98-107); GLOMERULAR FILTRATION RATE 6.5 (>35); GLUCOSE, FASTING 136 MG/DL (70-100); POTASSIUM SERUM 5.6 MEQ/L (3.5-5.1); SODIUM LEVEL 139 MEQ/L (136-145)
[2018-03-10] MEDS: CEFEPIME HCL 1 GM in D5W MINI-BAG PLUS 50 ML IV (23:40)
[2018-03-11] MEDS ORDERED: SOD POLYSTYRENE SULFONATE SUSP 15 GM/60 ML UD PO
[2018-03-11] MEDS: HumaLOG INSULIN (NovoLOG) PER UNIT SC ×5 (00:18→22:35)
[2018-03-11 00:43] LABS: BEDSIDE GLUCOSE 125 MG/DL (83-110)
[2018-03-11] MEDS: methylPREDNISolone INJ 125 MG/2 ML VIAL (J2930) IV ×4 (00:53→22:34)
[2018-03-11] MEDS: HumuLIN R (REGULAR) INSULIN (NovoLIN R) **100U/ML** PER UNIT SC (01:36)
[2018-03-11] MEDS: DEXTROSE 50% 50 ML SYRINGE IV (01:36)
[2018-03-11 01:48] LABS: ABG BASE EXCESS 1.3 (-2.0-2.0); ABG HCO3 28.7 MEQ/L (22.0-26.0); ABG O2 SATURATION 91.3 % (95.0-99.0); ABG PARTIAL PRESSURE CO2 58.8 mmHg (35.0-45.0); ABG STANDARD HCO3 25.5 MEQ/L (22.0-26.0); ABG TOTAL CO2 30.5 MEQ/L (23.0-31.0); ABG pH (ARTERIAL) 7.306 UNITS (7.350-7.450)
[2018-03-11] MEDS: IPRATROPIUM 0.5MG/ALBUTEROL 2.5MG INH SOL UD 3ML (DUONEB)(J7620) NEB ×4 (02:00→19:48)
[2018-03-11 05:23] LABS: ABG BASE EXCESS 4.4 (-2.0-2.0); ABG HCO3 31.3 MEQ/L (22.0-26.0); ABG O2 SATURATION 90.5 % (95.0-99.0); ABG PARTIAL PRESSURE CO2 58.9 mmHg (35.0-45.0); ABG PARTIAL PRESSURE O2 57.4 mmHg (75.0-100.0); ABG STANDARD HCO3 28.3 MEQ/L (22.0-26.0); ABG TOTAL CO2 33.1 MEQ/L (23.0-31.0); ABG pH (ARTERIAL) 7.343 UNITS (7.350-7.450)
[2018-03-11 06:15] LABS: BEDSIDE GLUCOSE 145 MG/DL (83-110)
[2018-03-11 07:30] LABS: HEMATOCRIT 37.1 % (42.0-52.0); MEAN CORPUSCULAR HEMOGLOBIN 31.8 pg (27.0-33.0); MEAN CORPUSCULAR HGB CONC 29.6 g/dl (32.0-36.5); MEAN CORPUSCULAR VOLUME 107.2 fl (80.0-96.0); PLATELET COUNT, AUTOMATED 373 10^3/uL (150-450); RED BLOOD COUNT 3.46 10^6/uL (4.30-6.10); RED CELL DISTRIBUTION WIDTH 14.7 % (11.5-14.5); WHITE BLOOD COUNT 6.3 10^3/uL (4.0-10.0)
[2018-03-11] MEDS: CALCIUM ACETATE 667 MG GELCAP PO ×2 (08:00→18:15)
[2018-03-11 08:08] LABS: ALBUMIN/GLOBULIN RATIO 0.42 (1.00-1.93); ALKALINE PHOSPHATASE 71 U/L (45-117); ALT/SGPT 11 U/L (12-78); ANION GAP 5 MEQ/L (8-16); AST/SGOT 15 U/L (7-37); BILIRUBIN,TOTAL 0.2 MG/DL (0.2-1.0); BLOOD UREA NITROGEN 34 MG/DL (7-18); CALCIUM LEVEL 8.6 MG/DL (8.8-10.2); CARBON DIOXIDE LEVEL 28 MEQ/L (21-32); CHLORIDE LEVEL 104 MEQ/L (98-107); CPK CREATINE PHOSPHOKINASE 27 U/L (39-308); CREATININE FOR GFR 8.93 MG/DL (0.70-1.30); GLOMERULAR FILTRATION RATE 6.1 (>35); GLUCOSE, FASTING 142 MG/DL (70-100); MAGNESIUM LEVEL 2.2 MG/DL (1.8-2.4); MB/CK RELATIVE INDEX 4.07 (< OR =4); SODIUM LEVEL 137 MEQ/L (136-145); TOTAL PROTEIN 6.8 GM/DL (6.4-8.2); TROPONIN I < 0.02 NG/ML (< 0.10)
[2018-03-11] MEDS: METOPROLOL TART 25 MG TABLET PO ×3 (09:00→22:36)
[2018-03-11] MEDS: HEPARIN 1,000 UNITS/ML 10ML VIAL (FOR RADIOLOGY& DIALYSIS ONLY) IV (13:00)
[2018-03-11 14:13] LABS: BEDSIDE GLUCOSE 171 MG/DL (83-110)
[2018-03-11] MEDS: DOCUSATE SODIUM 100 MG CAP PO (15:57)
[2018-03-11] MEDS: MIRALAX *UNIT DOSE* 17GM PACKET PO (15:57)
[2018-03-11] MEDS: PANTOPRAZOLE 40MG TAB (PROTONIX) PO (15:57)
[2018-03-11] MEDS: CLOPIDOGREL 75 MG TAB PO (15:57)
[2018-03-11] MEDS: GABAPENTIN 300 MG CAP PO (15:58)
[2018-03-11] MEDS: HEPARIN SOD (PORCINE) 5000 UNITS/ML VIAL SC ×2 (15:58→22:34)
[2018-03-11] MEDS: SENOKOT S TAB PO ×3 (15:58→22:36)
[2018-03-11] MEDS: VANCOMYCIN HCL 1,000 MG, VIAL MATE ADAPTER 1 EACH in D5W 250 ML IV (17:44)
[2018-03-11] MEDS: ATORVASTATIN 20 MG TAB PO ×2 (21:00→22:35)
[2018-03-11 22:26] LABS: BEDSIDE GLUCOSE 289 MG/DL (83-110)
[2018-03-11] MEDS: AZITHROMYCIN INJ 500 MG, VIAL MATE ADAPTER 1 EACH in D5W 250 ML IV (22:34)
[2018-03-11] MEDS: CEFEPIME HCL 0.5 GM in D5W MINI-BAG PLUS 50 ML IV (23:42)
[2018-03-12] MEDS: IPRATROPIUM 0.5MG/ALBUTEROL 2.5MG INH SOL UD 3ML (DUONEB)(J7620) NEB ×4 (00:05→21:16)
[2018-03-12] MEDS: methylPREDNISolone INJ 125 MG/2 ML VIAL (J2930) IV (05:59)
[2018-03-12 06:12] LABS: HEMATOCRIT 35.6 % (42.0-52.0); HEMOGLOBIN 10.8 g/dl (13.5-17.5); MEAN CORPUSCULAR HEMOGLOBIN 31.9 pg (27.0-33.0); MEAN CORPUSCULAR HGB CONC 30.3 g/dl (32.0-36.5); PLATELET COUNT, AUTOMATED 399 10^3/uL (150-450); RED BLOOD COUNT 3.39 10^6/uL (4.30-6.10); RED CELL DISTRIBUTION WIDTH 14.6 % (11.5-14.5); WHITE BLOOD COUNT 6.6 10^3/uL (4.0-10.0)
[2018-03-12 06:33] LABS: ALBUMIN 2.2 GM/DL (3.2-5.2); ALBUMIN/GLOBULIN RATIO 0.46 (1.00-1.93); ALKALINE PHOSPHATASE 68 U/L (45-117); ALT/SGPT 10 U/L (12-78); ANION GAP 9 MEQ/L (8-16); AST/SGOT 10 U/L (7-37); BILIRUBIN,TOTAL 0.3 MG/DL (0.2-1.0); BLOOD UREA NITROGEN 32 MG/DL (7-18); C REACTIVE PROTEIN QUANTITATIV 8.36 MG/DL (0.00-0.30); CALCIUM LEVEL 8.2 MG/DL (8.8-10.2); CARBON DIOXIDE LEVEL 27 MEQ/L (21-32); CHLORIDE LEVEL 97 MEQ/L (98-107); CREATININE FOR GFR 5.98 MG/DL (0.70-1.30); GLOMERULAR FILTRATION RATE 9.7 (>35); GLUCOSE, FASTING 300 MG/DL (70-100); MAGNESIUM LEVEL 2.1 MG/DL (1.8-2.4); POTASSIUM SERUM 4.3 MEQ/L (3.5-5.1); SODIUM LEVEL 133 MEQ/L (136-145)
[2018-03-12] MEDS: GABAPENTIN 300 MG CAP PO (08:30)
[2018-03-12] MEDS: HumaLOG INSULIN (NovoLOG) PER UNIT SC ×4 (08:30→21:25)
[2018-03-12] MEDS: SENOKOT S TAB PO ×2 (08:30→21:23)
[2018-03-12] MEDS: CALCIUM ACETATE 667 MG GELCAP PO ×2 (08:31→18:47)
[2018-03-12] MEDS: DOCUSATE SODIUM 100 MG CAP PO (08:31)
[2018-03-12] MEDS: NORCO, ANEXSIA 5/325MG TABLET (HYDROcodone/ACETAMINOPHEN) PO (08:31)
[2018-03-12] MEDS: METOPROLOL TART 25 MG TABLET PO ×2 (08:32→21:23)
[2018-03-12] MEDS: HEPARIN SOD (PORCINE) 5000 UNITS/ML VIAL SC ×2 (09:03→21:24)
[2018-03-12] MEDS: HEPARIN 1,000 UNITS/ML 10ML VIAL (FOR RADIOLOGY& DIALYSIS ONLY) IV (12:00)
[2018-03-12 12:25] LABS: BEDSIDE GLUCOSE 172 MG/DL (83-110)
[2018-03-12 12:32] LABS: BEDSIDE GLUCOSE 293 MG/DL (83-110)
[2018-03-12] MEDS: PANTOPRAZOLE 40MG TAB (PROTONIX) PO (12:40)
[2018-03-12] MEDS: FEBUXOSTAT 40 MG TABLET (ULORIC) PO (12:40)
[2018-03-12] MEDS: CLOPIDOGREL 75 MG TAB PO (12:40)
[2018-03-12] MEDS: MIRALAX *UNIT DOSE* 17GM PACKET PO (12:43)
[2018-03-12 17:43] LABS: BEDSIDE GLUCOSE 131 MG/DL (83-110)
[2018-03-12] MEDS: VANCOMYCIN HCL 1,000 MG, VIAL MATE ADAPTER 1 EACH in D5W 250 ML IV (18:48)
[2018-03-12 20:34] LABS: BEDSIDE GLUCOSE 258 MG/DL (83-110)
[2018-03-12] MEDS: ATORVASTATIN 20 MG TAB PO (21:23)
[2018-03-12] MEDS: methylPREDNISolone INJ 40 MG/1 ML VIAL (J2920) IV (21:24)
[2018-03-12] MEDS: **VANCO AFTER HD** MISC XX (21:40)
[2018-03-13] MEDS: CEFEPIME HCL 0.5 GM in D5W MINI-BAG PLUS 50 ML IV ×2 (00:07→23:02)
[2018-03-13] MEDS: IPRATROPIUM 0.5MG/ALBUTEROL 2.5MG INH SOL UD 3ML (DUONEB)(J7620) NEB ×4 (01:21→20:21)
[2018-03-13 05:36] LABS: HEMATOCRIT 35.1 % (42.0-52.0); HEMOGLOBIN 10.7 g/dl (13.5-17.5); MEAN CORPUSCULAR HEMOGLOBIN 32.1 pg (27.0-33.0); MEAN CORPUSCULAR HGB CONC 30.5 g/dl (32.0-36.5); MEAN CORPUSCULAR VOLUME 105.4 fl (80.0-96.0); PLATELET COUNT, AUTOMATED 368 10^3/uL (150-450); RED BLOOD COUNT 3.33 10^6/uL (4.30-6.10); RED CELL DISTRIBUTION WIDTH 14.6 % (11.5-14.5); WHITE BLOOD COUNT 14.1 10^3/uL (4.0-10.0)
[2018-03-13] MEDS: methylPREDNISolone INJ 40 MG/1 ML VIAL (J2920) IV (05:42)
[2018-03-13 06:01] LABS: ALBUMIN 2.2 GM/DL (3.2-5.2); ALBUMIN/GLOBULIN RATIO 0.49 (1.00-1.93); ALKALINE PHOSPHATASE 64 U/L (45-117); ALT/SGPT 9 U/L (12-78); ANION GAP 11 MEQ/L (8-16); AST/SGOT 10 U/L (7-37); BILIRUBIN,TOTAL 0.3 MG/DL (0.2-1.0); BLOOD UREA NITROGEN 20 MG/DL (7-18); C REACTIVE PROTEIN QUANTITATIV 4.97 MG/DL (0.00-0.30); CALCIUM LEVEL 7.8 MG/DL (8.8-10.2); CARBON DIOXIDE LEVEL 26 MEQ/L (21-32); CHLORIDE LEVEL 97 MEQ/L (98-107); CREATININE FOR GFR 3.95 MG/DL (0.70-1.30); GLOMERULAR FILTRATION RATE 15.6 (>35); GLUCOSE, FASTING 261 MG/DL (70-100); MAGNESIUM LEVEL 1.8 MG/DL (1.8-2.4); POTASSIUM SERUM 3.8 MEQ/L (3.5-5.1); SODIUM LEVEL 134 MEQ/L (136-145); TOTAL PROTEIN 6.7 GM/DL (6.4-8.2)
[2018-03-13] MEDS: HEPARIN SOD (PORCINE) 5000 UNITS/ML VIAL SC ×2 (08:17→21:49)
[2018-03-13] MEDS: DOCUSATE SODIUM 100 MG CAP PO (08:17)
[2018-03-13] MEDS: METOPROLOL TART 25 MG TABLET PO ×2 (08:17→21:50)
[2018-03-13] MEDS: CALCIUM ACETATE 667 MG GELCAP PO ×2 (08:17→17:05)
[2018-03-13] MEDS: HumaLOG INSULIN (NovoLOG) PER UNIT SC ×4 (08:18→21:00)
[2018-03-13] MEDS: SENOKOT S TAB PO ×2 (08:18→21:50)
[2018-03-13] MEDS ORDERED: LIDOCAINE 1% MDV 20ML VIAL As Ordered (09:16)
[2018-03-13] MEDS: LIDOCAINE 1% MDV 20ML VIAL SC (09:20)
[2018-03-13 11:45] LABS: BEDSIDE GLUCOSE 236 MG/DL (83-110)
[2018-03-13] MEDS: PANTOPRAZOLE 40MG TAB (PROTONIX) PO (11:55)
[2018-03-13] MEDS: CLOPIDOGREL 75 MG TAB PO (11:55)
[2018-03-13] MEDS: MIRALAX *UNIT DOSE* 17GM PACKET PO (11:55)
[2018-03-13] MEDS: **VANCO AFTER HD** MISC XX (14:49)
[2018-03-13 15:41] LABS: ALBUMIN 2.3 GM/DL (3.2-5.2); ANION GAP 10 MEQ/L (8-16); BLOOD UREA NITROGEN 28 MG/DL (7-18); CALCIUM LEVEL 8.3 MG/DL (8.8-10.2); CARBON DIOXIDE LEVEL 29 MEQ/L (21-32); CHLORIDE LEVEL 99 MEQ/L (98-107); GLOMERULAR FILTRATION RATE 12.8 (>35); GLUCOSE, FASTING 142 MG/DL (70-100); MAGNESIUM LEVEL 1.9 MG/DL (1.8-2.4); PHOSPHORUS LEVEL 1.8 MG/DL (2.5-4.9); POTASSIUM SERUM 3.6 MEQ/L (3.5-5.1); SODIUM LEVEL 138 MEQ/L (136-145); TROPONIN I 0.02 NG/ML (< 0.10)
[2018-03-13 16:43] LABS: BEDSIDE GLUCOSE 131 MG/DL (83-110)
[2018-03-13 20:09] LABS: BEDSIDE GLUCOSE 209 MG/DL (83-110)
[2018-03-13] MEDS: predniSONE 20 MG TAB PO (21:50)
[2018-03-13] MEDS: ATORVASTATIN 20 MG TAB PO (21:50)
[2018-03-14] MEDS: IPRATROPIUM 0.5MG/ALBUTEROL 2.5MG INH SOL UD 3ML (DUONEB)(J7620) NEB ×4 (02:00→20:00)
[2018-03-14] MEDS ORDERED: SLF 3 ML SYR IV (03:15)
[2018-03-14] MEDS: SLF 3 ML SYR IV ×3 (05:02→20:55)
[2018-03-14 05:29] LABS: HEMATOCRIT 34.5 % (42.0-52.0); HEMOGLOBIN 10.6 g/dl (13.5-17.5); MEAN CORPUSCULAR HEMOGLOBIN 31.6 pg (27.0-33.0); MEAN CORPUSCULAR HGB CONC 30.7 g/dl (32.0-36.5); PLATELET COUNT, AUTOMATED 347 10^3/uL (150-450); RED BLOOD COUNT 3.35 10^6/uL (4.30-6.10); RED CELL DISTRIBUTION WIDTH 14.3 % (11.5-14.5)
[2018-03-14 05:46] LABS: ALBUMIN 2.4 GM/DL (3.2-5.2); ALKALINE PHOSPHATASE 59 U/L (45-117); ALT/SGPT 9 U/L (12-78); ANION GAP 10 MEQ/L (8-16); AST/SGOT 11 U/L (7-37); BILIRUBIN,TOTAL 0.3 MG/DL (0.2-1.0); BLOOD UREA NITROGEN 39 MG/DL (7-18); C REACTIVE PROTEIN QUANTITATIV 2.18 MG/DL (0.00-0.30); CALCIUM LEVEL 8.3 MG/DL (8.8-10.2); CARBON DIOXIDE LEVEL 27 MEQ/L (21-32); CHLORIDE LEVEL 98 MEQ/L (98-107); CREATININE FOR GFR 5.55 MG/DL (0.70-1.30); GLOMERULAR FILTRATION RATE 10.5 (>35); GLUCOSE, FASTING 240 MG/DL (70-100); SODIUM LEVEL 135 MEQ/L (136-145); TOTAL PROTEIN 6.4 GM/DL (6.4-8.2)
[2018-03-14] MEDS: SENOKOT S TAB PO ×2 (07:54→20:54)
[2018-03-14] MEDS: HumaLOG INSULIN (NovoLOG) PER UNIT SC ×4 (07:54→20:55)
[2018-03-14] MEDS: DOCUSATE SODIUM 100 MG CAP PO (07:54)
[2018-03-14] MEDS: HEPARIN SOD (PORCINE) 5000 UNITS/ML VIAL SC ×2 (07:54→20:55)
[2018-03-14] MEDS: predniSONE 20 MG TAB PO (07:55)
[2018-03-14] MEDS: METOPROLOL TART 25 MG TABLET PO ×2 (07:55→20:54)
[2018-03-14 11:32] LABS: BEDSIDE GLUCOSE 220 MG/DL (83-110)
[2018-03-14] MEDS: PANTOPRAZOLE 40MG TAB (PROTONIX) PO (11:36)
[2018-03-14] MEDS: CLOPIDOGREL 75 MG TAB PO (11:36)
[2018-03-14] MEDS: FEBUXOSTAT 40 MG TABLET (ULORIC) PO (11:36)
[2018-03-14] MEDS: MIRALAX *UNIT DOSE* 17GM PACKET PO (11:36)
[2018-03-14] MEDS: **VANCO AFTER HD** MISC XX (13:19)
[2018-03-14 16:40] LABS: BEDSIDE GLUCOSE 200 MG/DL (83-110)
[2018-03-14 20:08] LABS: BEDSIDE GLUCOSE 217 MG/DL (83-110)
[2018-03-14] MEDS: PATIROMER SORBITEX CALCIUM 8.4 GM POWDER PACKET (VELTASSA) PO (20:53)
[2018-03-14] MEDS: predniSONE 5 MG TAB PO (20:54)
[2018-03-14] MEDS: ATORVASTATIN 20 MG TAB PO (20:54)
[2018-03-14] MEDS: CEFEPIME HCL 0.5 GM in D5W MINI-BAG PLUS 50 ML IV (23:00)
[2018-03-15] MEDS: IPRATROPIUM 0.5MG/ALBUTEROL 2.5MG INH SOL UD 3ML (DUONEB)(J7620) NEB ×3 (01:54→20:00)
[2018-03-15 05:22] LABS: HEMATOCRIT 33.1 % (42.0-52.0); HEMOGLOBIN 10.2 g/dl (13.5-17.5); MEAN CORPUSCULAR HGB CONC 30.8 g/dl (32.0-36.5); MEAN CORPUSCULAR VOLUME 103.8 fl (80.0-96.0); PLATELET COUNT, AUTOMATED 305 10^3/uL (150-450); RED BLOOD COUNT 3.19 10^6/uL (4.30-6.10); RED CELL DISTRIBUTION WIDTH 14.3 % (11.5-14.5)
[2018-03-15 05:41] LABS: BEDSIDE GLUCOSE 202 MG/DL (83-110)
[2018-03-15] MEDS: SLF 3 ML SYR IV ×3 (05:42→22:00)
[2018-03-15 05:47] LABS: ALBUMIN 2.3 GM/DL (3.2-5.2); ALBUMIN/GLOBULIN RATIO 0.72 (1.00-1.93); ALKALINE PHOSPHATASE 57 U/L (45-117); ALT/SGPT 10 U/L (12-78); ANION GAP 12 MEQ/L (8-16); AST/SGOT 10 U/L (7-37); BILIRUBIN,TOTAL 0.3 MG/DL (0.2-1.0); BLOOD UREA NITROGEN 51 MG/DL (7-18); C REACTIVE PROTEIN QUANTITATIV 1.48 MG/DL (0.00-0.30); CALCIUM LEVEL 7.8 MG/DL (8.8-10.2); CARBON DIOXIDE LEVEL 26 MEQ/L (21-32); CHLORIDE LEVEL 98 MEQ/L (98-107); GLOMERULAR FILTRATION RATE 8.2 (>35); GLUCOSE, FASTING 186 MG/DL (70-100); POTASSIUM SERUM 4.5 MEQ/L (3.5-5.1); SODIUM LEVEL 136 MEQ/L (136-145); TOTAL PROTEIN 5.5 GM/DL (6.4-8.2); VANCOMYCIN RANDOM 18.8 UG/ML
[2018-03-15] MEDS: HumaLOG INSULIN (NovoLOG) PER UNIT SC ×4 (05:49→21:00)
[2018-03-15] MEDS: HEPARIN SOD (PORCINE) 5000 UNITS/ML VIAL SC ×2 (05:49→21:33)
[2018-03-15] MEDS: predniSONE 5 MG TAB PO ×2 (05:50→21:28)
[2018-03-15] MEDS: SENOKOT S TAB PO ×2 (05:50→21:28)
[2018-03-15] MEDS: DOCUSATE SODIUM 100 MG CAP PO (05:50)
[2018-03-15] MEDS: METOPROLOL TART 25 MG TABLET PO ×2 (05:50→21:30)
[2018-03-15] MEDS: NORCO, ANEXSIA 5/325MG TABLET (HYDROcodone/ACETAMINOPHEN) PO (05:51)
[2018-03-15] MEDS ORDERED: HEPARIN 1,000 UNITS/ML 10ML VIAL (FOR RADIOLOGY& DIALYSIS ONLY) XX (10:45)
[2018-03-15] MEDS ORDERED: HEPARIN 1,000 UNITS/ML 10ML VIAL (FOR RADIOLOGY& DIALYSIS ONLY) IV (10:45)
[2018-03-15] MEDS ORDERED: HEPARIN 1,000 UNITS/ML 10ML VIAL (FOR RADIOLOGY& DIALYSIS ONLY) As Ordered (12:08)
[2018-03-15] MEDS ORDERED: LIDOCAINE 2% MDV 20 ML VIAL As Ordered (12:08)
[2018-03-15 13:30] LABS: BEDSIDE GLUCOSE 210 MG/DL (83-110)
[2018-03-15] MEDS: PANTOPRAZOLE 40MG TAB (PROTONIX) PO (13:46)
[2018-03-15] MEDS: CLOPIDOGREL 75 MG TAB PO (13:46)
[2018-03-15] MEDS: MIRALAX *UNIT DOSE* 17GM PACKET PO (13:48)
[2018-03-15] MEDS: **VANCO AFTER HD** MISC XX (16:00)
[2018-03-15] MEDS: ATORVASTATIN 20 MG TAB PO (21:28)
[2018-03-15] MEDS: VANCOMYCIN HCL 1,000 MG, VIAL MATE ADAPTER 1 EACH in D5W 250 ML IV (21:31)
[2018-03-15] MEDS ORDERED: DARBEPOETIN 100 MCG/0.5 ML *DIALYSIS* SYRINGE (J0882) IV (22:00)
[2018-03-15 22:21] LABS: BEDSIDE GLUCOSE 147 MG/DL (83-110)
[2018-03-15] MEDS: CEFEPIME HCL 0.5 GM in D5W MINI-BAG PLUS 50 ML IV (23:50)
[2018-03-15] MEDS: ACETAMINOPHEN TAB 650MG DOSE (2X325MG) PO (23:54)
[2018-03-16] MEDS: IPRATROPIUM 0.5MG/ALBUTEROL 2.5MG INH SOL UD 3ML (DUONEB)(J7620) NEB ×3 (01:11→13:22)
[2018-03-16] MEDS: SLF 3 ML SYR IV (05:22)
[2018-03-16 06:00] LABS: HEMATOCRIT 34.8 % (42.0-52.0); HEMOGLOBIN 10.8 g/dl (13.5-17.5); MEAN CORPUSCULAR HEMOGLOBIN 32.3 pg (27.0-33.0); MEAN CORPUSCULAR VOLUME 104.2 fl (80.0-96.0); PLATELET COUNT, AUTOMATED 261 10^3/uL (150-450); RED BLOOD COUNT 3.34 10^6/uL (4.30-6.10); RED CELL DISTRIBUTION WIDTH 14.3 % (11.5-14.5)
[2018-03-16 06:30] LABS: ALBUMIN 2.4 GM/DL (3.2-5.2); ALBUMIN/GLOBULIN RATIO 0.63 (1.00-1.93); ALKALINE PHOSPHATASE 58 U/L (45-117); ALT/SGPT 12 U/L (12-78); ANION GAP 8 MEQ/L (8-16); AST/SGOT 12 U/L (7-37); BILIRUBIN,TOTAL 0.4 MG/DL (0.2-1.0); BLOOD UREA NITROGEN 20 MG/DL (7-18); C REACTIVE PROTEIN QUANTITATIV 0.97 MG/DL (0.00-0.30); CALCIUM LEVEL 8.1 MG/DL (8.8-10.2); CARBON DIOXIDE LEVEL 28 MEQ/L (21-32); CHLORIDE LEVEL 98 MEQ/L (98-107); CREATININE FOR GFR 3.76 MG/DL (0.70-1.30); GLOMERULAR FILTRATION RATE 16.5 (>35); GLUCOSE, FASTING 196 MG/DL (70-100); MAGNESIUM LEVEL 1.8 MG/DL (1.8-2.4); POTASSIUM SERUM 3.7 MEQ/L (3.5-5.1); SODIUM LEVEL 134 MEQ/L (136-145); TOTAL PROTEIN 6.2 GM/DL (6.4-8.2)
[2018-03-16] MEDS: HumaLOG INSULIN (NovoLOG) PER UNIT SC ×2 (08:03→12:15)
[2018-03-16] MEDS: HEPARIN SOD (PORCINE) 5000 UNITS/ML VIAL SC (08:04)
[2018-03-16] MEDS: SENOKOT S TAB PO (08:04)
[2018-03-16] MEDS: DOCUSATE SODIUM 100 MG CAP PO (08:04)
[2018-03-16] MEDS: predniSONE 5 MG TAB PO (08:04)
[2018-03-16] MEDS: METOPROLOL TART 25 MG TABLET PO (08:06)
[2018-03-16] MEDS: ACETAMINOPHEN TAB 650MG DOSE (2X325MG) PO (08:11)
[2018-03-16] MEDS: NORCO, ANEXSIA 5/325MG TABLET (HYDROcodone/ACETAMINOPHEN) PO (10:44)
[2018-03-16 11:49] LABS: BEDSIDE GLUCOSE 179 MG/DL (83-110)
[2018-03-16] MEDS: MIRALAX *UNIT DOSE* 17GM PACKET PO (12:00)
[2018-03-16] MEDS: PANTOPRAZOLE 40MG TAB (PROTONIX) PO (12:14)
[2018-03-16] MEDS: FEBUXOSTAT 40 MG TABLET (ULORIC) PO (12:14)
[2018-03-16] MEDS: CLOPIDOGREL 75 MG TAB PO (12:14)
== END 2018-03-16 14:57 | DRG 189 ==
LOC: M PCU 03-11 13:41 → M ED 17:06 → M ED INP 20:18
PROC: 5A1D70Z Performance of Urinary Filtration, Intermittent, Less than 6 Hours Per Day (ICD-10-PCS; principal; 2018-03-11)
PROC: 0JPT03Z Removal of Infusion Device from Trunk Subcutaneous Tissue and Fascia, Open Approach (ICD-10-PCS; 2018-03-13)
PROC: 02PY33Z Removal of Infusion Device from Great Vessel, Percutaneous Approach (ICD-10-PCS; 2018-03-13)
PROC: 02HV33Z Insertion of Infusion Device into Superior Vena Cava, Percutaneous Approach (ICD-10-PCS; 2018-03-15)
PROC: 0JH63XZ Insertion of Tunneled Vascular Access Device into Chest Subcutaneous Tissue and Fascia, Percutaneous Approach (ICD-10-PCS; 2018-03-15)
DX: J96.02 Acute respiratory failure with hypercapnia (principal); N18.6 End stage renal disease; G93.41 Metabolic encephalopathy; I13.2 Hypertensive heart and chronic kidney disease with heart failure and with stage 5 chronic kidney disease, or end stage renal disease; J44.1 Chronic obstructive pulmonary disease with (acute) exacerbation; N25.81 Secondary hyperparathyroidism of renal origin; R78.81 Bacteremia; J96.11 Chronic respiratory failure with hypoxia; E11.22 Type 2 diabetes mellitus with diabetic chronic kidney disease; K21.9 Gastro-esophageal reflux disease without esophagitis; T39.95XA Adverse effect of unspecified nonopioid analgesic, antipyretic and antirheumatic, initial encounter; E87.5 Hyperkalemia; I50.9 Heart failure, unspecified; I25.10 Atherosclerotic heart disease of native coronary artery without angina pectoris; I48.0 Paroxysmal atrial fibrillation; D63.1 Anemia in chronic kidney disease; E79.0 Hyperuricemia without signs of inflammatory arthritis and tophaceous disease; E78.5 Hyperlipidemia, unspecified; E11.51 Type 2 diabetes mellitus with diabetic peripheral angiopathy without gangrene; E11.40 Type 2 diabetes mellitus with diabetic neuropathy, unspecified; Z99.2 Dependence on renal dialysis; Z89.411 Acquired absence of right great toe; Z89.412 Acquired absence of left great toe; Z87.891 Personal history of nicotine dependence; Z79.02 Long term (current) use of antithrombotics/antiplatelets; Z79.4 Long term (current) use of insulin; Z99.81 Dependence on supplemental oxygen

== ENCOUNTER 2018-04-14 18:57 | Emergency (ER) | payer MEDICARE, MEDICAID ==
[~2018-04-14] VITALS: Ht 165.1 cm; Wt 84.1 kg
[~2018-04-14 18:57] MED LIST changes: -ACET1TAB17 PR; +ACET1TAB55 PR; +ACET65SU PR; -AMLO5TAB2 PO; +AMLO5TAB6 PO; +AMOX500T2 PO; +AVEL1TAB3 PO; +BASA100I SC; +DARB100SYR IV; +GABA-1171 PO; -GABA-279 PO; -GABA-282 PO; +GABA-843 PO; +GLUC1INJ21 SC; -GLUC1VL SC; -GLUC4CHW PO; +GLUC4CHW19 PO; +GUAI100S27 PO; -GUAI100S7 PO; +GUAISYP5 PO; +INSULANT SC; +IPRA0.00 INH; +IPRA0.00 NEB; -IPRASOL4 INH; -IPRASOL4 NEB; -LASI40TA PO; +LASI40TA9 PO; +LEVA1TAB2 PO; +LEVO750T13 PO; -LOSA50TA20 PO; +LOSA50TA88 PO; +METO1TAB87 PO; +MILK120011 PO; -MILKSUS PO; +NEPRLIQ3 PO; +PRED10TA2 PO; -VITA1CAP40 PO; +VITA50005 PO
[2018-04-14] MEDS ORDERED: IPRATROPIUM 0.5MG/ALBUTEROL 2.5MG INH SOL UD 3ML (DUONEB)(J7620) NEB ONE (19:45)
--- NOTE | 2018-04-14 20:41 | REP ---
Portable chest x-ray: Sitting AP view. History: Dyspnea and cough. Comparison study: March 10, 2018. Findings: A right sided tunneled central venous catheter is seen with its tip in the expected location of the superior vena cava. Mildly enlarged heart is seen. There are are the increased interstitial markings bilaterally in the lung bases again noted. No new infiltrate is seen. Electronically Signed by Brad Posada MD 04/14/2018 08:31 P
[2018-04-14] MEDS ORDERED: PRED5TA PO (20:50)
[2018-04-14 21:07] LABS: BASO % 0.3 % (0.0-1.0); HEMATOCRIT 39.5 % (42.0-52.0); HEMOGLOBIN 11.9 g/dl (13.5-17.5); LYMPH # 0.7 10^3/uL (1.5-4.5); MEAN CORPUSCULAR HEMOGLOBIN 31.9 pg (27.0-33.0); MEAN CORPUSCULAR HGB CONC 30.1 g/dl (32.0-36.5); MEAN CORPUSCULAR VOLUME 105.9 fl (80.0-96.0); MONO # 0.8 10^3/uL (0.0-0.8); MONO % 7.7 % (0.0-5.0); NEUTROPHILS # 9.2 10^3/uL (1.8-7.7); NEUTROPHILS % 84.8 % (36.0-66.0); PLATELET COUNT, AUTOMATED 161 10^3/uL (150-450); RED BLOOD COUNT 3.73 10^6/uL (4.30-6.10); WHITE BLOOD COUNT 10.9 10^3/uL (4.0-10.0)
[2018-04-14 21:32] LABS: CREATININE FOR GFR 4.54 MG/DL (0.70-1.30); GLOMERULAR FILTRATION RATE 13.3 (>35); MB/CK RELATIVE INDEX 1.26 (< OR =4); POTASSIUM SERUM 5.3 MEQ/L (3.5-5.1); TROPONIN I 0.02 NG/ML (< 0.10)
[2018-04-14 23:33] VITALS: BP 141/63
[2018-04-14] MEDS ORDERED: ACETAMINOPHEN TAB 650MG DOSE (2X325MG) PO ONE (23:45)
--- NOTE | 2018-04-16 08:49 | ECGEPIP ---
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
== END 2018-04-15 00:08 | disposition home or self-care (01) ==
LOC: EDBD 18:57 → M ED 18:57
DX: J98.9 Respiratory disorder, unspecified (principal); B97.4 Respiratory syncytial virus as the cause of diseases classified elsewhere; R00.0 Tachycardia, unspecified; I48.91 Unspecified atrial fibrillation; E11.9 Type 2 diabetes mellitus without complications; J44.9 Chronic obstructive pulmonary disease, unspecified; K21.9 Gastro-esophageal reflux disease without esophagitis; Z99.2 Dependence on renal dialysis; Z79.899 Other long term (current) drug therapy; Z79.02 Long term (current) use of antithrombotics/antiplatelets; Z79.891 Long term (current) use of opiate analgesic; Z79.51 Long term (current) use of inhaled steroids; Z20.828 Contact with and (suspected) exposure to other viral communicable diseases; M79.89 Other specified soft tissue disorders

== ENCOUNTER → 2018-04-15 | Outpatient (CLI) | payer MEDICARE, MEDICAID ==
[~2018-04-15] MED LIST changes: +AMLO5TAB4 PO; -AMLO5TAB6 PO; +LASI40TA PO; -LASI40TA9 PO; +LOSA50TA73 PO; -LOSA50TA88 PO; -MILK120011 PO; +MILK12002 PO
--- NOTE | 2018-04-15 14:19 | REP ---
Right upper extremity duplex venous ultrasound: History: Right upper extremity swelling. Question venous thrombosis. Findings: The right internal jugular, axillary, brachial, basilic, and cephalic veins are anechoic and compressible in the left upper extremity. The central subclavian segment could not be seen because of patient's bandaging. Color flow imaging is homogeneous. Spectral Doppler interrogation is unremarkable. There is no evidence of right upper extremity venous thrombosis. Impression: Negative right upper extremity duplex venous ultrasound. No evidence of venous thrombosis. Electronically Signed by Brad Posada MD 04/15/2018 02:11 P
--- NOTE | 2018-04-15 14:50 | REP ---
REASON: Arm swelling. COMPARISON: None. Right upper extremity arterial ultrasound was obtained. The imaged portion of the right subclavian artery proximally shows a monophasic wave form with 112 cm per second peak systolic velocity. The next upper extremity artery imaged with the axillary artery which had a triphasic wave form and a peak systolic velocity of 136 cm/s. Brachial arteries were interrogated and the proximal brachial artery was seen with a triphasic wave form and a peak systolic velocity of 85.2 cm/s with the mid brachial artery triphasic was 80.2 cm/s peak systolic velocity. The distal brachial artery was triphasic in wave form with 55.3 cm/s peak systolic velocity. Proximal mid and distal (wrist) radial arterial Doppler was obtained, all three areas showed triphasic wave forms with peak systolic velocities 70.1 cm/s, 57.8 cm/s, and 54.0 cm/s respectively. Ulna artery was interrogated, proximal mid and distal portions at the wrist. All three portions had a triphasic wave form with peak systolic velocities 68.8 cm/s, 61.7 cm/s, and 55.9 cm/s respectively. Electronically Signed by Fidel Pedroza DO 04/15/2018 03:14 P
== END ==
LOC: M RAD 12:51
PROVIDERS: ATTEND Student in an Organized Health Care Education/Training Program
DX: M79.89 Other specified soft tissue disorders (principal)

== ENCOUNTER 2018-04-16 07:48 | Inpatient (IN) | payer MEDICARE, MEDICAID ==
[~2018-04-16] VITALS: Ht 157.5 cm; Wt 77.1 kg
[~2018-04-16 07:48] MED LIST changes: -AMLO5TAB4 PO; +AMLO5TAB6 PO; -LASI40TA PO; +LASI40TA9 PO; -LOSA50TA73 PO; +LOSA50TA88 PO; +MILK120011 PO; -MILK12002 PO
[2018-04-16 08:45] LABS: ABG BASE EXCESS -0.1 (-2.0-2.0); ABG HCO3 26.9 MEQ/L (22.0-26.0); ABG O2 SATURATION 97.9 % (95.0-99.0); ABG PARTIAL PRESSURE CO2 54.7 mmHg (35.0-45.0); ABG PARTIAL PRESSURE O2 110.1 mmHg (75.0-100.0); ABG STANDARD HCO3 24.4 MEQ/L (22.0-26.0); ABG TOTAL CO2 28.6 MEQ/L (23.0-31.0)
[2018-04-16] MEDS: CLOPIDOGREL 75 MG TAB PO SCH (09:00)
[2018-04-16] MEDS: predniSONE 5 MG TAB PO SCH (09:00)
[2018-04-16] MEDS: FEBUXOSTAT 40 MG TABLET (ULORIC) PO SCH (09:00)
[2018-04-16] MEDS: PANTOPRAZOLE 40MG TAB (PROTONIX) PO SCH (09:00)
[2018-04-16] MEDS: DOCUSATE SODIUM 100 MG CAP PO SCH (09:00)
[2018-04-16] MEDS: METOPROLOL TART 25 MG TABLET PO SCH ×2 (09:00→21:30)
[2018-04-16] MEDS ORDERED: VANCOMYCIN HCL 1,000 MG, VIAL MATE ADAPTER 1 EACH in D5W 250 ML IV ONE (09:15)
[2018-04-16] MEDS ORDERED: ALBUTEROL SULFATE 2.5 MG/0.5 ML INH NEB SOLN NEB ONE (09:15)
[2018-04-16 09:25] LABS: BASO % 0.3 % (0.0-1.0); EOS % 0.1 % (0.0-3.0); HEMATOCRIT 35.4 % (42.0-52.0); HEMOGLOBIN 10.5 g/dl (13.5-17.5); LYMPH # 0.9 10^3/uL (1.5-4.5); LYMPH % 8.6 % (24.0-44.0); MEAN CORPUSCULAR HEMOGLOBIN 31.6 pg (27.0-33.0); MEAN CORPUSCULAR HGB CONC 29.7 g/dl (32.0-36.5); MEAN CORPUSCULAR VOLUME 106.6 fl (80.0-96.0); MONO # 1.3 10^3/uL (0.0-0.8); MONO % 11.5 % (0.0-5.0); NEUTROPHILS # 8.6 10^3/uL (1.8-7.7); NEUTROPHILS % 78.9 % (36.0-66.0); PLATELET COUNT, AUTOMATED 158 10^3/uL (150-450); RED BLOOD COUNT 3.32 10^6/uL (4.30-6.10); WHITE BLOOD COUNT 10.9 10^3/uL (4.0-10.0)
--- NOTE | 2018-04-16 09:32 | REP ---
Portable chest x-ray: Single view. History: Dyspnea and cough. Comparison study: April 14, 2018. Findings: EKG monitoring electrodes and oxygen delivery tubing are seen. There is a central venous tunnel catheter in place via the right internal jugular vein region with its tip in the expected location of the superior vena cava. Today's chest x-ray demonstrates a metallic linear wire like structure measuring 14 cm in length projecting across the left upper chest. The this is of uncertain etiology. The heart is mildly enlarged. The thoracic aorta is calcific and tortuous. There is a prominent diffuse interstitial lung disease pattern mild in degree consistent with fibrosis unchanged. No focal infiltrate is seen. Electronically Signed by Brad Posada MD 04/16/2018 09:23 A
[2018-04-16] MEDS: NS 1,000 ML IV SCH (09:34)
[2018-04-16 10:03] LABS: BLOOD UREA NITROGEN 31 MG/DL (7-18); CARBON DIOXIDE LEVEL 29 MEQ/L (21-32); CHLORIDE LEVEL 102 MEQ/L (98-107); CK-MB VALUE MASS < 1.0 NG/ML (<3.6); CPK CREATINE PHOSPHOKINASE 25 U/L (39-308); CREATININE FOR GFR 6.93 MG/DL (0.70-1.30); GLOMERULAR FILTRATION RATE 8.2 (>35); GLUCOSE, FASTING 99 MG/DL (70-100); POTASSIUM SERUM 4.3 MEQ/L (3.5-5.1); SODIUM LEVEL 139 MEQ/L (136-145); TROPONIN I 0.09 NG/ML (< 0.10)
[2018-04-16] MEDS ORDERED: GLUCAGON FOR INJ 1 MG VIAL (J1610) SC PRN (11:45)
[2018-04-16] MEDS ORDERED: guaiFENesin DM LIQ 10ML UD PO PRN (11:45)
[2018-04-16] MEDS ORDERED: DEXTROSE 50% 50 ML SYRINGE IV PRN (11:45)
[2018-04-16] MEDS ORDERED: ACETAMINOPHEN TAB 650MG DOSE (2X325MG) PO PRN (11:45)
[2018-04-16] MEDS ORDERED: GLUCOSE 4 GM CHEW TABLET PO PRN (11:45)
[2018-04-16] MEDS ORDERED: BISACODYL 10 MG SUPP PR PRN (11:45)
[2018-04-16] MEDS ORDERED: ONDANSETRON 4MG/2ML VIAL (J2405) IV PRN (11:45)
[2018-04-16] MEDS ORDERED: IPRATROPIUM 0.5MG/ALBUTEROL 2.5MG INH SOL UD 3ML (DUONEB)(J7620) NEB PRN (12:00)
[2018-04-16] MEDS: HumaLOG INSULIN (NovoLOG) PER UNIT SC SCH ×3 (12:00→21:00)
[2018-04-16] MEDS ORDERED: VANCOMYCIN HCL 1,000 MG, VIAL MATE ADAPTER 1 EACH in D5W 250 ML IV SCH (12:00)
--- NOTE | 2018-04-16 12:35 | HPEPDOC ---
General Date of Admission 04.16.17 Chief Complaint The patient is a 82-year-old male admitted with a reason for visit of SOB. Source: Patient, Old records Exam Limitations: Garbled speech Timing/Duration: 4-6 hours History of Present Illness This is an 82 y/o [facility] senior living patient who was brought to the ED by senior living staff after he was found to apparently be more hypoxic at the senior living, most of the history of presenting illness is obtained through medical records as patient has very garbled speech on examination and ROS is essentially u nobtainable. Hs is awake and alert however. The patient can state that he is in no pain, but does grimace to some pressure applied to abdomen on exam. He appears SOB on exam and coughing. Overall he does look uncomfortable, he is being admitted for copd exacerbation secondary to RSV which was positive in ED. He is also an ESRD patient on HD MWF, he apparently had HD two days ago and will be dialyzed again today. There was some concern over his left graft being possibly infected. He is also being admitted for further evaluation of this. IT does appear he was seen in the ED a few days ago for + RSV. Home Medications Scheduled (Basaglar Kwikpen) 100 Unit/Ml Inj, 10 UNIT SC QHS, (Reported) (Nepro with Carb Steady) 1 Liq Liq, 240 ML PO DAILY, (Reported) TAKES AT 1100 Acetaminophen/Hydrocodone (Garrison 5-325 mg) 1 Tab Tab, 1 TAB PO 3XW, (Reported) TAKES ON THURSDAY, THURSDAY, AND THURSDAY BEFORE DIALYSIS AT 1500 Albuterol/Ipratropium (Ipratropium Quinn[place]ec/Albut 0.5-2.5 (3) mg/3Ml) 1 Lanette Lanette, 1 LANETTE INH BID, (Reported) Atorvastatin Calcium (Lipitor) 20 Mg Tab, 20 MG PO QHS, (Reported) Calcium Acetate (Calcium Acetate) 667 Mg Cap, 667 MG PO BID, (Reported) TAKES AT 0800 AND 1700 Clopidogrel Bisulfate (Clopidogrel) 75 Mg Tab, 75 MG PO DAILY, (Reported) TAKES AT 1200 Docusate Sodium (Docusate Sodium) 100 Mg Cap, 100 MG PO DAILY, (Reported) Ergocalciferol (Vitamin D) 50,000 Unit Cap, 50,000 UNIT PO QMONTH, (Reported) THE 1ST OF EACH MONTH Febuxostat (Uloric) 40 Mg Tab, 40 MG PO Q2D, (Reported) TAKES AT 1200 Gabapentin (Gabapentin) 300 Mg Cap, 300 MG PO DAILY, (Reported) Metoprolol Tartrate (Metoprolol Tartrate) 25 Mg Tab, 25 MG PO BID, (Reported) Pantoprazole Sodium Sesquihydr (Protonix) 40 Mg Tab, 40 MG PO DAILY, (Reported) TAKES AT 1200 Polyethylene Glycol (Miralax) 1 Pow Pow, 17 GM PO DAILY, (Reported) TAKES AT 1200 Prednisone (Prednisone) 5 Mg Tab, 5 MG PO DAILY, (Reported) Scheduled PRN (Enema Disposable) 1 Tejinder Tejinder, 1 TEJINDER MS DAILY PRN for CONSTIPATION, (Reported) Acetaminophen (Tylenol) 325 Mg Tab, 650 MG PO Q4H PRN for PAIN OR FEVER, (Reported) Acetaminophen (Acephen) 650 Mg Sup, 650 MG MS Q4H PRN for PAIN / FEVER, (Reported) Albuterol/Ipratropium (Ipratropium Quinnesec/Albut 0.5-2.5 (3) mg/3Ml) 1 Lanette Lanette, 1 LANETTE INH Q4H PRN for SHORTNESS OF BREATH, (Reported) Bisacodyl (Dulcolax) 10 Mg Sup, 10 MG MS DAILY PRN for CONSTIPATION, (Reported) Guaifenesin/Dextromethorphan (Guaifenesin Dm 100-10 mg/5Ml) 1 Syp Syp, 10 ML PO Q4H PRN for COUGH, (Reported) Nitroglycerin (Nitroglycerin) 0.4 Mg Sub, 0.4 MG SL NITRO PRN for CHEST PAIN, (Reported) Allergies Coded Allergies: No Known Drug Allergy (Verified Allergy, Unknown, 04/15/17) Past Medical History Medical History CAD Diabetic neuropathy Hx of dry gangrene and bacteremia ESRD on HD MWF HTN DLP COPD Anemia of chronic disease GERD DM2 G1D CHF Surgical History Toe amputations of right third toe Right perm-a-cath IJ 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 Review of Systems Constitutional: Reports: Other (ROS difficult to obtain) Pulmonary: Reports: Dyspnea Gastrointestinal: Denies: Abdominal Pain Physical Examination General Exam: Positive: Alert, Moderate Distress Neck Exam: Positive: Supple Chest Exam: Positive: Rhonchi, Wheezing, Diminished; Negative: Rales Heart Exam: Positive: Normal S1, Normal S2; Negative: Gallops, Murmurs Abdomen Exam: Positive: Normal bowel sounds, Soft, Tenderness (throughout); Negative: Hepatospenomegaly, Mass Extremity Exam: Positive: Other (left fistula graft minimally erythematous, some pus was appreciated, right IJ perm-a -cath without exudation of pus or blood without swelling/erythema); Negative: Edema Neuro Exam: Negative: Normal Speech Psych Exam: Negative: Mental status NL, Oriented x 3 Vital Signs Vital Signs Date Time Temp Pulse Resp B/P (MAP) Pulse Ox O2 Delivery O2 Flow Rate FiO2 04/16/18 11:15 108 147/67 (93) 04/16/18 11:13 Nasal Cannula 4.0 04/16/18 10:18 97 04/16/18 08:03 98.2 18 Laboratory Data Labs 24H Laboratory Tests 2 04/16/18 08:36: Blood Gas Bicarbonate Standard 24.4, Arterial Blood pH 7.310L, Arterial Blood Partial Pressure CO2 54.7H, Arterial Blood Partial Pressure O2 110.1H, Arterial Blood Total CO2 28.6, Arterial Blood HCO3 26.9H, Arterial Blood Base Excess - 0.1, Arterial Blood Oxygen Saturation 97.9 04/16/18 09:14: Anion Gap 8, Glomerular Filtration Rate 8.2L, Lactic Acid Level 1.4, Blood Urea Nitrogen 31#H, Creatinine 6.93#H, Sodium Level 139, Potassium Level 4.3, Chloride Level 102, Carbon Dioxide Level 29, Calcium Level 8.0L, Total Creatine Kinase 25L, Creatine Kinase MB < 1.0, Creatine Kinase MB Relative Index 4.00, Troponin I 0.09#, Thyroid Stimulating Hormone (TSH) 2.170 04/16/18 09:15: Immature Granulocyte % (Auto) 0.6, White Blood Count 10.9H, Red Blood Count 3.32L, Hemoglobin 10.5L, Hematocrit 35.4L, Mean Corpuscular Volume 106.6H, Mean Corpuscular Hemoglobin 31.6, Mean Corpuscular Hemoglobin Concent 29.7L, Red Cell Distribution Width 15.0H, Platelet Count 158, Neutrophils (%) (Auto) 78.9H, Lymphocytes (%) (Auto) 8.6L, Monocytes (%) (Auto) 11.5H, Eosinophils (%) (Auto) 0.1, Basophils (%) (Auto) 0.3, Neutrophils # (Auto) 8.6H, Lymphocytes # (Auto) 0.9L, Monocytes # (Auto) 1.3H, Eosinophils # (Auto) 0.0, Basophils # (Auto) 0.0, Nucleated Red Blood Cells % (auto) 0.0 CBC/BMP Laboratory Tests 04/16/18 09:14 Calcium Level 8.0 L, Total Creatine Kinase 25 L 04/16/18 09:15 Red Blood Count 3.32 L, Mean Corpuscular Volume 106.6 H, Mean Corpuscular Hemoglobin 31.6, Mean Corpuscular Hemoglobin Concent 29.7 L, Red Cell Distrib ution Width 15.0 H, Neutrophils (%) (Auto) 78.9 H, Lymphocytes (%) (Auto) 8.6 L, Monocytes (%) (Auto) 11.5 H, Eosinophils (%) (Auto) 0.1, Basophils (%) (Auto) 0.3, Neutrophils # (Auto) 8.6 H, Lymphocytes # (Auto) 0.9 L, Monocytes # (Auto) 1.3 H, Eosinophils # (Auto) 0.0, Basophils # (Auto) 0.0 Microbiology Microbiology 04/16/18 Blood Culture, Received Pending 04/16/18 Blood Culture, Received Pending Assessment/Plan 1. Acute COPD exacerbation, acute on chronic respiratory failure with chronic CO2 retention, secondary to RSV + -Patient is on O2 right now, appears he wears 2 L at senior living from [facility], can continue with home inhalers and o2 therapy -blood cultures pending -patient is RSV + -he does not technically meet SIRS criteria this presentation -WBC minimally elevated -will receive Vancomycin in HD., received first dose today in ED -c/w home prednisone -ABG appreciated, appears he is a chronic CO2 retainer, no indication for BiPAP at this time however -CXR without focal consolidation 2. Possible infected left AV graft -Nephrology has been consulted, appreciate their help -Vascular surgery to see patient, appreciate their help -Pt received vancomycin in ED., continue with HD sessions -being dialyzed today according to maintenance schedule -pt afebrile, minimal elevation in WBC, continue to monitor 3. Systolic CHF -Last ECHO showed EF 35-40%, elevated CVP and right heart failure -pt appears compensated on exam, no crackles or LE edema appreciated -continue to monitor for now, pt to be dialyzed today 3. Diabetic neuropathy -due to possible sedation on presentation ( not seen on physical exam today), holding home gabapentin and Garrison -continue with Tylenol for pain 4. DM2 -C/w Levermir 10 SC daily and SS -monitor BS daily 5. Anemia of chronic disease -h/h appears stable today, continue to monitor 6. ESRD -HD on MWF, nephrology consulted, greatly appreciate their help, pt to be dialyzed today 7. CAD -stable, pt will be monitored on telemetry -c/w home plavix 8. Constipation -c/w daily bowel regime medications 9. DVT px -heparin sq, scd/teds Plan / VTE VTE Prophylaxis Ordered?: Yes GME ATTESTATION GME ATTESTATION My faculty preceptor for this patient encounter was physically present during the encounter and was fully available. All aspects of the patient interview, examination, medical decision making process, and medical care plan development were reviewed and approved by the faculty preceptor. The faculty preceptor is aware and concurs with the plan as stated in the body of this note and will attest to such by his/her cosignature. GARETH BULLARD DO Apr 16, 2018 12:35
--- NOTE | 2018-04-16 13:29 | CR ---
DATE OF CONSULTATION: 04/16/2018 REASON FOR CONSULTATION: Shortness of breath in this gentleman with end-stage renal disease. HISTORY OF PRESENT ILLNESS: Mr. Rodriguez is an 82-year-old gentleman with multiple chronic medical problems including a history of chronic obstructive pulmonary disease (COPD), congestive heart failure, coronary artery disease, generalized vascular disease, end-stage renal disease requiring maintenance hemodialysis, and chronic hypoxemia. He was sent to the emergency room today from the longterm due to shortness of breath. Prior to this, the patient was sent to the emergency room from the dialysis unit a couple of days ago with a similar problem. However, at that time, the patient was discharged back to the longterm. He is known to have respiratory syncytial virus (RSV) virus positive on his recent sputum test. Nephrology consultation was requested as the patient is in need for dialysis today due to possible volume overload and shortness of breath. PAST MEDICAL HISTORY (Significant for): 1. History of COPD. 2. Type 2 diabetes. 3. Gastroesophageal reflux disease. 4. Chronic hypoxemia, on oxygen. 5. History of diastolic congestive heart failure. 6. History of chronic hypotension. 7. Dyslipidemia. 8. End-stage renal disease requiring maintenance hemodialysis. 9. Peripheral vascular disease. 10. History of diabetic neuropathy. 11. Anemia of chronic kidney disease. 12. Gout. PAST SURGICAL HISTORY (Significant): 1. 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 2. Bilateral first toe amputation. 3. Right internal jugular vein Perma-Cath placement. MEDICATIONS (His longterm medications include): - Tylenol 650 mg as needed for mild pain - Carlisle 5/325 mg every 4 hours as needed for moderate to severe pain - DuoNebs every 4 hours due to dyspnea - Lipitor 20 mg at bedtime - Basaglar insulin 10 units at bedtime - calcium acetate 667 mg twice a day with meals - Plavix 75 mg daily - Colace 100 mg daily - Uloric 40 mg every 2 days - gabapentin 300 mg daily - metoprolol 25 mg b.i.d. - Protonix 40 mg daily - MiraLax 17 grams daily as needed for constipation ALLERGIES: The patient has NO KNOWN DRUG ALLERGIES. PERSONAL AND SOCIAL HISTORY: The patient is currently a longterm resident with multiple comorbid conditions. He has prior history of smoking which he quit a few years ago. There is no history of alcohol or drug use. FAMILY HISTORY: Negative for end-stage renal disease. REVIEW OF SYSTEMS: His head and neck is negative for known stroke. He has been admitted with altered mentation in the past. He denies any headache. There is no history of nosebleed or sinus problems. Cardiovascular system is significant for congestive heart failure and chronic dyspnea and hypoxemia. Respiratory system is significant for COPD and pulmonary fibrosis. He has been on oxygen. There is no history of hemoptysis or pleuritic type of chest pain. Today he is more short of breath. GI system is significant for history of gastroesophageal reflux disease. system is negative for dysuria or hematuria. Musculoskeletal system is significant for inability to ambulate. 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 He has history of gout, but no active issues. Psychosocial system is significant for anxiety and depression. Neurological system is significant for peripheral neuropathy. There is no known history of stroke. Hematological system is significant for anemia of chronic kidney disease. He is not on any anticoagulation. PHYSICAL EXAMINATION: This elderly gentleman is laying on the stretcher in the emergency room where I examined him. His temperature is 98.2 degrees Fahrenheit, heart rate 114 per minute and respiratory rate 20 per minute. Blood pressure 147/60 mmHg and oxygen saturation 97% on 4 liters oxygen. His head is atraumatic. He is edentulous and without any oral thrush or ulcers. Neck veins are difficult to be assessed. Pupils are equal and reactive to light and sclera is anicteric. Heart sounds are tachycardiac and somewhat irregular. Lungs have diminished breath sounds and bilateral rhonchi and wheezing. Abdomen: Soft and nontender. Bowel sounds are normal. Extremities have no cyanosis or clubbing. He has a left upper arm old infected and clotted AV graft. There is an area of scab with some purulent drainage next to it. The left arm has a little bit of edema. On the right upper chest he has a hemodialysis Perma-Cath in the right internal jugular vein. Neurologically, he is awake and at his baseline mentation. He is able to answer simple questions. LABORATORY DATA: We jordi his labs in the emergency room which showed a WBC count 10.9, hemoglobin 10.5 and hematocrit 35.4. Platelets 158. His blood gas showed a pH of 7.31, pCO2 54.7, pO2 110 and bicarb 24.4. Sodium is 139, potassium 4.3, CO2 29, BUN 31 and creatinine 6.93. Lactic acid level is 1.4 and calcium 8.0. PROBLEMS: 1. Shortness of breath, most likely multifactorial as the patient has known history of COPD and pulmonary fibrosis. He probably has mild volume overload and we will try to remove as much fluid as he can tolerate with dialysis today. 2. End-stage renal disease. The patient has been dialysis dependent and today is his regular dialysis day. We will schedule his dialysis for this afternoon. At present, I do not see any emergent indication for dialysis as his electrolytes are normal and blood gas is only slightly abnormal with mostly chronic issues. 3. Possible sepsis with infected left arm old AV graft. The patient has an AV graft in the left arm which is clotted and has purulent drainage. We will get a surgical consult for possible excision. At present, we are going to take cultures from the catheter site and also take blood cultures. He will be given vancomycin 1 gram right now and then after dialysis. 4. Anemia. At present, his anemia is stable at about baseline and we will continue to monitor closely. 5. Diabetes. The patient is not feeling well and is probably not eating very well. I would suggest to hold off on insulin and monitor his blood sugars with fingerstick. Thank you for involving me in the care of Mr. Rodriguez. I will follow him along with you.
[2018-04-16] MEDS ORDERED: HEPARIN 1,000 UNITS/ML 10ML VIAL (FOR RADIOLOGY& DIALYSIS ONLY) XX ONE (14:45)
[2018-04-16] MEDS ORDERED: HEPARIN 1,000 UNITS/ML 10ML VIAL (FOR RADIOLOGY& DIALYSIS ONLY) IV ONE (14:45)
--- NOTE | 2018-04-16 14:50 | PHACANCOPD ---
PHARMACY VANCOMYCIN DOSING Pt Demographics Demographics Patient Age:82 , Weight:84.090 , Gender: male Adjusted Body Weight Date: 04/16/18, Adjusted Body Weight: Kg Events Past 24 Hours Events Past 24 Hours: YES: Dialysis, Elevation in WBC; NO: Diuretic Therapy, Change in CrCl, Fever, Pending Diagnostics, Pending Procedures, Other Vancomycin Vancomycin Load Y/N: Yes Load Dose Date Time Vancomycin Load Dose: 1G Date: 04/16/17 Time: 0935 Vancomycin Dose Date: 04/16/18. Current Vancomycin Dose: Intermittent Dosing?: No Labs Labs Vital Signs Label Value Date Time Patient Temperature 98.2 degrees F 04/16/18 0803 Temperature Source Temporal 04/16/18 0803 Item Value Date Time White Blood Count 10.9 10^3/uL H 04/16/18 0915 Blood Urea Nitrogen 31 MG/DL H # 04/16/18 0914 Creatinine 6.93 MG/DL H # 04/16/18 0914 Glomerular Filtration Rate 8.2 L 04/16/18 0914 Total Creatine Kinase 25 U/L L 04/16/18 0914 Micro Microbiology 04/16/18 Blood Culture, Received Pending 04/16/18 Blood Culture, Received Pending Creatinine Clearance Date:04/16/18. Creatinine Clearance: . Assessment and Plan Maintaining Current Dose?: Yes Reason for dose change: No Dose Change Pharmacist Note Pharmacist Note Date: 04/16/18. Pharmacist note: Pt. is an 82 year old male care home pt who was brought to ED due to COPD exacerbation secondary to Positive RSV. He is a dialysis pt MWF (received dialysis today). There is a possible infection to dialysis graft. He has been started on Vancomycin. He received Vanco 1G IV in the ED at 0935. I have scheduled the pt to receive Vanco 750mg IV HD starting after dialysis today. This is the dose pt has been on in the past successfully. We will continue to monitor and adjust dose as needed. MAIKOL DAN PHARMACY Apr 16, 2018 14:50
[2018-04-16] MEDS: **VANCO AFTER HD** MISC XX SCH (16:00)
[2018-04-16] MEDS: CALCIUM ACETATE 667 MG GELCAP PO SCH (17:30)
[2018-04-16 17:53] VITALS: BP 108/55
[2018-04-16] MEDS ORDERED: SLF 3 ML SYR IV PRN (18:15)
[2018-04-16] MEDS: VANCOMYCIN HCL 750 MG, VIAL MATE ADAPTER 1 EACH in D5W 250 ML IV SCH (19:50)
[2018-04-16 20:00] VITALS: BP 171/78
[2018-04-16] MEDS ORDERED: LEVEMIR (INSULIN DETEMIR) 1 UNITS/0.01ML SC SCH (21:00)
[2018-04-16] MEDS: PIPERACILLIN/TAZOBACTAM SOD 2.25 GM in D5W MINI-BAG PLUS 50 ML IV SCH (21:30)
[2018-04-16] MEDS: HEPARIN SOD (PORCINE) 5000 UNITS/ML VIAL SC SCH (21:34)
[2018-04-16] MEDS: ATORVASTATIN 20 MG TAB PO SCH (21:34)
[2018-04-16] MEDS: SLF 3 ML SYR IV SCH (21:38)
[2018-04-17] VITALS: BP 133/62
[2018-04-17 04:00] VITALS: BP 132/73
[2018-04-17] MEDS: SLF 3 ML SYR IV SCH ×3 (05:37→21:09)
[2018-04-17 05:57] LABS: BASO % 0.5 % (0.0-1.0); EOS % 0.5 % (0.0-3.0); HEMATOCRIT 36.3 % (42.0-52.0); HEMOGLOBIN 10.6 g/dl (13.5-17.5); LYMPH # 1.2 10^3/uL (1.5-4.5); LYMPH % 18.2 % (24.0-44.0); MEAN CORPUSCULAR HEMOGLOBIN 31.4 pg (27.0-33.0); MEAN CORPUSCULAR HGB CONC 29.2 g/dl (32.0-36.5); MEAN CORPUSCULAR VOLUME 107.4 fl (80.0-96.0); MONO # 1.1 10^3/uL (0.0-0.8); MONO % 16.3 % (0.0-5.0); NEUTROPHILS # 4.1 10^3/uL (1.8-7.7); NEUTROPHILS % 63.9 % (36.0-66.0); PLATELET COUNT, AUTOMATED 173 10^3/uL (150-450); RED BLOOD COUNT 3.38 10^6/uL (4.30-6.10); WHITE BLOOD COUNT 6.4 10^3/uL (4.0-10.0)
[2018-04-17 06:03] LABS: ALBUMIN 2.1 GM/DL (3.2-5.2); CALCIUM LEVEL 8.5 MG/DL (8.8-10.2); CREATININE FOR GFR 4.15 MG/DL (0.70-1.30); GLOMERULAR FILTRATION RATE 14.7 (>35); PHOSPHORUS LEVEL 2.9 MG/DL (2.5-4.9); POTASSIUM SERUM 4.2 MEQ/L (3.5-5.1)
[2018-04-17] MEDS: HumaLOG INSULIN (NovoLOG) PER UNIT SC SCH ×4 (07:30→21:00)
[2018-04-17] MEDS: CALCIUM ACETATE 667 MG GELCAP PO SCH ×2 (07:30→17:30)
[2018-04-17 07:38] VITALS: BP 134/68
--- NOTE | 2018-04-17 07:59 | ECGEPIP ---
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
[2018-04-17] MEDS: DOCUSATE SODIUM 100 MG CAP PO SCH (08:52)
[2018-04-17] MEDS: predniSONE 5 MG TAB PO SCH (08:52)
[2018-04-17] MEDS: METOPROLOL TART 25 MG TABLET PO SCH ×2 (08:53→21:08)
[2018-04-17] MEDS: CLOPIDOGREL 75 MG TAB PO SCH (08:53)
[2018-04-17] MEDS: PIPERACILLIN/TAZOBACTAM SOD 2.25 GM in D5W MINI-BAG PLUS 50 ML IV SCH ×2 (08:53→21:08)
[2018-04-17] MEDS: HEPARIN SOD (PORCINE) 5000 UNITS/ML VIAL SC SCH ×2 (08:53→21:09)
[2018-04-17] MEDS: PANTOPRAZOLE 40MG TAB (PROTONIX) PO SCH (08:53)
[2018-04-17] MEDS: NS 1,000 ML IV SCH (09:15)
[2018-04-17 11:31] VITALS: BP 139/69
[2018-04-17] MEDS: **VANCO AFTER HD** MISC XX SCH (12:59)
[2018-04-17 15:47] VITALS: BP 134/67
--- NOTE | 2018-04-17 17:45 | IPN ---
DATE: 04/17/2018 Mr. Rodriguez is seen this morning on his bedside. He was admitted yesterday with shortness of breath and weakness. He has a left arm arteriovenous (AV) graft, which was felt to be infected, and he was treated with vancomycin. He underwent hemodialysis yesterday, and his dyspnea has improved. There was 1.5 liters of fluid removed, which is usually what he can tolerate. PHYSICAL EXAMINATION: Temperature 97.9 degrees Fahrenheit, heart rate 85 per minute, respiratory rate 18 per minute, blood pressure 134/68 mm of mercury, and oxygen saturation 98% on 2 liters oxygen. His head is atraumatic. Neck veins are difficult to be assessed. There is a [id number] on the right upper chest going into right internal jugular vein. His heart sounds are irregular in rhythm. Lungs have expiratory wheezing and scattered rhonchi. Abdomen soft and nontender, and bowel sounds are normal. Extremities have no cyanosis or clubbing. Left upper arm AV graft has a portion of it exposed with some purulent drainage around it. Neurologically, he is much improved compared with yesterday and able to answer questions. Today's labs show WBC count down to 6.4, hemoglobin 10.6, and hematocrit 36.3. Sodium 140, potassium 4.2, CO2 of 30, BUN 15, creatinine 4.15. Albumin 2.1. Blood cultures are negative so far. PROBLEMS: 1. Shortness of breath, most likely related to sepsis and probably mild hypervolemia. The patient was dialyzed yesterday, and 1.5 liters of fluid was removed. We will plan to dialyze him again on Thursday. His electrolytes are stable, and volume status has improved. I do not feel that another dialysis is indicated today. 2. End-stage renal disease. The patient is regularly dialyzed on Thursday, Thursday, and Thursday schedule. He will be dialyzed again on Thursday. He tolerated his dialysis treatment yesterday well. 3. Sepsis and infected left arm old graft. The patient was given vancomycin yesterday on admission and again after dialysis. Blood cultures are pending and will continue with the vancomycin for now pending cultures. Dr. Corral will be consulted for possible removal of infected graft. 4. Anemia. His anemia is stable, and we will continue to monitor and treat it with Aranesp once a week during dialysis. 4. Chronic obstructive pulmonary disease (COPD). This is a chronic issue and seems improved. I would recommend to continue with nebulizers and oxygen supplementation.
--- NOTE | 2018-04-17 19:42 | IPNPDOC ---
Subjective Date Seen The patient was seen on 04/16/18. Subjective Chief Complaint/HPI Patient seen and examined at bedside. Does not respond much to questions as he appears lethargic. ROS very limited but purposefully nods yes/no at times to some questions. Events since last encounter This is an 82 yo elderly male who is a resident of the [facility] with a PMH of ESRD on HD on MWF schedule, anemia of CKD, COPD, chronic hypoxemia on oxygen, type 2 DM, GERD, history of diastolic CHF, history of chronic hypotension, HTN, dyslipidemia/CAD, peripheral vascular disease, diabetic neuropathy, gout, hx of dry gangrene and bacteremia who was sent by myself and Dr. Emmanuel to the [facility] ED on the morning of 04/16/18 for concern for possible hypoxic respiratory failure, possible pneumonia, possible CHF exacerbation, and possible picture of sepsis. Was sent to ED for further evaluation and possible admission to the [facility] inpatient family medicine service. Of note, I had seen the patient on 04/15/18 about 12 PM for a call I got from the [facility] fpc about patient's RUE being swollen and a bit erythematous. It was reported to me that patient was also a bit hypotensive with BP in the 90s systolic over 50s-60s diastolic. Tested (+) for RSV on 04/14/18 in the ED. Was febrile on morning of 04/15/18, but was given tylenol and temperature came down to WNL. RSV could have caused the fever. However, due to RUE swelling and erythema complaint, I was concerned for possible sepsis from unknown infectious source vs. cellulitis vs. DVT of the RUE. I ordered both a venous and arterial U/S of the RUE to rule out DVT vs. any vascular blockage. Both came back to be negative for DVT or arterial blockage. In addition, I was also made aware that patient was scheduled to have dialysis and was at the dialysis unit on 04/14/18, but due to not "feeling well" (later found out that patient became SOB and felt weak through [facility] ED summary report), he did not receive dialysis that day, and was transported straight to [facility] ED. I later found out that patient had an IV saline lock inserted into his R antecubital likely for blood draws and/or medication administration. After examining the patient, it seemed that he likely had a phlebitis from the insertion of the IV in the RUE--not a cellulitis as it was not warm nor very erythematous--just bruising that was appreciated that can be from insertion of IV lines. He also has a R IJ tunneled dialysis catheter as well. He also has a LUE failed AV fistula graft that has a dark scab and regions of blood clots that are palpable in the L flexural surface of the upper a rm/antecubital region. In the ED on 04/14/18, patient had labs drawn: CBC, BMP, lactic acid, cardiac marker panel, blood cx, respiratory panel, portable CXR, ECG. CBC showed a mildly elevated WBC of 10.9 (H) which is very close to his baseline, Hgb 11.9 (L), MCV 105.9 (H), Na 135 (L), K of 5.3 (H), BUN 19 (H), Cr 4.54 (H), GFR 13.3 (L), fasting glucose of 141 (H), lactic acid WNL at 1.2, troponin I of 0.02 (WNL). Blood cx were taken and showed NGTD x 24h. Respiratory Panel was (+) for RSV. CXR had shown a R sided tunneled central venous catheter with its tip in the expected location of the SVC, a mildly enlarged heart, increased interstitial markings bilaterally in the lung bases, and no new i nfiltrate. Patient was administered tylenol 650 mg once, and a nebulizer treatment with duonebs 3 mL once likely for his CC of SOB according to ED summary report from 04/14/18. He was then sent back to [facility]. Then, I was called around 11:45 AM for the patient's RUE swelling, erythema, hy potension. Please refer to the above for what was done. The next morning on 04/16/18, Dr. Lynda Emmanuel and I examined the patient who appeared very lethargic, had rhonchi in his lungs, and he was not acting like his usual self. Using accessory muscles to breathe. Was not speaking full sentences. Vital signs and fingerstick blood sugar was taken. FSBS was 98. VS showed HR 110, satting 91% on 2 liters nasal cannula at best (nurse told me that she had gotten readings from 87%, 88%, and the best she could get after a while was 91% which is not his baseline. Patient is chronically on 2 liters oxygen for hypoxia and hx of COPD; Normally, his O2 saturations run a bit higher than 91 % on 2 liters. They run at 93-94%. Blood pressure was 102/68, RR was 19, and temperature was 98.7. However, I was told that patient did run fevers overnight and was given tylenol. CXR image was reviewed in depth and it looked a bit like patient may have had a R sided infiltrate as well as some possible fluid ov erload--especially since he had not received dialysis on the 2nd like he was supposed to. He had not received dialysis on the 3rd of the month either. It was then decided that patient should be sent to the ED for further evaluation and management of his somewhat septic picture/symptoms. I again, examined patient later on around 2 PM in the dialysis unit as Nephrology was consulted who ordered dialysis for him. His BP was hypotensive at the dialysis unit. The dialysis nurse had lowered the amount of fluid she was taking off of patient through dialysis. Patient was shivering at this time and a lso saying "no" to all questions I asked--not really completing full sentences as he was when I had examined and spoke to him earlier this week on Thursday. Was still appearing lethargic. Spoke to Dr. Gentile about patient's clinical picture and we examined patient again later the evening of 04/16/18. Patient seemed a bit stable at that time and was resting comfortably in bed, though appeared very fat igued. According to Dr. Daisha Bass's consult note, it was reported that patient had an AV graft in the L arm which was clotted and has purulent drainage. He was ordering a surgical consult for possible excision and stated that cultures would be taken from the catheter site as well as blood cultures. Patient was treated with 1 g vancomycin and then continued on this with HD sessions. He is on a MWF schedule and was due for dialysis today anyway. In addition, to his vancomycin with HD, I added zosyn 2.25 g IV q12h with 0.75 g supplement with HD. I had discontinued patient's levemir as patient was not having good oral intake at this time. He is still on sliding scale coverage with humalog. Constitutional: Denies: Chills, Fever Pulmonary: Denies: Dyspnea, Cough Cardiovascular: Denies: Chest Pain Gastrointestinal: Denies: Abdominal Pain Psych: Denies: Mood Normal Objective Physical Examination General Exam: Positive: Alert, Mild Distress Eye Exam: Positive: Conjunctiva & lids normal; Negative: Sclera icteric ENT Exam: Positive: Atraumatic Neck Exam: Positive: Supple Chest Exam: Positive: Rhonchi, Diminished, Other (accessory muscle usage noted on initial exam in dialysis unit); Negative: Clear to auscultation, Normal air movement, Rales Heart Exam: Positive: Tachycardic, Regular Rhythm, Normal S1, Normal S2; Negative: Gallops, Murmurs Abdomen Exam: Positive: Normal bowel sounds, Soft; Negative: Tenderness (throughout), Mass Extremity Exam: Positive: Other (RUE antecubital fossa with phlebitis and hardened soft tissue upon palpation without tenderness, bruising appreciated around this site, no cellulitic erythema however; LUE: black darkened scab in L antecubital fossa region where AV fistula failed graft site is--no pus draining from this site at the moment); Negative: Edema Skin Exam: Positive: Other skin issue (bruising of upper extremities in scattered areas noted ); Negative: Rash (somewhat garbled) Neuro Exam: Negative: Normal Speech Psych Exam: Negative: Mental status NL, Mood NL Assessment /Plan Problems (1) Acute on chronic respiratory failure with hypoxia Status: Acute Problem Text: 04/16/18: Patient admitted for acute hypoxic respiratory failure with COPD exacerbation likely secondary to RSV. Continue supplemental O2 therapy (chronically on 2 liters O2 for hx of hypoxia/COPD), duonebs tx q4h PRN, prednisone 5 mg daily. Continue to monitor respiratory status. Continue rivers pportive care to treat RSV, but still look for other sources of infection with blood cx, culture of permacath R IJ catheter site and/or AV graft. Patient was started on vancomycin 750 mg IV with HD likely for coverage of possible bacterial infection/MRSA source of infection causing patient's close to septic- like picture. Have also added zosyn 2.25 gm q12h IV with 0.75 g supplement with HD for broad spectrum coverage for bacterial source of infection. Dr. Bass had mentioned in his consult note that he was going to order a Vascular Surgery Consult for assessment of the LUE failed AV graft site that could be infected for possible excision of that graft. However, I don't believe this was done. I will contact Vascular Surgery (probably Dr. Corral) and see if he is willing to see and evaluate the patient. (2) COPD with acute exacerbation Status: Acute Problem Text: 04/16/18: Continue tx as outlined above. (3) RSV (respiratory syncytial virus infection) Status: Acute Problem Text: 04/16/18: Continue supportive care and tx as per assessment #1. (4) Fluid overload Status: Acute Problem Specific Plan: Consult Specialist (Nephrology) Problem Text: 04/16/18: Patient has a hx of CHF--seems to be systolic as most recent echo showed reduced EF. Most recent Echocardiogram on 04/29/17 had shown LVEF of 35-40%, normal left ventricular size with borderline concentric hypertrophy, septal wall motion abnormality believed to be related to ventricular pressure overload, but hypokinesis of other james, moderately dilated L atrium with doppler evidence of an impairment of the LV diastolic function and significantly elevated mean L atrial pressure, mildly dilated and hypokinetic R ventricle with doppler evidence of severe pulmonary HTN, moderately dilated R atrium and dilated IVC with reduced respiratory collapse in keeping with an elevated central venous pressure/R heart failure, mild-moderate calcific aortic stenosis with mild insufficiency, severe mitral annular calcification without significant LV inflow tract obstruction, but moderately severe to severe insufficiency. CXR today showed heart to be mildly enlarged and there were some signs of fluid overload that were noticeable on the CXR film subtly. Patient had dialysis yesterday as per Nephrology who is managing his fluid status. Appreciate Nephrology input. (5) End stage renal disease on dialysis Status: Chronic Problem Specific Plan: Consult Specialist (Nephrology) Problem Text: 04/16/18: Patient's fluid status was likely decompensated as he has not had dialysis when he was due on 04/14/18 until later today on 04/16/18. Nephrology consulted for management and HD tx. Appreciate their help. (6) AV graft malfunction Status: Chronic Problem Text: 04/16/18: Apparently, has had a L AV nonfunctioning AV graft for a while. I will try to speak to Dr. Corral of Vascular Surgery to see if he is willing to come check out the graft to see if he believes it could be infected. This is a possible source of patient's infection as Dr. Bass had wrote in his consult note. May need excision. (7) AV graft thrombosis Status: Chronic Problem Text: 04/16/18: Has nonfunctioning LUE AV graft. (8) Anemia in chronic kidney disease Status: Chronic Problem Text: 04/16/18: Stable and at baseline. Hgb was 10.5 (L) and MCV was 106.6 (H). (9) Diabetes mellitus type 2 in obese Status: Chronic Problem Text: 04/16/18: Serum glucose was WNL at 99. Patient was placed on detemir on admission, which was discontinued as patient is having poor oral intake at this time. Will just leave ISS coverage at and QHS. Monitor FSBS for now. Will adjust therapy as needed. (10) Coronary artery disease Status: Chronic Problem Text: 04/16/18: Continue atorvastatin 20 mg QHS, plavix 75 mg daily. (11) Constipation Status: Acute Problem Text: 04/16/18: Has been placed on bowel regimen of dulcolax suppository 10 mg daily ND PRN constipation and colace 10 mg PO daily which should help. Will monitor I/Os. (12) Gout Status: Chronic Problem Text: 04/16/18: Continue uloric 40 mg Q2D PO. (13) GERD (gastroesophageal reflux disease) Status: Chronic Problem Text: 04/16/18: Continue pantoprazole 40 mg PO daily. (14) Diabetic neuropathy Status: Chronic Problem Text: 04/16/18: Home medications gabapentin and [place] were held on admission due to possible concern of sedation on presentation. Still on acetaminophen 650 mg q4h PRN PO pain/fever. So far, patient denies any complaints of pain anywhere. Though, he does not seem at this baseline mental status. Plan/VTE VTE Prophylaxis Ordered?: Yes (heparin 5000 units q12h SC) Disposition Pending clinical improvement. Definitely Greater than 2 Midnight Stay. VS, I&O, 24H, [place] Vital Signs/I&O Vital Signs Date Time Temp Pulse Resp B/P (MAP) Pulse Ox O2 Delivery O2 Flow Rate FiO2 04/16/18 20:00 98.0 110 20 171/78 (109) 98 High Flow Cannula 2.0 Laboratory Data 24H LABS Laboratory Tests 2 04/16/18 08:36: Blood Gas Bicarbonate Standard 24.4, Arterial Blood pH 7.310L, Arterial Blood Pa rtial Pressure CO2 54.7H, Arterial Blood Partial Pressure O2 110.1H, Arterial Blood Total CO2 28.6, Arterial Blood HCO3 26.9H, Arterial Blood Base Excess - 0.1, Arterial Blood Oxygen Saturation 97.9 04/16/18 09:14: Anion Gap 8, Glomerular Filtration Rate 8.2L, Lactic Acid Level 1.4, Blood Urea Nitrogen 31#H, Creatinine 6.93#H, Sodium Level 139, Potassium Level 4.3, Chloride Level 102, Carbon Dioxide Level 29, Calcium Level 8.0L, Total Creatine Kinase 25L, Creatine Kinase MB < 1.0, Creatine Kinase MB Relative Index 4.00, Troponin I 0.09#, Thyroid Stimulating Hormone (TSH) 2.170 04/16/18 09:15: Immature Granulocyte % (Auto) 0.6, White Blood Count 10.9H, Red Blood Count 3.32L, Hemoglobin 10.5L, Hematocrit 35.4L, Mean Corpuscular Volume 106.6H, Mean Corpuscular Hemoglobin 31.6, Mean Corpuscular Hemoglobin Concent 29.7L, Red Cell Distribution Width 15.0H, Platelet Count 158, Neutrophils (%) (Auto) 78.9H, Lymphocytes (%) (Auto) 8.6L, Monocytes (%) (Auto) 11.5H, Eosinophils (%) (Auto) 0.1, Basophils (%) (Auto) 0.3, Neutrophils # (Auto) 8.6H, Lymphocytes # (Auto) 0.9L, Monocytes # (Auto) 1.3H, Eosinophils # (Auto) 0.0, Basophils # (Auto) 0.0, Nucleated Red Blood Cells % (auto) 0.0 04/16/18 20:15: Bedside Glucose (Misc Panel) 105 CBC/BMP Laboratory Tests 04/16/18 09:14 Calcium Level 8.0 L, Total Creatine Kinase 25 L 04/16/18 09:15 Red Blood Count 3.32 L, Mean Corpuscular Volume 106.6 H, Mean Corpuscular Hemoglobin 31.6, Mean Corpuscular Hemoglobin Concent 29.7 L, Red Cell Distribution Width 15.0 H, Neutrophils (%) (Auto) 78.9 H, Lymphocytes (%) (Auto) 8.6 L, Monocytes (%) (Auto) 11.5 H, Eosinophils (%) (Auto) 0.1, Basophils (%) (Auto) 0.3, Neutrophils # (Auto) 8.6 H, Lymphocytes # (Auto) 0.9 L, Monocytes # (Auto) 1.3 H, Eosinophils # (Auto) 0.0, Basophils # (Auto) 0.0 Microbiology Microbiology 04/16/18 Blood Culture, Received Pending 04/16/18 Blood Culture, Received Pending GME ATTESTATION GME ATTESTATION My faculty preceptor for this patient encounter was Dr. Emiliana Burns, and was physically present during the encounter and was fully available. All aspects of the patient interview, examination, medical decision making process, and medical care plan development were reviewed and approved by the faculty preceptor. The faculty preceptor is aware and concurs with the plan as stated in the body of this note and will attest to such by his/her cosignature. MAKENZIE PHAM DO Apr 16, 2018 20:53
[2018-04-17 20:00] VITALS: BP 141/78
--- NOTE | 2018-04-17 20:34 | IPNPDOC ---
Subjective Date Seen The patient was seen on 04/17/18. Subjective Chief Complaint/HPI Patient seen and examined at bedside. Nods purposefully to ROS questions, but nods no to all of them. This may be inaccurate. Hard to appreciate patient's true symptoms. Nurse reports he appeared lethargic to her this AM. Has been afebrile overnight. Has not been hypotensive. In addition, he only ate half of a muffin for breakfast this morning. Is not eating well. Received metoprolol and his BP tolerated this fortunately. Dr. Clark saw patient later this morning and patient did c/o coughing and feeling tired to him. He was conversing with more appropriate mentation with Dr. Clark. General: Reports: Fatigue Constitutional: Denies: Chills, Fever Pulmonary: Reports: Cough; Denies: Dyspnea Cardiovascular: Denies: Chest Pain Gastrointestinal: Denies: Nausea, Vomiting, Abdominal Pain, Diarrhea, Constipation Musculoskeletal: Reports: Other Symptoms (denies pain) Neurological: Denies: Confusion Psych: Denies: Mood Normal Objective Physical Examination General Exam: Positive: Alert, Mild Distress Eye Exam: Negative: Sclera icteric ENT Exam: Positive: Atraumatic Neck Exam: Positive: Supple Chest Exam: Positive: Rhonchi, Diminished; Negative: Clear to auscultation, Normal air movement, Rales Heart Exam: Positive: Rate Normal, Regular Rhythm, Normal S1, Normal S2; Negative: Gallops, Murmurs Telemetry: Positive: Sinus, Tachycardia, Other Telemetry: (Rate from 102-118) Abdomen Exam: Positive: BS Hypoactive, Soft; Negative: Tenderness, Mass Extremity Exam: Positive: Other (RUE antecubital fossa with phlebitis and hardened soft tissue upon palpation without tenderness, bruising appreciated around this site, no cellulitic erythema however; LUE: black darkened scab in L antecubital fossa region where AV fistula failed graft site is--no pus draining from this site at the moment); Negative: Edema Skin Exam: Positive: Other skin issue (bruising of upper extremities in scattered areas noted ); Negative: Rash (somewhat garbled) Neuro Exam: Positive: Normal Speech Psych Exam: Positive: Mental status NL (when Dr. Clark saw patient); Negative: Mood NL Assessment /Plan Problems (1) Acute on chronic respiratory failure with hypoxia Status: Resolved Response to Treatment: Improving Problem Text: 04/17/18: Likely secondary to RSV. Continue supportive care, duonebs q4h PRN, prednisone 5 mg daily, supplemental O2 therapy. On 2 liters nasal cannula. Has not desaturated overnight. Will obtain sputum cx. Continue to tx with empiric antibiotics for possible bacterial source of infection: zosyn and vancomycin as mentioned below. Awaiting blood cx which have been negative thus far. 04/16/18: Patient admitted for acute hypoxic respiratory failure with COPD exacerbation likely secondary to RSV. Continue supplemental O2 therapy (chronically on 2 liters O2 for hx of hypoxia/COPD), duonebs tx q4h PRN, prednisone 5 mg daily. Continue to monitor respiratory status. Continue supportive care to treat RSV, but still look for other sources of infection with blood cx, culture of permacath R IJ catheter site and/or AV graft. Patient was started on vancomycin 750 mg IV with HD likely for coverage of possible bacte rial infection/MRSA bacteremia source of infection causing patient's close to septic-like picture. Have also added zosyn 2.25 gm q12h IV with 0.75 g supplement with HD for broad spectrum coverage for bacterial source of infection. Dr. Bass had mentioned in his consult note that he was going to order a Vascular Surgery Consult for assessment of the LUE failed AV graft site that could be infected for possible excision of that graft. However, I don't believe this was done. I will contact Vascular Surgery (probably Dr. Corral) and see if he is willing to see and evaluate the patient. (2) COPD with acute exacerbation Status: Resolved Response to Treatment: Improving Problem Text: 04/17/18: Continue as per tx outlined above. 04/16/18: Continue tx as outlined above. (3) RSV (respiratory syncytial virus infection) Status: Acute Problem Text: 04/16/18: Continue supportive care and tx as per assessment #1. (4) Fluid overload Status: Acute Problem Specific Plan: Consult Specialist (Nephrology) Problem Text: 04/17/18: Had net negative fluid removed yesterday of (-)845 mL. Intake was 655 mL and output was 1500 mL via HD. Had 1 incontinent void yesterday. Weight was 84.09 kg. Hard to appreciate crackes on anterior lung scott as I could not auscultate posterior lung scott today. Patient denied SOB to me in the morning, however, I do not know how accurate his "head nodding" was. Will continue monitor I/Os, clinical status. Rest of management as per Nephrology with fluid management and hemodialysis. 04/16/18: Patient has a hx of CHF--seems to be systolic as most recent echo showed reduced EF. Most recent Echocardiogram on 04/29/17 had shown LVEF of 35-40%, normal left ventricular size with borderline concentric hypertrophy, septal wall motion abnormality believed to be related to ventricular pressure overload, but hypokinesis of other james, moderately dilated L atrium with doppler evidence of an impairment of the LV diastolic function and significantly elevated mean L atrial pressure, mildly dilated and hypokinetic R ventricle with doppler evidence of severe pulmonary HTN, moderately dilated R atrium and dilated IVC with reduced respiratory collapse in keeping with an elevated central venous pressure/R heart failure, mild-moderate calcific aortic stenosis with mild insufficiency, severe mitral annular calcification without significant LV inflow tract obstruction, but moderately severe to severe insufficiency. CXR today showed heart to be mildly enlarged and there were some signs of fluid overload that were noticeable on the CXR film subtly. Patient had dialysis yesterday as per Nephrology who is managing his fluid status. Appreciate Nephrology input. (5) End stage renal disease on dialysis Status: Chronic Problem Specific Plan: Consult Specialist (Nephrology) Problem Text: 04/17/18: Continue Nephrology recommendations. Appreciate input. 04/16/18: Patient's fluid status was likely decompensated as he has not had dialysis when he was due on 04/14/18 until later today on 04/16/18. Nephrology consulted for management and HD tx. Appreciate their help. (6) AV graft malfunction Status: Chronic Problem Text: 04/17/18: Have consulted Dr. Ben Corral of Vascular Surgery who will gladly see the patient tomorrow AM to evaluate LUE AV graft for possible infection and possible surgery for excision. Appreciate his help very much. 04/16/18: Apparently, has had a L AV nonfunctioning AV graft for a while. I will try to speak to Dr. Corral of Vascular Surgery to see if he is willing to come check out the graft to see if he believes it could be infected. This is a possible source of patient's infection as Dr. Bass had wrote in his consult note. May need excision. (7) AV graft thrombosis Status: Chronic Problem Text: 04/16/18: Has nonfunctioning LUE AV graft. (8) Anemia in chronic kidney disease Status: Chronic Problem Text: 04/17/18: Stable with Hgb at 10.6 (L) today. Continue to monitor CBC. 04/16/18: Stable and at baseline. Hgb was 10.5 (L) and MCV was 106.6 (H). (9) Diabetes mellitus type 2 in obese Status: Chronic Problem Text: 04/17/18: Serum glucose still WNL at 97. FS only slightly elevated today at 155 (H) at 11:59 and 147 (H) at 16:55. Continue with current regimen with ISS at and [facility]. Will hold off on the detemir for now. Patient still not taking in much PO yet. 04/16/18: Serum glucose was WNL at 99. Patient was placed on detemir on admission, which was discontinued as patient is having poor oral intake at this time. Will just leave ISS coverage at and [facility]. Monitor FSBS for now. Will adjust therapy as needed. (10) Coronary artery disease Status: Chronic Problem Text: 04/16/18: Continue atorvastatin 20 mg QHS, plavix 75 mg daily. (11) Constipation Status: Acute Problem Text: 04/17/18: Had 2 BMs today. Continue bowel regimen as below. 04/16/18: Has been placed on bowel regimen of dulcolax suppository 10 mg daily [place] PRN constipation and colace 10 mg PO daily which should help. Will monitor I/Os. (12) Gout Status: Chronic Problem Text: 04/16/18: Continue uloric 40 mg Q2D PO. (13) GERD (gastroesophageal reflux disease) Status: Chronic Problem Text: 04/16/18: Continue pantoprazole 40 mg PO daily. (14) Diabetic neuropathy Status: Chronic Problem Text: 04/16/18: Home medications gabapentin and [place] were held on admission due to possible concern of sedation on presentation. Still on acetaminophen 650 mg q4h PRN PO pain/fever. So far, patient denies any co mplaints of pain anywhere. Though, he does not seem at this baseline mental status. Plan/VTE VTE Prophylaxis Ordered?: Yes (heparin 5000 units q12h SC) VS, I&O, 24H, [facility] Vital Signs/I&O Vital Signs Date Time Temp Pulse Resp B/P (MAP) Pulse Ox O2 Delivery O2 Flow Rate FiO2 04/17/18 16:00 2.0 04/17/18 15:47 97.0 95 18 134/67 (89) 94 Room Air I&O- Last 24 Hours up to 6 AM 04/17/18 06:00 Intake Total 655 ml Output Total 1500 ml Balance -845 ml Laboratory Data 24H LABS Laboratory Tests 2 04/16/18 20:15: Bedside Glucose (Misc Panel) 105 04/17/18 04:52: Immature Granulocyte % (Auto) 0.6, White Blood Count 6.4, Red Blood Count 3.38L, Hemoglobin 10.6L, Hematocrit 36.3L, Mean Corpuscular Volume 107.4H, Mean Corpuscular Hemoglobin 31.4, Mean Corpuscular Hemoglobin Concent 29.2L, Red Cell Distribution Width 14.9H, Platelet Count 173, Neutrophils (%) (Auto) 63.9, Lym phocytes (%) (Auto) 18.2L, Monocytes (%) (Auto) 16.3H, Eosinophils (%) (Auto) 0.5, Basophils (%) (Auto) 0.5, Neutrophils # (Auto) 4.1, Lymphocytes # (Auto) 1.2L, Monocytes # (Auto) 1.1H, Eosinophils # (Auto) 0.0, Basophils # (Auto) 0.0, Nucleated Red Blood Cells % (auto) 0.0, Blood Urea Nitrogen 15#, Creatinine 4.15H, Sodium Level 140, Potassium Level 4.2, Chloride Level 102, Carbon Dioxide Level 30, Anion Gap 8, Glomerular Filtration Rate 14.7L, Calcium Level 8.5L, Phosphorus Level 2.9, Albumin 2.1L 04/17/18 11:59: Bedside Glucose (Misc Panel) 155H 04/17/18 16:55: Bedside Glucose (Misc Panel) 147H CBC/BMP Laboratory Tests 04/17/18 04:52 Red Blood Count 3.38 L, Mean Corpuscular Volume 107.4 H, Mean Corpuscular Hemoglobin 31.4, Mean Corpuscular Hemoglobin Concent 29.2 L, Red Cell Distribution Width 14.9 H, Neutrophils (%) (Auto) 63.9, Lymphocytes (%) (Auto) 18.2 L, Monocytes (%) (Auto) 16.3 H, Eosinophils (%) (Auto) 0.5, Basophils (%) (Auto) 0.5, Neutrophils # (Auto) 4.1, Lymphocytes # (Auto) 1.2 L, Monocytes # (Auto) 1.1 H, Eosinophils # (Auto) 0.0, Basophils # (Auto) 0.0, Anion Gap 8 Microbiology Microbiology 04/16/18 Blood Culture - Preliminary, Resulted No growth after 24 hours . All specim... 04/16/18 Blood Culture - Preliminary, Resulted No growth after 24 hours . All specim... GME ATTESTATION GME ATTESTATION My faculty preceptor for this patient encounter was Dr. Volodymyr Clark, and was physically present during the encounter and was fully available. All aspects of the patient interview, examination, medical decision making process, and medical care plan development were reviewed and approved by the faculty prec eptor. The faculty preceptor is aware and concurs with the plan as stated in the body of this note and will attest to such by his/her cosignature. ATTENDING NOTE The patient was seen and examined and the chart was reviewed. The case was reviewed with the PGY-3. MAKENZIE PHAM DO Apr 17, 2018 20:34 Volodymyr Clark M.D. Apr 20, 2018 11:42
[2018-04-17] MEDS: ATORVASTATIN 20 MG TAB PO SCH (21:08)
[2018-04-18] VITALS: BP 129/67
[2018-04-18 04:00] VITALS: BP 118/57
[2018-04-18] MEDS: SLF 3 ML SYR IV SCH ×3 (05:06→21:06)
[2018-04-18 05:47] LABS: BASO % 0.5 % (0.0-1.0); EOS % 0.7 % (0.0-3.0); HEMATOCRIT 36.2 % (42.0-52.0); HEMOGLOBIN 10.7 g/dl (13.5-17.5); LYMPH # 1.2 10^3/uL (1.5-4.5); LYMPH % 21.1 % (24.0-44.0); MEAN CORPUSCULAR HEMOGLOBIN 31.7 pg (27.0-33.0); MEAN CORPUSCULAR HGB CONC 29.6 g/dl (32.0-36.5); MEAN CORPUSCULAR VOLUME 107.1 fl (80.0-96.0); MONO # 0.8 10^3/uL (0.0-0.8); MONO % 15.3 % (0.0-5.0); NEUTROPHILS # 3.4 10^3/uL (1.8-7.7); NEUTROPHILS % 61.9 % (36.0-66.0); PLATELET COUNT, AUTOMATED 197 10^3/uL (150-450); RED BLOOD COUNT 3.38 10^6/uL (4.30-6.10); WHITE BLOOD COUNT 5.5 10^3/uL (4.0-10.0)
[2018-04-18 06:13] LABS: ALBUMIN 2.2 GM/DL (3.2-5.2); CALCIUM LEVEL 8.6 MG/DL (8.8-10.2); CREATININE FOR GFR 5.65 MG/DL (0.70-1.30); GLOMERULAR FILTRATION RATE 10.3 (>35); PHOSPHORUS LEVEL 3.1 MG/DL (2.5-4.9); POTASSIUM SERUM 4.2 MEQ/L (3.5-5.1)
[2018-04-18] MEDS: HumaLOG INSULIN (NovoLOG) PER UNIT SC SCH ×4 (07:30→21:00)
[2018-04-18] MEDS: CALCIUM ACETATE 667 MG GELCAP PO SCH ×2 (07:30→16:53)
[2018-04-18] MEDS: DOCUSATE SODIUM 100 MG CAP PO SCH (07:46)
[2018-04-18 07:56] VITALS: BP 147/78
[2018-04-18] MEDS: PIPERACILLIN/TAZOBACTAM SOD 2.25 GM in D5W MINI-BAG PLUS 50 ML IV SCH ×2 (08:29→20:24)
[2018-04-18] MEDS: METOPROLOL TART 25 MG TABLET PO SCH ×2 (08:46→21:06)
[2018-04-18] MEDS: CLOPIDOGREL 75 MG TAB PO SCH (08:46)
[2018-04-18] MEDS: predniSONE 5 MG TAB PO SCH (08:46)
[2018-04-18] MEDS: FEBUXOSTAT 40 MG TABLET (ULORIC) PO SCH (08:46)
[2018-04-18] MEDS: PANTOPRAZOLE 40MG TAB (PROTONIX) PO SCH (08:46)
[2018-04-18] MEDS: HEPARIN SOD (PORCINE) 5000 UNITS/ML VIAL SC SCH ×2 (08:47→21:06)
[2018-04-18] MEDS: NS 1,000 ML IV SCH (09:15)
[2018-04-18] MEDS: methylPREDNISolone INJ 40 MG/1 ML VIAL (J2920) IV SCH ×2 (11:00→22:59)
[2018-04-18 12:00] VITALS: BP 136/72
[2018-04-18] MEDS: IPRATROPIUM 0.5MG/ALBUTEROL 2.5MG INH SOL UD 3ML (DUONEB)(J7620) NEB SCH ×3 (12:43→20:00)
[2018-04-18 15:50] VITALS: BP 144/76
[2018-04-18] MEDS: **VANCO AFTER HD** MISC XX SCH (16:00)
[2018-04-18 20:00] VITALS: BP 124/74
[2018-04-18] MEDS: ATORVASTATIN 20 MG TAB PO SCH (21:06)
[2018-04-19] VITALS: BP 145/79
[2018-04-19] MEDS: NS 1,000 ML IV SCH (03:37)
[2018-04-19 04:00] VITALS: BP 163/86
[2018-04-19] MEDS: SLF 3 ML SYR IV SCH ×3 (05:28→21:59)
[2018-04-19] MEDS: PIPERACILLIN/TAZOBACTAM SOD 2.25 GM in D5W MINI-BAG PLUS 50 ML IV SCH ×2 (06:25→20:58)
[2018-04-19] MEDS: IPRATROPIUM 0.5MG/ALBUTEROL 2.5MG INH SOL UD 3ML (DUONEB)(J7620) NEB SCH ×4 (07:14→22:46)
[2018-04-19] MEDS: CALCIUM ACETATE 667 MG GELCAP PO SCH ×2 (07:30→18:10)
[2018-04-19] MEDS: HumaLOG INSULIN (NovoLOG) PER UNIT SC SCH ×4 (07:30→21:00)
--- NOTE | 2018-04-19 07:48 | IPN ---
DATE OF VISIT: 04/18/2018 Mr. Rodriguez is seen this morning on his bedside. Nursing staff reports that he has been quite agitated and non-cooperative. He refused to take his medications and has been throwing things at the nursing staff. At the time of my visit he is awake, sitting in the bed with head end elevated at about 45 degrees. He still quite short of breath and wheezy. He denies any of the above problems. He has no fever or chills. PHYSICAL EXAMINATION: Temperature 97.1 degrees Fahrenheit, heart rate 92 per minute and respiratory rate 20 per minute. Blood pressure 136/72 mmHg and oxygen saturation 98% on 2 liters oxygen. His head is atraumatic. Neck veins are difficult to be assessed. He has a right-sided internal jugular vein hemodialysis Perma-Cath. Heart sounds are somewhat tachycardiac and irregular and lungs have bilateral wheezing and diminished breath sounds. Abdomen soft and nontender. Bowel sounds are normal. Extremities have no cyanosis or clubbing. Neurologically he is awake and able to answer simple questions. He is not agitated at the time of my visit. Today's labs show sodium level of 139, potassium 4.2, CO2 29, BUN 22 and creatinine 5.65. Calcium 8.6 and phosphorus 3.1. Albumin is 2.2. WBC count is 5.5, hemoglobin 10.7 and hematocrit 36.2. Platelets 197. PROBLEMS: 1. End-stage renal disease. The patient was dialyzed on Thursday and we will plan to dialyze him again tomorrow. His electrolytes are stable at this point. There is no emergent need for dialysis today. 2. Congestive heart failure. Volume status is probably only mildly decompensated. He is oxygenating well with 2 liters oxygen. His most recent oxygen saturation is 98%. He will be dialyzed tomorrow and we will try to remove about 1.5 to 2 liters of fluid as tolerated. 3. Chronic obstructive pulmonary artery disease (COPD). He is still quite wheezy and short of breath. He has chronic lung disease and should continue with nebulizers. 4. Hypertension. His blood pressure seems to be reasonable and I would suggest to continue with his current medications. I have talked to him and he agrees to take his pills. 5. Infected graft in left arm. The patient has been on vancomycin and Zosyn and is currently afebrile. We will try to get Dr. Corral to remove his graft during this admission. 6. Gout. He is currently asymptomatic and remains on Uloric 40 mg daily. 7. Diabetes. His blood sugars are well-controlled and should continue with current management.
[2018-04-19 08:00] VITALS: BP 152/70
[2018-04-19] MEDS: HEPARIN SOD (PORCINE) 5000 UNITS/ML VIAL SC SCH ×2 (09:00→20:59)
[2018-04-19] MEDS: METOPROLOL TART 25 MG TABLET PO SCH ×2 (09:00→20:59)
[2018-04-19] MEDS: CLOPIDOGREL 75 MG TAB PO SCH (09:00)
[2018-04-19] MEDS: DOCUSATE SODIUM 100 MG CAP PO SCH (09:00)
[2018-04-19] MEDS: PANTOPRAZOLE 40MG TAB (PROTONIX) PO SCH (09:00)
--- NOTE | 2018-04-19 09:19 | IPNPDOC ---
Subjective Date Seen The patient was seen on 04/19/18. Subjective Chief Complaint/HPI Patient seen and examined at bedside. Was asleep when I walked into patient's room with very minimally eaten breakfast on tray. Patient was very agitated when answering questions. Denied fevers, chills, chest pain, SOB, cough, pain anywhere. However, I do not know if these ROS were accurate as he has denied any symptoms whatsoever to me, but to attending physician on Thursday, he had admitted to cough and feeling tired. Patient also denies feeling sick. General: Reports: ROS Unobtainable Objective Physical Examination General Exam: Positive: Alert, No Acute Distress Eye Exam: Negative: Sclera icteric ENT Exam: Positive: Atraumatic Neck Exam: Positive: Supple Chest Exam: Positive: Rhonchi, Wheezing, Diminished; Negative: Clear to auscultation, Normal air movement, Rales Heart Exam: Positive: Rate Normal, Regular Rhythm, Normal S1, Normal S2; Negative: Gallops, Murmurs Telemetry: Positive: Sinus, Other Telemetry: (SR with occasional PVCs, PACs, HR in 80s) Abdomen Exam: Positive: Normal bowel sounds, Soft; Negative: Mass Extremity Exam: Positive: Other (Edematous RUE antecubital fossa with phlebitis and hardened soft tissue upon palpation without tenderness, bruising appreciated around this site, no cellulitic erythema however; LUE: black darkened scab in L antecubital fossa region where AV fistula failed graft site is--no pus draining from this site at the moment); Negative: Edema Skin Exam: Positive: Other skin issue (bruising of upper extremities in scattered areas noted ); Negative: Rash Neuro Exam: Positive: Normal Speech Psych Exam: Negative: Mental status NL (does not answer questions regarding place ([facility]) or time (year) appropriately), Mood NL (agitated when speaking and very rude), Oriented x 3 Assessment /Plan Problems (1) Bacteremia Status: Acute Problem Text: D4 pip/vincent, vanco 04/19 AF since admission, WBC 3.4 (04/16 10.9) 04/16 BCX1/2 G+ cocci in clusters (2) Acute on chronic respiratory failure with hypoxia Status: Acute Problem Text: 04/19/18: Still likely secondary to RSV. Duonebs have been made s cheduled QID instead of just PRN. Prednisone was discontinued. I have changed patient's supplemental O2 therapy to titrate oxygen to between 88-92% since patient has COPD hx and to avoid hypercarbia/oxygen toxicity. Was satting 100% today on 2 liters hi flow nasal cannula. Preliminary blood cx show gram (+) cocci in clusters. 04/17/18: Likely secondary to RSV. Continue supportive care, duonebs q4h PRN, prednisone 5 mg daily, supplemental O2 therapy. On 2 liters nasal cannula. Has not desaturated overnight. Will obtain sputum cx. Continue to tx with empiric antibiotics for possible bacterial source of infection: zosyn and vancomycin as mentioned below. Awaiting blood cx which have been negative thus far. 04/16/18: Patient admitted for acute hypoxic respiratory failure with COPD exacerbation likely secondary to RSV. Continue supplemental O2 therapy (chronically on 2 liters O2 for hx of hypoxia/COPD), duonebs tx q4h PRN, prednisone 5 mg daily. Continue to monitor respiratory status. Continue supportive care to treat RSV, but still look for other sources of infection with blood cx, culture of permacath R IJ catheter site and/or AV graft. Patient was started on vancomycin 750 mg IV with HD likely for coverage of possible bacterial infection/MRSA bacteremia source of infection causing patient's close to septic-like picture. Have also added zosyn 2.25 gm q12h IV with 0.75 g supplement with HD for broad spectrum coverage for bacterial source of infection. Dr. Bass had mentioned in his consult note that he was going to order a Vascular Surgery Consult for assessment of the LUE failed AV graft site that could be infected for possible excision of that graft. However, I don't believe this was done. I will contact Vascular Surgery (probably Dr. Corral) and see if he is willing to see and evaluate the patient. (3) COPD with acute exacerbation Status: Acute Problem Text: 04/19/18: Seems back to baseline respiratory status and is compensated. Maintain O2 saturations between 88-92% to avoid hypercarbia and oxygen toxicity. Continue duonebs QID and q4h PRN. Continue to monitor O2 saturations. (4) RSV (respiratory syncytial virus infection) Status: Acute Problem Text: 04/16/18: Continue supportive care and tx as per assessment #1. (5) Fluid overload Status: Acute Problem Specific Plan: Consult Specialist (Nephrology) Problem Text: 04/19/18: Has (+)510 mL balance, 2 incontinent voids, and 1 BM yesterday. Denies SOB. Do not appreciate crackles on exam today. Seems to be compensated. BMP not available yet for 04/19 so will have to follow up on electrolyte status. Weight is up to 97.6 kg from 78.7 kg yesterday. Is on MWF dialysis schedule and will have dialysis today for removal of 2783-9220 mL fluid as tolerable. Continue to monitor I/O and clinical status. Continue management as per Nephrology. Appreciate input. Encourage 1500 mL -2000 mL fluid restriction and low 2g Na diet. 04/17/18: Had net negative fluid removed yesterday of (-)845 mL. Intake was 655 mL and output was 1500 mL via HD. Had 1 incontinent void yesterday. Weight was 84. 09 kg. Hard to appreciate crackes on anterior lung scott as I could not auscultate posterior lung scott today. Patient denied SOB to me in the morning, however, I do not know how accurate his "head nodding" was. Will continue monitor I/Os, clinical status. Rest of management as per Nephrology with fluid management and hemodialysis. 04/16/18: Patient has a hx of CHF--seems to be systolic as most recent echo showed reduced EF. Most recent Echocardiogram on 04/29/17 had shown LVEF of 35-40%, normal left ventricular size with borderline concentric hypertrophy, septal wall motion abnormality believed to be related to ventricular pressure overload, but hypokinesis of other james, moderately dilated L atrium with doppler evidence of an impairment of the LV diastolic function and significantly elevated mean L atrial pressure, mildly dilated and hypokinetic R ventricle with doppler evidence of severe pulmonary HTN, moderately dilated R atrium and dilated IVC with reduced respiratory collapse in keeping with an elevated central venous pressure/R heart failure, mild-moderate calcific aortic stenosis with mild insufficiency, severe mitral annular calcification without significant LV inflow tract obstruction, but moderately severe to severe insufficiency. CXR today showed heart to be mildly enlarged and there were some signs of fluid overload that were noticeable on the CXR film subtly. Patient had dialysis yesterday as per Nephrology who is managing his fluid status. Appreciate Nephrology input. (6) End stage renal disease on dialysis Status: Chronic Problem Specific Plan: Consult Specialist (Nephrology) Problem Text: 04/19/18: BMP not available yet. Will have hemodialysis later today for 4923-9516 mL fluid removal. Is being followed and managed by Nephrology. Appreciate input. 04/17/18: Continue Nephrology recommendations. Appreciate input. 04/16/18: Patient's fluid status was likely decompensated as he has not had dialysis when he was due on 04/14/18 until later today on 04/16/18. Nephrology consulted for management and HD tx. Appreciate their help. (7) AV graft malfunction Status: Chronic Problem Text: 04/19/18: I have not heard that Dr. Corral has seen the patient yesterday. However, a consult is in place for him to do so and I have contacted him again today to ask if he can see the patient regarding his possible infected L AV fistula graft site for excision. Will await his consult. 04/17/18: Have consulted Dr. Ben Corral of Vascular Surgery who will gladly see the patient tomorrow AM to evaluate LUE AV graft for possible infection and possible surgery for excision. Appreciate his help very much. 04/16/18: Apparently, has had a L AV nonfunctioning AV graft for a while. I will try to speak to Dr. Corral of Vascular Surgery to see if he is willing to come check out the graft to see if he believes it could be infected. This is a possible source of patient's infection as Dr. Bass had wrote in his consult note. May need excision. (8) AV graft thrombosis Status: Chronic Problem Text: 04/16/18: Has nonfunctioning LUE AV graft. (9) Anemia in chronic kidney disease Status: Chronic Problem Text: 04/19/18: CBC pending today as well. Will have to follow up. 04/17/18: Stable with Hgb at 10.6 (L) today. Continue to monitor CBC. 04/16/18: Stable and at baseline. Hgb was 10.5 (L) and MCV was 106.6 (H). (10) Diabetes mellitus type 2 in obese Status: Chronic Problem Text: 04/19/18: BMP and FSBS pending today. Continue with ISS at and [facility]. Patient does not seem to be having adequate PO intake as per my assessment of his breakfast tray this morning. 04/17/18: Serum glucose still WNL at 97. FS only slightly elevated today at 155 (H) at 11:59 and 147 (H) at 16:55. Continue with current regimen with ISS at and [facility]. Will hold off on the detemir for now. Patient still not taking in much PO yet. 04/16/18: Serum glucose was WNL at 99. Patient was placed on detemir on admission, which was discontinued as patient is having poor oral intake at this time. Will just leave ISS coverage at and [facility]. Monitor FSBS for now. Will adjust therapy as needed. (11) Coronary artery disease Status: Chronic Problem Text: 04/16/18: Continue atorvastatin 20 mg QHS, plavix 75 mg daily. (12) Constipation Status: Acute Problem Text: 04/19/18: Had 1 BM yesterday and 1 BMP today. Continue current bowel regimen. 04/17/18: Had 2 BMs today. Continue bowel regimen as below. 04/16/18: Has been placed on bowel regimen of dulcolax suppository 10 mg daily MT PRN constipation and colace 10 mg PO daily which should help. Will monitor I/Os. (13) Gout Status: Chronic Problem Text: 04/16/18: Continue uloric 40 mg Q2D PO. (14) GERD (gastroesophageal reflux disease) Status: Chronic Problem Text: 04/16/18: Continue pantoprazole 40 mg PO daily. (15) Diabetic neuropathy Status: Chronic Problem Text: 04/16/18: Home medications gabapentin and [place] were held on admission due to possible concern of sedation on presentation. Still on acetaminophen 650 mg q4h PRN PO pain/fever. So far, patient denies any complaints of pain anywhere. Though, he does not seem at this baseline mental status. Plan/VTE VTE Prophylaxis Ordered?: Yes (heparin 5000 units q12h SC) Disposition Pending clinical improvement until he can go back to [facility]. VS, I&O, 24H, Fishbone Vital Signs/I&O Vital Signs Date Time Temp Pulse Resp B/P (MAP) Pulse Ox O2 Delivery O2 Flow Rate FiO2 04/19/18 04:00 2.0 04/19/18 04:00 97.6 84 22 163/86 (111) 100 High Flow Cannula I&O- Last 24 Hours up to 6 AM 04/19/18 06:00 Intake Total 470 ml Output Total 0 ml Balance 470 ml Laboratory Data 24H LABS Laboratory Tests 2 04/18/18 11:53: Bedside Glucose (Misc Panel) 124H 04/18/18 16:33: Bedside Glucose (Misc Panel) 168H 04/18/18 20:58: Bedside Glucose (Misc Panel) 185H Microbiology Microbiology 04/16/18 Blood Culture - Preliminary, Resulted No Growth after 48 hours. All Specime... 04/16/18 Blood Culture - Preliminary, Resulted GME ATTESTATION GME ATTESTATION My faculty preceptor for this patient encounter was Dr. Hari Nolan, and was physically present during the encounter and was fully available. All aspects of the patient interview, examination, medical decision making process, and medical care plan development were reviewed and approved by the faculty preceptor. The faculty preceptor is aware and concurs with the plan as stated in the body of this note and will attest to such by his/her cosignature. MAKENZIE PHAM DO Apr 19, 2018 09:19 Hari Nolan M.D. Apr 19, 2018 16:25
[2018-04-19] MEDS: methylPREDNISolone INJ 40 MG/1 ML VIAL (J2920) IV SCH (11:21)
[2018-04-19 12:00] VITALS: BP 152/60
--- NOTE | 2018-04-19 12:14 | IPN ---
DATE: 04/19/2018 Mr. Rodriguez is seen this morning on his bedside. He remains confused and at times agitated. Nursing staff reports that he refuses medications and refuses to eat. We noticed cereal spread all over his bed and on the table. He did not eat most of his breakfast. On physical examination, temperature 97.8 degrees Fahrenheit, heart rate 90 per minute and respiratory rate 22 per minute. Blood pressure 152/70 mmHg and oxygen saturation 98% on 2 liters oxygen. Head is atraumatic. Neck is supple and jugular venous distention (JVD)is difficult to assess. There is an internal jugular vein catheter in the right internal jugular vein. His heart sounds are irregular and lungs with bilateral crepitations and mild wheezing. Abdomen is obese, soft and nontender. Extremities have no cyanosis or clubbing. Left arm AV graft is clotted and part of it is visible through the skin area. This part is infected, but no obvious drainage noticed at this time. The patient refused his labs this morning and his blood cultures have been negative so far. PROBLEMS: 1. End-stage renal disease. The patient will be dialyzed later today. We can draw his labs in dialysis. 2. Altered mentation and agitation probably related to sepsis. However he also has underlying dementia. At present, we will continue to treat him and see how he improves. He currently on Zosyn and vancomycin. 3. Chronic obstructive pulmonary disease (COPD). The patient should continue with nebulizers and he is also on Solu-Medrol. 4. Hypertension. Blood pressure is reasonably well-controlled. 5. Congestive heart failure. His volume status is slightly decompensated and we will remove about 1.5 liters of fluid with dialysis today.
[2018-04-19 13:46] LABS: BASO % 0.9 % (0.0-1.0); HEMATOCRIT 35.4 % (42.0-52.0); HEMOGLOBIN 10.5 g/dl (13.5-17.5); LYMPH # 0.4 10^3/uL (1.5-4.5); LYMPH % 10.2 % (24.0-44.0); MEAN CORPUSCULAR HEMOGLOBIN 31.3 pg (27.0-33.0); MEAN CORPUSCULAR HGB CONC 29.7 g/dl (32.0-36.5); MEAN CORPUSCULAR VOLUME 105.7 fl (80.0-96.0); MONO # 0.2 10^3/uL (0.0-0.8); MONO % 5.5 % (0.0-5.0); NEUTROPHILS # 2.7 10^3/uL (1.8-7.7); NEUTROPHILS % 78.4 % (36.0-66.0); PLATELET COUNT, AUTOMATED 219 10^3/uL (150-450); RED BLOOD COUNT 3.35 10^6/uL (4.30-6.10); WHITE BLOOD COUNT 3.4 10^3/uL (4.0-10.0)
[2018-04-19 14:08] LABS: ALBUMIN 2.3 GM/DL (3.2-5.2); CALCIUM LEVEL 8.4 MG/DL (8.8-10.2); CREATININE FOR GFR 7.42 MG/DL (0.70-1.30); GLOMERULAR FILTRATION RATE 7.5 (>35); PHOSPHORUS LEVEL 3.2 MG/DL (2.5-4.9); POTASSIUM SERUM 4.5 MEQ/L (3.5-5.1); VANCOMYCIN RANDOM 17.8 UG/ML
--- NOTE | 2018-04-19 14:27 | PHACANCOPD ---
PHARMACY VANCOMYCIN DOSING Pt Demographics Demographics Patient Age:82 , Weight:97.600 , Gender: male Adjusted Body Weight Date: 04/16/18, Adjusted Body Weight: Kg Vancomycin Vancomycin Load Y/N: Yes Load Dose Date Time Vancomycin Load Dose: 1G Date: 04/16/17 Time: 0935 Vancomycin Dose Date: 04/16/18. Current Vancomycin Dose: Intermittent Dosing?: No Labs Labs Vital Signs Label Value Date Time Pulse 113 04/16/18 0803 Item Value Date Time Random Vancomycin Level 17.8 UG/ML 04/19/18 1325 Creatinine 7.42 MG/DL H 04/19/18 1325 Creatinine 5.65 MG/DL H 04/18/18 0438 Creatinine 4.15 MG/DL H 04/17/18 0452 White Blood Count 3.4 10^3/uL L 04/19/18 1325 White Blood Count 5.5 10^3/uL 04/18/18 0438 White Blood Count 6.4 10^3/uL 04/17/18 0452 Micro Microbiology 04/16/18 Blood Culture - Preliminary, Resulted No Growth after 72 hours. All specime... 04/16/18 Blood Culture - Preliminary, Resulted Creatinine Clearance Date:04/16/18. Creatinine Clearance: . Assessment and Plan Maintaining Current Dose?: Yes Reason for dose change: No Dose Change Pharmacist Note Pharmacist Note 04/19/18: Random today drawn at 1325 resulted at 17.8mcg/ml. At this time we will continue the current dose of 750mg HD. We will continue to monitor and adjust dose as needed. Date: 04/16/18. Pharmacist note: Pt. is an 82 year old male correction pt who was brought to ED due to COPD exacerbation secondary to Positive RSV. He is a dialysis pt MWF (received dialysis today). There is a possible infection to dialysis graft. He has been started on Vancomycin. He received Vanco 1G IV in the ED at 0935. I have scheduled the pt to receive Vanco 750mg IV HD starting after dialysis today. This is the dose pt has been on in the past successfully. We will continue to monitor and adjust dose as needed. MAIKOL DAN PHARMACY Apr 19, 2018 14:27
[2018-04-19] MEDS ORDERED: HEPARIN 1,000 UNITS/ML 10ML VIAL (FOR RADIOLOGY& DIALYSIS ONLY) XX ONE (14:30)
[2018-04-19] MEDS ORDERED: HEPARIN 1,000 UNITS/ML 10ML VIAL (FOR RADIOLOGY& DIALYSIS ONLY) IV ONE (14:30)
[2018-04-19 18:00] VITALS: BP 140/70
[2018-04-19] MEDS: VANCOMYCIN HCL 750 MG, VIAL MATE ADAPTER 1 EACH in D5W 250 ML IV SCH (18:19)
[2018-04-19] MEDS: **VANCO AFTER HD** MISC XX SCH (18:20)
[2018-04-19 20:00] VITALS: BP 142/66
[2018-04-19] MEDS: ATORVASTATIN 20 MG TAB PO SCH (20:58)
[2018-04-20] VITALS: BP 167/92
[2018-04-20] MEDS: SLF 3 ML SYR IV SCH ×3 (04:49→22:00)
[2018-04-20] MEDS: IPRATROPIUM 0.5MG/ALBUTEROL 2.5MG INH SOL UD 3ML (DUONEB)(J7620) NEB SCH ×4 (07:51→20:00)
[2018-04-20 08:48] LABS: HEMATOCRIT 37.4 % (42.0-52.0); HEMOGLOBIN 11.4 g/dl (13.5-17.5); MEAN CORPUSCULAR HEMOGLOBIN 31.8 pg (27.0-33.0); MEAN CORPUSCULAR HGB CONC 30.5 g/dl (32.0-36.5); MEAN CORPUSCULAR VOLUME 104.2 fl (80.0-96.0); PLATELET COUNT, AUTOMATED 242 10^3/uL (150-450); RED BLOOD COUNT 3.59 10^6/uL (4.30-6.10); WHITE BLOOD COUNT 7.1 10^3/uL (4.0-10.0)
--- NOTE | 2018-04-20 08:58 | IPNPDOC ---
Subjective Date Seen The patient was seen on 04/20/18. Subjective Chief Complaint/HPI Patient seen at bedside. Was unable to examine him as he refused exam. Was given report that patient is refusing vital signs, blooddraws for labwork, and is not being very cooperative with nursing staff. Did eat a little bit this morning: cereal and banana. However, nursing reports not eating much from their observation. Dr. Emmanuel and I spoke to patient this morning as he was stating he wanted to go home. We clarified it with patient that he meant to go back to the [facility] (not "his home"). We clarified with patient that if he wants to refuse all treatment, what that would mean for him including also possibly not receiving dialysis. We offered that we could respect his wishes if he truly did not want to take medication nor want dialysis, and he stated that's not what he said (although he did state that to me that he did not want to take any medication). He demonstrated having capacity as he stated that "I won't last very long" if he did not have dialysis. He said that's not what he wanted and does want to be treated. We informed him that his LUE AV graft site could be infected and that Dr. Corral would be coming to see him about that. I spoke to nursing staff and encouraged them to keep trying periodically to take vital signs, give him his medications, and to try to help feed him/encourage oral intake, which she will be doing. General: Reports: ROS Unobtainable Objective Physical Examination General Exam: Positive: Alert, No Acute Distress; Negative: Cooperative Eye Exam: Negative: Sclera icteric ENT Exam: Positive: Atraumatic Neck Exam: Positive: Supple Telemetry: Positive: Sinus, Other Telemetry: (Rate from 90s-93 with no PVCs or PACs.) Extremity Exam: Positive: Other (RUE antecubital fossa with phlebitis, bruising appreciated around this site, no cellulitic erythema however; LUE: black darkened scab in L antecubital fossa region where AV fistula failed graft site is--no pus draining from this site at the moment); Negative: Edema Skin Exam: Positive: Other skin issue (bruising of upper extremities in scattered areas noted ) Neuro Exam: Positive: Normal Speech Psych Exam: Positive: Mental status NL (has capacity), Mood NL (very rude and angry) Assessment /Plan Problems (1) Refusal of care by patient Status: Acute Problem Text: 04/20/18: As per HPI, patient refusing labs, vital signs, and medications. Dr. Emmanuel and I counseled him this morning about the consequences of refusing care. He demonstrated capacity of understanding this to us. Still wishes to do dialysis. We had encouraged him to take his medications and to allow nursing staff to work with him to help him to get better. We encouraged him to decide what he really wanted us to do so we could respect his wishes. We informed him that Dr. Corral would be coming to see him to check his LUE AV Fistula graft to assess this for infection and if it needed to be removed. He expressed understanding. (2) RSV (respiratory syncytial virus infection) Status: Acute Problem Text: 04/20/18: Continue supportive care. 04/16/18: Continue supportive care and tx as per assessment #1. (3) Fluid overload Status: Acute Problem Specific Plan: Consult Specialist (Nephrology) Problem Text: 04/20/18: Had dialysis yesterday, 04/19/18, with 1500 mL fluid removal. Does not appear SOB upon inspection. Wt: 77.8 kg today and 97.6 kg yesterday. Rest of management as per Nephrology. Continue to monitor I/O, clinical status. Continue management as per Nephrology. 04/17/18: Had net negative fluid removed yesterday of (-)845 mL. Intake was 655 mL and output was 1500 mL via HD. Had 1 incontinent void yesterday. Weight was 84.09 kg. Hard to appreciate crackles on anterior lung sctot as I could not auscultate posterior lung scott today. Patient denied SOB to me in the morning, however, I do not know how accurate his "head nodding" was. Will continue monitor I/Os, clinical status. Rest of management as per Nephrology with fluid management and hemodialysis. 04/16/18: Patient has a hx of CHF--seems to be systolic as most recent echo showed reduced EF. Most recent Echocardiogram on 04/29/17 had shown LVEF of 35-40%, normal left ventricular size with borderline concentric hypertrophy, septal wall motion abnormality believed to be related to ventricular pressure overload, but hypokinesis of other james, moderately dilated L atrium with doppler evidence of an impairment of the LV diastolic function and significantly elevated mean L atrial pressure, mildly dilated and hypokinetic R ventricle with doppler evidence of severe pulmonary HTN, moderately dilated R atrium and dilated IVC with reduced respiratory collapse in keeping with an elevated central venous pressure/R heart failure, mild-moderate calcific aortic stenosis with mild ins ufficiency, severe mitral annular calcification without significant LV inflow tract obstruction, but moderately severe to severe insufficiency. CXR today showed heart to be mildly enlarged and there were some signs of fluid overload that were noticeable on the CXR film subtly. Patient had dialysis yesterday as per Nephrology who is managing his fluid status. Appreciate Nephrology input. (4) End stage renal disease on dialysis Status: Chronic Problem Specific Plan: Consult Specialist (Nephrology) Problem Text: 04/20/18: Last HD was yesterday, 04/19/18. Had 1500 mL fluid removal. Continue management as per Nephrology. Appreciate recommendations. 04/17/18: Continue Nephrology recommendations. Appreciate input. 04/16/18: Patient's fluid status was likely decompensated as he has not had dialysis when he was due on 04/14/18 until later today on 04/16/18. Nephrology consulted for management and HD tx. Appreciate their help. (5) AV graft malfunction Status: Chronic Problem Text: 04/20/18: Dr. Corral had confirmed with me that he was going to see the patient yesterday, however, I am not sure if he did or if he is planning to see the patient today. I will contact him again today to follow up. 04/17/18: Have consulted Dr. Ben Corral of Vascular Surgery who will gladly see the patient tomorrow AM to evaluate LUE AV graft for possible infection and possible surgery for excision. Appreciate his help very much. 04/16/18: Apparently, has had a L AV nonfunctioning AV graft for a while. I will try to speak to Dr. Corral of Vascular Surgery to see if he is willing to come check out the graft to see if he believes it could be infected. This is a possible source of patient's infection as Dr. Bass had wrote in his consult note. May need excision. (6) AV graft thrombosis Status: Chronic Problem Text: 04/16/18: Has nonfunctioning LUE AV graft. (7) Anemia in chronic kidney disease Status: Chronic Problem Text: 04/20/18: Patient initially refused labs this AM and they seem to be pending now. 04/17/18: Stable with Hgb at 10.6 (L) today. Continue to monitor CBC. 04/16/18: Stable and at baseline. Hgb was 10.5 (L) and MCV was 106.6 (H). (8) Diabetes mellitus type 2 in obese Status: Chronic Problem Text: 04/20/18: FSBS acceptable at 182 this morning. Continue ISS at and [facility]. Monitor oral intake and encourage PO intake/hydration. 04/17/18: Serum glucose still WNL at 97. FS only slightly elevated today at 155 (H) at 11:59 and 147 (H) at 16:55. Continue with current regimen with ISS at and [facility]. Will hold off on the detemir for now. Patient still not taking in much PO yet. 04/16/18: Serum glucose was WNL at 99. Patient was placed on detemir on admission, which was discontinued as patient is having poor oral intake at this time. Will just leave ISS coverage at and [facility]. Monitor FSBS for now. Will adjust therapy as needed. (9) Coronary artery disease Status: Chronic Problem Text: 04/16/18: Continue atorvastatin 20 mg QHS, plavix 75 mg daily. (10) Constipation Status: Acute Problem Text: 04/20/18: Had 3 BMs yesterday. Continue bowel regimen. 04/17/18: Had 2 BMs today. Continue bowel regimen as below. 04/16/18: Has been placed on bowel regimen of dulcolax suppository 10 mg daily KS PRN constipation and colace 10 mg PO daily which should help. Will monitor I/Os. (11) Gout Status: Chronic Problem Text: 04/16/18: Continue uloric 40 mg Q2D PO. (12) GERD (gastroesophageal reflux disease) Status: Chronic Problem Text: 04/16/18: Continue pantoprazole 40 mg PO daily. (13) Diabetic neuropathy Status: Chronic Problem Text: 04/16/18: Home medications gabapentin and [place] were held on admission due to possible concern of sedation on presentation. Still on acetaminophen 650 mg q4h PRN PO pain/fever. So far, patient denies any complaints of pain anywhere. Though, he does not seem at this baseline mental status. (14) Acute on chronic respiratory failure with hypoxia Status: Resolved Response to Treatment: Improving Problem Text: 04/20/18: No longer hypoxic. Probably resolved around 04/19/18. Continue supportive care with duonebs, solumedrol 40 mg IV q12h, and supp lemental O2 therapy to keep sats between 88-92%. Continue zosyn and vanc for now. One set of blood cx showed staph epidermidis. The other blood cx were (-) x 72 hours. Will speak to attending physician regarding the need for zosyn. 04/17/18: Likely secondary to RSV. Continue supportive care, duonebs q4h PRN, prednisone 5 mg daily, supplemental O2 therapy. On 2 liters nasal cannula. Has not desaturated overnight. Will obtain sputum cx. Continue to tx with empiric antibiotics for possible bacterial source of infection: zosyn and vancomycin as mentioned below. Awaiting blood cx which have been negative thus far. 04/16/18: Patient admitted for acute hypoxic respiratory failure with COPD exacerbation likely secondary to RSV. Continue supplemental O2 therapy (chronically on 2 liters O2 for hx of hypoxia/COPD), duonebs tx q4h PRN, prednisone 5 mg daily. Continue to monitor respiratory status. Continue supportive care to treat RSV, but still look for other sources of infection with blood cx, culture of permacath R IJ catheter site and/or AV graft. Patient was started on vancomycin 750 mg IV with HD likely for coverage of possible bacterial infection/MRSA bacteremia source of infection causing patient's close to septic-like picture. Have also added zosyn 2.25 gm q12h IV with 0.75 g supplement with HD for broad spectrum coverage for bacterial source of infection. Dr. Bass had mentioned in his consult note that he was going to order a Vascular Surgery Consult for assessment of the LUE failed AV graft site that could be infected for possible excision of that graft. However, I don't believe this was done. I will contact Vascular Surgery (probably Dr. Corral) and see if he is willing to see and evaluate the patient. (15) COPD with acute exacerbation Status: Resolved Response to Treatment: Improving Problem Text: 04/20/18: Probably resolved around 04/19/18. Continue to tx chronic COPD with duonebs tx, O2 therapy to keep sats between 88-92%, and IV solumedrol 40 mg q12h. Will plan to start to taper tomorrow and switch to PO prednisone. 04/17/18: Continue as per tx outlined above. 04/16/18: Continue tx as outlined above. Plan/VTE VTE Prophylaxis Ordered?: Yes (heparin 5000 units q12h SC) Disposition Pending clinical improvement and hopefully Dr. Corral will evaluate LUE AV graft soon. Appreciate Nephrology recommendations as well. VS, I&O, 24H, Fishbone Vital Signs/I&O Vital Signs Date Time Temp Pulse Resp B/P (MAP) Pulse Ox O2 Delivery O2 Flow Rate FiO2 04/20/18 08:00 97.7 87 20 98 High Flow Cannula 2.0 04/20/18 00:00 167/92 (117) I&O- Last 24 Hours up to 6 AM 04/20/18 06:00 Intake Total 755 ml Output Total 1500 ml Balance -745 ml Laboratory Data 24H LABS Laboratory Tests 2 04/19/18 13:25: Immature Granulocyte % (Auto) 5.0H, White Blood Count 3.4L, Red Blood Count 3.35L, Hemoglobin 10.5L, Hematocrit 35.4L, Mean Corpuscular Volume 105.7H, Mean Corpuscular Hemoglobin 31.3, Mean Corpuscular Hemoglobin Concent 29.7L, Red Cell Distribution Width 14.8H, Platelet Count 219, Neutrophils (%) (Auto) 78.4H, Lymphocytes (%) (Auto) 10.2L, Monocytes (%) (Auto) 5.5H, Eosinophils (%) (Auto) 0.0, Basophils (%) (Auto) 0.9, Neutrophils # (Auto) 2.7, Lymphocytes # (Auto) 0.4L, Monocytes # (Auto) 0.2, Eosinophils # (Auto) 0.0, Basophils # (Auto) 0.0, Nucleated Red Blood Cells % (auto) 0.9H, Blood Urea Nitrogen 32H, Creatinine 7.42H, Sodium Level 142, Potassium Level 4.5, Chloride Level 104, Carbon Dioxide Level 26, Anion Gap 12, Glomerular Filtration Rate 7.5L, Calcium Level 8.4L, Phosphorus Level 3.2, Albumin 2.3L, Random Vancomycin Level 17.8 04/19/18 17:50: Bedside Glucose (Misc Panel) 144H 04/19/18 20:26: Bedside Glucose (Misc Panel) 222H 04/20/18 06:18: Bedside Glucose (Misc Panel) 182H CBC/BMP Laboratory Tests 04/19/18 13:25 Red Blood Count 3.35 L, Mean Corpuscular Volume 105.7 H, Mean Corpuscular Hemoglobin 31.3, Mean Corpuscular Hemoglobin Concent 29.7 L, Red Cell Distr ibution Width 14.8 H, Neutrophils (%) (Auto) 78.4 H, Lymphocytes (%) (Auto) 10.2 L, Monocytes (%) (Auto) 5.5 H, Eosinophils (%) (Auto) 0.0, Basophils (%) (Auto) 0.9, Neutrophils # (Auto) 2.7, Lymphocytes # (Auto) 0.4 L, Monocytes # (Auto) 0.2, Eosinophils # (Auto) 0.0, Basophils # (Auto) 0.0, Anion Gap 12 Microbiology Microbiology 04/16/18 Blood Culture - Preliminary, Resulted No Growth after 72 hours. All specime... 04/16/18 Blood Culture - Final, Complete Staphylococcus Epidermidis GME ATTESTATION GME ATTESTATION My faculty preceptor for this patient encounter was Dr. Hari Nolan, and was physically present during the encounter and was fully available. All aspects of the patient interview, examination, medical decision making process, and medical care plan development were reviewed and approved by the faculty preceptor. The faculty preceptor is aware and concurs with the plan as stated in the body of this note and will attest to such by his/her cosignature. MAKENZIE PHAM DO Apr 20, 2018 08:58
[2018-04-20 09:12] LABS: ALBUMIN 2.5 GM/DL (3.2-5.2); CALCIUM LEVEL 8.6 MG/DL (8.8-10.2); CREATININE FOR GFR 3.97 MG/DL (0.70-1.30); GLOMERULAR FILTRATION RATE 15.5 (>35); PHOSPHORUS LEVEL 1.5 MG/DL (2.5-4.9); POTASSIUM SERUM 3.9 MEQ/L (3.5-5.1)
--- NOTE | 2018-04-20 09:27 | IPN ---
DATE: 04/18/2018 Patient is seen today on progressive care unit (PCU). He remains afebrile. He still has noisy breathing, although he is not complaining of any shortness of breath. He was somewhat cranky with the nurses this morning and refused to take his medicines. He was much calmer with me and I impressed upon him the need to take his medicines so as not to prolong his hospitalization. He had dialysis two days ago, so will not be having any until tomorrow. He is not complaining of any pain anywhere. He does not say that he is short of short of breath and not having any discomfort in his arms over any of his thrombosed dialysis fistulas. CURRENT MEDICATION REGIMEN: Calls for him to get: - subcutaneous heparin, which he refused this morning - atorvastatin - sliding scale insulin - Zosyn - PhosLo - vancomycin - DuoNebs - He has as-needed medications for nausea, for bowel care, for cough - clopidogrel - Colace - Uloric - Lopressor - prednisone - Protonix On examination, his temperature this morning is 97.0, pulse is 94 and regular, respirations are 20, they are somewhat noisy, but breathing does not seem labored, blood pressure was 147/78, oxygen saturation 97% on 2 liters. He is alert and cooperative, does not appear in any distress. He does seem to be tired. He does have some cough and his voice is somewhat raspy. He is oriented to place, but not oriented to time this morning. There is no facial weakness. Speech is clear. There is no neck masses, tenderness or adenopathy. No carotid bruits. His lungs show some fibrotic-sounding rales at the right base. Most of the congestion that we hear seems to emanate more from his throat and his upper airways rather than from within the lung bases themselves. He has a subclavicular or subclavian catheter on the right for dialysis. Abdomen is soft and nontender without any masses or organomegaly. Bowel sounds are active. There is no edema. His hemoglobin is 10.7, WBC 5500. Blood cultures are negative. Chemistry profile shows BUN of 22, creatinine 5.65, potassium 4.2, glucose was 100. Looking at his arms, there are no open areas and no areas of drainage of purulent material. He does have a little bit of erythema of the left arm. There is the fibrosed atrioventricular (AV) shunt with some eschar that is very dry over the mid arm below the shoulder. Field Reimbursement Manager are symmetric and not having any tremors. ASSESSMENT: 1. Acute on chronic respiratory failure with hypoxia. Hypoxia is controlled with O2. He is on dual antibiotic therapy. 2. Chronic obstructive pulmonary disease (COPD) with acute exacerbation. See below. 3. Respiratory syncytial virus (RSV) infection. See below. 4. Fluid overload. See below. 5. End-stage renal disease on dialysis. See below. Question AV graft infection. 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 6. Chronic anemia due to kidney disease. 7. Diabetes mellitus. Controlled. 8. Coronary artery disease. Stable. 9. Gout. Stable. 10. Reflux. Stable. 11. Neuropathy. Stable. PLAN: Patient will continue on his current treatment program. I am going to bump up his steroids and also put him on scheduled nebulizers. Looking at his orders, it appears that he is only on as needed nebulizers. I think it would help his respiratory situation and his noisiness of respirations by putting him on scheduled. Dialysis tomorrow should help with some of his congestion. I feel that we always have an issue with fluid overload with pulmonary effects when he gets dyspneic. He is a DO NOT RESUSCITATE by his wishes. MARIPOSA
[2018-04-20 09:53] LABS: ATYPICAL LYMPH 4 % (0-5); LYMPHOCYTES 8 % (16-52); NEUTROPHILS 83 % (35-75)
[2018-04-20 09:55] LABS: OVALOCYTES 1+; PLATELET ESTIMATE NORMAL (NORMAL); POIKILOCYTOSIS 2+
[2018-04-20] MEDS: CALCIUM ACETATE 667 MG GELCAP PO SCH ×2 (09:59→18:04)
[2018-04-20] MEDS: PANTOPRAZOLE 40MG TAB (PROTONIX) PO SCH (09:59)
[2018-04-20] MEDS: CLOPIDOGREL 75 MG TAB PO SCH (09:59)
[2018-04-20] MEDS: FEBUXOSTAT 40 MG TABLET (ULORIC) PO SCH (09:59)
[2018-04-20] MEDS: METOPROLOL TART 25 MG TABLET PO SCH ×2 (09:59→20:29)
[2018-04-20] MEDS: NS 1,000 ML IV SCH (10:00)
[2018-04-20] MEDS: DOCUSATE SODIUM 100 MG CAP PO SCH (10:00)
[2018-04-20] MEDS: HEPARIN SOD (PORCINE) 5000 UNITS/ML VIAL SC SCH ×2 (10:00→20:29)
[2018-04-20] MEDS: PIPERACILLIN/TAZOBACTAM SOD 2.25 GM in D5W MINI-BAG PLUS 50 ML IV SCH ×2 (10:01→20:29)
[2018-04-20] MEDS: methylPREDNISolone INJ 40 MG/1 ML VIAL (J2920) IV SCH ×3 (10:20→23:48)
[2018-04-20] MEDS: HumaLOG INSULIN (NovoLOG) PER UNIT SC SCH ×4 (10:21→20:30)
[2018-04-20 15:30] LABS: C REACTIVE PROTEIN QUANTITATIV 5.9 MG/DL (0.00-0.30)
[2018-04-20 16:00] VITALS: BP 178/80
[2018-04-20] MEDS: **VANCO AFTER HD** MISC XX SCH (19:57)
[2018-04-20 20:00] VITALS: BP 160/83
[2018-04-20] MEDS: ATORVASTATIN 20 MG TAB PO SCH (20:29)
--- NOTE | 2018-04-20 21:45 | IPN ---
DATE: 04/20/2018 Mr. Rodriguez is seen this morning on his bedside. His nurse is present in the room and given his medications and the patient took his pills today without any problem. Previously he was refusing and was agitated. Nursing staff also report that he did eat about 25% of his breakfast while he was refusing food yesterday too. He was dialyzed yesterday which he had no problem with. PHYSICAL EXAMINATION Temperature 97.6 degrees Fahrenheit, heart rate 88 per minute and respiratory rate 20 per minute. Blood pressure is up at 185/90 mmHg and oxygen saturation 100% on 2 liters oxygen. His head is atraumatic. There is no oral thrush or ulcers. Neck is supple and JVD is not elevated. Right-sided internal jugular vein dialysis catheter is in place. Heart: Sounds are irregular in rhythm. Lungs with slightly diminished breath sounds and expiratory rhonchi. Abdomen is soft and nontender. Bowel sounds are present. Extremities: Have no cyanosis or clubbing. Neurologically he is awake and at his baseline mentation. Today's labs show WBC count 7.1, hemoglobin 11.4 and hematocrit 37.4. Sodium 136, potassium 3.9, BUN 15 and creatinine 3.97. Calcium 8.6 and phosphorus is 1.5. PROBLEMS: 1. End-stage renal disease. The patient is regularly dialyzed on Thursday, Thursday and Thursday schedule. His dialysis will be again tomorrow. His volume status is well-compensated at present. 2. Pneumonia. The patient remains on Zosyn and vancomycin and seems to be improving. 3. Left arm infected and clotted AV graft. This is an old graft which seems to be chronically infected. I do not see any acute drainage or cellulitis. We will try to get this graft excised at appropriate time. 4. Hypotension. This is related to decreased oral intake and I am going to stop his phosphate binders for now. We will watch his phosphorus over the next few days. At this point we will not give a phosphorus supplement as it is likely to improve when he starts eating better. 5. Anemia. His anemia is stable and does not need any intervention at present.
[2018-04-21] VITALS: BP 192/94
[2018-04-21 02:45] VITALS: BP 177/94
[2018-04-21 05:43] LABS: HEMOGLOBIN 11.5 g/dl (13.5-17.5); MEAN CORPUSCULAR HEMOGLOBIN 31.6 pg (27.0-33.0); MEAN CORPUSCULAR HGB CONC 30.3 g/dl (32.0-36.5); MEAN CORPUSCULAR VOLUME 104.4 fl (80.0-96.0); PLATELET COUNT, AUTOMATED 253 10^3/uL (150-450); RED BLOOD COUNT 3.64 10^6/uL (4.30-6.10); WHITE BLOOD COUNT 8.1 10^3/uL (4.0-10.0)
[2018-04-21] MEDS: SLF 3 ML SYR IV SCH ×3 (05:53→21:52)
[2018-04-21 06:11] LABS: ALBUMIN 2.4 GM/DL (3.2-5.2); CALCIUM LEVEL 8.7 MG/DL (8.8-10.2); CREATININE FOR GFR 5.31 MG/DL (0.70-1.30); GLOMERULAR FILTRATION RATE 11.1 (>35); PHOSPHORUS LEVEL 1.1 MG/DL (2.5-4.9); VANCOMYCIN RANDOM 24.2 UG/ML
[2018-04-21 06:38] LABS: ATYPICAL LYMPH 1 % (0-5); LYMPHOCYTES 9 % (16-52); MONOCYTES 4 % (0-8); MYELOCYTES 2 % (0-0); NEUTROPHILS 83 % (35-75); PLATELET ESTIMATE NORMAL (NORMAL)
[2018-04-21 06:39] LABS: ANISOCYTOSIS 1+; OVALOCYTES 1+
[2018-04-21] MEDS: HumaLOG INSULIN (NovoLOG) PER UNIT SC SCH ×4 (07:30→20:29)
--- NOTE | 2018-04-21 07:40 | PHACANCOPD ---
PHARMACY VANCOMYCIN DOSING Pt Demographics Demographics Patient Age:82 , Weight:77.800 , Gender: male Adjusted Body Weight Date: 04/16/18, Adjusted Body Weight: Kg Vancomycin Vancomycin indication: dialysis graft infection Vancomycin Target Ranges: 10-20 mcg/ml Vancomycin Load Y/N: Yes Load Dose Date Time Vancomycin Load Dose: 1G Date: 04/16/17 Time: 0935 Vancomycin Dose Date: 04/16/18. Current Vancomycin Dose: [500mg IV HD] Intermittent Dosing?: No Labs Micro Microbiology 04/16/18 Blood Culture - Preliminary, Resulted No Growth after 72 hours. All specime... 04/16/18 Blood Culture - Final, Complete Staphylococcus Epidermidis Creatinine Clearance Date:04/16/18. Creatinine Clearance: . Assessment and Plan Maintaining Current Dose?: No Reason for dose change: Trough too high Pharmacist Note Pharmacist Note 04/21/18: Day #6 IV vancomycin for the treatment of an AV graft infection. Random level today resulted at 24.2mcg/ml. We will reduce the patient's post HD regimen to 500mg IV post-HD, to be given after today's dialysis session. A follow-up random level has been scheduled to be drawn 04/23/18, prior to the next HD session. We will continue to monitor and adjust dosing further if needed. 04/19/18: Random today drawn at 1325 resulted at 17.8mcg/ml. At this time we will continue the current dose of 750mg HD. We will continue to monitor and adjust dose as needed. Date: 04/16/18. Pharmacist note: Pt. is an 82 year old male [facility]pc pt who was brought to ED due to COPD exacerbation secondary to Positive RSV. He is a dialysis pt MWF (received dialysis today). There is a possible infection to dialysis graft. He has been started on Vancomycin. He received Vanco 1G IV in the ED at 0935. I have scheduled the pt to receive Vanco 750mg IV HD starting after dialysis today. This is the dose pt has been on in the past successfully. We will continue to monitor and adjust dose as needed. ERICKA UP PHARMAC[facility] Apr 21, 2018 07:40
[2018-04-21] MEDS: CLOPIDOGREL 75 MG TAB PO SCH (07:54)
[2018-04-21] MEDS: PIPERACILLIN/TAZOBACTAM SOD 2.25 GM in D5W MINI-BAG PLUS 50 ML IV SCH ×2 (07:54→20:27)
[2018-04-21] MEDS: PANTOPRAZOLE 40MG TAB (PROTONIX) PO SCH (07:54)
[2018-04-21] MEDS: NS 1,000 ML IV SCH (07:55)
[2018-04-21] MEDS: METOPROLOL TART 25 MG TABLET PO SCH ×2 (07:55→20:28)
[2018-04-21] MEDS: DOCUSATE SODIUM 100 MG CAP PO SCH (07:55)
[2018-04-21] MEDS: HEPARIN SOD (PORCINE) 5000 UNITS/ML VIAL SC SCH ×2 (07:56→20:29)
[2018-04-21] MEDS: IPRATROPIUM 0.5MG/ALBUTEROL 2.5MG INH SOL UD 3ML (DUONEB)(J7620) NEB SCH ×4 (08:00→20:00)
[2018-04-21 08:06] LABS: ERYTHROCYTE SEDIMENTATION RATE 40 mm/hr (0-20)
--- NOTE | 2018-04-21 08:17 | IPNPDOC ---
Subjective Date Seen The patient was seen on 04/21/18. Subjective Chief Complaint/HPI Patient was being prepped for dialysis as I entered the room. He reported to feel "fine". He allowed partial assessment then asked for me to leave him alone requesting I come see him after dialysis Constitutional: Denies: Chills Pulmonary: Denies: Cough Cardiovascular: Denies: Chest Pain, Orthopnea, Edema Gastrointestinal: Denies: Nausea Psych: Reports: Other Psych (Cantankerous ) Objective Physical Examination General Exam: Positive: Alert, No Acute Distress Eye Exam: Negative: Sclera icteric ENT Exam: Positive: Atraumatic Neck Exam: Positive: Supple; Negative: JVD Chest Exam: Positive: Rhonchi, Diminished; Negative: Clear to auscultation, Normal air movement, Rales Heart Exam: Positive: Rate Normal, Regular Rhythm, Normal S1, Normal S2; Negative: Gallops, Murmurs Telemetry: Positive: Sinus, Tachycardia, Other Telemetry: Abdomen Exam: Positive: Normal bowel sounds, Soft; Negative: Tenderness, Mass Extremity Exam: Positive: Other (RUE antecubital fossa with phlebitis and hardened soft tissue upon palpation without tenderness, bruising appreciated around this site, no cellulitic erythema however; LUE: black darkened scab in L antecubital fossa region where AV fistula failed graft site is--no pus draining from this site at the moment); Negative: Edema Skin Exam: Positive: Other skin issue (bruising of upper extremities in scattered areas noted ); Negative: Rash Neuro Exam: Positive: Normal Speech Psych Exam: Positive: Mental status NL; Negative: Mood NL Assessment /Plan Problems (1) RSV (respiratory syncytial virus infection) Status: Acute Problem Text: 04/21/17: Continue supportive care 04/20/18: Continue supportive care. 04/16/18: Continue supportive care and tx as per assessment #1. (2) Refusal of care by patient Status: Acute Problem Text: 04/21/18: Patient appeared a little more agreeable today. He was taking his medications as I entered the room, allowed for partial assessment and asked me to return after his dialysis 04/20/18: As per HPI, patient refusing labs, vital signs, and medications. Dr. Emmanuel and I counseled him this morning about the consequences of refusing care. He demonstrated capacity of understanding this to us. Still wishes to do dialysis. We had encouraged him to take his medications and to allow nursing staff to work with him to help him to get better. We encouraged him to decide what he really wanted us to do so we could respect his wishes. We informed him that Dr. Corral would be coming to see him to check his LUE AV Fistula graft to assess this for infection and if it needed to be removed. He expressed und erstanding. (3) Fluid overload Status: Acute Problem Specific Plan: Consult Specialist (Nephrology) Problem Text: 04/21/18: Patient appeared euvolemic today. Dialysis today. Management per nephrology 04/20/18: Had dialysis yesterday, 04/19/18, with 1500 mL fluid removal. Does not appear SOB upon inspection. Wt: 77.8 kg today and 97.6 kg yesterday. Rest of management as per Nephrology. Continue to monitor I/O, clinical status. Continue management as per Nephrology. 04/17/18: Had net negative fluid removed yesterday of (-)845 mL. Intake was 655 mL and output was 1500 mL via HD. Had 1 incontinent void yesterday. Weight was 84.09 kg. Hard to appreciate crackles on anterior lung scott as I could not auscultate posterior lung scott today. Patient denied SOB to me in the morning, however, I do not know how accurate his "head nodding" was. Will continue monitor I/Os, clinical status. Rest of management as per Nephrology with fluid management and hemodialysis. 04/16/18: Patient has a hx of CHF--seems to be systolic as most recent echo showed reduced EF. Most recent Echocardiogram on 04/29/17 had shown LVEF of 35-40%, normal left ventricular size with borderline concentric hypertrophy, septal wall motion abnormality believed to be related to ventricular pressure overload, but hypokinesis of other james, moderately dilated L atrium with doppler evidence of an impairment of the LV diastolic function and significantly elevated mean L atrial pressure, mildly dilated and hypokinetic R ventricle with doppler evidence of severe pulmonary HTN, moderately dilated R atrium and dilated IVC with reduced respiratory collapse in keeping with an elevated central venous pressure/R heart failure, mild-moderate calcific aortic stenosis with mild insufficiency, severe mitral annular calcification without significant LV inflow tract obstruction, but moderately severe to severe insufficiency. CXR today showed heart to be mildly enlarged and there were some signs of fluid overload that were noticeable on the CXR film subtly. Patient had dialysis yesterday as per Nephrology who is managing his fluid status. Appreciate Nephrology input. (4) End stage renal disease on dialysis Status: Chronic Problem Specific Plan: Consult Specialist (Nephrology) Problem Text: 04/21/17: As above 04/20/18: Last HD was yesterday, 04/19/18. Had 1500 mL fluid removal. Continue management as per Nephrology. Appreciate recommendations. 04/17/18: Continue Nephrology recommendations. Appreciate input. 04/16/18: Patient's fluid status was likely decompensated as he has not had dialysis when he was due on 04/14/18 until later today on 04/16/18. Nephrology consulted for management and HD tx. Appreciate their help. (5) AV graft malfunction Status: Chronic Problem Text: 04/21/17: Plan is for the graft to be excised at the appropriate time. There are no progress notes from Dr. Corral to review. Patient remains on Vancomycin and Zoysn. Primary care team has further questions: 1. will graft excision be performed during hospitalization? 2. Do abx remain on board until graft excision? 04/20/18: Dr. Corral had confirmed with me that he was going to see the patient yesterday, however, I am not sure if he did or if he is planning to see the patient today. I will contact him again today to follow up. 04/17/18: Have consulted Dr. Ben Corral of Vascular Surgery who will gladly see the patient tomorrow AM to evaluate LUE AV graft for possible infection and possible surgery for excision. Appreciate his help very much. 04/16/18: Apparently, has had a L AV nonfunctioning AV graft for a while. I will try to speak to Dr. Corral of Vascular Surgery to see if he is willing to come check out the graft to see if he believes it could be infected. This is a possible source of patient's infection as Dr. Bass had wrote in his consult note. May need excision. (6) AV graft thrombosis Status: Chronic Problem Text: 04/16/18: Has nonfunctioning LUE AV graft. (7) Anemia in chronic kidney disease Status: Chronic Problem Text: 04/21/18: ESRD, Hgb 11.5 04/20/18: Patient initially refused labs this AM and they seem to be pending now. 04/17/18: Stable with Hgb at 10.6 (L) today. Continue to monitor CBC. 04/16/18: Stable and at baseline. Hgb was 10.5 (L) and MCV was 106.6 (H). (8) Diabetes mellitus type 2 in obese Status: Chronic Problem Text: 04/20/18: FSBS acceptable at 182 this morning. Continue ISS at and [facility]. Monitor oral intake and encourage PO intake/hydration. 04/17/18: Serum glucose still WNL at 97. FS only slightly elevated today at 155 (H) at 11:59 and 147 (H) at 16:55. Continue with current regimen with ISS at and [facility]. Will hold off on the detemir for now. Patient still not taking in much PO yet. 04/16/18: Serum glucose was WNL at 99. Patient was placed on detemir on admission, which was discontinued as patient is having poor oral intake at this time. Will just leave ISS coverage at and [facility]. Monitor FSBS for now. Will adjust therapy as needed. (9) Coronary artery disease Status: Chronic Problem Text: 04/16/18: Continue atorvastatin 20 mg QHS, plavix 75 mg daily. (10) Constipation Status: Acute Problem Text: 04/20/18: Had 3 BMs yesterday. Continue bowel regimen. 04/17/18: Had 2 BMs today. Continue bowel regimen as below. 04/16/18: Has been placed on bowel regimen of dulcolax suppository 10 mg daily OH PRN constipation and colace 10 mg PO daily which should help. Will monitor I/Os. (11) Gout Status: Chronic Problem Text: 04/16/18: Continue uloric 40 mg Q2D PO. (12) GERD (gastroesophageal reflux disease) Status: Chronic Problem Text: 04/16/18: Continue pantoprazole 40 mg PO daily. (13) Diabetic neuropathy Status: Chronic Problem Text: 04/16/18: Home medications gabapentin and [place] were held on admission due to possible concern of sedation on presentation. Still on acetaminophen 650 mg q4h PRN PO pain/fever. So far, patient denies any complaints of pain anywhere. Though, he does not seem at this baseline mental status. (14) Acute on chronic respiratory failure with hypoxia Status: Resolved Response to Treatment: Improving Problem Text: 04/20/18: No longer hypoxic. Probably resolved around 04/19/18. Continue supportive care with duonebs, solumedrol 40 mg IV q12h, and supplemental O2 therapy to keep sats between 88-92%. Continue zosyn and vanc for now. One set of blood cx showed staph epidermidis. The other blood cx were (-) x 72 hours. Will speak to attending physician regarding the need for zosyn. 04/17/18: Likely secondary to RSV. Continue supportive care, duonebs q4h PRN, prednisone 5 mg daily, supplemental O2 therapy. On 2 liters nasal cannula. Has not desaturated overnight. Will obtain sputum cx. Continue to tx with empiric antibiotics for possible bacterial source of infection: zosyn and vancomycin as mentioned below. Awaiting blood cx which have been negative thus far. 04/16/18: Patient admitted for acute hypoxic respiratory failure with COPD exacerbation likely secondary to RSV. Continue supplemental O2 therapy (chronically on 2 liters O2 for hx of hypoxia/COPD), duonebs tx q4h PRN, prednisone 5 mg daily. Continue to monitor respiratory status. Continue supportive care to treat RSV, but still look for other sources of infection with blood cx, culture of permacath R IJ catheter site and/or AV graft. Patient was started on vancomycin 750 mg IV with HD likely for coverage of possible bacterial infection/MRSA bacteremia source of infection causing patient's close to septic-like picture. Have also added zosyn 2.25 gm q12h IV with 0.75 g supplement with HD for broad spectrum coverage for bacterial source of infection. Dr. Bass had mentioned in his consult note that he was going to order a Vascular Surgery Consult for assessment of the LUE failed AV graft site that could be infected for possible excision of that graft. However, I don't believe this was done. I will contact Vascular Surgery (probably Dr. Corral) and see if he is willing to see and evaluate the patient. (15) COPD with acute exacerbation Status: Resolved Response to Treatment: Improving Problem Text: 04/20/18: Probably resolved around 04/19/18. Continue to tx chronic COPD with duonebs tx, O2 therapy to keep sats between 88-92%, and IV solumedrol 40 mg q12h. Will plan to start to taper tomorrow and switch to PO prednisone. 04/17/18: Continue as per tx outlined above. 04/16/18: Continue tx as outlined above. Plan/VTE VTE Prophylaxis Ordered?: Yes (heparin 5000 units q12h SC) VS, I&O, 24H, Fishbone Vital Signs/I&O Vital Signs Date Time Temp Pulse Resp B/P (MAP) Pulse Ox O2 Delivery O2 Flow Rate FiO2 04/21/18 07:55 81 177/94 04/21/18 04:00 2.0 04/21/18 02:45 High Flow Cannula 04/21/18 00:00 96.3 18 100 I&O- Last 24 Hours up to 6 AM 04/21/18 06:00 Intake Total 530 ml Output Total 0 ml Balance 530 ml Laboratory Data 24H LABS Laboratory Tests 2 04/20/18 08:28: Immature Granulocyte % (Auto) , Nucleated Red Blood Cells % (auto) 1.0H, Neutrophils 83H, Band Neutrophils 5, Lymphocytes (Manual) 8L, Atypical Lymphocytes 4, Platelet Estimate NORMAL, Poikilocytosis 2+, Macrocytosis 2+, Ovalocytes 1+, Acanthocytes 1+, Blood Urea Nitrogen 15#, Creatinine 3.97H, Sodium Level 136, Potassium Level 3.9, Chloride Level 100, Carbon Dioxide Level 23, Anion Gap 13, Glomerular Filtration Rate 15.5L, Calcium Level 8.6L, Phosphorus Level 1.5#L, C-Reactive Protein, Quantitative 5.90H, Albumin 2.5L 04/20/18 12:21: Bedside Glucose (Misc Panel) 209H 04/20/18 17:41: Bedside Glucose (Misc Panel) 184H 04/20/18 19:48: Bedside Glucose (Misc Panel) 176H 04/21/18 05:16: Immature Granulocyte % (Auto) , Nucleated Red Blood Cells % (auto) 1.4H, Neutrophils 83H, Band Neutrophils 1, Lymphocytes (Manual) 9L, Monocytes (Manual) 4, Myelocytes 2H, Atypical Lymphocytes 1, Platelet Estimate NORMAL, Anisocytosis 1+, Macrocytosis 2+, Ovalocytes 1+, Erythrocyte Sedimentation Rate 40H, Blood Urea Nitrogen 23#H, Creatinine 5.31H, Sodium Level 138, Potassium Level 4.0, Chloride Level 104, Carbon Dioxide Level 26, Anion Gap 8, Glomerular Filtration Rate 11.1L, Calcium Level 8.7L, Phosphorus Level 1.1#L, Albumin 2.4L, Random Vancomycin Level 24.2 CBC/BMP Laboratory Tests 04/20/18 08:28 Red Blood Count 3.59 L, Mean Corpuscular Volume 104.2 H, Mean Corpuscular Hemoglobin 31.8, Mean Corpuscular Hemoglobin Concent 30.5 L, Red Cell Distribution Width 14.8 H, Anion Gap 13 04/21/18 05:16 Red Blood Count 3.64 L, Mean Corpuscular Volume 104.4 H, Mean Corpuscular Hemoglobin 31.6, Mean Corpuscular Hemoglobin Concent 30.3 L, Red Cell Distribution Width 15.0 H, Anion Gap 8 Microbiology Microbiology 04/16/18 Blood Culture - Preliminary, Resulted No Growth after 72 hours. All specime... 04/16/18 Blood Culture - Final, Complete Staphylococcus Epidermidis GAETANO TREVIÑO Apr 21, 2018 08:17
--- NOTE | 2018-04-21 08:24 | IPNPDOC ---
Subjective Date Seen The patient was seen on 04/21/18. Subjective Chief Complaint/HPI Patient seen and not examined today. Refuses examination. Was reportedly more cooperative with nursing staff yesterday after Dr. Emmanuel and I talked to him. Had labs drawn this morning. Took medications yesterday. Nurse called patient's daughter the other day who stated that patient is usually confused if he doesn't have his glasses or his television on. Glasses were obtained and television was put on, but patient still reportedly not cooperative. I tried to examine patient multiple times this morning, but was unsuccessful as patient had said: "get out of here, I don't want you, Jac Long." Nursing staff reports patient has rhonchi in his lung exam, his upper extremities have 2 (+) edema, and his lower extremities have 1 (+) edema. Got in touch with Dr. Corral yesterday who stated he did see the patient and stated that his L arm AV graft needs to be removed. If patient is still in the hospital, he will do the surgery this or Thursday. If not, then he can bring him back as an outpatient. It is nonurgent surgery. General: Reports: ROS Unobtainable Objective Physical Examination General Exam: Positive: Alert, No Acute Distress Eye Exam: Negative: Sclera icteric ENT Exam: Positive: Atraumatic Neck Exam: Positive: Supple Telemetry: Positive: Sinus, Other Telemetry: (Sinus Rhythm in with HR in 70s- 80s, and one episode of Sinus Tach with HR in 150s--likely artifact.) Abdomen Exam: Negative: Mass Extremity Exam: Positive: Other (RUE antecubital fossa with phlebitis and hardened soft tissue upon palpation without tenderness, bruising appreciated around this site, no cellulitic erythema however; LUE: black darkened scab in L antecubital fossa region where AV fistula failed graft site is--no pus draining from this site at the moment) Skin Exam: Positive: Other skin issue (bruising of upper extremities in scattered areas noted ) Neuro Exam: Positive: Normal Speech Psych Exam: Positive: Mental status NL, Mood NL (very agitated and angry same as yesterday) Assessment /Plan Problems (1) Refusal of care by patient Status: Acute Problem Text: 04/21/18: As per HPI, refused exam again today. Had long discussion with patient regarding coordinating care with his other providers/specialists and that I was acting as his primary physician. However, he stated "I don't want you." Have asked Gill Palmer of the Family Medicine service to take a look at him and to transfer him to Med/Surg as he likely is not PCU status any longer. He is stable from a medical standpoint. 04/20/18: As per HPI, patient refusing labs, vital signs, and medications. Dr. Emmanuel and I counseled him this morning about the consequences of refusing care. He demonstrated capacity of understanding this to us. Still wishes to do dialysis. We had encouraged him to take his medications and to allow nursing staff to work with him to help him to get better. We encouraged him to decide what he really wanted us to do so we could respect his wishes. We informed him that Dr. Corral would be coming to see him to check his LUE AV Fistula graft to assess this for infection and if it needed to be removed. He expressed understanding. (2) Pneumonia Status: Acute Response to Treatment: Stable Problem Text: 04/21/18: Since patient has rhonchi in lungs and CXR was a bit questionable for an infiltrate, it is possible patient has pneumonia and he is on vanc and zosyn, which is helpful for this. However, vanc was begun by Dr. Bass likely for AV graft infection. Zosyn was begun by myself and Dr. Gentile due to patient appearing septic at beginning of hospitalization and for more broad spectrum coverage until blood cx returned. Will ask attending physician for further recommendations. (3) Hypophosphatemia Status: Acute Problem Text: 04/21/18: Phosphorus level is low. (4) RSV (respiratory syncytial virus infection) Status: Acute Problem Text: 04/21/18: Continue supportive care. 04/20/18: Continue supportive care. 04/16/18: Continue supportive care and tx as per assessment #1. (5) Fluid overload Status: Acute Problem Specific Plan: Consult Specialist (Nephrology) Problem Text: 04/21/18: Is scheduled for having dialysis today. Is on MWF dialysis schedule. Does not appear SOB on inspection. Continue monitoring I/O. Management as per Nephrology. 04/20/18: Had dialysis yesterday, 04/19/18, with 1500 mL fluid removal. Does not appear SOB upon inspection. Wt: 77.8 kg today and 97.6 kg yesterday. Rest of management as per Nephrology. Continue to monitor I/O, clinical status. Continue management as per Nephrology. 04/17/18: Had net negative fluid removed yesterday of (-)845 mL. Intake was 655 mL and output was 1500 mL via HD. Had 1 incontinent void yesterday. Weight was 84.09 kg. Hard to appreciate crackles on anterior lung scott as I could not a uscultate posterior lung scott today. Patient denied SOB to me in the morning, however, I do not know how accurate his "head nodding" was. Will continue monitor I/Os, clinical status. Rest of management as per Nephrology with fluid management and hemodialysis. 04/16/18: Patient has a hx of CHF--seems to be systolic as most recent echo showed reduced EF. Most recent Echocardiogram on 04/29/17 had shown LVEF of 35-40%, normal left ventricular size with borderline concentric hypertrophy, septal wall motion abnormality believed to be related to ventricular pressure overload, but hypokinesis of other james, moderately dilated L atrium with doppler evidence of an impairment of the LV diastolic function and significantly elevated mean L atrial pressure, mildly dilated and hypokinetic R ventricle with doppler evidence of severe pulmonary HTN, moderately dilated R atrium and dilated IVC with reduced respiratory collapse in keeping with an elevated central venous pressure/R heart failure, mild-moderate calcific aortic stenosis with mild insufficiency, severe mitral annular calcification without significant LV inflow tract obstruction, but moderately severe to severe insufficiency. CXR today showed heart to be mildly enlarged and there were some signs of fluid overload that were noticeable on the CXR film subtly. Patient had dialysis yesterday as per Nephrology who is managing his fluid status. Appreciate Nephrology input. (6) End stage renal disease on dialysis Status: Chronic Problem Specific Plan: Consult Specialist (Nephrology) Problem Text: 04/21/18: Last HD was 04/19/18. Going for HD today. Continue management as per Nephro. 04/20/18: Last HD was yesterday, 04/19/18. Had 1500 mL fluid removal. Continue management as per Nephrology. Appreciate recommendations. 04/17/18: Continue Nephrology recommendations. Appreciate input. 04/16/18: Patient's fluid status was likely decompensated as he has not had dialysis when he was due on 04/14/18 until later today on 04/16/18. Nephrology consulted for management and HD tx. Appreciate their help. (7) AV graft malfunction Status: Chronic Problem Text: 04/21/18: Got in touch with Dr. Corral yesterday who stated he did see the patient and stated that his L arm AV graft needs to be removed. If patient is still in the hospital, he will do the surgery this or Thursday. If not, then he can bring him back as an outpatient. It is nonurgent surgery. 04/20/18: Dr. Corral had confirmed with me that he was going to see the patient yesterday, however, I am not sure if he did or if he is planning to see the patient today. I will contact him again today to follow up. 04/17/18: Have consulted Dr. Ben Corral of Vascular Surgery who will gladly see the patient tomorrow AM to evaluate LUE AV graft for possible infection and possible surgery for excision. Appreciate his help very much. 04/16/18: Apparently, has had a L AV nonfunctioning AV graft for a while. I will try to speak to Dr. Corral of Vascular Surgery to see if he is willing to come check out the graft to see if he believes it could be infected. This is a possible source of patient's infection as Dr. Bass had wrote in his consult note. May need excision. (8) AV graft thrombosis Status: Chronic Problem Text: 04/16/18: Has nonfunctioning LUE AV graft. (9) Anemia in chronic kidney disease Status: Chronic Problem Text: 04/21/18: Hgb 11.5 today and stable. Continue to monitor CBC. 04/20/18: Patient initially refused labs this AM and they seem to be pending now. 04/17/18: Stable with Hgb at 10.6 (L) today. Continue to monitor CBC. 04/16/18: Stable and at baseline. Hgb was 10.5 (L) and MCV was 106.6 (H). (10) Diabetes mellitus type 2 in obese Status: Chronic Problem Text: 04/21/18: FSBS 176 and acceptable this morning. Continue ISS at and [facility]HS. Monitor oral intake and encourage PO intake/hydration. 04/20/18: FSBS acceptable at 182 this morning. Continue ISS at and [facility]. Monitor oral intake and encourage PO intake/hydration. 04/17/18: Serum glucose still WNL at 97. FS only slightly elevated today at 155 (H) at 11:59 and 147 (H) at 16:55. Continue with current regimen with ISS at and [facility]. Will hold off on the detemir for now. Patient still not taking in much PO yet. 04/16/18: Serum glucose was WNL at 99. Patient was placed on detemir on admission, which was discontinued as patient is having poor oral intake at this time. Will just leave ISS coverage at and [facility]. Monitor FSBS for now. Will adjust therapy as needed. (11) Coronary artery disease Status: Chronic Problem Text: 04/16/18: Continue atorvastatin 20 mg QHS, plavix 75 mg daily. (12) Constipation Status: Acute Problem Text: 04/21/18: Had 2 BMs yesterday and 1 today. Continue bowel regimen. 04/20/18: Had 3 BMs yesterday. Continue bowel regimen. 04/17/18: Had 2 BMs today. Continue bowel regimen as below. 04/16/18: Has been placed on bowel regimen of dulcolax suppository 10 mg daily NM PRN constipation and colace 10 mg PO daily which should help. Will monitor I/Os. (13) Gout Status: Chronic Problem Text: 04/16/18: Continue uloric 40 mg Q2D PO. (14) GERD (gastroesophageal reflux disease) Status: Chronic Problem Text: 04/16/18: Continue pantoprazole 40 mg PO daily. (15) Diabetic neuropathy Status: Chronic Problem Text: 04/16/18: Home medications gabapentin and [place] were held on admission due to possible concern of sedation on presentation. Still on acetaminophen 650 mg q4h PRN PO pain/fever. So far, patient denies any complaints of pain anywhere. Though, he does not seem at this baseline mental status. (16) Acute on chronic respiratory failure with hypoxia Status: Resolved Response to Treatment: Improving Problem Text: 04/20/18: No longer hypoxic. Probably resolved around 04/19/18. Continue supportive care with duonebs, solumedrol 40 mg IV q12h, and sup plemental O2 therapy to keep sats between 88-92%. Continue zosyn and vanc for now. One set of blood cx showed staph epidermidis. The other blood cx were (-) x 72 hours. Will speak to attending physician regarding the need for zosyn. 04/17/18: Likely secondary to RSV. Continue supportive care, duonebs q4h PRN, prednisone 5 mg daily, supplemental O2 therapy. On 2 liters nasal cannula. Has not desaturated overnight. Will obtain sputum cx. Continue to tx with empiric antibiotics for possible bacterial source of infection: zosyn and vancomycin as mentioned below. Awaiting blood cx which have been negative thus far. 04/16/18: Patient admitted for acute hypoxic respiratory failure with COPD exacerbation likely secondary to RSV. Continue supplemental O2 therapy (chronically on 2 liters O2 for hx of hypoxia/COPD), duonebs tx q4h PRN, prednisone 5 mg daily. Continue to monitor respiratory status. Continue supportive care to treat RSV, but still look for other sources of infection with blood cx, culture of permacath R IJ catheter site and/or AV graft. Patient was started on vancomycin 750 mg IV with HD likely for coverage of possible bacterial infection/MRSA bacteremia source of infection causing patient's close to septic-like picture. Have also added zosyn 2.25 gm q12h IV with 0.75 g supplement with HD for broad spectrum coverage for bacterial source of infection. Dr. Bass had mentioned in his consult note that he was going to order a Vascular Surgery Consult for assessment of the LUE failed AV graft site that could be infected for possible excision of that graft. However, I don't believe this was done. I will contact Vascular Surgery (probably Dr. Corral) and see if he is willing to see and evaluate the patient. (17) COPD with acute exacerbation Status: Resolved Response to Treatment: Improving Problem Text: 04/21/18: Will switch IV solumedrol 40 mg q12h to PO prednisone. 04/20/18: Probably resolved around 04/19/18. Continue to tx chronic COPD with duonebs tx, O2 therapy to keep sats between 88-92%, and IV solumedrol 40 mg q12h. Will plan to start to taper tomorrow and switch to PO prednisone. 04/17/18: Continue as per tx outlined above. 04/16/18: Continue tx as outlined above. Plan/VTE VTE Prophylaxis Ordered?: Yes (heparin 5000 units q12h SC) Disposition Will probably transfer from PCU to Med/Surg today. Probably does not need telemetry. Has been in sinus rhythm. Pending vascular surgery with Dr. Corral for L AV graft removal. Pending clinical improvement. VS, I&O, 24H, Fishbone Vital Signs/I&O Vital Signs Date Time Temp Pulse Resp B/P (MAP) Pulse Ox O2 Delivery O2 Flow Rate FiO2 04/21/18 04:00 2.0 04/21/18 02:45 81 177/94 (121) High Flow Cannula 04/21/18 00:00 96.3 18 100 I&O- Last 24 Hours up to 6 AM 04/21/18 06:00 Intake Total 530 ml Output Total 0 ml Balance 530 ml Laboratory Data 24H LABS Laboratory Tests 2 04/20/18 08:28: Immature Granulocyte % (Auto) , Nucleated Red Blood Cells % (auto) 1.0H, Neutrophils 83H, Band Neutrophils 5, Lymphocytes (Manual) 8L, Atypical Lymphocytes 4, Platelet Estimate NORMAL, Poikilocytosis 2+, Macrocytosis 2+, Ovalocytes 1+, Acanthocytes 1+, Blood Urea Nitrogen 15#, Creatinine 3.97H, Sodium Level 136, Potassium Level 3.9, Chloride Level 100, Carbon Dioxide Level 23, Anion Gap 13, Glomerular Filtration Rate 15.5L, Calcium Level 8.6L, Phosphorus Level 1.5#L, C-Reactive Protein, Quantitative 5.90H, Albumin 2.5L 04/20/18 12:21: Bedside Glucose (Misc Panel) 209H 04/20/18 17:41: Bedside Glucose (Misc Panel) 184H 04/20/18 19:48: Bedside Glucose (Misc Panel) 176H 04/21/18 05:16: Immature Granulocyte % (Auto) , Nucleated Red Blood Cells % (auto) 1.4H, Neutrophils 83H, Band Neutrophils 1, Lymphocytes (Manual) 9L, Monocytes (Manual) 4, Myelocytes 2H, Atypical Lymphocytes 1, Platelet Estimate NORMAL, Anisocytosis 1+, Macrocytosis 2+, Ovalocytes 1+, Blood Urea Nitrogen 23#H, Creatinine 5.31H, Sodium Level 138, Potassium Level 4.0, Chloride Level 104, Carbon Dioxide Level 26, Anion Gap 8, Glomerular Filtration Rate 11.1L, Calcium Level 8.7L, Phosphorus Level 1.1#L, Albumin 2.4L, Random Vancomycin Level 24.2 CBC/BMP Laboratory Tests 04/20/18 08:28 Red Blood Count 3.59 L, Mean Corpuscular Volume 104.2 H, Mean Corpuscular Hemoglobin 31.8, Mean Corpuscular Hemoglobin Concent 30.5 L, Red Cell Distribution Width 14.8 H, Anion Gap 13 04/21/18 05:16 Red Blood Count 3.64 L, Mean Corpuscular Volume 104.4 H, Mean Corpuscular Hemoglobin 31.6, Mean Corpuscular Hemoglobin Concent 30.3 L, Red Cell Distribution Width 15.0 H, Anion Gap 8 Microbiology Microbiology 04/16/18 Blood Culture - Preliminary, Resulted No Growth after 72 hours. All specime... 04/16/18 Blood Culture - Final, Complete Staphylococcus Epidermidis GME ATTESTATION GME ATTESTATION My faculty preceptor for this patient encounter was Dr. Jonathan Friend, and was physically present during the encounter and was fully available. All aspects of the patient interview, examination, medical decision making process, and medical care plan development were reviewed and approved by the faculty preceptor. The faculty preceptor is aware and concurs with the plan as stated in the body of this note and will attest to such by his/her cosignature. MAKENZIE PHAM DO Apr 21, 2018 08:24
[2018-04-21 08:28] VITALS: BP 177/100
[2018-04-21] MEDS: predniSONE 50 MG TAB PO SCH ×2 (09:00→20:28)
[2018-04-21] MEDS ORDERED: HEPARIN 1,000 UNITS/ML 10ML VIAL (FOR RADIOLOGY& DIALYSIS ONLY) IV ONE (12:00)
[2018-04-21] MEDS ORDERED: HEPARIN 1,000 UNITS/ML 10ML VIAL (FOR RADIOLOGY& DIALYSIS ONLY) XX ONE (12:00)
[2018-04-21 13:30] VITALS: BP 160/98
[2018-04-21] MEDS ORDERED: VANCOMYCIN HCL 750 MG, VIAL MATE ADAPTER 1 EACH in D5W 250 ML IV SCH (13:45)
[2018-04-21 16:00] VITALS: BP 170/88
[2018-04-21] MEDS: **VANCO AFTER HD** MISC XX SCH (16:00)
[2018-04-21] MEDS ORDERED: VANCOMYCIN HCL 500 MG in D5W MINI-BAG PLUS 100 ML IV SCH (16:00)
[2018-04-21] MEDS ORDERED: fentaNYL 100 MCG/2 ML INJECTION (J3010) As Ordered ONE (18:42)
[2018-04-21] MEDS ORDERED: MIDAZOLAM INJ 2 MG/2 ML VIAL (J2250) As Ordered ONE (18:42)
[2018-04-21] MEDS ORDERED: PROPOFOL 200 MG/20 ML VIAL As Ordered ONE (18:42)
[2018-04-21] MEDS ORDERED: LIDOCAINE 1% SDV INJ 30 ML VIAL As Ordered ONE (19:00)
[2018-04-21] MEDS ORDERED: BUPIVACAINE HCL 0.5% 30 ML VIAL As Ordered ONE (19:00)
[2018-04-21 20:00] VITALS: BP 141/87
[2018-04-21] MEDS: ATORVASTATIN 20 MG TAB PO SCH (20:28)
--- NOTE | 2018-04-21 22:56 | IPN ---
DATE: 04/21/2018 Mr. Rodriguez seen during hemodialysis this morning on his bedside. He is feeling better and is currently resting comfortably. He has not been eating much. There is no fever or chills. There is no dyspnea or chest pain. He does have chronic hypoxemia which is essentially unchanged and he remains on 2 liters oxygen. PHYSICAL EXAMINATION Temperature 97.6 degrees Fahrenheit, heart rate 80 per minute and respiratory rate 18 per minute. Blood pressure 160/98 mmHg and oxygen saturation 100% on 2 liters oxygen. Neck is supple and without abnormal jugular venous distention (JVD) or thyroid enlargement. Heart: Sounds are irregular in rhythm and lungs have bilateral scattered rhonchi and expiratory wheezing. Abdomen: Soft and nontender and bowel sounds are normal. Extremities have no cyanosis or clubbing. Today's labs show WBC count 8.1, hemoglobin 7.5 and hematocrit 38.0. Sodium 138, potassium 4.0, CO2 26, BUN 23 and creatinine 5.31. Glucose 185 and calcium 8.7. Phosphorus level is down to 1.1. PROBLEMS: 1. End-stage renal disease. The patient is being dialyzed today and he is tolerating his dialysis treatment very well. His volume status is reasonably well-compensated and electrolytes are stable. 2. Shortness of breath. His volume status is very well compensated now and we will remove about 1.5 liters of fluid with dialysis today as tolerated. 3. Pneumonia. The patient remains on Zosyn and vancomycin. He probably also has an infected graft in the left arm. Dr. Corral has been requested to see him for possible removal and excision of the infected graft. 4. Hypophosphatemia. This is related to poor oral intake and phosphate binder has already been stopped. We will continue to encourage him for eating better, which is likely to improve his hypophosphatemia.
[2018-04-22] MEDS: HumaLOG INSULIN (NovoLOG) PER UNIT SC SCH ×4 (07:59→20:12)
[2018-04-22 08:00] VITALS: BP 160/80
[2018-04-22] MEDS: IPRATROPIUM 0.5MG/ALBUTEROL 2.5MG INH SOL UD 3ML (DUONEB)(J7620) NEB SCH ×4 (08:00→19:45)
[2018-04-22] MEDS: PIPERACILLIN/TAZOBACTAM SOD 2.25 GM in D5W MINI-BAG PLUS 50 ML IV SCH ×2 (08:28→19:54)
[2018-04-22 08:35] LABS: HEMATOCRIT 39.2 % (42.0-52.0); HEMOGLOBIN 11.9 g/dl (13.5-17.5); MEAN CORPUSCULAR HEMOGLOBIN 31.5 pg (27.0-33.0); MEAN CORPUSCULAR HGB CONC 30.4 g/dl (32.0-36.5); MEAN CORPUSCULAR VOLUME 103.7 fl (80.0-96.0); PLATELET COUNT, AUTOMATED 256 10^3/uL (150-450); RED BLOOD COUNT 3.78 10^6/uL (4.30-6.10); WHITE BLOOD COUNT 10.2 10^3/uL (4.0-10.0)
--- NOTE | 2018-04-22 08:41 | IPNPDOC ---
Subjective Date Seen The patient was seen on 04/22/18. Subjective Chief Complaint/HPI Patient seen and partially examined at bedside. Is still very resistant to having me examine him, but I was able to listen to heart, lungs, and evaluate lower extremities after nursing staff encouraged him. Was not able to see rivers rgical site of LUE. Apparently, he had excision of his LUE AV graft last night and is post-operative day #1. Is it hard to obtain any ROS from patient as he is verbally noncooperative to give accurate information. General: Reports: ROS Unobtainable Objective Physical Examination General Exam: Positive: Alert, No Acute Distress Eye Exam: Negative: Sclera icteric ENT Exam: Positive: Atraumatic Neck Exam: Positive: Supple; Negative: JVD Chest Exam: Positive: Clear to auscultation (more clear to auscultation today than prior in anterior lung scott bilaterally. very limited exam however. ), Diminished; Negative: Normal air movement, Rales Heart Exam: Positive: Rate Normal, Regular Rhythm, Normal S1, Normal S2; Negative: Gallops, Murmurs Telemetry: Positive: Sinus, Other Telemetry: (sinus rhythm with no tachycardia overnight) Abdomen Exam: Positive: Normal bowel sounds, Soft; Negative: Tenderness, Mass Extremity Exam: Positive: Other (LUE surgical site covered with bandage and patient unwilling to allow examination); Negative: Edema (no significant lower extremity edema appreciated bilaterally.) Skin Exam: Positive: Other skin issue (bruising of upper extremities in scattered areas noted ); Negative: Rash Neuro Exam: Positive: Normal Speech Psych Exam: Positive: Mental status NL, Mood NL (cantankerous which is apparently baseline according to nursing staff) Assessment /Plan Problems (1) AV graft malfunction Status: Resolved Response to Treatment: Stable Problem Text: 04/22/18: Status-post LUE AV Graft Excision by Dr. Corral last evening POD #1. Seems to be doing well and is medically stable. Patient's been afebrile overnight. Does not c/o SOB according to nursing staff. Labs not available this morning, but CBC is ordered. 04/21/18: Plan is for the graft to be excised at the appropriate time. There are no progress notes from Dr. Corral to review. Patient remains on Vancomycin and Zoysn. Primary care team has further questions: 1. will graft excision be perfo rmed during hospitalization? 2. Do abx remain on board until graft excision? 04/20/18: Dr. Corral had confirmed with me that he was going to see the patient yesterday, however, I am not sure if he did or if he is planning to see the patient today. I will contact him again today to follow up. 04/17/18: Have consulted Dr. Ben Corral of Vascular Surgery who will gladly see the patient tomorrow AM to evaluate LUE AV graft for possible infection and possible surgery for excision. Appreciate his help very much. 04/16/18: Apparently, has had a L AV nonfunctioning AV graft for a while. I will try to speak to Dr. Corral of Vascular Surgery to see if he is willing to come check out the graft to see if he believes it could be infected. This is a possible source of patient's infection as Dr. Bass had wrote in his consult note. May need excision. (2) AV graft thrombosis Status: Chronic Problem Text: 04/16/18: Has nonfunctioning LUE AV graft. (3) Pneumonia Status: Acute Problem Text: 04/22/18: Lungs sound more clear today. Afebrile. CBC not available. Still seems to have cough. Continue vancomycin and zosyn for now. Day #7 vancomycin and Day #7 of zosyn. Also on prednisone 50 mg PO BID. Have tapered this down to 40 mg prednisone PO BID. (4) RSV (respiratory syncytial virus infection) Status: Acute Problem Text: 04/22/18: Continue supportive care. Practice isolation precautions. 04/21/18: Continue supportive care. 04/20/18: Continue supportive care. 04/16/18: Continue supportive care and tx as per assessment #1. (5) Refusal of care by patient Status: Acute Problem Text: 04/22/18: Patient was still not allowing me to examine him today until nursing staff spoke to him. He is very resistant to cooperating with me. Will keep trying to counselor nurses' association and educate him with compassion to help care for him. 04/21/18: Patient appeared a little more agreeable today. He was taking his medications as I entered the room, allowed for partial assessment and asked me to return after his dialysis 04/20/18: As per HPI, patient refusing labs, vital signs, and medications. Dr. Emmanuel and I counseled him this morning about the consequences of refusing care. He demonstrated capacity of understanding this to us. Still wishes to do dialysis. We had encouraged him to take his medications and to allow nursing staff to work with him to help him to get better. We encouraged him to decide what he really wanted us to do so we could respect his wishes. We informed him that Dr. Corral would be coming to see him to check his LUE AV Fistula graft to assess this for infection and if it needed to be removed. He expressed understanding. (6) Fluid overload Status: Acute Problem Specific Plan: Consult Specialist (Nephrology) Problem Text: 04/22/18: Had hemodialysis yesterday, 04/21/18, and had 1500 mL fluid removed. Euvolemic today. Management per Nephrology. 04/21/18: Patient appeared euvolemic today. Dialysis today. Management per nephrology 04/20/18: Had dialysis yesterday, 04/19/18, with 1500 mL fluid removal. Does not appear SOB upon inspection. Wt: 77.8 kg today and 97.6 kg yesterday. Rest of management as per Nephrology. Continue to monitor I/O, clinical status. Continue management as per Nephrology. 04/17/18: Had net negative fluid removed yesterday of (-)845 mL. Intake was 655 mL and output was 1500 mL via HD. Had 1 incontinent void yesterday. Weight was 84.09 kg. Hard to appreciate crackles on anterior lung scott as I could not auscultate posterior lung scott today. Patient denied SOB to me in the morning, however, I do not know how accurate his "head nodding" was. Will continue monitor I/Os, clinical status. Rest of management as per Nephrology with fluid management and hemodialysis. 04/16/18: Patient has a hx of CHF--seems to be systolic as most recent echo showed reduced EF. Most recent Echocardiogram on 04/29/17 had shown LVEF of 35-40%, normal left ventricular size with borderline concentric hypertrophy, septal wall motion abnormality believed to be related to ventricular pressure overload, but hypokinesis of other james, moderately dilated L atrium with doppler evidence of an impairment of the LV diastolic function and significantly elevated mean L atrial pressure, mildly dilated and hypokinetic R ventricle with doppler evidence of severe pulmonary HTN, moderately dilated R atrium and dilated IVC with reduced respiratory collapse in keeping with an elevated central venous pressure/R heart failure, mild-moderate calcific aortic stenosis with mild insufficiency, severe mitral annular calcification without significant LV inflow tract obstruction, but moderately severe to severe insufficiency. CXR today showed heart to be mildly enlarged and there were some signs of fluid overload that were noticeable on the CXR film subtly. Patient had dialysis yesterday as per Nephrology who is managing his fluid status. Appreciate Nephrology input. (7) End stage renal disease on dialysis Status: Chronic Problem Specific Plan: Consult Specialist (Nephrology) Problem Text: 04/22/18: Plan as per assessment above. No BMP labs available as of yet. However, they are ordered. 04/21/18: As above 04/20/18: Last HD was yesterday, 04/19/18. Had 1500 mL fluid removal. Continue management as per Nephrology. Appreciate recommendations. 04/17/18: Continue Nephrology recommendations. Appreciate input. 04/16/18: Patient's fluid status was likely decompensated as he has not had dialysis when he was due on 04/14/18 until later today on 04/16/18. Nephrology consulted for management and HD tx. Appreciate their help. (8) Anemia in chronic kidney disease Status: Chronic Problem Text: 04/22/18: ESRD, CBC not available this morning. 04/21/18: ESRD, Hgb 11.5 04/20/18: Patient initially refused labs this AM and they seem to be pending now. 04/17/18: Stable with Hgb at 10.6 (L) today. Continue to monitor CBC. 04/16/18: Stable and at baseline. Hgb was 10.5 (L) and MCV was 106.6 (H). (9) Diabetes mellitus type 2 in obese Status: Chronic Problem Text: 04/22/18: FSBS acceptable at 123 this morning. Continue ISS at AC and QHS. Monitor oral intake and encourage PO intake/hydration. On 2 gram sodium diet after AV graft excision surgery. 04/20/18: FSBS acceptable at 182 this morning. Continue ISS at AC and QHS. Monitor oral intake and encourage PO intake/hydration. 04/17/18: Serum glucose still WNL at 97. FS only slightly elevated today at 155 (H) at 11:59 and 147 (H) at 16:55. Continue with current regimen with ISS at and QHS. Will hold off on the detemir for now. Patient still not taking in much PO yet. 04/16/18: Serum glucose was WNL at 99. Patient was placed on detemir on admission, which was discontinued as patient is having poor oral intake at this time. Will just leave ISS coverage at and Q. Monitor FSBS for now. Will adjust therapy as needed. (10) Acute on chronic respiratory failure with hypoxia Status: Resolved Response to Treatment: Improving Problem Text: 04/20/18: No longer hypoxic. Probably resolved around 04/19/18. Continue supportive care with duonebs, solumedrol 40 mg IV q12h, and supplemental O2 therapy to keep sats between 88-92%. Continue zosyn and vanc for now. One set of blood cx showed staph epidermidis. The other blood cx were (-) x 72 hours. Will speak to attending physician regarding the need for zosyn. 04/17/18: Likely secondary to RSV. Continue supportive care, duonebs q4h PRN, prednisone 5 mg daily, supplemental O2 therapy. On 2 liters nasal cannula. Has not desaturated overnight. Will obtain sputum cx. Continue to tx with empiric antibiotics for possible bacterial source of infection: zosyn and vancomycin as mentioned below. Awaiting blood cx which have been negative thus far. 04/16/18: Patient admitted for acute hypoxic respiratory failure with COPD exacerbation likely secondary to RSV. Continue supplemental O2 therapy (chronically on 2 liters O2 for hx of hypoxia/COPD), duonebs tx q4h PRN, prednisone 5 mg daily. Continue to monitor respiratory status. Continue supportive care to treat RSV, but still look for other sources of infection with blood cx, culture of permacath R IJ catheter site and/or AV graft. Patient was started on vancomycin 750 mg IV with HD likely for coverage of possible bacterial infection/MRSA bacteremia source of infection causing patient's close to septic-like picture. Have also added zosyn 2.25 gm q12h IV with 0.75 g supplement with HD for broad spectrum coverage for bacterial source of infection. Dr. Bass had mentioned in his consult note that he was going to order a Vascular Surgery Consult for assessment of the LUE failed AV graft site that could be infected for possible excision of that graft. However, I don't believe this was done. I will contact Vascular Surgery (probably Dr. Corral) and see if he is willing to see and evaluate the patient. (11) COPD with acute exacerbation Status: Resolved Response to Treatment: Improving Problem Text: 04/20/18: Probably resolved around 04/19/18. Continue to tx chronic COPD with duonebs tx, O2 therapy to keep sats between 88-92%, and IV solumedrol 40 mg q12h. Will plan to start to taper tomorrow and switch to PO prednisone. 04/17/18: Continue as per tx outlined above. 04/16/18: Continue tx as outlined above. (12) Coronary artery disease Status: Chronic Problem Text: 04/16/18: Continue atorvastatin 20 mg QHS, plavix 75 mg daily. (13) Gout Status: Chronic Problem Text: 04/16/18: Continue uloric 40 mg Q2D PO. (14) GERD (gastroesophageal reflux disease) Status: Chronic Problem Text: 04/16/18: Continue pantoprazole 40 mg PO daily. (15) Diabetic neuropathy Status: Chronic Problem Text: 04/16/18: Home medications gabapentin and [place] were held on admission due to possible concern of sedation on presentation. Still on a cetaminophen 650 mg q4h PRN PO pain/fever. So far, patient denies any complaints of pain anywhere. Though, he does not seem at this baseline mental status. (16) Constipation Status: Resolved Problem Text: 04/20/18: Had 3 BMs yesterday. Continue bowel regimen. 04/17/18: Had 2 BMs today. Continue bowel regimen as below. 04/16/18: Has been placed on bowel regimen of dulcolax suppository 10 mg daily NC PRN constipation and colace 10 mg PO daily which should help. Will monitor I/Os. Plan/VTE VTE Prophylaxis Ordered?: Yes (heparin 5000 units q12h SC) Disposition Pending clinical improvement. May be dischargeable in 1-2 days back to [facility]. VS, I&O, 24H, Fishbone Vital Signs/I&O Vital Signs Date Time Temp Pulse Resp B/P (MAP) Pulse Ox O2 Delivery O2 Flow Rate FiO2 04/22/18 07:34 2.0 04/22/18 03:53 98.6 80 18 96 High Flow Cannula 04/21/18 20:28 141/87 I&O- Last 24 Hours up to 6 AM 04/22/18 06:00 Intake Total 480 ml Output Total 1520 ml Balance -1040 ml Laboratory Data 24H LABS Laboratory Tests 2 04/21/18 17:13: Bedside Glucose (Misc Panel) 141H 04/21/18 20:16: Bedside Glucose (Misc Panel) 117H 04/22/18 07:29: Bedside Glucose (Misc Panel) 123H Microbiology Microbiology 04/16/18 Blood Culture - Final, Complete NO GROWTH AFTER 5 DAYS 04/16/18 Blood Culture - Final, Complete Staphylococcus Epidermidis GME ATTESTATION GME ATTESTATION My faculty preceptor for this patient encounter was Dr. Hari Nolan, and was physically present during the encounter and was fully available. All aspects of the patient interview, examination, medical decision making process, and medical care plan development were reviewed and approved by the faculty preceptor. The faculty preceptor is aware and concurs with the plan as stated in the body of this note and will attest to such by his/her cosignature. MAKENZIE PHAM DO Apr 22, 2018 08:40
[2018-04-22 08:55] LABS: LYMPHOCYTES 28 % (16-52); METAMYELOCYTES 2 % (0-0); MONOCYTES 9 % (0-8); MYELOCYTES 3 % (0-0); NEUTROPHILS 57 % (35-75); NUCLEATED RED BLOOD CELL 1 % (0-0)
[2018-04-22 08:56] LABS: ANISOCYTOSIS 1+; PLATELET ESTIMATE NORMAL (NORMAL)
[2018-04-22 09:07] LABS: ALBUMIN 2.4 GM/DL (3.2-5.2); CALCIUM LEVEL 8.9 MG/DL (8.8-10.2); CREATININE FOR GFR 3.6 MG/DL (0.70-1.30); GLOMERULAR FILTRATION RATE 17.4 (>35); PHOSPHORUS LEVEL 1.2 MG/DL (2.5-4.9); POTASSIUM SERUM 3.4 MEQ/L (3.5-5.1)
[2018-04-22] MEDS: predniSONE 20 MG TAB PO SCH ×2 (10:18→20:04)
[2018-04-22] MEDS: HEPARIN SOD (PORCINE) 5000 UNITS/ML VIAL SC SCH ×2 (10:18→20:09)
[2018-04-22] MEDS: METOPROLOL TART 25 MG TABLET PO SCH ×2 (10:19→20:05)
[2018-04-22] MEDS: CLOPIDOGREL 75 MG TAB PO SCH (10:21)
[2018-04-22] MEDS: FEBUXOSTAT 40 MG TABLET (ULORIC) PO SCH (10:23)
[2018-04-22] MEDS: PANTOPRAZOLE 40MG TAB (PROTONIX) PO SCH (10:24)
[2018-04-22] MEDS: DOCUSATE SODIUM 100 MG CAP PO SCH (10:24)
[2018-04-22 12:00] VITALS: BP 120/58
[2018-04-22] MEDS: NS 1,000 ML IV SCH (13:14)
--- NOTE | 2018-04-22 13:41 | IPN ---
DATE: 04/22/2018 Mr. Rodriguez is seen this morning on his bedside. He is awake and able to answer questions. He seems reasonably well oriented and without any acute distress. He was dialyzed yesterday which he tolerated well. PHYSICAL EXAMINATION: Temperature 97.6 degrees Fahrenheit, heart rate 96 per minute and respiratory rate 22 per minute. Blood pressure 160/80 mmHg and oxygen saturation 95% on 2 liters oxygen. His head is atraumatic. Neck is supple and without jugular venous distention (JVD) or thyroid enlargement. Perma-Cath is present in right internal jugular vein without any signs of infection. His heart sounds are irregular in rhythm and lungs with slightly diminished breath sounds at bases. Abdomen is soft and nontender. Bowel sounds are normal. Extremities have no cyanosis or clubbing. Neurologically, he seems to be at his baseline mentation. Today's labs show WBC count 10.2, hemoglobin 11.9 and hematocrit 39.2. Platelets 256. Sodium 138, potassium 3.4, CO2 27, BUN 14 and creatinine 3.60. PROBLEMS: 1. End-stage renal disease. The patient was dialyzed yesterday and we will plan on dialyzing him again tomorrow or Thursday depending upon his condition. 2. Hypokalemia. This is mild and related to dialysis done yesterday. His oral intake has been poor, due to which his phosphorus and potassium levels have been low. We will not replace any potassium and recheck his electrolytes tomorrow. 3. Hypophosphatemia. Again this is nutritional as his oral intake has been poor. His phosphate supplement has already been stopped. The patient is being encouraged to eat regular and recheck his renal profile tomorrow. 4. Dyspnea and pneumonia. The patient seems to be improved and doing much better. Continue with nebulizers and antibiotics. I would suggest to cut down his prednisone dose relatively quickly. 5. Infected AV graft in left arm. The patient underwent removal of infected AV graft from his left arm yesterday. His blood cultures were positive for Staphylococcus epidermidis, most likely contaminant or from the graft site. The patient has been on Zosyn and vancomycin.
[2018-04-22 16:00] VITALS: BP 140/80
[2018-04-22] MEDS: **VANCO AFTER HD** MISC XX SCH (16:00)
[2018-04-22 20:00] VITALS: BP 135/71
[2018-04-22] MEDS: ATORVASTATIN 20 MG TAB PO SCH (20:04)
[2018-04-23] VITALS: BP 136/70
[2018-04-23 04:00] VITALS: BP 162/88
[2018-04-23] MEDS: HumaLOG INSULIN (NovoLOG) PER UNIT SC SCH (07:30)
[2018-04-23] MEDS: IPRATROPIUM 0.5MG/ALBUTEROL 2.5MG INH SOL UD 3ML (DUONEB)(J7620) NEB SCH ×2 (07:44→11:11)
[2018-04-23 08:06] VITALS: BP 150/88
[2018-04-23] MEDS ORDERED: predniSONE 10 MG TAB PO SCH (09:00)
[2018-04-23] MEDS ORDERED: PRED10TA2 PO (09:46)
[2018-04-23] MEDS: PIPERACILLIN/TAZOBACTAM SOD 2.25 GM in D5W MINI-BAG PLUS 50 ML IV SCH (09:47)
[2018-04-23] MEDS: PANTOPRAZOLE 40MG TAB (PROTONIX) PO SCH (09:47)
[2018-04-23 09:48] VITALS: BP 150/88
[2018-04-23] MEDS: DOCUSATE SODIUM 100 MG CAP PO SCH (09:48)
[2018-04-23] MEDS: CLOPIDOGREL 75 MG TAB PO SCH (09:48)
[2018-04-23] MEDS: HEPARIN SOD (PORCINE) 5000 UNITS/ML VIAL SC SCH (09:48)
[2018-04-23] MEDS: METOPROLOL TART 25 MG TABLET PO SCH (09:48)
--- NOTE | 2018-04-24 09:40 | IPN ---
DATE OF SERVICE: 04/23/2018 SUBJECTIVE: The patient was seen and examined at the bedside today morning. He was getting nebulizations when I saw him today morning. He is afebrile, hemodynamically stable. The patient was getting ready to be discharged today, and he will get his hemodialysis as outpatient. OBJECTIVE: Vital signs: Temperature is 97.2 degrees Fahrenheit, blood pressure 150/88, pulse is 80, respiratory rate of 22, saturating 92% on nasal cannula at 2 liters. Intake and output: Urine output is not recorded. Weight in the bed scale is 77.1 kg. PHYSICAL EXAMINATION: General: The patient is awake, alert, oriented times two, lying in bed, getting nebulization done. Head and neck examination: Extraocular muscles intact. Pupils equally round and reactive to light. Mucous membranes are moist. Neck is supple. She has a right internal jugular (vein) (IJ) tunneled hemodialysis catheter. Cardiovascular: S1, S2, regular rate. Trace edema of the bilateral lower extremities. Respiratory: Decreased breath sounds at the bases with mild expiratory rhonchi at the bases. Abdomen: Is soft, obese. Positive bowel sounds. 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 Central nervous system (CIVIL ESTIMATOR): No focal deficit. Power is 5/5 in bilateral upper extremities. AV access: The patient's left upper arm AV graft has been excised, and there is a dressing on the previous graft site. LABORATORY REVIEW: CBC showed a WBC of 10.2, hemoglobin 11.9, platelets are 256. BMP showed sodium 138, potassium 3.4, chloride 103, bicarbonate 27, BUN 14, creatinine is 3.6, phosphorus 1.2, albumin is 2.4. CURRENT INPATIENT MEDICATIONS: The patient's medications were all reviewed by me. There is no change in the medications today as compared with yesterday. ASSESSMENT AND PLAN: 1. End-stage renal disease, on hemodialysis. The patient's regular dialysis days are Thursday, Thursday, Thursday. The patient is being discharged today. He will be dialyzed today in the afternoon. 2. Hypokalemia. The patient will be dialyzed with a 3K bath. Potassium level will stabilize. 3. Pneumonia and chronic obstructive pulmonary disease (COPD) exacerbation. The patient continues to be on antibiotics and nebulization. Steroids are being tapered down. He will be sent on oral antibiotics and steroids. 4. Infected left upper arm AV graft. The graft has been excised. The patient is currently on vancomycin and Zosyn.
--- NOTE | 2018-05-10 09:10 | RO ---
DATE OF PROCEDURE: 04/21/2018 PREOPERATIVE DIAGNOSES: End-stage renal disease. Exposed infected defunctionalized left upper arm arteriovenous graft. POSTOPERATIVE DIAGNOSES: End-stage renal disease. Exposed infected defunctionalized left upper arm arteriovenous graft. PROCEDURE: Removal of the defunctionalized upper extremity left arm arteriovenous infected graft. ATTENDING SURGEON: Dr. Jorje Corral REGIONAL ECONOMIST: Angie Benson PA-C INDICATION: The patient is a 82-year-old male with end-stage renal disease who dialyzes through a right internal jugular vein tunneled central venous catheter who had previously undergone placement of an arteriovenous graft in his left upper extremity which was ligated in the past and now there is a portion of the graft that is exposed through the skin which is draining purulent material with some cellulitis around the exposed graft. The patient will undergo removal of the infected graft. The procedure was described and explained to the patient in detail with this including drawing of pictures demonstrating the procedure and pertinent anatomy. Risks, benefits and alternative treatment options were discussed with the patient. Alternative treatment options included but were not limited to no intervention. Benefits included but were not limited to removal of infected graft and prevention of worsening infection and/or possible loss of limb or loss of life. Risks included but were not limited to infection, bleeding, possible need for further open surgical intervention, possible need for transfusion of blood products, adverse reaction to the prepping and draping materials, adverse reaction to the anesthesia and local anesthetic, cerebrovascular accident, myocardial infarction, pulmonary embolus, deep vein thrombosis (DVT), loss of limb, loss to life, poor outcome, poor satisfaction and poor results. Risks of not performing the procedure included but were not limited to continued infection and worsening infection in the left upper extremity with possible loss of limb and/or loss of life. The patient's questions were answered. The patient voices understanding and acceptance of these risks, benefits and alternative treatment options and consents to proceed. There were no promises or guarantees made to the patient regarding the procedure, result and/or outcome. ANESTHESIA: Local monitored anesthesia care (MAC). ESTIMATED BLOOD LOSS: 20 mL. IV FLUIDS: 100 mL. SPECIMENS: None. COMPLICATIONS: None. DRAINS: None. IMPLANTS: None. PROCEDURE: The patient was taken the operating room, placed supine on the operating room table and the left upper extremity was prepped and draped in a standard surgical fashion. A time out was then conducted by myself and the team members in the room confirming the correct patient, procedure and laterality. The skin overlying the graft proximal and distal to the exposed graft was anesthetized with 1% lidocaine mix of 0.5% Marcaine. An incision was then made overlying the graft above and below the exposed portion. The graft was sharply dissected free down to the ligated area proximally and the ligated portion of the graft distally and the graft was removed. There was no infection or purulent material noted surrounding the graft proximally or distally and only the exposed graft had shown previous signs of some purulent discharge. The remainder of the graft proximal and distal to the exposed graft was well incorporated with no signs of infection. The graft was removed after which the wound was irrigated and the incision closed loosely using afsaneh to approximate the skin and the leave large gaps between the area where the graft was exposed for appropriate drainage. Dressings were then applied. The patient tolerated the procedure well. All instrument, sponge, and needle counts were correct at the end of the case. There were no complications. Dr. Corral was present for and directed the entire case. The patient was transferred to the recovery room awake, alert, extubated and in stable condition. The procedure results and findings were discussed with the patient with all of his questions answered.
--- NOTE | 2018-05-17 22:10 | DS.PDOC ---
Discharge Summary General Date of Admission Apr 16, 2018 at 11:55 Date of Discharge 04/23/18 Primary Care Physician: Volodymyr Clark M.D. Attending Physician: Hari Nolan M.D. Discharge Summary Consults: Nephrology: Dr. Daisha Bass and Dr. Jayesh Bonilla Vascular Surgery: Dr. Ben Corral Discharge diagnosis: COPD with acute exacerbation Acute on chronic respiratory failure with hypoxia RSV Infection Fluid Overload Infected L upper arm AV graft AV Graft Thrombosis of LUE (nonfunctioning AV graft) AV Graft Malfunction status-post LUE AV Graft Excision by Dr. 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 He was found to have RSV on 04/14/18 and did not receive dialysis that day. Was sent from dialysis center straight to [facility] ED for evaluation as patient was reportedly not feeling good and was feeling SOB. Patient was examined by myself and Dr. Lynda Emmanuel on the morning of 04/16/18. He appeared very lethargic, had rhonchi in his lungs, and was not acting his usual self, was using accessory muscles to breathe, and his O2 saturation was 87% initially on 2 liters nasal cannula which was not his baseline. Patient was running fevers overnight. CXR from 04/14/18 had appeared a bit abnormal with possible R sided infiltrate and possible increased interstitial lung markings signifying fluid overload (especially since patient had not received dialysis on the 04/14/18 when he was supposed to). He also did not receive dialysis on 04/15/18. It was then decided to send patient to be sent to the ED on 04/16/18 for possible septic picture/symptoms, hypoxia, fluid overload evaluation and management. Patient did receive dialysis on 04/16/18. Dr. Daisha Bass was consulted and examined patient. In his consult note, it was reported that patient had an AV graft in the L arm which was clotted and had purulent drainage. A surgical consult was recommended for excision of the LUE malfunctional AV graft. Patient continued with dialysis throughout hospital stay with R IJ tunneled dialysis permacath. Patient was placed on IV antibiotics to treat possible sepsis secondary to infected LUE AV graft sight, possible pneum onia, and possible other infectious source. Zosyn IV was added for empiric coverage to vancomycin that was initially started on patient on day of admission. Please see my progress note from 04/16/18 for full details of patient's admission hx. Patient did have an elevated WBC of 10.9 (H) on admission and a neutrophilia of 78.9 (H). ABG had shown pH 7.310 (L)/pCO2 54.7 (H)/pO2 110.1 (H), BUN 31 (H), Cr 6.93 (H), GFR 8.2 (L), Lactic Acid 1.4 WNL, troponin I 0.09, TSH 2.170. Blood cx were taken and one came back (+) for staph epidermidis which may have been a contaminant or may have been a true infection at the LUE AV graft that was mal functional. CXR performed on 04/16/18 showed a mildly enlarged heart, thoracic aorta being calcific and tortuous, a prominent diffuse interstitial lung disease pattern mild in degree consistent with fibrosis unchanged. No focal infiltrate was seen. Throughout hospital stay, patient was dialyzed according to his schedule, followed by Nephrology, and treated with empiric IV antibiotic therapy. Was treated with supplemental O2 therapy, IV solumedrol transitioned to oral prednisone, nebulizer tx for SOB. He was monitored in the PCU and via cardiac monitoring. He at times refused physical examination, to have labs/vitals drawn, and to comply with medical care. However, he was counseled several times about the importance of complying with requests of the medical staff in order for him to receive the best care. Dr. Emmanuel and I touched on subject of making him [employer] and had a long discussion with patient. However, he was still interested in getting better and receiving dialysis. Stated he wanted to go home meaning " [facility]." Dr. Corral of Vascular Surgery was consulted who performed excision of LUE AV graft on 04/21/18. Patient tolerated the procedure well without any immediate or postoperative complications. On 04/23/18, patient was in medically and hemodynamically stable condition. His symptoms had improved. He was discharged back to the [facility]. Progress note on date of discharge: 04/23/18 Subjective: Patient seen and examined at bedside. Denies any acute complaints. Does not answer questions regarding ROS. Objective: Vitals at 0400: T 97.4 P 87 RR 20 BP 162/88 Pulse Ox: 91% on 2L high flow nasal cannula General: Patient awake, alert and oriented, verbal and able to answer questions, but noncooperative with answering them accurately. He does not appear to be in any acute distress. HEENT: NCAT. Sclera Nonicteric. Neck: Supple. No JVD. Heart: Regular rate and rhythm, normal S1-S2. No murmurs, rubs, clicks or gallops. Lungs: Clear to auscultation in anterior lung scott bilaterally from prior. No wheezes appreciated. Telemetry: Sinus rhythm Abdomen: Active bowel sounds, soft, nontender, no masses to palpation. Extremities: LUE surgical site covered with bandage and patient unwilling to allow examination. No significant LE edema bilaterally. Skin Exam: Ecchymoses of upper extremities in scattered areas noted as prior. No rashes seen. Neurological: Normal Speech. Psych Exam: Mental status normal, Mood normal. Cantankerous which appears to be his baseline according to staff. Labs: Last labs available prior to discharge were performed on 04/22/18: CBC: remarkable for WBC 10.2 (H), Hgb 11.9 (L), Hct 39.2 (L), MCV 103.7 (H), RDW 15.5 (H), Nucleated RBC % (auto) 1.9 (H), monocytes 9 (H), metamyelocytes 2 (H), myelocytes 3 (H), nucleated RBCs 1 (H), normal platelet estimate, 1 (+) anisocytosis, 1 (+) macrocytosis. BMP: Na 138, K 3.4 (L), CO2 27, anion gap 8, BUN 14, Cr 3.60 (H), GFR 17.4 (L), fasting glucose 139 (H), calcium 8.9, phosphorus 1.2 (L), albumin 2.4 (L). Assessment: COPD with acute exacerbation Acute on chronic respiratory failure with hypoxia RSV Infection Fluid Overload Infected L upper arm AV graft AV Graft Thrombosis of LUE (nonfunctioning AV graft) AV Graft Malfunction status-post LUE AV Graft Excision by Dr. Corral on 04/21/18 Pneumonia Refusal of care by patient Hypokalemia Hypophosphatemia Disposition: Back to [facility]. Follow-up: As prior to admission with PCP Dr. Volodymyr Clark and myself (Dr. Lawton) once a month *Needs to have dialysis today as per protocol. Needs Follow up with Dr. Corral Vascular Surgeon for post-op follow up. Follow up with Nephrology needed for ESRD/HD. Discontinue antibiotics today as he has received sufficient IV course. Will taper prednisone: 6 tabs QDX1D.Then,5 tabs QDx1D.4 tabs QDX1D.3 tabs QDX1D.2 tabs QDx1D.1 tab QDX1D.1/2tab QDX1D.Then,stop. Discontinue Phoslo due to hyperphosphatemia. Diet should be able to replenish phosphorus levels. Activity: Needs physical therapy and 2 max assist to get out of bed. Diet: 2 gram Na and 1500 mL fluid restriction/24 hr. Renal encouraged. Medications on discharge: Acetaminophen 650 mg PO q4h PRN pain or fever Acetaminophen 650 mg rectal q4h PRN pain or fever Brooklyn 5-325 mg 1 tablet PO 3 times a week : takes on Thursday, Thursday, and Thursday before dialysis at 1500 Albuterol/Ipratropium 0.5-2.5 (3) mg/3 mL 1 Isac inhaled q4h PRN for SOB Albuterol/Ipratropium 0.5-2.5 (3) mg/3 mL 1 Isac inhaled twice a day Atorvastatin 20 mg tablet PO daily at QHS Basaglar Kwikpen 100 Unit/Ml Injection: 10 Units subcutaneous daily at QHS Bisacodyl 10 mg Sup rectal daily PRN for constipation Clopidogrel 75 mg tablet PO daily takes at 1200 Docusate Sodium 100 mg Capsule PO daily Enema Disposable 1 Enema rectal daily PRN for constipation Ergocalciferol 30429 unit capsule PO every month the 1st of each month Febuxostat 40 mg tablet PO every 2 days takes at 1200 Gabapentin 300 mg capsule PO daily Metoprolol Tartrate 25 mg tablet PO BID Pantoprazole Sodium Sesquihydr 40 mg tablet PO daily takes at 1200 Polyethylene Glycol 1 Powder 17 gram PO daily takes at 1200 Nepro with Carb Steady 1 Liq 240 milliliter PO daily takes at 1100 Nitroglycerin 0.4 mg Sublingual q5min x 3 doses for chest pain Prednisone Taper 10 mg tablets PO: 6 tabs QDX1D.Then,5 tabs QDx1D.4 tabs QDX1D.3 tabs QDX1D.2 tabs QDx1D.1 tab QDX1D.1/2tab QDX1D.Then,stop. DISCONTINUED: Calcium Acetate due to Hypophosphatemia Cc: Dr. Volodymyr Corral Time spent on discharge: Greater than 35 minutes. Discharge Medications Scheduled (Basaglar Kwikpen) 100 Unit/Ml Inj, 10 UNIT SC QHS, (Reported) (Nepro with Carb Steady) 1 Liq Liq, 240 ML PO DAILY, (Reported) TAKES AT 1100 Acetaminophen/Hydrocodone ([place] 5-325 mg) 1 Tab Tab, 1 TAB PO 3XW, (Reported) TAKES ON THURSDAY, THURSDAY, AND THURSDAY BEFORE DIALYSIS AT 1500 Albuterol/Ipratropium (Ipratropium Tryon/Albut 0.5-2.5 (3) mg/3Ml) 1 Isac Isac, 1 ISAC INH BID, (Reported) Atorvastatin Calcium (Lipitor) 20 Mg Tab, 20 MG PO QHS, (Reported) Clopidogrel Bisulfate (Clopidogrel) 75 Mg Tab, 75 MG PO DAILY, (Reported) TAKES AT 1200 Docusate Sodium (Docusate Sodium) 100 Mg Cap, 100 MG PO DAILY, (Reported) Ergocalciferol (Vitamin D) 50,000 Unit Cap, 50,000 UNIT PO QMONTH, (Reported) THE 1ST OF EACH MONTH Febuxostat (Uloric) 40 Mg Tab, 40 MG PO Q2D, (Reported) TAKES AT 1200 Gabapentin (Gabapentin) 300 Mg Cap, 300 MG PO DAILY, (Reported) Metoprolol Tartrate (Metoprolol Tartrate) 25 Mg Tab, 25 MG PO BID, (Reported) Pantoprazole Sodium Sesquihydr (Protonix) 40 Mg Tab, 40 MG PO DAILY, (Reported) TAKES AT 1200 Polyethylene Glycol (Miralax) 1 Pow Pow, 17 GM PO DAILY, (Reported) TAKES AT 1200 Scheduled PRN (Enema Disposable) 1 Tejinder Tejinder, 1 TEJINDER UT DAILY PRN for CONSTIPATION, (Reported) Acetaminophen (Tylenol) 325 Mg Tab, 650 MG PO Q4H PRN for PAIN OR FEVER, (Reported) Acetaminophen (Acephen) 650 Mg Sup, 650 MG UT Q4H PRN for PAIN / FEVER, (Reported) Albuterol/Ipratropium (Ipratropium Tryon/Albut 0.5-2.5 (3) mg/3Ml) 1 Isac Isac, 1 ISAC INH Q4H PRN for SHORTNESS OF BREATH, (Reported) Bisacodyl (Dulcolax) 10 Mg Sup, 10 MG UT DAILY PRN for CONSTIPATION, (Reported) Nitroglycerin (Nitroglycerin) 0.4 Mg Sub, 0.4 MG SL Q5MP PRN for CHEST PAIN, (Reported) Allergies Coded Allergies: No Known Drug Allergy (Verified Allergy, Unknown, 04/15/17) GME ATTESTATION GME ATTESTATION My faculty preceptor for this patient encounter was Dr. Hari Nolan, and was physically present during the encounter and was fully available. All aspects of the patient interview, examination, medical decision making process, and medical care plan development were reviewed and approved by the faculty preceptor. The faculty preceptor is aware and concurs with the plan as stated in the body of this note and will attest to such by his/her cosignature. MAKENZIE LAWTON DO May 04, 2018 11:27
== END 2018-04-23 12:53 | DRG 190 ==
LOC: M ED 07:48 → M ED INP 11:55 → M PCU 17:37
PROVIDERS: ADMIT Internal Medicine Nephrology; ATTEND Family Medicine
PROC: 0JP Subcutaneous Tissue and Fascia, Removal (ICD-10-PCS; principal; 2018-04-21 14:13)
DX: J44.1 Chronic obstructive pulmonary disease with (acute) exacerbation (principal); J96.21 Acute and chronic respiratory failure with hypoxia; N18.6 End stage renal disease; I13.2 Hypertensive heart and chronic kidney disease with heart failure and with stage 5 chronic kidney disease, or end stage renal disease; I50.22 Chronic systolic (congestive) heart failure; T82.7XXA Infection and inflammatory reaction due to other cardiac and vascular devices, implants and grafts, initial encounter; T82.868A Thrombosis due to vascular prosthetic devices, implants and grafts, initial encounter; B97.4 Respiratory syncytial virus as the cause of diseases classified elsewhere; E11.42 Type 2 diabetes mellitus with diabetic polyneuropathy; E11.22 Type 2 diabetes mellitus with diabetic chronic kidney disease; E11.51 Type 2 diabetes mellitus with diabetic peripheral angiopathy without gangrene; E78.5 Hyperlipidemia, unspecified; K21.9 Gastro-esophageal reflux disease without esophagitis; D63.1 Anemia in chronic kidney disease; J84.10 Pulmonary fibrosis, unspecified; M10.9 Gout, unspecified; K59.00 Constipation, unspecified; Z99.2 Dependence on renal dialysis; Z79.899 Other long term (current) drug therapy; Z79.02 Long term (current) use of antithrombotics/antiplatelets; Z79.891 Long term (current) use of opiate analgesic; Z79.52 Long term (current) use of systemic steroids; Z20.828 Contact with and (suspected) exposure to other viral communicable diseases; Z89.421 Acquired absence of other right toe(s); Z87.891 Personal history of nicotine dependence; Z89.411 Acquired absence of right great toe; Z89.412 Acquired absence of left great toe; Z99.81 Dependence on supplemental oxygen; Y83.1 Surgical operation with implant of artificial internal device as the cause of abnormal reaction of the patient, or of later complication, without mention of misadventure at the time of the procedure

== ENCOUNTER → 2018-04-24 | Outpatient (REF) | payer MEDICAID, MEDICARE ==
[~2018-04-24] MED LIST changes: +CEFD1CAP8 PO; +DOXY-350 PO; +PATIENT COMMENTS
[2018-04-24 12:54] LABS: HEMOGLOBIN 11.1 g/dl (13.5-17.5); MEAN CORPUSCULAR HEMOGLOBIN 31.9 pg (27.0-33.0); MEAN CORPUSCULAR HGB CONC 30.8 g/dl (32.0-36.5); MEAN CORPUSCULAR VOLUME 103.4 fl (80.0-96.0); PLATELET COUNT, AUTOMATED 203 10^3/uL (150-450); RED BLOOD COUNT 3.48 10^6/uL (4.30-6.10); WHITE BLOOD COUNT 9.2 10^3/uL (4.0-10.0)
[2018-04-24 13:39] LABS: CREATININE FOR GFR 3.15 MG/DL (0.70-1.30); GLOMERULAR FILTRATION RATE 20.3 (>35); PHOSPHORUS LEVEL 1.8 MG/DL (2.5-4.9); POTASSIUM SERUM 3.8 MEQ/L (3.5-5.1)
== END ==
LOC: SKLAB3 11:49
PROVIDERS: ATTEND Student in an Organized Health Care Education/Training Program
DX: R74.8 Abnormal levels of other serum enzymes (principal)

== ENCOUNTER 2018-05-07 22:20 | Emergency (ER) | payer MEDICARE, MEDICAID ==
[~2018-05-07] VITALS: Ht 157.5 cm; Wt 82.1 kg
[2018-05-07 22:21] VITALS: BP 114/83
== END 2018-05-08 02:03 | disposition home or self-care (01) ==
LOC: M ED 22:20
DX: I95.3 Hypotension of hemodialysis (principal); R60.9 Edema, unspecified; E11.51 Type 2 diabetes mellitus with diabetic peripheral angiopathy without gangrene; J44.9 Chronic obstructive pulmonary disease, unspecified; N18.9 Chronic kidney disease, unspecified; I73.9 Peripheral vascular disease, unspecified; Z79.01 Long term (current) use of anticoagulants; Z79.899 Other long term (current) drug therapy; Z98.890 Other specified postprocedural states

== ENCOUNTER → 2018-05-07 | Outpatient (REF) | payer MEDICARE, MEDICAID ==
[~2018-05-07] MED LIST changes: -CEFD1CAP8 PO; -DOXY-350 PO; -PATIENT COMMENTS
[2018-05-07 10:40] LABS: HEMATOCRIT 33.2 % (42.0-52.0); HEMOGLOBIN 9.8 g/dl (13.5-17.5); MEAN CORPUSCULAR HEMOGLOBIN 31.2 pg (27.0-33.0); MEAN CORPUSCULAR HGB CONC 29.5 g/dl (32.0-36.5); MEAN CORPUSCULAR VOLUME 105.7 fl (80.0-96.0); PLATELET COUNT, AUTOMATED 151 10^3/uL (150-450); RED BLOOD COUNT 3.14 10^6/uL (4.30-6.10); WHITE BLOOD COUNT 7.7 10^3/uL (4.0-10.0)
[2018-05-07 11:29] LABS: ALBUMIN 2.1 GM/DL (3.2-5.2); BILIRUBIN,TOTAL 0.4 MG/DL (0.2-1.0); C REACTIVE PROTEIN QUANTITATIV 9.22 MG/DL (0.00-0.30); CREATININE FOR GFR 4.52 MG/DL (0.70-1.30); GLOMERULAR FILTRATION RATE 13.4 (>35); POTASSIUM SERUM 4.4 MEQ/L (3.5-5.1); TOTAL PROTEIN 5.3 GM/DL (6.4-8.2)
--- NOTE | 2018-05-07 15:12 | REP ---
Portable chest x-ray: Single view. History: Edema. Findings: A right-sided tunnel central venous catheter is again noted. The aorta is tortuous and calcific. Interstitial markings are increased diffusely in the lung scott unchanged. Cardiomegaly is observed unchanged. No new infiltrate is seen. There is a vascular stent in the left upper arm. Electronically Signed by Brad Posada MD 05/07/2018 11:57 A
== END ==
LOC: SKLAB3 09:49
PROVIDERS: ATTEND Family Medicine
DX: R60.9 Edema, unspecified (principal)

== ENCOUNTER 2018-05-17 16:02 | Inpatient (IN) | payer MEDICARE, MEDICAID ==
[~2018-05-17] VITALS: Ht 162.6 cm; Wt 85.7 kg
[2018-05-17 16:36] LABS: BASO # 0.1 10^3/uL (0.0-0.2); BASO % 0.7 % (0.0-1.0); EOS # 0.2 10^3/uL (0.0-0.50); EOS % 2.8 % (0.0-3.0); HEMATOCRIT 41.7 % (42.0-52.0); HEMOGLOBIN 12.2 g/dl (13.5-17.5); LYMPH # 1.7 10^3/uL (1.5-4.5); LYMPH % 20.2 % (24.0-44.0); MEAN CORPUSCULAR HGB CONC 29.3 g/dl (32.0-36.5); MEAN CORPUSCULAR VOLUME 109.4 fl (80.0-96.0); NEUTROPHILS # 5.2 10^3/uL (1.8-7.7); NEUTROPHILS % 61.2 % (36.0-66.0); PLATELET COUNT, AUTOMATED 328 10^3/uL (150-450); RED BLOOD COUNT 3.81 10^6/uL (4.30-6.10); WHITE BLOOD COUNT 8.4 10^3/uL (4.0-10.0)
[2018-05-17 16:47] LABS: APPEARANCE, URINE MANUAL TURBID (CLEAR); COLOR, URINE MANUAL YELLOW (YELLOW)
[2018-05-17 16:49] LABS: BILIRUBIN, URINE MANUAL NEGATIVE (NEGATIVE); BLOOD URINE MANUAL POSITIVE (NEGATIVE); GLUCOSE, URINE (UA) MANUAL NEGATIVE (NEGATIVE); KETONE, URINE MANUAL 1+ mg/dL (NEGATIVE); LEUKOCYTE ESTERASE, URINE MAN POSITIVE (NEGATIVE); NITRITE, URINE MANUAL TRACE (NEGATIVE); PROTEIN, URINE MANUAL 3+ mg/dL (NEGATIVE); UROBILINOGEN, URINE MANUAL NORMAL (NORMAL)
[2018-05-17 16:56] LABS: SPECIFIC GRAVITY,URINE MANUAL 1.016 (1.002-1.035)
[2018-05-17 16:59] LABS: BACTERIA, URINE LARGE AMOUNT; RBC, URINE 15-20 /hpf (0-3); SQUAMOUS EPITHELIAL CELL URINE NONE SEEN /hpf (SMALL AMT); TRANSITIONAL EPI CELLS, URINE SMALL AMOUNT /hpf; WBC, URINE TNTC /hpf (0-3)
[2018-05-17 17:00] LABS: HYALINE CAST, URINE NONE SEEN /lpf (0-1); MUCUS, URINE SMALL AMOUNT (NEGATIVE)
--- NOTE | 2018-05-17 17:12 | REP ---
CT Head without contrast HISTORY: Altered mental status COMPARISON: 03/10/2018 Areas of decreased attenuation are present in the periventricular and subcortical white matter. This represents small-vessel ischemic disease. There is no intraparenchymal hemorrhage, acute infarct, mass or midline shift. The ventricular system and cortical sulci as well as subarachnoid space in the posterior fossa are dilated consistent with mild volume loss. There is no extra cerebral collection. There is no fracture. The visualized sinuses are clear. IMPRESSION: 1. Small vessel ischemic disease. 2. Mild volume loss. Electronically Signed by Alin Luke MD 05/17/2018 05:03 P
[2018-05-17 17:24] LABS: ALBUMIN 2.2 GM/DL (3.2-5.2); ALT/SGPT 7 U/L (12-78); BILIRUBIN,DIRECT < 0.1 MG/DL (0.0-0.2); BILIRUBIN,TOTAL 0.3 MG/DL (0.2-1.0); BLOOD UREA NITROGEN 15 MG/DL (7-18); CALCIUM LEVEL 8.7 MG/DL (8.8-10.2); CARBON DIOXIDE LEVEL 32 MEQ/L (21-32); CHLORIDE LEVEL 106 MEQ/L (98-107); CPK CREATINE PHOSPHOKINASE 51 U/L (39-308); FREE T4 1.14 NG/DL (0.76-1.46); GLOMERULAR FILTRATION RATE 7.4 (>35); GLUCOSE, FASTING 39 MG/DL (70-100); MB/CK RELATIVE INDEX 2.94 (< OR =4); NT-PRO BNP 54283 PG/ML (<450); PHOSPHORUS LEVEL 3.2 MG/DL (2.5-4.9); POTASSIUM SERUM 4.8 MEQ/L (3.5-5.1); SODIUM LEVEL 145 MEQ/L (136-145); TOTAL PROTEIN 5.7 GM/DL (6.4-8.2)
[2018-05-17] MEDS ORDERED: DEXTROSE 50% 50 ML SYRINGE IV STA (17:41)
[2018-05-17] MEDS ORDERED: DEXTROSE 50% 50 ML SYRINGE As Ordered ONE (17:41)
[2018-05-17] MEDS ORDERED: VANCOMYCIN HCL 1,000 MG, VIAL MATE ADAPTER 1 EACH in D5W 250 ML IV ONE (18:00)
[2018-05-17] MEDS ORDERED: PIPERACILLIN/TAZOBACTAM SOD 2.25 GM in D5W MINI-BAG PLUS 50 ML IV ONE (18:00)
[2018-05-17 18:23] LABS: ABG BASE EXCESS -1.6 (-2.0-2.0); ABG HCO3 26.7 MEQ/L (22.0-26.0); ABG O2 SATURATION 94.7 % (95.0-99.0); ABG PARTIAL PRESSURE O2 84.1 mmHg (75.0-100.0); ABG STANDARD HCO3 23.1 MEQ/L (22.0-26.0); ABG TOTAL CO2 28.6 MEQ/L (23.0-31.0)
[2018-05-17 18:27] LABS: ABG PARTIAL PRESSURE CO2 62.5 mmHg (35.0-45.0); ABG pH (ARTERIAL) 7.248 UNITS (7.350-7.450)
--- NOTE | 2018-05-17 19:05 | REP ---
CHEST, TWO VIEWS: Two views of the chest are performed and compared to prior study of 05/07/2018. There is dense infiltrate or atelectasis in the right lung base. There is no definite acute infiltrate in the left lung. There is cardiomegaly. There is calcification and tortuosity of the thoracic aorta. Mediastinal silhouette is unchanged. Right central venous catheter is again noted. IMPRESSION: Right basilar atelectasis/infiltrate. Electronically Signed by Kris Stone MD 05/17/2018 07:58 P
--- NOTE | 2018-05-17 20:08 | ECGEPIP ---
Stationary ECG Study [facility] - ED Test Date: 2018-05-17 Pat Name: EVE GANN Department: Room: - Gender: M [employer] C[employer]: [facility] : 1935 Requested By: EDI Olmedo Order Number: [id number] Reading MD: Dawna Fernández Measurements Intervals Cora Rate: 64 P: 21 ND: 154 QRS: -12 QRSD: 93 T: -22 QT: 428 QTc: 444 Interpretive Statements SINUS RHYTHM LEFTWARD AXIS NONSPECIFIC ST T WAVE CHANGES CW 04/16/[address] T WAVE CHANGES Electronically Signed On 05-17-2018 20:08:19 EST by Dawna Fernández
[2018-05-17] MEDS ORDERED: GLUCAGON FOR INJ 1 MG VIAL (J1610) SC PRN ×2 (20:30→22:30)
[2018-05-17] MEDS ORDERED: GLUCOSE 4 GM CHEW TABLET PO PRN ×2 (20:30→22:30)
[2018-05-17] MEDS ORDERED: DEXTROSE 50% 50 ML SYRINGE IV PRN ×2 (20:30→22:30)
[2018-05-17 20:31] LABS: ABG BASE EXCESS 2.5 (-2.0-2.0); ABG HCO3 31.3 MEQ/L (22.0-26.0); ABG O2 SATURATION 95.2 % (95.0-99.0); ABG PARTIAL PRESSURE O2 84.1 mmHg (75.0-100.0); ABG STANDARD HCO3 26.6 MEQ/L (22.0-26.0); ABG TOTAL CO2 33.5 MEQ/L (23.0-31.0); ABG pH (ARTERIAL) 7.255 UNITS (7.350-7.450)
[2018-05-17 20:33] LABS: ABG PARTIAL PRESSURE CO2 72.2 mmHg (35.0-45.0)
[2018-05-17 20:43] VITALS: O2SAT 100
[2018-05-17] MEDS ORDERED: D5W 250 ML IV SCH (20:45)
[2018-05-17] MEDS ORDERED: methylPREDNISolone INJ 125 MG/2 ML VIAL (J2930) IV SCH (21:00)
[2018-05-17] MEDS ORDERED: ATORVASTATIN 20 MG TAB PO SCH (21:00)
[2018-05-17] MEDS ORDERED: NS 500 ML IV ONE ×2 (21:15)
[2018-05-17 21:58] VITALS: O2SAT 100
[2018-05-17] MEDS ORDERED: VANCOMYCIN HCL 1,000 MG, VIAL MATE ADAPTER 1 EACH in D5W 250 ML IV SCH (22:15)
--- NOTE | 2018-05-17 23:47 | HPE ---
DATE OF ADMISSION: 05/17/2018 CHIEF COMPLAINT: The patient was sent from dialysis for worsening mentation and worsening difficulty breathing. HISTORY OF THE PRESENT ILLNESS: The patient is an 82-year-old male. He has a significant past medical history of coronary artery disease, diabetes with neuropathy and nephropathy, end-stage renal disease (ESRD) and dialysis Thursday, Thursday, Thursday, hypertension, hyperlipidemia, chronic obstructive pulmonary disease (COPD) - on two liters of oxygen nasal cannula, congestive heart failure. He was brought into the emergency room from dialysis for respiratory distress and worsening mentation. When I did finally see the patient, he was on bilevel positive airway pressure (BiPAP). He was arousable to deep sternal rub only, so my history is very limited. Most of the history is obtained from the chart, the family, as well as the emergency room (ER) provider. As per the ER provider, the patient has been doing poorly from a respiratory status for the last few days, in dialysis he was lethargic. On presentation to the emergency room, he was very somnolent and difficult to arouse. An x-ray showed what was concerning for pneumonia. A blood gas showed he was retaining and hypoxic with a pH of 7.24, pCO2 of , pO2 of 94. He was placed on BiPAP. Gas was subsequently repeated, which showed worsening CO2 narcosis; the pO2 increased to 72.2. The patient was also hypoglycemic. He was given an amp of D50, his sugars increased; however, his mentation continued to deteriorate, and his pCO2 continued to increase. The patient is a DO NOT RESUSCITATE/DO NOT INTUBATE (DNR/DNI), limited medical interventions, no feeding tube. Over the course of admitting the patient, the patient started to become hypotensive. Blood pressure started to drop into the low 70s. His respiratory status started to decline. I reached out to his healthcare proxy, the daughter listed in the chart, at which point in time she had a discussion with her family, including her younger sister who is a healthcare provider, a nurse by profession. The family subsequently expressed that they are considering revoking his DNR/DNI and having the patient intubated at which point in time, the obstetrician gynecologist, Dr. Soto, was involved in the conversation. A decision is still being reached with the family. Discussions are being held about the goals of care. In the meantime, until this is finalized, we were going to respect the Medical Orders for Life-Sustaining Treatment (MOLST), limited medical interventions, DNR/DNI. The patient will be on antibiotics, DuoNebs. He will be continued on BiPAP for now with a repeat gas, though his mentation is not appropriate for BiPAP. PAST MEDICAL HISTORY: All information obtained from the chart. See history of the present illness. PAST SURGICAL HISTORY: Obtained from the chart - toe amputation, right PermCath, arteriovenous (AV) fistula. ALLERGIES: No known drug allergies. SOCIAL HISTORY: From the chart, former smoker, resides at [facility]. FAMILY HISTORY: Noncontributory. REVIEW OF SYSTEMS: Unable to complete due to patient's underlying mentation. VITAL SIGNS ON ADMISSION: Temperature 97.1, pulse in the 60s. He is on BiPAP saturating at 100%. Blood pressure 140s over 70s initially. PHYSICAL EXAM: The patient is very somnolent, arousable only to deep sternal rub and noxious stimuli. Head is normocephalic, atraumatic Pupils equal, round, reactive to light. Neck: No jugular venous pressure (JVP). Lungs: There is good air entry in the anterior chest; again, the patient is very somnolent, difficult to arouse. The exam is limited. Cardiovascular: Regular rate and rhythm. Normal S1, S2. No murmurs, gallops, or rubs. Abdomen: Soft, positive bowel sounds. Extremities: There is trace edema. No calf tenderness. Skin: Appears to be intact. He does have amputations. Neurological: Unable to assess. He is only arousable to noxious stimuli. His pupils are reactive to light. LABS: Completed in the emergency department (ED). White count of 8, hemoglobin and hematocrit of 12 over 41, platelet count of 328. Initial blood gas: 7.24, , 84, 28, 94. After 2 hours on BiPAP, 7.255, 72, 84, 33, 95. BiPAP setting was changed to increase the IPAP and the gap between the IPAP and the EPAP, as well as they increased the respiratory rate. Chemistry shows a BUN and creatinine of 15 over 7.5. He is Thursday, Thursday, Thursday dialysis, did not receive dialysis today. Fasting fingerstick initially was 39. After one amp of D50, it became in the 150s. Troponin was 0.2. BNP of 54,283. Urinalysis (UA) showed significant pyuria, positive leukocyte esterase, too numerous to count WBCs. IMAGING: Chest x-ray shows right basilar atelectasis, infiltrate, pulmonary venous congestion. Head CT shows small vessel ischemic disease. ASSESSMENT AND PLAN: Metabolic encephalopathy, multifactorial, secondary septic shock in the setting of urinary tract infection and pneumonia. Will cover the patient with vancomycin and cefepime. He has grown Proteus in the past. Will give a challenge of IV fluids, a bolus of normal saline 500 mL to see if we can increase his blood pressure. Keep nothing by mouth. Tylenol as needed. Will get a lactic acid. For acute on chronic respiratory failure with hypercapnia, hypoxia, likely secondary to COPD exacerbation, secondary to severe septic shock, secondary to pneumonia and urinary tract infection. DuoNeb standing. Solu-Medrol 40 every 12 hours. Insulin sliding scale while on Solu-Medrol. Keep on BiPAP for now. The patient is DNR/DNI, limited medical interventions. Discussion being held with his family to clarify his goals of care. Hypoglycemia, fingerstick was 39, likely in the setting of sepsis. Will place on D5 250, fingerstick hourly and then every 4 hours fingerstick with coverage. For the rest of his chronic medical conditions, see ED. Will continue Plavix and Lipitor. Will hold beta blockers in the setting of hypotension. Diabetes. Place on insulin sliding scale. Will hold his long-acting for now, as well as his oral hypoglycemics. Congestive heart failure. Beta blockers being held for now. He is not on any diuretics, and he can be diuresed in the setting of hypotension. End-stage renal disease. Renal consulted for dialysis Thursday, Thursday, Thursday schedule. Hyperlipidemia. Continue Lipitor. Elevated troponin. This is likely secondary to demand ischemia in the setting of severe septic shock. Will trend. Will keep the patient on telemetry. Deep vein thrombosis (DVT) prophylaxis. Heparin subcu. Gastrointestinal (GI) prophylaxis. Protonix. Diet: Nothing by mouth for now. Prognosis is very poor. TIME ADMINISTERING CRITICAL CARE: 100 minutes, extremely lengthy discussion held with the family to determine the goals of care. At this point, the patient remains DNR/DNI, limited medical interventions while goals of care discussed and finalized with the family.
[2018-05-18] MEDS ORDERED: HumaLOG INSULIN (NovoLOG) PER UNIT SC SCH
[2018-05-18] MEDS ORDERED: IPRATROPIUM 0.5MG/ALBUTEROL 2.5MG INH SOL UD 3ML (DUONEB)(J7620) NEB SCH
[2018-05-18] MEDS: methylPREDNISolone INJ 40 MG/1 ML VIAL (J2920) IV SCH ×3 (00:50→21:49)
[2018-05-18] MEDS: MORPHINE 10MG/0.5ML ORAL CONCENTRATE SOLUTION U/D SL PRN ×3 (01:37→21:49)
[2018-05-18] MEDS: IPRATROPIUM 0.5MG/ALBUTEROL 2.5MG INH SOL UD 3ML (DUONEB)(J7620) NEB SCH ×6 (04:00→20:41)
--- NOTE | 2018-05-18 05:08 | CR ---
DATE OF CONSULTATION: 05/17/2018 REQUESTING PHYSICIAN: Dr. Nando Rogers in the emergency room. CONSULTING PHYSICIAN: Jayesh Bonilla MD REASON FOR CONSULTATION: Management of end-stage renal disease, hemodialysis and fluid status in this patient with end-stage renal disease who missed hemodialysis. CHIEF COMPLAINT: The patient was sent to the emergency room from dialysis center because of weakness, lethargy and inability to get the hemodialysis done. HISTORY OF PRESENT ILLNESS: Mr. Nnamdi Rodriguez is an 82-year-old old male with a past medical history of end-stage renal disease on hemodialysis every Thursday, Thursday and Thursday, history of chronic obstructive pulmonary disease (COPD), coronary artery disease, congestive heart failure, peripheral vascular disease, multiple other comorbidities as mentioned below well known to nephrology service from outpatient hemodialysis and for multiple previous hospitalizations with chronic obstructive pulmonary disease (COPD) exacerbation, congestive heart failure (CHF), sepsis, infections. He is a [facility] resident. Today he went to hemodialysis center for his regular session of hemodialysis; however, he was found to be very lethargic and unresponsive by the nursing staff. They refused to dialyze him. The patient was sent to the emergency room for further evaluation. In the emergency room the patient was found to be very obtunded and confused and drowsy. Further laboratory work in the emergency room showed that his blood glucose level was less than 40. He was given intravenous (IV) dextrose; however, despite administration of dextrose the patient was not waking up. Nephrology service was called for further help in the management of this patient and possible need to do hemodialysis. I saw and evaluated the patient today evening in the emergency room. The patient was totally obtunded and sleepy. He was not waking up to loud and painful stimuli. His systolic blood pressures were running in 100s. Patient was not following any commands and he was unable to provide any reliable history to me. PAST MEDICAL HISTORY: 1. End-stage renal disease on hemodialysis every Thursday, Thursday and Thursday. 2. Chronically on chronic obstructive pulmonary disease (COPD) and oxygen dependence. 3. Diabetes mellitus type 2. 4. Morbid obesity. 5. Coronary artery disease. 6. Gastroesophageal reflux disease. 7. Diastolic congestive heart failure. 8. Chronic hypotension. 9. Hyperlipidemia. 10. Peripheral vascular disease. 11. Diabetic neuropathy. 12. Gout secondary to chronic kidney disease. PAST SURGICAL HISTORY: 1. History of multiple surgical procedures in the left upper arm arteriovenous (AV) graft site infection. 2. 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 3. Status post right internal jugular (IJ) tunnel and dialysis catheter placement. ALLERGIES: No known drug allergies. FAMILY HISTORY: No significant family history of end-stage renal disease requiring hemodialysis. SOCIAL HISTORY: The patient is a [facility] resident. There is no history of illicit drug abuse or smoking or alcohol abuse. He is a former smoker. REVIEW OF SYSTEMS: The patient is very obtunded. He is unable to provide any review of systems at this point. PHYSICAL EXAMINATION: GENERAL: The patient is very sleepy, drowsy, obtunded and comatose, unable to provide any history, not responding to painful stimuli. HEAD AND NECK EXAM: Pupils equal, round, and reactive to light. Mucous membranes are moist. Neck is supple. There is no significant jugular venous distention (JVD). CARDIOVASCULAR: S1, S2 irregular heart rate, 1+ edema of the bilateral lower extremities. RESPIRATORY: The patient is having shallow breathing, decreased breath sounds at the bases and mild amount of expiratory rhonchi as well. ABDOMEN: Soft, obese, positive bowel sounds, no organomegaly was appreciated. GENITOURINARY (): The bladder is not palpable. MUSCULOSKELETAL: Bilateral lower extremity multiple toe amputations were noted. CENTRAL NERVOUS SYSTEM (ADMISSIONS GATE ATTENDANT): The patient is very obtunded and confused. Does not follow commands. VITALS: Temperature is 97.1 degrees Fahrenheit, blood pressure is 100/55, pulse is 67, respiratory rate of 20, saturating 99%. LABORATORY REVIEW: Complete blood count (CBC) showed a white blood cell (WBC) of 8.4, hemoglobin is 12.2, platelets are 328. Urinalysis showed that urine was turbid, trace leukocyte esterase. Nitrite was pending. Too numerous to count white blood cell (WBC). Large amount of bacteria were noted. Arterial blood gas (ABG) showed pH of 7.2, pCO2 of 62, PO2 is 84, bicarbonate is 26, oxygen saturation is 94%. Basic metabolic panel (BMP) showed sodium 145, potassium is 4.8, chloride 106, bicarbonate 32, BUN 15, creatinine is 7.5, calcium 8.7, phosphorus is 3.2. Troponin 0.02, proBNP is 54,283, albumin is 2.2. IMAGING: A chest x-ray was done in the emergency room which showed right basilar atelectasis versus infiltrate. CURRENT INPATIENT MEDICATIONS: The patient was given: - normal saline boluses - vancomycin 1 gram intravenous (IV) times one dose - Zosyn 2.25 gram one dose HOME MEDICATIONS: The patient's home medications include: - Tylenol as needed - Cabot as needed - DuoNebs as needed - Lipitor 20 mg at bedtime - Basaglar Kwikpen 10 units at bedtime - Plavix 75 mg daily - Colace 100 mg by mouth daily - vitamin D 50,000 units once a month - Uloric 40 mg every other day - gabapentin 300 mg daily - metoprolol 25 mg by mouth twice a day - Protonix 40 mg daily - MiraLAX 17 grams by mouth daily ASSESSMENT: An 82-year-old male with history of end-stage renal disease on hemodialysis every Thursday, Thursday and Thursday, history of diastolic congestive heart failure, chronic obstructive pulmonary disease (COPD) admitted at this time with urinary tract infection, acute hypercapnic respiratory failure and hypoglycemia. PLAN: 1. End-stage renal disease on hemodialysis. The patient's regular dialysis days are Thursday, Thursday and Thursday; however, patient is too unstable at this point to get hemodialysis done. There is no significant fluid overload at this point. The patient needs to be stabilized and he will be electively dialyzed tomorrow morning. 2. Acute hypercapnic respiratory failure. The patient is having CO2 retention at this point. Avoid gabapentin and further use of opioids at this time. The patient needs bilevel positive airway pressure (BiPAP) at this point. Continue nebulizations. The patient also has a right lower lobe infiltrate which is atelectasis versus pneumonia. I agree with covering him with vancomycin and Zosyn for healthcare-associated pneumonia. 3. Hypoglycemia. The patient was already given D50 in the emergency room. Glucose level is better. Continue the fingerstick blood tests done. 4. Chronic diastolic congestive heart failure. The patient's brain natriuretic peptide (BNP) is elevated. He does have lower extremity edema as well; however, he is too unstable at this point to get hemodialysis done. If patient's blood pressures do not improve he might need to start continuous veno-venous hemodiafiltration (CVVHDF) through the hemodialysis catheter. 5. 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 The patient is obtunded at this time. Uloric can be held. 6. Coronary artery disease status post coronary artery bypass grafting (CABG). Continue home dose of statins and Plavix. Troponins are negative at this point. 7. Chronic obstructive pulmonary disease (COPD). Continue the nebulizations. Continue antibiotics and bilevel positive airway pressure (BiPAP) for the hypercapnic respiratory failure as mentioned above. Thank you for involving me in the care of this patient. I shall be happy to follow the patient along with you tomorrow morning. Plan of care was already discussed with the emergency room physician, Dr. Nando Rogers and with the admitting physician, Dr. Alfredo. Total critical care time spent in the management of this patient today evening in the emergency room was 45 minutes.
--- NOTE | 2018-05-18 05:20 | CCN ---
DATE OF SERVICE: 05/17/2018 I was called urgently by Dr. Alfredo for this patient who was in respiratory failure. He was unconscious in septic shock with advance directives for DO NOT RESUSCITATE/DO NOT INTUBATE (DNR/DNI) and limited medical interventions. They were attempting bilevel positive airway pressure (BiPAP); however he is unconscious and not having significant improvement. His DNR/DNI had been reviewed four times and there was actually an older DNR/DNI signed by the patient himself prior to his multiple verbal recordings that he would not want resuscitation. The patient had presented with dialysis due to significant respiratory distress. I therefore contacted his daughters who are on their way from [place]. They did not want any further resuscitation. They wanted to make sure he was comfortable. That is in agreement with his wishes. PAST MEDICAL HISTORY: Past medical history is significant for: 1. End-stage renal disease. 2. History of infected left arm arteriovenous (AV) graft. 3. Diabetes. 4. Reported chronic obstructive pulmonary disease (COPD). 5. Peripheral vascular disease. PHYSICAL EXAMINATION: Temperature is 97.1, pulse is 56, respiratory rate is 18, blood pressure is 79/41. Oxygen saturation on bilevel positive airway pressure (BiPAP) was 100%. When I first examined the patient his pupils were pinpoint. He was unresponsive to tactile stimuli. Mucous membranes were moist. Neck: Supple. Chronic indwelling tunneled dialysis catheter on the right chest. Multiple arteriovenous (AV) grafts of varying function on bilateral extremities. CARDIAC: Irregularly irregular without audible murmur, rub or gallop. Point of maximal impulse (PMI) is displaced laterally. PULMONARY: Decreased breath sounds throughout. Poor chest expansion. ABDOMEN: Abdomen is soft, nontender, nondistended. No hepatosplenomegaly, masses or hernia. EXTREMITIES: There is significant pitting edema. SKIN: Multiple bruising. MUSCULOSKELETAL: Significant muscle wasting. Chest x-ray: Shows bilateral effusions, right greater than left. There is some question whether there is actual infiltrate in the left base. Sodium is 145, potassium 4.8, chloride is 106, bicarbonate of 32, BUN of 15, creatinine of 7.5, brain natriuretic peptide (BNP) is 54,000. Arterial blood gas of 725, 72, pAO2 of 84. IMPRESSION: 1. Altered mental status likely secondary to hypoperfusion. 2. Respiratory failure with hypercarbia. 3. Hypoxia. 4. Hypoglycemia, improved with treatment in the emergency room (ER). Will have to monitor closely. 5. Hypotension. 6. Protein malnourishment. 7. End-stage renal disease. 8. Increased cardiac enzymes likely secondary to hypoperfusion. 9. Urinary tract infection (UTI) with probable septic shock. At this point in time the patient is comfort care. The family wants comfort measures only. I think this is reasonable given the patient's predetermined wishes however, shortly after our conversation the patient did have some spontaneous awakening even though he remains hypotensive. I will therefore respect his wishes. I am not providing any critical care. It would not be unreasonable to continue management for infection if the patient has clinical improvement. Overall though he does not want noninvasive ventilation, does not want intubation or cardiopulmonary resuscitation (CPR). MARIPOSA
[2018-05-18 05:50] LABS: HEMATOCRIT 43.5 % (42.0-52.0); HEMOGLOBIN 12.7 g/dl (13.5-17.5); MEAN CORPUSCULAR HEMOGLOBIN 31.9 pg (27.0-33.0); MEAN CORPUSCULAR HGB CONC 29.2 g/dl (32.0-36.5); MEAN CORPUSCULAR VOLUME 109.3 fl (80.0-96.0); PLATELET COUNT, AUTOMATED 330 10^3/uL (150-450); RED BLOOD COUNT 3.98 10^6/uL (4.30-6.10); WHITE BLOOD COUNT 8.5 10^3/uL (4.0-10.0)
[2018-05-18] MEDS: HumaLOG INSULIN (NovoLOG) PER UNIT SC SCH ×5 (06:00→21:00)
[2018-05-18] MEDS ORDERED: HEPARIN SOD (PORCINE) 5000 UNITS/ML VIAL SC SCH (06:00)
[2018-05-18] MEDS: HEPARIN SOD (PORCINE) 5000 UNITS/ML VIAL SQ SCH ×3 (06:03→21:50)
[2018-05-18 06:20] LABS: CALCIUM LEVEL 8.7 MG/DL (8.8-10.2); CREATININE FOR GFR 7.63 MG/DL (0.70-1.30); GLOMERULAR FILTRATION RATE 7.3 (>35); TROPONIN I 0.15 NG/ML (< 0.10)
[2018-05-18] MEDS: PANTOPRAZOLE 40MG TAB (PROTONIX) PO SCH (09:00)
[2018-05-18] MEDS ORDERED: PANTOPRAZOLE 40MG INJ (PROTONIX) (C9113) IV SCH (09:00)
[2018-05-18] MEDS ORDERED: CEFEPIME HCL 1 GM in D5W MINI-BAG PLUS 50 ML IV SCH ×4 (09:00)
[2018-05-18] MEDS ORDERED: ATORVASTATIN 20 MG TAB PO SCH (09:00)
[2018-05-18] MEDS ORDERED: HEPARIN 1,000 UNITS/ML 10ML VIAL (FOR RADIOLOGY& DIALYSIS ONLY) XX ONE (11:00)
[2018-05-18] MEDS ORDERED: HEPARIN 1,000 UNITS/ML 10ML VIAL (FOR RADIOLOGY& DIALYSIS ONLY) IV ONE (11:00)
[2018-05-18] MEDS ORDERED: CLOPIDOGREL 75 MG TAB PO SCH (12:00)
[2018-05-18] MEDS: CLOPIDOGREL 75 MG TAB PO SCH (12:00)
[2018-05-18] MEDS: CEFEPIME HCL 1 GM in D5W MINI-BAG PLUS 50 ML IV SCH (13:41)
[2018-05-18 16:00] VITALS: BP 121/58
[2018-05-18] MEDS: **VANCO AFTER HD** MISC XX SCH (16:00)
[2018-05-18] MEDS ORDERED: VANCOMYCIN HCL 750 MG, VIAL MATE ADAPTER 1 EACH in D5W 250 ML IV SCH (16:00)
--- NOTE | 2018-05-18 18:41 | IPNPDOC ---
Subjective Date Seen The patient was seen on 05/18/18. Subjective Chief Complaint/HPI Patient seen and examined at bedside in dialysis unit. Nursing staff reports no acute events overnight. Dialysis nurse reports that BP at 8 AM this morning was taken and was 96/61. At ~8:04 AM, it was 113/60. Patient was lethargic when he had arrived to the dialysis unit. However, dialysis nurse had placed patient on dialysis and after about 10 minutes or so, patient woke up. He opened his eyes to sternal rub and started mumbling words. Still was confused and not oriented fully. However, less lethargic. It was also noted that patient had sublingual morphine at around 6 AM. Patient was able to shake his head yes/no at times to certain questions appropriately. Shook his head to indicate "no" to feeling pain anywhere. General: Reports: ROS Unobtainable Objective Physical Examination General Exam: Positive: Alert, No Acute Distress, Other (unable to speak full comprehensible sentences at this time;) Eye Exam: Positive: Conjunctiva & lids normal, Other Eye Symptoms (eyes are open;); Negative: Sclera icteric ENT Exam: Positive: Atraumatic Neck Exam: Positive: Supple; Negative: JVD Chest Exam: Positive: Other (Limited anterior chest exam with shallow breaths: no wheezing appreciated, but some scattered rhonchi were noted. ) Heart Exam: Positive: Rate Normal, Irregular Rhythm, Normal S1, Normal S2; Negative: Murmurs Abdomen Exam: Positive: BS Hypoactive, Soft; Negative: Tenderness, Hepatospenomegaly, Mass Extremity Exam: Positive: Edema (trace LE edema bilaterally R >L), Other ((+)Upper extremity swelling bilaterally.) Skin Exam: Negative: Rash Neuro Exam: Negative: Normal Speech Psych Exam: Negative: Mental status NL Assessment /Plan Problems (1) Altered mental status Status: Acute Problem Text: 05/18/18: Multifactorial. Likely secondary to septic shock with UTI and possible RLL pneumonia, as well as hypoperfusion. Was previously hypog lycemic as well. Mentation a bit improved today. Patient was able to open his eyes and keep eyes opened. Was able to mumble/talk a bit even though not fully formed sentences. Was able to nod yes/no to questions. This improvement was seen earlier this AM during dialysis. Continue current management with empiric IV antibiotic therapy with cefepime Day 1 and vancomycin Day 2. Will likely discontinue patient's roxanol as it can also cause patient to have feel weak, dizzy, and cause low BP. (2) Acute on chronic respiratory failure with hypoxia and hypercapnia Status: Acute Response to Treatment: Stable Problem Text: 05/18/18: No desaturations overnight. Continue supplemental O2 therapy with 2L NC. Continue IV solumedrol 40 mg q12h, duoneb 3 mL Rq4h nebulizer. (3) Hypoxia Status: Acute Response to Treatment: Improving (4) COPD (chronic obstructive pulmonary disease) Status: Chronic Response to Treatment: Stable Problem Text: 05/18/18: Acute exacerbation. Had hypercapnia and hypoxia. Patient's O2 saturations have improved on O2 via nasal cannula. Hypoxia could also be secondary likely to fluid overload. Continue nebulizer therapy and solumedrol. (5) Hypoglycemia Status: Acute Response to Treatment: Improving Problem Text: 05/18/18: Glucose was 102 this morning. (6) Hypotension Status: Acute Response to Treatment: Stable Problem Text: 05/18/18: Hypotensive this AM. However, tolerated dialysis without issues. (7) Protein malnutrition Status: Chronic Problem Text: 05/18/18: Total protein was 5.7 (L). Will encourage oral intake when patient mentating more appropriately. In addition, will look into a Dietary/Nutrition consult. (8) End-stage renal disease on hemodialysis Status: Chronic Response to Treatment: Stable Problem Text: 05/18/18: Nephrology is managing. Appreciate recommendations and input. Had dialysis today--probably because he missed dialysis yesterday due to being lethargic/obtunded at dialysis center. Is on MWF schedule usually however. (9) Elevation of cardiac enzymes Status: Acute Response to Treatment: Improving Problem Text: 05/18/18: Troponins are trending down. Likely secondary to hypoperf usion and demand ischemia in setting of septic shock. Will monitor one more set of 3 troponins. (10) Urinary tract infection Status: Acute Problem Text: 05/18/18: Afebrile. Mentation improving. Continue broad spectrum antibiotics for now. (11) Septic shock Status: Acute Problem Text: 05/18/18: Improving. BP was hypotensive this morning. However, patient's been able to maintain BP. (12) Do not resuscitate status Status: Chronic Problem Text: 05/18/18: Dr. Bee had discussion with patient's family today and they have accepted patient's DNR/DNI status. (13) [id number] resuscitation status Status: Chronic Problem Text: 05/18/18: Verified with patient's family today by Dr. Bee. (14) Chronic diastolic (congestive) heart failure Status: Chronic Problem Text: 05/18/18: Had dialysis today. Beta blockers being held due to hypotension. Not on any diuretics. No signs of acute exacerbation currently. (15) Chronic gout Status: Chronic Problem Text: 05/18/18: Secondary to ESRD. Hold uloric until mental status improves enough for patient to take medication orally. (16) Coronary artery disease Status: Chronic Problem Text: 05/18/18: status-post CABG. Monitor one more set of troponins. Continue statin and plavix when patient able to tolerate PO. Plan/VTE VTE Prophylaxis Ordered?: Yes (heparin 5000 units q8h SQ) Disposition Pending clinical improvement. VS, I&O, 24H, [facility] Vital Signs/I&O Vital Signs Date Time Temp Pulse Resp B/P (MAP) Pulse Ox O2 Delivery O2 Flow Rate FiO2 05/18/18 07:30 3.0 05/18/18 06:35 18 05/17/18 23:40 72 98/47 (64) 97 05/17/18 21:58 Room Air 05/17/18 20:43 40 05/17/18 16:36 97.1 I&O- Last 24 Hours up to 6 AM 05/18/18 06:00 Intake Total 320 ml Output Total 10 ml Balance 310 ml Laboratory Data 24H LABS Laboratory Tests 2 05/17/18 16:27: Immature Granulocyte % (Auto) 3.1H, White Blood Count 8.4, Red Blood Count 3.81L, Hemoglobin 12.2L, Hematocrit 41.7L, Mean Corpuscular Volume 109.4H, Mean Corpuscular Hemoglobin 32.0, Mean Corpuscular Hemoglobin Concent 29.3L, Red Cell Distribution Width 15.8H, Platelet Count 328, Neutrophils (%) (Auto) 61.2, Lymphocytes (%) (Auto) 20.2L, Monocytes (%) (Auto) 12.0H, Eosinophils (%) (Auto) 2.8, Basophils (%) (Auto) 0.7, Neutrophils # (Auto) 5.2, Lymphocytes # (Auto) 1.7, Monocytes # (Auto) 1.0H, Eosinophils # (Auto) 0.2, Basophils # (Auto) 0.1, Nucleated Red Blood Cells % (auto) 0.0, Anion Gap 7L, Glomerular Filtration Rate 7.4L, Calcium Level 8.7L, Phosphorus Level 3.2, Magnesium Level 2.0, Aspartate Amino Transf (AST/SGOT) 20, Alanine Aminotransferase (ALT/SGPT) 7L, Alkaline Ph osphatase 93, Total Bilirubin 0.3, Direct Bilirubin < 0.1, Total Creatine Kinase 51, Creatine Kinase MB 2.0, Creatine Kinase MB Relative Index 2.94, Troponin I 0.20H, GD-[id number]-Type Natriuretic Peptide 94830M, Total Protein 5.7L, Albumin 2.2L, Albumin/Globulin Ratio 0.63L, Thyroid Stimulating Hormone (TSH) 3.750H, Free Thyroxine 1.14 05/17/18 16:35: Bedside Urine Color (LAB) YELLOW, Bedside Urine Appearance (LAB) TURBIDH, Bedside Urine pH (LAB) 7.0, Bedside Urine Specific [place] (LAB 1.016, Bedside Urine Protein (LAB) 3+H, Bedside Urine Glucose (UA) NEGATIVE, Bedside Urine Ketones (LAB) 1+H, Bedside Urine Blood POSITIVEH, Bedside Urine Nitrite (LAB) TRACEH, Bedside Urine Bilirubin (LAB) NEGATIVE, Bedside Urine Urobilinogen (LAB) NORMAL, Bedside Urine Leukocyte Esterase (L POSITIVEH, Urine WBC TNTCH, Urine RBC 15-20H, Urine Squamous Epithelial Cells NONE SEEN, Urine Transitional Epithelial Cells SMALL AMOUNTH, Urine Bacteria LARGE AMOUNTH, Urine Hyaline Casts NONE SEEN, Urine Mucus SMALL AMOUNTH, Urine Sediment Examination PERFORMED 05/17/18 18:06: Blood Gas Bicarbonate Standard 23.1, Arterial Blood pH 7.248*L, Arterial Blood Partial Pressure CO2 62.5*H, Arterial Blood Partial Pressure O2 84.1, Arterial Blood Total CO2 28.6, Arterial Blood HCO3 26.7H, Arterial Blood Base Excess - 1.6, Arterial Blood Oxygen Saturation 94.7L 05/17/18 18:12: Bedside Glucose (Misc Panel) 132H 05/17/18 20:19: Bedside Glucose (Misc Panel) 125H 05/17/18 20:26: Blood Gas Bicarbonate Standard 26.6H, Arterial Blood pH 7.255L, Arterial Blood Partial Pressure CO2 72.2*H, Arterial Blood Partial Pressure O2 84.1, Arterial Blood Total CO2 33.5H, Arterial Blood HCO3 31.3H, Arterial Blood Base Excess 2.5H, Arterial Blood Oxygen Saturation 95.2 05/17/18 21:20: Lactic Acid Level 0.8 05/18/18 00:54: Bedside Glucose (Misc Panel) 94 05/18/18 05:29: Nucleated Red Blood Cells % (auto) 0.0, Anion Gap 6L, Glomerular Filtration Rate 7.3L, Blood Urea Nitrogen 16, Creatinine 7.63H, Sodium Level 141, Potassium Level 5.0, Chloride Level 106, Carbon Dioxide Level 29, Calcium Level 8.7L, Troponin I 0.15#H 05/18/18 06:06: Bedside Glucose (Misc Panel) 122H 05/18/18 11:00: CBC/BMP Laboratory Tests 05/17/18 16:27 Red Blood Count 3.81 L, Mean Corpuscular Volume 109.4 H, Mean Corpuscular Hemoglobin 32.0, Mean Corpuscular Hemoglobin Concent 29.3 L, Red Cell Distribution Width 15.8 H, Neutrophils (%) (Auto) 61.2, Lymphocytes (%) (Auto) 20.2 L, Monocytes (%) (Auto) 12.0 H, Eosinophils (%) (Auto) 2.8, Basophils (%) (Auto) 0.7, Neutrophils # (Auto) 5.2, Lymphocytes # (Auto) 1.7, Monocytes # (Auto) 1.0 H, Eosinophils # (Auto) 0.2, Basophils # (Auto) 0.1 05/18/18 05:29 Red Blood Count 3.98 L, Mean Corpuscular Volume 109.3 H, Mean Corpuscular Hemoglobin 31.9, Mean Corpuscular Hemoglobin Concent 29.2 L, Red Cell Distribution Width 15.7 H, Calcium Level 8.7 L Microbiology Microbiology 05/17/18 Blood Culture, Received Pending 05/17/18 Blood Culture, Received Pending 05/17/18 Urine Culture, Received Pending GME ATTESTATION GME ATTESTATION My faculty preceptor for this patient encounter was Dr. Darrian Bee, and was physically present during the encounter and was fully available. All aspects of the patient interview, examination, medical decision making process, and medical care plan development were reviewed and approved by the faculty preceptor. The faculty preceptor is aware and concurs with the plan as stated in the body of this note and will attest to such by his/her cosignature. MAKENZIE PHAM DO May 18, 2018 11:54
[2018-05-18 22:00] VITALS: BP 105/51
[2018-05-19] MEDS: IPRATROPIUM 0.5MG/ALBUTEROL 2.5MG INH SOL UD 3ML (DUONEB)(J7620) NEB SCH ×6 (00:14→23:22)
[2018-05-19] MEDS: HEPARIN SOD (PORCINE) 5000 UNITS/ML VIAL SQ SCH ×3 (05:23→21:06)
[2018-05-19 06:00] VITALS: BP 134/67
[2018-05-19 06:04] LABS: BASO % 0.1 % (0.0-1.0); HEMATOCRIT 36.9 % (42.0-52.0); LYMPH # 0.4 10^3/uL (1.5-4.5); LYMPH % 6.3 % (24.0-44.0); MEAN CORPUSCULAR HEMOGLOBIN 31.2 pg (27.0-33.0); MEAN CORPUSCULAR HGB CONC 29.8 g/dl (32.0-36.5); MEAN CORPUSCULAR VOLUME 104.5 fl (80.0-96.0); MONO # 0.2 10^3/uL (0.0-0.8); MONO % 2.2 % (0.0-5.0); NEUTROPHILS # 6.2 10^3/uL (1.8-7.7); NEUTROPHILS % 89.9 % (36.0-66.0); PLATELET COUNT, AUTOMATED 300 10^3/uL (150-450); RED BLOOD COUNT 3.53 10^6/uL (4.30-6.10); WHITE BLOOD COUNT 6.9 10^3/uL (4.0-10.0)
[2018-05-19 06:31] LABS: CREATININE FOR GFR 5.45 MG/DL (0.70-1.30); GLOMERULAR FILTRATION RATE 10.8 (>35); MB/CK RELATIVE INDEX 8.57 (< OR =4); POTASSIUM SERUM 4.8 MEQ/L (3.5-5.1); TROPONIN I 0.13 NG/ML (< 0.10)
--- NOTE | 2018-05-19 06:36 | IPN ---
DATE OF SERVICE: 05/18/2018 SUBJECTIVE: The patient was seen and examined at the bedside today morning during hemodialysis procedure. He was tolerating the hemodialysis procedure well. He was much more awake today, but he is still not verbal. He is following a few commands. OBJECTIVE: Vital Signs: Temperature 97.6 degrees Fahrenheit. Blood pressure 121/58. Pulse 92. Respiratory rate 16. Saturating 94% on nasal cannula. Intake and Output: Urine output is not recorded. Weight on the bed scale is 85.7 kg. PHYSICAL EXAMINATION: General: Patient is more awake today as compared with yesterday. He follows commands and answers a few questions. Head and Neck Exam: Pupils are equally round and reactive to light. Mucous membranes are dry. Neck is supple. There is no jugular venous distention (JVD. Cardiovascular: S1 and S2, irregular heart rate. 1+ edema of all extremities. Respiratory: Decreased breath sounds at the bases. Abdomen: Soft. Obese. Positive bowel sounds. No organomegaly. Musculoskeletal: Bilateral multiple toe amputations were noted. Central Nervous System: Patient is more awake today as compared with yesterday. Follows a few commands. Moves bilateral upper extremities. LAB REVIEW: CBC showed a WBC of 8.5, hemoglobin 12.7, platelets 330. BMP showed sodium 141, potassium 5, chloride 106, bicarbonate 29, BUN 16, creatinine 7.6, calcium 8.7, troponin 0.15. MICROBIOLOGY: Blood cultures are negative so far. CURRENT INPATIENT MEDICATIONS: Patient's medications were all reviewed by me. He is currently on IV Cefepime. He was given IV normal saline boluses overnight. He is also on vancomycin with hemodialysis. He is getting nebulizations. He is on insulin sliding scale. He was also started on Solu-Medrol 40 mg every 12 hours. No other change in the medications today as compared with yesterday. ASSESSMENT AND PLAN: 1. End stage renal disease on hemodialysis. The patient's regular dialysis days are Thursday, Thursday, Thursday. He missed his dialysis yesterday. He is being dialyzed today. I will try to remove at least 2 kg of fluid as tolerated by his blood pressure. If needed, patient will get another session of hemodialysis tomorrow. 2. Acute hypercapnic respiratory failure. The patient was on BIPap at night. He was given steroids and nebulizations. Because of his wishes of DO NOT RESUSCITATE (DNR) and DO NOT INTUBATE (DNI), no further intervention was advised by the pulmonary team. His respiratory status is improving. Optimization of fluid status would also help improve his breathing. He is getting IV antibiotics for right lower lobe infiltrate. 3. Chronic diastolic congestive heart failure. The patient had very high BNP levels. He is being dialyzed. He usually is unable to tolerate aggressive fluid removal. His blood pressure drops during dialysis. If needed, patient will get another session of hemodialysis and fluid removal tomorrow. He still has significant edema. 4. 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 Hemoglobin is 12.7, which is optimal. No need of Aranesp administration at this point. 5. Urinary tract infection. Cultures are pending. Patient is currently on IV antibiotic which should adequately cover UTI as well.
[2018-05-19] MEDS: HumaLOG INSULIN (NovoLOG) PER UNIT SC SCH ×4 (10:35→21:00)
[2018-05-19] MEDS: PANTOPRAZOLE 40MG TAB (PROTONIX) PO SCH (10:35)
[2018-05-19] MEDS: methylPREDNISolone INJ 40 MG/1 ML VIAL (J2920) IV SCH ×2 (10:35→21:05)
[2018-05-19] MEDS: CEFEPIME HCL 1 GM in D5W MINI-BAG PLUS 50 ML IV SCH (10:35)
[2018-05-19] MEDS: MORPHINE 10MG/0.5ML ORAL CONCENTRATE SOLUTION U/D SL PRN (10:40)
[2018-05-19] MEDS ORDERED: HEPARIN 1,000 UNITS/ML 10ML VIAL (FOR RADIOLOGY& DIALYSIS ONLY) IV ONE (12:15)
[2018-05-19] MEDS ORDERED: HEPARIN 1,000 UNITS/ML 10ML VIAL (FOR RADIOLOGY& DIALYSIS ONLY) XX ONE (12:15)
[2018-05-19 13:12] LABS: MB/CK RELATIVE INDEX 5.93 (< OR =4); TROPONIN I 0.13 NG/ML (< 0.10)
[2018-05-19] MEDS: CLOPIDOGREL 75 MG TAB PO SCH (13:56)
[2018-05-19 14:00] VITALS: BP 111/51
[2018-05-19 14:50] LABS: VANCOMYCIN RANDOM 19.8 UG/ML
--- NOTE | 2018-05-19 14:59 | PHACANCOPD ---
PHARMACY VANCOMYCIN DOSING Pt Demographics Demographics Patient Age:82 , Weight:85.700 , Gender: male Adjusted Body Weight Date: 05/19/18, Adjusted Body Weight: Kg Vancomycin Vancomycin indication: PNEUMONIA Vancomycin Target Ranges: 15-20 mcg/ml Vancomycin Load Y/N: No Load Dose Date Time Vancomycin Load Dose: Date: Time: Vancomycin Dose Date: 05/19/18. Current Vancomycin Dose: Intermittent Dosing?: Yes Labs Micro Microbiology 05/17/18 Blood Culture - Preliminary, Resulted No growth after 24 hours . All specim... 05/17/18 Blood Culture - Preliminary, Resulted No growth after 24 hours . All specim... 05/17/18 Urine Culture - Final, Complete Creatinine Clearance Date:05/19/18. Creatinine Clearance: . Assessment and Plan Maintaining Current Dose?: No Reason for dose change: No Dose Change Pharmacist Note Pharmacist Note Date: 05/19/18. Pharmacist note: Day #3 empiric IV vancomycin therapy for the treatment of pneumonia. The patient received 1g in the ER on 05/17/18 and then received 750mg IV after yesterdays dialysis session. The patient is being dialyzed today. A random level drawn with this mornings labs resulted at 19.8mcg/ml. A 500mg dose has been ordered to be given today after dialysis. We will continue to monitor ongoing dialysis sessions to determine future dosing. ERICKA UP [facility] May 19, 2018 14:59
[2018-05-19] MEDS ORDERED: VANCOMYCIN HCL 500 MG in D5W MINI-BAG PLUS 100 ML IV ONE (16:00)
--- NOTE | 2018-05-19 16:24 | IPNPDOC ---
Subjective Date Seen The patient was seen on 05/19/18. Subjective Chief Complaint/HPI Patient seen and examined at bedside. Was very pleasant today and is mentating much more appropriately. Was answering questions appropriately and speaking full sentences.Was oriented to person and , but not place. Stated he was on the operating table. Denies pain or discomfort anywhere. Admitted to feeling hungry. Nurses stated he is eating and drinking better. He had oatmeal today and was having some soup/some sips of water when I came to interview him. Nursing aid also concerned that patient chokes when eating more solid foods and thinks his diet should be changed. He has some swallowing difficulties. However, earlier today, it was reported to me by nursing staff that patient had an episode of unresponsiveness at dialysis. Dialysis nurse had taken fluid off, he became hypotensive, then she had placed fluid back into him, and he became alert again. Constitutional: Denies: Chills, Fever Skin: Denies: Rash Pulmonary: Reports: Cough; Denies: Dyspnea Cardiovascular: Denies: Chest Pain Gastrointestinal: Denies: Nausea, Vomiting, Abdominal Pain, Diarrhea Musculoskeletal: Denies: Joint Pain, Muscle Pain Psych: Reports: Mood Normal Objective Physical Examination General Exam: Positive: Alert, Cooperative, No Acute Distress, Other (awake and alert; oriented to person, , but not place. speaking full sentences and answering questions logically/appropriately) Eye Exam: Positive: Conjunctiva & lids normal, Other Eye Symptoms (eyes are open;); Negative: Sclera icteric ENT Exam: Positive: Atraumatic Neck Exam: Positive: Supple; Negative: JVD Chest Exam: Positive: Normal air movement, Rhonchi (scattered), Other (limited anterior chest exam. ); Negative: Wheezing Heart Exam: Positive: Rate Normal, Irregular Rhythm, Normal S1, Normal S2; Negative: Murmurs Abdomen Exam: Positive: Normal bowel sounds, Soft; Negative: Tenderness, Mass Extremity Exam: Positive: Edema ((+)Upper extremity swelling bilaterally. Very minimal LE edema bilaterally; amputations of toes noted.) Skin Exam: Positive: Other skin issue ((+)ecchymoses of certain regions of upper extremities bilaterally ); Negative: Rash Neuro Exam: Positive: Normal Speech Psych Exam: Positive: Mood NL Assessment /Plan Problems (1) Aspiration pneumonia Status: Acute Problem Text: 05/19/18: It seems patient may have RLL infiltrate from possible aspiration. Is being covered with empiric antibiotic therapy until blood cx results are back for ~48-72 hours. On cefepime Day 2 and vancomycin Day 3. Pharmacy managing renal dosing of vancomycin and monitoring vanc/trough levels. Patient had vancomycin during dialysis today and it was reported only a fraction of it would be dialyzed out. So far, blood cx show NGTD x 24 hours. It is reported by nursing staff that patient may be choking on food, having a bit of dysphagia. Thus, I have also ordered a speech & swallow evaluation along with a Pie Baker Consult. An occupational therapy consult is already in place. (2) Altered mental status Status: Acute Response to Treatment: Improving Problem Text: 05/19/18: Much improved from yesterday. Mentating more appropriately today. However, only oriented to person not to place nor time. Will reevaluate mental status tomorrow. Patient's roxanol has been d/ce'd today. 05/18/18: Multifactorial. Likely secondary to septic shock with UTI and possible RLL pneumonia, as well as hypoperfusion. Was previously hypoglycemic as well. Mentation a bit improved today. Patient was able to open his eyes and keep eyes opened. Was able to mumble/talk a bit even though not fully formed sentences. Was able to nod yes/no to questions. This improvement was seen earlier this AM during dialysis. Continue current management with empiric IV antibiotic therapy with cefepime Day 1 and vancomycin Day 2. Will likely discontinue patient's roxanol as it can also cause patient to have feel weak, dizzy, and cause low BP. (3) Acute on chronic respiratory failure with hypoxia and hypercapnia Status: Acute Response to Treatment: Stable Problem Text: 05/19/18: No desaturations overnight. Continue 2L NC O2 supplemental therapy, IV solumedrol, and duoneb QID. 05/18/18: No desaturations overnight. Continue supplemental O2 therapy with 2L NC. Continue IV solumedrol 40 mg q12h, duoneb 3 mL Rq4h nebulizer. (4) Hypoxia Status: Acute Response to Treatment: Improving (5) Pulmonary hypertension Status: Chronic Problem Text: 05/19/18: Please note that patient has hx of Severe Pulmonary HTN shown on echocardiogram from 04/2017. It is imperative that patient not be placed on nonrebreather, BIPAP, or intubated as this would potentiate hypoventilation and hypercapnia for patient due to his hx. (6) COPD (chronic obstructive pulmonary disease) Status: Chronic Response to Treatment: Stable, Improving Problem Text: 05/18/18: Acute exacerbation. Had hypercapnia and hypoxia. Patient's O2 saturations have improved on O2 via nasal cannula. Hypoxia could also be secondary likely to fluid overload. Continue nebulizer therapy and solumedrol. (7) Hypoglycemia Status: Acute Response to Treatment: Improving Problem Text: 05/19/18: Glucose was 309 this morning at 5:40 AM. Patient is eating and drinking better. Have added FS checks at and QHS with sliding scale insulin coverage. Have placed an order for patient to have FS checked 2 hours after a meal if less than 1/2 of patient's food tray is left untouched. Will continue to monitor FS. May add back basal insulin tomorrow if patient maintains eating meals and if he does not become hypoglycemic. Was on basaglar 10 units SC QHS. 05/18/18: Glucose was 102 this morning. (8) Diabetes mellitus type 2 in obese Status: Chronic Problem Text: 05/19/18: Last HgbA1C was 6.9 on 12/28/17. Will recheck A1C. (9) Hypotension Status: Acute Response to Treatment: Stable Problem Text: 05/19/18: Became hypotensive during dialysis earlier today. However, has maintained blood pressures. Will continue to monitor closely. Will encourage oral intake up to 1800 mL/24hr. Of note, it is also possible that patient has some underlying adrenal insufficiency from chronic use of methylprednisone during admissions for tx of COPD exacerbations/hypoxia. When patient is tapered down to 5 mg prednisone daily, I will recheck his cortisol and ACTH level at the appropriate time. 05/18/18: Hypotensive this AM. However, tolerated dialysis without issues. (10) Protein malnutrition Status: Chronic Problem Text: 05/19/18: Have ordered Pie Baker Consult. 05/18/18: Total protein was 5.7 (L). Will encourage oral intake when patient mentating more appropriately. In addition, will look into a Dietary/Nutrition consult. (11) End-stage renal disease on hemodialysis Status: Chronic Response to Treatment: Stable Problem Text: 05/19/18: Is status-post hemodialysis yesterday and today (05/18 and 05/19). 05/18/18: Nephrology is managing. Appreciate recommendations and input. Had dialysis today--probably because he missed dialysis yesterday due to being lethargic/obtunded at dialysis center. Is on MWF schedule usually however. (12) Elevation of cardiac enzymes Status: Resolved Problem Text: 05/19/18: Troponin was at 0.13 (H) today and yesterday. Likely slightly elevated due to renal impairment and congestive heart. Does not likely indicate ischemic injury. 05/18/18: Troponins are trending down. Likely secondary to hypoperfusion and demand ischemia in setting of septic shock. Will monitor one more set of 3 troponins. (13) Urinary tract infection Status: Resolved Problem Text: 05/19/18: Remains afebrile. Mentation much improved. Urine culture negative. Does not likely have UTI. Most likely infection is a aspiration pneumonia of RLL. 05/18/18: Afebrile. Mentation improving. Continue broad spectrum antibiotics for now. (14) Septic shock Status: Resolved Problem Text: 05/19/18: Resolved. Is responsive to fluids and is no longer septic at this point. 05/18/18: Improving. BP was hypotensive this morning. However, patient's been able to maintain BP. (15) Do not resuscitate status Status: Chronic Problem Text: 05/18/18: Dr. Bee had discussion with patient's family today and they have accepted patient's DNR/DNI status. (16) Ro-bec-[id number] resuscitation status Status: Chronic Problem Text: 05/18/18: Verified with patient's family today by Dr. Bee. (17) Chronic diastolic (congestive) heart failure Status: Chronic Problem Text: 05/19/18: Had dialysis today. 05/18/18: Had dialysis today. Beta blockers being held due to hypotension. Not on any diuretics. No signs of acute exacerbation currently. (18) Chronic gout Status: Chronic Problem Text: 05/18/18: Secondary to ESRD. Hold uloric until mental status improves enough for patient to take medication orally. (19) Coronary artery disease Status: Chronic Problem Text: 05/18/18: status-post CABG. Monitor one more set of troponins. Continue statin and plavix when patient able to tolerate PO. Plan/VTE VTE Prophylaxis Ordered?: Yes (heparin 5000 units q8h SQ) Disposition DNR/DNI. Pending clinical improvement and studies: speech & swallow eval as well as echocardiogram as well as Pie Baker Consult. VS, I&O, 24H, Fishbone Vital Signs/I&O Vital Signs Date Time Temp Pulse Resp B/P (MAP) Pulse Ox O2 Delivery O2 Flow Rate FiO2 05/19/18 14:00 97.6 91 16 111/51 (71) 96 2.0 05/17/18 21:58 Room Air 05/17/18 20:43 40 I&O- Last 24 Hours up to 6 AM 05/19/18 06:00 Intake Total 150 ml Output Total 1500 ml Balance -1350 ml Laboratory Data 24H LABS Laboratory Tests 2 05/18/18 16:26: Bedside Glucose (Misc Panel) 118H 05/18/18 20:17: Bedside Glucose (Misc Panel) 221H 05/19/18 05:40: Immature Granulocyte % (Auto) 1.5, White Blood Count 6.9, Red Blood Count 3.53L, Hemoglobin 11.0L, Hematocrit 36.9L, Mean Corpuscular Volume 104.5H, Mean Corpuscular Hemoglobin 31.2, Mean Corpuscular Hemoglobin Concent 29.8L, Red Cell Distribution Width 15.4H, Platelet Count 300, Neutrophils (%) (Auto) 89.9H, Lymphocytes (%) (Auto) 6.3L, Monocytes (%) (Auto) 2.2, Eosinophils (%) (Auto) 0.0, Basophils (%) (Auto) 0.1, Neutrophils # (Auto) 6.2, Lymphocytes # (Auto) 0.4L, Monocytes # (Auto) 0.2, Eosinophils # (Auto) 0.0, Basophils # (Auto) 0.0, Nucleated Red Blood Cells % (auto) 0.3H, Anion Gap 9, Glomerular Filtration Rate 10.8L, Blood Urea Nitrogen 20H, Creatinine 5.45H, Sodium Level 134L, Potassium Level 4.8, Chloride Level 98, Carbon Dioxide Level 27, Calcium Level 8.0L, Total Creatine Kinase 21L, Creatine Kinase MB 2.0, Creatine Kinase MB Relative Index 8.57H, Troponin I 0.13H, Random Vancomycin Level 19.8 05/19/18 12:00: Total Creatine Kinase 27L, Creatine Kinase MB 2.0, Creatine Kinase MB Relative Index 5.93H, Troponin I 0.13H 05/19/18 13:41: Bedside Glucose (Misc Panel) 183H CBC/BMP Laboratory Tests 05/19/18 05:40 Red Blood Count 3.53 L, Mean Corpuscular Volume 104.5 H, Mean Corpuscular Hemoglobin 31.2, Mean Corpuscular Hemoglobin Concent 29.8 L, Red Cell Distribution Width 15.4 H, Neutrophils (%) (Auto) 89.9 H, Lymphocytes (%) (Auto) 6.3 L, Monocytes (%) (Auto) 2.2, Eosinophils (%) (Auto) 0.0, Basophils (%) (Auto) 0.1, Neutrophils # (Auto) 6.2, Lymphocytes # (Auto) 0.4 L, Monocytes # (Auto) 0.2, Eosinophils # (Auto) 0.0, Basophils # (Auto) 0.0, Calcium Level 8.0 L, Total Creatine Kinase 21 L Microbiology Microbiology 05/17/18 Blood Culture - Preliminary, Resulted No growth after 24 hours . All specim... 05/17/18 Blood Culture - Preliminary, Resulted No growth after 24 hours . All specim... 05/17/18 Urine Culture - Final, Complete GME ATTESTATION GME ATTESTATION My faculty preceptor for this patient encounter was Dr. Darrian Bee, and was physically present during the encounter and was fully available. All aspects of the patient interview, examination, medical decision making process, and medical care plan development were reviewed and approved by the faculty preceptor. The faculty preceptor is aware and concurs with the plan as stated in the body of this note and will attest to such by his/her cosignature. MAKENZIE PHAM DO May 19, 2018 16:24
[2018-05-19] MEDS: **VANCO AFTER HD** MISC XX SCH (16:56)
[2018-05-19 18:49] LABS: MB/CK RELATIVE INDEX 8.64 (< OR =4); TROPONIN I 0.1 NG/ML (< 0.10)
[2018-05-19 20:00] VITALS: BP 145/58
[2018-05-20] MEDS: IPRATROPIUM 0.5MG/ALBUTEROL 2.5MG INH SOL UD 3ML (DUONEB)(J7620) NEB SCH ×6 (04:00→23:24)
[2018-05-20] MEDS: HEPARIN SOD (PORCINE) 5000 UNITS/ML VIAL SQ SCH ×3 (05:19→20:14)
[2018-05-20 06:00] VITALS: BP 145/56
[2018-05-20 06:00] LABS: BASO % 0.1 % (0.0-1.0); HEMATOCRIT 34.3 % (42.0-52.0); HEMOGLOBIN 10.5 g/dl (13.5-17.5); LYMPH # 0.4 10^3/uL (1.5-4.5); LYMPH % 2.4 % (24.0-44.0); MEAN CORPUSCULAR HEMOGLOBIN 31.9 pg (27.0-33.0); MEAN CORPUSCULAR HGB CONC 30.6 g/dl (32.0-36.5); MEAN CORPUSCULAR VOLUME 104.3 fl (80.0-96.0); MONO # 0.3 10^3/uL (0.0-0.8); NEUTROPHILS # 15.2 10^3/uL (1.8-7.7); NEUTROPHILS % 94.4 % (36.0-66.0); PLATELET COUNT, AUTOMATED 302 10^3/uL (150-450); RED BLOOD COUNT 3.29 10^6/uL (4.30-6.10); WHITE BLOOD COUNT 16.1 10^3/uL (4.0-10.0)
[2018-05-20 06:16] LABS: CALCIUM LEVEL 8.2 MG/DL (8.8-10.2); CREATININE FOR GFR 4.75 MG/DL (0.70-1.30); GLOMERULAR FILTRATION RATE 12.6 (>35); POTASSIUM SERUM 4.2 MEQ/L (3.5-5.1)
[2018-05-20 06:28] LABS: HEMOGLOBIN A1c 6.4 %
--- NOTE | 2018-05-20 06:45 | ECHO ---
DATE OF STUDY: 05/19/2018 REFERRING PHYSICIAN: Dr. Lawton INDICATION: Abnormal heart sounds (irregular heart sounds on auscultation), cardiac rhythm unspecified. HEIGHT: 162 cm. WEIGHT: 85.7 kg. 2-D MEASUREMENTS: Aortic annulus: 2.2 cm Aortic root: 3.1 cm Left atrium: 3.2 cm Ventricular septum: 1.23 cm Posterior wall: 1.22 cm Left ventricle diastole: 4.9 cm Inferior vena cava: 1.5 cm DOPPLER MEASUREMENTS: Aortic valve velocity: 160 cm/sec LVOT velocity: 85.0 cm/sec LVOT VTI: 19.1 cm Mild mitral regurgitation Mitral E velocity: 68.6 cm/sec Mitral A velocity: 143 cm/sec Mild tricuspid regurgitation Estimated right ventricular systolic pressure 36 mmHg assuming a right atrial pressure of 5 mmHg Pulmonary artery systolic pressure: 38 mmHg MITRAL ANNULAR TISSUE DOPPLER: E prime septal: 4.2 cm/sec E prime lateral: 5.7 cm/sec DESCRIPTION: The rhythm was sinus. No pericardial effusion. Image quality was fair. This was a 2-D, M-mode, color flow Doppler and pulse wave Doppler examination and included mitral annular tissue Doppler. CONCLUSIONS: 1. Very mild concentric left ventricle hypertrophy. Normal regional LV wall motion and wall thickening. Normal LV systolic function. LVEF 60% by visual estimate. Grade 1 LV diastolic dysfunction (impaired relaxation filling pattern). 2. Moderate aortic valve sclerosis of a 3-cuspid aortic valve. Very mild reduction in mobility of the left aortic cusp. No aortic stenosis. No aortic regurgitation. 3. Moderate mitral annular calcification. Mild mitral regurgitation. No mitral stenosis. 4. Suggestive of mild elevation of pulmonary artery systolic pressure and estimated right ventricle systolic pressure.
[2018-05-20] MEDS: PANTOPRAZOLE 40MG TAB (PROTONIX) PO SCH (08:21)
[2018-05-20] MEDS: HumaLOG INSULIN (NovoLOG) PER UNIT SC SCH ×4 (08:21→21:40)
[2018-05-20] MEDS: CEFEPIME HCL 1 GM in D5W MINI-BAG PLUS 50 ML IV SCH (08:21)
--- NOTE | 2018-05-20 09:28 | IPN ---
DATE OF SERVICE: 05/19/2018 SUBJECTIVE: The patient was seen and examined at the bedside today morning. He is more awake and alert today as compared with yesterday. He was dialyzed yesterday and 1500 mL of fluid was removed. Patient is afebrile and hemodynamically stable at this point. He is unable to provider any reliable review of systems. OBJECTIVE: Vital Signs: Temperature 99 degrees Fahrenheit. Blood pressure 134/67. Pulse 84. Respiratory rate 18. Saturating 94% on 2 liters via nasal cannula. Intake and Output: Ultrafiltration with hemodialysis was 1.5 liter yesterday. Weight in the bed scale was 85.7 kg yesterday. Weight in the bed scale is not available today. PHYSICAL EXAMINATION: General: Patient is awake, alert, oriented time one. Laying in bed, no apparent distress. Wearing nasal cannula. Head and Neck Exam: Extraocular muscles intact. Pupils are equally round and reactive to light. Mucous membranes are moist. Neck is supple. There is no jugular venous distention (JVD). Cardiovascular: S1 and S2, irregular heart rate. Trace edema of the bilateral lower extremities. 1+ edema of the bilateral upper extremities. Respiratory: Decreased breath sounds at the bases. Patient has poor inspiratory effort. Abdomen: Soft. Obese. Positive bowel sounds. No organomegaly. No organomegaly. 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 Upper extremities have 1+ pitting edema. Central Nervous System: Patient is awake, alert, oriented times one, laying in bed. Follows commands. LAB REVIEW: CBC showed a WBC of 6.9, hemoglobin 11, platelets 300. BMP showed sodium 134, potassium 4.8, chloride 98, bicarbonate 27, BUN 20, creatinine 5.4, troponin 0.13. MICROBIOLOGY: Blood cultures are negative so far. Urine culture is also negative. CURRENT INPATIENT MEDICATIONS: Patient's medications were all reviewed by me. Vancomycin has been changed to 500 mg IV one dose and rest of the dose is being managed by pharmacy. Morphine dose has been decreased. ASSESSMENT AND PLAN: 1. End stage renal disease on hemodialysis. The patient's regular dialysis days are Thursday, Thursday, Thursday. I will try to dialyze him again today according to his regular schedule and I will try to remove 1-1/2 to 2 liters of fluid again as tolerated by his blood pressure. 2. Chronic diastolic congestive heart failure. Patient still has a significant amount of upper extremity edema. Lower extremities have no edema. He is unable to tolerate much ultrafiltration because his blood pressure dropped. As mentioned above, I will try to dialyze him and remove more fluid. 3. Health care associated pneumonia. Patient is currently on vancomycin and cefepime, dose is adequate for his renal function. 4. Anemia and end-stage renal disease. Hemoglobin is 11 which is optimal at this point. 5. Acute chronic obstructive pulmonary artery disease (COPD) exacerbation. Patient is on nebulizations, steroids, and antibiotics. His breathing is significantly better. He is comfortable on nasal cannula at 2 liters which is his chronic requirement.
[2018-05-20] MEDS: methylPREDNISolone INJ 40 MG/1 ML VIAL (J2920) IV SCH ×2 (10:39→20:15)
--- NOTE | 2018-05-20 10:55 | NUR ---
Pt w/ moderate oropharyngeal phase dysphagia. Recommend pureed solids and nectar thick liquids. Please position upright and assist w/ meal set-up and intake prn. Built-up utensils and mugs please. Addendum: 05/20/18 at 1056 by MELISSA SMITH [facility] SP Amended: Links added.
[2018-05-20] MEDS: CLOPIDOGREL 75 MG TAB PO SCH (13:25)
[2018-05-20] MEDS: **VANCO AFTER HD** MISC XX SCH (14:21)
[2018-05-20 14:45] VITALS: BP 130/59
--- NOTE | 2018-05-20 17:15 | IPNPDOC ---
Subjective Date Seen The patient was seen on 05/20/18. Subjective Chief Complaint/HPI Patient seen and examined at bedside. According to nursing staff, eating very well and mentating appropriately. Very pleasant in conversation. Denies fevers, chills, chest pain, SOB, pain anywhere. States he is feeling pretty good. Denies any acute complaints. Oriented to person and place. States he is in the hospital. Was not oriented to the time nor the president of the [place] Speech and swallow evaluation performed earlier today and echocardiogram performed yesterday. Constitutional: Denies: Chills, Fever Pulmonary: Reports: Cough; Denies: Dyspnea Cardiovascular: Denies: Chest Pain Gastrointestinal: Denies: Abdominal Pain Musculoskeletal: Denies: Joint Pain, Muscle Pain Neurological: Denies: Weakness Psych: Reports: Mood Normal Objective Physical Examination General Exam: Positive: Alert, Cooperative, No Acute Distress, Other (awake and alert; oriented to person, first name, last name, place (hospital), but not . speaking full sentences and answering questions logically/appropriately) Eye Exam: Positive: Conjunctiva & lids normal; Negative: Sclera icteric ENT Exam: Positive: Atraumatic Neck Exam: Positive: Supple; Negative: JVD Chest Exam: Positive: Clear to auscultation (in upper lung scott although diminished since no good inspiratory/expiratory effort; decreased breath sounds at bases bilaterally), Normal air movement, Other (limited anterior chest exam. ); Negative: Wheezing Heart Exam: Positive: Rate Normal, Regular Rhythm, Normal S1, Normal S2; Negative: Murmurs Abdomen Exam: Positive: Normal bowel sounds, Soft; Negative: Tenderness, Mass Extremity Exam: Positive: Edema ((+)1 upper extremity swelling bilaterally improved from prior. No LE edema bilaterally; amputations of toes noted.) Skin Exam: Positive: Other skin issue ((+)ecchymoses of certain regions of upper extremities bilaterally ); Negative: Rash Neuro Exam: Positive: Normal Speech Psych Exam: Positive: Mood NL Assessment /Plan Problems (1) Aspiration pneumonia Status: Acute Problem Text: 05/20/18: Has remained afebrile. WBC has been 16.1 (H), however, patient is on solumedrol. Improving clinically. Has cough still. On day 3 of cefepime and day 4 of vancomycin. X-rays recently and prior have been reviewed suggesting RLL infiltrate most likely consistent with an aspiration pneumonia. Have encourage nursing staff to keep patient upright at time of feedings with both meals and liquids. Speech & Swallow eval performed this morning and recommended nectar thickened pureed diet. Blood cx show NGTD x 48 hrs. If blood cx still negative at 72 hours, will switch to oral cefdinir from cefepime, d/c vancomycin, and see if patient can be be discharged back to the [facility] tomorrow. OT on board. 05/19/18: It seems patient may have RLL infiltrate from possible aspiration. Is being covered with empiric antibiotic therapy until blood cx results are back for ~48-72 hours. On cefepime Day 2 and vancomycin Day 3. Pharmacy managing renal dosing of vancomycin and monitoring vanc/trough levels. Patient had vancomycin during dialysis today and it was reported only a fraction of it would be dialyzed out. So far, blood cx show NGTD x 24 hours. It is reported by nursing staff that patient may be choking on food, having a bit of dysphagia. Thus, I have also ordered a speech & swallow evaluation along with a Keyboarding Teacher Consult. An occupational therapy consult is already in place. (2) Right lower lobe pneumonia Status: Acute Problem Text: 05/20/18: As stated above as per assessment #1. (3) Altered mental status Status: Resolved Response to Treatment: Improving Problem Text: 05/20/18: Mental status appropriate today. Conversing appropriately. Oriented to person and place, but not to or president of [place] Overall, mental status much improved. 05/19/18: Much improved from yesterday. Mentating more appropriately today. However, only oriented to person not to place nor time. Will reevaluate mental status tomorrow. Patient's roxanol has been d/ce'd today. 05/18/18: Multifactorial. Likely secondary to septic shock with UTI and possible RLL pneumonia, as well as hypoperfusion. Was previously hypoglycemic as well. Mentation a bit improved today. Patient was able to open his eyes and keep eyes opened. Was able to mumble/talk a bit even though not fully formed sentences. Was able to nod yes/no to questions. This improvement was seen earlier this AM during dialysis. Continue current management with empiric IV antibiotic therapy with cefepime Day 1 and vancomycin Day 2. Will likely discontinue patient's roxanol as it can also cause patient to have feel weak, dizzy, and cause low BP. (4) Acute on chronic respiratory failure with hypoxia and hypercapnia Status: Acute Response to Treatment: Stable Problem Text: 05/20/18: No desaturations overnight. Have decreased IV solumedrol from 40 mg BID to 30 mg BID. Continue O2 via 2L NC and duoneb QID. 05/19/18: No desaturations overnight. Continue 2L NC O2 supplemental therapy, IV solumedrol, and duoneb QID. 05/18/18: No desaturations overnight. Continue supplemental O2 therapy with 2L NC. Continue IV solumedrol 40 mg q12h, duoneb 3 mL Rq4h nebulizer. (5) Hypoxia Status: Acute Response to Treatment: Improving (6) Pulmonary hypertension Status: Chronic Problem Text: 05/20/18: Echocardiogram performed yesterday 05/19/17 had shown very mild concentric LVH, normal region LV wall motion and wall thickening, normal LV systolic function, LVEF 60% by visual estimate, grade 1 LV diastolic dysfunction (impaired relaxation filling pattern), moderate aortic valve sclerosis of a 3- cuspid aortic valve, very mild reduction in mobility of the L aortic cusp, no aortic stenosis, no aortic regurgitation, moderate mitral annular calcification, mild mitral regurgitation, no mitral stenosis, suggestive of mild elevation of pulmonary artery systolic pressure and estimated R ventricle systolic pressure (vs. Echocardiogram findings in 04/2017 showing severe pulmonary HTN). However, my suspicion is that patient still has pulmonary artery HTN. Was dialysed two days in a row for the last 2 days. Perhaps, this could lead to a less severe reading of pulmonary artery systolic pressure as patient had 1500 mL of fluid removed from dialysis yesterday. 05/19/18: Please note that patient has hx of Severe Pulmonary HTN shown on echocardiogram from 04/2017. It is imperative that patient not be placed on nonrebreather, BIPAP, or intubated as this would potentiate hypoventilation and hypercapnia for patient due to his hx. (7) COPD (chronic obstructive pulmonary disease) Status: Chronic Response to Treatment: Stable, Improving Problem Text: 05/20/18: Resolving. Will be tapering down solumedrol until can switch patient to PO prednisone 5 mg daily (for prevention of adrenal insufficiency). Continue nebs and supplemental O2 therapy to keep saturations between 88-92% (to prevent hypercarbia). 05/18/18: Acute exacerbation. Had hypercapnia and hypoxia. Patient's O2 saturations have improved on O2 via nasal cannula. Hypoxia could also be secondary likely to fluid overload. Continue nebulizer therapy and solumedrol. (8) Hypoglycemia Status: Acute Response to Treatment: Improving Problem Text: 05/20/18: So far, his FS have been adequate and patient has not had any hypoglycemia. Will continue Lispro insulin sliding scale, monitoring FS at AC and QHS. Will continue checking FS 2 hours after a meal if less than 1/2 of food tray is untouched. In addition, before dialysis sessions, I will place order for nursing staff to check FS in order to prevent patient from going into dialysis being in hypoglycemic state. 05/19/18: Glucose was 309 this morning at 5:40 AM. Patient is eating and drinking better. Have added FS checks at AC and QHS with sliding scale insulin coverage. Have placed an order for patient to have FS checked 2 hours after a meal if less than 1/2 of patient's food tray is left untouched. Will continue to monitor FS. May add back basal insulin tomorrow if patient maintains eating meals and if he does not become hypoglycemic. Was on basaglar 10 units SC QHS. 05/18/18: Glucose was 102 this morning. (9) Diabetes mellitus type 2 in obese Status: Chronic Problem Text: 05/20/18: HgbA1C today was 6.4 and in well controlled range. Will continue insulin sliding scale coverage for now. Will hold off on basal insulin until patient goes back to [facility] for now. 05/19/18: Last HgbA1C was 6.9 on 12/28/17. Will recheck A1C. (10) Hypotension Status: Acute Response to Treatment: Stable Problem Text: 05/20/18: No more hypotensive BP readings documented or reported to me. Will continue to closely monitor. Continue 1800 mL/24 hr fluid restriction, but encourage oral hydration up until this amount. 05/19/18: Became hypotensive during dialysis earlier today. However, has maintained blood pressures. Will continue to monitor closely. Will encourage oral intake up to 1800 mL/24hr. Of note, it is also possible that patient has some underlying adrenal insufficiency from chronic use of methylprednisone during admissions for tx of COPD exacerbations/hypoxia. When patient is tapered down to 5 mg prednisone daily, I will recheck his cortisol and ACTH level at the appropriate time. 05/18/18: Hypotensive this AM. However, tolerated dialysis without issues. (11) Protein malnutrition Status: Chronic Problem Text: 05/20/18: Has been recommended pureed nectar thickened diet, which we have placed him on. 05/19/18: Have ordered Keyboarding Teacher Consult. 05/18/18: Total protein was 5.7 (L). Will encourage oral intake when patient mentating more appropriately. In addition, will look into a Dietary/Nutrition consult. (12) End-stage renal disease on hemodialysis Status: Chronic Response to Treatment: Stable Problem Text: 05/20/18: Nephrology following and managing. Appreciate input. Will likely have next dialysis session tomorrow. Is regularly on a MWF schedule. Will make sure to check FS prior to dialysis as well as BP. 05/19/18: Is status-post hemodialysis yesterday and today (05/18 and 05/19). 05/18/18: Nephrology is managing. Appreciate recommendations and input. Had dialysis today--probably because he missed dialysis yesterday due to being lethargic/obtunded at dialysis center. Is on MWF schedule usually however. (13) Elevation of cardiac enzymes Status: Resolved Problem Text: 05/20/18: Last troponin level was 0.10 at 17:46 yesterday. Trended down which is a good sign. As stated below, was likely elevated from renal dysfunction and congestive heart failure. Ischemic injury to heart unlikely. Echocardiogram was also reassuring that was performed yesterday. 05/19/18: Troponin was at 0.13 (H) today and yesterday. Likely slightly elevated due to renal impairment and congestive heart. Does not likely indicate ischemic injury. 05/18/18: Troponins are trending down. Likely secondary to hypoperfusion and demand ischemia in setting of septic shock. Will monitor one more set of 3 troponins. (14) Do not resuscitate status Status: Chronic Problem Text: 05/20/18: Dr. 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 05/18/18: Dr. Bee had discussion with patient's family today and they have accepted patient's DNR/DNI status. (15) [id number] resuscitation status Status: Chronic Problem Text: 05/18/18: Verified with patient's family today by Dr. Bee. (16) Chronic diastolic (congestive) heart failure Status: Chronic Problem Text: 05/20/18: Confirmed on echocardiogram from 05/19/18 that patient has diastolic CHF grade 1 LV diastolic dysfunction (impaired relaxation filling pattern) with normal LVEF of 60%, normal LV systolic function. 05/19/18: Had dialysis today. 05/18/18: Had dialysis today. Beta blockers being held due to hypotension. Not on any diuretics. No signs of acute exacerbation currently. (17) Chronic gout Status: Chronic Problem Text: 05/18/18: Secondary to ESRD. Hold uloric until mental status improves enough for patient to take medication orally. (18) Coronary artery disease Status: Chronic Problem Text: 05/18/18: status-post CABG. Monitor one more set of troponins. Continue statin and plavix when patient able to tolerate PO. (19) Urinary tract infection Status: Resolved Problem Text: 05/19/18: Remains afebrile. Mentation much improved. Urine culture negative. Does not likely have UTI. Most likely infection is a aspiration pneumonia of RLL. 05/18/18: Afebrile. Mentation improving. Continue broad spectrum antibiotics for now. (20) Septic shock Status: Resolved Problem Text: 05/19/18: Resolved. Is responsive to fluids and is no longer septic at this point. 05/18/18: Improving. BP was hypotensive this morning. However, patient's been able to maintain BP. Plan/VTE VTE Prophylaxis Ordered?: Yes (heparin 5000 units q8h SQ) VS, I&O, 24H, Fishbone Vital Signs/I&O Vital Signs Date Time Temp Pulse Resp B/P (MAP) Pulse Ox O2 Delivery O2 Flow Rate FiO2 05/20/18 14:45 97.3 102 17 130/59 (82) 93 2.0 05/17/18 21:58 Room Air 05/17/18 20:43 40 I&O- Last 24 Hours up to 6 AM 05/20/18 06:00 Intake Total 650 ml Output Total 1300 ml Balance -650 ml Laboratory Data 24H LABS Laboratory Tests 2 05/19/18 16:44: Bedside Glucose (Misc Panel) 112H 05/19/18 17:46: Total Creatine Kinase 22L, Creatine Kinase MB 2.0, Creatine Kinase MB Relative Index 8.64H, Troponin I 0.10# 05/19/18 20:18: Bedside Glucose (Misc Panel) 125H 05/20/18 05:16: Immature Granulocyte % (Auto) 1.1, White Blood Count 16.1H, Red Blood Count 3.29L, Hemoglobin 10.5L, Hematocrit 34.3L, Mean Corpuscular Volume 104.3H, Mean Corpuscular Hemoglobin 31.9, Mean Corpuscular Hemoglobin Concent 30.6L, Red Cell Distribution Width 15.3H, Platelet Count 302, Neutrophils (%) (Auto) 94.4H, Lymphocytes (%) (Auto) 2.4L, Monocytes (%) (Auto) 2.0, Eosinophils (%) (Auto) 0.0, Basophils (%) (Auto) 0.1, Neutrophils # (Auto) 15.2H, Lymphocytes # (Auto) 0.4L, Monocytes # (Auto) 0.3, Eosinophils # (Auto) 0.0, Basophils # (Auto) 0.0, Nucleated Red Blood Cells % (auto) 0.2H, Anion Gap 10, Glomerular Filtration Rate 12.6L, Estimated Mean Plasma Glucose 137H, Hemoglobin A1c 6.4, Blood Urea Nitrogen 20H, Creatinine 4.75H, Sodium Level 135L, Potassium Level 4.2, Chloride Level 98, Carbon Dioxide Level 27, Calcium Level 8.2L 05/20/18 11:43: Bedside Glucose (Misc Panel) 275H CBC/BMP Laboratory Tests 05/20/18 05:16 Red Blood Count 3.29 L, Mean Corpuscular Volume 104.3 H, Mean Corpuscular Hemoglobin 31.9, Mean Corpuscular Hemoglobin Concent 30.6 L, Red Cell Distribution Width 15.3 H, Neutrophils (%) (Auto) 94.4 H, Lymphocytes (%) (Auto) 2.4 L, Monocytes (%) (Auto) 2.0, Eosinophils (%) (Auto) 0.0, Basophils (%) (Auto) 0.1, Neutrophils # (Auto) 15.2 H, Lymphocytes # (Auto) 0.4 L, Monocytes # (Auto) 0.3, Eosinophils # (Auto) 0.0, Basophils # (Auto) 0.0, Calcium Level 8.2 L Microbiology Microbiology 05/17/18 Blood Culture - Preliminary, Resulted No Growth after 48 hours. All Specime... 05/17/18 Blood Culture - Preliminary, Resulted No Growth after 48 hours. All Specime... 05/17/18 Urine Culture - Final, Complete GME ATTESTATION GME ATTESTATION My faculty preceptor for this patient encounter was Dr. Darrian Bee, and was physically present during the encounter and was fully available. All aspects of the patient interview, examination, medical decision making process, and medical care plan development were reviewed and approved by the faculty preceptor. The faculty preceptor is aware and concurs with the plan as stated in the body of this note and will attest to such by his/her cosignature. MAKENZIE PHAM DO May 20, 2018 16:28
--- NOTE | 2018-05-20 21:02 | IPN ---
DATE: 05/20/2018 SUBJECTIVE: The patient was seen and examined at the bedside today, morning. He is much more awake and alert today. He was dialyzed yesterday, 1.3 liters of fluid was removed. He could not tolerate more fluid removal because his blood pressure drops. OBJECTIVE: VITAL SIGNS: Temperature is 97.8 degrees Fahrenheit, blood pressure 145/56, pulse is 95, respiratory rate of 18, saturating 94% on 2 liters via nasal cannula. INTAKE/OUTPUT: Ultrafiltration with hemodialysis was 1.3 liters yesterday. Weight on the bed scale is not available. PHYSICAL EXAMINATION: GENERAL: The patient is awake, alert, oriented times one, laying in bed, in no apparent distress, wearing nasal cannula. HEAD AND NECK EXAM: Extraocular muscles intact. Pupils equally round and reactive to light. Mucous membranes are moist. Neck is supple. There is no jugular venous distention (JVD). CARDIOVASCULAR: S1, S2, irregular heart rate. No edema of the bilateral lower extremities. RESPIRATORY: Mildly decreased breath sounds at the bases, otherwise no active rales or rhonchi. ABDOMEN: Abdomen is soft, obese, positive bowel sounds. No organomegaly. MUSCULOSKELETAL: The patient has a right first and third toe amputation, left big toe amputation. He has 1+ edema of the bilateral upper extremities. CENTRAL NERVOUS SYSTEM (TIMBER DEADENER): He is awake, alert, oriented times one, follows commands. LAB REVIEW: CBC showed a WBC of 16.1, hemoglobin 10.5, platelets are 302. BMP showed sodium 135, potassium 4.2, chloride 98, bicarbonate 27, BUN 20, creatinine is 4.7. CURRENT INPATIENT MEDICATIONS: The patient's medications were all reviewed by me. His Solu-Medrol dose has been decreased to 30 mg IV every 12 hours. No other change in the medications today as compared with yesterday. ASSESSMENT AND PLAN: 1. End-stage renal disease, on hemodialysis. The patient's regular dialysis days are Thursday, Thursday, Thursday. He got [id number] dialysis for two days. He does not tolerate much ultrafiltration because of pulmonary hypertension and his blood pressure drops. Next hemodialysis session will be tomorrow as per his regular schedule. 2. Chronic diastolic congestive heart failure. The patient has upper extremity edema and pulmonary hypertension. He usually does not tolerate much fluid removal. Ultrafiltration goal is around 1.5 to 2 liters with dialysis tomorrow morning. 3. Healthcare-associated pneumonia. The patient is currently on cefepime and vancomycin. Symptomatically he is getting better. 4. Acute chronic obstructive pulmonary disease (COPD) exacerbation. The patient is getting antibiotics and nebulizations. His steroids are being tapered down by the primary team. 5. Anemia in end-stage renal disease. Hemoglobin is 10.5. The patient will get Aranesp with hemodialysis tomorrow.
[2018-05-20 22:00] VITALS: BP 115/51
[2018-05-21] MEDS: IPRATROPIUM 0.5MG/ALBUTEROL 2.5MG INH SOL UD 3ML (DUONEB)(J7620) NEB SCH ×3 (02:47→13:00)
[2018-05-21] MEDS: HEPARIN SOD (PORCINE) 5000 UNITS/ML VIAL SQ SCH (05:36)
[2018-05-21 07:00] LABS: BASO % 0.1 % (0.0-1.0); HEMATOCRIT 34.5 % (42.0-52.0); HEMOGLOBIN 10.4 g/dl (13.5-17.5); LYMPH # 0.3 10^3/uL (1.5-4.5); LYMPH % 2.1 % (24.0-44.0); MEAN CORPUSCULAR HEMOGLOBIN 31.3 pg (27.0-33.0); MEAN CORPUSCULAR HGB CONC 30.1 g/dl (32.0-36.5); MEAN CORPUSCULAR VOLUME 103.9 fl (80.0-96.0); MONO # 0.3 10^3/uL (0.0-0.8); MONO % 2.1 % (0.0-5.0); NEUTROPHILS # 13.2 10^3/uL (1.8-7.7); NEUTROPHILS % 93.8 % (36.0-66.0); PLATELET COUNT, AUTOMATED 282 10^3/uL (150-450); RED BLOOD COUNT 3.32 10^6/uL (4.30-6.10); WHITE BLOOD COUNT 14.1 10^3/uL (4.0-10.0)
[2018-05-21 07:18] LABS: CALCIUM LEVEL 8.2 MG/DL (8.8-10.2); CREATININE FOR GFR 6.03 MG/DL (0.70-1.30); GLOMERULAR FILTRATION RATE 9.6 (>35); POTASSIUM SERUM 4.3 MEQ/L (3.5-5.1); VANCOMYCIN RANDOM 22.6 UG/ML
[2018-05-21] MEDS: HumaLOG INSULIN (NovoLOG) PER UNIT SC SCH (07:53)
[2018-05-21] MEDS: PANTOPRAZOLE 40MG TAB (PROTONIX) PO SCH (07:58)
[2018-05-21 08:00] VITALS: BP 130/53
[2018-05-21] MEDS ORDERED: DARBEPOETIN 100 MCG/0.5 ML *DIALYSIS* SYRINGE (J0882) IV SCH (08:30)
[2018-05-21] MEDS ORDERED: CEFD1CAP8 PO (09:00)
[2018-05-21] MEDS ORDERED: BASA100I SC (09:00)
[2018-05-21] MEDS ORDERED: PRED5TA PO (09:14)
[2018-05-21] MEDS ORDERED: PRED10TA2 PO (09:14)
[2018-05-21] MEDS: CEFEPIME HCL 1 GM in D5W MINI-BAG PLUS 50 ML IV SCH (09:58)
[2018-05-21] MEDS: methylPREDNISolone INJ 40 MG/1 ML VIAL (J2920) IV SCH (10:46)
[2018-05-21] MEDS ORDERED: HEPARIN 1,000 UNITS/ML 10ML VIAL (FOR RADIOLOGY& DIALYSIS ONLY) XX ONE (11:30)
[2018-05-21] MEDS ORDERED: HEPARIN 1,000 UNITS/ML 10ML VIAL (FOR RADIOLOGY& DIALYSIS ONLY) IV ONE (11:30)
[2018-05-21] MEDS: CLOPIDOGREL 75 MG TAB PO SCH (13:04)
--- NOTE | 2018-05-22 06:49 | IPN ---
DATE OF SERVICE: 05/21/2018 SUBJECTIVE: The patient was seen and examined at the bedside today morning during hemodialysis procedure. He was tolerating the hemodialysis procedure well. He denies any active complaints. OBJECTIVE: Vital Signs: Temperature is 96.7 degrees Fahrenheit, blood pressure 138/53, pulse is 96, respiratory rate of 18, saturating 96% on 2 liters nasal cannula. Intake and Output: Urine output is not recorded. Weight on the bed scale is not available at this point. PHYSICAL EXAMINATION: GENERAL: The patient is awake, alert, oriented times three, laying in bed, getting hemodialysis done, in no apparent distress. HEAD AND NECK EXAM: Extraocular muscles intact. Pupils equally round and reactive to light. Mucous membranes are moist. Neck is supple. There is no jugular venous distention (JVD). CARDIOVASCULAR: S1 and S2, irregular rate. No edema of the bilateral lower extremities. RESPIRATORY: Mildly decreased breath sounds at the bases, otherwise no active rales or rhonchi. ABDOMEN: Abdomen is soft. Positive bowel sounds. Nontender. No organomegaly. MUSCULOSKELETAL: He has 1+ edema of the bilateral upper extremities. Right first and third toe amputations, left big toe amputation. CENTRAL NERVOUS SYSTEM (COLLAR SETTER OVERLOCK): The patient is awake, alert, oriented times two, following commands and able to communicate. LAB REVIEW: CBC showed a WBC of 14.1, hemoglobin 10.4, platelets are 282. BMP showed sodium 135, potassium 4.3, chloride 100, bicarbonate 25, BUN 30, creatinine is 6. CURRENT INPATIENT MEDICATIONS: There is no change in the medications today as compared with yesterday. ASSESSMENT AND PLAN: 1. End-stage renal disease, on hemodialysis. The patient is being dialyzed according to his regular Thursday, Thursday and Thursday schedule. I will try to remove about 1.5 liters of fluid as tolerated by his blood pressure. 2. Chronic diastolic congestive heart failure. The patient only has upper extremity edema. There is no edema in the lower extremities. He does not tolerate more than 1.5 to 2 liters of fluid removal. 3. Healthcare-associated pneumonia. The patient is on vancomycin and cefepime. Antibiotic management is as per primary team. 4. Acute chronic obstructive pulmonary disease (COPD) exacerbation. The patient is significantly better. He is on IV steroids at this point. When he is discharged, he needs to be on oral prednisone which tends to help with the COPD. 5. Anemia and end-stage renal disease. Hemoglobin is 10.4, which is optimal. He was given one dose of Aranesp today. 6. Disposition. Patient is stable enough [facility] 24 hours.
== END 2018-05-21 13:25 | DRG 871 ==
LOC: M ED 16:02 → M ED INP 20:23 → M MS5PR 23:55
PROVIDERS: ADMIT Internal Medicine; ATTEND Family Medicine
PROC: 5A1D70Z Performance of Urinary Filtration, Intermittent, Less than 6 Hours Per Day (ICD-10-PCS; principal; 2018-05-18)
DX: A41.9 Sepsis, unspecified organism (principal); R65.21 Severe sepsis with septic shock; G93.41 Metabolic encephalopathy; N18.6 End stage renal disease; J69.0 Pneumonitis due to inhalation of food and vomit; J96.21 Acute and chronic respiratory failure with hypoxia; J96.22 Acute and chronic respiratory failure with hypercapnia; I13.2 Hypertensive heart and chronic kidney disease with heart failure and with stage 5 chronic kidney disease, or end stage renal disease; J44.1 Chronic obstructive pulmonary disease with (acute) exacerbation; I50.32 Chronic diastolic (congestive) heart failure; E46 Unspecified protein-calorie malnutrition; Z66 Do not resuscitate; E11.51 Type 2 diabetes mellitus with diabetic peripheral angiopathy without gangrene; I25.10 Atherosclerotic heart disease of native coronary artery without angina pectoris; M10.30 Gout due to renal impairment, unspecified site; E66.01 Morbid (severe) obesity due to excess calories; E11.21 Type 2 diabetes mellitus with diabetic nephropathy; D63.1 Anemia in chronic kidney disease; E11.649 Type 2 diabetes mellitus with hypoglycemia without coma; E11.22 Type 2 diabetes mellitus with diabetic chronic kidney disease; E11.40 Type 2 diabetes mellitus with diabetic neuropathy, unspecified; I95.3 Hypotension of hemodialysis; I27.20 Pulmonary hypertension, unspecified; R13.10 Dysphagia, unspecified; E78.5 Hyperlipidemia, unspecified; Z99.2 Dependence on renal dialysis; Z99.81 Dependence on supplemental oxygen; Z79.899 Other long term (current) drug therapy; Z87.891 Personal history of nicotine dependence; Z79.02 Long term (current) use of antithrombotics/antiplatelets; Z95.1 Presence of aortocoronary bypass graft; Y95 Nosocomial condition; Z89.411 Acquired absence of right great toe; Z89.421 Acquired absence of other right toe(s); Z89.412 Acquired absence of left great toe; Z68.32 Body mass index [BMI] 32.0-32.9, adult

== ENCOUNTER → 2018-05-24 | Outpatient (REF) | payer MEDICAID, MEDICARE ==
[~2018-05-24] MED LIST changes: -/ISOS5TA OR; -ASPI81CH PO; +ASPI81CH49 PO; +CEFD1CAP8 PO; -CEFT1INJ3 INJ; +CEFT1INJ5 INJ; +DOXY-350 PO; +GUAI100L6 PO; -GUAI100S27 PO; +HEPA1INJ23 SQ; -HEPA50VL SQ; +ISOS1TAB21 OR; +LATA0.0013 OU; -LATA5OPD OU; +METO-743 OR; -NORC1TAB4 PO; +NORC1TAB7 PO; +PATIENT COMMENTS; +PRAN0.5T3 OR; -TOPR50TA OR; -[UNRECOGNIZED DRUG - CODE] OR
== END ==
LOC: SKLAB3 11:13
PROVIDERS: ATTEND Family Medicine
DX: J18.9 Pneumonia, unspecified organism (principal); N18.9 Chronic kidney disease, unspecified

== ENCOUNTER → 2018-06-05 | Outpatient (REF) | payer MEDICARE, MEDICAID ==
[~2018-06-05] MED LIST changes: +/ISOS5TA OR; +ASPI81CH PO; -ASPI81CH49 PO; +CEFT1INJ3 INJ; -CEFT1INJ5 INJ; -DOXY-350 PO; -GUAI100L6 PO; +GUAI100S27 PO; -HEPA1INJ23 SQ; +HEPA50VL SQ; -ISOS1TAB21 OR; -LATA0.0013 OU; +LATA5OPD OU; -METO-743 OR; +NORC1TAB4 PO; -NORC1TAB7 PO; -PATIENT COMMENTS; -PRAN0.5T3 OR; +TOPR50TA OR; +[UNRECOGNIZED DRUG - CODE] OR
== END ==
LOC: SKLAB3 09:20
PROVIDERS: ATTEND Family Medicine
DX: R73.09 Other abnormal glucose (principal)

== ENCOUNTER 2018-07-02 16:56 | Inpatient (IN) | payer MEDICARE, MEDICAID ==
[~2018-07-02 16:56] MED LIST changes: -/ISOS5TA OR; -ASPI81CH PO; +ASPI81CH49 PO; -CEFT1INJ3 INJ; +CEFT1INJ5 INJ; +GUAI100L6 PO; -GUAI100S27 PO; +HEPA1INJ23 SQ; -HEPA50VL SQ; +ISOS1TAB21 OR; +LATA0.0013 OU; -LATA5OPD OU; +METO-743 OR; -NORC1TAB4 PO; +NORC1TAB7 PO; +PRAN0.5T3 OR; -TOPR50TA OR; -[UNRECOGNIZED DRUG - CODE] OR
[2018-07-02 17:40] LABS: BASO % 0.4 % (0.0-1.0); EOS # 0.1 10^3/uL (0.0-0.50); EOS % 1.4 % (0.0-3.0); HEMOGLOBIN 11.3 g/dl (13.5-17.5); LYMPH # 0.9 10^3/uL (1.5-4.5); MEAN CORPUSCULAR HEMOGLOBIN 31.4 pg (27.0-33.0); MEAN CORPUSCULAR HGB CONC 29.7 g/dl (32.0-36.5); MEAN CORPUSCULAR VOLUME 105.6 fl (80.0-96.0); MONO # 0.8 10^3/uL (0.0-0.8); MONO % 7.3 % (0.0-5.0); NEUTROPHILS # 8.3 10^3/uL (1.8-7.7); NEUTROPHILS % 80.5 % (36.0-66.0); PLATELET COUNT, AUTOMATED 170 10^3/uL (150-450); VENOUS BASE EXCESS 2.5 (-2.0-2.0); VENOUS O2 SATURATION 70.4 % (60.0-80.0); VENOUS PARTIAL PRESSURE CO2 60.4 mmHg (38.0-50.0); VENOUS PH 7.314 UNITS (7.330-7.430); VENOUS STANDARD HCO3 26.1 MEQ/L; VENOUS TOTAL CO2 31.9 MEQ/L (24.0-28.0); WHITE BLOOD COUNT 10.3 10^3/uL (4.0-10.0)
[2018-07-02] MEDS ORDERED: DOXY-350 PO (17:45)
[2018-07-02] MEDS ORDERED: GABA-843 PO (17:45)
[2018-07-02 17:50] LABS: INR 1.01; PROTHROMBIN TIME 13.4 SECONDS (12.1-14.4)
[2018-07-02 18:33] LABS: ALBUMIN 2.6 GM/DL (3.2-5.2); ALT/SGPT 18 U/L (12-78); BILIRUBIN,DIRECT 0.1 MG/DL (0.0-0.2); BILIRUBIN,TOTAL 0.3 MG/DL (0.2-1.0); BLOOD UREA NITROGEN 16 MG/DL (7-18); CALCIUM LEVEL 8.2 MG/DL (8.8-10.2); CARBON DIOXIDE LEVEL 29 MEQ/L (21-32); CHLORIDE LEVEL 106 MEQ/L (98-107); CK-MB VALUE MASS < 1.0 NG/ML (<3.6); CPK CREATINE PHOSPHOKINASE 31 U/L (39-308); CREATININE FOR GFR 3.85 MG/DL (0.70-1.30); GLOMERULAR FILTRATION RATE 16.1 (>35); GLUCOSE, FASTING 186 MG/DL (70-100); LIPASE 92 U/L (73-393); MAGNESIUM LEVEL 1.7 MG/DL (1.8-2.4); MB/CK RELATIVE INDEX 3.23 (< OR =4); SODIUM LEVEL 141 MEQ/L (136-145); TOTAL PROTEIN 5.7 GM/DL (6.4-8.2); TROPONIN I < 0.02 NG/ML (< 0.10)
[2018-07-02] MEDS ORDERED: BISACODYL 10 MG SUPP PR PRN (20:15)
[2018-07-02] MEDS ORDERED: IPRATROPIUM 0.5MG/ALBUTEROL 2.5MG INH SOL UD 3ML (DUONEB)(J7620) INH PRN (20:15)
[2018-07-02] MEDS ORDERED: PATIENT COMMENTS (20:47)
[2018-07-02] MEDS: ATORVASTATIN 20 MG TAB PO SCH (20:51)
[2018-07-02] MEDS: METOPROLOL TART 25 MG TABLET PO SCH (20:51)
--- NOTE | 2018-07-02 21:27 | REP ---
CT ABDOMEN AND PELVIS WITHOUT CONTRAST: CT abdomen and pelvis performed without oral or IV contrast. Sagittal and coronal reconstruction images are performed. Visualized lung bases demonstrate fibrotic changes. The liver demonstrates no gross mass. The gallbladder demonstrates multiple stones. There is no definite gallbladder wall edema or evidence of biliary dilatation. Spleen, adrenals, pancreas are grossly unremarkable. There appear to be calcified lymph nodes around the pancreatic head. The kidneys are moderately atrophic. There is no hydronephrosis bilaterally. 6 mm cortical calcification is seen of the mid anterior right kidney. 3 mm calculus is seen in the right renal pelvis. This does not appear to obstruct the left renal pelvis or ureter. 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 This is unchanged since the prior CT of 03/10/2018. The calcification in the left renal pelvis is also unchanged since that time. I see no adenopathy, free air or free fluid. No bowel wall thickening is seen. There is no evidence of appendicitis. A few scattered sigmoid diverticula are present, also in the left colon. No pelvic mass is seen. Urinary bladder is mildly distended and grossly unremarkable. There is a very small left inguinal hernia containing fat. Electronically Signed by Kris Stone MD 07/03/2018 06:45 P
[2018-07-02] MEDS ORDERED: PRED10TA2 PO (21:42)
[2018-07-02] MEDS ORDERED: BASA100I SC (21:44)
--- NOTE | 2018-07-02 21:59 | REP ---
CHEST, SINGLE VIEW: Single view of the chest is performed and compared to prior studies dating back to 04/16/2018. There is bibasilar interstitial fibrosis which appears stable. No new infiltrate is seen. Heart is slightly enlarged. There is calcification and tortuosity of the thoracic aorta. The mediastinal silhouette is unchanged. Right central venous catheter is again noted. IMPRESSION: No cardiomegaly and chronic changes. No new infiltrate. Electronically Signed by Kris Stone MD 07/03/2018 06:46 P
--- NOTE | 2018-07-02 22:12 | HPE ---
DATE OF ADMISSION: 07/02/2018 My attending physician for this patient encounter is Dr. Karla Rios. HISTORY OF THE PRESENT ILLNESS: The patient is an 82-year-old male who was sent to the emergency room while at his regularly scheduled dialysis appointment. It was reported while at dialysis he began to have hypotension with a systolic blood pressure in the 90s. The patient was found to have a potassium of 7.3 on Thursday. I called over to [facility] to get a report from them, they stated that on he was supposed to get two doses of Kayexalate and some repeat labs drawn; however, he refused, he had become more combative and angry with staff over the last two days. He has had a history of doing this; however, he had not done this in some time. In the emergency room, the patient was found to have hypertension and his potassium was 5.0. The patient also had some nausea and feeling like he was going to vomit, and a little bit of dizziness while at dialysis. Right now, when speaking with the patient, he feels well and does not have any acute complaints. He did say he was having episodes of diarrhea, which he says started about four days ago. He did have one episode this afternoon. In talking with the staff over at [facility], they do not have any record of this happening. PAST MEDICAL HISTORY: Coronary artery disease. Diabetes with neuropathy and nephropathy. End-stage renal disease with dialysis on a Thursday, Thursday, Thursday schedule. Hypertension. Hyperlipidemia. Chronic obstructive pulmonary disease (COPD), on two liters of oxygen via nasal cannula. Congestive heart failure. PAST SURGICAL HISTORY: Toe amputation. Right PermCath. Arteriovenous (AV) fistula. ALLERGIES: No known drug allergies. SOCIAL HISTORY: The patient is a former smoker, and he resides at [facility]. FAMILY HISTORY: Noncontributory. REVIEW OF SYSTEMS: General: The patient denies fevers or chills. HEENT: Patient denies headaches, blurry vision, or sore throat. Cardiovascular: Patient denies chest pain. Respiratory: Patient denies shortness of breath. Patient does say he has a slight cough, which is chronic. Gastrointestinal (GI): Patient endorses diarrhea and nausea. Patient denies vomiting or having abdominal pain at this time. Genitourinary (): Patient denies pain or difficulty with urination. Neurological: The patient denies numbness or tingling in his hands or feet. Extremities: The patient says he has chronic pain in his legs. Skin: The patient denies rashes. Lymphatics: Patient denies lumps or bumps in his neck. PHYSICAL EXAMINATION: Vital Signs: Temperature 97.0, pulse 87, respiratory rate 20, blood pressure 177/78, pulse oximetry 99% on nasal cannula, two liters. General: Patient is an alert and oriented male who was laying in bed in the emergency room when I walked in. The patient did not appear to be in any acute distress. HEENT: Normocephalic, atraumatic with anicteric sclerae. Patient had moist mucous membranes. Neck: Neck was supple. No lymphadenopathy. Cardiovascular: Regularly irregular with a normal rate and a normal S1 and S2. No murmurs auscultated. Respiratory: Clear to auscultation bilaterally. Abdomen: Soft, nontender, nondistended with normoactive bowel sounds times four quadrants. Extremities: No pitting edema. Radial and posterior tibial pulses were equal bilaterally. Neurological: Cranial nerves II-XII grossly intact bilaterally. Patient was able to move all four extremities and did not have any gross neurological deficits. Skin: Patient had some bruising on his forearms, but there were no other rashes present. LABORATORY: CBC: White blood cells 10.3, hemoglobin 11.3, hematocrit 38.0, platelet count 170. CMP: Sodium 141, potassium 5.0, chloride 106, bicarbonate 29, BUN 16, creatinine 3.85, glucose 186, calcium 8.2, magnesium 1.7, total bilirubin 0.3, direct bilirubin 0.1, AST 17, ALT 18, alkaline phosphatase 83, total creatinine kinase 31, CK-MB less than 1.0, troponin less than 0.02, total protein 5.7, albumin 2.6. PT 13.4, INR 1.01, APTT 149.0. VBG showed a pH of 7.314, pCO2 of 60.4, pO2 41, HCO3 30.0. The patient had a CT of the abdomen and pelvis performed on 07/02/2018, which showed mild short segment abdominal aortic aneurysm measuring 4.2 x 3.7 cm similar to 03/10/2018. Bibasilar interstitial prominence and fibroatelectatic change, cholelithiasis, moderate bilateral renal atrophy, minimal colonic diverticulosis without evidence of diverticulitis. Patient also had a chest x-ray performed on 07/02/2018, which shows chronic changes and no active disease. ASSESSMENT AND PLAN: The patient is an 82-year-old male who presented to the emergency room from dialysis with a chief complaint of hyperkalemia and hypotension. The patient will be admitted to the hospital for further workup, evaluation and management. 1. Hypotension. Patient is currently hypertensive. At this point, the patient was only able to get a half an hour of his dialysis treatment today. We will be consulting nephrology who knows the patient very well, who will be managing his dialysis. At this time we will continue to monitor the patient. 2. Hyperkalemia. The patient had a blood draw that showed a potassium of 7.3 on 06/30/2018. Currently it is 5.0. The patient did receive a dose of Kayexalate at dialysis today. We will continue to monitor. 3. Diarrhea. The patient reports diarrhea, which could be an explantation for his hypotension. A GI panel has been ordered for the patient. 4. Diabetes. The patient will be on sliding scale. 5. Chronic obstructive pulmonary disease. We will continue the patient's home DuoNebs, as well as the daily prednisone. 6. Congestive heart failure. We will continue with his current medication as long as he remains normo to hypertensive. 7. End-stage renal disease. Nephrology will be consulted for dialysis. 8. Hyperlipidemia. We will continue his Lipitor. 9. Deep vein thrombosis (DVT) prophylaxis. Heparin subcutaneous. 10. Gastroesophageal reflux disease (GERD). The patient will be continued with his Protonix. CODE STATUS: The patient is a DO NOT RESUSCITATE (DNR)/DO NOT INTUBATE (DNI) based on his Medical Orders for Life-Sustaining Treatment (MOLST) form, which was signed in December of 2016. At his previous hospitalization, it appeared that a discussion was had with the patient about comfort measures only and it appears in Dr. Soto's note as well as the discharge note by Dr. Lawton that the patient may be switched to comfort measures only; however, a new MOLST form has not been filled out. I did contact [facility] where the patient is a resident who says that the latest MOLST form that they have on record was signed in December of 2016, which dictates limited interventions based on the MOLST form and to send to the hospital as needed for treatment. We will continue with treatment based on that MOLST form as there is no new MOLST form. My faculty preceptor for this patient encounter was physically present during the encounter and was fully available. All aspects of the patient interview, examination, medical decision making process, and medical care plan development were reviewed and approved by the faculty preceptor. The faculty preceptor is aware and concurs with the plan as stated in the body of this note and will attest to such by his/her cosignature. I have both independently examined this patient as well as reviewed H and P. I have discussed in detail with the resident the findings and plan of treatment as documented in the residents note. MARIPOSA
[2018-07-02 23:34] VITALS: BP 170/80
[2018-07-03] MEDS: ONDANSETRON 4 MG TAB (S0181) PO PRN (00:42)
[2018-07-03] MEDS: HEPARIN SOD (PORCINE) 5000 UNITS/ML VIAL SC SCH ×4 (05:31→21:29)
[2018-07-03 06:00] VITALS: BP 122/64
[2018-07-03] MEDS: METOPROLOL TART 25 MG TABLET PO SCH ×2 (07:07→21:29)
[2018-07-03] MEDS: predniSONE 5 MG TAB PO SCH (07:07)
[2018-07-03] MEDS: DOCUSATE SODIUM 100 MG CAP PO SCH (07:07)
[2018-07-03] MEDS: IPRATROPIUM 0.5MG/ALBUTEROL 2.5MG INH SOL UD 3ML (DUONEB)(J7620) INH SCH ×2 (07:19→20:00)
--- NOTE | 2018-07-03 07:21 | ECGEPIP ---
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
[2018-07-03 10:42] LABS: CALCIUM LEVEL 7.4 MG/DL (8.8-10.2); CREATININE FOR GFR 4.16 MG/DL (0.70-1.30); GLOMERULAR FILTRATION RATE 14.7 (>35); POTASSIUM SERUM 6.3 MEQ/L (3.5-5.1)
[2018-07-03] MEDS: MIRALAX *UNIT DOSE* 17GM PACKET PO SCH (12:00)
[2018-07-03 12:35] LABS: HEMATOCRIT 33.4 % (42.0-52.0); HEMOGLOBIN 9.9 g/dl (13.5-17.5); MEAN CORPUSCULAR HEMOGLOBIN 30.6 pg (27.0-33.0); MEAN CORPUSCULAR HGB CONC 29.6 g/dl (32.0-36.5); MEAN CORPUSCULAR VOLUME 103.1 fl (80.0-96.0); PLATELET COUNT, AUTOMATED 163 10^3/uL (150-450); RED BLOOD COUNT 3.24 10^6/uL (4.30-6.10); WHITE BLOOD COUNT 5.3 10^3/uL (4.0-10.0)
[2018-07-03] MEDS ORDERED: HEPARIN 1,000 UNITS/ML 10ML VIAL (FOR RADIOLOGY& DIALYSIS ONLY) XX ONE (13:00)
[2018-07-03] MEDS ORDERED: HEPARIN 1,000 UNITS/ML 10ML VIAL (FOR RADIOLOGY& DIALYSIS ONLY) IV ONE (13:00)
--- NOTE | 2018-07-03 15:29 | IPNPDOC ---
Subjective Date Seen The patient was seen on 07/03/18. Subjective Chief Complaint/HPI Patient admitted overnight as he became hypotensive at dialysis. this past Thursday he had potassium of 7.3, but refused treatment at that time. On admission to the emergency department he was found to be hypertensive with a potassium of 5. He currently has no complaints at this time but states that he was having a few episodes of diarrhea that began about 4 days ago. Objective Physical Examination General Exam: Positive: Alert, No Acute Distress Eye Exam: Positive: EOMI ENT Exam: Positive: Atraumatic, Pharynx Normal Chest Exam: Positive: Clear to auscultation, Rhonchi; Negative: Rales, Wheezing Heart Exam: Positive: Rate Normal, Normal S1, Normal S2 Abdomen Exam: Positive: Soft; Negative: Tenderness Extremity Exam: Positive: Edema, Other (patient with bruising over dorsal surfaces of bilateral hands from prior IV sticks) Skin Exam: Positive: Nl turgor and temperature Neuro Exam: Positive: Normal Speech Psych Exam: Negative: Mood NL (apathetic) Assessment /Plan Problems (1) ESRD (end stage renal disease) on dialysis Status: Chronic Problem Text: 07/03/18patient to receive extra dialysis session today per nephrology. (2) Diarrhea Status: Acute Problem Text: 07/03- Ordered GI panel, results pending. will continue to monitor for now. (3) Hyperkalemia Status: Acute Problem Text: Patient's hyperkalemia was better yesterday, today it is worse. Patient set received dialysis today. (4) Hypertension Status: Chronic Problem Text: Patient presented at dialysis with hypotension, in the emergency department he was hypertensive. Currently he is normotensive. (5) COPD (chronic obstructive pulmonary disease) Status: Chronic Problem Text: 07/03continue with home medications (6) Diabetes Status: Chronic Problem Text: 07/03continue with sliding scale insulin. (7) GERD (gastroesophageal reflux disease) Status: Chronic Problem Text: 07/03continue with home medications (8) Diastolic CHF Status: Chronic Problem Text: 07/03Patient does show signs of being fluid overloaded, set to receive dialysis today. (9) Mb-hzu-[id number] resuscitation status Status: Chronic Problem Text: Patient is DNR/DNI. There is discussion in the admitting note about the patient being switched to comfort measures only, however there is no documentation currently to support a new MOLST form as it has not been filled out. Need to have discussion with patient about CODE STATUS in this regard. Plan/VTE VTE Prophylaxis Ordered?: Yes VS, I&O, 24H, Fishbone Vital Signs/I&O Vital Signs Date Time Temp Pulse Resp B/P (MAP) Pulse Ox O2 Delivery O2 Flow Rate FiO2 07/03/18 08:30 2.0 07/03/18 07:07 85 122/64 07/03/18 06:00 97.1 18 96 07/02/18 23:00 Room Air I&O- Last 24 Hours up to 6 AM 07/03/18 06:00 Intake Total 540 ml Balance 540 ml Laboratory Data 24H LABS Laboratory Tests 2 07/02/18 17:24: Immature Granulocyte % (Auto) 1.4, White Blood Count 10.3H, Red Blood Count 3.60L, Hemoglobin 11.3L, Hematocrit 38.0L, Mean Corpuscular Volume 105.6H, Mean Corpuscular Hemoglobin 31.4, Mean Corpuscular Hemoglobin Concent 29.7L, Red Cell Distribution Width 14.9H, Platelet Count 170, Neutrophils (%) (Auto) 80.5H, Lymphocytes (%) (Auto) 9.0L, Monocytes (%) (Auto) 7.3H, Eosinophils (%) (Auto) 1.4, Basophils (%) (Auto) 0.4, Neutrophils # (Auto) 8.3H, Lymphocytes # (Auto) 0.9L, Monocytes # (Auto) 0.8, Eosinophils # (Auto) 0.1, Basophils # (Auto) 0.0, Nucleated Red Blood Cells % (auto) 0.0, Prothrombin Time 13.4, Prothromb Time International Ratio 1.01, Activated Partial Thromboplast Time 149.0*H, Blood Gas Bicarbonate Standard 26.1, Venous Blood pH 7.314L, Venous Blood Partial Pressure CO2 60.4H, Venous Blood Partial Pressure O2 41.0, Venous Blood Total Carbon Dioxide 31.9H, Venous Blood HCO3 30.0H, Venous Blood Oxygen Saturation 70.4, Venous Blood Base Excess 2.5H, Anion Gap 6L, Glomerular Filtration Rate 16.1L, Lactic Acid Level 1.9, Calcium Level 8.2L, Magnesium Level 1.7L, Aspartate Amino Transf (AST/SGOT) 17, Alanine Aminotransferase (ALT/SGPT) 18, Alkaline Phosphatase 83, Total Bilirubin 0.3, Direct Bilirubin 0.1, Total Creatine Kinase 31L, Creatine Kinase MB < 1.0, Creatine Kinase MB Relative Index 3.23, Troponin I < 0.02, Total Protein 5.7L, Albumin 2.6L, Albumin/Globulin Ratio 0.84L, Lipase 92 07/03/18 09:34: Anion Gap 6L, Glomerular Filtration Rate 14.7L, Calcium Level 7.4L, Blood Urea Nitrogen 21H, Creatinine 4.16H, Sodium Level 141, Potassium Level 6.3*H, Chloride Level 110H, Carbon Dioxide Level 25 07/03/18 11:08: Nucleated Red Blood Cells % (auto) 0.0 CBC/BMP Laboratory Tests 07/02/18 17:24 Red Blood Count 3.60 L, Mean Corpuscular Volume 105.6 H, Mean Corpuscular Hemoglobin 31.4, Mean Corpuscular Hemoglobin Concent 29.7 L, Red Cell Distribution Width 14.9 H, Neutrophils (%) (Auto) 80.5 H, Lymphocytes (%) (Auto) 9.0 L, Monocytes (%) (Auto) 7.3 H, Eosinophils (%) (Auto) 1.4, Basophils (%) (Auto) 0.4, Neutrophils # (Auto) 8.3 H, Lymphocytes # (Auto) 0.9 L, Monocytes # (Auto) 0.8, Eosinophils # (Auto) 0.1, Basophils # (Auto) 0.0 07/03/18 09:34 Calcium Level 7.4 L 07/03/18 11:08 Red Blood Count 3.24 L, Mean Corpuscular Volume 103.1 H, Mean Corpuscular Hemoglobin 30.6, Mean Corpuscular Hemoglobin Concent 29.6 L, Red Cell Distribution Width 14.8 H Microbiology Microbiology 07/02/18 Blood Culture, Received Pending 07/02/18 Blood Culture, Received Pending GME ATTESTATION GME ATTESTATION My faculty preceptor for this patient encounter was physically present during the encounter and was fully available. All aspects of the patient interview, examination, medical decision making process, and medical care plan development were reviewed and approved by the faculty preceptor. The faculty preceptor is aware and concurs with the plan as stated in the body of this note and will attest to such by his/her cosignature. GME ATTESTATION GME ATTESTATION My faculty preceptor for this patient encounter was physically present during the encounter and was fully available. All aspects of the patient interview, examination, medical decision making process, and medical care plan development were reviewed and approved by the faculty preceptor. The faculty preceptor is aware and concurs with the plan as stated in the body of this note and will attest to such by his/her cosignature. ATTENDING NOTE patient seen and examined agree with findings and plan as documented by Dr. Veras. GME ATTESTATION GME ATTESTATION My faculty preceptor for this patient encounter was physically present during the encounter and was fully available. All aspects of the patient interview, examination, medical decision making process, and medical care plan development were reviewed and approved by the faculty preceptor. The faculty preceptor is aware and concurs with the plan as stated in the body of this note and will attest to such by his/her cosignature. KERRY VERAS DO Jul 03, 2018 15:29 Kerry Bee MD Jul 04, 2018 08:03
[2018-07-03 16:00] VITALS: BP 106/57
[2018-07-03] MEDS: PANTOPRAZOLE 40MG TAB (PROTONIX) PO SCH (16:19)
[2018-07-03] MEDS: CLOPIDOGREL 75 MG TAB PO SCH (16:19)
--- NOTE | 2018-07-03 18:48 | CR ---
DATE OF CONSULTATION: 07/03/2018 REQUESTING PHYSICIAN: Dr. Emiliana Gentile CONSULTING PHYSICIAN: Dr. Baig REASON FOR CONSULTATION: Management of end-stage renal disease and hemodialysis. CHIEF COMPLAINT: Patient was sent to the emergency room yesterday from dialysis center because of low blood pressures and inability to have dialysis. HISTORY OF PRESENT ILLNESS: Mr. Nnamdi Rodriguez is an 82-year-old male with past medical history of end-stage renal disease, on hemodialysis every Thursday, Thursday, Thursday, history of chronic obstructive pulmonary disease (COPD), congestive heart failure, multiple other comorbidities as mentioned below. He presented to the outpatient dialysis center yesterday for hemodialysis; however, during dialysis he was very restless. He was unable to tolerate the dialysis. He was also having hypotension. Just after 30 minutes of dialysis, patient was sent to the emergency room for further evaluation. In the emergency room (ER) there were no episodes of hypotension. He did complain of dizziness. Patient has done this before multiple times, and every time he has some sort of sepsis or infection, so further sepsis workup was done to rule out possibility of pneumonia or intra-abdominal infection. He was admitted under the hospitalist service yesterday. Nephrology service was called today for further help in the management of this patient's end-stage renal disease and arrangement of hemodialysis because he could not finish his dialysis yesterday. I saw and evaluated the patient today morning at the bedside. He was lying in the bed in no apparent distress. He was awake, and he was able to communicate with me. I have arranged patient's dialysis today, because is repeat labs today morning showed a potassium of 6.3 PAST MEDICAL HISTORY: 1. End-stage renal disease, on hemodialysis every Thursday, Thursday, Thursday. 2. Morbid obesity. 3. Diabetes mellitus, type 2. 4. Coronary artery disease. 5. Hypertension. 6. Hyperlipidemia. 7. History of COPD, chronically on oxygen. 8. Peripheral vascular disease. 9. Chronic diastolic congestive heart failure. PAST SURGICAL HISTORY: 1. 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 2. Status post right internal jugular (IJ) tunneled hemodialysis catheter. 3. Status post multiple revisions of left upper arm arteriovenous (AV) fistula and graft. ALLERGIES: He has no known drug allergies. FAMILY HISTORY: No significant family history of end-stage renal disease requiring hemodialysis. SOCIAL HISTORY: He is a resident of [facility]. He is a former smoker. Denies any illicit drug abuse or alcohol abuse. REVIEW OF SYSTEMS: CONSTITUTIONAL: He denies any fevers or chills. EYES: He denies any blurry vision, double vision. ENT: He denies any dysphagia or odynophagia. CARDIOVASCULAR: He denies any chest pain or palpitations. RESPIRATORY: He denies any cough. GASTROINTESTINAL: He denies any vomiting, but he does report history of diarrhea. GENITOURINARY: He denies any dysuria or hematuria. MUSCULOSKELETAL: He reports weakness and inability to walk. CENTRAL NERVOUS SYSTEM: He denies any strokes or seizure. He does report resting tremors of the hands. HEMATOLOGIC/ONCOLOGIC: He denies any easy bleeding or bruising. ENDOCRINE: He reports history of secondary hyperparathyroidism. All other review of systems is negative. PHYSICAL EXAMINATION: GENERAL: Patient is awake, alert, oriented times two, lying in bed. No apparent distress. VITAL SIGNS: Temperature is 97.1 degrees Fahrenheit, blood pressure 122/64, pulse is 85, respiratory rate of 18, saturating 96% on nasal cannula at 2 liters. HEAD AND NECK: Extraocular muscles intact. Pupils equally round and reactive to light. Mucous membranes are moist. Neck is supple. There is mildly elevated jugular venous distention (JVD). CARDIOVASCULAR: S1, S2, regular rate. Edema 1+ of the bilateral lower extremities. RESPIRATORY: Chest is clear to auscultation bilaterally. Mildly decreased breath sounds. He is wearing nasal cannula. ABDOMEN: Soft, obese. Positive bowel sounds. Nontender. No organomegaly. GENITOURINARY: Bladder is not palpable. MUSCULOSKELETAL: He has lost multiple toes on bilateral lower extremities because of previous amputations. Edema 1+ of the lower extremities. CENTRAL NERVOUS SYSTEM: He is oriented times two. Moves upper extremities, but he has resting tremors of the bilateral lower extremities. AV ACCESS: He has a right IJ tunneled hemodialysis catheter. LABORATORY REVIEW: CBC showed a WBC of 5.3; it was 10.3 yesterday. Hemoglobin 9.9, platelets of 163. INR is 1. VBG shows a pH of 7.31. BMP done today morning showed sodium 141, potassium 6.3, chloride 110, bicarbonate is 25, BUN 21, creatinine is 4.1. Lactic acid 1.9. Calcium 7.4. Albumin 2.6. Microbiology: Blood cultures are pending. IMAGING: CT scan of the abdomen and pelvis without contrast was done. It showed mild left inguinal hernia containing fat; otherwise no acute pathology was seen. A CT of the chest was done yesterday, which showed no cardiomegaly and no new infiltrate. CURRENT INPATIENT MEDICATIONS: Patient's current medications include: - Tylenol as needed - DuoNeb nebulizations - Lipitor 20 mg at bedtime - Plavix 75 mg daily - Colace 100 mg by mouth daily - Uloric 40 mg daily - metoprolol 25 mg by mouth twice a day - Zofran as needed - Protonix 40 mg daily - prednisone 5 mg daily ASSESSMENT: An 82-year-old male with past medical history of end-stage renal disease, on hemodialysis, chronic diastolic congestive heart failure, chronic obstructive pulmonary disease (COPD), admitted at this time with hypotension and inability to finish dialysis as outpatient. PLAN: 1. End-stage renal disease, on hemodialysis. Patient could only do half an hour of dialysis yesterday. He is hemodynamically stable. I would do his dialysis today and try to remove at least 2.5 kg of fluid as tolerated by his blood pressure. 2. Hypotension. Patient does not have hypotension anymore. His blood pressures are okay. Cultures were already sent. He does not need any antibiotics at this point. 3. Hyperkalemia. Patient had a potassium of 6.3. He will be dialyzed with a 1K bath. Potassium is expected to improve after that. 4. COPD. Continue home dose of prednisone 5 mg daily. Continue the nebulizations. 5. 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 Continue home dose of Uloric. 6. Chronic diastolic congestive heart failure. Patient's volume status will be optimized with dialysis today. Continue home dose of metoprolol 25 mg by mouth twice a day. 7. Coronary artery disease. Continue current dose of Lipitor 20 mg daily, Plavix 75 mg daily. 8. Anemia secondary to end-stage renal disease. Hemoglobin is 9.9. Anemia management is being done as outpatient. If patient stays here for more than 2 days, then I would start the patient on Aranesp with dialysis. Thank you for involving me in the care of this patient. I shall be happy to follow the patient along with you tomorrow morning.
[2018-07-03] MEDS: ACETAMINOPHEN TAB 650MG DOSE (2X325MG) PO PRN (21:29)
[2018-07-03] MEDS: ATORVASTATIN 20 MG TAB PO SCH (21:29)
[2018-07-03 22:00] VITALS: BP 126/76
[2018-07-04] MEDS: HEPARIN SOD (PORCINE) 5000 UNITS/ML VIAL SC SCH ×3 (05:43→21:53)
[2018-07-04 06:00] VITALS: BP 166/74
[2018-07-04 06:30] LABS: HEMATOCRIT 35.3 % (42.0-52.0); HEMOGLOBIN 10.5 g/dl (13.5-17.5); MEAN CORPUSCULAR HGB CONC 29.7 g/dl (32.0-36.5); MEAN CORPUSCULAR VOLUME 104.1 fl (80.0-96.0); PLATELET COUNT, AUTOMATED 154 10^3/uL (150-450); RED BLOOD COUNT 3.39 10^6/uL (4.30-6.10); WHITE BLOOD COUNT 6.2 10^3/uL (4.0-10.0)
[2018-07-04 07:06] LABS: CALCIUM LEVEL 7.4 MG/DL (8.8-10.2); CREATININE FOR GFR 2.79 MG/DL (0.70-1.30); GLOMERULAR FILTRATION RATE 23.3 (>35); POTASSIUM SERUM 4.4 MEQ/L (3.5-5.1)
[2018-07-04] MEDS: IPRATROPIUM 0.5MG/ALBUTEROL 2.5MG INH SOL UD 3ML (DUONEB)(J7620) INH SCH ×2 (07:06→20:00)
[2018-07-04] MEDS: predniSONE 5 MG TAB PO SCH (09:52)
[2018-07-04] MEDS: METOPROLOL TART 25 MG TABLET PO SCH ×2 (09:52→21:52)
[2018-07-04] MEDS: ACETAMINOPHEN TAB 650MG DOSE (2X325MG) PO PRN ×2 (09:53→21:53)
[2018-07-04] MEDS: DOCUSATE SODIUM 100 MG CAP PO SCH (09:53)
[2018-07-04] MEDS: MIRALAX *UNIT DOSE* 17GM PACKET PO SCH (13:57)
[2018-07-04] MEDS: CLOPIDOGREL 75 MG TAB PO SCH (13:57)
[2018-07-04] MEDS: PANTOPRAZOLE 40MG TAB (PROTONIX) PO SCH (13:57)
[2018-07-04] MEDS: FEBUXOSTAT 40 MG TABLET (ULORIC) PO SCH (13:57)
[2018-07-04 14:00] VITALS: BP 134/65
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
[2018-07-04] MEDS: ATORVASTATIN 20 MG TAB PO SCH (21:52)
[2018-07-04 22:00] VITALS: BP 111/56
[2018-07-05] MEDS: METOPROLOL TART 25 MG TABLET PO SCH ×2 (05:41→22:00)
[2018-07-05] MEDS: DOCUSATE SODIUM 100 MG CAP PO SCH (05:41)
[2018-07-05] MEDS: predniSONE 5 MG TAB PO SCH (05:41)
[2018-07-05] MEDS: HEPARIN SOD (PORCINE) 5000 UNITS/ML VIAL SC SCH ×3 (05:42→22:00)
[2018-07-05 06:00] VITALS: BP 159/82
[2018-07-05] MEDS: IPRATROPIUM 0.5MG/ALBUTEROL 2.5MG INH SOL UD 3ML (DUONEB)(J7620) INH SCH ×2 (08:00→20:00)
--- NOTE | 2018-07-05 09:57 | IPN ---
DATE OF SERVICE: 07/04/2018 SUBJECTIVE: Patient seen and examined this morning in bed, feeding himself lunch. He denies any complaints. Reports that he slept very well. VITAL SIGNS: Temperature 97.3, pulse 86, respiratory rate 18-20, blood pressure 134/65, saturating 99% on 2 liters nasal cannula. Intake yesterday was not recorded. Dialysis yesterday removed 2500 mL. Weight on the bed scale today is 74.5 kg. GENERAL: Patient is seen lying bed, feeding himself lunch without any assistance. Extraocular muscles are intact. He makes eye contact. Facial ruddiness. Tongue is moist. Neck is supple. Jugular veins are mildly elevated. CARDIAC: S1, S2. Regular rate. There is 1+ edema on the lower extremities and also in the upper extremities. RESPIRATORY: There is symmetric air entry bilaterally. There is no tachypnea. He is comfortable on nasal cannula. ABDOMEN: Is soft and obese. There is no tenderness to palpation. There is a right internal jugular (IJ) tunneled hemodialysis catheter present. SKIN: Shows scattered ecchymosis on both upper extremities and fragile papery skin. NEUROLOGIC: He answers simple questions appropriately, is cooperative with the physical exam and oriented to person and place. LABS: White count 6.2, hemoglobin 10.5, platelets 154. Sodium 141, potassium 4.4, bicarbonate 30. INPATIENT MEDICATIONS: Reviewed by myself and noted patient was started on every other day Uloric. Remainder of medications are unchanged from prior. PROBLEMS: 1. End-stage renal disease, on hemodialysis on a Thursday, Thursday, Thursday maintenance schedule. Patient was dialyzed yesterday in view of significant hyperkalemia. His next dialysis will be on Thursday per his usual schedule. His electrolytes are acceptable. There is hypervolemia on exam. 2. Hyperkalemia. Resolved after yesterday's dialysis session, and patient continues on a renal diet. 3. Chronic diastolic congestive heart failure. Patient tolerated 2.5 liters of fluid removal with dialysis yesterday. We will continue with the fluid removal and ultrafiltration on dialysis as tolerated by his hemodynamics. He does not have much in the way of fluid intake. There is peripheral edema present on exam. 4. Chronic obstructive pulmonary disease (COPD). This is chronic. He continues on prednisone and his usual nebulizers.
--- NOTE | 2018-07-05 10:44 | IPNPDOC ---
Subjective Date Seen The patient was seen on 07/05/18. Subjective Chief Complaint/HPI SOB Events since last encounter Patient c/o nausea on dialysis days. Skin: Reports: Other (scratches to arms) Pulmonary: Denies: Dyspnea, Cough Cardiovascular: Denies: Chest Pain, Palpitations, Orthopnea, Paroxysmal Noc. Dyspnea, Lt Headedness Gastrointestinal: Reports: Nausea; Denies: Vomiting, Abdominal Pain, Diarrhea Objective Physical Examination General Exam: Positive: Alert, No Acute Distress Eye Exam: Positive: EOMI ENT Exam: Positive: Atraumatic, Pharynx Normal Chest Exam: Positive: Clear to auscultation; Negative: Rales, Wheezing Heart Exam: Positive: Rate Normal, Normal S1, Normal S2 Abdomen Exam: Positive: Soft; Negative: Tenderness Male Exam: Positive: Edema (trace) Extremity Exam: Negative: Edema Skin Exam: Positive: Other skin issue (foam dressings on arms ) Neuro Exam: Positive: Normal Speech Psych Exam: Positive: Mood NL (apathetic) Assessment /Plan Problems (1) ESRD (end stage renal disease) on dialysis Status: Chronic Problem Text: 07/05/18: Continue with dialysis per Nephro service. 07/04: looks comfortable usual dialysis days are MWF, afternoon. 07/03/18patient to receive extra dialysis session today per nephrology. (2) Diarrhea Status: Acute Problem Text: 07/03- Ordered GI panel, results pending. will continue to monitor for now. (3) Hyperkalemia Status: Acute Response to Treatment: Improving Problem Text: 07/04 normal K today after yesterday's dialysis Patient's hyperkalemia was better yesterday, today it is worse. Patient set received dialysis today. (4) Hypertension Status: Chronic Response to Treatment: Stable Problem Text: Patient presented at dialysis with hypotension, in the emergency department he was hypertensive. Currently he is normotensive. (5) COPD (chronic obstructive pulmonary disease) Status: Chronic Response to Treatment: Stable Problem Text: 07/03continue with home medications (6) Diabetes Status: Chronic Response to Treatment: Stable Problem Text: 07/03continue with sliding scale insulin. (7) GERD (gastroesophageal reflux disease) Status: Chronic Problem Text: 07/03continue with home medications (8) Diastolic CHF Status: Chronic Response to Treatment: Stable Problem Text: 07/03Patient does show signs of being fluid overloaded, set to receive dialysis today. (9) [id number] resuscitation status Status: Chronic Problem Text: Patient is DNR/DNI. There is discussion in the admitting note about the patient being switched to comfort measures only, however there is no documentation currently to support a new MOLST form as it has not been filled out. Need to have discussion with patient about CODE STATUS in this regard. Plan/VTE VTE Prophylaxis Ordered?: Yes Plan Patient expresses concern about returning to [facility] due to some interactions with Staff. Hollie WEBER and charge nurse, Gail notified. VS, I&O, 24H, Fishbone Vital Signs/I&O Vital Signs Date Time Temp Pulse Resp B/P (MAP) Pulse Ox O2 Delivery O2 Flow Rate FiO2 07/05/18 08:00 2.0 07/05/18 06:00 98.0 70 20 159/82 (107) 96 07/02/18 23:00 Room Air I&O- Last 24 Hours up to 6 AM 07/05/18 05:59 Intake Total 1140 ml Output Total 0 ml Balance 1140 ml Laboratory Data Microbiology Microbiology 07/02/18 Blood Culture - Preliminary, Resulted No Growth after 48 hours. All Specime... 07/02/18 Blood Culture - Preliminary, Resulted No Growth after 48 hours. All Specime... Ira Ham [employer] Jul 05, 2018 10:44
[2018-07-05] MEDS ORDERED: HEPARIN 1,000 UNITS/ML 10ML VIAL (FOR RADIOLOGY& DIALYSIS ONLY) XX ONE (11:00)
[2018-07-05] MEDS ORDERED: HEPARIN 1,000 UNITS/ML 10ML VIAL (FOR RADIOLOGY& DIALYSIS ONLY) IV ONE (11:00)
[2018-07-05] MEDS: CLOPIDOGREL 75 MG TAB PO SCH (11:16)
[2018-07-05] MEDS: MIRALAX *UNIT DOSE* 17GM PACKET PO SCH ×2 (11:16→11:19)
[2018-07-05] MEDS: PANTOPRAZOLE 40MG TAB (PROTONIX) PO SCH (11:16)
[2018-07-05 13:02] LABS: HEMATOCRIT 37.9 % (42.0-52.0); HEMOGLOBIN 11.1 g/dl (13.5-17.5); MEAN CORPUSCULAR HEMOGLOBIN 30.7 pg (27.0-33.0); MEAN CORPUSCULAR HGB CONC 29.3 g/dl (32.0-36.5); MEAN CORPUSCULAR VOLUME 104.7 fl (80.0-96.0); PLATELET COUNT, AUTOMATED 175 10^3/uL (150-450); RED BLOOD COUNT 3.62 10^6/uL (4.30-6.10); WHITE BLOOD COUNT 8.2 10^3/uL (4.0-10.0)
[2018-07-05 13:43] LABS: CALCIUM LEVEL 8.1 MG/DL (8.8-10.2); CREATININE FOR GFR 4.45 MG/DL (0.70-1.30); GLOMERULAR FILTRATION RATE 13.6 (>35); POTASSIUM SERUM 4.6 MEQ/L (3.5-5.1)
[2018-07-05 14:00] VITALS: BP 123/13
[2018-07-05] MEDS: ONDANSETRON 4 MG TAB (S0181) PO PRN (14:13)
[2018-07-05 22:00] VITALS: BP 112/71
[2018-07-05] MEDS: ATORVASTATIN 20 MG TAB PO SCH (22:00)
--- NOTE | 2018-07-06 01:11 | IPN ---
DATE OF SERVICE: 07/05/2018 SUBJECTIVE: The patient is seen and examined this morning at the bedside and again later receiving his maintenance hemodialysis treatment. He complains of nausea otherwise reports he feels good and offers no new issues. VITAL SIGNS: Temperature 97.4, pulse 75, respiratory rate 18, blood [id number], saturating 99% on 2 liters nasal cannula. Goal dialysis removal today is 2 liters. REVIEW OF SYSTEMS: GENERAL: Patient is seen at the bedside awake, alert, and comfortable in no distress, elderly male, tremulous. Makes eye contact. Tongue is moist. Neck is supple. Tunneled hemodialysis catheter present right chest wall. CARDIAC: S1, S2. Regular rate, 1+ edema in the lower extremities and upper extremities. PULMONARY: Symmetric air entry bilaterally. No tachypnea. No crackle or rales. ABDOMEN: Abdomen is soft and obese, nontender to palpation. SKIN: Skin shows scattered ecchymosis on the upper and lower extremities and fragile papery skin. NEUROLOGIC: He answers appropriately. Is cooperative with the physical examination and oriented to person, place and situation. LABORATORIES: White count 8.2, hemoglobin 11.1. Sodium 141, potassium 4.6. MICROBIOLOGY: Blood cultures with no growth for 72 hours times two sets. INPATIENT MEDICATIONS: Reviewed by myself and no change from prior. PROBLEMS: 1. End-stage renal disease on hemodialysis on Thursday, Thursday and Thursday maintenance schedule. The patient is being dialyzed today. He does not want to stick with the full treatment time and cuts his treatment short which he has been known to do in the outpatient setting as well. Two liters of fluid were removed. His electrolytes and volume status are acceptable. His hypervolemia is slowly improving. 2. Chronic diastolic congestive heart failure. Continue with ultrafiltration and fluid removal as tolerated by hemodynamics. Goal removal for today was 2.5 liters; however, patient cut his treatment time short and we took off 2 liters. He is compliant with oral fluid restriction. 3. Chronic obstructive pulmonary disease (COPD). Chronic without exacerbation. Continues on prednisone, usual nebulizers and supplemental oxygen.
[2018-07-06 06:00] VITALS: BP 115/72
[2018-07-06] MEDS: HEPARIN SOD (PORCINE) 5000 UNITS/ML VIAL SC SCH (06:18)
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
[2018-07-06] MEDS: predniSONE 5 MG TAB PO SCH (09:04)
[2018-07-06] MEDS: DOCUSATE SODIUM 100 MG CAP PO SCH (09:04)
[2018-07-06 09:05] VITALS: BP 115/72
[2018-07-06] MEDS: METOPROLOL TART 25 MG TABLET PO SCH (09:05)
[2018-07-06] MEDS: MIRALAX *UNIT DOSE* 17GM PACKET PO SCH (11:20)
[2018-07-06] MEDS: PANTOPRAZOLE 40MG TAB (PROTONIX) PO SCH (11:20)
[2018-07-06] MEDS: FEBUXOSTAT 40 MG TABLET (ULORIC) PO SCH (11:20)
[2018-07-06] MEDS: ONDANSETRON 4 MG TAB (S0181) PO PRN (11:20)
[2018-07-06] MEDS: CLOPIDOGREL 75 MG TAB PO SCH (11:21)
[2018-07-06] MEDS: IPRATROPIUM 0.5MG/ALBUTEROL 2.5MG INH SOL UD 3ML (DUONEB)(J7620) INH SCH (11:28)
--- NOTE | 2018-07-06 15:41 | IPN ---
DATE: 07/06/2018 SUBJECTIVE: Patient seen and examined this morning at the bedside. He was lying fairly flat in bed at the time of my visit without elevation of the head of the bed and denied any shortness of breath. He complained of nausea during his dialysis treatment yesterday. This is a chronic complaint. He otherwise tolerated his treatment with two liters of fluid removed but did come off a little early. He is discharge pending later today. VITAL SIGNS: Temperature 97.2, pulse 90, respiratory rate 20, blood pressure 115/72, saturating 97% to 99% on two liters nasal cannula. Intake yesterday was 1060. Dialysis yesterday removed two liters. Weight in the bed scale today is 76.2 kg. GENERAL: Patient is seen lying flat in bed, drowsy, easily arousble, in no distress. Sclerae are anicteric. Tongue is moist. Neck is supple. Jugular veins are not elevated. There is a tunneled dialysis catheter present in the right chest wall. CARDIAC: S1, S2, regular rate and rhythm. There is trace edema in all four extremities. LUNGS: Show good air entry bilaterally. No crackles or rales. ABDOMEN: Soft and nontender to palpation. SKIN: Shows scattered ecchymosis and fragile papery skin. NEUROLOGIC: He answers appropriately. He is cooperative with the physical examination and at baseline mentation. EXTREMITIES: There are some toe amputations noted. LABORATORY DATA: White count 8.2, hemoglobin 11.1, platelets 175. Sodium 141. INPATIENT MEDICATIONS: Reviewed by myself and no change from prior. PROBLEMS: 1. End-stage renal disease on hemodialysis on a Thursday, Thursday, Thursday schedule. Patient was dialyzed yesterday. He cut his treatment a little bit short but we were still able to take off two liters. His electrolytes and volume status are acceptable. Next treatment will be on Thursday in the outpatient setting. 2. Anemia related to chronic renal failure. Hemoglobin is at target and he will continue with anemia protocol of end-stage renal disease. 3. Chronic obstructive pulmonary disease (COPD), on his usual two liters of supplemental oxygen without exacerbation. He continues on his home medications. 4. Hypertension. Blood pressures are acceptable. He continues on Lopressor and he has been tolerating ultrafiltration and fluid removal without hypotension of hemodialysis. DISPOSITION: Patient is stable for discharge today from a nephrology point of view and will have his next treatment at his usual outpatient chair on Thursday.
--- NOTE | 2018-07-29 09:37 | DS.PDOC ---
Discharge Summary General Date of Admission Jul 02, 2018 at 20:41 Date of Discharge 07/06/18 Primary Care Physician: Volodymyr Clark M.D. Attending Physician: Jonathan Friend MD Discharge Summary Consults: Dr. Jayesh Bonilla Discharge diagnosis: Hypotension--resolved Hyperkalemia--resolved Diarrhea--resolved End Stage Renal Disease on Hemodialysis Secondary diagnosis (Chronic Conditions): Pulmonary Hypertension: Please note that patient has hx of Severe Pulmonary HTN shown on echocardiogram from 04/2017. It is imperative that patient not be placed on nonrebreather, BIPAP, or intubated as this would potentiate hypoventilation and hypercapnia for patient due to his hx. COPD on 2 liters of O2 via nasal cannula Hypoglycemia Diabetes mellitus type 2 in obese Protein malnutrition End Stage Renal Disease on Hemodialysis MWF schedule DNR status DNI resuscitation status Chronic diastolic CHF Chronic Gout Coronary artery disease Hospital course: 82 yo M was brought into the [facility] ED on 07/02/18 for concern for hyperkalemia and hypotension from when he was at dialysis. Potassium was 7.3 prior to his dialysis prior to hospitalization it seems and systolic BP was in the 90s at patient's dialysis session on day of admission to [facility]. Was sent to [facility] ED from his regularly scheduled dialysis appointment for these acute findings and inability to complete dialysis. Was admitted to [facility] hospital for further workup, evaluation, and management. Patient was able to get a half an hour of dialysis treatment today. In the ED, patient was no longer hypotensive and found to be hypertensive and had a potassium of 5.0. Patient also c/o nausea and a little bit of dizziness while at dialysis. At time of presentation to the admitting resident physician, Dr. Chandra, patient felt well and did not have any acute complaints. He did admit however to having episodes of diarrhea about 4 days prior to presentation. A GI panel was ordered but never performed. Then, it fell off off of the orders, but by then, the diarrhea had resolved. Nephrology was consulted for dialysis and any related management for his ESRD and hyperkalemia. Patient's clinical status improved, hypotension resolved, and he was hemodynamically stable for discharge on 07/06/18. Please see H&P for full details of patient's presentation as necessary. Progress note on date of discharge: Please see Dr. Lawton's progress note on date of discharge 07/06/18 for progress note and physical exam. Please see my progress note for any relevant details about patient on day of discharge. Labs: No new labs were performed on day of discharge due to patient refusal. Blood cx were negative. Imaging on 07/02/18: CXR: There is bibasilar interstitial fibrosis which appears stable. No new infiltrate is seen. Heart is slightly enlarged. There is calcification and tortuosity of the thoracic aorta. The mediastinal silhouette is unchanged. Right central venous catheter is again noted. CT Abdomen/Pelvis without contrast: It showed mild left inguinal hernia containing fat; otherwise no acute pathology was seen. Assessment: Hypotension--resolved Hyperkalemia--resolved Diarrhea--resolved End Stage Renal Disease on Hemodialysis Disposition: Return to [facility]. Follow-up: PRN with PCP Dr. Volodymyr Clark at [facility]. Has dialysis scheduled as outpatient coming up on Thursday as per Nephrology note. Activity: As tolerated Needs 2 Max Assist and unable to move by himself, sit up by self, or stand. Cannot walk. Needs chao lift for transfers. Diet: Renal Diet Encourage oral intake up to 1800 mL/24hr. Medications: please see below for discharge medications/any medication adjustments or changes. Cc: Dr. Volodymyr Clark Time spent on discharge: Greater than 35 minutes. Discharge Medications Scheduled (Nepro with Carb Steady) 1 Liq Liq, 240 ML PO DAILY, (Reported) TAKES AT 1100 Atorvastatin Calcium (Lipitor) 20 Mg Tab, 20 MG PO QHS, (Reported) Clopidogrel Bisulfate (Clopidogrel) 75 Mg Tab, 75 MG PO DAILY, (Reported) TAKES AT 1200 Docusate Sodium (Docusate Sodium) 100 Mg Cap, 100 MG PO DAILY, (Reported) Doxycycline Monohydrate (Doxycycline) 100 Mg Cap, 100 MG PO BID, (Reported) Ergocalciferol (Vitamin D2) (Vitamin D2) 50,000 Unit Cap, 50,000 UNIT PO QMONTH, (Reported) THE 1ST OF EACH MONTH Febuxostat (Uloric) 40 Mg Tab, 40 MG PO Q2D, (Reported) TAKES AT 1200 Gabapentin (Gabapentin) 300 Mg Cap, 300 MG PO DAILY, (Reported) Insulin Glargine,Hum.rec.anlog (Basaglar Kwikpen U-100) 100 Unit/Ml Inj, 8 UNIT SC QHS, (Reported) GIVE AT 2030 Ipratropium/Albuterol Sulfate (Iprat-Albut 0.5-3(2.5) mg/3 ml) 1 Isac Isac, 1 ISAC INH BID, (Reported) Metoprolol Tartrate (Metoprolol Tartrate) 25 Mg Tab, 25 MG PO BID, (Reported) Pantoprazole Sodium (Protonix) 40 Mg Tab, 40 MG PO DAILY, (Reported) TAKES AT 1200 Polyethylene Glycol 3350 (Miralax) 1 Pow Pow, 17 GM PO DAILY, (Reported) TAKES AT 1200 Prednisone (Prednisone) 10 Mg Tab, 10 MG PO DAILY, (Reported) Scheduled PRN Acetaminophen (Tylenol) 325 Mg Tab, 650 MG PO Q4H PRN for PAIN OR FEVER, (Reported) Bisacodyl (Dulcolax) 10 Mg Sup, 10 MG MN DAILY PRN for CONSTIPATION, (Reported) Ipratropium/Albuterol Sulfate (Iprat-Albut 0.5-3(2.5) mg/3 ml) 1 Isac Isac, 1 ISAC INH Q4H PRN for SHORTNESS OF BREATH, (Reported) Nitroglycerin (Nitroglycerin) 0.4 Mg Sub, 0.4 MG SL Q5MP PRN for CHEST PAIN, (Reported) Sodium Phosphate,[place]-Dibasic (Enema Ready To Use) 1 Tejinder Tejinder, 1 TEJINDER [place] DAILY PRN for CONSTIPATION, (Reported) Miscellaneous Medications [Patient Comments] , (Reported) WAITING FOR [facility] TO FAX MED LIST AND EMR Allergies Coded Allergies: MS - No Known Drug Allergy (Verified Allergy, Unknown, 04/15/17) GME ATTESTATION GME ATTESTATION My faculty preceptor for this patient encounter was Dr. Jonathan Friend, and was physically present during the encounter and was fully available. All aspects of the patient interview, examination, medical decision making process, and medical care plan development were reviewed and approved by the faculty preceptor. The faculty preceptor is aware and concurs with the plan as stated in the body of this note and will attest to such by his/her cosignature. MAKENZIE LAWTON DO Jul 29, 2018 08:47
== END 2018-07-06 12:57 | DRG 314 ==
LOC: M ED 16:56 → M ED INP 20:41 → M MS5PR 23:34
PROVIDERS: ADMIT Internal Medicine; ATTEND Family Medicine
PROC: 5A1D70Z Performance of Urinary Filtration, Intermittent, Less than 6 Hours Per Day (ICD-10-PCS; principal; 2018-07-03)
DX: I95.9 Hypotension, unspecified (principal); N18.6 End stage renal disease; I13.2 Hypertensive heart and chronic kidney disease with heart failure and with stage 5 chronic kidney disease, or end stage renal disease; I50.32 Chronic diastolic (congestive) heart failure; E46 Unspecified protein-calorie malnutrition; E87.6 Hypokalemia; I25.10 Atherosclerotic heart disease of native coronary artery without angina pectoris; E11.40 Type 2 diabetes mellitus with diabetic neuropathy, unspecified; E11.21 Type 2 diabetes mellitus with diabetic nephropathy; E11.22 Type 2 diabetes mellitus with diabetic chronic kidney disease; Z66 Do not resuscitate; E11.51 Type 2 diabetes mellitus with diabetic peripheral angiopathy without gangrene; E66.9 Obesity, unspecified; E11.649 Type 2 diabetes mellitus with hypoglycemia without coma; M10.30 Gout due to renal impairment, unspecified site; E78.5 Hyperlipidemia, unspecified; J44.9 Chronic obstructive pulmonary disease, unspecified; D63.1 Anemia in chronic kidney disease; I27.20 Pulmonary hypertension, unspecified; R19.7 Diarrhea, unspecified; K21.9 Gastro-esophageal reflux disease without esophagitis; Z99.2 Dependence on renal dialysis; Z87.891 Personal history of nicotine dependence; Z99.81 Dependence on supplemental oxygen; Z79.02 Long term (current) use of antithrombotics/antiplatelets; Z79.52 Long term (current) use of systemic steroids; Z68.31 Body mass index [BMI] 31.0-31.9, adult

== ENCOUNTER → 2018-08-05 | Outpatient (CLI) | payer MEDICARE, MEDICAID ==
[~2018-08-05] MED LIST changes: +DOXY-350 PO; +PATIENT COMMENTS
--- NOTE | 2018-08-05 13:50 | REP ---
Noncontrast CT study of the brain: History: Injury in a fall. Comparison study: May 17, 2018. CT findings: Digital preliminary watch train inspector radiograph is unremarkable. Bone window settings show no evidence of skull fracture. No bony destructive lesion is seen. Vascular calcification is again noted in the distal vertebral and distal carotid arteries. No significant scalp hematoma is appreciated. There is advanced diffuse cerebral atrophy. Small vessel changes are seen in the periventricular white matter as before. There is no evidence of infarction, intracranial hemorrhage, extra-axial fluid collection, mass, or midline shift. Impression: Diffuse atrophy and vascular calcification. No acute intracranial abnormality. Electronically Signed by Brad Posada MD 08/05/2018 02:10 P
== END ==
LOC: M RAD 12:31
PROVIDERS: ATTEND Student in an Organized Health Care Education/Training Program
DX: S09.90XA Unspecified injury of head, initial encounter (principal); X58.XXXA Exposure to other specified factors, initial encounter; Y92.89 Other specified places as the place of occurrence of the external cause; M62.50 Muscle wasting and atrophy, not elsewhere classified, unspecified site; I25.10 Atherosclerotic heart disease of native coronary artery without angina pectoris

== ENCOUNTER 2019-02-07 15:33 | Inpatient (IN) | payer MEDICARE, MEDICAID ==
[~2019-02-07] VITALS: Ht 162.6 cm; Wt 71.7 kg
[~2019-02-07 15:33] MED LIST changes: -FEBU40TA PO; +FEBU40TA4 PO; +NITR0.4S14 PO; -NITR0.4S14 SL; -OMEP20CA3 PO; +OMEP20CA4 PO; -OMEP40CA2 PO; +OMEP40CA97 PO
[2019-02-07] MEDS ORDERED: ALBUTEROL SULFATE 2.5 MG/0.5 ML INH NEB SOLN INH ONE (16:15)
[2019-02-07] MEDS ORDERED: IPRATROPIUM 0.5MG/ALBUTEROL 2.5MG INH SOL UD 3ML (DUONEB)(J7620) NEB ONE (16:15)
--- NOTE | 2019-02-07 16:29 | REP ---
Clinical: Cough and dyspnea. Comparison: 07/02/2018. Findings: Cardiomegaly and evidence for pulmonary vascular congestion with interstitial edema. Basilar atelectasis cannot be excluded. Double-lumen dialysis catheter with tip in the SVC. No obvious effusion. No pneumothorax. Skeletal structures intact. Impression: Findings suggest pulmonary vascular congestion and interstitial edema with possible basilar atelectasis. Electronically Signed by Ramesh Mc MD 02/07/2019 04:20 P
[2019-02-07 16:30] LABS: ABG BASE EXCESS -8.6 (-2.0-2.0); ABG HCO3 17.4 MEQ/L (22.0-26.0); ABG O2 SATURATION 96.4 % (95.0-99.0); ABG PARTIAL PRESSURE CO2 37.4 mmHg (35.0-45.0); ABG PARTIAL PRESSURE O2 96.9 mmHg (75.0-100.0); ABG STANDARD HCO3 17.6 MEQ/L (22.0-26.0); ABG TOTAL CO2 18.5 MEQ/L (23.0-31.0); ABG pH (ARTERIAL) 7.285 UNITS (7.350-7.450)
[2019-02-07] MEDS ORDERED: ACET-908 PO (16:46)
[2019-02-07] MEDS ORDERED: HYDR-3713 PO (16:46)
[2019-02-07] MEDS ORDERED: ONDA4TAB5 PO (16:46)
[2019-02-07] MEDS ORDERED: DULC10SU2 PR (16:47)
[2019-02-07] MEDS ORDERED: CAL-1CHW PO (16:47)
[2019-02-07] MEDS ORDERED: CITA10TA6 PO (16:47)
[2019-02-07] MEDS ORDERED: GLUC1KIT IM (16:47)
[2019-02-07] MEDS ORDERED: CARV6.25 PO (16:47)
[2019-02-07] MEDS ORDERED: MUPI2OI TOP (16:47)
[2019-02-07 17:00] LABS: BASO % 0.3 % (0.0-1.0); EOS % 0.1 % (0.0-3.0); HEMATOCRIT 39.2 % (42.0-52.0); HEMOGLOBIN 11.7 g/dl (13.5-17.5); LYMPH # 0.7 10^3/uL (1.5-5.0); LYMPH % 9.3 % (24.0-44.0); MEAN CORPUSCULAR HEMOGLOBIN 30.7 pg (27.0-33.0); MEAN CORPUSCULAR HGB CONC 29.8 g/dl (32.0-36.5); MEAN CORPUSCULAR VOLUME 102.9 fl (80.0-96.0); MONO # 0.1 10^3/uL (0.0-0.8); MONO % 1.7 % (0.0-5.0); NEUTROPHILS # 6.3 10^3/uL (1.5-8.5); NEUTROPHILS % 87.9 % (36.0-66.0); PLATELET COUNT, AUTOMATED 245 10^3/uL (150-450); RED BLOOD COUNT 3.81 10^6/uL (4.30-6.10); WHITE BLOOD COUNT 7.1 10^3/uL (4.0-10.0)
[2019-02-07 17:46] LABS: ALBUMIN 2.9 GM/DL (3.2-5.2); ALT/SGPT 10 U/L (12-78); BILIRUBIN,DIRECT 0.1 MG/DL (0.0-0.2); BILIRUBIN,TOTAL 0.4 MG/DL (0.2-1.0); BLOOD UREA NITROGEN 79 MG/DL (7-18); CARBON DIOXIDE LEVEL 23 MEQ/L (21-32); CHLORIDE LEVEL 107 MEQ/L (98-107); CK-MB VALUE MASS 2.9 NG/ML (<3.6); CPK CREATINE PHOSPHOKINASE 40 U/L (39-308); GLOMERULAR FILTRATION RATE 4.4 (>35); GLUCOSE, FASTING 108 MG/DL (70-100); MB/CK RELATIVE INDEX 7.25 (< OR =4); SODIUM LEVEL 139 MEQ/L (136-145); THYROXINE (T4) 7.6 UG/DL (4.5-12.0); TOTAL PROTEIN 6.4 GM/DL (6.4-8.2); TROPONIN I 0.02 NG/ML (< 0.10)
[2019-02-07] MEDS ORDERED: SODIUM BICARBONATE 8.4% INJ 50 ML SYRINGE IV STA (17:51)
[2019-02-07] MEDS ORDERED: DEXTROSE 50% 50 ML SYRINGE IV STA (17:51)
[2019-02-07 17:58] LABS: POTASSIUM SERUM 7.5 MEQ/L (3.5-5.1)
[2019-02-07 17:59] LABS: NT-PRO BNP > 175000 PG/ML (<450)
[2019-02-07] MEDS ORDERED: HumuLIN R (REGULAR) INSULIN (NovoLIN R) **100U/ML** PER UNIT IV ONE (18:00)
[2019-02-07] MEDS ORDERED: SOD POLYSTYRENE SULFONATE SUSP 15 GM/60 ML UD PO ONE ×2 (18:00→22:00)
[2019-02-07] MEDS ORDERED: CALCIUM GLUCONATE 1,000 MG in D5W MINI-BAG PLUS 100 ML IV ONE (18:00)
[2019-02-07] MEDS ORDERED: IPRATROPIUM 0.5MG/ALBUTEROL 2.5MG INH SOL UD 3ML (DUONEB)(J7620) NEB PRN (19:00)
[2019-02-07] MEDS ORDERED: CALCIUM CARBONATE 500 MG CHEW U/D PO PRN (19:00)
[2019-02-07] MEDS ORDERED: NITROGLYCERIN 0.4 MG SUBL TABLET SL PRN (19:00)
[2019-02-07] MEDS ORDERED: ACETAMINOPHEN TAB 650MG DOSE (2X325MG) PO PRN (19:00)
[2019-02-07] MEDS ORDERED: BISACODYL 10 MG SUPP PR PRN (19:00)
[2019-02-07] MEDS ORDERED: FLEET ENEMA PR PRN (19:00)
[2019-02-07] MEDS ORDERED: GLUCAGON FOR INJ 1 MG VIAL (J1610) SC PRN (19:15)
[2019-02-07] MEDS ORDERED: GLUCOSE 4 GM CHEW TABLET PO PRN (19:15)
--- NOTE | 2019-02-07 19:58 | HPEPDOC ---
General Date of Admission Feb 07, 2019 at 18:31 Date of Service: Feb 07, 2019 Chief Complaint The patient is a 83-year-old male admitted with a reason for visit of Esrd On Hemodialysis;Hyperkalemia;Noncompliance. Source: Patient, Old records Exam Limitations: Hard of hearing Timing/Duration: Unsure Severity: Moderate Associated Symptoms: Shortness of breath History of Present Illness 83-year-old male who [facility]. At baseline he has end-stage renal disease that is hemodialysis requiring. He is supposed to dialyze 3 times a week. He has been on dialysis for 3 years. While at the [facility] he has been refusing hemodialysis. He has become short of breath, which is his greatest complaint and he has developed hyperkalemia with a serum potassium of 7.5. He has not had any symptoms such as tachy- or prince- arrhythmia or chest pain. He states he doesn't like dialysis and he doesn't like to do it. He states it makes him sick. He states this happens within 8 minutes of starting hemodialysis, and so he then demands to be taken off. The patient has apparently had multiple episodes of hyperkalemia in the past without ill effect. The patient states that he otherwise has very good appetite; he has not had any nausea or vomiting. Home Medications Scheduled Carvedilol (Carvedilol) 6.25 Mg Tablet, 6.25 MG PO BID, (Reported) Citalopram Hydrobromide (Citalopram HBr) 10 Mg Tablet, 10 MG PO DAILY, (Reported) Clopidogrel Bisulfate (Clopidogrel) 75 Mg Tab, 75 MG PO DAILY, (Reported) Ergocalciferol (Vitamin D2) (Vitamin D2) 50,000 Unit Cap, 50,000 UNIT PO QMONTH, (Reported) THE 1ST OF EACH MONTH Febuxostat (Uloric) 40 Mg Tab, 40 MG PO Q2D, (Reported) Insulin Glargine,Hum.rec.anlog (Basaglar Kwikpen U-100) 100 Unit/Ml Inj, 8 UNIT SC QHS, (Reported) GIVE AT 2030 Ipratropium/Albuterol Sulfate (Iprat-Albut 0.5-3(2.5) mg/3 ml) 1 Lanette Lanette, 1 VIAL INH BID, (Reported) Mupirocin (Mupirocin) 22 Gm Oint...g., 1 APPLIC TOP 3XW, (Reported) SENT TO DIALYSIS TO BE APPLIED TO OPEN AREA NEAR CVC EXIT ON MON, THU, FRI Ondansetron HCl (Ondansetron HCl) 4 Mg Tablet, 4 MG PO 3XW, (Reported) TAKE AT 1500 ON MON, WED, FRI BEFORE DIALYSIS Pantoprazole Sodium (Protonix) 40 Mg Tab, 40 MG PO DAILY, (Reported) Prednisone (Prednisone) 10 Mg Tab, 10 MG PO DAILY, (Reported) Scheduled PRN Acetaminophen (Acetaminophen) 325 Mg Tablet, 650 MG PO Q4H PRN for PAIN / FEVER, (Reported) Bisacodyl (Dulcolax) 10 Mg Supp.rect, 10 MG VT DAILY PRN for CONSTIPATION, (Reported) Calcium Carbonate (James-Gest) 200 Mg Tab.chew, 400 MG PO Q2H PRN for HEARTBURN/INDIGESTION, (Reported) Glucagon,Human Recombinant (Glucagon Emergency Kit) 1 Mg Vial, 1 MG IM ASDIRECTED PRN for HYPOGLYCEMIA, (Reported) Hydrocodone/Acetaminophen (Hydrocodone-Acetamin 5-325 mg) 1 Each Tablet, 1 TAB PO 3XW PRN for PAIN PREDIALYSIS, (Reported) GIVE 30 MINUTES BEFORE DIALYSIS AT 1500 ON THU, THU, FRI Ipratropium/Albuterol Sulfate (Iprat-Albut 0.5-3(2.5) mg/3 ml) 1 Lanette Lanette, 1 VIAL NEB Q4H PRN for SOB/WHEEZING, (Reported) Nitroglycerin (Nitroglycerin) 0.4 Mg Sub, 0.4 MG PO NITRO PRN for CHEST PAIN, (Reported) Sodium Phosphate,[place]-Dibasic (Enema Ready To Use) 1 Tejinder Tejinder, 1 TEJINDER [place] DAILY PRN for CONSTIPATION, (Reported) Allergies Coded Allergies: No Known Drug Allergies (Verified Allergy, Unknown, 02/07/19) Past Medical History Medical History Past medical history is remarkable for coronary artery disease, essential hypertension, 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, end- stage renal disease that is hemodialysis requiring, dyslipidemia, chronic hypoxic respiratory failure due to oxygen dependent COPD, chronic diastolic congestive heart failure, dyslipidemia, prior episodes of hyperkalemia Surgical History Bilateral great toe amputations, AV fistula, prior placement of permacath Family History Significant Family History: Cancer, Heart disease Social History * Smoker: former Smoker (patient states he quit 10 years ago) Alcohol: Denies (patient states he quit 10 years ago) Drugs: denies Psychosocial History: No pertinent psych hx 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 moist/pink, Tongue Midline, Nares Patent Neck Exam: Positive: Supple; Negative: JVD, thyromegaly Chest Exam: Positive: Clear to auscultation, Normal air movement Heart Exam: Positive: Rate Normal, Regular Rhythm, Normal S1, Normal S2; Negative: Murmurs, Rubs Abdomen Exam: Positive: Normal bowel sounds, Soft; Negative: Tenderness, Hepatospenomegaly Extremity Exam: Positive: Normal pulses, Other (patient has chronic vascular changes to both feet with some discoloration and bilateral great toe amputations are apparent); Negative: Clubbing, Cyanosis, Edema Skin Exam: Positive: Nl turgor and temperature, Other skin issue (patient has some scaling to his legs) Neuro Exam: Positive: Normal Speech, Cranial Nerves 3-12 NL Psych Exam: Positive: Mental status NL, Mood NL, Oriented x 3 Vital Signs Vital Signs Date Time Temp Pulse Resp B/P (MAP) Pulse Ox O2 Delivery O2 Flow Rate FiO2 02/07/19 18:49 74 98 02/07/19 18:45 169/74 (105) 02/07/19 15:54 19 Nasal Cannula 2.0 02/07/19 15:54 98.1 Laboratory Data Labs 24H Laboratory Tests 2 02/07/19 16:16: Immature Granulocyte % (Auto) 0.7, Neutrophils (%) (Auto) 87.9H, Lymphocytes (%) (Auto) 9.3L, Monocytes (%) (Auto) 1.7, Eosinophils (%) (Auto) 0.1, Basophils (%) (Auto) 0.3, Neutrophils # (Auto) 6.3, Lymphocytes # (Auto) 0.7L, Monocytes # (A uto) 0.1, Eosinophils # (Auto) 0.0, Basophils # (Auto) 0.0, Nucleated Red Blood Cells % (auto) 0.0, Anion Gap 9, Glomerular Filtration Rate 4.4L, Lactic Acid Level 1.3, Calcium Level 8.0L, Total Bilirubin 0.4, Direct Bilirubin 0.1, Aspartate Amino Transf (AST/SGOT) 5L, Alanine Aminotransferase (ALT/SGPT) 10L, Alkaline Phosphatase 87, Total Creatine Kinase 40, Creatine Kinase MB 2.9, Creatine Kinase MB Relative Index 7.25H, Troponin I 0.02, KS-Ver-P-Type Natriuretic Peptide > [id number], Total Protein 6.4, Albumin 2.9L, Albumin/Globulin Ratio 0.83L, Thyroid Stimulating Hormone (TSH) 4.850H, Thyroxine (T4) 7.6 02/07/19 16:17: Blood Gas Bicarbonate Standard 17.6L, Arterial Blood pH 7.285L, Arterial Blood Partial Pressure CO2 37.4, Arterial Blood Partial Pressure O2 96.9, Arterial Blood Total CO2 18.5L, Arterial Blood HCO3 17.4L, Arterial Blood Base Excess - 8.6L, Arterial Blood Oxygen Saturation 96.4 02/07/19 18:54: Bedside Glucose (Misc Panel) 170H CBC/BMP Laboratory Tests 02/07/19 16:16 Microbiology Microbiology 02/07/19 Respiratory Virus Panel (PCR) (HUMAIRA) - Final, Complete 02/07/19 Blood Culture, Received Pending Assessment/Plan 1. Hyperkalemia. This is recurrent. Patient has been noncompliant with his dialysis. Patient has received initial intervention inclusive of nebulization treatments, calcium gluconate, dextrose, insulin, and Kayexalate. We will continue to monitor his response. We anticipate he will also receive hemodialysis for additional correction... if he is cooperative. 2. Ojw-niqcejx-kspxhmfnp diabetes mellitus. Patient has been restored to his basal bolus insulin. In addition, he has sliding scale insulin to maintain glycemic control. 3. Essential hypertension. Blood pressure is currently well controlled on his medication regimen, which will be continued. 4. Chronic kidney disease stage V. The patient is hemodialysis requiring, but has been noncompliant. He will continue his schedule where possible. This will help with electrolyte and fluid balance management. 5. Chronic hypoxic respiratory failure due to oxygen dependent COPD The patient did have some shortness of breath. This was felt to be more due to fluid overload than COPD exacerbation. He will continue with his nebulization treatments. He does not have coarse breath sounds or active wheezing and so he does not require steroids at this time. Hemodialysis will help with any fluid overload. Patient does have underlying chronic diastolic congestive heart failure. Plan / VTE VTE Prophylaxis Ordered?: Yes (patient is receiving subcutaneous heparin) Plan Activity: Continue Current Diagnostics: Check Labs (monitor serial electrolytes), Repeat Labs in AM Anticipated Discharge: Long Term Advanced Directives: MOLST Form is available (per review of the patient's medical record. Patient does have a MOLST form that states he is to be DNR and DNI. It was apparently last seen over at [facility]. It does not appear to have been scanned into his medical record.) CLARITZA VILLAFUERTE MD Feb 07, 2019 19:58
[2019-02-07 20:00] VITALS: BP_SYST 145; BP_SYST 158; BP_SYST 164; BP_DIAS 73; BP_DIAS 74; BP_DIAS 80
[2019-02-07] MEDS: IPRATROPIUM 0.5MG/ALBUTEROL 2.5MG INH SOL UD 3ML (DUONEB)(J7620) INH SCH (20:00)
--- NOTE | 2019-02-07 20:41 | ECGEPIP ---
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
[2019-02-07] MEDS: LEVEMIR (INSULIN DETEMIR) 1 UNITS/0.01ML SC SCH (20:48)
[2019-02-07] MEDS: HumaLOG INSULIN (NovoLOG) PER UNIT SC SCH (20:48)
[2019-02-07] MEDS: CARVedilol 6.25 MG TAB PO SCH (20:49)
[2019-02-07] MEDS: NORCO, ANEXSIA 5/325MG TABLET (HYDROcodone/ACETAMINOPHEN) PO PRN (20:50)
[2019-02-07] MEDS: HEPARIN SOD (PORCINE) 5000 UNITS/ML VIAL SC SCH (20:50)
[2019-02-07 22:17] LABS: CREATININE FOR GFR 12.3 MG/DL (0.70-1.30); GLOMERULAR FILTRATION RATE 4.2 (>35); POTASSIUM SERUM 6.5 MEQ/L (3.5-5.1)
[2019-02-08] VITALS (7 sets, daily range): BP systolic 124–164; BP diastolic 68–84
[2019-02-08] MEDS: NORCO, ANEXSIA 5/325MG TABLET (HYDROcodone/ACETAMINOPHEN) PO PRN (00:08)
[2019-02-08 06:03] LABS: HEMOGLOBIN 11.1 g/dl (13.5-17.5); MEAN CORPUSCULAR HEMOGLOBIN 30.6 pg (27.0-33.0); MEAN CORPUSCULAR VOLUME 101.9 fl (80.0-96.0); PLATELET COUNT, AUTOMATED 199 10^3/uL (150-450); RED BLOOD COUNT 3.63 10^6/uL (4.30-6.10); WHITE BLOOD COUNT 7.3 10^3/uL (4.0-10.0)
[2019-02-08 06:23] LABS: CREATININE FOR GFR 11.9 MG/DL (0.70-1.30); GLOMERULAR FILTRATION RATE 4.4 (>35); MAGNESIUM LEVEL 1.8 MG/DL (1.8-2.4); POTASSIUM SERUM 6.3 MEQ/L (3.5-5.1)
[2019-02-08] MEDS: HumaLOG INSULIN (NovoLOG) PER UNIT SC SCH ×4 (07:27→20:40)
[2019-02-08] MEDS: IPRATROPIUM 0.5MG/ALBUTEROL 2.5MG INH SOL UD 3ML (DUONEB)(J7620) INH SCH ×2 (07:51→20:13)
[2019-02-08] MEDS: HEPARIN SOD (PORCINE) 5000 UNITS/ML VIAL SC SCH ×2 (08:51→21:19)
[2019-02-08] MEDS: PANTOPRAZOLE 40MG TAB (PROTONIX) PO SCH (08:51)
[2019-02-08] MEDS: CARVedilol 6.25 MG TAB PO SCH ×2 (08:52→21:19)
[2019-02-08] MEDS ORDERED: HumuLIN R (REGULAR) INSULIN (NovoLIN R) **100U/ML** PER UNIT IV STA (08:52)
[2019-02-08] MEDS: CLOPIDOGREL 75 MG TAB PO SCH (08:52)
[2019-02-08] MEDS: predniSONE 10 MG TAB PO SCH (08:52)
[2019-02-08] MEDS ORDERED: DEXTROSE 50% 50 ML SYRINGE IV STA (08:52)
[2019-02-08] MEDS ORDERED: CALCIUM GLUCONATE 1,000 MG in D5W MINI-BAG PLUS 100 ML IV ONE (09:00)
[2019-02-08] MEDS ORDERED: SOD POLYSTYRENE SULFONATE SUSP 15 GM/60 ML UD PO ONE (11:00)
[2019-02-08] MEDS ORDERED: HEPARIN 1,000 UNITS/ML 10ML VIAL (FOR RADIOLOGY& DIALYSIS ONLY) XX ONE (11:45)
[2019-02-08] MEDS ORDERED: HEPARIN 1,000 UNITS/ML 10ML VIAL (FOR RADIOLOGY& DIALYSIS ONLY) IV ONE (11:45)
[2019-02-08] MEDS: CitaloPRAM (CeleXA) 10 MG TABLET PO SCH (14:12)
--- NOTE | 2019-02-08 14:27 | CR ---
DATE OF CONSULTATION: 02/08/2019 REQUESTING PHYSICIAN: Almaz Canales MD REASON FOR CONSULTATION: Hyperkalemia and need for dialysis. HISTORY OF PRESENT ILLNESS: Mr. Rodriguez is a 83-year-old gentleman with known history of diabetes, hypertension, congestive heart failure, end-stage renal disease, coronary artery disease and peripheral vascular disease. He also has a history of advanced COPD and has been on chronic oxygen therapy. He is currently in the [facility] due to multiple comorbid conditions and has not been able to take care of himself. He has been chronically noncompliant with dialysis treatment despite being in [facility] and has missed four of his last dialysis treatments. He was brought to the emergency room with shortness of breath last evening and was found to have mild congestive heart failure. More importantly, his potassium level was 7.5 due to several missed dialysis treatments. A nephrology consultation was requested by the emergency room physician. The patient was admitted last evening and his hyperkalemia was treated medically. He is in need for dialysis; however, has been refusing dialysis even here in the hospital. MEDICATIONS: His [facility] medications include: - Carvedilol 6.25 mg b.i.d. - citalopram 10 mg daily - Plavix 75 mg daily - vitamin D 50,000 units once a month - Uloric 40 mg daily - insulin Basaglar 8 units at bedtime - DuoNebs as needed for dyspnea - Zofran 4 mg as needed for nausea - Protonix 40 mg daily - prednisone 10 mg daily - He also uses nitroglycerin as needed for chest pain. - Tylenol 650 mg as needed for pain - Dulcolax 10 mg as needed for constipation - He has been chronically on hydrocodone and acetaminophen 5/325 mg prior to each dialysis. ALLERGIES: The patient has no known drug allergies. PAST MEDICAL AND SURGICAL HISTORY: Significant for: Coronary artery disease. Essential hypertension. Type 2 diabetes. End-stage renal disease requiring maintenance hemodialysis. Dyslipidemia. Chronic hypoxic respiratory failure on chronic oxygen therapy with COPD. History of diastolic congestive heart failure. PAST SURGICAL HISTORY: Significant for: Left big toe partial amputation and right big toe and third toe partial amputations. 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 PERSONAL AND SOCIAL HISTORY: The patient is a former smoker and denies any alcohol or drug use. He is currently in the [facility]. FAMILY HISTORY: Significant for cancer, heart disease. He denies any family history for end-stage renal disease. REVIEW OF SYSTEMS: The patient has been chronically short of breath but he was more short of breath yesterday when he was sent to the emergency room. There is no history of fever or chills. Denies any nosebleeds or sore throat. Cardiovascular system significant for chronic dyspnea and requires oxygen. Respiratory system is negative for hemoptysis or pleuritic type chest pain. GI system negative for vomiting or diarrhea. system negative for dysuria or hematuria. Endocrine system is significant for type 2 diabetes and secondary hyperparathyroidism. Psychosocial system significant for chronic noncompliance with dialysis treatments. He was quite aggressive and combative yesterday in the emergency room. Hematological system is significant for anemia and no chronic anticoagulation. Musculoskeletal system significant for inability to ambulate and generalized weakness. PHYSICAL EXAMINATION: Temperature 97 degrees Fahrenheit, heart rate 74 per minute and respiratory rate 20 per minute. Blood pressure 124/80 mmHg and oxygen saturation 98% on 2 liters oxygen. Head is atraumatic. Pupils equal and reactive to light and sclera is anicteric. There is no oral thrush or ulcers. Neck is supple and jugular venous distention (JVD) is only mildly elevated. He has an internal jugular vein hemodialysis catheter on right side with exit site on right upper chest without any signs of infection. His heart sounds are regular and lungs have bilateral scattered rhonchi and mild expiratory wheezing. Abdomen soft and nontender. Bowel sounds are normal. Extremities have no cyanosis or clubbing. His left big toe and right big toe and third toes are partially surgically absent. Neurologically he is awake and was able to answer my questions appropriately. LABORATORY DATA: On admission WBC count 7.1, hemoglobin 11.7 and hematocrit 39.2. Platelets 245. Sodium 139, potassium 7.5, CO2 23, BUN 79 and creatinine 11.8. Blood gas showed a pH of 7.28, pCO2 37.4, pO2 97 and bicarb 17. After medical treatment his repeat potassium was 6.5 last evening and this morning 6.3. BUN is 80 and creatinine 11.9. Chest x-ray done in the emergency room was consistent with congestive heart failure and pulmonary vascular congestion. PROBLEMS: 1. Hyperkalemia. Patient has severe hyperkalemia due to several missed dialysis treatments and noncompliance with diet. Medically treated last evening with some improvement. He will need dialysis, however, he has been refusing dialysis this morning. The hospitalist and nursing staff have discussed with him, however the patient declined to go for dialysis. I have now talked to him and he has agreed to go for dialysis. He will be dialyzed today and most likely again tomorrow due to missed dialysis treatments all week. 2. End-stage renal disease. The patient has been chronically noncompliant with dialysis treatments and has missed the last four dialysis treatments. He is now willing to go for dialysis, but he was refusing it this morning. 3. Congestive heart failure. This is related to volume overload caused by missed dialysis treatments. The patient is intolerant for aggressive fluid removal and we will try to remove 1.5 liters today and again 1.5 liters tomorrow. This will correct his volume status. 4. Anemia. His anemia is mild and stable and does not need any urgent intervention. Thank you for involving me in the care of Mr. Rodriguez. I will follow him along with you.
--- NOTE | 2019-02-08 17:32 | IPNPDOC ---
Text Note Date of Service The patient was seen on 02/08/19. NOTE SUBJECTIVE: Mr. Rodriguez is an 83-year-old male admitted with hyperkalemia last night. He has not suffered any ill effects. He did become confrontational and combative last night over taking his meds. The patient has end-stage renal disease with which he is often noncompliant. This morning the patient adamantly stated he did not wish to go to hemodialysis today. He has been persuaded by his vp & general counsel. OBJECTIVE: Please see vital signs below Physical exam: HENT: Neck is supple with no adenopathy or thyromegaly, oral mucosa is moist, he has mild scleral injection Cardiovascular: Regular rate and rhythm, no appreciable murmur. Respiratory: Good air movement, otherwise clear to auscultation. Abdomen: Soft, nontender, nondistended, some central obesity. 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 Hyperkalemia. The patient did have some partial response with medical management inclusive of dextrose, insulin, calcium gluconate, Kayexalate. Serum potassium did come down to 6.3. Patient has refused hemodialysis for at least the past week. He is agreeable today. 2. End-stage renal disease. The patient, in theory is hemodialysis requiring. He frequently refuses hemodialysis and appears to remain fairly stable. He may consider stopping it. He was agreeable to hemodialysis today. 3. CODE STATUS. The patient does have a MOLST form in his chart that states he is DNR and DNI. The patient also states he is DNR and DNI and is not to have a feeding tube and so forth. We will need to determine if he truly wishes to stop hemodialysis entirely and be made comfort care. VS,Fishbone, I+O VS, Fishbone, I+O Laboratory Tests 02/07/19 21:25 02/08/19 05:48 Vital Signs Date Time Temp Pulse Resp B/P (MAP) Pulse Ox O2 Delivery O2 Flow Rate FiO2 02/08/19 16:00 2.0 02/08/19 15:45 97.4 90 18 140/80 (100) 96 Nasal Cannula 02/08/19 04:00 97 I&O- Last 24 Hours up to 6 AM 02/08/19 06:00 Intake Total 550 ml Output Total 0 ml Balance 550 ml CLARITZA VILLAFUERTE MD Feb 08, 2019 17:32
[2019-02-08] MEDS: LEVEMIR (INSULIN DETEMIR) 1 UNITS/0.01ML SC SCH (22:16)
[2019-02-09] VITALS: BP 128/70
[2019-02-09 04:00] VITALS: BP 144/72
[2019-02-09] MEDS ORDERED: ONDANSETRON 4MG/2ML VIAL (J2405) IV PRN (06:45)
[2019-02-09] MEDS: DEXTROSE 50% 50 ML SYRINGE IV PRN ×2 (06:51→07:00)
[2019-02-09] MEDS ORDERED: ONDANSETRON 4MG/2ML VIAL (J2405) IV ONE (07:00)
[2019-02-09] MEDS: IPRATROPIUM 0.5MG/ALBUTEROL 2.5MG INH SOL UD 3ML (DUONEB)(J7620) INH SCH ×2 (07:14→19:38)
[2019-02-09] MEDS: HumaLOG INSULIN (NovoLOG) PER UNIT SC SCH ×4 (07:30→20:35)
[2019-02-09 07:59] VITALS: BP 132/59
[2019-02-09 08:10] LABS: HEMATOCRIT 35.2 % (42.0-52.0); HEMOGLOBIN 10.4 g/dl (13.5-17.5); MEAN CORPUSCULAR HEMOGLOBIN 30.5 pg (27.0-33.0); MEAN CORPUSCULAR HGB CONC 29.5 g/dl (32.0-36.5); MEAN CORPUSCULAR VOLUME 103.2 fl (80.0-96.0); PLATELET COUNT, AUTOMATED 200 10^3/uL (150-450); RED BLOOD COUNT 3.41 10^6/uL (4.30-6.10); WHITE BLOOD COUNT 5.8 10^3/uL (4.0-10.0)
[2019-02-09 08:37] LABS: CALCIUM LEVEL 7.8 MG/DL (8.8-10.2); CREATININE FOR GFR 5.23 MG/DL (0.70-1.30); GLOMERULAR FILTRATION RATE 11.3 (>35); POTASSIUM SERUM 3.9 MEQ/L (3.5-5.1)
[2019-02-09] MEDS ORDERED: FEBUXOSTAT 40 MG TABLET (ULORIC) PO SCH (09:00)
[2019-02-09] MEDS ORDERED: HEPARIN 1,000 UNITS/ML 10ML VIAL (FOR RADIOLOGY& DIALYSIS ONLY) XX ONE (10:15)
[2019-02-09] MEDS ORDERED: HEPARIN 1,000 UNITS/ML 10ML VIAL (FOR RADIOLOGY& DIALYSIS ONLY) IV ONE (10:15)
--- NOTE | 2019-02-09 12:40 | IPN ---
DATE OF VISIT: 02/09/2019 Mr. Rodriguez is seen during hemodialysis this morning. He is resting comfortably and denies any problems. Nursing staff reports no issues this morning. Yesterday he was refusing dialysis, however this morning he did not have any problem. On physical exam, temperature 97.8 degrees Fahrenheit, heart rate 60 per minute and respiratory rate 20 per minute. Blood pressure 132/59 mmHg and oxygen saturation 95% on 2 liters oxygen. His head is atraumatic. Neck is supple and jugular venous distention (JVD) not abnormally elevated. Right internal jugular vein PermaCath is being used for dialysis today. His heart sounds are regular and lungs with scattered rhonchi. Abdomen soft and nontender, and bowel sounds are normal. Extremities without any cyanosis or clubbing. Today's labs show WBC count 5.8, hemoglobin 10.4 and hematocrit 35.2. Platelets 200. Sodium 139, potassium 3.9, CO2 29, BUN 23 and creatinine 5.23. Glucose 150 and calcium 7.8. PROBLEMS: 1. Hyperkalemia. It was related to noncompliance with dialysis treatment and has already corrected with dialysis yesterday. No other intervention is indicated. 2. End-stage renal disease. Patient has been noncompliant with dialysis and has missed multiple treatments. He was dialyzed yesterday and we are dialyzing him again today. He is tolerating dialysis treatment well so far. 3. Congestive heart failure. Volume status has improved and 1.5 liters of fluid was removed yesterday. We are trying to remove another 1.5 liters today. She is tolerating it well so far. 4. Anemia. His anemia is stable and does not need any intervention at this point. 5. 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 He remains on 2 liters oxygen, which is his baseline. DISPOSITION: From a renal standpoint, patient is likely to be ready for discharge tomorrow.
[2019-02-09] MEDS: HEPARIN SOD (PORCINE) 5000 UNITS/ML VIAL SC SCH ×2 (13:04→20:31)
[2019-02-09] MEDS: CARVedilol 6.25 MG TAB PO SCH ×2 (13:05→20:30)
[2019-02-09] MEDS: CitaloPRAM (CeleXA) 10 MG TABLET PO SCH (13:05)
[2019-02-09] MEDS: predniSONE 10 MG TAB PO SCH (13:05)
[2019-02-09] MEDS: PANTOPRAZOLE 40MG TAB (PROTONIX) PO SCH (13:05)
[2019-02-09] MEDS: CLOPIDOGREL 75 MG TAB PO SCH (13:06)
[2019-02-09 13:09] VITALS: BP 129/69
[2019-02-09 15:38] VITALS: BP 128/72
--- NOTE | 2019-02-09 16:35 | IPNPDOC ---
Text Note Date of Service The patient was seen on 02/09/19. NOTE SUBJECTIVE: Mr. Rodriguez is an 83-year-old male admitted with hyperkalemia. He has not suffered any ill effects.The patient has end-stage renal disease with which he is often noncompliant. He was persuaded by his admitting clerk undergo dialysis yesterday and he is again agreeable to that today. However, he has been refusing food and medication. OBJECTIVE: Please see vital signs below Physical exam: HENT: Neck is supple with no adenopathy or thyromegaly, oral mucosa is moist, he has mild scleral injection Cardiovascular: Regular rate and rhythm, no appreciable murmur. Respiratory: Good air movement, otherwise clear to auscultation. Abdomen: Soft, nontender, nondistended, some central obesity. 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 Hyperkalemia. The patient did have some partial response with medical management inclusive of dextrose, insulin, calcium gluconate, Kayexalate. Serum potassium did come down to 6.3. With hemodialysis it is now down to 3.9. 2. End-stage renal disease. The patient, in theory is hemodialysis requiring. He frequently refuses hemodialysis and appears to remain fairly stable. He may consider stopping it. He was agreeable to hemodialysis today. 3. CODE STATUS. The patient does have a MOLST form in his chart that states he is DNR and DNI. The patient also states he is DNR and DNI and is not to have a feeding tube and so forth. We will need to determine if he truly wishes to stop hemodialysis entirely and be made comfort care. We will try to have discussion with family members. 4. Dtj-ndihlki-iukjjcnte diabetes. Patient has been refusing to eat and refusing medications. Blood sugar has been as low as 50. We are holding his basal bolus insulin. VS,Fishbone, I+O VS, Fishbone, I+O Laboratory Tests 02/09/19 07:26 Vital Signs Date Time Temp Pulse Resp B/P (MAP) Pulse Ox O2 Delivery O2 Flow Rate FiO2 02/09/19 16:00 2.0 02/09/19 15:38 97.8 85 20 128/72 (90) 99 Nasal Cannula 02/08/19 04:00 97 I&O- Last 24 Hours up to 6 AM 02/09/19 06:00 Intake Total 60 ml Output Total 1500 ml Balance -1440 ml CLARITZA VILLAFUERTE MD Feb 09, 2019 16:35
[2019-02-09 20:00] VITALS: BP 142/62
[2019-02-09] MEDS: LEVEMIR (INSULIN DETEMIR) 1 UNITS/0.01ML SC SCH (21:02)
[2019-02-10] VITALS: BP 123/66
[2019-02-10 05:30] VITALS: BP 156/82
[2019-02-10 06:30] LABS: CALCIUM LEVEL 8.3 MG/DL (8.8-10.2); CREATININE FOR GFR 3.28 MG/DL (0.70-1.30); GLOMERULAR FILTRATION RATE 19.3 (>35); POTASSIUM SERUM 4.7 MEQ/L (3.5-5.1)
[2019-02-10] MEDS: HumaLOG INSULIN (NovoLOG) PER UNIT SC SCH ×2 (07:30→12:00)
[2019-02-10 08:00] VITALS: BP 117/58
[2019-02-10] MEDS: IPRATROPIUM 0.5MG/ALBUTEROL 2.5MG INH SOL UD 3ML (DUONEB)(J7620) INH SCH (08:00)
[2019-02-10 09:16] VITALS: BP 117/58
[2019-02-10] MEDS: CitaloPRAM (CeleXA) 10 MG TABLET PO SCH (09:16)
[2019-02-10] MEDS: CARVedilol 6.25 MG TAB PO SCH (09:16)
[2019-02-10] MEDS: HEPARIN SOD (PORCINE) 5000 UNITS/ML VIAL SC SCH (09:17)
[2019-02-10] MEDS: PANTOPRAZOLE 40MG TAB (PROTONIX) PO SCH (09:17)
[2019-02-10] MEDS: predniSONE 10 MG TAB PO SCH (09:17)
[2019-02-10] MEDS: CLOPIDOGREL 75 MG TAB PO SCH (09:17)
[2019-02-10 12:00] VITALS: BP 121/67
--- NOTE | 2019-02-10 12:34 | IPN ---
DATE: 02/10/2019 Mr. Rodriguez is seen this morning on his bedside. He is feeling well and denies any acute problems. He has chronic dyspnea and remains on chronic oxygen due to hypoxemia. The patient denies any nausea or vomiting. He was dialyzed yesterday again which he tolerated well. PHYSICAL EXAMINATION: Temperature 99 degrees Fahrenheit, heart rate 64 per minute and respiratory rate 18 per minute. Blood pressure 117/58 mmHg and oxygen saturation 99% on 2 liters oxygen. His head is atraumatic. Neck is supple and jugular venous distention (JVD) not abnormally elevated. Internal jugular vein catheter on right side is present for dialysis. No oral thrush or ulcers noted. Heart: Sounds are regular. Lungs with scattered rhonchi and diminished breath sounds at dependent parts. Abdomen: Soft and nontender and bowel sounds are normal. Extremities: Without any cyanosis or clubbing. Neurologically he is at his baseline mentation. Today's labs show sodium 139, potassium 4.7, CO2 33, BUN 11 and creatinine 3.28. Glucose 120 and calcium 8.3. PROBLEM S: 1. End-stage renal disease: The patient is very well dialyzed as he received two dialysis treatments back to back. His next dialysis is to be scheduled for Thursday. 2. Congestive heart failure: Volume status is very well compensated and we have removed about 3 liters fluid since admission. No urgent intervention is needed. 3. Hyperkalemia. The patient was severely hyperkalemic due to multiple missed dialysis treatments on admission. Now his potassium level has corrected and the patient should continue with 2 grams potassium diet. I have also advised compliance with dialysis treatments. 4. Hypoxemia: This is a chronic issue and related to his chronic lung disease. His volume status is clinically very well compensated now and the patient remains on chronic oxygen 2 liters. 5. Anemia: His anemia has been stable and does not need any intervention. He will be followed up in his outpatient dialysis clinic. DISPOSITION: From a renal standpoint, the patient can be discharged and transferred back to long-term. He should come for his regular dialysis treatments three times a week every Thursday, Thursday and Thursday.
== END 2019-02-10 14:57 | DRG 640 ==
LOC: EDBD 15:33 → M ED 15:33 → M ED INP 18:31 → M PCU 19:59
PROVIDERS: ADMIT Internal Medicine; ATTEND Internal Medicine
PROC: 5A1D70Z Performance of Urinary Filtration, Intermittent, Less than 6 Hours Per Day (ICD-10-PCS; principal; 2019-02-08)
DX: E87.5 Hyperkalemia (principal); N18.6 End stage renal disease; I13.2 Hypertensive heart and chronic kidney disease with heart failure and with stage 5 chronic kidney disease, or end stage renal disease; J96.11 Chronic respiratory failure with hypoxia; I50.32 Chronic diastolic (congestive) heart failure; N25.81 Secondary hyperparathyroidism of renal origin; Z99.2 Dependence on renal dialysis; Z91.15 Patient's noncompliance with renal dialysis; E11.22 Type 2 diabetes mellitus with diabetic chronic kidney disease; J44.9 Chronic obstructive pulmonary disease, unspecified; Z99.81 Dependence on supplemental oxygen; I25.10 Atherosclerotic heart disease of native coronary artery without angina pectoris; E11.40 Type 2 diabetes mellitus with diabetic neuropathy, unspecified; Z89.411 Acquired absence of right great toe; Z89.412 Acquired absence of left great toe; Z66 Do not resuscitate; Z87.891 Personal history of nicotine dependence; Z79.4 Long term (current) use of insulin; Z79.52 Long term (current) use of systemic steroids; Z79.899 Other long term (current) drug therapy; Z79.891 Long term (current) use of opiate analgesic